=== PATIENT | female | born 1940 | race Caucasian/White ===

== ENCOUNTER 2023-05-17 10:32 | Outpatient (OUT) | payer MEDICARE, SELFPAY ==
[2023-05-17 11:11] LABS: Basophils Percent Auto 0.5 % (0.2-2.0); Eosinophils Absolute Auto 0.1 10^3/uL (0.0-0.7); Eosinophils Percent Auto 1.7 % (0.9-7.0); Hematocrit 39.9 % (36.0-48.0); Hemoglobin 13.2 g/dL (12.0-16.0); Immature Granulocytes Abs Auto 0.02 10^3/uL (0.00-0.03); Immature Granulocytes Pct Auto 0.3 % (0.0-0.5); Lymphocytes Absolute Auto 1.8 10^3/uL (1.2-3.8); Lymphocytes Percent Auto 22.9 % (20.5-60.0); Mean Corpuscular HGB Conc 33.1 g/dL (29.9-35.2); Mean Corpuscular Hemoglobin 32.1 pg (26.7-34.0); Mean Corpuscular Volume 97.1 fL (81.0-99.0); Mean Platelet Volume 10.4 fL (9.5-13.5); Monocytes Absolute Auto 0.5 10^3/uL (0.3-0.8); Monocytes Percent Auto 6.6 % (1.7-12.0); Neutrophils Absolute Auto 5.3 10^3/uL (1.4-6.5); Platelet Count 192 10^3/uL (150-450); Red Blood Count 4.11 10^6/uL (4.20-5.40); Red Cell Distribution Width 12.8 % (11.0-15.0); White Blood Count 7.8 10^3/uL (4.0-11.0)
[2023-05-17 13:13] LABS: Sodium 141 mmol/L (136-145)
[2023-05-17 13:14] LABS: Alanine Aminotransferase 30 U/L (14-59); Albumin Globulin Ratio 1.1; Alkaline Phosphatase 66 U/L (46-116); Anion Gap 14.5; Aspartate Amino Transferase 25 U/L (15-37); BUN Creatinine Ratio 29.5; Bilirubin Total 0.6 mg/dL (0.2-1.0); Calcium 9.3 mg/dL (8.5-10.1); Carbon Dioxide 27.4 mmol/L (21.0-32.0); Chloride 103 mmol/L (98-107); Estimated GFR (African America >60 (>=60); Estimated GFR (Non-African Ame >60 (>=60); Globulin 3.7 g/dL; Glucose 92 mg/dL (74-106); Potassium 3.9 mmol/L (3.5-5.1); Total Protein 7.7 g/dL (6.4-8.2)
[2023-05-17 13:15] LABS: Chol HDL Ratio 1.4; Cholesterol 122 mg/dL (<=200); HDL Cholesterol 89 mg/dL (40-60); Thyroid Stimulating Hormone 5.354 uIU/mL (0.358-3.740); Triglycerides 60 mg/dL (<=150)
== END 2023-05-17 10:33 | disposition home or self-care (01) ==
LOC: LAB 10:37
PROVIDERS: PCP Nurse Practitioner; Visit Provider Nurse Practitioner
DX: E03.9 Hypothyroidism, unspecified (principal); R53.1 Weakness; G20 Parkinson's disease; E78.00 Pure hypercholesterolemia, unspecified
CPT/HCPCS: 36415; 80053; 80061; 84439; 84443; 85025

== ENCOUNTER 2023-06-08 13:03 | Outpatient (REF) | payer MEDICARE, SELFPAY ==
[2023-06-08 13:20] LABS: Bilirubin Urine NEGATIVE (NEGATIVE); Blood Urine TRACE-I (NEGATIVE); Color Urine LT. YELLOW (YELLOW); Glucose Urine UA NEGATIVE (NEGATIVE); Ketones Urine NEGATIVE (NEGATIVE); Leukocyte Esterase Urine LARGE (NEGATIVE); Nitrite Urine POSITIVE (NEGATIVE); Protein Urine >=300 mg/dL (NEG/TRACE); pH Urine >=9.0 (5.0-9.0)
[2023-06-08 13:22] LABS: Clarity Urine SLIGHTLY CLOUDY (CLEAR)
== END 2023-06-08 13:04 | disposition home or self-care (01) ==
LOC: LAB 13:03
PROVIDERS: PCP Nurse Practitioner; Visit Provider Urology
DX: R39.9 Unspecified symptoms and signs involving the genitourinary system (principal)
CPT/HCPCS: 81003; 87086; 87150; 87186

== ENCOUNTER 2023-06-19 10:49 | Outpatient (OUT) | payer MEDICARE, SELFPAY ==
[2023-06-19 11:11] LABS: Hematocrit 38.6 % (36.0-48.0); Hemoglobin 12.8 g/dL (12.0-16.0); Mean Corpuscular HGB Conc 33.2 g/dL (29.9-35.2); Mean Corpuscular Hemoglobin 32.1 pg (26.7-34.0); Mean Corpuscular Volume 96.7 fL (81.0-99.0); Platelet Count 196 10^3/uL (150-450); Red Blood Count 3.99 10^6/uL (4.20-5.40); Red Cell Distribution Width 12.8 % (11.0-15.0); White Blood Count 6.6 10^3/uL (4.0-11.0)
[2023-06-19 12:03] LABS: Albumin Level 3.9 g/dL (3.4-5.0); Anion Gap 12.1; BUN Creatinine Ratio 23.4; Calcium 9.7 mg/dL (8.5-10.1); Carbon Dioxide 30.9 mmol/L (21.0-32.0); Chloride 101 mmol/L (98-107); Estimated GFR (African America >60 (>=60); Estimated GFR (Non-African Ame 57 (>=60); Glucose 101 mg/dL (74-106); Magnesium 1.3 mg/dL (1.8-2.4); Phosphorus 4.7 mg/dL (2.6-4.7); Sodium 140 mmol/L (136-145)
[2023-06-20 12:09] LABS: PTH, Intact 4 pg/mL (15-65)
== END 2023-06-19 10:50 | disposition home or self-care (01) ==
PROVIDERS: PCP Nurse Practitioner; Visit Provider Internal Medicine
DX: E83.51 Hypocalcemia (principal); E83.42 Hypomagnesemia; E55.9 Vitamin D deficiency, unspecified; E20.0 Idiopathic hypoparathyroidism; E87.6 Hypokalemia; N39.0 Urinary tract infection, site not specified
CPT/HCPCS: 36415; 80069; 82306; 83735; 83970; 85027

== ENCOUNTER 2023-06-28 09:53 | Outpatient (OUT) | payer MEDICARE, SELFPAY ==
[2023-06-28 12:53] LABS: Thyroid Stimulating Hormone 6.722 uIU/mL (0.358-3.740)
[2023-06-29 14:43] LABS: Free T4 1.01 ng/dL (0.76-1.46)
== END 2023-06-28 09:54 | disposition home or self-care (01) ==
LOC: LAB 09:55
PROVIDERS: PCP Nurse Practitioner; Visit Provider Nurse Practitioner
DX: E03.9 Hypothyroidism, unspecified (principal)
CPT/HCPCS: 36415; 84439; 84443

== ENCOUNTER 2023-09-25 11:45 | Outpatient (OUT) | payer MEDICARE, SELFPAY ==
[2023-09-25 13:21] LABS: Thyroid Stimulating Hormone 3.874 uIU/mL (0.358-3.740)
== END 2023-09-25 11:46 | disposition home or self-care (01) ==
LOC: LAB 11:48
PROVIDERS: PCP Nurse Practitioner; Visit Provider Nurse Practitioner
DX: E03.9 Hypothyroidism, unspecified (principal)
CPT/HCPCS: 36415; 84439; 84443

== ENCOUNTER 2024-02-27 13:20 | Outpatient (OUT) | payer MEDICARE, SELFPAY ==
[2024-02-27 14:00] LABS: Hemoglobin 12.1 g/dL (12.0-16.0); Mean Corpuscular HGB Conc 32.7 g/dL (29.9-35.2); Mean Corpuscular Hemoglobin 32.6 pg (26.7-34.0); Mean Corpuscular Volume 99.7 fL (81.0-99.0); Mean Platelet Volume 9.4 fL (9.5-13.5); Platelet Count 196 10^3/uL (150-450); Red Blood Count 3.71 10^6/uL (4.20-5.40); White Blood Count 9.9 10^3/uL (4.0-11.0)
[2024-02-27 14:07] LABS: Albumin Level 3.5 g/dL (3.4-5.0); BUN Creatinine Ratio 29.8; Calcium 9.3 mg/dL (8.5-10.1); Carbon Dioxide 29.1 mmol/L (21.0-32.0); Chloride 104 mmol/L (98-107); Estimated GFR (African America >60 (>=60); Estimated GFR (Non-African Ame 57 (>=60); Glucose 126 mg/dL (74-106); Magnesium 1.7 mg/dL (1.8-2.4); Phosphorus 3.6 mg/dL (2.6-4.7); Potassium 4.1 mmol/L (3.5-5.1); Sodium 141 mmol/L (136-145)
[2024-02-28 15:08] LABS: PTH, Intact 3 pg/mL (15-65)
== END 2024-02-27 13:21 | disposition home or self-care (01) ==
LOC: LAB 13:21
PROVIDERS: PCP Nurse Practitioner; Visit Provider Internal Medicine
DX: E55.9 Vitamin D deficiency, unspecified (principal); E20.0 Idiopathic hypoparathyroidism; E87.6 Hypokalemia
CPT/HCPCS: 36415; 80069; 82306; 83735; 83970; 85027

== ENCOUNTER 2024-04-16 12:25 | Outpatient (OUT) | payer MEDICARE, SELFPAY ==
[2024-04-16 13:35] LABS: Alanine Aminotransferase 33 U/L (14-59); Albumin Level 3.5 g/dL (3.4-5.0); Alkaline Phosphatase 62 U/L (46-116); Aspartate Amino Transferase 23 U/L (15-37); Bilirubin Direct 0.2 mg/dL (0.0-0.2); Bilirubin Total 0.6 mg/dL (0.2-1.0); Chol HDL Ratio 1.6; Cholesterol 127 mg/dL (<=200); Free T3 2.45 pg/mL (2.18-3.98); Globulin 3.5 g/dL; HDL Cholesterol 77 mg/dL (40-60); Thyroid Stimulating Hormone 7.837 uIU/mL (0.358-3.740); Triglycerides 98 mg/dL (<=150); VLDL CHOLESTEROL 19.6 mg/dL
[2024-04-16 13:58] LABS: Free T4 0.89 ng/dL (0.76-1.46)
[2024-04-16 16:58] LABS: Bilirubin Urine NEGATIVE (NEGATIVE); Blood Urine TRACE-I (NEGATIVE); Color Urine LT. YELLOW (YELLOW); Glucose Urine UA NEGATIVE (NEGATIVE); Ketones Urine NEGATIVE (NEGATIVE); Leukocyte Esterase Urine LARGE (NEGATIVE); Nitrite Urine NEGATIVE (NEGATIVE); Protein Urine NEGATIVE (NEG/TRACE); Urobilinogen Urine 0.2 EU/dL (0.2-1.0)
[2024-04-16 17:08] LABS: Urine Microscopic Indicated YES
[2024-04-16 17:09] LABS: Clarity Urine SLIGHTLY CLOUDY (CLEAR); RBC Urine 0-2 #/HPF (0-2); WBC Urine 75-100 #/HPF (NONE SEEN)
[2024-04-16 17:10] LABS: Bacteria Urine MODERATE #/HPF (NONE SEEN); Calcium Oxalate Crystals Urine RARE; Crystals Seen? Seen #/HPF (None Seen); Mucus Urine TRACE (NONE SEEN); Squamous Epithelial Cell Urine FEW #/LPF (NONE/RARE)
[2024-04-16 17:12] LABS: Cast Seen? NONE SEEN #/LPF (NONE SEEN); Urine Culture Indicated YES
[2024-04-16 17:28] LABS: Creatinine Urine Random 133.66 mg/dL (20.00-300.00); Microalbum Creatinine Ratio Ur 39.6 mg/g (0.0-29.9); Microalbumin Urine Random 5.3 mg/dL (<=30.0)
== END 2024-04-16 12:26 | disposition home or self-care (01) ==
PROVIDERS: PCP Nurse Practitioner; Visit Provider Nurse Practitioner
DX: E03.9 Hypothyroidism, unspecified (principal); I10 Essential (primary) hypertension; I25.10 Atherosclerotic heart disease of native coronary artery without angina pectoris; R82.90 Unspecified abnormal findings in urine
CPT/HCPCS: 36415; 80061; 80076; 81001; 82043; 82570; 84439; 84443; 84481; 87086; 87150; 87186

== ENCOUNTER 2024-05-06 14:27 | Outpatient (OUT) | payer MEDICARE, SELFPAY ==
[2024-05-06 15:27] LABS: Bilirubin Urine NEGATIVE (NEGATIVE); Blood Urine MODERATE (NEGATIVE); Clarity Urine SL CLOUDY (CLEAR); Color Urine BROWN (YELLOW); Glucose Urine UA NEGATIVE (NEGATIVE); Ketones Urine NEGATIVE (NEGATIVE); Leukocyte Esterase Urine MODERATE (NEGATIVE); Nitrite Urine NEGATIVE (NEGATIVE); Protein Urine TRACE mg/dL (NEG/TRACE); Specific Gravity Urine >=1.030 (1.005-1.025); pH Urine 5.5 (5.0-9.0)
[2024-05-06 16:34] LABS: Urine Microscopic Indicated YES
[2024-05-06 16:35] LABS: Bacteria Urine LARGE #/HPF (NONE SEEN); WBC Urine 50-75 #/HPF (NONE SEEN)
[2024-05-06 16:36] LABS: Calcium Oxalate Crystals Urine FEW; Cast Seen? SEEN #/LPF (NONE SEEN); Crystals Seen? Seen #/HPF (None Seen); Mucus Urine SMALL (NONE SEEN); Squamous Epithelial Cell Urine FEW #/LPF (NONE/RARE); Transitional Epi Cells Urine FEW #/LPF (NONE SEEN)
[2024-05-06 16:37] LABS: Hyaline Casts Urine RARE; Urine Culture Indicated ALREADY ORDERED
== END 2024-05-06 14:28 | disposition home or self-care (01) ==
LOC: LAB 14:29
PROVIDERS: PCP Nurse Practitioner; Visit Provider Nurse Practitioner
DX: R39.9 Unspecified symptoms and signs involving the genitourinary system (principal)
CPT/HCPCS: 81001; 87086; 87150; 87186

== ENCOUNTER 2024-06-13 13:57 | Outpatient (REF) | payer MEDICARE, SELFPAY ==
--- OUTSIDE RECORDS SUMMARY | 2024-06-13 09:10 | XMS_ITS | CCD ---
Author Organization [facility] Care Team Providers Care Health Inspector Name Role Phone DONNA FERRARI Unavailable Unavailable CARIE REINA Unavailable Unavailable Bean Cantu Primary Care Provider Puneet Raymundo Attending Provider [phone] Curtis Alcocer Attending Provider [phone] Pratik Tadeo Unavailable Unavailable Unavailable Giovanny, Aba Unavailable Carie Keith Unavailable Alyssa Weller Unavailable PRATIK TADEO Primary Care Physician Unavailable Unavailable MD Madhav Conrad Attending Provider [phone] Seema Sutherland Primary Care Provider Madhav Conrad Unavailable RODERICK KONG Attending Unavailable RODERICK KONG Admitting Unavailable RODERICK KONG Consulting Unavailable DR PRATIK TADEO Primary Care Unavailable GIOVANNY, ABA Attending Unavailable CARLYLE, DR PRATIK Meza Primary Care Unavailable GIOVANNY, ABA Consulting Unavailable GIOVANNY, ABA Admitting Unavailable GIOVANNY, ABA Attending Unavailable CARLYLE, DR PRATIK Meza Primary Care Unavailable GIOVANNY, ABA Consulting Unavailable GIOVANNY, ABA Admitting Unavailable AICHHOLZ, BILL SORTER SEEMA Consulting Unavailable CARLYLE, DR PRATIK Meza Primary Care Unavailable AICHHOLZ, BILL SORTER SEEMA Admitting Unavailable AICHHOLZ, BILL SORTER SEEMA Attending Unavailable ZOEY, DR JAYLEEN Manzo Consulting Unavailable FERRARI, DR DONNA Deleon Admitting Unavailable FERRARI, DR DONNA Deleon Attending Unavailable FERRARI, DR DONNA Deleon Consulting Unavailable AICHHOLZ, BILL SORTER SEEMA Primary Care Unavailable AICHHOLZ, BILL SORTER SEEMA Consulting Unavailable AICHHOLZ, BILL SORTER SEEMA Primary Care Unavailable AICHHOLZ, BILL SORTER SEEMA Admitting Unavailable AICHHOLZ, BILL SORTER SEEMA Attending Unavailable AICHHOLZ, BILL SORTER SEEMA Primary Care Unavailable GIOVANNY, ABA Attending Unavailable GIOVANNY, ABA Consulting Unavailable GIOVANNY, ABA Admitting Unavailable Aichholmoriah, Seema J Primary Care Provider [phone] MD Curtis Alcocer Attending Provider [phone] Koko, Seema J Primary Care Unavailable Madhav Conrad Attending Unavailable Madhav Conrad Admitting Unavailable Aichholmoriah, Seema J Primary Care Unavailable Curtis Alcocer Attending Unavailable Curtis Alcocer Admitting Unavailable Madhav Conrad Attending Unavailable Madhav Conrad Admitting Unavailable Aichholmoriah, Seema J Primary Care Unavailable Donna Ferrari Attending Unavailable FerrariDonna Referring Unavailable Naderer, Dr. Pratik Welsh Primary Care Unavai Donna Garibay Attending Unavailable FerrariDonna Referring Unavailable Naderer, Dr. Pratik Welsh Primary Care Unavajorge MOREIRAHSEEMA ISAAC Attending Unavailable GILLMORBERNARD Attending Unavailable COOK, Med P Attending Unavailable COOK, Med P Admitting Unavailable COOK, Med P Attending Unavailable COOK, Med P Referring Unavailable COOK, Med P Admitting Unavailable COOK, Med P Attending Unavailable COOK, Med P Referring Unavailable COOK, Med P Attending Unavailable COOK, Med P Referring Unavailable COOK, Med P Admitting Unavailable COOK, Med P Admitting Unavailable COOK, Med P Attending Unavailable COOK, Med P Attending Unavailable COOK, Med P Attending Unavailable COOK, Med P Referring Unavailable COOK, Med P Attending Unavailable Allergies Allergy Classification Reported Allergen(s) Allergy Type Date of Onset Reaction(s) Facility [facility]io[facility] (2 sources) [facility] (7 sources) Morphine Derivatives; Translations: [Morphine Derivatives] Allergy to drug (finding) Other -[facility] y [facility] DO Work Phone: (11 sources) fesoterodine Drug Allergy 4 dizziness/light hearded [facility] (13 sources) Morphine Drug Allergy 1 hallucinations, Hallucinating, Hallucinating, hallucinations [facility] (1 source) Morphine Drug Allergy [facility] (1 source) Morphine Drug Allergy 1 [facility] Medications Current Medications Medication Drug Class(es) Dates Sig (Normalized) Sig (Original) Acetaminophen (13 sources) Start: 07-16-2019 acetaminophen Refills(s) 0 Start Date: 07/16/19 Status: Ordered aMILoride hydrochloride 5 mg oral tablet (16 sources) Potassium-sparin g Diuretic Start: 01-06-2024 End: 03-07-2024 take 1 tablet by mouth once daily at mealtime Amiloride Active 0 .ROUTE .COMPLEX March 07, 2024 12:00pm TAKE 1 TABLET BY MOUTH WITH FOOD ONCE DAILY Start: 12-01-2022 End: 01-06-2024 amiloride 5 mg oral tablet R efills(s) 0 Start Date: 04/12/23 Status: Ordered atorvastatin 20 mg oral tablet (20 sources) HMG-CoA Reductase Inhibitor Start: 02-09-2018 take 1 tablet by mouth once daily atorvastatin 20 mg Tab 20 mg = 1 tab(s), Oral, Daily, Refills(s) 0 Start Date: 08/09/21 Status: Ordered calcitriol 0.0005 mg oral capsule (20 sources) Vitamin D3 Analog Start: 03-07-2024 End: 03-07-2024 take 0.5 ug by mouth once daily Calcitriol Active 0.5 MCG PO Daily March 07, 2024 12:00pm Start: 03-09-2021 End: 03-07-2024 take 0.25 ug by mouth once daily Calcitriol Discontinued 0.25 MCG PO Daily March 09, 2021 12:00am March 07, 2024 11:48am Start: 02-09-2018 End: 03-09-2021 take 1 tablet by mouth once daily in the morning Calcitriol Discontinued 1 TAB PO Every morning February 09, 2018 12:00am March 09, 2021 10:23am take 1 capsule by [facility] once daily Calcitriol 0.5 MCG TAKE 1 CAPSULE BY MOUTH ONCE DAILY for 90 Active take 1 capsule by mo ut once daily Calcitriol 0.25 MCG TAKE 1 CAPSULE BY MOUTH ONCE DAILY for 90 Active Calcium + D3 600-800 MG-UNIT (10 sources) take 600-800 tablets by mouth twice daily Calcium + D3 600-800 MG-UNIT 1 tablet with a meal Orally bid for 90 day(s) Active calcium carbonate 1500 mg / cholecalciferol 0.01 mg oral tablet (6 sources) Vitamin D Start: 02-18-20 End: 03-07-20 24 take 1 tablet by mouth once daily Calcium Carbonate-Vitamin D3 Active 1 TAB PO Daily March 07, 2024 12:00pm cefuroxime 250 mg oral tablet (4 sources) Cephalosporin Antibacterial Start: 12-01-19 take 1 tablet by mouth every twelve hours Cefuroxime Axetil 250 MG 1 tablet Orally every 12 hrs for 5 day(s) Nov, Active cephalexin 500 mg oral capsule (11 sources) Cephalosporin Antibacterial Start: 11-13-19 End: 11-18-19 24 take 1 capsule by mouth every twelve hours cephalexin 500 mg Cap 500 mg = 1 cap(s), Oral, q12hr, X 5 day(s), # 10 cap(s), Refills(s) 0, Pharmacy: [facility] [id number], 144, cm, 09/27/23 13:10:00 EST, Height/Length Dosing, 49, kg, 09/27/23 13:10:00 EST, Weight Dosing Start Date: 11/13/23 Stop Date: 11/18/23 Status: Ordered Start: 09-27-2023 take 1 capsule by [facility] twice daily Keflex 500 mg Cap 500 mg = 1 cap(s), Oral, BID, start one day prior to procedure., # 14 cap(s), Refills(s) 0, Pharmacy: [facility] [id number], 144, cm, 09/27/23 13:10:00 EST, Height/Length Dosing, 49, kg, 09/27/23 13:10:00 EST, Weight Dosing Start Date: 09/27/23 Status: Ordered Start: 08-16-2023 take 1 capsule by [facility] twice daily Keflex 500 mg Cap 500 mg = 1 cap(s), Oral, BID, # 14 cap(s), Refills(s) 0, Pharmacy: [facility] [id number], 144, cm, 08/16/23 10:03:00 EDT, Height/Length Dosing, 49, kg, 08/16/23 10:03:00 EDT, Weight Dosing Start Date: 08/16/23 Status: Ordered Start: 05-19-2022 End: 05-29-2022 take 1 capsule by mouth twice daily Keflex 500 mg Cap 500 mg = 1 cap(s), Oral, BID, X 10 day(s), # 20 cap(s), Refills(s) 0, Pharmacy: [facility] [id number], 144, cm, 05/19/22 14:08:00 EDT, Height/Length Dosing, 49, kg, 05/11/22 11:21:00 EDT, Weight Dosing Start Date: 05/19/22 Stop Date: 05/29/22 Status: Ordered Start: 05-11-2022 take 1 capsule by [facility] twice daily Keflex 500 mg Cap 500 mg = 1 cap(s), Oral, BID, Pt. to start 3 days prior to bladder botox injections, # 14 cap(s), Refills(s) 0, Pharmacy: [facility] [id number], 144, cm, 05/11/22 11:21:00 EDT, Height/Length Dosing, 49, kg, 05/11/22 11:21:00 EDT, Weight Dosing Start Date: 05/11/22 Status: Ordered ciprofloxacin 500 mg oral tablet (3 sources) Quinolone Antimicrobial Start: 11-13-2023 Cipro 500 mg Tab 500 mg = 1 tab(s), Oral, BID, Take twice daily x5 days starting the day prior to the procedure, # 10 tab(s), Refills(s) 0, Pharmacy: [facility] [id number], 144, cm, 09/27/23 13:10:00 EST, Height/Length Dosing, 49, kg, 09/27/23 13:10:00 EST, Weight Dosing Start Date: 11/13/23 Status: Ordered diclofenac sodium 0.01 mg/mg topical gel (11 sources) Nonsteroidal Anti-inflammatory Drug Start: 03-07-2024 Diclofenac Sodium (Voltaren Arthritis Pain) 1 % gel Active 2 GM TOPICAL As Directed May 9th, 2024 12:00am Voltaren 1 % as directed Externally Active gabapentin 100 mg oral capsule (20 sources) Anti-epileptic Agent Start: 03-07-2024 take 300 mg by mouth twice daily Gabapentin Active 300 MG PO Twice daily March 07, 2024 11:46am Start: 02-17-2021 End: 03-07-2024 gabapentin 100 mg Cap Refill s(s) 0 Start Date: 05/05/21 Status: Ordered take [address] [facility] in the morning, then take 2 capsules by mouth twice daily in the evening Gabapentin 300 MG 1 CAPSULE IN AM, 2 CAPSULES IN PM Orally TWICE A DAY Active take 2 capsules by m outh every twelve hours Gabapentin 100 MG 2 capsule Orally TWICE A DAY Active hydrOXYzine pamoate 25 mg oral capsule (20 sources) Antihistamine Start: 03-10-2021 End: 03-07-2024 hydrOXYzine pamoate 25 mg Cap Refills(s) 0 Start Date: 05/05/21 Status: Ordered Start: 03-02-2018 End: 02-17-2021 take 25 mg by mouth every six hours Hydroxyzine Pamoate Discontinued 25 MG PO Q6H 60 14 March 02, 2018 12:00am February 17, 2021 9:58am Start: 02-24-2018 End: 03-02-2018 Hydroxyzine Pamoate Disconti nued 0 .ROUTE .COMPLEX February 24, 2018 12:00am March 02, 2018 1:58pm 1 or 2 p.o. every 4-6 hours as needed muscle spasms levothyroxine sodium 0.05 mg oral tablet (20 sources) l-Thyroxine Start: 05-05-2021 take 1 tablet by mouth once daily levothyroxine 50 mcg (0.05 mg) Tab 50 mcg = 1 tab(s), Oral, Daily, # 60 tab(s), Refills(s) 0 Start Date: 05/05/21 Status: Ordered Start: 02-17-2021 take 1 ug by mouth o nce daily in the morning Levothyroxine Active 1 MCG PO Every morning February 17, 2021 9:58am Start: 02-09-2018 End: 02-17-2021 take 50 ug by mouth once daily in the morning Levothyroxine Active 50 MCG PO Every morning February 17, 2021 12:00am magnesium oxide 500 mg oral tablet (16 sources) Start: 02-17-2021 End: 03-07-2024 take 500 mg by mouth once daily Magnesium Oxide Active 500 MG PO Daily March 07, 2024 12:01pm methenamine hippurate 1000 mg oral tablet (7 sources) Start: 08-16-2023 take 0.5 g by mouth once daily methenamine hippurate 1 g oral tablet 0.5 gm = 0.5 tab(s), Oral, Daily, # 30 tab(s), Refills(s) 11, Pharmacy: [facility] [id number], 144, cm, 08/16/23 10:03:00 EDT, Height/Length Dosing, 49, kg, 08/16/23 10:03:00 EDT, Weight Dosing Start Date: 08/16/23 Status: Ordered Start: 04-12-2023 take 0.5 g by mouth once daily methenamine hippurate 1 g oral tablet 0.5 gm = 0.5 tab(s), Oral, Daily Start Date: 04/12/23 Status: Ordered Start: 01-31-2022 take 1 tablet by sumi once daily methenamine mandelate 0.5 g oral tablet 0.5 gm = 1 tab(s), Oral, Daily, # 90 tab(s), Refills(s) 3, Pharmacy: [facility] [id number], 144, cm, 12/27/21 11:31:00 EST, Height/Length Dosing, 49.1, kg, 12/27/21 11:31:00 EST, Weight Dosing Start Date: 01/31/22 Status: Ordered Multi Vitamin Daily - (4 sources) take 1 tablet by mouth once daily Multi Vitamin Daily - 1 tablet Orally Once a day Active Multi Vitamin+ (13 sources) Start: 05-05-20 Multi Vitamin+ Daily, Refill(s) 0 Start Date: 05/05/21 Status: Ordered nitrofurantoin, macrocrystals 25 mg / nitrofurantoin, monohydrate 75 mg oral capsule (4 sources) Nitrofuran Antibacterial Start: 05-05-20 take 1 capsule by mouth twice daily Macrobid 100 mg Cap 100 mg = 1 cap(s), Oral, BID, # 14 cap(s), Refills(s) 0, Pharmacy: [id number], 144, cm, 05/05/21 13:13:00 EDT, Height/Length Dosing, 43.1, kg, 05/05/21 13:13:00 EDT, Weight Dosing Start Date: 05/05/21 Status: Ordered nitroglycerin 0.4 mg sublingual tablet (17 sources) Nitrate Vasodilator Start: 02-18-20 Nitroglycerin Active 0.4 MG SUBLINGUAL every 5 to 15 minutes February 17, 2021 12:00am Start: 02-09-2018 End: 03-02-2018 Nitroglycerin Discontinued 0 .4 MG SUBLINGUAL every 5 to 15 minutes February 09, 2018 12:00am March 02, 2018 1:59pm One Daily Adults 50+ (6 sources) One Daily Adults 50+ Active polyethylene glycol 3350 99912 mg powder for oral solution (5 sources) Osmotic Laxative Start: 02-18-20 Polyethylene Glycol 3350 (Miralax) 17 gram/dose Powder Active 17 GM PO Daily February 17, 2021 12:00am microencapsulated potassium chloride 20 meq extended release oral tablet (11 sources) Start: 03-24-20 take 1 tablet by mouth every twenty-four hours Potassium Chloride ER 20 MEQ 1 tablet with food Orally Once a day for 90 day(s) February, Active Start: 03-10-2021 End: 03-07-2024 take 20 mEq by mouth once daily Potassium Chloride Act ave 20 MEQ PO Daily March 07, 2024 12:01pm silver sulfADIAZINE 10 mg/ml topical cream (1 source) Sulfonamide Antibacterial Start: 10-18-2021 Silver sulfADIAZINE 1 % 1 application Externally Once a day for 7 days Sep, Active trihexyphenidyl hydrochloride 2 mg oral tablet (20 sources) Start: 05-05-2021 trihexyphenidy l 2 mg Tab Refills(s) 0 Start Date: 05/05/21 Status: Ordered Start: 02-09-2018 take 4 mg by mouth twice daily Trihexyphenidyl Active 4 MG PO Twice daily February 09, 2018 12:00am take 2 tablets by [facility] once daily Trihexyphenidyl HCl - 2 MG Oral Tablet TAKE 2 TABLET Daily Quantity: 0 Refills: 0 Ordered: 29-Dec-2021 DO Active Completed/Discontinued Medications Medication Drug Class(es) Dates Sig (Normalized) Sig (Original) acetaminophen 325 mg / oxyCODONE hydrochloride 5 mg oral tablet (13 sources) Opioid Agonist Start: 03-10-2021 End: 03-07-2024 take 1 tablet by mouth every four hours Oxycodone-Acetamino phen (Percocet) 5-325 mg Tablet Discontinued 1 - 2 TAB PO Q4H 40 March 10, 2021 March 07, 2024 11:47am Start: 03-02-2018 End: 02-17-2021 take 1 tablet by mouth every four hours Oxycodone-Acetaminophen Discontinued 1 T AB PO Q4H 30 March 02, 2018 12:00am February 17, 2021 10:01am Start: 02-24-2018 End: 03-02-2018 Oxycodone-Acetaminophen Disc ontinued 0 .ROUTE .COMPLEX February 24, 2018 March 02, 2018 1:59pm 1 or 2 p.o. every 4-6 hour his as needed pain amoxicillin 500 mg oral capsule (3 sources) Penicillin-class Antibacterial Start: 03-08-2021 End: 03-07-2024 take 500 mg by mouth twice daily Amoxicillin Discontinued 500 MG PO Twice daily March 08, 2021 12:00am March 07, 2024 11:46am aspirin 81 mg chewable tablet (20 sources) Platelet Aggregation Inhibitor, Nonsteroidal Anti-inflammatory Drug Start: 03-10-2021 End: 03-07-2024 take 81 mg by mouth twice daily Aspirin Discontinued 81 MG PO Twice daily 28 March 10, 2021 12:00am March 07, 2024 11:46am Start: 03-03-2021 take 1 tablet by sumi th every twenty-four hours Aspirin 81 MG 1 tablet Orally Once a day for 14 day(s) February, Active Start: 02-17-2021 take 81 mg by mouth once daily at bedtime Aspirin Active 81 MG PO Daily at bedtime February 17, 2021 9:57am Start: 07-16-2019 take 81 mg by mouth once daily aspirin 81 mg, Oral, Daily, Refills(s) 0 Start Date: 07/16/19 Status: Ordered Start: 02-24-2018 End: 02-17-2021 take 81 mg by mouth twice daily Aspirin Discontinued 8 1 MG PO Twice daily 40 March 02, 2018 12:00am February 17, 2021 9:58am Start: 02-09-2018 End: 02-24-2018 take 81 mg by mouth at bedtime Aspirin Discontinued 81 MG PO Bedtime February 09, 2018 12:00am February 24, 2018 7:57am benztropine mesylate 0.5 mg oral tablet (5 sources) Anticholinergic, Antihistamine Start: 02-09-2018 End: 02-17-2021 take 0.5 mg by mouth twice daily Benztropine Discontinued 0.5 MG PO Twice daily February 09, 2018 12:00am February 17, 2021 9:56am cholecalciferol 0.025 mg oral tablet (15 sources) Vitamin D Start: 03-02-2018 End: 02-17-2021 take 2 tablets by mouth once daily Cholecalciferol (Vitamin D3) (Vitamin D3) 1,000 unit Tablet Discontinued 2000 UNIT PO Daily 60 March 02, 2018 12:00am February 17, 2021 9:57am Start: 02-09-2018 End: 03-02-2018 take 1 tablet by mouth once daily Cholecalciferol (Vitamin D3) (Vitamin D3) 2,000 unit Tablet Discontinued 2000 UNIT PO Daily 0 February 24, 2018 8:00am March 02, 2018 1:57pm hydroxychloroquine sulfate 200 mg oral tablet (1 source) Antimalarial, Antirheumatic Agent take 1 tablet by mouth once daily at mealtime Hydroxychloroquine Sulfate 200 MG Oral Tablet TAKE 1 TABLET DAILY WITH FOOD. Quantity: 0 Refills: 0 Ordered: 29-Dec-2021 DO Active lisinopril 2.5 mg oral tablet (5 sources) Angiotensin Converting Enzyme Inhibitor Start: 2017 End: 2017 take 2.5 mg by mouth once daily at bedtime Lisinopril Discontinued 2.5 MG PO Daily at bedtime February 09, 2018 12:00am March 02, 2018 1:56pm 24 hr metoprolol succinate 25 mg extended release oral tablet (10 sources) beta-Adrenergic Hay Start: 2017 End: 2020 take 12.5 mg by mouth at bedtime Metoprolol Succinate Discontinued 12.5 MG PO Bedtime 15 March 02, 2018 12:00am February 17, 2021 10:01am Start: 02-09-2018 End: 03-02-2018 take 25 mg by mouth at bedtime Metoprolol Succinate Di scontinued 25 MG PO Bedtime February 09, 2018 12:00am March 02, 2018 1:59pm omeprazole 40 mg delayed release oral capsule (6 sources) Proton Pump Inhibitor Start: 08-02-2022 End: 03-07-2024 take 40 mg by mouth once daily Omeprazole Discontinued 40 MG PO Daily August 02, 2022 12:00am March 07, 2024 11:47am Omeprazole Activ e ondansetron 4 mg disintegrating oral tablet (5 sources) Serotonin-3 Receptor Antagonist Start: 03-02-2018 End: 02-17-2021 take 4 mg by mouth every six hours Ondansetron Discontinued 4 MG PO Q6H 40 March 02, 2018 12:00am February 17, 2021 10:01am pramipexole dihydrochloride 0.125 mg oral tablet (7 sources) Nonergot Dopamine Agonist take 1 tablet by mouth three times daily Pramipexole Dihydrochloride 0.125 MG Oral Tablet TAKE 1 TABLET 3 TIMES DAILY. Quantity: 0 Refills: 0 Ordered: 29-Dec-2021 DO Active predniSONE 5 mg oral tablet (15 sources) Start: 02-17-2021 End: 03-07-2024 take 5 mg by mouth once daily Prednisone Discontinued 5 MG PO Daily February 17, 2021 12:00am March 07, 2024 11:48am take 1 tablet by mouth every oth er day predniSONE 5 MG 1 tablet Orally EVERY OTHER DAY Not-Taking vitamin b12 0.5 mg oral tablet (10 sources) Vitamin B12 Start: 03-02-2018 End: 02-17-2021 take 1 tablet by mouth once daily Cyanocobalamin (Vitamin B-12) (Vitamin B-12) 500 mcg Tablet Discontinued 500 MCG PO Daily March 02, 2018 12:00am February 17, 2021 9:58am Start: 02-09-2018 End: 03-02-2018 take 4 tablets by mouth once daily Cyanocobalamin (Vitamin B-12) (Vitamin B-12) 100 mcg Tablet Discontinued 400 MCG PO Daily February 09, 2018 12:00am March 02, 2018 1:58pm Problems Active Problems Problem Classification Problem Date Documented Da te Episodic/Chronic Abdominal pain (17 sources) Flank pain; Translations: [Unspecified abdominal pain] Onset: 04-20-2022 07-04-2019 Episodic Acute myocardial infarction (13 sources) Myocardial infarction 07-04-2019 Chronic Administrative/social admission (5 sources) Other reduced mobility; Translations: [Impaired mobility and activities of daily living] 04-16-2018 Episodic Calculus of urinary tract (13 sources) Kidney stone 04-27-2020 Episodic Coronary atherosclerosis and other heart disease (18 sources) Coronary arteriosclerosis; Translations: [Atherosclerotic heart disease of [place] coronary artery without angina pectoris] Onset: 03-24-2022 04-16-2018 Chronic Coronary atherosclerosis and other heart disease (11 sources) Past history of procedure; Translations: [Percutaneous transluminal coronary angioplasty status] Onset: 06-16-2022 03-08-2021 Episodic Deficiency and other anemia (5 sources) Anemia; Translations: [Anemia, unspecified] 04-16-2018 Episodic Disorders of lipid metabolism (14 sources) Hyperlipidemia; Translations: [Hyperlipidemia, unspecified] Onset: 03-24-2022 04-16-2018 Chronic Essential hypertension (5 sources) Hypertensive disorder; Translations: [Essential (primary) hypertension] 04-16-2018 Chronic Fluid and electrolyte disorders (12 sources) Hypokalemia; Translations: [Hypokalemia] Onset: 03-23-2022 Resolved: 03-24-2022 Episodic Gastritis and duodenitis (4 sources) Gastritis; Translations: [Gastritis, unspecified, without bleeding] Episodic Gastrointestinal hemorrhage (10 sources) Rectal hemorrhage; Translations: [Hemorrhage of anus and rectum] Episodic Genitourinary symptoms and ill-defined conditions (20 sources) Incontinence without sensory awareness; Translations: [Urge incontinence] Onset: 05-11-2022 Chronic Genitourinary symptoms and ill-defined conditions (20 sources) Microscopic hematuria; Translations: [Asymptomatic microscopic hematuria] Onset: 05-11-2022 Episodic Nonspecific chest pain (4 sources) Chest pain, unspecified; Translations: [Chest pain] Onset: 01-29-2018 03-08-2021 Episodic Nutritional deficiencies (17 sources) Vitamin D deficiency; Translations: [Vitamin D deficiency, unspecified] Onset: 09-02-2021 Resolved: 03-24-2022 Chronic Osteoarthritis (20 sources) Osteoarthritis; Translations: [Unspecified osteoarthritis, unspecified site] Onset: 09-07-2021 Resolved: 09-07-2021 Chronic Other and ill-defined cerebrovascular disease (1 source) Cerebrovascular disease, unspecified; Translations: [CEREBROVASCULAR DISEASE UNSPECIFIED] Onset: 03-24-2022 Chronic Other and unspecified benign neoplasm (10 sources) History of polyp of colon; Translations: [Personal history of colonic polyps] Episodic Other circulatory disease (5 sources) History of cerebrovascular accident; Translations: [Personal history of transient ischemic attack (TIA), and cerebral infarction without residual deficits] 04-16-2018 Episodic Other connective tissue disease (13 sources) History of total knee arthroplasty; Translations: [Presence of right artificial knee joint] 03-10-2021 Chronic Other connective tissue disease (10 sources) History of left total knee replacement; Translations: [Presence of left artificial knee joint] Chronic Other connective tissue disease (1 source) Presence of left artificial knee joint Onset: 09-07-2021 Resolved: 09-07-2021 Chronic Other diseases of bladder and urethra (20 sources) Overactive bladder 08-26-2020 Chronic Other diseases of bladder and urethra (3 sources) Detrusor overactivity; Translations: [Overactive bladder] Onset: 08-16-2023 Chronic Other endocrine disorders (11 sources) Idiopathic hypoparathyroidism; Translations: [Idiopathic hypoparathyroidism] 03-07-2024 Chronic Other endocrine disorders (3 sources) Idiopathic hypoparathyroidism; Translations: [IDIOPATHIC HYPOPARATHYROIDISM] Onset: 09-02-2021 Resolved: 03-24-2022 Chronic Other gastrointestinal disorders (10 sources) Diarrhea; Translations: [Diarrhea, unspecified] Episodic Other gastrointestinal disorders (10 sources) Constipation; Translations: [Constipation, unspecified] Episodic Other gastrointestinal disorders (1 source) Other specified symptoms and signs involving the digestive system and abdomen Episodic Other injuries and conditions due to external causes (7 sources) At risk for falls ; Translations: [History of fall] Episodic Other nervous system disorders (5 sources) Abnormal gait; Translations: [Unspecified abnormalities of gait and mobility] 04-16-2018 Episodic Other nervous system disorders (5 sources) Postoperative pain ; Translations: [Other acute postprocedural pain] 04-16-2018 Episodic Other nervous system disorders (5 sources) Tremor; Translations: [Tremor, unspecified] 04-16-2018 Episodic Other non-traumatic joint disorders (10 sources) Knee pain; Translations: [Pain in right knee] Episodic Other nutritional; endocrine; and metabolic disorders (12 sources) Hypocalcemia; Translations: [Hypocalcemia] Onset: 03-22-2022 Chronic Other nutritional; endocrine; and metabolic disorders (11 sources) Hypomagnesemia; Translations: [Hypomagnesemia] 03-07-2024 Chronic Other nutritional; endocrine; and metabolic disorders (6 sources) Hypocalcemia; Translations: [HYPOCALCEMIA] Onset: 09-02-2021 Resolved: 03-24-2022 Chronic Other nutritional; endocrine; and metabolic disorders (6 sources) Hypomagnesemia; Translations: [Disorders of magnesium metabolism] Onset: 09-02-2021 Resolved: 03-24-2022 Chronic Other nutritional; endocrine; and metabolic disorders (1 source) Lipoprotein deficiency; Translations: [LIPOPROTEIN DEFICIENCY] Onset: 06-16-2022 Chronic Other nutritional; endocrine; and metabolic disorders (10 sources) Overweight; Translations: [Overweight] Episodic Parkinson's disease (1 source) Parkinson's disease Onset: 01-29-2018 Parkinson`s disease (8 sources) Parkinson's disease; Translations: [Paralysis agitans] Onset: 03-24-2022 Chronic Residual codes; unclassified (5 sources) Patient encounter status; Translations: [Encounter for prophylactic measures, unspecified] 04-16-2018 Episodic Residual codes; unclassified (7 sources) Body mass index 20-24 - normal; Translations: [Body Mass Index between 19-24, adult] Episodic Residual codes; unclassified (13 sources) H/O: anticoagulant therapy 08-26-2020 Episodic Residual codes; unclassified (1 source) Early satiety Episodic Rheumatoid arthritis and related disease (7 sources) Rheumatoid arthritis; Translations: [Rheumatoid arthritis] Chronic Thyroid disorders (20 sources) Hypothyroidism; Translations: [Hypothyroidism, unspecified] Onset: 07-16-2022 04-16-2018 Chronic Unclassified (2 sources) Chest pain, unspecified / R07.9(ICD-9) Onset: 01-29-2018 Unclassified (1 source) 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 / I25.10(ICD-9) Onset: 01-29-2018 Unclassified (1 source) Pure hypercholesterolemia, unspecified / E78.00(ICD-9) Onset: 01-29-2018 Unclassified (1 source) Family hx of ischem heart dis and oth dis of the circ sys / Z82.49(ICD-9) Onset: 01-29-2018 Unclassified (1 source) Other forms of dyspnea / R06.09(ICD-9) Onset: 01-29-2018 Unclassified (1 source) Coronary angioplasty status / Z98.61(ICD-9) Onset: 01-29-2018 Unclassified (13 sources) Asymptomatic microscopic hematuria 08-26-2020 Unclassified (13 sources) Long-term current use of aspirin 10-14-2020 Unclassified (1 source) Pain in right foot; Translations: [Pain in right foot] Onset: 07-05-2023 Unclassified (1 source) Encounter for preprocedural laboratory examination; Translations: [Encounter for preprocedural laboratory examination] Onset: 07-29-2022 Urinary tract infections (20 sources) Urinary tract infectious disease; Translations: [Urinary tract infection, site not specified] Onset: 05-11-2022 Episodic Past or Other Problems Problem Classification Problem Date Documented Da te Episodic/Chronic Conditions associated with dizziness or vertigo (4 sources) Dizziness and giddiness; Translations: [DIZZINESS AND GIDDINESS] Onset: 07-11-2022 Episodic Neoplasms of unspecified nature or uncertain behavior (1 source) Neoplasm of unspecified behavior of bone, soft tissue, and skin Onset: 10-18-2021 Resolved: 10-18-2021 Episodic Other aftercare (1 source) assisted (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 of aspirin; Translations: [SHELTER CURRENT USE OF ASPIRIN] Onset: 03-24-2022 Episodic Other aftercare (1 source) Other termite control servicer (current) drug therapy; Translations: [OTH SHELTER CURRENT DRUG THERAPY] Onset: 03-24-2022 Episodic Other gastrointestinal disorders (1 source) Other constipation; Translations: [OTHER CONSTIPATION] Onset: 04-22-2022 Episodic Residual codes; unclassified (4 sources) Early satiety; Translations: [Early satiety] Onset: 08-02-2022 Episodic Unclassified (7 sources) Never smoked tobacco; Translations: [Never a smoker] Results Test Name Value Interpretation Reference Range Facility Lab Reportson 04-11-2024 Lab Reports [id number] [facility] Ambulatory Visit Summaryon 0 04-10-2024 Ambulatory Visit Summary NARCISO VELASQUEZ :1940 Visit Date:04/10/2024 Ambulatory Visit Instructions Your Diagnosis Urge incontinence Incontinence without sensory awareness OAB (overactive bladder) Recurrent UTI Your Care Team Attending Physician - Med MENA MD Primary Care Physician - PRATIK TADEO MD This Is Your Medications List Contact prescribing physician if questions or concerns acetaminophen amiloride (amiloride 5 mg oral tablet) aspirin atorvastatin (atorvastatin 20 mg Tab) gabapentin (gabapentin 100 mg Cap) hydrOXYzine (hydrOXYzine pamoate 25 mg Cap) levothyroxine (levothyroxine 50 mcg (0.05 mg) Tab) multivitamin (Multi Vitamin+) trihexyphenidyl (trihexyphenidyl 2 mg Tab) [Image Removed: STOP]Stop taking these medications cephalexin (Keflex 500 mg Cap) ciprofloxacin (Cipro 500 mg Tab) Procedures Performed Knee replacement (04/05/2021), Appendectomy, Bilateral tubal ligation, Colonoscopy, Excision of cataract, Hysterectomy, Knee replacement. Discharge Vitals Height 144 cm Height 57 in Weight 49 kg Weight 107.8 lb BMI 23.63 What to do next Scheduled Follow-Up Appointments Monday 1:00 PM EST With: Med MENA MD Where: [facility] Patient Educationon 04-10-20 Patient Education Urology Urinary Incontinence Urinary incontinence refers to a condition in which a person is unable to control where and when to pass urine. A person with this condition will urinate involuntarily. This means that the person urinates when he or she does not mean to. What are the causes? This condition may be caused by: ? Medicines. ? Infections. ? Constipation. ? Overactive bladder muscles. ? Weak bladder muscles. ? Weak pelvic floor muscles. These muscles provide support for the bladder, intestine, and, in women, the uterus. ? Enlarged prostate in men. The prostate is a gland near the bladder. When it gets too big, it can pinch the urethra. With the urethra blocked, the bladder can weaken and lose the ability to empty properly. ? Surgery. ? Emotional factors, such as anxiety, stress, or post-traumatic stress disorder (PTSD). ? Spinal cord injury, nerve injury, or other neurological conditions. ? Pelvic organ prolapse. This happens in women when organs move out of place and into the vagina. This movement can prevent the bladder and urethra from working properly. What increases the risk? The following factors may make you more likely to develop this condition: ? Age. The older you are, the higher the risk. ? Obesity. ? Being physically inactive. ? and childbirth. ? Menopause. ? Diseases that affect the nerves or spinal cord. ? Long-term, or chronic, coughing. This can increase pressure on the bladder and pelvic floor muscles. What are the signs or symptoms? Symptoms may vary depending on the type of urinary incontinence you have. They include: ? A sudden urge to urinate, and passing urine involuntarily before you can get to a bathroom (urge incontinence). ? Suddenly passing urine when doing activities that force urine to pass, such as coughing, laughing, exercising, or sneezing (stress incontinence). ? Needing to urinate often but urinating only a small amount, or constantly dribbling urine (overflow incontinence). ? Urinating because you cannot get to the bathroom in time due to a physical disability, such as arthritis or injury, or due to a communication or thinking problem, such as Alzheimer's disease (functional incontinence). How is this diagnosed? This condition may be diagnosed based on: ? Your medical history. ? A physical exam. ? Tests, such as: ? Urine tests. ? X-rays of your kidney and bladder. ? Ultrasound. ? CT scan. ? Cystoscopy. In this procedure, a health care provider inserts a tube with a light and camera (cystoscope) through the urethra and into the bladder to check for problems. ? Urodynamic testing. These tests assess how well the bladder, urethra, and sphincter can store and release urine. There are different types of urodynamic tests, and they vary depending on what the test is measuring. To help diagnose your condition, your health care provider may recommend that you keep a log of when you urinate and how much you urinate. How is this treated? Treatment for this condition depends on the type of incontinence that you have and its cause. Treatment may include: ? Lifestyle changes, such as: ? Quitting smoking. ? Maintaining a healthy weight. ? Staying active. Try to get 150 minutes of moderate-intensity exercise every week. Ask your health care provider which activities are safe for you. ? Eating a healthy diet. ? Avoid high-fat foods, like fried foods. ? Avoid refined carbohydrates like white bread and white rice. ? Limit how much alcohol and caffeine you drink. ? Increase your fiber intake. Healthy sources of fiber include beans, whole grains, and fresh fruits and vegetables. ? Behavioral changes, such as: ? Pelvic floor muscle exercises. ? Bladder training, such as lengthening the amount of time between bathroom breaks, or using the bathroom at regular intervals. ? Using techniques to suppress bladder urges. This can include distraction techniques or controlled breathing exercises. ? Medicines, such as: ? Medicines to relax the bladder muscles and prevent bladder spasms. ? Medicines to help slow or prevent the growth of a man's prostate. ? Botox injections. These can help relax the bladder muscles. ? Treatments, such as: ? Using pulses of electricity to help change bladder reflexes (electrical nerve stimulation). ? For women, using a manager medical device to prevent urine leaks. This is a small, tampon-like, disposable device that is inserted into the urethra. ? Injecting collagen or carbon beads (bulking agents) into the urinary sphincter. These can help thicken tissue and close the bladder opening. ? Surgery. Follow these instructions at home: Lifestyle ? Limit alcohol and caffeine. These can fill your bladder quickly and irritate it. ? Keep yourself clean to help prevent odors and skin damage. Ask your health care provider about special skin creams and cleansers that can protect the skin from urine. ? (more content not included)... Normal [facility] Urology Office/Clinic Noteon 04-10-2024 Urology Office/Clinic Note Chief Complaint follow up to botox [facility] Staff 83 year old female here for follow up to botox done 02/26/24 Previous Dx: Urge incontinence, Incontinence without sensory awareness, OAB, Recurrent uti Dysuria: no Incomplete bladder emptying: no Hematuria: no Frequency: no Urgency: no Nocturia: no Stream:good strong stream Leaking: only at night Post void dripping: no Wearing pads/ Depends: wears a liner during the day and depends during the night Urge incontinence: mild dribbling- better sine botox Stress incontinence: no Incontinence without Sensory Awareness: severe at times only at night, states she will go several days without leaking and then will soak through her depends. Abdominal pain: no Flank pain: no Sexual complaints:no History of Present Illness Tests reviewed: reviewed UA. I have reviewed the previous health record information and history for this patient from Dr. Mena. I have reviewed and verified the staff HPI to be accurate for this encounter. There have been no associated fever, chills, flank pain, or blood in the urine. Denies any urinary infections since last encounter. Review of Systems PHQ Score Initial Depression Screen Score: 0 SCORE ROS - Provider Constitutional: denies weight loss, denies hot flashes. Eyes: denies eye problems. Gastrointestinal: denies nausea, denies vomiting. Cardiovascular: denies chest pain or angina. Integumentary: no dryness Musculoskeletal: denies musculoskeletal symptoms. ENMT: denies otolaryngeal symptoms. Respiratory: no shortness of breath. Heme/Lymph: denies easy bleeding tendency, denies easy bruising tendency. Psychiatric: no confusion, no anxiety. Genitourinary: See HPI. Physical Exam Vitals & Measurements HT: 57 in HT: 144 cm WT: 49 kg WT: 107.8 lb BMI: 23.63 General Appearance: alert , no acute distress, well nourished, well developed female. Assessment/Plan Portions of this record may have been created with voice recognition artificial intelligence software, specifically [employer] and or [employer]. Substitutions may have occurred due to the inherent limitations of voice recognition and artificial intelligence software. 1. Urge incontinence (N39.41: Urge incontinence) Botox 100 units 05/23/22 and 05/11/23 100 units. Botox 150 units 02/26/24. PVR 08/16/23 0 mL. PVR 04/10/24 32 mL. Reports she is no longer having leakage during the day, only during the night. Pleased with recent Botox. Will follow up in 6 months. Pt to call if Botox starts to fail and shes wishes to schedule repeat procedure. -Cont sx monitoring -Follow up in 6 months 2. Incontinence without sensory awareness (N39.42: Incontinence without sensory awareness) Only leaks during the night. Wakes up and her depends are soaked, however not bothersome because she gets a full nights rest. See #1. 3. OAB (overactive bladder) (N32.81: Overactive bladder) See #1. 4. Recurrent UTI (N39.0: Urinary tract infection, site not specified) UCx: 05/19/23 - >100k E Coli, resistant to tetracycline 06/08/23 - >100k Proteus Mirabilis, resistant to Macrobid. Tx'd w/ Keflex 08/16/23 - >100k Klebsiella Oxytoca, tx'd w/ keflex 11/13/23 - neg Latest kidney fxn on file 02/27/24: BUN 28, Cr 0.94, eGFR 57. Ordered by Dr. Moon. Unable to tolerate Methenamine, causes upset stomach. UA today shows trace-intact blood and large leuks. Asx. Overall the patient is is happy with the results of the Botox injection. She still leaking at night but actually is sleeping through it and wakes up with a full pad. Daytime control is much better. Given previous urine cultures and current urinalysis, I believe she is colonized but this may not represent a true infection. She is essentially asymptomatic. Follow-up in 6 months recommended. When it is time for her next Botox 150 units will be recommended. Follow-up With When Contact Information TRINA WATSON, Med Hilario, URL [address] [place], [place] [id number]- Additional Instructions: 6 mos Patient Education Urinary Incontinence I, Jenny Luna, personally scribed for Dr. Mena on 04/10/2024 10:25:32. . Documentation recorded by the scribeJenny, accurately reflects the services(s) I performed and decisions made by me. Authenticated by Dr. Mena on 04/10/2024 10:26:50. 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 Normal [facility] Comment on above: Result Comment: Elec tronically Signed By: Med MENA MD\.br\Date and Time Signed: 04/10/24 10:27 EDT\.br\Electronically Co-Signed By: Jenny Luna.br\Date and Time Co-Signed: 04/10/24 10:25 EDT Consent for Procedure/Surger yon 03-13-2024 Consent for Procedure/Surgery [id number] [facility] Consent for Procedure/Surgery [id number] FF Normal [facility] Erythrocyte distribution wid th Auto (RBC) [Ratio]on 02-27-2024 Erythrocyte distribution width (RBC) [Ratio] 13.0 % 11.0-15.0 [facility] Estimated glomerular filtrat ion rate (GFR) non- Americanon 02-27-2024 GFR/1.73 sq M.predicted among non-blacks MDRD (S/P/Bld) [Vol rate/Area] 57 mL/min/{1.73_m2} >=60 [facility] Hematocrit Auto (Bld) [Volum e fraction]on 02-27-2024 Hematocrit (Bld) [Volume fraction] 37.0 % 36.0-48.0 [facility] Hemoglobin [Mass/volume] in Bloodon 02-27-2024 Hemoglobin (Bld) [Mass/Vol] 12.1 g/dL 12.0-16.0 [facility] Laboratory - Chemistry and C hemistry - challengeon 02-27-2024 Albumin [Mass/Vol] 3.5 g/dL 3.4-5.0 [facility] Calcium [Mass/Vol] 9.3 mg/dL 8.5-10.1 [facility] Chloride [Moles/Vol] 104 mmol/L 98-107 [facility] CO2 [Moles/Vol] 29.1 mmol/L 21.0-32.0 [facility] Creatinine [Mass/Vol] 0.94 mg/dL 0.55-1.02 [facility] GFR/1.73 sq M.predicted MDRD (S/P/Bld) [Vol rate/Area] mL/min/{1.73_m2} >=60 [facility] Glucose [Mass/Vol] 126 mg/dL 74-106 [facility] Magnesium [Mass/Vol] 1.7 mg/dL 1.8-2.4 [facility] Potassium [Moles/Vol] 4.1 mmol/L 3.5-5.1 [facility] Sodium [Moles/Vol] 141 mmol/L 136-145 [facility] Urea nitrogen [Mass/Vol] 28.0 mg/dL 7.0-18.0 [facility] Urea nitrogen/Creatinine [Mass ratio] 29.8 mg/mg [facility] Leukocytes [#/volume] correc db for nucleated erythrocytes in Blood by Automated counon 02-27-2024 WBC corrected for nucl RBC Auto (Bld) [#/Vol] 9.9 10 3/uL 4.0-11.0 [facility] MCH Auto (RBC) [Entitic mass ]on 02-27-2024 MCH (RBC) [Entitic mass] 32.6 pg 26.7-34.0 [facility] MCHC Auto (RBC) [Mass/Vol]on 02-27-2024 MCHC (RBC) [Mass/Vol] 32.7 g/dL 29.9-35.2 [facility] MCV Auto (RBC) [Entitic vol] on 02-27-2024 MCV (RBC) [Entitic vol] 99.7 fL 81.0-99.0 [facility] No Panel Informationon 02-26 25-Hydroxy Vitamin D Total 34.4 ng/mL [facility] Comment on above: <20 ng/mL Vit D defi cient20-<30 ng/mL Vit D [id number] ng/mL Vit D sufficient>100 ng/mL Potential Toxicity Parathyroid Hormone (Intact) 3 pg/mL 15-65 [facility] Comment on above: Performed at: - [facility] [address] [id number] Director: Conrado Gates PhD, Phone: [phone] Phosphorus Level 3.6 mg/dL 2.6-4.7 [facility] Platelet mean volume Auto (B ld) [Entitic vol]on 02-27-2024 Platelet mean volume (Bld) [Entitic vol] 9.4 fL 9.5-13.5 [facility] Platelets Auto (Bld) [#/Vol] on 02-27-2024 Platelets (Bld) [#/Vol] 196 10 3/uL 150-450 [facility] RBC Auto (Bld) [#/Vol]on RBC (Bld) [#/Vol] 3.71 10 6/uL 4.20-5.40 [facility] Serum or plasma anion gap de terminationon 02-27-2024 Anion gap [Moles/Vol] 12.0 mmol/L [facility] Consent for Treatmenton 01-29 Consent for Treatment [id number] FF Normal [facility] Inpatient Patient Summaryon 02-26-2024 Inpatient Patient Summary [place] [address] Clinical Summary Person Information Name: NARCISO VELASQUEZ Age: 83 Years : 1940 Sex: Female PCP: PRATIK TADEO MD Marital Status: Race: White Ethnicity: Non- or Language: Citizen Of [place] Visit Id: Visit Reason: URINARY INCONTINENCE Speciality: Acuity: Enc Type: Outpatient Med Service: Surgery Arrival: 02/26/2024 12:39:14 Discharge: Dispo Type: Address: [address] [place] [id number] Provider Notes: Diagnosis: Problems Active Incontinence without sensory awareness Recurrent UTI Incomplete bladder emptying Stress incontinence UTI (urinary tract infection) Urinary retention UTI symptoms Overactive bladder Aspirin long-term use Weak urine stream Weak urinary stream 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 control servicer 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 Mixed incontinence Frequency of urination OAB (overactive bladder) Asymptomatic microscopic hematuria Nocturia Dysuria Kidney stone Urgency of urination Urge incontinence Urinary urgency Myocardial infarction Flank pain Urge incontinence of urine Incontinence without sensory awareness Smoking Status: Functional Status: Sensory Deficits: History of Falls: Mobility Assistance Prior to Admission: ADLs: Current Level of Assistance for Self-Care/Mobility: Cognitive Status: Allergies No Known Allergies Laboratory or Other Results This Visit (last charted value for your 02/26/2024 visit) No Laboratory or Other Results This Visit Measurements: Height: 144 cm Weight: Blood Pressure: Not Valued / Not Valued BMI: Procedures No Procedures Documented Immunizations No Immunizations Documented This Visit Final Med List: acetaminophen amiloride (amiloride 5 mg oral tablet) aspirin 81 Milligram By Mouth every day. atorvastatin (atorvastatin 20 mg Tab) 1 Tablets By Mouth every day. cephalexin (Keflex 500 mg Cap) 1 Capsules By Mouth 2 times a day. start one day prior to procedure.. Refills: 0. ciprofloxacin (Cipro 500 mg Tab) 1 Tablets By Mouth 2 times a day. Take twice daily x5 days starting the day prior to the procedure. Refills: 0. gabapentin (gabapentin 100 mg Cap) hydrOXYzine (hydrOXYzine pamoate 25 mg Cap) levothyroxine (levothyroxine 50 mcg (0.05 mg) Tab) 1 Tablets By Mouth every day. multivitamin (Multi Vitamin+) every day. trihexyphenidyl (trihexyphenidyl 2 mg Tab) Care Team Members: Attending Physician: Med MENA MD Consulting Physician: Referring Physician: Med MENA MD Follow up: With: Address: When: [facility], [address], [place] [address] Business (1) Within 6 weeks Comments: Call for followup appointment, with a bladder scan at that visit to check for bladder emptying. Patient Education Information: EU - Cystoscopy with Botox Injection Discharge Instructions (Custom) [facility] IntraOperative Documentson 0 02-26-2024 IntraOperative Documents [id number] FF [facility] Main OR Intraoperative Recor don 02-26-2024 Main OR Intraoperative Record IntraOp Document Type FTURO Summary Primary Physician: Med MENA MD Finalized Date/Time: 02/26/24 13:43:34 Pt. Name: NARCISO VELASQUEZ /Sex: 1940 Female Med Rec #: [id number] Physician: Med MENA MD Financial #: [id number] Pt. Type: O Room/Bed: / Admit/Disch: 02/26/24 12:39:14 - Institution: Case Times FTURO Entry 1 Patient Times In Room 02/26/24 13:30:00 Out Room 02/26/24 13:51:00 Procedure Times Start 02/26/24 13:33:00 Stop 02/26/24 13:46:00 Anesthesia Times Last Modified By: Sabrina PETERS, JASPREET, Patricia 02/26/24 13:43:23 Case Attendance FTURO Entry 1 Entry 2 Entry 3 Case Attendee Med MENA MD, RN, MEEOR, Krishna Moctezuma Role Performed Surgeon - Primary Vegetable Loader Machine Operator - Primary Scrub - Primary Time In 02/26/24 13:30:00 02/26/24 13:30:00 02/26/24 13:30:00 Time Out 02/26/24 13:51:00 02/26/24 13:51:00 02/26/24 13:51:00 Procedure CYSTOSCOPY LOCAL BOTOX CYSTOSCOPY LOCAL BOTOX CYSTOSCOPY LOCAL BOTOX INJECTION(.) INJECTION(.) INJECTION(.) Comments Last Modified By: Sabrina RN, CNOR, Sabrina RN, MEEOR, Sabrina PETERS, MEEOR, Patricia 02/26/24 Patricia 02/26/24 Patricia 02/26/24 13:43:24 13:43:24 13:43:24 Surgical Procedures FTURO Entry 1 Procedure Description Procedure CYSTOSCOPY LOCAL BOTOX Modifiers . INJECTION Surgeon Description CYSTO 150 UNITS BOTOX Primary Procedure Yes Primary Surgeon Med MENA MD Start 02/26/24 13:33:00 Stop 02/26/24 13:46:00 Anesthesia Type Local Surgical Service Urology Wound Class 2 - Clean-Contaminated Last Modified By: Sabrina PETERS, MEEPatricia CANCINO 02/26/24 13:43:25 General Comments: botox 100 units out date03/24 lot [id number] botox 50 units outdate 12/25 lot [id number] General Case Data FTURO Pre-Care Text: Classifies surgical wound, implements aseptic technique, initiates traffic control Entry 1 Case Information OR URO 1 FT Case Level None Wound Class 2 - Clean-Contaminated Specialty Urology Preop Diagnosis URINARY INCONTINENCE Postop Same As Preop Yes Postop Diagnosis URINARY INCONTINENCE Outcomes Met? Yes Last Modified By: JASPREET Bennett RN, Ruthann 02/26/24 13:00:40 Post-Care Text: The patient is free from signs and symptoms of infection EU IntraOp - FTURO Pre-Care Text: Implements protective measures prior to operative or invasive procedure, confirms identity before the operative or invasive procedure, verifies operative procedure, surgical site, and laterality Entry 1 EU Perioperative Protocols Procedure(s) CYSTOSCOPY LOCAL BOTOX Patient Identity Birthday, ID Band INJECTION(.) Verified (select at Check, Patient least 2): Participation Consents / H and P HandP, Surgery/Procedure Operative Site N/A Verified Consent Marking Verified Surgical Site Yes Laterality Verified n/a Verified Procedure Verified Yes Correct Patient Yes Position Verified Availability Equipment, Medication Time Out JASPREET Bennett RN, Verified (If Participants TRINA Gomez MD, Applicable) Rhianna Ramirez Kendall R Time Out Complete 02/26/24 13:33:00 Allergies Reviewed? Yes Allergies Reviewed Self/Patient With Body Position Low Lithotomy Prep Area perineal area Prep Agents Betadine Solution Skin. Condition Unable to Visualize Additional None Specimens Collected Vitals - EU Blood Pressure Pulse Respirations SPO2 EBL 0 IandO - EU Total Intake 0 mL Total Output 0 mL Outcomes Met? Yes Last Modified By: JASPREET Bennett RN, Ruthann 02/26/24 13:41:51 Post-Care Text: The patient is free from signs and symptoms of injury caused by extraneous objects Sign Out FTURO Entry 1 Before Patient Leaves OR Nurse verbally Yes Nurse verbally n/a confirms with the confirms with the team the name of team that the procedure(s) instrument, sponge, recorded and needle counts are correct (or N/A) Nurse verbally n/a Nurse verbally n/a confirms with the confirms with the team how the team whether there specimen is labeled are any equipment (including patient problems to be name), if applicable addressed Sign Out Complete 02/26/24 13:47:00 Last Modified By: JASPREET Bennett RN, Ruthann 02/26/24 13:43:31 Case Comments Finalized By: JASPREET Bennett RN, Ruthann Document Signatures Signed By: JASPREET Bennett RN, Ruthann 02/26/24 13:[address] [facility] Main OR Preoperative Recordo n 02-26-2024 Main OR Preoperative Record Holding Area Document Type FTURO Summary Primary Physician: Med MENA MD Finalized Date/Time: 02/26/24 13:13:19 Pt. Name: SCOTT VELASQUEZMANDY Tellez./Sex: 1940 Female Med Rec #: [id number] Physician: Med MENA MD Financial #: [id number] Pt. Type: O Room/Bed: / Admit/Disch: 02/26/24 12:39:14 - Institution: Case Times Holding FTURO Pre-Care Text: Verifies consent for planned procedure, identifies individual values and wishes concerning care, includes family members in perioperative teaching Secures patient's records' belongings, and valuables, maintains patient's dignity and privacy, and maintains patient confidentiality Entry 1 In Holding 02/26/24 13:08:00 Outcomes Met? Yes Last Modified By: Dorie Logan RN 02/26/24 13:11:17 Post-Care Text: The patient participates in decisions affecting his or her perioperative plan of care The patient's right to privacy is maintained Surgery Checklist FTURO Entry 1 Patient Birthday, ID Band Procedure History and Physical, Identification: Check, Patient Verification: Surgical Consent, With Participation Patient NPO after Midnight: n/a Personal Items: Cataract Lens Implant, Dentures, Glasses, Jewelry Personal Items bilateral cataract lens Limitations: up with cane Comment: implants, upper and lower dentures, glasses; ring x 1 Complaints of Pain: No Pain Comment: 0/10 Skin Integrity Dry, Warm Vitals - EU Blood Pressure 143/78 Pulse 80 bpm Respirations 16 br/min SPO2 98 % Additional Other (See Comment) Specimens Comment urine dipstick Specimens Collected RN Reviewed Yes Last Modified By: Dorie Logan RN 02/26/24 13:13:15 Finalized By: Dorie Logan RN Document Signatures Signed By: Dorie Logan RN 02/26/24 13:[address] [facility] Operative Reporton Operative Report Patient: STEPHANIA VELASQUEZ Age: 83 years Sex: Female : 1940 Associated Diagnoses: None Author: Med MENA MD Procedure Operative Information Details: Date/ Time: 02/26/2024 13:46:00. Pre-Op Dx: Overactive bladder (YZA65-KF N32.81, Working, Medical), Urgency incontinence (MQS02-OY N39.41, Working, Medical). Post-Op Dx: Same. Anesthesia Type: Local. Procedure: Local Cystoscopy with botox injection. Complications: None. Risks/Benefits/Informed Consent: Surgical risks, benefits, details of the procedure have been explained to the patient, Full informed consent has been obtained. Intraoperative Information Prepped: Patient is brought back to the endoscopy suite, Female Prep (Patient is placed in modified dorso/lithotomy position, 5 cc 2% Xylocaine Jelly is placed per Urethra, Straight cath inserted to obtain urine specimen, 60 cc 2% Xylocaine liquid inserted into bladder, 5 additional cc 2% Xylocaine Jelly is placed per Urethra, Patient in sitting position for 20 min dwell), Urine Specimen Results Negative for infection, Patient prepped in the usual fashion with Betadine solution, 10 cc 2% Xylocaine Jelly is placed per Urethra, After waiting several minutes the Cystoscope is introduced. Procedure: The trigone was identified and evaluated, The bladder was instilled with enough saline to achieve adequate visualization for the injections, The needle was inserted approximately 2 mm into the detrusor spaced approximately 1 cm apart, A total of 25 injections were instilled in a row across the posterior aspect of the bladder with 15 across the more inferior portion and 10 across the more superior portion to instill 150 units of Botox. These were all injected about 1 cm apart. The Urethra is: Normal, 150 units BOTOX. . Botox. The ureteral orifices: Show efflux of clear urine. The Bladder is: Normal, Trabeculated Mild (1), No tumor, no stones, mucosa without inflammatory changes. . Devices Implanted: None. Removal: Cystoscope is removed, The patient tolerated it well. Postoperative Information Discharge: Patient is discharged home with antibiotic coverage, Follow up arranged, F/U six weeks. Normal [facility] Comment on above: Result Comment: Elec tronically Signed By: Med MENA MD\.br\Date and Time Signed: 02/26/24 13:51 EDT Outpatient Surgery Discharge Instructionon 02-26-2024 Outpatient Surgery Discharge Instruction [id number] Normal [facility] Outpatient Surgery Discharge Instruction [address] [address] Patient Discharge Instructions PERSON INFORMATION Name: NARCISO VELASQUEZ Date of : 1940 Current Date: 02/26/2024 13:46:21 PHYSICIANS Admitting Physician: Med MENA MD Comment: Discharge Diagnosis: NARCISO VELASQUEZ has been given the following list of follow-up instructions, prescriptions, and patient education materials: IF UNABLE TO CONTACT YOUR PHYSICIAN AND YOU FEEL IT IS AN EMERGENCY, GO TO THE NEAREST EMERGENCY ROOM OR CALL 911 Follow up: With: Address: When: Med MENA [address] [place] [address], [address], [place] [id number] [facility] (1) Within 6 weeks Comments: Call for followup appointment, with a bladder scan at that visit to check for bladder emptying. Comment: PATIENT EDUCATION INFORMATION Instructions: Cystoscopy with Botox injection ? Voiding after the procedure: there may be some pain, burning, urgency, frequency and blood tinged urine following the procedure. These symptoms usually resolve within 2-5 days. Drink the amount of fluid it takes to keep the urine pink to yellow or clear in color. Drinking enough water and fluids will help to ease any discomfort after your procedure. ? It may take a few days to a week to notice a gradual improvement in the overactive bladder symptoms. ? If you are having problems that seem out of the ordinary, please call. ? If unable to contact your physician and you feel it is an emergency, go to the nearest emergency room or call 911 ? Do not lift more than fifteen pounds for 1-2 days. If you see a lot of blood, you probably did too much. ? Diet ? you may resume your normal diet. ? Pain control ? You may take extra strength Tylenol or Motrin for discomfort. ? Call if you have a fever over 100 degrees. RON Haley PATRICIA A, have received the attached patient education materials/instructions and have verbalized understanding: May we do a follow up call? Yes No I was present when discharge instructions were given Patient Signature Date Clinican/Nurse Signature Date You may receive a survey from [employer] asking you to rate your care experience. Your feedback is important and will help us understand what we do well and how we can improve the quality of care we provide to you, your loved ones and our community. It?s an honor to serve you. Thank you for choosing [facility] Normal [facility] C Urineon 11-16-2023 Bacteria identified Cx Nom (U) Microbiology PROCEDURE: Urine Culture [R1] SOURCE: U CleanCatch BODY SITE: COLLECTED DATE/TIME: 11/13/2023 14:51 EST RECEIVED DATE/TIME: 11/14/2023 17:50 EST START DATE/TIME: 11/14/2023 17:51 EST FREE TEXT SOURCE: TRINA WATSON, Med MENA MD, Med Hilario FINAL REPORTS Final Report [] Verified Date/Time: 11/16/2023 06:55 EST 3,000 cfu/ml Mixed skin contaminants Performing Locations R1: This test was performed at: [facility], [address] [place] [address], [id number] , [place], [facility] Comment on above: Performed By: #### [id number] ####[facility] [address] [place] [address] Consent for Treatmenton 10-30 Consent for Treatment [id number] F Normal [facility] Inpatient Patient Summaryon 11-13-2023 Inpatient Patient Summary [address] [address] Clinical Summary Person Information Name: NARCISO VELASQUEZ Age: 82 Years : 1940 Sex: Female PCP: PRATIK TADEO MD Marital Status: Race: White Ethnicity: Non- or Language: Citizen Of [place] Visit Id: Visit Reason: URINARY INCONTINENCE Speciality: Acuity: Enc Type: Outpatient Med Service: Surgery Arrival: 11/13/2023 13:31:33 Discharge: Dispo Type: Address: [address] [place] [id number] Provider Notes: Diagnosis: Problems Active Incontinence without sensory awareness Recurrent UTI Incomplete bladder emptying Stress incontinence UTI (urinary tract infection) Urinary retention UTI symptoms Overactive bladder Aspirin long-term use Weak urine stream Weak urinary stream Hx of assisted 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 thinners Mixed incontinence Frequency of urination OAB (overactive bladder) Asymptomatic microscopic hematuria Nocturia Dysuria Kidney stone Urgency of urination Urge incontinence Urinary urgency Myocardial infarction Flank pain Urge incontinence of urine Incontinence without sensory awareness Smoking Status: Functional Status: Sensory Deficits: History of Falls: Mobility Assistance Prior to Admission: ADLs: Current Level of Assistance for Self-Care/Mobility: Cognitive Status: Allergies No Known Allergies Laboratory or Other Results This Visit (last charted value for your 11/13/2023 visit) No Laboratory or Other Results This Visit Measurements: Height: Weight: Blood Pressure: Not Valued / Not Valued BMI: Procedures No Procedures Documented Immunizations No Immunizations Documented This Visit Final Med List: acetaminophen amiloride (amiloride 5 mg oral tablet) aspirin 81 Milligram By Mouth every day. atorvastatin (atorvastatin 20 mg Tab) 1 Tablets By Mouth every day. cephalexin (Keflex 500 mg Cap) 1 Capsules By Mouth 2 times a day. start one day prior to procedure.. Refills: 0. gabapentin (gabapentin 100 mg Cap) hydrOXYzine (hydrOXYzine pamoate 25 mg Cap) levothyroxine (levothyroxine 50 mcg (0.05 mg) Tab) 1 Tablets By Mouth every day. multivitamin (Multi Vitamin+) every day. trihexyphenidyl (trihexyphenidyl 2 mg Tab) Care Team Members: Attending Physician: Med MENA MD Consulting Physician: Referring Physician: Med MENA MD Follow up: With: Address: When: Med MENA [address] [place] [address], [address], [place] [phone] [facility] (1) Comments: As you know we were unable to do the Botox injection into the bladder today. It appears you have an active urinary tract infection. A urine culture will be obtained and I will put you on antibiotics and send this to the pharmacy. We will have to reschedule the Botox. I know that we had tried phentermine in the past but you are unable to tolerate it. Other none medicine options to try to decrease the frequency of urinary tract infections include cranberry (either juice or extract), probiotics, and d-mannose. You may have to research how to get the mannose and I have many patients who get this online and have it delivered to their home. You can get the probiotics locally and the cranberry is self-explanatory. My sales branch manager will call you to get you back on the books for the Botox injection. Patient Education Information: Franca [facility] Main OR Preoperative Recordo n 11-13-2023 Main OR Preoperative Record Holding Area Document Type FTURO Summary Primary Physician: Finalized Date/Time: 11/13/23 16:40:45 Pt. Name: NARCISO VELASQUEZ Derrick WeberB./Sex: 1940 Female Med Rec #: [id number] Physician: Med MENA MD Financial #: [id number] Pt. Type: O Room/Bed: / Admit/Disch: 11/13/23 13:31:33 - Institution: Case Times Holding FTURO Pre-Care Text: Verifies consent for planned procedure, identifies individual values and wishes concerning care, includes family members in perioperative teaching Secures patient's records' belongings, and valuables, maintains patient's dignity and privacy, and maintains patient confidentiality Entry 1 In Holding 11/13/23 14:30:00 Outcomes Met? Yes Last Modified By: JASPREET Bennett RN, Ruthann 11/13/23 14:38:20 Post-Care Text: The patient participates in decisions affecting his or her perioperative plan of care The patient's right to privacy is maintained Surgery Checklist FTURO Entry 1 Patient Birthday, ID Band Procedure History and Physical, Identification: Check, Patient Verification: Surgical Consent, With Participation Patient NPO after Midnight: n/a Personal Items: Cataract Lens Implant, Dentures, Jewelry Personal Items clothes/ glasses Limitations: cane Comment: Complaints of Pain: No Skin Integrity Cool Vitals - EU Blood Pressure 116/59 Pulse 150 bpm Respirations 16 br/min SPO2 79 % Additional Other (See Comment) Specimens Comment urine culture Specimens Collected RN Reviewed Yes Last Modified By: JASPREET Bennett RN, Ruthann 11/13/23 14:41:43 General Comments: case canceled after Dr reviewed the urine testing results. patient also had a fast heart beat, talked with patient and her and he said they would call her mortgage broker right away [facility]. Finalized By: JASPREET Bennett RN, Ruthann Document Signatures Signed By: JASPREET Bennett RN, Ruthann 11/13/23 14:43 JASPREET Bennett RN, Ruthann 11/13/23 14:43 JASPREET Bennett RN, Ruthann 11/13/23 16:[address] [facility] Outpatient Surgery Discharge Instructionon 11-13-2023 Outpatient Surgery Discharge Instruction [address] [address] Patient Discharge Instructions PERSON INFORMATION Name: NARCISO VELASQUEZ Date of : 1940 Current Date: 11/13/2023 14:47:25 PHYSICIANS Admitting Physician: Med MENA MD Comment: Discharge Diagnosis: NARCISO VELASQUEZ has been given the following list of follow-up instructions, prescriptions, and patient education materials: IF UNABLE TO CONTACT YOUR PHYSICIAN AND YOU FEEL IT IS AN EMERGENCY, GO TO THE NEAREST EMERGENCY ROOM OR CALL 911 Follow up: With: Address: When: Med MENA [address] [place] [address], [address], [address] [address] Business (1) Comments: As you know we were unable to do the Botox injection into the bladder today. It appears you have an active urinary tract infection. A urine culture will be obtained and I will put you on antibiotics and send this to the pharmacy. We will have to reschedule the Botox. I know that we had tried phentermine in the past but you are unable to tolerate it. Other none medicine options to try to decrease the frequency of urinary tract infections include cranberry (either juice or extract), probiotics, and d-mannose. You may have to research how to get the mannose and I have many patients who get this online and have it delivered to their home. You can get the probiotics locally and the cranberry is self-explanatory. My sales branch manager will call you to get you back on the books for the Botox injection. Comment: PATIENT EDUCATION INFORMATION Instructions: I, NARCISO VELASQUEZ, have received the attached patient education materials/instructions and have verbalized understanding: May we do a follow up call? Yes No I was present when discharge instructions were given Patient Signature Date Clinican/Nurse Signature Date You may receive a survey from [employer] asking you to rate your care experience. Your feedback is important and will help us understand what we do well and how we can improve the quality of care we provide to you, your loved ones and our community. It?s an honor to serve you. Thank you for choosing [facility] Normal [facility] Patient Educationon 11-13-19 Patient Education Normal [facility] Progress Note-Physicianon Progress Note-Physician Patient: NARCISO VELASQUEZ Age: 82 years Sex: Female : 1940 Associated Diagnoses: None Author: TRINA WATSON, Med Hilario Subjective ROS & PFSH Reviewed I have reviewed the ROS and PFSH from the procedural information filed today with no changes (or with the following changes).. Health Status Allergies: Allergic Reactions (Selected) No Known Allergies, Allergies (1) Active Reaction No Known Allergies None Documented Current medications: (Selected) Prescriptions Prescribed Keflex 500 mg Cap: 500 mg = 1 cap(s), Oral, BID, start one day prior to procedure., # 14 cap(s), Refills(s) 0, Pharmacy: [facility] [id number], 144, cm, 09/27/23 13:10:00 EST, Height/Length Dosing, 49, kg, 09/27/23 13:10:00 EST, Weight Dosing Documented Medications Documented Multi Vitamin+: Daily, Refill(s) 0 acetaminophen: Refills(s) 0 amiloride 5 mg oral tablet: Refills(s) 0 aspirin: 81 mg, Oral, Daily, Refills(s) 0 atorvastatin 20 mg Tab: 20 mg = 1 tab(s), Oral, Daily, Refills(s) 0 gabapentin 100 mg Cap: Refills(s) 0 hydrOXYzine pamoate 25 mg Cap: Refills(s) 0 levothyroxine 50 mcg (0.05 mg) Tab: 50 mcg = 1 tab(s), Oral, Daily, # 60 tab(s), Refills(s) 0 trihexyphenidyl 2 mg Tab: Refills(s) 0, Home Medications (10) Active acetaminophen amiloride 5 mg oral tablet aspirin 81 mg, Oral, Daily atorvastatin 20 mg Tab 20 mg = 1 tab(s), Oral, Daily gabapentin 100 mg Cap hydrOXYzine pamoate 25 mg Cap Keflex 500 mg Cap 500 mg = 1 cap(s), Oral, BID levothyroxine 50 mcg (0.05 mg) Tab 50 mcg = 1 tab(s), Oral, Daily Multi Vitamin+ , Daily trihexyphenidyl 2 mg Tab Problem list: All Problems Kidney stone / SNOMED CT 874848838 / Confirmed Incontinence without sensory awareness / SNOMED CT 0687380245 / Confirmed Weak urinary stream / SNOMED CT 2734325385 / Confirmed Urge incontinence of urine / SNOMED CT 717203678 / Confirmed Flank pain / SNOMED CT 632142845 / Confirmed Myocardial infarction / SNOMED CT 18987105 / Confirmed Nocturia / SNOMED CT 007383766 / Confirmed Urinary urgency / SNOMED CT 006130012 / Confirmed Hx of assisted 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 thinners / SNOMED CT 021166043 / Confirmed Urgency of urination / SNOMED CT 845953744 / Confirmed Urge incontinence / SNOMED CT 942378984 / Confirmed Dysuria / SNOMED CT 14815374 / Confirmed Asymptomatic microscopic hematuria / SNOMED CT 1352776996 / Confirmed Mixed incontinence / SNOMED CT 32752297 / Confirmed Frequency of urination / SNOMED CT 124109431 / Confirmed Weak urine stream / SNOMED CT 529468998 / Confirmed OAB (overactive bladder) / SNOMED CT 4303468373 / Confirmed Aspirin long-term use / SNOMED CT 2123114058 / Confirmed Overactive bladder / SNOMED CT 2202022110 / Confirmed UTI symptoms / SNOMED CT 287261562 / Confirmed Urinary retention / SNOMED CT 800250843 / Confirmed UTI (urinary tract infection) / SNOMED CT 051669745 / Confirmed Stress incontinence / SNOMED CT 559397445 / Confirmed Incomplete bladder emptying / SNOMED CT 538141750 / Confirmed Recurrent UTI / SNOMED CT 297112604 / Confirmed Incontinence without sensory awareness / SNOMED CT 9812131742 / Confirmed, Active Problems (26) Aspirin long-term use Asymptomatic microscopic hematuria Dysuria Flank pain Frequency of urination Hx of assisted 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 thinners Incomplete bladder emptying Incontinence without sensory awareness Incontinence without sensory awareness Kidney stone Mixed incontinence Myocardial infarction Nocturia OAB (overactive bladder) Overactive bladder Recurrent UTI Stress incontinence Urge incontinence Urge incontinence of urine Urgency of urination Urinary retention Urinary urgency UTI (urinary tract infection) UTI symptoms Weak urinary stream Weak urine stream History of Present Illness The patient is here with her today. We had to cancel the Botox instillation today secondary to what appears to be urinary tract infection. Upon questioning she has had some intermittent moderate discomfort in the suprapubic area. She denies any fever or chills or flank pain. No change in mental status. She still has the urinary incontinence episodes sometimes which occurred during standing and other times occur at any time at all. Objective Additional Findings: Additional Findings: Unexpected findings encountered during today's procedure outside of the original HPI. Abdomen: Soft, nontender No CVA tenderness. Impression and Plan Assessment and Plan: Diagnosis: Acute UTI (ROB84-TV N39.0, Working, Medical), Mixed incontinence urge and stress (EHG75-GA N39.46, Working, Medical), Overactive bladder (ESC53-SS N32.81, Working, Medical). Additional Plan of Care and/or Course of Treatment: Additional Plan of Care and/or Course of Treatment: Discussed extensively with the patient and her . Due to the presence of what appears to be an active urinary tract infection, have to cancel the B (more content not included)... Normal [facility] Comment on above: Result Comment: Elec tronically Signed By: Med MENA MD\.br\Date and Time Signed: 11/13/23 14:46 EST Ambulatory Visit Summaryon 11-27-2022 Ambulatory Visit Summary NARCISO VELASQUEZ :1940 Visit Date:09/27/2023 Ambulatory Visit Instructions Your Diagnosis Urge incontinence Incontinence without sensory awareness OAB (overactive bladder) Recurrent UTI Tests Performed Urnls Dip Stick Auto w/o Microscopy POC [id number] Your Care Team Attending Physician - Med MENA MD Primary Care Physician - PRATIK TADEO MD This Is Your Medications List cephalexin (Keflex 500 mg Cap) Contact prescribing physician if questions or concerns acetaminophen amiloride (amiloride 5 mg oral tablet) aspirin atorvastatin (atorvastatin 20 mg Tab) gabapentin (gabapentin 100 mg Cap) hydrOXYzine (hydrOXYzine pamoate 25 mg Cap) levothyroxine (levothyroxine 50 mcg (0.05 mg) Tab) multivitamin (Multi Vitamin+) trihexyphenidyl (trihexyphenidyl 2 mg Tab) [Image Removed: STOP]Stop taking these medications methenamine (methenamine hippurate 1 g oral tablet) Procedures Performed Knee replacement (04/05/2021), Appendectomy, Bilateral tubal ligation, Colonoscopy, Excision of cataract, Hysterectomy, Knee replacement. Discharge Vitals Height 144 cm Height 57 in Weight 49 kg Weight 107.8 lb BMI 23.63 What to do next Scheduled Follow-Up Appointments Monday 9:45 AM EST Where: [facility] Monday 2:45 PM EST Where: [facility] You Need to Schedule the Following Appointments Follow Up with Med MENA MD, URL When: Where: [address] [place] [address]- Medications What How Much When Instructions Changed cephalexin (Keflex 500 mg Cap) 1 Capsules By Mouth 2 times a day start one day prior to procedure. [facility] [id number] Unchanged acetaminophen Contact prescribing physician if questions or concerns Unchanged amiloride (amiloride 5 mg oral tablet) Contact prescribing physician if questions or concerns Unchanged aspirin 81 Milligram By Mouth Every day Contact prescribing physician if questions or concerns Unchanged atorvastatin (atorvastatin 20 mg Tab) 1 Tablets By Mouth Every day Contact prescribing physician if questions or concerns Unchanged gabapentin (gabapentin 100 mg Cap) Contact prescribing physician if questions or concerns Unchanged hydrOXYzine (hydrOXYzine pamoate 25 mg Cap) Contact prescribing physician if questions or concerns Unchanged levothyroxine (levothyroxine 50 mcg (0.05 mg) Tab) 1 Tablets By Mouth Every day Contact prescribing physician if questions or concerns Unchanged multivitamin (Multi Vitamin+) Every day Contact prescribing physician if questions or concerns Unchanged trihexyphenidyl (trihexyphenidyl 2 mg Tab) Contact prescribing physician if questions or concerns Pharmacy Information [facility] [id number]: [address] [place], [place] [id number] [phone] What How Much When Comments Stop Taking methenamine (methenamine hippurate 1 g oral tablet) 0.5 Tablets By Mouth Every day Test Results Urnls Dip Stick Auto w/o Microscopy POC 76763 (09/27/2023) POC Test Comments - Pt. was not able to urinate Allergies No Known Allergies Problems Ongoing - Any problem that you are currently receiving treatment for. 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 Microscopic hematuria Patient Survey You may receive a survey via text or e-mail asking about your office visit. Please share your experience with us by completing your survey. We appreciate your feedback and thank you for choosing us for your care. Education Materials Urinary Incontinence Urinary incontinence refers to a condition in which a person is unable to control where and when to pass urine. A person with this condition will urinate involuntarily. This means that the person urinates when he or she does not mean to. What are the causes? This condition may be caused by: ? Medicines. ? Infections. ? Constipation. ? Overactive bladder muscles. ? Weak bladder muscles. ? Weak pelvic floor muscles. These muscles provide support for the bladder, intestine, and, in women, the uterus. ? Enlarged prostate in men. The prostate is a gland near the bladder. When it gets too big, it can pinch the urethra. With the urethra blocke (more content not included)... Normal [facility] Patient Educationon 09-27-20 23 Patient Education Urology Urinary Incontinence Urinary incontinence refers to a condition in which a person is unable to control where and when to pass urine. A person with this condition will urinate involuntarily. This means that the person urinates when he or she does not mean to. What are the causes? This condition may be caused by: ? Medicines. ? Infections. ? Constipation. ? Overactive bladder muscles. ? Weak bladder muscles. ? Weak pelvic floor muscles. These muscles provide support for the bladder, intestine, and, in women, the uterus. ? Enlarged prostate in men. The prostate is a gland near the bladder. When it gets too big, it can pinch the urethra. With the urethra blocked, the bladder can weaken and lose the ability to empty properly. ? Surgery. ? Emotional factors, such as anxiety, stress, or post-traumatic stress disorder (PTSD). ? Spinal cord injury, nerve injury, or other neurological conditions. ? Pelvic organ prolapse. This happens in women when organs move out of place and into the vagina. This movement can prevent the bladder and urethra from working properly. What increases the risk? The following factors may make you more likely to develop this condition: ? Age. The older you are, the higher the risk. ? Obesity. ? Being physically inactive. ? and childbirth. ? Menopause. ? Diseases that affect the nerves or spinal cord. ? Long-term, or chronic, coughing. This can increase pressure on the bladder and pelvic floor muscles. What are the signs or symptoms? Symptoms may vary depending on the type of urinary incontinence you have. They include: ? A sudden urge to urinate, and passing urine involuntarily before you can get to a bathroom (urge incontinence). ? Suddenly passing urine when doing activities that force urine to pass, such as coughing, laughing, exercising, or sneezing (stress incontinence). ? Needing to urinate often but urinating only a small amount, or constantly dribbling urine (overflow incontinence). ? Urinating because you cannot get to the bathroom in time due to a physical disability, such as arthritis or injury, or due to a communication or thinking problem, such as Alzheimer's disease (functional incontinence). How is this diagnosed? This condition may be diagnosed based on: ? Your medical history. ? A physical exam. ? Tests, such as: ? Urine tests. ? X-rays of your kidney and bladder. ? Ultrasound. ? CT scan. ? Cystoscopy. In this procedure, a health care provider inserts a tube with a light and camera (cystoscope) through the urethra and into the bladder to check for problems. ? Urodynamic testing. These tests assess how well the bladder, urethra, and sphincter can store and release urine. There are different types of urodynamic tests, and they vary depending on what the test is measuring. To help diagnose your condition, your health care provider may recommend that you keep a log of when you urinate and how much you urinate. How is this treated? Treatment for this condition depends on the type of incontinence that you have and its cause. Treatment may include: ? Lifestyle changes, such as: ? Quitting smoking. ? Maintaining a healthy weight. ? Staying active. Try to get 150 minutes of moderate-intensity exercise every week. Ask your health care provider which activities are safe for you. ? Eating a healthy diet. ? Avoid high-fat foods, like fried foods. ? Avoid refined carbohydrates like white bread and white rice. ? Limit how much alcohol and caffeine you drink. ? Increase your fiber intake. Healthy sources of fiber include beans, whole grains, and fresh fruits and vegetables. ? Behavioral changes, such as: ? Pelvic floor muscle exercises. ? Bladder training, such as lengthening the amount of time between bathroom breaks, or using the bathroom at regular intervals. ? Using techniques to suppress bladder urges. This can include distraction techniques or controlled breathing exercises. ? Medicines, such as: ? Medicines to relax the bladder muscles and prevent bladder spasms. ? Medicines to help slow or prevent the growth of a man's prostate. ? Botox injections. These can help relax the bladder muscles. ? Treatments, such as: ? Using pulses of electricity to help change bladder reflexes (electrical nerve stimulation). ? For women, using a manager medical device to prevent urine leaks. This is a small, tampon-like, disposable device that is inserted into the urethra. ? Injecting collagen or carbon beads (bulking agents) into the urinary sphincter. These can help thicken tissue and close the bladder opening. ? Surgery. Follow these instructions at home: Lifestyle ? Limit alcohol and caffeine. These can fill your bladder quickly and irritate it. ? Keep yourself clean to help prevent odors and skin damage. Ask your health care provider about special skin creams and cleansers that can protect the skin from urine. ? (more content not included)... Normal [facility] Urology Office/Clinic Noteon 09-27-2023 Urology Office/Clinic Note Chief Complaint 6 week F/U HPI Staff 82 yo female here for 6wk f/u to starting methenamine. Previous Dx: UUI, OAB, recurrent UTI. S/p Botox 100u done 05/11/23, 05/23/22, 08/09/21, and 11/09/20. Pt. was not able to urinate today Dysuria: no Incomplete bladder emptying: no Hematuria: no Frequency: every 2-3hours Urgency: no Nocturia: no Stream: good stream Post void dripping: Wearing pads/ Depends: Pt. wears pads, will change every 2-4 hours Urge incontinence: no Stress incontinence: yes Incontinence without Sensory Awareness: occasionally Abdominal pain: no Flank pain: no History of Present Illness Tests reviewed: None. I have reviewed the previous health record information and history for this patient from Dr. Mena. I have reviewed and verified the staff HPI to be accurate for this encounter. There have been no associated fever, chills, flank pain, or blood in the urine. Denies any urinary infections since last encounter. Review of Systems PHQ Score Initial Depression Screen Score: 0 SCORE ROS - Provider Constitutional: denies weight loss, denies hot flashes. Eyes: denies eye problems. Gastrointestinal: denies nausea, denies vomiting. Cardiovascular: denies chest pain or angina. Integumentary: no dryness Musculoskeletal: denies musculoskeletal symptoms. ENMT: denies otolaryngeal symptoms. Respiratory: no shortness of breath. Heme/Lymph: denies easy bleeding tendency, denies easy bruising tendency. Psychiatric: no confusion, no anxiety. Genitourinary: See HPI. Physical Exam Vitals & Measurements HT: 57 in HT: 144 cm WT: 49 kg WT: 107.8 lb BMI: 23.63 General Appearance: alert , no acute distress, well nourished, well developed female. Assessment/Plan Portions of this record may have been created with voice recognition artificial intelligence software, specifically [employer] and or [employer]. Substitutions may have occurred due to the inherent limitations of voice recognition and artificial intelligence software. 1. Urge incontinence (N39.41: Urge incontinence) S/p Botox 100 units 05/23/22 and 05/11/23 100 units. PVR 08/16/23 0 mL. Wearing pads, changes 2-4x per day. Pt states pads are becoming cost prohibitive. Does feel sx have improved since botox however she is still not happy with leakage. Feels it is no longer working. Discussed increasing botox dosage. -Rx written for Always pads -Prophylactic abx sent to pharm on file -Will schedule botox w/ 150 units. The procedural risks, benefits, details, and treatment alternatives have been discussed with the patient. These include bleeding, infection, continued problems with overactive bladder, inability to empty the bladder which could require an indwelling catheter or need for in/out catheterization to empty the bladder, and need for repeat procedures over time (usually lasts up to six months), as well as fatigue and insomnia, among others. There is a minimal risk of Botox entering the blood stream and causing neurological problems, which is quite rare. Full informed consent has been obtained. Will order Local anesthesia. 2. 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 OAB (overactive bladder) (N32.81: Overactive bladder) See #1 4. Recurrent UTI (N39.0: Urinary tract infection, site not specified) UaCx: 05/19/23 - >100k E Coli, resistant to tetracycline 06/08/23 - >100k Proteus Mirabilis, resistant to Macrobid. Tx'd w/ Keflex 08/16/23 - >100k Klebsiella Oxytoca, tx'd w/ keflex Latest kidney fxn on file 11/29/22: BUN 17, Cr 0.79, eGFR >[address] Moon. Pt was started on Methenamine 0.5g last visit. Pt stated they caused an upset stomach. No UA provided today. Asx. Denies infections since last visit. Overall the patient has the overactive bladder and is status post Botox instillation in April 2023. This is wearing off and she wants to be rescheduled for repeat Botox. Will increase the dosing to 150 units. She is well versed in the possible risks benefits and details of this procedure. She has had no real urinary tract infection since last visit but this was only last month. She was maintained on methenamine but stopped it secondary to it upsetting her stomach. She should push fluids hoping to decrease UTI frequency. Follow-up With When Contact Information TRINA WATSON, Med Hilario, URL [address] [id number]- Additional Instructions: Schedule botox 150 units Patient Education Urinary Incontinence I, Jenny Luna, personally scribed for Dr. Mena on 09/27/2023 13:17:45. . Documentation recorded by the scribeJenny, accurately reflects the services(s) I performed and decisions made by me. Authenticated by Dr. Mena on 09/27/2023 13:21:04. Problem List/Past Medical History Ongoing Aspirin l (more content not included)... Normal [facility] Comment on above: Result Comment: Elec tronically Signed By: Med MENA MD\.br\Date and Time Signed: 09/27/23 13:22 EST\.br\Electronically Co-Signed By: Jenny Luna\.br\Date and Time Co-Signed: 09/27/23 13:18 EST C Urineon 08-18-2023 Bacteria identified Cx Nom (U) Microbiology PROCEDURE: Urine Culture [R1] SOURCE: U CleanCatch BODY SITE: COLLECTED DATE/TIME: 08/16/2023 11:52 EDT RECEIVED DATE/TIME: 08/16/2023 13:45 EDT START DATE/TIME: 08/16/2023 13:46 EDT FREE TEXT SOURCE: Med MENA MD, MD, Gregory P FINAL REPORTS Final Report [] Verified Date/Time: 08/18/2023 09:45 EDT >100,000 cfu/ml Klebsiella oxytoca SUSCEPTIBILITY RESULTS ___ LEGEND: S=Susceptible, N/R=Not Reported, Blank=Data not available, or drug not advisable or tested, I=Intermediate, ESBL=Extended spectrum beta-lactamase, R=Resistant, TFG=Thymidine-dependent strain, KERRY=Beta-lactamase positive, MILES=mcg/m;(mg/L), S*=Predicted susceptible interp, R*=Predicted resistant interp Kleoxy Antibiotic MILES Dilutn MILES Interp Amikacin <=16 S Ampicillin >16 R Ampicillin/ <=8/4 S Sulbactam Aztreonam <=4 S Cefazolin <=2 S Cefepime <=2 S Cefoxitin <=8 S Ceftazidime <=1 S Ceftazidime/ <=8 S Avibactam Ceftriaxone <=1 S Ciprofloxacin <=1 S Ertapenem <=0.5 S Gentamicin <=4 S Levofloxacin <=2 S Meropenem <=1 S Nitrofurantoin <=32 S Piperacillin/ <=16 S Tazobactam Tetracycline <=4 S Tigecycline <=2 S Tobramycin <=4 S Trimethoprim/ <=2/38 S Sulfa Performing Locations R1: This test was performed at: [facility], [address] [place] [address], [id number] , [place], [facility] Comment on above: Performed By: #### 2 [id number] #### [facility] [address] [place] [address] Ambulatory Visit Summaryon 1 Ambulatory Visit Summary NARCISO VELASQUEZ :1940 Visit Date:08/16/2023 Ambulatory Visit Instructions Your Diagnosis Urge incontinence OAB (overactive bladder) Recurrent UTI Tests Performed Urnls Dip Stick Auto w/o Microscopy POC 32921 Your Care Team Attending Physician - Med MENA MD Primary Care Physician - PRATIK TADEO MD Referring Physician - Med MENA MD This Is Your Medications List cephalexin (Keflex 500 mg Cap) methenamine (methenamine hippurate 1 g oral tablet) Contact prescribing physician if questions or concerns acetaminophen amiloride (amiloride 5 mg oral tablet) aspirin atorvastatin (atorvastatin 20 mg Tab) gabapentin (gabapentin 100 mg Cap) hydrOXYzine (hydrOXYzine pamoate 25 mg Cap) levothyroxine (levothyroxine 50 mcg (0.05 mg) Tab) multivitamin (Multi Vitamin+) trihexyphenidyl (trihexyphenidyl 2 mg Tab) Procedures Performed Knee replacement (04/05/2021), Appendectomy, Bilateral tubal ligation, Colonoscopy, Excision of cataract, Hysterectomy, Knee replacement. Discharge Vitals Height 144 cm Height 57 in Weight 49 kg Weight 107.8 lb BMI 23.63 What to do next Scheduled Follow-Up Appointments Monday 1:00 PM EST With: Med MENA MD Where: [facility] Patient Educationon 08-16-20 23 Patient Education Obstetrics and Gynecology Urinary Tract Infection, Adult A urinary tract infection (UTI) is an infection of any part of the urinary tract. The urinary tract includes the kidneys, ureters, bladder, and urethra. These organs make, store, and get rid of urine in the body. An upper UTI affects the ureters and kidneys. A lower UTI affects the bladder and urethra. What are the causes? Most urinary tract infections are caused by bacteria in your genital area around your urethra, where urine leaves your body. These bacteria grow and cause inflammation of your urinary tract. What increases the risk? You are more likely to develop this condition if: ? You have a urinary catheter that stays in place. ? You are not able to control when you urinate or have a bowel movement (incontinence). ? You are female and you: ? Use a spermicide or diaphragm for control. ? Have low estrogen levels. ? Are . ? You have certain genes that increase your risk. ? You are sexually active. ? You take antibiotic medicines. ? You have a condition that causes your flow of urine to slow down, such as: ? An enlarged prostate, if you are male. ? Blockage in your urethra. ? A kidney stone. ? A nerve condition that affects your bladder control (neurogenic bladder). ? Not getting enough to drink, or not urinating often. ? You have certain medical conditions, such as: ? Diabetes. ? A weak disease-fighting system (immunesystem). ? Sickle cell disease. ? Gout. ? Spinal cord injury. What are the signs or symptoms? Symptoms of this condition include: ? Needing to urinate right away (urgency). ? Frequent urination. This may include small amounts of urine each time you urinate. ? Pain or burning with urination. ? Blood in the urine. ? Urine that smells bad or unusual. ? Trouble urinating. ? Cloudy urine. ? Vaginal discharge, if you are female. ? Pain in the abdomen or the lower back. You may also have: ? Vomiting or a decreased appetite. ? Confusion. ? Irritability or tiredness. ? A fever or chills. ? Diarrhea. The first symptom in older adults may be confusion. In some cases, they may not have any symptoms until the infection has worsened. How is this diagnosed? This condition is diagnosed based on your medical history and a physical exam. You may also have other tests, including: ? Urine tests. ? Blood tests. ? Tests for STIs (sexually transmitted infections). If you have had more than one UTI, a cystoscopy or imaging studies may be done to determine the cause of the infections. How is this treated? Treatment for this condition includes: ? Antibiotic medicine. ? Blks-xqe-muszqcr medicines to treat discomfort. ? Drinking enough water to stay hydrated. If you have frequent infections or have other conditions such as a kidney stone, you may need to see a health care provider who specializes in the urinary tract (urologist). In rare cases, urinary tract infections can cause sepsis. Sepsis is a life-threatening condition that occurs when the body responds to an infection. Sepsis is treated in the hospital with IV antibiotics, fluids, and other medicines. Follow these instructions at home: Medicines ? Take lqbd-lnr-czhfsca and prescription medicines only as told by your health care provider. ? If you were prescribed an antibiotic medicine, take it as told by your health care provider. Do not stop using the antibiotic even if you start to feel better. General instructions ? Make sure you: ? Empty your bladder often and completely. Do not hold urine for long periods of time. ? Empty your bladder after sex. ? Wipe from front to back after urinating or having a bowel movement if you are female. Use each tissue only one time when you wipe. ? Drink enough fluid to keep your urine pale yellow. ? Keep all follow-up visits. This is important. Contact a health care provider if: ? Your symptoms do not get better after 1?2 days. ? Your symptoms go away and then return. Get help right away if: ? You have severe pain in your back or your lower abdomen. ? You have a fever or chills. ? You have nausea or vomiting. Summary ? A urinary tract infection (UTI) is an infection of any part of the urinary tract, which includes the kidneys, ureters, bladder, and urethra. ? Most urinary tract infections are caused by bacteria in your genital area. ? Treatment for this condition often includes antibiotic medicines. ? If you were prescribed an antibiotic medicine, take it as told by your health care provider. Do not stop using the antibiotic even if you start to feel better. ? Keep all follow-up visits. This is important. This information is not intended to replace advice given to you by your health care provider. Make sure you discuss any questions you have with your health care provider. Document Revised: 05/28/2021 Document Revie (more content not included)... Normal [facility] Urology Office/Clinic Noteon 08-16-2023 Urology Office/Clinic Note Chief Complaint F/U to Botox with PVR HPI Staff 82 yo female here for f/u to Botox 100u. Previous Dx: urge incontinence, hx of recurrent UTI. S/p Botox 100u 05/11/23, 05/23/22, 08/09/21, and 11/09/20. Urine culture 06/08/23 showed Proteus mirabilis, tx'd with Keflex 500mg BID x7days. PVR 0 mL. Dysuria: occasionally Incomplete bladder emptying: occasionally Hematuria: small UA today Frequency: 2-3 hours Urgency: yes Nocturia: every 3 hours Stream: good stream Post void dripping: Wearing pads/ Depends: 4-5 pads a day Urge incontinence: yes Stress incontinence: no Incontinence without Sensory Awareness: yes Abdominal pain: occasionally Flank pain: no History of Present Illness Tests reviewed: Reviewed UA, culture and kidney fxn labs. I have reviewed the previous health record information and history for this patient from Dr. Mena. I have reviewed and verified the staff HPI to be accurate for this encounter. There have been no associated fever, chills, flank pain, or blood in the urine. Denies any urinary infections since last encounter. Review of Systems PHQ Score Initial Depression Screen Score: 0 ROS - Provider Constitutional: denies weight loss, denies hot flashes. Eyes: denies eye problems. Gastrointestinal: denies nausea, denies vomiting. Cardiovascular: denies chest pain or angina. Integumentary: no dryness Musculoskeletal: denies musculoskeletal symptoms. ENMT: denies otolaryngeal symptoms. Respiratory: no shortness of breath. Heme/Lymph: denies easy bleeding tendency, denies easy bruising tendency. Psychiatric: no confusion, no anxiety. Genitourinary: See HPI. Physical Exam Vitals & Measurements HT: 57 in HT: 144 cm WT: 49 kg WT: 107.8 lb BMI: 23.63 General Appearance: alert , no acute distress, well nourished, well developed female. Genitourinary: bladder nonpalpable, no flank pain. Assessment/Plan 82 yo female following up to recent botox Pt here with today Portions of this record may have been created with voice recognition artificial intelligence software, specifically [employer] and or [employer]. Substitutions may have occurred due to the inherent limitations of voice recognition and artificial intelligence software. 1. Urge incontinence (N39.41: Urge incontinence) S/p Botox 100 units 05/23/22 and 05/11/23. PVR today 0 mL. Feels Botox worked well at first. Pt states she is wearing a night time pad during the day.Pt is going through 4-5 pads daily along w/ frequency however pt's UA looks infected today along with positive culture in May. Explained to pt that sx are going to be worse when infected. -Reassess leakage at next visit -Check with [facility] in [place] regarding incontinence supplies 1a. Current UTI. 2. OAB (overactive bladder) (N32.81: Overactive bladder) See #1 3. Recurrent UTI (N39.0: Urinary tract infection, site not specified) UaCx: 05/19/23 - >100k E Coli, resistant to tetracycline 06/08/23 - >100k Proteus Mirabilis, resistant to Macrobid. Tx'd w/ Keflex UA today small blood, + nitrates, large leuks We discussed Methenamine. Pt has previously taken Methenamine but will restart. Latest kidney fxn on file 11/29/22: BUN 17, Cr 0.79, eGFR >[address] Moon. pH today 6.0 -Methenamine 0.5 qd, add Vit C -Follow up in 6 wks -Culture today -Start Keflex 500 mg BID x 7 days pending culture Overall the patient is here with her . Unfortunately she has what again appears to be another urinary tract infection which has been an ongoing problem for her. She stated the Botox is working better until the other symptoms began to overtake the ability of Botox to handle the symptoms. I advised that we need to get control of the infections first and hopefully the Botox will again control her overactive bladder. The plan is as outlined. Follow-up 6 weeks. Follow-up With When Contact Information TRINA WATSON, Med Hilario, URL [address] [facility] [address] [address]- Additional Instructions: 6 wks since starting Methenamine Patient Education Urinary Tract Infection, Adult IJenny, personally scribed for Dr. Mena on 08/16/2023 10:28:08. . Documentation recorded by the scribeJenny, accurately reflects the services(s) I performed and decisions made by me. Authenticated by Dr. Mena on 08/16/2023 10:30:11. 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 Normal [facility] Comment on above: Result Comment: Elec tronically Signed By: Med MENA MD\.br\Date and Time Signed: 08/16/23 10:31 EDT\.br\Electronically Co-Signed By: Jenny Luna.br\Date and Time Co-Signed: 08/16/23 10:28 EDT Office Visit (Cardiology)on 07-20-2023 Follow-up visit Diagnoses/Problems Assessed Atherosclerosis of coronary artery (414.00) (I25.10) Status post coronary angioplasty (V45.82) (Z98.61) Hypothyroidism (244.9) (E03.9) Hyperlipidemia (272.4) (E78.5) At risk for falls (V15.88) (Z91.81) Rheumatoid arthritis (714.0) (M06.9) Parkinson disease (332.0) (G20) Body mass index (BMI) of 21.0 to 21.9 in adult (V85.1) (Z68.21) Patient Instructions Please bring all medicines, vitamins, and herbal supplements with you when you come to the office. Prescriptions will not be filled unless you are compliant with your follow up appointments or have a follow up appointment scheduled as per instruction of your physician. Refills should be requested at the time of your visit. Follow up in 6 months labs requested Chief Complaint NARCISO VELASQUEZ is being seen for a 6 month follow-up of. Patient is in the office for follow-up for the problems noted below. She came with her . She had no complaints from a cardiac standpoint. There is no indication of recurrent angina, she has no side effect of medications, she follows with rheumatology for rheumatoid arthritis which has been stable also follows with neurology for Parkinson's disease which is under control. She has limited mobility. She has not needed to use nitroglycerin. She had recent lab data through her PCP which I requested. Examination was unremarkable ASSESSMENT AND PLAN: 1. Coronary artery disease, status post angioplasty of the left anterior descending in 2015 and 2016. She will remain on statin and aspirin. Presently asymptomatic, nuclear stress test 2020 was normal. Continue aspirin and statin indefinitely 2. Hyperlipidemia, on statin therapy recent lab data done through her PCP were requested 3. Hypothyroidism on replacement therapy, thyroid function has been followed. 4?Parkinson's disease on Sinemet followed by neurology, currently stable 5?rheumatoid arthritis followed by rheumatology locally, currently stable Donna Ferrari MD, [facility] Surgical History Problems History of Angioplasty History of Appendectomy History of Bladder surgery History of Cholecystectomy History of Colostomy History of Complete colonoscopy History of Hysterectomy History of Knee replacement History of Tubal ligation Current Meds Medication NameInstruction Aspirin EC 81 MG TBECTAKE 1 TABLET DAILY DIRECTED. Atorvastatin Calcium 20 MG Oral TabletTAKE 1 TABLET BY MOUTH DAILY AT BEDTIME Calcitriol 0.5 MCG Oral CapsuleTAKE 1 CAPSULE Daily Gabapentin 100 MG Oral CapsuleTAKE 1 CAPSULE Daily Nitroglycerin 0.4 MG Sublingual Tablet SublingualPLACE 1 TABLET UNDER THE TONGUE EVERY 5 MINUTES UP TO 3 DOSES NEEDED FOR CHEST PAIN. Pramipexole Dihydrochloride 0.125 MG Oral TabletTAKE 1 TABLET 3 TIMES DAILY. Synthroid 50 MCG Oral TabletTAKE 1 TABLET DAILY DIRECTED. Trihexyphenidyl HCl - 2 MG Oral TabletTAKE 2 TABLET Daily Patient did not bring medication list or bottles. Updated verbally with patient. . Allergies Medication Morphine Derivatives Adverse Reaction; Updated By: Germaine Ordonez; 01/12/2023 11:10:14 AM Family History Mother No pertinent family history Father Family history of cardiac disorder (V17.49) (Z82.49) Family history of myocardial infarction (V17.3) (Z82.49) Sibling Family history of cardiac disorder (V17.49) (Z82.49) Social History Problems Never a smoker No alcohol use No caffeine use No illicit drug use Review of Systems Constitutional: not feeling tired. Cardiovascular: no intermittent leg claudication and as noted in HPI. Respiratory: no cough and no shortness of breath. Gastrointestinal: no change in bowel habits and no blood in stools. Integumentary: no skin rashes. Neurological: no seizures and no frequent falls. All other systems have been reviewed and are negative for complaint. Vitals Vital Signs Recorded: 20Jul2023 10:40AM Heart Rate60, L Radial Tkeogfin192, LUE, Sitting Vpoyodqph61, LUE, Sitting Height4 ft 10 in Gwtmjc910 lb BMI Niveifucsl11.11 kg/m2 BSA Calculated1.36 Tobacco Useb) No Falls Screening (Age 18+)a) No falls within the last year Physical Exam Constitutional: alert and in no acute distress. Neck: neck is supple, symmetric, trachea midline, no masses and no thyromegaly . Pulmonary: no increased work of breathing or signs of respiratory distress and lungs clear to auscultation. Cardiovascular: carotid pulses 2+ bilaterally with no bruit , JVP was normal, no thrills , regular rhythm, normal S1 and S2, no murmurs , pedal pulses 2+ bilaterally and no edema . Abdomen: abdomen non-tender, no masses and no hepatomegaly . Skin: skin warm and dry, normal skin turgor . Psychiatric judgment and insight is normal and oriented to person, place and time . Signatures Electronically signed by : Donna Ferrari MD; Jul 20 2023 12:36PM EST (Author) Normal [facility] Tobacco Screening.on 023 Fall risk assessment a) No falls within the last year [facility] y [address] DO Work Phone: Tobacco use status CP b) No [facility] DO Work Phone: XR calcaneus BIon 07-05-2023 XR calcaneus BI [facility] Main [place] [address] [place] [address] XRay Report Signed Patient: Narciso Velasquez MR#: [id number] : 1940 Acct:[id number] Age/Sex: 82 / F ADM Date: 07/05/23 Loc: ICXD Room: Type: [facility] Attending Dr: Curtis Alcocer MD Copies to: Curtis Alcocer MD Ordering Provider: Curtis Alcocer MD Date of Service: 07/05/23 XR/XR foot BI 2V: BENJIE HEAL/FOOT PAIN ([id number]) XR/XR calcaneus BI: FOOT/HEAL PAIN CLINICAL DATA: Pain at the bottom of both heels for the past few weeks. BILATERAL FEET - 2 views each COMPARISON: Left foot 02/04/2021 AP and lateral views were obtained. No acute fracture is or dislocation are noted. There are posterior and plantar calcaneal spurs on both sides. There is no focal soft tissue swelling. Atherosclerotic disease is noted. XR/XR foot BI 2V IMPRESSION: BILATERAL CALCANEAL SPURS. BILATERAL CALCANEUS - 2 views COMPARISON: Left foot 02/04/2021 Lateral and tangential views were obtained on both sides. No acute fractures or dislocation are identified. There are small spurs at the insertion of the plantar aponeurosis. There are moderate- sized spurs at the insertion of the Achilles tendons. There is no significant soft tissue swelling. There is atherosclerotic disease. IMPRESSION: CALCANEAL SPURS. Impression dictated by: Zuly Leon M.D.07/05/2023 5:55 PM Dictation Location: [place] [address] Transcribed By: [facility] 07/05/231754 Dictated By: Zuly Leon MD 07/05/231752 Signed By: 07/05/231754 [facility] Lab Reportson 06-12-2023 Lab Reports [id number]: [address] [facility] Lab Reports [id number]: [address] [facility] Lab Reports [id number]#1.00CD: 127 [facility] Lab Reportson 06-10-2023 Lab Reports [id number]#1.00CD: 127 [facility] Consent for Procedure/Surger yon 05-11-2023 Consent for Procedure/Surgery [id number]#1.00CD :[address] [facility] Consent for Treatmenton 04-29 Consent for Treatment [id number]#1.00CD: [address] [facility] Inpatient Patient Summaryon 05-11-2023 Inpatient Patient Summary [place] [id number] Clinical Summary Person Information Name: NARCISO VELASQUEZ Age: 82 Years : 1940 Sex: Female PCP: PRATIK TADEO MD Marital Status: Race: White Ethnicity: Non- or Language: Citizen Of [place] Visit Id: Visit Reason: URINERY INCONTINENCE Speciality: Acuity: Enc Type: Outpatient Med Service: Surgery Arrival: 05/11/2023 07:16:35 Discharge: Dispo Type: Address: [address] [place] [id number] Provider Notes: Diagnosis: Problems Active Incomplete bladder emptying Stress incontinence UTI (urinary tract infection) Urinary retention UTI symptoms Overactive bladder Aspirin long-term use Weak urine stream Weak urinary stream Hx of assisted 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 thinners Mixed incontinence Frequency of urination OAB (overactive bladder) Asymptomatic microscopic hematuria Nocturia Dysuria Kidney stone Urgency of urination Urge incontinence Urinary urgency Myocardial infarction Flank pain Urge incontinence of urine Incontinence without sensory awareness Smoking Status: Functional Status: Sensory Deficits: History of Falls: Mobility Assistance Prior to Admission: ADLs: Current Level of Assistance for Self-Care/Mobility: Cognitive Status: Allergies No Known Allergies Laboratory or Other Results This Visit (last charted value for your 05/11/2023 visit) No Laboratory or Other Results This Visit Measurements: Height: 144 cm Weight: Blood Pressure: Not Valued / Not Valued BMI: Procedures No Procedures Documented Immunizations No Immunizations Documented This Visit Final Med List: acetaminophen amiloride (amiloride 5 mg oral tablet) aspirin 81 Milligram By Mouth every day. atorvastatin (atorvastatin 20 mg Tab) 1 Tablets By Mouth every day. gabapentin (gabapentin 100 mg Cap) hydrOXYzine (hydrOXYzine pamoate 25 mg Cap) levothyroxine (levothyroxine 50 mcg (0.05 mg) Tab) 1 Tablets By Mouth every day. methenamine (methenamine hippurate 1 g oral tablet) 0.5 Tablets By Mouth every day. multivitamin (Multi Vitamin+) every day. trihexyphenidyl (trihexyphenidyl 2 mg Tab) Care Team Members: Attending Physician: Med MENA MD Consulting Physician: Referring Physician: Med MENA MD Follow up: With: Address: When: Med MENA [address], [address], [place] [id number] [facility] (1) Within 3 months Comments: Call for followup appointment, with bladder scan checking for residual urine at that visit. Patient Education Information: EU - Cystoscopy with Botox Injection Discharge Instructions (Custom) [facility] IntraOperative Documentson 0 05-11-2023 IntraOperative Documents [id number]#[id number] :127 [facility] Main OR Intraoperative Recor don 05-11-2023 Main OR Intraoperative Record IntraOp Document Type FTURO Summary Primary Physician: Med MENA MD Finalized Date/Time: 05/11/23 08:07:27 Pt. Name: NARCISO VELASQUEZ/Sex: 1940 Female Med Rec #: [id number] Physician: Med MENA MD Financial #: [id number] Pt. 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 INJECTION Surgeon Description CYSTO BOTOX 100 UNITS Primary Procedure Yes Primary Surgeon Med MENA MD Start 05/11/23 07:56:00 Stop 05/11/23 08:01:00 Anesthesia Type Local Surgical Service Urology Wound Class 2 - Clean-Contaminated Last Modified By: Heather Randhawa 05/11/23 08:07:16 General Comments: botox 100 units, lot: [id number] exp: General Case Data FTURO Pre-Care Text: Classifies surgical wound, implements aseptic technique, initiates traffic control Entry 1 Case Information OR URO 1 FT Case Level None Wound Class 2 - Clean-Contaminated Specialty Urology Preop Diagnosis URINERY INCONTINENCE Postop Same As Preop Yes Postop Diagnosis URINERY INCONTINENCE Outcomes Met? Yes Last Modified By: Heather Randhawa 05/11/23 07:54:40 Post-Care Text: The patient is free from signs and symptoms of infection EU IntraOp - FTURO Pre-Care Text: Implements protective measures prior to operative or invasive procedure, confirms identity before the operative or invasive procedure, verifies operative procedure, surgical site, and laterality Entry 1 EU Perioperative Protocols Procedure(s) CYSTOSCOPY LOCAL BOTOX Patient Identity Birthday, ID Band INJECTION(.) Verified (select at Check, Patient least 2): Participation Consents / H and P Anesthesia Consent, Operative Site N/A Verified HandP, Surgery/Procedure Marking Verified Consent Surgical Site Yes Laterality Verified n/a Verified Procedure Verified Yes Correct Patient Yes Position Verified Availability Equipment, Medication Time Out Med MENA MD, Verified (If Participants Heather Randhawa, Applicable) Krishna Moctezuma Time Out Complete 05/11/23 07:56:00 Allergies Reviewed? Yes Allergies Reviewed Self/Patient With Body Position Low Lithotomy Prep Area perineum area Prep Agents Betadine Solution Skin. Condition Unable to Visualize Additional None Specimens Collected Vitals - EU Blood Pressure Pulse Respirations SPO2 EBL 0 IandO - EU Total Intake 0 mL Total Output 0 mL Outcomes Met? Yes Last Modified By: Heather Randhawa 05/11/23 08:01:07 Post-Care Text: The patient is free from signs and symptoms of injury caused by extraneous objects Sign Out FTURO Entry 1 Before Patient Leaves OR Nurse verbally Yes Nurse verbally n/a confirms with the confirms with the team the name of team that the procedure(s) instrument, sponge, recorded and needle counts are correct (or N/A) Nurse verbally n/a Nurse verbally Yes confirms with the confirms with the team how the team whether there specimen is labeled are any equipment (including patient problems to be name), if applicable addressed Sign Out Complete 05/11/23 08:01:00 Last Modified By: Heather Randhawa 05/11/23 08:01:18 Case Comments Finalized By: Heather Randhawa Document Signatures Signed By: Heather Randhawa 05/11/23 08:07 Heather Randhawa 05/11/23 08:[address] [facility] Main OR Preoperative Recordo n 05-11-2023 Main OR Preoperative Record Holding Area Document Type FTURO Summary Primary Physician: Med MENA MD Finalized Date/Time: 05/11/23 07:53:38 Pt. Name: NARCISO VELASQUEZ/Sex: 1940 Female Med Rec #: [id number] Physician: Med MENA MD Financial #: [id number] Pt. Type: O Room/Bed: / Admit/Disch: 05/11/23 07:16:35 - Institution: Case Times Holding FTURO Pre-Care Text: Verifies consent for planned procedure, identifies individual values and wishes concerning care, includes family members in perioperative teaching Secures patient's records' belongings, and valuables, maintains patient's dignity and privacy, and maintains patient confidentiality Entry 1 In Holding 05/11/23 07:30:00 Outcomes Met? Yes Last Modified By: Dorie Logan RN 05/11/23 07:33:49 Post-Care Text: The patient participates in decisions affecting his or her perioperative plan of care The patient's right to privacy is maintained Surgery Checklist FTURO Entry 1 Patient Birthday, ID Band Procedure History and Physical, Identification: Check, Patient Verification: Surgical Consent, With Participation Patient Personal Items: Cataract Lens Implant, Personal Items DENTURES - UPPER AND Dentures, Glasses, Comment: LOWER, BILATERAL Jewelry CATARACT LENS IMPLANTS; RING X 2; GLASSES Limitations: UP WITH CANE Complaints of Pain: No Skin Integrity Dry, Warm Vitals - EU Blood Pressure Pulse Respirations SPO2 Additional Other (See Comment) Specimens Comment URINE DIPSTICK Specimens Collected RN Reviewed Yes Last Modified By: Dorie Logan RN 05/11/23 07:36:29 General Comments: TEMP 36.3C. LORRAINE WALKER Finalized By: Dorie Logan RN Document Signatures Signed By: Dorie Logan RN 05/11/23 07:36 Dorie Logan RN 05/11/23 07:[address] [facility] Operative Reporton Operative Report Patient: STEPHANIA VELASQUEZ Age: 82 years Sex: Female : 1940 Associated Diagnoses: None Author: Med MENA MD Procedure Operative Information Details: Date/ Time: 05/11/2023 08:02:00. 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 Post-Op Dx: Same. Anesthesia Type: Local. Procedure: Local Cystoscopy with botox injection. Complications: None. Risks/Benefits/Informed Consent: Surgical risks, benefits, details of the procedure have been explained to the patient, Full informed consent has been obtained. Intraoperative Information Prepped: Patient is brought back to the endoscopy suite, Female Prep (Patient is placed in modified dorso/lithotomy position, 5 cc 2% Xylocaine Jelly is placed per Urethra, Straight cath inserted to obtain urine specimen, 60 cc 2% Xylocaine liquid inserted into bladder, 5 additional cc 2% Xylocaine Jelly is placed per Urethra, Patient in sitting position for 20 min dwell), Urine Specimen Results Negative for infection, Patient prepped in the usual fashion with Betadine solution, 10 cc 2% Xylocaine Jelly is placed per Urethra, After waiting several minutes the Cystoscope is introduced. Procedure: The trigone was identified and evaluated, 20 template injection sites were identified, The bladder was instilled with enough saline to achieve adequate visualization for the injections, The needle was inserted approximately 2 mm into the detrusor spaced approximately 1 cm apart, A total of 20 injections with a 0.5 ml volume was delivered at each site for a total of 100 units of Botox. The Urethra is: Normal. Botox: 100 units. The ureteral orifices: Show efflux of clear urine. The Bladder is: Normal, Trabeculated Mild (1). Devices Implanted: None. Removal: Cystoscope is removed, The patient tolerated it well. Postoperative Information Discharge: Patient is discharged home with antibiotic coverage, Follow up arranged, F/U three months with bladder scan PVR. . Normal [facility] Comment on above: Result Comment: Elec tronically Signed By: Med MENA MD\.br\Date and Time Signed: 05/11/23 08:03 EDT Outpatient Surgery Discharge Instructionon 05-11-2023 Outpatient Surgery Discharge Instruction [address] [address] Patient Discharge Instructions PERSON INFORMATION Name: NARCISO VELASQUEZ Date of : 1940 Current Date: 05/11/2023 08:02:33 PHYSICIANS Admitting Physician: Med MENA MD Comment: Discharge Diagnosis: NARCISO VELASQUEZ has been given the following list of follow-up instructions, prescriptions, and patient education materials: IF UNABLE TO CONTACT YOUR PHYSICIAN AND YOU FEEL IT IS AN EMERGENCY, GO TO THE NEAREST EMERGENCY ROOM OR CALL 911 Follow up: With: Address: When: Med MENA [address] [place] [address], [address], [address] [address] [facility] (1) Within 3 months Comments: Call for followup appointment, with bladder scan checking for residual urine at that visit. Comment: PATIENT EDUCATION INFORMATION Instructions: Cystoscopy with Botox injection ? Voiding after the procedure: there may be some pain, burning, urgency, frequency and blood tinged urine following the procedure. These symptoms usually resolve within 2-5 days. Drink the amount of fluid it takes to keep the urine pink to yellow or clear in color. Drinking enough water and fluids will help to ease any discomfort after your procedure. ? It may take a few days to a week to notice a gradual improvement in the overactive bladder symptoms. ? If you are having problems that seem out of the ordinary, please call. ? If unable to contact your physician and you feel it is an emergency, go to the nearest emergency room or call 911 ? Do not lift more than fifteen pounds for 1-2 days. If you see a lot of blood, you probably did too much. ? Diet ? you may resume your normal diet. ? Pain control ? You may take extra strength Tylenol or Motrin for discomfort. ? Call if you have a fever over 100 degrees. RON Haley PATRICIA A, have received the attached patient education materials/instructions and have verbalized understanding: May we do a follow up call? Yes No I was present when discharge instructions were given Patient Signature Date Clinican/Nurse Signature Date You may receive a survey from Jaymie Mcgraw asking you to rate your care experience. Your feedback is important and will help us understand what we do well and how we can improve the quality of care we provide to you, your loved ones and our community. It?s an honor to serve you. Thank you for choosing [facility] Normal [facility] Office Visit (Cardiology)on 01-12-2023 Follow-up visit Diagnoses/Problems Assessed Atherosclerosis of coronary artery (414.00) (I25.10) Status post coronary angioplasty (V45.82) (Z98.61) Hyperlipidemia (272.4) (E78.5) Body mass index (BMI) of 21.0 to 21.9 in adult (V85.1) (Z68.21) Never a smoker Rheumatoid arthritis (714.0) (M06.9) Parkinson disease (332.0) (G20) Hypothyroidism (244.9) (E03.9) Orders Atherosclerosis of coronary artery Renew: Aspirin EC 81 MG Oral Tablet Delayed Release; TAKE 1 TABLET DAILY DIRECTED Basic Metabolic Panel; Status:Active - Retrospective Authorization; Requested for:[id number]; Complete Blood Count; Status:Active - Retrospective Authorization; Requested for:[id number]; Atherosclerosis of coronary artery, Hyperlipidemia ALT - Alanine Aminotransferase, Serum; Status:Active - Retrospective Authorization; Requested for:[id number]; AST; Status:Active - Retrospective Authorization; Requested for:[id number]; Lipid Panel; Status:Active - Retrospective Authorization; Requested for:[id number]; SocHx: Never a smoker Tobacco Use Screening; Status:Complete; Done: 12Jan2023 Patient Instructions Please bring all medicines, vitamins, and herbal supplements with you when you come to the office. Prescriptions will not be filled unless you are compliant with your follow up appointments or have a follow up appointment scheduled as per instruction of your physician. Refills should be requested at the time of your visit. Follow up in 6 months with lab Same meds Chief Complaint NARCISO VELASQUEZ is being seen for a 6 month follow-up of. Patient is in the office for follow-up for the problems noted below. Since her last visit last May she remained angina free her main concern is orthopedic problems which will likely never go away. Lab data from last visit was discussed with her and her numbers look great including her LDL cholesterol which was only 20 mg/dL. She is on atorvastatin 20 mg daily which has been well-tolerated. Her examination was unremarkable today. ASSESSMENT AND PLAN: 1. Coronary artery disease, status post angioplasty of the left anterior descending in 2015 and 2016. She will remain on statin and aspirin. Presently asymptomatic, nuclear stress test 2020 was normal. Continue aspirin and statin indefinitely 2. Hyperlipidemia, on statin therapy under excellent control. LDL 20 mg/dL May 2022 3. Hypothyroidism on replacement therapy, thyroid function has been followed. And has been under control 4?Parkinson's disease on Sinemet followed by neurology, currently stable 5?rheumatoid arthritis followed by rheumatology locally, currently stable Donna Ferrari MD, [facility] Surgical History Problems History of Angioplasty History of Appendectomy History of Bladder surgery History of Cholecystectomy History of Colostomy History of Complete colonoscopy History of Hysterectomy History of Knee replacement History of Tubal ligation Current Meds Medication NameInstruction Aspirin EC 81 MG Oral Tablet Delayed ReleaseTAKE 1 TABLET DAILY DIRECTED. Atorvastatin Calcium 20 MG Oral TabletTAKE 1 TABLET BY MOUTH DAILY AT BEDTIME Calcitriol 0.5 MCG Oral CapsuleTAKE 1 CAPSULE Daily Gabapentin 100 MG Oral CapsuleTAKE 1 CAPSULE Daily Nitroglycerin 0.4 MG Sublingual Tablet SublingualPLACE 1 TABLET UNDER THE TONGUE EVERY 5 MINUTES UP TO 3 DOSES NEEDED FOR CHEST PAIN. Pramipexole Dihydrochloride 0.125 MG Oral TabletTAKE 1 TABLET 3 TIMES DAILY. Synthroid 50 MCG Oral TabletTAKE 1 TABLET DAILY DIRECTED. Trihexyphenidyl HCl - 2 MG Oral TabletTAKE 2 TABLET Daily Patient did not bring medication list or bottles. Updated verbally with patient Allergies Medication Morphine Derivatives Adverse Reaction; Updated By: Germaine Ordonez; 01/12/2023 11:10:14 AM Social History Problems Never a smoker No alcohol use No caffeine use No illicit drug use Review of Systems Constitutional: not feeling tired. Cardiovascular: no intermittent leg claudication and as noted in HPI. Respiratory: no cough and no shortness of breath. Gastrointestinal: no change in bowel habits and no blood in stools. Integumentary: no skin rashes. Neurological: dizziness, but no seizures and no frequent falls. All other systems have been reviewed and are negative for complaint. Vitals Vital Signs Recorded: 12Jan2023 11:13AM Heart Rate88, L Radial [id number], LUE, Sitting Ggcviyflh39, LUE, Sitting Height4 ft 10 in Pnyowo946 lb BMI Pyzxvbyawl26.95 kg/m2 BSA Calculated1.38 Tobacco Useb) No PHQ-2 #1. Over the last 2 weeks have you felt down, depressed or hopeless? (If yes, answer PHQ-9 below)No PHQ-2 #2. Over the last 2 weeks have you felt little interest or pleasure in doing things? (If yes, answer PHQ-9 below)No Falls Screening (Age 18+)a) No falls within the last year Physical Exam Constitutional: alert and in no acute distress. Neck: neck is supple, symmetric, trachea midline, no masses and no thyromegaly . Pulmo (more content not included)... Normal [employer] Tobacco Screening.on 023 Adult depression screening assessment No [facility] DO Work Phone: Fall risk assessment a) No falls within the last year [facility] [employer] DO Work Phone: Tobacco use status CP b) No [facility] [employer] [employer] DO Work Phone: PTH INTACTon 11-30-2022 PTH, Intact 3 pg/mL Critically low 15-65 [facility] Comment on above: Performed By: #### R ENMICHELLE, MG #### [facility] [address] [address] [address] Emilie Jeronimo HEMOGRAM AND PLATELon 2022 Hematocrit (Bld) [Volume fraction] 38.0 % Normal 36.0-48.0 [facility] Comment on above: Performed By: #### R ENMICHELLE, MG #### [facility] [address] [address] [address] Emilie Jeronimo Hemoglobin (Bld) [Mass/Vol] 12.9 g/dL Normal 12.0-16.0 [facility] Comment on above: Performed By: #### R ENMICHELLE, MG #### [facility] [address] [address] [address] Emilie Jeronimo MCH (RBC) [Entitic mass] 32.5 pg Normal 26.7-34.0 [facility] Comment on above: Performed By: #### R ZEESHAN MG #### [facility] [address] [place] [address] Dr. Emilie Jeronimo MCHC (RBC) [Mass/Vol] 33.9 g/dL Normal 29.9-35.2 [facility] Comment on above: Performed By: #### Jovany BYERS MG #### [facility] [address] [place] [address] Dr. Emilie Jeronimo MCV (RBC) [Entitic vol] 95.7 fL Normal 81.0-99.0 [facility] Comment on above: Performed By: #### Jovany BYERS MG #### [facility] [address] [place] [address] Dr. Emilie Jeronimo PLT 214 103/ul Normal 150-450 [facility] Comment on above: Performed By: #### Jovany BYERS MG #### [facility] [address] [place] [address] Dr. Emilie Jeronimo RBC 3.97 106/ul Critically low 4.20-5.40 [facility] Comment on above: Performed By: #### Jovany BYERS MG #### [facility] [address] [place] [address] Dr. Emilie Jeronimo WBC 7.7 103/ul Normal 4.0-11.0 [facility] Comment on above: Performed By: #### Jovany BYERS MG #### [facility] [address] [place] [address] Dr. Emilie Jeronimo MAGNESIUMon 11-29-2022 Magnesium [Mass/Vol] 1.3 mg/dL Critically low 1.8-2.4 [facility] Comment on above: Performed By: #### Jovany BYERS MG #### [facility] [address] [place] [address] Dr. Emilie Jeronimo RENAL FUNCTION PANELon 11-29 Albumin [Mass/Vol] 3.6 g/dL Normal 3.4-5.0 [facility] Comment on above: Performed By: #### R ZEESHAN MG #### [facility] [address] [address] [address] Emilie Jeronimo Calcium [Mass/Vol] 9.4 mg/dL Normal 8.5-10.1 [facility] Comment on above: Performed By: #### R ENAL, MG #### [facility] [address] [place] [address] Dr. Emilie Jeronimo Chloride [Moles/Vol] 103 mmol/L Normal 98-107 [facility] Comment on above: Performed By: #### R ENAL, MG #### [facility] [address] [address] [address] Emilie Jeronimo CO2 [Moles/Vol] 32.5 mmol/L Critically high 21.0-32.0 [facility] Comment on above: Performed By: #### R ENAL, MG #### [facility] [address] [place] [address] Dr. Emilie Jeronimo Creatinine [Mass/Vol] 0.79 mg/dL Normal 0.55-1.02 [facility] Comment on above: Performed By: #### R ENAL, MG #### [facility] [address] [place] [address] Dr. Emilie Jeronimo EGFR-AF MOSOTHO >60 Normal >=60 [facility] Comment on above: Performed By: #### R ENAL, MG #### [facility] [address] [place] [address] Dr. Emilie Jeronimo EGFR-NON AF MOSOTHO >60 Normal >=60 [facility] Comment on above: Performed By: #### R ENAL, MG #### [facility] [address] [place] [address] Dr. Emilie Jeronimo Glucose [Mass/Vol] 95 mg/dL Normal 74-106 [facility] Comment on above: Performed By: #### R ENAL, MG #### [facility] [address] [place] [address] Dr. Emilie Jeronimo Phosphate [Mass/Vol] 4.0 mg/dL Normal 2.6-4.7 [facility] Comment on above: Performed By: #### R ENAL, MG #### [facility] [address] [place] [address] Dr. Emilie Jeronimo Potassium [Moles/Vol] 3.8 mmol/L Normal 3.5-5.1 [facility] Comment on above: Performed By: #### R ENAL, MG #### [facility] [address] [place] [address] Dr. Emilie Jeronimo Sodium [Moles/Vol] 145 mmol/L Normal 136-145 [facility] Comment on above: Performed By: #### R ENAL, MG #### [facility] [address] [place] [address] Dr. Emilie Jeronimo Urea nitrogen [Mass/Vol] 17.0 mg/dL Normal 7.0-18.0 [facility] Comment on above: Performed By: #### R ENAL, MG #### [facility] [address] [place] [address] Dr. Emilie Jeronimo UA RANDOM W/MICROSCOPICon BACTERIA SMALL Abnormal NONE SEEN [facility] Comment on above: Performed By: #### R ENAL, MG #### [facility] [address] [place] [address] Dr. Emilie Jeronimo Bilirubin Ql (U) Negative Normal NEGATIVE [facility] Comment on above: Performed By: #### R ENAL, MG #### [facility] [address] [place] [address] Dr. Emilie Jeronimo CAST NONE SEEN Normal NONE SEEN [facility] Comment on above: Performed By: #### R ENAL, MG #### [facility] [address] [place] [address] Dr. Emilie Jeronimo Clarity (U) SL CLOUDY Abnormal CLEAR [facility] Comment on above: Performed By: #### R ENAL, MG #### [facility] [address] [place] [address] Dr. Emilie Jeronimo Color (U) LT. YELLOW Normal YELLOW [facility] Comment on above: Performed By: #### R ENAL, MG #### [facility] [address] [place] [address] Dr. Emilie Jeronimo Crystals LM Nom (Urine sed) NONE SEEN Normal NONE SEEN [facility] Comment on above: Performed By: #### R ENAL, MG #### [facility] [address] [place] [address] Dr. Emilie Jeronimo Epithelial cells LM Ql (Urine sed) RARE Normal NONE SEEN /RARE [facility] Comment on above: Performed By: #### R ENAL, MG #### [facility] [address] [place] [address] Dr. Emilie Jeronimo Glucose Ql (U) Negative Normal NEGATIVE [facility] Comment on above: Performed By: #### R ENAL, MG #### [facility] [address] [place] [address] Dr. Emilie Jeronimo Hemoglobin Ql (U) TRACE-INTACT Abnormal NEGATIVE [facility] Comment on above: Performed By: #### R ENAL, MG #### [facility] [address] [place] [address] Dr. Emilie Jeronimo Ketones Ql (U) Negative Normal NEGATIVE [facility] Comment on above: Performed By: #### R ENAL, MG #### [facility] [address] [place] [address] Dr. Emilie Jeronimo LEUKOCYTES LARGE Abnormal NEGATIVE [facility] Comment on above: Performed By: #### R ENAL, MG #### [facility] [address] [place] [address] Dr. Emilie Jeronimo MUCOUS TRACE Abnormal NONE SEEN [facility] Comment on above: Performed By: #### R ENAL, MG #### [facility] [address] [place] [address] Dr. Emilie Jeronimo Nitrite Ql (U) Positive Abnormal NEGATIVE [facility] Comment on above: Performed By: #### R ENAL, MG #### [facility] [address] [place] [address] Dr. Emilie Jeronimo pH (U) 6.5 [pH] Normal 5-9 [facility] Comment on above: Performed By: #### R ENAL, MG #### [facility] [address] [place] [address] Dr. Emilie Jeronimo RBC 2-5 Abnormal 0-2 [facility] Comment on above: Performed By: #### Jovany BYERS MG #### [facility] [address] [place] [address] Dr. Emilie Jeronimo SPEC GRAVITY 1.020 Normal 1.005-<=1.025 [facility] Comment on above: Performed By: #### Jovany BYERS MG #### [facility] [address] [place] [address] Dr. Emilie Jeronimo UA PROTEIN TRACE Normal NEGATIVE/ TRACE [facility] Comment on above: Performed By: #### Jovany BYERS MG #### [facility] [address] [place] [address] Dr. Emilie Jeronimo Urobilinogen Qn (U) 1.0 {Fareed'U}/dL Normal 0.2 - 1. 0 [facility] Comment on above: Performed By: #### Jovany BYERS MG #### [facility] [address] [place] [address] Dr. Emilie Jeronimo WBC 20-50 Abnormal NONE SEEN [facility] Comment on above: Performed By: #### Jovany BYERS MG #### [facility] [address] [place] [address] Dr. Emilie Jeronimo VITAMIN D 25 OHon 11-29-2022 VIT D 25-OH 38.1 ng/mL Normal [facility] Comment on above: Performed By: #### Jovany BYERS MG #### [facility] [address] [place] [address] Dr. Emilie Jeronimo VIT D RANGES SEE BELOW Normal [facility] Comment on above: Result Comment: <20 ng/mL Vit D deficient 20 - <30 ng/mL Vit D insufficient 30 - 100 ng/mL Vit D sufficient >100 ng/mL Potential Toxicity Performed By: #### Jovany BYERS MG #### [facility] [address] [place] [address] Dr. Emilie Corral 08-02-2022 L ---- Specimen: [id number] Received: 08/02/22 Status: BIANKA Means Num: [id number] Spec Type: Surgical Subm Dr: Madhav Conrad MD Tissues: A Gastric Biopsy (GASTRIC BX) Procedures: HE Stain/2, Gross/Micro L4 Age/ Patient Sex Location Account Attending Physician Narciso Velasquez 81/F [id number] Madhav Conrad MD SPEC NUM: [id number] RECD: 08/02/22 STATUS: BIANKA MEANS NUM: [id number] SHERLYN: 08/02/[address] [facility] [address]: Madhav Conrad MD ENTERED: 08/02/[address] [facility] DR: SPEC TYPE: Surgical DEPT: S ORDERED: HE Stain/2, Gross/Micro L4 ORDERED: HE Stain/2, Gross/Micro L4 Pathological Diagnosis Stomach, antrum, biopsy: Gastric antral type mucosa with mild reactive/chemical gastropathy. Negative for intestinal metaplasia or dysplasia. Negative helicobacter pylori-like organisms by immunohistochemistry with satisfactory controls. Clinical Information Early satiety, rule out H. pylori Gross Description Received in formalin labeled with the patient's name, number and gastric biopsy is one fragment of soft funes tissue measuring 0.2 cm. Entirely submitted in one cassette labeled A1. Microscopic Description Two glass slides with H E stained material have been examined. The microscopic findings support the above pathologic diagnosis. Specimen: [id number] Received: 08/02/22 Status: BIANKA Means Num: [id number] Spec Type: Surgical Subm Dr: Madhav Conrad MD Tissues: A Gastric Biopsy (GASTRIC BX) Procedures: HE Stain/2, Gross/Micro L4 Patient: Narciso Velasquez Derrick [id number] (Continued) Specimen: [id number] Received: 08/02/22 (Continued) Signed (signature on file) Donita Severino MD 08/04/22 1313 Specimen: [id number] Received: 08/02/22 Status: BIANKA Means Num: [id number] Spec Type: Surgical Subm Dr: Madhav Conrad MD Tissues: A Gastric Biopsy (GASTRIC BX) Procedures: HE Stain/2, Gross/Micro L4 Patient: RonNarciso [id number] (Continued) Specimen: [id number] Received: 08/02/22 (Continued) CPT Codes 76471 Specimen: [id number] Received: 08/02/22 Status: BIANKA Means Num: [id number] Spec Type: Surgical Subm Dr: Madhav Conrad MD Tissues: A Gastric Biopsy (GASTRIC BX) Procedures: HE Stain/2, Gross/Micro L4 Patient: Narciso Velasquez [id number] (Continued) Signed (signature on file) Donita Severino MD 08/04/22 1313 Normal [facility] SARS-CoV-2 (COVID-19) RNA GAUDENCIO+probe Ql (Unsp spec) Negative Normal Negative [facility] Comment on above: Order Comment: 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 This test has not been FDA cleared or approved. This test has been authorized by FDA under an Emergency Use Authorization (EUA). This test has been validated in accordance with the FDA's Guidance Document (Policy for Diagnostics Testing in Laboratories Certified to Perform High Complexity Testing under CLIA prior to Emergency Use Authorization for Coronavirus Disease-2019 during the Public Health Emergency) issued on January 30, 2020. This test is only authorized for the duration of time the declaration that circumstances exist justifying the authorization of the emergency use of in vitro diagnostic tests for detection of SARS-CoV-2 virus and/or diagnosis of COVID-19 infection under section 564(b)(1) of the Act, 21 U.S.C. 360bbb-3(b)(1), unless the authorization is terminated or revoked sooner. PERFORMED BY: [place] [address] PATHOLOGIST BUSINESS ATTORNEY CHELSY MAHMOOD M.D. Performed By: #### C OVID 19 [facility] #### [address] COVID-19 Positive/NegativeOr dered By: Madhav Conrad on 07-29-2022 SARS-CoV-2 (COVID-19) N gene GAUDENCIO+probe Ql (Resp) Negative Negative [facility] Comment on above: Testing for SARS-CoV -2 by RT-PCRThis test was developed and its performance characteristics determined by [employer]) and validated at the [facility]. This test has not been FDA cleared or approved. This test has been authorized by FDA under an Emergency Use Authorization (EUA). This test has been validated in accordance with the FDA's Guidance Document (Policy for Diagnostics Testing in Laboratories Certified to Perform High Complexity Testing under CLIA prior to Emergency Use Authorization for Coronavirus Disease-2019 during the Public Health Emergency) issued on January 30, 2020. This test is only authorized for the duration of time the declaration that circumstances exist justifying the authorization of the emergency use of in vitro diagnostic tests for detection of SARS-CoV-2 virus and/or diagnosis of COVID-19 infection under section 564(b)(1) of the Act, 21 U.S.C. 360bbb-3(b)(1), unless the authorization is terminated or revoked sooner. CBC AUTO DIFFon 07-11-2022 BASO # 0.1 103/ul Normal 0.0-0.1 [facility] Comment on above: Performed By: #### C BC #### [facility] [address] [place] [address] Dr. Emilie Jeronimo Basophils/100 WBC (Bld) 0.6 % Normal 0.2-2.0 [facility] Comment on above: Performed By: #### C BC #### [facility] [address] [place] [address] Dr. Emilie Jeronimo EO # 0.2 103/ul Normal 0.0-0.7 [facility] Comment on above: Performed By: #### C BC #### [facility] [address] [place] [address] Dr. Emilie Jeronimo Eosinophils/100 WBC (Bld) 1.9 % Normal 0.9-7.0 [facility] Comment on above: Performed By: #### C BC #### [facility] [address] [place] [address] Dr. Emilie Jeronimo Erythrocyte distribution width (RBC) [Ratio] 13.2 % Normal 11.0-15.0 [facility] Comment on above: Performed By: #### C BC #### [facility] [address] [place] [address] Dr. Emilie Jeronimo Hematocrit (Bld) [Volume fraction] 37.9 % Normal 36.0-48.0 [facility] Comment on above: Performed By: #### C BC #### [facility] [address] [place] [address] Dr. Emilie Jeronimo Hemoglobin (Bld) [Mass/Vol] 12.2 g/dL Normal 12.0-16.0 [facility] Comment on above: Performed By: #### C BC #### [facility] [address] [place] [address] Dr. Emilie Jeronimo IG # 0.03 10e3/ul Normal 0.00-0.03 [facility] Comment on above: Performed By: #### C BC #### [facility] [address] [place] [address] Dr. Emilie Jeronimo IG % 0.4 % Normal 0.0-0.5 [facility] Comment on above: Performed By: #### C BC #### [facility] [address] [address] [address] Emilie Jeronimo LYMPH # 2.3 103/ul Normal 1.2-3.8 [facility] Comment on above: Performed By: #### C BC #### [facility] [address] [place] [address] Dr. Emilie Jeronimo Lymphocytes/100 WBC (Bld) 29.0 % Normal 20.5-60.0 [facility] Comment on above: Performed By: #### C BC #### [facility] [address] [place] [address] Dr. Emilie Jeronimo MANUAL DIFF REQ NO Normal [facility] Comment on above: Performed By: #### C BC #### [facility] [address] [place] [address] Dr. Emilie Jeronimo MCH (RBC) [Entitic mass] 32.4 pg Normal 26.7-34.0 [facility] Comment on above: Performed By: #### C BC #### [facility] [address] [place] [address] Dr. Emilie Jeronimo MCHC (RBC) [Mass/Vol] 32.2 g/dL Normal 29.9-35.2 [facility] Comment on above: Performed By: #### C BC #### [facility] [address] [place] [address] Dr. Emilie Jeronimo MCV (RBC) [Entitic vol] 100.5 fL Critically high 81.0-99.0 [facility] Comment on above: Performed By: #### C BC #### [facility] [address] [place] [address] Dr. Emilie Jeronimo MONO # 0.6 103/ul Normal 0.3-0.8 [facility] Comment on above: Performed By: #### C BC #### [facility] [address] [place] [address] Dr. Emilie Jeronimo Monocytes/100 WBC (Bld) 7.9 % Normal 1.7-12.0 [facility] Comment on above: Performed By: #### C BC #### [facility] [address] [place] [address] Dr. Emilie Jeronimo NEUT # 4.7 103/ul Normal 1.4-6.5 [facility] Comment on above: Performed By: #### C BC #### [facility] [address] [place] [address] Dr. Emilie Jeronimo Neutrophils/100 WBC (Bld) 60.2 % Normal 43.0-75.0 [facility] Comment on above: Performed By: #### C BC #### [facility] [address] [place] [address] Dr. Emilie Jeronimo Platelet mean volume (Bld) [Entitic vol] 10.0 fL Normal 9.5-13.5 [facility] Comment on above: Performed By: #### C BC #### [facility] [address] [place] [address] Dr. Emilie Jeronimo PLT 234 103/ul Normal 150-450 [facility] Comment on above: Performed By: #### C BC #### [facility] [address] [place] [address] Dr. Emilie Jeronimo RBC 3.77 106/ul Critically low 4.20-5.40 [facility] Comment on above: Performed By: #### C BC #### [facility] [address] [place] [address] Dr. Emilie Jeronimo WBC 7.8 103/ul Normal 4.0-11.0 [facility] Comment on above: Performed By: #### C BC #### [facility] [address] [place] [address] Dr. Emilie Jeronimo FREE T4on 07-11-2022 Free T4 [Mass/Vol] 0.79 ng/dL Normal 0.76-1.46 [facility] Comment on above: Performed By: #### R ENMICHELLE, MG #### [facility] [address] [place] [address] Dr. Emilie Jeronimo PROF 14(COMP METB)on 022 Albumin [Mass/Vol] 3.7 g/dL Normal 3.4-5.0 [facility] Comment on above: Performed By: #### R ENMICHELLE, MG #### [facility] [address] [place] [address] Dr. Emilie Jeronimo Albumin/Globulin [Mass ratio] 1.2 {ratio} Normal [facility] Comment on above: Performed By: #### R ZEESHAN, MG #### [facility] [address] [place] [address] Dr. Emilie Jeronimo ALP [Catalytic activity/Vol] 53 U/L Normal 46-116 [facility] Comment on above: Performed By: #### R ZEESHAN, MG #### [facility] [address] [place] [address] Dr. Emilie Jeronimo ALT [Catalytic activity/Vol] 26 U/L Normal 14-59 [facility] Comment on above: Performed By: #### R ZEESHAN, MG #### [facility] [address] [place] [address] Dr. Emilie Jeronimo Anion gap [Moles/Vol] 8.9 mmol/L Normal [facility] Comment on above: Performed By: #### R ENMICHELLE, MG #### [facility] [address] [place] [address] Dr. Emilie Jeronimo AST [Catalytic activity/Vol] 18 U/L Normal 15-37 [facility] Comment on above: Performed By: #### R ENMICHELLE, MG #### [facility] [address] [place] [address] Dr. Emilie Jeronimo Bilirubin [Mass/Vol] 0.3 mg/dL Normal 0.2-1.0 [facility] Comment on above: Performed By: #### R ENMICHELLE, MG #### [facility] [address] [place] [address] Dr. Emilie Jeronimo Calcium [Mass/Vol] 9.1 mg/dL Normal 8.5-10.1 [facility] Comment on above: Performed By: #### R ENMICHELLE, MG #### [facility] [address] [place] [address] Dr. Emilie Jeronimo Chloride [Moles/Vol] 104 mmol/L Normal 98-107 [facility] Comment on above: Performed By: #### R ENMICHELLE, MG #### [facility] [address] [place] [address] Dr. Emilie Jeronimo CO2 [Moles/Vol] 34.8 mmol/L Critically high 21.0-32.0 [facility] Comment on above: Performed By: #### R ENMICHELLE, MG #### [facility] [address] [place] [address] Dr. Emilie Jeronimo Creatinine [Mass/Vol] 0.73 mg/dL Normal 0.55-1.02 [facility] Comment on above: Performed By: #### R ENMICHELLE, MG #### [facility] [address] [place] [address] Dr. Emilie Jeronimo EGFR-AF MOSOTHO >60 Normal >=60 [facility] Comment on above: Performed By: #### R ENMICHELLE, MG #### [facility] [address] [place] [address] Dr. Emilie Jeronimo EGFR-NON AF MOSOTHO >60 Normal >=60 [facility] Comment on above: Performed By: #### R ENMICHELLE, MG #### [facility] [address] [place] [address] Dr. Emilie Jeronimo Globulin (S) [Mass/Vol] 3.2 g/dL Normal [facility] Comment on above: Performed By: #### R ENMICHELLE, MG #### [facility] [address] [place] [address] Dr. Emilie Jeronimo Glucose [Mass/Vol] 109 mg/dL Critically high 74-106 [facility] Comment on above: Performed By: #### R ZEESHAN, MG #### [facility] [address] [place] [address] Dr. Emilie Jeronimo Potassium [Moles/Vol] 3.7 mmol/L Normal 3.5-5.1 [facility] Comment on above: Performed By: #### R ZEESHAN, MG #### [facility] [address] [place] [address] Dr. Emilie Jeronimo Protein [Mass/Vol] 6.9 g/dL Normal 6.4-8.2 [facility] Comment on above: Performed By: #### R ENMICHELLE, MG #### [facility] [address] [place] [address] Dr. Emilie Jeronimo Sodium [Moles/Vol] 144 mmol/L Normal 136-145 [facility] Comment on above: Performed By: #### R ENMICHELLE, MG #### [facility] [address] [place] [address] Dr. Emilie Jeronimo Urea nitrogen [Mass/Vol] 20.0 mg/dL Critically high 7.0-18.0 [facility] Comment on above: Performed By: #### R ZEESHAN, MG #### [facility] [address] [place] [address] Dr. Emilie Jeronimo Urea nitrogen/Creatinine [Mass ratio] 27.4 mg/mg Normal [facility] Comment on above: Performed By: #### R ZEESHAN, MG #### [facility] [address] [place] [address] Dr. Emilie Jeronimo TSHon 07-11-2022 TSH 3.616 uIU/mL Normal 0.358-3.740 [facility] Comment on above: Performed By: #### R ENAL, MG #### [facility] [address] [place] [address] Dr. Emilie Jeronimo VITAMIN B12on 07-11-2022 Cobalamin (Vitamin B12) [Mass/Vol] 321.0 pg/mL Normal 193.0-986.0 [facility] Comment on above: Performed By: #### R ENMICHELLE, MG #### [facility] [address] [place] [address] Dr. Emilie Jeronimo Tobacco Screening.on 022 Fall risk assessment a) No falls within the last year [facility] [address] DO Work Phone: Tobacco use status [facility] b) No -[facility] DO Work Phone: CBC AUTO DIFFon 06-15-2022 BASO # 0.0 103/ul Normal 0.0-0.1 [facility] Comment on above: Performed By: #### C BC #### [facility] [address] [place] [address] Dr. Emilie Jeronimo Basophils/100 WBC (Bld) 0.4 % Normal 0.2-2.0 [facility] Comment on above: Performed By: #### C BC #### [facility] [address] [place] [address] Dr. Emilie Jeronimo EO # 0.2 103/ul Normal 0.0-0.7 [facility] Comment on above: Performed By: #### C BC #### [facility] [address] [place] [address] Dr. Emilie Jeronimo Eosinophils/100 WBC (Bld) 2.4 % Normal 0.9-7.0 [facility] Comment on above: Performed By: #### C BC #### [facility] [address] [place] [address] Dr. Emilie Jeronimo Erythrocyte distribution width (RBC) [Ratio] 12.8 % Normal 11.0-15.0 [facility] Comment on above: Performed By: #### C BC #### [facility] [address] [place] [address] Dr. Emilie Jeronimo Hematocrit (Bld) [Volume fraction] 38.3 % Normal 36.0-48.0 [facility] Comment on above: Performed By: #### C BC #### [facility] [address] [place] [address] Dr. Emilie Jeronimo Hemoglobin (Bld) [Mass/Vol] 12.5 g/dL Normal 12.0-16.0 [facility] Comment on above: Performed By: #### C BC #### [facility] [address] [place] [address] Dr. Emilie Jeronimo IG # 0.04 10e3/ul Critically high 0.00-0.03 [facility] Comment on above: Performed By: #### C BC #### [facility] [address] [place] [address] Dr. Emilie Jeronimo IG % 0.6 % Critically high 0.0-0.5 [facility] Comment on above: Performed By: #### C BC #### [facility] [address] [place] [address] Dr. Emilie Jeronimo LYMPH # 1.9 103/ul Normal 1.2-3.8 [facility] Comment on above: Performed By: #### C BC #### [facility] [address] [place] [address] Dr. Emilie Jeronimo Lymphocytes/100 WBC (Bld) 27.9 % Normal 20.5-60.0 [facility] Comment on above: Performed By: #### C BC #### [facility] [address] [place] [address] Dr. Emilie Jeronimo MANUAL DIFF REQ NO Normal [facility] Comment on above: Performed By: #### C BC #### [facility] [address] [place] [address] Dr. Emilie Jeronimo MCH (RBC) [Entitic mass] 32.2 pg Normal 26.7-34.0 [facility] Comment on above: Performed By: #### C BC #### [facility] [address] [place] [address] Dr. Emilie Jeronimo MCHC (RBC) [Mass/Vol] 32.6 g/dL Normal 29.9-35.2 [facility] Comment on above: Performed By: #### C BC #### [facility] [address] [place] [address] Dr. Emilie Jeronimo MCV (RBC) [Entitic vol] 98.7 fL Normal 81.0-99.0 [facility] Comment on above: Performed By: #### C BC #### [facility] [address] [place] [address] Dr. Emilie Jeronimo MONO # 0.5 103/ul Normal 0.3-0.8 [facility] Comment on above: Performed By: #### C BC #### [facility] [address] [place] [address] Dr. Emilie Jeronimo Monocytes/100 WBC (Bld) 7.3 % Normal 1.7-12.0 [facility] Comment on above: Performed By: #### C BC #### [facility] [address] [place] [address] Dr. Emilie Jeronimo NEUT # 4.1 103/ul Normal 1.4-6.5 [facility] Comment on above: Performed By: #### C BC #### [facility] [address] [place] [address] Dr. Emilie Jeronimo Neutrophils/100 WBC (Bld) 61.4 % Normal 43.0-75.0 [facility] Comment on above: Performed By: #### C BC #### [facility] [address] [place] [address] Dr. Emilie Jeronimo Platelet mean volume (Bld) [Entitic vol] 9.2 fL Critically low 9.5-13.5 [facility] Comment on above: Performed By: #### C BC #### [facility] [address] [place] [address] Dr. Emilie Jeronimo PLT 201 103/ul Normal 150-450 [facility] Comment on above: Performed By: #### C BC #### [facility] [address] [place] [address] Dr. Emilie Jeronimo RBC 3.88 106/ul Critically low 4.20-5.40 [facility] Comment on above: Performed By: #### C BC #### [facility] [address] [place] [address] Dr. Emilie Jeronimo WBC 6.7 103/ul Normal 4.0-11.0 [facility] Comment on above: Performed By: #### C BC #### [facility] [address] [place] [address] Dr. Emilie Jeronimo LIPID PROFILEon 06-15-2022 CHOL-HDL RATIO NORM SEE BELOW Normal [facility] Comment on above: Result Comment: 3.3 - 4.4 LOW RISK 4.4 - 7.1 AVERAGE RISK 7.1 - 11.0 MODERATE RISK >11.0 HIGH RISK Performed By: #### A ST, ALT, LIPID, BMP #### [facility] [address] [address] [address] Emilie Jeronimo Cholesterol [Mass/Vol] 124 mg/dL Normal <=200 [facility] Comment on above: Performed By: #### A ST, ALT, LIPID, BMP #### [facility] [address] [address] [address] Emilie Jeronimo Cholesterol in HDL [Mass/Vol] 81 mg/dL Critically high 40-60 [facility] Comment on above: Performed By: #### A ST, ALT, LIPID, BMP #### [facility] [address] [address] [address] Emilie Jeronimo Cholesterol in LDL [Mass/Vol] 27.6 mg/dL Normal [facility] Comment on above: Performed By: #### A ST, ALT, LIPID, BMP #### [facility] [address] [address] [address] Emilie Jeronimo Cholesterol.total/C holesterol in HDL [Mass ratio] 1.5 {ratio} Normal [facility] Comment on above: Performed By: #### A ST, ALT, LIPID, BMP #### [facility] [address] [address] [address] Emilie Jeronimo HDL NORMAL > or = 60 mg/dl - LO W CARDIOVASCULAR RISK <40 mg/dl - HIGH CARDIOVASCULAR RISK Normal [facility] Comment on above: Performed By: #### A ST, ALT, LIPID, BMP #### [facility] [address] [address] [address] Emilie Jeronimo LDL CALC NORMAL SEE BELOW Normal [facility] Comment on above: Result Comment: <100 mg/dl OPTIMAL 100 - 129 mg/dl NEAR OR ABOVE OPTIMAL 130 - 159 mg/dl BORDERLINE HIGH 160 - 189 mg/dl HIGH >190 mg/dl VERY HIGH Performed By: #### A ST, ALT, LIPID, BMP #### [facility] [address] [address] [address] Emilie Jeronimo Triglyceride [Mass/Vol] 77 mg/dL Normal <=150 [facility] Comment on above: Performed By: #### A ST, ALT, LIPID, BMP #### [facility] [address] [address] [address] Emilie Jeronimo VLDL CALC 15.4 mg/dL Normal [facility] Comment on above: Performed By: #### A ST, ALT, LIPID, BMP #### [facility] [address] [address] [address] Emilie Jeronimo PROF CHEM 8 (BAS METB)on Anion gap [Moles/Vol] 12.7 mmol/L Normal [facility] Comment on above: Performed By: #### A ST, ALT, LIPID, BMP #### [facility] [address] [place] [address] Dr. Emilie Jeronimo Calcium [Mass/Vol] 8.5 mg/dL Normal 8.5-10.1 [facility] Comment on above: Performed By: #### A ST, ALT, LIPID, BMP #### [facility] [address] [place] [address] Dr. Emilie Jeronimo Chloride [Moles/Vol] 102 mmol/L Normal 98-107 [facility] Comment on above: Performed By: #### A ST, ALT, LIPID, BMP #### [facility] [address] [place] [address] Dr. Emilie Jeronimo CO2 [Moles/Vol] 30.1 mmol/L Normal 21.0-32.0 [facility] Comment on above: Performed By: #### A ST, ALT, LIPID, BMP #### [facility] [address] [place] [address] Dr. Emilie Jeronimo Creatinine [Mass/Vol] 0.76 mg/dL Normal 0.55-1.02 [facility] Comment on above: Performed By: #### A ST, ALT, LIPID, BMP #### [facility] [address] [place] [address] Dr. Emilie Jeronimo EGFR-AF MOSOTHO >60 Normal >=60 [facility] Comment on above: Performed By: #### A ST, ALT, LIPID, BMP #### [facility] [address] [address] [address] Emilie Jeronimo EGFR-NON AF MOSOTHO >60 Normal >=60 [facility] Comment on above: Performed By: #### A ST, ALT, LIPID, BMP #### [facility] [address] [address] [address] Emilie Jeronimo Glucose [Mass/Vol] 97 mg/dL Normal 74-106 [facility] Comment on above: Performed By: #### A ST, ALT, LIPID, BMP #### [facility] [address] [address] [address] Emilie Jeronimo Potassium [Moles/Vol] 3.8 mmol/L Normal 3.5-5.1 [facility] Comment on above: Performed By: #### A ST, ALT, LIPID, BMP #### [facility] [address] [address] [address] Emilie Jeronimo Sodium [Moles/Vol] 141 mmol/L Normal 136-145 [facility] Comment on above: Performed By: #### A ST, ALT, LIPID, BMP #### [facility] [address] [place] [address] Dr. Emilie Jeronimo Urea nitrogen [Mass/Vol] 21.0 mg/dL Critically high 7.0-18.0 [facility] Comment on above: Performed By: #### A ST, ALT, LIPID, BMP #### [facility] [address] [address] [address] Emilie Jeronimo Urea nitrogen/Creatinine [Mass ratio] 27.6 mg/mg Normal [facility] Comment on above: Performed By: #### A ST, ALT, LIPID, BMP #### [facility] [address] [place] [address] Dr. Emilie Jeronimo SGJessica 06-15-2022 AST [Catalytic activity/Vol] 22 U/L Normal 15-37 [facility] Comment on above: Performed By: #### A ST, ALT, LIPID, BMP #### [facility] [address] [place] [address] Dr. Emilie Jeronimo SGPTon 06-15-2022 ALT [Catalytic activity/Vol] 21 U/L Normal 14-59 [facility] Comment on above: Performed By: #### A ST, ALT, LIPID, BMP #### [facility] [address] [place], [place] [address] ABD/PELVIS WO CONon 04-21 CT ABD/PELVIS WO CON EXAMINATION: CT ABD/PELVIS WO CON HISTORY: Abdominal pain ; lower abdominal pain, chronic constipation COMPARISON: CT abdomen pelvis 01/19/2021 TECHNIQUE: Axial, Coronal, and Sagittal images were created without IV contrast. Dose reduction techniques were achieved by using automated exposure control and/or adjustment of mA and/or kV according to patient size and/or use of iterative reconstruction technique. FINDINGS: LUNG BASES: No visible pulmonary or pleural disease. LIVER: No enlargement, atrophy, suspicious density, or significant focal lesion. BILIARY: Cholecystectomy. PANCREAS: No lesion, fluid collection, or abnormal duct dilatation. SPLEEN: No enlargement or focal lesion. ADRENALS: No mass or enlargement. KIDNEYS: 2 mm nonobstructing stone within left kidney. Mild atrophy bilaterally. BOWEL/MESENTERY: Prior distal sigmoid resection and anastomosis. Large amount of dense stool throughout the colon. No visible mass, obstruction, or bowel wall thickening. Unremarkable small bowel and stomach. 2.8 cm duodenal diverticulum. AORTA/VASCULAR: No aneurysm or dissection. RETROPERITONEUM: No mass or adenopathy. LYMPH NODES: No adenopathy. URINARY BLADDER: No visible focal wall thickening, lesion, or calculus. PELVIC ORGANS: Hysterectomy. ABDOMINAL WALL: Mild eventration of the lower anterior abdominal wall at site of prior surgical incision. BONES: No bony lesion or fracture. OTHER: Negative. IMPRESSION: 1. Large stool burden consistent with constipation; no fecal impaction or bowel obstruction. 2. Nonobstructing left nephrolithiasis. 3. Lower anterior abdominal wall eventration versus broad-based hernia; unchanged. Electronically authenticated by: JAYLEEN GREER Date: 2022-04-21 10:40 Normal [facility] PTH INTACTon 03-24-2022 PTH, Intact 4 pg/mL Critically low 15-65 [facility] Comment on above: Performed By: #### P THINT #### [facility] [address] [place] [address] Dr. Emilie Jeronimo CBC AUTO DIFFon 03-23-2022 BASO # 0.0 103/ul Normal 0.0-0.1 [facility] Comment on above: Performed By: #### R ENAL, MG #### [facility] [address] [place] [address] Dr. Emilie Jeronimo Basophils/100 WBC (Bld) 0.5 % Normal 0.2-2.0 [facility] Comment on above: Performed By: #### R ENAL, MG #### [facility] [address] [place] [address] Dr. Emilie Jeronimo EO # 0.1 103/ul Normal 0.0-0.7 [facility] Comment on above: Performed By: #### R ENAL, MG #### [facility] [address] [place] [address] Dr. Emilie Jeronimo Eosinophils/100 WBC (Bld) 1.3 % Normal 0.9-7.0 [facility] Comment on above: Performed By: #### R ENAL, MG #### [facility] [address] [place] [address] Dr. Emilie Jeronimo Erythrocyte distribution width (RBC) [Ratio] 13.0 % Normal 11.0-15.0 [facility] Comment on above: Performed By: #### R ENAL, MG #### [facility] [address] [place] [address] Dr. Emilie Jeronimo Hematocrit (Bld) [Volume fraction] 34.2 % Critically low 36.0-48.0 [facility] Comment on above: Performed By: #### R ENAL, MG #### [facility] [address] [place] [address] Dr. Emilie Jeronimo Hemoglobin (Bld) [Mass/Vol] 11.3 g/dL Critically low 12.0-16.0 [facility] Comment on above: Performed By: #### R ENAL, MG #### [facility] [address] [place] [address] Dr. Emilie Jeronimo IG # 0.02 10e3/ul Normal 0.00-0.03 [facility] Comment on above: Performed By: #### R ENAL, MG #### [facility] [address] [place] [address] Dr. Emilie Jeronimo IG % 0.3 % Normal 0.0-0.5 [facility] Comment on above: Performed By: #### R ENAL, MG #### [facility] [address] [place] [address] Dr. Emilie Jeronimo LYMPH # 1.4 103/ul Normal 1.2-3.8 [facility] Comment on above: Performed By: #### R ENAL, MG #### [facility] [address] [place] [address] Dr. Emilie Jeronimo Lymphocytes/100 WBC (Bld) 24.0 % Normal 20.5-60.0 [facility] Comment on above: Performed By: #### R ENAL, MG #### [facility] [address] [place] [address] Dr. Emilie Jeronimo MANUAL DIFF REQ NO Normal [facility] Comment on above: Performed By: #### R ENAL, MG #### [facility] [address] [place] [address] Dr. Emilie Jeronimo MCH (RBC) [Entitic mass] 32.5 pg Normal 26.7-34.0 [facility] Comment on above: Performed By: #### R ENAL, MG #### [facility] [address] [place] [address] Dr. Emilie Jeronimo MCHC (RBC) [Mass/Vol] 33.0 g/dL Normal 29.9-35.2 [facility] Comment on above: Performed By: #### R ENAL, MG #### [facility] [address] [place] [address] Dr. Emilie Jeronimo MCV (RBC) [Entitic vol] 98.3 fL Normal 81.0-99.0 [facility] Comment on above: Performed By: #### R ENAL, MG #### [facility] [address] [place] [address] Dr. Emilie Jeronimo MONO # 0.5 103/ul Normal 0.3-0.8 [facility] Comment on above: Performed By: #### R ZEESHAN MG #### [facility] [address] [place] [address] Dr. Emilie Jeronimo Monocytes/100 WBC (Bld) 8.7 % Normal 1.7-12.0 [facility] Comment on above: Performed By: #### Jovany BYERS, MG #### [facility] [address] [place] [address] Dr. Emilie Jeronimo NEUT # 3.9 103/ul Normal 1.4-6.5 [facility] Comment on above: Performed By: #### Jovany BYERS, MG #### [facility] [address] [place] [address] Dr. Emilie Jeronimo Neutrophils/100 WBC (Bld) 65.2 % Normal 43.0-75.0 [facility] Comment on above: Performed By: #### Jovany BYERS, MG #### [facility] [address] [place] [address] Dr. Emilie Jeronimo Platelet mean volume (Bld) [Entitic vol] 10.0 fL Normal 9.5-13.5 [facility] Comment on above: Performed By: #### Jovany BYERS, MG #### [facility] [address] [place] [address] Dr. Emilie Jeronimo PLT 197 103/ul Normal 150-450 [facility] Comment on above: Performed By: #### oJvany BYERS, MG #### [facility] [address] [place] [address] Dr. Emilie Jeronimo RBC 3.48 106/ul Critically low 4.20-5.40 [facility] Comment on above: Performed By: #### Jovany BYERS, MG #### [facility] [address] [place] [address] Dr. Emilie Jeronimo WBC 6.0 103/ul Normal 4.0-11.0 [facility] Comment on above: Performed By: #### Jovany BYERS, MG #### [facility] [address] [place] [address] Dr. Emilie Jeronimo PROF CHEM 8 (BAS METB)on Anion gap [Moles/Vol] 10.3 mmol/L Normal [facility] Comment on above: Performed By: #### R ENAL, MG #### [facility] [address] [place] [address] Dr. Emilie Jeronimo Calcium [Mass/Vol] 6.1 mg/dL Critically low 8.5-10.1 [facility] Comment on above: Performed By: #### R ENAL, MG #### [facility] [address] [address] [address] Emilie Jeronimo Chloride [Moles/Vol] 103 mmol/L Normal 98-107 [facility] Comment on above: Performed By: #### R ENAL, MG #### [facility] [address] [place] [address] Dr. Emilie Jeronimo CO2 [Moles/Vol] 31.8 mmol/L Normal 21.0-32.0 [facility] Comment on above: Performed By: #### R ENAL, MG #### [facility] [address] [place] [address] Dr. Emilie Jeronimo Creatinine [Mass/Vol] 0.70 mg/dL Normal 0.55-1.02 [facility] Comment on above: Performed By: #### R ENAL, MG #### [facility] [address] [place] [address] Dr. Emilie Jeronimo EGFR-AF MOSOTHO >60 Normal >=60 [facility] Comment on above: Performed By: #### R ENAL, MG #### [facility] [address] [place] [address] Dr. Emilie Jeronimo EGFR-NON AF MOSOTHO >60 Normal >=60 [facility] Comment on above: Performed By: #### R ENAL, MG #### [facility] [address] [place] [address] Dr. Emilie Jeronimo Glucose [Mass/Vol] 120 mg/dL Critically high 74-106 [facility] Comment on above: Performed By: #### R ENAL, MG #### [facility] [address] [place] [address] Dr. Emilie Jeronimo Potassium [Moles/Vol] 3.1 mmol/L Critically low 3.5-5.1 [facility] Comment on above: Performed By: #### R ENAL, MG #### [facility] [address] [place] [address] Dr. Emilie Jeronimo Sodium [Moles/Vol] 142 mmol/L Normal 136-145 [facility] Comment on above: Performed By: #### R ENAL, MG #### [facility] [address] [place] [address] Dr. Emilie Jeronimo Urea nitrogen [Mass/Vol] 21.0 mg/dL Critically high 7.0-18.0 [facility] Comment on above: Performed By: #### R ENAL, MG #### [facility] [address] [place] [address] Dr. Emilie Jeronimo Urea nitrogen/Creatinine [Mass ratio] 30.0 mg/mg Normal [facility] Comment on above: Performed By: #### R ENAL, MG #### [facility] [address] [place] [address] Dr. Emilie Jeronimo MAGNESIUMon 03-22-2022 Magnesium [Mass/Vol] 1.5 mg/dL Critically low 1.8-2.4 [facility] Comment on above: Performed By: #### R ENAL, MG #### [facility] [address] [place] [address] Dr. Emilie Jeronimo RENAL FUNCTION PANELon 03-22 Albumin [Mass/Vol] 3.6 g/dL Normal 3.4-5.0 [facility] Comment on above: Performed By: #### R ENAL, MG #### [facility] [address] [place] [address] Dr. Emilie Jeronimo Calcium [Mass/Vol] 6.4 mg/dL Critically low 8.5-10.1 [facility] Comment on above: Performed By: #### R ENAL, MG #### [facility] [address] [place] [address] Dr. Emilie Jeronimo Chloride [Moles/Vol] 101 mmol/L Normal 98-107 [facility] Comment on above: Performed By: #### R ZEESHAN, MG #### [facility] [address] [address] [address] Emilie Jeronimo CO2 [Moles/Vol] 31.4 mmol/L Normal 21.0-32.0 [facility] Comment on above: Performed By: #### R ZEESHAN, MG #### [facility] [address] [address] [address] Emilie Jeronimo Creatinine [Mass/Vol] 0.77 mg/dL Normal 0.55-1.02 [facility] Comment on above: Performed By: #### R ZEESHAN, MG #### [facility] [address] [place] [address] Dr. Emilie Jeronimo EGFR-AF MOSOTHO >60 Normal >=60 [facility] Comment on above: Performed By: #### R ZEESHAN, MG #### [facility] [address] [place] [address] Dr. Emilie Jeronimo EGFR-NON AF MOSOTHO >60 Normal >=60 [facility] Comment on above: Performed By: #### R EZESHAN, MG #### [facility] [address] [place] [address] Dr. Emilie Jeronimo Glucose [Mass/Vol] 150 mg/dL Critically high 74-106 [facility] Comment on above: Performed By: #### R ZEESHAN, MG #### [facility] [address] [place] [address] Dr. Emilie Jeronimo Phosphate [Mass/Vol] 4.8 mg/dL Critically high 2.6-4.7 [facility] Comment on above: Performed By: #### R ZEESHAN, MG #### [facility] [address] [place] [address] Dr. Emilie Jeronimo Potassium [Moles/Vol] 2.7 mmol/L Critically low 3.5-5.1 [facility] Comment on above: Result Comment: TEST REPEATED CRITICAL VALUE VERIFIED Performed By: #### R ZEESHAN, MG #### [facility] [address] [address] [address] Emilie Jeronimo Sodium [Moles/Vol] 142 mmol/L Normal 136-145 [facility] Comment on above: Performed By: #### R ENAL, MG #### [facility] [address] [place] [address] Dr. Emilie Jeronimo Urea nitrogen [Mass/Vol] 29.0 mg/dL Critically high 7.0-18.0 [facility] Comment on above: Performed By: #### R ENAL, MG #### [facility] [address] [place] [address] Dr. Emilie Jeronimo VITAMIN D 25 OHon 03-22-2022 VIT D 25-OH 32.5 ng/mL Normal [facility] Comment on above: Performed By: #### V ITAD #### [facility] [address] [place] [address] Dr. Emilie Jeronimo VIT D RANGES SEE BELOW Normal [facility] Comment on above: Result Comment: <20 ng/mL Vit D deficient 20 - <30 ng/mL Vit D insufficient 30 - 100 ng/mL Vit D sufficient >100 ng/mL Potential Toxicity Performed By: #### V ITAD #### [facility] [address] [place] [address] Dr. Emilie Jeronimo Tobacco Screening.on 022 Adult depression screening assessment No [facility] DO Work Phone: Fall risk assessment a) No falls within the last year [facility] DO Work Phone: Tobacco use status CPHS b) No [facility] DO Work Phone: Automated erythrocytes count in urine sediment (number/area)on 02-17-2021 RBC Auto (Urine sed) [#/Area] 0-1 [HPF] [facility] Automated leukocytes count i n urine sediment (number/area)on 02-17-2021 WBC Auto (Urine sed) [#/Area] 20-49 [HPF] [facility] Basophils Auto (Bld) [#/Vol] on 02-17-2021 Basophils (Bld) [#/Vol] 0.1 10*3/uL 0.0-0.2 [facility] Basophils/100 WBC Auto (Bld) on 02-17-2021 Basophils/100 WBC (Bld) 0.8 % [facility] Bilirubin Test strip Ql (U)o n 02-17-2021 Bilirubin Ql (U) Negative Negative [facility] Blood hemoglobin measurement (mass/volume)on 02-17-2021 Hemoglobin (Bld) [Mass/Vol] 12.6 g/dL 11.8-15.4 [facility] Blood leukocytes automated c ount (number/volume)on 02-17-2021 WBC (Bld) [#/Vol] 7.3 10*3/uL 4.5-11.0 [facility] Color Auto (U)on 02-17-2021 Color (U) Yellow Yellow [facility] Creatinine and Glomerular fi ltration rate.predicted panel (S/P/Bld)on 02-17-2021 Creatinine [Mass/Vol] 0.78 mg/dL 0.44-1.03 [facility] Eosinophils Auto (Bld) [#/Vo l]on 02-17-2021 Eosinophils (Bld) [#/Vol] 0.2 10*3/uL 0.0-0.45 [facility] Eosinophils/100 WBC Auto (Bl d)on 02-17-2021 Eosinophils/100 WBC (Bld) 2.2 % [facility] Erythrocyte distribution wid th Auto (RBC) [Ratio]on 02-17-2021 Erythrocyte distribution width (RBC) [Ratio] 14.5 % 11.9-15.3 [facility] Estimated glomerular filtrat ion rate (GFR) non- Americanon 02-17-2021 GFR/1.73 sq M.predicted among non-blacks MDRD (S/P/Bld) [Vol rate/Area] > 60 mL/Min [facility] Hematocrit Auto (Bld) [Volum e fraction]on 02-17-2021 Hematocrit (Bld) [Volume fraction] 37.5 % 34.0-46.4 [facility] Ketones Auto test strip (U) [Mass/Vol]on 02-17-2021 Ketones (U) [Mass/Vol] Negative Negative [facility] Laboratory - Hematology and Cell countson 02-17-2021 Nucleated RBC/100 WBC (Bld) [Ratio] 0.0 % 0-0.5 [facility] - Urinalysison Hyaline casts LM Ql (Urine sed) 0-8 [LPF] [facility] Lymphocytes Auto (Bld) [#/Vo l]on 02-17-2021 Lymphocytes (Bld) [#/Vol] 1.6 10*3/uL 1.00-4.8 [facility] Lymphocytes/100 WBC Auto (Bl d)on 02-17-2021 Lymphocytes/100 WBC (Bld) 21.5 % [facility] MCH Auto (RBC) [Entitic mass ]on 02-17-2021 MCH (RBC) [Entitic mass] 32.4 pg 24.7-34.3 [facility] MCHC Auto (RBC) [Mass/Vol]on 02-17-2021 MCHC (RBC) [Mass/Vol] 33.6 g/dL 32.0-35.0 [facility] MCV Auto (RBC) [Entitic vol] on 02-17-2021 MCV (RBC) [Entitic vol] 96.3 fL 80-100 [facility] Monocytes Auto (Bld) [#/Vol] on 02-17-2021 Monocytes (Bld) [#/Vol] 0.7 10*3/uL 0.0-0.8 [facility] Monocytes/100 WBC Auto (Bld) on 02-17-2021 Monocytes/100 WBC (Bld) 9.6 % [facility] Neutrophils Auto (Bld) [#/Vo l]on 02-17-2021 Neutrophils (Bld) [#/Vol] 4.8 10*3/uL 1.8-7.7 [facility] Neutrophils/100 WBC Auto (Bl d)on 02-17-2021 Neutrophils/100 WBC (Bld) 65.9 % [facility] Nitrite Test strip Ql (U)on 02-17-2021 Nitrite Ql (U) Negative Negative [facility] No Panel Informationon 02-17 Estimated GFR () > 60 mL/Min [facility] Comment on above: GFR estimated refere nce range: According to KDOQI guidelines, <60 ml/min/1.73m2 is sufficient to diagnose a patient with chronic kidney disease. Pharmacy Creatinine Clearance (Chem N/A [facility] Platelet mean volume Auto (B ld) [Entitic vol]on 02-17-2021 Platelet mean volume (Bld) [Entitic vol] 7.6 fL 6.3-10.7 [facility] Platelets Auto (Bld) [#/Vol] on 02-17-2021 Platelets (Bld) [#/Vol] 206 10*3/uL 150-450 [facility] Protein Auto test strip (U) [Mass/Vol]on 02-17-2021 Protein (U) [Mass/Vol] Negative Negative [facility] RBC Auto (Bld) [#/Vol]on RBC (Bld) [#/Vol] 3.89 10*6/uL 3.60-5.00 [facility] Serum or plasma calcium twan urement (mass/volume)on 02-17-2021 Calcium [Mass/Vol] 7.6 mg/dL 8.2-10.2 [facility] Serum or plasma chloride jewel surement (moles/volume)on 02-17-2021 Chloride [Moles/Vol] 100 mmol/L 95-114 [facility] Serum or plasma glucose twan urement (mass/volume)on 02-17-2021 Glucose [Mass/Vol] 97 mg/dL 70-100 [facility] Comment on above: ADA recommended refe rence rangeRandom Glucose Reference Range is dependent on time and content of last meal. Glucose of more than 200 mg/dL in a nonstressed, ambulatory subject supports the diagnosis of Diabetes Mellitus. Serum or plasma potassium me asurement (moles/volume)on 02-17-2021 Potassium [Moles/Vol] 3.8 mmol/L 3.5-5.1 [facility] Serum or plasma sodium measu rement (moles/volume)on 02-17-2021 Sodium [Moles/Vol] 139 mmol/L 136-146 [facility] Serum or plasma total carbon dioxide measurement (moles/volume)on 02-17-2021 CO2 [Moles/Vol] 28.3 mmol/L 22.0-30.0 [facility] Serum or plasma urea nitroge n measurement (mass/volume)on 02-17-2021 Urea nitrogen [Mass/Vol] 22 mg/dL 9 [facility] Specific gravity Auto test s trip (U) [Rel density]on 02-17-2021 Specific gravity (U) [Rel density] 1.021 1.001-1.030 [facility] Squamous epithelial cells de tection in urine sediment by light microscopyon 02-17-2021 Epithelial cells.squamous LM Ql (Urine sed) 0-1 [HPF] [facility] Urine bacteria detection by automated methodon 02-17-2021 Bacteria Auto Ql (U) 2+ None Seen [facility] Urine clarity by refractomet ry automatedon 02-17-2021 Clarity Refractometry automated (U) Clear Clear [facility] Urine culture routineon 01-29 Bacteria identified Cx Nom (U) Aerococcus urinae [facility] Urine glucose measurement by automated test strip (mass/volume)on 02-17-2021 Glucose Auto test strip (U) [Mass/Vol] Normal mg/dL Normal [facility] Urine hemoglobin detection b y automated test stripon 02-17-2021 Hemoglobin Auto test strip Ql (U) Negative Negative [facility] Urine leukocyte esterase det ection by automated test stripon 02-17-2021 Leukocyte esterase Auto test strip Ql (U) 3+ Negative [facility] Urobilinogen Auto test strip (U) [Mass/Vol]on 02-17-2021 Urobilinogen (U) [Mass/Vol] Normal mg/dL Normal [facility] Yeast detection in urine sed iment by light microscopyon 02-17-2021 Yeast LM Ql (Urine sed) None seen [HPF] None Seen [facility] pH Auto test strip (U)on pH (U) 5.0 [pH] 5.0-9.0 [facility] Cesar 03-12-2020 ALT [Catalytic activity/Vol] 16 U/L Normal 7 - 45 [facility] Comment on above: Result Comment: Josee ents treated with Sulfasalazine may generate falsely decreased results for ALT. Performed By: #### A LT #### [address] [address] Jamari 03-12-2020 AST [Catalytic activity/Vol] 22 U/L Normal 9 - 39 [facility] Comment on above: Performed By: #### A ST #### [address] [address] CREATININEon 03-12-2020 Creatinine [Mass/Vol] mg/dL Normal >60 [facility] Comment on above: Result Comment: CALC ULATIONS OF ESTIMATED GFR ARE PERFORMED USING THE MDRD STUDY EQUATION FOR THE IDMS-TRACEABLE CREATININE METHODS. CLIN CHEM 2007;53:766-72 Performed By: #### C REAT #### [address] [address] Creatinine [Mass/Vol] 0.84 mg/dL Normal 0.50 - 1.05 [facility] Comment on above: Performed By: #### C REAT #### [address] [address] ELECTROLYTE PANELon 03-12-20 20 Anion gap [Moles/Vol] 15 mmol/L Normal 10 - 20 [facility] Comment on above: Performed By: #### E LECT #### [address] [address] Chloride [Moles/Vol] 102 mmol/L Normal 98 - 107 [facility] Comment on above: Performed By: #### E LECT #### [address] [address] HCO3 (Bld) [Moles/Vol] 30 mmol/L Normal 21 - 32 [facility] Comment on above: Performed By: #### E LECT #### [address] [address] Potassium [Moles/Vol] 4.0 mmol/L Normal 3.5 - 5.3 [facility] Comment on above: Performed By: #### E LECT #### [address] [address] Sodium [Moles/Vol] 143 mmol/L Normal 136 - 145 [facility] Comment on above: Performed By: #### E LECT #### [address] [address] LIPID PANEL (CORONARY RISK 2 )on 03-12-2020 Cholesterol [Mass/Vol] 99 mg/dL Normal 0 - 199 [facility] Comment on above: Result Comment: . AGE DESIRABLE BORDERLINE HIGH HIGH 0-19 Y 0 - 169 170 - 199 >/= 200 20-24 Y 0 - 189 190 - 224 >/= 225 >24 Y 0 - 199 200 - 239 >/= 240 All ranges are based on fasting samples. Specific therapeutic targets will vary based on patient-specific cardiac risk. . Pediatric guidelines reference:Pediatrics 2011, 128(S5). Adult guidelines reference: NCEP ATPIII Guidelines, SHERRY 2001, 258:2486-97 . Venipuncture immediately after or during the administration of Metamizole may lead to falsely low results. Testing should be performed immediately prior to Metamizole dosing. Performed By: #### L IPID #### [address] [address] Cholesterol in HDL [Mass/Vol] 60.0 mg/dL Normal [facility] Comment on above: Result Comment: . AGE VERY LOW LOW NORMAL HIGH 0-19 Y < 35 < 40 40-45 ---- 20-24 Y ---- < 40 >45 ---- >24 Y ---- < 40 40-60 >60 . Performed By: #### L IPID #### [address] [address] Cholesterol in LDL [Mass/Vol] 23 mg/dL Normal 0 - 99 [facility] Comment on above: Result Comment: . NEAR BORD AGE DESIRABLE OPTIMAL HIGH HIGH VERY HIGH 0-19 Y 0 - 109 --- 110-129 >/= 130 ---- 20-24 Y 0 - 119 --- 120-159 >/= 160 ---- >24 Y 0 - 99 100-129 130-159 160-189 >/=190 . Performed By: #### L IPID #### [address] [address] Cholesterol in VLDL [Mass/Vol] 16 mg/dL Normal 0 - 40 [facility] Comment on above: Performed By: #### L IPID #### [address] [address] Cholesterol.total/C holesterol in HDL [Mass ratio] 1.7 {ratio} Normal [facility] Comment on above: Result Comment: REF VALUES DESIRABLE < 3.4 HIGH RISK > 5.0 Performed By: #### L IPID #### [address] [address] Triglyceride [Mass/Vol] 79 mg/dL Normal 0 - 149 [facility] Comment on above: Result Comment: . AGE DESIRABLE BORDERLINE HIGH HIGH VERY HIGH 0 D-90 D 19 - 174 ---- ---- ---- 91 D- 9 Y 0 - 74 75 - 99 >/= 100 ---- 10-19 Y 0 - 89 90 - 129 >/= 130 ---- 20-24 Y 0 - 114 115 - 149 >/= 150 ---- >24 Y 0 - 149 150 - 199 200- 499 >/= 500 . Venipuncture immediately after or during the administration of Metamizole may lead to falsely low results. Testing should be performed immediately prior to Metamizole dosing. Performed By: #### L IPID #### [address] [address] PARATHYROID HORMONE,INTACTon 03-12-2020 PARATHYROID HORMONE,INTACT < 6.3 Low 18.5 - 88.0 [facility] Comment on above: Result Comment: Josee ents receiving more than 5 mg/day of biotin may have interference in test results. A sample should be taken no sooner than eight hours after previous dose. Contact the testing laboratory for additional information. Performed By: #### P TH #### [address] [address] RENAL FUNCTION PANELon 03-12 Albumin [Mass/Vol] 4.3 g/dL Normal 3.4 - 5.0 [facility] Comment on above: Performed By: #### T SH2 #### [address] [address] Anion gap [Moles/Vol] 16 mmol/L Normal 10 - 20 [facility] Comment on above: Performed By: #### T SH2 #### [address] [address] Calcium [Mass/Vol] 8.2 mg/dL Low 8.6 - 10.3 [facility] Comment on above: Performed By: #### T SH2 #### [address] [address] Chloride [Moles/Vol] 102 mmol/L Normal 98 - 107 [facility] Comment on above: Performed By: #### T SH2 #### [address] [address] Creatinine [Mass/Vol] 0.82 mg/dL Normal 0.50 - 1.05 [facility] Comment on above: Performed By: #### T SH2 #### [address] [address] GFR- AM. >60 Normal >60 [facility] Comment on above: Result Comment: CALC ULATIONS OF ESTIMATED GFR ARE PERFORMED USING THE MDRD STUDY EQUATION FOR THE IDMS-TRACEABLE CREATININE METHODS. CLIN CHEM 2007;53:766-72 Performed By: #### T SH2 #### [address] [address] GFR-NON AM. >60 Normal >60 [facility] Comment on above: Performed By: #### T SH2 #### [address] [address] Glucose [Mass/Vol] 97 mg/dL Normal 74 - 99 [facility] Comment on above: Performed By: #### T SH2 #### [address] [address] HCO3 (Bld) [Moles/Vol] 29 mmol/L Normal 21 - 32 [facility] Comment on above: Performed By: #### T SH2 #### [address] [address] Phosphate [Mass/Vol] 5.3 mg/dL High 2.5 - 4.9 [facility] Comment on above: Result Comment: The performance characteristics of phosphorus testing in heparinized plasma have been validated by the individual laboratory site where testing is performed. Testing on heparinized plasma is not approved by the FDA; however, such approval is not necessary. Performed By: #### T SH2 #### [address] [address] Potassium [Moles/Vol] 3.7 mmol/L Normal 3.5 - 5.3 [facility] Comment on above: Performed By: #### T SH2 #### [address] [address] Sodium [Moles/Vol] 143 mmol/L Normal 136 - 145 [facility] Comment on above: Performed By: #### T SH2 #### [address] [address] Urea nitrogen [Mass/Vol] 23 mg/dL Normal 6 - 23 [facility] Comment on above: Performed By: #### T SH2 #### [address] [address] UREA NITROGENon 03-12-2020 Urea nitrogen [Mass/Vol] 23 mg/dL Normal 6 - 23 [facility] Comment on above: Performed By: #### U TARAS #### [address] [address] VITAMIN D, 25-HYDROXYon 02-27 VITAMIN D, 25-HYDROXY 43 ng/mL Normal [facility] Comment on above: Result Comment: . DEFICIENCY: < 20 NG/ML INSUFFICIENCY: 20-29 NG/ML SUFFICIENCY: 30-100 NG/ML THIS ASSAY ACCURATELY QUANTIFIES THE SUM OF VITAMIN D3, 25-HYDROXY AND VIT D2,25-HYDROXY. Performed By: #### T SH2 #### [address] [address] THYROXINEon 09-17-2019 T4 [Mass/Vol] 8.0 ug/dL Normal 4.5 - 11.1 [facility] Comment on above: Performed By: #### T 4 #### [address] [address] THYROXINE,FREEon 09-17-2019 THYROXINE,FREE 0.70 ng/dL Normal 0.61 - 1.27 [facility] Comment on above: Result Comment: Thyr oxine Free testing is performed using different testing methodology at [facility] than at other [facility]. Direct result comparisons should only be made within the same method. Patients receiving more than 5 mg/day of biotin may have interference in test results. A sample should be taken no sooner than eight hours after previous dose. Performed By: #### T 4FRE #### [address] [address] TSHon 09-17-2019 TSH Qn 6.25 m[IU]/L High 0.44 - 3.98 [facility] Comment on above: Result Comment: TSH testing is performed using different testing methodology at [facility] than at other [facility]. Direct result comparisons should only be made within the same method. Performed By: #### T SH2 #### [address] [address] Vital Signs Date Time Vital Sign Value Performing Clinician Facility 03-07-2024 11:44-0400 Body height 147.32 cm [facility] 03-07-2024 11:44-0400 Body mass index (BMI) [Ratio] 22.8 kg/m2 [facility] 03-07-2024 11:44-0400 Body temperature 97.6 [degF] [facility] 03-07-2024 11:44-0400 Body weight 49.44 kg [facility] 03-07-2024 11:44-0400 Diastolic blood pressure 60 mm[Hg] [facility] 03-07-2024 11:44-0400 Heart rate 96 /min [facility] 03-07-2024 11:44-0400 Respiratory rate 16 /min [facility] 03-07-2024 11:44-0400 SaO2% (BldA) [Mass fraction] 86 % [facility] 03-07-2024 11:44-0400 Systolic blood pressure 102 mm[Hg] [facility] 07-20-2023 10:40-0400 Body height 147.32 cm Pratik Meza Naderer Work Phone: [facility] 250 DO Work Phone: 07-20-2023 10:40-0400 Body mass index (BMI) [Ratio] 21.11 kg/m2 Pratik A Naderer Work Phone: [facility] 250 DO Work Phone: 07-20-2023 10:40-0400 Body surface area Derived from formula 1.36 m2 Pratik Meza Naderer Work Phone: [facility] 250 DO Work Phone: 07-20-2023 10:40-0400 Body weight 45.81 kg Pratik Meza Naderer Work Phone: [facility] 250 DO Work Phone: 07-20-2023 10:40-0400 Diastolic blood pressure 66 mm[Hg] Pratik Derrick Naderer Work Phone: [facility] 250 DO Work Phone: 07-20-2023 10:40-0400 Heart rate 60 /min Pratik Meza Naderer Work Phone: [facility] DO Work Phone: 07-20-2023 10:40-0400 Systolic blood pressure 100 mm[Hg] Pratik A Naderer Work Phone: [facility] 250 DO Work Phone: 02-08-2023 14:00-0400 Body height 147.32 cm Madhav Conrad Other [email or web address] Other 02-08-2023 14:00-0400 Body mass index (BMI) [Ratio] 22.57 kg/m2 Madhav Conrad Other [facility] [employer] Other 02-08-2023 14:00-0400 Body weight 48.99 kg Madhav Conrad Other [email or web address] Other 02-08-2023 14:00-0400 Diastolic blood pressure 60 mm[Hg] Madhav Conrad Other [facility] [employer] Other 02-08-2023 14:00-0400 Systolic blood pressure 105 mm[Hg] Madhav Conrad Other [facility] [employer] Other 01-12-2023 11:13-0400 Body height 147.32 cm Pratik Meza Naderer Work Phone: [facility] [employer] 250 DO Work Phone: 01-12-2023 11:13-0400 Body mass index (BMI) [Ratio] 21.95 kg/m2 Pratik A Naderer Work Phone: [facility] [employer] 250 DO Work Phone: 01-12-2023 11:13-0400 Body surface area Derived from formula 1.38 m2 Pratik Meza Naderer Work Phone: [facility] [employer] 250 DO Work Phone: 01-12-2023 11:13-0400 Body weight 47.63 kg Pratik A Naderer Work Phone: [facility] [employer] 250 DO Work Phone: 01-12-2023 11:13-0400 Diastolic blood pressure 60 mm[Hg] Pratik A Naderer Work Phone: [facility] [employer] 250 DO Work Phone: 01-12-2023 11:13-0400 Heart rate 88 /min Pratik A Naderer Work Phone: [facility] 250 DO Work Phone: 01-12-2023 11:13-0400 Systolic blood pressure 102 mm[Hg] Pratik A Naderer Work Phone: [facility] 250 DO Work Phone: 08-02-2022 13:32-0400 Diastolic blood pressure 62 mm[Hg] Seema Aichholz Work Phone: [facility] 08-02-2022 13:32-0400 Heart rate 63 /min Seema Aichholz Work Phone: [facility] 08-02-2022 13:32-0400 Respiratory rate 18 /min Seema Aichholz Work Phone: [facility] 08-02-2022 13:32-0400 SaO2% (BldA) [Mass fraction] 100 % Seema Aichholz Work Phone: [facility] [facility] 08-[facility]-2022 13:32-0400 Systolic blood pressure 122 mm[Hg] Seema Aichholz Work Phone: [facility] 08-02-2022 12:26-0400 Body height 147.32 cm Seema Aichholz Work Phone: [facility] 08-02-2022 12:26-0400 Body temperature 98.3 [degF] Seema Aichholz Work Phone: [facility] 08-02-2022 12:26-0400 Body weight 48.53 kg Seema Aichholz Work Phone: [facility] 06-23-2022 15:29-0400 Body height 147.32 cm Pratik A Naderer Work Phone: [facility] DO Work Phone: 06-23-2022 15:29-0400 Body mass index (BMI) [Ratio] 22.62 kg/m2 Pratik Meza Naderer Work Phone: [facility] DO Work Phone: 06-23-2022 15:29-0400 Body surface area Derived from formula 1.4 m2 Pratik Meza Naderer Work Phone: [facility] [facility] DO Work Phone: 06-23-2022 15:29-0400 Body weight 49.1 kg Pratik Meza Naderer Work Phone: [facility] 250 DO Work Phone: 06-23-2022 15:29-0400 Diastolic blood pressure 60 mm[Hg] Pratik Meza Naderer Work Phone: [facility] DO Work Phone: 06-23-2022 15:29-0400 Heart rate 62 /min Pratik Meza Naderer Work Phone: [facility] DO Work Phone: 06-23-2022 15:29-0400 Systolic blood pressure 110 mm[Hg] Pratik Meza Naderer Work Phone: [facility] [facility] DO Work Phone: 05-11-2022 11:17-0400 Blood Pressure Location Med MENA [facility] 05-11-2022 11:17-0400 Diastolic blood pressure 63 mm[Hg] Med MENA [facility] 05-11-2022 11:17-0400 Heart rate 81 /min Med MENA [facility] 05-11-2022 11:17-0400 Respiratory rate 16 /min Med MENA [facility] 05-11-2022 11:17-0400 Systolic blood pressure 125 mm[Hg] Med MENA [facility] 03-24-2022 13:00-0400 Body height 147.32 cm Aba Giovanny Other [employer] Other 03-24-2022 13:00-0400 Body mass index (BMI) [Ratio] 22.28 kg/m2 Aba Giovanny Other [employer] Other 03-24-2022 13:00-0400 Body temperature 97.7 [degF] Aba Giovanny Other [employer] Other 03-24-2022 13:00-0400 Body weight 48.35 kg Aba Giovanny Other [employer] Other 03-24-2022 13:00-0400 Diastolic blood pressure 70 mm[Hg] Aba Giovanny Other [employer] Other 03-24-2022 13:00-0400 Respiratory rate 18 /min Aba Giovanny Other [employer] Other 03-24-2022 13:00-0400 SaO2% (BldA) [Mass fraction] 97 % Aba Giovanny Other [employer] Other 03-24-2022 13:00-0400 Systolic blood pressure 110 mm[Hg] Aba Moon Other [facility] [employer] Other 12-29-2021 11:00-0500 Body height 147.32 cm Pratik A Naderer Work Phone: [facility] [facility] DO Work Phone: 12-29-2021 11:00-0500 Body mass index (BMI) [Ratio] 22.99 kg/m2 Pratik A Naderer Work Phone: [facility] [facility] DO Work Phone: 12-29-2021 11:00-0500 Body surface area Derived from formula 1.41 m2 Pratik A Naderer Work Phone: [facility] [facility] DO Work Phone: 12-29-2021 11:00-0500 Body weight 49.9 kg Pratik A Naderer Work Phone: [facility] DO Work Phone: 12-29-2021 11:00-0500 Diastolic blood pressure 60 mm[Hg] Pratik A Naderer Work Phone: [facility] [facility] DO Work Phone: 12-29-2021 11:00-0500 Heart rate 68 /min Pratik A Naderer Work Phone: [facility] [facility] DO Work Phone: 12-29-2021 11:00-0500 Systolic blood pressure 110 mm[Hg] Pratik A Naderer Work Phone: [facility] [facility] DO Work Phone: 10-18-2021 14:30-0500 Body height 147.32 cm Alyssa Weller Other [employer] Other 10-18-2021 14:30-0500 Body mass index (BMI) [Ratio] 22.99 kg/m2 Alyssa Ginty Other [employer] Other 10-18-2021 14:30-0500 Body temperature 97.9 [degF] Alyssa Ginty Other [employer] Other 10-18-2021 14:30-0500 Body weight 49.9 kg Alyssa Ginty Other [employer] Other 10-18-2021 14:30-0500 Diastolic blood pressure 49 mm[Hg] Alyssa Ginty Other [employer] Other 10-18-2021 14:30-0500 Respiratory rate 18 /min Alyssa Ginty Other [employer] Other 10-18-2021 14:30-0500 SaO2% (BldA) [Mass fraction] 98 % Alyssa Ginty Other [employer] Other 10-18-2021 14:30-0500 Systolic blood pressure 136 mm[Hg] Alyssa Ginty Other [employer] Other 09-07-2021 12:15-0500 Body height 147.32 cm Carie Keith Other [employer] Other 09-07-2021 12:15-0500 Body mass index (BMI) [Ratio] 22.49 kg/m2 Carie Keith Other [employer] Other 09-07-2021 12:15-0500 Body weight 48.81 kg Carie Keith Other [employer] Other 09-02-2021 13:40-0400 Body height 147.32 cm Aba Giovanny Other [employer] Other 09-02-2021 13:40-0400 Body mass index (BMI) [Ratio] 22.53 kg/m2 Aba Giovanny Other [employer] Other 09-02-2021 13:40-0400 Body temperature 96.9 [degF] Aba Giovanny Other [employer] Other 09-02-2021 13:40-0400 Body weight 48.9 kg Aba Giovanny Other [employer] Other 09-02-2021 13:40-0400 Diastolic blood pressure 72 mm[Hg] Aba Giovanny Other [employer] Other 09-02-2021 13:40-0400 Respiratory rate 18 /min Aba Giovanny Other [employer] Other 09-02-2021 13:40-0400 SaO2% (BldA) [Mass fraction] 98 % Aba Giovanny Other [employer] Other 09-02-2021 13:40-0400 Systolic blood pressure 110 mm[Hg] Aba Giovanny Other [employer] Other Encounters Encounter Date Encounter Type Care Provider Facility Start: 10-16-2024 ambulatory Med MENA Facility :[facility] Start: 04-10-2024 End: 04-10-2024 ambulatory Med MENA Facility:[facility] Start: 04-10-2024 End: 04-10-2024 Patient encounter procedure Med MENA [facility] Start: 03-20-2024 End: 03-20-2024 ambulatory BERNARD WAHL Not Available Start: 03-11-2024 End: 03-11-2024 ambulatory SEEMA SUTHERLAND Not Available Start: 03-07-2024 End: 03-07-2024 ambulatory [facility] Work Phone: Start: 03-07-2024 End: 03-07-2024 Patient encounter procedure Counts Include [facility] Physician [facility] Neph[facility] Steve Work Phone: Start: 02-27-2024 Non-patient / Non-visit Counts Include [facility]ician [facility] Work Phone: Start: 02-26-2024 End: 02-26-2024 ambulatory Med MENA Facility:[facility] Start: 02-26-2024 End: 02-26-2024 Patient encounter procedure Med MENA [facility] Start: 11-13-2023 End: 12-19-2023 Pre-admission assessment Med MENA [facility] Start: 11-13-2023 End: 11-13-2023 ambulatory Med MENA Facility:[facility] Start: 11-13-2023 End: 11-13-2023 Patient encounter procedure Med MENA [facility] Start: 10-03-2023 ambulatory Med MENA Facility:[facility] Start: 09-27-2023 End: 09-27-2023 ambulatory Med MENA Facility:[facility] Start: 09-27-2023 End: 09-27-2023 Patient encounter procedure Med MENA [facility] Start: 08-16-2023 End: 08-16-2023 ambulatory Med Hilario TRINA Facility:[facility] Start: 08-16-2023 End: 08-16-2023 Lab Drop off Med MENA [facility] Start: 08-16-2023 End: 08-16-2023 ambulatory Med MENA Facility:[facility] Start: 08-16-2023 End: 08-16-2023 Patient encounter procedure Med Hilario TRINA [facility] Start: 07-20-2023 Office outpatient visit 25 minutes Pratik Derrick Tadeo Work Phone: [facility] DO Work Phone: Start: 07-20-2023 ambulatory Thompson Ferrari Facility :[id number] Start: 07-05-2023 End: 07-05-2023 ambulatory Seema Lencho Sutherland Facility:[facility] Start: 07-05-2023 End: 07-05-2023 ambulatory Seema J Koko Work Phone: [facility] Work Phone: Start: 07-05-2023 End: 07-05-2023 Patient encounter procedure Seemaderrick Sutherland Work Phone: [facility] [address] Work Phone: Start: 05-25-2023 End: 05-25-2023 ambulatory Aba Giovanny Other [facility] [employer] Other Start: 05-25-2023 Telephone encounter Aba Giovanny [facility] Start: 05-11-2023 End: 05-11-2023 ambulatory Med MENA Facility:[facility] Start: 05-11-2023 End: 05-11-2023 Patient encounter procedure Med MENA [facility] Start: 05-08-2023 End: 05-08-2023 ambulatory Aba Giovanny Other [facility] [employer] Other Start: 05-08-2023 Telephone encounter Aba Giovanny [facility] Start: 02-08-2023 End: 02-08-2023 ambulatory Madhav Padillay Other [facility] [employer] Other Start: 02-08-2023 Patient encounter procedure Madhav Conrad [facility] Start: 01-12-2023 ambulatory Donna Damonim Facility : Start: 01-12-2023 Office outpatient visit 25 minutes Pratik Derrick Tadeo Work Phone: [facility] [facility] DO Work Phone: Start: 11-30-2022 End: 11-30-2022 ambulatory Aba Giovanny Other [facility] [employer] Other Start: 11-30-2022 Telephone encounter Aba Giovanny [facility] Start: 11-29-2022 End: 11-30-2022 ambulatory OTILIA SUTHERLAND Facility: Start: 08-03-2022 End: 08-03-2022 ambulatory Madhav Conrad Other [facility] [employer] Other Start: 08-03-2022 Telephone encounter Madhav CAMERON [facility] Start: 08-02-2022 End: 08-02-2022 ambulatory Seema Sutherland Facility:[facility] Start: 08-02-2022 End: 08-02-2022 Admission to same day surgery center Seema Sutherland Work Phone: [facility] Start: 08-02-2022 End: 08-02-2022 ambulatory Seema Sutherland Work Phone: [facility] Work Phone: Start: 07-29-2022 End: 07-29-2022 ambulatory Madhav Padillatim Facility:[facility] Start: 07-29-2022 End: 07-29-2022 Patient encounter procedure Seema Sutherland Work Phone: [facility] Start: 07-13-2022 Rx Renewal Pratik A Naderer Work Phone: [facility] 250 DO Work Phone: Start: 07-11-2022 End: 07-12-2022 ambulatory BILL SORTER SEEMA SUTHERLAND Facility: Start: 06-23-2022 Office outpatient visit 25 minutes Pratik A Naderer Work Phone: [facility] 250 DO Work Phone: Start: 06-22-2022 End: 06-22-2022 Patient encounter procedure Med MENA [facility] Start: 06-15-2022 End: 06-16-[address] DONNA FERRARI Facility: Start: 05-23-2022 End: 05-23-2022 Patient encounter procedure Med MENA [facility] Start: 05-17-2022 End: 05-17-2022 Lab Drop off Med MENA [facility] Start: 05-17-2022 End: 05-17-2022 Patient encounter procedure Med MENA [facility] Start: 05-11-2022 End: 05-11-2022 Patient encounter procedure Med Yanelis MENA [facility] Start: 04-20-2022 End: 04-21-2022 ambulatory OTILIA SUTHERLAND Facility:[facility] Start: 03-24-2022 End: 03-24-2022 ambulatory Aba Giovanny Other [email or web address] Other Start: 03-24-2022 Office outpatient visit 25 minutes Aba Giovanny [facility] Start: 03-23-2022 End: 03-23-2022 ambulatory RODERICK KONG Facility:[facility] Start: 03-23-2022 End: 03-24-2022 ambulatory ABA GIOVANNY Facility:[facility] Start: 03-22-2022 End: 03-23-2022 ambulatory ABA GIOVANNY [facility] [employer] Other Start: 03-22-2022 Telephone encounter Aba Giovanny [facility] Start: 12-29-2021 Office outpatient visit 25 minutes Pratik Tadeo Work Phone: [facility] DO Work Phone: Start: 10-18-2021 End: 10-18-2021 ambulatory Alyssa Ginty Other [email or web address] Other Start: 10-18-2021 Office outpatient visit 15 minutes Alyssa Hollingsworthy [facility] Start: 09-07-2021 End: 09-07-2021 ambulatory Carie Keith Other [employer] Other Start: 09-07-2021 Office outpatient visit 15 minutes Carie Keith [facility] Start: 09-02-2021 End: 09-02-2021 ambulatory Aba Giovanny Other [email or web address] Other Start: 09-02-2021 Office outpatient visit 25 minutes Agustin MORALES [facility] Start: 03-03-2021 End: 03-03-2021 Patient encounter procedure Bean Cantu Work Phone: [facility] Start: 02-17-2021 End: 02-17-2021 Patient encounter procedure Bean Cantu Work Phone: -Pre-Surgical Testing Start: 02-04-2021 End: 02-04-2021 Patient encounter procedure Bean Cantu Work Phone: -[facility] [address] Start: 02-03-2021 End: 02-03-2021 Patient encounter procedure Bean Cantu Work Phone: [facility] Start: 01-29-2018 Ambulatory [facility] Facility :[id number] Procedures Date Procedure Procedure Detail Performing Clinician Start: 07-05-2023 Plain X-ray of bilateral calcanei Seema A sindy Work Phone: Start: 07-05-2023 X-ray of both feet Seema Koko Work Phone: Start: 08-02-2022 Esophagogastroduodenoscopy Seema Chelyz Work Phone: Start: 04-05-2021 Arthroplasty of knee Med MENA Comment on above: LEFT Start: 03-03-2021 Plain X-ray of left femur Bean Cantu Work Phone: Start: 02-17-2021 Urine culture Bean Cantu Work Phone: Start: 02-04-2021 Plain X-ray of left hand Bean Cantu Work Phone: Start: 02-04-2021 X-ray of left foot Bean Cantu Work Phone: Start: 02-03-2021 X-ray of left knee Bean Cantu Work Phone: Angioplasty of blood vessel Pratik A Naderer Work Phone: Appendectomy Pratik Meza Naderer Work Phone: Appendectomy Med MENA Arthroplasty of knee Pratik Meza Naderer Work Phone: Arthroplasty of knee Med MENA Comment on above: Right Bilateral tubal ligation Rodrick MENA Cholecystectomy Pratik Bartoner er Work Phone: Colonoscopy Med MENA Colostomy Pratik Mzea Naderer Work Phone: Extraction of cataract Waldemar MENA Comment on above: B/L H/O: artificial joint Status pos t knee replacement Seema Koko Work Phone: History of operative procedure on knee Bean Cantu Work Phone: History of operative procedure on knee Aba Giovanny Other Hysterectomy Pratik Meza Naderer Work Phone: Hysterectomy Med MENA Ligation of fallopian tube M arc Derrick Naderer Work Phone: Operation on bladder Pratik Meza Naderer Work Phone: Total colonoscopy Pratik Meza Nad erer Work Phone: Plan of Treatment Date Care Activity Detail Author Start: 07-20-2023 FUV, Provider: Donna Ferrari, Status: Pen, Time: 10:20 AM FUV, Provider: Donna Ferrari, Status: Pen, Time: 10:20 AM [facility] [employer] 250 DO Work Phone: Start: 01-12-2023 FUV, Provider: Donna Ferrari, Status: Pen, Time: 10:50 AM FUV, Provider: Donna Ferrari, Status: Pen, Time: 10:50 AM [facility] [employer] 250 DO Work Phone: Start: 08-02-2022 [facility] Start: 07-12-2022 FUV, Provider: Donna Ferrari, Status: Pen, Time: 10:50 AM FUV, Provider: Donna Ferrari, Status: Pen, Time: 10:50 AM [facility] 250 DO Work Phone: Start: 02-17-2021 Bacteria identified in Urine by Culture Urine Culture [facility] Patient Education Gastritis (DC) Omeprazole [facility] Work Phone: Renal function 2000 panel - Serum or Plasma [facility] Immunizations Immunization Date Immunization Notes Care Provider Fa bill 06-30-2023 influenza virus vacc ine, unspecified formulation [employer] [facility] 09-17-2021 Pfizer-BioNTech COVI D-19 Vacc 30 MCG/0.3ML Intramuscular Suspension Pratik A Naderer Work Phone: [facility] 09-08-2021 influenza virus vacc ine, unspecified formulation E[employer]on [facility] 09-08-2021 Influenza, injectabl e, Madin [place] Canine Kidney, preservative free, quadrivalent Pratik A Naderer Work Phone: [facility] 250 DO Work Phone: 01-05-2021 Moderna COVID-19 Vac cine 100 MCG/0.5ML Intramuscular Suspension Pratik A Naderer Work Phone: [facility] 12-07-2020 Moderna COVID-19 Vac cine 100 MCG/0.5ML Intramuscular Suspension Pratik A Naderer Work Phone: [facility] 08-11-2020 influenza virus vacc ine, unspecified formulation E[employer]on [facility] 08-11-2020 influenza, injectabl e, quadrivalent, preservative free Pratik A Naderer Work Phone: [facility] [employer] DO Work Phone: 08-11-2020 pneumococcal polysaccharide vaccine, 23 valent Pratik A Naderer Work Phone: [facility] 06-30-2020 influenza virus vacc ine, unspecified formulation Pratik A Naderer Work Phone: [facility] 07-30-2019 influenza virus vacc ine, unspecified formulation Pratik A Naderer Work Phone: [place] [address] DO Work Phone: 07-16-2019 influenza virus vacc ine, unspecified formulation [facility] 07-16-2019 influenza, injectabl e, quadrivalent, preservative free Pratik A Naderer Work Phone: [place] [address] DO Work Phone: 08-09-2018 influenza virus vacc ine, unspecified formulation [facility] 08-09-2018 influenza, high dose seasonal, preservative-free Pratik A Naderer Work Phone: [place] [address] DO Work Phone: 07-30-2018 influenza virus vacc ine, unspecified formulation Pratik A Naderer Work Phone: [facility] [employer] DO Work Phone: 08-11-2017 influenza virus vacc ine, unspecified formulation Med MENA [facility] 08-11-2017 influenza, high dose seasonal, preservative-free Pratik A Naderer Work Phone: [place] [address] DO Work Phone: 07-30-2017 influenza virus vacc ine, unspecified formulation Pratik A Naderer Work Phone: [place] [address] DO Work Phone: 08-02-2016 influenza virus vacc ine, unspecified formulation eMd MENA [facility] 08-02-2016 influenza, high dose seasonal, preservative-free Pratik A Naderer Work Phone: [place] [address] DO Work Phone: 06-30-2016 influenza virus vacc ine, unspecified formulation Pratik A Naderer Work Phone: [place] [address] DO Work Phone: 01-08-2016 pneumococcal conjuga te vaccine, 13 valent Pratik A Naderer Work Phone: [facility] 07-21-2015 influenza virus vacc ine, unspecified formulation Pratik A Naderer Work Phone: [place] [address] DO Work Phone: 07-21-2015 pneumococcal polysaccharide vaccine, 23 valent Pratik A Naderer Work Phone: [place] [address] DO Work Phone: 07-17-2015 influenza virus vacc ine, unspecified formulation Med MENA [facility] 07-17-2014 influenza virus vacc ine, unspecified formulation Med MENA [facility] 07-17-2014 influenza, high dose seasonal, preservative-free Pratik A Naderer Work Phone: [place] [address] DO Work Phone: 08-07-2012 influenza virus vacc ine, unspecified formulation Med MENA [facility] 08-07-2012 influenza, seasonal, injectable, preservative free Pratik A Naderer Work Phone: [place] [address] DO Work Phone: 06-04-2012 tetanus toxoid, redu ruby diphtheria toxoid, and acellular pertussis vaccine, adsorbed Pratik A Naderer Work Phone: [facility] 09-16-2010 influenza virus vacc ine, unspecified formulation Med MENA [facility] 09-16-2010 influenza, seasonal, injectable Pratik A Naderer Work Phone: [place] [address] DO Work Phone: Payers Date Payer Category Payer Private Health Insurance CLI [id number] 2022 Self-pay [id number] 1959 Medicare [id number] 1959 Unknown [id number] 1940 Unknown [id number] 2.16.84 [id number] 1940 Unknown [id number] 2.16.84 0.1.659322.3.579.2.593 1940 Unknown [id number] 2.16.84 0.1.012427.3.579.2.593 1940 Unknown [id number] 2.16.84 0.1.070663.3.579.2.593 194 Unknown [id number] 2.16.84 0.1.374692.3.579.2.593 194 Unknown [id number] 2.16.84 0.1.256022.3.579.2.593 194 Unknown [id number] 2.16.84 0.1.551670.3.579.2.593 1940 Unknown [id number] 2.16. 840.1.678954.3.579.2.356 1940 Unknown [id number] 2.16. 840.1.206308.3.579.2.356 1940 Unknown [id number] 2.16.84 0.1.893461.3.579.2.1259 1940 Unknown [id number] 2.16.84 0.1.629837.3.579.2.1259 1940 Unknown [id number] 2.16.8 40.1.327378.3.579.2.727 1940 Unknown [id number] 2.16.8 40.1.373545.3.579.2.727 1940 Unknown [id number] 2.16.8 40.1.405747.3.579.2.727 1940 Unknown [id number] 2.16.8 40.1.926239.3.579.2.727 194 Unknown [id number] 2.16.8 40.1.212330.3.579.2.727 194 Unknown [id number] 2.16.8 40.1.067655.3.579.2.727 1940 Unknown [id number] 2.16.8 40.1.923397.3.579.2.727 1940 Unknown [id number] 2.16.8 40.1.283217.3.579.2.727 Medicare [id number] Unknown [id number] Unknown Unknown [id number] 2.16.8 40.1.199112.3.579.2.531 Unknown [id number] 2.16.8 40.1.173128.3.579.2.531 Unknown [id number] 2.16.8 40.1.429735.3.579.2.531 Social History Date Type Detail Facility Start: 02-17-2021 End: 04-10-2024 Tobacco smoking status NHIS Never smoked tobacco (finding) [facility] Start: 1940 Sex Assigned At Female F [facility] No alcohol use No alcohol use [facility] 250 DO Work Phone: Sex Assigned At [facility] [employer] Other Tobacco smoking status Never [facility] Medical Equipment Procedure Code Equipment Code Equipment Origin al Text Equipment Identifier Dates Arthroplasty, knee, total, minimally invasive FDA Start: 02-23-2018 Arthroplasty, knee, total, minimally invasive ARTICULAR SURFACE RIGHT FDA Start: 02-23-2018 Arthroplasty, knee, total, minimally invasive ARTICULAR SURFACE RIGHT FDA Start: 02-23-2018 Arthroplasty, knee, total, minimally invasive ARTICULAR SURFACE RIGHT FDA Start: 02-23-2018 Arthroplasty, knee, total, minimally invasive ARTICULAR SURFACE RIGHT FDA Start: 02-23-2018 Arthroplasty, knee, total, minimally invasive ARTICULAR SURFACE RIGHT FDA Start: 02-23-2018 Arthroplasty, knee, total, minimally invasive ARTICULAR SURFACE RIGHT FDA Start: 02-23-2018 Arthroplasty, knee, total, minimally invasive ARTICULAR SURFACE RIGHT FDA Start: 02-23-2018 Arthroplasty, knee, total, minimally invasive ARTICULAR SURFACE RIGHT FDA Start: 02-23-2018 Arthroplasty, knee, total, minimally invasive ARTICULAR SURFACE RIGHT FDA Start: 02-23-2018 Arthroplasty, knee, total, minimally invasive ARTICULAR SURFACE RIGHT FDA Start: 02-23-2018 Arthroplasty, knee, total, minimally invasive ARTICULAR SURFACE RIGHT FDA Start: 02-23-2018 Arthroplasty, knee, total, minimally invasive ARTICULAR SURFACE RIGHT FDA Start: 02-23-2018 Arthroplasty, knee, total, minimally invasive ARTICULAR SURFACE RIGHT FDA Start: 02-23-2018 Arthroplasty, knee, total, minimally invasive ARTICULAR SURFACE RIGHT FDA Start: 02-23-2018 Arthroplasty, knee, total, minimally invasive CEMENT PALACOS R [id number] SINGLE FDA Start: 02-23-2018 Arthroplasty, knee, total, minimally invasive CEMENT PALACOS R [id number] SINGLE FDA Start: 02-23-2018 Arthroplasty, knee, total, minimally invasive FEMUR PERSONA RIGHT SIZE 4 FDA Start: 02-23-2018 Arthroplasty, knee, total, minimally invasive KNEE TOTAL LEVEL 1A PERSONA FDA Start: 02-23-2018 Arthroplasty, knee, total, minimally invasive PATELLA PERSONA 29MM FDA Start: 02-23-2018 Arthroplasty, knee, total, minimally invasive TIBIA PERSONA RIGHT SIZE C FDA Start: 02-23-2018 Arthroplasty, knee, total, minimally invasive Orthopaedic cement, non-medicated ()[id number] FDA Start: 03-09-2021 Arthroplasty, knee, total, minimally invasive Uncoated knee femur prosthesis, metallic ()[id number] FDA Start: 03-09-2021 Arthroplasty, knee, total, minimally invasive Polyethylene patella prosthesis ()[id number] FDA Start: 03-09-2021 Arthroplasty, knee, total, minimally invasive Tibial insert [id number] FDA Start: 03-09-2021 Arthroplasty, knee, total, minimally invasive Uncoated knee tibia prosthesis, metallic ()[id number] FDA Start: 03-09-2021 Arthroplasty, knee, total, minimally invasive ARTICULAR SURFACE RIGHT FDA Start: 02-23-2018 Arthroplasty, knee, total, minimally invasive CEMENT PALACOS R 1X40 SINGLE FDA Start: 02-23-2018 Arthroplasty, knee, total, minimally invasive CEMENT PALACOS R 1X40 SINGLE FDA Start: 02-23-2018 Arthroplasty, knee, total, minimally invasive FEMUR PERSONA RIGHT SIZE 4 FDA Start: 02-23-2018 Arthroplasty, knee, total, minimally invasive KNEE TOTAL LEVEL 1A PERSONA FDA Start: 02-23-2018 Arthroplasty, knee, total, minimally invasive PATELLA PERSONA 29MM FDA Start: 02-23-2018 Arthroplasty, knee, total, minimally invasive TIBIA PERSONA RIGHT SIZE C FDA Start: 02-23-2018 Arthroplasty, knee, total, minimally invasive ARTICULAR SURFACE RIGHT FDA Start: 02-23-2018 Arthroplasty, knee, total, minimally invasive CEMENT PALACOS R 1X40 SINGLE FDA Start: 02-23-2018 Arthroplasty, knee, total, minimally invasive CEMENT PALACOS R 1X40 SINGLE FDA Start: 02-23-2018 Arthroplasty, knee, total, minimally invasive FEMUR PERSONA RIGHT SIZE 4 FDA Start: 02-23-2018 Arthroplasty, knee, total, minimally invasive KNEE TOTAL LEVEL 1A PERSONA FDA Start: 02-23-2018 Arthroplasty, knee, total, minimally invasive PATELLA PERSONA 29MM FDA Start: 02-23-2018 Arthroplasty, knee, total, minimally invasive TIBIA PERSONA RIGHT SIZE C FDA Start: 02-23-2018 Goals Date Patient Goal Desired Activity /State Functional Status Date Assessment Result Facility 04-10-2024 Functional Status N/A [facility] 02-26-2024 Functional Status N/A [facility] 09-27-2023 Functional Status N/A [facility] 08-16-2023 Functional Status N/A [facility] 05-11-2023 Functional Status N/A [facility] 06-22-2022 Functional Status N/A [facility] 05-19-2022 Functional Status N/A [facility] 05-11-2022 Functional Status N/A [facility] Clinical Notes 09-02-2021 to 04-10-2024 Note Date & Type Note Facility 04-10-2024 Hospital Discharg e instructions Patient Education 04/10/2024 10:23:18 Urinary Incontinence Urinary Incontinence Urinary incontinence refers to a condition in which a person is unable to control where and when to pass urine. A person with this condition will urinate involuntarily. This means that the person urinates when he or she does not mean to. What are the causes? This condition may be caused by: Medicines. Infections. Constipation. Overactive bladder muscles. Weak bladder muscles. Weak pelvic floor muscles. These muscles provide support for the bladder, intestine, and, in women, the uterus. Enlarged prostate in men. The prostate is a gland near the bladder. When it gets too big, it can pinch the urethra. With the urethra blocked, the bladder can weaken and lose the ability to empty properly. Surgery. Emotional factors, such as anxiety, stress, or post-traumatic stress disorder (PTSD). Spinal cord injury, nerve injury, or other neurological conditions. Pelvic organ prolapse. This happens in women when organs move out of place and into the vagina. This movement can prevent the bladder and urethra from working properly. What increases the risk? The following factors may make you more likely to develop this condition: Age. The older you are, the higher the risk. Obesity. Being physically inactive. and childbirth. Menopause. Diseases that affect the nerves or spinal cord. Long-term, or chronic, coughing. This can increase pressure on the bladder and pelvic floor muscles. What are the signs or symptoms? Symptoms may vary depending on the type of urinary incontinence you have. They include: A sudden urge to urinate, and passing urine involuntarily before you can get to a bathroom (urge incontinence). Suddenly passing urine when doing activities that force urine to pass, such as coughing, laughing, exercising, or sneezing (stress incontinence). Needing to urinate often but urinating only a small amount, or constantly dribbling urine (overflow incontinence). Urinating because you cannot get to the bathroom in time due to a physical disability, such as arthritis or injury, or due to a communication or thinking problem, such as Alzheimer's disease (functional incontinence). How is this diagnosed? This condition may be diagnosed based on: Your medical history. A physical exam. Tests, such as: ?Urine tests. ?X-rays of your kidney and bladder. ?Ultrasound. ?CT scan. ?Cystoscopy. In this procedure, a health care provider inserts a tube with a light and camera (cystoscope) through the urethra and into the bladder to check for problems. ?Urodynamic testing. These tests assess how well the bladder, urethra, and sphincter can store and release urine. There are different types of urodynamic tests, and they vary depending on what the test is measuring. To help diagnose your condition, your health care provider may recommend that you keep a log of when you urinate and how much you urinate. How is this treated? Treatment for this condition depends on the type of incontinence that you have and its cause. Treatment may include: Lifestyle changes, such as: ?Quitting smoking. ?Maintaining a healthy weight. ?Staying active. Try to get 150 minutes of moderate-intensity exercise every week. Ask your health care provider which activities are safe for you. ?Eating a healthy diet. ?Avoid high-fat foods, like fried foods. ?Avoid refined carbohydrates like white bread and white rice. ?Limit how much alcohol and caffeine you drink. ?Increase your fiber intake. Healthy sources of fiber include beans, whole grains, and fresh fruits and vegetables. Behavioral changes, such as: ?Pelvic floor muscle exercises. ?Bladder training, such as lengthening the amount of time between bathroom breaks, or using the bathroom at regular intervals. ?Using techniques to suppress bladder urges. This can include distraction techniques or controlled breathing exercises. Medicines, such as: ?Medicines to relax the bladder muscles and prevent bladder spasms. ?Medicines to help slow or prevent the growth of a man's prostate. ?Botox injections. These can help relax the bladder muscles. Treatments, such as: ?Using pulses of electricity to help change bladder reflexes (electrical nerve stimulation). ?For women, using a manager medical device to prevent urine leaks. This is a small, tampon-like, disposable device that is inserted into the urethra. ?Injecting collagen or carbon beads (bulking agents) into the urinary sphincter. These can help thicken tissue and close the bladder opening. ?Surgery. Follow these instructions at home: Lifestyle Limit alcohol and caffeine. These can fill your bladder quickly and irritate it. Keep yourself clean to help prevent odors and skin damage. Ask your health care provider about special skin creams and cleansers that can protect the skin from urine. Consider wearing pads or adult diapers. Make sure to change them regularly, and always change them right after experiencing incontinence. General instructions Take ocab-agt-pnbuicm and prescription medicines only as told by your health care provider. Use the bathroom about every 3 4 hours, even if you do not feel the need to urinate. Try to empty your bladder completely every time. After urinating, wait a minute. Then try to urinate again. Make sure you are in a relaxed position while urinating. If your incontinence is caused by nerve problems, keep a log of the medicines you take and the times you go to the bathroom. Keep all follow-up visits. This is important. Where to find more information National [place] of Diabetes and Digestive and Kidney Diseases: www.niddk.nih.gov [place] Urology Association: www.urologyhealth.org Contact a health care provider if: You have pain that gets worse. Your incontinence gets worse. Get help right away if: You have a fever or chills. You are unable to urinate. You have redness in your groin area or down your legs. Summary Urinary incontinence refers to a condition in which a person is unable to control where and when to pass urine. This condition may be caused by medicines, infection, weak bladder muscles, weak pelvic floor muscles, enlargement of the prostate (in men), or surgery. Factors such as older age, obesity, and childbirth, menopause, neurological diseases, and chronic coughing may increase your risk for developing this condition. Types of urinary incontinence include urge incontinence, stress incontinence, overflow incontinence, and functional incontinence. This condition is usually treated first with lifestyle and behavioral changes, such as quitting smoking, eating a healthier diet, and doing regular pelvic floor exercises. Other treatment options include medicines, bulking agents, medical devices, electrical nerve stimulation, or surgery. This information is not intended to replace advice given to you by your health care provider. Make sure you discuss any questions you have with your health care provider. Document Revised: 05/21/2021 Document Reviewed: 05/21/2021 [employer] Patient Education 2022 SDI. Follow Up Care 02/26/2024 13:52:27 With:TRINA WATSON, Med Hilario, URL Address: [facility] [employer] [place] [id number]- When: Unknown [facility] 02-26-2024 Hospital Discharg e instructions Patient Education 02/26/2024 13:31:50 EU - Cystoscopy with Botox Injection Discharge Instructions (Custom) Cystoscopy with Botox injection Voiding after the procedure: there may be some pain, burning, urgency, frequency and blood tinged urine following the procedure. These symptoms usually resolve within 2-5 days. Drink the amount of fluid it takes to keep the urine pink to yellow or clear in color. Drinking enough water and fluids will help to ease any discomfort after your procedure. It may take a few days to a week to notice a gradual improvement in the overactive bladder symptoms. If you are having problems that seem out of the ordinary, please call. If unable to contact your physician and you feel it is an emergency, go to the nearest emergency room or call 911 Do not lift more than fifteen pounds for 1-2 days. If you see a lot of blood, you probably did too much. Diet you may resume your normal diet. Pain control You may take extra strength Tylenol or Motrin for discomfort. Call if you have a fever over 100 degrees. Follow Up Care 11/13/2023 15:16:14 With:Med MENA Address: [address] [place] [address] [facility] (1) When:6 weeks Comments:Call for followup appointment, with a bladder scan at that visit to check for bladder emptying. [facility] 02-26-2024 Note [id number] [facility] 02-26-2024 Note Cystoscopy with Boto x injection ? Voiding after the procedure: there may be some pain, burning, urgency, frequency and blood tinged urine following the procedure. These symptoms usually resolve within 2-5 days. Drink the amount of fluid it takes to keep the urine pink to yellow or clear in color. Drinking enough water and fluids will help to ease any discomfort after your procedure. ? It may take a few days to a week to notice a gradual improvement in the overactive bladder symptoms. ? If you are having problems that seem out of the ordinary, please call. ? If unable to contact your physician and you feel it is an emergency, go to the nearest emergency room or call 911 ? Do not lift more than fifteen pounds for 1-2 days. If you see a lot of blood, you probably did too much. ? Diet ? you may resume your normal diet. ? Pain control ? You may take extra strength Tylenol or Motrin for discomfort. ? Call if you have a fever over [address] [facility] 11-13-2023 Evaluation + Plan note Extrac db from: Title:HOPD visit Author:Med MENA MD Date: 11/13/23 Impression and Plan Assessment and Plan: Diagnosis: Acute UTI (ITZ39-CL N39.0, Working, Medical), Mixed incontinence urge and stress (QWD23-XG N39.46, Working, Medical), Overactive bladder (IYQ27-CS N32.81, Working, Medical). Additional Plan of Care and/or Course of Treatment: Additional Plan of Care and/or Course of Treatment: Discussed extensively with the patient and her . Due to the presence of what appears to be an active urinary tract infection, have to cancel the Botox instillation today and reschedule this. Urine culture will be obtained today. Antibiotic sent to pharmacy. 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 She should go to the ER if this is severe. She had previously tried methenamine but was unable to take this secondary to side effects. I again stressed to patient and her that nonmedicinal therapies such as probiotics, d-mannose, and cranberry can also be tried to prevent UTIs. She also needs to drink plenty to keep the urine dilute. . Future Appointments Appointment Date:12/18/2023 03:15:00 PM Scheduled Provider: Location:[facility] Appointment Type:Urology FT Diagnostic Tests Pending * Urine Culture 11/13/23 [facility]11-29-2023 Hospital Discharge instructions Follow Up Care 09/27/2023 13:27:49 With:Med MENA Address: [address] [facility] [address] [place], [place] [id number]- Business (1) When: Unknown Comments:As you know we were unable to do the Botox injection into the bladder today. It appears you have anactive urinary tract infection. A urine culture will be obtained and I will put you on antibiotics and send this to the pharmacy. We will have to reschedule the Botox.I know that we had tried phenterm ine in the past but you are unable to tolerate it.Other none medicine options to try to decrease the frequency of urinary tract infections include cranberry (either juice or extract), probiotics, andd-mannose.You may have to research how to get the mannose and I have many patients who get this online and have it delivered to their home. You can get the probiotics locally and the cranberry is self-explanatory.My sales branch manager will call you to get you back on the books for the Botox injection. [facility]2023 Hospital Discharge instructions Patient Education 09/27/2023 13:13:52 Urinary Incontinence Urinary Incontinence Urinary incontinence refers to a condition in which a person is unable to control where and when topass urine. A person with this condition will urinate involuntarily. This means that the person urinates when he or she does not mean to. What are the causes? This condition may be caused by: Medicines. Infections. Constipation. Overactive bladder muscles. Weak bladder muscles. Weak pelvic floor muscles. These muscles provide support for the bladder, intestine, and, in women,the uterus. Enlarged prostate in men. The prostate is a gland near the bladder. When it gets too big, it can pinch the urethra. With the urethra blocked, the bladder can weaken and lose the ability to empty properly. Surgery. Emotional factors, such as anxiety, stress, or post-traumatic stress disorder (PTSD). Spinal cord injury, nerve injury, or other neurological conditions. Pelvic organ prolapse. This happens in women when organs move out of place and into the vagina. This movement can prevent the bladder and urethra from working properly. What increases the risk? The following factors may make you more likely to develop this condition: Age. The older you are, the higher the risk. Obesity. Being physically inactive. and childbirth. Menopause. Diseases that affect the nerves or spinal cord. Long-term, or chronic, coughing. This can increase pressure on the bladder and pelvic floor muscles. What are the signs or symptoms? Symptoms may vary depending on the type of urinary incontinence you have. They include: A sudden urge to urinate, and passing urine involuntarily before you can get to a bathroom (urge incontinence). Suddenly passing urine when doing activities that force urine to pass, such as coughing, laughing, exercising, or sneezing (stress incontinence). Needing to urinate often but urinating only a small amount, or constantly dribbling urine (overflowincontinence). Urinating because you cannot get to the bathroom in time due to a physical disability, such as arthritis or injury, or due to a communication or thinking problem, such as Alzheimer's disease (functional incontinence). How is this diagnosed? This condition may be diagnosed based on: Your medical history. A physical exam. Tests, such as: ?Urine tests. ?X-rays of your kidney and bladder. ?Ultrasound. ?CT scan. ?Cystoscopy. In this procedure, a health care provider inserts a tube with a light and camera (cystoscope) through the urethra and into the bladder to check for problems. ?Urodynamic testing. These tests assess how well the bladder, urethra, and sphincter can store and release urine. There are different types of urodynamic tests, and they vary depending on what the test is measuring. To help diagnose your condition, your health care provider may recommend that you keep a log of when you urinate and how much you urinate. How is this treated? Treatment for this condition depends on the type of incontinence that you have and its cause. Treatment may include: Lifestyle changes, such as: ?Quitting smoking. ?Maintaining a healthy weight. ?Staying active. Try to get 150 minutes of moderate-intensity exercise every week. Ask your health care provider which activities are safe for you. ?Eating a healthy diet. ?Avoid high-fat foods, like fried foods. ?Avoid refined carbohydrates like white bread and white rice. ?Limit how much alcohol and caffeine you drink. ?Increase your fiber intake. Healthy sources of fiber include beans, whole grains, and fresh fruitsand vegetables. Behavioral changes, such as: ?Pelvic floor muscle exercises. ?Bladder training, such as lengthening the amount of time between bathroom breaks, or using the bathroom at regular intervals. ?Using techniques to suppress bladder urges. This can include distraction techniques or controlled breathing exercises. Medicines, such as: ?Medicines to relax the bladder muscles and prevent bladder spasms. ?Medicines to help slow or prevent the growth of a man's prostate. ?Botox injections. These can help relax the bladder muscles. Treatments, such as: ?Using pulses of electricity to help change bladder reflexes (electrical nerve stimulation). ?For women, using a manager medical device to prevent urine leaks. This is a small, tampon-like, disposabledevice that is inserted into the urethra. ?Injecting collagen or carbon beads (bulking agents) into the urinary sphincter. These can help thicken tissue and close the bladder opening. ?Surgery. Follow these instructions at home: Lifestyle Limit alcohol and caffeine. These can fill your bladder quickly and irritate it. Keep yourself clean to help prevent odors and skin damage. Ask your health care provider about special skin creams and cleansers that can protect the skin from urine. Consider wearing pads or adult diapers. Make sure to change them regularly, and always change them right after experiencing incontinence. General instructions Take fghs-dmn-gaekzsq and prescription medicines only as told by your health care provider. Use the bathroom about every 3 4 hours, even if you do not feel the need to urinate. Try to empty your bladder completely every time. After urinating, wait a minute. Then try to urinate again. Make sure you are in a relaxed position while urinating. If your incontinence is caused by nerve problems, keep a log of the medicines you take and the times you go to the bathroom. Keep all follow-up visits. This is important. Where to find more information National [place] of Diabetes and Digestive and Kidney Diseases: www.niddk.nih.gov [place] Urology Association: www.urologyhealth.org Contact a health care provider if: You have pain that gets worse. Your incontinence gets worse. Get help right away if: You have a fever or chills. You are unable to urinate. You have redness in your groin area or down your legs. Summary Urinary incontinence refers to a condition in which a person is unable to control where and when topass urine. This condition may be caused by medicines, infection, weak bladder muscles, weak pelvic floor muscles, enlargement of the prostate (in men), or surgery. Factors such as older age, obesity, and childbirth, menopause, neurological diseases, andchronic coughing may increase your risk for developing this condition. Types of urinary incontinence include urge incontinence, stress incontinence, overflow incontinence, and functional incontinence. This condition is usually treated first with lifestyle and behavioral changes, such as quitting smoking, eating a healthier diet, and doing regular pelvic floor exercises. Other treatment options include medicines, bulking agents, medical devices, electrical nerve stimulation, or surgery. This information is not intended to replace advice given to you by your health care provider. Make sure you discuss any questions you have with your health care provider. Document Revised: 05/21/2021 Document Reviewed: 05/21/2021 [employer] Patient Education 2022 SDI. Follow Up Care 08/16/2023 10:31:24 With:TRINA WATSON, ARELI Ramirez Address: [facility] [address] [place] [id number]- When: Unknown [facility] 10-18-2023 Hospital Discharge instructions Patient Education 08/16/2023 10:27:37 Urinary Tract Infection, Adult Urinary Tract Infection, Adult A urinary tract infection (UTI) is an infection of any part of the urinary tract. The urinary tractincludes the kidneys, ureters, bladder, and urethra. These organs make, store, and get rid of urinein the body. An upper UTI affects the ureters and kidneys. A lower UTI affects the bladder and urethra. What are the causes? Most urinary tract infections are caused by bacteria in your genital area around your urethra, where urine leaves your body. These bacteria grow and cause inflammation of your urinary tract. What increases the risk? You are more likely to develop this condition if: You have a urinary catheter that stays in place. You are not able to control when you urinate or have a bowel movement (incontinence). You are female and you: ?Use a spermicide or diaphragm for control. ?Have low estrogen levels. ?Are . You have certain genes that increase your risk. You are sexually active. You take antibiotic medicines. You have a condition that causes your flow of urine to slow down, such as: ?An enlarged prostate, if you are male. ?Blockage in your urethra. ?A kidney stone. ?A nerve condition that affects your bladder control (neurogenic bladder). ?Not getting enough to drink, or not urinating often. You have certain medical conditions, such as: ?Diabetes. ?A weak disease-fighting system (immunesystem). ?Sickle cell disease. ?Gout. ?Spinal cord injury. What are the signs or symptoms? Symptoms of this condition include: Needing to urinate right away (urgency). Frequent urination. This may include small amounts of urine each time you urinate. Pain or burning with urination. Blood in the urine. Urine that smells bad or unusual. Trouble urinating. Cloudy urine. Vaginal discharge, if you are female. Pain in the abdomen or the lower back. You may also have: Vomiting or a decreased appetite. Confusion. Irritability or tiredness. A fever or chills. Diarrhea. The first symptom in older adults may be confusion. In some cases, they may not have any symptoms until the infection has worsened. How is this diagnosed? This condition is diagnosed based on your medical history and a physical exam. You may also have other tests, including: Urine tests. Blood tests. Tests for STIs (sexually transmitted infections). If you have had more than one UTI, a cystoscopy or imaging studies may be done to determine the cause of the infections. How is this treated? Treatment for this condition includes: Antibiotic medicine. Onho-imh-ogmvkoc medicines to treat discomfort. Drinking enough water to stay hydrated. If you have frequent infections or have other conditions such as a kidney stone, you may need to see a health care provider who specializes in the urinary tract (urologist). In rare cases, urinary tract infections can cause sepsis. Sepsis is a life- threatening condition that occurs when the body responds to an infection. Sepsis is treated in the hospital with IV antibiotics, fluids, and other medicines. Follow these instructions at home: Medicines Take zbbc-dfk-udtinrl and prescription medicines only as told by your health care provider. If you were prescribed an antibiotic medicine, take it as told by your health care provider. Do notstop using the antibiotic even if you start to feel better. General instructions Make sure you: ?Empty your bladder often and completely. Do not hold urine for long periods of time. ?Empty your bladder after sex. ?Wipe from front to back after urinating or having a bowel movement if you are female. Use each tissue only one time when you wipe. Drink enough fluid to keep your urine pale yellow. Keep all follow-up visits. This is important. Contact a health care provider if: Your symptoms do not get better after 1 2 days. Your symptoms go away and then return. Get help right away if: You have severe pain in your back or your lower abdomen. You have a fever or chills. You have nausea or vomiting. Summary A urinary tract infection (UTI) is an infection of any part of the urinary tract, which includes the kidneys, ureters, bladder, and urethra. Most urinary tract infections are caused by bacteria in your genital area. Treatment for this condition often includes antibiotic medicines. If you were prescribed an antibiotic medicine, take it as told by your health care provider. Do notstop using the antibiotic even if you start to feel better. Keep all follow-up visits. This is important. This information is not intended to replace advice given to you by your health care provider. Make sure you discuss any questions you have with your health care provider. Document Revised: 05/28/2021 Document Reviewed: 05/28/2021 [employer] Patient Education 2022 SDI. Follow Up Care 05/11/2023 08:07:36 With:TRINA WATSON, Med Hilario, URL Address: [facility] [employer] [address] [place], [place] [id number]- When: Unknown [facility] 07-27-2023 Evaluation note* Encounter Date Diagnosis Assessment Notes Treatment Notes Treatment Clinical Notes Apr, Hypomagnesemia (ICD-10 - E83.42) [employer] Other 07-13-2023 Hospital Discharge instructions Patient Education 05/11/2023 07:50:18 EU - Cystoscopy with Botox Injection Discharge Instructions (Custom) Cystoscopy with Botox injection Voiding after the procedure: there may be some pain, burning, urgency, frequency and blood tinged urine following the procedure. These symptoms usually resolve within 2-5 days. Drink the amount of fluid it takes to keep the urine pink to yellow or clear in color. Drinking enough water and fluids will help to ease any discomfort after your procedure. It may take a few days to a week to notice a gradual improvement in the overactive bladder symptoms. If you are having problems that seem out of the ordinary, please call. If unable to contact your physician and you feel it is an emergency, go to the nearest emergency room or call 911 Do not lift more than fifteen pounds for 1-2 days. If you see a lot of blood, you probably did too much. Diet you may resume your normal diet. Pain control You may take extra strength Tylenol or Motrin for discomfort. Call if you have a fever over 100 degrees. Follow Up Care 04/12/2023 15:40:50 With:Med TRINA Address: [address] [facility] [address] [place], [place] [id number]- [facility] (1) When:3 months Comments:Call for followup appointment, with bladder scan checking for residual urine at that visit. [facility]07-13-2023 Note [id number]:[id number] 05-11-2023 NoteCystoscopy with Botox injection ? Voiding after the procedure: there may be some pain, burning, urgency, frequency and blood tingedurine following the procedure. These symptoms usually resolve within 2-5 days. Drink the amount of fluid it takes to keep the urine pink to yellow or clear in color. Drinking enough water and fluids will help to ease any discomfort after your procedure. ? It may take a few days to a week to notice a gradual improvement in the overactive bladder symptoms. ? If you are having problems that seem out of the ordinary, please call. ? If unable to contact your physician and you feel it is an emergency, go to the nearest emergency room or call 911 ? Do not lift more than fifteen pounds for 1-2 days. If you see a lot of blood, you probably did too much. ? Diet ? you may resume your normal diet. ? Pain control ? You may take extra strength Tylenol or Motrin for discomfort. ? Call if you have a fever over [address] 05-08-2023 Evaluation note* Encounter Date Diagnosis Assessment Notes Treatment Notes Treatment Clinical Notes Apr, Hypomagnesemia (ICD-10 - E83.42) [employer] Other 04-12-2023 Evaluation note* Encounter Date Diagnosis Assessment Notes Treatment Notes Treatment Clinical Notes Jan, Early satiety (ICD-10 - R68.81) Jan, Gastritis (ICD-10 - K29.70) Continue Omeprazole as directed Rto 1 yr Jan, Borborygmi (ICD-10 - R19.8) [employer] Other 10-04-[facility]22 [facility] Discharge instructions Patient Education 06/22/2022 13:02:36 Urinary Incontinence Urinary Incontinence Urinary incontinence refers to a condition in which a person is unable to control where and when topass urine. A person with this condition will urinate when he or she does not mean to (involuntarily). What are the causes? This condition may be caused by: Medicines. Infections. Constipation. Overactive bladder muscles. Weak bladder muscles. Weak pelvic floor muscles. These muscles provide support for the bladder, intestine, and, in women,the uterus. Enlarged prostate in men. The prostate is a gland near the bladder. When it gets too big, it can pinch the urethra. With the urethra blocked, the bladder can weaken and lose the ability to empty properly. Surgery. Emotional factors, such as anxiety, stress, or post-traumatic stress disorder (PTSD). Pelvic organ prolapse. This happens in women when organs shift out of place and into the vagina. This shift can prevent the bladder and urethra from working properly. What increases the risk? The following factors may make you more likely to develop this condition: Older age. Obesity and physical inactivity. and childbirth. Menopause. Diseases that affect the nerves or spinal cord (neurological diseases). Long-term (chronic) coughing. This can increase pressure on the bladder and pelvic floor muscles. What are the signs or symptoms? Symptoms may vary depending on the type of urinary incontinence you have. They include: A sudden urge to urinate, but passing urine involuntarily before you can get to a bathroom (urge incontinence). Suddenly passing urine with any activity that forces urine to pass, such as coughing, laughing, exercise, or sneezing (stress incontinence). Needing to urinate often, but urinating only a small amount, or constantly dribbling urine (overflow incontinence). Urinating because you cannot get to the bathroom in time due to a physical disability, such as arthritis or injury, or communication and thinking problems, such as Alzheimer disease (functional incontinence). How is this diagnosed? This condition may be diagnosed based on: Your medical history. A physical exam. Tests, such as: ?Urine tests. ?X-rays of your kidney and bladder. ?Ultrasound. ?CT scan. ?Cystoscopy. In this procedure, a health care provider inserts a tube with a light and camera (cystoscope) through the urethra and into the bladder in order to check for problems. ?Urodynamic testing. These tests assess how well the bladder, urethra, and sphincter can store and release urine. There are different types of urodynamic tests, and they vary depending on what the test is measuring. To help diagnose your condition, your health care provider may recommend that you keep a log of when you urinate and how much you urinate. How is this treated? Treatment for this condition depends on the type of incontinence that you have and its cause. Treatment may include: Lifestyle changes, such as: ?Quitting smoking. ?Maintaining a healthy weight. ?Staying active. Try to get 150 minutes of moderate-intensity exercise every week. Ask your health care provider which activities are safe for you. ?Eating a healthy diet. ?Avoid high-fat foods, like fried foods. ?Avoid refined carbohydrates like white bread and white rice. ?Limit how much alcohol and caffeine you drink. ?Increase your fiber intake. Foods such as fresh fruits, vegetables, beans, and whole grains are healthy sources of fiber. Pelvic floor muscle exercises. Bladder training, such as lengthening the amount of time between bathroom breaks, or using the bathroom at regular intervals. Using techniques to suppress bladder urges. This can include distraction techniques or controlled breathing exercises. Medicines to relax the bladder muscles and prevent bladder spasms. Medicines to help slow or prevent the growth of a man's prostate. Botox injections. These can help relax the bladder muscles. Using pulses of electricity to help change bladder reflexes (electrical nerve stimulation). For women, using a manager medical device to prevent urine leaks. This is a small, tampon-like, disposable device that is inserted into the urethra. Injecting collagen or carbon beads (bulking agents) into the urinary sphincter. These can help thicken tissue and close the bladder opening. Surgery. Follow these instructions at home: Lifestyle Limit alcohol and caffeine. These can fill your bladder quickly and irritate it. Keep yourself clean to help prevent odors and skin damage. Ask your doctor about special skin creams and cleansers that can protect the skin from urine. Consider wearing pads or adult diapers. Make sure to change them regularly, and always change them right after experiencing incontinence. General instructions Take deop-vsj-ffagkdr and prescription medicines only as told by your health care provider. Use the bathroom about every 3 4 hours, even if you do not feel the need to urinate. Try to empty your bladder completely every time. After urinating, wait a minute. Then try to urinate again. Make sure you are in a relaxed position while urinating. If your incontinence is caused by nerve problems, keep a log of the medicines you take and the times you go to the bathroom. Keep all follow-up visits as told by your health care provider. This is important. Contact a health care provider if: You have pain that gets worse. Your incontinence gets worse. Get help right away if: You have a fever or chills. You are unable to urinate. You have redness in your groin area or down your legs. Summary Urinary incontinence refers to a condition in which a person is unable to control where and when topass urine. This condition may be caused by medicines, infection, weak bladder muscles, weak pelvic floor muscles, enlargement of the prostate (in men), or surgery. The following factors increase your risk for developing this condition: older age, obesity, and childbirth, menopause, neurological diseases, and chronic coughing. There are several types of urinary incontinence. They include urge incontinence, stress incontinence, overflow incontinence, and functional incontinence. This condition is usually treated first with lifestyle and behavioral changes, such as quitting smoking, eating a healthier diet, and doing regular pelvic floor exercises. Other treatment options include medicines, bulking agents, medical devices, electrical nerve stimulation, or surgery. This information is not intended to replace advice given to you by your health care provider. Make sure you discuss any questions you have with your health care provider. Document Released: 11/23/2005 Document Revised: 10/26/2018 Document Reviewed: 01/25/2018 [employer] Patient Education 2020 [employer] 06/22/2022 13:02:35 Kegel Exercises Kegel Exercises Kegel exercises can help strengthen your pelvic floor muscles. The pelvic floor is a group of muscles that support your rectum, small intestine, and bladder. In females, pelvic floor muscles also help support the womb (uterus). These muscles help you control the flow of urine and stool. Kegel exercises are painless and simple, and they do not require any equipment. Your provider may suggest Kegel exercises to: Improve bladder and bowel control. Improve sexual response. Improve weak pelvic floor muscles after surgery to remove the uterus (hysterectomy) or (females). Improve weak pelvic floor muscles after prostate gland removal or surgery (males). Kegel exercises involve squeezing your pelvic floor muscles, which are the same muscles you squeezewhen you try to stop the flow of urine or keep from passing gas. The exercises can be done while sitting, standing, or lying down, but it is best to vary your position. Exercises How to do Kegel exercises: 1.Squeeze your pelvic floor muscles tight. You should feel a tight lift in your rectal area. If youare a female, you should also feel a tightness in your vaginal area. Keep your stomach, buttocks, and legs relaxed. 2.Hold the muscles tight for up to 10 seconds. 3.Breathe normally. 4.Relax your muscles. 5.Repeat as told by your health care provider. Repeat this exercise daily as told by your health care provider. Continue to do this exercise for at least 4 6 weeks, or for as long as told by your health care provider. You may be referred to a physical therapist who can help you learn more about how to do Kegel exercises. Depending on your condition, your health care provider may recommend: Varying how long you squeeze your muscles. Doing several sets of exercises every day. Doing exercises for several weeks. Making Kegel exercises a part of your regular exercise routine. This information is not intended to replace advice given to you by your health care provider. Make sure you discuss any questions you have with your health care provider. Document Released: 10/02/2013 Document Revised: 06/05/2019 Document Reviewed: 06/05/2019 [employer] Patient Education 2020 SDI. Follow Up Care 05/23/2022 15:12:51 With:TRINA WATSON, Med Hilario, URL Address: When:Within 6 Month(s) Comments:w/PVR [facility] 07-25-2022 Hospital Discharge instructions Patient Education 05/23/2022 14:44:32 EU - Cystoscopy with Botox Injection Discharge Instructions (Custom) Cystoscopy with Botox injection Voiding after the procedure: there may be some pain, burning, urgency, frequency and blood tinged urine following the procedure. These symptoms usually resolve within 2-5 days. Drink the amount of fluid it takes to keep the urine pink to yellow or clear in color. Drinking enough water and fluids will help to ease any discomfort after your procedure. It may take a few days to a week to notice a gradual improvement in the overactive bladder symptoms. If you are having problems that seem out of the ordinary, please call. If unable to contact your physician and you feel it is an emergency, go to the nearest emergency room or call 911 Do not lift more than fifteen pounds for 1-2 days. If you see a lot of blood, you probably did too much. Diet you may resume your normal diet. Pain control You may take extra strength Tylenol or Motrin for discomfort. Call if you have a fever over 100 degrees. Follow Up Care 05/11/2022 11:39:36 With:Med TRINA Address: [facility] [place] [id number] [facility] (1) When:2 to 4 weeks Comments:Call for followup appointment, and a bladder scan to check bladder emptying will be performed at that visit. [facility]07-13-2022 Hospital Discharge instructions Patient Education 05/11/2022 11:28:58 Overactive Bladder, Adult Overactive Bladder, Adult Overactive bladder refers to a condition in which a person has a sudden need to pass urine. The person may leak urine if he or she cannot get to the bathroom fast enough (urinary incontinence). A person with this condition may also wake up several times in the night to go to the bathroom. Overactive bladder is associated with poor nerve signals between your bladder and your brain. Your bladder may get the signal to empty before it is full. You may also have very sensitive muscles thatmake your bladder squeeze too soon. These symptoms might interfere with daily work or social activities. What are the causes? This condition may be associated with or caused by: Urinary tract infection. Infection of nearby tissues, such as the prostate. Prostate enlargement. Surgery on the uterus or urethra. Bladder stones, inflammation, or tumors. Drinking too much caffeine or alcohol. Certain medicines, especially medicines that get rid of extra fluid in the body (diuretics). Muscle or nerve weakness, especially from: ?A spinal cord injury. ?Stroke. ?Multiple sclerosis. ?Parkinson's disease. Diabetes. Constipation. What increases the risk? You may be at greater risk for overactive bladder if you: Are an older adult. Smoke. Are going through menopause. Have prostate problems. Have a neurological disease, such as stroke, dementia, Parkinson's disease, or multiple sclerosis (MS). Eat or drink things that irritate the bladder. These include alcohol, spicy food, and caffeine. Are overweight or obese. What are the signs or symptoms? Symptoms of this condition include: Sudden, strong urge to urinate. Leaking urine. Urinating 8 or more times a day. Waking up to urinate 2 or more times a night. How is this diagnosed? Your health care provider may suspect overactive bladder based on your symptoms. He or she will diagnose this condition by: A physical exam and medical history. Blood or urine tests. You might need bladder or urine tests to help determine what is causing your overactive bladder. You might also need to see a health care provider who specializes in urinary tract problems (urologist). How is this treated? Treatment for overactive bladder depends on the cause of your condition and whether it is mild or severe. You can also make lifestyle changes at home. Options include: Bladder training. This may include: ?Learning to control the urge to urinate by following a schedule that directs you to urinate at regular intervals (timed voiding). ?Doing Kegel exercises to strengthen your pelvic floor muscles, which support your bladder. Toning these muscles can help you control urination, even if your bladder muscles are overactive. Special devices. This may include: ?Biofeedback, which uses sensors to help you become aware of your body's signals. ?Electrical stimulation, which uses electrodes placed inside the body (implanted) or outside the body. These electrodes send gentle pulses of electricity to strengthen the nerves or muscles that control the bladder. ?Women may use a plastic device that fits into the vagina and supports the bladder (pessary). Medicines. ?Antibiotics to treat bladder infection. ?Antispasmodics to stop the bladder from releasing urine at the wrong time. ?Tricyclic antidepressants to relax bladder muscles. ?Injections of botulinum toxin type A directly into the bladder tissue to relax bladder muscles. Lifestyle changes. This may include: ?Weight loss. Talk to your health care provider about weight loss methods that would work best for you. ?Diet changes. This may include reducing how much alcohol and caffeine you consume, or drinking fluids at different times of the day. ?Not smoking. Do not use any products that contain nicotine or tobacco, such as cigarettes and e-cigarettes. If you need help quitting, ask your health care provider. Surgery. ?A device may be implanted to help manage the nerve signals that control urination. ?An electrode may be implanted to stimulate electrical signals in the bladder. ?A procedure may be done to change the shape of the bladder. This is done only in very severe cases. Follow these instructions at home: Lifestyle Make any diet or lifestyle changes that are recommended by your health care provider. These may include: ?Drinking less fluid or drinking fluids at different times of the day. ?Cutting down on caffeine or alcohol. ?Doing Kegel exercises. ?Losing weight if needed. ?Eating a healthy and balanced diet to prevent constipation. This may include: ?Eating foods that are high in fiber, such as fresh fruits and vegetables, whole grains, and beans. ?Limiting foods that are high in fat and processed sugars, such as fried and sweet foods. General instructions Take sytf-ohh-zhycsbl and prescription medicines only as told by your health care provider. If you were prescribed an antibiotic medicine, take it as told by your health care provider. Do notstop taking the antibiotic even if you start to feel better. Use any implants or pessary as told by your health care provider. If needed, wear pads to absorb urine leakage. Keep a journal or log to track how much and when you drink and when you feel the need to urinate. This will help your health care provider monitor your condition. Keep all follow-up visits as told by your health care provider. This is important. Contact a health care provider if: You have a fever. Your symptoms do not get better with treatment. Your pain and discomfort get worse. You have more frequent urges to urinate. Get help right away if: You are not able to control your bladder. Summary Overactive bladder refers to a condition in which a person has a sudden need to pass urine. Several conditions may lead to an overactive bladder. Treatment for overactive bladder depends on the cause and severity of your condition. Follow your health care provider's instructions about lifestyle changes, doing Kegel exercises, keeping a journal, and taking medicines. This information is not intended to replace advice given to you by your health care provider. Make sure you discuss any questions you have with your health care provider. Document Released: 08/12/2010 Document Revised: 02/06/2020 Document Reviewed: 11/01/2018 [employer] Patient Education 2019 SDI. Follow Up Care 12/27/2021 11:50:32 With:TRINA WATSON, Med Hilario, URL Address: [address] [place] [address] [place] [id number]- When: Unknown [facility] 05-26-2022 Evaluation note* Encounter Date Diagnosis Assessment Notes Treatment Notes Treatment Clinical Notes February, Hypocalcemia (ICD-10 - E83.51) She has longstanding hypocalcemia due to the idiopathic hypoparathyroidism. I have increased the dose of the calcitriol to 0.5 mcg once daily and advised her to comply with the oral calcium and vitamin D. I have explained to her the potential risk of cardiac arrest due to the critically low calcium. She understood and verbalized information. February, Hypomagnesemia (ICD- 10 - E83.42) She has hypomagnesemia due to the GI losses. She had multiple bowel surgeries in the past. Continue oral magnesium supplement. February, Vitamin D deficiency (ICD-10 - E55.9) Her vitamin D is within the target goal. Continue vitamin D. February, Idiopathic hypoparathyroidism (ICD-10 - E20.0) She has a idiopathic hypoparathyroidism as per endocrinology. Other possibilities that may be hypomagnesemia related hypoparathyroidism. February, Hypokalemia (ICD-10 - E87.6) She has hypokalemia due to the GI losses. I have prescribed her oral potassium 20 mg once daily and advised her to comply with it. I have explained to her potential risk of cardiac arrest due to the hypokalemia [employer] Other 12-20-2021 Evaluation note* Encounter Date Diagnosis Assessment Notes Treatment Notes Treatment Clinical Notes Sep, Abnormal skin growth (ICD-10 - D49.2) Will send to derm for further evaluation and treatment. Advised patient that area will likely need to be removed. Message sent to community recreation coordinator to schedule and make appointment for patient. Area covered with silvadine cream in office with non adherent telfa and coban. Advised patient not to pick at area. Immediate evaluation in ER for signs of infection, including, fever, red streaking, foul odor, any new or worsening symptoms. Patient verbalizes understanding and is agreeable with treatment plan [employer] Other 11-09-2021 Evaluation note* Encounter Date Diagnosis Assessment Notes Treatment Notes Treatment Clinical Notes Aug, Arthritis of left knee (ICD-10 - M17.12) Patient is progressing well. Continue physical therapy exercises and TKA precautions. Instructed patient to call with any questions or concerns. Aug, History of total left knee replacement (ICD-10 - Z96.652) [employer] Other 11-04-2021 Evaluation note* Encounter Date Diagnosis Assessment Notes Treatment Notes Treatment Clinical Notes Aug, Hypocalcemia (ICD-10 - E83.51) She has longstanding hypocalcemia due to the idiopathic hypoparathyroidism. Currently she takes calcium supplement . Continue calcitriol once daily due to the persistent hypocalcemia. Continue Calcium supplement. I have advised her to comply with medications. I have explained to her the potential risk of cardiac arrest due to the critically low calcium. She understood and verbalized information. Aug, Hypomagnesemia (ICD- 10 - E83.42) She has hypomagnesemia due to the GI losses. She had multiple bowel surgeries in the past. Continue oral magnesium supplement. Aug, Vitamin D deficiency (ICD-10 - E55.9) Her vitamin D is within the target goal. Continue vitamin D. Aug, Idiopathic hypoparathyroidism (ICD-10 - E20.0) She has a idiopathic hypoparathyroidism as per endocrinology. Other possibilities that may be hypomagnesemia related hypoparathyroidism. [employer] Other Evaluation + Plan note Future Appointments Appointment Date:05/16/2022 10:00:00 AM Scheduled Provider: Location:[facility] Appointment Type:Urology CALL PAT FT Appointment Date:05/23/2022 02:30:00 PM Scheduled Provider: Location:[facility] Appointment Type:Urology FT [facility] Evaluation + Plan note Future Appointments Appointment Date:05/23/2022 02:30:00 PM Scheduled Provider: Location:[facility] Appointment Type:Urology FT [facility] Evaluation + Plan note Future Appointments Appointment Date:05/23/2022 02:30:00 PM Scheduled Provider: Location:[facility] Appointment Type:Urology FT Diagnostic Tests Pending * [facility]ments Appointment Date:06/22/2022 11:45:00 AM Scheduled Provider:Med MENA MD Location:[facility] App[facility]ment [facility] Future Appointments Appointment Date:12/14/2022 11:15:00 AM Scheduled Provider:Med MENA MD Location:[facility] Appointment Type:URO Office Visit [facility] Evaluation + Plan note Future Appointments Appointment Date:08/16/2023 09:30:00 AM Scheduled Provider:Med MENA MD Location:[facility] Appointment [facility] Appointments Appointment Date:09/27/2023 01:00:00 PM Scheduled Provider:Med MENA MD Location:[facility] Appointment Type:URO Office Visit Diagnostic Tests Pending * Urine Culture [facility] App[facility]ments Appointment Date:09/27/2023 01:00:00 PM Scheduled Provider:Med MENA MD Location:[facility] Appointment Type:URO Office Visit [facility] Evaluation + Plan note Future Appointments Appointment Date:10/31/2023 09:45:00 AM Scheduled Provider: Location:[facility] Appointment Type:Urology CALL PAT FT Appointment Date:11/13/2023 02:45:00 PM Scheduled Provider: Location:[facility] Appointment Type:Urology FT [facility] Evaluation + Plan note Future Appointments Appointment Date:04/10/2024 10:00:00 AM Scheduled Provider: Location:[facility] Appointment Type:[facility]O [facility] Future Appointments Appointment Date:10/16/2024 01:00:00 PM Scheduled Provider:Med MENA MD Location:[facility] Appointment Type:URO Office Visit [facility] Evkctarpgw noteNo Assessments Information Available [facility] note[facility] InformationNort Search123 Other evaluihvxq noteNo assessment information available [facility] Work Phone: Evaluation note* Diagnosis Onset Date Resolution Status Hypomagnesemia acute CAD (coronary artery disease) chronic Hyperlipidemia chronic Hypokalemia resolved [facility] Work Phone: History and physical note Author Madhav Conrad [facility] August 02, 2022 12:52pm Note Date/Time August 02, 2022 12 :52pm [facility] [address] [place] [address] Gastroenterology H&P Signed Patient: Narciso Velasquez MR#: [id number] : 1940 Acct:[id number] Age/Sex: 81 / F Adm Date: 2 Loc: Room: Type: [facility] Attending Dr: Madhav Conrad MD Copies to: MD Seema Ribera NP-Vijya~ Date of Service: 08/02/2022 HISTORY & PHYSICAL: Patient's history with special attention to the cardiovascular, pulmonary systems and the current problem was reviewed with the patient immediately prior to the procedure. Present medications and doses reviewed in the EMR. Allergies and pertinent laboratory tests were also reviewedat this time in the EMR. The physical examination, as below, was then performed. Indication, assessment and HPI: 81-year-old female presents for EGD to evaluate early satiety Family history of GI malignancy? No PHYSICAL EXAMINATION Mouth and Pharynx : Moist mucus membranes, normal dentition Cardiac: Regular rate, regular rhythm Pulmonary: Clear to auscultation bilaterally, no wheezing Neurological: Alert and oriented x3, no focal deficits noted Abdomen: Abdomen soft, non-tender REVIEW OF SYSTEMS Constitutional: Denies malaise, fevers Cardiovascular: Denies chest pain, palpitations Respiratory: Denies shortness of breath, wheezing Gastrointestinal: Per HPI Genitourinary: Denies dysuria, polyuria Musculoskeletal: Denies joint swelling, joint stiffness Neurological: Denies numbness, tingling Integumentary: Denies rashes, skin lesions Endocrine: Denies fatigue, weight loss Written informed consent obtained from the patient. Risks (including but not limited to perforation, infection, bloating, bleeding, need for emergent surgeryand loss of life), benefits and alternatives explained and questions answered. The patient verbalized understanding. Based on history patient is an appropriate candidate for the procedure. Madhav Conrad MD Documented By: Madhav Conrad MD 08/02/22 1251 Signed By: <Electronically signed by Madhav Conrad MD> 08/02/22 1252 [facility] Work Phone: History general Narrative - Reported* Type Description Date Medical History hypocalcemia Medical History GERD Medical History HTN Medical History hypothyroidism Medical History vit d dif Medical History hypoparathyroidism Medical History heart attack Medical History arthritis Medical History kidney stone Medical History H/O CVA Medical History CORONARY DISEASE Medical History PARKINSON DISEASE Medical History LEFT TOTAL KNEE REPLACEMENT ON Surgical History colostomy reversed Surgical History hernia repair Surgical History removal of part of colon due to diverticulitis Surgical History MAIA Surgical History bladder suspension Surgical History cholecystectomy Surgical History appendectomy Surgical History knee arthroscopy Surgical History Dble Hernia, and removal choles emmett bag 05/14/2012 Surgical History HYSTERECTOMY Surgical History CARPAL TUNNEL SURGERY BILATERAL Surgical History VEIN STRIPPING BILATERAL LEGS Surgical History HEART SURGERY WITH STENT PLACEM ENT Surgical History KNEE REPLACEMENT TOTAL RIGHT Surgical History left tka 03/09/21 Hospitalization History diverticulitus 2009 Hospitalization History heart attack 11/2016 Hospitalization History SEE ABOVE [employer] Other Hospital course Narrative No data available for this section [facility] Hospital Discharge instructions No data available for this section [facility] Hospital Discharge instructions Additional Instructions DISCHARGE INSTRUCTIONS FOR UPPER ENDOSCOPY WHAT TO EXPECT: - You may feel full, gassy or cramping after your procedure. In some cases, this may be from a few hours to a day. Walking may help relieve the discomfort. - Your throat may feel sore today from the scope that the doctor passed through your throat to visualize your stomach. Take a throat lozenge or suck on ice to ease the discomfort. - You may notice some streaks of blood in your sputum if the doctor has taken a biopsy. - You should begin to recover from anesthesia within 1 hour of the procedure, however may feel groggy for the next 24 hours. DO's AND DON'Ts: - Call your doctor right away if you have a hard abdomen, severe pain, vomiting or if you cough up large amounts of blood. - Call your doctor if you develop any rashes, hives or difficulty breathing. - If you take 81 mg aspirin for your heart it is safe to resume this medication. - If you take other blood thinner medications your doctor will instruct you when these can safely be resumed. - Do NOT drive for 24 hours. - Do NOT operate machinery such as power tools, lawn mowers, snow blowers, sewing machines, etc. for 24 hours. - Avoid alcoholic beverages and drugs for allergies, nerves, or sleep. - Do NOT stay alone. Do NOT leave your child unattended. - Do NOT make important personal or business decisions or sign any legal documents. - Eat solid foods and drink liquids in smaller amounts than usual until normal appetite returns. If you should experience an upset stomach, liquids high in sugar content (soda, Chris-Aid, non-acid juices) are recommended. - Do NOT smoke. - Do take it easy today. You need not stay in bed, but avoid strenuous activities such as jogging or working out. FOLLOW UP & RECOMMENDATIONS: - Start omeprazole 40 mg once daily. Take this 30 minutes before your first meal of the day. - Dr. Conrad's office will arrange follow-up for you - Notify the doctor if you have any problems. - Follow up with PCP. - Office number [phone].[facility] Work Phone: Progress note No data available for this section [facility] Summary Purpose Family History No Family History Records Found Relationship Condition Age at Onset Recorded Date/T charles father Heart problem Unknown Not Specified Intestinal obstruction Unknown sister Malignant neoplasm of pancreas Unknown Unknown Family Member Name Dates Details Family history of cardiac di sorder: Father, Sibling(V17.49, Z82.49) Status:Active Family history of myocardial infarction: Father(V17.3, Z82.49) Status:Active No pertinent family history: Mother(V49.89, Z78.9) Status:Active Unknown Family Member Name Dates Details Family history of cardiac di sorder: Father, Sibling(V17.49, Z82.49) Status:Active Family history of myocardial infarction: Father(V17.3, Z82.49) Status:Active No pertinent family history: Mother(V49.89, Z78.9) Status:Active Unknown Family Member Name Dates Details Family history of cardiac di sorder: Father, Sibling(V17.49, Z82.49) Status:Active Family history of myocardial infarction: Father(V17.3, Z82.49) Status:Active No pertinent family history: Mother(V49.89, Z78.9) Status:Active Unknown Family Member Name Dates Details Family history of cardiac di sorder: Father, Sibling(V17.49, Z82.49) Status:Active Family history of myocardial infarction: Father(V17.3, Z82.49) Status:Active No pertinent family history: Mother(V49.89, Z78.9) Status:Active Relationship Condition Age at Onset Recorded Date/T charles father Heart problem Unknown Not Specified Intestinal obstruction Unknown sister Malignant neoplasm of pancreas Unknown brother Cerebrovascular accident (CVA) Unknown Unknown Family Member Name Dates Details Family history of cardiac di sorder: Father, Sibling(V17.49, Z82.49) Status:Active Family history of myocardial infarction: Father(V17.3, Z82.49) Status:Active No pertinent family history: Mother(V49.89, Z78.9) Status:Active Unknown Family Member Name Dates Details Family history of cardiac di sorder: Father, Sibling(V17.49, Z82.49) Status:Active Family history of myocardial infarction: Father(V17.3, Z82.49) Status:Active No pertinent family history: Mother(V49.89, Z78.9) Status:Active Relationship Condition Age at Onset Recorded Date/T charles father Heart problem Unknown Not Specified Intestinal obstruction Unknown sister Malignant neoplasm of pancreas Unknown brother Cerebrovascular accident (CVA) Unknown brother Heart disease Unknown History of stroke Unknown father Heart disease Unknown Cardiomegaly Unknown Unknown family member Unknown Not Specified Unknown natural son Malignant neoplasm Unknown sister Malignant neoplasm Unknown Advance Directives No Advanced Directives Records Found Advance Directive Response Recorded Date/ Time Advance Directives No January 24 1:55pm Chief Complaint and Reason for Visit Chief Complaint M25.562 Hand and Foot Pain Knee Pain Chief Complaint M25.562 Hand and Foot Pain Knee Pain Z01.818 Chief Complaint Early Satiety Early Satiety Chief Complaint BENJIE HEAL/FOOT PAIN Chief Complaint RENAL F/U Reason for Visit Hypomagnesemia CAD (coronary artery disease) Hyperlipidemia Hypokalemia Chief Complaint * NARCISO VELASQUEZ is being seen for a 8 month follow-up of. * Patient is in the office for follow-up for coronary disease with no events noted since her last visit several months ago. Her lipids have been under excellent control on Lipitor without side effects.She has no angina orthopnea PND or lower extremity edema, no palpitations syncope or near syncope. She follows with rheumatology without any recent flareup of rheumatoid arthritis. Examination was essentially normal. Medical therapy was reviewed and the patient at the present time is very satisfiedwith her condition with no changes planned. * ASSESSMENT AND PLAN: * 1. Coronary artery disease, status post angioplasty of the left * anterior descending in 2015 and 2016. She will remain on statin and * aspirin. Presently asymptomatic, nuclear stress test 2020 was normal. Continue aspirin and statin indefinitely * 2. Hyperlipidemia, on statin therapy under excellent control. Lipid profile was ordered * 3. Hypothyroidism on replacement therapy, thyroid function has been followed. * 4 Parkinson's disease on Sinemet followed by neurology, currently stable * 5 rheumatoid arthritis followed by rheumatology locally, currently stable * Donna Ferrari MD, FACC * NARCISO VELASQUEZ is being seen for a 6 month follow-up of. * Patient is in the office for follow-up for the problems noted below accompanied by her . Since her last visit 6 months ago she has had no cardiac events. There is no angina or dyspnea no palpitations orthopnea PND or lower extremity edema. Her mature arthritis followed by rheumatology and see ms to be fairly controlled. Examination was normal today. Her lab data from recent testing were reviewed and discussed with her and her numbers are great. * ASSESSMENT AND PLAN: * 1. Coronary artery disease, status post angioplasty of the left * anterior descending in 2015 and 2016. She will remain on statin and * aspirin. Presently asymptomatic, nuclear stress test 2020 was normal. Continue aspirin and statin indefinitely * 2. Hyperlipidemia, on statin therapy under excellent control. Lipid profile was ordered * 3. Hypothyroidism on replacement therapy, thyroid function has been followed. * 4 Parkinson's disease on Sinemet followed by neurology, currently stable * 5 rheumatoid arthritis followed by rheumatology locally, currently stable * Donna Ferrari MD, [facility] * NARCISO VELASQUEZ is being seen for a 6 month follow-up of. * Patient is in the office for follow-up for the problems noted below. Since her last visit last May she remained angina free her main concern is orthopedic problems which will likely never go away.Lab data from last visit was discussed with her and her numbers look great including her LDL cholest johan which was only 20 mg/dL. She is on atorvastatin 20 mg daily which has been well-tolerated. Herexamination was unremarkable today. * ASSESSMENT AND PLAN: * 1. Coronary artery disease, status post angioplasty of the left anterior descending in 2015 and 2016. She will remain on statin and aspirin. Presently asymptomatic, nuclear stress test 2020 was normal. Continue aspirin and statin indefinitely * 2. Hyperlipidemia, on statin therapy under excellent control. LDL 20 mg/dL May 2022 * 3. Hypothyroidism on replacement therapy, thyroid function has been followed. And has been under control * 4 Parkinson's disease on Sinemet followed by neurology, currently stable * 5 rheumatoid arthritis followed by rheumatology locally, currently stable * Donna Ferrari MD, [facility] * NARCISO VELASQUEZ is being seen for a 6 month follow-up of. * Patient is in the office for follow-up for the problems noted below. Since her last visit last May she remained angina free her main concern is orthopedic problems which will likely never go away.Lab data from last visit was discussed with her and her numbers look great including her LDL cholest johan which was only 20 mg/dL. She is on atorvastatin 20 mg daily which has been well-tolerated. Herexamination was unremarkable today. * ASSESSMENT AND PLAN: * 1. Coronary artery disease, status post angioplasty of the left anterior descending in 2015 and 2016. She will remain on statin and aspirin. Presently asymptomatic, nuclear stress test 2020 was normal. Continue aspirin and statin indefinitely * 2. Hyperlipidemia, on statin therapy under excellent control. LDL 20 mg/dL May 2022 * 3. Hypothyroidism on replacement therapy, thyroid function has been followed. And has been under control * 4 Parkinson's disease on Sinemet followed by neurology, currently stable * 5 rheumatoid arthritis followed by rheumatology locally, currently stable * Donna Ferrari MD, FACC * NARCISO VELASQUEZ is being seen for a 6 month follow-up of. * Patient is in the office for follow-up for the problems noted below. She came with her . Shehad no complaints from a cardiac standpoint. There is no indication of recurrent angina, she has noside effect of medications, she follows with rheumatology for rheumatoid arthritis which has been stable also follows with neurology for Parkinson's disease which is under control. She has limited mobility. She has not needed to use nitroglycerin. She had recent lab data through her PCP which I requested. Examination was unremarkable * ASSESSMENT AND PLAN: * 1. Coronary artery disease, status post angioplasty of the left anterior descending in 2015 and 2016. She will remain on statin and aspirin. Presently asymptomatic, nuclear stress test 2020 was normal. Continue aspirin and statin indefinitely * 2. Hyperlipidemia, on statin therapy recent lab data done through her PCP were requested * 3. Hypothyroidism on replacement therapy, thyroid function has been followed. * 4 Parkinson's disease on Sinemet followed by neurology, currently stable * 5 rheumatoid arthritis followed by rheumatology locally, currently stable * Donna Ferrari MD, FACC Reason for Referral Reason Abnormal Growth Left Arm, bleeding, firm, tender/painful at times Diagnosis 1 Abnormal skin growth (D49.2) Referral Organization [facility] Referring Provider First Name Alyssa Referring Provider Last Name Janee Referring Provider Specialty Nurse Pracmartin wattr Referred Organization [facility] Referred Provider Castillo Mcgowan Thomas Referred Address ,[place],[address] Referred Provider Specialty Dermatology Referral Priority Routine General Notes Xochitl Craig 021 02:26:04 PM >Received today and sent P2P even though the notes are not locked Additional Source Comments INFORMATION SOURCE (unrecogn ized section and content) DATE CREATED AUTHOR 04/19/2018 [facility] DATE CREATED AUTHOR AUTHOR'S ORGANIZ ATION 03/15/2020 [facility] DATE CREATED AUTHOR AUTHOR'S ORGANIZ ATION 12/01/2022 [facility] DATE CREATED AUTHOR AUTHOR'S ORGANIZ ATION 07/15/2023 [facility] DATE CREATED AUTHOR AUTHOR'S ORGANIZ ATION 07/22/2023 [facility] DATE CREATED AUTHOR AUTHOR'S ORGANIZ ATION 07/22/2023 [employer] DATE CREATED AUTHOR AUTHOR'S ORGANIZ ATION 03/22/2024 [facility] DATE CREATED AUTHOR AUTHOR'S ORGANIZ ATION 04/13/2024 [facility] REASON FOR VISIT (unrecogniz ed section and content) Hypocalcemia and hyperphosph atemiaRecheck Left TKASORE ON RIGHT FOREARMClinicalCKD6 month follow upPossible UTIPT HERE FOR 6 MONTH FOLLOW UP. PAINTIENT COMPLAINTS OF BORBORYGMI.REFILLREFILL Care Team (unrecognized sect ion and content) Team Status: Active Member Role Status Dates Seema Sutherland Primary Care Provider Active Team Status: Active Member Role Status Dates Seema Sutherland Primary Care Provider Active Sta rt: February 27, 2024 Aba Moon MD Attending Provider Active Start : February 27, 2024 Team Status: Inactive Member Role Status Dates Seema Sutherland Primary Care Provider Active Sta rt: March 07, 2024 End: March 07, 2024 Aba Moon MD Attending Provider Active Start : March 07, 2024 End: March 07, 2024 Team Status: Inactive Member Role Status Dates Madhav Conrad MD Attending Provider Active Seema Sutherland Primary Care Provider Active Team Status: Inactive Member Role Status Dates Seema Sutherland Primary Care Provider Active Curtis Alcocer MD Attending Provider Active Goals (unrecognized section and content) Goals may be documented in a n alternate section FOR RECORDS PERTAINING TO PATIENTS WHO ARE OR HAVE BEEN ENROLLED IN A CHEMICAL DEPENDENCY/SUBSTANCEABUSE PROGRAM, SOME INFORMATION MAY BE OMITTED. This clinical summary was aggregated from multiple sources. Caution should be exercised in using it in the provision of clinical care. This summary normalizes information from multiple sources, and as a consequence, information in this document may materially change the coding, format and clinical context of patient data. In addition, data may be omitted in some cases. CLINICAL DECISIONS SHOULD BE BASED ON THE PRIMARY CLINICAL RECORDS. [facility] [employer] [facility]. provides no warranty or guarantee of the accuracy or completeness of information in this document.
[2024-06-13 14:04] LABS: Bilirubin Urine NEGATIVE (NEGATIVE); Blood Urine SMALL (NEGATIVE); Clarity Urine CLOUDY (CLEAR); Glucose Urine UA NEGATIVE (NEGATIVE); Ketones Urine NEGATIVE (NEGATIVE); Leukocyte Esterase Urine LARGE (NEGATIVE); Nitrite Urine NEGATIVE (NEGATIVE); Protein Urine 30 mg/dL (NEG/TRACE); Specific Gravity Urine >=1.030 (1.005-1.025); Urobilinogen Urine 0.2 EU/dL (0.2-1.0)
[2024-06-13 14:06] LABS: Urine Microscopic Indicated YES
[2024-06-13 14:14] LABS: Color Urine YELLOW (YELLOW)
[2024-06-13 14:15] LABS: Bacteria Urine LARGE #/HPF (NONE SEEN); Mucus Urine NONE SEEN (NONE SEEN); Squamous Epithelial Cell Urine FEW #/LPF (NONE/RARE); WBC Urine >100 #/HPF (NONE SEEN)
[2024-06-13 14:16] LABS: Calcium Oxalate Crystals Urine RARE; Cast Seen? NONE SEEN #/LPF (NONE SEEN); Crystals Seen? Seen #/HPF (None Seen); Transitional Epi Cells Urine FEW #/LPF (NONE SEEN)
== END 2024-06-13 13:58 | disposition home or self-care (01) ==
LOC: LAB 13:57
PROVIDERS: PCP Nurse Practitioner; Visit Provider Nurse Practitioner
DX: R39.9 Unspecified symptoms and signs involving the genitourinary system (principal)
CPT/HCPCS: 81001; 87086; 87186

== ENCOUNTER 2024-07-10 13:54 | Outpatient (OUT) | payer MEDICARE, SELFPAY ==
[2024-07-10 14:18] LABS: Bilirubin Urine NEGATIVE (NEGATIVE); Blood Urine SMALL (NEGATIVE); Color Urine YELLOW (YELLOW); Glucose Urine UA NEGATIVE (NEGATIVE); Ketones Urine NEGATIVE (NEGATIVE); Leukocyte Esterase Urine LARGE (NEGATIVE); Nitrite Urine POSITIVE (NEGATIVE); Protein Urine TRACE mg/dL (NEG/TRACE); Specific Gravity Urine 1.015 (1.005-1.025); Urobilinogen Urine 0.2 EU/dL (0.2-1.0)
[2024-07-10 14:19] LABS: Clarity Urine CLOUDY (CLEAR); Urine Microscopic Indicated YES
[2024-07-10 14:30] LABS: WBC Urine >100 #/HPF (NONE SEEN)
[2024-07-10 14:31] LABS: Bacteria Urine LARGE #/HPF (NONE SEEN); Mucus Urine NONE SEEN (NONE SEEN); Squamous Epithelial Cell Urine FEW #/LPF (NONE/RARE)
[2024-07-10 14:32] LABS: Urine Culture Indicated ALREADY ORDERED
== END 2024-07-10 13:55 | disposition home or self-care (01) ==
LOC: LAB 13:55
PROVIDERS: PCP Nurse Practitioner; Visit Provider Nurse Practitioner
DX: R39.9 Unspecified symptoms and signs involving the genitourinary system (principal)
CPT/HCPCS: 81001; 87086; 87150

== ENCOUNTER 2024-08-07 11:42 | Observation (INO) | payer MEDICARE, SELFPAY ==
[2024-08-07] VITALS (17 sets, daily range): BP systolic 116–139; BP diastolic 66–77; PULSE 76–94; TEMP 36.7–37.1; O2SAT 93–97; BMI 21.9; BMI 22.3
--- NOTE | 2024-08-07 11:44 | XR_ITS ---
The [address] [address] Patient Name: NARCISO VELASQUEZ MRN: [id number] date: 1940 Sex: F Assigned Patient Location: ER Current Patient Location: ER Accession/Order Number: [id number] Exam Date: 08/07/2024 12:20 Report Date: 08/07/2024 12:39 At the request of: DELFINO GUPTA Procedure: XR chest 1V EXAMINATION: XR chest 1V HISTORY: sob COMPARISON: No relevant comparison available. FINDINGS: LUNGS: No significant pulmonary parenchymal abnormalities. VASCULATURE: No increased pulmonary vasculature. PLEURA: No pneumothorax, effusion, or pleural thickening. CARDIAC: No cardiomegaly or cardiac silhouette abnormality. MEDIASTINUM: No visible mass or adenopathy. BONES: No fracture or visible bone lesion. OTHER: Negative. XR/XR chest 1V IMPRESSION: 1. No acute cardiopulmonary process. 2. Mild chronic interstitial changes. Electronically authenticated by: JAYLEEN GREER Date: 08/07/2024 12:39
--- NOTE | 2024-08-07 11:44 | ECG_ITS ---
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
--- OUTSIDE RECORDS SUMMARY | 2024-08-07 12:06 | XMS_ITS | CCD ---
Author Organization [facility] Inform ion Partnership [facility] Care Team Providers Care Water Quality Tester Name Role Phone DONNA TURCIOS Unavailable Unavailable CARIE REINA Unavailable Unavailable Bean Cantu Primary Care Provider Puneet Raymundo Attending Provider [phone] Curtis Alcocer Attending Provider [phone] Pratik Tadeo Unavailable Unavailable Unavailable Giovanny, Aba Unavailable Carie Keith Unavailable Alyssa Weller Unavailable PRATIK TADEO Primary Care Physician Unavailable Unavailable MD Madhav Conrad Attending Provider [phone] Seema Sutherland Primary Care Provider Madhav Conrad Unavailable RODERICK KONG Attending Unavailable RODERICK KONG Admitting Unavailable RODERICK KONG Consulting Unavailable DR PRATIK TADEO Primary Care Unavailable GIOVANNY, ABA Attending Unavailable DR PRATIK TADEO Primary Care Unavailable GIOVANNY, ABA Consulting Unavailable GIOVANNY, ABA Admitting Unavailable GIOVANNY, ABA Attending Unavailable DR PRATIK TADEO Primary Care Unavailable GIOVANNY, ABA Consulting Unavailable GIOVANNY, ABA Admitting Unavailable AICHHOLUmer, ECOLOGIST SEEMA Consulting Unavailable DR PRATIK TADEO Primary Care Unavailable AICHHOLUmer, ECOLOGIST SEEMA Admitting Unavailable AICHHOLZ, ECOLOGIST SEEMA Attending Unavailable ZOEY, DR JAYLEEN Manzo Consulting Unavailable TURCIOS, DR DONNA Deleon Admitting Unavailable TURCIOS, DR DONNA Deleon Attending Unavailable TURCIOS, DR DONNA Deleon Consulting Unavailable AICHHOLZ, ECOLOGIST SEEMA Primary Care Unavailable AICHHOLZ, ECOLOGIST SEEMA Consulting Unavailable AICHHOLZ, ECOLOGIST SEEMA Primary Care Unavailable AICHHOLZ, ECOLOGIST SEEMA Admitting Unavailable AICHHOLZ, ECOLOGIST SEEMA Attending Unavailable AICHHOLZ, ECOLOGIST SEEMA Primary Care Unavailable GIOVANNY, ABA Attending Unavailable GIOVANNY, ABA Consulting Unavailable GIOVANNY, ABA Admitting Unavailable Aichholz, Seema J Primary Care Provider MD Curtis Alcocer Attending Provider Aicjeannie, Seema J Primary Care Unavailable Madhav Conrad Attending Unavailable Madhav Conrad Admitting Unavailable Aicjeannie, Seema J Primary Care Unavailable Curtis Alcocer Attending Unavailable Curtis Alcocer Admitting Unavailable Madhav Conrad Attending Unavailable Madhav Conrad Admitting Unavailable Aichponcho, Seema J Primary Care Unavailable Donna Turcios Attending Unavailable Donna Turcios Referring Unavailable Naderer, Dr. Pratik Welsh Primary Care UnaDonna Blanco Attending Unavailable Donna Turcios Referring Unavailable Naderer, Dr. Pratik Welsh Primary Care Unavai lable COOKMed P Attending Unavailable COOK, Med P Admitting [...] Referring Unavailable COOK, Med P Attending Unavailable AICHHOLZ, SEEMA Attending Unavailable BERNARD WAHL Attending Unavailable SERGIO VENTURA Attending Unavailable DONNA TURCIOS Attending Unavailable PRATIK TADEO Primary Care UnavailMLEISSA Shearer Attending Unavailable AICHHOLZ, SEEMA J Primary Care Unavailable JACK VIVEROS Attending Unavailable JACK VIVEROS Referring Unavailable AICHHOLZ, SEEMA J Primary Care Unavailable Allergies Allergy Classification Reported Allergen(s) Allergy Type Date of Onset Reaction(s) Facility Opioid Agonists (2 sources) Morphine Drug Allergy 1 Hallucinating [facility] (7 sources) Morphine Derivatives; Translations: [Morphine Derivatives] Allergy to drug (finding) Other -[facility] y 250 DO Work Phone: (11 sources) fesoterodine Drug Allergy 4 dizziness/light hearded [facility] (15 sources) Morphine; Translations: [MORPHINE] Drug Allergy 8 hallucinations, Hallucinating, Hallucinating, hallucinations [facility] (1 source) Morphine Drug Allergy [facility] (1 source) Morphine Drug Allergy 1 [facility] Medications Current Medications Medication Drug [...] 09, 2021 10:23am take 1 capsule by mo uth once daily Calcitriol 0.5 MCG TAKE 1 CAPSULE BY MOUTH ONCE DAILY for 90 Active take 1 capsule by mo uth once daily Calcitriol 0.25 MCG TAKE 1 [...] day(s), # 10 cap(s), Refills(s) 0, Pharmacy: [facility] [id number], 144, cm, 09/27/23 13:10:00 EST, Height/Length Dosing, 49, kg, 09/27/23 13:10:00 EST, Weight Dosing Start Date: 11/13/23 Stop Date: 11/18/23 Status: Ordered Start: 09-27-2023 take 1 capsule by mo uth twice daily Keflex 500 mg Cap 500 mg = 1 cap(s), Oral, BID, start one day prior to procedure., # 14 cap(s), Refills(s) 0, Pharmacy: [facility] [id number], 144, cm, 09/27/23 13:10:00 EST, Height/Length Dosing, 49, kg, 09/27/23 13:10:00 EST, Weight Dosing Start Date: 09/27/23 Status: Ordered Start: 08-16-2023 take 1 capsule by [facility] twice daily Keflex 500 mg Cap 500 mg = 1 cap(s), Oral, BID, # 14 cap(s), Refills(s) 0, Pharmacy: [facility] [id number], 144, cm, 08/16/23 10:03:00 EDT, Height/Length Dosing, 49, kg, 08/16/23 10:03:00 EDT, Weight Dosing Start Date: 08/16/23 Status: Ordered Start: 05-19-2022 End: 05-29-2022 take 1 capsule by mouth twice daily Keflex 500 mg Cap 500 mg = 1 cap(s), Oral, BID, X 10 day(s), # 20 cap(s), Refills(s) 0, Pharmacy: [facility] [id number], 144, cm, 05/19/22 14:08:00 EDT, Height/Length Dosing, 49, kg, 05/11/22 11:21:00 EDT, Weight Dosing Start Date: 05/19/22 Stop Date: 05/29/22 Status: Ordered Start: 05-11-2022 take 1 capsule by [facility] twice daily Keflex 500 mg Cap 500 mg = 1 cap(s), Oral, BID, Pt. to start 3 days prior to bladder botox injections, # 14 cap(s), Refills(s) 0, Pharmacy: [facility] [id number], 144, cm, 05/11/22 11:21:00 EDT, Height/Length Dosing, 49, kg, 05/11/22 11:21:00 EDT, Weight Dosing Start Date: 05/11/22 Status: Ordered ciprofloxacin 500 mg oral tablet (3 sources) Quinolone Antimicrobial Start: 11-13-2023 Cipro 500 mg Tab 500 mg = 1 tab(s), Oral, BID, Take twice daily x5 days starting the day prior to the procedure, # 10 tab(s), Refills(s) 0, Pharmacy: [facility] [id number], 144, cm, 09/27/23 13:10:00 EST, Height/Length Dosing, 49, kg, 09/27/23 13:10:00 EST, Weight Dosing Start Date: 11/13/23 Status: Ordered diclofenac sodium 0.01 mg/mg topical gel (11 sources) Nonsteroidal Anti-inflammatory Drug Start: 03-07-2024 Diclofenac Sodium (Voltaren Arthritis Pain) 1 % gel Active 2 GM TOPICAL As Directed March 07, 2024 12:00am Voltaren 1 % as directed Externally Active gabapentin 100 mg oral capsule (20 sources) Anti-epileptic Agent Start: 03-07-2024 take 300 mg by mouth twice daily Gabapentin Active 300 MG PO Twice daily March 07, 2024 11:46am Start: 02-17-2021 End: 03-07-2024 gabapentin 100 mg Cap Refill s(s) 0 Start Date: 05/05/21 Status: Ordered take 1 capsule by mo uth in the morning, then take 2 capsules [...] Pamoate Discontinued 25 MG PO Q6H 60 March 02, 2018 12:00am February 17, [...] Daily, # 30 tab(s), Refills(s) 11, Pharmacy: [facility] [id number], 144, cm, 08/16/23 10:03:00 EDT, Height/Length Dosing, 49, kg, 08/16/23 10:03:00 EDT, Weight Dosing Start Date: 08/16/23 Status: Ordered Start: 04-12-2023 take 0.5 g by mouth once daily methenamine hippurate 1 g oral tablet 0.5 gm = 0.5 tab(s), Oral, Daily Start Date: 04/12/23 Status: Ordered Start: 01-31-2022 take 1 tablet by [facility] once daily methenamine mandelate 0.5 g oral tablet 0.5 gm = 1 tab(s), Oral, Daily, # 90 tab(s), Refills(s) 3, Pharmacy: [id number], 144, cm, 12/27/21 11:31:00 EST, Height/Length Dosing, 49.1, kg, 12/27/21 11:31:00 EST, Weight Dosing Start Date: 01/31/22 Status: Ordered Multi Vitamin Daily - (4 sources) take 1 tablet by mouth once daily Multi Vitamin Daily - 1 tablet Orally Once a day Active Multi Vitamin+ (13 sources) Start: 05-05-20 21 Multi Vitamin+ Daily, Refill(s) 0 Start Date: [...] Daily Adults 50+ Active polyethylene glycol 3350 36944 mg powder for oral solution (5 sources) [...] 09, 2018 12:00am take 2 tablets by mo uth once daily Trihexyphenidyl HCl - 2 MG [...] Aspirin Discontinued 81 MG PO Twice daily March 10, 2021 12:00am March 07, 2024 [...] Episodic Coronary atherosclerosis and other heart disease (20 sources) Coronary arteriosclerosis; Translations: [Atherosclerotic heart disease of [place] coronary artery without angina pectoris] Onset: 03-24-2022 04-16-2018 Chronic Coronary atherosclerosis and other heart disease (13 sources) Past history of procedure; Translations: [Percutaneous transluminal coronary angioplasty status] Onset: 06-16-2022 03-08-2021 Episodic Deficiency and other anemia (5 sources) Anemia; Translations: [Anemia, unspecified] 04-16-2018 Episodic Disorders of lipid metabolism (16 sources) Hyperlipidemia; Translations: [Hyperlipidemia, unspecified] Onset: 03-24-2022 04-16-2018 Chronic E Codes: Fall (1 source) Fall Onset: 07-18-2024 Essential hypertension (7 sources) Hypertensive disorder; Translations: [Essential (primary) hypertension] Onset: 08-18-2023 04-16-2018 Chronic Fluid and electrolyte disorders (12 sources) Hypokalemia; Translations: [Hypokalemia] Onset: 03-23-2022 Resolved: 03-24-2022 Episodic Fracture of upper limb (1 source) Nondisplaced fracture of lateral end of right clavicle, initial encounter for closed fracture; Translations: [Nondisplaced fracture of lateral end of right clavicle, initial encounter for closed fracture] Onset: 07-18-2024 Episodic Gastritis and duodenitis (4 sources) Gastritis; [...] ; Translations: [History of fall] Episodic Other injuries and conditions due to external causes (1 source) Unspecified injury of head, initial encounter; Translations: [Unspecified injury of head, initial encounter] Onset: 07-18-2024 Episodic Other nervous system disorders (5 sources) [...] sources) Overweight; Translations: [Overweight] Episodic Parkinson's disease (3 sources) Parkinson's disease; Translations: [Parkinson's disease without dyskinesia, without mention of fluctuations (Multi)] Onset: 01-29-2018 Parkinson`s disease (8 sources) Parkinson's [...] codes; unclassified (1 source) Early satiety Episodic Residual codes; unclassified (2 sources) Body mass index (BMI) 22.0-22.9, adult; Translations: [Body mass index (BMI) 22.0-22.9, adult] Onset: 07-18-2024 Episodic Rheumatoid arthritis and related disease (9 sources) Rheumatoid arthritis; Translations: [Rheumatoid arthritis] Onset: 08-18-2023 Chronic Thyroid disorders (20 sources) Hypothyroidism; Translations: [Hypothyroidism, unspecified] Onset: 07-16-2022 04-16-2018 Chronic Unclassified (2 sources) Chest pain, unspecified / R07.9(ICD-9) Onset: 01-29-2018 Unclassified (1 source) Athscl heart disease of [place] coronary artery w/o ang pctrs / I25.10(ICD-9) [...] [Encounter for preprocedural laboratory examination] Onset: 07-29-2022 Unclassified (1 source) EMS Onset: 07-18-2024 Urinary tract infections (20 sources) Urinary tract [...] Resolved: 10-18-2021 Episodic Other aftercare (1 source) oil heaterman (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 of 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; Translations: [CRYPTOGRAPHIC CENTER SPECIALIST CURRENT 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 OF ASPIRIN] Onset: 03-24-2022 Episodic Other aftercare (1 source) Other retirement (current) drug therapy; Translations: [OTH CRYPTOGRAPHIC CENTER SPECIALIST CURRENT DRUG THERAPY] Onset: 03-24-2022 Episodic Other gastrointestinal disorders (1 source) Other constipation; Translations: [OTHER CONSTIPATION] Onset: 04-22-2022 Episodic Residual codes; unclassified (4 sources) Early satiety; Translations: [Early satiety] Onset: 08-02-2022 Episodic Unclassified (7 sources) Never smoked tobacco; Translations: [Never a smoker] Results Test Name Value Interpretation Reference Range Facility CT BRAIN WO CONTon CT BRAIN WO CONT CT BRAIN WO CONT CT BRAIN WO CONT: 07/18/2024 9:37 PM CLINICAL INFORMATION: Head trauma, minor (Age >= 65y); fall from standing TECHNIQUE: CT Head without intravenous contrast. Coronal sagittal reformatted images were also obtained. All CT scans at this facility use dose modulation, iterative reconstruction, and/or weight based dosing when appropriate to reduce radiation dose to as low as reasonably achievable. COMPARISON: No relevant prior studies available. FINDINGS: The ventricular system is normal in caliber. No large vessel territory infarct or acute intracranial hemorrhage. No extra-axial fluid collection. No midline shift. Colon-white matter differentiation is maintained. No effacement of the basal cisterns. The calvarium is intact. Opacification of the left maxillary sinus with new osteogenesis. 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 Finalized by Chloé Santo MD on 07/18/2024 10:01 PM Normal [facility] CT CERVICAL SPINE WO CONTon 07-18-2024 CT CERVICAL SPINE WO CONT CT CERVICAL SPINE WO CONT Noncontrast cervical spine CT on 07/18/2024 Provided history: Neck pain, fall Comparison: None Technique: Multiple contiguous 2.5 mm axial images of the cervical spine were obtained. Coronal and sagittal reconstructions were performed. Automated exposure control was utilized. Findings: Vertebral body height and alignment is maintained. Posterior elements are intact with normal alignment. Craniocervical junction is normally aligned. Multilevel degenerative disc disease with mild loss of disc height, endplate osteophytes and uncovertebral degeneration. Multilevel bilateral facet arthropathy. No prevertebral soft tissue swelling. No soft tissue hematoma. IMPRESSION: * No acute fracture or malalignment. All CT scans at this facility use dose modulation, iterative reconstruction, and/or weight based dosing when appropriate to reduce radiation dose to as low as reasonably achievable. Finalized by Alex Alfonso MD on 07/18/2024 10:01 PM Normal [facility] XR ELBOW RT MIN 3 VWSon 09- XR ELBOW RT MIN 3 VWS XR ELBOW RT MIN 3 VWS XR ELBOW RT MIN 3 VWS CLINICAL STATEMENT: 83 years old Female with fall and landed on right arm. COMPARISON: None. FINDINGS: No acute fracture or dislocation. Degenerative change throughout the elbow joint. No suspicious osseous lesion. Heavy atherosclerotic disease throughout the vessels of the arm. No radiopaque foreign body. IMPRESSION: * No acute osseous abnormality. * Chronic findings as above. Approved by Resident Aris Andres DO on 07/18/2024 10:02 PM Alex Haley MD have personally reviewed the image(s) and agree with and/or edited the report Finalized by Alex Alfonso MD on 07/18/2024 10:05 PM Normal [facility] XR SHOULDER RT MIN 2 VWSon 0 07-18-2024 XR SHOULDER RT MIN 2 VWS XR SHOULDER RT MIN 2 VWS HISTORY: Pain, fall COMPARISON: None FINDINGS: Multiple views of the right shoulder were obtained. Comminuted fracture of the distal clavicle. No dislocation. Inferior apex angulation. Degenerative change involving the acromioclavicular joint and visible portions of the spine. No focal soft tissue abnormality. IMPRESSION: * Comminuted fracture of distal clavicle without dislocation or malalignment. Finalized by Alex Alfonso MD on 07/18/2024 10:02 PM [facility] Lab Reportson 04-11-2024 Lab Reports [id number] F [facility] Ambulatory Visit Summaryon 0 04-10-2024 Ambulatory Visit Summary NARCISO VELASQUEZ :1940 Visit Date:04/10/2024 Ambulatory Visit Instructions Your Diagnosis Urge incontinence Incontinence without sensory awareness OAB (overactive bladder) Recurrent UTI Your Care Team Attending Physician - Med JENKINS MD Primary Care Physician - PRATIK TADEO [...] Appointments Monday 1:00 PM EST With: Med JENKINS MD Where: [facility] Patient Educationon 04-10-20 Patient Education Urology [...] nerve stimulation). ? For women, using a biomedical photographer to prevent urine leaks. This is a [...] urine. ? (more content not included)... Normal [facility] Urology Office/Clinic Noteon 04-10-2024 Urology Office/Clinic Note Chief Complaint follow up to botox HPI Staff 83 year old female here for [...] and history for this patient from Dr. Jenkins. I have reviewed and verified the staff [...] with voice recognition artificial intelligence software, specifically [employer]pol[employer], [employer] and or Mompery. Substitutions may have occurred due to the inherent limitations of voice recognition and artificial intelligence software. 1. Urge incontinence (N39.41: Urge incontinence) Botox 100 units 05/23/22 and 05/11/23 100 units. Botox 150 units 04/29/24. PVR 08/16/23 0 mL. PVR 04/10/24 32 [...] Information TRINA WATSON, Med Hilario, URL [address] [facility] [facility] [address]- Additional Instructions: 6 mos Patient Education Urinary Incontinence Jenny Haley, personally scribed for Dr. Jenkins on 04/10/2024 10:25:32. . Documentation recorded by the scribe, Jenny Luna, accurately reflects the services(s) I performed and decisions made by me. Authenticated by Dr. Jenkins on 04/10/2024 10:26:50. 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 [facility] Comment on above: Result Comment: Elec tronically Signed By: Med JENKINS MD\.br\Date and Time Signed: 04/10/24 10:27 EDT\.br\Electronically Co-Signed By: Jenny Luna\.br\Date and Time Co-Signed: 04/10/24 10:25 EDT Consent for Procedure/Surger yon 03-13-2024 Consent for Procedure/Surgery [id number]#[id number] F [facility] Consent for Procedure/Surgery [id number]#[id number] FF [facility] Erythrocyte distribution wid th Auto (RBC) [Ratio]on 02-27-2024 Erythrocyte distribution width (RBC) [Ratio] 13.0 % 11.0-15.0 [facility] Estimated glomerular filtrat ion rate (GFR) non- Americanon 02-27-2024 GFR/1.73 sq M.predicted among non-blacks MDRD (S/P/Bld) [Vol rate/Area] 57 mL/min/{1.73_m2} >=60 [facility] Hematocrit Auto (Bld) [Volum e fraction]on 02-27-2024 Hematocrit (Bld) [Volume fraction] 37.0 % 36.0-48.0 [facility] Hemoglobin [Mass/volume] in Bloodon 02-27-2024 Hemoglobin (Bld) [Mass/Vol] 12.1 g/dL 12.0-16.0 [facility] Laboratory - Chemistry and C hemistry - challengeon 02-27-2024 Albumin [Mass/Vol] 3.5 g/dL 3.4-5.0 [facility] Calcium [Mass/Vol] 9.3 mg/dL 8.5-10.1 [facility] Chloride [Moles/Vol] 104 mmol/L 98-107 [facility] CO2 [Moles/Vol] 29.1 mmol/L 21.0-32.0 [facility] Creatinine [Mass/Vol] 0.94 mg/dL 0.55-1.02 [facility] GFR/1.73 sq M.predicted MDRD (S/P/Bld) [Vol rate/Area] mL/min/{1.73_m2} >=60 [facility] Glucose [Mass/Vol] 126 mg/dL 74-106 [facility] Magnesium [Mass/Vol] 1.7 mg/dL 1.8-2.4 [facility] Potassium [Moles/Vol] 4.1 mmol/L 3.5-5.1 [facility] Sodium [Moles/Vol] 141 mmol/L 136-145 [facility] Urea nitrogen [Mass/Vol] 28.0 mg/dL 7.0-18.0 [facility] Urea nitrogen/Creatinine [Mass ratio] 29.8 mg/mg [facility] Leukocytes [#/volume] correc db for nucleated erythrocytes in Blood by Automated counon 02-27-2024 WBC corrected for nucl RBC Auto (Bld) [#/Vol] 9.9 10 3/uL 4.0-11.0 [facility] MCH Auto (RBC) [Entitic mass ]on 02-27-2024 MCH (RBC) [Entitic mass] 32.6 pg 26.7-34.0 [facility] MCHC Auto (RBC) [Mass/Vol]on 02-27-2024 MCHC (RBC) [Mass/Vol] 32.7 g/dL 29.9-35.2 [facility] MCV Auto (RBC) [Entitic vol] on 02-27-2024 MCV (RBC) [Entitic vol] 99.7 fL 81.0-99.0 [facility] No Panel Informationon 02-26 25-Hydroxy Vitamin D Total 34.4 ng/mL [facility] Comment on above: <20 ng/mL Vit D defi cient20-<30 ng/mL Vit D [id number] ng/mL Vit D sufficient>100 ng/mL Potential Toxicity Parathyroid Hormone (Intact) 3 pg/mL 15-65 [facility] Comment on above: Performed at: [employer] [address] [id number] Director: Conrado Gates PhD, Phone: [phone] Phosphorus Level 3.6 mg/dL 2.6-4.7 [facility] Platelet mean volume Auto (B ld) [Entitic vol]on 02-27-2024 Platelet mean volume (Bld) [Entitic vol] 9.4 fL 9.5-13.5 [facility] Platelets Auto (Bld) [#/Vol] on 02-27-2024 Platelets (Bld) [#/Vol] 196 10 3/uL 150-450 [facility] RBC Auto (Bld) [#/Vol]on RBC (Bld) [#/Vol] 3.71 10 6/uL 4.20-5.40 [facility] Serum or plasma anion gap de terminationon 02-27-2024 Anion gap [Moles/Vol] 12.0 mmol/L [facility] Consent for Treatmenton 01-29 Consent for Treatment [id number]#[id number] FF Normal [facility] Inpatient Patient Summaryon 02-26-2024 Inpatient Patient Summary [place] [id number] Clinical Summary Person Information Name: NARCISO VELASQUEZ Age: 83 Years : 1940 Sex: Female PCP: PRATIK TADEO MD Marital Status: Race: White Ethnicity: Non- or Language: Malay Visit Id: Visit Reason: URINARY INCONTINENCE Speciality: Acuity: Enc Type: Outpatient Med Service: Surgery Arrival: 02/26/2024 12:39:14 Discharge: Dispo Type: Address: [address] [place] [id number] Provider Notes: Diagnosis: Problems Active Incontinence without sensory awareness Recurrent UTI Incomplete bladder emptying Stress incontinence UTI (urinary tract infection) Urinary retention UTI symptoms Overactive bladder Aspirin long-term use Weak urine stream Weak urinary stream 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 Patient Education Information: EU - Cystoscopy with Botox Injection Discharge Instructions (Custom) [facility] IntraOperative Documentson 0 02-26-2024 IntraOperative Documents [id number] FF [facility] Main OR Intraoperative Recor don 02-26-2024 Main OR Intraoperative Record IntraOp Document Type FTURO Summary Primary Physician: Med JENKINS MD Finalized Date/Time: 02/26/24 13:43:34 Pt. Name: RONNARCISO/Sex: 1940 Female Med Rec #: [id number] Physician: Med JENKINS MD Financial #: [id number] Pt. Type: O Room/Bed: / Admit/Disch: 02/26/24 12:39:14 - Institution: Case Times FTURO Entry 1 Patient Times In Room 02/26/24 13:30:00 Out Room 02/26/24 13:51:00 Procedure Times Start 02/26/24 13:33:00 Stop 02/26/24 13:46:00 Anesthesia Times Last Modified By: Sabrina PETERS, JASPREET, Patricia 02/26/24 13:43:23 Case Attendance FTURO Entry 1 Entry 2 Entry 3 Case Attendee Med JENKINS MD, RN, MEEOR, Krishna Moctezuma Role Performed Surgeon - Primary Adult Protective Caseworker - Primary Scrub - Primary Time In 02/26/24 13:30:00 02/26/24 13:30:00 02/26/24 13:30:00 Time Out 02/26/24 13:51:00 02/26/24 13:51:00 02/26/24 13:51:00 Procedure CYSTOSCOPY LOCAL BOTOX CYSTOSCOPY LOCAL BOTOX CYSTOSCOPY LOCAL BOTOX INJECTION(.) INJECTION(.) INJECTION(.) Comments Last Modified By: Sabrina PETERS, MEEOR, Sabrina PETERS, MEEOR, Sabrina PETERS, JASPREET, Patricia 02/26/24 Patricia 02/26/24 Patricia 02/26/24 13:43:24 13:43:24 13:43:24 Surgical Procedures FTURO Entry 1 Procedure Description Procedure CYSTOSCOPY LOCAL BOTOX Modifiers . INJECTION Surgeon Description CYSTO 150 UNITS BOTOX Primary Procedure Yes Primary Surgeon Med JENKINS MD Start 02/26/24 13:33:00 Stop 02/26/24 13:46:00 Anesthesia Type Local Surgical Service Urology Wound Class 2 - Clean-Contaminated Last Modified By: JASPREET Bennett RN, Ruthann 02/26/24 13:43:25 General Comments: botox 100 units out date03/24 lot [id number] botox 50 units outdate 12/25 lot [id number] General Case Data FTURO Pre-Care Text: Classifies [...] Position Verified Availability Equipment, Medication Time Out MEE Bennett RNOR, Verified (If Participants TRINA Gomez MD, Applicable) [...] JASPREET Bennett RN, Ruthann 02/26/24 13:43 Normal [facility] Main OR Preoperative Recordo n 02-26-2024 Main OR Preoperative Record Holding Area Document Type FTURO Summary Primary Physician: Med JENKINS MD Finalized Date/Time: 02/26/24 13:13:19 Pt. Name: NARCISO VELASQUEZ Derrick Tellez./Sex: 1940 Female Med Rec #: [id number] Physician: Med JENKINS MD Financial #: [id number] Pt. Type: O Room/Bed: / Admit/Disch: 02/26/24 [...] By: Dorie Logan RN 02/26/24 13:13 Normal [facility] Operative Reporton Operative Report Patient: STEPHANIA VELASQUEZ Age: 83 years Sex: Female : 1940 Associated Diagnoses: None Author: Med JENKINS MD Procedure Operative Information Details: Date/ Time: 02/26/2024 13:46:00. Pre-Op Dx: Overactive bladder (DRQ95-BM N32.81, Working, Medical), Urgency incontinence (CQQ07-SQ N39.41, Working, Medical). Post-Op Dx: Same. Anesthesia [...] Follow up arranged, F/U six weeks. Normal [facility] Comment on above: Result Comment: Elec tronically Signed By: Med JENKINS MD\.br\Date and Time Signed: 02/26/24 13:51 EDT Outpatient Surgery Discharge Instructionon 02-26-2024 Outpatient Surgery Discharge Instruction [id number] FF Normal [facility] Outpatient Surgery Discharge Instruction [place] [id number] Patient Discharge Instructions PERSON INFORMATION Name: NARCISO VELASQUEZ Date of : 1940 Current Date: 02/26/2024 13:46:21 PHYSICIANS Admitting Physician: Med JENKINS MD Comment: Discharge Diagnosis: NARCISO VELASQUEZ has been given the following list of follow-up instructions, prescriptions, and patient education materials: IF UNABLE TO CONTACT YOUR PHYSICIAN AND YOU FEEL IT IS AN EMERGENCY, GO TO THE NEAREST EMERGENCY ROOM OR CALL 911 Follow up: With: Address: When: Mde JENKINS [address] [place] [address], [address], [place] [phone] [facility] (1) Within 6 weeks Comments: Call for [...] Date You may receive a survey from [employer] asking you to rate your care experience. Your feedback is important and will help us understand what we do well and how we can improve the quality of care we provide to you, your loved ones and our community. It?s an honor to serve you. Thank you for choosing [facility] Normal [facility] C Urineon 11-16-2023 Bacteria identified Cx Nom (U) Microbiology PROCEDURE: Urine Culture [R1] SOURCE: U CleanCatch BODY SITE: COLLECTED DATE/TIME: 11/13/2023 14:51 EST RECEIVED DATE/TIME: 11/14/2023 17:50 EST START DATE/TIME: 11/14/2023 17:51 EST FREE TEXT SOURCE: TRINA WATSON, Med JENKINS MD, Med Hilario FINAL REPORTS Final Report [] Verified Date/Time: 11/16/2023 06:55 EST 3,000 cfu/ml Mixed skin contaminants Performing Locations R1: This test was performed at: [facility], [address] [place] [address], [facility] , , [facility] Comment on above: Performed By: #### 2 [id number] ####[place] [address] Consent for Treatmenton 10-30 Consent for Treatment [id number] F Normal [facility] Inpatient Patient Summaryon 11-13-2023 Inpatient Patient Summary [address] [address] Clinical Summary Person Information Name: NARCISO VELASQUEZ Age: 82 Years : 1940 Sex: Female PCP: PRATIK TADEO MD Marital Status: Race: White Ethnicity: Non- or Language: Malay Visit Id: Visit Reason: URINARY INCONTINENCE Speciality: Acuity: Enc Type: Outpatient Med Service: Surgery Arrival: 11/13/2023 13:31:33 Discharge: Dispo Type: Address: [address] [place] [address] [phone] Provider Notes: Diagnosis: Problems Active Incontinence without sensory awareness Recurrent UTI Incomplete bladder emptying Stress incontinence UTI (urinary tract infection) Urinary retention UTI symptoms Overactive bladder Aspirin long-term use Weak urine stream Weak urinary stream Hx of retirement 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 thinners Mixed incontinence Frequency [...] Tab) Care Team Members: Attending Physician: Med JENKINS MD Consulting Physician: Referring Physician: Med JENKINS MD Follow up: With: Address: When: Med JENKINS [address] [facility], [address], [place] [phone] Business (1) Comments: As you know we [...] locally and the cranberry is self-explanatory. My supervisor leaf spring fabrication will call you to get you back on the books for the Botox injection. Patient Education Information: Franca [facility] Main OR Preoperative Recordo n 11-13-2023 Main OR Preoperative Record Holding Area Document Type FTURO Summary Primary Physician: Finalized Date/Time: 11/13/23 16:40:45 Pt. Name: NARCISO VELASQUEZ Derrick Alicea/Sex: 1940 Female Med Rec #: [id number] Physician: Med JENKINS MD Financial #: [id number] Pt. Type: O Room/Bed: / Admit/Disch: 11/13/23 [...] Collected RN Reviewed Yes Last Modified By: Sabrina PETERS, Patricia VOGEL 11/13/23 14:41:43 General Comments: case canceled after Dr reviewed the urine testing results. patient also had a fast heart beat, talked with patient and her and he said they would call her food mobile driver right away shashank. Finalized By: JASPREET Bennett RN, Ruthann Document Signatures Signed By: JASPREET Bennett RN, Ruthann 11/13/23 14:43 JASPREET Bennett RN, Ruthann 11/13/23 14:43 JASPREET Bennett RN, Ruthann 11/13/23 16:40 Normal [facility] Outpatient Surgery Discharge Instructionon 11-13-2023 Outpatient Surgery Discharge Instruction [address] [address] Patient Discharge Instructions PERSON INFORMATION Name: NARCISO VELASQUEZ Date of : 1940 Current Date: 11/13/2023 14:47:25 PHYSICIANS Admitting Physician: Med JENKINS MD Comment: Discharge Diagnosis: NARCISO VELASQUEZ has been given the following list of follow-up instructions, prescriptions, and patient education materials: IF UNABLE TO CONTACT YOUR PHYSICIAN AND YOU FEEL IT IS AN EMERGENCY, GO TO THE NEAREST EMERGENCY ROOM OR CALL 911 Follow up: With: Address: When: Med JENKINS [address] [place] [address], [address], [place] [phone] Business (1) Comments: As you know we [...] locally and the cranberry is self-explanatory. My supervisor leaf spring fabrication will call you to get you back on the books for the Botox injection. Comment: PATIENT EDUCATION INFORMATION Instructions: I, NARCISO VELASQUEZ, have received the attached patient education materials/instructions and have verbalized understanding: May we do a follow up call? Yes No I was present when discharge instructions were given Patient Signature Date Clinican/Nurse Signature Date You may receive a survey from [employer] asking you to rate your care experience. Your feedback is important and will help us understand what we do well and how we can improve the quality of care we provide to you, your loved ones and our community. It?s an honor to serve you. Thank you for choosing [facility] Normal [facility] Patient Educationon 11-13-19 Patient Education Normal [facility] Progress Note-Physicianon Progress Note-Physician Patient: NARCISO VELASQUEZ Age: 82 years Sex: Female : 1940 Associated Diagnoses: None Author: TRINA WATSON, Med Gomez ROS & PFSH Reviewed I have reviewed [...] procedure., # 14 cap(s), Refills(s) 0, Pharmacy: [facility] [id number], 144, cm, 09/27/23 13:10:00 EST, Height/Length Dosing, [...] All Problems Kidney stone / SNOMED CT 625714467 / Confirmed Incontinence without sensory awareness / SNOMED CT 0319264448 / Confirmed Weak urinary stream / SNOMED CT 6036236834 / Confirmed Urge incontinence of urine / SNOMED CT 030346878 / Confirmed Flank pain / SNOMED CT 315496845 / Confirmed Myocardial infarction / SNOMED CT 58086753 / Confirmed Nocturia / SNOMED CT 207756627 / Confirmed Urinary urgency / SNOMED CT 237648453 / Confirmed 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 / SNOMED CT 031867284 / Confirmed Urgency of urination / SNOMED CT 871735585 / Confirmed Urge incontinence / SNOMED CT 557212262 / Confirmed Dysuria / SNOMED CT 97740094 / Confirmed Asymptomatic microscopic hematuria / SNOMED CT 0745950818 / Confirmed Mixed incontinence / SNOMED CT 00670711 / Confirmed Frequency of urination / SNOMED CT 009363185 / Confirmed Weak urine stream / SNOMED CT 566907757 / Confirmed OAB (overactive bladder) / SNOMED CT 6772289049 / Confirmed Aspirin long-term use / SNOMED CT 6300465350 / Confirmed Overactive bladder / SNOMED CT 8208818274 / Confirmed UTI symptoms / SNOMED CT 014952336 / Confirmed Urinary retention / SNOMED CT 361580763 / Confirmed UTI (urinary tract infection) / SNOMED CT 024451881 / Confirmed Stress incontinence / SNOMED CT 159111429 / Confirmed Incomplete bladder emptying / SNOMED CT 211136399 / Confirmed Recurrent UTI / SNOMED CT 342877745 / Confirmed Incontinence without sensory awareness / SNOMED CT 8051933295 / Confirmed, Active Problems (26) Aspirin long-term use Asymptomatic microscopic hematuria Dysuria Flank pain Frequency of urination 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 Additional Plan of Care and/or Course of Treatment: Additional Plan of Care and/or Course of Treatment: Discussed extensively with the patient and her . Due to the presence of what appears to be an active urinary tract infection, have to cancel the B (more content not included)... Normal [facility] Comment on above: Result Comment: Elec tronically Signed By: Med JENKINS MD\.br\Date and Time Signed: 11/13/23 14:46 EST Ambulatory Visit Summaryon 1 11-27-2022 Ambulatory Visit Summary NARCISO VELASQUEZ :1940 Visit Date:09/27/2023 Ambulatory Visit Instructions Your Diagnosis Urge incontinence Incontinence without sensory awareness OAB (overactive bladder) Recurrent UTI Tests Performed Urnls Dip Stick Auto w/o Microscopy POC 15843 Your Care Team Attending Physician - Med JENKINS MD Primary Care Physician - PRATIK TADEO [...] Follow-Up Appointments Monday 9:45 AM EST Where: [facility] Monday 2:45 PM EST Where: [facility] You Need to Schedule the Following Appointments Follow Up with COOK MD, Med P, URL When: Where: [address] [address]- Medications What How Much When Instructions Changed cephalexin (Keflex 500 mg Cap) 1 Capsules By Mouth 2 times a day start one day prior to procedure. Pickup at [facility] [id number] Unchanged acetaminophen Contact prescribing physician if questions [...] physician if questions or concerns Pharmacy Information [facility] [id number]: [address] [place], [place] [phone] What How Much When Comments Stop Taking methenamine (methenamine hippurate 1 g oral tablet) 0.5 Tablets By Mouth Every day Test Results Urnls Dip Stick Auto w/o Microscopy POC 55680 (09/27/2023) POC Test Comments - Pt. was not able to urinate Allergies No Known Allergies Problems Ongoing - Any problem that you are currently receiving treatment for. 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 Normal [facility] Patient Educationon 09-27-20 23 Patient Education Urology [...] nerve stimulation). ? For women, using a biomedical photographer to prevent urine leaks. This is a [...] urine. ? (more content not included)... Normal [facility] Urology Office/Clinic Noteon 09-27-2023 Urology Office/Clinic Note [...] and history for this patient from Dr. Jenkins. I have reviewed and verified the staff [...] with voice recognition artificial intelligence software, specifically TalkApolis, Power[employer]ix and or Mompery. Substitutions may have occurred due to the [...] UTI frequency. Follow-up With When Contact Information Med JENKINS MD, URL [address] [place], [place] [phone]- Additional Instructions: Schedule botox 150 units Patient Education Urinary Incontinence IJenny, personally scribed for Dr. Jenkins on 09/27/2023 13:17:45. . Documentation recorded by the scribe, Jenny Luna, accurately reflects the services(s) I performed and decisions made by me. Authenticated by Dr. Jenkins on 09/27/2023 13:21:04. Problem List/Past Medical History Ongoing Aspirin l (more content not included)... Normal [facility] Comment on above: Result Comment: Elec tronically Signed By: Med JENKINS MD\.br\Date and Time Signed: 09/27/23 13:22 EST\.br\Electronically Co-Signed By: Jenny Luna\.br\Date and Time Co-Signed: 09/27/23 13:18 EST C Urineon 08-18-2023 Bacteria identified Cx Nom (U) Microbiology PROCEDURE: Urine Culture [R1] SOURCE: U CleanCatch BODY SITE: COLLECTED DATE/TIME: 08/16/2023 11:52 EDT RECEIVED DATE/TIME: 08/16/2023 13:45 EDT START DATE/TIME: 08/16/2023 13:46 EDT FREE TEXT SOURCE: TRINA WATSON, Med JENKINS MD, Med Hilario FINAL REPORTS Final Report [...] Locations R1: This test was performed at: [facility], [address] [place] [address], [address] , , [facility] Comment on above: Performed By: #### 2 [id number] #### [facility] [address] [place] [address] Ambulatory Visit Summaryon 1 Ambulatory Visit Summary NARCISO VELASQUEZ :1940 Visit Date:08/16/2023 Ambulatory Visit Instructions Your Diagnosis Urge incontinence OAB (overactive bladder) Recurrent UTI Tests Performed Urnls Dip Stick Auto w/o Microscopy POC 38838 Your Care Team Attending Physician - Med JENKINS MD Primary Care Physician - PRATIK TADEO MD Referring Physician - Med JENKINS MD This Is Your Medications List cephalexin [...] Appointments Monday 1:00 PM EST With: Med JENKINS MD Where: [facility] Patient Educationon 10-18-20 23 Patient Education Obstetrics and Gynecology Urinary [...] this condition includes: ? Antibiotic medicine. ? Vcca-sle-phgwnmj medicines to treat discomfort. ? Drinking enough [...] these instructions at home: Medicines ? Take emyq-fbl-wywiugm and prescription medicines only as told by [...] health care provider. Document Revised: 05/28/2021 Document Revpérez (more content not included)... Normal [facility] Urology Office/Clinic Noteon 08-16-2023 Urology Office/Clinic Note [...] and history for this patient from Dr. Jenkins. I have reviewed and verified the staff [...] with voice recognition artificial intelligence software, specifically TalkApolis, PowerGenix and or Mompery. Substitutions may have occurred due to the [...] at next visit -Check with [facility] [place] regarding incontinence supplies 1a. Current UTI. 2. [...] With When Contact Information TRINA WATSON, Med P, URL [address] [address]- Additional Instructions: 6 wks since starting Methenamine Patient Education Urinary Tract Infection, Adult IJenny, personally scribed for Dr. Jenkins on 08/16/2023 10:28:08. . Documentation recorded by the scribJenny baptiste, accurately reflects the services(s) I performed and decisions made by me. Authenticated by Dr. Jenkins on 08/16/2023 10:30:11. Problem List/Past Medical History Ongoing Aspirin long-term use Asymptomatic microscopic hematuria Dysuria Flank pain Frequency of urination Hx of retirement 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 thinners Incomplete bladder emptying Incontinence without sensory awareness Kidney stone Mixed incontinence Myocardial infarction Nocturia OAB (overactive bladder) Overactive bladder Recurrent UTI Stress incontinence Urge incontinence Urge incontinence of urine Urgency of urin (more content not included)... Normal [facility] Comment on above: Result Comment: Elec tronically Signed By: Med JENKINS MD\.br\Date and Time Signed: 08/16/23 10:31 EDT\.br\Electronically Co-Signed By: Jenny Luna\.br\Date and Time Co-Signed: 08/16/23 10:28 EDT Office [...] followed by rheumatology locally, currently stable Donna Turcios MD, [facility] Surgical History Problems History of Angioplasty [...] negative for complaint. Vitals Vital Signs Recorded: 41Tni1877 10:40AM Heart Rate60, L Radial Zukoczok989, LUE, Sitting Tfoxdtjtd38, LUE, Sitting Height4 ft 10 in Nvbugu470 lb BMI Liweytcrcp34.11 kg/m2 BSA Calculated1.36 Tobacco Useb) No Falls [...] . Signatures Electronically signed by : Donna Turcios MD; Jul 20 2023 12:36PM EST (Author) Normal [employer] Tobacco Screening.on 023 Fall risk assessment a) No falls within the last year [facility] y 250 DO Work Phone: Tobacco use status CP b) No [facility] y 250 DO Work Phone: XR calcaneus BIon 07-05-2023 XR calcaneus BI [facility] Main [place] [address] [place] [address] XRay Report Signed Patient: Narciso Velasquez MR#: [id number] : 1940 Acct:[id number] Age/Sex: 82 / F ADM Date: 07/05/23 Loc: ICXD Room: Type: [facility] Attending Dr: Curtis Alcocer MD Copies to: Curtis Alcocer MD Ordering Provider: Curtis Alcocer MD Date of Service: 07/05/23 XR/XR foot BI 2V: BENJIE HEAL/FOOT PAIN ([id number]) XR/XR calcaneus BI: FOOT/HEAL PAIN CLINICAL DATA: [...] Zuly Leon M.D.07/05/2023 5:55 PM Dictation Location: [place] [address] Transcribed By: [facility] 07/05/231754 Dictated By: Zuly Leon MD 07/05/231752 Signed By: 07/05/231754 [facility] Lab Reportson 06-12-2023 Lab Reports [id number]: 127 Normal [facility] Lab Reports [id number]: 127 Normal [facility] Lab Reports [id number]#1.00CD: 127 Normal [facility] Lab Reportson 06-10-2023 Lab Reports [id number]: 127 Normal [facility] Consent for Procedure/Surger yon 05-11-2023 Consent for Procedure/Surgery [id number] :127 Normal [facility] Consent for Treatmenton 04-29 Consent for Treatment [id number]: 127 Normal [facility] Inpatient Patient Summaryon 05-11-2023 Inpatient Patient Summary [place] [address] Clinical Summary Person Information Name: NARCISO VELASQUEZ Age: 82 Years : 1940 Sex: Female PCP: PRATIK TADEO MD Marital Status: Race: White Ethnicity: Non- or Language: Malay Visit Id: Visit Reason: URINERY INCONTINENCE Speciality: Acuity: Enc Type: Outpatient Med Service: Surgery Arrival: 05/11/2023 07:16:35 Discharge: Dispo Type: Address: [address] [place] [phone] Provider Notes: Diagnosis: Problems Active Incomplete bladder emptying Stress incontinence UTI (urinary tract infection) Urinary retention UTI symptoms Overactive bladder Aspirin long-term use Weak urine stream Weak urinary stream 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 (1) Within 3 months Comments: Call for followup appointment, with bladder scan checking for residual urine at that visit. Patient Education Information: EU - Cystoscopy with Botox Injection Discharge Instructions (Custom) [facility] IntraOperative Documentson 0 05-11-2023 IntraOperative Documents [id number] :127 [facility] Main OR Intraoperative Recor don 05-11-2023 Main OR Intraoperative Record IntraOp Document Type FTURO Summary Primary Physician: Med JENKINS MD Finalized Date/Time: 05/11/23 08:07:27 Pt. Name: NARCISO VELASQUEZ/Sex: 1940 Female Med Rec #: [id number] Physician: Med JENKINS MD Financial #: [id number] Pt. Type: O Room/Bed: / Admit/Disch: 05/11/23 07:16:35 - Institution: Case Times FTURO Entry 1 Patient Times In Room 05/11/23 07:54:00 Out Room 05/11/23 08:04:00 Procedure Times Start 05/11/23 07:56:00 Stop 05/11/23 08:01:00 Anesthesia Times Last Modified By: Heather Randhawa 05/11/23 08:07:10 Case Attendance FTURO Entry 1 Entry 2 Entry 3 Case Attendee TRINA WATSON, Heather Tafoya Kendall R Role Performed Surgeon - Primary Adult Protective Caseworker - Primary Scrub - Primary Time In [...] UNITS Primary Procedure Yes Primary Surgeon Med JENKINS MD 05/11/23 07:56:00 Stop 05/11/23 08:01:00 Anesthesia Type Local Surgical Service Urology Wound Class 2 - Clean-Contaminated Last Modified By: Heather Randhawa 05/11/23 08:07:16 General Comments: botox 100 units, lot: [id number] exp: General Case Data FTURO Pre-Care Text: [...] Verified Availability Equipment, Medication Time Out Med JENKINS MD, Verified (If Participants Heather Randhawa, Applicable) [...] 05/11/23 08:07 Heather Randhawa 05/11/23 08:07 Normal [facility] Main OR Preoperative Recordo n 05-11-2023 Main OR Preoperative Record Holding Area Document Type FTURO Summary Primary Physician: Med JENKINS MD Finalized Date/Time: 05/11/23 07:53:38 Pt. Name: RONNARCISO./Sex: 1940 Female Med Rec #: [id number] Physician: Med JENKINS MD Financial #: [id number] Pt. Type: O Room/Bed: / Admit/Disch: 05/11/23 [...] 07:36 Dorie Logan RN 05/11/23 07:53 Normal [facility] Operative Reporton 3 Operative Report Patient: STEPHANIA VELASQUEZ Age: 82 years Sex: Female : 1940 Associated Diagnoses: None Author: Med JENKINS MD Procedure Operative Information Details: Date/ Time: [...] months with bladder scan PVR. . Normal [facility] Comment on above: Result Comment: Elec tronically Signed By: Med JENKINS MD\.br\Date and Time Signed: 05/11/23 08:03 EDT Outpatient Surgery Discharge Instructionon 05-11-2023 Outpatient Surgery Discharge Instruction [place] [id number] Patient Discharge Instructions PERSON INFORMATION Name: NARCISO VELASQUEZ Date of : 1940 Current Date: 05/11/2023 08:02:33 PHYSICIANS Admitting Physician: Med JENKINS MD Comment: Discharge Diagnosis: NARCISO VELASQUEZ has been given the following list of follow-up instructions, prescriptions, and patient education materials: IF UNABLE TO CONTACT YOUR PHYSICIAN AND YOU FEEL IT IS AN EMERGENCY, GO TO THE NEAREST EMERGENCY ROOM OR CALL 911 Follow up: With: Address: When: Med Diaz [facility] [facility], [address], [facility] [address] [id number] [facility] (1) Within 3 months Comments: Call for [...] Date You may receive a survey from [employer] asking you to rate your care experience. Your feedback is important and will help us understand what we do well and how we can improve the quality of care we provide to you, your loved ones and our community. It?s an honor to serve you. Thank you for choosing [facility] Normal [facility] Office Visit (Cardiology)on 01-12-2023 Follow-up visit [...] Metabolic Panel; Status:Active - Retrospective Authorization; Requested for:[id number]; Complete Blood Count; Status:Active - Retrospective Authorization; Requested for:[id number]; Atherosclerosis of coronary artery, Hyperlipidemia ALT - Alanine Aminotransferase, Serum; Status:Active - Retrospective Authorization; Requested for:10Jul2023; AST; Status:Active - Retrospective Authorization; Requested for:10Jul2023; Lipid Panel; Status:Active - Retrospective Authorization; Requested for:[id number]; SocHx: Never a smoker Tobacco Use Screening; [...] followed by rheumatology locally, currently stable Donna Turcios MD, [facility] Surgical History Problems History of Angioplasty [...] Recorded: 12Jan2023 11:13AM Heart Rate88, L Radial Nedowwwj307, LUE, Sitting Hiiqmpszk63, LUE, Sitting Height4 ft 10 in Xxnkmg307 lb BMI Qfxjrnkwis66.95 kg/m2 BSA Calculated1.38 Tobacco Useb) No PHQ-2 [...] . Pulmo (more content not included)... Normal [employer] Tobacco Screening.on 023 Adult depression screening assessment No [facility] Work Phone: Fall risk assessment a) No falls within the last year [facility] Work Phone: Tobacco use status CP b) No [facility] DO Work Phone: PTH INTACTon 11-30-2022 PTH, Intact 3 pg/mL Critically low 15-65 [facility] Comment on above: Performed By: #### MG TC #### [facility] [address] [place] [address] Dr. Emilie Jeronimo HEMOGRAM AND PLATELon 2022 Hematocrit (Bld) [Volume fraction] 38.0 % Normal 36.0-48.0 [facility] Comment on above: Performed By: #### MG TC #### [facility] [address] [place] [address] Dr. Emilie Jeronimo Hemoglobin (Bld) [Mass/Vol] 12.9 g/dL Normal 12.0-16.0 [facility] Comment on above: Performed By: #### R ENAL, MG #### [facility] [address] [place] [address] Dr. Emilie Jeronimo MCH (RBC) [Entitic mass] 32.5 pg Normal 26.7-34.0 [facility] Comment on above: Performed By: #### R ENAL, MG #### [facility] [address] [place] [address] Dr. Emilie Jeronimo MCHC (RBC) [Mass/Vol] 33.9 g/dL Normal 29.9-35.2 [facility] Comment on above: Performed By: #### R ENAL, MG #### [facility] [address] [place] [address] Dr. Emilie Jeronimo MCV (RBC) [Entitic vol] 95.7 fL Normal 81.0-99.0 [facility] Comment on above: Performed By: #### R ENAL, MG #### [facility] [address] [place] [address] Dr. Emilie Jeronimo PLT 214 103/ul Normal 150-450 [facility] Comment on above: Performed By: #### R ENAL, MG #### [facility] [address] [place] [address] Dr. Emilie Jeronimo RBC 3.97 106/ul Critically low 4.20-5.40 [facility] Comment on above: Performed By: #### R ENAL, MG #### [facility] [address] [place] [address] Dr. Emilie Jeronimo WBC 7.7 103/ul Normal 4.0-11.0 [facility] Comment on above: Performed By: #### R ENAL, MG #### [facility] [address] [place] [address] Dr. Emilie Jeronimo MAGNESIUMon 11-29-2022 Magnesium [Mass/Vol] 1.3 mg/dL Critically low 1.8-2.4 [facility] Comment on above: Performed By: #### R ZEESHAN, MG #### [facility] [address] [place] [address] Dr. Emilie Jeronimo RENAL FUNCTION PANELon 11-29 Albumin [Mass/Vol] 3.6 g/dL Normal 3.4-5.0 [facility] Comment on above: Performed By: #### R ENMICHELLE, MG #### [facility] [address] [place] [address] Dr. Emilie Jeronimo Calcium [Mass/Vol] 9.4 mg/dL Normal 8.5-10.1 [facility] Comment on above: Performed By: #### R ENMICHELLE, MG #### [facility] [address] [place] [address] Dr. Emilie Jeronimo Chloride [Moles/Vol] 103 mmol/L Normal 98-107 [facility] Comment on above: Performed By: #### R ENMICHELLE, MG #### [facility] [address] [place] [address] Dr. Emilie Jeronimo CO2 [Moles/Vol] 32.5 mmol/L Critically high 21.0-32.0 [facility] Comment on above: Performed By: #### R ENMICHELLE, MG #### [facility] [address] [place] [address] Dr. Emilie Jeronimo Creatinine [Mass/Vol] 0.79 mg/dL Normal 0.55-1.02 [facility] Comment on above: Performed By: #### R ENMICHELLE, MG #### [facility] [address] [place] [address] Dr. Emilie Jeronimo EGFR-AF BURKINAN >60 Normal >=60 [facility] Comment on above: Performed By: #### R ENMICHELLE, MG #### [facility] [address] [place] [address] Dr. Emilie Jeronimo EGFR-NON AF BURKINAN >60 Normal >=60 [facility] Comment on above: Performed By: #### R ENMICHELLE, MG #### [facility] [address] [place] [address] Dr. Emilie Jeronimo Glucose [Mass/Vol] 95 mg/dL Normal 74-106 [facility] Comment on above: Performed By: #### R ENMICHELLE, MG #### [facility] [address] [place] [address] Dr. Emilie Jeronimo Phosphate [Mass/Vol] 4.0 mg/dL Normal 2.6-4.7 [facility] Comment on above: Performed By: #### R ENMICHELLE, MG #### [facility] [address] [place] [address] Dr. Emilie Jeronimo Potassium [Moles/Vol] 3.8 mmol/L Normal 3.5-5.1 [facility] Comment on above: Performed By: #### R ENMICHELLE, MG #### [facility] [address] [place] [address] Dr. Emilie Jeronimo Sodium [Moles/Vol] 145 mmol/L Normal 136-145 [facility] Comment on above: Performed By: #### R ENMICHELLE, MG #### [facility] [address] [place] [address] Dr. Emilie Jeronimo Urea nitrogen [Mass/Vol] 17.0 mg/dL Normal 7.0-18.0 [facility] Comment on above: Performed By: #### R ENMICHELLE, MG #### [facility] [address] [place] [address] Dr. Emilie Jeronimo UA RANDOM W/MICROSCOPICon BACTERIA SMALL Abnormal NONE SEEN [facility] Comment on above: Performed By: #### R ENMICHELLE, MG #### [facility] [address] [place] [address] Dr. Emilie Jeronimo Bilirubin Ql (U) Negative Normal NEGATIVE [facility] Comment on above: Performed By: #### R ENAL, MG #### [facility] [address] [place] [address] Dr. Emilie Jeronimo CAST NONE SEEN Normal NONE SEEN [facility] Comment on above: Performed By: #### R ENMICHELLE, MG #### [facility] [address] [place] [address] Dr. Emilie Jeronimo Clarity (U) SL CLOUDY Abnormal CLEAR [facility] Comment on above: Performed By: #### R ENAL, MG #### [facility] [address] [place] [address] Dr. Emilie Jeronimo Color (U) LT. YELLOW Normal YELLOW [facility] Comment on above: Performed By: #### R ENAL, MG #### [facility] [address] [address] [address] Emilie Jeronimo Crystals LM Nom (Urine sed) NONE SEEN Normal NONE SEEN [facility] Comment on above: Performed By: #### R ENAL, MG #### [facility] [address] [place] [address] Dr. Emilie Jeronimo Epithelial cells LM Ql (Urine sed) RARE Normal NONE SEEN /RARE [facility] Comment on above: Performed By: #### R ENAL, MG #### [facility] [address] [place] [address] Dr. Emilie Jeronimo Glucose Ql (U) Negative Normal NEGATIVE [facility] Comment on above: Performed By: #### R ENAL, MG #### [facility] [address] [place] [address] Dr. Emilie Jeronimo Hemoglobin Ql (U) TRACE-INTACT Abnormal NEGATIVE [facility] Comment on above: Performed By: #### R ENAL, MG #### [facility] [address] [place] [address] Dr. Emilie Jeronimo Ketones Ql (U) Negative Normal NEGATIVE [facility] Comment on above: Performed By: #### R ENAL, MG #### [facility] [address] [place] [address] Dr. Emilie Jeronimo LEUKOCYTES LARGE Abnormal NEGATIVE [facility] Comment on above: Performed By: #### R ENAL, MG #### [facility] [address] [place] [address] Dr. Emilie Jeronimo MUCOUS TRACE Abnormal NONE SEEN [facility] Comment on above: Performed By: #### R ENAL, MG #### [facility] [address] [place] [address] Dr. Emilie Jeronimo Nitrite Ql (U) Positive Abnormal NEGATIVE [facility] Comment on above: Performed By: #### R ENAL, MG #### [facility] [address] [place] [address] Dr. Emilie Jeronimo pH (U) 6.5 [pH] Normal 5-9 [facility] Comment on above: Performed By: #### R ENAL, MG #### [facility] [address] [place] [address] Dr. Emilie Jeronimo RBC 2-5 Abnormal 0-2 [facility] Comment on above: Performed By: #### R ENAL, MG #### [facility] [address] [place] [address] Dr. Emilie Jeronimo SPEC GRAVITY 1.020 Normal 1.005-<=1.025 [facility] Comment on above: Performed By: #### R ENAL, MG #### [facility] [address] [place] [address] Dr. Emilie Jeronimo UA PROTEIN TRACE Normal NEGATIVE/ TRACE [facility] Comment on above: Performed By: #### R ENAL, MG #### [facility] [address] [place] [address] Dr. Emilie Jeronimo Urobilinogen Qn (U) 1.0 {Fareed'U}/dL Normal 0.2 - 1. 0 [facility] Comment on above: Performed By: #### R ENAL, MG #### [facility] [address] [place] [address] Dr. Emilie Jeronimo WBC 20-50 Abnormal NONE SEEN [facility] Comment on above: Performed By: #### R ENAL, MG #### [facility] [address] [place] [address] Dr. Emilie Jeronimo VITAMIN D 25 OHon 11-29-2022 VIT D 25-OH 38.1 ng/mL Normal [facility] Comment on above: Performed By: #### R ENAL, MG #### [facility] [address] [place] [address] Dr. Emilie Jeronimo VIT D RANGES SEE BELOW Normal [facility] Comment on above: Result Comment: <20 ng/mL Vit D deficient 20 - <30 ng/mL Vit D insufficient 30 - 100 ng/mL Vit D sufficient >100 ng/mL Potential Toxicity Performed By: #### R MG ZEESHAN #### [facility] [address] [place] [address] Dr. Emilie Jeronimo Ellis 08-02-2022 L ---- Specimen: [id number] Received: 08/02/22 Status: BIANKA Meyer Num: [id number] Spec Type: Surgical Subm Dr: Madhav Conrad MD Tissues: A Gastric Biopsy (GASTRIC BX) Procedures: HE Stain/2, Gross/Micro L4 Age/ Patient Sex Location Account Attending Physician Narciso Velasquez 81/F [id number] Madhav Conrad MD SPEC NUM: [id number] RECD: 08/02/22 STATUS: BIANKA MEYER NUM: [id number] SHERLYN: 08/02/[address] [facility] [address]: Madhav Conrad MD ENTERED: 08/02/[address] [facility] [address]: SPEC TYPE: Surgical DEPT: S ORDERED: [...] findings support the above pathologic diagnosis. Specimen: [id number] Received: 08/02/22 Status: BIANKA Meyer Num: [id number] Spec Type: Surgical Subm Dr: Madhav Conrad MD Tissues: A Gastric Biopsy (GASTRIC BX) Procedures: HE Stain/2, Gross/Micro L4 Patient: Narciso Velasquez [id number] (Continued) Specimen: [id number] Received: 08/02/22 (Continued) Signed (signature on file) Donita Severino MD 08/04/22 1313 Specimen: [id number] Received: 08/02/22 Status: BIANKA Clary Num: [id number] Spec Type: Surgical Subm Dr: Madhav Conrad MD Tissues: A Gastric Biopsy (GASTRIC BX) Procedures: LYSSA Mcclain/2, Gross/Micro L4 Patient: Jesse Velasquezjohanna Meza [id number] (Continued) Specimen: [id number] Received: 08/02/22 (Continued) CPT Codes 59342 Specimen: [id number] Received: 08/02/22 Status: BIANKA Meyer Num: [id number] Spec Type: Surgical Subm Dr: Madhav Conrad MD Tissues: A Gastric Biopsy (GASTRIC BX) Procedures: HE Stain/2, Gross/Micro L4 Patient: RonNarciso [id number] (Continued) Signed (signature on file) Donita Severino MD 08/04/22 1313 Normal [facility] SARS-CoV-2 (COVID-19) RNA GAUDENCIO+probe Ql (Unsp spec) Negative Normal Negative [facility] Comment on above: Order Comment: Healt hcare Worker?: N Result Comment: Testing for SARS-CoV-2 by RT-PCR This test was developed and its performance characteristics determined by [employer] ([place]) and validated at the [facility]. This test has not been FDA [...] is terminated or revoked sooner. PERFORMED BY: [place] [address] PATHOLOGIST ANIMAL CARE SUPERVISOR CHELSY MAHMOOD M.D. Performed By: #### C OVID 19 [facility] #### [address] COVID-19 Positive/NegativeOr dered By: Madhav Conrad on 07-29-2022 SARS-CoV-2 (COVID-19) N gene GAUDENCIO+probe Ql (Resp) Negative Negative [facility] Comment on above: Testing for SARS-CoV -2 by RT-PCRThis test was developed and its performance characteristics determined by [employer] ([place]) and validated at the [facility]. This test has not been FDA [...] 07-11-2022 BASO # 0.1 103/ul Normal 0.0-0.1 [facility] Comment on above: Performed By: #### C BC #### [facility] [address] [place] [address] Dr. Emilie Jeronimo Basophils/100 WBC (Bld) 0.6 % Normal 0.2-2.0 [facility] Comment on above: Performed By: #### C BC #### [facility] [address] [place] [address] Dr. Emilie Jeronimo EO # 0.2 103/ul Normal 0.0-0.7 [facility] Comment on above: Performed By: #### C BC #### [facility] [address] [place] [address] Dr. Emilie Jeronimo Eosinophils/100 WBC (Bld) 1.9 % Normal 0.9-7.0 [facility] Comment on above: Performed By: #### C BC #### [facility] [address] [place] [address] Dr. Emilie Jeronimo Erythrocyte distribution width (RBC) [Ratio] 13.2 % Normal 11.0-15.0 [facility] Comment on above: Performed By: #### C BC #### [facility] [address] [place] [address] Dr. Emilie Jeronimo Hematocrit (Bld) [Volume fraction] 37.9 % Normal 36.0-48.0 [facility] Comment on above: Performed By: #### C BC #### [facility] [address] [place] [address] Dr. Emilie Jeronimo Hemoglobin (Bld) [Mass/Vol] 12.2 g/dL Normal 12.0-16.0 [facility] Comment on above: Performed By: #### C BC #### [facility] [address] [place] [address] Dr. Emilie Jeronimo IG # 0.03 10e3/ul Normal 0.00-0.03 [facility] Comment on above: Performed By: #### C BC #### [facility] [address] [place] [address] Dr. Emilie Jeronimo IG % 0.4 % Normal 0.0-0.5 [facility] Comment on above: Performed By: #### C BC #### [facility] [address] [place] [address] Dr. Emilie Jeronimo LYMPH # 2.3 103/ul Normal 1.2-3.8 [facility] Comment on above: Performed By: #### C BC #### [facility] [address] [place] [address] Dr. Emilie Jeronimo Lymphocytes/100 WBC (Bld) 29.0 % Normal 20.5-60.0 [facility] Comment on above: Performed By: #### C BC #### [facility] [address] [place] [address] Dr. Emilie Jeronimo MANUAL DIFF REQ NO Normal [facility] Comment on above: Performed By: #### C BC #### [facility] [address] [place] [address] Dr. Emilie Jeronimo MCH (RBC) [Entitic mass] 32.4 pg Normal 26.7-34.0 [facility] Comment on above: Performed By: #### C BC #### [facility] [address] [place] [address] Dr. Emilie Jeronimo MCHC (RBC) [Mass/Vol] 32.2 g/dL Normal 29.9-35.2 [facility] Comment on above: Performed By: #### C BC #### [facility] [address] [address] [address] Emilie Jeronimo MCV (RBC) [Entitic vol] 100.5 fL Critically high 81.0-99.0 [facility] Comment on above: Performed By: #### C BC #### [facility] [address] [address] [address] Emilie Jeronimo MONO # 0.6 103/ul Normal 0.3-0.8 [facility] Comment on above: Performed By: #### C BC #### [facility] [address] [address] [address] Emilie Jeronimo Monocytes/100 WBC (Bld) 7.9 % Normal 1.7-12.0 [facility] Comment on above: Performed By: #### C BC #### [facility] [address] [address] [address] Emilie Jeronimo NEUT # 4.7 103/ul Normal 1.4-6.5 [facility] Comment on above: Performed By: #### C BC #### [facility] [address] [address] [address] Emilie Jeronimo Neutrophils/100 WBC (Bld) 60.2 % Normal 43.0-75.0 [facility] Comment on above: Performed By: #### C BC #### [facility] [address] [address] [address] Emilie Jeronimo Platelet mean volume (Bld) [Entitic vol] 10.0 fL Normal 9.5-13.5 [facility] Comment on above: Performed By: #### C BC #### [facility] [address] [address] [address] Emilie Jeronimo PLT 234 103/ul Normal 150-450 [facility] Comment on above: Performed By: #### C BC #### [facility] [address] [address] [address] Emilie Jeronimo RBC 3.77 106/ul Critically low 4.20-5.40 [facility] Comment on above: Performed By: #### C BC #### [facility] [address] [place] [address] Dr. Emilie Jeronimo WBC 7.8 103/ul Normal 4.0-11.0 [facility] Comment on above: Performed By: #### C BC #### [facility] [address] [place] [address] Dr. Emilie Jeronimo FREE T4on 07-11-2022 Free T4 [Mass/Vol] 0.79 ng/dL Normal 0.76-1.46 [facility] Comment on above: Performed By: #### R ENAL, MG #### [facility] [address] [place] [address] Dr. Emilie Jeronimo PROF 14(COMP METB)on 022 Albumin [Mass/Vol] 3.7 g/dL Normal 3.4-5.0 [facility] Comment on above: Performed By: #### R ENAL, MG #### [facility] [address] [place] [address] Dr. Emilie Jeronimo Albumin/Globulin [Mass ratio] 1.2 {ratio} Normal [facility] Comment on above: Performed By: #### R ENAL, MG #### [facility] [address] [place] [address] Dr. Emilie Jeronimo ALP [Catalytic activity/Vol] 53 U/L Normal 46-116 [facility] Comment on above: Performed By: #### R ENAL, MG #### [facility] [address] [place] [address] Dr. Emilie Jeronimo ALT [Catalytic activity/Vol] 26 U/L Normal 14-59 [facility] Comment on above: Performed By: #### R ENAL, MG #### [facility] [address] [place] [address] Dr. Emilie Jeronimo Anion gap [Moles/Vol] 8.9 mmol/L Normal [facility] Comment on above: Performed By: #### R ENAL, MG #### [facility] [address] [place] [address] Dr. Emilie Jeronimo AST [Catalytic activity/Vol] 18 U/L Normal 15-37 [facility] Comment on above: Performed By: #### R ENAL, MG #### [facility] [address] [place] [address] Dr. Emilie Jeronimo Bilirubin [Mass/Vol] 0.3 mg/dL Normal 0.2-1.0 [facility] Comment on above: Performed By: #### R ENAL, MG #### [facility] [address] [place] [address] Dr. Emilie Jeronimo Calcium [Mass/Vol] 9.1 mg/dL Normal 8.5-10.1 [facility] Comment on above: Performed By: #### R ENAL, MG #### [facility] [address] [place] [address] Dr. Emilie Jeronimo Chloride [Moles/Vol] 104 mmol/L Normal 98-107 [facility] Comment on above: Performed By: #### R ENAL, MG #### [facility] [address] [place] [address] Dr. Emilie Jeronimo CO2 [Moles/Vol] 34.8 mmol/L Critically high 21.0-32.0 [facility] Comment on above: Performed By: #### R ENAL, MG #### [facility] [address] [place] [address] Dr. Emilie Jeronimo Creatinine [Mass/Vol] 0.73 mg/dL Normal 0.55-1.02 [facility] Comment on above: Performed By: #### R ENAL, MG #### [facility] [address] [place] [address] Dr. Emilie Jeronimo EGFR-AF BURKINAN >60 Normal >=60 [facility] Comment on above: Performed By: #### R ENAL, MG #### [facility] [address] [place] [address] Dr. Emilie Jeronimo EGFR-NON AF BURKINAN >60 Normal >=60 [facility] Comment on above: Performed By: #### R ENAL, MG #### [facility] [address] [place] [address] Dr. Emilie Jeronimo Globulin (S) [Mass/Vol] 3.2 g/dL Normal [facility] Comment on above: Performed By: #### R ENAL, MG #### [facility] [address] [place] [address] Dr. Emilie Jeronimo Glucose [Mass/Vol] 109 mg/dL Critically high 74-106 [facility] Comment on above: Performed By: #### R ENAL, MG #### [facility] [address] [place] [address] Dr. Emilie Jeronimo Potassium [Moles/Vol] 3.7 mmol/L Normal 3.5-5.1 [facility] Comment on above: Performed By: #### R ENAL, MG #### [facility] [address] [place] [address] Dr. Emilie Jeronimo Protein [Mass/Vol] 6.9 g/dL Normal 6.4-8.2 [facility] Comment on above: Performed By: #### R ENAL, MG #### [facility] [address] [place] [address] Dr. Emilie Jeronimo Sodium [Moles/Vol] 144 mmol/L Normal 136-145 [facility] Comment on above: Performed By: #### R ENAL, MG #### [facility] [address] [place] [address] Dr. Emilie Jeronimo Urea nitrogen [Mass/Vol] 20.0 mg/dL Critically high 7.0-18.0 [facility] Comment on above: Performed By: #### R ENAL, MG #### [facility] [address] [place] [address] Dr. Emilie Jeronimo Urea nitrogen/Creatinine [Mass ratio] 27.4 mg/mg Normal [facility] Comment on above: Performed By: #### R ENAL, MG #### [facility] [address] [place] [address] Dr. Emilie Jeronimo TSHon 07-11-2022 TSH 3.616 uIU/mL Normal 0.358-3.740 [facility] Comment on above: Performed By: #### R ENAL, MG #### [facility] [address] [place] [address] Dr. Emilie Jeronimo VITAMIN B12on 07-11-2022 Cobalamin (Vitamin B12) [Mass/Vol] 321.0 pg/mL Normal 193.0-986.0 [facility] Comment on above: Performed By: #### R ZEESHAN, MG #### [facility] [address] [place] [address] Dr. Emilie Jeronimo Tobacco Screening.on 022 Fall risk assessment a) No falls within the last year -[facility] DO Work Phone: Tobacco use status CPHS b) No -[facility] 250 DO Work Phone: CBC AUTO DIFFon 06-15-2022 BASO # 0.0 103/ul Normal 0.0-0.1 [facility] Comment on above: Performed By: #### C BC #### [facility] [address] [place] [address] Dr. Emilie Jeronimo Basophils/100 WBC (Bld) 0.4 % Normal 0.2-2.0 [facility] Comment on above: Performed By: #### C BC #### [facility] [address] [place] [address] Dr. Emilie Jeronimo EO # 0.2 103/ul Normal 0.0-0.7 [facility] Comment on above: Performed By: #### C BC #### [facility] [address] [place] [address] Dr. Emilie Jeronimo Eosinophils/100 WBC (Bld) 2.4 % Normal 0.9-7.0 [facility] Comment on above: Performed By: #### C BC #### [facility] [address] [place] [address] Dr. Emilei Jeronimo Erythrocyte distribution width (RBC) [Ratio] 12.8 % Normal 11.0-15.0 [facility] Comment on above: Performed By: #### C BC #### [facility] [address] [place] [address] Dr. Emilie Jeronimo Hematocrit (Bld) [Volume fraction] 38.3 % Normal 36.0-48.0 [facility] Comment on above: Performed By: #### C BC #### [facility] [address] [place] [address] Dr. Emilie Jeronimo Hemoglobin (Bld) [Mass/Vol] 12.5 g/dL Normal 12.0-16.0 [facility] Comment on above: Performed By: #### C BC #### [facility] [address] [place] [address] Dr. Emilie Jeronimo IG # 0.04 10e3/ul Critically high 0.00-0.03 [facility] Comment on above: Performed By: #### C BC #### [facility] [address] [place] [address] Dr. Emilie Jeronimo IG % 0.6 % Critically high 0.0-0.5 [facility] Comment on above: Performed By: #### C BC #### [facility] [address] [place] [address] Dr. Emilie Jeronimo LYMPH # 1.9 103/ul Normal 1.2-3.8 [facility] Comment on above: Performed By: #### C BC #### [facility] [address] [place] [address] Dr. Emilie Jeronimo Lymphocytes/100 WBC (Bld) 27.9 % Normal 20.5-60.0 [facility] Comment on above: Performed By: #### C BC #### [facility] [address] [place] [address] Dr. Emilie Jeronimo MANUAL DIFF REQ NO Normal [facility] Comment on above: Performed By: #### C BC #### [facility] [address] [place] [address] Dr. Emilie Jeronimo MCH (RBC) [Entitic mass] 32.2 pg Normal 26.7-34.0 [facility] Comment on above: Performed By: #### C BC #### [facility] [address] [place] [address] Dr. Emilie Jeronimo MCHC (RBC) [Mass/Vol] 32.6 g/dL Normal 29.9-35.2 [facility] Comment on above: Performed By: #### C BC #### [facility] [address] [address] [address] Emilie Jeronimo MCV (RBC) [Entitic vol] 98.7 fL Normal 81.0-99.0 [facility] Comment on above: Performed By: #### C BC #### [facility] [address] [address] [address] Emilie Jeronimo MONO # 0.5 103/ul Normal 0.3-0.8 [facility] Comment on above: Performed By: #### C BC #### [facility] [address] [address] [address] Emilie Jeronimo Monocytes/100 WBC (Bld) 7.3 % Normal 1.7-12.0 [facility] Comment on above: Performed By: #### C BC #### [facility] [address] [address] [address] Emilie Jeronimo NEUT # 4.1 103/ul Normal 1.4-6.5 [facility] Comment on above: Performed By: #### C BC #### [facility] [address] [address] [address] Emilie Jeronimo Neutrophils/100 WBC (Bld) 61.4 % Normal 43.0-75.0 [facility] Comment on above: Performed By: #### C BC #### [facility] [address] [address] [address] Emilie Jeronimo Platelet mean volume (Bld) [Entitic vol] 9.2 fL Critically low 9.5-13.5 [facility] Comment on above: Performed By: #### C BC #### [facility] [address] [address] [address] Emilie Jeronimo PLT 201 103/ul Normal 150-450 [facility] Comment on above: Performed By: #### C BC #### [facility] [address] [address] [address] Emilie Jeronimo RBC 3.88 106/ul Critically low 4.20-5.40 [facility] Comment on above: Performed By: #### C BC #### [facility] [address] [address] [address] Emilie Jeronimo WBC 6.7 103/ul Normal 4.0-11.0 [facility] Comment on above: Performed By: #### C BC #### [facility] [address] [address] [address] Emilie Jeronimo LIPID PROFILEon 06-15-2022 CHOL-HDL RATIO NORM SEE BELOW Normal [facility] Comment on above: Result Comment: 3.3 - 4.4 LOW RISK 4.4 - 7.1 AVERAGE RISK 7.1 - 11.0 MODERATE RISK >11.0 HIGH RISK Performed By: #### A ST, ALT, LIPID, BMP #### [facility] [address] [address] [address] Emilie Jeronimo Cholesterol [Mass/Vol] 124 mg/dL Normal <=200 [facility] Comment on above: Performed By: #### A ST, ALT, LIPID, BMP #### [facility] [address] [address] [address] Emilie Jeronimo Cholesterol in HDL [Mass/Vol] 81 mg/dL Critically high 40-60 [facility] Comment on above: Performed By: #### A ST, ALT, LIPID, BMP #### [facility] [address] [address] [address] Emilie Jreonimo Cholesterol in LDL [Mass/Vol] 27.6 mg/dL Normal [facility] Comment on above: Performed By: #### A ST, ALT, LIPID, BMP #### [facility] [address] [address] [address] Emilie Jeronimo Cholesterol.total/C holesterol in HDL [Mass ratio] 1.5 {ratio} Normal [facility] Comment on above: Performed By: #### A ST, ALT, LIPID, BMP #### [facility] [address] [address] [address] Emilie Jeronimo HDL NORMAL > or = 60 mg/dl - LO W CARDIOVASCULAR RISK <40 mg/dl - HIGH CARDIOVASCULAR RISK Normal [facility] Comment on above: Performed By: #### A ST, ALT, LIPID, BMP #### [facility] [address] [place] [address] Dr. Emilie Jeronimo LDL CALC NORMAL SEE BELOW Normal [facility] Comment on above: Result Comment: <100 mg/dl OPTIMAL 100 - 129 mg/dl NEAR OR ABOVE OPTIMAL 130 - 159 mg/dl BORDERLINE HIGH 160 - 189 mg/dl HIGH >190 mg/dl VERY HIGH Performed By: #### A ST, ALT, LIPID, BMP #### [facility] [address] [address] [address] Emilie Jeronimo Triglyceride [Mass/Vol] 77 mg/dL Normal <=150 [facility] Comment on above: Performed By: #### A ST, ALT, LIPID, BMP #### [facility] [address] [place] [address] Dr. Emilie Jeronimo VLDL CALC 15.4 mg/dL Normal [facility] Comment on above: Performed By: #### A ST, ALT, LIPID, BMP #### [facility] [address] [place] [address] Dr. Emilie Jeronimo PROF CHEM 8 (BAS METB)on Anion gap [Moles/Vol] 12.7 mmol/L Normal [facility] Comment on above: Performed By: #### A ST, ALT, LIPID, BMP #### [facility] [address] [place] [address] Dr. Emilie Jeronimo Calcium [Mass/Vol] 8.5 mg/dL Normal 8.5-10.1 [facility] Comment on above: Performed By: #### A ST, ALT, LIPID, BMP #### [facility] [address] [place] [address] Dr. Emilie Jeronimo Chloride [Moles/Vol] 102 mmol/L Normal 98-107 [facility] Comment on above: Performed By: #### A ST, ALT, LIPID, BMP #### [facility] [address] [place] [address] Dr. Emilie Jeronimo CO2 [Moles/Vol] 30.1 mmol/L Normal 21.0-32.0 [facility] Comment on above: Performed By: #### A ST, ALT, LIPID, BMP #### [facility] [address] [address] [address] Emilie Jeronimo Creatinine [Mass/Vol] 0.76 mg/dL Normal 0.55-1.02 [facility] Comment on above: Performed By: #### A ST, ALT, LIPID, BMP #### [facility] [address] [address] [address] Emilie Jeronimo EGFR-AF BURKINAN >60 Normal >=60 [facility] Comment on above: Performed By: #### A ST, ALT, LIPID, BMP #### [facility] [address] [address] [address] Emilie Jeronimo EGFR-NON AF BURKINAN >60 Normal >=60 [facility] Comment on above: Performed By: #### A ST, ALT, LIPID, BMP #### [facility] [address] [address] [address] Emilie Jeronimo Glucose [Mass/Vol] 97 mg/dL Normal 74-106 [facility] Comment on above: Performed By: #### A ST, ALT, LIPID, BMP #### [facility] [address] [address] [address] Emilie Jeronimo Potassium [Moles/Vol] 3.8 mmol/L Normal 3.5-5.1 [facility] Comment on above: Performed By: #### A ST, ALT, LIPID, BMP #### [facility] [address] [address] [address] Emilie Jeronimo Sodium [Moles/Vol] 141 mmol/L Normal 136-145 [facility] Comment on above: Performed By: #### A ST, ALT, LIPID, BMP #### [facility] [address] [address] [address] Emilie Jeronimo Urea nitrogen [Mass/Vol] 21.0 mg/dL Critically high 7.0-18.0 [facility] Comment on above: Performed By: #### A ST, ALT, LIPID, BMP #### [facility] [address] [address] [address] Emilie Jeronimo Urea nitrogen/Creatinine [Mass ratio] 27.6 mg/mg Normal [facility] Comment on above: Performed By: #### A ST, ALT, LIPID, BMP #### [facility] [address] [address] [address] Emilie Jeronimo SGOTon 06-15-2022 AST [Catalytic activity/Vol] 22 U/L Normal 15-37 [facility] Comment on above: Performed By: #### A ST, ALT, LIPID, BMP #### [facility] [address] [address] [address] Emilie Jeronimo SGPTon 06-15-2022 ALT [Catalytic activity/Vol] 21 U/L Normal 14-59 [facility] Comment on above: Performed By: #### A ST, ALT, LIPID, BMP #### [facility] [address] [address] ABD/PELVIS WO CONon [...] JAYLEEN GREER Date: 2022-04-21 10:40 Normal [facility] PTH INTACTon 03-24-2022 PTH, Intact 4 pg/mL Critically low 15-65 [facility] Comment on above: Performed By: #### P THINT #### [facility] [address] [address] [address] Emilie Jeronimo CBC AUTO DIFFon 03-23-2022 BASO # 0.0 103/ul Normal 0.0-0.1 [facility] Comment on above: Performed By: #### R ZEESHAN, MG #### [facility] [address] [place] [address] Dr. Emilie Jeornimo Basophils/100 WBC (Bld) 0.5 % Normal 0.2-2.0 [facility] Comment on above: Performed By: #### R ENMICHELLE, MG #### [facility] [address] [address] [address] Emilie Jeronimo EO # 0.1 103/ul Normal 0.0-0.7 [facility] Comment on above: Performed By: #### R ENAL, MG #### [facility] [address] [place] [address] Dr. Emilie Jeronimo Eosinophils/100 WBC (Bld) 1.3 % Normal 0.9-7.0 [facility] Comment on above: Performed By: #### R ENAL, MG #### [facility] [address] [address] [address] Emilie Jeronimo Erythrocyte distribution width (RBC) [Ratio] 13.0 % Normal 11.0-15.0 [facility] Comment on above: Performed By: #### R ENMICHELLE, MG #### [facility] [address] [place] [address] Dr. Emilie Jeronimo Hematocrit (Bld) [Volume fraction] 34.2 % Critically low 36.0-48.0 [facility] Comment on above: Performed By: #### R ENAL, MG #### [facility] [address] [address] [address] Emilie Jeronimo Hemoglobin (Bld) [Mass/Vol] 11.3 g/dL Critically low 12.0-16.0 [facility] Comment on above: Performed By: #### R ENAL, MG #### [facility] [address] [address] [address] Emilie Jeronimo IG # 0.02 10e3/ul Normal 0.00-0.03 [facility] Comment on above: Performed By: #### R ENAL, MG #### [facility] [address] [address] [address] Emilie Jeronimo IG % 0.3 % Normal 0.0-0.5 [facility] Comment on above: Performed By: #### R ENAL, MG #### [facility] [address] [place] [address] Dr. Emilie Jeronimo LYMPH # 1.4 103/ul Normal 1.2-3.8 [facility] Comment on above: Performed By: #### R ENAL, MG #### [facility] [address] [place] [address] Dr. Emilie Jeronimo Lymphocytes/100 WBC (Bld) 24.0 % Normal 20.5-60.0 [facility] Comment on above: Performed By: #### R ENAL, MG #### [facility] [address] [place] [address] Dr. Emilie Jeronimo MANUAL DIFF REQ NO Normal [facility] Comment on above: Performed By: #### R ENAL, MG #### [facility] [address] [address] [address] Emilie Jeronimo MCH (RBC) [Entitic mass] 32.5 pg Normal 26.7-34.0 [facility] Comment on above: Performed By: #### R ENAL, MG #### [facility] [address] [place] [address] Dr. Emilie Jeronimo MCHC (RBC) [Mass/Vol] 33.0 g/dL Normal 29.9-35.2 [facility] Comment on above: Performed By: #### R ENAL, MG #### [facility] [address] [place] [address] Dr. Emilie Jeronimo MCV (RBC) [Entitic vol] 98.3 fL Normal 81.0-99.0 [facility] Comment on above: Performed By: #### R ENAL, MG #### [facility] [address] [place] [address] Dr. Emilie Jeronimo MONO # 0.5 103/ul Normal 0.3-0.8 [facility] Comment on above: Performed By: #### R ENAL, MG #### [facility] [address] [place] [address] Dr. Emilie Jeronimo Monocytes/100 WBC (Bld) 8.7 % Normal 1.7-12.0 [facility] Comment on above: Performed By: #### R ENAL, MG #### [facility] [address] [place] [address] Dr. Emilie Jeronimo NEUT # 3.9 103/ul Normal 1.4-6.5 [facility] Comment on above: Performed By: #### R ENAL, MG #### [facility] [address] [place] [address] Dr. Emilie Jeronimo Neutrophils/100 WBC (Bld) 65.2 % Normal 43.0-75.0 [facility] Comment on above: Performed By: #### R ENAL, MG #### [facility] [address] [place] [address] Dr. Emilie Jeronimo Platelet mean volume (Bld) [Entitic vol] 10.0 fL Normal 9.5-13.5 [facility] Comment on above: Performed By: #### R ENAL, MG #### [facility] [address] [place] [address] Dr. Emilie Jeronimo PLT 197 103/ul Normal 150-450 [facility] Comment on above: Performed By: #### R ENAL, MG #### [facility] [address] [place] [address] Dr. Emilie Jeronimo RBC 3.48 106/ul Critically low 4.20-5.40 [facility] Comment on above: Performed By: #### R ENAL, MG #### [facility] [address] [place] [address] Dr. Emilie Jeronimo WBC 6.0 103/ul Normal 4.0-11.0 [facility] Comment on above: Performed By: #### R ENMICHELLE, MG #### [facility] [address] [place] [address] Dr. Emilie Jeronimo PROF CHEM 8 (BAS METB)on Anion gap [Moles/Vol] 10.3 mmol/L Normal [facility] Comment on above: Performed By: #### R ENMICHELLE, MG #### [facility] [address] [place] [address] Dr. Emilie Jeronimo Calcium [Mass/Vol] 6.1 mg/dL Critically low 8.5-10.1 [facility] Comment on above: Performed By: #### R ENMCIHELLE, MG #### [facility] [address] [place] [address] Dr. Emilie Jeronimo Chloride [Moles/Vol] 103 mmol/L Normal 98-107 [facility] Comment on above: Performed By: #### R ENMICHELLE, MG #### [facility] [address] [place] [address] Dr. Emilie Jeronimo CO2 [Moles/Vol] 31.8 mmol/L Normal 21.0-32.0 [facility] Comment on above: Performed By: #### R ENMICHELLE, MG #### [facility] [address] [place] [address] Dr. Emilie Jeronimo Creatinine [Mass/Vol] 0.70 mg/dL Normal 0.55-1.02 [facility] Comment on above: Performed By: #### R ENMICHELLE, MG #### [facility] [address] [place] [address] Dr. Emilie Jeronimo EGFR-AF BURKINAN >60 Normal >=60 [facility] Comment on above: Performed By: #### R ENMICHELLE, MG #### [facility] [address] [place], [place] [address] Dr. Emilie Jeronimo EGFR-NON AF BURKINAN >60 Normal >=60 [facility] Comment on above: Performed By: #### R ZEESHAN, MG #### [facility] [address] [place] [address] Dr. Emilie Jeronimo Glucose [Mass/Vol] 120 mg/dL Critically high 74-106 [facility] Comment on above: Performed By: #### R ENMICHELLE, MG #### [facility] [address] [place] [address] Dr. Emilie Jeronimo Potassium [Moles/Vol] 3.1 mmol/L Critically low 3.5-5.1 [facility] Comment on above: Performed By: #### R ENMICHELLE, MG #### [facility] [address] [place] [address] Dr. Emilie Jeronimo Sodium [Moles/Vol] 142 mmol/L Normal 136-145 [facility] Comment on above: Performed By: #### R ZEESHAN, MG #### [facility] [address] [place] [address] Dr. Emilie Jeronimo Urea nitrogen [Mass/Vol] 21.0 mg/dL Critically high 7.0-18.0 [facility] Comment on above: Performed By: #### R ZEESHAN, MG #### [facility] [address] [place] [address] Dr. Emilie Jeronimo Urea nitrogen/Creatinine [Mass ratio] 30.0 mg/mg Normal [facility] Comment on above: Performed By: #### R ZEESHAN, MG #### [facility] [address] [place] [address] Dr. Emilie Jeronimo MAGNESIUMon 03-22-2022 Magnesium [Mass/Vol] 1.5 mg/dL Critically low 1.8-2.4 [facility] Comment on above: Performed By: #### R ZEESHAN, MG #### [facility] [address] [place] [address] Dr. Emilie Jeronimo RENAL FUNCTION PANELon 03-22 Albumin [Mass/Vol] 3.6 g/dL Normal 3.4-5.0 [facility] Comment on above: Performed By: #### R ENAL, MG #### [facility] [address] [address] [address] Emilie Jeronimo Calcium [Mass/Vol] 6.4 mg/dL Critically low 8.5-10.1 [facility] Comment on above: Performed By: #### R ENAL, MG #### [facility] [address] [address] [address] Emilie Jeronimo Chloride [Moles/Vol] 101 mmol/L Normal 98-107 [facility] Comment on above: Performed By: #### R ENAL, MG #### [facility] [address] [place] [address] Dr. Emilie Jeronimo CO2 [Moles/Vol] 31.4 mmol/L Normal 21.0-32.0 [facility] Comment on above: Performed By: #### R ENAL, MG #### [facility] [address] [place] [address] Dr. Emilie Jeronimo Creatinine [Mass/Vol] 0.77 mg/dL Normal 0.55-1.02 [facility] Comment on above: Performed By: #### R ENAL, MG #### [facility] [address] [place] [address] Dr. Emilie Jeronimo EGFR-AF BURKINAN >60 Normal >=60 [facility] Comment on above: Performed By: #### R ENAL, MG #### [facility] [address] [place] [address] Dr. Emilie Jeronimo EGFR-NON AF BURKINAN >60 Normal >=60 [facility] Comment on above: Performed By: #### R ENAL, MG #### [facility] [address] [place] [address] Dr. Emilie Jeronimo Glucose [Mass/Vol] 150 mg/dL Critically high 74-106 [facility] Comment on above: Performed By: #### R ENAL, MG #### [facility] [address] [place] [address] Dr. Emilie Jeronimo Phosphate [Mass/Vol] 4.8 mg/dL Critically high 2.6-4.7 [facility] Comment on above: Performed By: #### R ENAL, MG #### [facility] [address] [address] [address] Emilie Jeronimo Potassium [Moles/Vol] 2.7 mmol/L Critically low 3.5-5.1 [facility] Comment on above: Result Comment: TEST REPEATED CRITICAL VALUE VERIFIED Performed By: #### R ZEESHAN, MG #### [facility] [address] [place] [address] Dr. Emilie Jeronimo Sodium [Moles/Vol] 142 mmol/L Normal 136-145 [facility] Comment on above: Performed By: #### R ZEESHAN, MG #### [facility] [address] [place] [address] Dr. Emilie Jeronimo Urea nitrogen [Mass/Vol] 29.0 mg/dL Critically high 7.0-18.0 [facility] Comment on above: Performed By: #### R ZEESHAN, MG #### [facility] [address] [place] [address] Dr. Emilie Jeronimo VITAMIN D 25 OHon 03-22-2022 VIT D 25-OH 32.5 ng/mL Normal [facility] Comment on above: Performed By: #### V ITAD #### [facility] [address] [place] [address] Dr. Emilie Jeronimo VIT D RANGES SEE BELOW Normal [facility] Comment on above: Result Comment: <20 ng/mL Vit D deficient 20 - <30 ng/mL Vit D insufficient 30 - 100 ng/mL Vit D sufficient >100 ng/mL Potential Toxicity Performed By: #### V ITAD #### [facility] [address] [place] [address] Dr. Emilie Jeronimo Tobacco Screening.on 022 Adult depression screening assessment No [facility] DO Work Phone: Fall risk assessment a) No falls within the last year [facility] DO Work Phone: Tobacco use status CP b) No [facility] DO Work Phone: Automated erythrocytes count in urine sediment (number/area)on 02-17-2021 RBC Auto (Urine sed) [#/Area] 0-1 [HPF] [facility] Automated leukocytes count i n urine sediment (number/area)on 02-17-2021 WBC Auto (Urine sed) [#/Area] 20-49 [HPF] [facility] Basophils Auto (Bld) [#/Vol] on 02-17-2021 Basophils (Bld) [#/Vol] 0.1 10*3/uL 0.0-0.2 [facility] Basophils/100 WBC Auto (Bld) on 02-17-2021 Basophils/100 WBC (Bld) 0.8 % [facility] Bilirubin Test strip Ql (U)o n 02-17-2021 Bilirubin Ql (U) Negative Negative [facility] Blood hemoglobin measurement (mass/volume)on 02-17-2021 Hemoglobin (Bld) [Mass/Vol] 12.6 g/dL 11.8-15.4 [facility] Blood leukocytes automated c ount (number/volume)on 02-17-2021 WBC (Bld) [#/Vol] 7.3 10*3/uL 4.5-11.0 [facility] Color Auto (U)on 02-17-2021 Color (U) Yellow Yellow [facility] Creatinine and Glomerular fi ltration rate.predicted panel (S/P/Bld)on 02-17-2021 Creatinine [Mass/Vol] 0.78 mg/dL 0.44-1.03 [facility] Eosinophils Auto (Bld) [#/Vo l]on 02-17-2021 Eosinophils (Bld) [#/Vol] 0.2 10*3/uL 0.0-0.45 [facility] Eosinophils/100 WBC Auto (Bl d)on 02-17-2021 Eosinophils/100 WBC (Bld) 2.2 % [facility] Erythrocyte distribution wid th Auto (RBC) [Ratio]on 02-17-2021 Erythrocyte distribution width (RBC) [Ratio] 14.5 % 11.9-15.3 [facility] Estimated glomerular filtrat ion rate (GFR) non- Americanon 02-17-2021 GFR/1.73 sq M.predicted among non-blacks MDRD (S/P/Bld) [Vol rate/Area] > 60 mL/Min [facility] Hematocrit Auto (Bld) [Volum e fraction]on 02-17-2021 Hematocrit (Bld) [Volume fraction] 37.5 % 34.0-46.4 [facility] Ketones Auto test strip (U) [Mass/Vol]on 02-17-2021 Ketones (U) [Mass/Vol] Negative Negative [facility] Laboratory - Hematology and Cell countson 02-17-2021 Nucleated RBC/100 WBC (Bld) [Ratio] 0.0 % 0-0.5 [facility] Laboratory - Urinalysison Hyaline casts LM Ql (Urine sed) 0-8 [LPF] [facility] Lymphocytes Auto (Bld) [#/Vo l]on 02-17-2021 Lymphocytes (Bld) [#/Vol] 1.6 10*3/uL 1.00-4.8 [facility] Lymphocytes/100 WBC Auto (Bl d)on 02-17-2021 Lymphocytes/100 WBC (Bld) 21.5 % [facility] MCH Auto (RBC) [Entitic mass ]on 02-17-2021 MCH (RBC) [Entitic mass] 32.4 pg 24.7-34.3 [facility] MCHC Auto (RBC) [Mass/Vol]on 02-17-2021 MCHC (RBC) [Mass/Vol] 33.6 g/dL 32.0-35.0 [facility] MCV Auto (RBC) [Entitic vol] on 02-17-2021 MCV (RBC) [Entitic vol] 96.3 fL 80-100 [facility] Monocytes Auto (Bld) [#/Vol] on 02-17-2021 Monocytes (Bld) [#/Vol] 0.7 10*3/uL 0.0-0.8 [facility] Monocytes/100 WBC Auto (Bld) on 02-17-2021 Monocytes/100 WBC (Bld) 9.6 % [facility] Neutrophils Auto (Bld) [#/Vo l]on 02-17-2021 Neutrophils (Bld) [#/Vol] 4.8 10*3/uL 1.8-7.7 [facility] Neutrophils/100 WBC Auto (Bl d)on 02-17-2021 Neutrophils/100 WBC (Bld) 65.9 % [facility] Nitrite Test strip Ql (U)on 02-17-2021 Nitrite Ql (U) Negative Negative [facility] No Panel Informationon 02-17 Estimated GFR () > 60 mL/Min [facility] Comment on above: GFR estimated refere nce range: According to KDOQI guidelines, <60 ml/min/1.73m2 is sufficient to diagnose a patient with chronic kidney disease. Pharmacy Creatinine Clearance (Chem N/A [facility] Platelet mean volume Auto (B ld) [Entitic vol]on 02-17-2021 Platelet mean volume (Bld) [Entitic vol] 7.6 fL 6.3-10.7 [facility] Platelets Auto (Bld) [#/Vol] on 02-17-2021 Platelets (Bld) [#/Vol] 206 10*3/uL 150-450 [facility] Protein Auto test strip (U) [Mass/Vol]on 02-17-2021 Protein (U) [Mass/Vol] Negative Negative [facility] RBC Auto (Bld) [#/Vol]on RBC (Bld) [#/Vol] 3.89 10*6/uL 3.60-5.00 [facility] Serum or plasma calcium twan urement (mass/volume)on 02-17-2021 Calcium [Mass/Vol] 7.6 mg/dL 8.2-10.2 [facility] Serum or plasma chloride jewel surement (moles/volume)on 02-17-2021 Chloride [Moles/Vol] 100 mmol/L 95-114 [facility] Serum or plasma glucose twan urement (mass/volume)on 02-17-2021 Glucose [Mass/Vol] 97 mg/dL 70-100 [facility] Comment on above: ADA recommended refe rence rangeRandom Glucose Reference Range is dependent on time and content of last meal. Glucose of more than 200 mg/dL in a nonstressed, ambulatory subject supports the diagnosis of Diabetes Mellitus. Serum or plasma potassium me asurement (moles/volume)on 02-17-2021 Potassium [Moles/Vol] 3.8 mmol/L 3.5-5.1 [facility] Serum or plasma sodium measu rement (moles/volume)on 02-17-2021 Sodium [Moles/Vol] 139 mmol/L 136-146 [facility] Serum or plasma total carbon dioxide measurement (moles/volume)on 02-17-2021 CO2 [Moles/Vol] 28.3 mmol/L 22.0-30.0 [facility] Serum or plasma urea nitroge n measurement (mass/volume)on 02-17-2021 Urea nitrogen [Mass/Vol] 22 mg/dL 9-23 [facility] Specific gravity Auto test s trip (U) [Rel density]on 02-17-2021 Specific gravity (U) [Rel density] 1.021 1.001-1.030 [facility] Squamous epithelial cells de tection in urine sediment by light microscopyon 02-17-2021 Epithelial cells.squamous LM Ql (Urine sed) 0-1 [HPF] [facility] Urine bacteria detection by automated methodon 02-17-2021 Bacteria Auto Ql (U) 2+ None Seen [facility] Urine clarity by refractomet ry automatedon 02-17-2021 Clarity Refractometry automated (U) Clear Clear [facility] Urine culture routineon 01-29 Bacteria identified Cx Nom (U) Aerococcus urinae [facility] Urine glucose measurement by automated test strip (mass/volume)on 02-17-2021 Glucose Auto test strip (U) [Mass/Vol] Normal mg/dL Normal [facility] Urine hemoglobin detection b y automated test stripon 02-17-2021 Hemoglobin Auto test strip Ql (U) Negative Negative [facility] Urine leukocyte esterase det ection by automated test stripon 02-17-2021 Leukocyte esterase Auto test strip Ql (U) 3+ Negative [facility] Urobilinogen Auto test strip (U) [Mass/Vol]on 02-17-2021 Urobilinogen (U) [Mass/Vol] Normal mg/dL Normal [facility] Yeast detection in urine sed iment by light microscopyon 02-17-2021 Yeast LM Ql (Urine sed) None seen [HPF] None Seen [facility] pH Auto test strip (U)on pH (U) 5.0 [pH] 5.0-9.0 [facility] Cesar 03-12-2020 ALT [Catalytic activity/Vol] 16 U/L Normal 7 - 45 [facility] Comment on above: Result Comment: Josee ents treated with Sulfasalazine may generate falsely decreased results for ALT. Performed By: #### A LT #### [address] [address] Jamari 03-12-2020 AST [Catalytic activity/Vol] 22 U/L Normal 9 - 39 [facility] Comment on above: Performed By: #### A ST #### [address] [address] CREATININEon 03-12-2020 Creatinine [Mass/Vol] mg/dL Normal >60 [facility] Comment on above: Result Comment: CALC ULATIONS OF ESTIMATED GFR ARE PERFORMED USING THE MDRD STUDY EQUATION FOR THE IDMS-TRACEABLE CREATININE METHODS. CLIN CHEM 2007;53:766-72 Performed By: #### C REAT #### [address] [address] Creatinine [Mass/Vol] 0.84 mg/dL Normal 0.50 - 1.05 [facility] Comment on above: Performed By: #### C REAT #### [address] [address] ELECTROLYTE PANELon 03-12-20 20 Anion gap [Moles/Vol] 15 mmol/L Normal 10 - 20 [facility] Comment on above: Performed By: #### E LECT #### [address] [address] Chloride [Moles/Vol] 102 mmol/L Normal 98 - 107 [facility] Comment on above: Performed By: #### E LECT #### [address] [address] HCO3 (Bld) [Moles/Vol] 30 mmol/L Normal 21 - 32 [facility] Comment on above: Performed By: #### E LECT #### [address] [address] Potassium [Moles/Vol] 4.0 mmol/L Normal 3.5 - 5.3 [facility] Comment on above: Performed By: #### E LECT #### [address] [address] Sodium [Moles/Vol] 143 mmol/L Normal 136 - 145 [facility] Comment on above: Performed By: #### E LECT #### [address] [address] LIPID PANEL (CORONARY RISK 2 )on 03-12-2020 Cholesterol [Mass/Vol] 99 mg/dL Normal 0 - 199 [facility] Comment on above: Result Comment: . AGE [...] dosing. Performed By: #### L IPID #### [address] [address] Cholesterol in HDL [Mass/Vol] 60.0 mg/dL Normal [facility] Comment on above: Result Comment: . AGE VERY LOW LOW NORMAL HIGH 0-19 Y < 35 < 40 40-45 ---- 20-24 Y ---- < 40 >45 ---- >24 Y ---- < 40 40-60 >60 . Performed By: #### L IPID #### [address] [address] Cholesterol in LDL [Mass/Vol] 23 mg/dL Normal 0 - 99 [facility] Comment on above: Result Comment: . NEAR BORD AGE DESIRABLE OPTIMAL HIGH HIGH VERY HIGH 0-19 Y 0 - 109 --- 110-129 >/= 130 ---- 20-24 Y 0 - 119 --- 120-159 >/= 160 ---- >24 Y 0 - 99 100-129 130-159 160-189 >/=190 . Performed By: #### L IPID #### [address] [address] Cholesterol in VLDL [Mass/Vol] 16 mg/dL Normal 0 - 40 [facility] Comment on above: Performed By: #### L IPID #### [address] [address] Cholesterol.total/C holesterol in HDL [Mass ratio] 1.7 {ratio} Normal [facility] Comment on above: Result Comment: REF VALUES DESIRABLE < 3.4 HIGH RISK > 5.0 Performed By: #### L IPID #### [address] [address] Triglyceride [Mass/Vol] 79 mg/dL Normal 0 - 149 [facility] Comment on above: Result Comment: . AGE [...] dosing. Performed By: #### L IPID #### [address] [address] PARATHYROID HORMONE,INTACTon 03-12-2020 PARATHYROID HORMONE,INTACT < 6.3 Low 18.5 - 88.0 [facility] Comment on above: Result Comment: Josee ents receiving more than 5 mg/day of biotin may have interference in test results. A sample should be taken no sooner than eight hours after previous dose. Contact the testing laboratory for additional information. Performed By: #### P TH #### [address] [address] RENAL FUNCTION PANELon 03-12 Albumin [Mass/Vol] 4.3 g/dL Normal 3.4 - 5.0 [facility] Comment on above: Performed By: #### T SH2 #### [address] [address] Anion gap [Moles/Vol] 16 mmol/L Normal 10 - 20 [facility] Comment on above: Performed By: #### T SH2 #### [place] [id number] Calcium [Mass/Vol] 8.2 mg/dL Low 8.6 - 10.3 [facility] Comment on above: Performed By: #### T SH2 #### [address] [address] Chloride [Moles/Vol] 102 mmol/L Normal 98 - 107 [facility] Comment on above: Performed By: #### T SH2 #### [address] [address] Creatinine [Mass/Vol] 0.82 mg/dL Normal 0.50 - 1.05 [facility] Comment on above: Performed By: #### T SH2 #### [address] [address] GFR- AM. >60 Normal >60 [facility] Comment on above: Result Comment: CALC ULATIONS OF ESTIMATED GFR ARE PERFORMED USING THE MDRD STUDY EQUATION FOR THE IDMS-TRACEABLE CREATININE METHODS. CLIN CHEM 2007;53:766-72 Performed By: #### T SH2 #### [address] [address] GFR-NON AM. >60 Normal >60 [facility] Comment on above: Performed By: #### T SH2 #### [address] [address] Glucose [Mass/Vol] 97 mg/dL Normal 74 - 99 [facility] Comment on above: Performed By: #### T SH2 #### [address] [address] HCO3 (Bld) [Moles/Vol] 29 mmol/L Normal 21 - 32 [facility] Comment on above: Performed By: #### T SH2 #### [address] [address] Phosphate [Mass/Vol] 5.3 mg/dL High 2.5 - 4.9 [facility] Comment on above: Result Comment: The performance characteristics of phosphorus testing in heparinized plasma have been validated by the individual laboratory site where testing is performed. Testing on heparinized plasma is not approved by the FDA; however, such approval is not necessary. Performed By: #### T SH2 #### [address] [address] Potassium [Moles/Vol] 3.7 mmol/L Normal 3.5 - 5.3 [facility] Comment on above: Performed By: #### T SH2 #### [address] [address] Sodium [Moles/Vol] 143 mmol/L Normal 136 - 145 [facility] Comment on above: Performed By: #### T SH2 #### [address] [address] Urea nitrogen [Mass/Vol] 23 mg/dL Normal 6 - 23 [facility] Comment on above: Performed By: #### T SH2 #### [address] [address] UREA NITROGENon 03-12-2020 Urea nitrogen [Mass/Vol] 23 mg/dL Normal 6 - 23 [facility] Comment on above: Performed By: #### U TARAS #### [address] [address] VITAMIN D, 25-HYDROXYon 02-27 VITAMIN D, 25-HYDROXY 43 ng/mL Normal [facility] Comment on above: Result Comment: . DEFICIENCY: < 20 NG/ML INSUFFICIENCY: 20-29 NG/ML SUFFICIENCY: 30-100 NG/ML THIS ASSAY ACCURATELY QUANTIFIES THE SUM OF VITAMIN D3, 25-HYDROXY AND VIT D2,25-HYDROXY. Performed By: #### T SH2 #### [address] [address] THYROXINEon 09-17-2019 T4 [Mass/Vol] 8.0 ug/dL Normal 4.5 - 11.1 [facility] Comment on above: Performed By: #### T 4 #### [address] [address] THYROXINE,FREEon 09-17-2019 THYROXINE,FREE 0.70 ng/dL Normal 0.61 - 1.27 [facility] Comment on above: Result Comment: Thyr oxine Free testing is performed using different testing methodology at [facility] than at other [facility]. Direct result comparisons should only be made within the same method. Patients receiving more than 5 mg/day of biotin may have interference in test results. A sample should be taken no sooner than eight hours after previous dose. Performed By: #### T 4FRE #### [address] [address] TSHon 09-17-2019 TSH Qn 6.25 m[IU]/L High 0.44 - 3.98 [facility] Comment on above: Result Comment: TSH testing is performed using different testing methodology at [facility] than at other [facility]. Direct result comparisons should only be made within the same method. Performed By: #### T SH2 #### [address] [address] Vital Signs Date Time Vital Sign Value Performing Clinician Facility 03-07-2024 11:44-0400 Body height 147.32 cm [facility] 03-07-2024 11:44-0400 Body mass index (BMI) [Ratio] 22.8 kg/m2 [facility] 03-07-2024 11:44-0400 Body temperature 97.6 [degF] [facility] 03-07-2024 11:44-040 Body weight 49.44 kg [facility] 03-07-2024 11:44-0400 Diastolic blood pressure 60 mm[Hg] [facility] 03-07-2024 11:44-0400 Heart rate 96 /min [facility] 03-07-2024 11:44-0400 Respiratory rate 16 /min [facility] 03-07-2024 11:44-0400 SaO2% (BldA) [Mass fraction] 86 % [facility] 03-07-2024 11:44-0400 Systolic blood pressure 102 mm[Hg] [facility] 07-20-2023 10:40-0400 Body height 147.32 cm Pratik A Naderer Work Phone: [facility] DO Work Phone: 07-20-2023 10:40-0400 Body mass index (BMI) [Ratio] 21.11 kg/m2 Pratik A Naderer Work Phone: [facility] DO Work Phone: 07-20-2023 10:40-0400 Body surface area Derived from formula 1.36 m2 Pratik A Naderer Work Phone: [facility] DO Work Phone: 07-20-2023 10:40-0400 Body weight 45.81 kg Pratik A Naderer Work Phone: [facility] DO Work Phone: 07-20-2023 10:40-0400 Diastolic blood pressure 66 mm[Hg] Pratik A Naderer Work Phone: [facility] DO Work Phone: 07-20-2023 10:40-0400 Heart rate 60 /min Pratik A Naderer Work Phone: [facility] DO Work Phone: 07-20-2023 10:40-0400 Systolic blood pressure 100 mm[Hg] Pratik Bartonerer Work Phone: [facility] DO Work Phone: 02-08-2023 14:00-0400 Body height 147.32 cm Madhav Valerietim Other [employer] Other 02-08-2023 14:00-0400 Body mass index (BMI) [Ratio] 22.57 kg/m2 Madhav Valerietim Other [employer] Other 02-08-2023 14:00-0400 Body weight 48.99 kg Madhav Conrad Other [employer] Other 02-08-2023 14:00-0400 Diastolic blood pressure 60 mm[Hg] Madhav Valerietim Other [employer] Other 02-08-2023 14:00-0400 Systolic blood pressure 105 mm[Hg] Madhav Anamaria Other [facility] Other 01-12-2023 11:13-0400 Body height 147.32 cm Pratik Meza Naderer Work Phone: [facility] DO Work Phone: 01-12-2023 11:13-0400 Body mass index (BMI) [Ratio] 21.95 kg/m2 Pratik Meza Naderer Work Phone: [facility] DO Work Phone: 01-12-2023 11:13-0400 Body surface area Derived from formula 1.38 m2 Pratik Meza Naderer Work Phone: [facility] DO Work Phone: 01-12-2023 11:13-0400 Body weight 47.63 kg Pratik A Naderer Work Phone: [facility] DO Work Phone: 01-12-2023 11:13-0400 Diastolic blood pressure 60 mm[Hg] Pratik Meza Naderer Work Phone: [facility] DO Work Phone: 01-12-2023 11:13-0400 Heart rate 88 /min Pratik Meza Naderer Work Phone: [facility] DO Work Phone: 01-12-2023 11:13-0400 Systolic blood pressure 102 mm[Hg] Pratik Meza Naderer Work Phone: [facility] DO Work Phone: 08-02-2022 13:32-0400 Diastolic blood pressure 62 mm[Hg] Seema Aichholz Work Phone: [facility] 08-02-2022 13:32-0400 Heart rate 63 /min Seema Aichholz Work Phone: [facility] 08-02-2022 13:32-0400 Respiratory rate 18 /min Seema Aichholz Work Phone: [facility] 08-02-2022 13:32-0400 SaO2% (BldA) [Mass fraction] 100 % Seema Aichholz Work Phone: [facility] 08-02-2022 13:32-0400 Systolic blood pressure 122 mm[Hg] Seema Aichholz Work Phone: [facility] 08-02-2022 12:26-0400 Body height 147.32 cm Seema Aichholz Work Phone: [facility] 08-02-2022 12:26-0400 Body temperature 98.3 [degF] Seema Aichholz Work Phone: [facility] 08-02-2022 12:26-0400 Body weight 48.53 kg Seema Sutherland Work Phone: [facility] 06-23-2022 15:29-0400 Body height 147.32 cm Pratik A Naderer Work Phone: [facility] DO Work Phone: 06-23-2022 15:29-0400 Body mass index (BMI) [Ratio] 22.62 kg/m2 Pratik A Naderer Work Phone: [facility] DO Work Phone: 06-23-2022 15:29-0400 Body surface area Derived from formula 1.4 m2 Pratik A Naderer Work Phone: [facility] DO Work Phone: 06-23-2022 15:29-0400 Body weight 49.1 kg Pratik A Naderer Work Phone: [facility] DO Work Phone: 06-23-2022 15:29-0400 Diastolic blood pressure 60 mm[Hg] Pratik A Naderer Work Phone: [facility] DO Work Phone: 06-23-2022 15:29-0400 Heart rate 62 /min Pratik A Naderer Work Phone: [facility] DO Work Phone: 06-23-2022 15:29-0400 Systolic blood pressure 110 mm[Hg] Pratik A Naderer Work Phone: [facility] DO Work Phone: 05-11-2022 11:17-0400 Blood Pressure Location Med JENKINS [facility] 05-11-2022 11:17-0400 Diastolic blood pressure 63 mm[Hg] Med JENKINS [facility] 05-11-2022 11:17-0400 Heart rate 81 /min Med JENKINS [facility] 05-11-2022 11:17-0400 Respiratory rate 16 /min Med JENKINS [facility] 05-11-2022 11:17-0400 Systolic blood pressure 125 mm[Hg] Med JENKINS [facility] 03-24-2022 13:00-0400 Body height 147.32 cm Aba Giovanny Other [employer] Other 03-24-2022 13:00-0400 Body mass index (BMI) [Ratio] 22.28 kg/m2 Aba Giovanny Other [employer] Other 03-24-2022 13:00-0400 Body temperature 97.7 [degF] Aba Giovanny Other [employer] Other 03-24-2022 13:00-0400 Body weight 48.35 kg Aba Giovanny Other [employer] Other 03-24-2022 13:00-0400 Diastolic blood pressure 70 mm[Hg] Aba Giovanny Other [employer] Other 03-24-2022 13:00-0400 Respiratory rate 18 /min Aba Giovanny Other [employer] Other 03-24-2022 13:00-0400 SaO2% (BldA) [Mass fraction] 97 % Aba Giovanny Other [employer] Other 03-24-2022 13:00-0400 Systolic blood pressure 110 mm[Hg] Aba Giovanny Other [employer] Other 12-29-2021 11:00-0500 Body height 147.32 cm Pratik Meza Naderer Work Phone: [facility] [employer] [facility] DO Work Phone: 12-29-2021 11:00-0500 Body mass index (BMI) [Ratio] 22.99 kg/m2 Pratik A Naderer Work Phone: [facility] [employer] [facility] DO Work Phone: 12-29-2021 11:00-0500 Body surface area Derived from formula 1.41 m2 Pratik A Naderer Work Phone: [facility] [employer] [facility] DO Work Phone: 12-29-2021 11:00-0500 Body weight 49.9 kg Pratik A Naderer Work Phone: [facility] DO Work Phone: 12-29-2021 11:00-0500 Diastolic blood pressure 60 mm[Hg] Pratik A Naderer Work Phone: [facility] [employer] 250 DO Work Phone: 12-29-2021 11:00-0500 Heart rate 68 /min Pratik A Naderer Work Phone: [employer] 250 DO Work Phone: 12-29-2021 11:00-0500 Systolic blood pressure 110 mm[Hg] Pratik Tadeo Work Phone: [employer] DO Work Phone: 10-18-2021 14:30-0500 Body height 147.32 cm Alyssa Ginty Other [employer] Other 10-18-2021 14:30-0500 Body mass index (BMI) [Ratio] 22.99 kg/m2 Alyssa Ginty Other [employer] Other 10-18-2021 14:30-0500 Body temperature 97.9 [degF] Alyssa Ginty Other [employer] Other 10-18-2021 14:30-0500 Body weight 49.9 kg Alyssa Ginty Other [employer] Other 10-18-2021 14:30-0500 Diastolic blood pressure 49 mm[Hg] Alyssa Ginty Other [employer] Other 10-18-2021 14:30-0500 Respiratory rate 18 /min Alyssa Ginty Other [employer] Other 10-18-2021 14:30-0500 SaO2% (BldA) [Mass fraction] 98 % Alyssa Ginty Other [employer] Other 10-18-2021 14:30-0500 Systolic blood pressure 136 mm[Hg] Alyssa Ginty Other [employer] Other 09-07-2021 12:15-0500 Body height 147.32 cm Carie Keith Other [employer] Other 09-07-2021 12:15-0500 Body mass index (BMI) [Ratio] 22.49 kg/m2 Carie Keith Other [employer] Other 09-07-2021 12:15-0500 Body weight 48.81 kg Carie Keith Other [employer] Other 09-02-2021 13:40-0400 Body height 147.32 cm Aba Giovanny Other [employer] Other 09-02-2021 13:40-0400 Body mass index (BMI) [Ratio] 22.53 kg/m2 Aba Giovanny Other [employer] Other 09-02-2021 13:40-0400 Body temperature 96.9 [degF] Aba Giovanny Other [employer] Other 09-02-2021 13:40-0400 Body weight 48.9 kg Aba Giovanny Other [employer] Other 09-02-2021 13:40-0400 Diastolic blood pressure 72 mm[Hg] Aba Giovanny Other [employer] Other 09-02-2021 13:40-0400 Respiratory rate 18 /min Aba Giovanny Other [employer] Other 09-02-2021 13:40-0400 SaO2% (BldA) [Mass fraction] 98 % Aba Giovanny Other [employer] Other 09-02-2021 13:40-0400 Systolic blood pressure 110 mm[Hg] Aba Hidalgor Other [facility] [employer] Other Encounters Encounter Date Encounter Type Care Provider Facility Start: 10-16-2024 ambulatory Med JENKINS Facility :[facility] Start: 07-18-2024 End: 07-19-2024 Emergency department patient visit JACK VIVEROS [facility] Start: 07-18-2024 End: 07-18-2024 ambulatory [facility] Start: 06-13-2024 End: 06-13-2024 ambulatory SERGIO VENTURA Not Available Start: 04-10-2024 End: 04-10-2024 ambulatory Med JENKINS Facility:[facility] Start: 04-10-2024 End: 04-10-2024 Patient encounter procedure Med JENKINS [facility] Start: 03-20-2024 End: 03-20-2024 ambulatory BERNARD JAMESR Not Available Start: 03-11-2024 End: 03-11-2024 ambulatory SEEMA AICChrisHOLZ Not Available Start: 03-07-2024 End: 03-07-2024 ambulatory [facility] Work Phone: Start: 03-07-2024 End: 03-07-2024 Patient encounter procedure [facility] Hospital Physician [facility] Nephrology Steve Work Phone: Start: 02-27-2024 Non-patient / Non-visit [facility] Work Phone: Start: 02-26-2024 End: 02-26-2024 ambulatory Med JENKINS Facility:[facility] Start: 02-26-2024 End: 02-26-2024 Patient encounter procedure Med JENKINS [facility] Start: 11-13-2023 End: 12-19-2023 Pre-admission assessment Med JENKINS [facility] Start: 11-13-2023 End: 11-13-2023 ambulatory Med JENKINS Facility:[facility] Start: 11-13-2023 End: 11-13-2023 Patient encounter procedure Med JENKINS [facility] Start: 10-03-2023 ambulatory Med JENKINS Facility:[facility] Start: 09-27-2023 End: 09-27-2023 ambulatory Med JENKINS Facility:[facility] Start: 09-27-2023 End: 09-27-2023 Patient encounter procedure Med JENKINS [facility] Start: 08-16-2023 End: 08-16-2023 ambulatory Med JENKINS Facility:[facility] Start: 08-16-2023 End: 08-16-2023 Lab Drop off Med JENKINS [facility] Start: 08-16-2023 End: 08-16-2023 ambulatory Med JENKINS Facility:[facility] [place] Start: 08-16-2023 End: 08-16-2023 Patient encounter procedure Med JENKINS [facility] Start: 07-20-2023 Office outpatient visit 25 minutes Pratik Derrick Tadeo Work Phone: [facility] 250 DO Work Phone: Start: 07-20-2023 ambulatory Donna Turcios Facility : Start: 07-05-2023 End: 07-05-2023 ambulatory Seema Sutherland Facility:[facility] Start: 07-05-2023 End: 07-05-2023 ambulatory Seema Sutherland Work Phone: [facility] Work Phone: Start: 07-05-2023 End: 07-05-2023 Patient encounter procedure Seema Sutherland Work Phone: [facility] [address] Work Phone: Start: 05-25-2023 End: 05-25-2023 ambulatory Aba Giovanny Other [employer] Other Start: 05-25-2023 Telephone encounter Aba Giovanny [facility] Start: 05-11-2023 End: 05-11-2023 ambulatory Med JENKINS Facility:[facility] Start: 05-11-2023 End: 05-11-2023 Patient encounter procedure Med JENKINS [facility] Start: 05-08-2023 End: 05-08-2023 ambulatory Aba Giovanny Other [employer] Other Start: 05-08-2023 Telephone encounter Aba Giovanny [facility] Start: 02-08-2023 End: 02-08-2023 ambulatory Madhav Conrad Other [employer] Other Start: 02-08-2023 Patient encounter procedure Madhav Conrad [facility] Start: 01-12-2023 ambulatory Donna Turcios Facility : Start: 01-12-2023 Office outpatient visit 25 minutes Pratik Derrick Cárdenasr Work Phone: [facility] 250 DO Work Phone: Start: 11-30-2022 End: 11-30-2022 ambulatory Aba Giovanny Other [employer] Other Start: 11-30-2022 Telephone encounter Aba Giovanny [facility] Start: 11-29-2022 End: 11-30-2022 ambulatory ECOLOGIST SEEMA SUTHERLAND Facility:[facility] Start: 08-03-2022 End: 08-03-2022 ambulatory Madhav Conrad Other [facility] [employer] Other Start: 08-03-2022 Telephone encounter Madhav CAMERON [facility] Start: 08-02-2022 End: 08-02-2022 ambulatory Seema Musa Lancechrisabbeyumer Facility:[facility] Start: 08-02-2022 End: 08-02-2022 Admission to same day surgery center Seema Lancechrisabbeyumer Work Phone: [facility] Start: 08-02-2022 End: 08-02-2022 ambulatory Seema Musa Lancechrisabbeyumer Work Phone: [facility] Work Phone: Start: 07-29-2022 End: 07-29-2022 ambulatory Madhav Padillatim Facility:[facility] Start: 07-29-2022 End: 07-29-2022 Patient encounter procedure Seema Sutherland Work Phone: [facility]-Pre-Surgical Testing Start: 07-13-2022 Rx Renewal Pratik Cárdenasr Work Phone: [facility] 250 DO Work Phone: Start: 07-11-2022 End: 07-12-2022 ambulatory ECOLOGIST SEEMA SUTHERLAND Facility:[facility] Start: 06-23-2022 Office outpatient visit 25 minutes Pratik A Naderer Work Phone: [facility] 250 DO Work Phone: Start: 06-22-2022 End: 06-22-2022 Patient encounter procedure Med JENKINS [facility] Start: 06-15-2022 End: 06-16-[address] DONNA TURCIOS Facility:[facility] Start: 05-23-2022 End: 05-23-2022 Patient encounter procedure Med JENKINS [facility] Start: 05-17-2022 End: 05-17-2022 Lab Drop off Med Yanelis JENKINS [facility] Start: 05-17-2022 End: 05-17-2022 Patient encounter procedure Med JENKINS [facility] [employer] Start: 05-11-2022 End: 05-11-2022 Patient encounter procedure Med JENKINS [facility] [employer] Start: 04-20-2022 End: 04-21-2022 ambulatory ECOLOGIST SEEMA LANCEChrisPONCHO Facility:[facility] Start: 03-24-2022 End: 03-24-2022 ambulatory Aba Giovanny Other [facility] [employer] Other Start: 03-24-2022 Office outpatient visit 25 minutes Aba Giovanny [facility] Start: 03-23-2022 End: 03-23-2022 ambulatory RODERICK KONG Facility:[facility] Start: 03-23-2022 End: 03-24-2022 ambulatory ABA GIOVANNY Facility:[facility] Start: 03-22-2022 End: 03-23-2022 ambulatory ABA GIOVANNY [facility] [employer] Other Start: 03-22-2022 Telephone encounter Aba Giovanny [facility] Start: 12-29-2021 Office outpatient visit 25 minutes Pratik Tadeo Work Phone: [place] [address] DO Work Phone: Start: 10-18-2021 End: 10-18-2021 ambulatory Alyssa Janee Other [employer] Other Start: 10-18-2021 Office outpatient visit 15 minutes Alyssa Janee [facility] Start: 09-07-2021 End: 09-07-2021 ambulatory Carie Inna Other [employer] Other Start: 09-07-2021 Office outpatient visit 15 minutes Carie Keith [facility] Start: 09-02-2021 End: 09-02-2021 ambulatory Aba Giovanny Other [employer] Other Start: 09-02-2021 Office outpatient visit 25 minutes Aba Giovanny [facility] Start: 03-03-2021 End: 03-03-2021 Patient encounter procedure Bean Cantu Work Phone: [facility] Start: 02-17-2021 End: 02-17-2021 Patient encounter procedure Bean Cantu Work Phone: -Pre-Surgical Testing Start: 02-04-2021 End: 02-04-2021 Patient encounter procedure Bean Cantu Work Phone: [facility] [address] Start: 02-03-2021 End: 02-03-2021 Patient encounter procedure Bean Cantu Work Phone: [facility] Start: 01-29-2018 Ambulatory [facility] Facility :[id number] Procedures Date Procedure Procedure Detail Performing Clinician Start: 07-05-2023 Plain X-ray of bilateral calcanei Seema A sindy Work Phone: Start: 07-05-2023 X-ray of both feet Seema Koko Work Phone: Start: 08-02-2022 Esophagogastroduodenoscopy Seema Koko Work Phone: Start: 04-05-2021 Arthroplasty of knee Med JENKINS Comment on above: LEFT Start: 03-03-2021 Plain X-ray of left femur Bean Cantu Work Phone: Start: 02-17-2021 Urine culture Bean Cantu Work Phone: Start: 02-04-2021 Plain X-ray of left hand Bean Cantu Work Phone: Start: 02-04-2021 X-ray of left foot Bean Cantu Work Phone: Start: 02-03-2021 X-ray of left knee Bean Cantu Work Phone: Angioplasty of blood vessel Pratik Tadeo Work Phone: Appendectomy Pratik Tadeo Work Phone: Appendectomy Med JENKINS Arthroplasty of knee Pratik Tadeo Work Phone: Arthroplasty of knee Med JENKINS Comment on above: Right Bilateral tubal ligation Rodrick fieldstim JENKINS Cholecystectomy Pratik sawyer Work Phone: Colonoscopy Med JENKINS Colostomy Pratik Tadeo Work Phone: Extraction of cataract Waldemar boykin TRINA Comment on above: B/L H/O: artificial joint Status pos t knee replacement Seema Koko Work Phone: History of operative procedure on knee Bean Cantu Work Phone: History of operative procedure on knee Aba Giovanny Other Hysterectomy Pratik A Mickerer Work Phone: Hysterectomy Med JENKINS Ligation of fallopian tube M kelsey Cárdenasr Work Phone: Operation on bladder Pratik Cárdenasr Work Phone: Total colonoscopy Pratik Meza Nad erer Work Phone: Plan of Treatment Date Care Activity Detail Author Start: 07-20-2023 FUV, Provider: Donna Turcios, Status: Pen, Time: 10:20 AM FUV, Provider: Donna Turcios, Status: Pen, Time: 10:20 AM [facility] 250 DO Work Phone: Start: 01-12-2023 FUV, Provider: Donna Turcios, Status: Pen, Time: 10:50 AM FUV, Provider: Donna Turcios, Status: Pen, Time: 10:50 AM [facility] 250 DO Work Phone: Start: 08-02-2022 [facility] Start: 07-12-2022 FUV, Provider: Donna Turcios, Status: Pen, Time: 10:50 AM [facility], Provider: Donna Turcios, Status: Pen, Time: 10:50 [facility] Work Phone: Start: 02-17-2021 Bacteria identified in Urine by Culture Urine Culture [facility] Patient Education Gastritis (DC) Omeprazole [facility] Work Phone: Renal function 2000 panel - Serum or Plasma [facility] Immunizations Immunization Date Immunization Notes Care Provider Zain khan 06-30-2023 influenza virus vacc ine, unspecified formulation Med JENKINS [facility] 09-17-2021 Pfizer-BioNTech COVI D-19 Vacc 30 MCG/0.3ML Intramuscular Suspension Pratik Meza Mickjobyr Work Phone: [facility] 09-08-2021 influenza virus vacc ine, unspecified formulation Med JENKINS [facility] 09-08-2021 Influenza, injectabl e, Madin Mei Canine Kidney, preservative free, quadrivalent Pratik A Naderer Work Phone: [place] [address] DO Work Phone: 01-05-2021 Moderna COVID-19 Vac cine 100 MCG/0.5ML Intramuscular Suspension Pratik A Naderer Work Phone: [facility] 12-07-2020 Moderna COVID-19 Vac cine 100 MCG/0.5ML Intramuscular Suspension Pratik A Naderer Work Phone: [facility] 08-11-2020 influenza virus vacc ine, unspecified formulation Med JDCPhosphate [facility] 08-11-2020 influenza, injectabl e, quadrivalent, preservative free Pratik A Naderer Work Phone: [place] [address] DO Work Phone: 08-11-2020 pneumococcal polysaccharide vaccine, 23 valent Pratik A Naderer Work Phone: [facility] 06-30-2020 influenza virus vacc ine, unspecified formulation Pratik A Naderer Work Phone: [facility] 07-30-2019 influenza virus vacc ine, unspecified formulation Pratik A Naderer Work Phone: [place] [address] DO Work Phone: 07-16-2019 influenza virus vacc ine, unspecified formulation MedVoxli [facility] 07-16-2019 influenza, injectabl e, quadrivalent, preservative free Pratik A Naderer Work Phone: [place] [address] DO Work Phone: 08-09-2018 influenza virus vacc ine, unspecified formulation Med JENKINS [facility] 08-09-2018 influenza, high dose seasonal, preservative-free Pratik A Naderer Work Phone: [facility] 250 DO Work Phone: 07-30-2018 influenza virus vacc ine, unspecified formulation Pratik A Naderer Work Phone: [facility] 250 DO Work Phone: 08-11-2017 influenza virus vacc ine, unspecified formulation Med JENKINS [facility] 08-11-2017 influenza, high dose seasonal, preservative-free Pratik A Naderer Work Phone: [place] [address] DO Work Phone: 07-30-2017 influenza virus vacc ine, unspecified formulation Pratik A Naderer Work Phone: [place] [address] DO Work Phone: 08-02-2016 influenza virus vacc ine, unspecified formulation Med JENKINS [facility] 08-02-2016 influenza, high dose seasonal, preservative-free Pratik A Naderer Work Phone: [facility] 250 DO Work Phone: 06-30-2016 influenza virus vacc ine, unspecified formulation Pratik A Naderer Work Phone: [facility] 250 DO Work Phone: 01-08-2016 pneumococcal conjuga te vaccine, 13 valent Pratik A Naderer Work Phone: [facility] 07-21-2015 influenza virus vacc ine, unspecified formulation Pratik A Naderer Work Phone: [place] [address] DO Work Phone: 07-21-2015 pneumococcal polysaccharide vaccine, 23 valent Pratik A Naderer Work Phone: [facility] 250 DO Work Phone: 07-17-2015 influenza virus vacc ine, unspecified formulation Med JENKINS [facility] 07-17-2014 influenza virus vacc ine, unspecified formulation Med JENKINS [facility] 07-17-2014 influenza, high dose seasonal, preservative-free Pratik A Naderer Work Phone: [place] [address] DO Work Phone: 08-07-2012 influenza virus vacc ine, unspecified formulation Med JENKINS [facility] 08-07-2012 influenza, seasonal, injectable, preservative free Pratik A Naderer Work Phone: [place] [address] DO Work Phone: 06-04-2012 tetanus toxoid, redu ruby diphtheria toxoid, and acellular pertussis vaccine, adsorbed Pratik A Naderer Work Phone: [facility] 09-16-2010 influenza virus vacc ine, unspecified formulation Med JENKINS [facility] 09-16-2010 influenza, seasonal, injectable Pratik A Naderer Work Phone: [place] [address] DO Work Phone: Payers Date Payer Category Payer Private Health Insurance [id number] 2022 Self-pay [id number] 1959 Medicare [id number] 1959 Unknown [id number] 1940 Unknown [id number] 2.16.84 0.1.097644.3.579.2.593 1940 Unknown [id number] 2.16.84 0.1.142854.3.579.2.593 1940 Unknown [id number] 2.16.84 0.1.306923.3.579.2.593 1940 Unknown [id number] 2.16.84 0.1.781388.3.579.2.593 1940 Unknown [id number] 2.16.84 0.1.000404.3.579.2.593 1940 Unknown [id number] 2.16.84 0.1.301464.3.579.2.593 1940 Unknown [id number] 2.16.84 0.1.868678.3.579.2.593 1940 Unknown [id number] 2.16. 840.1.134631.3.579.2.356 1940 Unknown [id number] 2.16. 840.1.891134.3.579.2.356 1940 Unknown [id number] 2.16.8 40.1.051574.3.579.2.727 1940 Unknown [id number] 2.16.8 40.1.343950.3.579.2.727 1940 Unknown [id number] 2.16.8 40.1.443204.3.579.2.727 1940 Unknown [id number] 2.16.8 40.1.842673.3.579.2.727 1941 Unknown [id number] 2.16.8 40.1.295757.3.579.2.727 194 Unknown [id number] 2.16.8 40.1.654064.3.579.2.727 1940 Unknown [id number] 2.16.8 40.1.060856.3.579.2.727 194 Unknown [id number] 2.16.8 40.1.917540.3.579.2.727 1940 Unknown [id number] 2.16.84 0.1.564812.3.579.2.1259 1940 Unknown [id number] 2.16.84 0.1.681658.3.579.2.1259 1940 Unknown [id number] 2.16.84 0.1.758231.3.579.2.1259 1940 Unknown [id number] 2.16.8 40.1.124315.3.579.2.1244 1940 Unknown [id number] 2.16.8 40.1.967786.3.579.2.1286 1940 Unknown [id number] 2.16.8 40.1.242819.3.579.2.1286 1940 Unknown [id number] 2.16.8 40.1.702546.3.579.2.1286 194 Unknown [id number] 2.16.8 40.1.651851.3.579.2.1286 194 Unknown [id number] 2.16.8 40.1.446501.3.579.2.1286 Medicare [id number] Unknown [id number] Unknown Unknown [id number] 2.16.8 40.1.600261.3.579.2.531 Unknown [id number] 2.16.8 40.1.235570.3.579.2.531 Unknown [id number] 2.16.8 40.1.513429.3.579.2.531 Social History Date Type Detail Facility Start: 02-17-2021 End: 04-10-2024 Tobacco smoking status NHIS Never smoked tobacco (finding) [facility] Start: 1940 Sex Assigned At Female F [facility] No alcohol use No alcohol use -[facility] 250 DO Work Phone: Sex Assigned At [facility] [employer] Other Tobacco smoking status Never [facility] Procedure Code Equipment Code Equipment [...] knee, total, minimally invasive Orthopaedic cement, non-medicated ()[id number] FDA Start: 03-09-2021 Arthroplasty, knee, total, minimally invasive Uncoated knee femur prosthesis, metallic ()[id number] FDA Start: 03-09-2021 Arthroplasty, knee, total, minimally invasive Polyethylene patella prosthesis ()[id number] FDA Start: 03-09-2021 Arthroplasty, knee, total, minimally invasive Tibial insert ()[id number] FDA Start: 03-09-2021 Arthroplasty, knee, total, minimally invasive Uncoated knee tibia prosthesis, metallic ()[id number] FDA Start: 03-09-2021 Arthroplasty, knee, total, minimally [...] Facility 04-10-2024 Functional Status N/A [facility] 02-26-2024 Functional Status N/A [facility] 09-27-2023 Functional Status N/A [facility] 08-16-2023 Functional Status N/A [facility] 05-11-2023 Functional Status N/A [facility] 06-22-2022 Functional Status N/A [facility] 05-19-2022 Functional Status N/A [facility] 05-11-2022 Functional Status N/A [facility] Clinical Notes 09-02-2021 to 04-10-2024 Note [...] (electrical nerve stimulation). ?For women, using a biomedical photographer to prevent urine leaks. This is a [...] right after experiencing incontinence. General instructions Take sold-wds-jnwqtxh and prescription medicines only as told by [...] important. Where to find more information [place] of Diabetes and Digestive and Kidney Diseases: www.niddk.nih.gov [place] [employer]: www.urologyhealth.org Contact a health care [...] provider. Document Revised: 05/21/2021 Document Reviewed: 05/21/2021 [employer] Patient Education 2022 [employer]. Follow Up Care 02/26/2024 13:52:27 With:TRINA WATSON, Med Hilario, URL Address: [address] [place] [address]- When: Unknown [facility] 02-26-2024 Hospital Discharg e instructions Patient [...] degrees. Follow Up Care 11/13/2023 15:16:14 With:Med JENKINS Address: [address] [place], [place] [id number] Business (1) When:6 weeks Comments:Call for followup appointment, with a bladder scan at that visit to check for bladder emptying. [facility] 02-26-2024 Note [id number] [facility] 02-26-2024 Note Cystoscopy with Boto x [...] you have a fever over 100 degrees. 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 [facility]11-29-2023 Hospital Discharge instructions Patient Education 09/27/2023 [...] (electrical nerve stimulation). ?For women, using a biomedical photographer to prevent urine leaks. This is a [...] right after experiencing incontinence. General instructions Take yiza-uyq-wyoijms and prescription medicines only as told by [...] important. Where to find more information [place] of Diabetes and Digestive and Kidney Diseases: www.niddk.nih.gov [place] [employer]: www.urologyhealth.org Contact a health care [...] provider. Document Revised: 05/21/2021 Document Reviewed: 05/21/2021 [employer]aven Patient Education 2022 [employer]. Follow Up Care 08/16/2023 10:31:24 With:TRINA WATSON, Med Hilario, URL Address: [address] [place], [place] [id number]- When: Unknown [facility] 10-18-2023 Hospital Discharge instructions Patient Education 08/16/2023 [...] Treatment for this condition includes: Antibiotic medicine. Pdey-shr-ncdryvr medicines to treat discomfort. Drinking enough water [...] Follow these instructions at home: Medicines Take drlp-wfb-ktjldox and prescription medicines only as told by [...] provider. Document Revised: 05/28/2021 Document Reviewed: 05/28/2021 Elsevier Patient Education 2022 [employer]ulus. Follow Up Care 05/11/2023 08:07:36 With:Med JENKINS MD, URL Address: [address] [place] [address] [address]- When: Unknown [facility] 07-27-2023 Evaluation note* Encounter Date Diagnosis Assessment Notes Treatment Notes Treatment Clinical Notes Apr, Hypomagnesemia (ICD-10 - E83.42) [employer] Other 07-13-2023 Hospital Discharge instructions Patient Education [...] degrees. Follow Up Care 04/12/2023 15:40:50 With:Med JENKINS Address: [address] [place] [address] [address] Business (1) When:3 months Comments:Call for followup appointment, with bladder scan checking for residual urine at that visit. [facility]07-13-2023 Note [id number]:[email or web address] [facility] 05-11-2023 NoteCystoscopy with Botox injection ? [...] if you have a fever over 100 degrees.Sapp [facility] 05-08-2023 Evaluation note* Encounter Date Diagnosis Assessment Notes Treatment Notes Treatment Clinical Notes Apr, Hypomagnesemia (ICD-10 - E83.42) [facility] Other 04-12-2023 Evaluation note* Encounter Date Diagnosis Assessment Notes Treatment Notes Treatment Clinical Notes Jan, Early satiety (ICD-10 - R68.81) Jan, Gastritis (ICD-10 - K29.70) Continue Omeprazole as directed Rto 1 yr Jan, Borborygmi (ICD-10 - R19.8) [facility] Other 10-04[facility]20[facility] Discharge instructions Patient Education 06/22/2022 [...] (electrical nerve stimulation). For women, using a biomedical photographer to prevent urine leaks. This is a [...] right after experiencing incontinence. General instructions Take ghbx-fdp-kctanqe and prescription medicines only as told by [...] 11/23/2005 Document Revised: 10/26/2018 Document Reviewed: 01/25/2018 Maven Patient Education 2020 [employer]. 06/22/2022 13:02:35 Kegel Exercises Kegel Exercises Kegel [...] 10/02/2013 Document Revised: 06/05/2019 Document Reviewed: 06/05/2019 Maven Patient Education 2020 [employer]. Follow Up Care 05/23/2022 15:12:51 With:TRINA WATSON, Med Hilario, URL Address: When:Within 6 Month(s) Comments:w/PVR [facility] 07-25-2022 Hospital Discharge instructions Patient Education [...] degrees. Follow Up Care 05/11/2022 11:39:36 With:Med JENKINS Address: [address] [place] [address] [facility] (1) When:2 to 4 weeks Comments:Call for followup appointment, and a bladder scan to check bladder emptying will be performed at that visit. [facility]07-13-2022 Hospital Discharge instructions Patient Education 05/11/2022 [...] fried and sweet foods. General instructions Take saig-hqh-yukffmv and prescription medicines only as told by [...] 08/12/2010 Document Revised: 02/06/2020 Document Reviewed: 11/01/2018 [employer] Patient Education 2020 [employer] Follow Up Care 12/27/2021 11:50:32 With:TRINA WATSON, Med Hilario, URL Address: [address] [place], [place] [id number]- When: Unknown [facility] 05-26-2022 Evaluation note* Encounter Date Diagnosis [...] of cardiac arrest due to the hypokalemia [facility] Other 12-20-2021 Evaluation note* Encounter Date Diagnosis Assessment Notes Treatment Notes Treatment Clinical Notes Sep, Abnormal skin growth (ICD-10 - D49.2) Will send to derm for further evaluation and treatment. Advised patient that area will likely need to be removed. Message sent to sales and catering coordinator to schedule and make appointment for patient. Area covered with silvadine cream in office with non adherent telfa and coban. Advised patient not to pick at area. Immediate evaluation in ER for signs of infection, including, fever, red streaking, foul odor, any new or worsening symptoms. Patient verbalizes understanding and is agreeable with treatment plan [facility] Other 11-09-2021 Evaluation note* Encounter Date Diagnosis Assessment Notes Treatment Notes Treatment Clinical Notes Aug, Arthritis of left knee (ICD-10 - M17.12) Patient is progressing well. Continue physical therapy exercises and TKA precautions. Instructed patient to call with any questions or concerns. 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 [facility] Other Evaluation + Plan note Future Appointments Appointment Date:05/16/2022 10:00:00 AM Scheduled Provider: Location:[facility] Appointment Type:Urology CALL PAT FT Appointment Date:05/23/2022 02:30:00 PM Scheduled Provider: Location:[facility] Appointment Type:Urology FT [facility] Evaluation + Plan note Future Appointments Appointment Date:05/23/2022 02:30:00 PM Scheduled Provider: Location:[facility] Appointment Type:Urology FT [facility] Evaluation + Plan note Future Appointments Appointment Date:05/23/2022 02:30:00 PM Scheduled Provider: Location:[facility] Appointment Type:Urology FT Diagnostic Tests Pending * [facility] App[facility]ments Appointment Date:06/22/2022 11:45:00 AM Scheduled Provider:Med JENKINS MD Location:[facility]ment [facility] Future Appointments Appointment Date:12/14/2022 11:15:00 AM Scheduled Provider:Med JENKINS MD Location:[facility] Appointment Type:URO Office Visit [facility] Evaluation + Plan note Future Appointments Appointment Date:08/16/2023 09:30:00 AM Scheduled Provider:Med JENKINS MD Location:[facility] App[facility]ment [facility] Future Appointments Appointment Date:09/27/2023 01:00:00 PM Scheduled Provider:Med JENKINS MD Location:[facility] Appointment Type:URO Office Visit Diagnostic Tests Pending * Urine Culture [facility] Future Appointments Appointment Date:09/27/2023 01:00:00 PM Scheduled Provider:Med JENKINS MD Location:[facility] Appointment Type:URO Office Visit [facility] Evaluation + Plan note Future Appointments Appointment Date:10/31/2023 09:45:00 AM Scheduled Provider: Location:[facility] Appointment Type:Urology CALL PAT FT Appointment Date:11/13/2023 02:45:00 PM Scheduled Provider: Location:[facility] Appointment Type:Urology FT [facility] Evaluation + Plan note Future Appointments Appointment Date:04/10/2024 10:00:00 AM Scheduled Provider: Location:[facility]ment [facility] Future Appointments Appointment Date:10/16/2024 01:00:00 PM Scheduled Provider:Med JENKINS MD Location:[facility] Appointment Type:URO Office Visit [facility] Evaluation noteNo Assessments Information Available [facility] Information[facility]ort [facility] Other Evaluation noteNo assessment information available [facility] Work Phone: Evaluation note* Diagnosis Onset Date Resolution Status Hypomagnesemia acute CAD (coronary artery disease) chronic Hyperlipidemia chronic Hypokalemia resolved [facility] Work Phone: History and physical note Author Madhav Conrad [facility] August 02, 2022 12:52pm Note Date/Time August 02, 2022 12 :52pm [facility] [address] [place] [address] Gastroenterology H&P Signed Patient: Narciso Velasquez MR#: [id number] : 1940 Acct:[id number] Age/Sex: 81 / F Adm Date: 2 Loc: Room: Type: [facility] Attending Dr: Madhav Conrad MD Copies to: MD Seema Ribera, DIRECTOR OF INFECTION PREVENTION-C~ Date of Service: 08/02/2022 HISTORY & PHYSICAL: [...] signed by Madhav Conrad MD> 08/02/22 1252 [facility] Work Phone: History general Narrative [...] heart attack 11/2016 Hospitalization History SEE ABOVE [facility] Other Hospital course Narrative No data available for this section [facility] Hospital Discharge instructions No data available for this section [facility] Hospital Discharge instructions Additional Instructions DISCHARGE [...] NOT operate machinery such as power tools, [employer] mowers, [employer], [employer] machines, etc. for 24 hours. - Avoid [...] Follow up with PCP. - Office number [phone].[facility] Work Phone: Progress note No data available for this section [facility] Summary Purpose Family History No Family [...] Date/ Time Advance Directives No January 24 018 1:55pm Chief Complaint and Reason for Visit [...] by rheumatology locally, currently stable * Donna Turcios MD, FACC * NARCISO VELASQUEZ is being [...] by rheumatology locally, currently stable * Donna Turcios MD, FACC * NARCISO VELASQUEZ is being seen for a 6 month follow-up of. * Patient is in the office for follow-up for the problems noted below. Since her last visit may she remained angina free her main concern [...] by rheumatology locally, currently stable * Donna Turcios MD, FACC * NARCISO VELASQUEZ is being seen for a 6 month follow-up of. * Patient is in the office for follow-up for the problems noted below. Since her last visit may she remained angina free her main concern [...] by rheumatology locally, currently stable * Donna Turcios MD, FACC * NARCISO VELASQUEZ is being [...] by rheumatology locally, currently stable * Donna Turcios MD, FACC Reason for Referral Reason Abnormal Growth Left Arm, bleeding, firm, tender/painful at times Diagnosis 1 Abnormal skin growth (D49.2) Referral Organization [facility] [address] Referring Provider First Name Alyssa Referring Provider Last Name Janee Referring Provider Specialty Nurse Pract itioner Referred Organization [facility] Referred Provider Castillo Mcgowan Thomas Referred Address ,[place], [place],[address] Referred Provider Specialty Dermatology Referral Priority Routine General Notes Xochitl Craig 021 02:26:04 PM >Received today and sent P2P even though the notes are not locked Additional Source Comments INFORMATION SOURCE (unrecogn ized section and content) DATE CREATED AUTHOR 04/19/2018 [facility] DATE CREATED AUTHOR AUTHOR'S ORGANIZ ATION 03/15/2020 [facility] DATE CREATED AUTHOR AUTHOR'S ORGANIZ ATION 12/01/2022 [facility] DATE CREATED AUTHOR AUTHOR'S ORGANIZ ATION 07/15/2023 [facility] DATE CREATED AUTHOR AUTHOR'S ORGANIZ ATION 07/22/2023 [facility] ical Center DATE CREATED AUTHOR AUTHOR'S ORGANIZ ATION 07/22/2023 [facility] DATE CREATED AUTHOR AUTHOR'S ORGANIZ ATION 04/13/2024 [facility] DATE CREATED AUTHOR AUTHOR'S ORGANIZ ATION 06/15/2024 [facility] EPIC DATE CREATED AUTHOR AUTHOR'S ORGANIZ ATION 07/20/2024 [facility] DATE CREATED AUTHOR AUTHOR'S ORGANIZ ATION 07/21/2024 [facility] REASON FOR VISIT (unrecogniz ed section and [...] BE BASED ON THE PRIMARY CLINICAL RECORDS. [facility], [facility]. provides no warranty or guarantee of the accuracy or completeness of information in this document.
--- NOTE | 2024-08-07 12:17 | CT_ITS ---
The [address] [address] Patient Name: NARCISO VELASQUEZ MRN: [id number] date: 1940 Sex: F Assigned Patient Location: ER Current Patient Location: Accession/Order Number: [id number] Exam Date: 08/07/2024 12:20 Report Date: 08/07/2024 12:38 At the request of: DELFINO GUPTA Procedure: CT head/brain wo con EXAMINATION: CT head/brain wo con HISTORY: R side weakness , dizziness; history of cervical fracture COMPARISON: No relevant comparison available. TECHNIQUE: Axial CT images were obtained without IV contrast. Dose reduction techniques were achieved by using automated exposure control and/or adjustment of mA and/or kV according to patient size and/or use of iterative reconstruction technique. FINDINGS: BRAIN: No edema, hemorrhage, mass, acute infarction, or inappropriate atrophy. CSF SPACES: No hydrocephalus, subarachnoid hemorrhage, or mass. Appropriate for age. SKULL: No fracture, mass, or other significant visible lesion. SINUSES: No significant mucosal thickening or fluid on the limited views. ORBITS: No appreciable abnormality on the limited views. OTHER: Negative CT/CT head/brain wo con IMPRESSION: 1. No intracranial hemorrhage or appreciable acute abnormality. 2. Age consistent chronic changes. Electronically authenticated by: JAYLEEN GREER Date: 08/07/2024 12:38
[2024-08-07 12:31] LABS: Basophils Percent Auto 0.4 % (0.2-2.0); Eosinophils Absolute Auto 0.1 10^3/uL (0.0-0.7); Eosinophils Percent Auto 1.4 % (0.9-7.0); Hematocrit 35.6 % (36.0-48.0); Hemoglobin 11.6 g/dL (12.0-16.0); Immature Granulocytes Abs Auto 0.02 10^3/uL (0.00-0.03); Immature Granulocytes Pct Auto 0.3 % (0.0-0.5); Lymphocytes Absolute Auto 0.9 10^3/uL (1.2-3.8); Lymphocytes Percent Auto 10.9 % (20.5-60.0); Mean Corpuscular HGB Conc 32.6 g/dL (29.9-35.2); Mean Corpuscular Volume 98.1 fL (81.0-99.0); Mean Platelet Volume 9.8 fL (9.5-13.5); Monocytes Absolute Auto 0.6 10^3/uL (0.3-0.8); Neutrophils Absolute Auto 6.3 10^3/uL (1.4-6.5); Platelet Count 186 10^3/uL (150-450); Red Blood Count 3.63 10^6/uL (4.20-5.40); Red Cell Distribution Width 13.5 % (11.0-15.0); White Blood Count 7.9 10^3/uL (4.0-11.0)
[2024-08-07 12:49] LABS: Alanine Aminotransferase 20 U/L (14-59); Albumin Level 3.5 g/dL (3.4-5.0); Alkaline Phosphatase 75 U/L (46-116); Anion Gap 13.9; Aspartate Amino Transferase 27 U/L (15-37); BUN Creatinine Ratio 15.3; Bilirubin Total 0.5 mg/dL (0.2-1.0); Calcium 6.8 mg/dL (8.5-10.1); Carbon Dioxide 27.5 mmol/L (21.0-32.0); Chloride 102 mmol/L (98-107); Estimated GFR (African America >60 (>=60 mL/min/1.73m^2); Estimated GFR (Non-African Ame >60 (>=60 mL/min/1.73m^2); Globulin 3.6 g/dL; Glucose 97 mg/dL (74-106); Potassium 3.4 mmol/L (3.5-5.1); Sodium 140 mmol/L (136-145); Total Protein 7.1 g/dL (6.4-8.2)
[2024-08-07 12:52] LABS: Troponin I High Sensitivity 6.3 pg/mL (4.0-51.3)
[2024-08-07 12:53] LABS: Lactate/Lactic Acid 1.1 mmol/L (0.4-2.0)
[2024-08-07 13:01] LABS: Internal Control Within Normal Limits; SARS-CoV-2 Ag POSITIVE (NEGATIVE)
[2024-08-07] MEDS: ACETAMINOPHEN 325 MG TABLET 650 MG PO (13:28)
--- NOTE | 2024-08-07 13:30 | ED_ITS ---
HPI HPI - General Adult General Chief complaint: Weakness Stated complaint: GENERAL WEAKNESS/ UPPER EXTREMITY PAIN Time Seen by Provider: 08/07/24 11:44 Source: patient Mode of arrival: Wheelchair Limitations: no limitations History of Present Illness HPI narrative: Patient presents to ED complaining of weakness. She was actually sent in by her nurse practitioner for generalized weakness and diarrhea. Nurse practitioner states that it has been difficult for the to care for her at home because she has had increased weakness. Patient has a history of Parkinson's disease and the helps care for her at home. The states she has been falling a lot more recently and she is also been having a lot of diarrhea recently. Patient reports increased weakness worse on the right side and increased tremors that are worse on the right upper extremity and right lower extremity. Patient states she does not usually have tremors this bad but they have been increasing over the past couple of days. She denies any head injury. No nausea or vomiting. She does report some achiness in her joints. Denies any cough or shortness of breath Related Data Allergies Allergy/AdvReac Type Severity Reaction Status Date / Time No Known Drug Allergies Allergy Verified 08/07/24 11:58 Opioid HPI Opioid Management Most Recent Opioid Data: Last Pain Scale 9 08/07/24 13:28 Last MAR Pain Assessment 08/07/24 13:28 Review of Systems ROS Status of ROS 10 or more systems reviewed and unremark able except as noted in history and below PFSH PFSH Social History Little interest or pleasure in doing things: not at all Feeling down, depressed, or hopeless: not at all Exam Narrative Exam Narrative: Time Seen: [] Vital Signs: [Per nurse's notes.] General: [Alert]Slightly lethargic Skin: [Warm, dry, no rash.] Head: [Normocephalic, atraumatic.] Neck: [Supple, trachea midline.] Eye: [Pupils are equal, round and reactive to light, extraocular movements are intact, normal conjunctiva.] Ears, nose, mouth and throat: oral mucosa dry Cardiovascular: [Regular rate and rhythm, no murmur.] Respiratory: [Lungs are clear to auscultation, respirations are non-labored, breath sounds are equal.] Chest wall: [No tenderness, no deformity.] Gastrointestinal: [Soft, nontender, non distended, normal bowel sounds.] MSK: 4 out of 5 muscle strength x 4 extremities no calf pain or edema. Tremors worse in the right upper extremity and right lower extremity Lymphatics: [No lymphadenopathy.] Psychiatric: [Cooperative, appropriate mood & affect.] Neurological: [Alert and oriented to person, place, time, and situation, no focal neurological deficit observed.] Constitutional Vital Signs, click to edit/add: Last Vital Signs Temp 98.1 F 08/07/24 11:58 Pulse 89 08/07/24 13:10 Resp 23 H 08/07/24 13:10 BP 128/67 08/07/24 13:00 Pulse Ox 96 08/07/24 13:18 O2 Del Method Room Air 08/07/24 13:18 Course Vital Signs Vital signs: Vital Signs Temperature 98.1 F 08/07/24 11:58 Pulse Rate 89 08/07/24 11:58 Respiratory Rate 18 08/07/24 11:58 Blood Pressure 123/71 08/07/24 11:58 Pulse Oximetry 95 08/07/24 11:58 Oxygen Delivery Method Room Air 08/07/24 11:58 Temperature 98.1 F 08/07/24 11:58 Pulse Rate 89 08/07/24 13:10 Respiratory Rate 23 H 08/07/24 13:10 Blood Pressure 128/67 08/07/24 13:00 Pulse Oximetry 96 08/07/24 13:18 Oxygen Delivery Method Room Air 08/07/24 13:18 Medical Decision Making MDM Narrative Medical decision making narrative: Patient is COVID-positive. This is most likely causing her diarrhea however she has been on antibiotics recently for UTIs. If she gives a stool sample we will send it for C. difficile. Patient weakness is probably coming from the COVID as well. Patient will be admitted for PT OT, rehydration and possible home health care or placement if she is not improving. I spoke to Dr. Guevara who is comfortable with care plan for admission. Patient and family are also comfortable care plan. NIH scale is 0, no evidence of acute neurological deficit or stroke CT brain was negative for acute findings. Differential Diagnosis Differential Diagnosis: COVID, electrolyte abnormality, C. difficile, worsening Parkinson's, stroke Medical Records Medical records reviewed: Yes I reviewed the patient's medical records Lab Data Lab results reviewed: Yes I reviewed the patient's lab results Labs: Lab Results 08/07/24 08/07/24 Range/Units 12:15 12:41 WBC 7.9 (4.0-11.0) 10^3/uL RBC 3.63 L (4.20-5.40) 10^6/uL Hgb 11.6 L (12.0-16.0) g/dL Hct 35.6 L (36.0-48.0) % MCV 98.1 (81.0-99.0) fL MCH 32.0 (26.7-34.0) pg MCHC 32.6 (29.9-35.2) g/dL RDW 13.5 (11.0-15.0) % Plt Count 186 (150-450) 10^3/uL MPV 9.8 (9.5-13.5) fL Neut % (Auto) 79.0 H (43.0-75.0) % Lymph % (Auto) 10.9 L (20.5-60.0) % [place] % (Auto) 8.0 (1.7-12.0) % Eos % (Auto) 1.4 (0.9-7.0) % Baso % (Auto) 0.4 (0.2-2.0) % Neut # (Auto) 6.3 (1.4-6.5) 10^3/uL Lymph # (Auto) 0.9 L (1.2-3.8) 10^3/uL [place] # (Auto) 0.6 (0.3-0.8) 10^3/uL Eos # (Auto) 0.1 (0.0-0.7) 10^3/uL Baso # (Auto) 0.0 (0.0-0.1) 10^3/uL Abs Immat Gran (auto) 0.02 (0.00-0.03) 10^3/uL Imm/Tot Granulo (auto) 0.3 (0.0-0.5) % Sodium 140 (136-145) mmol/L Potassium 3.4 L (3.5-5.1) mmol/L Chloride 102 (98-107) mmol/L Carbon Dioxide 27.5 (21.0-32.0) mmol/L Anion Gap 13.9 BUN 13.0 (7.0-18.0) mg/dL Creatinine 0.85 (0.55-1.02) mg/dL Est GFR ( Amer) >60 (>=60 mL/min/1.73m^2) Est GFR (Non-Af Amer) >60 (>=60 mL/min/1.73m^2) BUN/Creatinine Ratio 15.3 Glucose 97 (74-106) mg/dL Lactate 1.1 (0.4-2.0) mmol/L Calcium 6.8 L (8.5-10.1) mg/dL Total Bilirubin 0.5 (0.2-1.0) mg/dL AST 27 (15-37) U/L ALT 20 (14-59) U/L Alkaline Phosphatase 75 (46-116) U/L Troponin I High Sens 6.3 (4.0-51.3) pg/mL Total Protein 7.1 (6.4-8.2) g/dL Albumin 3.5 (3.4-5.0) g/dL Globulin 3.6 g/dL Albumin/Globulin Ratio 1.0 SARS-CoV-2 Ag (CV2AG) Positive A (NEGATIVE) Imaging Data CT scan - head: Radiologist's impression: ITS Impressions Chest X-Ray 08/07/24 11:44 IMPRESSION: 1. No acute cardiopulmonary process. 2. Mild chronic interstitial changes. Electronically authenticated by: JAYLEEN GREER Date: 08/07/2024 12:[address] 08/07/24 12:17 IMPRESSION: 1. No intracranial hemorrhage or appreciable acute abnormality. 2. Age consistent chronic changes. Electronically authenticated by: JAYLEEN GREER Date: 08/07/2024 12:38 ECG Data Interpretation: EKG INTERPRETATION Time: []1211 Rate: []85 Rhythm: _ []Normal sinus rhythm ST segments: _ []No acute ST elevation or depression T waves: _ [] Ectopy: _ [] P wave/MS interval: _ [] QRS interval: _ [] QT interval: _ [] Comparison: _ [] Comparison EKG date: [] Performed by: [self] Discharge Plan Discharge Chief Complaint: Weakness Clinical Impression: COVID, Weakness Patient Disposition: Admitted As Inpatient Time of Disposition Decision: 13:35 Condition: Fair Print Language: Bulgarian Referrals: Seema Sutherland NP [Primary Care Provider] - 1 week
--- NOTE | 2024-08-07 14:55 | SWNOTE1 ---
Medicare Outpatient Observation Notice reviewed and discussed with patient. Pt. verbalized understanding and signed the form. Original given to patient and copy placed in patient?s chart.
--- NOTE | 2024-08-07 14:55 | SWNOTE1 ---
SW met with pt to discuss dc needs. Pt lives at home with her who was in room during assessment. Pt has a walker and cane at home that she uses as needed and her daughters are in town as well if anything is needed. Pt voiced she is not going to a long term for rehab, but is open to home health if recommended. SW to review therapy notes once pt is evaluated. Medicare Outpatient Observation Notice was reviewed with pt and , but pt's signed it as pt voiced she can't sign anymore.
--- NOTE | 2024-08-07 14:58 | PM.HP ---
HPI H&P: HPI History of Present Illness Chief complaint: GENERAL WEAKNESS/ UPPER EXTREMITY PAIN/COVID Narrative: 83-year-old female with history of Parkinson was sent by her primary care provider for generalized weakness and ongoing diarrhea for 2 to 3 days. According to the patient, she has ongoing watery stools for 2 to 3 days. She also feels overall weak/tired for past 1 week or so. She reports falling at home about 2 weeks ago and since her fall, she has right shoulder and right foot pain. She denies losing consciousness but she did hit her head on the right side. She denies cough, shortness of breath, fever, chills or abdominal pain. She denies nausea, vomiting. She has no urinary symptoms. Patient lives with her spouse who is having a difficult time taking care of her at home. Workup in ER revealed patient was positive for COVID but otherwise no acute finding on CT head, chest x-ray and CBC/CMP. At the time of my evaluation, I noted that patient was very frail and tremulous at rest from her Parkinson's. She denies any active complaints other than generalized weakness. Patient has been struggling with recurrent UTI. Most recently she was on Augmentin. She is not using it currently and finished the oral abx course. She denies any urinary symptoms currently. Opioid HPI Opioid Management Most Recent Pain and Opioid Data: Last Pain Scale 0 08/07/24 14:46 Last Pain Assessment 08/07/24 14:46 Last MAR Pain Assessment 08/07/24 13:28 Review of Systems ROS Status of ROS 10 or more systems reviewed and unremarkable except as noted in history and below [facility] Medical History (Updated 08/07/24 @ 15:05 by Shaikh Ford MD) Hypothyroid ?E03.9 - Hypothyroidism, unspecified (ICD-10) Chronic pain disorder ?G89.4 - Chronic pain syndrome (ICD-10) HLD (hyperlipidemia) ?E78.5 - Hyperlipidemia, unspecified (ICD-10) CAD (coronary artery disease) ?I25.10 - Atherosclerotic heart disease of [place] coronary artery without angina pectoris (ICD-10) Parkinson disease ?G20.A1 - Parkinson's disease without dyskinesia, without mention of fluctuations (ICD-10) High cholesterol ?E78.00 - Pure hypercholesterolemia, unspecified (ICD-10) CVA (cerebral vascular accident) ?I63.9 - Cerebral infarction, unspecified (ICD-10) Surgical History (Updated 08/07/24 @ 13:59 by Melissa San RN) History of bowel resection ?Z90.49 - Acquired absence of other specified parts of digestive tract (ICD-10) H/O heart artery stent ?Z95.5 - Presence of coronary angioplasty implant and graft (ICD-10) Social History Little interest or pleasure in doing things: not at all Feeling down, depressed, or hopeless: not at all Meds Home Medications and Allergies Home Medications ?Medication ?Instructions ?Recorded ?Confirmed ?Type atorvastatin 20 mg tablet 20 mg PO DAILY 08/07/24 08/07/24 History calcitriol 0.5 mcg capsule 0.5 mcg PO DAILY 08/07/24 08/07/24 History gabapentin 300 mg capsule 900 mg PO BID 08/07/24 08/07/24 History hydroxychloroquine 200 mg tablet 200 mg PO BID 08/07/24 History levothyroxine 75 mcg tablet 75 mcg PO DAILY 08/07/24 08/07/24 History potassium chloride 20 mEq 20 meq PO DAILY 08/07/24 History tablet,extended release(part/cryst) pramipexole 0.25 mg tablet 0.25 mg PO BID 08/07/24 08/07/24 History trihexyphenidyl 2 mg tablet 2 mg PO BID 08/07/24 History Allergies Allergy/AdvReac Type Severity Reaction Status Date / Time No Known Drug Allergies Allergy Verified 08/07/24 11:58 Exam Constitutional Vital Signs, click to edit/add: Last Vital Signs Temp 98.1 F 08/07/24 11:58 Pulse 87 08/07/24 13:40 Resp 22 H 08/07/24 13:40 BP 126/69 08/07/24 13:31 Pulse Ox 96 08/07/24 13:18 O2 Del Method Room Air 08/07/24 13:18 General appearance: cooperative, comfortable, ill appearing and frail appearing Nutritional appearance: underweight Respiratory Common normals: normal respiratory effort, no retractions, no use of accessory muscles and clear to auscultation bilaterally Cardio Common normals: regular rate, regular rhythm, S1 normal heart sound and S2 normal heart sound GI Common normals: Normal to inspection, nondistended, normoactive bowel sounds present, soft to palpation, non-tender and no hepatosplenomegaly Extremity Common normals: normal to inspection and full ROM Neuro Common normals: oriented x3, moves all extremities and no focal motor deficits Psych Common normals: mental status grossly normal, thought process normal, denies homicidal ideation and denies suicidal ideation Results Labs Labs: Short CBC 08/07/24 Range/Units 12:15 WBC 7.9 (4.0-11.0) 10^3/uL Hgb 11.6 L (12.0-16.0) g/dL Hct 35.6 L (36.0-48.0) % Plt Count 186 (150-450) 10^3/uL BMP 08/07/24 12:15 Sodium 140 Potassium 3.4 L Chloride 102 Carbon Dioxide 27.5 BUN 13.0 Creatinine 0.85 Glucose 97 Calcium 6.8 L Liver Function 08/07/24 Range/Units 12:15 Total Bilirubin 0.5 (0.2-1.0) mg/dL AST 27 (15-37) U/L ALT 20 (14-59) U/L Alkaline Phosphatase 75 (46-116) U/L Albumin 3.5 (3.4-5.0) g/dL Assessment and Plan Assessment and Plan (1) COVID-19: Assessment and Plan: No resp symptoms. Reports diarrhea resulting in dehydration. Started on IVF. Will order PO decadron for the patient. Monitor. (2) Generalized weakness: Assessment and Plan: PT/OT eval. Likely due to COVID/dehydration. (3) Viral gastroenteritis: Assessment and Plan: Diarrhea, poor PO intake likely due to COVID. C diff for stool ordered. IVF for dehydration. Conservative/supportive care for now. (4) Parkinson disease: Assessment and Plan: On Mirapex, trihexyphenidyl for it. Symptoms appear poorly controlled. Will benefit from outpatient f/u by Neurology Qualifiers: Dyskinesia presence: with dyskinesia Fluctuating manifestations: without fluctuating manifestations Qualified Code(s): G20.B1 - Parkinson's disease with dyskinesia, without mention of fluctuations (5) CAD (coronary artery disease): Assessment and Plan: Prior hx of PCI -10 years ago. No active cardiac ischemia. Qualifiers: Coronary Disease-Associated Artery/Lesion type: [place] artery [place] vs. transplanted heart: [place] heart Associated angina: without angina Qualified Code(s): I25.10 - Atherosclerotic heart disease of [place] coronary artery without angina pectoris (6) Hypothyroid: Assessment and Plan: C/w levothyroxine. Qualifiers: Hypothyroidism type: unspecified Qualified Code(s): E03.9 - Hypothyroidism, unspecified (7) Chronic pain disorder: Assessment and Plan: Monitor for pain. On Trileptal and Gabapentin (8) HLD (hyperlipidemia): Assessment and Plan: c/w lipitor Qualifiers: Hyperlipidemia type: unspecified Qualified Code(s): E78.5 - Hyperlipidemia, unspecified
--- OUTSIDE RECORDS SUMMARY | 2024-08-07 15:06 | XMS_ITS | CCD ---
Author Organization [facility] Inform ion Partnership [facility] Care Team Providers Care Small Wind Energy Installer Name Role Phone DONNA TURCIOS Unavailable Unavailable CARIE REINA Unavailable Unavailable Bean Cantu Primary Care Provider Puneet Raymundo Attending Provider Curtis Alcocer Attending Provider Pratik Tadeo Unavailable Unavailable Unavailable Giovanny, Aba Unavailable Carie Keith Unavailable Alyssa Weller Unavailable PRATIK TADEO Primary Care Physician [phone] Unavailable Unavailable MD Madhav Conrad Attending Provider Seema Sutherland Primary Care Provider [phone] Madhav Conrad Unavailable RODERICK KONG Attending Unavailable RODERICK KONG Admitting Unavailable RODERICK KONG Consulting Unavailable DR PRATIK TADEO Primary Care Unavailable GIOVANNY, ABA Attending Unavailable DR PRATIK TADEO Primary Care Unavailable GIOVANNY, ABA Consulting Unavailable GIOVANNY, ABA Admitting Unavailable GIOVANNY, ABA Attending Unavailable DR PRATIK TADEO Primary Care Unavailable GIOVANNY, ABA Consulting Unavailable GIOVANNY, ABA Admitting Unavailable AICHHOLUmer, MANAGER ESTATE SEEMA Consulting Unavailable DR PRATIK TADEO Primary Care Unavailable AICHHOLUmer, MANAGER ESTATE SEEMA Admitting Unavailable AICHHOLZ, MANAGER ESTATE SEEMA Attending Unavailable ZOEY, DR JAYLEEN Manzo Consulting Unavailable TURCIOS, DR DONNA Deleon Admitting Unavailable TURCIOS, DR DONNA Deleon Attending Unavailable TURCIOS, DR DONNA Deleon Consulting Unavailable AICHHOLZ, MANAGER ESTATE SEEMA Primary Care Unavailable AICHHOLZ, MANAGER ESTATE SEEMA Consulting Unavailable AICHHOLZ, MANAGER ESTATE SEEMA Primary Care Unavailable AICHHOLZ, MANAGER ESTATE SEEMA Admitting Unavailable AICHHOLZ, MANAGER ESTATE SEEMA Attending Unavailable AICHHOLZ, MANAGER ESTATE SEEMA Primary Care Unavailable GIOVANNY, ABA Attending Unavailable GIOVANNY, ABA Consulting Unavailable GIOVANNY, ABA Admitting Unavailable Aichholz, Seema J Primary Care Provider [phone] MD Curtis Alcocer Attending Provider Aicjeannie, Seema [...] TURCIOS Attending Unavailable PRATIK TADEO Primary Care UnavailMELISSA Shearer Attending Unavailable AICHHOLZ, SEEMA J Primary Care Unavailable JACK VIVEROS Attending Unavailable JACK VIVEROS Referring Unavailable AICHHOLZ, SEEMA J Primary Care Unavailable Allergies Allergy Classification Reported Allergen(s) Allergy Type Date of Onset Reaction(s) Facility Opioid Agonists (2 sources) Morphine Drug Allergy 1 Hallucinating [facility] (7 sources) Morphine Derivatives; Translations: [Morphine Derivatives] Allergy to drug (finding) Other -Merged With [facility] y 250 DO Work Phone: (11 sources) fesoterodine Drug Allergy 4 dizziness/light hearded [facility] (15 sources) Morphine; Translations: [MORPHINE] Drug Allergy 8 hallucinations, Hallucinating, Hallucinating, hallucinations [facility] (1 source) Morphine Drug Allergy [facility] (1 source) Morphine Drug Allergy 1 [facility] Medications Current Medications Medication Drug Class(es) [...] day(s), # 10 cap(s), Refills(s) 0, Pharmacy: [facility] [id number], 144, cm, 09/27/23 13:10:00 EST, Height/Length Dosing, 49, kg, 09/27/23 13:10:00 EST, Weight Dosing Start Date: 11/13/23 Stop Date: 11/18/23 Status: Ordered Start: 09-27-2023 take 1 capsule by mo uth twice daily Keflex 500 mg Cap 500 mg = 1 cap(s), Oral, BID, start one day prior to procedure., # 14 cap(s), Refills(s) 0, Pharmacy: [facility] [id number], 144, cm, 09/27/23 13:10:00 EST, Height/Length Dosing, 49, kg, 09/27/23 13:10:00 EST, Weight Dosing Start Date: 09/27/23 Status: Ordered Start: 08-16-2023 take 1 capsule by [facility] twice daily Keflex 500 mg Cap 500 mg = 1 cap(s), Oral, BID, # 14 cap(s), Refills(s) 0, Pharmacy: [facility] [id number], 144, cm, 08/16/23 10:03:00 EDT, Height/Length Dosing, 49, kg, 08/16/23 10:03:00 EDT, Weight Dosing Start Date: 08/16/23 Status: Ordered Start: 05-19-2022 End: 05-29-2022 take 1 capsule by mouth twice daily Keflex 500 mg Cap 500 mg = 1 cap(s), Oral, BID, X 10 day(s), # 20 cap(s), Refills(s) 0, Pharmacy: [facility] [id number], 144, cm, 05/19/22 14:08:00 EDT, Height/Length Dosing, 49, kg, 05/11/22 11:21:00 EDT, Weight Dosing Start Date: 05/19/22 Stop Date: 05/29/22 Status: Ordered Start: 05-11-2022 take 1 capsule by [facility] twice daily Keflex 500 mg Cap 500 mg = 1 cap(s), Oral, BID, Pt. to start 3 days prior to bladder botox injections, # 14 cap(s), Refills(s) 0, Pharmacy: [facility] [id number], 144, cm, 05/11/22 11:21:00 EDT, Height/Length Dosing, 49, kg, 05/11/22 11:21:00 EDT, Weight Dosing Start Date: 05/11/22 Status: Ordered ciprofloxacin 500 mg oral tablet (3 sources) Quinolone Antimicrobial Start: 11-13-2023 Cipro 500 mg Tab 500 mg = 1 tab(s), Oral, BID, Take twice daily x5 days starting the day prior to the procedure, # 10 tab(s), Refills(s) 0, Pharmacy: [facility] [id number], 144, cm, 09/27/23 13:10:00 EST, Height/Length Dosing, [...] # 30 tab(s), Refills(s) 11, Pharmacy: [facility] [id number], 144, cm, 08/16/23 10:03:00 EDT, Height/Length Dosing, 49, kg, 08/16/23 10:03:00 EDT, Weight Dosing Start Date: 08/16/23 Status: Ordered Start: 04-12-2023 take 0.5 g by mouth once daily methenamine hippurate 1 g oral tablet 0.5 gm = 0.5 tab(s), Oral, Daily Start Date: 04/12/23 Status: Ordered Start: 01-31-2022 take 1 tablet by [facility] once daily methenamine mandelate 0.5 g oral tablet 0.5 gm = 1 tab(s), Oral, Daily, # 90 tab(s), Refills(s) 3, Pharmacy: [id number], 144, cm, 12/27/21 11:31:00 EST, Height/Length [...] Daily Adults 50+ Active polyethylene glycol 3350 23630 mg powder for oral solution (5 sources) [...] Coronary arteriosclerosis; Translations: [Atherosclerotic heart disease of [place] coronary artery without angina pectoris] Onset: 03-24-2022 [...] Unclassified (1 source) Athscl heart disease of [place] coronary artery w/o ang pctrs / I25.10(ICD-9) [...] Resolved: 10-18-2021 Episodic Other aftercare (1 source) intermediate manager (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 of aspirin; Translations: [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 OF ASPIRIN] Onset: 03-24-2022 Episodic Other aftercare (1 source) Other mcc (current) drug therapy; Translations: [OTH RAILROAD CAR CLEANER CURRENT DRUG THERAPY] Onset: 03-24-2022 Episodic Other [...] Santo MD on 07/18/2024 10:01 PM Normal [facility] CT CERVICAL SPINE WO CONTon 07-18-2024 CT [...] Alfonso MD on 07/18/2024 10:01 PM Normal [facility] XR ELBOW RT MIN 3 VWSon 09- [...] Alfonso MD on 07/18/2024 10:05 PM Normal [facility] XR SHOULDER RT MIN 2 VWSon 0 [...] Alex Alfonso MD on 07/18/2024 10:02 PM [facility] 04-11-2024 Lab Reports [id number]#[id number] F [facility] Ambulatory Visit Summaryon 0 04-10-2024 Ambulatory [...] Med JENKINS MD Where: [facility] Patient Educationon 04-10-20 Patient Education Urology [...] nerve stimulation). ? For women, using a medical doctor md/medical director to prevent urine leaks. This is a [...] urine. ? (more content not included)... Normal [facility] Urology Office/Clinic Noteon 04-10-2024 Urology Office/Clinic Note [...] with voice recognition artificial intelligence software, specifically [employer], [employer] and or [employer]. Substitutions may have occurred due to the [...] Information TRINA WATSON, Med Hilario, URL [address] [address]- Additional Instructions: 6 mos Patient Education Urinary Incontinence Jenny Haley, personally scribed for Dr. Jenkins on 04/10/2024 10:25:32. . Documentation recorded by the scribe, Jenyn Luna, accurately reflects the services(s) I performed and decisions made by me. Authenticated by Dr. Jenkins on 04/10/2024 10:26:50. 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 [facility] Comment on above: Result Comment: Elec tronically Signed By: Med JENKINS MD\.br\Date and Time Signed: 04/10/24 10:27 EDT\.br\Electronically Co-Signed By: Jenny Luna\.br\Date and Time Co-Signed: 04/10/24 10:25 EDT Consent for Procedure/Surger yon 03-13-2024 Consent for Procedure/Surgery [id number]#[id number] F [facility] Consent for Procedure/Surgery [id number]#1.00TI FF [facility] Erythrocyte distribution wid th Auto (RBC) [Ratio]on 02-27-2024 Erythrocyte distribution width (RBC) [Ratio] 13.0 % 11.0-15.0 [facility] Estimated glomerular filtrat ion rate (GFR) non- Americanon 02-27-2024 GFR/1.73 sq M.predicted among non-blacks MDRD (S/P/Bld) [Vol rate/Area] 57 mL/min/{1.73_m2} >=60 [facility] Hematocrit Auto (Bld) [Volum e fraction]on 02-27-2024 Hematocrit (Bld) [Volume fraction] 37.0 % 36.0-48.0 [facility] Hemoglobin [Mass/volume] in Bloodon 02-27-2024 Hemoglobin (Bld) [Mass/Vol] 12.1 g/dL 12.0-16.0 [facility] Laboratory - Chemistry and C hemistry - challengeon 02-27-2024 Albumin [Mass/Vol] 3.5 g/dL 3.4-5.0 [facility] Calcium [Mass/Vol] 9.3 mg/dL 8.5-10.1 [facility] Chloride [Moles/Vol] 104 mmol/L 98-107 [facility] CO2 [Moles/Vol] 29.1 mmol/L 21.0-32.0 [facility] Creatinine [Mass/Vol] 0.94 mg/dL 0.55-1.02 [facility] GFR/1.73 sq M.predicted MDRD (S/P/Bld) [Vol rate/Area] mL/min/{1.73_m2} >=60 [facility] Glucose [Mass/Vol] 126 mg/dL 74-106 [facility] Magnesium [Mass/Vol] 1.7 mg/dL 1.8-2.4 [facility] Potassium [Moles/Vol] 4.1 mmol/L 3.5-5.1 [facility] Sodium [Moles/Vol] 141 mmol/L 136-145 [facility] Urea nitrogen [Mass/Vol] 28.0 mg/dL 7.0-18.0 [facility] Urea nitrogen/Creatinine [Mass ratio] 29.8 mg/mg [facility] Leukocytes [#/volume] correc db for nucleated erythrocytes in Blood by Automated counon 02-27-2024 WBC corrected for nucl RBC Auto (Bld) [#/Vol] 9.9 10 3/uL 4.0-11.0 [facility] MCH Auto (RBC) [Entitic mass ]on 02-27-2024 MCH (RBC) [Entitic mass] 32.6 pg 26.7-34.0 [facility] MCHC Auto (RBC) [Mass/Vol]on 02-27-2024 MCHC (RBC) [Mass/Vol] 32.7 g/dL 29.9-35.2 [facility] MCV Auto (RBC) [Entitic vol] on 02-27-2024 MCV (RBC) [Entitic vol] 99.7 fL 81.0-99.0 [facility] No Panel Informationon 02-26 25-Hydroxy Vitamin D Total 34.4 ng/mL [facility] Comment on above: <20 ng/mL Vit D defi cient20-<30 ng/mL Vit D [id number] ng/mL Vit D sufficient>100 ng/mL Potential Toxicity Parathyroid Hormone (Intact) 3 pg/mL 15-65 [facility] Comment on above: Performed at: [employer] [facility] [address] [id number] Director: Conrado Gates PhD, Phone: [phone] Phosphorus Level 3.6 mg/dL 2.6-4.7 [facility] Platelet mean volume Auto (B ld) [Entitic vol]on 02-27-2024 Platelet mean volume (Bld) [Entitic vol] 9.4 fL 9.5-13.5 [facility] Platelets Auto (Bld) [#/Vol] on 02-27-2024 Platelets (Bld) [#/Vol] 196 10 3/uL 150-450 [facility] RBC Auto (Bld) [#/Vol]on RBC (Bld) [#/Vol] 3.71 10 6/uL 4.20-5.40 [facility] Serum or plasma anion gap de terminationon 02-27-2024 Anion gap [Moles/Vol] 12.0 mmol/L [facility] Consent for Treatmenton 01-29 Consent for Treatment [id number]#[id number] FF Normal [facility] Inpatient Patient Summaryon 02-26-2024 Inpatient Patient Summary [place] [id number] Clinical Summary Person Information Name: NARCISO VELASQUEZ Age: 83 Years : 1940 Sex: Female PCP: PRATIK TADEO MD Marital Status: Race: White Ethnicity: Non- or Language: Mohawk Visit Id: Visit Reason: URINARY INCONTINENCE Speciality: Acuity: Enc Type: Outpatient Med Service: Surgery Arrival: 02/26/2024 12:39:14 Discharge: Dispo Type: Address: [address] [place] [phone] Provider Notes: Diagnosis: Problems Active Incontinence without sensory awareness Recurrent UTI Incomplete bladder emptying Stress incontinence UTI (urinary tract infection) Urinary retention UTI symptoms Overactive bladder Aspirin long-term use Weak urine stream Weak urinary stream 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 Patient Education Information: EU - Cystoscopy with Botox Injection Discharge Instructions (Custom) [facility] IntraOperative Documentson 0 02-26-2024 IntraOperative Documents [id number] FF [facility] Main OR Intraoperative Recor don 02-26-2024 Main OR Intraoperative Record IntraOp Document Type FTURO Summary Primary Physician: Med JENKINS MD Finalized Date/Time: 02/26/24 13:43:34 Pt. Name: RONNARCISO/Sex: 1940 Female Med Rec #: [id number] Physician: Med JENKINS MD Financial #: [id number] Pt. Type: O Room/Bed: / Admit/Disch: 02/26/24 [...] Krishna Moctezuma Role Performed Surgeon - Primary Communications Analyst - Primary Scrub - Primary Time In [...] Comments: botox 100 units out date03/24 lot [id number] botox 50 units outdate 12/25 lot [id number] General Case Data FTURO Pre-Care Text: Classifies [...] JASPREET Bennett RN, Ruthann 02/26/24 13:43 Normal [facility] Main OR Preoperative Recordo n 02-26-2024 Main OR Preoperative Record Holding Area Document Type FTURO Summary Primary Physician: Med JENKINS MD Finalized Date/Time: 02/26/24 13:13:19 Pt. Name: NARCISO VELASQUEZ Derrick Tellez./Sex: 1940 Female Med Rec #: [id number] Physician: Med JENKINS MD Financial #: [id number] Pt. Type: O Room/Bed: / Admit/Disch: 02/26/24 [...] By: Dorie Logan RN 02/26/24 13:13 Normal [facility] Operative Reporton Operative Report Patient: STEPHANIA VELASQUEZ Age: 83 years Sex: Female : 1940 Associated Diagnoses: None Author: Med JENKINS MD Procedure Operative Information Details: Date/ Time: 02/26/2024 13:46:00. Pre-Op Dx: Overactive bladder (NNO89-AX N32.81, Working, Medical), Urgency incontinence (HZR64-JK N39.41, Working, Medical). Post-Op Dx: Same. Anesthesia [...] Follow up arranged, F/U six weeks. Normal [facility] Comment on above: Result Comment: Elec tronically Signed By: Med JENKINS MD\.br\Date and Time Signed: 02/26/24 13:51 EDT Outpatient Surgery Discharge Instructionon 02-26-2024 Outpatient Surgery Discharge Instruction [id number] FF Normal [facility] Outpatient Surgery Discharge Instruction [place] [id number] Patient Discharge Instructions PERSON INFORMATION Name: NARCISO [...] Follow up: With: Address: When: Med JENKINS [address] [place] [address], [address], [place] [id number] [facility] (1) Within 6 weeks Comments: Call for [...] Date You may receive a survey from [employer] asking you to rate your care experience. Your feedback is important and will help us understand what we do well and how we can improve the quality of care we provide to you, your loved ones and our community. It?s an honor to serve you. Thank you for choosing [facility] Normal [facility] C Urineon 11-16-2023 Bacteria identified Cx Nom [...] Locations R1: This test was performed at: [facility], [address] [place] [address], [facility] , , [facility] Comment on above: Performed By: #### 2 [id number] ####[place] [address] Consent for Treatmenton 10-30 Consent for Treatment [id number] F Normal [facility] Inpatient Patient Summaryon 11-13-2023 Inpatient Patient Summary [address] [address] Clinical Summary Person Information Name: NARCISO VELASQUEZ Age: 82 Years : 1940 Sex: Female PCP: PRATIK TADEO MD Marital Status: Race: White Ethnicity: Non- or Language: Mohawk Visit Id: Visit Reason: URINARY INCONTINENCE Speciality: Acuity: Enc Type: Outpatient Med Service: Surgery Arrival: 11/13/2023 13:31:33 Discharge: Dispo Type: Address: [address] [place] [phone] Provider Notes: Diagnosis: Problems Active Incontinence without sensory awareness Recurrent UTI Incomplete bladder emptying Stress incontinence UTI (urinary tract infection) Urinary retention UTI symptoms Overactive bladder Aspirin long-term use Weak urine stream Weak urinary stream Hx of mcc 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 thinners Mixed incontinence Frequency [...] up: With: Address: When: Med JENKINS [address] [facility], [address], [place] [phone] Business (1) Comments: As you know we [...] and the cranberry is self-explanatory. 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 Patient Education Information: Franca [facility] Main OR Preoperative Recordo n 11-13-2023 Main OR Preoperative Record Holding Area Document Type FTURO Summary Primary Physician: Finalized Date/Time: 11/13/23 16:40:45 Pt. Name: NARCISO VELASQUEZ Derrick Alicea/Sex: 1940 Female Med Rec #: [id number] Physician: Med JENKINS MD Financial #: [id number] Pt. Type: O Room/Bed: / Admit/Disch: 11/13/23 [...] and he said they would call her welt butter hand right away shashank. Finalized By: JASPREET Bennett RN, Ruthann Document Signatures Signed By: JASPREET Bennett RN, Ruthann 11/13/23 14:43 JASPREET Bennett RN, Ruthann 11/13/23 14:43 JASPREET Bennett RN, Ruthann 11/13/23 16:40 Normal [facility] Outpatient Surgery Discharge Instructionon 11-13-2023 Outpatient Surgery Discharge Instruction [address] [address] Patient Discharge Instructions PERSON INFORMATION [...] Follow up: With: Address: When: Med JENKINS [address] [place] [address], [address], [place] [phone] Business (1) Comments: As you know we [...] and the cranberry is self-explanatory. 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 Comment: PATIENT EDUCATION INFORMATION Instructions: I, NARCISO VELASQUEZ, have received the attached patient education materials/instructions and have verbalized understanding: May we do a follow up call? Yes No I was present when discharge instructions were given Patient Signature Date Clinican/Nurse Signature Date You may receive a survey from [facility] [facility] asking you to rate your care experience. Your feedback is important and will help us understand what we do well and how we can improve the quality of care we provide to you, your loved ones and our community. It?s an honor to serve you. Thank you for choosing [facility] Normal [facility] Patient Educationon 11-13-19 Patient Education Normal [facility] Progress Note-Physicianon Progress Note-Physician Patient: NARCISO VELASQUEZ [...] procedure., # 14 cap(s), Refills(s) 0, Pharmacy: [facility] [id number], 144, cm, 09/27/23 13:10:00 EST, Height/Length Dosing, [...] All Problems Kidney stone / SNOMED CT 840851009 / Confirmed Incontinence without sensory awareness / SNOMED CT 2443924306 / Confirmed Weak urinary stream / SNOMED CT 9901315519 / Confirmed Urge incontinence of urine / SNOMED CT 423462881 / Confirmed Flank pain / SNOMED CT 087307207 / Confirmed Myocardial infarction / SNOMED CT 38383523 / Confirmed Nocturia / SNOMED CT 979960037 / Confirmed Urinary urgency / SNOMED CT 109640204 / Confirmed 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 / SNOMED CT 820074677 / Confirmed Urgency of urination / SNOMED CT 329570908 / Confirmed Urge incontinence / SNOMED CT 548027114 / Confirmed Dysuria / SNOMED CT 86274107 / Confirmed Asymptomatic microscopic hematuria / SNOMED CT 7776887557 / Confirmed Mixed incontinence / SNOMED CT 97011809 / Confirmed Frequency of urination / SNOMED CT 262340068 / Confirmed Weak urine stream / SNOMED CT 395529914 / Confirmed OAB (overactive bladder) / SNOMED CT 5841935891 / Confirmed Aspirin long-term use / SNOMED CT 2359952586 / Confirmed Overactive bladder / SNOMED CT 1970304556 / Confirmed UTI symptoms / SNOMED CT 712204879 / Confirmed Urinary retention / SNOMED CT 991684199 / Confirmed UTI (urinary tract infection) / SNOMED CT 155971121 / Confirmed Stress incontinence / SNOMED CT 366375989 / Confirmed Incomplete bladder emptying / SNOMED CT 847412899 / Confirmed Recurrent UTI / SNOMED CT 127543778 / Confirmed Incontinence without sensory awareness / SNOMED CT 6458132944 / Confirmed, Active Problems (26) Aspirin long-term use Asymptomatic microscopic hematuria Dysuria Flank pain Frequency of urination 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 Additional Plan of Care and/or Course of Treatment: Additional Plan of Care and/or Course of Treatment: Discussed extensively with the patient and her . Due to the presence of what appears to be an active urinary tract infection, have to cancel the B (more content not included)... Normal [facility] Comment on above: Result Comment: Elec tronically Signed By: Med JENKINS MD\.br\Date and Time Signed: 11/13/23 14:46 EST Ambulatory Visit Summaryon 1 11-27-2022 Ambulatory Visit Summary NARCISO VELASQUEZ :1940 Visit Date:09/27/2023 Ambulatory Visit Instructions Your Diagnosis Urge incontinence Incontinence without sensory awareness OAB (overactive bladder) Recurrent UTI Tests Performed Urnls Dip Stick Auto w/o Microscopy POC [id number] Your Care Team Attending Physician - Med [...] Follow-Up Appointments Monday 9:45 AM EST Where: [facility] Monday 2:45 PM EST Where: [facility] You Need to Schedule the Following Appointments Follow Up with COOK MD, Med P, URL When: Where: [address] [address]- Medications What How Much When Instructions Changed cephalexin (Keflex 500 mg Cap) 1 Capsules By Mouth 2 times a day start one day prior to procedure. Pickup at [facility] [id number] Unchanged acetaminophen Contact prescribing physician if questions [...] physician if questions or concerns Pharmacy Information [facility] [id number]: [address] [place], [place] [id number] [phone] What How Much When Comments Stop Taking methenamine (methenamine hippurate 1 g oral tablet) 0.5 Tablets By Mouth Every day Test Results Urnls Dip Stick Auto w/o Microscopy POC 12156 (09/27/2023) POC Test Comments - Pt. was not able to urinate Allergies No Known Allergies Problems Ongoing - Any problem that you are currently receiving treatment for. 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 Normal [facility] Patient Educationon 09-27-20 23 Patient Education Urology [...] nerve stimulation). ? For women, using a medical doctor md/medical director to prevent urine leaks. This is a [...] urine. ? (more content not included)... Normal [facility] Urology Office/Clinic Noteon 09-27-2023 Urology Office/Clinic Note [...] with voice recognition artificial intelligence software, specifically [employer], [employer] and or [employer]. Substitutions may have occurred due to the [...] Contact Information Med JENKINS MD, URL [address] [place], [place] [id number]- Additional Instructions: Schedule botox 150 units Patient Education Urinary Incontinence IJenny, personally scribed for Dr. Jenkins on 09/27/2023 13:17:45. . Documentation recorded by the scribe, Jenny Luna, accurately reflects the services(s) I performed and decisions made by me. Authenticated by Dr. Jenkins on 09/27/2023 13:21:04. Problem List/Past Medical History Ongoing Aspirin l (more content not included)... Normal [facility] Comment on above: Result Comment: Elec tronically [...] Locations R1: This test was performed at: [facility], [address] [place] [address], [address]- , , [facility] Comment on above: Performed By: #### 2 [id number] #### [facility] [address] [place] [address] Ambulatory Visit Summaryon 1 Ambulatory Visit Summary NARCISO VELASQUEZ :1940 Visit Date:08/16/2023 Ambulatory Visit Instructions Your Diagnosis Urge incontinence OAB (overactive bladder) Recurrent UTI Tests Performed Urnls Dip Stick Auto w/o Microscopy POC [id number] Your Care Team Attending Physician - Med [...] Follow-Up Appointments Monday 1:00 PM EST With: Mde JENKINS MD Where: [facility] Patient Educationon 10-18-20 23 Patient Education [...] this condition includes: ? Antibiotic medicine. ? Hmdb-znc-yobfnmr medicines to treat discomfort. ? Drinking enough [...] these instructions at home: Medicines ? Take rqgi-owt-fitueok and prescription medicines only as told by [...] Revpérez (more content not included)... Normal [facility] Urology Office/Clinic Noteon 08-16-2023 Urology Office/Clinic [...] with voice recognition artificial intelligence software, specifically [employer], [employer] and or [employer]. Substitutions may have occurred due to the [...] at next visit -Check with [facility] in [place] regarding incontinence supplies 1a. Current UTI. 2. [...] P, URL [address] [address]- Additional Instructions: 6 wks since starting Methenamine [...] Flank pain Frequency of urination Hx of mcc 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 thinners Incomplete bladder emptying Incontinence without sensory awareness Kidney stone Mixed incontinence Myocardial infarction Nocturia OAB (overactive bladder) Overactive bladder Recurrent UTI Stress incontinence Urge incontinence Urge incontinence of urine Urgency of urin (more content not included)... Normal [facility] Comment on above: Result Comment: Elec tronically [...] rheumatology locally, currently stable Donna Turcios MD, [facility] Surgical History Problems History of Angioplasty History [...] negative for complaint. Vitals Vital Signs Recorded: [id number] 10:40AM Heart Rate60, L Radial Reiginco948, LUE, Sitting Nlawmfeig87, LUE, Sitting Height4 ft 10 in Zflrvu299 lb BMI Erkfwyvfjq96.11 kg/m2 BSA Calculated1.36 Tobacco Useb) No Falls [...] Jul 20 2023 12:36PM EST (Author) Normal [facility] Tobacco Screening.on 023 Fall risk assessment a) No falls within the last year [facility] DO Work Phone: Tobacco use status CP b) No [facility] DO Work Phone: XR calcaneus BIon 07-05-2023 XR calcaneus BI [facility] Main [place] [address] [place] [address] XRay Report Signed Patient: Narciso Velasquez MR#: [id number] : 1940 Acct:[id number] Age/Sex: 82 / F ADM Date: 07/05/23 Loc: ICXD Room: Type: [facility] Attending Dr: Curtis Alcocer MD Copies to: Curtis Alcocer MD Ordering Provider: Curtis Alcocer MD Date of Service: 07/05/23 XR/XR foot BI 2V: BENJIE HEAL/FOOT PAIN ([id number]) XR/XR calcaneus BI: FOOT/HEAL PAIN CLINICAL DATA: [...] Zuly Leon M.D.07/05/2023 5:55 PM Dictation Location: [place] [address] Transcribed By: [facility] 07/05/231754 Dictated By: Zuly Leon MD 07/05/231752 Signed By: 07/05/231754 [facility] Lab Reportson 06-12-2023 Lab Reports [id number]: 127 Normal [facility] Lab Reports [id number]: 127 Normal [facility] Lab Reports [id number]#1.00CD: 127 Normal [facility] Lab Reportson 06-10-2023 Lab Reports [id number]#1.00CD: 127 Normal [facility] Consent for Procedure/Surger yon 05-11-2023 Consent for Procedure/Surgery [id number]#1.00CD :127 Normal [facility] Consent for Treatmenton 04-29 Consent for Treatment [id number]#1.00CD: 127 Normal [facility] Inpatient Patient Summaryon 05-11-2023 Inpatient Patient Summary [place] [address] Clinical Summary Person Information Name: NARCISO VELASQUEZ Age: 82 Years : 1940 Sex: Female PCP: PRATIK TADEO MD Marital Status: Race: White Ethnicity: Non- or Language: Mohawk Visit Id: Visit Reason: URINERY INCONTINENCE Speciality: Acuity: Enc Type: Outpatient Med Service: Surgery Arrival: 05/11/2023 07:16:35 Discharge: Dispo Type: Address: [address] [place] [phone] Provider Notes: Diagnosis: Problems Active Incomplete bladder emptying Stress incontinence UTI (urinary tract infection) Urinary retention UTI symptoms Overactive bladder Aspirin long-term use Weak urine stream Weak urinary stream 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 Patient Education Information: EU - Cystoscopy with Botox Injection Discharge Instructions (Custom) [facility] IntraOperative Documentson 0 05-11-2023 IntraOperative Documents [id number] :127 [facility] Main OR Intraoperative Recor don 05-11-2023 Main OR Intraoperative Record IntraOp Document Type FTURO Summary Primary Physician: Med JENKINS MD Finalized Date/Time: 05/11/23 08:07:27 Pt. Name: NARCISO VELASQUEZ/Sex: 1940 Female Med Rec #: [id number] Physician: Med JENKINS MD Financial #: [id number] Pt. Type: O Room/Bed: / Admit/Disch: 05/11/23 [...] Kendall R Role Performed Surgeon - Primary Communications Analyst - Primary Scrub - Primary Time In [...] 08:07:16 General Comments: botox 100 units, lot: [id number] exp: General Case Data FTURO Pre-Care Text: [...] 05/11/23 08:07 Heather Randhawa 05/11/23 08:07 Normal [facility] Main OR Preoperative Recordo n 05-11-2023 Main OR Preoperative Record Holding Area Document Type FTURO Summary Primary Physician: Med JENKINS MD Finalized Date/Time: 05/11/23 07:53:38 Pt. Name: RONNARCISO./Sex: 1940 Female Med Rec #: [id number] Physician: Med JENKINS MD Financial #: [id number] Pt. Type: O Room/Bed: / Admit/Disch: 05/11/23 [...] 07:36 Dorie Logan RN 05/11/23 07:53 Normal [facility] Operative Reporton 3 Operative Report Patient: STEPHNAIA VELASQUEZ Age: 82 years Sex: Female : [...] months with bladder scan PVR. . Normal [facility] Comment on above: Result Comment: Elec tronically Signed By: Med JENKINS MD\.br\Date and Time Signed: 05/11/23 08:03 EDT Outpatient Surgery Discharge Instructionon 05-11-2023 Outpatient Surgery Discharge Instruction [place] [id number] Patient Discharge Instructions PERSON INFORMATION Name: NARCISO [...] Follow up: With: Address: When: [facility] [address] [facility] [address] [place] [id number] [facility] (1) Within 3 months Comments: Call for [...] you have a fever over 100 degrees. ORN Haley PATRICIA A, have received the attached patient education materials/instructions and have verbalized understanding: May we do a follow up call? Yes No I was present when discharge instructions were given Patient Signature Date Clinican/Nurse Signature Date You may receive a survey from [facility] [employer] asking you to rate your care experience. Your feedback is important and will help us understand what we do well and how we can improve the quality of care we provide to you, your loved ones and our community. It?s an honor to serve you. Thank you for choosing [facility] Normal [facility] Office Visit (Cardiology)on 01-12-2023 Follow-up visit Diagnoses/Problems [...] Metabolic Panel; Status:Active - Retrospective Authorization; Requested for:[id number]; Complete Blood Count; Status:Active - Retrospective Authorization; Requested for:[id number]; Atherosclerosis of coronary artery, Hyperlipidemia ALT - Alanine Aminotransferase, Serum; Status:Active - Retrospective Authorization; Requested for:10Jul2023; AST; Status:Active - Retrospective Authorization; Requested for:10Jul2023; Lipid Panel; Status:Active - Retrospective Authorization; Requested for:[id number]; SocHx: Never a smoker Tobacco Use Screening; [...] rheumatology locally, currently stable Donna Turcios MD, [facility] Surgical History Problems History of Angioplasty History [...] Recorded: 12Jan2023 11:13AM Heart Rate88, L Radial Qhgcqcvn224, LUE, Sitting Iklrjkhll26, LUE, Sitting Height4 ft 10 in Luxplv585 lb BMI Ifmyvfqcus49.95 kg/m2 BSA Calculated1.38 Tobacco Useb) No PHQ-2 [...] . Pulmo (more content not included)... Normal [facility] Tobacco Screening.on 023 Adult depression screening assessment No [facility] DO Work Phone: Fall risk assessment a) No falls within the last year [facility] DO Work Phone: Tobacco use status CP b) No [facility] DO Work Phone: PTH INTACTon 11-30-2022 PTH, Intact 3 pg/mL Critically low 15-65 [facility] Comment on above: Performed By: #### MG TC #### [facility] [address] [place] [address] Dr. Emilie Jeronimo HEMOGRAM AND PLATELon 2022 Hematocrit (Bld) [Volume fraction] 38.0 % Normal 36.0-48.0 [facility] Comment on above: Performed By: #### MG TC #### [facility] [address] [place] [address] Dr. Emilie Jeronimo Hemoglobin (Bld) [Mass/Vol] 12.9 g/dL Normal 12.0-16.0 [facility] Comment on above: Performed By: #### R ENAL, MG #### [facility] [address] [place] [address] Dr. Emilie Jeronimo MCH (RBC) [Entitic mass] 32.5 pg Normal 26.7-34.0 [facility] Comment on above: Performed By: #### R ENAL, MG #### [facility] [address] [place] [address] Dr. Emilie Jeronimo MCHC (RBC) [Mass/Vol] 33.9 g/dL Normal 29.9-35.2 [facility] Comment on above: Performed By: #### R ENAL, MG #### [facility] [address] [place] [address] Dr. Emilie Jeronimo MCV (RBC) [Entitic vol] 95.7 fL Normal 81.0-99.0 [facility] Comment on above: Performed By: #### R ENAL, MG #### [facility] [address] [place] [address] Dr. Emilie Jeronimo PLT 214 103/ul Normal 150-450 [facility] Comment on above: Performed By: #### R ENAL, MG #### [facility] [address] [place] [address] Dr. Emilie Jeronimo RBC 3.97 106/ul Critically low 4.20-5.40 [facility] Comment on above: Performed By: #### R ENAL, MG #### [facility] [address] [place] [address] Dr. Emilie Jeronimo WBC 7.7 103/ul Normal 4.0-11.0 [facility] Comment on above: Performed By: #### R ENAL, MG #### [facility] [address] [place] [address] Dr. Emilie Jeronimo MAGNESIUMon 11-29-2022 Magnesium [Mass/Vol] 1.3 mg/dL Critically low 1.8-2.4 [facility] Comment on above: Performed By: #### R ZEESHAN, MG #### [facility] [address] [place] [address] Dr. Emilie Jeronimo RENAL FUNCTION PANELon 11-29 Albumin [Mass/Vol] 3.6 g/dL Normal 3.4-5.0 [facility] Comment on above: Performed By: #### R ENMICHELLE, MG #### [facility] [address] [place] [address] Dr. Emilie Jeronimo Calcium [Mass/Vol] 9.4 mg/dL Normal 8.5-10.1 [facility] Comment on above: Performed By: #### R ENMICHELLE, MG #### [facility] [address] [place] [address] Dr. Emilie Jeronimo Chloride [Moles/Vol] 103 mmol/L Normal 98-107 [facility] Comment on above: Performed By: #### R ENMICHELLE, MG #### [facility] [address] [place] [address] Dr. Emilie Jeronimo CO2 [Moles/Vol] 32.5 mmol/L Critically high 21.0-32.0 [facility] Comment on above: Performed By: #### R ENMICHELLE, MG #### [facility] [address] [place] [address] Dr. Emilie Jeronimo Creatinine [Mass/Vol] 0.79 mg/dL Normal 0.55-1.02 [facility] Comment on above: Performed By: #### R ENMICHELLE, MG #### [facility] [address] [place] [address] Dr. Emilie Jeronimo EGFR-AF SPANISH >60 Normal >=60 [facility] Comment on above: Performed By: #### R ENMICHELLE, MG #### [facility] [address] [place] [address] Dr. Emilie Jeronimo EGFR-NON AF SPANISH >60 Normal >=60 [facility] Comment on above: Performed By: #### R ENMICHELLE, MG #### [facility] [address] [place] [address] Dr. Emilie Jeronimo Glucose [Mass/Vol] 95 mg/dL Normal 74-106 [facility] Comment on above: Performed By: #### R ENMICHELLE, MG #### [facility] [address] [place] [address] Dr. Emilie Jeronimo Phosphate [Mass/Vol] 4.0 mg/dL Normal 2.6-4.7 [facility] Comment on above: Performed By: #### R ENMICHELLE, MG #### [facility] [address] [place] [address] Dr. Emilie Jeronimo Potassium [Moles/Vol] 3.8 mmol/L Normal 3.5-5.1 [facility] Comment on above: Performed By: #### R ENMICHELLE, MG #### [facility] [address] [place] [address] Dr. Emilie Jeronimo Sodium [Moles/Vol] 145 mmol/L Normal 136-145 [facility] Comment on above: Performed By: #### R ENMICHELLE, MG #### [facility] [address] [place] [address] Dr. Emilie Jeronimo Urea nitrogen [Mass/Vol] 17.0 mg/dL Normal 7.0-18.0 [facility] Comment on above: Performed By: #### R ENMICHELLE, MG #### [facility] [address] [place] [address] Dr. Emilie Jeronimo UA RANDOM W/MICROSCOPICon BACTERIA SMALL Abnormal NONE SEEN [facility] Comment on above: Performed By: #### R ENMICHELLE, MG #### [facility] [address] [place] [address] Dr. Emilie Jeronimo Bilirubin Ql (U) Negative Normal NEGATIVE [facility] Comment on above: Performed By: #### R ENAL, MG #### [facility] [address] [place] [address] Dr. Emilie Jeronimo CAST NONE SEEN Normal NONE SEEN [facility] Comment on above: Performed By: #### R ENMICHELLE, MG #### [facility] [address] [place] [address] Dr. Emilie Jeronimo Clarity (U) SL CLOUDY Abnormal CLEAR [facility] Comment on above: Performed By: #### R ENAL, MG #### [facility] [address] [place] [address] Dr. Emilie Jeronimo Color (U) LT. YELLOW Normal YELLOW [facility] Comment on above: Performed By: #### R ENAL, MG #### [facility] [address] [place] [address] [address] Emilie Jeronimo Crystals LM Nom (Urine sed) NONE SEEN Normal NONE SEEN [facility] Comment on above: Performed By: #### R ENAL, MG #### [facility] [address] [place] [address] Dr. Emilie Jeronimo Epithelial cells LM Ql (Urine sed) RARE Normal NONE SEEN /RARE [facility] Comment on above: Performed By: #### R ENAL, MG #### [facility] [address] [place] [address] Dr. Emilie Jeronimo Glucose Ql (U) Negative Normal NEGATIVE [facility] Comment on above: Performed By: #### R ENAL, MG #### [facility] [address] [place] [address] Dr. Emilie Jeronimo Hemoglobin Ql (U) TRACE-INTACT Abnormal NEGATIVE [facility] Comment on above: Performed By: #### R ENAL, MG #### [facility] [address] [place] [address] Dr. Emilie Jeronimo Ketones Ql (U) Negative Normal NEGATIVE [facility] Comment on above: Performed By: #### R ENAL, MG #### [facility] [address] [place] [address] Dr. Emilie Jeronimo LEUKOCYTES LARGE Abnormal NEGATIVE [facility] Comment on above: Performed By: #### R ENAL, MG #### [facility] [address] [place] [address] Dr. Emilie Jeronimo MUCOUS TRACE Abnormal NONE SEEN [facility] Comment on above: Performed By: #### R ENAL, MG #### [facility] [address] [place] [address] Dr. Emilie Jeronimo Nitrite Ql (U) Positive Abnormal NEGATIVE [facility] Comment on above: Performed By: #### R ENAL, MG #### [facility] [address] [place] [address] Dr. Emilie Jeronimo pH (U) 6.5 [pH] Normal 5-9 [facility] Comment on above: Performed By: #### R ENAL, MG #### [facility] [address] [place] [address] Dr. Emilie Jeronimo RBC 2-5 Abnormal 0-2 [facility] Comment on above: Performed By: #### R ENAL, MG #### [facility] [address] [place] [address] Dr. Emilie Jeronimo SPEC GRAVITY 1.020 Normal 1.005-<=1.025 [facility] Comment on above: Performed By: #### R ENAL, MG #### [facility] [address] [place] [address] Dr. Emilie Jeronimo UA PROTEIN TRACE Normal NEGATIVE/ TRACE [facility] Comment on above: Performed By: #### R ENAL, MG #### [facility] [address] [place] [address] Dr. Emiile Jeronimo Urobilinogen Qn (U) 1.0 {Fareed'U}/dL Normal 0.2 - 1. 0 [facility] Comment on above: Performed By: #### R ENAL, MG #### [facility] [address] [place] [address] Dr. Emilie Jeronimo WBC 20-50 Abnormal NONE SEEN [facility] Comment on above: Performed By: #### R ENAL, MG #### [facility] [address] [place] [address] Dr. Emilie Jernoimo VITAMIN D 25 OHon 11-29-2022 VIT D 25-OH 38.1 ng/mL Normal [facility] Comment on above: Performed By: #### R ENAL, MG #### [facility] [address] [place] [address] Dr. Emilie Jeronimo VIT D RANGES SEE BELOW Normal [facility] Comment on above: Result Comment: <20 ng/mL Vit D deficient 20 - <30 ng/mL Vit D insufficient 30 - 100 ng/mL Vit D sufficient >100 ng/mL Potential Toxicity Performed By: #### R MG ZEESHAN #### [facility] [address] [place] [address] Dr. Emilie Jeronimo Ellis 08-02-2022 L ---- Specimen: [id number] Received: 08/02/22 Status: BIANKA Meyer Num: [id number] Spec Type: Surgical Subm Dr: Madhav Conrad MD Tissues: A Gastric Biopsy (GASTRIC BX) Procedures: HE Stain/2, Gross/Micro L4 Age/ Patient Sex Location Account Attending Physician Narciso Velasquez 81/F [id number] Madhav Conrad MD SPEC NUM: [id number] RECD: 08/02/22 STATUS: BIANKA MEYER NUM: [id number] SHERLYN: 08/02/22 [facility] DR: Madhav Conrad MD ENTERED: 08/02/[address] [facility] [address]: SPEC TYPE: Surgical DEPT: S ORDERED: [...] findings support the above pathologic diagnosis. Specimen: [id number] Received: 08/02/22 Status: BIANKA Meyer Num: [id number] Spec Type: Surgical Subm Dr: Madhav Conrad MD Tissues: A Gastric Biopsy (GASTRIC BX) Procedures: HE Stain/2, Gross/Micro L4 Patient: Narciso Velasquez [id number] (Continued) Specimen: [id number] Received: 08/02/22 (Continued) Signed (signature on file) Donita Severino MD 08/04/22 1313 Specimen: [id number] Received: 08/02/22 Status: BIANKA Clary Num: [id number] Spec Type: Surgical Subm Dr: Madhav Conrad MD Tissues: A Gastric Biopsy (GASTRIC BX) Procedures: LYSSA Mcclain/2, Gross/Micro L4 Patient: Jesse Velasquezjohanna Meza [id number] (Continued) Specimen: [id number] Received: 08/02/22 (Continued) CPT Codes 85542 Specimen: [id number] Received: 08/02/22 Status: BIANKA Meyer Num: [id number] Spec Type: Surgical Subm Dr: Madhav Conrad MD Tissues: A Gastric Biopsy (GASTRIC BX) Procedures: HE Stain/2, Gross/Micro L4 Patient: RonNarciso [id number] (Continued) Signed (signature on file) Donita Severino MD 08/04/22 1313 Normal [facility] SARS-CoV-2 (COVID-19) RNA GAUDENCIO+probe Ql (Unsp spec) Negative Normal Negative [facility] Comment on above: Order Comment: Healt hcare Worker?: N Result Comment: Testing for SARS-CoV-2 by RT-PCR This test was developed and its performance characteristics determined by [employer] and validated at the [facility]. This test has not been FDA cleared [...] is terminated or revoked sooner. PERFORMED BY: [place] [address] PATHOLOGIST SPRING BENDER CHELSY MAHMOOD M.D. Performed By: #### C OVID 19 [facility] #### [address] COVID-19 Positive/NegativeOr dered By: Madhav Conrad on 07-29-2022 SARS-CoV-2 (COVID-19) N gene GAUDENCIO+probe Ql (Resp) Negative Negative [facility] Comment on above: Testing for SARS-CoV -2 by RT-PCRThis test was developed and its performance characteristics determined by [employer]) and validated at the [facility]. This test has not been FDA cleared [...] 07-11-2022 BASO # 0.1 103/ul Normal 0.0-0.1 [facility] Comment on above: Performed By: #### C BC #### [facility] [address] [place] [address] Dr. Emilie Jeronimo Basophils/100 WBC (Bld) 0.6 % Normal 0.2-2.0 [facility] Comment on above: Performed By: #### C BC #### [facility] [address] [place] [address] Dr. Emilie Jeronimo EO # 0.2 103/ul Normal 0.0-0.7 [facility] Comment on above: Performed By: #### C BC #### [facility] [address] [place] [address] Dr. Emilie Jeronimo Eosinophils/100 WBC (Bld) 1.9 % Normal 0.9-7.0 [facility] Comment on above: Performed By: #### C BC #### [facility] [address] [place] [address] Dr. Emilie Jeronimo Erythrocyte distribution width (RBC) [Ratio] 13.2 % Normal 11.0-15.0 [facility] Comment on above: Performed By: #### C BC #### [facility] [address] [place] [address] Dr. Emilie Jeronimo Hematocrit (Bld) [Volume fraction] 37.9 % Normal 36.0-48.0 [facility] Comment on above: Performed By: #### C BC #### [facility] [address] [place] [address] Dr. Emilie Jeronimo Hemoglobin (Bld) [Mass/Vol] 12.2 g/dL Normal 12.0-16.0 [facility] Comment on above: Performed By: #### C BC #### [facility] [address] [place] [address] Dr. Emilie Jeronimo IG # 0.03 10e3/ul Normal 0.00-0.03 [facility] Comment on above: Performed By: #### C BC #### [facility] Laboratory [address] [place] [address] Dr. Emilie Jeronimo IG % 0.4 % Normal 0.0-0.5 [facility] Comment on above: Performed By: #### C BC #### [facility] [address] [place] [address] Dr. Emilie Jeronimo LYMPH # 2.3 103/ul Normal 1.2-3.8 [facility] Comment on above: Performed By: #### C BC #### [facility] [address] [place] [address] Dr. Emilie Jeronimo Lymphocytes/100 WBC (Bld) 29.0 % Normal 20.5-60.0 [facility] Comment on above: Performed By: #### C BC #### [facility] [address] [place] [address] Dr. Emilie Jeronimo MANUAL DIFF REQ NO Normal [facility] Comment on above: Performed By: #### C BC #### [facility] [address] [place] [address] Dr. Emilie Jeronimo MCH (RBC) [Entitic mass] 32.4 pg Normal 26.7-34.0 [facility] Comment on above: Performed By: #### C BC #### [facility] [address] [place] [address] Dr. Emilie Jeronimo MCHC (RBC) [Mass/Vol] 32.2 g/dL Normal 29.9-35.2 [facility] Comment on above: Performed By: #### C BC #### [facility] [address] [address] [address] Emilie Jeronimo MCV (RBC) [Entitic vol] 100.5 fL Critically high 81.0-99.0 [facility] Comment on above: Performed By: #### C BC #### [facility] [address] [address] [address] Emilie Jeronimo MONO # 0.6 103/ul Normal 0.3-0.8 [facility] Comment on above: Performed By: #### C BC #### [facility] [address] [address] [address] Emilie Jeronimo Monocytes/100 WBC (Bld) 7.9 % Normal 1.7-12.0 [facility] Comment on above: Performed By: #### C BC #### [facility] [address] [address] [address] Emilie Jeronimo NEUT # 4.7 103/ul Normal 1.4-6.5 [facility] Comment on above: Performed By: #### C BC #### [facility] [address] [address] [address] Emilie Jeronimo Neutrophils/100 WBC (Bld) 60.2 % Normal 43.0-75.0 [facility] Comment on above: Performed By: #### C BC #### [facility] [address] [address] [address] Emilie Jeronimo Platelet mean volume (Bld) [Entitic vol] 10.0 fL Normal 9.5-13.5 [facility] Comment on above: Performed By: #### C BC #### [facility] [address] [address] [address] Emilie Jeronimo PLT 234 103/ul Normal 150-450 [facility] Comment on above: Performed By: #### C BC #### [facility] [address] [address] [address] Emilie Jeronimo RBC 3.77 106/ul Critically low 4.20-5.40 [facility] Comment on above: Performed By: #### C BC #### [facility] [address] [place] [address] Dr. Emilie Jeronimo WBC 7.8 103/ul Normal 4.0-11.0 [facility] Comment on above: Performed By: #### C BC #### [facility] [address] [place] [address] Dr. Emilie Jeronimo FREE T4on 07-11-2022 Free T4 [Mass/Vol] 0.79 ng/dL Normal 0.76-1.46 [facility] Comment on above: Performed By: #### R ENAL, MG #### [facility] [address] [place] [address] Dr. Emilie eJronimo PROF 14(COMP METB)on 022 Albumin [Mass/Vol] 3.7 g/dL Normal 3.4-5.0 [facility] Comment on above: Performed By: #### R ENAL, MG #### [facility] [address] [place] [address] Dr. Emilie Jeronimo Albumin/Globulin [Mass ratio] 1.2 {ratio} Normal [facility] Comment on above: Performed By: #### R ENAL, MG #### [facility] [address] [place] [address] Dr. Emilie Jeronimo ALP [Catalytic activity/Vol] 53 U/L Normal 46-116 [facility] Comment on above: Performed By: #### R ENAL, MG #### [facility] [address] [place] [address] Dr. Emilie Jeronimo ALT [Catalytic activity/Vol] 26 U/L Normal 14-59 [facility] Comment on above: Performed By: #### R ENAL, MG #### [facility] [address] [place] [address] Dr. Emilie Jeronimo Anion gap [Moles/Vol] 8.9 mmol/L Normal [facility] Comment on above: Performed By: #### R ENAL, MG #### [facility] [address] [place] [address] Dr. Emilie Jeronimo AST [Catalytic activity/Vol] 18 U/L Normal 15-37 [facility] Comment on above: Performed By: #### R ENAL, MG #### [facility] [address] [place] [address] Dr. Emilie Jeronimo Bilirubin [Mass/Vol] 0.3 mg/dL Normal 0.2-1.0 [facility] Comment on above: Performed By: #### R ENAL, MG #### [facility] [address] [place] [address] Dr. Emilie Jeronimo Calcium [Mass/Vol] 9.1 mg/dL Normal 8.5-10.1 [facility] Comment on above: Performed By: #### R ENAL, MG #### [facility] [address] [place] [address] Dr. Emilie Jeronimo Chloride [Moles/Vol] 104 mmol/L Normal 98-107 [facility] Comment on above: Performed By: #### R ENAL, MG #### [facility] [address] [place] [address] Dr. Emilie Jeronimo CO2 [Moles/Vol] 34.8 mmol/L Critically high 21.0-32.0 [facility] Comment on above: Performed By: #### R ENAL, MG #### [facility] [address] [place] [address] Dr. Emilie Jeronimo Creatinine [Mass/Vol] 0.73 mg/dL Normal 0.55-1.02 [facility] Comment on above: Performed By: #### R ENAL, MG #### [facility] [address] [place] [address] Dr. Emilie Jeronimo EGFR-AF SPANISH >60 Normal >=60 [facility] Comment on above: Performed By: #### R ENAL, MG #### [facility] [address] [place] [address] Dr. Emilie Jeronimo EGFR-NON AF SPANISH >60 Normal >=60 [facility] Comment on above: Performed By: #### R ENAL, MG #### [facility] [address] [place] [address] Dr. Emilie Jeronimo Globulin (S) [Mass/Vol] 3.2 g/dL Normal [facility] Comment on above: Performed By: #### R ENAL, MG #### [facility] [address] [place] [address] Dr. Emilie Jeronimo Glucose [Mass/Vol] 109 mg/dL Critically high 74-106 [facility] Comment on above: Performed By: #### R ENAL, MG #### [facility] [address] [place] [address] Dr. Emilie Jeronimo Potassium [Moles/Vol] 3.7 mmol/L Normal 3.5-5.1 [facility] Comment on above: Performed By: #### R ENAL, MG #### [facility] [address] [place] [address] Dr. Emilie Jeronimo Protein [Mass/Vol] 6.9 g/dL Normal 6.4-8.2 [facility] Comment on above: Performed By: #### R ENAL, MG #### [facility] [address] [place] [address] Dr. Emilie Jeronimo Sodium [Moles/Vol] 144 mmol/L Normal 136-145 [facility] Comment on above: Performed By: #### R ENAL, MG #### [facility] [address] [place] [address] Dr. Emilie Jeronimo Urea nitrogen [Mass/Vol] 20.0 mg/dL Critically high 7.0-18.0 [facility] Comment on above: Performed By: #### R ENAL, MG #### [facility] [address] [place] [address] Dr. Emilie Jeronimo Urea nitrogen/Creatinine [Mass ratio] 27.4 mg/mg Normal [facility] Comment on above: Performed By: #### R ENAL, MG #### [facility] [address] [place] [address] Dr. Emilie Jeronimo TSHon 07-11-2022 TSH 3.616 uIU/mL Normal 0.358-3.740 [facility] Comment on above: Performed By: #### R ENAL, MG #### [facility] [address] [place] [address] Dr. Emilie Jeronimo VITAMIN B12on 07-11-2022 Cobalamin (Vitamin B12) [Mass/Vol] 321.0 pg/mL Normal 193.0-986.0 [facility] Comment on above: Performed By: #### R ZEESHAN, MG #### [facility] [address] [place] [address] Dr. Emilie Jeronimo Tobacco Screening.on 022 Fall risk assessment a) No falls within the last year -Merged With [facility] y [address] DO Work Phone: Tobacco use status [facility] b) No -Merged With [facility] [address] DO Work Phone: CBC AUTO DIFFon 06-15-2022 BASO # 0.0 103/ul Normal 0.0-0.1 [facility] Comment on above: Performed By: #### C BC #### [facility] [address] [place] [address] Dr. Emilie Jeronimo Basophils/100 WBC (Bld) 0.4 % Normal 0.2-2.0 [facility] Comment on above: Performed By: #### C BC #### [facility] [address] [place] [address] Dr. Emilie Jeronimo EO # 0.2 103/ul Normal 0.0-0.7 [facility] Comment on above: Performed By: #### C BC #### [facility] [address] [place] [address] Dr. Emilie Jeronimo Eosinophils/100 WBC (Bld) 2.4 % Normal 0.9-7.0 [facility] Comment on above: Performed By: #### C BC #### [facility] [address] [place] [address] Dr. Emilie Jeronimo Erythrocyte distribution width (RBC) [Ratio] 12.8 % Normal 11.0-15.0 [facility] Comment on above: Performed By: #### C BC #### [facility] [address] [place] [address] Dr. Emilie Jeronimo Hematocrit (Bld) [Volume fraction] 38.3 % Normal 36.0-48.0 [facility] Comment on above: Performed By: #### C BC #### [facility] [address] [place] [address] Dr. Emilie Jeronimo Hemoglobin (Bld) [Mass/Vol] 12.5 g/dL Normal 12.0-16.0 [facility] Comment on above: Performed By: #### C BC #### [facility] [address] [place] [address] Dr. Emilie Jeronimo IG # 0.04 10e3/ul Critically high 0.00-0.03 [facility] Comment on above: Performed By: #### C BC #### [facility] [address] [place] [address] Dr. Emilie Jeronimo IG % 0.6 % Critically high 0.0-0.5 [facility] Comment on above: Performed By: #### C BC #### [facility] [address] [place] [address] Dr. Emilie Jeronimo LYMPH # 1.9 103/ul Normal 1.2-3.8 [facility] Comment on above: Performed By: #### C BC #### [facility] [address] [place] [address] Dr. Emilie Jeronimo Lymphocytes/100 WBC (Bld) 27.9 % Normal 20.5-60.0 [facility] Comment on above: Performed By: #### C BC #### [facility] [address] [place] [address] Dr. Emilie Jeronimo MANUAL DIFF REQ NO Normal [facility] Comment on above: Performed By: #### C BC #### [facility] [address] [place] [address] Dr. Emilie Jeronimo MCH (RBC) [Entitic mass] 32.2 pg Normal 26.7-34.0 [facility] Comment on above: Performed By: #### C BC #### [facility] [address] [place] [address] Dr. Emilie Jeronimo MCHC (RBC) [Mass/Vol] 32.6 g/dL Normal 29.9-35.2 [facility] Comment on above: Performed By: #### C BC #### [facility] [address] [address] [address] Emilie Jeronimo MCV (RBC) [Entitic vol] 98.7 fL Normal 81.0-99.0 [facility] Comment on above: Performed By: #### C BC #### [facility] [address] [address] [address] Emilie Jeronimo MONO # 0.5 103/ul Normal 0.3-0.8 [facility] Comment on above: Performed By: #### C BC #### [facility] [address] [address] [address] Emilie Jeronimo Monocytes/100 WBC (Bld) 7.3 % Normal 1.7-12.0 [facility] Comment on above: Performed By: #### C BC #### [facility] [address] [address] [address] Emilie Jeronimo NEUT # 4.1 103/ul Normal 1.4-6.5 [facility] Comment on above: Performed By: #### C BC #### [facility] [address] [address] [address] Emilie Jeronimo Neutrophils/100 WBC (Bld) 61.4 % Normal 43.0-75.0 [facility] Comment on above: Performed By: #### C BC #### [facility] [address] [address] [address] Emilie Jeronimo Platelet mean volume (Bld) [Entitic vol] 9.2 fL Critically low 9.5-13.5 [facility] Comment on above: Performed By: #### C BC #### [facility] [address] [address] [address] Emilie Jeronimo PLT 201 103/ul Normal 150-450 [facility] Comment on above: Performed By: #### C BC #### [facility] [address] [address] [address] Emilie Jeronimo RBC 3.88 106/ul Critically low 4.20-5.40 [facility] Comment on above: Performed By: #### C BC #### [facility] [address] [address] [address] Emilie Jeronimo WBC 6.7 103/ul Normal 4.0-11.0 [facility] Comment on above: Performed By: #### C BC #### [facility] [address] [address] [address] Emilie Jeronimo LIPID PROFILEon 06-15-2022 CHOL-HDL RATIO NORM SEE BELOW Normal [facility] Comment on above: Result Comment: 3.3 - 4.4 LOW RISK 4.4 - 7.1 AVERAGE RISK 7.1 - 11.0 MODERATE RISK >11.0 HIGH RISK Performed By: #### A ST, ALT, LIPID, BMP #### [facility] [address] [address] [address] Emilie Jeronimo Cholesterol [Mass/Vol] 124 mg/dL Normal <=200 [facility] Comment on above: Performed By: #### A ST, ALT, LIPID, BMP #### [facility] [address] [address] [address] Emilie Jeronimo Cholesterol in HDL [Mass/Vol] 81 mg/dL Critically high 40-60 [facility] Comment on above: Performed By: #### A ST, ALT, LIPID, BMP #### [facility] [address] [address] [address] Emilie Jeronimo Cholesterol in LDL [Mass/Vol] 27.6 mg/dL Normal [facility] Comment on above: Performed By: #### A ST, ALT, LIPID, BMP #### [facility] [address] [address] [address] Emilie Jeronimo Cholesterol.total/C holesterol in HDL [Mass ratio] 1.5 {ratio} Normal [facility] Comment on above: Performed By: #### A ST, ALT, LIPID, BMP #### [facility] [address] [address] [address] Emilie Jeronimo HDL NORMAL > or = 60 mg/dl - LO W CARDIOVASCULAR RISK <40 mg/dl - HIGH CARDIOVASCULAR RISK Normal [facility] Comment on above: Performed By: #### A ST, ALT, LIPID, BMP #### [facility] [address] [place] [address] Dr. Emilie Jeronimo LDL CALC NORMAL SEE BELOW Normal [facility] Comment on above: Result Comment: <100 mg/dl OPTIMAL 100 - 129 mg/dl NEAR OR ABOVE OPTIMAL 130 - 159 mg/dl BORDERLINE HIGH 160 - 189 mg/dl HIGH >190 mg/dl VERY HIGH Performed By: #### A ST, ALT, LIPID, BMP #### [facility] [address] [address] [address] Emilie Jeronimo Triglyceride [Mass/Vol] 77 mg/dL Normal <=150 [facility] Comment on above: Performed By: #### A ST, ALT, LIPID, BMP #### [facility] [address] [place] [address] Dr. Emilie Jeronimo VLDL CALC 15.4 mg/dL Normal [facility] Comment on above: Performed By: #### A ST, ALT, LIPID, BMP #### [facility] [address] [place] [address] Dr. Emilie Jeronimo PROF CHEM 8 (BAS METB)on Anion gap [Moles/Vol] 12.7 mmol/L Normal [facility] Comment on above: Performed By: #### A ST, ALT, LIPID, BMP #### [facility] [address] [place] [address] Dr. Emilie Jeronimo Calcium [Mass/Vol] 8.5 mg/dL Normal 8.5-10.1 [facility] Comment on above: Performed By: #### A ST, ALT, LIPID, BMP #### [facility] [address] [place] [address] Dr. Emilie Jeronimo Chloride [Moles/Vol] 102 mmol/L Normal 98-107 [facility] Comment on above: Performed By: #### A ST, ALT, LIPID, BMP #### [facility] [address] [place] [address] Dr. Emilie Jeronimo CO2 [Moles/Vol] 30.1 mmol/L Normal 21.0-32.0 [facility] Comment on above: Performed By: #### A ST, ALT, LIPID, BMP #### [facility] [address] [address] [address] Emilie Jeronimo Creatinine [Mass/Vol] 0.76 mg/dL Normal 0.55-1.02 [facility] Comment on above: Performed By: #### A ST, ALT, LIPID, BMP #### [facility] [address] [address] [address] Emilie Jeronimo EGFR-AF SPANISH >60 Normal >=60 [facility] Comment on above: Performed By: #### A ST, ALT, LIPID, BMP #### [facility] [address] [address] [address] Emilie Jeronimo EGFR-NON AF SPANISH >60 Normal >=60 [facility] Comment on above: Performed By: #### A ST, ALT, LIPID, BMP #### [facility] [address] [address] [address] Emilie Jeronimo Glucose [Mass/Vol] 97 mg/dL Normal 74-106 [facility] Comment on above: Performed By: #### A ST, ALT, LIPID, BMP #### [facility] [address] [address] [address] Emilie Jeronimo Potassium [Moles/Vol] 3.8 mmol/L Normal 3.5-5.1 [facility] Comment on above: Performed By: #### A ST, ALT, LIPID, BMP #### [facility] [address] [address] [address] Emilie Jeronimo Sodium [Moles/Vol] 141 mmol/L Normal 136-145 [facility] Comment on above: Performed By: #### A ST, ALT, LIPID, BMP #### [facility] [address] [address] [address] Emilie Jeronimo Urea nitrogen [Mass/Vol] 21.0 mg/dL Critically high 7.0-18.0 [facility] Comment on above: Performed By: #### A ST, ALT, LIPID, BMP #### [facility] [address] [address] [address] Emilie Jeronimo Urea nitrogen/Creatinine [Mass ratio] 27.6 mg/mg Normal [facility] Comment on above: Performed By: #### A ST, ALT, LIPID, BMP #### [facility] [address] [address] [address] Emilie Jeronimo SGOTon 06-15-2022 AST [Catalytic activity/Vol] 22 U/L Normal 15-37 [facility] Comment on above: Performed By: #### A ST, ALT, LIPID, BMP #### [facility] [address] [address] [address] Emilie Jeronimo SGPTon 06-15-2022 ALT [Catalytic activity/Vol] 21 U/L Normal 14-59 [facility] Comment on above: Performed By: #### A ST, ALT, LIPID, BMP #### [facility] [address] [address] ABD/PELVIS WO CONon [...] JAYLEEN GREER Date: 2022-04-21 10:40 Normal [facility] PTH INTACTon 03-24-2022 PTH, Intact 4 pg/mL Critically low 15-65 [facility] Comment on above: Performed By: #### P THINT #### [facility] [address] [address] [address] Emilie Jeronimo CBC AUTO DIFFon 03-23-2022 BASO # 0.0 103/ul Normal 0.0-0.1 [facility] Comment on above: Performed By: #### R ZEESHAN, MG #### [facility] [address] [place] [address] Dr. Emilie Jeronimo Basophils/100 WBC (Bld) 0.5 % Normal 0.2-2.0 [facility] Comment on above: Performed By: #### R ENMICHELLE, MG #### [facility] [address] [address] [address] Emilie Jeronimo EO # 0.1 103/ul Normal 0.0-0.7 [facility] Comment on above: Performed By: #### R ENAL, MG #### [facility] [address] [place] [address] Dr. Emilie Jeronimo Eosinophils/100 WBC (Bld) 1.3 % Normal 0.9-7.0 [facility] Comment on above: Performed By: #### R ENAL, MG #### [facility] [address] [address] [address] Emilie Jeronimo Erythrocyte distribution width (RBC) [Ratio] 13.0 % Normal 11.0-15.0 [facility] Comment on above: Performed By: #### R ENMICHELLE, MG #### [facility] [address] [place] [address] Dr. Emilie Jeronimo Hematocrit (Bld) [Volume fraction] 34.2 % Critically low 36.0-48.0 [facility] Comment on above: Performed By: #### R ENAL, MG #### [facility] [address] [address] [address] Emilie Jeronimo Hemoglobin (Bld) [Mass/Vol] 11.3 g/dL Critically low 12.0-16.0 [facility] Comment on above: Performed By: #### R ENAL, MG #### [facility] [address] [address] [address] Emilie Jeronimo IG # 0.02 10e3/ul Normal 0.00-0.03 [facility] Comment on above: Performed By: #### R ENAL, MG #### [facility] [address] [address] [address] Emilie Jeronimo IG % 0.3 % Normal 0.0-0.5 [facility] Comment on above: Performed By: #### R ENAL, MG #### [facility] [address] [place] [address] Dr. Emilie Jeronimo LYMPH # 1.4 103/ul Normal 1.2-3.8 [facility] Comment on above: Performed By: #### R ENAL, MG #### [facility] [address] [place] [address] Dr. Emilie Jeronimo Lymphocytes/100 WBC (Bld) 24.0 % Normal 20.5-60.0 [facility] Comment on above: Performed By: #### R ENAL, MG #### [facility] [address] [place] [address] Dr. Emilie Jeronimo MANUAL DIFF REQ NO Normal [facility] Comment on above: Performed By: #### R ENAL, MG #### [facility] [address] [address] [address] Emilie Jeronimo MCH (RBC) [Entitic mass] 32.5 pg Normal 26.7-34.0 [facility] Comment on above: Performed By: #### R ENAL, MG #### [facility] [address] [place] [address] Dr. Emilie Jeornimo MCHC (RBC) [Mass/Vol] 33.0 g/dL Normal 29.9-35.2 [facility] Comment on above: Performed By: #### R ENAL, MG #### [facility] [address] [place] [address] Dr. Emilie Jeronimo MCV (RBC) [Entitic vol] 98.3 fL Normal 81.0-99.0 [facility] Comment on above: Performed By: #### R ENAL, MG #### [facility] [address] [place] [address] Dr. Emilie Jeronimo MONO # 0.5 103/ul Normal 0.3-0.8 [facility] Comment on above: Performed By: #### R ENAL, MG #### [facility] [address] [place] [address] Dr. Emilie Jeronimo Monocytes/100 WBC (Bld) 8.7 % Normal 1.7-12.0 [facility] Comment on above: Performed By: #### R ENAL, MG #### [facility] [address] [place] [address] Dr. Emilie Jeronimo NEUT # 3.9 103/ul Normal 1.4-6.5 [facility] Comment on above: Performed By: #### R ENAL, MG #### [facility] [address] [place] [address] Dr. Emilie Jeronimo Neutrophils/100 WBC (Bld) 65.2 % Normal 43.0-75.0 [facility] Comment on above: Performed By: #### R ENAL, MG #### [facility] [address] [place] [address] Dr. Emilie Jeronimo Platelet mean volume (Bld) [Entitic vol] 10.0 fL Normal 9.5-13.5 [facility] Comment on above: Performed By: #### R ENAL, MG #### [facility] [address] [place] [address] Dr. Emilie Jeronimo PLT 197 103/ul Normal 150-450 [facility] Comment on above: Performed By: #### R ENAL, MG #### [facility] [address] [place] [address] Dr. Emilie Jeronimo RBC 3.48 106/ul Critically low 4.20-5.40 [facility] Comment on above: Performed By: #### R ENAL, MG #### [facility] [address] [place] [address] Dr. Emilie Jeronimo WBC 6.0 103/ul Normal 4.0-11.0 [facility] Comment on above: Performed By: #### R ENMICHELLE, MG #### [facility] [address] [place] [address] Dr. Emilie Jeronimo PROF CHEM 8 (BAS METB)on Anion gap [Moles/Vol] 10.3 mmol/L Normal [facility] Comment on above: Performed By: #### R ENMICHELLE, MG #### [facility] [address] [place] [address] Dr. Emilie Jeronimo Calcium [Mass/Vol] 6.1 mg/dL Critically low 8.5-10.1 [facility] Comment on above: Performed By: #### R ENMICHLELE, MG #### [facility] [address] [place] [address] Dr. Emilie Jeronimo Chloride [Moles/Vol] 103 mmol/L Normal 98-107 [facility] Comment on above: Performed By: #### R ENMICHELLE, MG #### [facility] [address] [place] [address] Dr. Emilie Jeronimo CO2 [Moles/Vol] 31.8 mmol/L Normal 21.0-32.0 [facility] Comment on above: Performed By: #### R ENMICHELLE, MG #### [facility] [address] [place] [address] Dr. Emilie Jeronimo Creatinine [Mass/Vol] 0.70 mg/dL Normal 0.55-1.02 [facility] Comment on above: Performed By: #### R ENMICHELLE, MG #### [facility] [address] [place] [address] Dr. Emilie Jeronimo EGFR-AF SPANISH >60 Normal >=60 [facility] Comment on above: Performed By: #### R ENMICHELLE, MG #### [facility] [address] [place], [place] [id number] Dr. Emilie Jeronimo EGFR-NON AF SPANISH >60 Normal >=60 [facility] Comment on above: Performed By: #### R ZEESHAN, MG #### [facility] [address] [place] [address] Dr. Emilie Jeronimo Glucose [Mass/Vol] 120 mg/dL Critically high 74-106 [facility] Comment on above: Performed By: #### R ENMICHELLE, MG #### [facility] [address] [place] [address] Dr. Emilie Jeronimo Potassium [Moles/Vol] 3.1 mmol/L Critically low 3.5-5.1 [facility] Comment on above: Performed By: #### R ENMICHELLE, MG #### [facility] [address] [place] [address] Dr. Emilie Jeronimo Sodium [Moles/Vol] 142 mmol/L Normal 136-145 [facility] Comment on above: Performed By: #### R ZEESHAN, MG #### [facility] [address] [place] [address] Dr. Emilie Jeronimo Urea nitrogen [Mass/Vol] 21.0 mg/dL Critically high 7.0-18.0 [facility] Comment on above: Performed By: #### R ZEESHAN, MG #### [facility] [address] [place] [address] Dr. Emilie Jeronimo Urea nitrogen/Creatinine [Mass ratio] 30.0 mg/mg Normal [facility] Comment on above: Performed By: #### R ZEESHAN, MG #### [facility] [address] [place] [address] Dr. Emilie Jeronimo MAGNESIUMon 03-22-2022 Magnesium [Mass/Vol] 1.5 mg/dL Critically low 1.8-2.4 [facility] Comment on above: Performed By: #### R ZEESHAN, MG #### [facility] [address] [place] [address] Dr. Emilie Jeronimo RENAL FUNCTION PANELon 03-22 Albumin [Mass/Vol] 3.6 g/dL Normal 3.4-5.0 [facility] Comment on above: Performed By: #### R ENAL, MG #### [facility] [address] [address] [address] Emilie Jeronimo Calcium [Mass/Vol] 6.4 mg/dL Critically low 8.5-10.1 [facility] Comment on above: Performed By: #### R ENAL, MG #### [facility] [address] [address] [address] Emilie Jeronimo Chloride [Moles/Vol] 101 mmol/L Normal 98-107 [facility] Comment on above: Performed By: #### R ENAL, MG #### [facility] [address] [place] [address] Dr. Emilie Jeronimo CO2 [Moles/Vol] 31.4 mmol/L Normal 21.0-32.0 [facility] Comment on above: Performed By: #### R ENAL, MG #### [facility] [address] [place] [address] Dr. mEilie Jeronimo Creatinine [Mass/Vol] 0.77 mg/dL Normal 0.55-1.02 [facility] Comment on above: Performed By: #### R ENAL, MG #### [facility] [address] [place] [address] Dr. Emilie Jeronimo EGFR-AF SPANISH >60 Normal >=60 [facility] Comment on above: Performed By: #### R ENAL, MG #### [facility] [address] [place] [address] Dr. Emilie Jeronimo EGFR-NON AF SPANISH >60 Normal >=60 [facility] Comment on above: Performed By: #### R ENAL, MG #### [facility] [address] [place] [address] Dr. Emilie Jeronimo Glucose [Mass/Vol] 150 mg/dL Critically high 74-106 [facility] Comment on above: Performed By: #### R ENAL, MG #### [facility] [address] [place] [address] Dr. Emilie Jeronimo Phosphate [Mass/Vol] 4.8 mg/dL Critically high 2.6-4.7 [facility] Comment on above: Performed By: #### R ENAL, MG #### [facility] [address] [address] [address] Emilie Jeronimo Potassium [Moles/Vol] 2.7 mmol/L Critically low 3.5-5.1 [facility] Comment on above: Result Comment: TEST REPEATED CRITICAL VALUE VERIFIED Performed By: #### R ZEESHAN, MG #### [facility] [address] [place] [address] Dr. Emilie Jeronimo Sodium [Moles/Vol] 142 mmol/L Normal 136-145 [facility] Comment on above: Performed By: #### R ZEESHAN, MG #### [facility] [address] [place] [address] Dr. Emilie Jeronimo Urea nitrogen [Mass/Vol] 29.0 mg/dL Critically high 7.0-18.0 [facility] Comment on above: Performed By: #### R ZEESHAN, MG #### [facility] [address] [place] [address] Dr. Emilie Jeronimo VITAMIN D 25 OHon 03-22-2022 VIT D 25-OH 32.5 ng/mL Normal [facility] Comment on above: Performed By: #### V ITAD #### [facility] [address] [place] [address] Dr. Emilie Jeronimo VIT D RANGES SEE BELOW Normal [facility] Comment on above: Result Comment: <20 ng/mL Vit D deficient 20 - <30 ng/mL Vit D insufficient 30 - 100 ng/mL Vit D sufficient >100 ng/mL Potential Toxicity Performed By: #### V ITAD #### [facility] [address] [place] [address] Dr. Emilie Jeronimo Tobacco Screening.on 022 Adult depression screening assessment No [facility] DO Work Phone: Fall risk assessment a) No falls within the last year [facility] DO Work Phone: Tobacco use status CP b) No [facility] DO Work Phone: Automated erythrocytes count in urine sediment (number/area)on 02-17-2021 RBC Auto (Urine sed) [#/Area] 0-1 [HPF] [facility] Automated leukocytes count i n urine sediment (number/area)on 02-17-2021 WBC Auto (Urine sed) [#/Area] 20-49 [HPF] [facility] Basophils Auto (Bld) [#/Vol] on 02-17-2021 Basophils (Bld) [#/Vol] 0.1 10*3/uL 0.0-0.2 [facility] Basophils/100 WBC Auto (Bld) on 02-17-2021 Basophils/100 WBC (Bld) 0.8 % [facility] Bilirubin Test strip Ql (U)o n 02-17-2021 Bilirubin Ql (U) Negative Negative [facility] Blood hemoglobin measurement (mass/volume)on 02-17-2021 Hemoglobin (Bld) [Mass/Vol] 12.6 g/dL 11.8-15.4 [facility] Blood leukocytes automated c ount (number/volume)on 02-17-2021 WBC (Bld) [#/Vol] 7.3 10*3/uL 4.5-11.0 [facility] Color Auto (U)on 02-17-2021 Color (U) Yellow Yellow [facility] Creatinine and Glomerular fi ltration rate.predicted panel (S/P/Bld)on 02-17-2021 Creatinine [Mass/Vol] 0.78 mg/dL 0.44-1.03 [facility] Eosinophils Auto (Bld) [#/Vo l]on 02-17-2021 Eosinophils (Bld) [#/Vol] 0.2 10*3/uL 0.0-0.45 [facility] Eosinophils/100 WBC Auto (Bl d)on 02-17-2021 Eosinophils/100 WBC (Bld) 2.2 % [facility] Erythrocyte distribution wid th Auto (RBC) [Ratio]on 02-17-2021 Erythrocyte distribution width (RBC) [Ratio] 14.5 % 11.9-15.3 [facility] Estimated glomerular filtrat ion rate (GFR) non- Americanon 02-17-2021 GFR/1.73 sq M.predicted among non-blacks MDRD (S/P/Bld) [Vol rate/Area] > 60 mL/Min [facility] Hematocrit Auto (Bld) [Volum e fraction]on 02-17-2021 Hematocrit (Bld) [Volume fraction] 37.5 % 34.0-46.4 [facility] Ketones Auto test strip (U) [Mass/Vol]on 02-17-2021 Ketones (U) [Mass/Vol] Negative Negative [facility] - Hematology and Cell countson 02-17-2021 Nucleated RBC/100 WBC (Bld) [Ratio] 0.0 % 0-0.5 [facility] - Urinalysison Hyaline casts LM Ql (Urine sed) 0-8 [LPF] [facility] Lymphocytes Auto (Bld) [#/Vo l]on 02-17-2021 Lymphocytes (Bld) [#/Vol] 1.6 10*3/uL 1.00-4.8 [facility] Lymphocytes/100 WBC Auto (Bl d)on 02-17-2021 Lymphocytes/100 WBC (Bld) 21.5 % [facility] MCH Auto (RBC) [Entitic mass ]on 02-17-2021 MCH (RBC) [Entitic mass] 32.4 pg 24.7-34.3 [facility] MCHC Auto (RBC) [Mass/Vol]on 02-17-2021 MCHC (RBC) [Mass/Vol] 33.6 g/dL 32.0-35.0 [facility] MCV Auto (RBC) [Entitic vol] on 02-17-2021 MCV (RBC) [Entitic vol] 96.3 fL 80-100 [facility] Monocytes Auto (Bld) [#/Vol] on 02-17-2021 Monocytes (Bld) [#/Vol] 0.7 10*3/uL 0.0-0.8 [facility] Monocytes/100 WBC Auto (Bld) on 02-17-2021 Monocytes/100 WBC (Bld) 9.6 % [facility] Neutrophils Auto (Bld) [#/Vo l]on 02-17-2021 Neutrophils (Bld) [#/Vol] 4.8 10*3/uL 1.8-7.7 [facility] Neutrophils/100 WBC Auto (Bl d)on 02-17-2021 Neutrophils/100 WBC (Bld) 65.9 % [facility] Nitrite Test strip Ql (U)on 02-17-2021 Nitrite Ql (U) Negative Negative [facility] No Panel Informationon 02-17 Estimated GFR () > 60 mL/Min [facility] Comment on above: GFR estimated refere nce range: According to KDOQI guidelines, <60 ml/min/1.73m2 is sufficient to diagnose a patient with chronic kidney disease. Pharmacy Creatinine Clearance (Chem N/A [facility] Platelet mean volume Auto (B ld) [Entitic vol]on 02-17-2021 Platelet mean volume (Bld) [Entitic vol] 7.6 fL 6.3-10.7 [facility] Platelets Auto (Bld) [#/Vol] on 02-17-2021 Platelets (Bld) [#/Vol] 206 10*3/uL 150-450 [facility] Protein Auto test strip (U) [Mass/Vol]on 02-17-2021 Protein (U) [Mass/Vol] Negative Negative [facility] RBC Auto (Bld) [#/Vol]on RBC (Bld) [#/Vol] 3.89 10*6/uL 3.60-5.00 [facility] Serum or plasma calcium twan urement (mass/volume)on 02-17-2021 Calcium [Mass/Vol] 7.6 mg/dL 8.2-10.2 [facility] Serum or plasma chloride jewel surement (moles/volume)on 02-17-2021 Chloride [Moles/Vol] 100 mmol/L 95-114 [facility] Serum or plasma glucose twan urement (mass/volume)on 02-17-2021 Glucose [Mass/Vol] 97 mg/dL 70-100 [facility] Comment on above: ADA recommended refe rence rangeRandom Glucose Reference Range is dependent on time and content of last meal. Glucose of more than 200 mg/dL in a nonstressed, ambulatory subject supports the diagnosis of Diabetes Mellitus. Serum or plasma potassium me asurement (moles/volume)on 02-17-2021 Potassium [Moles/Vol] 3.8 mmol/L 3.5-5.1 [facility] Serum or plasma sodium measu rement (moles/volume)on 02-17-2021 Sodium [Moles/Vol] 139 mmol/L 136-146 [facility] Serum or plasma total carbon dioxide measurement (moles/volume)on 02-17-2021 CO2 [Moles/Vol] 28.3 mmol/L 22.0-30.0 [facility] Serum or plasma urea nitroge n measurement (mass/volume)on 02-17-2021 Urea nitrogen [Mass/Vol] 22 mg/dL 9-23 [facility] Specific gravity Auto test s trip (U) [Rel density]on 02-17-2021 Specific gravity (U) [Rel density] 1.021 1.001-1.030 [facility] Squamous epithelial cells de tection in urine sediment by light microscopyon 02-17-2021 Epithelial cells.squamous LM Ql (Urine sed) 0-1 [HPF] [facility] Urine bacteria detection by automated methodon 02-17-2021 Bacteria Auto Ql (U) 2+ None Seen [facility] Urine clarity by refractomet ry automatedon 02-17-2021 Clarity Refractometry automated (U) Clear Clear [facility] Urine culture routineon 01-29 Bacteria identified Cx Nom (U) Aerococcus urinae [facility] Urine glucose measurement by automated test strip (mass/volume)on 02-17-2021 Glucose Auto test strip (U) [Mass/Vol] Normal mg/dL Normal [facility] Urine hemoglobin detection b y automated test stripon 02-17-2021 Hemoglobin Auto test strip Ql (U) Negative Negative [facility] Urine leukocyte esterase det ection by automated test stripon 02-17-2021 Leukocyte esterase Auto test strip Ql (U) 3+ Negative [facility] Urobilinogen Auto test strip (U) [Mass/Vol]on 02-17-2021 Urobilinogen (U) [Mass/Vol] Normal mg/dL Normal [facility] Yeast detection in urine sed iment by light microscopyon 02-17-2021 Yeast LM Ql (Urine sed) None seen [HPF] None Seen [facility] pH Auto test strip (U)on pH (U) 5.0 [pH] 5.0-9.0 [facility] Cesar 03-12-2020 ALT [Catalytic activity/Vol] 16 U/L Normal 7 - 45 [facility] Comment on above: Result Comment: Josee ents treated with Sulfasalazine may generate falsely decreased results for ALT. Performed By: #### A LT #### [address] [address] Jamari 03-12-2020 AST [Catalytic activity/Vol] 22 U/L Normal 9 - 39 [facility] Comment on above: Performed By: #### A ST #### [address] [address] CREATININEon 03-12-2020 Creatinine [Mass/Vol] mg/dL Normal >60 [facility] Comment on above: Result Comment: CALC ULATIONS OF ESTIMATED GFR ARE PERFORMED USING THE MDRD STUDY EQUATION FOR THE IDMS-TRACEABLE CREATININE METHODS. CLIN CHEM 2007;53:766-72 Performed By: #### C REAT #### [address] [address] Creatinine [Mass/Vol] 0.84 mg/dL Normal 0.50 - 1.05 [facility] Comment on above: Performed By: #### C REAT #### [address] [address] ELECTROLYTE PANELon 03-12-20 20 Anion gap [Moles/Vol] 15 mmol/L Normal 10 - 20 [facility] Comment on above: Performed By: #### E LECT #### [address] [address] Chloride [Moles/Vol] 102 mmol/L Normal 98 - 107 [facility] Comment on above: Performed By: #### E LECT #### [address] [address] HCO3 (Bld) [Moles/Vol] 30 mmol/L Normal 21 - 32 [facility] Comment on above: Performed By: #### E LECT #### [address] [address] Potassium [Moles/Vol] 4.0 mmol/L Normal 3.5 - 5.3 [facility] Comment on above: Performed By: #### E LECT #### [address] [address] Sodium [Moles/Vol] 143 mmol/L Normal 136 - 145 [facility] Comment on above: Performed By: #### E LECT #### [address] [address] LIPID PANEL (CORONARY RISK 2 )on 03-12-2020 Cholesterol [Mass/Vol] 99 mg/dL Normal 0 - 199 [facility] Comment on above: Result Comment: . AGE [...] dosing. Performed By: #### L IPID #### [address] [address] Cholesterol in HDL [Mass/Vol] 60.0 mg/dL Normal [facility] Comment on above: Result Comment: . AGE VERY LOW LOW NORMAL HIGH 0-19 Y < 35 < 40 40-45 ---- 20-24 Y ---- < 40 >45 ---- >24 Y ---- < 40 40-60 >60 . Performed By: #### L IPID #### [address] [address] Cholesterol in LDL [Mass/Vol] 23 mg/dL Normal 0 - 99 [facility] Comment on above: Result Comment: . NEAR BORD AGE DESIRABLE OPTIMAL HIGH HIGH VERY HIGH 0-19 Y 0 - 109 --- 110-129 >/= 130 ---- 20-24 Y 0 - 119 --- 120-159 >/= 160 ---- >24 Y 0 - 99 100-129 130-159 160-189 >/=190 . Performed By: #### L IPID #### [address] [address] Cholesterol in VLDL [Mass/Vol] 16 mg/dL Normal 0 - 40 [facility] Comment on above: Performed By: #### L IPID #### [address] [address] Cholesterol.total/C holesterol in HDL [Mass ratio] 1.7 {ratio} Normal [facility] Comment on above: Result Comment: REF VALUES DESIRABLE < 3.4 HIGH RISK > 5.0 Performed By: #### L IPID #### [address] [address] Triglyceride [Mass/Vol] 79 mg/dL Normal 0 - 149 [facility] Comment on above: Result Comment: . AGE [...] dosing. Performed By: #### L IPID #### [address] [address] PARATHYROID HORMONE,INTACTon 03-12-2020 PARATHYROID HORMONE,INTACT < 6.3 Low 18.5 - 88.0 [facility] Comment on above: Result Comment: Josee ents receiving more than 5 mg/day of biotin may have interference in test results. A sample should be taken no sooner than eight hours after previous dose. Contact the testing laboratory for additional information. Performed By: #### P TH #### [address] [address] RENAL FUNCTION PANELon 03-12 Albumin [Mass/Vol] 4.3 g/dL Normal 3.4 - 5.0 [facility] Comment on above: Performed By: #### T SH2 #### [address] [address] Anion gap [Moles/Vol] 16 mmol/L Normal 10 - 20 [facility] Comment on above: Performed By: #### T SH2 #### [address] [id number] Calcium [Mass/Vol] 8.2 mg/dL Low 8.6 - 10.3 [facility] Comment on above: Performed By: #### T SH2 #### [address] [address] Chloride [Moles/Vol] 102 mmol/L Normal 98 - 107 [facility] Comment on above: Performed By: #### T SH2 #### [address] [address] Creatinine [Mass/Vol] 0.82 mg/dL Normal 0.50 - 1.05 [facility] Comment on above: Performed By: #### T SH2 #### [address] [address] GFR- AM. >60 Normal >60 [facility] Comment on above: Result Comment: CALC ULATIONS OF ESTIMATED GFR ARE PERFORMED USING THE MDRD STUDY EQUATION FOR THE IDMS-TRACEABLE CREATININE METHODS. CLIN CHEM 2007;53:766-72 Performed By: #### T SH2 #### [address] [address] GFR-NON AM. >60 Normal >60 [facility] Comment on above: Performed By: #### T SH2 #### [address] [address] Glucose [Mass/Vol] 97 mg/dL Normal 74 - 99 [facility] Comment on above: Performed By: #### T SH2 #### [address] [address] HCO3 (Bld) [Moles/Vol] 29 mmol/L Normal 21 - 32 [facility] Comment on above: Performed By: #### T SH2 #### [address] [address] Phosphate [Mass/Vol] 5.3 mg/dL High 2.5 - 4.9 [facility] Comment on above: Result Comment: The performance characteristics of phosphorus testing in heparinized plasma have been validated by the individual laboratory site where testing is performed. Testing on heparinized plasma is not approved by the FDA; however, such approval is not necessary. Performed By: #### T SH2 #### [address] [address] Potassium [Moles/Vol] 3.7 mmol/L Normal 3.5 - 5.3 [facility] Comment on above: Performed By: #### T SH2 #### [address] [address] Sodium [Moles/Vol] 143 mmol/L Normal 136 - 145 [facility] Comment on above: Performed By: #### T SH2 #### [address] [address] Urea nitrogen [Mass/Vol] 23 mg/dL Normal 6 - 23 [facility] Comment on above: Performed By: #### T SH2 #### [address] [address] UREA NITROGENon 03-12-2020 Urea nitrogen [Mass/Vol] 23 mg/dL Normal 6 - 23 [facility] Comment on above: Performed By: #### U TARAS #### [address] [address] VITAMIN D, 25-HYDROXYon 02-27 VITAMIN D, 25-HYDROXY 43 ng/mL Normal [facility] Comment on above: Result Comment: . DEFICIENCY: < 20 NG/ML INSUFFICIENCY: 20-29 NG/ML SUFFICIENCY: 30-100 NG/ML THIS ASSAY ACCURATELY QUANTIFIES THE SUM OF VITAMIN D3, 25-HYDROXY AND VIT D2,25-HYDROXY. Performed By: #### T SH2 #### [address] [address] THYROXINEon 09-17-2019 T4 [Mass/Vol] 8.0 ug/dL Normal 4.5 - 11.1 [facility] Comment on above: Performed By: #### T 4 #### [address] [address] THYROXINE,FREEon 09-17-2019 THYROXINE,FREE 0.70 ng/dL Normal 0.61 - 1.27 [facility] Comment on above: Result Comment: Thyr oxine Free testing is performed using different testing methodology at [facility] than at other [facility]. Direct result comparisons should only be made within the same method. Patients receiving more than 5 mg/day of biotin may have interference in test results. A sample should be taken no sooner than eight hours after previous dose. Performed By: #### T 4FRE #### [address] [address] TSHon 09-17-2019 TSH Qn 6.25 m[IU]/L High 0.44 - 3.98 [facility] Comment on above: Result Comment: TSH testing is performed using different testing methodology at [facility] than at other [facility]. Direct result comparisons should only be made within the same method. Performed By: #### T SH2 #### [address] [address] Vital Signs Date Time Vital Sign Value Performing Clinician Facility 03-07-2024 11:44-0400 Body height 147.32 cm [facility] 03-07-2024 11:44-0400 Body mass index (BMI) [Ratio] 22.8 kg/m2 [facility] 03-07-2024 11:44-0400 Body temperature 97.6 [degF] [facility] 03-07-2024 11:44-040 Body weight 49.44 kg [facility] 03-07-2024 11:44-0400 Diastolic blood pressure 60 mm[Hg] [facility] 03-07-2024 11:44-0400 Heart rate 96 /min [facility] 03-07-2024 11:44-0400 Respiratory rate 16 /min [facility] 03-07-2024 11:44-0400 SaO2% (BldA) [Mass fraction] 86 % [facility] 03-07-2024 11:44-0400 Systolic blood pressure 102 mm[Hg] [facility] 07-20-2023 10:40-0400 Body height 147.32 cm Pratik A Naderer Work Phone: [facility] 250 DO Work Phone: 07-20-2023 10:40-0400 Body mass index (BMI) [Ratio] 21.11 kg/m2 Pratik A Naderer Work Phone: [facility] 250 DO Work Phone: 07-20-2023 10:40-0400 Body surface area Derived from formula 1.36 m2 Pratik A Naderer Work Phone: [facility] 250 DO Work Phone: 07-20-2023 10:40-0400 Body weight 45.81 kg Pratik A Naderer Work Phone: [facility] 250 DO Work Phone: 07-20-2023 10:40-0400 Diastolic blood pressure 66 mm[Hg] Pratik A Naderer Work Phone: [facility] 250 DO Work Phone: 07-20-2023 10:40-0400 Heart rate 60 /min Pratik A Naderer Work Phone: [facility] 250 DO Work Phone: 07-20-2023 10:40-0400 Systolic blood pressure 100 mm[Hg] Pratik Bartonerer Work Phone: [facility] 250 DO Work Phone: 02-08-2023 14:00-0400 Body height 147.32 cm Madhav Valerietim Other [employer] Other 02-08-2023 14:00-0400 Body mass index (BMI) [Ratio] 22.57 kg/m2 Madhav Valerietim Other [facility] [employer] Other 02-08-2023 14:00-0400 Body weight 48.99 kg Madhav Conrad Other [facility] [employer] Other 02-08-2023 14:00-0400 Diastolic blood pressure 60 mm[Hg] Madhav Valerietim Other [facility] [employer] Other 02-08-2023 14:00-0400 Systolic blood pressure 105 mm[Hg] Madhav Anamaria Other [facility] [employer] Other 01-12-2023 11:13-0400 Body height 147.32 cm Pratik Meaz Naderer Work Phone: [facility] 250 DO Work Phone: 01-12-2023 11:13-0400 Body mass index (BMI) [Ratio] 21.95 kg/m2 Pratik Meza Naderer Work Phone: [facility] 250 DO Work Phone: 01-12-2023 11:13-0400 Body surface area Derived from formula 1.38 m2 Pratik Meza Naderer Work Phone: [facility] 250 DO Work Phone: 01-12-2023 11:13-0400 Body weight 47.63 kg Pratik A Naderer Work Phone: [facility] 250 DO Work Phone: 01-12-2023 11:13-0400 Diastolic blood pressure 60 mm[Hg] Pratik Meza Naderer Work Phone: [facility] 250 DO Work Phone: 01-12-2023 11:13-0400 Heart rate 88 /min Pratik Meza Naderer Work Phone: [facility] 250 DO Work Phone: 01-12-2023 11:13-0400 Systolic blood pressure 102 mm[Hg] Pratik Meza Naderer Work Phone: [facility] 250 DO Work Phone: 08-02-2022 13:32-0400 Diastolic blood pressure 62 mm[Hg] Seema Aichholz Work Phone: [facility] 08-02-2022 13:32-0400 Heart rate 63 /min Seema Aichholz Work Phone: [facility] 08-02-2022 13:32-0400 Respiratory rate 18 /min Seema Aichholz Work Phone: [facility] 08-02-2022 13:32-0400 SaO2% (BldA) [Mass fraction] 100 % Seema Aichholz Work Phone: [facility] 08-02-2022 13:32-0400 Systolic blood pressure 122 mm[Hg] Seema Aichholz Work Phone: [facility] 08-02-2022 12:26-0400 Body height 147.32 cm Seema Aichholz Work Phone: [facility] 08-02-2022 12:26-0400 Body temperature 98.3 [degF] Seema Aichholz Work Phone: [facility] 08-02-2022 12:26-0400 Body weight 48.53 kg Seema Sutherland Work Phone: [facility] 06-23-2022 15:29-0400 Body height 147.32 cm Pratik A Naderer Work Phone: [facility] 250 DO Work Phone: 06-23-2022 15:29-0400 Body mass index (BMI) [Ratio] 22.62 kg/m2 Pratik A Naderer Work Phone: [facility] 250 DO Work Phone: 06-23-2022 15:29-0400 Body surface area Derived from formula 1.4 m2 Pratik A Naderer Work Phone: [facility] 250 DO Work Phone: 06-23-2022 15:29-0400 Body weight 49.1 kg Pratik A Naderer Work Phone: [facility] 250 DO Work Phone: 06-23-2022 15:29-0400 Diastolic blood pressure 60 mm[Hg] Pratik A Naderer Work Phone: [facility] 250 DO Work Phone: 06-23-2022 15:29-0400 Heart rate 62 /min Pratik A Naderer Work Phone: [facility] 250 DO Work Phone: 06-23-2022 15:29-0400 Systolic blood pressure 110 mm[Hg] Pratik A Naderer Work Phone: [facility] 250 DO Work Phone: 05-11-2022 11:17-0400 Blood Pressure Location Med JENKINS [facility] 05-11-2022 11:17-0400 Diastolic blood pressure 63 mm[Hg] Med JENKINS [facility] 05-11-2022 11:17-0400 Heart rate 81 /min Med JENKINS [facility] 05-11-2022 11:17-0400 Respiratory rate 16 /min Med JENKINS [facility] 05-11-2022 11:17-0400 Systolic blood pressure 125 mm[Hg] Med JENKINS [facility] 03-24-2022 13:00-0400 Body height 147.32 cm Aba Giovanny Other [employer] Other 03-24-2022 13:00-0400 Body mass index (BMI) [Ratio] 22.28 kg/m2 Aba Giovanny Other [employer] Other 03-24-2022 13:00-0400 Body temperature 97.7 [degF] Aba Giovanny Other [employer] Other 03-24-2022 13:00-0400 Body weight 48.35 kg Aba Giovanny Other [employer] Other 03-24-2022 13:00-0400 Diastolic blood pressure 70 mm[Hg] Aba Giovanny Other [employer] Other 03-24-2022 13:00-0400 Respiratory rate 18 /min Aba Giovanny Other [employer] Other 03-24-2022 13:00-0400 SaO2% (BldA) [Mass fraction] 97 % Aba Giovanny Other [employer] Other 03-24-2022 13:00-0400 Systolic blood pressure 110 mm[Hg] Aba Giovanny Other [employer] Other 12-29-2021 11:00-0500 Body height 147.32 cm Pratik Meza Naderer Work Phone: [employer] [facility] [employer] 250 DO Work Phone: 12-29-2021 11:00-0500 Body mass index (BMI) [Ratio] 22.99 kg/m2 Pratik A Naderer Work Phone: [employer] [facility] 250 DO Work Phone: 12-29-2021 11:00-0500 Body surface area Derived from formula 1.41 m2 Pratik A Naderer Work Phone: [employer] [facility] [employer] 250 DO Work Phone: 12-29-2021 11:00-0500 Body weight 49.9 kg Pratik A Naderer Work Phone: [employer] [facility] 250 DO Work Phone: 12-29-2021 11:00-0500 Diastolic blood pressure 60 mm[Hg] Pratik A Naderer Work Phone: [employer] [facility] [employer] 250 DO Work Phone: 12-29-2021 11:00-0500 Heart rate 68 /min Pratik A Naderer Work Phone: [employer] 250 DO Work Phone: 12-29-2021 11:00-0500 Systolic blood pressure 110 mm[Hg] Pratik Tadeo Work Phone: [employer] [facility] 250 DO Work Phone: 10-18-2021 14:30-0500 Body height 147.32 cm Alyssa Ginty Other [employer] Other 10-18-2021 14:30-0500 Body mass index (BMI) [Ratio] 22.99 kg/m2 Alyssa Ginty Other [employer] Other 10-18-2021 14:30-0500 Body temperature 97.9 [degF] Alsysa Ginty Other [employer] Other 10-18-2021 14:30-0500 Body weight 49.9 kg Alyssa Ginty Other [employer] Other 10-18-2021 14:30-0500 Diastolic blood pressure 49 mm[Hg] Alyssa Ginty Other [employer] Other 10-18-2021 14:30-0500 Respiratory rate 18 /min Alyssa Ginty Other [employer] Other 10-18-2021 14:30-0500 SaO2% (BldA) [Mass fraction] 98 % Alyssa Ginty Other [employer] Other 10-18-2021 14:30-0500 Systolic blood pressure 136 mm[Hg] Alyssa Ginty Other [employer] Other 09-07-2021 12:15-0500 Body height 147.32 cm Carie Keith Other [employer] Other 09-07-2021 12:15-0500 Body mass index (BMI) [Ratio] 22.49 kg/m2 Carie Keith Other [employer] Other 09-07-2021 12:15-0500 Body weight 48.81 kg Carie Keith Other [employer] Other 09-02-2021 13:40-0400 Body height 147.32 cm Aba Giovanny Other [employer] Other 09-02-2021 13:40-0400 Body mass index (BMI) [Ratio] 22.53 kg/m2 Aba Giovanny Other [employer] Other 09-02-2021 13:40-0400 Body temperature 96.9 [degF] Aba Giovanny Other [employer] Other 09-02-2021 13:40-0400 Body weight 48.9 kg Aba Giovanny Other [employer] Other 09-02-2021 13:40-0400 Diastolic blood pressure 72 mm[Hg] Aba Giovanny Other [employer] Other 09-02-2021 13:40-0400 Respiratory rate 18 /min Aba Giovanny Other [employer] Other 09-02-2021 13:40-0400 SaO2% (BldA) [Mass fraction] 98 % Aba Giovanny Other [employer] Other 09-02-2021 13:40-0400 Systolic blood pressure 110 mm[Hg] Aba Hidalgor Other [facility] [employer] Other Encounters Encounter Date Encounter Type Care Provider Facility Start: 10-16-2024 ambulatory Med JENKINS Facility :[facility] Start: 07-18-2024 End: 07-19-2024 Emergency department patient visit JACK VIVEROS [facility] Start: 07-18-2024 End: 07-18-2024 ambulatory [facility] Start: 06-13-2024 End: 06-13-2024 ambulatory SERGIO VENTURA Not Available Start: 04-10-2024 End: 04-10-2024 ambulatory Med JENKINS Facility:[facility] Start: 04-10-2024 End: 04-10-2024 Patient encounter procedure Med JENKINS [facility] Start: 03-20-2024 End: 03-20-2024 ambulatory BERNARD JAMESR Not Available Start: 03-11-2024 End: 03-11-2024 ambulatory SEEMA AICChrisHOLZ Not Available Start: 03-07-2024 End: 03-07-2024 ambulatory [facility] Work Phone: Start: 03-07-2024 End: 03-07-2024 Patient encounter procedure [facility] Neph[facility] Steve Work Phone: Start: 02-27-2024 Non-patient / Non-visit [facility] Work Phone: Start: 02-26-2024 End: 02-26-2024 ambulatory Med JENKINS Facility:[facility] Start: 02-26-2024 End: 02-26-2024 Patient encounter procedure Med JENKINS [facility] Start: 11-13-2023 End: 12-19-2023 Pre-admission assessment Med JENKINS [facility] Start: 11-13-2023 End: 11-13-2023 ambulatory Med JENKINS Facility:[facility] Start: 11-13-2023 End: 11-13-2023 Patient encounter procedure Med JENKINS [facility] Start: 10-03-2023 ambulatory Med JENKINS Facility:[facility] Start: 09-27-2023 End: 09-27-2023 ambulatory Med JENKINS Facility:[facility] Start: 09-27-2023 End: 09-27-2023 Patient encounter procedure Med JENKINS [facility] Start: 08-16-2023 End: 08-16-2023 ambulatory Med JENKINS Facility:[facility] Start: 08-16-2023 End: 08-16-2023 Lab Drop off Med JENKINS [facility] Start: 08-16-2023 End: 08-16-2023 ambulatory Med JENKINS Facility:[facility] Start: 08-16-2023 End: 08-16-2023 Patient encounter procedure Med JENKINS [facility] Start: 07-20-2023 Office outpatient visit 25 minutes Pratik Derrick Tadeo Work Phone: [facility] 250 DO Work Phone: Start: 07-20-2023 ambulatory Donna Turcios Facility : Start: 07-05-2023 End: 07-05-2023 ambulatory Seema Sutherland Facility:[facility] Start: 07-05-2023 End: 07-05-2023 ambulatory Seema Sutherland Work Phone: [facility] Work Phone: Start: 07-05-2023 End: 07-05-2023 Patient encounter procedure Seema Sutherland Work Phone: [facility] [address] Work Phone: Start: 05-25-2023 End: 05-25-2023 ambulatory Aba Giovnany Other [employer] Other Start: 05-25-2023 Telephone encounter Aba Giovanny [facility] Start: 05-11-2023 End: 05-11-2023 ambulatory Med JENKINS Facility:[facility] Start: 05-11-2023 End: 05-11-2023 Patient encounter procedure Med JENKINS [facility] Start: 05-08-2023 End: 05-08-2023 ambulatory Aba Giovanny Other [employer] Other Start: 05-08-2023 Telephone encounter Aba Giovanny [facility] Start: 02-08-2023 End: 02-08-2023 ambulatory Madhav Conrad Other [employer] Other Start: 02-08-2023 Patient encounter procedure Madhav Conrad [facility] Start: 01-12-2023 ambulatory Donna Turcios Facility : Start: 01-12-2023 Office outpatient visit 25 minutes Pratik Derrick Cárdenasr Work Phone: [facility] 250 DO Work Phone: Start: 11-30-2022 End: 11-30-2022 ambulatory Aba Giovanny Other [employer] Other Start: 11-30-2022 Telephone encounter Aba Giovanny [facility] Start: 11-29-2022 End: 11-30-2022 ambulatory MANAGER ESTATE SEEMA SUTHERLAND Facility:[facility] Start: 08-03-2022 End: 08-03-2022 ambulatory Madhav Conrad Other [facility] [employer] Other Start: 08-03-2022 Telephone encounter Madhav CAMERON [facility] Start: 08-02-2022 End: 08-02-2022 ambulatory Seema Musa Lancechrisabbeyumer Facility:[facility] Start: 08-02-2022 End: 08-02-2022 Admission to same day surgery center Seema Lancechrisabbeyumer Work Phone: [facility] Start: 08-02-2022 End: 08-02-2022 ambulatory Seema Musa Lancechrisabbeyumer Work Phone: [facility] Work Phone: Start: 07-29-2022 End: 07-29-2022 ambulatory Madhav Padillatim Facility:[facility] Start: 07-29-2022 End: 07-29-2022 Patient encounter procedure Seema Sutherland Work Phone: [facility] Start: 07-13-2022 Rx Renewal Pratik Cárdenasr Work Phone: [facility] 250 DO Work Phone: Start: 07-11-2022 End: 07-12-2022 ambulatory MANAGER ESTATE SEEMA SUTHERLAND Facility:[facility] Start: 06-23-2022 Office outpatient visit 25 minutes Pratik A Naderer Work Phone: [facility] 250 DO Work Phone: Start: 06-22-2022 End: 06-22-2022 Patient encounter procedure Med JENKINS [facility] Start: 06-15-2022 End: 06-16-[address] DONNA TURCIOS Facility:[facility] Start: 05-23-2022 End: 05-23-2022 Patient encounter procedure Med JENKINS [facility] Start: 05-17-2022 End: 05-17-2022 Lab Drop off Med Yanelis JENKINS [facility] Start: 05-17-2022 End: 05-17-2022 Patient encounter procedure Med JENKINS [facility] [employer] Start: 05-11-2022 End: 05-11-2022 Patient encounter procedure Med JENKINS [facility] [employer] Start: 04-20-2022 End: 04-21-2022 ambulatory MANAGER ESTATE SEEMA LANCEChrisPONCHO Facility:[facility] Start: 03-24-2022 End: 03-24-2022 ambulatory Aba Giovanny Other [facility] [employer] Other Start: 03-24-2022 Office outpatient visit 25 minutes Aba Giovanny [facility] Start: 03-23-2022 End: 03-23-2022 ambulatory RODERICK KONG Facility:[facility] Start: 03-23-2022 End: 03-24-2022 ambulatory ABA GIOVANNY Facility:[facility] Start: 03-22-2022 End: 03-23-2022 ambulatory ABA GIOVANNY [facility] [employer] Other Start: 03-22-2022 Telephone encounter Aba Giovanny [facility] Start: 12-29-2021 Office outpatient visit 25 minutes Pratik Tadeo Work Phone: [place] [address] DO Work Phone: Start: 10-18-2021 End: 10-18-2021 ambulatory Alyssa Janee Other [employer] Other Start: 10-18-2021 Office outpatient visit 15 minutes Alyssa Janee [facility] Start: 09-07-2021 End: 09-07-2021 ambulatory Carie Inna Other [employer] Other Start: 09-07-2021 Office outpatient visit 15 minutes Carie Ketih [facility] Start: 09-02-2021 End: 09-02-2021 ambulatory Aba Giovanny Other [employer] Other Start: 09-02-2021 Office outpatient visit 25 [...] encounter procedure Bean Cantu Work Phone: [facility] [place] [facility] Start: 01-29-2018 Ambulatory [facility] Facility :[id number] Procedures Date Procedure Procedure [...] Donna Turcios, Status: Pen, Time: 10:20 AM [facility] [employer] 250 DO Work Phone: Start: 01-12-2023 FUV, Provider: Donna Turcios, Status: Pen, Time: 10:50 AM [facility], Provider: Donna Turcios, Status: Pen, [facility]: 10:50 AM [facility] Work Phone: Start: 08-02-2022 [facility] Start: 07-12-2022 FUV, Provider: Donna Turcios, Status: Pen, Time: 10:50 AM [facility], Provider: Donna Turcios, Status: Pen, Time: 10:50 AM [employer] [facility] 250 DO Work Phone: Start: 02-17-2021 Bacteria identified in Urine by Culture Urine Culture [facility] Patient Education Gastritis (DC) Omeprazole [facility] Work Phone: Renal function 2000 panel - Serum or Plasma [facility] Immunizations Immunization Date Immunization Notes Care Provider Zain khan 06-30-2023 influenza virus vacc ine, unspecified formulation Med JENKINS [facility] 09-17-2021 Pfizer-BioNTech COVI D-19 Vacc 30 MCG/0.3ML Intramuscular Suspension Pratik Meza Mickjobyr Work Phone: [facility] 09-08-2021 influenza virus vacc ine, unspecified formulation Med JENKINS [facility] 09-08-2021 Influenza, injectabl e, Madin Mei Canine Kidney, preservative free, quadrivalent Pratik A Naderer Work Phone: [place] [address] DO Work Phone: 01-05-2021 Moderna COVID-19 Vac cine 100 MCG/0.5ML Intramuscular Suspension Pratik A Naderer Work Phone: [facility] 12-07-2020 Moderna COVID-19 Vac cine 100 MCG/0.5ML Intramuscular Suspension Pratik A Naderer Work Phone: [facility] 08-11-2020 influenza virus vacc ine, unspecified formulation Med [employer] [facility] 08-11-2020 influenza, injectabl e, quadrivalent, preservative free Pratik A Naderer Work Phone: [place] [address] DO Work Phone: 08-11-2020 pneumococcal polysaccharide vaccine, 23 valent Pratik A Naderer Work Phone: [facility] 06-30-2020 influenza virus vacc ine, unspecified formulation Pratik A Naderer Work Phone: [facility] 07-30-2019 influenza virus vacc ine, unspecified formulation Pratik A Naderer Work Phone: [place] [address] DO Work Phone: 07-16-2019 influenza virus vacc ine, unspecified formulation [employer] [facility] 07-16-2019 influenza, injectabl e, quadrivalent, preservative free Pratik A Naderer Work Phone: [place] [address] DO Work Phone: 08-09-2018 influenza virus vacc ine, unspecified formulation Med JENKINS [facility] 08-09-2018 influenza, high dose seasonal, preservative-free Pratik A Naderer Work Phone: [facility] 250 DO Work Phone: 07-30-2018 influenza virus vacc ine, unspecified formulation Pratik A Naderer Work Phone: [facility] 250 DO Work Phone: 08-11-2017 influenza virus vacc ine, unspecified formulation Med JENKINS [facility] 08-11-2017 influenza, high dose seasonal, preservative-free Pratik A Naderer Work Phone: [place] [address] DO Work Phone: 07-30-2017 influenza virus vacc ine, unspecified formulation Pratik A Naderer Work Phone: [place] [address] DO Work Phone: 08-02-2016 influenza virus vacc ine, unspecified formulation Med JENKINS [facility] 08-02-2016 influenza, high dose seasonal, preservative-free Pratik A Naderer Work Phone: [facility] 250 DO Work Phone: 06-30-2016 influenza virus vacc ine, unspecified formulation Pratik A Naderer Work Phone: [facility] 250 DO Work Phone: 01-08-2016 pneumococcal conjuga te vaccine, 13 valent Pratik A Naderer Work Phone: [facility] 07-21-2015 influenza virus vacc ine, unspecified formulation Pratik A Naderer Work Phone: [place] [address] DO Work Phone: 07-21-2015 pneumococcal polysaccharide vaccine, 23 valent Pratik A Naderer Work Phone: [facility] 250 DO Work Phone: 07-17-2015 influenza virus vacc ine, unspecified formulation Med JENKINS [facility] 07-17-2014 influenza virus vacc ine, unspecified formulation Med JENKINS [facility] 07-17-2014 influenza, high dose seasonal, preservative-free Pratik A Naderer Work Phone: [place] [address] DO Work Phone: 08-07-2012 influenza virus vacc ine, unspecified formulation Med JENKINS [facility] 08-07-2012 influenza, seasonal, injectable, preservative free Pratik A Naderer Work Phone: [place] [address] DO Work Phone: 06-04-2012 tetanus toxoid, redu ruby diphtheria toxoid, and acellular pertussis vaccine, adsorbed Pratik A Naderer Work Phone: [facility] 09-16-2010 influenza virus vacc ine, unspecified formulation Med JENKINS [facility] 09-16-2010 influenza, seasonal, injectable Pratik A Naderer Work Phone: [place] [address] DO Work Phone: Payers Date Payer Category Payer Private Health Insurance [id number] 2022 Self-pay [id number] 1959 Medicare [id number] 1959 Unknown [id number] 1940 Unknown [id number] 2.16.84 0.1.051428.3.579.2.593 1940 Unknown [id number] 2.16.84 0.1.022461.3.579.2.593 1940 Unknown [id number] 2.16.84 0.1.767639.3.579.2.593 1940 Unknown [id number] 2.16.84 0.1.702575.3.579.2.593 1940 Unknown [id number] 2.16.84 0.1.114967.3.579.2.593 1940 Unknown [id number] 2.16.84 0.1.435595.3.579.2.593 1940 Unknown [id number] 2.16.84 0.1.537830.3.579.2.593 1940 Unknown [id number] 2.16. 840.1.865784.3.579.2.356 1940 Unknown [id number] 2.16. 840.1.474029.3.579.2.356 1940 Unknown [id number] 2.16.8 40.1.002787.3.579.2.727 1940 Unknown [id number] 2.16.8 40.1.594890.3.579.2.727 1940 Unknown [id number] 2.16.8 40.1.362162.3.579.2.727 1940 Unknown [id number] 2.16.8 40.1.230660.3.579.2.727 1941 Unknown [id number] 2.16.8 40.1.045506.3.579.2.727 194 Unknown [id number] 2.16.8 40.1.845008.3.579.2.727 1940 Unknown [id number] 2.16.8 40.1.489101.3.579.2.727 194 Unknown [id number] 2.16.8 40.1.261049.3.579.2.727 1940 Unknown [id number] 2.16.84 0.1.002384.3.579.2.1259 1940 Unknown [id number] 2.16.84 0.1.514523.3.579.2.1259 1940 Unknown [id number] 2.16.84 0.1.499052.3.579.2.1259 1940 Unknown [id number] 2.16.8 40.1.662773.3.579.2.1244 1940 Unknown [id number] 2.16.8 40.1.492540.3.579.2.1286 1940 Unknown [id number] 2.16.8 40.1.116271.3.579.2.1286 1940 Unknown [id number] 2.16.8 40.1.404817.3.579.2.1286 194 Unknown [id number] 2.16.8 40.1.990888.3.579.2.1286 194 Unknown [id number] 2.16.8 40.1.696405.3.579.2.1286 Medicare [id number] Unknown [id number] Unknown Unknown [id number] 2.16.8 40.1.098810.3.579.2.531 Unknown [id number] 2.16.8 40.1.607090.3.579.2.531 Unknown [id number] 2.16.8 40.1.607073.3.579.2.531 Social History Date Type Detail Facility Start: 02-17-2021 End: 04-10-2024 Tobacco smoking status NHIS Never smoked tobacco (finding) [facility] Start: 1940 Sex Assigned At Female F [facility] No alcohol use No alcohol use -[facility] 250 DO Work Phone: Sex Assigned At [facility] [employer] Other Tobacco smoking status Never [facility] Procedure Code Equipment Code Equipment [...] knee, total, minimally invasive Orthopaedic cement, non-medicated ()[id number] FDA Start: 03-09-2021 Arthroplasty, knee, total, minimally invasive Uncoated knee femur prosthesis, metallic ()[id number] FDA Start: 03-09-2021 Arthroplasty, knee, total, minimally invasive Polyethylene patella prosthesis ()[id number] FDA Start: 03-09-2021 Arthroplasty, knee, total, minimally invasive Tibial insert ()[id number] FDA Start: 03-09-2021 Arthroplasty, knee, total, minimally invasive Uncoated knee tibia prosthesis, metallic ()[id number] FDA Start: 03-09-2021 Arthroplasty, knee, total, minimally [...] Facility 04-10-2024 Functional Status N/A [facility] 02-26-2024 Functional Status N/A [facility] 09-27-2023 Functional Status N/A [facility] 08-16-2023 Functional Status N/A [facility] 05-11-2023 Functional Status N/A [facility] 06-22-2022 Functional Status N/A [facility] 05-19-2022 Functional Status N/A [facility] 05-11-2022 Functional Status N/A [facility] Clinical Notes 09-02-2021 to 04-10-2024 Note Date [...] (electrical nerve stimulation). ?For women, using a medical doctor md/medical director to prevent urine leaks. This is a [...] right after experiencing incontinence. General instructions Take rneq-hgb-vhbboga and prescription medicines only as told by [...] important. Where to find more information National [place] of Diabetes and Digestive and Kidney Diseases: www.niddk.nih.gov [employer] [employer]: www.urologyhealth.org Contact a health care [...] provider. Document Revised: 05/21/2021 Document Reviewed: 05/21/2021 Weight Wins Patient Education 2022 [employer]. Follow Up Care 02/26/2024 13:52:27 With:TRINA WATSON, Med Hilario, URL Address: [address] [place] [address]- When: Unknown [facility] 02-26-2024 Hospital Discharg e instructions Patient Education [...] Care 11/13/2023 15:16:14 With:Med JENKINS Address: [address] [place], [place] [id number] Business (1) When:6 weeks Comments:Call for followup appointment, with a bladder scan at that visit to check for bladder emptying. [facility] 02-26-2024 Note [id number] [facility] 02-26-2024 Note Cystoscopy with Boto x injection [...] you have a fever over 100 degrees. [facility] 11-13-2023 Evaluation + Plan note Extrac db from: Title:HOPD visit Author:Med JENKINS MD Date: 11/13/23 Impression and Plan Assessment and Plan: Diagnosis: Acute UTI (BMR36-DS N39.0, Working, Medical), Mixed incontinence urge and stress (ROT76-HX N39.46, Working, Medical), Overactive bladder (GIC17-DP N32.81, Working, Medical). Additional Plan of Care [...] is also instructed to follow-up with her welt butter hand regarding some heart rate issues. 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 [facility]11-29-2023 Hospital Discharge instructions Patient Education 09/27/2023 [...] (electrical nerve stimulation). ?For women, using a medical doctor md/medical director to prevent urine leaks. This is a [...] right after experiencing incontinence. General instructions Take uxca-yyf-ijhlwox and prescription medicines only as told by [...] important. Where to find more information National [place] of Diabetes and Digestive and Kidney Diseases: www.niddk.nih.gov [employer]: www.urologyhealth.org Contact a health care [...] provider. Document Revised: 05/21/2021 Document Reviewed: 05/21/2021 [employer] Patient Education 2022 [employer]. Follow Up Care 08/16/2023 10:31:24 With:TRINA WATSON, Med Hilario, URL Address: [address] [place], [place] [id number]- When: Unknown [facility] 10-18-2023 Hospital Discharge instructions Patient Education 08/16/2023 [...] Treatment for this condition includes: Antibiotic medicine. Dqxf-rat-mhztbbg medicines to treat discomfort. Drinking enough water [...] Follow these instructions at home: Medicines Take lsuv-gwj-pnidxlr and prescription medicines only as told by [...] Document Reviewed: 05/28/2021 Elsevier Patient Education 2022 [employer]. Follow Up Care 05/11/2023 08:07:36 With:Med JENKINS MD, URL Address: [address] [place] [address] [address]- When: Unknown [facility] 07-27-2023 Evaluation note* Encounter Date Diagnosis Assessment Notes Treatment Notes Treatment Clinical Notes Apr, Hypomagnesemia (ICD-10 - E83.42) [employer] Other 07-13-2023 Hospital Discharge instructions Patient Education [...] Up Care 04/12/2023 15:40:50 With:Med JENKINS Address: [address] [place] [address] [address]- Business (1) When:3 months Comments:Call for followup appointment, with bladder scan checking for residual urine at that visit. [facility]07-13-2023 Note [id number] 05-11-2023 NoteCystoscopy with Botox injection ? [...] you have a fever over 100 degrees.[facility] 05-08-2023 Evaluation note* Encounter Date Diagnosis Assessment Notes Treatment Notes Treatment Clinical Notes Apr, Hypomagnesemia (ICD-10 - E83.42) [employer] Other 04-12-2023 Evaluation note* Encounter Date Diagnosis Assessment Notes Treatment Notes Treatment Clinical Notes Jan, Early satiety (ICD-10 - R68.81) Jan, Gastritis (ICD-10 - K29.70) Continue Omeprazole as directed Rto 1 yr Jan, Borborygmi (ICD-10 - R19.8) [employer] [facility] Patient Education 06/22/2022 13:02:36 [...] (electrical nerve stimulation). For women, using a medical doctor md/medical director to prevent urine leaks. This is a [...] right after experiencing incontinence. General instructions Take ssqu-lfp-illjrwn and prescription medicines only as told by [...] 11/23/2005 Document Revised: 10/26/2018 Document Reviewed: 01/25/2018 [employer] Patient Education 2020 [employer]. 06/22/2022 13:02:35 Kegel Exercises Kegel Exercises Kegel [...] 10/02/2013 Document Revised: 06/05/2019 Document Reviewed: 06/05/2019 [employer] Patient Education 2020 [employer]. Follow Up Care 05/23/2022 15:12:51 With:TRINA WATSON, Med Hilario, URL Address: When:Within 6 Month(s) Comments:w/PVR [facility] 07-25-2022 Hospital Discharge instructions Patient Education 05/23/2022 [...] Up Care 05/11/2022 11:39:36 With:Med JENKINS Address: [address] [place] [address] [facility] (1) When:2 to 4 weeks Comments:Call for followup appointment, and a bladder scan to check bladder emptying will be performed at that visit. [facility]07-13-2022 Hospital Discharge instructions Patient Education 05/11/2022 [...] fried and sweet foods. General instructions Take wcmo-btn-kjmvqwz and prescription medicines only as told by [...] 08/12/2010 Document Revised: 02/06/2020 Document Reviewed: 11/01/2018 Else[employer] Patient Education 2020 [employer] Follow Up Care 12/27/2021 11:50:32 With:TRINA WATSON, Med Hilario, URL Address: [address] [place], [place] [id number]- When: Unknown [facility] 05-26-2022 Evaluation note* Encounter Date Diagnosis Assessment [...] of cardiac arrest due to the hypokalemia [employer] Other 12-20-2021 Evaluation note* Encounter Date Diagnosis Assessment Notes Treatment Notes Treatment Clinical Notes Sep, Abnormal skin growth (ICD-10 - D49.2) Will send to derm for further evaluation and treatment. Advised patient that area will likely need to be removed. Message sent to certified wellness program coordinator to schedule and make appointment for patient. Area covered with silvadine cream in office with non adherent telfa and coban. Advised patient not to pick at area. Immediate evaluation in ER for signs of infection, including, fever, red streaking, foul odor, any new or worsening symptoms. Patient verbalizes understanding and is agreeable with treatment plan [employer] Other 11-09-2021 Evaluation note* Encounter Date Diagnosis Assessment Notes Treatment Notes Treatment Clinical Notes Aug, Arthritis of left knee (ICD-10 - M17.12) Patient is progressing well. Continue physical therapy exercises and TKA precautions. Instructed patient to call with any questions or concerns. 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 [employer] Other Evaluation + Plan note Future Appointments Appointment Date:05/16/2022 10:00:00 AM Scheduled Provider: Location:[facility] Appointment Type:Urology CALL PAT FT Appointment Date:05/23/2022 02:30:00 PM Scheduled Provider: Location:[facility] Appointment Type:Urology FT [facility] Evaluation + Plan note Future Appointments Appointment Date:05/23/2022 02:30:00 PM Scheduled Provider: Location:[facility] Appointment Type:Urology FT [facility] Evaluation + Plan note Future Appointments Appointment Date:05/23/2022 02:30:00 PM Scheduled Provider: Location:[facility] Appointment Type:Urology FT Diagnostic Tests Pending * Urine [facility]22 [facility] Future Appointments Appointment Date:06/22/2022 11:45:00 AM Scheduled Provider:Med JENKINS MD Location:[facility] Appointment Type:URO [facility] Future Appointments Appointment Date:12/14/2022 11:15:00 AM Scheduled Provider:Med JENKINS MD Location:[facility] Appointment Type:URO Office Visit [facility] Evaluation + Plan note Future Appointments Appointment Date:08/16/2023 09:30:00 AM Scheduled Provider:Med JENKINS MD Location:[facility] Appointment Type:[facility]O [facility] Future Appointments Appointment Date:09/27/2023 01:00:00 PM Scheduled Provider:Med JENKINS MD Location:[facility] Appointment Type:URO Office Visit Diagnostic Tests Pending * Urine Culture 08[facility]16/23 [facility] Future Appointments Appointment Date:09/27/2023 01:00:00 PM Scheduled Provider:Med JENKINS MD Location:[facility] Appointment Type:URO Office Visit [facility] Evaluation + Plan note Future Appointments Appointment Date:10/31/2023 09:45:00 AM Scheduled Provider: Location:[facility] Appointment Type:Urology CALL PAT FT Appointment Date:11/13/2023 02:45:00 PM Scheduled Provider: Location:[facility] Appointment Type:Urology FT [facility] Evaluation + Plan note Future Appointments Appointment Date:04/10/2024 10:00:00 AM Scheduled Provider: Location:[facility] Appointment Type:URO [facility] Future Appointments Appointment Date:10/16/2024 01:00:00 PM Scheduled Provider:Med JENKINS MD Location:[facility] Appointment Type:URO Office Visit [facility] Evaluation noteNo Assessments Information Available [facility] [employer] Other Evaluation noteNo assessment information available [facility] Work Phone: Evaluation note* Diagnosis Onset Date Resolution Status Hypomagnesemia acute CAD (coronary artery disease) chronic Hyperlipidemia chronic Hypokalemia resolved [place] [facility] Work Phone: History and physical note Author Madhav Conrad [facility] August 02, 2022 12:52pm Note Date/Time August 02, 2022 12 :52pm [facility] [address] [place] [address] Gastroenterology H&P Signed Patient: Narciso Velasquez MR#: [id number] : 1940 Acct:[id number] Age/Sex: 81 / F Adm Date: 2 Loc: Room: Type: [facility] Attending Dr: Madhav Conrad MD Copies to: MD Seema Ribera, CERTIFIED TEACHER ASSISTANT-C~ Date of Service: 08/02/2022 HISTORY & PHYSICAL: [...] signed by Madhav Conrad MD> 08/02/22 [facility] [facility] Work Phone: History general Narrative - Reported* [...] heart attack 11/2016 Hospitalization History SEE ABOVE [employer] Other Hospital course Narrative No data available for this section [facility] Hospital Discharge instructions No data available for this section [facility] Hospital Discharge instructions Additional Instructions DISCHARGE INSTRUCTIONS [...] NOT operate machinery such as power tools, [employer] mowers, [employer], [employer]ing machines, etc. for 24 hours. - Avoid [...] Follow up with PCP. - Office number [phone].[facility] Work Phone: Progress note No data available for this section [facility] Summary Purpose Family History No Family History [...] (D49.2) Referral Organization [facility] [address] Referring Provider First Name Alyssa Referring Provider Last Name Janee Referring Provider Specialty Nurse Pract itioner Referred Organization [facility] Referred Provider Castillo Mcgowan Thomas Referred Address ,[place], [place],[address] Referred Provider Specialty Dermatology Referral Priority Routine General Notes Xochitl Craig 021 02:26:04 PM >Received today and sent P2P even though the notes are not locked Additional Source Comments INFORMATION SOURCE (unrecogn ized section and content) DATE CREATED AUTHOR 04/19/2018 [facility] Healthcare DATE CREATED AUTHOR AUTHOR'S ORGANIZ ATION 03/15/2020 [facility] DATE CREATED AUTHOR AUTHOR'S ORGANIZ ATION 12/01/2022 [facility] DATE CREATED AUTHOR AUTHOR'S ORGANIZ ATION 07/15/2023 [facility] DATE CREATED AUTHOR AUTHOR'S ORGANIZ ATION 07/22/2023 [facility] DATE CREATED AUTHOR AUTHOR'S ORGANIZ ATION 07/22/2023 [employer] DATE CREATED AUTHOR AUTHOR'S ORGANIZ ATION 04/13/2024 [facility] DATE CREATED AUTHOR AUTHOR'S ORGANIZ ATION 06/15/2024 [facility] EPIC DATE CREATED AUTHOR AUTHOR'S ORGANIZ ATION 07/20/2024 [facility] DATE CREATED AUTHOR AUTHOR'S ORGANIZ ATION 07/21/2024 [facility] REASON FOR VISIT (unrecogniz ed section and [...] BE BASED ON THE PRIMARY CLINICAL RECORDS. [facility], [facility]. provides no warranty or guarantee of the accuracy or completeness of information in this document.
[2024-08-07] MEDS: LACTATED RINGER'S SOLUTION 1,000 ML 125 ML IV (16:55)
[2024-08-07] MEDS: OXYCODONE HCL 5 MG TABLET PO ×2 (16:55→23:00)
[2024-08-07] MEDS: POTASSIUM CHLORIDE 10 MEQ ER TABLET 40 MEQ PO (16:55)
--- NOTE | 2024-08-07 17:10 | PHOTOS ---
sacrum and left buttock
[2024-08-07] MEDS: ASPIRIN 81 MG TAB.CHEW PO (17:43)
[2024-08-07 18:39] LABS: C. Difficile PCR NEGATIVE (NEGATIVE)
[2024-08-07] MEDS: GABAPENTIN 300 MG CAPSULE 600 MG PO (20:14)
[2024-08-07] MEDS: ENOXAPARIN SODIUM 40 MG/0.4 ML SYRINGE SUBQ (20:14)
[2024-08-07] MEDS: PRAMIPEXOLE 0.125 MG TABLET 0.25 MG PO (21:32)
[2024-08-07 22:51] LABS: Bilirubin Urine NEGATIVE (NEGATIVE); Blood Urine SMALL (NEGATIVE); Clarity Urine CLEAR (CLEAR); Color Urine YELLOW (YELLOW); Glucose Urine UA NEGATIVE (NEGATIVE); Ketones Urine TRACE mg/dL (NEGATIVE); Leukocyte Esterase Urine SMALL (NEGATIVE); Nitrite Urine POSITIVE (NEGATIVE); Protein Urine NEGATIVE (NEG/TRACE); Specific Gravity Urine 1.025 (1.005-1.025); Urobilinogen Urine 0.2 EU/dL (0.2-1.0)
[2024-08-07 22:52] LABS: Urine Microscopic Indicated YES
[2024-08-07 23:04] LABS: Bacteria Urine LARGE #/HPF (NONE SEEN)
[2024-08-07 23:05] LABS: Cast Seen? NONE SEEN #/LPF (NONE SEEN); Crystals Seen? None Seen #/HPF (None Seen); Mucus Urine NONE SEEN (NONE SEEN); Squamous Epithelial Cell Urine FEW #/LPF (NONE/RARE); Urine Culture Indicated YES
[2024-08-08] MEDS: LACTATED RINGER'S SOLUTION 1,000 ML 125 ML IV (00:45)
[2024-08-08] MEDS: ACETAMINOPHEN 325 MG TABLET 650 MG PO (01:22)
[2024-08-08 03:39] VITALS: O2SAT 92
[2024-08-08 04:00] VITALS: BP 122/73; PULSE 73; TEMP 36.5; O2SAT 95
[2024-08-08 06:18] LABS: Basophils Percent Auto 0.5 % (0.2-2.0); Eosinophils Absolute Auto 0.2 10^3/uL (0.0-0.7); Eosinophils Percent Auto 2.8 % (0.9-7.0); Hematocrit 30.3 % (36.0-48.0); Hemoglobin 9.8 g/dL (12.0-16.0); Immature Granulocytes Abs Auto 0.01 10^3/uL (0.00-0.03); Immature Granulocytes Pct Auto 0.2 % (0.0-0.5); Lymphocytes Absolute Auto 1.2 10^3/uL (1.2-3.8); Lymphocytes Percent Auto 20.3 % (20.5-60.0); Mean Corpuscular HGB Conc 32.3 g/dL (29.9-35.2); Mean Platelet Volume 9.5 fL (9.5-13.5); Monocytes Absolute Auto 0.6 10^3/uL (0.3-0.8); Monocytes Percent Auto 9.5 % (1.7-12.0); Neutrophils Absolute Auto 4.1 10^3/uL (1.4-6.5); Neutrophils Percent Auto 66.7 % (43.0-75.0); Platelet Count 163 10^3/uL (150-450); Red Blood Count 3.06 10^6/uL (4.20-5.40); Red Cell Distribution Width 13.4 % (11.0-15.0); White Blood Count 6.1 10^3/uL (4.0-11.0)
[2024-08-08 06:31] LABS: Alanine Aminotransferase 15 U/L (14-59); Albumin Globulin Ratio 0.9; Albumin Level 2.5 g/dL (3.4-5.0); Alkaline Phosphatase 59 U/L (46-116); Anion Gap 14.4; Aspartate Amino Transferase 20 U/L (15-37); BUN Creatinine Ratio 14.6; Bilirubin Total 0.5 mg/dL (0.2-1.0); Carbon Dioxide 26.5 mmol/L (21.0-32.0); Chloride 104 mmol/L (98-107); Estimated GFR (African America >60 (>=60 mL/min/1.73m^2); Estimated GFR (Non-African Ame >60 (>=60 mL/min/1.73m^2); Globulin 2.8 g/dL; Glucose 86 mg/dL (74-106); Potassium 3.9 mmol/L (3.5-5.1); Sodium 141 mmol/L (136-145); Total Protein 5.3 g/dL (6.4-8.2)
[2024-08-08] MEDS: OXYCODONE HCL 5 MG TABLET PO (06:40)
[2024-08-08] MEDS: LEVOTHYROXINE SODIUM 75 MCG TABLET PO (06:41)
[2024-08-08] MEDS: ONDANSETRON PF 4 MG/2 ML VIAL IV (06:41)
[2024-08-08] MEDS: PRAMIPEXOLE 0.125 MG TABLET 0.25 MG PO ×2 (06:41→13:30)
[2024-08-08 06:42] LABS: Calcium 5.9 mg/dL (8.5-10.1)
--- OUTSIDE RECORDS SUMMARY | 2024-08-08 07:23 | XMS_ITS | CCD ---
Author Organization [facility] Inform ion Partnership [facility] Care Team Providers Care Cleaning Staff Supervisor Name Role Phone DONNA TURCIOS Unavailable Unavailable CARIE REINA Unavailable Unavailable Bean Cantu Primary Care Provider Puneet Raymundo Attending Provider Curtis Alcocer Attending Provider Pratik Tadeo Unavailable Unavailable Unavailable Giovanny, Aba Unavailable Carie Keith Unavailable Alyssa Weller Unavailable PRATIK TADEO Primary Care Physician Unavailable Unavailable MD Madhav Conrad Attending Provider [phone] Seema Sutherland Primary Care Provider [phone] Madhav Conrad Unavailable RODERICK KONG Attending Unavailable RODERICK KONG Admitting Unavailable RODERICK KONG Consulting Unavailable DR PRATIK TADEO Primary Care Unavailable GIOVANNY, ABA Attending Unavailable DR PRATIK TADEO Primary Care Unavailable GIOVANNY, ABA Consulting Unavailable GIOVANNY, ABA Admitting Unavailable GIOVANNY, ABA Attending Unavailable DR PRATIK TADEO Primary Care Unavailable GIOVANNY, ABA Consulting Unavailable GIOVANNY, AAB Admitting Unavailable AICHHOLUmer, SPINE SPECIALIST SEEMA Consulting Unavailable DR PRATIK TADEO Primary Care Unavailable AICHHOLUmer, SPINE SPECIALIST SEEMA Admitting Unavailable AICHHOLZ, SPINE SPECIALIST SEEMA Attending Unavailable ZOEY, DR JAYLEEN Manzo Consulting Unavailable TURCIOS, DR DONNA Deleon Admitting Unavailable TURCIOS, DR DONNA Deleon Attending Unavailable TURCIOS, DR DONNA Deleon Consulting Unavailable AICHHOLZ, SPINE SPECIALIST SEEMA Primary Care Unavailable AICHHOLZ, SPINE SPECIALIST SEEMA Consulting Unavailable AICHHOLZ, SPINE SPECIALIST SEEMA Primary Care Unavailable AICHHOLZ, SPINE SPECIALIST SEEMA Admitting Unavailable AICHHOLZ, SPINE SPECIALIST SEEMA Attending Unavailable AICHHOLZ, SPINE SPECIALIST SEEMA Primary Care Unavailable GIOVANNY, ABA Attending Unavailable GIOVANNY, ABA Consulting Unavailable GIOVANNY, ABA Admitting Unavailable Aichholz, Seema J Primary Care Provider [phone] MD Curtis Alcocer Attending Provider Aicjeannie, Seema [...] (2 sources) Morphine Drug Allergy 1 Hallucinating [facility] (7 sources) Morphine Derivatives; Translations: [Morphine Derivatives] Allergy to drug (finding) Other -[facility] y 250 DO Work Phone: (11 sources) fesoterodine Drug Allergy 4 dizziness/light hearded [facility] (15 sources) Morphine; Translations: [MORPHINE] Drug Allergy 8 hallucinations, Hallucinating, Hallucinating, hallucinations [facility] (1 source) Morphine Drug Allergy [facility] Repository (1 source) Morphine Drug Allergy 1 [facility] Repository Medications Current Medications Medication Drug Class(es) [...] day(s), # 10 cap(s), Refills(s) 0, Pharmacy: [facility] [id number], 144, cm, 09/27/23 13:10:00 EST, Height/Length Dosing, 49, kg, 09/27/23 13:10:00 EST, Weight Dosing Start Date: 11/13/23 Stop Date: 11/18/23 Status: Ordered Start: 09-27-2023 take 1 capsule by mo uth twice daily Keflex 500 mg Cap 500 mg = 1 cap(s), Oral, BID, start one day prior to procedure., # 14 cap(s), Refills(s) 0, Pharmacy: [facility] [id number], 144, cm, 09/27/23 13:10:00 EST, Height/Length Dosing, 49, kg, 09/27/23 13:10:00 EST, Weight Dosing Start Date: 09/27/23 Status: Ordered Start: 08-16-2023 take 1 capsule by [facility] twice daily Keflex 500 mg Cap 500 mg = 1 cap(s), Oral, BID, # 14 cap(s), Refills(s) 0, Pharmacy: [facility] [id number], 144, cm, 08/16/23 10:03:00 EDT, Height/Length Dosing, 49, kg, 08/16/23 10:03:00 EDT, Weight Dosing Start Date: 08/16/23 Status: Ordered Start: 05-19-2022 End: 05-29-2022 take 1 capsule by mouth twice daily Keflex 500 mg Cap 500 mg = 1 cap(s), Oral, BID, X 10 day(s), # 20 cap(s), Refills(s) 0, Pharmacy: [facility] [id number], 144, cm, 05/19/22 14:08:00 EDT, Height/Length Dosing, 49, kg, 05/11/22 11:21:00 EDT, Weight Dosing Start Date: 05/19/22 Stop Date: 05/29/22 Status: Ordered Start: 05-11-2022 take 1 capsule by [facility] twice daily Keflex 500 mg Cap 500 mg = 1 cap(s), Oral, BID, Pt. to start 3 days prior to bladder botox injections, # 14 cap(s), Refills(s) 0, Pharmacy: [facility] [id number], 144, cm, 05/11/22 11:21:00 EDT, Height/Length Dosing, 49, kg, 05/11/22 11:21:00 EDT, Weight Dosing Start Date: 05/11/22 Status: Ordered ciprofloxacin 500 mg oral tablet (3 sources) Quinolone Antimicrobial Start: 11-13-2023 Cipro 500 mg Tab 500 mg = 1 tab(s), Oral, BID, Take twice daily x5 days starting the day prior to the procedure, # 10 tab(s), Refills(s) 0, Pharmacy: [facility] [id number], 144, cm, 09/27/23 13:10:00 EST, Height/Length Dosing, [...] # 30 tab(s), Refills(s) 11, Pharmacy: [facility] [id number], 144, cm, 08/16/23 10:03:00 EDT, Height/Length Dosing, 49, kg, 08/16/23 10:03:00 EDT, Weight Dosing Start Date: 08/16/23 Status: Ordered Start: 04-12-2023 take 0.5 g by mouth once daily methenamine hippurate 1 g oral tablet 0.5 gm = 0.5 tab(s), Oral, Daily Start Date: 04/12/23 Status: Ordered Start: 01-31-[address] [facility] once daily methenamine mandelate 0.5 g oral tablet 0.5 gm = 1 tab(s), Oral, Daily, # 90 tab(s), Refills(s) 3, Pharmacy: [id number], 144, cm, 12/27/21 11:31:00 EST, Height/Length [...] Daily Adults 50+ Active polyethylene glycol 3350 02063 mg powder for oral solution (5 sources) [...] Coronary arteriosclerosis; Translations: [Atherosclerotic heart disease of [place] coronary artery without angina pectoris] Onset: 03-24-2022 [...] Unclassified (1 source) Athscl heart disease of [place] coronary artery w/o ang pctrs / I25.10(ICD-9) [...] Resolved: 10-18-2021 Episodic Other aftercare (1 source) prison (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 of aspirin; Translations: [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 SECURITY 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 CURRENT USE OF ASPIRIN] Onset: 03-24-2022 Episodic Other aftercare (1 source) Other alf (current) drug therapy; Translations: [OTH NETWORK SECURITY 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 CURRENT DRUG THERAPY] Onset: 03-24-2022 Episodic Other [...] Santo MD on 07/18/2024 10:01 PM Normal [facility] CT CERVICAL SPINE WO CONTon 07-18-2024 CT [...] Alfonso MD on 07/18/2024 10:01 PM Normal [facility] XR ELBOW RT MIN 3 VWSon 09- [...] Alfonso MD on 07/18/2024 10:05 PM Normal [facility] XR SHOULDER RT MIN 2 VWSon 0 [...] Alex Alfonso MD on 07/18/2024 10:[address] [facility] Lab Reportson 04-11-2024 Lab Reports [id number]#1.00TIF F [facility] Ambulatory Visit Summaryon 0 04-10-2024 Ambulatory [...] JENKINS MD Where: [facility] Patient Educationon 04-10-20 Patient Education Urology Urinary [...] stimulation). ? For women, using a medical secretary receptionist to prevent urine leaks. This is a [...] urine. ? (more content not included)... Normal [facility] Urology Office/Clinic Noteon 04-10-2024 Urology Office/Clinic Note [...] with voice recognition artificial intelligence software, specifically [employer], [employer] and or [employer]. Substitutions may have occurred due to the [...] Information TRINA WATSON, Med Hilario, URL [address] [address]- Additional Instructions: 6 mos Patient Education Urinary Incontinence Jenny Haley, personally scribed for Dr. Jenkins on 04/10/2024 10:25:32. . Documentation recorded by the scribe, Jenny Luna, accurately reflects the services(s) I performed and decisions made by me. Authenticated by Dr. Jenkins on 04/10/2024 10:26:50. 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 [facility] Comment on above: Result Comment: Elec tronically Signed By: Med JENKINS MD\.br\Date and Time Signed: 04/10/24 10:27 EDT\.br\Electronically Co-Signed By: Jenny Luna\.br\Date and Time Co-Signed: 04/10/24 10:25 EDT Consent for Procedure/Surger yon 03-13-2024 Consent for Procedure/Surgery [id number]#1.00TIF F [facility] Consent for Procedure/Surgery [id number]#1.00TI FF [facility] Erythrocyte distribution wid th Auto (RBC) [Ratio]on 02-27-2024 Erythrocyte distribution width (RBC) [Ratio] 13.0 % 11.0-15.0 [facility] Estimated glomerular filtrat ion rate (GFR) non- Americanon 02-27-2024 GFR/1.73 sq M.predicted among non-blacks MDRD (S/P/Bld) [Vol rate/Area] 57 mL/min/{1.73_m2} >=60 [facility] Hematocrit Auto (Bld) [Volum e fraction]on 02-27-2024 Hematocrit (Bld) [Volume fraction] 37.0 % 36.0-48.0 [facility] Hemoglobin [Mass/volume] in Bloodon 02-27-2024 Hemoglobin (Bld) [Mass/Vol] 12.1 g/dL 12.0-16.0 [facility] Laboratory - Chemistry and C hemistry - challengeon 02-27-2024 Albumin [Mass/Vol] 3.5 g/dL 3.4-5.0 [facility] Calcium [Mass/Vol] 9.3 mg/dL 8.5-10.1 [facility] Chloride [Moles/Vol] 104 mmol/L 98-107 [facility] CO2 [Moles/Vol] 29.1 mmol/L 21.0-32.[address] [facility] Creatinine [Mass/Vol] 0.94 mg/dL 0.55-1.02 [facility] GFR/1.73 sq M.predicted MDRD (S/P/Bld) [Vol rate/Area] mL/min/{1.73_m2} >=60 [facility] Glucose [Mass/Vol] 126 mg/dL 74-106 [facility] Magnesium [Mass/Vol] 1.7 mg/dL 1.8-2.4 [facility] Potassium [Moles/Vol] 4.1 mmol/L 3.5-5.1 [facility] Sodium [Moles/Vol] 141 mmol/L 136-145 [facility] Urea nitrogen [Mass/Vol] 28.0 mg/dL 7.0-18.0 [facility] Urea nitrogen/Creatinine [Mass ratio] 29.8 mg/mg [facility] Leukocytes [#/volume] correc db for nucleated erythrocytes in Blood by Automated counon 02-27-2024 WBC corrected for nucl RBC Auto (Bld) [#/Vol] 9.9 10 3/uL 4.0-11.0 [facility] MCH Auto (RBC) [Entitic mass ]on 02-27-2024 MCH (RBC) [Entitic mass] 32.6 pg 26.7-34.0 [facility] MCHC Auto (RBC) [Mass/Vol]on 02-27-2024 MCHC (RBC) [Mass/Vol] 32.7 g/dL 29.9-35.2 [facility] MCV Auto (RBC) [Entitic vol] on 02-27-2024 MCV (RBC) [Entitic vol] 99.7 fL 81.0-99.0 [facility] No Panel Informationon 02-26 25-Hydroxy Vitamin D Total 34.4 ng/mL [facility] Comment on above: <20 ng/mL Vit D defi cient20-<30 ng/mL Vit D wwcojnflhntb61-764 ng/mL Vit D sufficient>100 ng/mL Potential Toxicity Parathyroid Hormone (Intact) 3 pg/mL 15-65 [facility] Comment on above: Performed at: [facility] [address] [id number] Director: Conrado Gates PhD, Phone: [phone] Phosphorus Level 3.6 mg/dL 2.6-4.[address] [facility] Platelet mean volume Auto (B ld) [Entitic vol]on 02-27-2024 Platelet mean volume (Bld) [Entitic vol] 9.4 fL 9.5-13.5 [facility] Platelets Auto (Bld) [#/Vol] on 02-27-2024 Platelets (Bld) [#/Vol] 196 10 3/uL 150-450 [facility] RBC Auto (Bld) [#/Vol]on RBC (Bld) [#/Vol] 3.71 10 6/uL 4.20-5.40 [facility] Serum or plasma anion gap de terminationon 02-27-2024 Anion gap [Moles/Vol] 12.0 mmol/L [facility] Consent for Treatmenton 01-29 Consent for Treatment [id number]#[id number] FF Normal [facility] Inpatient Patient Summaryon 02-26-2024 Inpatient Patient Summary [place] [id number] Clinical Summary Person Information Name: NARCISO VELASQUEZ Age: 83 Years : 1940 Sex: Female PCP: PRATIK TADEO MD Marital Status: Race: White Ethnicity: Non- or Language: Albanian Visit Id: Visit Reason: URINARY INCONTINENCE Speciality: Acuity: Enc Type: Outpatient Med Service: Surgery Arrival: 02/26/2024 12:39:14 Discharge: Dispo Type: Address: [address] [place] [id number] Provider Notes: Diagnosis: Problems Active Incontinence without sensory awareness Recurrent UTI Incomplete bladder emptying Stress incontinence UTI (urinary tract infection) Urinary retention UTI symptoms Overactive bladder Aspirin long-term use Weak urine stream Weak urinary stream 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 Patient Education Information: EU - Cystoscopy with Botox Injection Discharge Instructions (Custom) [facility] IntraOperative Documentson 0 02-26-2024 IntraOperative Documents [id number]#[id number] FF [facility] Main OR Intraoperative Recor don 02-26-2024 Main OR Intraoperative Record IntraOp Document Type FTURO Summary Primary Physician: Med JENKINS MD Finalized Date/Time: 02/26/24 13:43:34 Pt. Name: RONNARCISO/Sex: 1940 Female Med Rec #: [id number] Physician: Med JENKINS MD Financial #: [id number] Pt. Type: O Room/Bed: / Admit/Disch: 02/26/24 [...] Krishna Moctezuma Role Performed Surgeon - Primary Computer Forensics Analyst - Primary Scrub - Primary Time [...] Comments: botox 100 units out date03/24 lot [id number] botox 50 units outdate 12/25 lot [id number] General Case Data FTURO Pre-Care Text: Classifies [...] JASPREET Bennett RN, Ruthann 02/26/24 13:43 Normal [facility] Main OR Preoperative Recordo n 02-26-2024 Main OR Preoperative Record Holding Area Document Type FTURO Summary Primary Physician: Med JENKINS MD Finalized Date/Time: 02/26/24 13:13:19 Pt. Name: NARCISO VELASQUEZ Derrick Tellez./Sex: 1940 Female Med Rec #: [id number] Physician: Med JENKINS MD Financial #: [id number] Pt. Type: O Room/Bed: / Admit/Disch: 02/26/24 [...] By: Dorie Logan RN 02/26/24 13:13 Normal [facility] Operative Reporton Operative Report Patient: STEPHANIA VELASQUEZ Age: 83 years Sex: Female : 1940 Associated Diagnoses: None Author: Med JENKINS MD Procedure Operative Information Details: Date/ Time: 02/26/2024 13:46:00. Pre-Op Dx: Overactive bladder (YPF38-CQ N32.81, Working, Medical), Urgency incontinence (IVD01-UU N39.41, Working, Medical). Post-Op Dx: Same. Anesthesia [...] Follow up arranged, F/U six weeks. Normal [facility] Comment on above: Result Comment: Elec tronically Signed By: Med JENKINS MD\.br\Date and Time Signed: 02/26/24 13:51 EDT Outpatient Surgery Discharge Instructionon 02-26-2024 Outpatient Surgery Discharge Instruction [id number]#[id number] FF Normal [facility] Outpatient Surgery Discharge Instruction [place] [id number] Patient Discharge Instructions PERSON INFORMATION Name: NARCISO [...] Follow up: With: Address: When: Mde JENKINS [address] [place] [address], [address], [place] [phone] [facility] (1) Within 6 weeks Comments: Call [...] Date You may receive a survey from [facility] asking you to rate your care experience. Your feedback is important and will help us understand what we do well and how we can improve the quality of care we provide to you, your loved ones and our community. It?s an honor to serve you. Thank you for choosing [facility] Normal [facility] C Urineon 11-16-2023 Bacteria identified Cx Nom [...] Locations R1: This test was performed at: [facility], [address] [place] [address], [facility] , , [facility] Comment on above: Performed By: #### 2 [id number] ####[place] [address] Consent for Treatmenton 10-30 Consent for Treatment [id number] F Normal [facility] Inpatient Patient Summaryon 11-13-2023 Inpatient Patient Summary [address] [address] Clinical Summary Person Information Name: NARCISO VELASQUEZ Age: 82 Years : 1940 Sex: Female PCP: PRATIK TADEO MD Marital Status: Race: White Ethnicity: Non- or Language: Albanian Visit Id: Visit Reason: URINARY INCONTINENCE Speciality: Acuity: Enc Type: Outpatient Med Service: Surgery Arrival: 11/13/2023 13:31:33 Discharge: Dispo Type: Address: [address] [place] [id number] Provider Notes: Diagnosis: Problems Active Incontinence without sensory awareness Recurrent UTI Incomplete bladder emptying Stress incontinence UTI (urinary tract infection) Urinary retention UTI symptoms Overactive bladder Aspirin long-term use Weak urine stream Weak urinary stream Hx of alf 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 thinners Mixed incontinence Frequency [...] up: With: Address: When: Med JENKINS [address] [facility], [address], [place] [phone] Business (1) Comments: As you know we [...] locally and the cranberry is self-explanatory. My unhairing inspector will call you to get you back on the books for the Botox injection. Patient Education Information: Franca [facility] Main OR Preoperative Recordo n 11-13-2023 Main OR Preoperative Record Holding Area Document Type FTURO Summary Primary Physician: Finalized Date/Time: 11/13/23 16:40:45 Pt. Name: NARCISO VELASQUEZ Derrick Alicea/Sex: 1940 Female Med Rec #: [id number] Physician: Med JENKINS MD Financial #: [id number] Pt. Type: O Room/Bed: / Admit/Disch: 11/13/23 [...] and he said they would call her scan coordinator right away shashank. Finalized By: JASPREET Bennett RN, Ruthann Document Signatures Signed By: JASPREET Bennett RN, Ruthann 11/13/23 14:43 JASPREET Bennett RN, Ruthann 11/13/23 14:43 JASPREET Bennett RN, Ruthann 11/13/23 16:40 Normal [facility] Outpatient Surgery Discharge Instructionon 11-13-2023 Outpatient Surgery Discharge Instruction [address] [address] Patient Discharge Instructions PERSON INFORMATION [...] Follow up: With: Address: When: Med JENKINS [address] [place] [address], [address], [place] [phone] Business (1) Comments: As you know we [...] locally and the cranberry is self-explanatory. My unhairing inspector will call you to get you back on the books for the Botox injection. Comment: PATIENT EDUCATION INFORMATION Instructions: I, NARCISO VELASQUEZ, have received the attached patient education materials/instructions and have verbalized understanding: May we do a follow up call? Yes No I was present when discharge instructions were given Patient Signature Date Clinican/Nurse Signature Date You may receive a survey from [facility] asking you to rate your care experience. Your feedback is important and will help us understand what we do well and how we can improve the quality of care we provide to you, your loved ones and our community. It?s an honor to serve you. Thank you for choosing [facility] Normal [facility] Patient Educationon 11-13-19 Patient Education Normal [facility] Progress Note-Physicianon Progress Note-Physician Patient: NARCISO VELASQUEZ [...] procedure., # 14 cap(s), Refills(s) 0, Pharmacy: [facility] [id number], 144, cm, 09/27/23 13:10:00 EST, Height/Length Dosing, [...] All Problems Kidney stone / SNOMED CT 642553258 / Confirmed Incontinence without sensory awareness / SNOMED CT 9518628576 / Confirmed Weak urinary stream / SNOMED CT 6792220722 / Confirmed Urge incontinence of urine / SNOMED CT 111045037 / Confirmed Flank pain / SNOMED CT 912954601 / Confirmed Myocardial infarction / SNOMED CT 23674028 / Confirmed Nocturia / SNOMED CT 738690110 / Confirmed Urinary urgency / SNOMED CT 952562369 / Confirmed 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 / SNOMED CT 577580186 / Confirmed Urgency of urination / SNOMED CT 159339861 / Confirmed Urge incontinence / SNOMED CT 874217448 / Confirmed Dysuria / SNOMED CT 52697900 / Confirmed Asymptomatic microscopic hematuria / SNOMED CT 8150999132 / Confirmed Mixed incontinence / SNOMED CT 70551639 / Confirmed Frequency of urination / SNOMED CT 616110544 / Confirmed Weak urine stream / SNOMED CT 268652843 / Confirmed OAB (overactive bladder) / SNOMED CT 6342804400 / Confirmed Aspirin long-term use / SNOMED CT 5677738053 / Confirmed Overactive bladder / SNOMED CT 6463576881 / Confirmed UTI symptoms / SNOMED CT 889614381 / Confirmed Urinary retention / SNOMED CT 630384052 / Confirmed UTI (urinary tract infection) / SNOMED CT 967820465 / Confirmed Stress incontinence / SNOMED CT 994085804 / Confirmed Incomplete bladder emptying / SNOMED CT 072396431 / Confirmed Recurrent UTI / SNOMED CT 458538968 / Confirmed Incontinence without sensory awareness / SNOMED CT 2987942580 / Confirmed, Active Problems (26) Aspirin long-term use Asymptomatic microscopic hematuria Dysuria Flank pain Frequency of urination 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 Additional Plan of Care and/or Course of Treatment: Additional Plan of Care and/or Course of Treatment: Discussed extensively with the patient and her . Due to the presence of what appears to be an active urinary tract infection, have to cancel the B (more content not included)... Normal [facility] Comment on above: Result Comment: Elec tronically Signed By: Med JENKINS MD\.br\Date and Time Signed: 11/13/23 14:46 EST Ambulatory Visit Summaryon 1 11-27-2022 Ambulatory Visit Summary NARCISO VELASQUEZ :1940 Visit Date:09/27/2023 Ambulatory Visit Instructions Your Diagnosis Urge incontinence Incontinence without sensory awareness OAB (overactive bladder) Recurrent UTI Tests Performed Urnls Dip Stick Auto w/o Microscopy POC 31213 Your Care Team Attending Physician - Med [...] Follow-Up Appointments Monday 9:45 AM EST Where: [facility] Monday 2:45 PM EST Where: [facility] You Need to Schedule the Following Appointments Follow Up with COOK MD, Med P, URL When: Where: [address] [address]- Medications What How Much When Instructions Changed cephalexin (Keflex 500 mg Cap) 1 Capsules By Mouth 2 times a day start one day prior to procedure. Pickup at [facility] [id number] Unchanged acetaminophen Contact prescribing physician if questions [...] physician if questions or concerns Pharmacy Information [facility] [id number]: [address] [place], [place] [id number] [phone] What How Much When Comments Stop Taking methenamine (methenamine hippurate 1 g oral tablet) 0.5 Tablets By Mouth Every day Test Results Urnls Dip Stick Auto w/o Microscopy POC 82827 (09/27/2023) POC Test Comments - Pt. was not able to urinate Allergies No Known Allergies Problems Ongoing - Any problem that you are currently receiving treatment for. 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 Normal [facility] Patient Educationon 09-27-20 23 Patient Education Urology [...] stimulation). ? For women, using a medical secretary receptionist to prevent urine leaks. This is a [...] urine. ? (more content not included)... Normal [facility] Urology Office/Clinic Noteon 09-27-2023 Urology Office/Clinic Note [...] with voice recognition artificial intelligence software, specifically [employer], [employer] and or [employer]. Substitutions may have occurred due to the [...] Contact Information Med JENKINS MD, URL [address] [place], [place] [id number]- Additional Instructions: Schedule botox 150 units Patient Education Urinary Incontinence IJenny, personally scribed for Dr. Jenkins on 09/27/2023 13:17:45. . Documentation recorded by the scribe, Jenny Luna, accurately reflects the services(s) I performed and decisions made by me. Authenticated by Dr. Jenkins on 09/27/2023 13:21:04. Problem List/Past Medical History Ongoing Aspirin l (more content not included)... Normal [facility] Comment on above: Result Comment: Elec tronically [...] Locations R1: This test was performed at: [facility], [address] [place] [address], [address]- , , [facility] Comment on above: Performed By: #### 2 [id number] #### [facility] [address] [place] [id number] Ambulatory Visit Summaryon 1 Ambulatory Visit Summary NARCISO VELASQUEZ :1940 Visit Date:08/16/2023 Ambulatory Visit Instructions Your Diagnosis Urge incontinence OAB (overactive bladder) Recurrent UTI Tests Performed Urnls Dip Stick Auto w/o Microscopy POC 00607 Your Care Team Attending Physician - Med [...] JENKINS MD Where: [facility] Patient Educationon 10-18-20 23 Patient Education Obstetrics [...] this condition includes: ? Antibiotic medicine. ? Qkwe-ynp-btnhmmt medicines to treat discomfort. ? Drinking enough [...] these instructions at home: Medicines ? Take diom-cym-nexfvfv and prescription medicines only as told by [...] Revpérez (more content not included)... Normal [facility] [...] with voice recognition artificial intelligence software, specifically [employer], [employer] and or [employer]. Substitutions may have occurred due to the [...] at next visit -Check with [facility] in [place] regarding incontinence supplies 1a. Current UTI. 2. [...] P, URL [address] [address]- Additional Instructions: 6 wks since starting Methenamine [...] Flank pain Frequency of urination Hx of alf 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 thinners Incomplete bladder emptying Incontinence without sensory awareness Kidney stone Mixed incontinence Myocardial infarction Nocturia OAB (overactive bladder) Overactive bladder Recurrent UTI Stress incontinence Urge incontinence Urge incontinence of urine Urgency of urin (more content not included)... Normal [facility] Comment on above: Result Comment: Elec tronically [...] rheumatology locally, currently stable Donna Turcios MD, [facility] Surgical History Problems History of Angioplasty [...] negative for complaint. Vitals Vital Signs Recorded: [id number] 10:40AM Heart Rate60, L Radial Mqflhbjt283, LUE, Sitting Hnsrfxycs35, LUE, Sitting Height4 ft 10 in Adjbzu085 lb BMI Yodueeuylp33.11 kg/m2 BSA Calculated1.36 Tobacco Useb) No Falls [...] Jul 20 2023 12:36PM EST (Author) Normal [employer] Tobacco Screening.on 023 Fall risk assessment a) No falls within the last year [facility] 250 DO Work Phone: Tobacco use status CP b) No [facility] 250 DO Work Phone: XR calcaneus BIon 07-05-2023 XR calcaneus BI [facility] Main Opal [address] [place] [address] XRay Report Signed Patient: Narciso Velasquez MR#: [id number] : 1940 Acct:[id number] Age/Sex: 82 / F ADM Date: 07/05/23 Loc: ICXD [facility]: [facility] Att[facility] Dr: Curtis Alcocer MD Copies to: Curtis Alcocer MD Ordering Provider: Curtis Alcocer MD Date of Service: 07/05/23 XR/XR foot BI 2V: BENJIE HEAL/FOOT PAIN ([id number]) XR/XR calcaneus BI: FOOT/HEAL PAIN CLINICAL DATA: [...] Zuly Leon M.D.07/05/2023 5:55 PM Dictation Location: [place] [address] Transcribed By: [facility] 07/05/231754 Dictated By: Zuly Leon MD 07/05/231752 Signed By: 07/05/231754 [place] [facility] 06-12-2023 Lab Reports [id number]: 127 Normal [facility] Lab Reports [id number]#1.00CD: 127 Normal [facility] Lab Reports [id number]: 127 Normal [facility] Report[facility] 06-10-2023 Lab Reports [id number]#1.00CD: 127 Normal [facility] Consent for Procedure/Surger yon 05-11-2023 Consent for Procedure/Surgery [id number]#1.00CD :127 Normal [facility] Consent for Treatmenton 04-29 Consent for Treatment [id number]: 127 Normal [facility] Inpatient Patient Summaryon 05-11-2023 Inpatient Patient Summary [place] [id number] Clinical Summary Person Information Name: NARCISO VELASQUEZ Age: 82 Years : 1940 Sex: Female PCP: PRATIK TADEO MD Marital Status: Race: White Ethnicity: Non- or Language: Albanian Visit Id: Visit Reason: URINERY INCONTINENCE Speciality: Acuity: Enc Type: Outpatient Med Service: Surgery Arrival: 05/11/2023 07:16:35 Discharge: Dispo Type: Address: [address] [place] [id number] Provider Notes: Diagnosis: Problems Active Incomplete bladder emptying Stress incontinence UTI (urinary tract infection) Urinary retention UTI symptoms Overactive bladder Aspirin long-term use Weak urine stream Weak urinary stream 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 Patient Education Information: EU - Cystoscopy with Botox Injection Discharge Instructions (Custom) [facility] IntraOperative Documentson 0 05-11-2023 IntraOperative Documents [id number]#1.00CD :127 [facility] Main OR Intraoperative Recor don 05-11-2023 Main OR Intraoperative Record IntraOp Document Type FTURO Summary Primary Physician: Med JENKINS MD Finalized Date/Time: 05/11/23 08:07:27 Pt. Name: NARCISO VELASQUEZ/Sex: 1940 Female Med Rec #: [id number] Physician: Med JENKINS MD Financial #: [id number] Pt. Type: O Room/Bed: / Admit/Disch: 05/11/23 [...] Kendall R Role Performed Surgeon - Primary Computer Forensics Analyst - Primary Scrub - Primary Time [...] 08:07:16 General Comments: botox 100 units, lot: [id number] exp: General Case Data FTURO Pre-Care Text: [...] 05/11/23 08:07 Heather Randhawa 05/11/23 08:07 Normal [facility] Main OR Preoperative Recordo n 05-11-2023 Main OR Preoperative Record Holding Area Document Type FTURO Summary Primary Physician: Med JENKINS MD Finalized Date/Time: 05/11/23 07:53:38 Pt. Name: RONNARCISO./Sex: 1940 Female Med Rec #: [id number] Physician: Med JENKINS MD Financial #: [id number] Pt. Type: O Room/Bed: / Admit/Disch: 05/11/23 [...] 07:36 Dorie Logan RN 05/11/23 07:53 Normal [facility] Operative Reporton 3 Operative Report Patient: STEPHANIA [...] months with bladder scan PVR. . Normal [facility] Comment on above: Result Comment: Elec tronically Signed By: Med JENKINS MD\.br\Date and Time Signed: 05/11/23 08:03 EDT Outpatient Surgery Discharge Instructionon 05-11-2023 Outpatient Surgery Discharge Instruction [place] [id number] Patient Discharge Instructions PERSON INFORMATION Name: NARCISO [...] Follow up: With: Address: When: [facility] [address], [facility] [address] [place] [phone] [facility] (1) Within 3 months Comments: Call [...] Date You may receive a survey from [employer] asking you to rate your care experience. Your feedback is important and will help us understand what we do well and how we can improve the quality of care we provide to you, your loved ones and our community. It?s an honor to serve you. Thank you for choosing [facility] Normal [facility] Office Visit (Cardiology)on 01-12-2023 Follow-up visit Diagnoses/Problems [...] Metabolic Panel; Status:Active - Retrospective Authorization; Requested for:[id number]; Complete Blood Count; Status:Active - Retrospective Authorization; Requested for:[id number]; Atherosclerosis of coronary artery, Hyperlipidemia ALT - Alanine Aminotransferase, Serum; Status:Active - Retrospective Authorization; Requested for:10Jul2023; AST; Status:Active - Retrospective Authorization; Requested for:10Jul2023; Lipid Panel; Status:Active - Retrospective Authorization; Requested for:[id number]; SocHx: Never a smoker Tobacco Use Screening; [...] rheumatology locally, currently stable Donna Turcios MD, [facility] Surgical History Problems History of Angioplasty [...] Recorded: 12Jan2023 11:13AM Heart Rate88, L Radial Xiferhaq172, LUE, Sitting Jiscwttog95, LUE, Sitting Height4 ft 10 in Sczifn888 lb BMI Uiizvcmwbm46.95 kg/m2 BSA Calculated1.38 Tobacco Useb) No PHQ-2 [...] . Pulmo (more content not included)... Normal [employer] Tobacco Screening.on 023 Adult depression screening assessment No [facility] [employer] y 250 DO Work Phone: Fall risk assessment a) No falls within the last year [facility] 250 DO Work Phone: Tobacco use status CP b) No [facility] 250 DO Work Phone: PTH INTACTon 11-30-2022 PTH, Intact 3 pg/mL Critically low 15-65 [facility] Comment on above: Performed By: #### MG TC #### [facility] [address] [place] [address] Dr. Emilie Jeronimo HEMOGRAM AND PLATELon 2022 Hematocrit (Bld) [Volume fraction] 38.0 % Normal 36.0-48.0 [facility] Comment on above: Performed By: #### MG TC #### [facility] [address] [place] [address] Dr. Emilie Jeronimo Hemoglobin (Bld) [Mass/Vol] 12.9 g/dL Normal 12.0-16.0 [facility] Comment on above: Performed By: #### R ENAL, MG #### [facility] [address] [place] [address] Dr. Emilie Jeronimo MCH (RBC) [Entitic mass] 32.5 pg Normal 26.7-34.0 [facility] Comment on above: Performed By: #### R ENAL, MG #### [facility] [address] [place] [address] Dr. Emilie Jeronimo MCHC (RBC) [Mass/Vol] 33.9 g/dL Normal 29.9-35.2 [facility] Comment on above: Performed By: #### R ENAL, MG #### [facility] [address] [place] [address] Dr. Emilie Jeronimo MCV (RBC) [Entitic vol] 95.7 fL Normal 81.0-99.0 [facility] Comment on above: Performed By: #### R ENAL, MG #### [facility] [address] [place] [address] Dr. Emilie Jeronimo PLT 214 103/ul Normal 150-450 [facility] Comment on above: Performed By: #### R ENAL, MG #### [facility] [address] [place] [address] Dr. Emilie Jeronimo RBC 3.97 106/ul Critically low 4.20-5.40 [facility] Comment on above: Performed By: #### R ENAL, MG #### [facility] [address] [place] [address] Dr. Emilie Jeronimo WBC 7.7 103/ul Normal 4.0-11.0 [facility] Comment on above: Performed By: #### R ENAL, MG #### [facility] [address] [place] [address] Dr. Emilie Jeronimo MAGNESIUMon 11-29-2022 Magnesium [Mass/Vol] 1.3 mg/dL Critically low 1.8-2.4 [facility] Comment on above: Performed By: #### R ZEESHAN, MG #### [facility] [address] [place] [address] Dr. Emilie Jeronimo RENAL FUNCTION PANELon 11-29 Albumin [Mass/Vol] 3.6 g/dL Normal 3.4-5.0 [facility] Comment on above: Performed By: #### R ENMICHELLE, MG #### [facility] [address] [place] [address] Dr. Emilie Jeronimo Calcium [Mass/Vol] 9.4 mg/dL Normal 8.5-10.1 [facility] Comment on above: Performed By: #### R ENMICHELLE, MG #### [facility] [address] [place] [address] Dr. Emilie Jeronimo Chloride [Moles/Vol] 103 mmol/L Normal 98-107 [facility] Comment on above: Performed By: #### R ENMICHELLE, MG #### [facility] [address] [place] [address] Dr. Emilie Jeronimo CO2 [Moles/Vol] 32.5 mmol/L Critically high 21.0-32.0 [facility] Comment on above: Performed By: #### R ENMICHELLE, MG #### [facility] [address] [place] [address] Dr. Emilie Jeronimo Creatinine [Mass/Vol] 0.79 mg/dL Normal 0.55-1.02 [facility] Comment on above: Performed By: #### R ENMICHELLE, MG #### [facility] [address] [place] [address] Dr. Emilie Jeronimo EGFR-AF QATARI >60 Normal >=[address] [facility] Comment on above: Performed By: #### R ENMICHELLE, MG #### [facility] [address] [place] [address] Dr. Emilie Jeronimo EGFR-NON AF QATARI >60 Normal >=60 [facility] Comment on above: Performed By: #### R ENMICHELLE, MG #### [facility] [address] [place] [address] Dr. Emilie Jeronimo Glucose [Mass/Vol] 95 mg/dL Normal 74-106 [facility] Comment on above: Performed By: #### R ENMICHELLE, MG #### [facility] [address] [place] [address] Dr. Emilie Jeronimo Phosphate [Mass/Vol] 4.0 mg/dL Normal 2.6-4.7 [facility] Comment on above: Performed By: #### R ENMICHELLE, MG #### [facility] [address] [place] [address] Dr. Emilie Jeronimo Potassium [Moles/Vol] 3.8 mmol/L Normal 3.5-5.1 [facility] Comment on above: Performed By: #### R ENMICHELLE, MG #### [facility] [address] [place] [address] Dr. Emilie Jeronimo Sodium [Moles/Vol] 145 mmol/L Normal 136-145 [facility] Comment on above: Performed By: #### R ENMICHELLE, MG #### [facility] [address] [place] [address] Dr. Emilie Jeronimo Urea nitrogen [Mass/Vol] 17.0 mg/dL Normal 7.0-18.0 [facility] Comment on above: Performed By: #### R ENMICHELLE, MG #### [facility] [address] [place] [address] Dr. Emilie Jeronimo UA RANDOM W/MICROSCOPICon BACTERIA SMALL Abnormal NONE SEEN [facility] Comment on above: Performed By: #### R ENMICHELLE, MG #### [facility] [address] [place] [address] Dr. Emilie Jeronimo Bilirubin Ql (U) Negative Normal NEGATIVE [facility] Comment on above: Performed By: #### R ENAL, MG #### [facility] [address] [place] [address] Dr. Emilie Jeronimo CAST NONE SEEN Normal NONE SEEN [facility] Comment on above: Performed By: #### R ENMICHELLE, MG #### [facility] [address] [place] [address] Dr. Emilie Jeronimo Clarity (U) SL CLOUDY Abnormal CLEAR [facility] Comment on above: Performed By: #### R ENAL, MG #### [facility] [address] [place] [address] Dr. Emilie Jeronimo Color (U) LT. YELLOW Normal YELLOW [facility] Comment on above: Performed By: #### R ENAL, MG #### [facility] [address] [place] [address] [address] Emilie Jeronimo Crystals LM Nom (Urine sed) NONE SEEN Normal NONE SEEN [facility] Comment on above: Performed By: #### R ENAL, MG #### [facility] [address] [place] [address] Dr. Emilie Jeronimo Epithelial cells LM Ql (Urine sed) RARE Normal NONE SEEN /RARE [facility] Comment on above: Performed By: #### R ENAL, MG #### [facility] [address] [place] [address] Dr. Emilie Jeronimo Glucose Ql (U) Negative Normal NEGATIVE [facility] Comment on above: Performed By: #### R ENAL, MG #### [facility] [address] [place] [address] Dr. Emilie Jeronimo Hemoglobin Ql (U) TRACE-INTACT Abnormal NEGATIVE [facility] Comment on above: Performed By: #### R ENAL, MG #### [facility] [address] [place] [address] Dr. Emilie Jeronimo Ketones Ql (U) Negative Normal NEGATIVE [facility] Comment on above: Performed By: #### R ENAL, MG #### [facility] [address] [place] [address] Dr. Emilie Jeronimo LEUKOCYTES LARGE Abnormal NEGATIVE [facility] Comment on above: Performed By: #### R ENAL, MG #### [facility] [address] [place] [address] Dr. Emilie Jeronimo MUCOUS TRACE Abnormal NONE SEEN [facility] Comment on above: Performed By: #### R ENAL, MG #### [facility] [address] [place] [address] Dr. Emilie Jeronimo Nitrite Ql (U) Positive Abnormal NEGATIVE [facility] Comment on above: Performed By: #### R ENAL, MG #### [facility] [address] [place] [address] Dr. Emilie Jeronimo pH (U) 6.5 [pH] Normal 5-9 [facility] Comment on above: Performed By: #### R ENAL, MG #### [facility] [address] [place] [address] Dr. Emilie Jeronimo RBC 2-5 Abnormal 0-2 [facility] Comment on above: Performed By: #### R ENAL, MG #### [facility] [address] [place] [address] Dr. Emilie Jeronimo SPEC GRAVITY 1.020 Normal 1.005-<=1.025 [facility] Comment on above: Performed By: #### R ENAL, MG #### [facility] [address] [place] [address] Dr. Emilie Jeronimo UA PROTEIN TRACE Normal NEGATIVE/ TRACE [facility] Comment on above: Performed By: #### R ENAL, MG #### [facility] [address] [place] [address] Dr. Emilie Jeronimo Urobilinogen Qn (U) 1.0 {Fareed'U}/dL Normal 0.2 - 1. 0 [facility] Comment on above: Performed By: #### R ENAL, MG #### [facility] [address] [place] [address] Dr. Emilie Jeronimo WBC 20-50 Abnormal NONE SEEN [facility] Comment on above: Performed By: #### R ENAL, MG #### [facility] [address] [place] [address] Dr. Emilie Jeronimo VITAMIN D 25 OHon 11-29-2022 VIT D 25-OH 38.1 ng/mL Normal [facility] Comment on above: Performed By: #### R ENAL, MG #### [facility] [address] [place] [address] Dr. Emilie Jeronimo VIT D RANGES SEE BELOW Normal [facility] Comment on above: Result Comment: <20 ng/mL Vit D deficient 20 - <30 ng/mL Vit D insufficient 30 - 100 ng/mL Vit D sufficient >100 ng/mL Potential Toxicity Performed By: #### R MG ZEESHAN #### [facility] [address] [place] [address] Dr. Emilie Jeronimo Ellis 08-02-2022 L ---- Specimen: [id number] Received: 08/02/22 Status: BIANKA Meyer Num: [id number] Spec Type: Surgical Subm Dr: Madhav Conrad MD Tissues: A Gastric Biopsy (GASTRIC BX) Procedures: HE Stain/2, Gross/Micro L4 Age/ Patient Sex Location Account Attending Physician Narciso Velasquez 81/F [id number] Madhav Conrad MD SPEC NUM: [id number] RECD: 08/02/22 STATUS: BIANKA MEYER NUM: [id number] SHERLYN: 08/02/[address] [facility] [address]: Madhav Conrad MD ENTERED: 08/02/22 [facility] DR: SPEC TYPE: Surgical DEPT: S ORDERED: [...] findings support the above pathologic diagnosis. Specimen: [id number] Received: 08/02/22 Status: BIANKA Meyer Num: [id number] Spec Type: Surgical Subm Dr: Madhav Conrad MD Tissues: A Gastric Biopsy (GASTRIC BX) Procedures: HE Stain/2, Gross/Micro L4 Patient: Narciso Velasquez [id number] (Continued) Specimen: [id number] Received: 08/02/22 (Continued) Signed (signature on file) Donita Severino MD 08/04/22 1313 Specimen: [id number] Received: 08/02/22 Status: BIANKA Clary Num: [id number] Spec Type: Surgical Subm Dr: Madhav Conrad MD Tissues: A Gastric Biopsy (GASTRIC BX) Procedures: LYSSA Mcclain/2, Gross/Micro L4 Patient: Jesse Velasquezjohanna Meza [id number] (Continued) Specimen: [id number] Received: 08/02/22 (Continued) CPT Codes 36241 Specimen: [id number] Received: 08/02/22 Status: BIANKA Meyer Num: [id number] Spec Type: Surgical Subm Dr: Madhav Conrad MD Tissues: A Gastric Biopsy (GASTRIC BX) Procedures: HE Stain/2, Gross/Micro L4 Patient: RonNarciso [id number] (Continued) Signed (signature on file) Donita Severino MD 08/04/22 1313 Normal [facility] [facility] [facility] SARS-CoV-2 (COVID-19) RNA GAUDENCIO+probe Ql (Unsp spec) Negative Normal Negative [facility] Comment on above: Order Comment: Healt hcare Worker?: N Result Comment: Testing for SARS-CoV-2 by RT-PCR This test was developed and its performance characteristics determined by [employer] and validated at the [facility]. This test has not been FDA cleared [...] is terminated or revoked sooner. PERFORMED BY: [place] [address] PATHOLOGIST SMALL ENGINE MECHANIC CHELSY MAHMOOD M.D. Performed By: #### C OVID [address] [facility] #### [address] COVID-19 Positive/NegativeOr dered By: Madhav Conrad on 07-29-2022 SARS-CoV-2 (COVID-19) N gene GAUDENCIO+probe Ql (Resp) Negative Negative [facility] Comment on above: Testing for SARS-CoV -2 by RT-PCRThis test was developed and its performance characteristics determined by [employer] ([employer]) and validated at the [facility]. This test has not been FDA cleared [...] 07-11-2022 BASO # 0.1 103/ul Normal 0.0-0.1 [facility] Comment on above: Performed By: #### C BC #### [facility] [address] [place] [address] Dr. Emilie Jeronimo Basophils/100 WBC (Bld) 0.6 % Normal 0.2-2.0 [facility] [facility] Comment on above: Performed By: #### C BC #### [facility] [address] [place] [address] Dr. Emilie Jeronimo EO # 0.2 103/ul Normal 0.0-0.7 [facility] Comment on above: Performed By: #### C BC #### [facility] [address] [place] [address] Dr. Emilie Jeronimo Eosinophils/100 WBC (Bld) 1.9 % Normal 0.9-7.0 [facility] Comment on above: Performed By: #### C BC #### [facility] [address] [place] [address] Dr. Emilie Jeronimo Erythrocyte distribution width (RBC) [Ratio] 13.2 % Normal 11.0-15.0 [facility] Comment on above: Performed By: #### C BC #### [facility] [address] [place] [address] Dr. Emilie Jeronimo Hematocrit (Bld) [Volume fraction] 37.9 % Normal 36.0-48.0 [facility] Comment on above: Performed By: #### C BC #### [facility] [address] [place] [address] Dr. Emilie Jeronimo Hemoglobin (Bld) [Mass/Vol] 12.2 g/dL Normal 12.0-16.0 [facility] Comment on above: Performed By: #### C BC #### [facility] [address] [place] [address] Dr. Emilie Jeronimo IG # 0.03 10e3/ul Normal 0.00-0.03 [facility] Comment on above: Performed By: #### C BC #### [facility] [address] [place] [address] Dr. Emilie Jeronimo IG % 0.4 % Normal 0.0-0.5 [facility] Comment on above: Performed By: #### C BC #### [facility] [address] [place] [address] Dr. Emilie Jeronimo LYMPH # 2.3 103/ul Normal 1.2-3.8 [facility] Comment on above: Performed By: #### C BC #### [facility] [address] [place] [address] Dr. Emilie Jeronimo Lymphocytes/100 WBC (Bld) 29.0 % Normal 20.5-60.0 [facility] Comment on above: Performed By: #### C BC #### [facility] [address] [place] [address] Dr. Emilie Jeronimo MANUAL DIFF REQ NO Normal [facility] Comment on above: Performed By: #### C BC #### [facility] [address] [place] [address] Dr. Emilie Jeronimo MCH (RBC) [Entitic mass] 32.4 pg Normal 26.7-34.0 [facility] Comment on above: Performed By: #### C BC #### [facility] [address] [place] [address] Dr. Emilie Jeronimo MCHC (RBC) [Mass/Vol] 32.2 g/dL Normal 29.9-35.2 [facility] Comment on above: Performed By: #### C BC #### [facility] [address] [address] [address] Emilie Jeronimo MCV (RBC) [Entitic vol] 100.5 fL Critically high 81.0-99.0 [facility] Comment on above: Performed By: #### C BC #### [facility] [address] [address] [address] Emilie Jeronimo MONO # 0.6 103/ul Normal 0.3-0.8 [facility] Comment on above: Performed By: #### C BC #### [facility] [address] [address] [address] Emilie Jeronimo Monocytes/100 WBC (Bld) 7.9 % Normal 1.7-12.0 [facility] Comment on above: Performed By: #### C BC #### [facility] [address] [address] [address] Emilie Jeronimo NEUT # 4.7 103/ul Normal 1.4-6.5 [facility] Comment on above: Performed By: #### C BC #### [facility] [address] [address] [address] Emilie Jeronimo Neutrophils/100 WBC (Bld) 60.2 % Normal 43.0-75.0 [facility] Comment on above: Performed By: #### C BC #### [facility] [address] [address] [address] Emilie Jeronimo Platelet mean volume (Bld) [Entitic vol] 10.0 fL Normal 9.5-13.5 [facility] Comment on above: Performed By: #### C BC #### [facility] [address] [address] [address] Emilie Jeronimo PLT 234 103/ul Normal 150-450 [facility] Comment on above: Performed By: #### C BC #### [facility] [address] [address] [address] Emilie Jeronimo RBC 3.77 106/ul Critically low 4.20-5.40 [facility] Comment on above: Performed By: #### C BC #### [facility] [address] [place] [address] Dr. Emilie Jeronimo WBC 7.8 103/ul Normal 4.0-11.0 [facility] Comment on above: Performed By: #### C BC #### [facility] [address] [place] [address] Dr. Emilie Jeronimo FREE T4on 07-11-2022 Free T4 [Mass/Vol] 0.79 ng/dL Normal 0.76-1.46 [facility] Comment on above: Performed By: #### R ENAL, MG #### [facility] [address] [place] [address] Dr. Emilie Jeronimo PROF 14(COMP METB)on 022 Albumin [Mass/Vol] 3.7 g/dL Normal 3.4-5.0 [facility] Comment on above: Performed By: #### R ENAL, MG #### [facility] [address] [place] [address] Dr. Emilie Jeronimo Albumin/Globulin [Mass ratio] 1.2 {ratio} Normal [facility] Comment on above: Performed By: #### R ENAL, MG #### [facility] [address] [place] [address] Dr. Emilie Jeronimo ALP [Catalytic activity/Vol] 53 U/L Normal 46-116 [facility] Comment on above: Performed By: #### R ENAL, MG #### [facility] [address] [place] [address] Dr. Emilie Jeronimo ALT [Catalytic activity/Vol] 26 U/L Normal 14-59 [facility] Comment on above: Performed By: #### R ENAL, MG #### [facility] [address] [place] [address] Dr. Emilie Jeronimo Anion gap [Moles/Vol] 8.9 mmol/L Normal [facility] Comment on above: Performed By: #### R ENAL, MG #### [facility] [address] [place] [address] Dr. Emilie Jeronimo AST [Catalytic activity/Vol] 18 U/L Normal 15-37 [facility] Comment on above: Performed By: #### R ENAL, MG #### [facility] [address] [place] [address] Dr. Emilie Jeronimo Bilirubin [Mass/Vol] 0.3 mg/dL Normal 0.2-1.0 [facility] Comment on above: Performed By: #### R ENAL, MG #### [facility] [address] [place] [address] Dr. Emilie Jeronimo Calcium [Mass/Vol] 9.1 mg/dL Normal 8.5-10.1 [facility] Comment on above: Performed By: #### R ENAL, MG #### [facility] [address] [place] [address] Dr. Emilie Jeronimo Chloride [Moles/Vol] 104 mmol/L Normal 98-107 [facility] Comment on above: Performed By: #### R ENAL, MG #### [facility] [address] [place] [address] Dr. Emilie Jeronimo CO2 [Moles/Vol] 34.8 mmol/L Critically high 21.0-32.0 [facility] Comment on above: Performed By: #### R ENAL, MG #### [facility] [address] [place] [address] Dr. Emilie Jeronimo Creatinine [Mass/Vol] 0.73 mg/dL Normal 0.55-1.02 [facility] Comment on above: Performed By: #### R ENAL, MG #### [facility] [address] [place] [address] Dr. Emilie Jeronimo EGFR-AF QATARI >60 Normal >=[address] [facility] Comment on above: Performed By: #### R ENAL, MG #### [facility] [address] [place] [address] Dr. Emilie Jeronimo EGFR-NON AF QATARI >60 Normal >=60 [facility] Comment on above: Performed By: #### R ENAL, MG #### [facility] [address] [place] [address] Dr. Emilie Jeronimo Globulin (S) [Mass/Vol] 3.2 g/dL Normal [facility] Comment on above: Performed By: #### R ENAL, MG #### [facility] [address] [place] [address] Dr. Emilie Jeronimo Glucose [Mass/Vol] 109 mg/dL Critically high 74-106 [facility] Comment on above: Performed By: #### R ENAL, MG #### [facility] [address] [place] [address] Dr. Emilie Jeronimo Potassium [Moles/Vol] 3.7 mmol/L Normal 3.5-5.1 [facility] Comment on above: Performed By: #### R ENAL, MG #### [facility] [address] [place] [address] Dr. Emilie Jeronimo Protein [Mass/Vol] 6.9 g/dL Normal 6.4-8.2 [facility] Comment on above: Performed By: #### R ENAL, MG #### [facility] [address] [place] [address] Dr. Emilie Jeronimo Sodium [Moles/Vol] 144 mmol/L Normal 136-145 [facility] Comment on above: Performed By: #### R ENAL, MG #### [facility] [address] [place] [address] Dr. Emilie Jeronimo Urea nitrogen [Mass/Vol] 20.0 mg/dL Critically high 7.0-18.0 [facility] Comment on above: Performed By: #### R ENAL, MG #### [facility] [address] [place] [address] Dr. Emilie Jeronimo Urea nitrogen/Creatinine [Mass ratio] 27.4 mg/mg Normal [facility] Comment on above: Performed By: #### R ENAL, MG #### [facility] [address] [place] [address] Dr. Emilie Jeronimo TSHon 07-11-2022 TSH 3.616 uIU/mL Normal 0.358-3.740 [facility] Comment on above: Performed By: #### R ENAL, MG #### [facility] [address] [place] [address] Dr. Emilie Jeronimo VITAMIN B12on 07-11-2022 Cobalamin (Vitamin B12) [Mass/Vol] 321.0 pg/mL Normal 193.0-986.0 [facility] Comment on above: Performed By: #### R ZEESHAN, MG #### [facility] [address] [place] [address] Dr. Emilie Jeronimo Tobacco Screening.on 022 Fall risk assessment a) No falls within the last year -[facility] [address] DO Work Phone: Tobacco use status CPHS b) No -[facility] [address] DO Work Phone: CBC AUTO DIFFon 06-15-2022 BASO # 0.0 103/ul Normal 0.0-0.1 [facility] Comment on above: Performed By: #### C BC #### [facility] [address] [place] [address] Dr. Emilie Jeronimo Basophils/100 WBC (Bld) 0.4 % Normal 0.2-2.0 [facility] Comment on above: Performed By: #### C BC #### [facility] [address] [place] [address] Dr. Emilie Jeronimo EO # 0.2 103/ul Normal 0.0-0.7 [facility] Comment on above: Performed By: #### C BC #### [facility] [address] [place] [address] Dr. Emilie Jeronimo Eosinophils/100 WBC (Bld) 2.4 % Normal 0.9-7.0 [facility] Comment on above: Performed By: #### C BC #### [facility] [address] [place] [address] Dr. Emilie Jeronimo Erythrocyte distribution width (RBC) [Ratio] 12.8 % Normal 11.0-15.0 [facility] Comment on above: Performed By: #### C BC #### [facility] [address] [place] [address] Dr. Emilie Jeronimo Hematocrit (Bld) [Volume fraction] 38.3 % Normal 36.0-48.0 [facility] Comment on above: Performed By: #### C BC #### [facility] [address] [place] [address] Dr. Emilie Jeronimo Hemoglobin (Bld) [Mass/Vol] 12.5 g/dL Normal 12.0-16.0 [facility] Comment on above: Performed By: #### C BC #### [facility] [address] [place] [address] Dr. Emilie Jeronimo IG # 0.04 10e3/ul Critically high 0.00-0.03 [facility] Comment on above: Performed By: #### C BC #### [facility] [address] [place] [address] Dr. Emilie Jeronimo IG % 0.6 % Critically high 0.0-0.5 [facility] Comment on above: Performed By: #### C BC #### [facility] [address] [place] [address] Dr. Emilie Jeronimo LYMPH # 1.9 103/ul Normal 1.2-3.8 [facility] Comment on above: Performed By: #### C BC #### [facility] [address] [place] [address] Dr. Emilie Jeronimo Lymphocytes/100 WBC (Bld) 27.9 % Normal 20.5-60.0 [facility] Comment on above: Performed By: #### C BC #### [facility] [address] [place] [address] Dr. Emilie Jeronimo MANUAL DIFF REQ NO Normal [facility] Comment on above: Performed By: #### C BC #### [facility] [address] [place] [address] Dr. Emilie Jeronimo MCH (RBC) [Entitic mass] 32.2 pg Normal 26.7-34.0 [facility] Comment on above: Performed By: #### C BC #### [facility] [address] [place] [address] Dr. Emilie Jeronimo MCHC (RBC) [Mass/Vol] 32.6 g/dL Normal 29.9-35.2 [facility] Comment on above: Performed By: #### C BC #### [facility] [address] [address] [address] Emilie Jeronimo MCV (RBC) [Entitic vol] 98.7 fL Normal 81.0-99.0 [facility] Comment on above: Performed By: #### C BC #### [facility] [address] [address] [address] Emilie Jeronimo MONO # 0.5 103/ul Normal 0.3-0.8 [facility] Comment on above: Performed By: #### C BC #### [facility] [address] [address] [address] Emilie Jeronimo Monocytes/100 WBC (Bld) 7.3 % Normal 1.7-12.0 [facility] Comment on above: Performed By: #### C BC #### [facility] [address] [address] [address] Emilie Jeronimo NEUT # 4.1 103/ul Normal 1.4-6.5 [facility] Comment on above: Performed By: #### C BC #### [facility] [address] [address] [address] Emilie Jeronimo Neutrophils/100 WBC (Bld) 61.4 % Normal 43.0-75.0 [facility] Comment on above: Performed By: #### C BC #### [facility] [address] [address] [address] Emilie Jeronimo Platelet mean volume (Bld) [Entitic vol] 9.2 fL Critically low 9.5-13.5 [facility] Comment on above: Performed By: #### C BC #### [facility] [address] [address] [address] Emilie Jeronimo PLT 201 103/ul Normal 150-450 [facility] Comment on above: Performed By: #### C BC #### [facility] [address] [address] [address] Emilie Jeronimo RBC 3.88 106/ul Critically low 4.20-5.40 [facility] Comment on above: Performed By: #### C BC #### [facility] [address] [address] [address] Emilie Jeronimo WBC 6.7 103/ul Normal 4.0-11.0 [facility] Comment on above: Performed By: #### C BC #### [facility] [address] [address] [address] Emilie Jeronimo LIPID PROFILEon 06-15-2022 CHOL-HDL RATIO NORM SEE BELOW Normal [facility] Comment on above: Result Comment: 3.3 - 4.4 LOW RISK 4.4 - 7.1 AVERAGE RISK 7.1 - 11.0 MODERATE RISK >11.0 HIGH RISK Performed By: #### A ST, ALT, LIPID, BMP #### [facility] [address] [address] [address] Emilie Jeronimo Cholesterol [Mass/Vol] 124 mg/dL Normal <=200 [facility] Comment on above: Performed By: #### A ST, ALT, LIPID, BMP #### [facility] [address] [address] [address] Emilie Jeronimo Cholesterol in HDL [Mass/Vol] 81 mg/dL Critically high 40-60 [facility] Comment on above: Performed By: #### A ST, ALT, LIPID, BMP #### [facility] [address] [address] [address] Emilie Jeronimo Cholesterol in LDL [Mass/Vol] 27.6 mg/dL Normal [facility] Comment on above: Performed By: #### A ST, ALT, LIPID, BMP #### [facility] [address] [address] [address] Emilie Jeronimo Cholesterol.total/C holesterol in HDL [Mass ratio] 1.5 {ratio} Normal [facility] Comment on above: Performed By: #### A ST, ALT, LIPID, BMP #### [facility] [address] [address] [address] Emilie Jeronimo HDL NORMAL > or = 60 mg/dl - LO W CARDIOVASCULAR RISK <40 mg/dl - HIGH CARDIOVASCULAR RISK Normal [facility] Comment on above: Performed By: #### A ST, ALT, LIPID, BMP #### [facility] [address] [place] [address] Dr. Emilie Jeronimo LDL CALC NORMAL SEE BELOW Normal [facility] Comment on above: Result Comment: <100 mg/dl OPTIMAL 100 - 129 mg/dl NEAR OR ABOVE OPTIMAL 130 - 159 mg/dl BORDERLINE HIGH 160 - 189 mg/dl HIGH >190 mg/dl VERY HIGH Performed By: #### A ST, ALT, LIPID, BMP #### [facility] [address] [address] [address] Emilie Jeronimo Triglyceride [Mass/Vol] 77 mg/dL Normal <=150 [facility] Comment on above: Performed By: #### A ST, ALT, LIPID, BMP #### [facility] [address] [place] [address] Dr. Emilie Jeronimo VLDL CALC 15.4 mg/dL Normal [facility] Comment on above: Performed By: #### A ST, ALT, LIPID, BMP #### [facility] [address] [place] [address] Dr. Emilie Jeronimo PROF CHEM 8 (BAS METB)on Anion gap [Moles/Vol] 12.7 mmol/L Normal [facility] Comment on above: Performed By: #### A ST, ALT, LIPID, BMP #### [facility] [address] [place] [address] Dr. Emilie Jeronimo Calcium [Mass/Vol] 8.5 mg/dL Normal 8.5-10.1 [facility] Comment on above: Performed By: #### A ST, ALT, LIPID, BMP #### [facility] [address] [place] [address] Dr. Emilie Jeronimo Chloride [Moles/Vol] 102 mmol/L Normal 98-107 [facility] Comment on above: Performed By: #### A ST, ALT, LIPID, BMP #### [facility] [address] [place] [address] Dr. Emilie Jeronimo CO2 [Moles/Vol] 30.1 mmol/L Normal 21.0-32.0 [facility] Comment on above: Performed By: #### A ST, ALT, LIPID, BMP #### [facility] [address] [address] [address] Emilie Jeronimo Creatinine [Mass/Vol] 0.76 mg/dL Normal 0.55-1.02 [facility] Comment on above: Performed By: #### A ST, ALT, LIPID, BMP #### [facility] [address] [address] [address] Emilie Jeronimo EGFR-AF QATARI >60 Normal >=[address] [facility] Comment on above: Performed By: #### A ST, ALT, LIPID, BMP #### [facility] [address] [address] [address] Emilie Jeronimo EGFR-NON AF QATARI >60 Normal >=60 [facility] Comment on above: Performed By: #### A ST, ALT, LIPID, BMP #### [facility] [address] [address] [address] Emilie Jeronimo Glucose [Mass/Vol] 97 mg/dL Normal 74-106 [facility] Comment on above: Performed By: #### A ST, ALT, LIPID, BMP #### [facility] [address] [address] [address] Emilie Jeronimo Potassium [Moles/Vol] 3.8 mmol/L Normal 3.5-5.1 [facility] Comment on above: Performed By: #### A ST, ALT, LIPID, BMP #### [facility] [address] [address] [address] Emilie Jeronimo Sodium [Moles/Vol] 141 mmol/L Normal 136-145 [facility] Comment on above: Performed By: #### A ST, ALT, LIPID, BMP #### [facility] [address] [address] [address] Emilie Jeronimo Urea nitrogen [Mass/Vol] 21.0 mg/dL Critically high 7.0-18.0 [facility] Comment on above: Performed By: #### A ST, ALT, LIPID, BMP #### [facility] [address] [address] [address] Emilie Jeronimo Urea nitrogen/Creatinine [Mass ratio] 27.6 mg/mg Normal [facility] Comment on above: Performed By: #### A ST, ALT, LIPID, BMP #### [facility] [address] [address] [address] Emilie Jeronimo SGOTon 06-15-2022 AST [Catalytic activity/Vol] 22 U/L Normal 15-37 [facility] Comment on above: Performed By: #### A ST, ALT, LIPID, BMP #### [facility] [address] [address] [address] Emilie Jeronimo SGPTon 06-15-2022 ALT [Catalytic activity/Vol] 21 U/L Normal 14-59 [facility] Comment on above: Performed By: #### A ST, ALT, LIPID, BMP #### [facility] [address] ABD/PELVIS WO CONon [...] JAYLEEN GREER Date: 2022-04-21 10:40 Normal [facility] PTH INTACTon 03-24-2022 PTH, Intact 4 pg/mL Critically low 15-65 [facility] Comment on above: Performed By: #### P THINT #### [facility] [address] [address] [address] Emilie Jeronimo CBC AUTO DIFFon 03-23-2022 BASO # 0.0 103/ul Normal 0.0-0.1 [facility] Comment on above: Performed By: #### R ZEESHAN, MG #### [facility] [address] [place] [address] Dr. Emilie Jeronimo Basophils/100 WBC (Bld) 0.5 % Normal 0.2-2.0 [facility] Comment on above: Performed By: #### R ENMICHELLE, MG #### [facility] [address] [address] [address] Emilie Jeronimo EO # 0.1 103/ul Normal 0.0-0.7 [facility] Comment on above: Performed By: #### R ENAL, MG #### [facility] [address] [place] [address] Dr. Emilie Jeronimo Eosinophils/100 WBC (Bld) 1.3 % Normal 0.9-7.0 [facility] Comment on above: Performed By: #### R ENAL, MG #### [facility] [address] [address] [address] Emilie Jeronimo Erythrocyte distribution width (RBC) [Ratio] 13.0 % Normal 11.0-15.0 [facility] Comment on above: Performed By: #### R ENMICHELLE, MG #### [facility] [address] [place] [address] Dr. Emilie Jeronimo Hematocrit (Bld) [Volume fraction] 34.2 % Critically low 36.0-48.0 [facility] Comment on above: Performed By: #### R ENAL, MG #### [facility] [address] [address] [address] Emilie Jeronimo Hemoglobin (Bld) [Mass/Vol] 11.3 g/dL Critically low 12.0-16.0 [facility] Comment on above: Performed By: #### R ENAL, MG #### [facility] [address] [address] [address] Emilie Jeronimo IG # 0.02 10e3/ul Normal 0.00-0.03 [facility] Comment on above: Performed By: #### R ENAL, MG #### [facility] [address] [address] [address] Emilie Jeronimo IG % 0.3 % Normal 0.0-0.5 [facility] Comment on above: Performed By: #### R ENAL, MG #### [facility] [address] [place] [address] Dr. Emilie Jeronimo LYMPH # 1.4 103/ul Normal 1.2-3.8 [facility] Comment on above: Performed By: #### R ENAL, MG #### [facility] [address] [place] [address] Dr. Emilie Jeronimo Lymphocytes/100 WBC (Bld) 24.0 % Normal 20.5-60.0 [facility] Comment on above: Performed By: #### R ENAL, MG #### [facility] [address] [place] [address] Dr. Emilie Jeronimo MANUAL DIFF REQ NO Normal [facility] Comment on above: Performed By: #### R ENAL, MG #### [facility] [address] [address] [address] Emilie Jeronimo MCH (RBC) [Entitic mass] 32.5 pg Normal 26.7-34.0 [facility] Comment on above: Performed By: #### R ENAL, MG #### [facility] [address] [place] [address] Dr. Emilie Jeronimo MCHC (RBC) [Mass/Vol] 33.0 g/dL Normal 29.9-35.2 [facility] Comment on above: Performed By: #### R ENAL, MG #### [facility] [address] [place] [address] Dr. Emilie Jeronimo MCV (RBC) [Entitic vol] 98.3 fL Normal 81.0-99.0 [facility] Comment on above: Performed By: #### R ENAL, MG #### [facility] [address] [place] [address] Dr. Emilie Jeronimo MONO # 0.5 103/ul Normal 0.3-0.8 [facility] Comment on above: Performed By: #### R ENAL, MG #### [facility] [address] [place] [address] Dr. Emilie Jeronimo Monocytes/100 WBC (Bld) 8.7 % Normal 1.7-12.0 [facility] Comment on above: Performed By: #### R ENAL, MG #### [facility] [address] [place] [address] Dr. Emilie Jeronimo NEUT # 3.9 103/ul Normal 1.4-6.5 [facility] Comment on above: Performed By: #### R ENAL, MG #### [facility] [address] [place] [address] Dr. Emilie Jeronimo Neutrophils/100 WBC (Bld) 65.2 % Normal 43.0-75.0 [facility] Comment on above: Performed By: #### R ENAL, MG #### [facility] [address] [place] [address] Dr. Emilie Jeronimo Platelet mean volume (Bld) [Entitic vol] 10.0 fL Normal 9.5-13.5 [facility] Comment on above: Performed By: #### R ENAL, MG #### [facility] [address] [place] [address] Dr. Emilie Jeronimo PLT 197 103/ul Normal 150-450 [facility] Comment on above: Performed By: #### R ENAL, MG #### [facility] [address] [place] [address] Dr. Emilie Jeronimo RBC 3.48 106/ul Critically low 4.20-5.40 [facility] Comment on above: Performed By: #### R ENAL, MG #### [facility] [address] [place] [address] Dr. Emilie Jeronimo WBC 6.0 103/ul Normal 4.0-11.0 [facility] Comment on above: Performed By: #### R ENMICHELLE, MG #### [facility] [address] [place] [address] Dr. Emilie Jeronimo PROF CHEM 8 (BAS METB)on Anion gap [Moles/Vol] 10.3 mmol/L Normal [facility] Comment on above: Performed By: #### R ENMICHELLE, MG #### [facility] [address] [place] [address] Dr. Emilie Jeronimo Calcium [Mass/Vol] 6.1 mg/dL Critically low 8.5-10.1 [facility] Comment on above: Performed By: #### R ENMICHELLE, MG #### [facility] [address] [place] [address] Dr. Emilie Jeronimo Chloride [Moles/Vol] 103 mmol/L Normal 98-107 [facility] Comment on above: Performed By: #### R ENMICHELLE, MG #### [facility] [address] [place] [address] Dr. Emilie Jeronimo CO2 [Moles/Vol] 31.8 mmol/L Normal 21.0-32.[address] [facility] Comment on above: Performed By: #### R ENMICHELLE, MG #### [facility] [address] [place] [address] Dr. Emilie Jeronimo Creatinine [Mass/Vol] 0.70 mg/dL Normal 0.55-1.02 [facility] Comment on above: Performed By: #### R ENMICHELLE, MG #### [facility] [address] [place] [address] Dr. Emilie Jeronimo EGFR-AF QATARI >60 Normal >=[address] [facility] Comment on above: Performed By: #### R ENMICHELLE, MG #### [facility] [address] [place], [place] [id number] Dr. Emilie Jeronimo EGFR-NON AF QATARI >60 Normal >=60 [facility] Comment on above: Performed By: #### R ZEESHAN, MG #### [facility] [address] [place] [address] Dr. Emilie Jeronimo Glucose [Mass/Vol] 120 mg/dL Critically high 74-106 [facility] Comment on above: Performed By: #### R ENMICHELLE, MG #### [facility] [address] [place] [address] Dr. Emilie Jeronimo Potassium [Moles/Vol] 3.1 mmol/L Critically low 3.5-5.1 [facility] Comment on above: Performed By: #### R ENMICHELLE, MG #### [facility] [address] [place] [address] Dr. Emilie Jeronimo Sodium [Moles/Vol] 142 mmol/L Normal 136-145 [facility] Comment on above: Performed By: #### R ZEESHAN, MG #### [facility] [address] [place] [address] Dr. Emilie Jeronimo Urea nitrogen [Mass/Vol] 21.0 mg/dL Critically high 7.0-18.0 [facility] Comment on above: Performed By: #### R ZEESHAN, MG #### [facility] [address] [place] [address] Dr. Emilie Jeronimo Urea nitrogen/Creatinine [Mass ratio] 30.0 mg/mg Normal [facility] Comment on above: Performed By: #### R ZEESHAN, MG #### [facility] [address] [place] [address] Dr. Emilie Jeronimo MAGNESIUMon 03-22-2022 Magnesium [Mass/Vol] 1.5 mg/dL Critically low 1.8-2.4 [facility] Comment on above: Performed By: #### R ZEESHAN, MG #### [facility] [address] [place] [address] Dr. Emilie Jeronimo RENAL FUNCTION PANELon 03-22 Albumin [Mass/Vol] 3.6 g/dL Normal 3.4-5.0 [facility] Comment on above: Performed By: #### R ENAL, MG #### [facility] [address] [address] [address] Emilie Jeronimo Calcium [Mass/Vol] 6.4 mg/dL Critically low 8.5-10.1 [facility] Comment on above: Performed By: #### R ENAL, MG #### [facility] [address] [address] [address] Emilie Jeronimo Chloride [Moles/Vol] 101 mmol/L Normal 98-107 [facility] Comment on above: Performed By: #### R ENAL, MG #### [facility] [address] [place] [address] Dr. Emilie Jeronimo CO2 [Moles/Vol] 31.4 mmol/L Normal 21.0-32.0 [facility] Comment on above: Performed By: #### R ENAL, MG #### [facility] [address] [place] [address] Dr. Emilie Jeronimo Creatinine [Mass/Vol] 0.77 mg/dL Normal 0.55-1.02 [facility] Comment on above: Performed By: #### R ENAL, MG #### [facility] [address] [place] [address] Dr. Emilie Jeronimo EGFR-AF QATARI >60 Normal >=60 [facility] Comment on above: Performed By: #### R ENAL, MG #### [facility] [address] [place] [address] Dr. Emilie Jeronimo EGFR-NON AF QATARI >60 Normal >=60 [facility] Comment on above: Performed By: #### R ENAL, MG #### [facility] [address] [place] [address] Dr. Emilie Jeronimo Glucose [Mass/Vol] 150 mg/dL Critically high 74-106 [facility] Comment on above: Performed By: #### R ENAL, MG #### [facility] [address] [place] [address] Dr. Emilie Jeronimo Phosphate [Mass/Vol] 4.8 mg/dL Critically high 2.6-4.7 [facility] Comment on above: Performed By: #### R ENAL, MG #### [facility] [address] [address] [address] Emilie Jeronimo Potassium [Moles/Vol] 2.7 mmol/L Critically low 3.5-5.1 [facility] Comment on above: Result Comment: TEST REPEATED CRITICAL VALUE VERIFIED Performed By: #### R ZEESHAN, MG #### [facility] [address] [place] [address] Dr. Emilie Jeronimo Sodium [Moles/Vol] 142 mmol/L Normal 136-145 [facility] Comment on above: Performed By: #### R ZEESHAN, MG #### [facility] [address] [place] [address] Dr. Emilie Jeronimo Urea nitrogen [Mass/Vol] 29.0 mg/dL Critically high 7.0-18.0 [facility] Comment on above: Performed By: #### R ZEESHAN, MG #### [facility] [address] [place] [address] Dr. Emilie Jeronimo VITAMIN D 25 OHon 03-22-2022 VIT D 25-OH 32.5 ng/mL Normal [facility] Comment on above: Performed By: #### V ITAD #### [facility] [address] [place] [address] Dr. Emilie Jeronimo VIT D RANGES SEE BELOW Normal [facility] Comment on above: Result Comment: <20 ng/mL Vit D deficient 20 - <30 ng/mL Vit D insufficient 30 - 100 ng/mL Vit D sufficient >100 ng/mL Potential Toxicity Performed By: #### V ITAD #### [facility] [address] [place] [address] Dr. Emilie Jeronimo Tobacco Screening.on 022 Adult depression screening assessment No [facility] DO Work Phone: Fall risk assessment a) No falls within the last year [facility] DO Work Phone: Tobacco use status CP b) No [facility] 250 DO Work Phone: Automated erythrocytes count in urine sediment (number/area)on 02-17-2021 RBC Auto (Urine sed) [#/Area] 0-1 [HPF] [facility] Automated leukocytes count i n urine sediment (number/area)on 02-17-2021 WBC Auto (Urine sed) [#/Area] 20-49 [HPF] [facility] Basophils Auto (Bld) [#/Vol] on 02-17-2021 Basophils (Bld) [#/Vol] 0.1 10*3/uL 0.0-0.2 [facility] Basophils/100 WBC Auto (Bld) on 02-17-2021 Basophils/100 WBC (Bld) 0.8 % [facility] Bilirubin Test strip Ql (U)o n 02-17-2021 Bilirubin Ql (U) Negative Negative [facility] Blood hemoglobin measurement (mass/volume)on 02-17-2021 Hemoglobin (Bld) [Mass/Vol] 12.6 g/dL 11.8-15.4 [facility] Blood leukocytes automated c ount (number/volume)on 02-17-2021 WBC (Bld) [#/Vol] 7.3 10*3/uL 4.5-11.0 [facility] Color Auto (U)on 02-17-2021 Color (U) Yellow Yellow [facility] Creatinine and Glomerular fi ltration rate.predicted panel (S/P/Bld)on 02-17-2021 Creatinine [Mass/Vol] 0.78 mg/dL 0.44-1.03 [facility] Eosinophils Auto (Bld) [#/Vo l]on 02-17-2021 Eosinophils (Bld) [#/Vol] 0.2 10*3/uL 0.0-0.45 [facility] Eosinophils/100 WBC Auto (Bl d)on 02-17-2021 Eosinophils/100 WBC (Bld) 2.2 % [facility] Erythrocyte distribution wid th Auto (RBC) [Ratio]on 02-17-2021 Erythrocyte distribution width (RBC) [Ratio] 14.5 % 11.9-15.3 [facility] Estimated glomerular filtrat ion rate (GFR) non- Americanon 02-17-2021 GFR/1.73 sq M.predicted among non-blacks MDRD (S/P/Bld) [Vol rate/Area] > 60 mL/Min [facility] Hematocrit Auto (Bld) [Volum e fraction]on 02-17-2021 Hematocrit (Bld) [Volume fraction] 37.5 % 34.0-46.4 [facility] Ketones Auto test strip (U) [Mass/Vol]on 02-17-2021 Ketones (U) [Mass/Vol] Negative Negative [facility] Laboratory - Hematology and Cell countson 02-17-2021 Nucleated RBC/100 WBC (Bld) [Ratio] 0.0 % 0-0.5 [facility] Laboratory - Urinalysison Hyaline casts LM Ql (Urine sed) 0-8 [LPF] [facility] Lymphocytes Auto (Bld) [#/Vo l]on 02-17-2021 Lymphocytes (Bld) [#/Vol] 1.6 10*3/uL 1.00-4.8 [facility] Lymphocytes/100 WBC Auto (Bl d)on 02-17-2021 Lymphocytes/100 WBC (Bld) 21.5 % [facility] MCH Auto (RBC) [Entitic mass ]on 02-17-2021 MCH (RBC) [Entitic mass] 32.4 pg 24.7-34.3 [facility] MCHC Auto (RBC) [Mass/Vol]on 02-17-2021 MCHC (RBC) [Mass/Vol] 33.6 g/dL 32.0-35.0 [facility] MCV Auto (RBC) [Entitic vol] on 02-17-2021 MCV (RBC) [Entitic vol] 96.3 fL 80-100 [facility] Monocytes Auto (Bld) [#/Vol] on 02-17-2021 Monocytes (Bld) [#/Vol] 0.7 10*3/uL 0.0-0.8 [facility] Monocytes/100 WBC Auto (Bld) on 02-17-2021 Monocytes/100 WBC (Bld) 9.6 % [facility] Neutrophils Auto (Bld) [#/Vo l]on 02-17-2021 Neutrophils (Bld) [#/Vol] 4.8 10*3/uL 1.8-7.7 [facility] Neutrophils/100 WBC Auto (Bl d)on 02-17-2021 Neutrophils/100 WBC (Bld) 65.9 % [facility] Nitrite Test strip Ql (U)on 02-17-2021 Nitrite Ql (U) Negative Negative [facility] No Panel Informationon 02-17 Estimated GFR () > 60 mL/Min [facility] Comment on above: GFR estimated refere nce range: According to KDOQI guidelines, <60 ml/min/1.73m2 is sufficient to diagnose a patient with chronic kidney disease. Pharmacy Creatinine Clearance (Chem N/A [facility] Platelet mean volume Auto (B ld) [Entitic vol]on 02-17-2021 Platelet mean volume (Bld) [Entitic vol] 7.6 fL 6.3-10.7 [facility] Platelets Auto (Bld) [#/Vol] on 02-17-2021 Platelets (Bld) [#/Vol] 206 10*3/uL 150-450 [facility] Protein Auto test strip (U) [Mass/Vol]on 02-17-2021 Protein (U) [Mass/Vol] Negative Negative [facility] RBC Auto (Bld) [#/Vol]on RBC (Bld) [#/Vol] 3.89 10*6/uL 3.60-5.00 [facility] Serum or plasma calcium twan urement (mass/volume)on 02-17-2021 Calcium [Mass/Vol] 7.6 mg/dL 8.2-10.2 [facility] Serum or plasma chloride jewel surement (moles/volume)on 02-17-2021 Chloride [Moles/Vol] 100 mmol/L 95-114 [facility] Serum or plasma glucose twan urement (mass/volume)on 02-17-2021 Glucose [Mass/Vol] 97 mg/dL 70-100 [facility] Comment on above: ADA recommended refe rence rangeRandom Glucose Reference Range is dependent on time and content of last meal. Glucose of more than 200 mg/dL in a nonstressed, ambulatory subject supports the diagnosis of Diabetes Mellitus. Serum or plasma potassium me asurement (moles/volume)on 02-17-2021 Potassium [Moles/Vol] 3.8 mmol/L 3.5-5.1 [facility] Serum or plasma sodium measu rement (moles/volume)on 02-17-2021 Sodium [Moles/Vol] 139 mmol/L 136-146 [facility] Serum or plasma total carbon dioxide measurement (moles/volume)on 02-17-2021 CO2 [Moles/Vol] 28.3 mmol/L 22.0-30.0 [facility] Serum or plasma urea nitroge n measurement (mass/volume)on 02-17-2021 Urea nitrogen [Mass/Vol] 22 mg/dL 9-23 [facility] Specific gravity Auto test s trip (U) [Rel density]on 02-17-2021 Specific gravity (U) [Rel density] 1.021 1.001-1.030 [facility] Squamous epithelial cells de tection in urine sediment by light microscopyon 02-17-2021 Epithelial cells.squamous LM Ql (Urine sed) 0-1 [HPF] [facility] Urine bacteria detection by automated methodon 02-17-2021 Bacteria Auto Ql (U) 2+ None Seen [facility] Urine clarity by refractomet ry automatedon 02-17-2021 Clarity Refractometry automated (U) Clear Clear [facility] Urine culture routineon 01-29 Bacteria identified Cx Nom (U) Aerococcus urinae [facility] Urine glucose measurement by automated test strip (mass/volume)on 02-17-2021 Glucose Auto test strip (U) [Mass/Vol] Normal mg/dL Normal [facility] Urine hemoglobin detection b y automated test stripon 02-17-2021 Hemoglobin Auto test strip Ql (U) Negative Negative [facility] Urine leukocyte esterase det ection by automated test stripon 02-17-2021 Leukocyte esterase Auto test strip Ql (U) 3+ Negative [facility] Urobilinogen Auto test strip (U) [Mass/Vol]on 02-17-2021 Urobilinogen (U) [Mass/Vol] Normal mg/dL Normal [facility] Yeast detection in urine sed iment by light microscopyon 02-17-2021 Yeast LM Ql (Urine sed) None seen [HPF] None Seen [facility] pH Auto test strip (U)on pH (U) 5.0 [pH] 5.0-9.0 [facility] Cesar 03-12-2020 ALT [Catalytic activity/Vol] 16 U/L Normal 7 - 45 [facility] Comment on above: Result Comment: Josee ents treated with Sulfasalazine may generate falsely decreased results for ALT. Performed By: #### A LT #### [address] [address] Jamari 03-12-2020 AST [Catalytic activity/Vol] 22 U/L Normal 9 - 39 [facility] Comment on above: Performed By: #### A ST #### [address] [address] CREATININEon 03-12-2020 Creatinine [Mass/Vol] mg/dL Normal >60 [facility] Comment on above: Result Comment: CALC ULATIONS OF ESTIMATED GFR ARE PERFORMED USING THE MDRD STUDY EQUATION FOR THE IDMS-TRACEABLE CREATININE METHODS. CLIN CHEM 2007;53:766-72 Performed By: #### C REAT #### [address] [address] Creatinine [Mass/Vol] 0.84 mg/dL Normal 0.50 - 1.05 [facility] Comment on above: Performed By: #### C REAT #### [address] [address] ELECTROLYTE PANELon 03-12-20 20 Anion gap [Moles/Vol] 15 mmol/L Normal 10 - 20 [facility] Comment on above: Performed By: #### E LECT #### [address] [address] Chloride [Moles/Vol] 102 mmol/L Normal 98 - 107 [facility] Comment on above: Performed By: #### E LECT #### [address] [address] HCO3 (Bld) [Moles/Vol] 30 mmol/L Normal 21 - 32 [facility] Comment on above: Performed By: #### E LECT #### [address] [address] Potassium [Moles/Vol] 4.0 mmol/L Normal 3.5 - 5.3 [facility] Comment on above: Performed By: #### E LECT #### [address] [address] Sodium [Moles/Vol] 143 mmol/L Normal 136 - 145 [facility] Comment on above: Performed By: #### E LECT #### [address] [address] LIPID PANEL (CORONARY RISK 2 )on 03-12-2020 Cholesterol [Mass/Vol] 99 mg/dL Normal 0 - 199 [facility] Comment on above: Result Comment: . AGE [...] dosing. Performed By: #### L IPID #### [address] [address] Cholesterol in HDL [Mass/Vol] 60.0 mg/dL Normal [facility] Comment on above: Result Comment: . AGE VERY LOW LOW NORMAL HIGH 0-19 Y < 35 < 40 40-45 ---- 20-24 Y ---- < 40 >45 ---- >24 Y ---- < 40 40-60 >60 . Performed By: #### L IPID #### [address] [address] Cholesterol in LDL [Mass/Vol] 23 mg/dL Normal 0 - 99 [facility] Comment on above: Result Comment: . NEAR BORD AGE DESIRABLE OPTIMAL HIGH HIGH VERY HIGH 0-19 Y 0 - 109 --- 110-129 >/= 130 ---- 20-24 Y 0 - 119 --- 120-159 >/= 160 ---- >24 Y 0 - 99 100-129 130-159 160-189 >/=190 . Performed By: #### L IPID #### [address] [address] Cholesterol in VLDL [Mass/Vol] 16 mg/dL Normal 0 - 40 [facility] Comment on above: Performed By: #### L IPID #### [address] [address] Cholesterol.total/C holesterol in HDL [Mass ratio] 1.7 {ratio} Normal [facility] Comment on above: Result Comment: REF VALUES DESIRABLE < 3.4 HIGH RISK > 5.0 Performed By: #### L IPID #### [address] [address] Triglyceride [Mass/Vol] 79 mg/dL Normal 0 - 149 [facility] Comment on above: Result Comment: . AGE [...] dosing. Performed By: #### L IPID #### [address] [address] PARATHYROID HORMONE,INTACTon 03-12-2020 PARATHYROID HORMONE,INTACT < 6.3 Low 18.5 - 88.0 [facility] Comment on above: Result Comment: Josee ents receiving more than 5 mg/day of biotin may have interference in test results. A sample should be taken no sooner than eight hours after previous dose. Contact the testing laboratory for additional information. Performed By: #### P TH #### [address] [address] RENAL FUNCTION PANELon 03-12 Albumin [Mass/Vol] 4.3 g/dL Normal 3.4 - 5.0 [facility] Comment on above: Performed By: #### T SH2 #### [address] [address] Anion gap [Moles/Vol] 16 mmol/L Normal 10 - 20 [facility] Comment on above: Performed By: #### T SH2 #### [address] [id number] Calcium [Mass/Vol] 8.2 mg/dL Low 8.6 - 10.3 [facility] Comment on above: Performed By: #### T SH2 #### [address] [address] Chloride [Moles/Vol] 102 mmol/L Normal 98 - 107 [facility] Comment on above: Performed By: #### T SH2 #### [address] [address] Creatinine [Mass/Vol] 0.82 mg/dL Normal 0.50 - 1.05 [facility] Comment on above: Performed By: #### T SH2 #### [address] [address] GFR- AM. >60 Normal >60 [facility] Comment on above: Result Comment: CALC ULATIONS OF ESTIMATED GFR ARE PERFORMED USING THE MDRD STUDY EQUATION FOR THE IDMS-TRACEABLE CREATININE METHODS. CLIN CHEM 2007;53:766-72 Performed By: #### T SH2 #### [address] [address] GFR-NON AM. >60 Normal >60 [facility] Comment on above: Performed By: #### T SH2 #### [address] [address] Glucose [Mass/Vol] 97 mg/dL Normal 74 - 99 [facility] Comment on above: Performed By: #### T SH2 #### [address] [address] HCO3 (Bld) [Moles/Vol] 29 mmol/L Normal 21 - 32 [facility] Comment on above: Performed By: #### T SH2 #### [address] [address] Phosphate [Mass/Vol] 5.3 mg/dL High 2.5 - 4.9 [facility] Comment on above: Result Comment: The performance characteristics of phosphorus testing in heparinized plasma have been validated by the individual laboratory site where testing is performed. Testing on heparinized plasma is not approved by the FDA; however, such approval is not necessary. Performed By: #### T SH2 #### [address] [address] Potassium [Moles/Vol] 3.7 mmol/L Normal 3.5 - 5.3 [facility] Comment on above: Performed By: #### T SH2 #### [address] [address] Sodium [Moles/Vol] 143 mmol/L Normal 136 - 145 [facility] Comment on above: Performed By: #### T SH2 #### [address] [address] Urea nitrogen [Mass/Vol] 23 mg/dL Normal 6 - 23 [facility] Comment on above: Performed By: #### T SH2 #### [address] [address] UREA NITROGENon 03-12-2020 Urea nitrogen [Mass/Vol] 23 mg/dL Normal 6 - 23 [facility] Comment on above: Performed By: #### U TARAS #### [address] [address] VITAMIN D, 25-HYDROXYon 02-27 VITAMIN D, 25-HYDROXY 43 ng/mL Normal [facility] Comment on above: Result Comment: . DEFICIENCY: < 20 NG/ML INSUFFICIENCY: 20-29 NG/ML SUFFICIENCY: 30-100 NG/ML THIS ASSAY ACCURATELY QUANTIFIES THE SUM OF VITAMIN D3, 25-HYDROXY AND VIT D2,25-HYDROXY. Performed By: #### T SH2 #### [address] [address] THYROXINEon 09-17-2019 T4 [Mass/Vol] 8.0 ug/dL Normal 4.5 - 11.1 [facility] Comment on above: Performed By: #### T 4 #### [address] [address] THYROXINE,FREEon 09-17-2019 THYROXINE,FREE 0.70 ng/dL Normal 0.61 - 1.27 [facility] Comment on above: Result Comment: Thyr oxine Free testing is performed using different testing methodology at [facility] than at other [facility]. Direct result comparisons should only be made within the same method. Patients receiving more than 5 mg/day of biotin may have interference in test results. A sample should be taken no sooner than eight hours after previous dose. Performed By: #### T 4FRE #### [address] [address] TSHon 09-17-2019 TSH Qn 6.25 m[IU]/L High 0.44 - 3.98 [facility] Comment on above: Result Comment: TSH testing is performed using different testing methodology at [facility] than at other [facility]. Direct result comparisons should only be made within the same method. Performed By: #### T SH2 #### [address] [address] Vital Signs Date Time Vital Sign Value Performing Clinician Facility 03-07-2024 11:44-0400 Body height 147.32 cm [facility] 03-07-2024 11:44-0400 Body mass index (BMI) [Ratio] 22.8 kg/m2 [facility] 03-07-2024 11:44-0400 Body temperature 97.6 [degF] [facility] 03-07-2024 11:44-040 Body weight 49.44 kg [facility] 03-07-2024 11:44-0400 Diastolic blood pressure 60 mm[Hg] [facility] 03-07-2024 11:44-0400 Heart rate 96 /min [facility] 03-07-2024 11:44-0400 Respiratory rate 16 /min [facility] 03-07-2024 11:44-0400 SaO2% (BldA) [Mass fraction] 86 % [facility] 03-07-2024 11:44-0400 Systolic blood pressure 102 mm[Hg] [facility] 07-20-2023 10:40-0400 Body height 147.32 cm Pratik A Naderer Work Phone: [facility] 250 DO Work Phone: 07-20-2023 10:40-0400 Body mass index (BMI) [Ratio] 21.11 kg/m2 Pratik A Naderer Work Phone: [facility] 250 DO Work Phone: 07-20-2023 10:40-0400 Body surface area Derived from formula 1.36 m2 Pratik A Naderer Work Phone: [facility] 250 DO Work Phone: 07-20-2023 10:40-0400 Body weight 45.81 kg Pratik A Naderer Work Phone: [facility] 250 DO Work Phone: 07-20-2023 10:40-0400 Diastolic blood pressure 66 mm[Hg] Pratik A Naderer Work Phone: [facility] 250 DO Work Phone: 07-20-2023 10:40-0400 Heart rate 60 /min Pratik A Naderer Work Phone: [facility] 250 DO Work Phone: 07-20-2023 10:40-0400 Systolic blood pressure 100 mm[Hg] Pratik Bartonerer Work Phone: [facility] 250 DO Work Phone: 02-08-2023 14:00-0400 Body height 147.32 cm Madhav Valerietim Other [employer] Other 02-08-2023 14:00-0400 Body mass index (BMI) [Ratio] 22.57 kg/m2 Madhav Valerietim Other [employer] Other 02-08-2023 14:00-0400 Body weight 48.99 kg Madhav Conrad Other [employer] Other 02-08-2023 14:00-0400 Diastolic blood pressure 60 mm[Hg] Madhav Valerietim Other [employer] Other 02-08-2023 14:00-0400 Systolic blood pressure 105 mm[Hg] Madhav Anamaria Other [employer] Other 01-12-2023 11:13-0400 Body height 147.32 cm Pratik Meza Naderer Work Phone: [facility] 250 DO Work Phone: 01-12-2023 11:13-0400 Body mass index (BMI) [Ratio] 21.95 kg/m2 Pratik Meza Naderer Work Phone: [facility] 250 DO Work Phone: 01-12-2023 11:13-0400 Body surface area Derived from formula 1.38 m2 Pratik Meza Naderer Work Phone: [facility] 250 DO Work Phone: 01-12-2023 11:13-0400 Body weight 47.63 kg Pratik A Naderer Work Phone: [facility] 250 DO Work Phone: 01-12-2023 11:13-0400 Diastolic blood pressure 60 mm[Hg] Pratik Meza Naderer Work Phone: [facility] 250 DO Work Phone: 01-12-2023 11:13-0400 Heart rate 88 /min Pratik Meza Naderer Work Phone: [facility] 250 DO Work Phone: 01-12-2023 11:13-0400 Systolic blood pressure 102 mm[Hg] Pratik Meza Naderer Work Phone: [facility] 250 DO Work Phone: 08-02-2022 13:32-0400 Diastolic blood pressure 62 mm[Hg] Seema Aichholz Work Phone: [facility] 08-02-2022 13:32-0400 Heart rate 63 /min Seema Aichholz Work Phone: [facility] 08-02-2022 13:32-0400 Respiratory rate 18 /min Seema Aichholz Work Phone: [facility] 08-02-2022 13:32-0400 SaO2% (BldA) [Mass fraction] 100 % Seema Aichholz Work Phone: [facility] 08-02-2022 13:32-0400 Systolic blood pressure 122 mm[Hg] Seema Aichholz Work Phone: [facility] 08-02-2022 12:26-0400 Body height 147.32 cm Seema Aichholz Work Phone: [facility] 08-02-2022 12:26-0400 Body temperature 98.3 [degF] Seema Aichholz Work Phone: [facility] 08-02-2022 12:26-0400 Body weight 48.53 kg Seema Sutherland Work Phone: [facility] 06-23-2022 15:29-0400 Body height 147.32 cm Pratik A Naderer Work Phone: [facility] 250 DO Work Phone: 06-23-2022 15:29-0400 Body mass index (BMI) [Ratio] 22.62 kg/m2 Pratik A Naderer Work Phone: [facility] 250 DO Work Phone: 06-23-2022 15:29-0400 Body surface area Derived from formula 1.4 m2 Pratik A Naderer Work Phone: [facility] 250 DO Work Phone: 06-23-2022 15:29-0400 Body weight 49.1 kg Pratik A Naderer Work Phone: [facility] 250 DO Work Phone: 06-23-2022 15:29-0400 Diastolic blood pressure 60 mm[Hg] Pratik A Naderer Work Phone: [facility] 250 DO Work Phone: 06-23-2022 15:29-0400 Heart rate 62 /min Pratik A Naderer Work Phone: [facility] 250 DO Work Phone: 06-23-2022 15:29-0400 Systolic blood pressure 110 mm[Hg] Pratik A Naderer Work Phone: [facility] 250 DO Work Phone: 05-11-2022 11:17-0400 Blood Pressure Location Med JENKINS [facility] 05-11-2022 11:17-0400 Diastolic blood pressure 63 mm[Hg] Med JENKINS [facility] 05-11-2022 11:17-0400 Heart rate 81 /min Med JENKINS [facility] 05-11-2022 11:17-0400 Respiratory rate 16 /min Med JENKINS [facility] 05-11-2022 11:17-0400 Systolic blood pressure 125 mm[Hg] Med JENKINS [facility] 03-24-2022 13:00-0400 Body height 147.32 cm Aba Giovanny Other [employer] Other 03-24-2022 13:00-0400 Body mass index (BMI) [Ratio] 22.28 kg/m2 Aba Giovanny Other [employer] Other 03-24-2022 13:00-0400 Body temperature 97.7 [degF] Aba Giovanny Other [employer] Other 03-24-2022 13:00-0400 Body weight 48.35 kg Aba Giovanny Other [employer] Other 03-24-2022 13:00-0400 Diastolic blood pressure 70 mm[Hg] Aba Giovanny Other [employer] Other 03-24-2022 13:00-0400 Respiratory rate 18 /min Aba Giovanny Other [employer] Other 03-24-2022 13:00-0400 SaO2% (BldA) [Mass fraction] 97 % Aba Giovanny Other [employer] Other 03-24-2022 13:00-0400 Systolic blood pressure 110 mm[Hg] Aba Giovanny Other [employer] [address] Other 12-29-2021 11:00-0500 Body height 147.32 cm Pratik Meza Naderer Work Phone: [facility] [employer] [facility] DO Work Phone: 12-29-2021 11:00-0500 Body mass index (BMI) [Ratio] 22.99 kg/m2 Pratik A Naderer Work Phone: [facility] [employer] 250 DO Work Phone: 12-29-2021 11:00-0500 Body surface area Derived from formula 1.41 m2 Pratik A Naderer Work Phone: [facility] [employer] 250 DO Work Phone: 12-29-2021 11:00-0500 Body weight 49.9 kg Pratik A Naderer Work Phone: [facility] 250 DO Work Phone: 12-29-2021 11:00-0500 Diastolic blood pressure 60 mm[Hg] Pratik A Naderer Work Phone: [facility] [employer] 250 DO Work Phone: 12-29-2021 11:00-0500 Heart rate 68 /min Pratik A Naderer Work Phone: [employer] [employer] 250 DO Work Phone: 12-29-2021 11:00-0500 Systolic blood pressure 110 mm[Hg] Pratik Tadeo Work Phone: [employer] 250 DO Work Phone: 10-18-2021 14:30-0500 Body height 147.32 cm Alyssa Ginty Other [employer] Other 10-18-2021 14:30-0500 Body mass index (BMI) [Ratio] 22.99 kg/m2 Alyssa Ginty Other [employer] Other 10-18-2021 14:30-0500 Body temperature 97.9 [degF] Alyssa Ginty Other [employer] Other 10-18-2021 14:30-0500 Body weight 49.9 kg Alyssa Ginty Other [employer] Other 10-18-2021 14:30-0500 Diastolic blood pressure 49 mm[Hg] Alyssa Ginty Other [employer] Other 10-18-2021 14:30-0500 Respiratory rate 18 /min Alyssa Ginty Other [employer] Other 10-18-2021 14:30-0500 SaO2% (BldA) [Mass fraction] 98 % Alyssa Ginty Other [employer] Other 10-18-2021 14:30-0500 Systolic blood pressure 136 mm[Hg] Alyssa Ginty Other [employer] Other 09-07-2021 12:15-0500 Body height 147.32 cm Carie Keith Other [employer] Other 09-07-2021 12:15-0500 Body mass index (BMI) [Ratio] 22.49 kg/m2 Carie Keith Other [employer] Other 09-07-2021 12:15-0500 Body weight 48.81 kg Carie Keith Other [employer] Other 09-02-2021 13:40-0400 Body height 147.32 cm Aba Giovanny Other [employer] Other 09-02-2021 13:40-0400 Body mass index (BMI) [Ratio] 22.53 kg/m2 Aba Giovanny Other [employer] Other 09-02-2021 13:40-0400 Body temperature 96.9 [degF] Aba Giovanny Other [employer] [address] [employer] Other 09-02-2021 13:40-0400 Body weight 48.9 kg Aba Giovanny Other [employer] Other 09-02-2021 13:40-0400 Diastolic blood pressure 72 mm[Hg] Aba Giovanny Other [employer] Other 09-02-2021 13:40-0400 Respiratory rate 18 /min Aba Giovanny Other [employer] Other 09-02-2021 13:40-0400 SaO2% (BldA) [Mass fraction] 98 % Aba Giovanny Other [employer] Other 09-02-2021 13:40-0400 Systolic blood pressure 110 mm[Hg] Aba Hidalgor Other [facility] [employer] Other Encounters Encounter Date Encounter Type Care Provider Facility Start: 10-16-2024 ambulatory Med JENKINS Facility :[facility] Start: 07-18-2024 End: 07-19-2024 Emergency department patient visit JACK VIVEROS [facility] Start: 07-18-2024 End: 07-18-[address] [facility] Start: 06-13-2024 End: 06-13-2024 ambulatory SERGIO VENTURA Not Available Start: 04-10-2024 End: 04-10-2024 ambulatory Med JENKINS Facility:[facility] Start: 04-10-2024 End: 04-10-2024 Patient encounter procedure Med JENKINS [facility] Start: 03-20-2024 End: 03-20-2024 ambulatory BERNARD JAMESR Not Available Start: 03-11-2024 End: 03-11-2024 ambulatory SEEMA AICChrisHOLZ Not Available Start: 03-07-2024 End: 03-07-2024 ambulatory [facility] Work Phone: Start: 03-07-2024 End: 03-07-2024 Patient encounter procedure [facility] Physician [facility] Nephrology Steve Work Phone: Start: 02-27-2024 Non-patient / Non-visit [facility] [employer] Work Phone: Start: 02-26-2024 End: 02-26-2024 ambulatory Med JENKINS Facility:[facility] Start: 02-26-2024 End: 02-26-2024 Patient encounter procedure Med JENKINS [facility] Start: 11-13-2023 End: 12-19-2023 Pre-admission assessment Med JENKINS [facility] Start: 11-13-2023 End: 11-13-2023 ambulatory Med JENKINS Facility:[facility] Start: 11-13-2023 End: 11-13-2023 Patient encounter procedure Med JENKINS [facility] Start: 10-03-2023 ambulatory Med JENKINS Facility:[facility] Start: 09-27-2023 End: 09-27-2023 ambulatory Med JENKINS Facility:[facility] [place] Start: 09-27-2023 End: 09-27-2023 Patient encounter procedure Med JENKINS [facility] [place] Start: 08-16-2023 End: 08-16-2023 ambulatory Med JENKINS Facility:[facility] Start: 08-16-2023 End: 08-16-2023 Lab Drop off Med JENKINS [facility] Start: 08-16-2023 End: 08-16-2023 ambulatory Med JENKINS Facility:[facility] [place] Start: 08-16-2023 End: 08-16-2023 Patient encounter procedure Med JENKINS [facility] Start: 07-20-2023 Office outpatient visit 25 minutes Pratik Derrick Tadeo Work Phone: [facility] 250 DO Work Phone: Start: 07-20-2023 ambulatory Donna Turciso Facility : Start: 07-05-2023 End: 07-05-2023 ambulatory Seema Sutherland Facility:[facility] Start: 07-05-2023 End: 07-05-2023 ambulatory Seema Sutherland Work Phone: [facility] Work Phone: Start: 07-05-2023 End: 07-05-2023 Patient encounter procedure Seema Sutherland Work Phone: [facility] [address] Work Phone: Start: 05-25-2023 End: 05-25-2023 ambulatory Aba Giovanny Other [employer] Other Start: 05-25-2023 Telephone encounter Aba Giovanny [facility] Start: 05-11-2023 End: 05-11-2023 ambulatory Med JENKINS Facility:[facility] Start: 05-11-2023 End: 05-11-2023 Patient encounter procedure Med JENKINS [facility] Start: 05-08-2023 End: 05-08-2023 ambulatory Aba Giovanny Other [employer] [address] Other Start: 05-08-2023 Telephone encounter Aba Giovanny [facility] Start: 02-08-2023 End: 02-08-2023 ambulatory Madhav Conrad Other [employer] Other Start: 02-08-2023 Patient encounter procedure Madhav Conrad [facility] Start: 01-12-2023 ambulatory Donna Turcios Facility : Start: 01-12-2023 Office outpatient visit 25 minutes Pratik Derrick Cárdenasr Work Phone: [facility] 250 DO Work Phone: Start: 11-30-2022 End: 11-30-2022 ambulatory Aba Giovanny Other [employer] Other Start: 11-30-2022 Telephone encounter Aba Giovanny [facility] Start: 11-29-2022 End: 11-30-2022 ambulatory SPINE SPECIALIST SEEMA SUTHERLAND Facility:[facility] Start: 08-03-2022 End: 08-03-2022 ambulatory Madhav Conrad Other [facility] [employer] Other Start: 08-03-2022 Telephone encounter Madhav CAMERON [facility] Start: 08-02-2022 End: 08-02-2022 ambulatory Seema Musa Lancechrisabbeyumer Facility:[facility] Start: 08-02-2022 End: 08-02-2022 Admission to same day surgery center Seema Lancechrisabbeyumer Work Phone: [facility] Start: 08-02-2022 End: 08-02-2022 ambulatory Seema Musa Lancechrisabbeyumer Work Phone: [facility] Work Phone: Start: 07-29-2022 End: 07-29-2022 ambulatory Madhav Padillatim Facility:[facility] Start: 07-29-2022 End: 07-29-2022 Patient encounter procedure Seema Sutherland Work Phone: [facility]-Pre-Surgical Testing Start: 07-13-2022 Rx Renewal Pratik Cárdenasr Work Phone: [facility] 250 DO Work Phone: Start: 07-11-2022 End: 07-12-2022 ambulatory SPINE SPECIALIST SEEMA SUTHERLAND Facility:[facility] Start: 06-23-2022 Office outpatient visit 25 minutes Pratik A Naderer Work Phone: [facility] 250 DO Work Phone: Start: 06-22-2022 End: 06-22-2022 Patient encounter procedure Med JENKINS [facility] Start: 06-15-2022 End: 06-16-[address] DONNA TURCIOS Facility:[facility] Start: 05-23-2022 End: 05-23-2022 Patient encounter procedure Med JENKINS [facility] Start: 05-17-2022 End: 05-17-2022 Lab Drop off Med Yanelis JENKINS [facility] Start: 05-17-2022 End: 05-17-2022 Patient encounter procedure Med JENKINS [facility] Start: 05-11-2022 End: 05-11-2022 Patient encounter procedure Med JENKINS [facility] Start: 04-20-2022 End: 04-21-2022 ambulatory SPINE SPECIALIST SEEMA LANCEChrisPONCHO Facility:[facility] Start: 03-24-2022 End: 03-24-2022 ambulatory Aba Giovanny Other [facility] [employer] Other Start: 03-24-2022 Office outpatient visit 25 minutes Aba Giovanny [facility] Start: 03-23-2022 End: 03-23-2022 ambulatory RODERICK KONG Facility:[facility] Start: 03-23-2022 End: 03-24-2022 ambulatory ABA GIOVANNY Facility:[facility] Start: 03-22-2022 End: 03-23-2022 ambulatory ABA GIOVANNY [facility] [employer] Other Start: 03-22-2022 Telephone encounter Aba Giovanny [facility] Start: 12-29-2021 Office outpatient visit 25 minutes Pratik Tadeo Work Phone: [place] [id number] DO Work Phone: Start: 10-18-2021 End: 10-18-2021 ambulatory Alyssa Janee Other [employer] Other Start: 10-18-2021 Office outpatient visit 15 minutes Alyssa Janee [facility] Start: 09-07-2021 End: 09-07-2021 ambulatory Carie Inna Other [employer] [address] Other Start: 09-07-2021 Office outpatient visit 15 minutes Carie Keith [facility] Start: 09-02-2021 End: 09-02-2021 ambulatory Aba Giovanny Other [employer] [address] [employer] Other Start: 09-02-2021 Office outpatient visit 25 [...] encounter procedure Bean Cantu Work Phone: [facility] [place] [facility] Start: 01-29-2018 Ambulatory [facility] Facility :[id number] Procedures Date Procedure Procedure Detail [...] Donna Turcios, Status: Pen, Time: 10:20 AM [facility] [employer] 250 DO Work Phone: Start: 01-12-2023 FUV, Provider: Donna Turcios, Status: Pen, Time: 10:50 AM [facility], Provider: Donna Turcios, Status: Pen, [facility]: 10:50 AM [facility] Work Phone: Start: 08-02-2022 [facility] Start: 07-12-2022 FUV, Provider: Donna Turicos, Status: Pen, Time: 10:50 AM [facility], Provider: Donna Turcios, Status: Pen, Time: 10:[facility] Work Phone: Start: 02-17-2021 Bacteria identified in Urine by Culture Urine Culture [facility] Patient Education Gastritis (DC) Omeprazole [facility] Work Phone: Renal function 2000 panel - Serum or Plasma [facility] Immunizations Immunization Date Immunization Notes Care Provider Zain khan 06-30-2023 influenza virus vacc ine, unspecified formulation Med JENKINS [facility] 09-17-2021 Pfizer-BioNTech COVI D-19 Vacc 30 MCG/0.3ML Intramuscular Suspension Pratik Meza Mickjboyr Work Phone: [facility] 09-08-2021 influenza virus vacc ine, unspecified formulation Med JENKINS [facility] 09-08-2021 Influenza, injectabl e, Madin [place] Canine Kidney, preservative free, quadrivalent Pratik A Naderer Work Phone: [place] [address] DO Work Phone: 01-05-2021 Moderna COVID-19 Vac cine 100 MCG/0.5ML Intramuscular Suspension Pratik A Naderer Work Phone: [facility] 12-07-2020 Moderna COVID-19 Vac cine 100 MCG/0.5ML Intramuscular Suspension Pratik A Naderer Work Phone: [facility] 08-11-2020 influenza virus vacc ine, unspecified formulation Med Appy Couple [facility] 08-11-2020 influenza, injectabl e, quadrivalent, preservative free Pratik A Naderer Work Phone: [place] [address] DO Work Phone: 08-11-2020 pneumococcal polysaccharide vaccine, 23 valent Pratik A Naderer Work Phone: [facility] 06-30-2020 influenza virus vacc ine, unspecified formulation Pratik A Naderer Work Phone: [facility] 07-30-2019 influenza virus vacc ine, unspecified formulation Pratik A Naderer Work Phone: [place] [address] DO Work Phone: 07-16-2019 influenza virus vacc ine, unspecified formulation [employer] [facility] 07-16-2019 influenza, injectabl e, quadrivalent, preservative free Pratik A Naderer Work Phone: [place] [address] DO Work Phone: 08-09-2018 influenza virus vacc ine, unspecified formulation Med JENKINS [facility] 08-09-2018 influenza, high dose seasonal, preservative-free Pratik A Naderer Work Phone: [facility] 250 DO Work Phone: 07-30-2018 influenza virus vacc ine, unspecified formulation Pratik A Naderer Work Phone: [facility] 250 DO Work Phone: 08-11-2017 influenza virus vacc ine, unspecified formulation Med JENKINS [facility] 08-11-2017 influenza, high dose seasonal, preservative-free Pratik A Naderer Work Phone: [place] [address] DO Work Phone: 07-30-2017 influenza virus vacc ine, unspecified formulation Pratik A Naderer Work Phone: [place] [address] DO Work Phone: 08-02-2016 influenza virus vacc ine, unspecified formulation Med JENKINS [facility] 08-02-2016 influenza, high dose seasonal, preservative-free Pratik A Naderer Work Phone: [facility] 250 DO Work Phone: 06-30-2016 influenza virus vacc ine, unspecified formulation Pratik A Naderer Work Phone: [facility] 250 DO Work Phone: 01-08-2016 pneumococcal conjuga te vaccine, 13 valent Pratik A Naderer Work Phone: [facility] 07-21-2015 influenza virus vacc ine, unspecified formulation Pratik A Naderer Work Phone: [place] [address] DO Work Phone: 07-21-2015 pneumococcal polysaccharide vaccine, 23 valent Pratik A Naderer Work Phone: [facility] 250 DO Work Phone: 07-17-2015 influenza virus vacc ine, unspecified formulation Med JENKINS [facility] 07-17-2014 influenza virus vacc ine, unspecified formulation Med JENKINS [facility] 07-17-2014 influenza, high dose seasonal, preservative-free Pratik A Naderer Work Phone: [place] [address] DO Work Phone: 08-07-2012 influenza virus vacc ine, unspecified formulation Med JENKINS [facility] 08-07-2012 influenza, seasonal, injectable, preservative free Pratik A Naderer Work Phone: [place] [address] DO Work Phone: 06-04-2012 tetanus toxoid, redu ruby diphtheria toxoid, and acellular pertussis vaccine, adsorbed Pratik A Naderer Work Phone: [facility] 09-16-2010 influenza virus vacc ine, unspecified formulation Med JENKINS [facility] 09-16-2010 influenza, seasonal, injectable Pratik A Naderer Work Phone: [place] [address] DO Work Phone: Payers Date Payer Category Payer Private Health Insurance [id number] 2022 Self-pay [id number] 1959 Medicare [id number] 1959 Unknown [id number] 1940 Unknown [id number] 2.16.84 0.1.110792.3.579.2.593 1940 Unknown [id number] 2.16.84 0.1.861255.3.579.2.593 1940 Unknown [id number] 2.16.84 0.1.693609.3.579.2.593 1940 Unknown [id number] 2.16.84 0.1.805571.3.579.2.593 1940 Unknown [id number] 2.16.84 0.1.539618.3.579.2.593 1940 Unknown [id number] 2.16.84 0.1.296997.3.579.2.593 1940 Unknown [id number] 2.16.84 0.1.650154.3.579.2.593 1940 Unknown [id number] 2.16. 840.1.232002.3.579.2.356 1940 Unknown [id number] 2.16. 840.1.704581.3.579.2.356 1940 Unknown [id number] 2.16.8 40.1.923643.3.579.2.727 1940 Unknown [id number] 2.16.8 40.1.720968.3.579.2.727 1940 Unknown [id number] 2.16.8 40.1.955772.3.579.2.727 1940 Unknown [id number] 2.16.8 40.1.109027.3.579.2.727 1941 Unknown [id number] 2.16.8 40.1.185150.3.579.2.727 194 Unknown [id number] 2.16.8 40.1.199800.3.579.2.727 1940 Unknown [id number] 2.16.8 40.1.697932.3.579.2.727 194 Unknown [id number] 2.16.8 40.1.551207.3.579.2.727 1940 Unknown [id number] 2.16.84 0.1.997704.3.579.2.1259 1940 Unknown [id number] 2.16.84 0.1.874725.3.579.2.1259 1940 Unknown [id number] 2.16.84 0.1.005899.3.579.2.1259 1940 Unknown [id number] 2.16.8 40.1.483068.3.579.2.1244 1940 Unknown [id number] 2.16.8 40.1.422790.3.579.2.1286 1940 Unknown [id number] 2.16.8 40.1.351754.3.579.2.1286 1940 Unknown [id number] 2.16.8 40.1.381215.3.579.2.1286 194 Unknown [id number] 2.16.8 40.1.506941.3.579.2.1286 194 Unknown [id number] 2.16.8 40.1.158829.3.579.2.1286 Medicare [id number] Unknown [id number] Unknown Unknown [id number] 2.16.8 40.1.760016.3.579.2.531 Unknown [id number] 2.16.8 40.1.218275.3.579.2.531 Unknown [id number] 2.16.8 40.1.701480.3.579.2.531 Social History Date Type Detail Facility Start: 02-17-2021 End: 04-10-2024 Tobacco smoking status NHIS Never smoked tobacco (finding) [facility] Start: 1940 Sex Assigned At Female F [facility] No alcohol use No alcohol use -[facility] [address] DO Work Phone: Sex Assigned At [facility] OpenText Other Tobacco smoking status Never [facility] [place] Medical Equipment Procedure Code Equipment Code Equipment [...] knee, total, minimally invasive Orthopaedic cement, non-medicated ()[id number] FDA Start: 03-09-2021 Arthroplasty, knee, total, minimally invasive Uncoated knee femur prosthesis, metallic ()[id number] FDA Start: 03-09-2021 Arthroplasty, knee, total, minimally invasive Polyethylene patella prosthesis ()[id number] FDA Start: 03-09-2021 Arthroplasty, knee, total, minimally invasive Tibial insert ()[id number] FDA Start: 03-09-2021 Arthroplasty, knee, total, minimally invasive Uncoated knee tibia prosthesis, metallic ()[id number] FDA Start: 03-09-2021 Arthroplasty, knee, total, minimally [...] Facility 04-10-2024 Functional Status N/A [facility] 02-26-2024 Functional Status N/A [facility] 09-27-2023 Functional Status N/A [facility] 08-16-2023 Functional Status N/A [facility] 05-11-2023 Functional Status N/A [facility] 06-22-2022 Functional Status N/A [facility] 05-19-2022 Functional Status N/A [facility] 05-11-2022 Functional Status N/A [facility] Clinical Notes 09-02-2021 to 04-10-2024 Note [...] nerve stimulation). ?For women, using a medical secretary receptionist to prevent urine leaks. This is a [...] right after experiencing incontinence. General instructions Take vhel-hxf-roppaxd and prescription medicines only as told by [...] important. Where to find more information National Dwarf of Diabetes and Digestive and Kidney Diseases: www.niddk.nih.gov [place] [employer]: www.urologyhealth.org Contact a health care [...] provider. Document Revised: 05/21/2021 Document Reviewed: 05/21/2021 [employer] Patient Education 2022 [employer]. Follow Up Care 02/26/2024 13:52:27 With:TRINA WASTON, Med Hilario, URL Address: [address] [place] [address]- When: Unknown [facility] 02-26-2024 Hospital Discharg e instructions Patient [...] Care 11/13/2023 15:16:14 With:Med JENKINS Address: [address] [place], [place] [id number] Business (1) When:6 weeks Comments:Call for followup appointment, with a bladder scan at that visit to check for bladder emptying. [facility] 02-26-2024 Note [id number] [facility] 02-26-2024 Note Cystoscopy with Boto x injection [...] you have a fever over 100 degrees. [facility] 11-13-2023 Evaluation + Plan note Extrac db from: Title:HOPD visit Author:Med JENKINS MD Date: 11/13/23 Impression and Plan Assessment and Plan: Diagnosis: Acute UTI (GIB48-JO N39.0, Working, Medical), Mixed incontinence urge and stress (AYW25-DE N39.46, Working, Medical), Overactive bladder (NGH19-IG N32.81, Working, Medical). Additional Plan of Care [...] is also instructed to follow-up with her scan coordinator regarding some heart rate issues. She should [...] Appointments Appointment Date:12/18/2023 03:15:00 PM Scheduled Provider: Location:[facility] Appointment Type:Urology FT Diagnostic Tests Pending * Urine Culture 11/13/23 [facility]11-29-2023 Hospital Discharge instructions Follow Up Care 09/27/2023 13:27:49 With:Med JENKINS Address: [address] [place] [address] Business (1) When: Unknown Comments:As you know [...] probiotics locally and the cranberry is self-explanatory.My unhairing inspector will call you to get you back on the books for the Botox injection. [facility]11-29-2023 Hospital Discharge instructions Patient Education 09/27/2023 [...] nerve stimulation). ?For women, using a medical secretary receptionist to prevent urine leaks. This is a [...] right after experiencing incontinence. General instructions Take fnkb-uim-pvaohkv and prescription medicines only as told by [...] important. Where to find more information National Dwarf of Diabetes and Digestive and Kidney Diseases: www.niddk.nih.gov [place] [employer]: www.urologyhealth.org Contact a health care [...] provider. Document Revised: 05/21/2021 Document Reviewed: 05/21/2021 [employer] Patient Education 2022 [employer]. Follow Up Care 08/16/2023 10:31:24 With:TRINA WATSON, Med Hilario, URL Address: [address] [place], [place] [id number]- When: Unknown [facility] [place] 10-18-2023 Hospital Discharge instructions Patient Education 08/16/2023 [...] Treatment for this condition includes: Antibiotic medicine. Avda-sth-iarxfrh medicines to treat discomfort. Drinking enough water [...] Follow these instructions at home: Medicines Take yuog-ssb-mijqjgy and prescription medicines only as told by [...] Document Reviewed: 05/28/2021 Elsevier Patient Education 2022 [employer]. Follow Up Care 05/11/2023 08:07:36 With:Med JENKINS MD, URL Address: [address] [place] [address] [address]- When: Unknown [facility] 07-27-2023 Evaluation note* Encounter Date Diagnosis Assessment Notes Treatment Notes Treatment Clinical Notes Apr, Hypomagnesemia (ICD-10 - E83.42) [employer] Other 07-13-2023 Hospital Discharge instructions Patient Education [...] Up Care 04/12/2023 15:40:50 With:Med JENKINS Address: [address] [place] [address] [address] Business (1) When:3 months Comments:Call for followup appointment, with bladder scan checking for residual urine at that visit. [facility]07-13-2023 Note [id number]:127[facility] 05-11-2023 NoteCystoscopy with Botox injection ? Voiding [...] you have a fever over 100 degrees.[facility] 05-08-2023 Evaluation note* Encounter Date Diagnosis Assessment Notes Treatment Notes Treatment Clinical Notes Apr, Hypomagnesemia (ICD-10 - E83.42) [employer] Other 04-12-2023 Evaluation note* Encounter Date Diagnosis Assessment Notes Treatment Notes Treatment Clinical Notes Jan, Early satiety (ICD-10 - R68.81) Jan, Gastritis (ICD-10 - K29.70) Continue Omeprazole as directed Rto 1 yr Jan, Borborygmi (ICD-10 - R19.8) [employer] Other 10-04-[facility] Discharge instructions Patient Education 06/22/2022 13:02:36 [...] nerve stimulation). For women, using a medical secretary receptionist to prevent urine leaks. This is a [...] right after experiencing incontinence. General instructions Take qxha-xlj-yuovrhc and prescription medicines only as told by [...] 11/23/2005 Document Revised: 10/26/2018 Document Reviewed: 01/25/2018 [employer] Patient Education 2020 [employer]. 06/22/2022 13:02:35 Kegel Exercises Kegel Exercises Kegel [...] 10/02/2013 Document Revised: 06/05/2019 Document Reviewed: 06/05/2019 [employer] Patient Education 2020 [employer]. Follow Up Care 05/23/2022 15:12:51 With:TRINA WATSON, Med Hilario, URL Address: When:Within 6 Month(s) Comments:w/PVR [facility] 07-25-2022 Hospital Discharge instructions Patient Education [...] Up Care 05/11/2022 11:39:36 With:Med JENKINS Address: [address] [place] [address] [facility] (1) When:2 to 4 weeks Comments:Call for followup appointment, and a bladder scan to check bladder emptying will be performed at that visit. [facility]07-13-2022 Hospital Discharge instructions Patient Education 05/11/2022 [...] fried and sweet foods. General instructions Take wpva-uyb-qntlsns and prescription medicines only as told by [...] 08/12/2010 Document Revised: 02/06/2020 Document Reviewed: 11/01/2018 [employer] Patient Education 2020 [employer] Follow Up Care 12/27/2021 11:50:32 With:TRINA WATSON, Med Hilario, URL Address: [address] [place], [place] [id number]- When: Unknown [facility] 05-26-2022 Evaluation note* Encounter Date Diagnosis [...] of cardiac arrest due to the hypokalemia [employer] Other 12-20-2021 Evaluation note* Encounter Date Diagnosis Assessment Notes Treatment Notes Treatment Clinical Notes Sep, Abnormal skin growth (ICD-10 - D49.2) Will send to derm for further evaluation and treatment. Advised patient that area will likely need to be removed. Message sent to occupational health coordinator to schedule and make appointment for patient. Area covered with silvadine cream in office with non adherent telfa and coban. Advised patient not to pick at area. Immediate evaluation in ER for signs of infection, including, fever, red streaking, foul odor, any new or worsening symptoms. Patient verbalizes understanding and is agreeable with treatment plan [employer] Other 11-09-2021 Evaluation note* Encounter Date Diagnosis Assessment Notes Treatment Notes Treatment Clinical Notes Aug, Arthritis of left knee (ICD-10 - M17.12) Patient is progressing well. Continue physical therapy exercises and TKA precautions. Instructed patient to call with any questions or concerns. 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 [employer] Other Evaluation + Plan note Future Appointments Appointment Date:05/16/2022 10:00:00 AM Scheduled Provider: Location:[facility] Appointment Type:Urology CALL PAT FT Appointment Date:05/23/2022 02:30:00 PM Scheduled Provider: Location:[facility] Appointment Type:Urology FT [facility] Evaluation + Plan note Future Appointments Appointment Date:05/23/2022 02:30:00 PM Scheduled Provider: Location:[facility] Appointment Type:Urology FT [facility] Evaluation + Plan note Future Appointments Appointment Date:05/23/2022 02:30:00 PM Scheduled Provider: Location:[facility] Appointment Type:Urology FT Diagnostic Tests Pending * [facility]ments Appointment Date:06/22/2022 11:45:00 AM Scheduled Provider:Med JENKINS MD Location:[facility] Future Appointments Appointment Date:12/14/2022 11:15:00 AM Scheduled Provider:Med JENKINS MD Location:[facility] Appointment Type:URO Office Visit [facility] Evaluation + Plan note Future Appointments Appointment Date:08/16/2023 09:30:00 AM Scheduled Provider:Med JENKINS MD Location:[facility] Future Appointments Appointment Date:09/27/2023 01:00:00 PM Scheduled Provider:Med JENKINS MD Location:[facility] Appointment Type:URO Office Visit Diagnostic Tests Pending * Urine Culture [facility] Future Appointments Appointment Date:09/27/2023 01:00:00 PM Scheduled Provider:Med JENKINS MD Location:[facility] Appointment Type:URO Office Visit [facility] Evaluation + Plan note Future Appointments Appointment Date:10/31/2023 09:45:00 AM Scheduled Provider: Location:[place] [facility] Appointment Type:Urology CALL PAT FT Appointment Date:11/13/2023 02:45:00 PM Scheduled Provider: Location:[facility] Appointment Type:Urology FT [facility] Evaluation + Plan note Future Appointments Appointment Date:04/10/2024 10:00:00 AM Scheduled Provider: Location:[facility] Appointments Appointment Date:10/16/2024 01:00:00 PM Scheduled Provider:Med JENKINS MD Location:[facility] Appointment Type:URO Office Visit [facility] Evaluation noteNo Assessments Information Available [facility] note[facility] InformationN[facility] [employer] Other Evaluation noteNo assessment information available [facility] Work Phone: Evaluation note* Diagnosis Onset Date Resolution Status Hypomagnesemia acute CAD (coronary artery disease) chronic Hyperlipidemia chronic Hypokalemia resolved [facility] Work Phone: History and physical note Author Madhav Conrad [facility] August 02, 2022 12:52pm Note Date/Time August 02, 2022 12 :52pm [facility] [address] [place] [address] Gastroenterology H&P Signed Patient: Narciso Velasquez MR#: [id number] : 1940 Acct:[id number] Age/Sex: 81 / F Adm Date: 2 Loc: Room: Type: [facility] Attending Dr: Madhav Conrad MD Copies to: MD Seema Ribera, MANAGEMENT PLANNER-C~ Date of Service: 08/02/2022 HISTORY & PHYSICAL: [...] signed by Madhav Conrad MD> 08/02/22 1252 [facility] Work Phone: History general Narrative - [...] heart attack 11/2016 Hospitalization History SEE ABOVE [employer] Other Hospital course Narrative No data available for this section [facility] Hospital Discharge instructions No data available for this section [facility] Hospital Discharge instructions Additional Instructions DISCHARGE [...] NOT operate machinery such as power tools, Individual Digital mowers, [employer]ra[employer]ers, [employer] Coast Lithotripsying machines, etc. for 24 hours. - Avoid [...] Follow up with PCP. - Office number [phone].[facility] Work Phone: Progress note No data available for this section [facility] Summary Purpose Family History No Family [...] (D49.2) Referral Organization [facility] [address] Referring Provider First Name Alyssa Referring Provider Last Name Janee Referring Provider Specialty Nurse Pract itioner Referred Organization [facility] Referred Provider Castillo Mcgowan Thomas Referred Address ,[place], [place],[address] Referred Provider Specialty Dermatology Referral Priority Routine General Notes Xochitl Craig 021 02:26:04 PM >Received today and sent P2P even though the notes are not locked Additional Source Comments INFORMATION SOURCE (unrecogn ized section and content) DATE CREATED AUTHOR 04/19/2018 [facility] DATE CREATED AUTHOR AUTHOR'S ORGANIZ ATION 03/15/2020 [facility] DATE CREATED AUTHOR AUTHOR'S ORGANIZ ATION 12/01/2022 [facility] DATE CREATED AUTHOR AUTHOR'S ORGANIZ ATION 07/15/2023 [facility] DATE CREATED AUTHOR AUTHOR'S ORGANIZ ATION 07/22/2023 [facility] DATE CREATED AUTHOR AUTHOR'S ORGANIZ ATION 07/22/2023 [employer] DATE CREATED AUTHOR AUTHOR'S ORGANIZ ATION 04/13/2024 [place] [facility] DATE CREATED AUTHOR AUTHOR'S ORGANIZ ATION 06/15/2024 [facility] EPIC DATE CREATED AUTHOR AUTHOR'S ORGANIZ ATION 07/20/2024 [facility] DATE CREATED AUTHOR AUTHOR'S ORGANIZ ATION 07/21/[address] [facility] REASON FOR VISIT (unrecogniz ed section [...] BE BASED ON THE PRIMARY CLINICAL RECORDS. [facility], [facility]. provides no warranty or guarantee of the accuracy or completeness of information in this document.
[2024-08-08 07:42] VITALS: BP 112/63; PULSE 85; TEMP 36.9; O2SAT 94
[2024-08-08] MEDS: GABAPENTIN 300 MG CAPSULE 600 MG PO (08:24)
[2024-08-08] MEDS: ASPIRIN 81 MG TAB.CHEW PO (08:24)
[2024-08-08] MEDS: ATORVASTATIN CALCIUM 20 MG TABLET PO (08:24)
[2024-08-08] MEDS: TRIHEXYPHENIDYL HCL 2 MG TABLET PO (10:00)
[2024-08-08] MEDS: OXcarbazepine 150 MG TABLET PO (10:00)
--- NOTE | 2024-08-08 10:39 | CM.NOTE ---
Rounds made by Dr. Youngblood. Dr. Youngblood discussed labs, treatment plan and need for PT/OT to evaluate for any needs. Valerie verbalized understanding. Valerie lives at home w spouse. Currently open to but not SNF. PT/OT is to complete evaluation. Possible discharge later after PT/OT sees and makes recommendations.
[2024-08-08 11:00] VITALS: BP 107/67; PULSE 64; TEMP 36.4; O2SAT 94
[2024-08-08 12:02] VITALS: O2SAT 94
--- NOTE | 2024-08-08 12:23 | SWNOTE1 ---
SW went back in to speak with pt and . Therapy did recommend SNF. At this time pt is in observation status. SW did explain that Medicare does not pay for rehab if pt is in observation status. SW did review [employer] form yesterday. Pt and both voiced they do not want her to go to rehab at this time anyways. They do want HH. SW reviewed list from Medicare.gov with star ratings. Pt was falling asleep, pt's picked [facility]. Referral sent to [facility]. Referral included face sheet, ED note, H&P, provider notes, case management report, and PT/OT notes. SW updated nurse and doctor.
--- NOTE | 2024-08-08 12:47 | PM.DS1 ---
DS: Providers Provider Date of admission: 08/07/24 14:04 Primary care physician: Seema Sutherland NP Admitting clinician: Shaikh Ford Attending physician on admission: Shaikh Ford Consults: 08/07/24 13:21 Occupational Therapy Eval and Treat Routine Reason for consultation: Ambulatory dysfunction/weakness Physical Therapy Eval and Treat Routine Reason for consultation: Ambulatory dysfunction/weakness Attending physician on discharge: Shaikh Ford Discharging clinician: Shaikh Ford Anticipated date of discharge: 08/08/24 DS: Diagnosis Discharge Diagnosis (1) COVID-19: (2) Generalized weakness: (3) Viral gastroenteritis: (4) Parkinson disease: Qualifiers: Dyskinesia presence: with dyskinesia Fluctuating manifestations: without fluctuating manifestations Qualified Code(s): G20.B1 - Parkinson's disease with dyskinesia, without mention of fluctuations (5) CAD (coronary artery disease): Qualifiers: Coronary Disease-Associated Artery/Lesion type: [place] artery [place] vs. transplanted heart: [place] heart Associated angina: without angina Qualified Code(s): I25.10 - Atherosclerotic heart disease of [place] coronary artery without angina pectoris (6) Hypothyroid: Qualifiers: Hypothyroidism type: unspecified Qualified Code(s): E03.9 - Hypothyroidism, unspecified (7) Chronic pain disorder: (8) HLD (hyperlipidemia): Qualifiers: Hyperlipidemia type: unspecified Qualified Code(s): E78.5 - Hyperlipidemia, unspecified DS: Summary Hospital Course Hospital Course: 83-year-old female with history of Parkinson was sent by her primary care provider for generalized weakness and ongoing diarrhea for 2 to 3 days. Patient lives with her spouse who was having a difficult time taking care of her at home because of her increased weakness. Workup in ER revealed patient was positive for COVID but otherwise no acute finding on CT head, chest x-ray and CBC/CMP. She also had abnormal and seems to have recurrent episodes of UTI requiring oral abx. Patient was admitted for observation. She was treated with IVF for dehydration. Her diarrhea resolved on its own and she could not be tested for C diff. Patient was evaluated by PT/OT and their recommendation was to discharge patient for acute rehab. However, patient refused to go to inpatient rehab but was agreeable for home health. I will discharge her on oral decadron for COVID, oral ceftin for UTI. Urine cx is still pending and needs to be followed up as outpatient. Medically stable for discharge. Status at Discharge Functional status at discharge: uses cane/walker Overall status at discharge: patient is progressing back to baseline Time Spent with Patient Time attestation: Total time spent providing and/or coordinating discharge services: Time spent: greater than 30 minutes Exam Constitutional Vital Signs, click to edit/add: Last Vital Signs Temp 97.6 F 08/08/24 11:00 Pulse 64 08/08/24 11:00 Resp 12 08/08/24 11:00 BP 107/67 08/08/24 11:00 Pulse Ox 94 L 08/08/24 12:02 O2 Del Method Room Air 08/08/24 12:02 General appearance: cooperative, comfortable and frail appearing Nutritional appearance: underweight Respiratory Common normals: normal respiratory effort, no retractions, no use of accessory muscles and clear to auscultation bilaterally Cardio Common normals: regular rate, regular rhythm, S1 normal heart sound and S2 normal heart sound GI Common normals: Normal to inspection, nondistended, normoactive bowel sounds present, soft to palpation, non-tender and no hepatosplenomegaly Extremity Common normals: normal to inspection and full ROM Neuro Common normals: oriented x3, moves all extremities and no focal motor deficits Psych Common normals: mental status grossly normal, thought process normal, denies homicidal ideation and denies suicidal ideation DS: Data Data Completed and Pending Labs on day of discharge: Labs from last 24 hours 08/08/24 08/07/24 08/07/24 06:00 22:44 17:10 WBC 6.1 RBC 3.06 L Hgb 9.8 L Hct 30.3 L MCV 99.0 MCH 32.0 MCHC 32.3 RDW 13.4 Plt Count 163 MPV 9.5 Neut % (Auto) 66.7 Lymph % (Auto) 20.3 L [place] % (Auto) 9.5 Eos % (Auto) 2.8 Baso % (Auto) 0.5 Neut # (Auto) 4.1 Lymph # (Auto) 1.2 [place] # (Auto) 0.6 Eos # (Auto) 0.2 Baso # (Auto) 0.0 Abs Immat Gran (auto) 0.01 Imm/Tot Granulo (auto) 0.2 Sodium 141 Potassium 3.9 Chloride 104 Carbon Dioxide 26.5 Anion Gap 14.4 BUN 13.0 Creatinine 0.89 Est GFR ( Amer) >60 Est GFR (Non-Af Amer) >60 BUN/Creatinine Ratio 14.6 Glucose 86 Lactate Calcium 5.9 L* Total Bilirubin 0.5 AST 20 ALT 15 Alkaline Phosphatase 59 Troponin I High Sens Total Protein 5.3 L Albumin 2.5 L Globulin 2.8 Albumin/Globulin Ratio 0.9 Urine Color Yellow Urine Clarity Clear Urine pH 6.0 Ur Specific [place] 1.025 Urine Protein Negative Urine Glucose (UA) Negative Urine Ketones Trace A Urine Occult Blood Small A Urine Nitrite Positive A Urine Bilirubin Negative Urine Urobilinogen 0.2 Ur Leukocyte Esterase Small A Urine RBC 2-5 A Urine WBC 10-20 A Ur Squamous Epith Cells Few A Urine Crystals None seen Urine Bacteria Large A Urine Casts None seen Urine Mucus None seen Ur Culture Indicated? Yes SARS-CoV-2 Ag (CV2AG) C. difficile Toxin PCR Negative 08/07/24 08/07/24 12:41 12:15 WBC RBC Hgb Hct MCV MCH MCHC RDW Plt Count MPV Neut % (Auto) Lymph % (Auto) [place] % (Auto) Eos % (Auto) Baso % (Auto) Neut # (Auto) Lymph # (Auto) [place] # (Auto) Eos # (Auto) Baso # (Auto) Abs Immat Gran (auto) Imm/Tot Granulo (auto) Sodium 140 Potassium 3.4 L Chloride 102 Carbon Dioxide 27.5 Anion Gap 13.9 BUN 13.0 Creatinine 0.85 Est GFR ( Amer) >60 Est GFR (Non-Af Amer) >60 BUN/Creatinine Ratio 15.3 Glucose 97 Lactate 1.1 Calcium 6.8 L Total Bilirubin 0.5 AST 27 ALT 20 Alkaline Phosphatase 75 Troponin I High Sens 6.3 Total Protein 7.1 Albumin 3.5 Globulin 3.6 Albumin/Globulin Ratio 1.0 Urine Color Urine Clarity Urine pH Ur Specific [place] Urine Protein Urine Glucose (UA) Urine Ketones Urine Occult Blood Urine Nitrite Urine Bilirubin Urine Urobilinogen Ur Leukocyte Esterase Urine RBC Urine WBC Ur Squamous Epith Cells Urine Crystals Urine Bacteria Urine Casts Urine Mucus Ur Culture Indicated? SARS-CoV-2 Ag (CV2AG) Positive A C. difficile Toxin PCR Discharge Plan Discharge Disposition: Home Health Service Condition: Fair Discharge Medications: New dexamethasone 6 mg tablet 6 mg PO DAILY Qty: 9 0RF cefuroxime axetil 500 mg tablet 500 mg PO BID 7 Days Qty: 14 0RF Continued atorvastatin 20 mg tablet 20 mg PO DAILY calcitriol 0.5 mcg capsule 0.5 mcg PO DAILY gabapentin 300 mg capsule 900 mg PO BID hydroxychloroquine 200 mg tablet 200 mg PO BID levothyroxine 75 mcg tablet 75 mcg PO DAILY potassium chloride 20 mEq tablet,ER particles/crystals 20 meq PO DAILY pramipexole 0.25 mg tablet 0.25 mg PO BID trihexyphenidyl 2 mg tablet 2 mg PO BID Activity: increase activity as tolerated Diet: advance to your usual diet Print Language: Maori Patient Instructions: Weakness (MARY), COVID-19 (Coronavirus Disease 2019) (MARY) Forms: Portal Instructions Follow Up Appointments: follow up with Seema Little on August 19 @ 10am #
--- NOTE | 2024-08-08 14:10 | SWNOTE1 ---
[facility] called [facility] and they are able to accept. [facility] sent dc med rec and CRF to [facility]. [facility] let nurse know.
--- NOTE | 2024-08-13 14:16 | CM.DCFOLLOWU ---
Person spoke with:patient How are you feeling?well How is your pain?none Did you understand your discharge instructions?yes Do you have any questions about your discharge instructions?no Were you given any prescriptions at discharge?yes Were you able to get your prescriptions filled?yes Do you understand how to take your medications as ordered?yes Do you have any questions about your follow up appointment and do you plan to keep your follow up appointment? no questions, HH came to see her, follow ups reviewed Is there anything else that you would like to discuss?no Questions/Comments/Concerns/Other:none
== END 2024-08-08 15:06 | disposition home health service (06) ==
LOC: ER 13:35 → MS 14:10
PROVIDERS: Admitting Provider Internal Medicine; Emergency Provider Emergency Medicine; PCP Nurse Practitioner; Visit Provider Internal Medicine
DX: U07.1 COVID-19 (principal); R53.1 Weakness; K52.9 Noninfective gastroenteritis and colitis, unspecified; N39.0 Urinary tract infection, site not specified; G20.B1 Parkinson's disease with dyskinesia, without mention of fluctuations; I25.10 Atherosclerotic heart disease of native coronary artery without angina pectoris; E03.9 Hypothyroidism, unspecified; G89.4 Chronic pain syndrome; E78.5 Hyperlipidemia, unspecified; Z79.899 Other long term (current) drug therapy; Z79.890 Hormone replacement therapy; Z91.81 History of falling; B96.1 Klebsiella pneumoniae [K. pneumoniae] as the cause of diseases classified elsewhere
CPT/HCPCS: 36415; 51798; 70450; 71045; 80053; 81001; 83605; 84484; 85025; 87040; 87086; 87150; 87186; 87493; 87811; 93005; 94761; 96361; 96372; 96374; 97161; 97165; 99285; G0378; J1650; J2405

== ENCOUNTER 2024-08-23 09:13 | Inpatient (IN) | payer MEDICARE, SELFPAY ==
[2024-08-23] VITALS (31 sets, daily range): BP systolic 111–129; BP diastolic 68–76; PULSE 90–114; TEMP 36.9–37.5; O2SAT 91–100; BMI 20.9; BMI 20.5
--- NOTE | 2024-08-23 09:32 | ECG_ITS ---
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
--- NOTE | 2024-08-23 09:34 | ED_ITS ---
HPI - Nausea/Vomiting/Diarrhea General Chief complaint: Nausea/Vomiting/Diarrhea Stated complaint: GENERAL WEAKNESS Time Seen by Provider: 08/23/24 09:14 Source: patient Mode of arrival: Wheelchair Limitations: no limitations History of Present Illness HPI Narrative: 83-year-old female presents for nausea vomiting and diarrhea. She states last week she had COVID and for the past several days she has had these new symptoms. No fever or hematemesis. She continues to eat and drink. She does not complain to me of abdominal pain. Related Data Home Medications ?Medication ?Instructions ?Recorded ?Confirmed atorvastatin 20 mg tablet 20 mg PO DAILY 08/07/24 08/07/24 calcitriol 0.5 mcg capsule 0.5 mcg PO DAILY 08/07/24 08/07/24 gabapentin 300 mg capsule 900 mg PO BID 08/07/24 08/07/24 hydroxychloroquine 200 mg tablet 200 mg PO BID 08/07/24 levothyroxine 75 mcg tablet 75 mcg PO DAILY 08/07/24 08/07/24 potassium chloride 20 mEq 20 meq PO DAILY 08/07/24 tablet,extended release(part/cryst) pramipexole 0.25 mg tablet 0.25 mg PO BID 08/07/24 08/07/24 trihexyphenidyl 2 mg tablet 2 mg PO BID 08/07/24 Previous Rx's ?Medication ?Instructions ?Recorded cefuroxime axetil 500 mg tablet 500 mg PO BID 7 days #14 tabs 08/08/24 dexamethasone 6 mg tablet 6 mg PO DAILY #9 tabs 08/08/24 Allergies Allergy/AdvReac Type Severity Reaction Status Date / Time No Known Drug Allergies Allergy Verified 08/07/24 11:58 Review of Systems ROS Narrative A ten point review of systems is negative except as noted above. [facility] Medical History (Updated 08/23/24 @ 11:17 by Elton Rich MD) Hypothyroid ?E03.9 - Hypothyroidism, unspecified (ICD-10) Chronic pain disorder ?G89.4 - Chronic pain syndrome (ICD-10) HLD (hyperlipidemia) ?E78.5 - Hyperlipidemia, unspecified (ICD-10) CAD (coronary artery disease) ?I25.10 - Atherosclerotic heart disease of [place] coronary artery without angina pectoris (ICD-10) Parkinson disease ?G20.A1 - Parkinson's disease without dyskinesia, without mention of fluctuations (ICD-10) High cholesterol ?E78.00 - Pure hypercholesterolemia, unspecified (ICD-10) CVA (cerebral vascular accident) ?I63.9 - Cerebral infarction, unspecified (ICD-10) Surgical History (Updated 08/07/24 @ 13:59 by Melissa San RN) History of bowel resection ?Z90.49 - Acquired absence of other specified parts of digestive tract (ICD- 10) H/O heart artery stent ?Z95.5 - Presence of coronary angioplasty implant and graft (ICD-10) Family History (Updated 08/07/24 @ 15:45 by Tanvi Boles) Father Family history of myocardial infarction Social History (Updated 08/07/24 @ 15:45 by Tanvi Boles) Within the past year, how often did you have a drink containing alcohol: never Within the past year, how often did you have six or more drinks on one occasion: never Score interpretation: A score less than 3 is consistent with normal alcohol consumption. Smoking status: Never smoker Second hand tobacco smoke exposure: No Non-prescribed substance use: denies use Previous occupational history: Retired from [employer] Known occupational exposures/hazards: No Highest level of school completed/degree received: GED or equivalent Are you now , , , , never or living with a partner: In a typical week, how many times do you talk on the telephone with family, friends, or neighbors: 3 or more times per week How often do you get together with friends or relatives: 3 or more times per week How often do you attend mosque or yazidism services: 4 or more times per year Do you belong to any clubs or organizations such as mosque groups unions, fraternal or athletic groups, or school groups: no Total score: 3 Score interpretation: A score of greater than or equal to 2 indicates the lowest level of social isolation. Little interest or pleasure in doing things: not at all Feeling down, depressed, or hopeless: not at all Feel stressed/tense/nervous/anxious/difficulty sleeping: not at all Due to disability, difficulty making decisions: No Do you think of yourself as: straight/heterosexual Gender Identity: female Exam Narrative Exam Narrative: Nurses note and vital signs reviewed and patient is not hypoxic. General: The patient appears in no apparent distress. Patient is resting comfortably on cart. Skin: Warm, dry, no pallor noted. There is no rash noted. Head: Normocephalic, atraumatic Eye: Normal conjunctiva, no drainage, EOMI. PERRL Ears, Nose, Mouth, and Throat: oral mucosa is moist. Nares patent. She is edentulous Cardiovascular: Regular Rate and Rhythm Respiratory: Patient is in no distress, no accessory muscle use, lungs are clear to auscultation, no wheezing, rales or rhonchi Back: non-tender GI: Soft and nontender Musculoskeletal: The patient has no evidence of calf tenderness, no pitting edema, symmetrical pulses noted bilaterally Neurological: Awake and alert; difficult to understand her speech because she is edentulous. Psychiatric: Cooperative Constitutional Vital Signs, click to edit/add: Last Vital Signs Temp 98.5 F 08/23/24 09:21 Pulse 113 H 08/23/24 09:21 Resp 20 08/23/24 09:21 BP 129/72 08/23/24 09:21 Pulse Ox 94 L 08/23/24 10:14 O2 Del Method Room Air 08/23/24 10:14 Course Vital Signs Vital signs: Vital Signs Temperature 98.5 F 08/23/24 09:21 Pulse Rate 113 H 08/23/24 09:21 Respiratory Rate 20 08/23/24 09:21 Blood Pressure 129/72 08/23/24 09:21 Pulse Oximetry 94 L 08/23/24 09:21 Oxygen Delivery Method Room Air 08/23/24 09:21 Temperature 98.5 F 08/23/24 09:21 Pulse Rate 113 H 08/23/24 09:21 Respiratory Rate 20 08/23/24 09:21 Blood Pressure 129/72 08/23/24 09:21 Pulse Oximetry 94 L 08/23/24 10:14 Oxygen Delivery Method Room Air 08/23/24 10:14 MDM - Nausea/Vomiting/Diarrhea MDM Narrative Medical decision making narrative: The patient is found to have hypocalcemia and hypokalemia. CT scan of her abdomen is pending as are stool cultures and C. difficile test. She is being admitted. Findings discussed with the patient and her family. Differential Diagnosis Differential diagnosis: Likely traveler's diarrhea, gastroenteritis and dehydration Lab Data Attestation: I reviewed the patient's lab results. Labs: Lab Results 08/23/24 Range/Units 09:37 WBC 11.9 H (4.0-11.0) 10^3/uL RBC 3.60 L (4.20-5.40) 10^6/uL Hgb 11.4 L (12.0-16.0) g/dL Hct 34.5 L (36.0-48.0) % MCV 95.8 (81.0-99.0) fL MCH 31.7 (26.7-34.0) pg MCHC 33.0 (29.9-35.2) g/dL RDW 13.2 (11.0-15.0) % Plt Count 269 (150-450) 10^3/uL MPV 9.3 L (9.5-13.5) fL Neut % (Auto) 85.9 H (43.0-75.0) % Lymph % (Auto) 7.8 L (20.5-60.0) % [place] % (Auto) 4.6 (1.7-12.0) % Eos % (Auto) 0.4 L (0.9-7.0) % Baso % (Auto) 0.3 (0.2-2.0) % Neut # (Auto) 10.2 H (1.4-6.5) 10^3/uL Lymph # (Auto) 0.9 L (1.2-3.8) 10^3/uL [place] # (Auto) 0.6 (0.3-0.8) 10^3/uL Eos # (Auto) 0.1 (0.0-0.7) 10^3/uL Baso # (Auto) 0.0 (0.0-0.1) 10^3/uL Abs Immat Gran (auto) 0.12 H (0.00-0.03) 10^3/uL Imm/Tot Granulo (auto) 1.0 H (0.0-0.5) % Sodium 142 (136-145) mmol/L Potassium 2.7 L* (3.5-5.1) mmol/L Chloride 100 (98-107) mmol/L Carbon Dioxide 26.4 (21.0-32.0) mmol/L Anion Gap 18.3 BUN 23.0 H (7.0-18.0) mg/dL Creatinine 1.21 H (0.55-1.02) mg/dL Est GFR ( Amer) 51 L (>=60 mL/min/1.73m^2) Est GFR (Non-Af Amer) 42 L (>=60 mL/min/1.73m^2) BUN/Creatinine Ratio 19.0 Glucose 99 (74-106) mg/dL Calcium 6.6 L (8.5-10.1) mg/dL ECG Data Attestation: I personally reviewed and interpreted this ECG as follows: (EKG on my interpretation shows sinus tachycardia with a rate of 110) Discharge Plan Discharge Chief Complaint: Nausea/Vomiting/Diarrhea Clinical Impression: Generalized weakness, Diarrhea, Hypocalcemia, Hypokalemia Patient Disposition: Admitted As Inpatient Time of Disposition Decision: 11:16 Condition: Fair Prescriptions / Home Meds: No Action atorvastatin 20 mg tablet 20 mg PO DAILY calcitriol 0.5 mcg capsule 0.5 mcg PO DAILY gabapentin 300 mg capsule 900 mg PO BID hydroxychloroquine 200 mg tablet 200 mg PO BID levothyroxine 75 mcg tablet 75 mcg PO DAILY potassium chloride 20 mEq tablet,ER particles/crystals 20 meq PO DAILY pramipexole 0.25 mg tablet 0.25 mg PO BID trihexyphenidyl 2 mg tablet 2 mg PO BID dexamethasone 6 mg tablet 6 mg PO DAILY Qty: 9 0RF cefuroxime axetil 500 mg tablet 500 mg PO BID 7 Days Qty: 14 0RF Print Language: Estonian Referrals: Seema Sutherland NP [Primary Care Provider] - 1 week
--- OUTSIDE RECORDS SUMMARY | 2024-08-23 09:35 | XMS_ITS | CCD ---
Author Organization [facility] Care Team Providers Care Authorization Rep Name Role Phone DONNA TURCIOS Unavailable Unavailable CARIE REINA Unavailable Unavailable Bean Cantu Primary Care Provider Puneet Raymundo Attending Provider Curtis Alcocer Attending Provider Pratik Tadeo Unavailable Unavailable Unavailable Giovanny, Aba Unavailable Carie Keith Unavailable Alyssa Weller Unavailable PRATIK TADEO Primary Care Physician Unavailable Unavailable MD Madhav Conrad Attending Provider Seema Sutherland Primary Care Provider Madhav Conrad Unavailable RODERICK KONG Attending Unavailable RODERICK KONG Admitting Unavailable RODERICK KONG Consulting Unavailable DR PRATIK TADEO Primary Care Unavailable GIOVANNY, ABA Attending Unavailable DR PRATIK TADEO Primary Care Unavailable GIOVANNY, ABA Consulting Unavailable GIOVANNY, ABA Admitting Unavailable GIOVANNY, ABA Attending Unavailable DR PRATIK TADEO Primary Care Unavailable GIOVANNY, ABA Consulting Unavailable GIOVANNY, ABA Admitting Unavailable AICHHOLZ, FLAME CHANNELER SEEMA Consulting Unavailable DR PRATIK TADEO Primary Care Unavailable AICHHOLZ, FLAME CHANNELER SEEMA Admitting Unavailable AICHHOLZ, FLAME CHANNELER SEEMA Attending Unavailable ZOEY, DR JAYLEEN Manzo Consulting Unavailable TURCIOS, DR DONNA Deleon Admitting Unavailable TURCIOS, DR DONNA Deleon Attending Unavailable TURCIOS, DR DONNA Deleon Consulting Unavailable AICHHOLZ, FLAME CHANNELER SEEMA Primary Care Unavailable AICHHOLZ, FLAME CHANNELER SEEMA Consulting Unavailable AICHHOLZ, FLAME CHANNELER SEEMA Primary Care Unavailable AICHHOLZ, FLAME CHANNELER SEEMA Admitting Unavailable AICHHOLZ, FLAME CHANNELER SEEMA Attending Unavailable AICHHOLZ, FLAME CHANNELER SEEMA Primary Care Unavailable GIOVANNY, ABA Attending Unavailable GIOVANNY, ABA Consulting Unavailable GIOVANNY, ABA Admitting Unavailable Aichholz, Seema J Primary Care Provider MD Curtis Alcocer Attending Provider Aicjeannie, Seema J Primary Care Unavailable Madhav Conrad Attending Unavailable Madhav Conrad Admitting Unavailable Aichholumer, Seema J Primary Care Unavailable Curtis Alcocer Attending Unavailable Curtis Alcocer Admitting Unavailable Madhav Conrad Attending Unavailable Madhav Conrad Admitting Unavailable Aichholumer, Seema J Primary Care Unavailable Donna Turcios Attending Unavailable Donna Turcios Referring Unavailable Naderer, Dr. Pratik Welsh Primary Care UnaDonna Blanco Attending Unavailable Donna Turcios Referring Unavailable Naderer, Dr. Pratik Welsh Primary Care Unavai lable Med JENKINS P Attending Unavailable COOK, Med P Admitting [...] Referring Unavailable COOK, Med P Attending Unavailable DONNA TURCIOS Attending Unavailable NADERERPRATIK Primary Care UnavailMELISSA Shearer Attending Unavailable AICHHOLZ, SEEMA J Primary Care Unavailable JACK VIVEROS Attending Unavailable JACK VIVEROS Referring Unavailable AICHHOLZ, SEEMA J Primary Care Unavailable AICHHOLZ, SEEMA Attending Unavailable DESTINEY DUDLEY Attending Unavailable SERGIO CABRAL Attending Unavailable SEEMA SUTHERLAND Attending Unavailable Koko BURKS, Seema Unavailable Sergio Cabral DO Unavailable Pratik Tadeo MD Primary Care Provider Allergies Allergy Classification Reported Allergen(s) Allergy Type Date of Onset Reaction(s) Facility Opioid Agonists (2 sources) Morphine Drug Allergy 02-18-20 21 Hallucinating [facility] (7 sources) Morphine Derivatives; Translations: [Morphine Derivatives] Allergy to drug (finding) Other -[facility] DO Work Phone: (11 sources) fesoterodine Drug Allergy 03-07-20 24 dizziness/light hearded [facility] (19 sources) Morphine; Translations: [MORPHINE] Drug Allergy 01-16-20 18 hallucinations, Hallucinating, Hallucinating, hallucinations [facility] (1 source) Morphine Drug Allergy [facility] (1 source) Morphine Drug Allergy 03-09-20 21 [facility] (4 sources) Fesoterodine fumarate Allergy to substance 03-07-20 [facility] Work Phone: (4 sources) Morphine And Codeine Propensity to adverse reactions 07-25-20 23 [facility] Healthcare Medications Current Medications Medication Drug Class(es) Dates Sig (Normalized) Sig (Original) Acetaminophen (13 sources) Start: 07-16-2019 acetaminophen Refills(s) 0 Start Date: 07/16/19 Status: Ordered aMILoride hydrochloride 5 mg oral tablet (20 sources) Potassium-sparin g Diuretic Start: 03-07-2024 aMILoride (Midamor) 5 MG tablet .COMPLEX 03/07/2024 Active Start: 01-06-2024 End: 03-07-2024 take 1 tablet by mouth once daily at mealtime Amiloride Active 0 .ROUTE .COMPLEX March 07, 2024 12:00pm TAKE 1 TABLET BY MOUTH WITH FOOD ONCE DAILY Start: 12-01-2022 End: 01-06-2024 amiloride 5 mg oral tablet Refills(s) 0 Start Date: 04/12/23 Status: Ordered atorvastatin 20 mg oral tablet (20 sources) HMG-CoA Reductase Inhibitor Start: 02-09-2018 take 1 tablet by mouth once daily atorvastatin 20 mg Tab 20 mg = 1 tab(s), Oral, Daily, Refills(s) 0 Start Date: 08/09/21 Status: Ordered biotin 1 mg chewable tablet (4 sources) Biotin 1000 MCG chewable tablet Chew. Active calcitriol 0.0005 mg oral capsule (20 sources) [...] 2021 10:23am take 1 capsule by mo ut once daily Calcitriol 0.5 MCG TAKE 1 [...] meal Orally bid for 90 day(s) Active Calcium Carbonate (2 sources) End: 08-07-2024 Calcium Carbonate (CALCIUM 600 PO) Take by mouth. 08/07/2024 Discontinued (Therapy completed) calcium carbonate 600 mg / cholecalciferol 0.01 mg oral tablet (10 sources) Vitamin D Start: 03-07-2024 Calcium Carb-Cholecalciferol 600-10 MG-MCG tablet 1 tablet 03/07/2024 Active Start: 02-17-2021 End: 03-07-2024 take 1 tablet by mouth once daily Calcium Carbonate-Vitamin D3 Active 1 TAB PO Daily March 07, 2024 12:00pm cefuroxime 250 mg oral tablet (4 sources) Cephalosporin Antibacterial Start: 12-01-2022 take 1 tablet by mouth every twelve hours Cefuroxime Axetil 250 MG 1 tablet Orally every 12 hrs for 5 day(s) Nov, Active cephalexin 500 mg oral capsule (11 sources) Cephalosporin Antibacterial Start: 11-13-2023 End: 11-18-2023 take 1 capsule by mouth every twelve hours cephalexin 500 mg Cap 500 mg = 1 cap(s), Oral, q12hr, X 5 day(s), # 10 cap(s), Refills(s) 0, Pharmacy: [facility] [id number], 144, cm, 09/27/23 13:10:00 EST, Height/Length Dosing, 49, kg, 09/27/23 13:10:00 EST, Weight Dosing Start Date: 11/13/23 Stop Date: 11/18/23 Status: Ordered Start: 09-27-2023 take 1 capsule by [facility] twice daily Keflex 500 mg Cap 500 mg = 1 cap(s), Oral, BID, start one day prior to procedure., # 14 cap(s), Refills(s) 0, Pharmacy: [facility] [id number], 144, cm, 09/27/23 13:10:00 EST, Height/Length Dosing, 49, kg, 09/27/23 13:10:00 EST, Weight Dosing Start Date: 09/27/23 Status: Ordered Start: 08-16-2023 take 1 capsule by [facility] twice daily Keflex 500 mg Cap 500 mg = 1 cap(s), Oral, BID, # 14 cap(s), Refills(s) 0, Pharmacy: [facility] [id number], 144, cm, 08/16/23 10:03:00 EDT, Height/Length Dosing, 49, kg, 08/16/23 10:03:00 EDT, Weight Dosing Start Date: 08/16/23 Status: Ordered Start: 05-19-2022 End: 05-29-2022 take 1 capsule by mouth twice daily Keflex 500 mg Cap 500 mg = 1 cap(s), Oral, BID, X 10 day(s), # 20 cap(s), Refills(s) 0, Pharmacy: [facility] [id number], 144, cm, 05/19/22 14:08:00 EDT, Height/Length Dosing, 49, kg, 05/11/22 11:21:00 EDT, Weight Dosing Start Date: 05/19/22 Stop Date: 05/29/22 Status: Ordered Start: 05-11-2022 take 1 capsule by mo uth twice daily Keflex 500 mg Cap 500 mg = 1 cap(s), Oral, BID, Pt. to start 3 days prior to bladder botox injections, # 14 cap(s), Refills(s) 0, Pharmacy: [facility] [id number], 144, cm, 05/11/22 11:21:00 EDT, Height/Length Dosing, 49, kg, 05/11/22 11:21:00 EDT, Weight Dosing Start Date: 05/11/22 Status: Ordered ciprofloxacin 500 mg oral tablet (3 sources) Quinolone Antimicrobial Start: 11-13-2023 Cipro 500 mg Tab 500 mg = 1 tab(s), Oral, BID, Take twice daily x5 days starting the day prior to the procedure, # 10 tab(s), Refills(s) 0, Pharmacy: [facility] [id number], 144, cm, 09/27/23 13:10:00 EST, Height/Length Dosing, 49, kg, 09/27/23 13:10:00 EST, Weight Dosing Start Date: 11/13/23 Status: Ordered diclofenac sodium 0.01 mg/mg topical gel (15 sources) Nonsteroidal Anti-inflammatory Drug Start: 03-07-2024 diclofenac sodium 1 % gel As Directed 03/07/2024 Active Start: 03-07-2024 Diclofenac Sod ium (Voltaren Arthritis Pain) 1 % gel Active 2 GM TOPICAL As Directed March 07, 2024 12:00am Voltaren 1 % as directed Externally Active folic acid 1 mg oral tablet (4 sources) folic acid (Folv ite) 1 MG tablet 1 (one) time each day at the same time Active gabapentin 100 mg oral capsule (20 sources) Anti-epileptic Agent Start: 03-07-2024 take 300 mg by mouth twice daily Gabapentin Active 300 MG PO Twice daily March 07, 2024 11:46am Start: 02-29-2024 take 2 capsules by m outh twice daily gabapentin (Neurontin) 300 MG capsule Indications: Neuropathic pain TAKE 2 CAPSULES BY MOUTH TWICE DAILY 360 capsule 3 02/29/2024 Active Start: 02-17-2021 End: 03-07-2024 gabapentin 100 mg [...] 2 capsule Orally TWICE A DAY Active hydroxychloroquine sulfate 200 mg oral tablet (5 sources) Antimalarial, Antirheumatic Agent hydroxychloroquine (Plaquenil) 200 MG tablet as directed Orally Active hydrOXYzine pamoate 25 mg oral capsule (20 sources) Antihistamine Start: 03-10-20 End: 03-07-20 hydrOXYzine pamoate 25 mg Cap Refills(s) 0 [...] hours as needed muscle spasms levothyroxine sodium 0.075 mg oral tablet (20 sources) l-Thyroxine Start: 07-12-2024 End: 10-10-2024 take 1 tablet by mouth before mealtime levothyroxine (Synthroid) 75 MCG tablet Indications: Hypothyroidism (acquired) (CMS/HCC) Take 1 tablet (75 mcg) by mouth in the morning. Take before meals. 90 tablet 07/12/2024 10/10/2024 Active Start: 05-05-2021 take 1 tablet by sumi th once daily levothyroxine 50 mcg (0.05 mg) [...] 12:00am magnesium oxide 500 mg oral tablet (20 sources) Start: 02-17-2021 End: 03-07-2024 take 500 mg by mouth once daily Magnesium Oxide Active 500 MG PO Daily March 07, 2024 12:01pm take 1 tablet by mouth in the mo rning magnesium oxide (Mag-Ox) 400 MG tablet Take 400 mg by mouth in the morning. Active methenamine hippurate 1000 mg oral tablet (7 sources) Start: 08-16-2023 take 0.5 g by mouth once daily methenamine hippurate 1 g oral tablet 0.5 gm = 0.5 tab(s), Oral, Daily, # 30 tab(s), Refills(s) 11, Pharmacy: [facility] [id number], 144, cm, 08/16/23 10:03:00 EDT, Height/Length Dosing, 49, kg, 08/16/23 10:03:00 EDT, Weight Dosing Start Date: 08/16/23 Status: Ordered Start: 04-12-2023 take 0.5 g by mouth once daily methenamine hippurate 1 g oral tablet 0.5 gm = 0.5 tab(s), Oral, Daily Start Date: 04/12/23 Status: Ordered Start: 01-31-2022 take 1 tablet by sumi th once daily methenamine mandelate 0.5 g oral tablet 0.5 gm = 1 tab(s), Oral, Daily, # 90 tab(s), Refills(s) 3, Pharmacy: [id number], 144, cm, 12/27/21 11:31:00 EST, Height/Length [...] BID, # 14 cap(s), Refills(s) 0, Pharmacy: [id number], 144, cm, 05/05/21 13:13:00 EDT, Height/Length Dosing, 43.1, kg, 05/05/21 13:13:00 EDT, Weight Dosing Start Date: 05/05/21 Status: Ordered nitroglycerin 0.4 mg sublingual tablet (20 sources) Nitrate Vasodilator Start: 02-18-20 Nitroglycerin Active 0.4 MG SUBLINGUAL every 5 to 15 minutes February 17, 2021 12:00am Start: 02-09-2018 End: 03-02-2018 Nitroglycerin Discontinued 0 .4 MG SUBLINGUAL every 5 to 15 minutes February 09, 2018 12:00am March 02, 2018 1:59pm One Daily Adults 50+ (6 sources) One Daily Adults 50+ Active OXcarbazepine 150 mg oral tablet (4 sources) Anti-epileptic Agent Start: 06-24-20 OXcarbazepine (Trileptal) 150 MG tablet Indications: Pain in both feet , Disturbance of skin sensation TAKE 1 TABLET BY MOUTH EVERY MORNING AND ONCE BEFORE BEDTIME 60 tablet 2 06/24/2024 Active polyethylene glycol 3350 18768 mg powder for oral solution (5 sources) Osmotic Laxative Start: 02-18-20 Polyethylene Glycol 3350 (Miralax) 17 gram/dose Powder Active 17 GM PO Daily February 17, 2021 12:00am microencapsulated potassium chloride 20 meq extended release oral tablet (15 sources) Start: 03-24-20 take 1 tablet by mouth every twenty-four hours Potassium Chloride ER 20 MEQ 1 tablet with food Orally Once a day for 90 day(s) February, Active Start: 03-10-2021 End: 03-07-2024 potassium chloride CR (Klor- Con M20) 20 MEQ ER tablet Daily 03/07/2024 Active pramipexole dihydrochloride 0.25 mg oral tablet (11 sources) Nonergot Dopamine Agonist Start: 07-26-2024 End: 08-25-2024 take 1 tablet by mouth in the morning, then take 1 tablet by mouth in the evening, then take 1 tablet by mouth at bedtime pramipexole (Mirapex) 0.25 MG tablet Indications: Parkinson's disease, unspecified whether dyskinesia present, unspecified whether manifestations fluctuate (CMS/HCC) Take 1 tablet (0.25 mg) by mouth in the morning and 1 tablet (0.25 mg) in the evening and 1 tablet (0.25 mg) before bedtime. 90 tablet 07/26/2024 08/25/2024 Active take 1 tablet by sumi th three times daily Pramipexole Dihydrochloride 0.125 MG Ora l Tablet TAKE 1 TABLET 3 TIMES DAILY. Quantity: 0 Refills: 0 Ordered: 29-Dec-2021 DO Active silver sulfADIAZINE 10 mg/ml topical cream (1 [...] 2018 12:00am take 2 tablets by mo [facility] once daily Trihexyphenidyl HCl - 2 MG [...] 1 - 2 TAB PO Q4H 40 7 March 10, 2021 March 07, 2024 11:47am Start: 03-02-2018 End: 02-17-2021 take 1 tablet by mouth every four hours Oxycodone-Acetaminophen Discontinued 1 T AB PO Q4H 30 7 March 02, 2018 12:00February 17, 2021 10:01am Start: 02-24-2018 End: 03-02-2018 [...] Discontinued 8 1 MG PO Twice daily March 02, 2018 12:00am February 17, 2021 [...] 2021 9:56am cholecalciferol 0.025 mg oral tablet (19 sources) Vitamin D Start: 03-02-2018 End: 02-17-2021 [...] 24, 2018 8:00am March 02, 2018 1:57pm take 1 tablet by sumi th in the morning cholecalciferol (Vitamin D-3) 125 MCG (5000 UT) tablet Take 5,000 Units by mouth in the morning. Active lisinopril 2.5 mg oral tablet (5 sources) Angiotensin Converting Enzyme Inhibitor Start: 02-09-2018 End: 03-02-2018 take 2.5 mg by mouth once daily at bedtime Lisinopril Discontinued 2.5 MG PO Daily at bedtime February 09, 2018 12:00am March 02, 2018 1:56pm 24 hr metoprolol succinate 25 mg extended release oral tablet (14 sources) beta-Adrenergic Hay Start: 03-02-2018 End: 02-17-2021 take 12.5 mg by mouth at bedtime Metoprolol Succinate Discontinued 12.5 MG PO Bedtime March 02, 2018 12:00am February 17, 2021 10:01am Start: 02-09-2018 End: 03-02-2018 take 25 mg by mouth at bedtime Metoprolol Succinate Di scontinued 25 MG PO Bedtime February 09, 2018 12:00am March 02, 2018 1:59pm metoprolol succi selena XL (Toprol-XL) 25 MG 24 hr tablet 1 (one) time each day at the same time Active omeprazole 40 mg delayed release oral capsule [...] Ondansetron Discontinued 4 MG PO Q6H 40 10 March 02, 2018 12:00am February 17, 2021 10:01am predniSONE 5 mg oral tablet (19 sources) Start: 02-17-2021 End: 03-07-2024 take 5 [...] mcg Tablet Discontinued 500 MCG PO Daily 30 March 02, 2018 12:00am February 17, [...] abdominal pain] Onset: 04-20-2022 07-04-2019 Episodic Acute cerebrovascular disease (4 sources) Cerebral embolism; Translations: [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] Onset: 03-20-2024 03-20-2024 Chronic Acute myocardial infarction (17 sources) Myocardial infarction; Translations: [Acute myocardial infarction due to left coronary artery occlusion] Onset: 04-06-2022 07-04-2019 Chronic Administrative/social admission (5 sources) Other reduced mobility; Translations: [Impaired mobility and activities of daily living] 04-16-2018 Episodic Calculus of urinary tract (13 sources) Kidney stone 04-27-2020 Episodic Coronary atherosclerosis and other heart disease (20 sources) Coronary arteriosclerosis; Translations: [Atherosclerotic heart disease of circle coronary artery without angina pectoris] Onset: 03-24-2022 04-16-2018 Chronic Deficiency and other anemia (5 sources) Anemia; Translations: [Anemia, unspecified] 04-16-2018 Episodic Disorders of lipid metabolism (20 sources) Hyperlipidemia; Translations: [Hyperlipidemia, unspecified] Onset: 03-24-2022 04-16-2018 Chronic E Codes: Fall (1 source) Fall Onset: 07-18-2024 Essential hypertension (11 sources) Hypertensive disorder; Translations: [Essential (primary) hypertension] Onset: 04-06-2022 04-16-2018 Chronic Fracture of upper limb (4 sources) Nondisplaced fracture of lateral end of right clavicle, initial encounter for closed fracture; Translations: [Closed fracture of acromial end of right clavicle] Onset: 07-18-2024 08-07-2024 Episodic Gastritis and duodenitis (4 sources) Gastritis; Translations: [Gastritis, unspecified, without bleeding] Episodic Gastrointestinal hemorrhage (10 sources) Rectal hemorrhage; Translations: [Hemorrhage of anus and rectum] Episodic Genitourinary symptoms and ill-defined conditions (20 sources) Incontinence without sensory awareness; Translations: [Urge incontinence] Onset: 05-11-2022 Chronic Malaise and fatigue (4 sources) Chronic fatigue syndrome; Translations: [Chronic fatigue syndrome] Onset: 04-06-2022 03-11-2024 Chronic Miscellaneous mental health disorders (4 sources) Primary insomnia; Translations: [Primary insomnia] Onset: 03-11-2024 03-11-2024 Chronic Mood disorders (6 sources) Mild major depression, single episode; Translations: [Major depressive disorder, single episode, mild] Onset: 03-11-2024 03-11-2024 Chronic Nonspecific chest pain (4 sources) Chest pain, unspecified; Translations: [Chest pain] Onset: 01-29-2018 03-08-2021 Episodic Nutritional deficiencies (20 sources) Vitamin D deficiency; Translations: [Vitamin D [...] [Personal history of colonic polyps] Episodic Other connective tissue disease (17 sources) History of total knee arthroplasty; Translations: [Presence of right artificial knee joint] Onset: 03-11-2024 03-10-2021 Chronic Other connective tissue disease (10 sources) History of left total knee replacement; Translations: [Presence of left artificial knee joint] Chronic Other connective tissue disease (1 source) Presence of left artificial knee joint Onset: 09-07-2021 Resolved: 09-07-2021 Chronic Other diseases of bladder and urethra (20 sources) Overactive bladder; Translations: [Overactive bladder] Onset: 03-11-2024 08-26-2020 Chronic Other diseases of bladder and urethra (3 sources) Detrusor overactivity; Translations: [Overactive bladder] Onset: 08-16-2023 Chronic Other endocrine disorders (17 sources) Idiopathic hypoparathyroidism; Translations: [Idiopathic hypoparathyroidism] Onset: 04-06-2022 03-07-2024 Chronic Other endocrine disorders (3 sources) Idiopathic hypoparathyroidism; Translations: [IDIOPATHIC HYPOPARATHYROIDISM] Onset: 09-02-2021 Resolved: 03-24-2022 Chronic Other endocrine disorders (4 sources) Hyperparathyroidism; Translations: [Hyperparathyroidism, unspecified] Onset: 04-06-2022 03-11-2024 Chronic Other fractures (2 sources) Closed fracture of acromial end of clavicle; Translations: [Nondisplaced fracture of lateral end of right clavicle, subsequent encounter for fracture with routine healing] 08-07-2024 Episodic Other gastrointestinal disorders (10 sources) Diarrhea; Translations: [Diarrhea, unspecified] Episodic Other gastrointestinal disorders (1 source) Other specified symptoms and signs involving the digestive system and abdomen Episodic Other gastrointestinal disorders (5 sources) Diarrhea of presumed infectious origin; Translations: [Diarrhea, unspecified] Onset: 08-07-2024 08-07-2024 Episodic Other injuries and conditions due to [...] [Other acute postprocedural pain] 04-16-2018 Episodic Other non-traumatic joint disorders (10 sources) Knee pain; Translations: [Pain in right knee] Episodic Other nutritional; endocrine; and metabolic disorders (16 sources) Hypocalcemia; Translations: [Hypocalcemia] Onset: 06-01-2012 Chronic Other nutritional; endocrine; and metabolic disorders (15 sources) Hypomagnesemia; Translations: [Hypomagnesemia] Onset: 03-11-2024 03-07-2024 Chronic Other nutritional; endocrine; and metabolic disorders (6 sources) Hypocalcemia; Translations: [HYPOCALCEMIA] Onset: 09-02-2021 Resolved: 03-24-2022 Chronic Other nutritional; endocrine; and metabolic disorders (6 sources) Hypomagnesemia; Translations: [Disorders of magnesium metabolism] Onset: 09-02-2021 Resolved: 03-24-2022 Chronic Other nutritional; endocrine; and metabolic disorders (1 source) Lipoprotein deficiency; Translations: [LIPOPROTEIN DEFICIENCY] Onset: 06-16-2022 Chronic Other nutritional; endocrine; and metabolic disorders (4 sources) Hypercalcemia; Translations: [Hypercalcemia] Onset: 03-11-2024 03-11-2024 Chronic Other nutritional; endocrine; and metabolic disorders (10 sources) Overweight; Translations: [Overweight] Episodic Other upper respiratory disease (4 sources) Chronic rhinitis; Translations: [Chronic rhinitis] Onset: 04-06-2022 03-11-2024 Chronic Paralysis (6 sources) Right hemiparesis; Translations: [Hemiplegia, unspecified affecting right dominant side] Onset: 03-20-2024 03-20-2024 Chronic Parkinson's disease (3 sources) Parkinson's disease; Translations: [Parkinson's disease without dyskinesia, without mention of fluctuations (Multi)] Onset: 01-29-2018 Parkinson`s disease (14 sources) Parkinson's disease; Translations: [Paralysis agitans] Onset: 03-24-2022 03-11-2024 Chronic Residual codes; unclassified (4 sources) Obstructive sleep apnea syndrome; Translations: [Obstructive sleep apnea (adult) (pediatric)] Onset: 03-11-2024 03-11-2024 Chronic Residual codes; unclassified (7 sources) Body mass index 20-24 - normal; Translations: [Body Mass Index between 19-24, adult] Episodic Residual codes; unclassified (13 sources) H/O: anticoagulant therapy 08-26-2020 Episodic Residual codes; unclassified (1 source) Early satiety Episodic Residual codes; unclassified (2 sources) Body mass index (BMI) 22.0-22.9, adult; Translations: [Body mass index (BMI) 22.0-22.9, adult] Onset: 07-18-2024 Episodic Rheumatoid arthritis and related disease (15 sources) Rheumatoid arthritis; Translations: [Rheumatoid arthritis] Onset: 08-18-2023 Chronic Thyroid disorders (20 sources) Hypothyroidism; Translations: [Hypothyroidism, unspecified] Onset: 07-16-2022 04-16-2018 Chronic Unclassified (2 sources) Chest pain, unspecified / R07.9(ICD-9) Onset: 01-29-2018 Unclassified (1 source) Athscl heart disease of circle coronary artery w/o ang pctrs / I25.10(ICD-9) [...] Problem Date Documented Da te Episodic/Chronic Abdominal hernia (4 sources) Disorder of abdominal wall; Translations: [Ventral hernia without obstruction or gangrene] Onset: 06-20-2013 03-11-2024 Episodic Allergic reactions (4 sources) Exogenous dermatitis; Translations: [Unspecified contact dermatitis due to other agents] Onset: 04-06-2022 03-11-2024 Episodic Conditions associated with dizziness or vertigo (8 sources) Dizziness and giddiness; Translations: [Dizziness] Onset: 07-11-2022 Episodic Coronary atherosclerosis and other heart disease (20 sources) Past history of procedure; Translations: [Percutaneous transluminal coronary angioplasty status] Onset: 06-16-2022 03-08-2021 Episodic Fluid and electrolyte disorders (16 sources) Hypokalemia; Translations: [Hypokalemia] Onset: 03-23-2022 Resolved: 03-24-2022 Episodic Genitourinary symptoms and ill-defined conditions (20 sources) Microscopic hematuria; Translations: [Asymptomatic microscopic hematuria] Onset: 05-11-2022 Episodic Inflammatory diseases of female pelvic organs (4 sources) Chronic vaginitis; Translations: [Subacute and chronic vaginitis] Onset: 04-06-2022 03-11-2024 Episodic Neoplasms of unspecified nature or uncertain behavior (1 source) Neoplasm of unspecified behavior of bone, soft tissue, and skin Onset: 10-18-2021 Resolved: 10-18-2021 Episodic Other aftercare (1 source) director targeted marketing (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 of aspirin; Translations: [RN LPN LVN CURRENT USE OF ASPIRIN] Onset: 03-24-2022 Episodic Other aftercare (1 source) Other longterm (current) drug therapy; Translations: [OTH LONGTERM CURRENT DRUG THERAPY] Onset: 03-24-2022 Episodic Other circulatory disease (9 sources) History of cerebrovascular accident; Translations: [Personal history of transient ischemic attack (TIA), and cerebral infarction without residual deficits] Onset: 03-11-2024 04-16-2018 Episodic Other circulatory disease (4 sources) Orthostatic hypotension; Translations: [Orthostatic hypotension] Onset: 03-20-2024 03-20-2024 Episodic Other connective tissue disease (4 sources) Pain in both feet; Translations: [Pain in right foot] Onset: 03-20-2024 4 Episodic Other gastrointestinal disorders (14 sources) Constipation; Translations: [Constipation, unspecified] Onset: 04-06-2022 03-11-2024 Episodic Other gastrointestinal disorders (1 source) Other constipation; Translations: [OTHER CONSTIPATION] Onset: 04-22-2022 Episodic Other gastrointestinal disorders (4 sources) Dysphagia; Translations: [Dysphagia, unspecified] Onset: 04-06-2022 03-11-2024 Episodic Other nervous system disorders (9 sources) Tremor; Translations: [Tremor, unspecified] Onset: 03-11-2024 04-16-2018 Episodic Other nervous system disorders (4 sources) Skin sensation disturbance; Translations: [Unspecified disturbances of skin sensation] Onset: 03-20-2024 03-20-2024 Episodic Other non-epithelial cancer of skin (4 sources) Squamous cell carcinoma of upper extremity; Translations: [Squamous cell carcinoma of skin of right upper limb, including shoulder] Onset: 04-06-2022 03-11-2024 Episodic Other screening for suspected conditions (not mental disorders or infectious disease) (4 sources) Mammography abnormal; Translations: [Other abnormal and inconclusive findings on diagnostic imaging of breast] Onset: 04-06-2022 03-11-2024 Episodic Residual codes; unclassified (13 sources) Patient encounter status; Translations: [Encounter for prophylactic measures, unspecified] Onset: 03-11-2024 04-16-2018 Episodic Residual codes; unclassified (4 sources) Early [...] Santo MD on 07/18/2024 10:01 PM Normal [facility] CT CERVICAL SPINE WO CONTon 07-18-2024 CT [...] Alfonso MD on 07/18/2024 10:01 PM Normal [facility] XR ELBOW RT MIN 3 VWSon 06-30 XR ELBOW RT MIN 3 VWS XR [...] Alfonso MD on 07/18/2024 10:05 PM Normal [facility] XR SHOULDER RT MIN 2 VWSon 0 [...] Alex Alfonso MD on 07/18/2024 10:02 PM Normal [facility] Lab Reportson 04-11-2024 Lab Reports [id number]#[id number] F Normal [facility] Ambulatory Visit Summaryon 0 04-10-2024 Ambulatory [...] Med JENKINS MD Where: [facility] [place] Normal [facility] Patient Educationon 04-10-20 24 Patient Education Urology Urinary Incontinence Urinary incontinence [...] stimulation). ? For women, using a biomedical service engineer to prevent urine leaks. This is a [...] ? (more content not included)... Normal [facility] Urology Office/Clinic Noteon 04-10-2024 Urology Office/Clinic Note [...] with voice recognition artificial intelligence software, specifically [employer], [employer] and or Architizer. Substitutions may have occurred due to the [...] Information TRINA WATSON, Med Hilario, URL [address] [place], [place] [address]- Additional Instructions: 6 mos Patient Education Urinary Incontinence I, Jenny Luna, personally scribed for Dr. Jenkins on 04/10/2024 10:25:32. . Documentation recorded by the scribe, Jenny Luna, accurately reflects the services(s) I performed and decisions made by me. Authenticated by Dr. Jenkins on 04/10/2024 10:26:50. 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 [facility] Comment on above: Result Comment: Elec tronically Signed By: Med JENKINS MD\.br\Date and Time Signed: 04/10/24 10:27 EDT\.br\Electronically Co-Signed By: Jenny Luna\.br\Date and Time Co-Signed: 04/10/24 10:25 EDT Consent for Procedure/Surger yon 03-13-2024 Consent for Procedure/Surgery [id number]#[id number] F [facility] Consent for Procedure/Surgery [id number]#[id number] FF [facility] Erythrocyte distribution wid th Auto (RBC) [Ratio]on 02-27-2024 Erythrocyte distribution width (RBC) [Ratio] 13.0 % 11.0-15.0 [facility] Estimated glomerular filtrat ion rate (GFR) non- Americanon 02-27-2024 GFR/1.73 sq M.predicted among non-blacks MDRD (S/P/Bld) [Vol rate/Area] 57 mL/min/{1.73_m2} >=60 [facility] Hematocrit Auto (Bld) [Volum e fraction]on 02-27-2024 Hematocrit (Bld) [Volume fraction] 37.0 % 36.0-48.0 [facility] Hemoglobin [Mass/volume] in Bloodon 02-27-2024 Hemoglobin (Bld) [Mass/Vol] 12.1 g/dL 12.0-16.0 [facility] Laboratory - Chemistry and C hemistry - challengeon 02-27-2024 Albumin [Mass/Vol] 3.5 g/dL 3.4-5.0 [facility] Calcium [Mass/Vol] 9.3 mg/dL 8.5-10.1 [facility] Chloride [Moles/Vol] 104 mmol/L 98-107 [facility] CO2 [Moles/Vol] 29.1 mmol/L 21.0-32.0 [facility] Creatinine [Mass/Vol] 0.94 mg/dL 0.55-1.02 [facility] GFR/1.73 sq M.predicted MDRD (S/P/Bld) [Vol rate/Area] mL/min/{1.73_m2} >=60 [facility] Glucose [Mass/Vol] 126 mg/dL 74-106 [facility] Magnesium [Mass/Vol] 1.7 mg/dL 1.8-2.4 [facility] Potassium [Moles/Vol] 4.1 mmol/L 3.5-5.1 [facility] Sodium [Moles/Vol] 141 mmol/L 136-145 [facility] Urea nitrogen [Mass/Vol] 28.0 mg/dL 7.0-18.0 [facility] Urea nitrogen/Creatinine [Mass ratio] 29.8 mg/mg [facility] Leukocytes [#/volume] correc db for nucleated erythrocytes in Blood by Automated counon 02-27-2024 WBC corrected for nucl RBC Auto (Bld) [#/Vol] 9.9 10 3/uL 4.0-11.0 [facility] MCH Auto (RBC) [Entitic mass ]on 02-27-2024 MCH (RBC) [Entitic mass] 32.6 pg 26.7-34.0 [facility] MCHC Auto (RBC) [Mass/Vol]on 02-27-2024 MCHC (RBC) [Mass/Vol] 32.7 g/dL 29.9-35.2 [facility] MCV Auto (RBC) [Entitic vol] on 02-27-2024 MCV (RBC) [Entitic vol] 99.7 fL 81.0-99.0 [facility] No Panel Informationon 02-26 25-Hydroxy Vitamin D Total 34.4 ng/mL [facility] Comment on above: <20 ng/mL Vit D defi cient20-<30 ng/mL Vit D vwhvxthdzujm51-612 ng/mL Vit D sufficient>100 ng/mL Potential Toxicity Parathyroid Hormone (Intact) 3 pg/mL 15-65 [facility] Comment on above: Performed at: [facility] [address] [id number] Director: Conrado Gates PhD, Phone: [phone] Phosphorus Level 3.6 mg/dL 2.6-4.7 [facility] Platelet mean volume Auto (B ld) [Entitic vol]on 02-27-2024 Platelet mean volume (Bld) [Entitic vol] 9.4 fL 9.5-13.5 [facility] Platelets Auto (Bld) [#/Vol] on 02-27-2024 Platelets (Bld) [#/Vol] 196 10 3/uL 150-450 [facility] RBC Auto (Bld) [#/Vol]on RBC (Bld) [#/Vol] 3.71 10 6/uL 4.20-5.40 [facility] Serum or plasma anion gap de terminationon 02-27-2024 Anion gap [Moles/Vol] 12.0 mmol/L [facility] Consent for Treatmenton 01-29 Consent for Treatment [id number] FF Normal [facility] Inpatient Patient Summaryon 02-26-2024 Inpatient Patient Summary [place] [id number] Clinical Summary Person Information Name: NARCISO VELASQUEZ Age: 83 Years : 1940 Sex: Female PCP: PRATIK TADEO MD Marital Status: Race: White Ethnicity: Non- or Language: Turkmen Visit Id: Visit Reason: URINARY INCONTINENCE Speciality: Acuity: Enc Type: Outpatient Med Service: Surgery Arrival: 02/26/2024 12:39:14 Discharge: Dispo Type: Address: [address] [place] [phone] Provider Notes: Diagnosis: Problems Active Incontinence without sensory awareness Recurrent UTI Incomplete bladder emptying Stress incontinence UTI (urinary tract infection) Urinary retention UTI symptoms Overactive bladder Aspirin long-term use Weak urine stream Weak urinary stream Hx of longterm 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 thinners Mixed incontinence Frequency [...] MD Follow up: With: Address: When: Med TRINA Joe FENG, [address], [facility] [address] [place] [address] Business (1) Within 6 weeks Comments: Call for followup appointment, with a bladder scan at that visit to check for bladder emptying. Patient Education Information: EU - Cystoscopy with Botox Injection Discharge Instructions (Custom) [facility] IntraOperative Documentson 0 02-26-2024 IntraOperative Documents [id number] FF [facility] Main OR Intraoperative Recor don 02-26-2024 Main OR Intraoperative Record IntraOp Document Type FTURO Summary Primary Physician: Med JENKINS MD Finalized Date/Time: 02/26/24 13:43:34 Pt. Name: NARCISO VELASQUEZ/Sex: 1940 Female Med Rec #: [id number] Physician: Med JENKINS MD Financial #: [id number] Pt. 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 INJECTION Surgeon Description CYSTO 150 UNITS BOTOX Primary Procedure Yes Primary Surgeon Med JENKINS MD Start 02/26/24 13:33:00 Stop 02/26/24 13:46:00 Anesthesia Type Local Surgical Service Urology Wound Class 2 - Clean-Contaminated Last Modified By: MEE Bennett RNOR, Patricia 02/26/24 13:43:25 General Comments: botox 100 units out date03/24 lot [id number] botox 50 units outdate 12/25 lot [id number] General Case Data FTURO Pre-Care Text: Classifies surgical wound, implements aseptic technique, initiates traffic control Entry 1 Case Information OR URO 1 FT Case Level None Wound Class 2 - Clean-Contaminated Specialty Urology Preop Diagnosis URINARY INCONTINENCE Postop Same As Preop Yes Postop Diagnosis URINARY INCONTINENCE Outcomes Met? Yes Last Modified By: Sabrina PETERS, MEEOR, Patricia 02/26/24 13:00:40 Post-Care Text: The patient is [...] Position Verified Availability Equipment, Medication Time Out Sabrina PETERS, MEEOR, Verified (If Participants TRINA Gomez MD, Applicable) [...] JASPREET Bennett RN, Ruthann 02/26/24 13:43 Normal [facility] Main OR Preoperative Recordo n 02-26-2024 Main OR Preoperative Record Holding Area Document Type FTURO Summary Primary Physician: Med JENKINS MD Finalized Date/Time: 02/26/24 13:13:19 Pt. Name: RONNARCISO/Sex: 1940 Female Med Rec #: [id number] Physician: Med JENKINS MD Financial #: [id number] Pt. Type: O Room/Bed: / Admit/Disch: 02/26/24 [...] By: Dorie Logan RN 02/26/24 13:13 Normal [facility] Operative Reporton Operative Report Patient: STEPHANIA VELASQUEZ Age: 83 years Sex: Female : 1940 Associated Diagnoses: None Author: Med JENKINS MD Procedure Operative Information Details: Date/ Time: 02/26/2024 13:46:00. Pre-Op Dx: Overactive bladder (QBX15-EZ N32.81, Working, Medical), Urgency incontinence (MDJ85-AW N39.41, Working, Medical). Post-Op Dx: Same. Anesthesia [...] Follow up arranged, F/U six weeks. Normal [facility] Comment on above: Result Comment: Elec tronically Signed By: Med JENKINS MD\.br\Date and Time Signed: 02/26/24 13:51 EDT Outpatient Surgery Discharge Instructionon 02-26-2024 Outpatient Surgery Discharge Instruction [id number] FF Normal [facility] Outpatient Surgery Discharge Instruction [address] [address] Patient Discharge Instructions PERSON INFORMATION [...] Follow up: With: Address: When: Med JENKINS [address] [place] [address], [address], [address] [address] Business (1) Within 6 weeks Comments: Call [...] Date You may receive a survey from [employer] asking you to rate your care experience. Your feedback is important and will help us understand what we do well and how we can improve the quality of care we provide to you, your loved ones and our community. It?s an honor to serve you. Thank you for choosing [facility] Normal [facility] C Urineon 11-16-2023 Bacteria identified Cx [...] Locations R1: This test was performed at: [facility], [address] [place] [address], [address]- , [place], [facility] Comment on above: Performed By: #### [id number] ####[facility] [address] [place] [address] Consent for Treatmenton 10-30 Consent for Treatment [id number] F Normal [facility] Inpatient Patient Summaryon 11-13-2023 Inpatient Patient Summary [address] [address] Clinical Summary Person Information Name: NARCISO VELASQUEZ Age: 82 Years : 1940 Sex: Female PCP: PRATIK TADEO MD Marital Status: Race: White Ethnicity: Non- or Language: Turkmen Visit Id: Visit Reason: URINARY INCONTINENCE Speciality: Acuity: Enc Type: Outpatient Med Service: Surgery Arrival: 11/13/2023 13:31:33 Discharge: Dispo Type: Address: [address] [place] [phone] Provider Notes: Diagnosis: Problems Active Incontinence without sensory awareness Recurrent UTI Incomplete bladder emptying Stress incontinence UTI (urinary tract infection) Urinary retention UTI symptoms Overactive bladder Aspirin long-term use Weak urine stream Weak urinary stream Hx of longterm 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 thinners Mixed incontinence Frequency [...] Follow up: With: Address: When: Med JENKINS [address] [place] [address], [address], [place] [address] Business (1) Comments: As you know we [...] locally and the cranberry is self-explanatory. My rehabilitation aide/scheduler will call you to get you back on the books for the Botox injection. Patient Education Information: Franca [facility] Main OR Preoperative Recordo n 11-13-2023 Main OR Preoperative Record Holding Area Document Type FTURO Summary Primary Physician: Finalized Date/Time: 11/13/23 16:40:45 Pt. Name: RONNARCISO D.O.B./Sex: 1940 Female Med Rec #: [id number] Physician: Med JENKINS MD Financial #: [id number] Pt. Type: O Room/Bed: / Admit/Disch: 11/13/23 13:31:33 - Institution: Case Times Holding FTURO Pre-Care Text: Verifies consent for planned procedure, identifies individual values and wishes concerning care, includes family members in perioperative teaching Secures patient's records' belongings, and valuables, maintains patient's dignity and privacy, and maintains patient confidentiality Entry 1 In Holding 11/13/23 14:30:00 Outcomes Met? Yes Last Modified By: Sabrina PETERS, Patricia VOGEL 11/13/23 14:38:20 Post-Care Text: The patient participates [...] and he said they would call her hr coordinator right away [facility]. Finalized By: JASPREET Bennett RN, Ruthann Document Signatures Signed By: JASPREET Bennett RN, Ruthann 11/13/23 14:43 JASPREET Bennett RN, Ruthann 11/13/23 14:43 JASPREET Bennett RN, Ruthann 11/13/23 16:40 Normal [facility] Outpatient Surgery Discharge Instructionon 11-13-2023 Outpatient Surgery Discharge Instruction [address] [address] Patient Discharge Instructions PERSON INFORMATION [...] Follow up: With: Address: When: Med JENKINS [address] [place] [address], [address], [place] [id number] [facility] (1) Comments: As you know we [...] locally and the cranberry is self-explanatory. My rehabilitation aide/scheduler will call you to get you back on the books for the Botox injection. Comment: PATIENT EDUCATION INFORMATION Instructions: I, NARCISO VELASQUEZ, have received the attached patient education materials/instructions and have verbalized understanding: May we do a follow up call? Yes No I was present when discharge instructions were given Patient Signature Date Clinican/Nurse Signature Date You may receive a survey from [employer] asking you to rate your care experience. Your feedback is important and will help us understand what we do well and how we can improve the quality of care we provide to you, your loved ones and our community. It?s an honor to serve you. Thank you for choosing [facility] Normal [facility] Patient Educationon 11-13-19 Patient Education Normal [facility] Progress Note-Physicianon Progress Note-Physician Patient: NARCISO VELASQUEZ Age: 82 years Sex: Female : 1940 Associated Diagnoses: None Author: Med JENKINS MD ROS & PFSH Reviewed I have reviewed [...] procedure., # 14 cap(s), Refills(s) 0, Pharmacy: [facility] [id number], 144, cm, 09/27/23 13:10:00 EST, Height/Length Dosing, [...] All Problems Kidney stone / SNOMED CT 031694094 / Confirmed Incontinence without sensory awareness / SNOMED CT 1177807465 / Confirmed Weak urinary stream / SNOMED CT 7123787690 / Confirmed Urge incontinence of urine / SNOMED CT 815613114 / Confirmed Flank pain / SNOMED CT 803364557 / Confirmed Myocardial infarction / SNOMED CT 67392262 / Confirmed Nocturia / SNOMED CT 592408548 / Confirmed Urinary urgency / SNOMED CT 299985447 / Confirmed Hx of longterm 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 thinners / SNOMED CT 063496262 / Confirmed Urgency of urination / SNOMED CT 716471364 / Confirmed Urge incontinence / SNOMED CT 950962096 / Confirmed Dysuria / SNOMED CT 16826123 / Confirmed Asymptomatic microscopic hematuria / SNOMED CT 4266607568 / Confirmed Mixed incontinence / SNOMED CT 51768972 / Confirmed Frequency of urination / SNOMED CT 096512155 / Confirmed Weak urine stream / SNOMED CT 769185210 / Confirmed OAB (overactive bladder) / SNOMED CT 6322697906 / Confirmed Aspirin long-term use / SNOMED CT 3807270262 / Confirmed Overactive bladder / SNOMED CT 1845799100 / Confirmed UTI symptoms / SNOMED CT 691725834 / Confirmed Urinary retention / SNOMED CT 025702790 / Confirmed UTI (urinary tract infection) / SNOMED CT 361963522 / Confirmed Stress incontinence / SNOMED CT 107188514 / Confirmed Incomplete bladder emptying / SNOMED CT 718915691 / Confirmed Recurrent UTI / SNOMED CT 391192471 / Confirmed Incontinence without sensory awareness / SNOMED CT 7101697716 / Confirmed, Active Problems (26) Aspirin long-term use Asymptomatic microscopic hematuria Dysuria Flank pain Frequency of urination 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 Additional Plan of Care and/or Course of Treatment: Additional Plan of Care and/or Course of Treatment: Discussed extensively with the patient and her . Due to the presence of what appears to be an active urinary tract infection, have to cancel the B (more content not included)... Normal [facility] Comment on above: Result Comment: Elec tronically Signed By: Med JENKINS MD\.br\Date and Time Signed: 11/13/23 14:46 EST Ambulatory Visit Summaryon 1 11-27-2022 Ambulatory Visit Summary NARCISO VELASQUEZ :1940 Visit Date:09/27/2023 Ambulatory Visit Instructions Your Diagnosis Urge incontinence Incontinence without sensory awareness OAB (overactive bladder) Recurrent UTI Tests Performed Urnls Dip Stick Auto w/o Microscopy POC 39524 Your Care Team Attending Physician - Med [...] Schedule the Following Appointments Follow Up with TRINA WATSON, ARELI Ramirez When: Where: [address] [place] [address]- Medications What How Much When Instructions Changed cephalexin (Keflex 500 mg Cap) 1 Capsules By Mouth 2 times a day start one day prior to procedure. Pickup at [facility] [phone] Unchanged acetaminophen Contact prescribing physician if questions [...] physician if questions or concerns Pharmacy Information [facility] [id number]: [address] [place], [place] [phone] What How Much When Comments Stop Taking methenamine (methenamine hippurate 1 g oral tablet) 0.5 Tablets By Mouth Every day Test Results Urnls Dip Stick Auto w/o Microscopy POC 48457 (09/27/2023) POC Test Comments - Pt. was not able to urinate Allergies No Known Allergies Problems Ongoing - Any problem that you are currently receiving treatment for. Aspirin long-term use Asymptomatic microscopic hematuria Dysuria Flank pain Frequency of urination Hx of longterm 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 thinners Incomplete bladder emptying [...] urethra blocke (more content not included)... Normal [facility] Patient Educationon 09-27-20 23 Patient Education [...] stimulation). ? For women, using a biomedical service engineer to prevent urine leaks. This is a [...] urine. ? (more content not included)... Normal [facility] Urology Office/Clinic Noteon 09-27-2023 Urology Office/Clinic [...] with voice recognition artificial intelligence software, specifically [employer], [employer] and or [employer]. Substitutions may have occurred due to the [...] Contact Information Med JENKINS MD, URL [address] [place] [address]- Additional Instructions: Schedule botox 150 units Patient Education Urinary Incontinence I, Jenny Luna, personally scribed for Dr. Jenkins on 09/27/2023 13:17:45. . Documentation recorded by the [email or web address] baptiste, accurately reflects the services(s) I performed and decisions made by me. Authenticated by Dr. Jenkins on 09/27/2023 13:21:04. Problem List/Past Medical History Ongoing Aspirin l (more content not included)... Normal [facility] Comment on above: Result Comment: Elec [...] Locations R1: This test was performed at: [facility], [address] [place] [address], [address] , , Normal [facility] Comment on above: Performed By: #### 2 [id number] #### [facility] [address] [place] [address] Ambulatory Visit Summaryon 1 Ambulatory Visit Summary NARCISO VELASQUEZ :1940 Visit Date:08/16/2023 Ambulatory Visit Instructions Your Diagnosis Urge incontinence OAB (overactive bladder) Recurrent UTI Tests Performed Urnls Dip Stick Auto w/o Microscopy POC 43978 Your Care Team Attending Physician - Med [...] Med JENKINS MD Where: [facility] Dev Normal [facility] Patient Educationon 08-16-20 23 Patient Education [...] this condition includes: ? Antibiotic medicine. ? Utnf-jph-znipncu medicines to treat discomfort. ? Drinking enough [...] these instructions at home: Medicines ? Take znkj-qrc-dqnonrd and prescription medicines only as told by [...] Revie (more content not included)... Normal [facility] Urology Office/Clinic Noteon 08-16-2023 Urology Office/Clinic Note [...] with voice recognition artificial intelligence software, specifically [employer], [employer] and or [employer]. Substitutions may have occurred due to the [...] at next visit -Check with [facility] in [place] regarding incontinence supplies 1a. Current UTI. 2. [...] 6 weeks. Follow-up With When Contact Information Mde JENKINS MD, URL [address] [place] [id number]- Additional Instructions: 6 wks since starting [employer] Patient Education Urinary Tract Infection, Adult IJenny, personally scribed for Dr. Jenkins on 08/16/2023 10:28:08. . Documentation recorded by the Jenny mar, accurately reflects the services(s) I performed and decisions made by me. Authenticated by Dr. Jenkins on 08/16/2023 10:30:11. 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 Normal [facility] Comment on above: Result Comment: Elec [...] rheumatology locally, currently stable Donna Turcios MD, [facility] Surgical History Problems History of Angioplasty History [...] negative for complaint. Vitals Vital Signs Recorded: [id number] 10:40AM Heart Rate60, L Radial Rgtgrkwc459, LUE, Sitting Lssfirphr77, LUE, Sitting Height4 ft 10 in Scxkwk378 lb BMI Ozvvrkljse96.11 kg/m2 BSA Calculated1.36 Tobacco Useb) No Falls [...] Jul 20 2023 12:36PM EST (Author) Normal [facility] Tobacco Screening.on 023 Fall risk assessment a) No falls within the last year [facility] 250 DO Work Phone: Tobacco use status CPHS b) No [facility] 250 DO Work Phone: XR calcaneus BIon 07-05-2023 XR calcaneus BI [facility] Main [place] [address] [place] [address] XRay Report Signed Patient: Narciso Velasquez MR#: [id number] : 1940 Acct:[id number] Age/Sex: 82 / F ADM Date: 07/05/23 Loc: ICXD Room: Type: [facility] CLI Attending Dr: Curtis Alcocer MD Copies to: Curtis Alcocer MD Ordering Provider: Curtis Alcocer MD Date of Service: 07/05/23 XR/XR foot BI 2V: BENJIE HEAL/FOOT PAIN ([id number]) XR/XR calcaneus BI: FOOT/HEAL PAIN CLINICAL DATA: [...] Zuly Leon M.D.07/05/2023 5:55 PM Dictation Location: [place] [address] Transcribed By: [facility] 07/05/231754 Dictated By: Zuly Leon MD 07/05/231752 Signed By: 07/05/231754 [facility] Lab Reportson 06-12-2023 Lab Reports [id number]: 127 Normal [facility] Lab Reports [id number]: 127 Normal [facility] Lab Reports [id number]#1.00CD: 127 Normal [facility] Lab Reportson 06-10-2023 Lab Reports [id number]: 127 Normal [facility] Consent for Procedure/Surger yon 05-11-2023 Consent for Procedure/Surgery [id number]#1.00CD :[address] [facility] Consent for Treatmenton 04-29 Consent for Treatment [id number]: 127 Normal [facility] Inpatient Patient Summaryon 05-11-2023 Inpatient Patient Summary [place] [address] Clinical Summary Person Information Name: NARCISO VELASQUEZ Age: 82 Years : 1940 Sex: Female PCP: PRATIK TADEO MD Marital Status: Race: White Ethnicity: Non- or Language: Turkmen Visit Id: Visit Reason: URINERY INCONTINENCE Speciality: Acuity: Enc Type: Outpatient Med Service: Surgery Arrival: 05/11/2023 07:16:35 Discharge: Dispo Type: Address: [address] [place] [id number] Provider Notes: Diagnosis: Problems Active Incomplete bladder emptying Stress incontinence UTI (urinary tract infection) Urinary retention UTI symptoms Overactive bladder Aspirin long-term use Weak urine stream Weak urinary stream 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 Patient Education Information: EU - Cystoscopy with Botox Injection Discharge Instructions (Custom) [facility] IntraOperative Documentson 0 05-11-2023 IntraOperative Documents [id number]#[id number] :127 Normal [facility] Main OR Intraoperative Recor don 05-11-2023 Main OR Intraoperative Record IntraOp Document Type FTURO Summary Primary Physician: Med JENKINS MD Finalized Date/Time: 05/11/23 08:07:27 Pt. Name: RONNARCISO/Sex: 1940 Female Med Rec #: [id number] Physician: Med JENKINS MD Financial #: [id number] Pt. 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 Name: NARCISO VELASQUEZ /Sex: 1940 Female Med Rec #: [id number] Physician: Med JENKINS MD Financial #: [id number] Pt. Type: O Room/Bed: / Admit/Disch: 05/11/23 [...] 07:36 Dorie Logan RN 05/11/23 07:53 Normal [facility] Operative Reporton 3 Operative Report Patient: [...] months with bladder scan PVR. . Normal [facility] Comment on above: Result Comment: Elec tronically Signed By: TRINA WATSON, Med Hilario\.hector\Date and Time Signed: 05/11/23 08:03 EDT Outpatient Surgery Discharge Instructionon 05-11-2023 Outpatient Surgery Discharge Instruction [place] [id number] Patient Discharge Instructions PERSON INFORMATION Name: NARCISO [...] Follow up: With: Address: When: Med JENKINS [address] [place] [address], [address], [place] [phone] [facility] (1) Within 3 months Comments: Call [...] you have a fever over 100 degrees. I, NARCISO VELASQUEZ, have received the attached [...] to serve you. Thank you for choosing [facility] Normal [facility] Office Visit (Cardiology)on 01-12-2023 Follow-up visit [...] Metabolic Panel; Status:Active - Retrospective Authorization; Requested for:10Jul2023; Complete Blood Count; Status:Active - Retrospective Authorization; Requested for:10Jul2023; Atherosclerosis of coronary artery, Hyperlipidemia ALT - Alanine Aminotransferase, Serum; Status:Active - Retrospective Authorization; Requested for:10Jul2023; AST; Status:Active - Retrospective Authorization; Requested for:10Jul2023; Lipid Panel; Status:Active - Retrospective Authorization; Requested for:[id number]; SocHx: Never a smoker Tobacco Use Screening; [...] rheumatology locally, currently stable Donna Turcios MD, [facility] Surgical History Problems History of Angioplasty History [...] Recorded: 12Jan2023 11:13AM Heart Rate88, L Radial Obviflbb258, LUE, Sitting Blbplttpq66, LUE, Sitting Height4 ft 10 in Pzqzbi959 lb BMI Yjrgefylxx70.95 kg/m2 BSA Calculated1.38 Tobacco Useb) No PHQ-2 [...] . Pulmo (more content not included)... Normal [facility] Tobacco Screening.on 023 Adult depression screening assessment No [facility] 250 DO Work Phone: Fall risk assessment a) No falls within the last year [facility] 250 DO Work Phone: Tobacco use status CPHS b) No [facility] 250 DO Work Phone: PTH INTACTon 11-30-2022 PTH, Intact 3 pg/mL Critically low 15-[address] [facility] Comment on above: Performed By: #### R MG ZEESHAN #### [facility] [address] [place] [address] Dr. Emilie Jeronimo HEMOGRAM AND PLATELon 2022 Hematocrit (Bld) [Volume fraction] 38.0 % Normal 36.0-48.0 [facility] Comment on above: Performed By: #### R ENAL, MG #### [facility] [address] [place] [address] Dr. Emilie Jeroinmo Hemoglobin (Bld) [Mass/Vol] 12.9 g/dL Normal 12.0-16.0 [facility] Comment on above: Performed By: #### R ENAL, MG #### [facility] [address] [place] [address] Dr. Emilie Jeronimo MCH (RBC) [Entitic mass] 32.5 pg Normal 26.7-34.0 [facility] Comment on above: Performed By: #### R ENAL, MG #### [facility] [address] [place] [address] Dr. Emilie Jeronimo MCHC (RBC) [Mass/Vol] 33.9 g/dL Normal 29.9-35.2 [facility] Comment on above: Performed By: #### R ENAL, MG #### [facility] [address] [place] [address] Dr. Emilie Jeronimo MCV (RBC) [Entitic vol] 95.7 fL Normal 81.0-99.0 [facility] Comment on above: Performed By: #### R ENAL, MG #### [facility] [address] [place] [address] Dr. Emilie Jeronimo PLT 214 103/ul Normal 150-450 [facility] Comment on above: Performed By: #### R ENAL, MG #### [facility] [address] [place] [address] Dr. Emilie Jeronimo RBC 3.97 106/ul Critically low 4.20-5.[address] [facility] Comment on above: Performed By: #### R ENAL, MG #### [facility] [address] [place] [address] Dr. Emilie Jeronimo WBC 7.7 103/ul Normal 4.0-11.0 [facility] Comment on above: Performed By: #### R ENAL, MG #### [facility] [address] [place] [address] Dr. Emilie Jeronimo MAGNESIUMon 11-29-2022 Magnesium [Mass/Vol] 1.3 mg/dL Critically low 1.8-2.4 [facility] Comment on above: Performed By: #### R ENAL, MG #### [facility] [address] [place] [address] Dr. Emilie Jeronimo RENAL FUNCTION PANELon 11-29 Albumin [Mass/Vol] 3.6 g/dL Normal 3.4-5.[address] [facility] Comment on above: Performed By: #### R ENAL, MG #### [facility] [address] [place] [address] Dr. Emilie Jeronimo Calcium [Mass/Vol] 9.4 mg/dL Normal 8.5-10.[address] [facility] Comment on above: Performed By: #### R ENAL, MG #### [facility] [address] [place] [address] Dr. Emilie Jeronimo Chloride [Moles/Vol] 103 mmol/L Normal 98-107 [facility] Comment on above: Performed By: #### R ENAL, MG #### [facility] [address] [place] [address] Dr. Emilie Jeronimo CO2 [Moles/Vol] 32.5 mmol/L Critically high 21.0-32.0 [facility] Comment on above: Performed By: #### R ENAL, MG #### [facility] [address] [place] [address] Dr. Emilie Jeronimo Creatinine [Mass/Vol] 0.79 mg/dL Normal 0.55-1.02 [facility] Comment on above: Performed By: #### R ENAL, MG #### [facility] [address] [place] [address] Dr. Emilie Jeronimo EGFR-AF CAMBODIAN >60 Normal >=60 [facility] Comment on above: Performed By: #### R ENAL, MG #### [facility] [address] [place] [address] [address] Emilie Jeronimo EGFR-NON AF CAMBODIAN >60 Normal >=60 [facility] Comment on above: Performed By: #### R ZEESHAN, MG #### [facility] [address] [place] [address] Dr. Eimlie Jeronimo Glucose [Mass/Vol] 95 mg/dL Normal 74-[address] [facility] Comment on above: Performed By: #### R ZEESHAN, MG #### [facility] [address] [place] [address] Dr. Emilie Jeronimo Phosphate [Mass/Vol] 4.0 mg/dL Normal 2.6-4.7 [facility] Comment on above: Performed By: #### R ZEESHAN, MG #### [facility] [address] [place] [address] Dr. Emilie Jeronimo Potassium [Moles/Vol] 3.8 mmol/L Normal 3.5-5.1 [facility] Comment on above: Performed By: #### R ZEESHAN, MG #### [facility] [address] [place] [address] Dr. Emilie Jeronimo Sodium [Moles/Vol] 145 mmol/L Normal 136-[address] [facility] Comment on above: Performed By: #### R ZEESHAN, MG #### [facility] [address] [place] [address] Dr. Emilie Jeronimo Urea nitrogen [Mass/Vol] 17.0 mg/dL Normal 7.0-18.0 [facility] Comment on above: Performed By: #### R ENMICHELLE, MG #### [facility] [address] [place] [address] Dr. Emilie Jeronimo UA RANDOM W/MICROSCOPICon BACTERIA SMALL Abnormal NONE SEEN [facility] Comment on above: Performed By: #### R ZEESHAN, MG #### [facility] [address] [place] [address] Dr. Emilie Jeronimo Bilirubin Ql (U) Negative Normal NEGATIVE [facility] Comment on above: Performed By: #### R ZEESHAN, MG #### [facility] [address] [place] [address] Dr. Emilie Jeronimo CAST NONE SEEN Normal NONE SEEN [facility] Comment on above: Performed By: #### R ENAL, MG #### [facility] [address] [place] [address] [address] Emilie Jeronimo Clarity (U) SL CLOUDY Abnormal CLEAR [facility] Comment on above: Performed By: #### R ENAL, MG #### [facility] [address] [place] [address] Dr. Emilie Jeronimo Color (U) LT. YELLOW Normal YELLOW [facility] Comment on above: Performed By: #### R ENAL, MG #### [facility] [address] [place] [address] Dr. Emilie Jeronimo Crystals LM Nom (Urine sed) NONE SEEN Normal NONE SEEN [facility] Comment on above: Performed By: #### R ENAL, MG #### [facility] [address] [place] [address] Dr. Emilie Jeronimo Epithelial cells LM Ql (Urine sed) RARE Normal NONE SEEN /RARE [facility] Comment on above: Performed By: #### R ENAL, MG #### [facility] [address] [place] [address] Dr. Emilie Jeronimo Glucose Ql (U) Negative Normal NEGATIVE [facility] Comment on above: Performed By: #### R ENAL, MG #### [facility] [address] [place] [address] Dr. Emilie Jeronimo Hemoglobin Ql (U) TRACE-INTACT Abnormal NEGATIVE [facility] Comment on above: Performed By: #### R ENAL, MG #### [facility] [address] [place] [address] Dr. Emilie Jeronimo Ketones Ql (U) Negative Normal NEGATIVE [facility] Comment on above: Performed By: #### R ENAL, MG #### [facility] [address] [place] [address] Dr. Emilei Jeronimo LEUKOCYTES LARGE Abnormal NEGATIVE [facility] Comment on above: Performed By: #### R ENAL, MG #### [facility] [address] [place] [address] Dr. Emilie Jeronimo MUCOUS TRACE Abnormal NONE SEEN [facility] Comment on above: Performed By: #### R ENAL, MG #### [facility] [address] [place] [address] Dr. Emilie Jeronimo Nitrite Ql (U) Positive Abnormal NEGATIVE [facility] Comment on above: Performed By: #### R ENAL, MG #### [facility] [address] [place] [address] Dr. Emilie Jeronimo pH (U) 6.5 [pH] Normal 5-9 [facility] Comment on above: Performed By: #### R ENAL, MG #### [facility] [address] [place] [address] Dr. Emilie Jeronimo RBC 2-5 Abnormal 0-2 [facility] Comment on above: Performed By: #### R ENAL, MG #### [facility] [address] [place] [address] Dr. Emilie Jeronimo SPEC GRAVITY 1.020 Normal 1.005-<=1.025 [facility] Comment on above: Performed By: #### R ENAL, MG #### [facility] [address] [place] [address] Dr. Emilie Jeronimo UA PROTEIN TRACE Normal NEGATIVE/ TRACE [facility] Comment on above: Performed By: #### R ENAL, MG #### [facility] [address] [place] [address] Dr. Emilie Jeronimo Urobilinogen Qn (U) 1.0 {Fareed'U}/dL Normal 0.2 - 1. 0 [facility] Comment on above: Performed By: #### R ENAL, MG #### [facility] [address] [place] [address] Dr. Emilie Jeronimo WBC 20-50 Abnormal NONE SEEN [facility] Comment on above: Performed By: #### R ENAL, MG #### [facility] [address] [place] [address] Dr. Emilie Jeronimo VITAMIN D 25 OHon 11-29-2022 VIT D 25-OH 38.1 ng/mL Normal [facility] Comment on above: Performed By: #### R ZEESHAN, MG #### [facility] [address] [place] [address] [address] Emilie Jeronimo VIT D RANGES SEE BELOW Normal [facility] Comment on above: Result Comment: <20 ng/mL Vit D deficient 20 - <30 ng/mL Vit D insufficient 30 - 100 ng/mL Vit D sufficient >100 ng/mL Potential Toxicity Performed By: #### R ZEESHAN MG #### [facility] [address] [place] [address] [address] Emilie Corral 08-02-2022 L ---- Specimen: [id number] Received: 08/02/22 Status: BIANKA Meyer Num: [id number] Spec Type: Surgical Subm Dr: Madhav [place] MD Tissues: A Gastric Biopsy (GASTRIC BX) Procedures: HE Stain/2, Gross/Micro L4 Age/ Patient Sex Location Account Attending Physician Narciso Velasquez 81/F [id number] Madhav [place] MD SPEC NUM: [id number] RECD: 08/02/22 STATUS: PITOMeche MEYER NUM: [id number] SHERLYN: 08/02/22 [facility] DR: Madhav [place] MD ENTERED: 08/02/[address] [facility] [address]: SPEC TYPE: Surgical DEPT: S ORDERED: [...] findings support the above pathologic diagnosis. Specimen: [id number] Received: 08/02/22 Status: BIANKA Meyer Num: [id number] Spec Type: Surgical Subm Dr: Madhav [place] MD Tissues: A Gastric Biopsy (GASTRIC BX) Procedures: HE Stain/2, Gross/Micro L4 Patient: Narciso Velasquez [id number] (Continued) Specimen: [id number] Received: 08/02/22 (Continued) Signed (signature on file) Donita Severino MD 08/04/22 1313 Specimen: [id number] Received: 08/02/22 Status: BIANKA Meyer Num: [id number] Spec Type: Surgical Subm Dr: Madhav [place] MD Tissues: A Gastric Biopsy (GASTRIC BX) Procedures: LYSSA Stain/2, Gross/Micro L4 Patient: Narciso Velasquez [id number] (Continued) Specimen: [id number] Received: 08/02/22 (Continued) CPT Codes 72638 Specimen: [id number] Received: 08/02/22 Status: BIANKA Meyer Num: [id number] Spec Type: Surgical Subm Dr: Madhav [place] MD Tissues: A Gastric Biopsy (GASTRIC BX) Procedures: LYSSA Stain/2, Gross/Micro L4 Patient: Narciso Velasquez [id number] (Continued) Signed (signature on file) Donita Severino MD 08/04/22 1313 Normal [facility] SARS-CoV-2 (COVID-19) RNA GAUDENCIO+probe Ql (Unsp spec) Negative Normal Negative [facility] Comment on above: Order Comment: Healt hcare Worker?: N Result Comment: Testing for SARS-CoV-2 by RT-PCR This test was developed and its performance characteristics determined by [employer] (Tier 3) and validated at the [facility]. This test has not been FDA [...] is terminated or revoked sooner. PERFORMED BY: [facility] [address] [place] [address] PATHOLOGIST MACHINE II COREMAKER CHELSY MAHMOOD M.D. Performed By: #### C OVID 19 [facility] #### [address] COVID-19 Positive/NegativeOr dered By: Madhav [place] on 07-29-2022 SARS-CoV-2 (COVID-19) N gene GAUDENCIO+probe Ql (Resp) Negative Negative [facility] Comment on above: Testing for SARS-CoV -2 by RT-PCRThis test was developed and its performance characteristics determined by [employer] (Tier 3) and validated at the [facility]. This test has not been FDA [...] 07-11-2022 BASO # 0.1 103/ul Normal 0.0-0.1 [facility] Comment on above: Performed By: #### C BC #### [facility] [address] [place] [address] Dr. Emilie Jeronimo Basophils/100 WBC (Bld) 0.6 % Normal 0.2-2.0 [facility] Comment on above: Performed By: #### C BC #### [facility] [address] [place] [address] Dr. Emilie Jeronimo EO # 0.2 103/ul Normal 0.0-0.7 [facility] Comment on above: Performed By: #### C BC #### [facility] [address] [place] [address] Dr. Emilie Jeronimo Eosinophils/100 WBC (Bld) 1.9 % Normal 0.9-7.0 [facility] Comment on above: Performed By: #### C BC #### [facility] [address] [place] [address] Dr. Emilie Jeronimo Erythrocyte distribution width (RBC) [Ratio] 13.2 % Normal 11.0-15.0 [facility] Comment on above: Performed By: #### C BC #### [facility] [address] [place] [address] Dr. Emilie Jeronimo Hematocrit (Bld) [Volume fraction] 37.9 % Normal 36.0-48.0 [facility] Comment on above: Performed By: #### C BC #### [facility] [address] [place] [address] Dr. Emilie Jeronimo Hemoglobin (Bld) [Mass/Vol] 12.2 g/dL Normal 12.0-16.0 [facility] Comment on above: Performed By: #### C BC #### [facility] [address] [place] [address] Dr. Emilie Jeronimo IG # 0.03 10e3/ul Normal 0.00-0.03 [facility] Comment on above: Performed By: #### C BC #### [facility] [address] [place] [address] Dr. Emilie Jeronmio IG % 0.4 % Normal 0.0-0.5 [facility] Comment on above: Performed By: #### C BC #### [facility] [address] [place] [address] Dr. Emilie Jeronimo LYMPH # 2.3 103/ul Normal 1.2-3.8 [facility] Comment on above: Performed By: #### C BC #### [facility] [address] [place] [address] Dr. Emilie Jeronimo Lymphocytes/100 WBC (Bld) 29.0 % Normal 20.5-60.0 [facility] Comment on above: Performed By: #### C BC #### [facility] [address] [place] [address] Dr. Emilie Jeronimo MANUAL DIFF REQ NO Normal [facility] Comment on above: Performed By: #### C BC #### [facility] [address] [place] [address] Dr. Emilie Jeronimo MCH (RBC) [Entitic mass] 32.4 pg Normal 26.7-34.0 [facility] Comment on above: Performed By: #### C BC #### [facility] [address] [address] [address] Emilie Jeronimo MCHC (RBC) [Mass/Vol] 32.2 g/dL Normal 29.9-35.2 [facility] Comment on above: Performed By: #### C BC #### [facility] [address] [address] [address] Emilie Jeronimo MCV (RBC) [Entitic vol] 100.5 fL Critically high 81.0-99.0 [facility] Comment on above: Performed By: #### C BC #### [facility] [address] [place] [address] Dr. Emilie Jeronimo MONO # 0.6 103/ul Normal 0.3-0.8 [facility] Comment on above: Performed By: #### C BC #### [facility] [address] [place] [address] Dr. Emilie Jeronimo Monocytes/100 WBC (Bld) 7.9 % Normal 1.7-12.0 [facility] Comment on above: Performed By: #### C BC #### [facility] [address] [place] [address] Dr. Emilie Jeronimo NEUT # 4.7 103/ul Normal 1.4-6.5 [facility] Comment on above: Performed By: #### C BC #### [facility] [address] [place] [address] Dr. Emilie Jeronimo Neutrophils/100 WBC (Bld) 60.2 % Normal 43.0-75.0 [facility] Comment on above: Performed By: #### C BC #### [facility] [address] [address] [address] Emilie Jeronimo Platelet mean volume (Bld) [Entitic vol] 10.0 fL Normal 9.5-13.5 [facility] Comment on above: Performed By: #### C BC #### [facility] [address] [place] [address] Dr. Emilie Jeronimo PLT 234 103/ul Normal 150-450 [facility] Comment on above: Performed By: #### C BC #### [facility] [address] [address] [address] Emilie Jeronimo RBC 3.77 106/ul Critically low 4.20-5.40 [facility] Comment on above: Performed By: #### C BC #### [facility] [address] [place] [address] Dr. Emilie Jeronimo WBC 7.8 103/ul Normal 4.0-11.0 [facility] Comment on above: Performed By: #### C BC #### [facility] [address] [address] [address] Emilie Jeronimo FREE T4on 07-11-2022 Free T4 [Mass/Vol] 0.79 ng/dL Normal 0.76-1.[address] [facility] Comment on above: Performed By: #### R ZEESHAN, MG #### [facility] [address] [place] [address] Dr. Emilie Jeronimo PROF 14(COMP METB)on 022 Albumin [Mass/Vol] 3.7 g/dL Normal 3.4-5.0 [facility] Comment on above: Performed By: #### R ZEESHAN MG #### [facility] [address] [place] [address] Dr. Emilie Jeronimo Albumin/Globulin [Mass ratio] 1.2 {ratio} Normal [facility] Comment on above: Performed By: #### R ZEESHAN, MG #### [facility] [address] [place] [address] Dr. Emilie Jeronimo ALP [Catalytic activity/Vol] 53 U/L Normal 46-116 [facility] Comment on above: Performed By: #### R ENMICHELLE, MG #### [facility] [address] [place] [address] Dr. Emilie Jeronimo ALT [Catalytic activity/Vol] 26 U/L Normal 14-59 [facility] Comment on above: Performed By: #### R ENMICHELLE, MG #### [facility] [address] [place] [address] Dr. Emilie Jeronimo Anion gap [Moles/Vol] 8.9 mmol/L Normal [facility] Comment on above: Performed By: #### R ENAL, MG #### [facility] [address] [place] [address] Dr. Emilie Jeronimo AST [Catalytic activity/Vol] 18 U/L Normal 15-37 [facility] Comment on above: Performed By: #### R ENAL, MG #### [facility] [address] [place] [address] Dr. Emilie Jeronimo Bilirubin [Mass/Vol] 0.3 mg/dL Normal 0.2-1.0 [facility] Comment on above: Performed By: #### R ENAL, MG #### [facility] [address] [place] [address] Dr. Emilie Jeronimo Calcium [Mass/Vol] 9.1 mg/dL Normal 8.5-10.1 [facility] Comment on above: Performed By: #### R ENAL, MG #### [facility] [address] [place] [address] Dr. Emilie Jeronimo Chloride [Moles/Vol] 104 mmol/L Normal 98-107 [facility] Comment on above: Performed By: #### R ENAL, MG #### [facility] [address] [place] [address] Dr. Emilie Jeronimo CO2 [Moles/Vol] 34.8 mmol/L Critically high 21.0-32.0 [facility] Comment on above: Performed By: #### R ENAL, MG #### [facility] [address] [place] [address] Dr. Emilie Jeronimo Creatinine [Mass/Vol] 0.73 mg/dL Normal 0.55-1.02 [facility] Comment on above: Performed By: #### R ENAL, MG #### [facility] [address] [place] [address] Dr. Emilie Jeronimo EGFR-AF CAMBODIAN >60 Normal >=60 [facility] Comment on above: Performed By: #### R ENAL, MG #### [facility] [address] [place] [address] Dr. Emilie Jeronimo EGFR-NON AF CAMBODIAN >60 Normal >=60 [facility] Comment on above: Performed By: #### R ENAL, MG #### [facility] [address] [place] [address] Dr. Emilie Jeronimo Globulin (S) [Mass/Vol] 3.2 g/dL Normal [facility] Comment on above: Performed By: #### R ENAL, MG #### [facility] [address] [place] [address] Dr. Emilie Jeronimo Glucose [Mass/Vol] 109 mg/dL Critically high 74-106 [facility] Comment on above: Performed By: #### R ENAL, MG #### [facility] [address] [place] [address] Dr. Emilie Jeronimo Potassium [Moles/Vol] 3.7 mmol/L Normal 3.5-5.1 [facility] Comment on above: Performed By: #### R ENAL, MG #### [facility] [address] [place] [address] Dr. Emilie Jeronimo Protein [Mass/Vol] 6.9 g/dL Normal 6.4-8.[address] [facility] Comment on above: Performed By: #### R ENAL, MG #### [facility] [address] [place] [address] Dr. Emilie Jeronimo Sodium [Moles/Vol] 144 mmol/L Normal 136-145 [facility] Comment on above: Performed By: #### R ENAL, MG #### [facility] [address] [place] [address] Dr. Emilie Jeronimo Urea nitrogen [Mass/Vol] 20.0 mg/dL Critically high 7.0-18.0 [facility] Comment on above: Performed By: #### R ENAL, MG #### [facility] [address] [place] [address] Dr. Emilie Jeronimo Urea nitrogen/Creatinine [Mass ratio] 27.4 mg/mg Normal [facility] Comment on above: Performed By: #### R ENAL, MG #### [facility] [address] [place] [address] Dr. Emilie Jeronimo TSHon 07-11-2022 TSH 3.616 uIU/mL Normal 0.358-3.740 [facility] Comment on above: Performed By: #### R ZEESHAN, MG #### [facility] [address] [place] [address] Dr. Emilie Jeronimo VITAMIN B12on 07-11-2022 Cobalamin (Vitamin B12) [Mass/Vol] 321.0 pg/mL Normal 193.0-986.0 [facility] Comment on above: Performed By: #### R ZEESHAN, MG #### [facility] [address] [place] [address] Dr. Emilie Jeronimo Tobacco Screening.on 022 Fall risk assessment a) No falls within the last year [facility] y [address] DO Work Phone: Tobacco use status CP b) No [facility] Work Phone: CBC AUTO DIFFon 06-15-2022 BASO # 0.0 103/ul Normal 0.0-0.1 [facility] Comment on above: Performed By: #### C BC #### [facility] [address] [place] [address] Dr. Emilie Jeronimo Basophils/100 WBC (Bld) 0.4 % Normal 0.2-2.0 [facility] Comment on above: Performed By: #### C BC #### [facility] [address] [place] [address] Dr. Emilie Jeronimo EO # 0.2 103/ul Normal 0.0-0.7 [facility] Comment on above: Performed By: #### C BC #### [facility] [address] [place] [address] Dr. Emilie Jeronimo Eosinophils/100 WBC (Bld) 2.4 % Normal 0.9-7.0 [facility] Comment on above: Performed By: #### C BC #### [facility] [address] [place] [address] Dr. Emilie Jeronimo Erythrocyte distribution width (RBC) [Ratio] 12.8 % Normal 11.0-15.0 [facility] Comment on above: Performed By: #### C BC #### [facility] [address] [place] [address] Dr. Emilie Jeronimo Hematocrit (Bld) [Volume fraction] 38.3 % Normal 36.0-48.0 [facility] Comment on above: Performed By: #### C BC #### [facility] [address] [place] [address] Dr. Emilie Jeronimo Hemoglobin (Bld) [Mass/Vol] 12.5 g/dL Normal 12.0-16.0 [facility] Comment on above: Performed By: #### C BC #### [facility] [address] [place] [address] Dr. Emilie Jeronimo IG # 0.04 10e3/ul Critically high 0.00-0.03 [facility] Comment on above: Performed By: #### C BC #### [facility] [address] [place] [address] Dr. Emilie Jeronimo IG % 0.6 % Critically high 0.0-0.5 [facility] Comment on above: Performed By: #### C BC #### [facility] [address] [place] [address] Dr. Emilie Jeronimo LYMPH # 1.9 103/ul Normal 1.2-3.8 [facility] Comment on above: Performed By: #### C BC #### [facility] [address] [place] [address] Dr. Emilie Jeronimo Lymphocytes/100 WBC (Bld) 27.9 % Normal 20.5-60.0 [facility] Comment on above: Performed By: #### C BC #### [facility] [address] [place] [address] Dr. Emilie Jeronimo MANUAL DIFF REQ NO Normal [facility] Comment on above: Performed By: #### C BC #### [facility] [address] [place] [address] Dr. Emilie Jeronimo MCH (RBC) [Entitic mass] 32.2 pg Normal 26.7-34.0 [facility] Comment on above: Performed By: #### C BC #### [facility] [address] [address] [address] Emilie Jeronimo MCHC (RBC) [Mass/Vol] 32.6 g/dL Normal 29.9-35.2 [facility] Comment on above: Performed By: #### C BC #### [facility] [address] [address] [address] Emilie Jeronimo MCV (RBC) [Entitic vol] 98.7 fL Normal 81.0-99.0 [facility] Comment on above: Performed By: #### C BC #### [facility] [address] [address] [address] Emilie Jeronimo MONO # 0.5 103/ul Normal 0.3-0.8 [facility] Comment on above: Performed By: #### C BC #### [facility] [address] [place] [address] Dr. Emilie Jeronimo Monocytes/100 WBC (Bld) 7.3 % Normal 1.7-12.0 [facility] Comment on above: Performed By: #### C BC #### [facility] [address] [place] [address] Dr. Emilie Jeronimo NEUT # 4.1 103/ul Normal 1.4-6.5 [facility] Comment on above: Performed By: #### C BC #### [facility] [address] [place] [address] Dr. Emilie Jeronimo Neutrophils/100 WBC (Bld) 61.4 % Normal 43.0-75.0 [facility] Comment on above: Performed By: #### C BC #### [facility] [address] [address] [address] Emilie Jeronimo Platelet mean volume (Bld) [Entitic vol] 9.2 fL Critically low 9.5-13.5 [facility] Comment on above: Performed By: #### C BC #### [facility] [address] [address] [address] Emilie Jeronimo PLT 201 103/ul Normal 150-450 [facility] Comment on above: Performed By: #### C BC #### [facility] [address] [address] [address] Emilie Jeronimo RBC 3.88 106/ul Critically low 4.20-5.40 [facility] Comment on above: Performed By: #### C BC #### [facility] [address] [address] [address] Emilie Jeronimo WBC 6.7 103/ul Normal 4.0-11.0 [facility] Comment on above: Performed By: #### C BC #### [facility] [address] [address] [address] Emilie Jeronimo LIPID PROFILEon 06-15-2022 CHOL-HDL RATIO NORM SEE BELOW Normal [facility] Comment on above: Result Comment: 3.3 - 4.4 LOW RISK 4.4 - 7.1 AVERAGE RISK 7.1 - 11.0 MODERATE RISK >11.0 HIGH RISK Performed By: #### A ST, ALT, LIPID, BMP #### [facility] [address] [address] [address] Emilie Jeronimo Cholesterol [Mass/Vol] 124 mg/dL Normal <=200 [facility] Comment on above: Performed By: #### A ST, ALT, LIPID, BMP #### [facility] [address] [address] [address] Emilie Jeronimo Cholesterol in HDL [Mass/Vol] 81 mg/dL Critically high 40-60 [facility] Comment on above: Performed By: #### A ST, ALT, LIPID, BMP #### [facility] [address] [address] [address] Emilie Jeronimo Cholesterol in LDL [Mass/Vol] 27.6 mg/dL Normal [facility] Comment on above: Performed By: #### A ST, ALT, LIPID, BMP #### [facility] [address] [address] [address] Emilie Jeronimo Cholesterol.total/C holesterol in HDL [Mass ratio] 1.5 {ratio} Normal [facility] Comment on above: Performed By: #### A ST, ALT, LIPID, BMP #### [facility] [address] [address] [address] Emilie Jeronimo HDL NORMAL > or = 60 mg/dl - LO W CARDIOVASCULAR RISK <40 mg/dl - HIGH CARDIOVASCULAR RISK Normal [facility] Comment on above: Performed By: #### A ST, ALT, LIPID, BMP #### [facility] [address] [address] [address] Emilie Jeronimo LDL CALC NORMAL SEE BELOW Normal [facility] Comment on above: Result Comment: <100 mg/dl OPTIMAL 100 - 129 mg/dl NEAR OR ABOVE OPTIMAL 130 - 159 mg/dl BORDERLINE HIGH 160 - 189 mg/dl HIGH >190 mg/dl VERY HIGH Performed By: #### A ST, ALT, LIPID, BMP #### [facility] [address] [address] [address] Emilie Jeronimo Triglyceride [Mass/Vol] 77 mg/dL Normal <=150 [facility] Comment on above: Performed By: #### A ST, ALT, LIPID, BMP #### [facility] [address] [address] [address] Emilie Jeronimo VLDL CALC 15.4 mg/dL Normal [facility] Comment on above: Performed By: #### A ST, ALT, LIPID, BMP #### [facility] [address] [address] [address] Emilie Jeronimo PROF CHEM 8 (BAS METB)on Anion gap [Moles/Vol] 12.7 mmol/L Normal [facility] Comment on above: Performed By: #### A ST, ALT, LIPID, BMP #### [facility] [address] [address] [address] Emilie Jeronimo Calcium [Mass/Vol] 8.5 mg/dL Normal 8.5-10.1 [facility] Comment on above: Performed By: #### A ST, ALT, LIPID, BMP #### [facility] [address] [address] [address] Emilie Jeronimo Chloride [Moles/Vol] 102 mmol/L Normal 98-107 [facility] Comment on above: Performed By: #### A ST, ALT, LIPID, BMP #### [facility] [address] [address] [address] Emilie Jeronimo CO2 [Moles/Vol] 30.1 mmol/L Normal 21.0-32.0 [facility] Comment on above: Performed By: #### A ST, ALT, LIPID, BMP #### [facility] [address] [address] [address] Emilie Jeronimo Creatinine [Mass/Vol] 0.76 mg/dL Normal 0.55-1.02 [facility] Comment on above: Performed By: #### A ST, ALT, LIPID, BMP #### [facility] [address] [address] [address] Emilie Jeronimo EGFR-AF CAMBODIAN >60 Normal >=60 [facility] Comment on above: Performed By: #### A ST, ALT, LIPID, BMP #### [facility] [address] [place] [address] Dr. Emilie Jeronimo EGFR-NON AF CAMBODIAN >60 Normal >=60 [facility] Comment on above: Performed By: #### A ST, ALT, LIPID, BMP #### [facility] [address] [address] [address] Emilie Jeronimo Glucose [Mass/Vol] 97 mg/dL Normal 74-106 [facility] Comment on above: Performed By: #### A ST, ALT, LIPID, BMP #### [facility] [address] [address] [address] Emilie Jeronimo Potassium [Moles/Vol] 3.8 mmol/L Normal 3.5-5.1 [facility] Comment on above: Performed By: #### A ST, ALT, LIPID, BMP #### [facility] [address] [address] [address] Emilie Jeronimo Sodium [Moles/Vol] 141 mmol/L Normal 136-[address] [facility] Comment on above: Performed By: #### A ST, ALT, LIPID, BMP #### [facility] [address] [address] [address] Emilie Jeronimo Urea nitrogen [Mass/Vol] 21.0 mg/dL Critically high 7.0-18.0 [facility] Comment on above: Performed By: #### A ST, ALT, LIPID, BMP #### [facility] [address] [address] [address] Emilie Jeronimo Urea nitrogen/Creatinine [Mass ratio] 27.6 mg/mg Normal [facility] Comment on above: Performed By: #### A ST, ALT, LIPID, BMP #### [facility] [address] [address] [address] Emilie Jeronimo SGOTon 06-15-2022 AST [Catalytic activity/Vol] 22 U/L Normal 15-37 [facility] Comment on above: Performed By: #### A ST, ALT, LIPID, BMP #### [facility] [address] [address] [address] Emilie Jeronimo SGPTon 06-15-2022 ALT [Catalytic activity/Vol] 21 U/L Normal 14-59 [facility] Comment on above: Performed By: #### A ST, ALT, LIPID, BMP #### [facility] [address] [place] [address] ABD/PELVIS WO CONon [...] JAYLEEN GREER Date: 2022-04-21 10:40 Normal [facility] PTH INTACTon 03-24-2022 PTH, Intact 4 pg/mL Critically low 15-[address] [facility] Comment on above: Performed By: #### P THINT #### [facility] [address] [place] [address] Dr. Emliie Jeronimo CBC AUTO DIFFon 03-23-2022 BASO # 0.0 103/ul Normal 0.0-0.1 [facility] Comment on above: Performed By: #### R ENAL, MG #### [facility] [address] [address] [address] Emilie Jeronimo Basophils/100 WBC (Bld) 0.5 % Normal 0.2-2.0 [facility] Comment on above: Performed By: #### R ENAL, MG #### [facility] [address] [address] [address] Emilie Jeronimo EO # 0.1 103/ul Normal 0.0-0.7 [facility] Comment on above: Performed By: #### R ENAL, MG #### [facility] [address] [address] [address] Emilie Jeronimo Eosinophils/100 WBC (Bld) 1.3 % Normal 0.9-7.0 [facility] Comment on above: Performed By: #### R ENAL, MG #### [facility] [address] [address] [address] Emilie Jeronimo Erythrocyte distribution width (RBC) [Ratio] 13.0 % Normal 11.0-15.0 [facility] Comment on above: Performed By: #### R ENAL, MG #### [facility] [address] [place] [address] Dr. Emilie Jeronimo Hematocrit (Bld) [Volume fraction] 34.2 % Critically low 36.0-48.0 [facility] Comment on above: Performed By: #### R ENAL, MG #### [facility] [address] [place] [address] Dr. Emilie Jeronimo Hemoglobin (Bld) [Mass/Vol] 11.3 g/dL Critically low 12.0-16.0 [facility] Comment on above: Performed By: #### R ENAL, MG #### [facility] [address] [place] [address] Dr. Emilie Jeronimo IG # 0.02 10e3/ul Normal 0.00-0.03 [facility] Comment on above: Performed By: #### R ENAL, MG #### [facility] [address] [place] [address] Dr. Emilie Jeronimo IG % 0.3 % Normal 0.0-0.5 [facility] Comment on above: Performed By: #### R ENAL, MG #### [facility] [address] [place] [address] Dr. Emilie Jeronimo LYMPH # 1.4 103/ul Normal 1.2-3.8 [facility] Comment on above: Performed By: #### R ENAL, MG #### [facility] [address] [place] [address] Dr. Emilie Jeronimo Lymphocytes/100 WBC (Bld) 24.0 % Normal 20.5-60.0 [facility] Comment on above: Performed By: #### R ENAL, MG #### [facility] [address] [place] [address] Dr. Emilie Jeronimo MANUAL DIFF REQ NO Normal [facility] Comment on above: Performed By: #### R ENAL, MG #### [facility] [address] [place] [address] Dr. Emilie Jeronimo MCH (RBC) [Entitic mass] 32.5 pg Normal 26.7-34.0 [facility] Comment on above: Performed By: #### R ENAL, MG #### [facility] [address] [place] [address] Dr. Emilie Jeronimo MCHC (RBC) [Mass/Vol] 33.0 g/dL Normal 29.9-35.2 [facility] Comment on above: Performed By: #### R ENAL, MG #### [facility] [address] [place] [address] Dr. Emilie Jeronimo MCV (RBC) [Entitic vol] 98.3 fL Normal 81.0-99.0 [facility] Comment on above: Performed By: #### R ENAL, MG #### [facility] [address] [place] [address] Dr. Emilie Jeronimo MONO # 0.5 103/ul Normal 0.3-0.8 [facility] Comment on above: Performed By: #### R ENAL, MG #### [facility] [address] [place] [address] Dr. Emilie Jeronimo Monocytes/100 WBC (Bld) 8.7 % Normal 1.7-12.0 [facility] Comment on above: Performed By: #### R ENAL, MG #### [facility] [address] [place] [address] Dr. Emilie Jeronimo NEUT # 3.9 103/ul Normal 1.4-6.5 [facility] Comment on above: Performed By: #### R ENAL, MG #### [facility] [address] [place] [address] Dr. Emilie Jeronimo Neutrophils/100 WBC (Bld) 65.2 % Normal 43.0-75.0 [facility] Comment on above: Performed By: #### R ENAL, MG #### [facility] [address] [place] [address] Dr. Emilie Jeronimo Platelet mean volume (Bld) [Entitic vol] 10.0 fL Normal 9.5-13.5 [facility] Comment on above: Performed By: #### R ENAL, MG #### [facility] [address] [place] [address] Dr. Emilie Jeronimo PLT 197 103/ul Normal 150-450 [facility] Comment on above: Performed By: #### R ZEESHAN, MG #### [facility] [address] [place] [address] Dr. Emilie Jeronimo RBC 3.48 106/ul Critically low 4.20-5.40 [facility] Comment on above: Performed By: #### R ZEESHAN, MG #### [facility] [address] [place] [address] Dr. Emilie Jeronimo WBC 6.0 103/ul Normal 4.0-11.0 [facility] Comment on above: Performed By: #### R ZEESHAN, MG #### [facility] [address] [place] [address] Dr. Emilie Jeronimo PROF CHEM 8 (BAS METB)on Anion gap [Moles/Vol] 10.3 mmol/L Normal [facility] Comment on above: Performed By: #### R ZEESHAN, MG #### [facility] [address] [place] [address] Dr. Emilie Jeronimo Calcium [Mass/Vol] 6.1 mg/dL Critically low 8.5-10.1 [facility] Comment on above: Performed By: #### R ENMICHELLE, MG #### [facility] [address] [place] [address] Dr. Emilie Jeronimo Chloride [Moles/Vol] 103 mmol/L Normal 98-107 [facility] Comment on above: Performed By: #### R ENMICHELLE, MG #### [facility] [address] [place] [address] Dr. Emilie Jeronimo CO2 [Moles/Vol] 31.8 mmol/L Normal 21.0-32.0 [facility] Comment on above: Performed By: #### R ENMICHELLE, MG #### [facility] [address] [place] [address] Dr. Emilie Jeronimo Creatinine [Mass/Vol] 0.70 mg/dL Normal 0.55-1.02 [facility] Comment on above: Performed By: #### R ENAL, MG #### [facility] [address] [address] [address] Emilie Jeronimo EGFR-AF CAMBODIAN >60 Normal >=60 [facility] Comment on above: Performed By: #### R ENAL, MG #### [facility] [address] [place] [address] Dr. Emilie Jeronimo EGFR-NON AF CAMBODIAN >60 Normal >=60 [facility] Comment on above: Performed By: #### R ENAL, MG #### [facility] [address] [address] [address] Emilie Jeronimo Glucose [Mass/Vol] 120 mg/dL Critically high 74-106 [facility] Comment on above: Performed By: #### R ENAL, MG #### [facility] [address] [place] [address] Dr. Emilie Jeronimo Potassium [Moles/Vol] 3.1 mmol/L Critically low 3.5-5.1 [facility] Comment on above: Performed By: #### R ENAL, MG #### [facility] [address] [place] [address] Dr. Emliie Jeronimo Sodium [Moles/Vol] 142 mmol/L Normal 136-145 [facility] Comment on above: Performed By: #### R ENAL, MG #### [facility] [address] [place] [address] Dr. Emilie Jeronimo Urea nitrogen [Mass/Vol] 21.0 mg/dL Critically high 7.0-18.0 [facility] Comment on above: Performed By: #### R ENAL, MG #### [facility] [address] [place] [address] Dr. Emilie Jeronimo Urea nitrogen/Creatinine [Mass ratio] 30.0 mg/mg Normal [facility] Comment on above: Performed By: #### R ENAL, MG #### [facility] [address] [place] [address] Dr. Emilie Jeronimo MAGNESIUMon 03-22-2022 Magnesium [Mass/Vol] 1.5 mg/dL Critically low 1.8-2.4 [facility] Comment on above: Performed By: #### R ENAL, MG #### [facility] [address] [place] [address] Dr. Emilie Jeronimo RENAL FUNCTION PANELon 03-22 Albumin [Mass/Vol] 3.6 g/dL Normal 3.4-5.0 [facility] Comment on above: Performed By: #### R ENAL, MG #### [facility] [address] [place] [address] Dr. Emilie Jeronimo Calcium [Mass/Vol] 6.4 mg/dL Critically low 8.5-10.1 [facility] Comment on above: Performed By: #### R ENAL, MG #### [facility] [address] [place] [address] Dr. Emilie Jeronimo Chloride [Moles/Vol] 101 mmol/L Normal 98-107 [facility] Comment on above: Performed By: #### R ENAL, MG #### [facility] [address] [place] [address] Dr. Emilie Jeronimo CO2 [Moles/Vol] 31.4 mmol/L Normal 21.0-32.0 [facility] Comment on above: Performed By: #### R ENAL, MG #### [facility] [address] [place] [address] Dr. Emilie Jeronimo Creatinine [Mass/Vol] 0.77 mg/dL Normal 0.55-1.02 [facility] Comment on above: Performed By: #### R ENAL, MG #### [facility] [address] [place] [address] Dr. Emilie Jeronimo EGFR-AF CAMBODIAN >60 Normal >=60 [facility] Comment on above: Performed By: #### R ENAL, MG #### [facility] [address] [place] [address] Dr. Emilie Jeronimo EGFR-NON AF CAMBODIAN >60 Normal >=60 [facility] Comment on above: Performed By: #### R ENAL, MG #### [facility] [address] [place] [address] Dr. Emilie Jeronimo Glucose [Mass/Vol] 150 mg/dL Critically high 74-106 [facility] Comment on above: Performed By: #### R ZEESHAN, MG #### [facility] [address] [address] [address] Emilie Jeronimo Phosphate [Mass/Vol] 4.8 mg/dL Critically high 2.6-4.7 [facility] Comment on above: Performed By: #### R ZEESHAN, MG #### [facility] [address] [address] [address] Emilie Jeronimo Potassium [Moles/Vol] 2.7 mmol/L Critically low 3.5-5.1 [facility] Comment on above: Result Comment: TEST REPEATED CRITICAL VALUE VERIFIED Performed By: #### R ZEESHAN MG #### [facility] [address] [place] [address] Dr. Emilie Jeronimo Sodium [Moles/Vol] 142 mmol/L Normal 136-145 [facility] Comment on above: Performed By: #### R ZEESHAN, MG #### [facility] [address] [address] [address] Emilie Jeronimo Urea nitrogen [Mass/Vol] 29.0 mg/dL Critically high 7.0-18.0 [facility] Comment on above: Performed By: #### R ZEESHAN, MG #### [facility] [address] [place] [address] Dr. Emilie Jeronimo VITAMIN D 25 OHon 03-22-2022 VIT D 25-OH 32.5 ng/mL Normal [facility] Comment on above: Performed By: #### V ITAD #### [facility] [address] [place] [address] Dr. Emilie Jeronimo VIT D RANGES SEE BELOW Normal [facility] Comment on above: Result Comment: <20 ng/mL Vit D deficient 20 - <30 ng/mL Vit D insufficient 30 - 100 ng/mL Vit D sufficient >100 ng/mL Potential Toxicity Performed By: #### V ITAD #### [facility] [address] [place] [address] Dr. Emilie Jeronimo Tobacco Screening.on 022 Adult depression screening assessment No -[facility] DO Work Phone: Fall risk assessment a) No falls within the last year [facility] DO Work Phone: Tobacco use status CP b) No [facility] DO Work Phone: Automated erythrocytes count in urine sediment (number/area)on 02-17-2021 RBC Auto (Urine sed) [#/Area] 0-1 [HPF] [facility] Automated leukocytes count i n urine sediment (number/area)on 02-17-2021 WBC Auto (Urine sed) [#/Area] 20-49 [HPF] [facility] Basophils Auto (Bld) [#/Vol] on 02-17-2021 Basophils (Bld) [#/Vol] 0.1 10*3/uL 0.0-0.2 [facility] Basophils/100 WBC Auto (Bld) on 02-17-2021 Basophils/100 WBC (Bld) 0.8 % [facility] Bilirubin Test strip Ql (U)o n 02-17-2021 Bilirubin Ql (U) Negative Negative [facility] Blood hemoglobin measurement (mass/volume)on 02-17-2021 Hemoglobin (Bld) [Mass/Vol] 12.6 g/dL 11.8-15.4 [facility] Blood leukocytes automated c ount (number/volume)on 02-17-2021 WBC (Bld) [#/Vol] 7.3 10*3/uL 4.5-11.0 [facility] Color Auto (U)on 02-17-2021 Color (U) Yellow Yellow [facility] Creatinine and Glomerular fi ltration rate.predicted panel (S/P/Bld)on 02-17-2021 Creatinine [Mass/Vol] 0.78 mg/dL 0.44-1.03 [facility] Eosinophils Auto (Bld) [#/Vo l]on 02-17-2021 Eosinophils (Bld) [#/Vol] 0.2 10*3/uL 0.0-0.45 [facility] Eosinophils/100 WBC Auto (Bl d)on 02-17-2021 Eosinophils/100 WBC (Bld) 2.2 % [facility] Erythrocyte distribution wid th Auto (RBC) [Ratio]on 02-17-2021 Erythrocyte distribution width (RBC) [Ratio] 14.5 % 11.9-15.3 [facility] Estimated glomerular filtrat ion rate (GFR) non- Americanon 02-17-2021 GFR/1.73 sq M.predicted among non-blacks MDRD (S/P/Bld) [Vol rate/Area] > 60 mL/Min [facility] Hematocrit Auto (Bld) [Volum e fraction]on 02-17-2021 Hematocrit (Bld) [Volume fraction] 37.5 % 34.0-46.4 [facility] Ketones Auto test strip (U) [Mass/Vol]on 02-17-2021 Ketones (U) [Mass/Vol] Negative Negative [facility] Laboratory - Hematology and Cell countson 02-17-2021 Nucleated RBC/100 WBC (Bld) [Ratio] 0.0 % 0-0.5 [facility] - Urinalysison Hyaline casts LM Ql (Urine sed) 0-8 [LPF] [facility] Lymphocytes Auto (Bld) [#/Vo l]on 02-17-2021 Lymphocytes (Bld) [#/Vol] 1.6 10*3/uL 1.00-4.8 [facility] Lymphocytes/100 WBC Auto (Bl d)on 02-17-2021 Lymphocytes/100 WBC (Bld) 21.5 % [facility] MCH Auto (RBC) [Entitic mass ]on 02-17-2021 MCH (RBC) [Entitic mass] 32.4 pg 24.7-34.3 [facility] MCHC Auto (RBC) [Mass/Vol]on 02-17-2021 MCHC (RBC) [Mass/Vol] 33.6 g/dL 32.0-35.0 [facility] MCV Auto (RBC) [Entitic vol] on 02-17-2021 MCV (RBC) [Entitic vol] 96.3 fL 80-100 [facility] Monocytes Auto (Bld) [#/Vol] on 02-17-2021 Monocytes (Bld) [#/Vol] 0.7 10*3/uL 0.0-0.8 [facility] Monocytes/100 WBC Auto (Bld) on 02-17-2021 Monocytes/100 WBC (Bld) 9.6 % [facility] Neutrophils Auto (Bld) [#/Vo l]on 02-17-2021 Neutrophils (Bld) [#/Vol] 4.8 10*3/uL 1.8-7.7 [facility] Neutrophils/100 WBC Auto (Bl d)on 02-17-2021 Neutrophils/100 WBC (Bld) 65.9 % [facility] Nitrite Test strip Ql (U)on 02-17-2021 Nitrite Ql (U) Negative Negative [facility] No Panel Informationon 02-17 Estimated GFR () > 60 mL/Min [facility] Comment on above: GFR estimated refere nce range: According to KDOQI guidelines, <60 ml/min/1.73m2 is sufficient to diagnose a patient with chronic kidney disease. Pharmacy Creatinine Clearance (Chem N/A [facility] Platelet mean volume Auto (B ld) [Entitic vol]on 02-17-2021 Platelet mean volume (Bld) [Entitic vol] 7.6 fL 6.3-10.7 [facility] Platelets Auto (Bld) [#/Vol] on 02-17-2021 Platelets (Bld) [#/Vol] 206 10*3/uL 150-450 [facility] Protein Auto test strip (U) [Mass/Vol]on 02-17-2021 Protein (U) [Mass/Vol] Negative Negative [facility] RBC Auto (Bld) [#/Vol]on RBC (Bld) [#/Vol] 3.89 10*6/uL 3.60-5.00 [facility] Serum or plasma calcium twan urement (mass/volume)on 02-17-2021 Calcium [Mass/Vol] 7.6 mg/dL 8.2-10.2 [facility] Serum or plasma chloride jewel surement (moles/volume)on 02-17-2021 Chloride [Moles/Vol] 100 mmol/L 95-114 [facility] Serum or plasma glucose twan urement (mass/volume)on 02-17-2021 Glucose [Mass/Vol] 97 mg/dL 70-100 [facility] Comment on above: ADA recommended refe rence rangeRandom Glucose Reference Range is dependent on time and content of last meal. Glucose of more than 200 mg/dL in a nonstressed, ambulatory subject supports the diagnosis of Diabetes Mellitus. Serum or plasma potassium me asurement (moles/volume)on 02-17-2021 Potassium [Moles/Vol] 3.8 mmol/L 3.5-5.1 [facility] Serum or plasma sodium measu rement (moles/volume)on 02-17-2021 Sodium [Moles/Vol] 139 mmol/L 136-146 [facility] Serum or plasma total carbon dioxide measurement (moles/volume)on 02-17-2021 CO2 [Moles/Vol] 28.3 mmol/L 22.0-30.0 [facility] Serum or plasma urea nitroge n measurement (mass/volume)on 02-17-2021 Urea nitrogen [Mass/Vol] 22 mg/dL 9-23 [facility] Specific gravity Auto test s trip (U) [Rel density]on 02-17-2021 Specific gravity (U) [Rel density] 1.021 1.001-1.030 [facility] Squamous epithelial cells de tection in urine sediment by light microscopyon 02-17-2021 Epithelial cells.squamous LM Ql (Urine sed) 0-1 [HPF] [facility] Urine bacteria detection by automated methodon 02-17-2021 Bacteria Auto Ql (U) 2+ None Seen [facility] Urine clarity by refractomet ry automatedon 02-17-2021 Clarity Refractometry automated (U) Clear Clear [facility] Urine culture routineon 01-29 Bacteria identified Cx Nom (U) Aerococcus urinae [facility] Urine glucose measurement by automated test strip (mass/volume)on 02-17-2021 Glucose Auto test strip (U) [Mass/Vol] Normal mg/dL Normal [facility] Urine hemoglobin detection b y automated test stripon 02-17-2021 Hemoglobin Auto test strip Ql (U) Negative Negative [facility] Urine leukocyte esterase det ection by automated test stripon 02-17-2021 Leukocyte esterase Auto test strip Ql (U) 3+ Negative [facility] Urobilinogen Auto test strip (U) [Mass/Vol]on 02-17-2021 Urobilinogen (U) [Mass/Vol] Normal mg/dL Normal [facility] Yeast detection in urine sed iment by light microscopyon 02-17-2021 Yeast LM Ql (Urine sed) None seen [HPF] None Seen [facility] pH Auto test strip (U)on pH (U) 5.0 [pH] 5.0-9.0 [facility] Cesar 03-12-2020 ALT [Catalytic activity/Vol] 16 U/L Normal 7 - 45 [facility] Comment on above: Result Comment: Josee ents treated with Sulfasalazine may generate falsely decreased results for ALT. Performed By: #### A LT #### [address] [address] Jamari 03-12-2020 AST [Catalytic activity/Vol] 22 U/L Normal 9 - 39 [facility] Comment on above: Performed By: #### A ST #### [address] [address] CREATININEon 03-12-2020 Creatinine [Mass/Vol] mg/dL Normal >60 [facility] Comment on above: Result Comment: CALC ULATIONS OF ESTIMATED GFR ARE PERFORMED USING THE MDRD STUDY EQUATION FOR THE IDMS-TRACEABLE CREATININE METHODS. CLIN CHEM 2007;53:766-72 Performed By: #### C REAT #### [address] [address] Creatinine [Mass/Vol] 0.84 mg/dL Normal 0.50 - 1.05 [facility] Comment on above: Performed By: #### C REAT #### [address] [address] ELECTROLYTE PANELon 03-12-20 20 Anion gap [Moles/Vol] 15 mmol/L Normal 10 - 20 [facility] Comment on above: Performed By: #### E LECT #### [address] [address] Chloride [Moles/Vol] 102 mmol/L Normal 98 - 107 [facility] Comment on above: Performed By: #### E LECT #### [address] [address] HCO3 (Bld) [Moles/Vol] 30 mmol/L Normal 21 - 32 [facility] Comment on above: Performed By: #### E LECT #### [address] [address] Potassium [Moles/Vol] 4.0 mmol/L Normal 3.5 - 5.3 [facility] Comment on above: Performed By: #### E LECT #### [address] [address] Sodium [Moles/Vol] 143 mmol/L Normal 136 - 145 [facility] Comment on above: Performed By: #### E LECT #### [address] [address] LIPID PANEL (CORONARY RISK 2 )on 03-12-2020 Cholesterol [Mass/Vol] 99 mg/dL Normal 0 - 199 [facility] Comment on above: Result Comment: [...] dosing. Performed By: #### L IPID #### [address] [address] Cholesterol in HDL [Mass/Vol] 60.0 mg/dL Normal [facility] Comment on above: Result Comment: . AGE VERY LOW LOW NORMAL HIGH 0-19 Y < 35 < 40 40-45 ---- 20-24 Y ---- < 40 >45 ---- >24 Y ---- < 40 40-60 >60 . Performed By: #### L IPID #### [address] [address] Cholesterol in LDL [Mass/Vol] 23 mg/dL Normal 0 - 99 [facility] Comment on above: Result Comment: . NEAR BORD AGE DESIRABLE OPTIMAL HIGH HIGH VERY HIGH 0-19 Y 0 - 109 --- 110-129 >/= 130 ---- 20-24 Y 0 - 119 --- 120-159 >/= 160 ---- >24 Y 0 - 99 100-129 130-159 160-189 >/=190 . Performed By: #### L IPID #### [address] [address] Cholesterol in VLDL [Mass/Vol] 16 mg/dL Normal 0 - 40 [facility] Comment on above: Performed By: #### L IPID #### [address] [address] Cholesterol.total/C holesterol in HDL [Mass ratio] 1.7 {ratio} Normal [facility] Comment on above: Result Comment: REF VALUES DESIRABLE < 3.4 HIGH RISK > 5.0 Performed By: #### L IPID #### [address] [address] Triglyceride [Mass/Vol] 79 mg/dL Normal 0 - 149 [facility] Comment on above: Result Comment: [...] dosing. Performed By: #### L IPID #### [address] [address] PARATHYROID HORMONE,INTACTon 03-12-2020 PARATHYROID HORMONE,INTACT < 6.3 Low 18.5 - 88.0 [facility] Comment on above: Result Comment: Josee ents receiving more than 5 mg/day of biotin may have interference in test results. A sample should be taken no sooner than eight hours after previous dose. Contact the testing laboratory for additional information. Performed By: #### P TH #### [address] [address] RENAL FUNCTION PANELon 03-12 Albumin [Mass/Vol] 4.3 g/dL Normal 3.4 - 5.0 [facility] Comment on above: Performed By: #### T SH2 #### [address] [address] Anion gap [Moles/Vol] 16 mmol/L Normal 10 - 20 [facility] Comment on above: Performed By: #### T SH2 #### [address] [address] Calcium [Mass/Vol] 8.2 mg/dL Low 8.6 - 10.3 [facility] Comment on above: Performed By: #### T SH2 #### [address] [address] Chloride [Moles/Vol] 102 mmol/L Normal 98 - 107 [facility] Comment on above: Performed By: #### T SH2 #### [address] [address] Creatinine [Mass/Vol] 0.82 mg/dL Normal 0.50 - 1.05 [facility] Comment on above: Performed By: #### T SH2 #### [address] [address] GFR- AM. >60 Normal >60 [facility] Comment on above: Result Comment: CALC ULATIONS OF ESTIMATED GFR ARE PERFORMED USING THE MDRD STUDY EQUATION FOR THE IDMS-TRACEABLE CREATININE METHODS. CLIN CHEM 2007;53:766-72 Performed By: #### T SH2 #### [address] [address] GFR-NON AM. >60 Normal >60 [facility] Comment on above: Performed By: #### T SH2 #### [address] [address] Glucose [Mass/Vol] 97 mg/dL Normal 74 - 99 [facility] Comment on above: Performed By: #### T SH2 #### [address] [address] HCO3 (Bld) [Moles/Vol] 29 mmol/L Normal 21 - 32 [facility] Comment on above: Performed By: #### T SH2 #### [address] [address] Phosphate [Mass/Vol] 5.3 mg/dL High 2.5 - 4.9 [facility] Comment on above: Result Comment: The performance characteristics of phosphorus testing in heparinized plasma have been validated by the individual laboratory site where testing is performed. Testing on heparinized plasma is not approved by the FDA; however, such approval is not necessary. Performed By: #### T SH2 #### [address] [address] Potassium [Moles/Vol] 3.7 mmol/L Normal 3.5 - 5.3 [facility] Comment on above: Performed By: #### T SH2 #### [address] [address] Sodium [Moles/Vol] 143 mmol/L Normal 136 - 145 [facility] Comment on above: Performed By: #### T SH2 #### [address] [address] Urea nitrogen [Mass/Vol] 23 mg/dL Normal 6 - 23 [facility] Comment on above: Performed By: #### T SH2 #### [address] [address] UREA NITROGENon 03-12-2020 Urea nitrogen [Mass/Vol] 23 mg/dL Normal 6 - 23 [facility] Comment on above: Performed By: #### U TARAS #### [address] [address] VITAMIN D, 25-HYDROXYon 02-27 VITAMIN D, 25-HYDROXY 43 ng/mL Normal [facility] Comment on above: Result Comment: . DEFICIENCY: < 20 NG/ML INSUFFICIENCY: 20-29 NG/ML SUFFICIENCY: 30-100 NG/ML THIS ASSAY ACCURATELY QUANTIFIES THE SUM OF VITAMIN D3, 25-HYDROXY AND VIT D2,25-HYDROXY. Performed By: #### T SH2 #### [address] [address] THYROXINEon 09-17-2019 T4 [Mass/Vol] 8.0 ug/dL Normal 4.5 - 11.1 [facility] Comment on above: Performed By: #### T 4 #### [address] [address] THYROXINE,FREEon 09-17-2019 THYROXINE,FREE 0.70 ng/dL Normal 0.61 - 1.27 [facility] Comment on above: Result Comment: Thyr oxine Free testing is performed using different testing methodology at [facility] than at other [facility]. Direct result comparisons should only be made within the same method. Patients receiving more than 5 mg/day of biotin may have interference in test results. A sample should be taken no sooner than eight hours after previous dose. Performed By: #### T 4FRE #### [address] [address] TSHon 09-17-2019 TSH Qn 6.25 m[IU]/L High 0.44 - 3.98 [facility] Comment on above: Result Comment: TSH testing is performed using different testing methodology at [facility] than at other [facility]. Direct result comparisons should only be made within the same method. Performed By: #### T SH2 #### [address] [address] Vital Signs Date Time Vital Sign Value Performing Clinician Facility 08-07-2024 10:44-0400 Body height 144.8 cm Seema Sutherland NP Work Phone: [facility] 08-07-2024 10:44-0400 Body mass index (BMI) [Ratio] 22.55 kg/m2 Seema Sutherland [employer] Work Phone: [facility] 08-07-2024 10:44-0400 Body temperature 98.8 [degF] Seema Sutherland [employer] Work Phone: [facility] 08-07-2024 10:44-0400 Body weight 47.27 kg Seema Sutherland [employer] Work Phone: [facility] 08-07-2024 10:44-0400 Heart rate 95 /min Seema Sutherland [employer] Work Phone: [facility] 08-07-2024 10:44-0400 Respiratory rate 18 /min Seema Sutherland [employer] Work Phone: [facility] 08-07-2024 10:44-0400 SaO2% (BldA) [Mass fraction] 98 % Seema Sutherland [employer] Work Phone: [facility] 03-07-2024 11:44-0400 Body height 147.32 cm [facility] 03-07-2024 11:44-0400 Body mass index (BMI) [Ratio] 22.8 kg/m2 [facility] 03-07-2024 11:44-0400 Body temperature 97.6 [degF] [facility] 03-07-2024 11:44-0400 Body weight 49.44 kg [facility] 03-07-2024 11:44-0400 Diastolic blood pressure 60 mm[Hg] [facility] 03-07-2024 11:44-0400 Heart rate 96 /min [facility] 03-07-2024 11:44-0400 Respiratory rate 16 /min [facility] 03-07-2024 11:44-0400 SaO2% (BldA) [Mass fraction] 86 % [facility] 03-07-2024 11:44-0400 Systolic blood pressure 102 mm[Hg] [facility] 07-20-2023 10:40-0400 Body height 147.32 cm Pratik A Naderer Work Phone: [facility] DO Work Phone: 07-20-2023 10:40-0400 Body mass index (BMI) [Ratio] 21.11 kg/m2 Pratik A Naderer Work Phone: [facility] DO Work Phone: 07-20-2023 10:40-0400 Body surface area Derived from formula 1.36 m2 Pratik A Naderer Work Phone: [facility] DO Work Phone: 07-20-2023 10:40-0400 Body weight 45.81 kg Pratik A Naderer Work Phone: [facility] DO Work Phone: 07-20-2023 10:40-0400 Diastolic blood pressure 66 mm[Hg] Pratik A Naderer Work Phone: [facility] 250 DO Work Phone: 07-20-2023 10:40-0400 Heart rate 60 /min Pratik A Naderer Work Phone: [facility] 250 DO Work Phone: 07-20-2023 10:40-0400 Systolic blood pressure 100 mm[Hg] Pratik A Naderer Work Phone: [facility] 250 DO Work Phone: 02-08-2023 14:00-0400 Body height 147.32 cm Madhav [place] Other [employer] Other 02-08-2023 14:00-0400 Body mass index (BMI) [Ratio] 22.57 kg/m2 Madhav [place] Other [employer] Other 02-08-2023 14:00-0400 Body weight 48.99 kg Madhav [place] Other [employer] Other 02-08-2023 14:00-0400 Diastolic blood pressure 60 mm[Hg] Madhav [place] Other [employer] Other 02-08-2023 14:00-0400 Systolic blood pressure 105 mm[Hg] Madhav [place] Other [employer] Other 01-12-2023 11:13-0400 Body height 147.32 cm Pratik Derrick Naderer Work Phone: [facility] [employer] 250 DO Work Phone: 01-12-2023 11:13-0400 Body mass index (BMI) [Ratio] 21.95 kg/m2 Pratik Meza Naderer Work Phone: [facility] [employer] 250 DO Work Phone: 01-12-2023 11:13-0400 Body surface area Derived from formula 1.38 m2 Pratik Derrick Naderer Work Phone: [facility] [employer] 250 DO Work Phone: 01-12-2023 11:13-0400 Body weight 47.63 kg Pratik A Naderer Work Phone: [facility] 250 DO Work Phone: 01-12-2023 11:13-0400 Diastolic blood pressure 60 mm[Hg] Pratik A Naderer Work Phone: [facility] 250 DO Work Phone: 01-12-2023 11:13-0400 Heart rate 88 /min Pratik Meza Naderer Work Phone: [facility] 250 DO Work Phone: 01-12-2023 11:13-0400 Systolic blood pressure 102 mm[Hg] Pratik Tadeo Work Phone: [facility] 250 DO Work Phone: 08-02-2022 13:32-0400 Diastolic blood pressure 62 mm[Hg] Seema Aichholz Work Phone: [facility] 08-02-2022 13:32-0400 Heart rate 63 /min Seema Aichholz Work Phone: [facility] 08-02-2022 13:32-0400 Respiratory rate 18 /min Seema Aichholz Work Phone: [facility] 08-02-2022 13:32-0400 SaO2% (BldA) [Mass fraction] 100 % Seema Aichholz Work Phone: [facility] 08-02-2022 13:32-0400 Systolic blood pressure 122 mm[Hg] Seema Aichholz Work Phone: [facility] 08-02-2022 12:26-0400 Body height 147.32 cm Seema Aichholz Work Phone: [facility] 08-02-2022 12:26-0400 Body temperature 98.3 [degF] Seema Aichholz Work Phone: [facility] 08-02-2022 12:26-0400 Body weight 48.53 kg Seema Aichholz Work Phone: [facility] 06-23-2022 15:29-0400 Body height 147.32 cm Pratik Tadeo Work Phone: [facility] 250 DO Work Phone: 06-23-2022 15:29-0400 Body mass index (BMI) [Ratio] 22.62 kg/m2 Pratik Meza Naderer Work Phone: [facility] 250 DO Work Phone: 06-23-2022 15:29-0400 Body surface area Derived from formula 1.4 m2 Pratik Meza Naderer Work Phone: [facility] 250 DO Work Phone: 06-23-2022 15:29-0400 Body weight 49.1 kg Pratik Meza Naderer Work Phone: [facility] 250 DO Work Phone: 06-23-2022 15:29-0400 Diastolic blood pressure 60 mm[Hg] Pratik Meza Naderer Work Phone: [facility] 250 DO Work Phone: 06-23-2022 15:29-0400 Heart rate 62 /min Pratik Bartonerer Work Phone: [facility] 250 DO Work Phone: 06-23-2022 15:29-0400 Systolic blood pressure 110 mm[Hg] Pratik Bartonerer Work Phone: [facility] 250 DO Work Phone: 05-11-2022 11:17-0400 Blood Pressure Location Med TRINA [facility] 05-11-2022 11:17-0400 Diastolic blood pressure 63 mm[Hg] Med JENKINS [facility] 05-11-2022 11:17-0400 Heart rate 81 /min Med JENKINS [facility] 05-11-2022 11:17-0400 Respiratory rate 16 /min Med JENKINS [facility] 05-11-2022 11:17-0400 Systolic blood pressure 125 mm[Hg] Med JENKINS [facility] 03-24-2022 13:00-0400 Body height 147.32 cm Aba Giovanny Other [employer] Other 03-24-2022 13:00-0400 Body mass index (BMI) [Ratio] 22.28 kg/m2 Aba Giovanny Other [employer] Other 03-24-2022 13:00-0400 Body temperature 97.7 [degF] Aba Giovanny Other [employer] Other 03-24-2022 13:00-0400 Body weight 48.35 kg Aba Giovanny Other [employer] Other 03-24-2022 13:00-0400 Diastolic blood pressure 70 mm[Hg] Aba Giovanny Other [employer] Other 03-24-2022 13:00-0400 Respiratory rate 18 /min Aba Giovanny Other [employer] Other 03-24-2022 13:00-0400 SaO2% (BldA) [Mass fraction] 97 % Aba Giovanny Other [employer] Other 03-24-2022 13:00-0400 Systolic blood pressure 110 mm[Hg] Aba Giovanny Other [employer] Other 12-29-2021 11:00-0500 Body height 147.32 cm Pratik A Naderer Work Phone: [facility] 250 DO Work Phone: 12-29-2021 11:00-0500 Body mass index (BMI) [Ratio] 22.99 kg/m2 Pratik A Naderer Work Phone: [facility] [employer] 250 DO Work Phone: 12-29-2021 11:00-0500 Body surface area Derived from formula 1.41 m2 Pratik A Naderer Work Phone: [facility] [employer] 250 DO Work Phone: 12-29-2021 11:00-0500 Body weight 49.9 kg Pratik A Naderer Work Phone: [facility] 250 DO Work Phone: 12-29-2021 11:00-0500 Diastolic blood pressure 60 mm[Hg] Pratik A Naderer Work Phone: [facility] 250 DO Work Phone: 12-29-2021 11:00-0500 Heart rate 68 /min Pratik A Naderer Work Phone: [facility] 250 DO Work Phone: 12-29-2021 11:00-0500 Systolic blood pressure 110 mm[Hg] Pratik A Naderer Work Phone: [facility] 250 DO Work Phone: 10-18-2021 14:30-0500 Body height 147.32 cm Alyssa Weller Other [employer] Other 10-18-2021 14:30-0500 Body mass index (BMI) [Ratio] 22.99 kg/m2 Alyssa Ginty Other [employer] Other 10-18-2021 14:30-0500 Body temperature 97.9 [degF] Alyssa Ginty Other [employer] Other 10-18-2021 14:30-0500 Body weight 49.9 kg Alyssa Ginty Other [employer] Other 10-18-2021 14:30-0500 Diastolic blood pressure 49 mm[Hg] Alyssa Ginty Other [employer] Other 10-18-2021 14:30-0500 Respiratory rate 18 /min Alyssa Ginty Other [employer] Other 10-18-2021 14:30-0500 SaO2% (BldA) [Mass fraction] 98 % Alyssa Ginty Other [employer] Other 10-18-2021 14:30-0500 Systolic blood pressure 136 mm[Hg] Alyssa Ginty Other [employer] Other 09-07-2021 12:15-0500 Body height 147.32 cm Carie Keith Other [employer] Other 09-07-2021 12:15-0500 Body mass index (BMI) [Ratio] 22.49 kg/m2 Carie Keith Other [employer] Other 09-07-2021 12:15-0500 Body weight 48.81 kg Carie Keith Other [employer] Other 09-02-2021 13:40-0400 Body height 147.32 cm Aba Giovanny Other [employer] Other 09-02-2021 13:40-0400 Body mass index (BMI) [Ratio] 22.53 kg/m2 Aba Giovanny Other [employer] Other 09-02-2021 13:40-0400 Body temperature 96.9 [degF] Aba Giovanny Other [employer] Other 09-02-2021 13:40-0400 Body weight 48.9 kg Aba Giovanny Other [employer] Other 09-02-2021 13:40-0400 Diastolic blood pressure 72 mm[Hg] Aba Giovanny Other [employer] Other 09-02-2021 13:40-0400 Respiratory rate 18 /min Aba Giovanny Other [employer] Other 09-02-2021 13:40-0400 SaO2% (BldA) [Mass fraction] 98 % Aba Giovanny Other [employer] Other 09-02-2021 13:40-0400 Systolic blood pressure 110 mm[Hg] Aba Giovanny Other [employer] Other Encounters Encounter Date Encounter Type Care Provider Facility Start: 10-16-2024 ambulatory Med JENKINS Facility :[facility] Start: 08-07-2024 End: 08-07-2024 Bamboo flowsheet Seema Sutherland [employer] Work Phone: [facility] Start: 08-07-2024 End: 08-10-2024 Bamboo flowsheet Seema Sutherland [employer] Work Phone: [facility] Start: 08-07-2024 End: 08-10-2024 Clinisync Result Encounter Generic External Data Provider [facility] External Department Unsolicited Start: 08-07-2024 End: 08-07-2024 Office outpatient visit 25 minutes Seema Sutherland [employer] Work Phone: [facility] Comment on above: Closed nondisplaced fracture of acromial end of right clavicle with routine healing, subsequent encounter (Primary Dx); Idiopathic hypoparathyroidism (CMS/HCC); Rheumatoid arthritis, unspecified (CMS/HCC); Major depressive disorder, single episode, mild (HCC) (CMS/HCC); Parkinson's disease with fluctuating manifestations, unspecified whether dyskinesia present (CMS/HCC); Hemiparesis, right (CMS/HCC); Diarrhea of presumed infectious origin Start: 08-07-2024 End: 08-07-2024 ambulatory SEEMA AICHHOLZ Not Available Start: 07-18-2024 End: 07-19-2024 Emergency department patient visit [facility] Start: 07-18-2024 End: 07-18-2024 ambulatory [facility] Start: 06-13-2024 End: 06-13-2024 ambulatory SERGIO CABRAL Not Available Start: 04-10-2024 End: 04-10-2024 ambulatory Med JENKINS Facility:[facility] Start: 04-10-2024 End: 04-10-2024 Patient encounter procedure Med JENKINS [facility] Start: 03-20-2024 End: 03-20-2024 ambulatory DESTINEY DUDLEY Not Available Start: 03-11-2024 End: 03-11-2024 ambulatory SEEMA AICHHOLZ Not Available Start: 03-07-2024 End: 03-07-2024 ambulatory [facility] Work Phone: Start: 03-07-2024 End: 03-07-2024 Patient encounter procedure [facility] Steve Work Phone: Start: 02-27-2024 Non-patient / Non-visit [facility] [employer] Work Phone: Start: 02-26-2024 End: 02-26-2024 ambulatory Med JENKINS Facility:[facility] Start: 02-26-2024 End: 02-26-2024 Patient encounter procedure Med JENKINS [facility] Start: 11-13-2023 End: 12-19-2023 Pre-admission assessment Med JENKINS [facility] Start: 11-13-2023 End: 11-13-2023 ambulatory Med JENKINS Facility:[facility] Start: 11-13-2023 End: 11-13-2023 Patient encounter procedure Med JENKINS [facility] Start: 10-03-2023 ambulatory Med JENKINS Facility:[facility] Start: 09-27-2023 End: 09-27-2023 ambulatory Med JENKINS Facility:[facility] Start: 09-27-2023 End: 09-27-2023 Patient encounter procedure Med JENKINS [facility] Start: 08-16-2023 End: 08-16-2023 ambulatory Med JENKINS Facility:[facility] Start: 08-16-2023 End: 08-16-2023 Lab Drop off Med JENKINS [facility] Start: 08-16-2023 End: 08-16-2023 ambulatory Med JENKINS Facility:[facility] Start: 08-16-2023 End: 08-16-2023 Patient encounter procedure Med JENKINS [facility] Start: 07-20-2023 Office outpatient vi sit 25 minutes Pratik Derrick Tadeo Work Phone: [facility] 250 DO Work Phone: Start: 07-20-2023 ambulatory Thompson Turcios Facility : Start: 07-05-2023 End: 07-05-2023 ambulatory Seema J Lancehholz Facility:[facility] Start: 07-05-2023 End: 07-05-2023 ambulatory Seema J Aichholz Work Phone: [facility] Work Phone: Start: 07-05-2023 End: 07-05-2023 Patient encounter procedure Seema Lnacesonnyjasmin Work Phone: [facility] [address] Work Phone: Start: 05-25-2023 End: 05-25-2023 ambulatory Aba Giovanny Other [employer] Other Start: 05-25-2023 Telephone encounter Aba Giovanny [facility] Start: 05-11-2023 End: 05-11-2023 ambulatory Med JENKINS Facility:[facility] Start: 05-11-2023 End: 05-11-2023 Patient encounter procedure Med JENKINS [facility] Start: 05-08-2023 End: 05-08-2023 ambulatory Aba Giovanny Other [employer] Other Start: 05-08-2023 Telephone encounter Aba Giovanny [facility] Start: 02-08-2023 End: 02-08-2023 ambulatory Madhav [place] Other [employer] Other Start: 02-08-2023 Patient encounter procedure Madhav [place] [facility] Start: 01-12-2023 ambulatory Donna Turcios Facility : Start: 01-12-2023 Office outpatient vi sit 25 minutes Pratik Tadeo Work Phone: [facility] 250 DO Work Phone: Start: 11-30-2022 End: 11-30-2022 ambulatory Aba Giovanny Other [employer] Other Start: 11-30-2022 Telephone encounter Aba Giovanny [facility] Start: 11-29-2022 End: 11-30-2022 ambulatory FLAME CHANNELER SEEMA SUTHERLAND Facility:[facility] Start: 08-03-2022 End: 08-03-2022 ambulatory Madhav [place] Other [employer] Other Start: 08-03-2022 Telephone encounter Madhav [facility] Start: 08-02-2022 End: 08-02-2022 ambulatory Seemaderrick Moz Facility:[facility] Start: 08-02-2022 End: 08-02-2022 Admission to same day surgery center Seema Sutherland Work Phone: [facility] Start: 08-02-2022 End: 08-02-2022 ambulatory Seema J Tateholz Work Phone: [facility] Work Phone: Start: 07-29-2022 End: 07-29-2022 ambulatory Madhav [place] Facility:[facility] Start: 07-29-2022 End: 07-29-2022 Patient encounter procedure Seema Koko Work Phone: [facility] Start: 07-13-2022 Rx Renewal Pratik Tadeo Work Phone: [facility] 250 DO Work Phone: Start: 07-11-2022 End: 07-12-2022 ambulatory OTILIA YBARRAALCIDESUmer Facility:[facility] Start: 06-23-2022 Office outpatient vi sit 25 minutes Pratik Derrick Tadeo Work Phone: [facility] 250 DO Work Phone: Start: 06-22-2022 End: 06-22-2022 Patient encounter procedure Med JENKINS [facility] [employer] Start: 06-15-2022 End: 06-16-[address] DONNA TURCIOS Facility:[facility] Start: 05-23-2022 End: 05-23-2022 Patient encounter procedure Med JENKINS [facility] Start: 05-17-2022 End: 05-17-2022 Lab Drop off Med JENKINS [facility] Start: 05-17-2022 End: 05-17-2022 Patient encounter procedure Med JENKINS [facility] [employer] Start: 05-11-2022 End: 05-11-2022 Patient encounter procedure Med JENKINS [facility] [employer] Start: 04-20-2022 End: 04-21-2022 ambulatory OTILIA SUTHERLAND Facility:[facility] Start: 03-24-2022 End: 03-24-2022 ambulatory Aba Giovanny Other [facility] [employer] Other Start: 03-24-2022 Office outpatient vi sit 25 minutes Aba Giovanny [facility] Steve Start: 03-23-2022 End: 03-23-2022 ambulatory RODERICK KONG Facility:[facility] Start: 03-23-2022 End: 03-24-2022 ambulatory ABA GIOVANNY Facility:[facility] Start: 03-22-2022 End: 03-23-2022 ambulatory ABA GIOVANNY [facility] [employer] Other Start: 03-22-2022 Telephone encounter Aba Giovanny [facility] Start: 12-29-2021 Office outpatient vi sit 25 minutes Pratik Tadeo Work Phone: [facility] 250 DO Work Phone: Start: 10-18-2021 End: 10-18-2021 ambulatory Alyssa Ginty Other [employer] Other Start: 10-18-2021 Office outpatient vi sit 15 minutes Alyssa Zoraidanty [facility] Start: 09-07-2021 End: 09-07-2021 ambulatory Carie Keith Other [employer] Other Start: 09-07-2021 Office outpatient vi sit 15 minutes Carie Keith [facility] Start: 09-02-2021 End: 09-02-2021 ambulatory Aba Giovanny Other [employer] Other Start: 09-02-2021 Office outpatient vi sit 25 minutes Aba Giovanny [facility] Start: 03-03-2021 End: 03-03-2021 Patient encounter procedure Bean Cantu Work Phone: [facility] Start: 02-17-2021 End: 02-17-2021 Patient encounter procedure Bean Cantu Work Phone: -Pre-Surgical Testing Start: 02-04-2021 End: 02-04-2021 Patient encounter procedure Bean Cantu Work Phone: -[facility] [address] Start: 02-03-2021 End: 02-03-2021 Patient encounter procedure Bean Cantu Work Phone: [facility] Start: 01-29-2018 Ambulatory DONNA TURCIOS Facility :[id number] Procedures Date Procedure Procedure Detail Performing Clinician Start: 08-07-2024 Bacteria identified in Urine by Culture Generic External Data Provider Start: 07-05-2023 Plain X-ray of bilateral calcanei Seema A sindy Work Phone: Start: 07-05-2023 X-ray of both feet Seema Ybarrajasmin Work Phone: Start: 08-02-2022 Esophagogastroduodenoscopy Seema Ybarrajasmin Work Phone: Start: 04-05-2021 Arthroplasty of knee Med JENKINS Comment on above: LEFT Start: 03-03-2021 Plain X-ray of left femur Bean Cantu Work Phone: Start: 02-17-2021 Urine culture Bean Cantu Work Phone: Start: 02-04-2021 Plain X-ray of left hand Bean Cantu Work Phone: Start: 02-04-2021 X-ray of left foot Bean Cantu Work Phone: Start: 02-03-2021 X-ray of left knee Bean Cantu Work Phone: Start: 03-16-2012 H/O: colostomy Colostomy status Seema Lancesonnyjasmin [employer] Work Phone: Angioplasty of blood vessel Pratik A Naderer Work Phone: Appendectomy Pratik A Naderer Work Phone: Appendectomy Med TRINA Arthroplasty of knee Pratik A Naderer Work Phone: Arthroplasty of knee Med TRINA Comment on above: Right Bilateral tubal ligation Rodrick JENKINS Cholecystectomy Pratik Bartoner er Work Phone: Colonoscopy Med JENKINS Colostomy Pratik Bartonerer Work Phone: Extraction of cataract Waldemar JENKINS Comment on above: B/L H/O: artificial joint Status pos t knee replacement Seema Sutherland Work Phone: History of operative procedure on knee Bean Cantu Work Phone: History of operative procedure on knee Aba Giovanny Other Hysterectomy Pratik Bartonerer Work Phone: Hysterectomy Med JENKINS Ligation of fallopian tube M kelsey Meza Naderer Work Phone: Operation on bladder Pratik A Naderer Work Phone: Total colonoscopy Pratik Barton erer Work Phone: Plan of Treatment Date Care Activity Detail Author Start: 09-11-2024 End: 09-11-2024 Patient encounter procedure 09/11/2024 1:20 PM EST Office Visit [facility] [address] [place] [address] Seema Sutherland NP [address] [place] [id number] [facility] Start: 08-22-2024 End: 08-22-2024 Patient encounter procedure 08/22/2024 11:00 AM EDT Office Visit [facility] [address] [place] [address] Destiney Dudley NP [address] [place], [place] [facility] [address] Start: 08-19-2024 End: 08-19-2024 Patient encounter procedure 08/19/2024 10:00 AM EDT Office Visit [facility] [address] [place] [address] Seema Sutherland, VITALIY [address] [place] [id number] [facility] Start: 08-15-2024 End: 08-15-2024 Patient encounter procedure 08/15/2024 2:15 PM EDT Office Visit [facility] [address] [place] [phone] Candace Mullins MD [address] [place] [address] [facility] Start: 08-07-2024 End: 08-07-2024 Patient encounter procedure 08/07/2024 10:30 AM EDT Office Visit [facility] [address] [place] [address] Seema Sutherland NP [address] [place] [id number] Idiopathic hypoparathyroidism (CMS/HCC); Rheumatoid arthritis, unspecified (CMS/HCC); Major depressive disorder, single episode, mild (HCC) (CMS/HCC) [facility] Comment on above: Idiopathic hypoparathyroidism (CMS/HCC); Rheumatoid arthritis, unspecified (CMS/HCC); Major depressive disorder, single episode, mild (HCC) (CMS/HCC) Start: 06-30-2024 Influenza vaccination Influenza Vaccine (#1) [facility] Start: 07-20-2023 FUV, Provider: Donna Turcios, Status: Pen, Time: 10:20 AM FUV, Provider: Donna Turcios, Status: Pen, Time: 10:20 AM [facility] 250 DO Work Phone: Start: 01-12-2023 FUV, Provider: Donna Turcios, Status: Pen, Time: 10:50 AM FUV, Provider: Donna Turcios, Status: Pen, Time: 10:50 AM [facility] 250 DO Work Phone: Start: 08-02-2022 [facility] Start: 07-12-2022 FUV, Provider: Donna Turcios, Status: Pen, Time: 10:50 AM FUV, Provider: Donna Turcios, Status: Pen, Time: 10:50 AM [facility] 250 DO Work Phone: Start: 02-17-2021 Bacteria identified in Urine by Culture Urine Culture [facility] Bacteria identified in Urine by Culture URINE CULTURE, ROUTINE Lab Routine 08/07/2024 10:44 PM EDT [facility] Patient Education Gastritis (DC) Omekrystle pisano [facility] Work Phone: Renal function 2000 panel - Serum or Plasma [facility] Immunizations Immunization Date Immunization Notes Care Provider Fa bill 07-18-2024 tetanus toxoid, redu ruby diphtheria toxoid, and acellular pertussis vaccine, adsorbed Seema Aichholz [employer] Work Phone: [facility] 08-01-2023 Influenza, Seasonal, Quadrivalent, Adjuvanted Seema Aichholz [employer] Work Phone: [facility] 08-01-2023 influenza virus vacc ine, unspecified formulation Seema Aichholz [employer] Work Phone: [facility] 06-30-2023 influenza virus vacc ine, unspecified formulation Med JENKINS [facility] 07-25-2022 influenza, high dose seasonal, preservative-free Seema Aichholz [employer] Work Phone: [facility] 07-25-2022 Influenza, High-dose Seasonal, Quadrivalent, Preservative Free Seema Aichholz [employer] Work Phone: [facility] 09-17-2021 Pfizer-BioNTech COVI D-19 Vacc 30 MCG/0.3ML Intramuscular Suspension Pratik A Naderer Work Phone: [facility] 09-08-2021 influenza virus vacc ine, unspecified formulation Med JENKINS [facility] 09-08-2021 Influenza, injectabl e, Madin [place] Canine Kidney, preservative free, quadrivalent Pratik A Naderer Work Phone: [facility] 250 DO Work Phone: 01-05-2021 Moderna COVID-19 Vac cine 100 MCG/0.5ML Intramuscular Suspension Pratik A Naderer Work Phone: [facility] 12-07-2020 Moderna COVID-19 Vac cine 100 MCG/0.5ML Intramuscular Suspension Pratik A Naderer Work Phone: [facility] 08-11-2020 influenza virus vacc ine, unspecified formulation Med JENKINS [facility] 08-11-2020 influenza, injectabl e, quadrivalent, preservative free Pratik A Naderer Work Phone: [facility] 250 DO Work Phone: 08-11-2020 pneumococcal polysaccharide vaccine, 23 valent Pratik A Naderer Work Phone: [facility] 06-30-2020 influenza virus vacc ine, unspecified formulation Pratik A Naderer Work Phone: [facility] 06-30-2020 influenza, seasonal, injectable Seema Sutherland NP Work Phone: [facility] 07-30-2019 influenza virus vacc ine, unspecified formulation Pratik A Naderer Work Phone: [place] [address] DO Work Phone: 07-16-2019 influenza virus vacc ine, unspecified formulation Med JENKINS [facility] 07-16-2019 influenza, injectabl e, quadrivalent, preservative free Pratik A Naderer Work Phone: [place] [address] DO Work Phone: 08-09-2018 influenza virus vacc ine, unspecified formulation Med JENKINS [facility] 08-09-2018 influenza, high dose seasonal, preservative-free Pratik A Naderer Work Phone: [place] [id number] DO Work Phone: 07-30-2018 influenza virus vacc ine, unspecified formulation Pratik A Naderer Work Phone: [place] [address] DO Work Phone: 08-11-2017 influenza virus vacc ine, unspecified formulation Med JENKINS [facility] 08-11-2017 influenza, high dose seasonal, preservative-free Pratik A Naderer Work Phone: [place] [address] DO Work Phone: 07-30-2017 influenza virus vacc ine, unspecified formulation Pratik A Naderer Work Phone: [place] [address] DO Work Phone: 08-02-2016 influenza virus vacc ine, unspecified formulation Med JENKINS [facility] 08-02-2016 influenza, high dose seasonal, preservative-free Pratik A Naderer Work Phone: [facility] 250 DO Work Phone: 06-30-2016 influenza virus vacc ine, unspecified formulation Pratik Meza Naderer Work Phone: [place] [address] DO Work Phone: 01-08-2016 pneumococcal conjuga te vaccine, 13 valent Pratik Meza Naderer Work Phone: [facility] 07-21-2015 influenza virus vacc ine, unspecified formulation Pratik A Naderer Work Phone: [place] [address] DO Work Phone: 07-21-2015 pneumococcal polysaccharide vaccine, 23 valent Pratik Meza Naderer Work Phone: [place] [address] DO Work Phone: 07-17-2015 influenza virus vacc ine, unspecified formulation Med JENKINS [facility] 07-17-2015 influenza, high dose seasonal, preservative-free Seema Koko Work Phone: [facility] 07-17-2014 influenza virus vacc ine, unspecified formulation Med JENKINS [facility] 07-17-2014 influenza, high dose seasonal, preservative-free Pratik Meza Naderer Work Phone: [place] [address] DO Work Phone: 08-07-2012 influenza virus vacc ine, unspecified formulation Med JENKINS [facility] 08-07-2012 influenza, seasonal, injectable, preservative free Pratik A Naderer Work Phone: [place] [address] DO Work Phone: 06-04-2012 tetanus toxoid, redu ruby diphtheria toxoid, and acellular pertussis vaccine, adsorbed Pratik A Naderer Work Phone: [facility] 07-30-2011 seasonal influenza, intradermal, preservative free Seema Sutherland NP Work Phone: [facility] 09-16-2010 influenza virus vacc ine, unspecified formulation Med JENKINS [facility] 09-16-2010 influenza, seasonal, injectable Pratik Tadeo Work Phone: [facility] 250 DO Work Phone: 08-14-2010 pneumococcal polysaccharide vaccine, 23 valent Seema Sutherland NP Work Phone: [facility] Healthcare Payers Date Payer Category Payer Private Health Insurance AET[employer] A ETNA [place] SUPPLEMENT [id number] 2023-Present [address] [place] [address] Supplement [id number] 2023 Private Health Insurance CLI [id number] 2022 Self-pay [id number] 2005 Medicare MEDICARE MEDICAR E PART B [id number] 2005-Present [address] [address] [place] [address] Medicare [id number] 1959 Medicare [id number] 1959 Unknown [id number] 1940 Unknown [id number] 2.16.840.1.172878.3.579. 2.593 1940 Unknown [id number] 2.16.840.1.486151.3.579. 2.593 1940 Unknown [id number] 2.16.840.1.741457.3.579. 2.593 1940 Unknown [id number] 2.16.840.1.412430.3.579. 2.593 1940 Unknown [id number] 2.16.840.1.607302.3.579. 2.593 1940 Unknown [id number] 2.16.840.1.871770.3.579. 2.593 1940 Unknown [id number] 2.16.840.1.198907.3.579. 2.593 1940 Unknown [id number] 2.16.840.1.657316.3.579. 2.356 1940 Unknown [id number] 2.16.840.1.657348.3.579. 2.356 1940 Unknown [id number] 2.16.840.1.019898.3.579. 2.727 1940 Unknown [id number] 2.16.840.1.346908.3.579. 2.727 1940 Unknown [id number] 2.16.840.1.681953.3.579. 2.727 1940 Unknown [id number] 2.16.840.1.376171.3.579. 2.727 1940 Unknown [id number] 2.16.840.1.873054.3.579. 2.727 1940 Unknown [id number] 2.16.840.1.354356.3.579. 2.727 1940 Unknown [id number] 2.16.840.1.315440.3.579. 2.727 1940 Unknown [id number] 2.16.840.1.456639.3.579. 2.727 1940 Unknown [id number] 2.16.840.1.538614.3.579. 2.1244 1940 Unknown [id number] 2.16.840.1.074333.3.579. 2.1286 1940 Unknown [id number] 2.16.840.1.689957.3.579. 2.1286 1940 Unknown [id number] 2.16.840.1.747924.3.579. 2.1286 1940 Unknown [id number] 2.16.840.1.114856.3.579. 2.1286 1940 Unknown [id number] 2.16.840.1.474208.3.579. 2.1286 1940 Unknown [id number] 2.16.840.1.949497.3.579. 2.1259 1940 Unknown [id number] 2.16.840.1.943164.3.579. 2.1259 1940 Unknown [id number] 2.16.840.1.045579.3.579. 2.1259 1940 Unknown [id number] 2.16.840.1.812158.3.579. 2.1259 Medicare [id number] Unknown [id number] Unknown Unknown [id number] 2.16.840.1.284308.3.579. 2.531 Unknown [id number] 2.16.840.1.022456.3.579. 2.531 Unknown [id number] 2.16.840.1.908410.3.579. 2.531 Social History Date Type Detail Facility Start: 02-17-2021 End: 07-11-2023 Tobacco smoking status SDIS Never smoked tobacco (finding) [facility] Start: 1940 Sex Assigned At Female [facility] Start: 03-11-2024 End: 06-13-2024 No alcohol use No alcohol use [facility] Start: 03-11-2024 End: 06-13-2024 Sex Assigned At [facility] Other Tobacco smoking status Never [facility] Start: 07-11-2023 Tobacco use and exposure Smokeless tobacco non-user [facility] Start: 06-13-2024 End: 08-07-2024 Alcoholic beverage intake Lifetime non-drinker (finding) [facility] Start: 1940 Sex assigned at Not on file N [facility] Medical Equipment Procedure Code Equipment Code Equipment [...] knee, total, minimally invasive Orthopaedic cement, non-medicated [id number] FDA Start: 03-09-2021 Arthroplasty, knee, total, minimally invasive Uncoated knee femur prosthesis, metallic ()[id number] FDA Start: 03-09-2021 Arthroplasty, knee, total, minimally invasive Polyethylene patella prosthesis ()[id number] FDA Start: 03-09-2021 Arthroplasty, knee, total, minimally invasive Tibial insert ()[id number] FDA Start: 03-09-2021 Arthroplasty, knee, total, minimally invasive Uncoated knee tibia prosthesis, metallic ()[id number] FDA Start: 03-09-2021 Arthroplasty, knee, total, minimally [...] Facility 04-10-2024 Functional Status N/A [facility] 02-26-2024 Functional Status N/A [facility] 09-27-2023 Functional Status N/A [facility] 08-16-2023 Functional Status N/A [facility] 05-11-2023 Functional Status N/A [facility] 06-22-2022 Functional Status N/A [facility] 05-19-2022 Functional Status N/A [facility] 05-11-2022 Functional Status N/A [facility] Clinical Notes 09-02-2021 to 08-07-2024 Seema Sutherland NP - 08/07/2024 12:05 PM Karen Sutherland NP - 08/07/2024 12:04 PM Karen Sutherland NP - 08/07/2024 12:02 PM ANTONIA BANKS - 08/07/2024 10:30 AM EDT Note Date & Type Note Facility 08-07-2024 History of Present illness Narrative Associated Problem(s): Diarrhea of presumed infectious origin Possible c diff d/t recent UTI with atb treatment Dd: viral illness Go to ER, for evaluation dehydration Associated Problem(s): Closed fracture of acromial end of right clavicle Reviewed xray, will need ortho Associated Problem(s): Parkinson's disease ([facility]) Cont with neuro Possible worsening tremor d/t freq diarrhea and unable to absorb meds? Discussion with pt and spouse about possible temporary NH placement for strengthening?? Pt has been having diarrhea for the last 3 days, she has a sore on her bottom, pt has a fractured right clavicle, her entire right side is numb, she has involuntary shaking that is getting worse, she is unable to get up easily, more weakness, dizziness, pain, pt repeating conversations, pt took Advil this morning but did not help Right great toe is swollen as well. Right leg has swelling Images from the original note were not included. Narciso Velasquez is a 83 y.o. female presents with chief complaint of No chief complaint on file. HPI: Here for ER fu: Had a fall at home, clavicle fracture, had xray and CT head/neck at [facility], sent home with sling no ortho referral Is noting declining parkinsons with tremors, walking with cane. Now has been having diarrhea for the last 3 days. At least 10 times daily brown liquid. No blood, no NV. Is having episodes of incontinence with this. Her tremors have gotten substantially worse over the last 2 days. She does report pain w clavicle and numbness to right arm, worse with wearing sling. Numbness in right leg but reports this is not new finding SUBJECTIVE: MEDICATIONS: Current Outpatient Medications Medication Instructions aMILoride (Midamor) 5 MG tablet .COMPLEX aspirin 81 mg, Oral, Daily atorvastatin (LIPITOR) 20 mg, Oral, Nightly Biotin 1000 MCG chewable tablet Oral calcitriol (ROCALTROL) 0.5 mcg, Oral, Daily Calcium Carb-Cholecalciferol 600-10 MG-MCG tablet 1 tablet cholecalciferol (VITAMIN D-3) 5,000 Units, Oral, Daily diclofenac sodium 1 % gel As Directed folic acid (Folvite) 1 MG tablet Every 24 hours gabapentin (NEURONTIN) 600 mg, Oral, 2 times daily hydroxychloroquine (Plaquenil) 200 MG tablet as directed Orally levothyroxine (SYNTHROID) 75 mcg, Oral, Daily before breakfast magnesium oxide (MAG-OX) 400 mg, Oral, Daily metoprolol succinate XL (Toprol-XL) 25 MG 24 hr tablet Every 24 hours nitroglycerin (NITROSTAT) 0.4 mg, Sublingual OXcarbazepine (Trileptal) 150 MG tablet TAKE 1 TABLET BY MOUTH EVERY MORNING AND ONCE BEFORE BEDTIME potassium chloride CR (Klor-Con M20) 20 MEQ ER tablet Daily pramipexole (MIRAPEX) 0.25 mg, Oral, 3 times daily predniSONE (Deltasone) 5 MG tablet Oral trihexyphenidyl (Artane) 2 MG tablet Oral, 2 times daily with meals ALLERGIES: Allergies Allergen Reactions Fesoterodine Other Reaction(s): dizziness/light hearded Morphine Morphine And Codeine REVIEW OF SYMPTOMS: Review of Systems Constitutional: Positive for fatigue. Negative for appetite change, chills and fever. HENT: Negative for congestion, ear pain and sore throat. Eyes: Negative for pain, discharge, redness and visual disturbance. Respiratory: Negative for cough, shortness of breath and wheezing. Cardiovascular: Negative for chest pain, palpitations and leg swelling. Gastrointestinal: Positive for diarrhea. Negative for abdominal pain, blood in stool, constipation, nausea and vomiting. Genitourinary: Negative for difficulty urinating, dysuria and frequency. Musculoskeletal: Positive for arthralgias. Negative for back pain, joint swelling and myalgias. Skin: Negative for rash and wound. Neurological: Positive for tremors. Negative for dizziness, seizures, syncope and headaches. Psychiatric/Behavioral: Negative for behavioral problems, self-injury and suicidal ideas. The patient is not nervous/anxious. Hematological: Does not bruise/bleed easily. Endocrine: Negative for polydipsia, polyphagia and polyuria. Allergic/Immunologic: Negative for environmental allergies and food allergies. PAST MEDICAL HISTORY Past Medical History: Diagnosis Date Abdominal pain Actinic keratosis Anorexia Appendicitis Arthritis Bakers cyst Chronic constipation Coronary artery disease without angina pectoris, unspecified vessel or lesion type, unspecified whether circle or transplanted heart ([facility]) COVID-19 vaccine administered x2 moderna CVA (cerebral vascular accident) ([facility]) 11/2016 Failure to thrive in adult Female cystocele History of CVA (cerebrovascular accident) Hypocalcemia Hypokalemia Hypothyroidism (acquired) ([facility]) Hypothyroidism (acquired) ([facility]) 10/21/2023 Hypothyroidism ([facility]) Impaired mobility Inguinal hernia Left knee pain, unspecified chronicity Myocardial infarct ([facility]) 2015, 2016 Nephrolithiasis Paresthesia Parkinson disease ([facility]) Pressure sore on buttocks Senile debility Shoulder pain Squamous cell skin cancer Weakness generalized Past Surgical History: Procedure Laterality Date APPENDECTOMY BLADDER SURGERY 2005 CARPAL TUNNEL RELEASE Bilateral CHOLECYSTECTOMY 1967 CORONARY STENT PLACEMENT 11/24/2015 CORONARY STENT PLACEMENT 11/2016 with balloon placement CYSTOSCOPY 03/2013 ENTEROCELE REPAIR 1994 FOOT SURGERY Bilateral HERNIA REPAIR 2004 inguinal hernia HYSTERECTOMY 2004 SEPTOPLASTY 11/23/2015 SKIN CANCER EXCISION removal from right arm TOTAL KNEE ARTHROPLASTY Right 02/24/2018 TOTAL KNEE ARTHROPLASTY Left 03/21/2021 VARICOSE VEIN SURGERY Bilateral family history includes Heart disease in her father. OBJECTIVE: Visit Vitals Pulse 95 Temp 98.8 F (Temporal) Resp 18 Ht 4' 9 Wt 104 lb 3.2 oz SpO2 98% BMI 22.55 kg/m Smoking Status Never BSA 1.38 m Physical Exam Vitals and nursing note reviewed. Constitutional: General: She is not in acute distress. Appearance: Normal appearance. She is not toxic-appearing. Comments: Frail, chronically ill appearing HENT: Head: Normocephalic and atraumatic. Right Ear: External ear normal. Left Ear: External ear normal. Nose: Nose normal. Mouth/Throat: Mouth: Mucous membranes are moist. Pharynx: No oropharyngeal exudate or posterior oropharyngeal erythema. Comments: Sl tachy Eyes: Extraocular Movements: Extraocular movements intact. Conjunctiva/sclera: Conjunctivae normal. Cardiovascular: Rate and Rhythm: Normal rate and regular rhythm. Pulses: Normal pulses. Heart sounds: Normal heart sounds. Pulmonary: Effort: Pulmonary effort is normal. Breath sounds: Normal breath sounds. Abdominal: General: Bowel sounds are normal. There is no distension. Palpations: Abdomen is soft. There is no mass. Tenderness: There is no abdominal tenderness. Musculoskeletal: General: Tenderness (right clavicular region) present. Normal range of motion. Cervical back: Normal range of motion and neck supple. Right lower leg: Edema (generalized) present. Skin: General: Skin is warm and dry. Capillary Refill: Capillary refill takes 2 to 3 seconds. Findings: No rash. Neurological: Mental Status: She is alert and oriented to person, place, and time. Motor: Weakness present. Gait: Gait abnormal. Comments: Tremors significant more on right UE Psychiatric: Mood and Affect: Mood normal. Behavior: Behavior normal. Thought Content: Thought content normal. Judgment: Judgment normal. ASSESSMENT AND PLAN: No follow-ups on file. Problem List Items Addressed This Visit Rheumatoid arthritis, unspecified (CMS/HCC) Managed by Rheumatology Parkinson's disease (CMS/HCC) - Primary Cont with neuro Possible worsening tremor d/t freq diarrhea and unable to absorb meds? Discussion with pt and spouse about possible temporary NH placement for strengthening?? Major depressive disorder, single episode, mild (HCC) (CMS/HCC) No current antidepressant meds Idiopathic hypoparathyroidism (CMS/HCC) Follow with endo Hemiparesis, right (CMS/HCC) Closed fracture of acromial end of right clavicle Reviewed xray, will need ortho Diarrhea of presumed infectious origin Possible c diff d/t recent UTI with atb treatment Dd: viral illness Go to ER, for evaluation dehydration Associated Problem(s): Major depressive disorder, single episode, mild (HCC) (CMS/HCC) No current antidepressant meds Associated Problem(s): Rheumatoid arthritis, unspecified (CMS/HCC) Managed by Rheumatology Associated Problem(s): Idiopathic hypoparathyroidism (CMS/HCC) Follow with endo documented in this encounter [facility] 04-10-2024 Hospital Discharge instructions Patient Education 04/10/2024 10:23:18 Urinary Incontinence [...] nerve stimulation). ?For women, using a biomedical service engineer to prevent urine leaks. This is a [...] right after experiencing incontinence. General instructions Take vxhj-irq-mpvxnrx and prescription medicines only as told by [...] important. Where to find more information [place] of Diabetes and Digestive and Kidney Diseases: www.niddk.nih.gov [employer] Association: www.urologyhealth.org Contact a health care [...] provider. Document Revised: 05/21/2021 Document Reviewed: 05/21/2021 [employer] Patient Education 2022 [employer]. Follow Up Care 02/26/2024 13:52:27 With:TRINA WATSON, Med Hilario, URL Address: [address] [employer] [address] [place] [address]- When: Unknown [facility] 02-26-2024 Hospital Discharge instructions Patient Education 02/26/2024 13:31:50 EU - [...] Care 11/13/2023 15:16:14 With:Med JENKINS Address: [address] [employer] [address] [place] [address]- Business (1) When:6 weeks Comments:Call for followup appointment, with a bladder scan at that visit to check for bladder emptying. [facility] 02-26-2024 Note [id number] [facility] 02-26-2024 Note Cystoscopy with Boto x [...] you have a fever over 100 degrees. [facility] 11-13-2023 Evaluation + Plan note Extrac db from: Title:HOPD visit Author:Med JENKINS MD Date: 11/13/23 Impression and Plan Assessment and Plan: Diagnosis: Acute UTI (YHC66-LL N39.0, Working, Medical), Mixed incontinence urge and stress (SSB98-DD N39.46, Working, Medical), Overactive bladder (MTB92-RE N32.81, Working, Medical). Additional Plan of Care [...] is also instructed to follow-up with her hr coordinator regarding some heart rate issues. She [...] Appointments Appointment Date:12/18/2023 03:15:00 PM Scheduled Provider: Location:[facility] Appointment Type:Urology FT Diagnostic Tests Pending * Urine Culture 11/13/23 [facility]11-29-2023 Hospital Discharge instructions Follow Up Care 09/27/2023 13:27:49 With:Med JENKINS Address: [address] [place], [place] [id number]- [employer] (1) When: Unknown Comments:As you know we [...] probiotics locally and the cranberry is self-explanatory.My rehabilitation aide/scheduler will call you to get you back on the books for the Botox injection. [facility]11-29-2023 Hospital Discharge instructions Patient Education 09/27/2023 [...] nerve stimulation). ?For women, using a biomedical service engineer to prevent urine leaks. This is a [...] right after experiencing incontinence. General instructions Take zecv-oxp-zxocrkc and prescription medicines only as told by [...] important. Where to find more information [place] of Diabetes and Digestive and Kidney Diseases: www.niddk.nih.gov [employer] Association: www.urologyhealth.org Contact a health care [...] provider. Document Revised: 05/21/2021 Document Reviewed: 05/21/2021 [employer] Patient Education 2022 [employer]. Follow Up Care 08/16/2023 10:31:24 With:TRINA WATSON, Med Hilario, URL Address: [facility] [address] [place] [id number] When: Unknown [facility] 10-18-2023 Hospital Discharge instructions Patient Education [...] Treatment for this condition includes: Antibiotic medicine. Guxe-lfi-tyhohqa medicines to treat discomfort. Drinking enough water [...] Follow these instructions at home: Medicines Take pxau-dyv-wewveqb and prescription medicines only as told by [...] provider. Document Revised: 05/28/2021 Document Reviewed: 05/28/2021 [employer] Patient Education 2022 [employer]. Follow Up Care 05/11/2023 08:07:36 With:TRINA WATSON, Med Hilario, URL Address: [address] [place] [address]- When: Unknown [facility] 07-27-2023 Evaluation note* Encounter Date Diagnosis Assessment Notes Treatment Notes Treatment Clinical Notes Apr, Hypomagnesemia (ICD-10 - E83.42) [employer] Other 07-13-2023 Hospital Discharge instructions Patient Education [...] Up Care 04/12/2023 15:40:50 With:Med JENKINS Address: [address] [place] [address] [place], [place] [id number] Business (1) When:3 months Comments:Call for followup appointment, with bladder scan checking for residual urine at that visit. [facility]07-13-2023 Note [id number]:127[facility] 05-11-2023 NoteCystoscopy with Botox injection ? [...] if you have a fever over 100 degrees.[facility] 05-08-2023 Evaluation note* Encounter Date Diagnosis Assessment Notes Treatment Notes Treatment Clinical Notes Apr, Hypomagnesemia (ICD-10 - E83.42) [employer] Other 04-12-2023 Evaluation note* Encounter Date Diagnosis Assessment Notes Treatment Notes Treatment Clinical Notes Jan, Early satiety (ICD-10 - R68.81) Jan, Gastritis (ICD-10 - K29.70) Continue Omeprazole as directed Rto 1 yr Jan, Borborygmi (ICD-10 - R19.8) [employer] Other 10-[facility] Discharge instructions Patient Education 06/22/2022 [...] nerve stimulation). For women, using a biomedical service engineer to prevent urine leaks. This is a [...] right after experiencing incontinence. General instructions Take xxbp-cft-xzelrsd and prescription medicines only as told by [...] 11/23/2005 Document Revised: 10/26/2018 Document Reviewed: 01/25/2018 [employer] Patient Education 2020 [employer]. 06/22/2022 13:02:35 Kegel Exercises Kegel Exercises Kegel [...] 10/02/2013 Document Revised: 06/05/2019 Document Reviewed: 06/05/2019 [employer] Patient Education 2020 [employer] Follow Up Care 05/23/2022 15:12:51 With:TRINA WATSON, Med Hilario, URL Address: When:Within 6 Month(s) Comments:w/PVR [facility] 07-25-2022 Hospital Discharge instructions Patient Education [...] Up Care 05/11/2022 11:39:36 With:Med JENKINS Address: [address] [facility] (1) When:2 to 4 weeks Comments:Call for followup appointment, and a bladder scan to check bladder emptying will be performed at that visit. [facility]07-13-2022 Hospital Discharge instructions Patient Education 05/11/2022 [...] fried and sweet foods. General instructions Take moft-yhv-wmjwjml and prescription medicines only as told by [...] 08/12/2010 Document Revised: 02/06/2020 Document Reviewed: 11/01/2018 [employer] Patient Education 2019 [employer]. Follow Up Care 12/27/2021 11:50:32 With:TRINA WATSON, Med Hilario, URL Address: [facility] [address] [place] [id number]- When: Unknown [facility] 05-26-2022 Evaluation note* Encounter Date Diagnosis [...] of cardiac arrest due to the hypokalemia [employer] Other 12-20-2021 Evaluation note* Encounter Date Diagnosis Assessment Notes Treatment Notes Treatment Clinical Notes Sep, Abnormal skin growth (ICD-10 - D49.2) Will send to derm for further evaluation and treatment. Advised patient that area will likely need to be removed. Message sent to contract administration coordinator to schedule and make appointment for patient. Area covered with silvadine cream in office with non adherent telfa and coban. Advised patient not to pick at area. Immediate evaluation in ER for signs of infection, including, fever, red streaking, foul odor, any new or worsening symptoms. Patient verbalizes understanding and is agreeable with treatment plan [employer] Other 11-09-2021 Evaluation note* Encounter Date Diagnosis Assessment Notes Treatment Notes Treatment Clinical Notes Aug, Arthritis of left knee (ICD-10 - M17.12) Patient is progressing well. Continue physical therapy exercises and TKA precautions. Instructed patient to call with any questions or concerns. 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 [employer] Other Evaluation + Plan note Future Appointments Appointment Date:05/16/2022 10:00:00 AM Scheduled Provider: Location:[facility] Appointment Type:Urology CALL PAT FT Appointment Date:05/23/2022 02:30:00 PM Scheduled Provider: Location:[facility] Appointment Type:Urology FT [facility] Evaluation + Plan note Future Appointments Appointment Date:05/23/2022 02:30:00 PM Scheduled Provider: Location:[facility] Appointment Type:Urology FT [facility] Evaluation + Plan note Future Appointments Appointment Date:05/23/2022 02:30:00 PM Scheduled Provider: Location:[facility] Appointment Type:Urology FT Diagnostic Tests Pending * [facility] App[facility]ments Appointment Date:06/22/2022 11:45:00 AM Scheduled Provider:Med JENKINS MD Location: Appointment Type:[facility] Future Appointments Appointment Date:12/14/2022 11:15:00 AM Scheduled Provider:Med JENKINS MD Location: Appointment Type:URO Office Visit [facility] Evaluation + Plan note Future Appointments Appointment Date:08/16/2023 09:30:00 AM Scheduled Provider:Med JENKINS MD Location: Appointment Type:[facility] Future Appointments Appointment Date:09/27/2023 01:00:00 PM Scheduled Provider:Med JENKINS MD Location:[facility] Appointment Type:URO Office Visit Diagnostic Tests Pending * Urine Culture 08/16/23 [facility] Future Appointments Appointment Date:09/27/2023 01:00:00 PM Scheduled Provider:Med JENKINS MD Location: Appointment Type:URO Office Visit [facility] Evaluation + Plan note Future Appointments Appointment Date:10/31/2023 09:45:00 AM Scheduled Provider: Location:[facility] Appointment Type:Urology CALL PAT FT Appointment Date:11/13/2023 02:45:00 PM Scheduled Provider: Location:[facility] Appointment Type:Urology FT [facility] Evaluation + Plan note Future Appointments Appointment Date:04/10/2024 10:00:00 AM Scheduled Provider: Location: Appointment Type:URO [facility] Future Appointments Appointment Date:10/16/2024 01:00:00 PM Scheduled Provider:Med JENKINS MD Location: Appointment Type:URO Office Visit [facility] evaluation noteNo Assessments Information Available [facility] note[facility] InformationNort [employer] Other evaluation noteNo assessment information available [facility] Work Phone: [email or web address] note* Diagnosis Onset Date Resolution Status Hypomagnesemia acute CAD (coronary artery disease) chronic Hyperlipidemia chronic Hypokalemia resolved [facility] Work Phone: evaluzzmfm note* Diagnosis Closed nondisplaced fracture of acromial end of right clavicle with routine healing, subsequent encounter- Primary Idiopathic hypoparathyroidism (CMS/HCC) Rheumatoid arthritis, unspecified (CMS/HCC) Major depressive disorder, single episode, mild (HCC) (CMS/HCC) Major depressive disorder, single episode, mild Parkinson's disease with fluctuating manifestations, unspecified whether dyskinesia present (CMS/HCC) Hemiparesis, right (CMS/HCC) Unspecified hemiplegia affecting unspecified side Diarrhea of presumed infectious origin documented in this encounter [facility] HealthcareHistory and physical note Author Madhav Conrad [facility] August 02, 2022 12:52pm Note Date/Time August 02, 2022 12 :52pm [facility] [address] [place] [address] Gastroenterology H&P Signed Patient: Narciso Velasquez MR#: [id number] : 1940 Acct:[id number] Age/Sex: 81 / F Adm Date: 2 Loc: Room: Type: [facility] Attending Dr: Madhav Conrad MD Copies to: MD Seema Ribera NP-C~ Date of Service: 08/02/2022 HISTORY & PHYSICAL: [...] MD Documented By: Madhav Conrad MD 08/02/22 125 Signed By: <Electronically signed by Madhav Conrad MD> 08/02/22 2627 [facility] Work Phone: History general Narrative - Reported* [...] heart attack 11/2016 Hospitalization History SEE ABOVE [employer] Other Hospital course Narrative No data available for this section [facility] Hospital Discharge instructions No data available for this section [facility] Hospital Discharge instructions Additional Instructions DISCHARGE [...] Follow up with PCP. - Office number [phone].[facility] Work Phone: Progress note No data available for this section [facility] Summary Purpose Family History Relationship Condition Age at Onset Recorded Date/T [...] Unknown sister Malignant neoplasm Unknown Advance Directives Advance Directive Response Recorded Date/ Time Advance [...] locally, currently stable * Donna Turcios MD, [facility] Reason for Referral Reason Abnormal Growth Left Arm, bleeding, firm, tender/painful at times Diagnosis 1 Abnormal skin growth (D49.2) Referral Organization [facility] [address] Referring Provider First Name Alyssa Referring Provider Last Name Janee Referring Provider Specialty Nurse Pract itioner Referred Organization [facility] Referred Provider Castillo Mcgowan Thomas Referred Address ,[place], [place],[address] Referred Provider Specialty Dermatology Referral Priority Routine General Notes Xochitl Craig 021 02:26:04 PM >Received today and sent P2P even though the notes are not locked Additional Source Comments INFORMATION SOURCE (unrecogn ized section and content) DATE CREATED AUTHOR 04/19/2018 [facility] DATE CREATED AUTHOR AUTHOR'S ORGANIZ ATION 03/15/2020 [facility] DATE CREATED AUTHOR AUTHOR'S ORGANIZ ATION 12/01/2022 [facility] DATE CREATED AUTHOR AUTHOR'S ORGANIZ ATION 07/15/2023 [facility] DATE CREATED AUTHOR AUTHOR'S ORGANIZ ATION 07/22/2023 [facility] DATE CREATED AUTHOR AUTHOR'S ORGANIZ ATION 07/22/2023 [facility] DATE CREATED AUTHOR AUTHOR'S ORGANIZ ATION 04/13/2024 [facility] DATE CREATED AUTHOR AUTHOR'S ORGANIZ ATION 07/20/[address] [facility] DATE CREATED AUTHOR AUTHOR'S ORGANIZ ATION 07/21/2024 [facility] DATE CREATED AUTHOR AUTHOR'S ORGANIZ ATION 08/09/2024 [facility] EPIC REASON FOR VISIT (unrecogniz ed section and [...] Active Curtis Alcocer MD Attending Provider Active Authorization Rep Relationship Specialty Start Date End Date Pratik Tadeo MD [address] [place] [phone] PCP - General Family Medicine 12/27/23 Seema Sutherland NP [address] [place] [phone] Referring Physician Nurse Practitioner 05/12/23 Segrio Cabral DO [address] [place] [address] Referring Physician Neurology 12/26/23 Authorization Rep Relationship Specialty Start Date End Date Pratik Tadeo MD [address] [place] [phone] PCP - General Family Medicine 12/27/23 Seema Sutherland NP [address] [place] [phone] Referring Physician Nurse Practitioner 05/12/23 Sergio Cabral DO [address] [place] [address] Referring Physician Neurology 12/26/23 Authorization Rep Relationship Specialty Start Date End Date Pratik Tadeo MD [address] [place] [phone] PCP - General Family Medicine 12/27/23 Seema Sutherland NP [address] [place] [phone] Referring Physician Nurse Practitioner 05/12/23 Sergio Cabral DO [address] [place] [address] Referring Physician Neurology 12/26/23 Goals (unrecognized section and content) Goals may [...] BE BASED ON THE PRIMARY CLINICAL RECORDS. [email or web address] [facility]. provides no warranty or guarantee of the accuracy or completeness of information in this document.
--- NOTE | 2024-08-23 09:39 | XR_ITS ---
The [address] [address] Patient Name: NARCISO VELASQUEZ MRN: [id number] date: 1940 Sex: F Assigned Patient Location: ER Current Patient Location: ER Accession/Order Number: [id number] Exam Date: 08/23/2024 10:13 Report Date: 08/23/2024 10:42 At the request of: RODERICK KONG Procedure: XR chest 1V EXAMINATION: XR chest 1V HISTORY: Vomiting, recent COVID COMPARISON: XR chest 08/07/2024 FINDINGS: LUNGS: Chronic interstitial changes and minimal haziness within left lung base partially obscuring the diaphragm margin. VASCULATURE: No increased pulmonary vasculature. PLEURA: No pneumothorax, effusion, or pleural thickening. CARDIAC: No cardiomegaly or cardiac silhouette abnormality. MEDIASTINUM: No visible mass or adenopathy. BONES: No fracture or visible bone lesion. OTHER: Negative. XR/XR chest 1V IMPRESSION: 1. Trace amount of left basilar infiltrates versus atelectasis overlying chronic changes. Electronically authenticated by: JAYLEEN GREER Date: 08/23/2024 10:42
[2024-08-23 09:45] LABS: Basophils Percent Auto 0.3 % (0.2-2.0); Eosinophils Absolute Auto 0.1 10^3/uL (0.0-0.7); Eosinophils Percent Auto 0.4 % (0.9-7.0); Hematocrit 34.5 % (36.0-48.0); Hemoglobin 11.4 g/dL (12.0-16.0); Immature Granulocytes Abs Auto 0.12 10^3/uL (0.00-0.03); Lymphocytes Absolute Auto 0.9 10^3/uL (1.2-3.8); Lymphocytes Percent Auto 7.8 % (20.5-60.0); Mean Corpuscular Hemoglobin 31.7 pg (26.7-34.0); Mean Corpuscular Volume 95.8 fL (81.0-99.0); Mean Platelet Volume 9.3 fL (9.5-13.5); Monocytes Absolute Auto 0.6 10^3/uL (0.3-0.8); Monocytes Percent Auto 4.6 % (1.7-12.0); Neutrophils Absolute Auto 10.2 10^3/uL (1.4-6.5); Neutrophils Percent Auto 85.9 % (43.0-75.0); Platelet Count 269 10^3/uL (150-450); Red Cell Distribution Width 13.2 % (11.0-15.0); White Blood Count 11.9 10^3/uL (4.0-11.0)
[2024-08-23 09:55] LABS: Anion Gap 18.3; Calcium 6.6 mg/dL (8.5-10.1); Carbon Dioxide 26.4 mmol/L (21.0-32.0); Chloride 100 mmol/L (98-107); Estimated GFR (African America 51 (>=60 mL/min/1.73m^2); Estimated GFR (Non-African Ame 42 (>=60 mL/min/1.73m^2); Glucose 99 mg/dL (74-106); Sodium 142 mmol/L (136-145)
[2024-08-23 10:00] LABS: Potassium 2.7 mmol/L (3.5-5.1)
[2024-08-23] MEDS: 0.9 % SODIUM CHLORIDE 500 ML IV (10:01)
[2024-08-23] MEDS: ONDANSETRON PF 4 MG/2 ML VIAL IV (10:01)
--- NOTE | 2024-08-23 11:05 | CT_ITS ---
[address] [address] Patient Name: NARCISO VELASQUEZ MRN: [id number] date: 1940 Sex: F Assigned Patient Location: ER Current Patient Location: [place] Accession/Order Number: [id number] Exam Date: 08/23/2024 11:33 Report Date: 08/23/2024 12:58 At the request of: RODERICK KONG Procedure: CT abdomen pelvis w con EXAMINATION: CT abdomen pelvis w con HISTORY: Diarrhea, weakness , nausea, vomiting COMPARISON: CT abdomen pelvis 04/20/2022 TECHNIQUE: Axial, Coronal, and Sagittal images were obtained without and/or with IV contrast as indicated by examination type. Dose reduction techniques were achieved by using automated exposure control and/or adjustment of mA and/or kV according to patient size and/or use of iterative reconstruction technique. FINDINGS: LUNG BASES: Mild-moderate infiltrates versus atelectasis within lung bases and mild bronchiectasis. LIVER: Several small hypodensities favoring hepatic cysts. No enlargement, atrophy, suspicious density, or significant focal lesion. BILIARY: Cholecystectomy. PANCREAS: No lesion, fluid collection, or abnormal duct dilatation. SPLEEN: No enlargement or focal lesion. ADRENALS: No mass or enlargement. KIDNEYS: No mass, obstruction, or calcification. BOWEL/MESENTERY: Prior right upper quadrant bowel resection and anastomosis. Prior distal sigmoid resection and anastomosis. Air and fluid-filled loops of bowel without abnormal dilation. No visible mass, obstruction, or bowel wall thickening. AORTA/VASCULAR: No aneurysm or dissection. RETROPERITONEUM: No mass or adenopathy. LYMPH NODES: No adenopathy. URINARY BLADDER: No visible focal wall thickening, lesion, or calculus. PELVIC ORGANS: Hysterectomy. ABDOMINAL WALL: Lower right anterior pelvic wall eventration with small hernia containing short segment of bowel; no obstruction or strangulation. BONES: No bony lesion or fracture. OTHER: Negative. CT/CT abdomen pelvis w con IMPRESSION: 1. Mild-moderate right basilar pulmonary infiltrates; favoring infectious etiology rather than atelectasis. 2. Air and fluid-filled loops of bowel without obstruction; possible enteritis. Electronically authenticated by: JAYLEEN GREER Date: 08/23/2024 12:58
[2024-08-23] MEDS: 0.9 % SODIUM CHLORIDE 1,000 ML 100 ML IV (11:24)
--- NOTE | 2024-08-23 12:59 | SWNOTE1 ---
Case management spoke with pt and she has [facility] still and plans on resuming them at discharge.
--- NOTE | 2024-08-23 13:00 | CM.NOTE ---
Medicare Outpatient Observation Notice discussed with pt, pt verbalizes understanding and signs paper. Original given to pt and copy placed on pt's chart.
[2024-08-23] MEDS: POTASSIUM CHLORIDE 10 MEQ ER TABLET 40 MEQ PO ×2 (14:06→20:11)
[2024-08-23] MEDS: 0.9 % SODIUM CHLORIDE 1,000 ML 1000 ML IV (14:07)
--- NOTE | 2024-08-23 14:22 | PM.HP ---
HPI H&P: HPI History of Present Illness Chief complaint: GENERAL WEAKNESS/DIARHEA/HYPOKALEMIA/HYPOCALCEMIA Narrative: 83-year-old female with history of Parkinson and recent COVID diagnosis presented to ER with 3 to 4-day history of generalized weakness, nausea with multiple episodes of vomiting and watery diarrhea. According to the patient he has poor oral intake, is barely able to keep anything down and has multiple episodes of watery diarrhea for past 3 to 4 days. She denies seeing blood in her stool. She has nocturnal diarrhea and sometimes wake up to pass stool. She denies fever, cough, shortness of breath. She denies any sick contacts. She was brought over to ER for further evaluation by her spouse who she lives with. Workup in ER revealed hypokalemia, mild acute kidney injury. Patient was admitted for intractable nausea and vomiting, watery diarrhea resulting in dehydration, acute kidney injury and hypokalemia. CT abdomen pelvis was performed that revealed possible ileitis and bilateral lower lobe infiltrates. In the absence of any respiratory symptoms, I have low suspicion that her symptoms are from pneumonia. Patient started on IV fluids, ordered antiemetics as needed. Started patient on IV Rocephin and Flagyl for ileitis. Ordered stool for C. difficile. Opioid HPI Opioid Management Most Recent Pain and Opioid Data: Last Pain Scale 4 08/23/24 10:13 08/23/24 Last Pain Assessment 08/23/24 13:00 Last ORT Total Score 0 08/23/24 12:43 08/23/24 Last ORT Risk Category Low Risk 08/23/24 12:43 08/23/24 Review of Systems ROS Status of ROS 10 or more systems reviewed and unremarkable except as noted in history and below PFSH [facility] Medical History (Updated 08/23/24 @ 14:30 by Shaikh Ford MD) Hypothyroid ?E03.9 - Hypothyroidism, unspecified (ICD-10) Chronic pain disorder ?G89.4 - Chronic pain syndrome (ICD-10) HLD (hyperlipidemia) ?E78.5 - Hyperlipidemia, unspecified (ICD-10) CAD (coronary artery disease) ?I25.10 - Atherosclerotic heart disease of [place] coronary artery without angina pectoris (ICD-10) Parkinson disease ?G20.A1 - Parkinson's disease without dyskinesia, without mention of fluctuations (ICD-10) High cholesterol ?E78.00 - Pure hypercholesterolemia, unspecified (ICD-10) CVA (cerebral vascular accident) ?I63.9 - Cerebral infarction, unspecified (ICD-10) Surgical History (Updated 08/07/24 @ 13:59 by Melissa San RN) History of bowel resection ?Z90.49 - Acquired absence of other specified parts of digestive tract (ICD-10) H/O heart artery stent ?Z95.5 - Presence of coronary angioplasty implant and graft (ICD-10) Family History (Updated 08/07/24 @ 15:45 by Tanvi Bolse) Father Family history of myocardial infarction Social History (Updated 08/07/24 @ 15:45 by Tanvi Boles) Within the past year, how often did you have a drink containing alcohol: never Within the past year, how often did you have six or more drinks on one occasion: never Score interpretation: A score less than 3 is consistent with normal alcohol consumption. Smoking status: Never smoker Second hand tobacco smoke exposure: No Non-prescribed substance use: denies use Previous occupational history: Retired from [employer] Known occupational exposures/hazards: No Highest level of school completed/degree received: high school graduate Are you now , , , , never or living with a partner: In a typical week, how many times do you talk on the telephone with family, friends, or neighbors: 3 or more times per week How often do you get together with friends or relatives: 3 or more times per week How often do you attend mormonism or restorationist services: 4 or more times per year Do you belong to any clubs or organizations such as mormonism groups unions, fraternal or athletic groups, or school groups: no Total score: 3 Score interpretation: A score of greater than or equal to 2 indicates the lowest level of social isolation. Little interest or pleasure in doing things: not at all Feeling down, depressed, or hopeless: not at all Feel stressed/tense/nervous/anxious/difficulty sleeping: not at all Due to disability, difficulty making decisions: No Do you think of yourself as: straight/heterosexual Gender Identity: female Meds Home Medications and Allergies Home Medications ?Medication ?Instructions ?Recorded ?Confirmed ?Type atorvastatin 20 mg tablet 20 mg PO DAILY 08/07/24 08/07/24 History gabapentin 300 mg capsule 600 mg PO BID 08/07/24 08/23/24 History levothyroxine 75 mcg tablet 75 mcg PO DAILY 08/07/24 08/07/24 History pramipexole 0.25 mg tablet 0.25 mg PO BID 08/07/24 08/07/24 History trihexyphenidyl 2 mg tablet 2 mg PO BID 08/07/24 History oxcarbazepine 150 mg tablet 150 mg PO BID 08/23/24 08/23/24 History Allergies Allergy/AdvReac Type Severity Reaction Status Date / Time No Known Drug Allergies Allergy Verified 08/07/24 11:58 Exam Constitutional Vital Signs, click to edit/add: Last Vital Signs Temp 99.5 F 08/23/24 12:47 Pulse 96 H 08/23/24 13:57 Resp 24 H 08/23/24 12:47 BP 119/76 08/23/24 12:47 Pulse Ox 94 L 08/23/24 12:47 O2 Del Method Room Air 08/23/24 12:47 General appearance: cooperative, comfortable, ill appearing and frail appearing [facility] Common normals: normocephalic and head/scalp atraumatic Respiratory Common normals: normal respiratory effort, no use of accessory muscles and clear to auscultation bilaterally Effort & inspection: able to speak in complete sentences GI Common normals: Normal to inspection, nondistended, normoactive bowel sounds present, soft to palpation and no hepatosplenomegaly Palpation: tender Details: suprapubic Extremity Common normals: normal to inspection and full ROM Neuro Common normals: oriented x3, moves all extremities, no focal motor deficits and no sensory deficits noted Psych Psychiatry clinicians, please identify where your Mental Status Exam is documented: Mental Status Exam documented in the separate MSE Common normals: mental status grossly normal, thought process normal, denies homicidal ideation and denies suicidal ideation Results Labs Labs: Short CBC 08/23/24 Range/Units 09:37 WBC 11.9 H (4.0-11.0) 10^3/uL Hgb 11.4 L (12.0-16.0) g/dL Hct 34.5 L (36.0-48.0) % Plt Count 269 (150-450) 10^3/uL BMP 08/23/24 09:37 Sodium 142 Potassium 2.7 L* Chloride 100 Carbon Dioxide 26.4 BUN 23.0 H Creatinine 1.21 H Glucose 99 Calcium 6.6 L Assessment and Plan Assessment and Plan (1) Ileitis: Assessment and Plan: Likely infectious, started on IV rocephin/flagyl. Continue with IV fluids, supportive care with antiemetics as needed. Advance diet as tolerated. (2) Nausea & vomiting: Assessment and Plan: Likely secondary to ileitis. Zofran as needed. Continue with IV fluids. Advance diet as tolerated Qualifiers: Vomiting type: unspecified Qualified Code(s): R11.2 - Nausea with vomiting, unspecified (3) Infectious diarrhea: Assessment and Plan: Ordered stool for C. difficile. Currently on Rocephin and Flagyl. If she is positive for C. difficile-will discontinue IV antibiotics and start patient on p.o. vancomycin. (4) TRAVIS (acute kidney injury): Assessment and Plan: Baseline serum creatinine of 0.8. Presented with serum creatinine of 1.2. Mild acute kidney injury. Continue with IV hydration. (5) Hypokalemia: Assessment and Plan: Ordered p.o. and IV potassium. Recheck BMP at 5 PM (6) Hypocalcemia: Assessment and Plan: Corrected serum calcium is 7.8. Ordered ionized calcium levels. (7) CAD (coronary artery disease): Assessment and Plan: Stable. Monitor. Qualifiers: Coronary Disease-Associated Artery/Lesion type: [place] artery [place] vs. transplanted heart: [place] heart Associated angina: without angina Qualified Code(s): I25.10 - Atherosclerotic heart disease of [place] coronary artery without angina pectoris (8) Parkinson disease: Assessment and Plan: Symptoms controlled. C/w Mirapex, trihexyphenidyl and trileptal Qualifiers: Dyskinesia presence: with dyskinesia Fluctuating manifestations: without fluctuating manifestations Qualified Code(s): G20.B1 - Parkinson's disease with dyskinesia, without mention of fluctuations (9) Hypothyroid: Assessment and Plan: c/w levothyroxine Qualifiers: Hypothyroidism type: unspecified Qualified Code(s): E03.9 - Hypothyroidism, unspecified (10) HLD (hyperlipidemia): Assessment and Plan: c/w statin Qualifiers: Hyperlipidemia type: unspecified Qualified Code(s): E78.5 - Hyperlipidemia, unspecified
[2024-08-23] MEDS: METRONIDAZOLE/SODIUM CHLORIDE 500 MG/100 ML PREMIX 100 MG IV ×2 (14:24→22:42)
[2024-08-23] MEDS: LACTATED RINGER'S SOLUTION 1,000 ML 125 ML IV (16:08)
[2024-08-23] MEDS: CEFTRIAXONE 1,000 MG in 0.9 % SODIUM CHLORIDE 50 ML 100 MG IV (16:08)
[2024-08-23] MEDS: POTASSIUM CHLORIDE 40 MEQ in 0.9 % SODIUM CHLORIDE 250 ML 67.5 MEQ IV (16:47)
[2024-08-23 17:26] LABS: Anion Gap 16.6; Carbon Dioxide 21.5 mmol/L (21.0-32.0); Chloride 106 mmol/L (98-107); Estimated GFR (African America >60 (>=60 mL/min/1.73m^2); Estimated GFR (Non-African Ame 53 (>=60 mL/min/1.73m^2); Glucose 120 mg/dL (74-106); Potassium 3.1 mmol/L (3.5-5.1); Sodium 141 mmol/L (136-145)
[2024-08-23 17:30] LABS: Calcium 5.7 mg/dL (8.5-10.1)
[2024-08-23] MEDS: GABAPENTIN 300 MG CAPSULE 600 MG PO (20:09)
[2024-08-23] MEDS: TRIHEXYPHENIDYL HCL 2 MG TABLET PO (20:10)
[2024-08-23] MEDS: HEPARIN SODIUM (PORCINE) 5,000 UNIT/ML VIAL 5000 UNIT SUBQ (20:11)
[2024-08-23] MEDS: OXcarbazepine 150 MG TABLET PO (20:11)
[2024-08-23] MEDS: CALCIUM GLUC IN NACL, ISO-OSM 1 GM/50 ML PLAST..BAG IV ×2 (21:06→22:15)
[2024-08-24] VITALS (17 sets, daily range): BP systolic 109–125; BP diastolic 66–68; PULSE 67–94; TEMP 36.8–37.3; O2SAT 91–95
[2024-08-24 00:56] LABS: C. Difficile PCR NEGATIVE
[2024-08-24] MEDS: LACTATED RINGER'S SOLUTION 1,000 ML 125 ML IV ×3 (01:56→17:58)
[2024-08-24] MEDS: LEVOTHYROXINE SODIUM 75 MCG TABLET PO (05:36)
[2024-08-24] MEDS: METRONIDAZOLE/SODIUM CHLORIDE 500 MG/100 ML PREMIX 100 MG IV ×2 (05:38→13:50)
[2024-08-24 06:05] LABS: Basophils Percent Auto 0.4 % (0.2-2.0); Eosinophils Absolute Auto 0.2 10^3/uL (0.0-0.7); Eosinophils Percent Auto 2.5 % (0.9-7.0); Hematocrit 28.4 % (36.0-48.0); Hemoglobin 9.3 g/dL (12.0-16.0); Immature Granulocytes Abs Auto 0.08 10^3/uL (0.00-0.03); Lymphocytes Absolute Auto 1.1 10^3/uL (1.2-3.8); Lymphocytes Percent Auto 13.7 % (20.5-60.0); Mean Corpuscular HGB Conc 32.7 g/dL (29.9-35.2); Mean Corpuscular Hemoglobin 31.1 pg (26.7-34.0); Mean Platelet Volume 9.6 fL (9.5-13.5); Monocytes Absolute Auto 0.6 10^3/uL (0.3-0.8); Monocytes Percent Auto 7.4 % (1.7-12.0); Neutrophils Absolute Auto 5.8 10^3/uL (1.4-6.5); Platelet Count 225 10^3/uL (150-450); Red Blood Count 2.99 10^6/uL (4.20-5.40); Red Cell Distribution Width 13.2 % (11.0-15.0); White Blood Count 7.7 10^3/uL (4.0-11.0)
[2024-08-24 06:20] LABS: Anion Gap 18.2; Carbon Dioxide 21.6 mmol/L (21.0-32.0); Chloride 106 mmol/L (98-107); Glucose 87 mg/dL (74-106); Potassium 3.8 mmol/L (3.5-5.1); Sodium 142 mmol/L (136-145)
[2024-08-24 06:21] LABS: Alanine Aminotransferase 13 U/L (14-59); Albumin Globulin Ratio 0.5; Albumin Level 1.8 g/dL (3.4-5.0); Alkaline Phosphatase 52 U/L (46-116); Aspartate Amino Transferase 20 U/L (15-37); BUN Creatinine Ratio 13.3; Bilirubin Total 0.5 mg/dL (0.2-1.0); Calcium 6.2 mg/dL (8.5-10.1); Estimated GFR (African America >60 (>=60 mL/min/1.73m^2); Estimated GFR (Non-African Ame >60 (>=60 mL/min/1.73m^2); Globulin 3.7 g/dL; Total Protein 5.5 g/dL (6.4-8.2)
[2024-08-24 07:08] LABS: Calcium, Ionized, Serum 3.7 mg/dL (4.5-5.6)
[2024-08-24] MEDS: HEPARIN SODIUM (PORCINE) 5,000 UNIT/ML VIAL 5000 UNIT SUBQ ×2 (08:30→20:53)
[2024-08-24] MEDS: OXcarbazepine 150 MG TABLET PO ×2 (08:30→20:52)
[2024-08-24] MEDS: TRIHEXYPHENIDYL HCL 2 MG TABLET PO ×2 (08:30→20:53)
[2024-08-24] MEDS: PRAMIPEXOLE 1 MG TABLET 0.25 MG PO (08:30)
[2024-08-24] MEDS: GABAPENTIN 300 MG CAPSULE 600 MG PO ×2 (08:30→20:52)
[2024-08-24] MEDS: ATORVASTATIN CALCIUM 20 MG TABLET PO (08:30)
--- NOTE | 2024-08-24 08:56 | PM.PN ---
Progress Note: Subjective Subjective Interval history: Patient denies having any further nausea or vomiting, just lack of appetite and still with diarrhea. She says she continues to have fecal urgency. No fevers or chills, no abdominal pain. Exam Narrative Exam Narrative: General: Patient is alert, and oriented to person, place and time Skin: no visible rashes, or ulcers Head: atraumatic, acephalic Eyes: PERRLA, no nystagmus present, conjunctiva clear, no scleral icterus Ears: normal gross auditory acuity Heart: Normal rate and rhythm, no murmurs/rubs/gallops Lungs: no audible wheezes, crackles and normal breath sounds all lung brito Abdomen: hyperactive bowel sounds, no distension, No palpable masses, no organomegaly, no rebound/guarding/ or rigidity Musculoskeletal: no swelling bilateral lower extremities Neuro: CN II-X grossly intact Constitutional Vital Signs, click to edit/add: Last Vital Signs Temp 98.7 F 08/24/24 07:54 Pulse 92 H 08/24/24 07:56 Resp 16 08/24/24 07:54 BP 116/67 08/24/24 07:54 Pulse Ox 91 L 08/24/24 07:54 O2 Del Method Room Air 08/24/24 07:54 Progress Note: Objective Labs Labs: Short CBC 08/23/24 08/24/24 Range/Units 09:37 05:39 WBC 11.9 H 7.7 (4.0-11.0) 10^3/uL Hgb 11.4 L 9.3 L (12.0-16.0) g/dL Hct 34.5 L 28.4 L (36.0-48.0) % Plt Count 269 225 (150-450) 10^3/uL BMP 08/23/24 08/23/24 08/24/24 09:37 17:09 05:39 Sodium 142 141 142 Potassium 2.7 L* 3.1 L 3.8 Chloride 100 106 106 Carbon Dioxide 26.4 21.5 21.6 BUN 23.0 H 19.0 H 11.0 Creatinine 1.21 H 1.00 0.83 Glucose 99 120 H 87 Calcium 6.6 L 5.7 L* 6.2 L Liver Function 08/24/24 Range/Units 05:39 Total Bilirubin 0.5 (0.2-1.0) mg/dL AST 20 (15-37) U/L ALT 13 L (14-59) U/L Alkaline Phosphatase 52 (46-116) U/L Albumin 1.8 L (3.4-5.0) g/dL Progress Note: A&P Assessment and Plan (1) Ileitis: Assessment and Plan: continue Flagyl and rocephin. Cdiff culture negative. (2) Nausea & vomiting: Assessment and Plan: improved; encouraged her to advance her diet today Qualifiers: Vomiting type: unspecified Qualified Code(s): R11.2 - Nausea with vomiting, unspecified (3) TRAVIS (acute kidney injury): Assessment and Plan: improving, Cr 0.83 and normal today (4) Hypokalemia: Assessment and Plan: replaced yesterday at 3.1, today was 3.8, monitor daily (5) Hypocalcemia: Assessment and Plan: continue to replace as needed. (6) CAD (coronary artery disease): Assessment and Plan: continue atorvastatin Qualifiers: Associated angina: without angina Coronary Disease-Associated Artery/Lesion type: [place] artery [place] vs. transplanted heart: [place] heart Qualified Code(s): I25.10 - Atherosclerotic heart disease of [place] coronary artery without angina pectoris (7) Parkinson disease: Assessment and Plan: continue home meds Qualifiers: Dyskinesia presence: with dyskinesia Fluctuating manifestations: without fluctuating manifestations Qualified Code(s): G20.B1 - Parkinson's disease with dyskinesia, without mention of fluctuations (8) Hypothyroid: Assessment and Plan: continue levothyroxine Qualifiers: Hypothyroidism type: unspecified Qualified Code(s): E03.9 - Hypothyroidism, unspecified (9) HLD (hyperlipidemia): Assessment and Plan: continue statin Qualifiers: Hyperlipidemia type: unspecified Qualified Code(s): E78.5 - Hyperlipidemia, unspecified Plan Patient is a full code continue heparin for DVT prophylaxis Patient will require 1-2 more days of hospital necessary care to treat her ileititis
--- NOTE | 2024-08-24 10:46 | PT.DAILY ---
Physical Therapy Daily Note PT Daily Note/Assess Start: 08/24/24 10:36 Freq: Status: Active Protocol: Document 08/24/24 10:20 ESHULTUmer (Rec: 08/24/24 10:45 ESHULTUmer No Response) Visit Not Completed Visit Not Completed Visit Not Completed Due to: Pt refusing Other Reason Visit Not Completed Patient states feels worse today, that poop is just running out of her. I just can't get up right now. My mouth is so dry. PT did give patient oral swab to help with her dry mouth, per discussion with state tested nursing assistant. PT spent over 20 minutes in room educating patient on importance to get up into chair, and ambulation. Patient continues to decline at this time, but reports will try to get up later around lunch time with nursing when feeling better. Physical Therapy Daily Note/Assessment Time In/Time Out Time In 10:20 Time Out 10:40 GG. Functional Abilities and Goals-Complete for Swing Bed Patients Only [id number]. Self-Care [id number]. Mobility
[2024-08-24] MEDS: CEFTRIAXONE 1,000 MG in 0.9 % SODIUM CHLORIDE 50 ML 100 MG IV (14:57)
--- NOTE | 2024-08-24 16:39 | ECG_ITS ---
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
--- NOTE | 2024-08-24 16:40 | PC.NURSE ---
Patient told aide she was having chest pain. Vitals obtained and WNL. Patient states she takes Nitro at home PRN and uses it about 1x a year. She states this is the same pain she normally has when she needs the Nitro. She states the pain is a constant, sharp pain in her chest that radiates up into her neck. STAT EKG has been ordered. Another RN has attempted to get ahold of Dr Cleveland for further orders.
--- NOTE | 2024-08-24 16:49 | XR_ITS ---
The [address] [address] Patient Name: NARCISO VELASQUEZ MRN: [id number] date: 1940 Sex: F Assigned Patient Location: [place] Current Patient Location: [place] Accession/Order Number: [id number] Exam Date: 08/24/2024 17:18 Report Date: 08/24/2024 19:17 At the request of: ANGELICA HAWKINS Procedure: XR chest 1V EXAM: XR chest 1V , 08/24/2024 HISTORY: Chest pain COMPARISON: Previous x-ray from 08/23/2024 TECHNIQUE: X-ray of the chest, portable upright AP view. FINDINGS: Persistent left retrocardiac and lower lung density consistent with infiltrate. Mild atelectasis/infiltrate in the right lung base. Cardiac silhouette within normal limits. Mild atherosclerotic calcification of the aortic arch. No hilar or mediastinal enlargement. No acute osseous findings. No evidence of pleural effusion. XR/XR chest 1V IMPRESSION: Left lower lobe infiltrate and likely right basal infiltrate. Electronically authenticated by: GIA SHARP Date: 08/24/2024 19:17
[2024-08-24] MEDS: NITROGLYCERIN 0.4 MG BOTTLE SL (16:56)
[2024-08-24 17:28] LABS: Troponin I High Sensitivity 115.2 pg/mL (4.0-51.3)
[2024-08-24] MEDS: ASPIRIN 325 MG TABLET PO (17:56)
[2024-08-24 17:58] LABS: Anion Gap 19.5; BUN Creatinine Ratio 12.5; Calcium 6.4 mg/dL (8.5-10.1); Carbon Dioxide 20.1 mmol/L (21.0-32.0); Chloride 102 mmol/L (98-107); Estimated GFR (African America >60 (>=60 mL/min/1.73m^2); Estimated GFR (Non-African Ame >60 (>=60 mL/min/1.73m^2); Glucose 77 mg/dL (74-106); Potassium 3.6 mmol/L (3.5-5.1); Sodium 138 mmol/L (136-145)
[2024-08-24] MEDS: OXYCODONE HCL 5 MG TABLET 2.5 MG PO (20:52)
[2024-08-24] MEDS: PIPERACILLIN SODIUM/TAZOBACTAM 3.375 GM in 0.9 % SODIUM CHLORIDE 50 ML IV (20:53)
[2024-08-24 21:09] LABS: Troponin I High Sensitivity 95.8 pg/mL (4.0-51.3)
[2024-08-25] VITALS (17 sets, daily range): BP systolic 102–129; BP diastolic 48–72; PULSE 70–101; TEMP 36.4–37.2; O2SAT 93–94
[2024-08-25] MEDS: LACTATED RINGER'S SOLUTION 1,000 ML 125 ML IV (04:51)
[2024-08-25] MEDS: PIPERACILLIN SODIUM/TAZOBACTAM 3.375 GM in 0.9 % SODIUM CHLORIDE 50 ML IV ×3 (04:51→21:09)
[2024-08-25 06:00] LABS: Basophils Absolute Auto 0.1 10^3/uL (0.0-0.1); Basophils Percent Auto 0.5 % (0.2-2.0); Eosinophils Absolute Auto 0.1 10^3/uL (0.0-0.7); Eosinophils Percent Auto 1.4 % (0.9-7.0); Hematocrit 30.3 % (36.0-48.0); Hemoglobin 9.9 g/dL (12.0-16.0); Immature Granulocytes Abs Auto 0.17 10^3/uL (0.00-0.03); Immature Granulocytes Pct Auto 1.8 % (0.0-0.5); Lymphocytes Percent Auto 10.3 % (20.5-60.0); Mean Corpuscular HGB Conc 32.7 g/dL (29.9-35.2); Mean Corpuscular Hemoglobin 31.3 pg (26.7-34.0); Mean Corpuscular Volume 95.9 fL (81.0-99.0); Mean Platelet Volume 9.3 fL (9.5-13.5); Monocytes Absolute Auto 0.7 10^3/uL (0.3-0.8); Monocytes Percent Auto 7.6 % (1.7-12.0); Neutrophils Absolute Auto 7.2 10^3/uL (1.4-6.5); Neutrophils Percent Auto 78.4 % (43.0-75.0); Platelet Count 219 10^3/uL (150-450); Red Blood Count 3.16 10^6/uL (4.20-5.40); Red Cell Distribution Width 12.9 % (11.0-15.0); White Blood Count 9.2 10^3/uL (4.0-11.0)
[2024-08-25 06:19] LABS: Alanine Aminotransferase 12 U/L (14-59); Albumin Globulin Ratio 0.5; Albumin Level 1.8 g/dL (3.4-5.0); Alkaline Phosphatase 53 U/L (46-116); Aspartate Amino Transferase 18 U/L (15-37); BUN Creatinine Ratio 15.1; Bilirubin Total 0.6 mg/dL (0.2-1.0); Calcium 6.4 mg/dL (8.5-10.1); Carbon Dioxide 20.5 mmol/L (21.0-32.0); Chloride 103 mmol/L (98-107); Chol HDL Ratio 1.9; Cholesterol 76 mg/dL (<=200); Estimated GFR (African America >60 (>=60 mL/min/1.73m^2); Estimated GFR (Non-African Ame >60 (>=60 mL/min/1.73m^2); Globulin 3.7 g/dL; Glucose 52 mg/dL (74-106); HDL Cholesterol 41 mg/dL (40-60); LDL Cholesterol Calculated 21.2 mg/dL; Potassium 3.5 mmol/L (3.5-5.1); Sodium 139 mmol/L (136-145); Total Protein 5.5 g/dL (6.4-8.2); Triglycerides 69 mg/dL (<=150); VLDL CHOLESTEROL 13.8 mg/dL
[2024-08-25 06:26] LABS: Thyroid Stimulating Hormone 7.483 uIU/mL (0.358-3.740)
[2024-08-25] MEDS: LEVOTHYROXINE SODIUM 75 MCG TABLET PO (06:47)
--- NOTE | 2024-08-25 07:53 | P.PN_ITS ---
Progress Note: Subjective Subjective Interval history: Patient denies having any further nausea or vomiting, just lack of appetite and still with diarrhea but very few episodes today. No fevers, but chills, no abdominal pain. Increased productive cough. No further chest pain since yesterday evening. Exam Narrative Exam Narrative: General: Patient is alert, and oriented to person, place and time Skin: no visible rashes, or ulcers Head: atraumatic, acephalic Eyes: PERRLA, no nystagmus present, conjunctiva clear, no scleral icterus Ears: normal gross auditory acuity Heart: Normal rate and rhythm, no murmurs/rubs/gallops Lungs: no audible wheezes, crackles and normal breath sounds all lung brito Abdomen: hyperactive bowel sounds, no distension, No palpable masses, no organomegaly, no rebound/guarding/ or rigidity Musculoskeletal: no swelling bilateral lower extremities Neuro: CN II-X grossly intact Constitutional Vital Signs, click to edit/add: Last Vital Signs Temp 97.6 F 08/25/24 00:00 Pulse 75 08/25/24 06:00 Resp 14 08/25/24 00:00 BP 102/48 L 08/25/24 00:00 Pulse Ox 93 L 08/25/24 00:00 O2 Del Method Room Air 08/25/24 00:00 Progress Note: Objective Labs Labs: Short CBC 08/25/24 Range/Units 05:48 WBC 9.2 (4.0-11.0) 10^3/uL Hgb 9.9 L (12.0-16.0) g/dL Hct 30.3 L (36.0-48.0) % Plt Count 219 (150-450) 10^3/uL BMP 08/24/24 08/25/24 17:02 05:48 Sodium 138 139 Potassium 3.6 3.5 Chloride 102 103 Carbon Dioxide 20.1 L 20.5 L BUN 10.0 13.0 Creatinine 0.80 0.86 Glucose 77 52 L Calcium 6.4 L 6.4 L Liver Function 08/25/24 Range/Units 05:48 Total Bilirubin 0.6 (0.2-1.0) mg/dL AST 18 (15-37) U/L ALT 12 L (14-59) U/L Alkaline Phosphatase 53 (46-116) U/L Albumin 1.8 L (3.4-5.0) g/dL Progress Note: A&P Assessment and Plan (1) Ileitis: Assessment and Plan: stopped Flagyl and rocephin, continue zosyn. Cdiff culture negative. (2) Pneumonia: Assessment and Plan: added zosyn last night, I think this is what is causing cough and her chest pain episode yesterday. Will get OPEP. PT/OT evaluation tomorrow. Qualifiers: Pneumonia type: due to unspecified organism Laterality: bilateral Lung location: lower lobe of lung Qualified Code(s): J18.9 - Pneumonia, unspecified organism (3) Nausea & vomiting: Assessment and Plan: mproved; encouraged her to advance her diet today Qualifiers: Vomiting type: unspecified Qualified Code(s): R11.2 - Nausea with vomiting, unspecified (4) TRAVIS (acute kidney injury): Assessment and Plan: normal today (5) Hypokalemia: Assessment and Plan: normal range (6) Hypocalcemia: Assessment and Plan: continue to replace as needed (7) CAD (coronary artery disease): Assessment and Plan: continue atorvastatin Qualifiers: Associated angina: without angina Coronary Disease-Associated Artery/Lesion type: [place] artery [place] vs. transplanted heart: [place] heart Qualified Code(s): I25.10 - Atherosclerotic heart disease of [place] coronary artery without angina pectoris (8) Parkinson disease: Assessment and Plan: continue home meds Qualifiers: Dyskinesia presence: with dyskinesia Fluctuating manifestations: with out fluctuating manifestations Qualified Code(s): G20.B1 - Parkinson's disease with dyskinesia, without mention of fluctuations (9) Hypothyroid: Assessment and Plan: continue levothyroxine Qualifiers: Hypothyroidism type: unspecified Qualified Code(s): E03.9 - Hypothyroidism, unspecified (10) HLD (hyperlipidemia): Assessment and Plan: continue statin Qualifiers: Hyperlipidemia type: unspecified Qualified Code(s): E78.5 - Hyperlipidemia, unspecified Plan Patient is a full code continue heparin for DVT prophylaxis Patient will require 1-2 more days of hospital necessary care to treat her ileititis
[2024-08-25 08:18] LABS: Magnesium 1.3 mg/dL (1.8-2.4)
[2024-08-25] MEDS: ATORVASTATIN CALCIUM 20 MG TABLET PO (08:53)
[2024-08-25] MEDS: TRIHEXYPHENIDYL HCL 2 MG TABLET PO ×2 (08:53→21:09)
[2024-08-25] MEDS: PRAMIPEXOLE 1 MG TABLET 0.25 MG PO ×2 (08:53→21:10)
[2024-08-25] MEDS: GABAPENTIN 300 MG CAPSULE 600 MG PO ×2 (08:53→21:10)
[2024-08-25] MEDS: OXcarbazepine 150 MG TABLET PO ×2 (08:53→21:10)
[2024-08-25] MEDS: HEPARIN SODIUM (PORCINE) 5,000 UNIT/ML VIAL 5000 UNIT SUBQ ×2 (08:54→21:09)
[2024-08-25] MEDS: MAGNESIUM SULFATE IN WATER 2 GM/50 ML PREMIX IV (15:13)
[2024-08-26] VITALS (21 sets, daily range): BP systolic 109–147; BP diastolic 60–76; PULSE 63–91; TEMP 36.8–37.2; O2SAT 90–94
[2024-08-26] MEDS: PIPERACILLIN SODIUM/TAZOBACTAM 3.375 GM in 0.9 % SODIUM CHLORIDE 50 ML IV ×3 (05:10→19:47)
[2024-08-26] MEDS: LEVOTHYROXINE SODIUM 75 MCG TABLET PO (05:35)
[2024-08-26 06:03] LABS: Hematocrit 25.6 % (36.0-48.0); Hemoglobin 8.8 g/dL (12.0-16.0); Mean Corpuscular HGB Conc 34.4 g/dL (29.9-35.2); Mean Corpuscular Hemoglobin 31.8 pg (26.7-34.0); Mean Corpuscular Volume 92.4 fL (81.0-99.0); Platelet Count 246 10^3/uL (150-450); Red Blood Count 2.77 10^6/uL (4.20-5.40); Red Cell Distribution Width 12.9 % (11.0-15.0); White Blood Count 9.3 10^3/uL (4.0-11.0)
[2024-08-26 06:14] LABS: Alanine Aminotransferase 11 U/L (14-59); Albumin Globulin Ratio 0.4; Albumin Level 1.7 g/dL (3.4-5.0); Alkaline Phosphatase 50 U/L (46-116); Anion Gap 19.7; Aspartate Amino Transferase 20 U/L (15-37); BUN Creatinine Ratio 12.7; Bilirubin Total 0.6 mg/dL (0.2-1.0); Carbon Dioxide 21.4 mmol/L (21.0-32.0); Chloride 101 mmol/L (98-107); Estimated GFR (African America >60 (>=60 mL/min/1.73m^2); Estimated GFR (Non-African Ame >60 (>=60 mL/min/1.73m^2); Globulin 3.9 g/dL; Glucose 68 mg/dL (74-106); Potassium 3.1 mmol/L (3.5-5.1); Sodium 139 mmol/L (136-145); Total Protein 5.6 g/dL (6.4-8.2)
[2024-08-26 06:24] LABS: Calcium 5.6 mg/dL (8.5-10.1)
[2024-08-26 06:57] LABS: Eosinophils Absolute Manual 0.18 10^3/uL (0.00-0.70); Monocytes Absolute Manual 0.55 10^3/uL (0.30-0.80)
[2024-08-26 06:58] LABS: Segmented Neut Absolute Manual 5.95 10^3/uL (1.4-6.5)
--- NOTE | 2024-08-26 08:51 | PM.DS1 ---
DS: Providers Provider Date of admission: 08/25/24 09:44 Primary care physician: Seema Sutherland NP Consults: 08/23/24 11:46 Occupational Therapy Eval and Treat Routine Reason for consultation: Ambulatory dysfunction/weakness Physical Therapy Eval and Treat Routine Reason for consultation: Ambulatory dysfunction/weakness 08/25/24 07:46 Occupational Therapy Eval and Treat Routine Reason for consultation: weakness Has provider been notified: No Physical Therapy Eval and Treat Routine Reason for consultation: weakness Has provider been notified: No DS: Diagnosis Discharge Diagnosis (1) Ileitis: (2) Pneumonia: Qualifiers: Pneumonia type: due to unspecified organism Laterality: bilateral Lung location: lower lobe of lung Qualified Code(s): J18.9 - Pneumonia, unspecified organism (3) Nausea & vomiting: Qualifiers: Vomiting type: unspecified Qualified Code(s): R11.2 - Nausea with vomiting, unspecified (4) TRAVIS (acute kidney injury): (5) Hypokalemia: (6) Hypocalcemia: (7) CAD (coronary artery disease): Qualifiers: Coronary Disease-Associated Artery/Lesion type: [place] artery [place] vs. transplanted heart: [place] heart Associated angina: without angina Qualified Code(s): I25.10 - Atherosclerotic heart disease of [place] coronary artery without angina pectoris (8) Parkinson disease: Qualifiers: Dyskinesia presence: with dyskinesia Fluctuating manifestations: without fluctuating manifestations Qualified Code(s): G20.B1 - Parkinson's disease with dyskinesia, without mention of fluctuations (9) Hypothyroid: Qualifiers: Hypothyroidism type: unspecified Qualified Code(s): E03.9 - Hypothyroidism, unspecified (10) HLD (hyperlipidemia): Qualifiers: Hyperlipidemia type: unspecified Qualified Code(s): E78.5 - Hyperlipidemia, unspecified DS: Summary Time Spent with Patient Time attestation: Total time spent providing and/or coordinating discharge services: Exam Constitutional Vital Signs, click to edit/add: Last Vital Signs Temp 98.4 F 08/26/24 07:21 Pulse 74 08/26/24 08:00 Resp 18 08/26/24 07:22 BP 109/60 08/26/24 07:21 Pulse Ox 92 L 08/26/24 07:21 O2 Del Method Room Air 08/26/24 07:21 DS: Data Data Completed and Pending Labs on day of discharge: Labs from last 24 hours 08/26/24 05:26 WBC 9.3 RBC 2.77 L Hgb 8.8 L Hct 25.6 L MCV 92.4 MCH 31.8 MCHC 34.4 RDW 12.9 Plt Count 246 MPV 10.0 Seg Neuts % (Manual) 64.0 Lymphocytes % (Manual) 28.0 Monocytes % (Manual) 6.0 Eosinophils % (Manual) 2.0 Basophils % (Manual) 0.0 L Neutrophils # (Manual) 5.95 Lymphocytes # (Manual) 2.60 Monocytes # (Manual) 0.55 Eosinophils # (Manual) 0.18 Basophils # (Manual) 0.00 Sodium 139 Potassium 3.1 L Chloride 101 Carbon Dioxide 21.4 Anion Gap 19.7 BUN 10.0 Creatinine 0.79 Est GFR ( Amer) >60 Est GFR (Non-Af Amer) >60 BUN/Creatinine Ratio 12.7 Glucose 68 L Calcium 5.6 L* Total Bilirubin 0.6 AST 20 ALT 11 L Alkaline Phosphatase 50 Total Protein 5.6 L Albumin 1.7 L Globulin 3.9 Albumin/Globulin Ratio 0.4 Discharge Plan Discharge Condition: Fair Discharge Medications: No Action oxcarbazepine 150 mg tablet 150 mg PO BID atorvastatin 20 mg tablet 20 mg PO DAILY gabapentin 300 mg capsule 600 mg PO BID levothyroxine 75 mcg tablet 75 mcg PO DAILY pramipexole 0.25 mg tablet 0.25 mg PO TID trihexyphenidyl 2 mg tablet 2 mg PO BID Print Language: Welsh
[2024-08-26] MEDS: PRAMIPEXOLE 1 MG TABLET 0.25 MG PO ×2 (08:57→20:32)
[2024-08-26] MEDS: GABAPENTIN 300 MG CAPSULE 600 MG PO ×2 (08:57→20:32)
[2024-08-26] MEDS: HEPARIN SODIUM (PORCINE) 5,000 UNIT/ML VIAL 5000 UNIT SUBQ ×2 (08:57→20:32)
[2024-08-26] MEDS: OXcarbazepine 150 MG TABLET PO ×2 (08:57→20:33)
[2024-08-26] MEDS: CALCIUM CARBONATE 600 MG TABLET PO ×2 (08:58→20:32)
[2024-08-26] MEDS: ATORVASTATIN CALCIUM 20 MG TABLET PO (08:58)
[2024-08-26] MEDS: TRIHEXYPHENIDYL HCL 2 MG TABLET PO ×2 (08:58→20:32)
[2024-08-26] MEDS: POTASSIUM CHLORIDE 10 MEQ ER TABLET 20 MEQ PO ×2 (08:58→20:32)
[2024-08-26] MEDS: MAGNESIUM SULFATE IN WATER 2 GM/50 ML PREMIX IV (08:58)
--- NOTE | 2024-08-26 11:29 | CM.NOTE ---
Rounds made with Dr. Cleveland, discussed with pt discharge planning and PT recommending skilled therapy for safety. Pt refuses skilled, pt is in agreement to [facility] at discharge. Pt states her assists her at home. Pt will f/u with PCP.
--- NOTE | 2024-08-26 11:35 | SWNOTE1 ---
LAN spoke with doctor and pt is still refusing to go to SNF at this time. Pt wants to return home with [facility]. LNA called and spoke with pt's and let him know that is refusing SNF. LAN asked if he will be able to assist her at home. He voiced for most things he can help her, but not the therapy and he wants home care to keep coming in. LAN advised him that [facility] will continue to come in. He voiced the nurse is working on getting a shower chair for pt at home. LAN then asked if we help get pt in the car, will he be able to get her out? He stated as long as she walks. LAN advised that pt has been refusing to work with therapy. voiced he will be on his way here shortly and can assess the situation once he arrives.
--- NOTE | 2024-08-26 11:41 | PT.DAILY ---
Physical Therapy Daily Note PT Daily Note/Assess Start: 08/24/24 10:36 Freq: Status: Active Protocol: Document 08/26/24 11:38 OLU (Rec: 08/26/24 11:41 OLU No Response) Visit Not Completed Visit Not Completed Visit Not Completed Due to: Pt level of alertness,Pt refusing Other Reason Visit Not Completed Pt cont to refuse pt. Reports I just feel rotten, I'm not getting up. I am just going to rest until they let me out of here this afternoon. Pt offered to get into chair, sit EOB, supine ex or if she needed to use restroom - declines all of these. Remains supine with call light without in reach and needs met . Physical Therapy Daily Note/Assessment Time In/Time Out Time In 11:29 Time Out 11:34 Pain In Pain N/A Pain Out Pain N/A GG. Functional Abilities and Goals-Complete for Swing Bed Patients Only [id number]. Self-Care [id number]. Mobility
--- NOTE | 2024-08-26 12:12 | CM.NOTE ---
Important Message From Medicare discussed with pt, pt verbalizes understanding and signs paper. Original given to pt and copy placed on pt's chart.
[2024-08-26 13:12] LABS: PTH, Intact 3 pg/mL (15-65)
--- NOTE | 2024-08-26 13:22 | SWNOTE1 ---
SW spoke to pt and in room. SW let pt's know that pt has not worked with therapy. Nurse and SW checked notes from today and pt refused. SW advised pt and that concerns for pt's safety going home. SW let both patient and know that pt would greatly benefit from a short term rehab stay to help her get stronger. Pt and spoke about it for a minute. Pt then agreed but the only place she will go is the [facility]. She stated if she can't get in to [facility] then she will go home. She also stated her sister is at the [facility]. SW to check with doctor and updated the nurse. Doctor is in agreement with this plan. SW advised pt and of the Medicare coverage and rules. SW let them know pt will need a 3 day qualifying inpt stay for Medicare to pay. If she does not qualify for 3 day inpt, then rehab will be out of pocket. They both voiced understanding. SW reached out to [facility] and they do have openings and will review referral. Referral sent to [facility]. Referral included face sheet, ED note, H&P, provider notes, case management report, nursing notes, diagnostic imaging, med list, and PT/OT notes. SW did advise pt that she will need to participate with therapy, if she does not Medicare will cut her. SW also let her know the [facility] will want to see that she is going to participate as well. She voiced that she will.
--- NOTE | 2024-08-26 13:23 | PM.PN ---
Progress Note: Subjective Subjective Interval history: Patient denies having any further nausea or vomiting, just lack of appetite no further diarrhea. No fevers, or chills, no abdominal pain. Increased productive cough. No further chest pain. Patient originally refused inpatient rehab which was suggested by PT/OT but with husbands encouragement she is amendable to going. Exam Narrative Exam Narrative: General: Patient is alert, and oriented to person, place and time Skin: no visible rashes, or ulcers Head: atraumatic, acephalic Eyes: PERRLA, no nystagmus present, conjunctiva clear, no scleral icterus Ears: normal gross auditory acuity Heart: Normal rate and rhythm, no murmurs/rubs/gallops Lungs: no audible wheezes, crackles and normal breath sounds all lung brito Abdomen: hyperactive bowel sounds, no distension, No palpable masses, no organomegaly, no rebound/guarding/ or rigidity Musculoskeletal: no swelling bilateral lower extremities Neuro: CN II-X grossly intact Constitutional Vital Signs, click to edit/add: Last Vital Signs Temp 98.4 F 08/26/24 07:21 Pulse 87 08/26/24 11:47 Resp 18 08/26/24 07:22 BP 109/60 08/26/24 07:21 Pulse Ox 93 L 08/26/24 11:29 O2 Del Method Room Air 08/26/24 11:29 Progress Note: Objective Labs Labs: Short CBC 08/26/24 Range/Units 05:26 WBC 9.3 (4.0-11.0) 10^3/uL Hgb 8.8 L (12.0-16.0) g/dL Hct 25.6 L (36.0-48.0) % Plt Count 246 (150-450) 10^3/uL BMP 08/26/24 05:26 Sodium 139 Potassium 3.1 L Chloride 101 Carbon Dioxide 21.4 BUN 10.0 Creatinine 0.79 Glucose 68 L Calcium 5.6 L* Liver Function 08/26/24 Range/Units 05:26 Total Bilirubin 0.6 (0.2-1.0) mg/dL AST 20 (15-37) U/L ALT 11 L (14-59) U/L Alkaline Phosphatase 50 (46-116) U/L Albumin 1.7 L (3.4-5.0) g/dL Progress Note: A&P Assessment and Plan (1) Ileitis: Assessment and Plan: stopped Flagyl and rocephin, continue zosyn. Cdiff culture negative, awaiting stool culture (2) Pneumonia: Assessment and Plan: continue zosyn and opep therapy Qualifiers: Pneumonia type: due to unspecified organism Laterality: bilateral Lung location: lower lobe of lung Qualified Code(s): J18.9 - Pneumonia, unspecified organism (3) Hypokalemia: Assessment and Plan: replaced potassium today K was 3.1 (4) Hypocalcemia: Assessment and Plan: added oral calcium 600mg BID (5) Nausea & vomiting: Assessment and Plan: resolved Qualifiers: Vomiting type: unspecified Qualified Code(s): R11.2 - Nausea with vomiting, unspecified (6) Hypomagnesemia: Assessment and Plan: mag was 1.3, replaced with 2 Grams IV (7) TRAVIS (acute kidney injury): Assessment and Plan: resolved (8) CAD (coronary artery disease): Assessment and Plan: continue atorvastatin Qualifiers: Coronary Disease-Associated Artery/Lesion type: [place] artery [place] vs. transplanted heart: [place] heart Associated angina: without angina Qualified Code(s): I25.10 - Atherosclerotic heart disease of [place] coronary artery without angina pectoris (9) Parkinson disease: Assessment and Plan: continue home meds Qualifiers: Dyskinesia presence: with dyskinesia Fluctuating manifestations: without fluctuating manifestations Qualified Code(s): G20.B1 - Parkinson's disease with dyskinesia, without mention of fluctuations (10) Hypothyroid: Assessment and Plan: continue levothyroxine Qualifiers: Hypothyroidism type: unspecified Qualified Code(s): E03.9 - Hypothyroidism, unspecified (11) HLD (hyperlipidemia): Assessment and Plan: continue statin Qualifiers: Hyperlipidemia type: unspecified Qualified Code(s): E78.5 - Hyperlipidemia, unspecified Plan Patient is a full code continue heparin for DVT prophylaxis Patient with several electrolyte abnormalities today, PT/OT evaluation recommendations are for skilled/rehab, patient requires 2 more days of hospital necessary care
--- NOTE | 2024-08-26 15:54 | SWNOTE1 ---
SW did call [facility] and updated them on pt's plan of going to rehab.
--- NOTE | 2024-08-26 16:14 | DIETREC ---
Recommend 237 mL Ensure Original BID for added nutrients and to stimulate appetite. Will continue to follow PRN.
[2024-08-26] MEDS: ENSURE ORIGINAL 237 ML BOTTLE PO (20:33)
[2024-08-27] VITALS (19 sets, daily range): BP systolic 105–128; BP diastolic 63–76; PULSE 61–94; TEMP 36.7–36.9; O2SAT 90–94; BMI 20.5
[2024-08-27] MEDS: PIPERACILLIN SODIUM/TAZOBACTAM 3.375 GM in 0.9 % SODIUM CHLORIDE 50 ML IV ×2 (04:13→11:55)
[2024-08-27] MEDS: LEVOTHYROXINE SODIUM 75 MCG TABLET 100 MCG PO (05:52)
[2024-08-27 06:16] LABS: Basophils Percent Auto 0.4 % (0.2-2.0); Eosinophils Absolute Auto 0.2 10^3/uL (0.0-0.7); Eosinophils Percent Auto 2.2 % (0.9-7.0); Hematocrit 29.8 % (36.0-48.0); Hemoglobin 9.9 g/dL (12.0-16.0); Immature Granulocytes Abs Auto 0.23 10^3/uL (0.00-0.03); Immature Granulocytes Pct Auto 2.9 % (0.0-0.5); Lymphocytes Absolute Auto 1.2 10^3/uL (1.2-3.8); Lymphocytes Percent Auto 14.8 % (20.5-60.0); Mean Corpuscular HGB Conc 33.2 g/dL (29.9-35.2); Mean Corpuscular Hemoglobin 30.6 pg (26.7-34.0); Mean Platelet Volume 9.3 fL (9.5-13.5); Monocytes Absolute Auto 0.7 10^3/uL (0.3-0.8); Monocytes Percent Auto 8.7 % (1.7-12.0); Neutrophils Absolute Auto 5.7 10^3/uL (1.4-6.5); Platelet Count 250 10^3/uL (150-450); Red Blood Count 3.24 10^6/uL (4.20-5.40); Red Cell Distribution Width 12.8 % (11.0-15.0)
[2024-08-27 06:30] LABS: Alanine Aminotransferase 12 U/L (14-59); Albumin Globulin Ratio 0.4; Albumin Level 1.7 g/dL (3.4-5.0); Alkaline Phosphatase 52 U/L (46-116); Anion Gap 15.2; Aspartate Amino Transferase 18 U/L (15-37); Bilirubin Total 0.4 mg/dL (0.2-1.0); Carbon Dioxide 26.2 mmol/L (21.0-32.0); Chloride 99 mmol/L (98-107); Estimated GFR (African America >60 (>=60 mL/min/1.73m^2); Estimated GFR (Non-African Ame >60 (>=60 mL/min/1.73m^2); Glucose 90 mg/dL (74-106); Potassium 3.4 mmol/L (3.5-5.1); Sodium 137 mmol/L (136-145); Total Protein 5.7 g/dL (6.4-8.2)
[2024-08-27 06:32] LABS: Calcium 5.9 mg/dL (8.5-10.1)
--- NOTE | 2024-08-27 08:31 | P.PN_ITS ---
Progress Note: Subjective Subjective Interval history: Patient denies having any further nausea or vomiting, just lack of appetite no further diarrhea. No fevers, or chills, no abdominal pain. No cough. No further chest pain. Patient originally refused inpatient rehab which was suggested by PT/OT but with husbands encouragement she is amendable to going. No other complaints today other than being tired. She does like the Ensure shakes that was added yesterday. Exam Narrative Exam Narrative: General: Patient is alert, and oriented to person, place and time, very weak this morning and tired but answers questions appropriately Skin: no visible rashes, or ulcers Head: atraumatic, acephalic Eyes: PERRLA, no nystagmus present, conjunctiva clear, no scleral icterus Ears: normal gross auditory acuity Heart: Normal rate and rhythm, no murmurs/rubs/gallops Lungs: no audible wheezes, crackles and normal breath sounds all lung brito Abdomen: hyperactive bowel sounds, no distension, No palpable masses, no organomegaly, no rebound/guarding/ or rigidity Musculoskeletal: no swelling bilateral lower extremities Neuro: CN II-X grossly intact Constitutional Vital Signs, click to edit/add: Last Vital Signs Temp 98.0 F 08/27/24 08:05 Pulse 74 08/27/24 08:05 Resp 16 08/27/24 08:05 BP 128/76 08/27/24 08:05 Pulse Ox 92 L 08/27/24 08:05 O2 Del Method Room Air 08/27/24 08:05 Progress Note: Objective Labs Labs: Short CBC 08/27/24 Range/Units 06:07 WBC 8.0 (4.0-11.0) 10^3/uL Hgb 9.9 L (12.0-16.0) g/dL Hct 29.8 L (36.0-48.0) % Plt Count 250 (150-450) 10^3/uL BMP 08/27/24 06:07 Sodium 137 Potassium 3.4 L Chloride 99 Carbon Dioxide 26.2 BUN 8.0 Creatinine 0.80 Glucose 90 Calcium 5.9 L* Liver Function 08/27/24 Range/Units 06:07 Total Bilirubin 0.4 (0.2-1.0) mg/dL AST 18 (15-37) U/L ALT 12 L (14-59) U/L Alkaline Phosphatase 52 (46-116) U/L Albumin 1.7 L (3.4-5.0) g/dL Progress Note: A&P Assessment and Plan (1) Ileitis: Assessment and Plan: stopped Flagyl and rocephin, will stop zosyn today, will add PO levaquin . Cdiff culture negative,stool culture negative (2) Pneumonia: Assessment and Plan: opep therapy, and start PO levaquin off Zosyn Qualifiers: Laterality: bilateral Lung location: lower lobe of lung Pneumonia type: due to unspecified organism Qualified Code(s): J18.9 - Pneumonia, unspecified organism (3) Hypokalemia: Assessment and Plan: continue to replace orally. (4) Hypocalcemia: Assessment and Plan: continue to replace orally (5) Nausea & vomiting: Assessment and Plan: resolved Qualifiers: Vomiting type: unspecified Qualified Code(s): R11.2 - Nausea with vomiting, unspecified (6) Hypomagnesemia: Assessment and Plan: continue to replace (7) TRAVIS (acute kidney injury): Assessment and Plan: resolved, Creatinine at baseline (8) CAD (coronary artery disease): Assessment and Plan: continue atorvastatin Qualifiers: Associated angina: without angina Coronary Disease-Associated Artery/Lesion type: [place] artery [place] vs. transplanted heart: [place] heart Qualified Code(s): I25.10 - Atherosclerotic heart disease of [place] coronary artery without angina pectoris (9) Parkinson disease: Assessment and Plan: continue home meds Qualifiers: Dyskinesia presence: with dyskinesia Fluctuating manifestations: without fluctuating manifestations Qualified Code(s): G20.B1 - Parkinson's disease with dyskinesia, without mention of fluctuations (10) Hypothyroid: Assessment and Plan: continue levothyroxine Qualifiers: Hypothyroidism type: unspecified Qualified Code(s): E03.9 - Hypothyroidism, unspecified (11) HLD (hyperlipidemia): Assessment and Plan: continue statin Qualifiers: Hyperlipidemia type: unspecified Qualified Code(s): E78.5 - Hyperlipidemia, unspecified (12) Protein calorie malnutrition: Assessment and Plan: continue ENsure BID Qualifiers: Protein-calorie malnutrition severity: moderate Qualified Code(s): E44.0 - Moderate protein-calorie malnutrition Plan Patient is a full code continue heparin for DVT prophylaxis Patient with several electrolyte abnormalities continue to corrent, PT/OT evaluation recommendations are for skilled/rehab, patient requires 1 more days of hospital necessary care
[2024-08-27] MEDS: ENSURE ORIGINAL 237 ML BOTTLE PO ×2 (09:24→21:56)
[2024-08-27] MEDS: CALCIUM CARBONATE 600 MG TABLET PO ×2 (09:25→21:56)
[2024-08-27] MEDS: GABAPENTIN 300 MG CAPSULE 600 MG PO ×2 (09:25→21:56)
[2024-08-27] MEDS: POTASSIUM CHLORIDE 10 MEQ ER TABLET 20 MEQ PO ×3 (09:25→16:19)
[2024-08-27] MEDS: PRAMIPEXOLE 1 MG TABLET 0.25 MG PO ×2 (09:25→21:56)
[2024-08-27] MEDS: TRIHEXYPHENIDYL HCL 2 MG TABLET PO ×2 (09:25→21:56)
[2024-08-27] MEDS: MAGNESIUM SULFATE IN WATER 2 GM/50 ML PREMIX IV (09:26)
[2024-08-27] MEDS: HEPARIN SODIUM (PORCINE) 5,000 UNIT/ML VIAL 5000 UNIT SUBQ ×2 (09:26→21:56)
[2024-08-27] MEDS: ATORVASTATIN CALCIUM 20 MG TABLET PO (09:26)
[2024-08-27] MEDS: OXcarbazepine 150 MG TABLET PO ×2 (09:30→21:56)
--- NOTE | 2024-08-27 09:46 | SWNOTE1 ---
SW completed HENS for [place].
--- NOTE | 2024-08-27 11:09 | REH.PTDLY ---
Physical Therapy Daily Note PT Daily Note/Assess Start: 08/24/24 10:36 Freq: Status: Active Protocol: Document 08/27/24 10:45 LO (Rec: 08/27/24 11:09 LO [id number]) Physical Therapy Daily Note/Assessment Time In 08:40 Time Out 09:05 Subjective Pt initially declines PT and says she does not want to do anything. After further discussion with pt, she is agreeable to try therapy. Therapeutic Exercise Minutes (minutes) 9 Therapeutic Exercise Units 1 Therapeutic Exercise Treatment Instructed in B LE supine exs 10x ea with AA for greater ROM . Exs included AP, QS, heel slides, abd slides, and SLR. Therapeutic Activity Minutes (minutes) 14 Therapeutic Activity Units 1 Therapeutic Activity Comments Supine to sit transfers Mod A. Sit to stand transfers with bed elevated 5x Min A in attempt to ambulate to chair with RW. Several cues for pt to stand fully upright and shift weight to advance legs forward. Cues for pt to put weight thru arms to help unweight legs as well, but pt unable. Hardly holds onto RW when standing. Pt unable to ambulate to chair. Mod A with sit to supine transfers. Total Therapy Minutes 23 Total Physical Therapy Units 2 Daily Note Summary Pt does participate in PT today with encouragement. Pt unable to ambulate this date, pt does give it a good try with standing up 5 different times in attempt to advance legs forward, but unable to. Pt will need rehab at [place] as she cannot care for herself.
--- NOTE | 2024-08-27 11:58 | CM.NOTE ---
Rounds made with Dr. Cleveland, no discharge today. Pt very drowsy, pt does answer questions appropriately. Pt will discharge to [facility] for skilled therapy when medically stable.
--- NOTE | 2024-08-27 14:39 | SWNOTE1 ---
Pt will go to [facility] skilled at discharge. SW faxed over updates to [facility] including physician note from today, PT/OT from today, nursing notes, vitals, labs, and med list.
[2024-08-27] MEDS: LEVOFLOXACIN 500 MG TABLET PO (15:28)
[2024-08-28] VITALS (12 sets, daily range): BP systolic 102–114; BP diastolic 67–68; PULSE 68–117; TEMP 36.6–37; O2SAT 91–94
[2024-08-28] MEDS: LEVOTHYROXINE SODIUM 75 MCG TABLET 100 MCG PO (05:47)
[2024-08-28 06:21] LABS: Basophils Percent Auto 0.4 % (0.2-2.0); Eosinophils Absolute Auto 0.2 10^3/uL (0.0-0.7); Eosinophils Percent Auto 2.1 % (0.9-7.0); Hemoglobin 10.2 g/dL (12.0-16.0); Immature Granulocytes Abs Auto 0.27 10^3/uL (0.00-0.03); Immature Granulocytes Pct Auto 3.4 % (0.0-0.5); Lymphocytes Absolute Auto 1.2 10^3/uL (1.2-3.8); Lymphocytes Percent Auto 14.6 % (20.5-60.0); Mean Corpuscular Hemoglobin 31.5 pg (26.7-34.0); Mean Corpuscular Volume 92.6 fL (81.0-99.0); Mean Platelet Volume 9.6 fL (9.5-13.5); Monocytes Absolute Auto 0.6 10^3/uL (0.3-0.8); Monocytes Percent Auto 7.3 % (1.7-12.0); Neutrophils Absolute Auto 5.7 10^3/uL (1.4-6.5); Neutrophils Percent Auto 72.2 % (43.0-75.0); Platelet Count 282 10^3/uL (150-450); Red Blood Count 3.24 10^6/uL (4.20-5.40); Red Cell Distribution Width 12.9 % (11.0-15.0)
[2024-08-28 06:44] LABS: Alanine Aminotransferase 12 U/L (14-59); Albumin Globulin Ratio 0.4; Albumin Level 1.8 g/dL (3.4-5.0); Alkaline Phosphatase 48 U/L (46-116); Anion Gap 14.7; Aspartate Amino Transferase 24 U/L (15-37); BUN Creatinine Ratio 9.1; Bilirubin Total 0.3 mg/dL (0.2-1.0); Calcium 6.1 mg/dL (8.5-10.1); Carbon Dioxide 26.3 mmol/L (21.0-32.0); Chloride 99 mmol/L (98-107); Estimated GFR (African America >60 (>=60 mL/min/1.73m^2); Estimated GFR (Non-African Ame >60 (>=60 mL/min/1.73m^2); Globulin 4.2 g/dL; Glucose 94 mg/dL (74-106); Sodium 136 mmol/L (136-145)
--- NOTE | 2024-08-28 07:51 | PM.DS1 ---
DS: Providers Provider Date of admission: 08/25/24 09:44 Primary care physician: Seeam Sutherland NP Admitting clinician: Loree Cleveland Consults: 08/23/24 11:46 Occupational Therapy Eval and Treat Routine Reason for consultation: Ambulatory dysfunction/weakness Physical Therapy Eval and Treat Routine Reason for consultation: Ambulatory dysfunction/weakness 08/25/24 07:46 Occupational Therapy Eval and Treat Routine Reason for consultation: weakness Has provider been notified: No Physical Therapy Eval and Treat Routine Reason for consultation: weakness Has provider been notified: No 08/26/24 13:29 Consult to Dietitian Routine Reason for consultation: lack of appetite, malnourished Has provider been notified: No Discharging clinician: Loree Cleveland DS: Diagnosis Discharge Diagnosis (1) Ileitis: (2) Pneumonia: Qualifiers: Laterality: bilateral Lung location: lower lobe of lung Pneumonia type: due to unspecified organism Qualified Code(s): J18.9 - Pneumonia, unspecified organism (3) Hypokalemia: (4) Hypocalcemia: (5) Nausea & vomiting: Qualifiers: Vomiting type: unspecified Qualified Code(s): R11.2 - Nausea with vomiting, unspecified (6) Hypomagnesemia: (7) TRAVIS (acute kidney injury): (8) CAD (coronary artery disease): Qualifiers: Associated angina: without angina Coronary Disease-Associated Artery/Lesion type: [place] artery [place] vs. transplanted heart: [place] heart Qualified Code(s): I25.10 - Atherosclerotic heart disease of [place] coronary artery without angina pectoris (9) Parkinson disease: Qualifiers: Dyskinesia presence: with dyskinesia Fluctuating manifestations: without fluctuating manifestations Qualified Code(s): G20.B1 - Parkinson's disease with dyskinesia, without mention of fluctuations (10) Hypothyroid: Qualifiers: Hypothyroidism type: unspecified Qualified Code(s): E03.9 - Hypothyroidism, unspecified (11) HLD (hyperlipidemia): Qualifiers: Hyperlipidemia type: unspecified Qualified Code(s): E78.5 - Hyperlipidemia, unspecified (12) Severe malnutrition: DS: Summary Hospital Course Hospital Course: 83-year-old female with history of Parkinson and recent COVID diagnosis presented to ER with 3 to 4-day history of generalized weakness, nausea with multiple episodes of vomiting and watery diarrhea. According to the patient he has poor oral intake, is barely able to keep anything down and has multiple episodes of watery diarrhea for past 3 to 4 days. She denies seeing blood in her stool. She has nocturnal diarrhea and sometimes wake up to pass stool. She denies fever, cough, shortness of breath. She denies any sick contacts. She was brought over to ER for further evaluation by her spouse who she lives with. Workup in ER revealed hypokalemia, mild acute kidney injury. Patient was admitted for intractable nausea and vomiting, watery diarrhea resulting in dehydration, acute kidney injury and hypokalemia. CT abdomen pelvis was performed that revealed possible ileitis and bilateral lower lobe infiltrates. Started patient on IV Rocephin and Flagyl for ileitis. Ordered stool for C. difficile which was negative. Patient started having more Pneumonia symptoms of cough, pleuritic chest pain so I stopped Flagyl and cipro and gave Zosyn. Patient diarrhea resolved. Stool culture today resulted with Campylobacter. She will finish 5 more days of Levaquin 500mg PO q48 hours. She will also be given potassium supplements, calcium supplements and Ensure. She will be sent to the [facility] for inpatient rehab. WBC's are normal at the time of dischage, potassium was 4.0, calcium 6.1 Status at Discharge Functional status at discharge: uses cane/walker Overall status at discharge: patient is progressing back to baseline Time Spent with Patient Time attestation: Total time spent providing and/or coordinating discharge services: Time spent: greater than 30 minutes Exam Narrative Exam Narrative: General: Patient is alert, and oriented to person, place and time Skin: no visible rashes, or ulcers Head: atraumatic, acephalic Eyes: PERRLA, no nystagmus present, conjunctiva clear, no scleral icterus Ears: normal gross auditory acuity Heart: Normal rate and rhythm, no murmurs/rubs/gallops Lungs: no audible wheezes, crackles and normal breath sounds all lung brito Abdomen: normal bowel sounds, no distension, No palpable masses, no organomegaly, no rebound/guarding/ or rigidity Musculoskeletal: no swelling bilateral lower extremities Neuro: CN II-X grossly intact Constitutional Vital Signs, click to edit/add: Last Vital Signs Temp 97.8 F 08/28/24 07:29 Pulse 93 H 10/30/24 07:29 Resp 16 08/28/24 07:29 BP 114/68 08/28/24 07:29 Pulse Ox 94 L 08/28/24 07:29 O2 Del Method Room Air 08/28/24 07:29 DS: Data Data Completed and Pending Labs on day of discharge: Labs from last 24 hours 08/28/24 05:36 WBC 8.0 RBC 3.24 L Hgb 10.2 L Hct 30.0 L MCV 92.6 MCH 31.5 MCHC 34.0 RDW 12.9 Plt Count 282 MPV 9.6 Neut % (Auto) 72.2 Lymph % (Auto) 14.6 L [place] % (Auto) 7.3 Eos % (Auto) 2.1 Baso % (Auto) 0.4 Neut # (Auto) 5.7 Lymph # (Auto) 1.2 [place] # (Auto) 0.6 Eos # (Auto) 0.2 Baso # (Auto) 0.0 Abs Immat Gran (auto) 0.27 H Imm/Tot Granulo (auto) 3.4 H Sodium 136 Potassium 4.0 Chloride 99 Carbon Dioxide 26.3 Anion Gap 14.7 BUN 7.0 Creatinine 0.77 Est GFR ( Amer) >60 Est GFR (Non-Af Amer) >60 BUN/Creatinine Ratio 9.1 Glucose 94 Calcium 6.1 L Total Bilirubin 0.3 AST 24 ALT 12 L Alkaline Phosphatase 48 Total Protein 6.0 L Albumin 1.8 L Globulin 4.2 Albumin/Globulin Ratio 0.4 Discharge Plan Discharge Disposition: Xfer SNF Condition: Fair Discharge Medications: New acetaminophen 325 mg Tablet 650 mg PO Q4H PRN (Reason: Pain 1-4) 15 Days Qty: 30 0RF calcium carbonate 600 mg calcium (1,500 mg) Tablet 600 mg PO BID 10 Days Qty: 20 0RF potassium chloride 10 mEq Tablet,Er Particles/Crystals 20 meq PO TIDWM 10 Days Qty: 60 0RF Ensure Original 0.04-1.05 gram-kcal/mL Liquid 1 ea PO BID 30 Days Qty: 60 0RF levofloxacin 500 mg tablet 500 mg PO Q48H 5 Days Qty: 3 0RF Continued oxcarbazepine 150 mg tablet 150 mg PO BID atorvastatin 20 mg tablet 20 mg PO DAILY gabapentin 300 mg capsule 600 mg PO BID pramipexole 0.25 mg tablet 0.25 mg PO TID trihexyphenidyl 2 mg tablet 2 mg PO BID Changed levothyroxine 75 mcg tablet 100 mcg PO DAILY 30 Days Qty: 30 0RF Print Language: [employer]er Instructions: Discharge to [facility] skilled Forms: Portal Instructions Discharge location: To the [facility]
[2024-08-28 08:12] LABS: Magnesium 1.8 mg/dL (1.8-2.4)
[2024-08-28] MEDS: OXcarbazepine 150 MG TABLET PO (09:28)
[2024-08-28] MEDS: ENSURE ORIGINAL 237 ML BOTTLE PO (09:28)
[2024-08-28] MEDS: HEPARIN SODIUM (PORCINE) 5,000 UNIT/ML VIAL 5000 UNIT SUBQ (09:29)
[2024-08-28] MEDS: GABAPENTIN 300 MG CAPSULE 600 MG PO (09:29)
[2024-08-28] MEDS: PRAMIPEXOLE 1 MG TABLET 0.25 MG PO (09:29)
[2024-08-28] MEDS: POTASSIUM CHLORIDE 10 MEQ ER TABLET 20 MEQ PO ×3 (09:29→16:09)
[2024-08-28] MEDS: TRIHEXYPHENIDYL HCL 2 MG TABLET PO (09:30)
[2024-08-28] MEDS: CALCIUM CARBONATE 600 MG TABLET PO (09:30)
[2024-08-28] MEDS: ATORVASTATIN CALCIUM 20 MG TABLET PO (09:30)
--- NOTE | 2024-08-28 11:14 | PT.DAILY ---
Physical Therapy Daily Note PT Daily Note/Assess Start: 08/24/24 10:36 Freq: Status: Active Protocol: Document 08/28/24 11:10 OLU (Rec: 08/28/24 11:14 OLU [id number]) Physical Therapy Daily Note/Assessment Time In/Time Out Time In 10:50 Time Out 11:00 Pain In Pain N/A Pain Out Pain N/A Subjective Subjective In BS chair upon arrival. Pt initially declines PT but finally agrees to seated ex in BS chair. Therapeutic Exercise Time Therapeutic Exercise Minutes (minutes) 5 Therapeutic Exercise Units 1 Therapeutic Exercise Treatment Therapeutic Exercise Treatment Seated bilat LE strengthening ex complete in BS chair 10x ea - needs vc for proper form. Therapeutic Activity Time Therapeutic Activity Minutes (minutes) 3 Therapeutic Activity Units 0 Therapeutic Activity Treatment Bed Mobility Ability Minimum Assist,2 Person Assist Therapeutic Activity Comments Sit>stand Tamiko+2 stand pivot and 3 retro steps to bed. Sit> supine MaxA+1. Sidelying with pillow propped under L hip to reduce pressure on bottom. Nursing present upon completion and call light is within reach. Total Physical Therapy Time Total Therapy Minutes 8 Total Physical Therapy Units 1 Summary Daily Note Summary Fair tolerance to session. Lacking motivation and easily fatigued with activity.
--- NOTE | 2024-08-28 11:19 | CM.NOTE ---
Rounds made with Dr. Cleveland. Plan for discharge today to [facility]. Valerie verbalizes understanding.
--- NOTE | 2024-08-28 11:42 | SWNOTE1 ---
Pt is ready for dc to [place] today. LAN called and set up trips for 2-2:30. LAN notified [place], nursing, and pt's of discharge time. LAN faxed over dc med rec and updated labs. LAN completed HENS yesterday. LAN took packet to med/surge floor. Pt is going to [place] skilled.
--- NOTE | 2024-08-28 12:15 | SWNOTE1 ---
Nahid called back and the room patient is going in to, the other person that is there now is not leaving until 4:00. Pt will have to come 4:45 or later. LAN called trips and the latest they can be here is 4:30pm. LAN called Nah[facility] and Raciel voiced they will figure it out and get the room cleaned. LAN let nurse and pt's know time.
[2024-08-28] MEDS: LEVOFLOXACIN 500 MG TABLET PO (15:40)
== END 2024-08-28 16:24 | DRG 193 ==
LOC: ER 11:35 → MS 14:13
PROVIDERS: Admitting Provider Internal Medicine; Emergency Provider Emergency Medicine; PCP Nurse Practitioner; Visit Provider Family Medicine
DX: J18.9 Pneumonia, unspecified organism (principal); E43 Unspecified severe protein-calorie malnutrition; A04.5 Campylobacter enteritis; N17.9 Acute kidney failure, unspecified; E86.0 Dehydration; E87.6 Hypokalemia; E83.51 Hypocalcemia; E83.42 Hypomagnesemia; G20.A1 Parkinson's disease without dyskinesia, without mention of fluctuations; I25.10 Atherosclerotic heart disease of native coronary artery without angina pectoris; E03.9 Hypothyroidism, unspecified; E78.5 Hyperlipidemia, unspecified; Z79.890 Hormone replacement therapy; Z79.899 Other long term (current) drug therapy; Z68.20 Body mass index [BMI] 20.0-20.9, adult
CPT/HCPCS: 36415; 71045; 74177; 80048; 80053; 80061; 82306; 82330; 82340; 82570; 83735; 83880; 83970; 84443; 84484; 85007; 85025; 85027; 87045; 87046; 87150; 87427; 87493; 93005; 94667; 94668; 94761; 96361; 96374; 97110; 97161; 97165; 97530; 97535; 99285; G0378; J0613; J0696; J1644; J1836; J2405; J2543; J3475; J3480; Q9967

== ENCOUNTER 2024-09-24 17:45 | Observation (INO) | payer MEDICARE, SELFPAY ==
[2024-09-24] VITALS (24 sets, daily range): BP systolic 124–137; BP diastolic 76–84; PULSE 87–263; TEMP 36.1–36.8; O2SAT 91–99; BMI 20.9; BMI 20.5
--- OUTSIDE RECORDS SUMMARY | 2024-09-24 18:06 | XMS_ITS | CCD ---
Author Organization [facility] Care Team Providers Care Cow Puncher Name Role Phone DONNA TURCIOS Unavailable Unavailable CARIE REINA Unavailable Unavailable Bean Cantu Primary Care Provider Puneet Raymundo Attending Provider Curtis Alcocer Attending Provider Pratik Tadeo Unavailable Unavailable Unavailable Giovanny, Aba Unavailable Carie Keith Unavailable Alyssa Weller Unavailable PRATIK TADEO Primary Care Physician Unavailable Unavailable MD Madhav Conrad Attending Provider Seema Sutherland Primary Care Provider [phone] Madhav Conrad Unavailable RODERICK KONG Attending Unavailable RODERICK KONG Admitting Unavailable RODERICK KONG Consulting Unavailable DR PRATIK TADEO Primary Care Unavailable GIOVANNY, ABA Attending Unavailable DR PRATIK TADEO Primary Care Unavailable GIOVANNY, ABA Consulting Unavailable GIOVANNY, ABA Admitting Unavailable GIOVANNY, ABA Attending Unavailable DR PRATIK TADEO Primary Care Unavailable GIOVANNY, ABA Consulting Unavailable GIOVANNY, ABA Admitting Unavailable AICHHOLZ, PORTABLE SAWMILL OPERATOR SEEMA Consulting Unavailable DR PRATIK TADEO Primary Care Unavailable AICHHOLZ, PORTABLE SAWMILL OPERATOR SEEMA Admitting Unavailable AICHHOLZ, PORTABLE SAWMILL OPERATOR SEEMA Attending Unavailable ZOEY, DR JAYLEEN Manzo Consulting Unavailable TURCIOS, DR DONNA Deleon Admitting Unavailable TURCIOS, DR DONNA Deleon Attending Unavailable TURCIOS, DR DONNA Deleon Consulting Unavailable AICHHOLZ, PORTABLE SAWMILL OPERATOR SEEMA Primary Care Unavailable AICHHOLZ, PORTABLE SAWMILL OPERATOR SEEMA Consulting Unavailable AICHHOLZ, PORTABLE SAWMILL OPERATOR SEEMA Primary Care Unavailable AICHHOLZ, PORTABLE SAWMILL OPERATOR SEEMA Admitting Unavailable AICHHOLZ, PORTABLE SAWMILL OPERATOR SEEMA Attending Unavailable AICHHOLZ, PORTABLE SAWMILL OPERATOR SEEMA Primary Care Unavailable GIOVANNY, ABA Attending [...] Aichholmoriah, Seema J Primary Care Unavailable Donna Turcios [...] sources) Morphine Drug Allergy 02-18-20 21 Hallucinating [facility] (7 sources) Morphine Derivatives; Translations: [Morphine Derivatives] Allergy to drug (finding) Other -[facility] y 250 DO Work Phone: (11 sources) fesoterodine Drug Allergy 03-07-20 24 dizziness/light hearded [facility] (20 sources) Morphine; Translations: [MORPHINE] Drug Allergy 01-16-20 18 hallucinations, Hallucinating, Hallucinating, hallucinations [facility] (1 source) Morphine Drug Allergy [facility] (1 source) Morphine Drug Allergy 03-09-20 21 [facility] Repository (5 sources) Fesoterodine fumarate Allergy to substance 03-07-20 [facility] Healthcare Work Phone: (5 sources) Morphine And Codeine Propensity to adverse reactions 07-25-20 23 [facility] Healthcare Medications Current Medications Medication Drug Class(es) [...] Status: Ordered biotin 1 mg chewable tablet (5 sources) Biotin 1000 MCG chewable tablet Chew. [...] mg / cholecalciferol 0.01 mg oral tablet (11 sources) Vitamin D Start: 03-07-2024 Calcium Carb-Cholecalciferol [...] day(s), # 10 cap(s), Refills(s) 0, Pharmacy: [facility] [id number], 144, cm, 09/27/23 13:10:00 EST, Height/Length Dosing, 49, kg, 09/27/23 13:10:00 EST, Weight Dosing Start Date: 11/13/23 Stop Date: 11/18/23 Status: Ordered Start: 09-27-2023 take 1 capsule by [facility] twice daily Keflex 500 mg Cap 500 mg = 1 cap(s), Oral, BID, start one day prior to procedure., # 14 cap(s), Refills(s) 0, Pharmacy: [facility] [id number], 144, cm, 09/27/23 13:10:00 EST, Height/Length Dosing, 49, kg, 09/27/23 13:10:00 EST, Weight Dosing Start Date: 09/27/23 Status: Ordered Start: 08-16-2023 take 1 capsule by [facility] twice daily Keflex 500 mg Cap 500 mg = 1 cap(s), Oral, BID, # 14 cap(s), Refills(s) 0, Pharmacy: [facility] [id number], 144, cm, 08/16/23 10:03:00 EDT, Height/Length Dosing, 49, kg, 08/16/23 10:03:00 EDT, Weight Dosing Start Date: 08/16/23 Status: Ordered Start: 05-19-2022 End: 05-29-2022 take 1 capsule by mouth twice daily Keflex 500 mg Cap 500 mg = 1 cap(s), Oral, BID, X 10 day(s), # 20 cap(s), Refills(s) 0, Pharmacy: [facility] [id number], 144, cm, 05/19/22 14:08:00 EDT, Height/Length Dosing, 49, kg, 05/11/22 11:21:00 EDT, Weight Dosing Start Date: 05/19/22 Stop Date: 05/29/22 Status: Ordered Start: 05-11-2022 take 1 capsule by mo uth twice daily Keflex 500 mg Cap 500 mg = 1 cap(s), Oral, BID, Pt. to start 3 days prior to bladder botox injections, # 14 cap(s), Refills(s) 0, Pharmacy: [facility] [id number], 144, cm, 05/11/22 11:21:00 EDT, Height/Length Dosing, 49, kg, 05/11/22 11:21:00 EDT, Weight Dosing Start Date: 05/11/22 Status: Ordered ciprofloxacin 500 mg oral tablet (3 sources) Quinolone Antimicrobial Start: 11-13-2023 Cipro 500 mg Tab 500 mg = 1 tab(s), Oral, BID, Take twice daily x5 days starting the day prior to the procedure, # 10 tab(s), Refills(s) 0, Pharmacy: [facility] [id number], 144, cm, 09/27/23 13:10:00 EST, Height/Length Dosing, 49, kg, 09/27/23 13:10:00 EST, Weight Dosing Start Date: 11/13/23 Status: Ordered diclofenac sodium 0.01 mg/mg topical gel (16 sources) Nonsteroidal Anti-inflammatory Drug Start: 03-07-2024 diclofenac sodium 1 % gel As Directed 03/07/2024 Active Start: 03-07-2024 Diclofenac Sod ium (Voltaren Arthritis Pain) 1 % gel Active 2 GM TOPICAL As Directed March 07, 2024 12:00am Voltaren 1 % as directed Externally Active folic acid 1 mg oral tablet (5 sources) folic acid (Folv ite) 1 MG [...] Active hydroxychloroquine sulfate 200 mg oral tablet (6 sources) Antimalarial, Antirheumatic Agent hydroxychloroquine (Plaquenil) 200 [...] 30 tab(s), Refills(s) 11, Pharmacy: [facility] [id number], 144, cm, 08/16/23 10:03:00 EDT, Height/Length Dosing, [...] # 90 tab(s), Refills(s) 3, Pharmacy: [id number], 144, cm, 12/27/21 11:31:00 EST, Height/Length [...] BID, # 14 cap(s), Refills(s) 0, Pharmacy: [id number], 144, cm, 05/05/21 13:13:00 EDT, Height/Length [...] 50+ Active OXcarbazepine 150 mg oral tablet (5 sources) Anti-epileptic Agent Start: 06-24-20 24 OXcarbazepine (Trileptal) 150 MG tablet Indications: Pain in both feet , Disturbance of skin sensation TAKE 1 TABLET BY MOUTH EVERY MORNING AND ONCE BEFORE BEDTIME 60 tablet 2 06/24/2024 Active polyethylene glycol 3350 50806 mg powder for oral solution (5 sources) Osmotic Laxative Start: 02-18-20 Polyethylene Glycol 3350 (Miralax) 17 gram/dose Powder Active 17 GM PO Daily February 17, 2021 12:00am microencapsulated potassium chloride 20 meq extended release oral tablet (16 sources) Start: 03-24-20 take 1 tablet by mouth every twenty-four hours Potassium Chloride ER 20 MEQ 1 tablet with food Orally Once a day for 90 day(s) February, Active Start: 03-10-2021 End: 03-07-2024 potassium chloride CR (Klor- Con M20) 20 MEQ ER tablet Daily 03/07/2024 Active pramipexole dihydrochloride 0.25 mg oral tablet (12 sources) Nonergot Dopamine Agonist Start: 07-26-2024 End: [...] (0.25 mg) before bedtime. 90 tablet 07/26/2024 Active take 1 tablet by sumi th [...] 2018 12:00am take 2 tablets by mo [facility] once daily Trihexyphenidyl HCl - 2 [...] 2021 9:56am cholecalciferol 0.025 mg oral tablet (20 sources) Vitamin D Start: 03-02-2018 End: 02-17-2021 [...] succinate 25 mg extended release oral tablet (15 sources) beta-Adrenergic Hay Start: 03-02-2018 End: 02-17-2021 [...] sources) Serotonin-3 Receptor Antagonist Start: 03-02-2018 End: 04-21-2021 take 4 mg by mouth every six hours Ondansetron Discontinued 4 MG PO Q6H 40 March 02, 2018 12:00am February 17, 2021 10:01am predniSONE 5 mg oral tablet (20 sources) Start: 02-17-2021 End: 03-07-2024 take 5 [...] Onset: 04-20-2022 07-04-2019 Episodic Acute cerebrovascular disease (5 sources) Cerebral embolism; Translations: [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] Onset: 03-20-2024 03-20-2024 Chronic Acute myocardial infarction (18 sources) Myocardial infarction; Translations: [Acute myocardial infarction due to left coronary artery occlusion] Onset: 04-06-2022 07-04-2019 Chronic Administrative/social admission (5 sources) Other reduced mobility; Translations: [Impaired mobility and activities of daily living] 04-16-2018 Episodic Calculus of urinary tract (13 sources) Kidney stone 04-27-2020 Episodic Coronary atherosclerosis and other heart disease (20 sources) Coronary arteriosclerosis; Translations: [Atherosclerotic heart disease of enterprise coronary artery without angina pectoris] Onset: 03-24-2022 04-16-2018 Chronic Deficiency and other anemia (5 sources) Anemia; Translations: [Anemia, unspecified] 04-16-2018 Episodic Disorders of lipid metabolism (20 sources) Hyperlipidemia; Translations: [Hyperlipidemia, unspecified] Onset: 03-24-2022 04-16-2018 Chronic E Codes: Fall (1 source) Fall Onset: 07-18-2024 Essential hypertension (12 sources) Hypertensive disorder; Translations: [Essential (primary) hypertension] Onset: 04-06-2022 04-16-2018 Chronic Fracture of upper limb (5 sources) Nondisplaced fracture of lateral end of [...] incontinence] Onset: 05-11-2022 Chronic Malaise and fatigue (5 sources) Chronic fatigue syndrome; Translations: [Chronic fatigue syndrome] Onset: 04-06-2022 03-11-2024 Chronic Miscellaneous mental health disorders (5 sources) Primary insomnia; Translations: [Primary insomnia] Onset: 03-11-2024 03-11-2024 Chronic Mood disorders (7 sources) Mild major depression, single episode; Translations: [...] colonic polyps] Episodic Other connective tissue disease (18 sources) History of total knee arthroplasty; Translations: [...] bladder] Onset: 08-16-2023 Chronic Other endocrine disorders (18 sources) Idiopathic hypoparathyroidism; Translations: [Idiopathic hypoparathyroidism] Onset: 04-06-2022 03-07-2024 Chronic Other endocrine disorders (3 sources) Idiopathic hypoparathyroidism; Translations: [IDIOPATHIC HYPOPARATHYROIDISM] Onset: 09-02-2021 Resolved: 03-24-2022 Chronic Other endocrine disorders (5 sources) Hyperparathyroidism; Translations: [Hyperparathyroidism, unspecified] Onset: 04-06-2022 [...] system and abdomen Episodic Other gastrointestinal disorders (6 sources) Diarrhea of presumed infectious origin; Translations: [...] Episodic Other nutritional; endocrine; and metabolic disorders (17 sources) Hypocalcemia; Translations: [Hypocalcemia] Onset: 06-01-2012 Chronic Other nutritional; endocrine; and metabolic disorders (16 sources) Hypomagnesemia; Translations: [Hypomagnesemia] Onset: 03-11-2024 03-07-2024 [...] Chronic Other nutritional; endocrine; and metabolic disorders (5 sources) Hypercalcemia; Translations: [Hypercalcemia] Onset: 03-11-2024 03-11-2024 Chronic Other nutritional; endocrine; and metabolic disorders (10 sources) Overweight; Translations: [Overweight] Episodic Other upper respiratory disease (5 sources) Chronic rhinitis; Translations: [Chronic rhinitis] Onset: 04-06-2022 03-11-2024 Chronic Paralysis (7 sources) Right hemiparesis; Translations: [Hemiplegia, unspecified affecting right dominant side] Onset: 03-20-2024 03-20-2024 Chronic Parkinson's disease (3 sources) Parkinson's disease; Translations: [Parkinson's disease without dyskinesia, without mention of fluctuations (Multi)] Onset: 01-29-2018 Parkinson`s disease (15 sources) Parkinson's disease; Translations: [Paralysis agitans] Onset: 03-24-2022 03-11-2024 Chronic Residual codes; unclassified (5 sources) Obstructive sleep apnea syndrome; Translations: [Obstructive [...] 07-18-2024 Episodic Rheumatoid arthritis and related disease (16 sources) Rheumatoid arthritis; Translations: [Rheumatoid arthritis] Onset: 08-18-2023 Chronic Thyroid disorders (20 sources) Hypothyroidism; Translations: [Hypothyroidism, unspecified] Onset: 07-16-2022 04-16-2018 Chronic Unclassified (2 sources) Chest pain, unspecified / R07.9(ICD-9) Onset: 01-29-2018 Unclassified (1 source) Athscl heart disease of enterprise coronary artery w/o ang pctrs / I25.10(ICD-9) [...] Date Documented Da te Episodic/Chronic Abdominal hernia (5 sources) Disorder of abdominal wall; Translations: [Ventral hernia without obstruction or gangrene] Onset: 06-20-2013 03-11-2024 Episodic Allergic reactions (5 sources) Exogenous dermatitis; Translations: [Unspecified contact dermatitis due to other agents] Onset: 04-06-2022 03-11-2024 Episodic Conditions associated with dizziness or vertigo (9 sources) Dizziness and giddiness; Translations: [Dizziness] Onset: 07-11-2022 Episodic Coronary atherosclerosis and other heart disease (20 sources) Past history of procedure; Translations: [Percutaneous transluminal coronary angioplasty status] Onset: 06-16-2022 03-08-2021 Episodic Fluid and electrolyte disorders (17 sources) Hypokalemia; Translations: [Hypokalemia] Onset: 03-23-2022 Resolved: 03-24-2022 Episodic Genitourinary symptoms and ill-defined conditions (20 sources) Microscopic hematuria; Translations: [Asymptomatic microscopic hematuria] Onset: 05-11-2022 Episodic Inflammatory diseases of female pelvic organs (5 sources) Chronic vaginitis; Translations: [Subacute and chronic vaginitis] Onset: 04-06-2022 03-11-2024 Episodic Neoplasms of unspecified nature or uncertain behavior (1 source) Neoplasm of unspecified behavior of bone, soft tissue, and skin Onset: 10-18-2021 Resolved: 10-18-2021 Episodic Other aftercare (1 source) intermediate (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 of aspirin; Translations: [LABOR LAW PROFESSOR CURRENT USE OF ASPIRIN] Onset: 03-24-2022 Episodic Other aftercare (1 source) Other vermin exterminator (current) drug therapy; Translations: [OTH LABOR LAW PROFESSOR CURRENT DRUG THERAPY] Onset: 03-24-2022 Episodic Other circulatory disease (10 sources) History of cerebrovascular accident; Translations: [Personal history of transient ischemic attack (TIA), and cerebral infarction without residual deficits] Onset: 03-11-2024 04-16-2018 Episodic Other circulatory disease (5 sources) Orthostatic hypotension; Translations: [Orthostatic hypotension] Onset: 03-20-2024 03-20-2024 Episodic Other connective tissue disease (5 sources) Pain in both feet; Translations: [Pain in right foot] Onset: 03-20-2024 03-20-2024 Episodic Other gastrointestinal disorders (15 sources) Constipation; Translations: [Constipation, unspecified] Onset: 04-06-2022 03-11-2024 Episodic Other gastrointestinal disorders (1 source) Other constipation; Translations: [OTHER CONSTIPATION] Onset: 04-22-2022 Episodic Other gastrointestinal disorders (5 sources) Dysphagia; Translations: [Dysphagia, unspecified] Onset: 04-06-2022 03-11-2024 Episodic Other nervous system disorders (10 sources) Tremor; Translations: [Tremor, unspecified] Onset: 03-11-2024 04-16-2018 Episodic Other nervous system disorders (5 sources) Skin sensation disturbance; Translations: [Unspecified disturbances of skin sensation] Onset: 03-20-2024 03-20-2024 Episodic Other non-epithelial cancer of skin (5 sources) Squamous cell carcinoma of upper extremity; Translations: [Squamous cell carcinoma of skin of right upper limb, including shoulder] Onset: 04-06-2022 03-11-2024 Episodic Other screening for suspected conditions (not mental disorders or infectious disease) (5 sources) Mammography abnormal; Translations: [Other abnormal and inconclusive findings on diagnostic imaging of breast] Onset: 04-06-2022 03-11-2024 Episodic Residual codes; unclassified (15 sources) Patient encounter status; Translations: [Encounter for prophylactic measures, unspecified] Onset: 03-11-2024 04-16-2018 Episodic Residual codes; unclassified (4 sources) Early satiety; Translations: [Early satiety] Onset: 08-02-2022 Episodic Unclassified (7 sources) Never smoked tobacco; Translations: [Never a smoker] Results Test Name Value Interpretation Reference Range Facility E COLI SHIGA TOXIN EIAon E COLI SHIGA TOXIN EIA E coli Shiga Toxin EIA [facility] E COLI SHIGA TOXIN EIA Negative [facility] E COLI SHIGA TOXIN EIA Performed at: [facility] E COLI SHIGA TOXIN EIA [address] [place], [place] [id number] [facility] E COLI SHIGA TOXIN EIA Deliverer Food: Conrado Gates PhD, Phone: [phone] [facility] CT BRAIN WO CONTon CT BRAIN WO [...] Santo MD on 07/18/2024 10:01 PM Normal [facility] CT CERVICAL SPINE WO CONTon 07-18-2024 [...] Alfonso MD on 07/18/2024 10:01 PM Normal [facility] XR ELBOW RT MIN 3 VWSon 06-30 [...] Alfonso MD on 07/18/2024 10:05 PM Normal [facility] XR SHOULDER RT MIN 2 VWSon [...] Alfonso MD on 07/18/2024 10:02 PM Normal [facility] Lab Reportson 04-11-2024 Lab Reports [id number] F Normal [facility] Ambulatory Visit Summaryon 0 04-10-2024 Ambulatory Visit Summary NARCISO VELASQUEZ :1940 Visit Date:04/10/2024 Ambulatory Visit Instructions Your Diagnosis Urge incontinence Incontinence without sensory awareness OAB (overactive bladder) Recurrent UTI Your Care Team Attending Physician - TRINA WATSON, Med Hilario Primary Care Physician - PRATIK TADEO MD [...] Follow-Up Appointments Monday 1:00 PM EST With: TRINA WATSON, Med Hilario Where: [facility] Patient Educationon 04-10-20 Patient Education [...] stimulation). ? For women, using a medical billing associate to prevent urine leaks. This is a [...] urine. ? (more content not included)... [facility] Urology Office/Clinic Noteon 04-10-2024 Urology Office/Clinic Note [...] with voice recognition artificial intelligence software, specifically LiveSafe, BumpTop and or Pogoseat. Substitutions may have occurred due to the [...] be recommended. Follow-up With When Contact Information Med JENKINS MD, URL [address] [facility] [address] [place] [address]- Additional Instructions: 6 mos Patient Education Urinary [...] Urgency of urinati (more content not included)... [facility] Comment on above: Result Comment: Elec tronically Signed By: Med JENKINS MD\.br\Date and Time Signed: 04/10/24 10:27 EDT\.br\Electronically Co-Signed By: Jenny Luna\.br\Date and Time Co-Signed: 04/10/24 10:25 EDT Consent for Procedure/Surger yon 03-13-2024 Consent for Procedure/Surgery [id number]#1.00TIF F [facility] Consent for Procedure/Surgery [id number]#[id number] FF [facility] Erythrocyte distribution wid th Auto (RBC) [Ratio]on 02-27-2024 Erythrocyte distribution width (RBC) [Ratio] 13.0 % 11.0-15.0 [facility] Estimated glomerular filtrat ion rate (GFR) non- Americanon 02-27-2024 GFR/1.73 sq M.predicted among non-blacks MDRD (S/P/Bld) [Vol rate/Area] 57 mL/min/{1.73_m2} >=60 [facility] Hematocrit Auto (Bld) [Volum e fraction]on 02-27-2024 Hematocrit (Bld) [Volume fraction] 37.0 % 36.0-48.0 [facility] Hemoglobin [Mass/volume] in Bloodon 02-27-2024 Hemoglobin (Bld) [Mass/Vol] 12.1 g/dL 12.0-16.0 [facility] Laboratory - Chemistry and C hemistry - challengeon 02-27-2024 Albumin [Mass/Vol] 3.5 g/dL 3.4-5.0 [facility] Calcium [Mass/Vol] 9.3 mg/dL 8.5-10.1 [facility] Chloride [Moles/Vol] 104 mmol/L 98-107 [facility] CO2 [Moles/Vol] 29.1 mmol/L 21.0-32.0 [facility] Creatinine [Mass/Vol] 0.94 mg/dL 0.55-1.02 [facility] GFR/1.73 sq M.predicted MDRD (S/P/Bld) [Vol rate/Area] mL/min/{1.73_m2} >=60 [facility] Glucose [Mass/Vol] 126 mg/dL 74-106 [facility] Magnesium [Mass/Vol] 1.7 mg/dL 1.8-2.4 [facility] Potassium [Moles/Vol] 4.1 mmol/L 3.5-5.1 [facility] Sodium [Moles/Vol] 141 mmol/L 136-145 [facility] Urea nitrogen [Mass/Vol] 28.0 mg/dL 7.0-18.0 [facility] Urea nitrogen/Creatinine [Mass ratio] 29.8 mg/mg [facility] Leukocytes [#/volume] correc db for nucleated erythrocytes in Blood by Automated counon 02-27-2024 WBC corrected for nucl RBC Auto (Bld) [#/Vol] 9.9 10 3/uL 4.0-11.0 [facility] MCH Auto (RBC) [Entitic mass ]on 02-27-2024 MCH (RBC) [Entitic mass] 32.6 pg 26.7-34.0 [facility] MCHC Auto (RBC) [Mass/Vol]on 02-27-2024 MCHC (RBC) [Mass/Vol] 32.7 g/dL 29.9-35.2 [facility] MCV Auto (RBC) [Entitic vol] on 02-27-2024 MCV (RBC) [Entitic vol] 99.7 fL 81.0-99.0 [facility] No Panel Informationon 02-26 25-Hydroxy Vitamin D Total 34.4 ng/mL [facility] Comment on above: <20 ng/mL Vit D defi cient20-<30 ng/mL Vit D [id number] ng/mL Vit D sufficient>100 ng/mL Potential Toxicity Parathyroid Hormone (Intact) 3 pg/mL 15-65 [facility] Comment on above: Performed at: [address] [id number] Director: Conrado Gates PhD, Phone: [phone] Phosphorus Level 3.6 mg/dL 2.6-4.7 [facility] Platelet mean volume Auto (B ld) [Entitic vol]on 02-27-2024 Platelet mean volume (Bld) [Entitic vol] 9.4 fL 9.5-13.5 [facility] Platelets Auto (Bld) [#/Vol] on 02-27-2024 Platelets (Bld) [#/Vol] 196 10 3/uL 150-450 [facility] RBC Auto (Bld) [#/Vol]on RBC (Bld) [#/Vol] 3.71 10 6/uL 4.20-5.40 [facility] Serum or plasma anion gap de terminationon 02-27-2024 Anion gap [Moles/Vol] 12.0 mmol/L [facility] Consent for Treatmenton 01-29 Consent for Treatment [id number] FF Normal [facility] Inpatient Patient Summaryon 02-26-2024 Inpatient Patient Summary [place] [id number] Clinical Summary Person Information Name: NARCISO VELASQUEZ Age: 83 Years : 1940 Sex: Female PCP: PRATIK TADEO MD Marital Status: Race: White Ethnicity: Non- or Language: Trinidadian Visit Id: Visit Reason: URINARY INCONTINENCE Speciality: Acuity: Enc Type: Outpatient Med Service: Surgery Arrival: 02/26/2024 12:39:14 Discharge: Dispo Type: Address: [address] [place] [id number] Provider Notes: Diagnosis: Problems Active Incontinence without sensory awareness Recurrent UTI Incomplete bladder emptying Stress incontinence UTI (urinary tract infection) Urinary retention UTI symptoms Overactive bladder Aspirin long-term use Weak urine stream Weak urinary stream Hx of vermin exterminator 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 thinners Mixed incontinence [...] Follow up: With: Address: When: Med JENKINS Joe [facility], [address], [place] [phone] [facility] (1) Within 6 weeks Comments: Call for followup appointment, with a bladder scan at that visit to check for bladder emptying. Patient Education Information: EU - Cystoscopy with Botox Injection Discharge Instructions (Custom) [facility] IntraOperative Documentson 0 02-26-2024 IntraOperative Documents [id number] FF [facility] Main OR Intraoperative Recor don 02-26-2024 Main OR Intraoperative Record IntraOp Document Type FTURO Summary Primary Physician: Med JENKINS MD Finalized Date/Time: 02/26/24 13:43:34 Pt. Name: NARCISO VELASQUEZ/Sex: 1940 Female Med Rec #: [id number] Physician: Med JENKINS MD Financial #: [id number] Pt. Type: O Room/Bed: / Admit/Disch: 02/26/24 12:39:14 - Institution: Case Times FTURO Entry 1 Patient Times In Room 02/26/24 13:30:00 Out Room 02/26/24 13:51:00 Procedure Times Start 02/26/24 13:33:00 Stop 02/26/24 13:46:00 Anesthesia Times Last Modified By: Sabrina RN, Patricia VOGEL 02/26/24 13:43:23 Case Attendance FTURO Entry 1 Entry 2 Entry 3 Case Attendee Med JENKINS MD, RN, CNOR, Krishna Moctezuma Role Performed Surgeon - Primary Vp Clinical - Primary Scrub - Primary Time In 02/26/24 13:30:00 02/26/24 13:30:00 02/26/24 13:30:00 Time Out 02/26/24 13:51:00 02/26/24 13:51:00 02/26/24 13:51:00 Procedure CYSTOSCOPY LOCAL BOTOX CYSTOSCOPY LOCAL BOTOX CYSTOSCOPY LOCAL BOTOX INJECTION(.) INJECTION(.) INJECTION(.) Comments Last Modified By: Sabrina RN, CNOR, Sabrina RN, MEEOR, Sabrina RN, MEEOR, Patricia 02/26/24 Patricia 02/26/24 Patricia 02/26/24 13:43:24 13:43:24 13:43:24 Surgical Procedures FTURO Entry 1 Procedure Description Procedure CYSTOSCOPY LOCAL BOTOX Modifiers . INJECTION Surgeon Description CYSTO 150 UNITS BOTOX Primary Procedure Yes Primary Surgeon Med JENKINS MD Start 02/26/24 13:33:00 Stop 02/26/24 13:46:00 Anesthesia Type Local Surgical Service Urology Wound Class 2 - Clean-Contaminated Last Modified By: Sabrina PETERS, MEEOR, Patricia 02/26/24 13:43:25 General Comments: botox 100 units out date03/24 lot [id number] botox 50 units outdate 12/25 lot [id number] General Case Data FTURO Pre-Care Text: Classifies [...] JASPREET Bennett RN, Ruthann 02/26/24 13:43 [facility] Main OR Preoperative Recordo n 02-26-2024 Main OR Preoperative Record Holding Area Document Type FTURO Summary Primary Physician: Med JENKINS MD Finalized Date/Time: 02/26/24 13:13:19 Pt. Name: RONNARCISO/Sex: 1940 Female Med Rec #: [id number] Physician: Med JENKINS MD Financial #: [id number] Pt. Type: O Room/Bed: / Admit/Disch: 02/26/24 [...] By: Dorie Logan RN 02/26/24 13:13 [facility] Operative Reporton Operative Report Patient: STEPHANIA VELASQUEZ Age: 83 years Sex: Female : 1940 Associated Diagnoses: None Author: Med JENKINS MD Procedure Operative Information Details: Date/ Time: 02/26/2024 13:46:00. Pre-Op Dx: Overactive bladder (YSK63-YC N32.81, Working, Medical), Urgency incontinence (XZT13-ZH N39.41, Working, Medical). Post-Op Dx: Same. Anesthesia [...] Follow up arranged, F/U six weeks. [facility] Comment on above: Result Comment: Elec tronically Signed By: Med JENKINS MD\.hector\Date and Time Signed: 02/26/24 13:51 EDT Outpatient Surgery Discharge Instructionon 02-26-2024 Outpatient Surgery Discharge Instruction [id number] FF [facility] Outpatient Surgery Discharge Instruction [address] [address] Patient Discharge Instructions PERSON INFORMATION Name: NARCISO VELASQUEZ Date of : 1940 Current Date: 02/26/2024 13:46:21 PHYSICIANS Admitting Physician: Med JENKINS MD Comment: Discharge Diagnosis: RONNARCISO has been given the following list of follow-up instructions, prescriptions, and patient education materials: IF UNABLE TO CONTACT YOUR PHYSICIAN AND YOU FEEL IT IS AN EMERGENCY, GO TO THE NEAREST EMERGENCY ROOM OR CALL 911 Follow up: With: Address: When: Med JENKINS [address], [address], [place] [address] [facility] (1) Within 6 weeks Comments: Call for [...] to serve you. Thank you for choosing [facility] C Urineon 11-16-2023 Bacteria identified Cx Nom [...] Locations R1: This test was performed at: [facility], [address] [place] [address], [address] , , [facility] Comment on above: Performed By: #### 2 [id number] ####[place] [address] [place] [address] Consent for Treatmenton 10-30 Consent for Treatment [id number] F [facility] Inpatient Patient Summaryon 11-13-2023 Inpatient Patient Summary [place] [address] Clinical Summary Person Information Name: NARCISO VELASQUEZ Age: 82 Years : 1940 Sex: Female PCP: PRATIK TADEO MD Marital Status: Race: White Ethnicity: Non- or Language: Trinidadian Visit Id: Visit Reason: URINARY INCONTINENCE Speciality: Acuity: Enc Type: Outpatient Med Service: Surgery Arrival: 11/13/2023 13:31:33 Discharge: Dispo Type: Address: [address] [place] [phone] Provider Notes: Diagnosis: Problems Active Incontinence without sensory awareness Recurrent UTI Incomplete bladder emptying Stress incontinence UTI (urinary tract infection) Urinary retention UTI symptoms Overactive bladder Aspirin long-term use Weak urine stream Weak urinary stream 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 My central scheduler will call you to get you back on the books for the Botox injection. Patient Education Information: Franc[facility] Main OR Preoperative Recordo n 11-13-2023 Main OR Preoperative Record Holding Area Document Type FTURO Summary Primary Physician: Finalized Date/Time: 11/13/23 16:40:45 Pt. Name: NARCISO VELASQUEZ/Sex: 1940 Female Med Rec #: [id number] Physician: Med JENKINS MD Financial #: [id number] Pt. Type: O Room/Bed: / Admit/Disch: 11/13/23 13:31:33 - Institution: Case Times Holding FTURO Pre-Care Text: Verifies consent for planned procedure, identifies individual values and wishes concerning care, includes family members in perioperative teaching Secures patient's records' belongings, and valuables, maintains patient's dignity and privacy, and maintains patient confidentiality Entry 1 In Holding 11/13/23 14:30:00 Outcomes Met? Yes Last Modified By: Sabrina PETERS, MEEPatricia CANCINO 11/13/23 14:38:20 Post-Care Text: The patient participates [...] and he said they would call her triage technician right away [facility]. Finalized By: JASPREET Bennett RN, Ruthann Document Signatures Signed By: JASPREET Bennett RN, Ruthann 11/13/23 14:43 JASPREET Bennett RN, Ruthann 11/13/23 14:43 JASPREET Bnenett RN, Ruthann 11/13/23 16:40 [facility] Outpatient Surgery Discharge Instructionon 11-13-2023 Outpatient Surgery Discharge Instruction [address] [address] Patient Discharge Instructions PERSON INFORMATION [...] Follow up: With: Address: When: Med JENKINS [address] [place] [address], [address], [place] [phone] Business (1) Comments: As you know we [...] locally and the cranberry is self-explanatory. My central scheduler will call you to get you back on the books for the Botox injection. Comment: PATIENT EDUCATION INFORMATION Instructions: RON Haley PATRICIA A, have received the attached patient education materials/instructions and have verbalized understanding: May we do a follow up call? Yes No I was present when discharge instructions were given Patient Signature Date Clinican/Nurse Signature Date You may receive a survey from [employer] asking you to rate your care experience. Your feedback is important and will help us understand what we do well and how we can improve the quality of care we provide to you, your loved ones and our community. It?s an honor to serve you. Thank you for choosing [facility] Patient Educationon 11-13-19 Patient Education [facility] Progress Note-Physicianon Progress Note-Physician Patient: NARCISO VELASQUEZ [...] procedure., # 14 cap(s), Refills(s) 0, Pharmacy: [facility] [id number], 144, cm, 09/27/23 13:10:00 EST, Height/Length Dosing, [...] All Problems Kidney stone / SNOMED CT 343440161 / Confirmed Incontinence without sensory awareness / SNOMED CT 7511070711 / Confirmed Weak urinary stream / SNOMED CT 7663296454 / Confirmed Urge incontinence of urine / SNOMED CT 195556066 / Confirmed Flank pain / SNOMED CT 738320696 / Confirmed Myocardial infarction / SNOMED CT 05913639 / Confirmed Nocturia / SNOMED CT 537806441 / Confirmed Urinary urgency / SNOMED CT 582695202 / Confirmed Hx of assisted 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 thinners / SNOMED CT 741078542 / Confirmed Urgency of urination / SNOMED CT 250677354 / Confirmed Urge incontinence / SNOMED CT 307743854 / Confirmed Dysuria / SNOMED CT 89532039 / Confirmed Asymptomatic microscopic hematuria / SNOMED CT 9120924441 / Confirmed Mixed incontinence / SNOMED CT 63564957 / Confirmed Frequency of urination / SNOMED CT 647020843 / Confirmed Weak urine stream / SNOMED CT 027313163 / Confirmed OAB (overactive bladder) / SNOMED CT 6567418164 / Confirmed Aspirin long-term use / SNOMED CT 0292013912 / Confirmed Overactive bladder / SNOMED CT 5582705503 / Confirmed UTI symptoms / SNOMED CT 525551553 / Confirmed Urinary retention / SNOMED CT 918153567 / Confirmed UTI (urinary tract infection) / SNOMED CT 927488741 / Confirmed Stress incontinence / SNOMED CT 347283746 / Confirmed Incomplete bladder emptying / SNOMED CT 723985313 / Confirmed Recurrent UTI / SNOMED CT 194503239 / Confirmed Incontinence without sensory awareness / SNOMED CT 3004036702 / Confirmed, Active Problems (26) Aspirin long-term [...] Plan Assessment and Plan: Diagnosis: Acute UTI (AAZ05-YR N39.0, Working, Medical), Mixed incontinence urge and stress (DUE68-OI N39.46, Working, Medical), Overactive bladder (RWJ01-BI N32.81, Working, Medical). Additional Plan of Care and/or Course of Treatment: Additional Plan of Care and/or Course of Treatment: Discussed extensively with the patient and her . Due to the presence of what appears to be an active urinary tract infection, have to cancel the B (more content not included)... [facility] Comment on above: Result Comment: Elec tronically Signed By: Med JENKINS MD\.br\Date and Time Signed: 11/13/23 14:46 EST Ambulatory Visit Summaryon 1 11-27-2022 Ambulatory Visit Summary NARCISO VELASQUEZ :1940 Visit Date:09/27/2023 Ambulatory Visit Instructions Your Diagnosis Urge incontinence Incontinence without sensory awareness OAB (overactive bladder) Recurrent UTI Tests Performed Urnls Dip Stick Auto w/o Microscopy POC 65533 Your Care Team Attending Physician - Med [...] with TRINA WATSON, ARELI Ramirez When: Where: [facility] [address] [place] [address]- Medications What How Much When Instructions Changed cephalexin (Keflex 500 mg Cap) 1 Capsules By Mouth 2 times a day start one day prior to procedure. Pickup at [facility] [id number] Unchanged acetaminophen Contact prescribing physician if questions [...] physician if questions or concerns Pharmacy Information [facility] [id number]: [address] [place], [place] [phone] What How Much When Comments Stop Taking methenamine (methenamine hippurate 1 g oral tablet) 0.5 Tablets By Mouth Every day Test Results Urnls Dip Stick Auto w/o Microscopy POC 78306 (09/27/2023) POC Test Comments - Pt. was [...] urethra blocke (more content not included)... [facility] Patient Educationon 09-27-20 23 Patient Education Urology [...] stimulation). ? For women, using a medical billing associate to prevent urine leaks. This is a [...] urine. ? (more content not included)... [facility] Urology Office/Clinic Noteon 09-27-2023 Urology Office/Clinic Note [...] with voice recognition artificial intelligence software, specifically LiveSafe, BumpTop and or Pogoseat. Substitutions may have occurred due to the [...] Information TRINA WATSON, Med Hilario, URL [address] [address]- Additional Instructions: Schedule botox 150 units Patient Education Urinary Incontinence I, Jenny Luna, personally scribed for Dr. Jenkins on 09/27/2023 13:17:45. . Documentation recorded by the guanakitoibe, Jenny Luna, accurately reflects the services(s) I performed and decisions made by me. Authenticated by Dr. Jenkins on 09/27/2023 13:21:04. Problem List/Past Medical History Ongoing Aspirin l (more content not included)... [facility] Comment on above: Result Comment: Elec tronically [...] 08/16/2023 13:46 EDT FREE TEXT SOURCE: Med JENKINS MD, MD, Med Hilario FINAL REPORTS Final Report [...] Locations R1: This test was performed at: [facility], [address] [place] [address], [address]- , , [facility] Comment on above: Performed By: #### 2 [id number] #### [facility] [address] [place] [address] Ambulatory Visit Summaryon 1 Ambulatory Visit Summary NARCISO VELASQUEZ :1940 Visit Date:08/16/2023 Ambulatory Visit Instructions Your Diagnosis Urge incontinence OAB (overactive bladder) Recurrent UTI Tests Performed Urnls Dip Stick Auto w/o Microscopy POC 48[address] Your Care Team Attending Physician - TRINA WATSON, Med Hilario Primary Care Physician - CARLYLE WATSON, PRATIK Referring Physician - Med JENKINS MD This [...] Follow-Up Appointments Monday 1:00 PM EST With: TRINA WATSON, Med Hilario Where: [facility] Patient Educationon 08-16-20 Patient Education Obstetrics and Gynecology Urinary Tract [...] this condition includes: ? Antibiotic medicine. ? Lrzv-zax-svxikhj medicines to treat discomfort. ? Drinking enough [...] these instructions at home: Medicines ? Take tyjn-bkg-fyutild and prescription medicines only as told by [...] Revie (more content not included)... [facility] Urology Office/Clinic Noteon 08-16-2023 Urology Office/Clinic [...] with voice recognition artificial intelligence software, specifically LiveSafe, BumpTop and or Pogoseat. Substitutions may have occurred due to the [...] at next visit -Check with [facility] [place] regarding incontinence supplies 1a. Current UTI. 2. [...] 6 weeks. Follow-up With When Contact Information Med JENKINS MD, URL [address] [place], [place] [phone]- Additional Instructions: 6 wks since starting Methenamine Patient Education Urinary Tract Infection, Adult I, Jenny Luna, personally scribed for Dr. Jenkins on 08/16/2023 [...] of urin (more content not included)... [facility] Comment on above: Result Comment: [...] rheumatology locally, currently stable Donna Turcios MD, [facility] Surgical History Problems History of Angioplasty [...] negative for complaint. Vitals Vital Signs Recorded: 19Ngo3330 10:40AM Heart Rate60, L Radial Xucctjde357, LUE, Sitting Tbxkbkrem57, LUE, Sitting Height4 ft 10 in Qvanuo958 lb BMI Tuvpyerzuc05.11 kg/m2 BSA Calculated1.36 Tobacco Useb) No Falls [...] Jul 20 2023 12:36PM EST (Author) [facility] Tobacco Screening.on 023 Fall risk assessment a) No falls within the last year [facility] 250 DO Work Phone: Tobacco use status CPHS b) No [facility] 250 DO Work Phone: XR calcaneus BIon 07-05-2023 XR calcaneus BI [facility] Main [place] [address] [place] [address] XRay Report Signed Patient: Narciso Velasquez MR#: [id number] : 1940 Acct:[id number] Age/Sex: 82 / F ADM Date: 07/05/23 Loc: ICXD Room: Type: [facility] Attending Dr: Curtis Alcocer MD Copies to: Curtis Alcocer MD Ordering Provider: Curtis Alcocer MD Date of Service: 07/05/23 XR/XR foot BI 2V: BENJIE HEAL/FOOT PAIN ([id number]) XR/XR calcaneus BI: FOOT/HEAL PAIN CLINICAL DATA: [...] Zuly Leon M.D.07/05/2023 5:55 PM Dictation Location: [place] [address] Transcribed By: [facility] 07/05/231754 Dictated By: Zuly Leon MD 07/05/231752 Signed By: 07/05/231754 [facility] Lab Reportson 06-12-2023 Lab Reports [id number]: 127 [facility] Lab Reports [id number]: 127 [facility] Lab Reports [id number]: 127 [facility] Lab Reportson 06-10-2023 Lab Reports [id number]: 127 [facility] Consent for Procedure/Surger yon 05-11-2023 Consent for Procedure/Surgery [id number]#1.00CD :127 [facility] Consent for Treatmenton 04-29 Consent for Treatment [id number]#1.00CD: 127 [facility] Inpatient Patient Summaryon 05-11-2023 Inpatient Patient Summary [place] [address] Clinical Summary Person Information Name: NARCISO VELASQUEZ Age: 82 Years : 1940 Sex: Female PCP: PRATIK TADEO MD Marital Status: Race: White Ethnicity: Non- or Language: Trinidadian Visit Id: Visit Reason: URINERY INCONTINENCE Speciality: Acuity: Enc Type: Outpatient Med Service: Surgery Arrival: 05/11/2023 07:16:35 Discharge: Dispo Type: Address: [address] [place] [phone] Provider Notes: Diagnosis: Problems Active Incomplete bladder emptying Stress incontinence UTI (urinary tract infection) Urinary retention UTI symptoms Overactive bladder Aspirin long-term use Weak urine stream Weak urinary stream 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 Patient Education Information: EU - Cystoscopy with Botox Injection Discharge Instructions (Custom) [facility] IntraOperative Documentson 0 05-11-2023 IntraOperative Documents [id number] :127 [facility] Main OR Intraoperative Recor don 05-11-2023 Main OR Intraoperative Record IntraOp Document Type FTURO Summary Primary Physician: Med JENKINS MD Finalized Date/Time: 05/11/23 08:07:27 Pt. Name: NARCISO VELASQUEZ Derrick Tellez./Sex: 1940 Female Med Rec #: [id number] Physician: Med JENKINS MD Financial #: [id number] Pt. Type: O Room/Bed: / Admit/Disch: 05/11/23 07:16:35 - Institution: Case Times FTURO Entry 1 Patient Times In Room 05/11/23 07:54:00 Out Room 05/11/23 08:04:00 Procedure Times Start 05/11/23 07:56:00 Stop 05/11/23 08:01:00 Anesthesia Times Last Modified By: Heather Randhawa 05/11/23 08:07:10 Case Attendance FTURO Entry 1 Entry 2 Entry 3 Case Attendee Med JENKINS MD, Kelsie E Troike, Kendall R Role Performed Surgeon - Primary Vp Clinical - Primary Scrub - Primary Time In [...] Yes Primary Surgeon Med JENKINS MD Start 05/11/23 07:56:00 Stop 05/11/23 08:01:00 Anesthesia Type Local Surgical Service Urology Wound Class 2 - Clean-Contaminated Last Modified By: Heather Randhawa 05/11/23 08:07:16 General Comments: botox 100 units, lot: [id number] exp: General Case Data FTURO Pre-Care Text: [...] Position Verified Availability Equipment, Medication Time Out TRINA WATSON, Med Hilario, Verified (If Participants Heather Randhawa, Applicable) Krishna [...] 05/11/23 08:07 Heather Randhawa 05/11/23 08:07 [facility] Main OR Preoperative Recordo n 05-11-2023 Main OR Preoperative Record Holding Area Document Type FTURO Summary Primary Physician: Med JENKINS MD Finalized Date/Time: 05/11/23 07:53:38 Pt. Name: NARCISO VELASQUEZ Derrick WeberB./Sex: 1940 Female Med Rec #: [id number] Physician: Med JENKINS MD Financial #: [id number] Pt. Type: O Room/Bed: / Admit/Disch: 05/11/23 [...] 07:36 Dorie Logan RN 05/11/23 07:53 [facility] Operative Reporton Operative Report Patient: STEPHANIA VELASQUEZ [...] months with bladder scan PVR. . [facility] Comment on above: Result Comment: Elec tronically Signed By: Med JENKINS MD\.br\Date and Time Signed: 05/11/23 08:03 EDT Outpatient Surgery Discharge Instructionon 05-11-2023 Outpatient Surgery Discharge Instruction [address] [address] Patient Discharge Instructions PERSON INFORMATION [...] Follow up: With: Address: When: Med JENKINS [address] [place] [address], [address], [address] [address] Business (1) Within 3 months Comments: Call for [...] you have a fever over 100 degrees. I NARCISO VELASQUEZ, have received the attached patient education materials/instructions and have verbalized understanding: May we do a follow up call? Yes No I was present when discharge instructions were given Patient Signature Date Clinican/Nurse Signature Date You may receive a survey from [employer] asking you to rate your care experience. Your feedback is important and will help us understand what we do well and how we can improve the quality of care we provide to you, your loved ones and our community. It?s an honor to serve you. Thank you for choosing [facility] Office Visit (Cardiology)on 01-12-2023 Follow-up visit Diagnoses/Problems [...] Lipid Panel; Status:Active - Retrospective Authorization; Requested for:10Jul2023; SocHx: Never a smoker Tobacco Use Screening; [...] rheumatology locally, currently stable Donna Turcios MD, [facility] Surgical History Problems History of Angioplasty [...] Recorded: 12Jan2023 11:13AM Heart Rate88, L Radial Jxehachf265, LUE, Sitting Zzjnsepbp61, LUE, Sitting Height4 ft 10 in Vwhynm397 lb BMI Ltxleexgji99.95 kg/m2 BSA Calculated1.38 Tobacco Useb) No PHQ-2 [...] . Pulmo (more content not included)... [facility] Tobacco Screening.on 023 Adult depression screening assessment No [facility] 250 DO Work Phone: Fall risk assessment a) No falls within the last year [facility] 250 DO Work Phone: Tobacco use status CP b) No -[facility] 250 DO Work Phone: PTH INTACTon 11-30-2022 PTH, Intact 3 pg/mL Critically low 15-65 [facility] Comment on above: Performed By: #### R ENAL, MG #### [facility] [address] [place] [address] Dr. Emilie Jeronimo HEMOGRAM AND PLATELon 2022 Hematocrit (Bld) [Volume fraction] 38.0 % Normal 36.0-48.0 [facility] Comment on above: Performed By: #### R ENAL, MG #### [facility] [address] [place] [address] Dr. Emilie Jeronimo Hemoglobin (Bld) [Mass/Vol] 12.9 g/dL Normal 12.0-16.0 [facility] Comment on above: Performed By: #### R ENAL, MG #### [facility] [address] [place] [address] Dr. Emilie Jeronimo MCH (RBC) [Entitic mass] 32.5 pg Normal 26.7-34.0 [facility] Comment on above: Performed By: #### R ENAL, MG #### [facility] [address] [place] [address] Dr. Emilie Jeronimo MCHC (RBC) [Mass/Vol] 33.9 g/dL Normal 29.9-35.2 [facility] Comment on above: Performed By: #### R ENAL, MG #### [facility] [address] [place] [address] Dr. Emilie Jeronimo MCV (RBC) [Entitic vol] 95.7 fL Normal 81.0-99.0 [facility] Comment on above: Performed By: #### R ENAL, MG #### [facility] [address] [place] [address] Dr. Emilie Jeronimo PLT 214 103/ul Normal 150-450 [facility] Comment on above: Performed By: #### R ENAL, MG #### [facility] [address] [place] [address] Dr. Emilie Jeronimo RBC 3.97 106/ul Critically low 4.20-5.40 [facility] Comment on above: Performed By: #### R ENAL, MG #### [facility] [address] [place] [address] Dr. Emilie Jeronimo WBC 7.7 103/ul Normal 4.0-11.0 [facility] Comment on above: Performed By: #### R ENAL, MG #### [facility] [address] [place] [address] Dr. Emilie Jeronimo MAGNESIUMon 11-29-2022 Magnesium [Mass/Vol] 1.3 mg/dL Critically low 1.8-2.4 [facility] Comment on above: Performed By: #### R ENAL, MG #### [facility] [address] [place] [address] Dr. Emilie Jeronimo RENAL FUNCTION PANELon 11-29 Albumin [Mass/Vol] 3.6 g/dL Normal 3.4-5.0 [facility] Comment on above: Performed By: #### R ENMICHELLE, MG #### [facility] [address] [place] [address] Dr. Emilie Jeronimo Calcium [Mass/Vol] 9.4 mg/dL Normal 8.5-10.1 The [facility] Comment on above: Performed By: #### R ENAL, MG #### [facility] [address] [place] [address] Dr. Emilie Jeronimo Chloride [Moles/Vol] 103 mmol/L Normal 98-107 [facility] Comment on above: Performed By: #### R ENMICHELLE, MG #### [facility] [address] [place] [address] Dr. Emilie Jeronimo CO2 [Moles/Vol] 32.5 mmol/L Critically high 21.0-32.0 [facility] Comment on above: Performed By: #### R ENMICHELLE, MG #### [facility] [address] [place] [address] Dr. Emilie Jeronimo Creatinine [Mass/Vol] 0.79 mg/dL Normal 0.55-1.02 [facility] Comment on above: Performed By: #### R ENAL, MG #### [facility] [address] [place] [address] Dr. Emilie Jeronimo EGFR-AF BULGARIAN >60 Normal >=60 [facility] Comment on above: Performed By: #### R ENAL, MG #### [facility] [address] [address] [address] Emilie Jeronimo EGFR-NON AF BULGARIAN >60 Normal >=60 [facility] Comment on above: Performed By: #### R ENAL, MG #### [facility] [address] [place] [address] Dr. Emilie Jeronimo Glucose [Mass/Vol] 95 mg/dL Normal 74-106 [facility] Comment on above: Performed By: #### R ENMICHELLE, MG #### [facility] [address] [place] [address] Dr. Emilie Jeronimo Phosphate [Mass/Vol] 4.0 mg/dL Normal 2.6-4.7 [facility] Comment on above: Performed By: #### R ENMICHELLE, MG #### [facility] [address] [place] [address] Dr. Emilie Jeronimo Potassium [Moles/Vol] 3.8 mmol/L Normal 3.5-5.1 [facility] Comment on above: Performed By: #### R ENAL, MG #### [facility] [address] [place] [address] Dr. Emilie Jeronimo Sodium [Moles/Vol] 145 mmol/L Normal 136-145 [facility] Comment on above: Performed By: #### R ENAL, MG #### [facility] [address] [place] [address] Dr. Emilie Jeronimo Urea nitrogen [Mass/Vol] 17.0 mg/dL Normal 7.0-18.0 [facility] Comment on above: Performed By: #### R ENMICHELLE, MG #### [facility] [address] [place] [address] Dr. Emilie Jeronimo UA RANDOM W/MICROSCOPICon BACTERIA SMALL Abnormal NONE SEEN [facility] Comment on above: Performed By: #### R ENAL, MG #### [facility] [address] [place] [address] Dr. Emilie Jeronimo Bilirubin Ql (U) Negative Normal NEGATIVE [facility] Comment on above: Performed By: #### R ENAL, MG #### [facility] [address] [place] [address] Dr. Emilie Jeronimo CAST NONE SEEN Normal NONE SEEN [facility] Comment on above: Performed By: #### R ENAL, MG #### [facility] [address] [place] [address] Dr. Emilie Jeronimo Clarity (U) SL CLOUDY Abnormal CLEAR [facility] Comment on above: Performed By: #### R ENAL, MG #### [facility] [address] [place] [address] Dr. Emilie Jeronimo Color (U) LT. YELLOW Normal YELLOW [facility] Comment on above: Performed By: #### R ENAL, MG #### [facility] [address] [place] [address] Dr. Emilie Jeronimo Crystals LM Nom (Urine sed) NONE SEEN Normal NONE SEEN [facility] Comment on above: Performed By: #### R ENAL, MG #### [facility] [address] [place] [address] Dr. Emilie Jeronimo Epithelial cells LM Ql (Urine sed) RARE Normal NONE SEEN /RARE [facility] Comment on above: Performed By: #### R ENAL, MG #### [facility] [address] [place] [address] Dr. Emilie Jeronimo Glucose Ql (U) Negative Normal NEGATIVE The [facility] Comment on above: Performed By: #### R ENAL, MG #### [facility] [address] [place] [address] Dr. Emilie Jeronimo Hemoglobin Ql (U) TRACE-INTACT Abnormal NEGATIVE [facility] Comment on above: Performed By: #### R ENAL, MG #### [facility] [address] [address] [address] Emilie Jeronimo Ketones Ql (U) Negative Normal NEGATIVE [facility] Comment on above: Performed By: #### R ENAL, MG #### [facility] [address] [place] [address] Dr. Emilie Jeronimo LEUKOCYTES LARGE Abnormal NEGATIVE [facility] Comment on above: Performed By: #### R ENAL, MG #### [facility] [address] [address] [address] Emilie Jeronimo MUCOUS TRACE Abnormal NONE SEEN [facility] Comment on above: Performed By: #### R ENAL, MG #### [facility] [address] [place] [address] Dr. Emilie Jeronimo Nitrite Ql (U) Positive Abnormal NEGATIVE [facility] Comment on above: Performed By: #### R ENAL, MG #### [facility] [address] [place] [address] Dr. Emilie Jeronimo pH (U) 6.5 [pH] Normal 5-9 [facility] Comment on above: Performed By: #### R ENAL, MG #### [facility] [address] [place] [address] Dr. Emilie Jeronimo RBC 2-5 Abnormal 0-2 [facility] Comment on above: Performed By: #### R ENAL, MG #### [facility] [address] [place] [address] Dr. Emilie Jeronimo SPEC GRAVITY 1.020 Normal 1.005-<=1.025 The [facility] Comment on above: Performed By: #### R ENAL, MG #### [facility] [address] [place] [address] Dr. Emilie Jeronimo UA PROTEIN TRACE Normal NEGATIVE/ TRACE [facility] Comment on above: Performed By: #### R ENAL, MG #### [facility] [address] [place] [address] Dr. Emilie Jeronimo Urobilinogen Qn (U) 1.0 {Fareed'U}/dL Normal 0.2 - 1. 0 [facility] Comment on above: Performed By: #### R ENAL, MG #### [facility] [address] [place] [address] Dr. Emilie Jeronimo WBC 20-50 Abnormal NONE SEEN [facility] Comment on above: Performed By: #### R ZEESHAN, MG #### [facility] [address] [address] [address] Emilie Jeronimo VITAMIN D 25 OHon 11-29-2022 VIT D 25-OH 38.1 ng/mL Normal [facility] Comment on above: Performed By: #### R ZEESHAN, MG #### [facility] [address] [address] [address] Emilie Jeronimo VIT D RANGES SEE BELOW Normal [facility] Comment on above: Result Comment: <20 ng/mL Vit D deficient 20 - <30 ng/mL Vit D insufficient 30 - 100 ng/mL Vit D sufficient >100 ng/mL Potential Toxicity Performed By: #### Jovany BYERS, MG #### [facility] [address] [place] [address] Dr. Emilie Corral 08-02-2022 L ---- Specimen: [id number] Received: 08/02/22 Status: BIANKA Meyer Num: [id number] Spec Type: Surgical Subm Dr: Madhav Conrad MD Tissues: A Gastric Biopsy (GASTRIC BX) Procedures: HE Stain/2, Gross/Micro L4 Age/ Patient Sex Location Account Attending Physician RonMagdaNarciso A 81/[facility] [id number] Madhav Conrad MD SPEC NUM: [id number] RECD: 08/02/22 STATUS: BIANKA MEYER NUM: [id number] SHERLYN: 08/02/[address] [facility] [address]: Madhav Conrad MD ENTERED: 08/02/[address] [facility] [address]: VIVI TYPE: Surgical DEPT: S ORDERED: HE Stain/2, [...] findings support the above pathologic diagnosis. Specimen: [id number] Received: 08/02/22 Status: BINAKA Meyer Num: [id number] Spec Type: Surgical Subm Dr: Madhav Conrad MD Tissues: A Gastric Biopsy (GASTRIC BX) Procedures: HE Stain/2, Gross/Micro L4 Patient: Narciso Velasquez [id number] (Continued) Specimen: [id number] Received: 08/02/22 (Continued) Signed (signature on file) Donita Severino MD 08/04/22 1313 Specimen: [id number] Received: 08/02/22 Status: BIANKA Meyer Num: [id number] Spec Type: Surgical Subm Dr: Madhav Conrad MD Tissues: A Gastric Biopsy (GASTRIC BX) Procedures: HE Stain/2, Gross/Micro L4 Patient: Narciso Velasquez [id number] (Continued) Specimen: [id number] Received: 08/02/22 (Continued) CPT Codes 25295 Specimen: [id number] Received: 08/02/22 Status: BIANKA Meyer Num: [id number] Spec Type: Surgical Subm Dr: Madhav Conrad MD Tissues: A Gastric Biopsy (GASTRIC BX) Procedures: HE Stain/2, Gross/Micro L4 Patient: Narciso Velasquez [id number] (Continued) Signed (signature on file) Donita Severino MD 08/04/22 1313 Normal [facility] [place] [place] SARS-CoV-2 (COVID-19) RNA GAUDNECIO+probe Ql (Unsp spec) Negative Normal Negative [facility] Comment on above: Order Comment: Healt hcare Worker?: N Result Comment: Testing for SARS-CoV-2 by RT-PCR This test was developed and its performance characteristics determined by [employer] ([employer]) and validated at the [facility]. This test has not been FDA [...] is terminated or revoked sooner. PERFORMED BY: [facility] [address] [place] [address] PATHOLOGIST [employer] EXECUTIVE CHELSY MAHMOOD M.D. Performed By: #### C OVID 19 [facility] #### [facility] [address] COVID-19 Positive/NegativeOr dered By: Madhav Conrad on 07-29-2022 SARS-CoV-2 (COVID-19) N gene GAUDENCIO+probe Ql (Resp) Negative Negative [facility] Comment on above: Testing for SARS-CoV -2 by RT-PCRThis test was developed and its performance characteristics determined by [employer] ([employer]) and validated at the [facility]. This test has not been FDA [...] 07-11-2022 BASO # 0.1 103/ul Normal 0.0-0.1 [facility] Comment on above: Performed By: #### C BC #### [facility] [address] [place] [address] Dr. Emilie Jeronimo Basophils/100 WBC (Bld) 0.6 % Normal 0.2-2.0 [facility] Comment on above: Performed By: #### C BC #### [facility] [address] [place] [address] Dr. Emilie Jeronimo EO # 0.2 103/ul Normal 0.0-0.7 [facility] Comment on above: Performed By: #### C BC #### [facility] [address] [place] [address] Dr. Emilie Jeronimo Eosinophils/100 WBC (Bld) 1.9 % Normal 0.9-7.0 [facility] Comment on above: Performed By: #### C BC #### [facility] [address] [place] [address] Dr. Emilie Jeronimo Erythrocyte distribution width (RBC) [Ratio] 13.2 % Normal 11.0-15.0 [facility] Comment on above: Performed By: #### C BC #### [facility] [address] [place] [address] Dr. Emilie Jeronimo Hematocrit (Bld) [Volume fraction] 37.9 % Normal 36.0-48.0 [facility] Comment on above: Performed By: #### C BC #### [facility] [address] [place] [address] Dr. Emilie Jeronimo Hemoglobin (Bld) [Mass/Vol] 12.2 g/dL Normal 12.0-16.0 [facility] Comment on above: Performed By: #### C BC #### [facility] [address] [place] [address] Dr. Emilie Jeronimo IG # 0.03 10e3/ul Normal 0.00-0.03 [facility] Comment on above: Performed By: #### C BC #### [facility] [address] [place] [address] Dr. Emilie Jeronimo IG % 0.4 % Normal 0.0-0.5 [facility] Comment on above: Performed By: #### C BC #### [facility] [address] [place] [address] Dr. Emilie Jeronimo LYMPH # 2.3 103/ul Normal 1.2-3.8 [facility] Comment on above: Performed By: #### C BC #### [facility] [address] [place] [address] Dr. Emilie Jeronimo Lymphocytes/100 WBC (Bld) 29.0 % Normal 20.5-60.0 [facility] Comment on above: Performed By: #### C BC #### [facility] [address] [place] [address] Dr. Emilie Jeronimo MANUAL DIFF REQ NO Normal [facility] Comment on above: Performed By: #### C BC #### [facility] [address] [place] [address] Dr. Emilie Jeronimo MCH (RBC) [Entitic mass] 32.4 pg Normal 26.7-34.0 [facility] Comment on above: Performed By: #### C BC #### [facility] [address] [place] [address] Dr. Emilie Jeronimo MCHC (RBC) [Mass/Vol] 32.2 g/dL Normal 29.9-35.2 [facility] Comment on above: Performed By: #### C BC #### [facility] [address] [place] [address] Dr. Emilie Jeronimo MCV (RBC) [Entitic vol] 100.5 fL Critically high 81.0-99.0 [facility] Comment on above: Performed By: #### C BC #### [facility] [address] [place] [address] Dr. Emilie Jeronimo MONO # 0.6 103/ul Normal 0.3-0.8 [facility] Comment on above: Performed By: #### C BC #### [facility] [address] [place] [address] Dr. Emilie Jeronimo Monocytes/100 WBC (Bld) 7.9 % Normal 1.7-12.0 [facility] Comment on above: Performed By: #### C BC #### [facility] [address] [place] [address] Dr. Emilie Jeronimo NEUT # 4.7 103/ul Normal 1.4-6.5 [facility] Comment on above: Performed By: #### C BC #### [facility] [address] [place] [address] Dr. Emilie Jeronimo Neutrophils/100 WBC (Bld) 60.2 % Normal 43.0-75.0 [facility] Comment on above: Performed By: #### C BC #### [facility] [address] [place] [address] Dr. Emilie Jeronimo Platelet mean volume (Bld) [Entitic vol] 10.0 fL Normal 9.5-13.5 [facility] Comment on above: Performed By: #### C BC #### [facility] [address] [place] [address] Dr. Emilie Jeronimo PLT 234 103/ul Normal 150-450 [facility] Comment on above: Performed By: #### C BC #### [facility] [address] [place] [address] Dr. Emilie Jeronimo RBC 3.77 106/ul Critically low 4.20-5.40 [facility] Comment on above: Performed By: #### C BC #### [facility] [address] [place] [address] Dr. Emilie Jeronimo WBC 7.8 103/ul Normal 4.0-11.0 [facility] Comment on above: Performed By: #### C BC #### [facility] [address] [place] [address] Dr. Emilie Jeronimo FREE T4on 07-11-2022 Free T4 [Mass/Vol] 0.79 ng/dL Normal 0.76-1.46 The [facility] Comment on above: Performed By: #### Jovany BYERS MG #### [facility] [address] [place] [address] Dr. Emilie Jeronimo PROF 14(COMP METB)on 022 Albumin [Mass/Vol] 3.7 g/dL Normal 3.4-5.0 [facility] Comment on above: Performed By: #### R ZEESHAN MG #### [facility] [address] [place] [address] Dr. Emilie Jeronimo Albumin/Globulin [Mass ratio] 1.2 {ratio} Normal [facility] Comment on above: Performed By: #### Jovany BYERS, MG #### [facility] [address] [place] [address] Dr. Emilie Jeronimo ALP [Catalytic activity/Vol] 53 U/L Normal 46-116 [facility] Comment on above: Performed By: #### R ENAL, MG #### [facility] [address] [address] [address] Emilie Jeronimo ALT [Catalytic activity/Vol] 26 U/L Normal 14-59 [facility] Comment on above: Performed By: #### R ENAL, MG #### [facility] [address] [address] [address] Emilie Jeronimo Anion gap [Moles/Vol] 8.9 mmol/L Normal [facility] Comment on above: Performed By: #### R ENAL, MG #### [facility] [address] [address] [address] Emilie Jeronimo AST [Catalytic activity/Vol] 18 U/L Normal 15-37 [facility] Comment on above: Performed By: #### R ENAL, MG #### [facility] [address] [place] [address] Dr. Emilie Jeronimo Bilirubin [Mass/Vol] 0.3 mg/dL Normal 0.2-1.0 [facility] Comment on above: Performed By: #### R ENAL, MG #### [facility] [address] [address] [address] Emilie Jeronimo Calcium [Mass/Vol] 9.1 mg/dL Normal 8.5-10.1 [facility] Comment on above: Performed By: #### R ENAL, MG #### [facility] [address] [address] [address] Emilie Jeronimo Chloride [Moles/Vol] 104 mmol/L Normal 98-107 [facility] Comment on above: Performed By: #### R ENAL, MG #### [facility] [address] [address] [address] Emilie Jeronimo CO2 [Moles/Vol] 34.8 mmol/L Critically high 21.0-32.0 [facility] Comment on above: Performed By: #### R ENAL, MG #### [facility] [address] [address] [address] Emilie Jeronimo Creatinine [Mass/Vol] 0.73 mg/dL Normal 0.55-1.02 [facility] Comment on above: Performed By: #### R ENAL, MG #### [facility] [address] [address] [address] Emilie Jeronimo EGFR-AF BULGARIAN >60 Normal >=60 [facility] Comment on above: Performed By: #### R ENAL, MG #### [facility] [address] [address] [address] Emilie Jeronimo EGFR-NON AF BULGARIAN >60 Normal >=60 [facility] Comment on above: Performed By: #### R ENAL, MG #### [facility] [address] [address] [address] Emilie Jeronimo Globulin (S) [Mass/Vol] 3.2 g/dL Normal [facility] Comment on above: Performed By: #### R ENAL, MG #### [facility] [address] [address] [address] Emilie Jeronimo Glucose [Mass/Vol] 109 mg/dL Critically high 74-[address] [facility] Comment on above: Performed By: #### R ENAL, MG #### [facility] [address] [address] [address] Emilie Jeronimo Potassium [Moles/Vol] 3.7 mmol/L Normal 3.5-5.1 [facility] Comment on above: Performed By: #### R ENAL, MG #### [facility] [address] [address] [address] Emilie Jeronimo Protein [Mass/Vol] 6.9 g/dL Normal 6.4-8.2 [facility] Comment on above: Performed By: #### R ENAL, MG #### [facility] [address] [address] [address] Emilie Jeronimo Sodium [Moles/Vol] 144 mmol/L Normal 136-145 [facility] Comment on above: Performed By: #### R ENAL, MG #### [facility] [address] [address] [address] Emilie Jeronimo Urea nitrogen [Mass/Vol] 20.0 mg/dL Critically high 7.0-18.0 [facility] Comment on above: Performed By: #### R ENAL, MG #### [facility] [address] [place] [address] Dr. Emilie Jeronimo Urea nitrogen/Creatinine [Mass ratio] 27.4 mg/mg Normal [facility] Comment on above: Performed By: #### R ENAL, MG #### [facility] [address] [place] [address] Dr. Emilie Jeronimo TSHon 07-11-2022 TSH 3.616 uIU/mL Normal 0.358-3.740 [facility] Comment on above: Performed By: #### R ENAL, MG #### [facility] [address] [place] [address] Dr. Emilie Jeronimo VITAMIN B12on 07-11-2022 Cobalamin (Vitamin B12) [Mass/Vol] 321.0 pg/mL Normal 193.0-986.0 [facility] Comment on above: Performed By: #### R ENAL, MG #### [facility] [address] [place] [address] Dr. Emilie Jeronimo Tobacco Screening.on 022 Fall risk assessment a) No falls within the last year [facility] y [address] DO Work Phone: Tobacco use status CP b) No [facility] [address] DO Work Phone: CBC AUTO DIFFon 06-15-2022 BASO # 0.0 103/ul Normal 0.0-0.1 [facility] Comment on above: Performed By: #### C BC #### [facility] [address] [place] [address] Dr. Emilie Jeronimo Basophils/100 WBC (Bld) 0.4 % Normal 0.2-2.0 [facility] Comment on above: Performed By: #### C BC #### [facility] [address] [place] [address] Dr. Emilie Jeronimo EO # 0.2 103/ul Normal 0.0-0.7 [facility] Comment on above: Performed By: #### C BC #### [facility] [address] [place] [address] Dr. Emilie Jeronimo Eosinophils/100 WBC (Bld) 2.4 % Normal 0.9-7.0 [facility] Comment on above: Performed By: #### C BC #### [facility] [address] [place] [address] Dr. Emilie Jeronimo Erythrocyte distribution width (RBC) [Ratio] 12.8 % Normal 11.0-15.0 [facility] Comment on above: Performed By: #### C BC #### [facility] [address] [place] [address] Dr. Emilie Jeronimo Hematocrit (Bld) [Volume fraction] 38.3 % Normal 36.0-48.0 [facility] Comment on above: Performed By: #### C BC #### [facility] [address] [place] [address] Dr. Emilie Jeronimo Hemoglobin (Bld) [Mass/Vol] 12.5 g/dL Normal 12.0-16.0 [facility] Comment on above: Performed By: #### C BC #### [facility] [address] [place] [address] Dr. Emilie Jeronimo IG # 0.04 10e3/ul Critically high 0.00-0.03 [facility] Comment on above: Performed By: #### C BC #### [facility] [address] [place] [address] Dr. Emilie Jeronimo IG % 0.6 % Critically high 0.0-0.5 [facility] Comment on above: Performed By: #### C BC #### [facility] [address] [place] [address] Dr. Emilie Jeronimo LYMPH # 1.9 103/ul Normal 1.2-3.8 [facility] Comment on above: Performed By: #### C BC #### [facility] [address] [place] [address] Dr. Emilie Jeronimo Lymphocytes/100 WBC (Bld) 27.9 % Normal 20.5-60.0 [facility] Comment on above: Performed By: #### C BC #### [facility] [address] [place] [address] Dr. Emilie Jeronimo MANUAL DIFF REQ NO Normal [facility] Comment on above: Performed By: #### C BC #### [facility] [address] [place] [address] Dr. Emilie Jeronimo MCH (RBC) [Entitic mass] 32.2 pg Normal 26.7-34.0 [facility] Comment on above: Performed By: #### C BC #### [facility] [address] [place] [address] Dr. Emilie Jeronimo MCHC (RBC) [Mass/Vol] 32.6 g/dL Normal 29.9-35.2 [facility] Comment on above: Performed By: #### C BC #### [facility] [address] [place] [address] Dr. Emilie Jeronimo MCV (RBC) [Entitic vol] 98.7 fL Normal 81.0-99.0 [facility] [facility] Comment on above: Performed By: #### C BC #### [facility] [address] [place] [address] Dr. Emilie Jeronimo MONO # 0.5 103/ul Normal 0.3-0.8 [facility] Comment on above: Performed By: #### C BC #### [facility] [address] [place] [address] Dr. Emilie Jeronimo Monocytes/100 WBC (Bld) 7.3 % Normal 1.7-12.0 [facility] Comment on above: Performed By: #### C BC #### [facility] [address] [place] [address] Dr. Emilie Jeronimo NEUT # 4.1 103/ul Normal 1.4-6.5 [facility] Comment on above: Performed By: #### C BC #### [facility] [address] [place] [address] Dr. Emilie Jeronimo Neutrophils/100 WBC (Bld) 61.4 % Normal 43.0-75.0 [facility] Comment on above: Performed By: #### C BC #### [facility] [address] [address] [address] Emilie Jeronimo Platelet mean volume (Bld) [Entitic vol] 9.2 fL Critically low 9.5-13.5 [facility] Comment on above: Performed By: #### C BC #### [facility] [address] [address] [address] Emilie Jeronimo PLT 201 103/ul Normal 150-450 [facility] Comment on above: Performed By: #### C BC #### [facility] [address] [address] [address] Emilie Jeronimo RBC 3.88 106/ul Critically low 4.20-5.40 [facility] Comment on above: Performed By: #### C BC #### [facility] [address] [address] [address] Emilie Jeronimo WBC 6.7 103/ul Normal 4.0-11.0 [facility] Comment on above: Performed By: #### C BC #### [facility] [address] [place] [address] Dr. Emilie Jeronimo LIPID PROFILEon 06-15-2022 CHOL-HDL RATIO NORM SEE BELOW Normal [facility] Comment on above: Result Comment: 3.3 - 4.4 LOW RISK 4.4 - 7.1 AVERAGE RISK 7.1 - 11.0 MODERATE RISK >11.0 HIGH RISK Performed By: #### A ST, ALT, LIPID, BMP #### [facility] [address] [address] [address] Emilie Jeronimo Cholesterol [Mass/Vol] 124 mg/dL Normal <=200 [facility] Comment on above: Performed By: #### A ST, ALT, LIPID, BMP #### [facility] [address] [address] [address] Emilie Jeronimo Cholesterol in HDL [Mass/Vol] 81 mg/dL Critically high 40-60 [facility] Comment on above: Performed By: #### A ST, ALT, LIPID, BMP #### [facility] [address] [address] [address] Emilie Jeronimo Cholesterol in LDL [Mass/Vol] 27.6 mg/dL Normal [facility] Comment on above: Performed By: #### A ST, ALT, LIPID, BMP #### [facility] [address] [address] [address] Emilie Jeronimo Cholesterol.total/C holesterol in HDL [Mass ratio] 1.5 {ratio} Normal [facility] Comment on above: Performed By: #### A ST, ALT, LIPID, BMP #### [facility] [address] [address] [address] Emilie Jeronimo HDL NORMAL > or = 60 mg/dl - LO W CARDIOVASCULAR RISK <40 mg/dl - HIGH CARDIOVASCULAR RISK Normal [facility] Comment on above: Performed By: #### A ST, ALT, LIPID, BMP #### [facility] [address] [place] [address] Dr. Emilie Jeronimo LDL CALC NORMAL SEE BELOW Normal [facility] Comment on above: Result Comment: <100 mg/dl OPTIMAL 100 - 129 mg/dl NEAR OR ABOVE OPTIMAL 130 - 159 mg/dl BORDERLINE HIGH 160 - 189 mg/dl HIGH >190 mg/dl VERY HIGH Performed By: #### A ST, ALT, LIPID, BMP #### [facility] [address] [address] [address] Emilie Jeronimo Triglyceride [Mass/Vol] 77 mg/dL Normal <=150 [facility] Comment on above: Performed By: #### A ST, ALT, LIPID, BMP #### [facility] [address] [address] [address] Emilie Jeronimo VLDL CALC 15.4 mg/dL Normal [facility] Comment on above: Performed By: #### A ST, ALT, LIPID, BMP #### [facility] [address] [address] [address] Emilie Jeronmio PROF CHEM 8 (BAS METB)on Anion gap [Moles/Vol] 12.7 mmol/L Normal [facility] Comment on above: Performed By: #### A ST, ALT, LIPID, BMP #### [facility] [address] [address] [address] Emilie Jeronimo Calcium [Mass/Vol] 8.5 mg/dL Normal 8.5-10.1 [facility] Comment on above: Performed By: #### A ST, ALT, LIPID, BMP #### [facility] [address] [address] [address] Emilie Jeronimo Chloride [Moles/Vol] 102 mmol/L Normal 98-107 [facility] Comment on above: Performed By: #### A ST, ALT, LIPID, BMP #### [facility] [address] [address] [address] Emilie Jeronimo CO2 [Moles/Vol] 30.1 mmol/L Normal 21.0-32.[address] [facility] Comment on above: Performed By: #### A ST, ALT, LIPID, BMP #### [facility] [address] [place] [address] Dr. Emilie Jeronimo Creatinine [Mass/Vol] 0.76 mg/dL Normal 0.55-1.02 [facility] Comment on above: Performed By: #### A ST, ALT, LIPID, BMP #### [facility] [address] [place] [address] Dr. Emilie Jeronimo EGFR-AF BULGARIAN >60 Normal >=[address] [facility] Comment on above: Performed By: #### A ST, ALT, LIPID, BMP #### [facility] [address] [place] [address] Dr. Emilie Jeronimo EGFR-NON AF BULGARIAN >60 Normal >=60 [facility] Comment on above: Performed By: #### A ST, ALT, LIPID, BMP #### [facility] [address] [place] [address] Dr. Emilie Jeronimo Glucose [Mass/Vol] 97 mg/dL Normal 74-106 [facility] Comment on above: Performed By: #### A ST, ALT, LIPID, BMP #### [facility] [address] [place] [address] Dr. Emilie Jeronimo Potassium [Moles/Vol] 3.8 mmol/L Normal 3.5-5.1 [facility] Comment on above: Performed By: #### A ST, ALT, LIPID, BMP #### [facility] [address] [address] [address] Emilie Jeronimo Sodium [Moles/Vol] 141 mmol/L Normal 136-145 [facility] Comment on above: Performed By: #### A ST, ALT, LIPID, BMP #### [facility] [address] [address] [address] Emilie Jeronimo Urea nitrogen [Mass/Vol] 21.0 mg/dL Critically high 7.0-18.0 [facility] Comment on above: Performed By: #### A ST, ALT, LIPID, BMP #### [facility] [address] [address] [address] Emilie Jeronimo Urea nitrogen/Creatinine [Mass ratio] 27.6 mg/mg Normal [facility] Comment on above: Performed By: #### A ST, ALT, LIPID, BMP #### [facility] [address] [place] [address] Dr. Emilie Yoder 06-15-2022 AST [Catalytic activity/Vol] 22 U/L Normal 15-37 [facility] Comment on above: Performed By: #### A ST, ALT, LIPID, BMP #### [facility] [address] [place] [address] Dr. Emilie Mcarthur 06-15-2022 ALT [Catalytic activity/Vol] 21 U/L Normal 14-59 [facility] Comment on above: Performed By: #### A ST, ALT, LIPID, BMP #### [facility] [address] [place] [address] ABD/PELVIS WO CONon [...] JAYLEEN GREER Date: 2022-04-21 10:40 Normal [facility] PTH INTACTon 03-24-2022 PTH, Intact 4 pg/mL Critically low 15-65 [facility] Comment on above: Performed By: #### P THINT #### [facility] [address] [place] [address] Dr. Emilie Jeronimo CBC AUTO DIFFon 03-23-2022 BASO # 0.0 103/ul Normal 0.0-0.1 [facility] Comment on above: Performed By: #### R ZEESHAN MG #### [facility] [address] [place] [address] Dr. Emilie Jeronimo Basophils/100 WBC (Bld) 0.5 % Normal 0.2-2.0 [facility] Comment on above: Performed By: #### R ZEESHAN MG #### [facility] [address] [place] [address] Dr. Emilie Jeronimo EO # 0.1 103/ul Normal 0.0-0.7 [facility] Comment on above: Performed By: #### Jovany BYERS MG #### [facility] [address] [place] [address] Dr. Emilie Jeronimo Eosinophils/100 WBC (Bld) 1.3 % Normal 0.9-7.0 [facility] Comment on above: Performed By: #### R ENMICHELLE, MG #### [facility] [address] [place] [address] Dr. Emilie Jeronimo Erythrocyte distribution width (RBC) [Ratio] 13.0 % Normal 11.0-15.0 [facility] Comment on above: Performed By: #### R ENMICHELLE, MG #### [facility] [address] [place] [address] Dr. Emilie Jeronimo Hematocrit (Bld) [Volume fraction] 34.2 % Critically low 36.0-48.0 [facility] Comment on above: Performed By: #### R ENMICHELLE, MG #### [facility] [address] [place] [address] Dr. Emilie Jeronimo Hemoglobin (Bld) [Mass/Vol] 11.3 g/dL Critically low 12.0-16.0 [facility] Comment on above: Performed By: #### R ENAL, MG #### [facility] [address] [place] [address] Dr. Emilie Jeronimo IG # 0.02 10e3/ul Normal 0.00-0.03 [facility] Comment on above: Performed By: #### R ENMICHELLE, MG #### [facility] [address] [place] [address] Dr. Emilie Jeronimo IG % 0.3 % Normal 0.0-0.5 [facility] Comment on above: Performed By: #### R ENAL, MG #### [facility] [address] [place] [address] Dr. Emilie Jeronimo LYMPH # 1.4 103/ul Normal 1.2-3.8 [facility] Comment on above: Performed By: #### R ENAL, MG #### [facility] [address] [place] [address] Dr. Emilie Jeronimo Lymphocytes/100 WBC (Bld) 24.0 % Normal 20.5-60.0 [facility] Comment on above: Performed By: #### R ENAL, MG #### [facility] [address] [place] [address] Dr. Emilie Jeronimo MANUAL DIFF REQ NO Normal [facility] Comment on above: Performed By: #### R ENAL, MG #### [facility] [address] [place] [address] Dr. Emilie Jeronimo MCH (RBC) [Entitic mass] 32.5 pg Normal 26.7-34.0 [facility] Comment on above: Performed By: #### R ENAL, MG #### [facility] [address] [place] [address] Dr. Emilie Jeronimo MCHC (RBC) [Mass/Vol] 33.0 g/dL Normal 29.9-35.2 [facility] Comment on above: Performed By: #### R ENAL, MG #### [facility] [address] [place] [address] Dr. Emilie Jeronimo MCV (RBC) [Entitic vol] 98.3 fL Normal 81.0-99.0 [facility] Comment on above: Performed By: #### R ENAL, MG #### [facility] [address] [place] [address] Dr. Emilie Jeronimo MONO # 0.5 103/ul Normal 0.3-0.8 [facility] Comment on above: Performed By: #### R ENAL, MG #### [facility] [address] [place] [address] Dr. Emilie Jeronimo Monocytes/100 WBC (Bld) 8.7 % Normal 1.7-12.0 [facility] Comment on above: Performed By: #### R ENAL, MG #### [facility] [address] [place] [address] Dr. Emilie Jeronimo NEUT # 3.9 103/ul Normal 1.4-6.5 [facility] Comment on above: Performed By: #### R ENAL, MG #### [facility] [address] [place] [address] Dr. Emilie Jeronimo Neutrophils/100 WBC (Bld) 65.2 % Normal 43.0-75.0 [facility] Comment on above: Performed By: #### R ENAL, MG #### [facility] [address] [address] [address] Emilie Jeronimo Platelet mean volume (Bld) [Entitic vol] 10.0 fL Normal 9.5-13.5 [facility] Comment on above: Performed By: #### R ENAL, MG #### [facility] [address] [address] [address] Emilie Jeronimo PLT 197 103/ul Normal 150-450 [facility] Comment on above: Performed By: #### R ENAL, MG #### [facility] [address] [place] [address] Dr. Emilie Jeronimo RBC 3.48 106/ul Critically low 4.20-5.40 [facility] Comment on above: Performed By: #### R ENAL, MG #### [facility] [address] [place] [address] Dr. Emilie Jeronimo WBC 6.0 103/ul Normal 4.0-11.0 [facility] Comment on above: Performed By: #### R ENAL, MG #### [facility] [address] [place] [address] Dr. Emilie Jeronimo PROF CHEM 8 (BAS METB)on Anion gap [Moles/Vol] 10.3 mmol/L Normal [facility] Comment on above: Performed By: #### R ENAL, MG #### [facility] [address] [place] [address] Dr. Emilie Jeronimo Calcium [Mass/Vol] 6.1 mg/dL Critically low 8.5-10.1 [facility] Comment on above: Performed By: #### R ENAL, MG #### [facility] [address] [place] [address] Dr. Emilie Jeronimo Chloride [Moles/Vol] 103 mmol/L Normal 98-107 [facility] Comment on above: Performed By: #### R ENAL, MG #### [facility] [address] [place] [address] Dr. Emilie Jeronimo CO2 [Moles/Vol] 31.8 mmol/L Normal 21.0-32.0 [facility] Comment on above: Performed By: #### R ENAL, MG #### [facility] [address] [place] [address] Dr. Emilie Jeronmio Creatinine [Mass/Vol] 0.70 mg/dL Normal 0.55-1.02 [facility] Comment on above: Performed By: #### R ENAL, MG #### [facility] [address] [address] [address] Emilie Jeronimo EGFR-AF BULGARIAN >60 Normal >=60 [facility] Comment on above: Performed By: #### R ENAL, MG #### [facility] [address] [place] [address] Dr. Emilie Jeronimo EGFR-NON AF BULGARIAN >60 Normal >=60 [facility] Comment on above: Performed By: #### R ENAL, MG #### [facility] [address] [place] [address] Dr. Emilie Jeronimo Glucose [Mass/Vol] 120 mg/dL Critically high 74-[address] [facility] Comment on above: Performed By: #### R ENAL, MG #### [facility] [address] [place] [address] Dr. Emilie Jeronimo Potassium [Moles/Vol] 3.1 mmol/L Critically low 3.5-5.1 [facility] Comment on above: Performed By: #### R ENAL, MG #### [facility] [address] [address] [address] Emilie Jeronimo Sodium [Moles/Vol] 142 mmol/L Normal 136-145 [facility] Comment on above: Performed By: #### R ENAL, MG #### [facility] [address] [place] [address] Dr. Emilie Jeronimo Urea nitrogen [Mass/Vol] 21.0 mg/dL Critically high 7.0-18.0 [facility] Comment on above: Performed By: #### R ENAL, MG #### [facility] [address] [place] [address] Dr. Emilie Jeronimo Urea nitrogen/Creatinine [Mass ratio] 30.0 mg/mg Normal [facility] Comment on above: Performed By: #### R ENAL, MG #### [facility] [address] [place] [address] Dr. Emilie Jeronimo MAGNESIUMon 03-22-2022 Magnesium [Mass/Vol] 1.5 mg/dL Critically low 1.8-2.4 [facility] Comment on above: Performed By: #### R ENAL, MG #### [facility] [address] [place] [address] Dr. Emilie Jeronimo RENAL FUNCTION PANELon 03-22 Albumin [Mass/Vol] 3.6 g/dL Normal 3.4-5.0 [facility] Comment on above: Performed By: #### R ENAL, MG #### [facility] [address] [place] [address] Dr. Emilie Jeronimo Calcium [Mass/Vol] 6.4 mg/dL Critically low 8.5-10.1 [facility] Comment on above: Performed By: #### R ENAL, MG #### [facility] [address] [place] [address] Dr. Emilie Jeronimo Chloride [Moles/Vol] 101 mmol/L Normal 98-107 [facility] Comment on above: Performed By: #### R ENAL, MG #### [facility] [address] [place] [address] Dr. Emilie Jeronimo CO2 [Moles/Vol] 31.4 mmol/L Normal 21.0-32.0 [facility] Comment on above: Performed By: #### R ENAL, MG #### [facility] [address] [place] [address] Dr. Emilie Jeronimo Creatinine [Mass/Vol] 0.77 mg/dL Normal 0.55-1.02 [facility] Comment on above: Performed By: #### R ENAL, MG #### [facility] [address] [place] [address] Dr. Emilie Jeronimo EGFR-AF BULGARIAN >60 Normal >=[address] [facility] Comment on above: Performed By: #### R ENAL, MG #### [facility] [address] [place] [address] Dr. Emilie Jeronimo EGFR-NON AF BULGARIAN >60 Normal >=60 [facility] Comment on above: Performed By: #### R ENAL, MG #### [facility] [address] [address] [address] Emilie Jeronimo Glucose [Mass/Vol] 150 mg/dL Critically high 74-[address] [facility] Comment on above: Performed By: #### R ENAL, MG #### [facility] [address] [address] [address] Emilie Jeronimo Phosphate [Mass/Vol] 4.8 mg/dL Critically high 2.6-4.7 [facility] Comment on above: Performed By: #### R ENAL, MG #### [facility] [address] [place] [address] Dr. Emilie Jeronimo Potassium [Moles/Vol] 2.7 mmol/L Critically low 3.5-5.1 [facility] Comment on above: Result Comment: TEST REPEATED CRITICAL VALUE VERIFIED Performed By: #### R ENAL, MG #### [facility] [address] [place] [address] Dr. Emilie Jeronimo Sodium [Moles/Vol] 142 mmol/L Normal 136-145 [facility] Comment on above: Performed By: #### R ENAL, MG #### [facility] [address] [place] [address] Dr. Emilie Jeronimo Urea nitrogen [Mass/Vol] 29.0 mg/dL Critically high 7.0-18.0 [facility] Comment on above: Performed By: #### R ENAL, MG #### [facility] [address] [place] [address] Dr. Emilie Jeronimo VITAMIN D 25 OHon 03-22-2022 VIT D 25-OH 32.5 ng/mL Normal [facility] Comment on above: Performed By: #### V ITAD #### [facility] [address] [place] [address] Dr. Emilie Jeronimo VIT D RANGES SEE BELOW Normal [facility] Comment on above: Result Comment: <20 ng/mL Vit D deficient 20 - <30 ng/mL Vit D insufficient 30 - 100 ng/mL Vit D sufficient >100 ng/mL Potential Toxicity Performed By: #### V ITAD #### [facility] [address] [address] [address] Emilie Jeronimo Tobacco Screening.on 022 Adult depression screening assessment No [facility] DO Work Phone: Fall risk assessment a) No falls within the last year [facility] DO Work Phone: Tobacco use status [facility] b) No [facility] 250 DO Work Phone: Automated erythrocytes count in urine sediment (number/area)on 02-17-2021 RBC Auto (Urine sed) [#/Area] 0-1 [HPF] [facility] Automated leukocytes count i n urine sediment (number/area)on 02-17-2021 WBC Auto (Urine sed) [#/Area] 20-49 [HPF] [facility] Basophils Auto (Bld) [#/Vol] on 02-17-2021 Basophils (Bld) [#/Vol] 0.1 10*3/uL 0.0-0.2 [facility] Basophils/100 WBC Auto (Bld) on 02-17-2021 Basophils/100 WBC (Bld) 0.8 % [facility] Bilirubin Test strip Ql (U)o n 02-17-2021 Bilirubin Ql (U) Negative Negative [facility] Blood hemoglobin measurement (mass/volume)on 02-17-2021 Hemoglobin (Bld) [Mass/Vol] 12.6 g/dL 11.8-15.4 [facility] Blood leukocytes automated c ount (number/volume)on 02-17-2021 WBC (Bld) [#/Vol] 7.3 10*3/uL 4.5-11.0 [facility] Color Auto (U)on 02-17-2021 Color (U) Yellow Yellow [facility] Creatinine and Glomerular fi ltration rate.predicted panel (S/P/Bld)on 02-17-2021 Creatinine [Mass/Vol] 0.78 mg/dL 0.44-1.03 [facility] Eosinophils Auto (Bld) [#/Vo l]on 02-17-2021 Eosinophils (Bld) [#/Vol] 0.2 10*3/uL 0.0-0.45 [facility] Eosinophils/100 WBC Auto (Bl d)on 02-17-2021 Eosinophils/100 WBC (Bld) 2.2 % [facility] Erythrocyte distribution wid th Auto (RBC) [Ratio]on 02-17-2021 Erythrocyte distribution width (RBC) [Ratio] 14.5 % 11.9-15.3 [facility] Estimated glomerular filtrat ion rate (GFR) non- Americanon 02-17-2021 GFR/1.73 sq M.predicted among non-blacks MDRD (S/P/Bld) [Vol rate/Area] > 60 mL/Min [facility] Hematocrit Auto (Bld) [Volum e fraction]on 02-17-2021 Hematocrit (Bld) [Volume fraction] 37.5 % 34.0-46.4 [facility] Ketones Auto test strip (U) [Mass/Vol]on 02-17-2021 Ketones (U) [Mass/Vol] Negative Negative [facility] - Hematology and Cell countson 02-17-2021 Nucleated RBC/100 WBC (Bld) [Ratio] 0.0 % 0-0.5 [facility] - Urinalysison Hyaline casts LM Ql (Urine sed) 0-8 [LPF] [facility] Lymphocytes Auto (Bld) [#/Vo l]on 02-17-2021 Lymphocytes (Bld) [#/Vol] 1.6 10*3/uL 1.00-4.8 [facility] Lymphocytes/100 WBC Auto (Bl d)on 02-17-2021 Lymphocytes/100 WBC (Bld) 21.5 % [facility] MCH Auto (RBC) [Entitic mass ]on 02-17-2021 MCH (RBC) [Entitic mass] 32.4 pg 24.7-34.3 [facility] MCHC Auto (RBC) [Mass/Vol]on 02-17-2021 MCHC (RBC) [Mass/Vol] 33.6 g/dL 32.0-35.0 [facility] MCV Auto (RBC) [Entitic vol] on 02-17-2021 MCV (RBC) [Entitic vol] 96.3 fL 80-100 [facility] Monocytes Auto (Bld) [#/Vol] on 02-17-2021 Monocytes (Bld) [#/Vol] 0.7 10*3/uL 0.0-0.8 [facility] Monocytes/100 WBC Auto (Bld) on 02-17-2021 Monocytes/100 WBC (Bld) 9.6 % [facility] Neutrophils Auto (Bld) [#/Vo l]on 02-17-2021 Neutrophils (Bld) [#/Vol] 4.8 10*3/uL 1.8-7.7 [facility] Neutrophils/100 WBC Auto (Bl d)on 02-17-2021 Neutrophils/100 WBC (Bld) 65.9 % [facility] Nitrite Test strip Ql (U)on 02-17-2021 Nitrite Ql (U) Negative Negative [facility] No Panel Informationon 02-17 Estimated GFR () > 60 mL/Min [facility] Comment on above: GFR estimated refere nce range: According to KDOQI guidelines, <60 ml/min/1.73m2 is sufficient to diagnose a patient with chronic kidney disease. Pharmacy Creatinine Clearance (Chem N/A [facility] Platelet mean volume Auto (B ld) [Entitic vol]on 02-17-2021 Platelet mean volume (Bld) [Entitic vol] 7.6 fL 6.3-10.7 [facility] Platelets Auto (Bld) [#/Vol] on 02-17-2021 Platelets (Bld) [#/Vol] 206 10*3/uL 150-450 [facility] Protein Auto test strip (U) [Mass/Vol]on 02-17-2021 Protein (U) [Mass/Vol] Negative Negative [facility] [facility] RBC Auto (Bld) [#/Vol]on RBC (Bld) [#/Vol] 3.89 10*6/uL 3.60-5.00 [facility] Serum or plasma calcium twan urement (mass/volume)on 02-17-2021 Calcium [Mass/Vol] 7.6 mg/dL 8.2-10.2 [facility] Serum or plasma chloride jewel surement (moles/volume)on 02-17-2021 Chloride [Moles/Vol] 100 mmol/L 95-114 [facility] Serum or plasma glucose twan urement (mass/volume)on 02-17-2021 Glucose [Mass/Vol] 97 mg/dL 70-100 [facility] Comment on above: ADA recommended refe rence rangeRandom Glucose Reference Range is dependent on time and content of last meal. Glucose of more than 200 mg/dL in a nonstressed, ambulatory subject supports the diagnosis of Diabetes Mellitus. Serum or plasma potassium me asurement (moles/volume)on 02-17-2021 Potassium [Moles/Vol] 3.8 mmol/L 3.5-5.1 [facility] Serum or plasma sodium measu rement (moles/volume)on 02-17-2021 Sodium [Moles/Vol] 139 mmol/L 136-146 [facility] Serum or plasma total carbon dioxide measurement (moles/volume)on 02-17-2021 CO2 [Moles/Vol] 28.3 mmol/L 22.0-30.0 [facility] Serum or plasma urea nitroge n measurement (mass/volume)on 02-17-2021 Urea nitrogen [Mass/Vol] 22 mg/dL 9-23 [facility] Specific gravity Auto test s trip (U) [Rel density]on 02-17-2021 Specific gravity (U) [Rel density] 1.021 1.001-1.030 [facility] Squamous epithelial cells de tection in urine sediment by light microscopyon 02-17-2021 Epithelial cells.squamous LM Ql (Urine sed) 0-1 [HPF] [facility] Urine bacteria detection by automated methodon 02-17-2021 Bacteria Auto Ql (U) 2+ None Seen [facility] Urine clarity by refractomet ry automatedon 04-21-2021 Clarity Refractometry automated (U) Clear Clear [facility] Urine culture routineon 01-29 Bacteria identified Cx Nom (U) Aerococcus urinae [facility] Urine glucose measurement by automated test strip (mass/volume)on 02-17-2021 Glucose Auto test strip (U) [Mass/Vol] Normal mg/dL Normal [facility] Urine hemoglobin detection b y automated test stripon 02-17-2021 Hemoglobin Auto test strip Ql (U) Negative Negative [facility] Urine leukocyte esterase det ection by automated test stripon 02-17-2021 Leukocyte esterase Auto test strip Ql (U) 3+ Negative [facility] Urobilinogen Auto test strip (U) [Mass/Vol]on 02-17-2021 Urobilinogen (U) [Mass/Vol] Normal mg/dL Normal [facility] Yeast detection in urine sed iment by light microscopyon 02-17-2021 Yeast LM Ql (Urine sed) None seen [HPF] None Seen [facility] pH Auto test strip (U)on pH (U) 5.0 [pH] 5.0-9.0 [facility] Cesar 03-12-2020 ALT [Catalytic activity/Vol] 16 U/L Normal 7 - 45 [facility] Comment on above: Result Comment: Josee ents treated with Sulfasalazine may generate falsely decreased results for ALT. Performed By: #### A LT #### [address] [address] Jamari 03-12-2020 AST [Catalytic activity/Vol] 22 U/L Normal 9 - 39 [facility] Comment on above: Performed By: #### A ST #### [address] [address] CREATININEon 03-12-2020 Creatinine [Mass/Vol] mg/dL Normal >60 [facility] Comment on above: Result Comment: CALC ULATIONS OF ESTIMATED GFR ARE PERFORMED USING THE MDRD STUDY EQUATION FOR THE IDMS-TRACEABLE CREATININE METHODS. CLIN CHEM 2007;53:766-72 Performed By: #### C REAT #### [address] [address] Creatinine [Mass/Vol] 0.84 mg/dL Normal 0.50 - 1.05 [facility] Comment on above: Performed By: #### C REAT #### [address] [address] ELECTROLYTE PANELon 03-12-20 20 Anion gap [Moles/Vol] 15 mmol/L Normal 10 - 20 [facility] Comment on above: Performed By: #### E LECT #### [address] [address] Chloride [Moles/Vol] 102 mmol/L Normal 98 - 107 [facility] Comment on above: Performed By: #### E LECT #### [address] [address] HCO3 (Bld) [Moles/Vol] 30 mmol/L Normal 21 - 32 [facility] Comment on above: Performed By: #### E LECT #### [address] [address] Potassium [Moles/Vol] 4.0 mmol/L Normal 3.5 - 5.3 [facility] Comment on above: Performed By: #### E LECT #### [address] [address] Sodium [Moles/Vol] 143 mmol/L Normal 136 - 145 [facility] Comment on above: Performed By: #### E LECT #### [address] [address] LIPID PANEL (CORONARY RISK 2 )on 03-12-2020 Cholesterol [Mass/Vol] 99 mg/dL Normal 0 - 199 [facility] Comment on above: Result Comment: . [...] dosing. Performed By: #### L IPID #### [address] [address] Cholesterol in HDL [Mass/Vol] 60.0 mg/dL Normal [facility] Comment on above: Result Comment: . AGE VERY LOW LOW NORMAL HIGH 0-19 Y < 35 < 40 40-45 ---- 20-24 Y ---- < 40 >45 ---- >24 Y ---- < 40 40-60 >60 . Performed By: #### L IPID #### [address] [address] Cholesterol in LDL [Mass/Vol] 23 mg/dL Normal 0 - 99 [facility] Comment on above: Result Comment: . NEAR BORD AGE DESIRABLE OPTIMAL HIGH HIGH VERY HIGH 0-19 Y 0 - 109 --- 110-129 >/= 130 ---- 20-24 Y 0 - 119 --- 120-159 >/= 160 ---- >24 Y 0 - 99 100-129 130-159 160-189 >/=190 . Performed By: #### L IPID #### [address] [address] Cholesterol in VLDL [Mass/Vol] 16 mg/dL Normal 0 - 40 [facility] Comment on above: Performed By: #### L IPID #### [address] [address] Cholesterol.total/C holesterol in HDL [Mass ratio] 1.7 {ratio} Normal [facility] Comment on above: Result Comment: REF VALUES DESIRABLE < 3.4 HIGH RISK > 5.0 Performed By: #### L IPID #### [address] [address] Triglyceride [Mass/Vol] 79 mg/dL Normal 0 - 149 [facility] Comment on above: Result Comment: . [...] dosing. Performed By: #### L IPID #### [address] [address] PARATHYROID HORMONE,INTACTon 03-12-2020 PARATHYROID HORMONE,INTACT < 6.3 Low 18.5 - 88.0 [facility] Comment on above: Result Comment: Josee ents receiving more than 5 mg/day of biotin may have interference in test results. A sample should be taken no sooner than eight hours after previous dose. Contact the testing laboratory for additional information. Performed By: #### P TH #### [address] [address] RENAL FUNCTION PANELon 03-12 Albumin [Mass/Vol] 4.3 g/dL Normal 3.4 - 5.0 [facility] Comment on above: Performed By: #### T SH2 #### [address] [address] Anion gap [Moles/Vol] 16 mmol/L Normal 10 - 20 [facility] Comment on above: Performed By: #### T SH2 #### [address] [address] Calcium [Mass/Vol] 8.2 mg/dL Low 8.6 - 10.3 [facility] Comment on above: Performed By: #### T SH2 #### [address] [address] Chloride [Moles/Vol] 102 mmol/L Normal 98 - 107 [facility] Comment on above: Performed By: #### T SH2 #### [address] [address] Creatinine [Mass/Vol] 0.82 mg/dL Normal 0.50 - 1.05 [facility] Comment on above: Performed By: #### T SH2 #### [address] [address] GFR- AM. >60 Normal >60 [facility] Comment on above: Result Comment: CALC ULATIONS OF ESTIMATED GFR ARE PERFORMED USING THE MDRD STUDY EQUATION FOR THE IDMS-TRACEABLE CREATININE METHODS. CLIN CHEM 2007;53:766-72 Performed By: #### T SH2 #### [address] [address] GFR-NON AM. >60 Normal >60 [facility] Comment on above: Performed By: #### T SH2 #### [address] [address] Glucose [Mass/Vol] 97 mg/dL Normal 74 - 99 [facility] Comment on above: Performed By: #### T SH2 #### [address] [address] HCO3 (Bld) [Moles/Vol] 29 mmol/L Normal 21 - 32 [facility] Comment on above: Performed By: #### T SH2 #### [address] [address] Phosphate [Mass/Vol] 5.3 mg/dL High 2.5 - 4.9 [facility] Comment on above: Result Comment: The performance characteristics of phosphorus testing in heparinized plasma have been validated by the individual laboratory site where testing is performed. Testing on heparinized plasma is not approved by the FDA; however, such approval is not necessary. Performed By: #### T SH2 #### [address] [address] Potassium [Moles/Vol] 3.7 mmol/L Normal 3.5 - 5.3 [facility] Comment on above: Performed By: #### T SH2 #### [address] [address] Sodium [Moles/Vol] 143 mmol/L Normal 136 - 145 [facility] Comment on above: Performed By: #### T SH2 #### [address] [address] Urea nitrogen [Mass/Vol] 23 mg/dL Normal 6 - 23 [facility] Comment on above: Performed By: #### T SH2 #### [address] [address] UREA NITROGENon 03-12-2020 Urea nitrogen [Mass/Vol] 23 mg/dL Normal 6 - 23 [facility] Comment on above: Performed By: #### U TARAS #### [address] [address] VITAMIN D, 25-HYDROXYon 02-27 VITAMIN D, 25-HYDROXY 43 ng/mL Normal [facility] Comment on above: Result Comment: . DEFICIENCY: < 20 NG/ML INSUFFICIENCY: 20-29 NG/ML SUFFICIENCY: 30-100 NG/ML THIS ASSAY ACCURATELY QUANTIFIES THE SUM OF VITAMIN D3, 25-HYDROXY AND VIT D2,25-HYDROXY. Performed By: #### T SH2 #### [address] [address] THYROXINEon 09-17-2019 T4 [Mass/Vol] 8.0 ug/dL Normal 4.5 - 11.1 [facility] Comment on above: Performed By: #### T 4 #### [address] [address] THYROXINE,FREEon 09-17-2019 THYROXINE,FREE 0.70 ng/dL Normal 0.61 - 1.27 [facility] Comment on above: Result Comment: Thyr oxine Free testing is performed using different testing methodology at [facility] than at other [facility]. Direct result comparisons should only be made within the same method. Patients receiving more than 5 mg/day of biotin may have interference in test results. A sample should be taken no sooner than eight hours after previous dose. Performed By: #### T 4FRE #### [address] [address] TSHon 09-17-2019 TSH Qn 6.25 m[IU]/L High 0.44 - 3.98 [facility] Comment on above: Result Comment: TSH testing is performed using different testing methodology at [facility] than at other [facility]. Direct result comparisons should only be made within the same method. Performed By: #### T COX BRANSON #### [address] [address] Vital Signs Date Time Vital Sign Value Performing Clinician Facility 08-07-2024 10:44-0400 Body height 144.8 cm Seema Moz [employer] OPERATOR Work Phone: [facility] 08-07-2024 10:44-0400 Body mass index (BMI) [Ratio] 22.55 kg/m2 Seema Tateholz [employer] OPERATOR Work Phone: [facility] 08-07-2024 10:44-0406 Body temperature 98.8 [degF] Seema Tateholz [employer] OPERATOR Work Phone: [facility] 08-07-2024 10:44-0404 Body weight 47.27 kg Seema Tateholz [employer] CONTR[employer] OPERATOR Work Phone: [facility] 08-07-2024 10:44-0400 Heart rate 95 /min Seema Aichholz [employer] OPERATOR Work Phone: [facility] 08-07-2024 10:44-0409 Respiratory rate 18 /min Seema Aichholz [employer] OPERATOR Work Phone: [facility] 08-07-2024 10:44-0400 SaO2% (BldA) [Mass fraction] 98 % Seema Tateholz [employer] OPERATOR Work Phone: [facility] 03-07-2024 11:44-0400 Body height 147.32 cm [facility] 03-07-2024 11:44-0400 Body mass index (BMI) [Ratio] 22.8 kg/m2 [facility] 03-07-2024 11:44-0400 Body temperature 97.6 [degF] [facility] 03-07-2024 11:44-0400 Body weight 49.44 kg [facility] 03-07-2024 11:44-0400 Diastolic blood pressure 60 mm[Hg] [facility] 03-07-2024 11:44-0400 Heart rate 96 /min [facility] 03-07-2024 11:44-0400 Respiratory rate 16 /min [facility] 03-07-2024 11:44-0400 SaO2% (BldA) [Mass fraction] 86 % [facility] 03-07-2024 11:44-0400 Systolic blood pressure 102 mm[Hg] [facility] 07-20-2023 10:40-0400 Body height 147.32 cm Pratik Derrick Naderer Work Phone: [facility] [address] DO Work Phone: 07-20-2023 10:40-0400 Body mass index (BMI) [Ratio] 21.11 kg/m2 Pratik Meza Naderer Work Phone: [facility] [address] DO Work Phone: 07-20-2023 10:40-0400 Body surface area Derived from formula 1.36 m2 Pratik Derrick Naderer Work Phone: [facility] [address] DO Work Phone: 07-20-2023 10:40-0400 Body weight 45.81 kg Pratik Meza Naderer Work Phone: [facility] [address] DO Work Phone: 07-20-2023 10:40-0400 Diastolic blood pressure 66 mm[Hg] Pratik Meza Naderer Work Phone: [facility] [address] DO Work Phone: 07-20-2023 10:40-0400 Heart rate 60 /min Pratik A Naderer Work Phone: [facility] [address] DO Work Phone: 07-20-2023 10:40-0400 Systolic blood pressure 100 mm[Hg] Pratik Meza Naderer Work Phone: [facility] DO Work Phone: 02-08-2023 14:00-0400 Body height 147.32 cm Madhav Conrad Other [employer] Other 02-08-2023 14:00-0400 Body mass index (BMI) [Ratio] 22.57 kg/m2 Madhav Conrad Other [employer] Other 02-08-2023 14:00-0400 Body weight 48.99 kg Madhav Conrad Other [employer] Other 02-08-2023 14:00-0400 Diastolic blood pressure 60 mm[Hg] Madhav Conrad Other [employer] Other 02-08-2023 14:00-0400 Systolic blood pressure 105 mm[Hg] Madhav Conrad Other [facility] Other 01-12-2023 11:13-0400 Body height 147.32 cm Pratik Derrick Naderer Work Phone: [facility] [employer] DO Work Phone: 01-12-2023 11:13-0400 Body mass index (BMI) [Ratio] 21.95 kg/m2 Pratik Meza Naderer Work Phone: [facility] [employer] [address] DO Work Phone: 01-12-2023 11:13-0400 Body surface area Derived from formula 1.38 m2 Pratik Meza Naderer Work Phone: [facility] DO Work Phone: 01-12-2023 11:13-0400 Body weight 47.63 kg Pratik Meza Naderer Work Phone: [facility] [employer] [address] DO Work Phone: 01-12-2023 11:13-0400 Diastolic blood pressure 60 mm[Hg] Pratik A Naderer Work Phone: [facility] DO Work Phone: 01-12-2023 11:13-0400 Heart rate 88 /min Pratik A Naderer Work Phone: [facility] DO Work Phone: 01-12-2023 11:13-0400 Systolic blood pressure 102 mm[Hg] Pratik A Naderer Work Phone: [facility] DO Work Phone: 08-02-2022 13:32-0400 Diastolic blood pressure 62 mm[Hg] Seema Aichholz Work Phone: [facility] 08-02-2022 13:32-0400 Heart rate 63 /min Seema Aichholz Work Phone: [facility] 08-02-2022 13:32-0400 Respiratory rate 18 /min Seema Aichholz Work Phone: [facility] 08-02-2022 13:32-0400 SaO2% (BldA) [Mass fraction] 100 % Seema Aichholz Work Phone: [facility] 08-02-2022 13:32-0400 Systolic blood pressure 122 mm[Hg] Seema Aichholz Work Phone: [facility] 08-02-2022 12:26-0400 Body height 147.32 cm Seema Aichholz Work Phone: [facility] 08-02-2022 12:26-0400 Body temperature 98.3 [degF] Seema Aichholz Work Phone: [facility] 08-02-2022 12:26-0400 Body weight 48.53 kg Seema Aichholz Work Phone: [facility] 06-23-2022 15:29-0400 Body height 147.32 cm Pratik Derrick Naderer Work Phone: [facility] DO Work Phone: 06-23-2022 15:29-0400 Body mass index (BMI) [Ratio] 22.62 kg/m2 Pratik Meza Naderer Work Phone: [facility] DO Work Phone: 06-23-2022 15:29-0400 Body surface area Derived from formula 1.4 m2 Pratik Meza Naderer Work Phone: [facility] DO Work Phone: 06-23-2022 15:29-0400 Body weight 49.1 kg Pratik Meza Naderer Work Phone: [facility] DO Work Phone: 06-23-2022 15:29-0400 Diastolic blood pressure 60 mm[Hg] Pratik Meza Naderer Work Phone: [facility] DO Work Phone: 06-23-2022 15:29-0400 Heart rate 62 /min Pratik Meza Naderer Work Phone: [facility] DO Work Phone: 06-23-2022 15:29-0400 Systolic blood pressure 110 mm[Hg] Pratik Meza Naderer Work Phone: [facility] DO Work Phone: 05-11-2022 11:17-0400 Blood Pressure Location Med JENKINS [facility] 05-11-2022 11:17-0400 Diastolic blood pressure 63 mm[Hg] Med JENKINS [facility] 05-11-2022 11:17-0400 Heart rate 81 /min Med JENKINS [facility] 05-11-2022 11:17-0400 Respiratory rate 16 /min Med JENKINS [facility] 05-11-2022 11:17-0400 Systolic blood pressure 125 mm[Hg] Med JENKINS [facility] 03-24-2022 13:00-0400 Body height 147.32 cm Aba Giovanny Other [employer] Other 03-24-2022 13:00-0400 Body mass index (BMI) [Ratio] 22.28 kg/m2 Aba Giovanny Other [facility] Other 03-24-2022 13:00-0400 Body temperature 97.7 [degF] Aba Giovanny Other [facility] Other 03-24-2022 13:00-0400 Body weight 48.35 kg Aba Giovanny Other [facility] Other 03-24-2022 13:00-0400 Diastolic blood pressure 70 mm[Hg] Aba Giovanny Other [facility] Other 03-24-2022 13:00-0400 Respiratory rate 18 /min Aba Giovanny Other [facility] Other 03-24-2022 13:00-0400 SaO2% (BldA) [Mass fraction] 97 % Aba Giovanny Other [facility] Other 03-24-2022 13:00-0400 Systolic blood pressure 110 mm[Hg] Aba Giovanny Other [facility] Other 12-29-2021 11:00-0500 Body height 147.32 cm Pratik A Naderer Work Phone: [employer] [employer] DO Work Phone: 12-29-2021 11:00-0500 Body mass index (BMI) [Ratio] 22.99 kg/m2 Pratik A Naderer Work Phone: [facility] [employer] [facility] DO Work Phone: 12-29-2021 11:00-0500 Body surface area Derived from formula 1.41 m2 Pratik A Naderer Work Phone: [facility] DO Work Phone: 12-29-2021 11:00-0500 Body weight 49.9 kg Pratik A Naderer Work Phone: [facility] [employer] [address] DO Work Phone: 12-29-2021 11:00-0500 Diastolic blood pressure 60 mm[Hg] Pratik A Naderer Work Phone: [facility] [employer] [address] DO Work Phone: 12-29-2021 11:00-0500 Heart rate 68 /min Pratik A Naderer Work Phone: [facility] [employer] [address] DO Work Phone: 12-29-2021 11:00-0500 Systolic blood pressure 110 mm[Hg] Pratik Bartonerer Work Phone: [facility] DO Work Phone: 10-18-2021 14:30-0500 Body height 147.32 cm Alyssa Ginty Other [place] [employer] Other 10-18-2021 14:30-0500 Body mass index (BMI) [Ratio] 22.99 kg/m2 Alyssa Ginty Other [facility] Other 10-18-2021 14:30-0500 Body temperature 97.9 [degF] Alyssa Ginty Other [facility] Other 10-18-2021 14:30-0500 Body weight 49.9 kg Alyssa Ginty Other [facility] Other 10-18-2021 14:30-0500 Diastolic blood pressure 49 mm[Hg] Alyssa Ginty Other [facility] Other 10-18-2021 14:30-0500 Respiratory rate 18 /min Alyssa Ginty Other [facility] Other 10-18-2021 14:30-0500 SaO2% (BldA) [Mass fraction] 98 % Alyssa Ginty Other [facility] Other 10-18-2021 14:30-0500 Systolic blood pressure 136 mm[Hg] Alyssa Ginty Other [facility] Other 09-07-2021 12:15-0500 Body height 147.32 cm Carie Keith Other [employer] Other 09-07-2021 12:15-0500 Body mass index (BMI) [Ratio] 22.49 kg/m2 Carie Keith Other [facility] Other 09-07-2021 12:15-0500 Body weight 48.81 kg Carie Keith Other [facility] Other 09-02-2021 13:40-0400 Body height 147.32 cm Aba Giovanny Other [facility] Other 09-02-2021 13:40-0400 Body mass index (BMI) [Ratio] 22.53 kg/m2 Aba Giovanny Other [facility] Other 09-02-2021 13:40-0400 Body temperature 96.9 [degF] Aba Giovanny Other [facility] Other 09-02-2021 13:40-0400 Body weight 48.9 kg Aba Giovanny Other [facility] Other 09-02-2021 13:40-0400 Diastolic blood pressure 72 mm[Hg] Aba Giovanny Other [facility] Other 09-02-2021 13:40-0400 Respiratory rate 18 /min Aba Giovanny Other [facility] Other 09-02-2021 13:40-0400 SaO2% (BldA) [Mass fraction] 98 % Aba Giovanny Other [facility] Other 09-02-2021 13:40-0400 Systolic blood pressure 110 mm[Hg] Aba Giovanny Other [facility] [employer] Other Encounters Encounter Date Encounter Type Care Provider Facility Start: 10-16-2024 ambulatory Med Yanelis JENKINS Facility :[facility] Start: 08-23-2024 End: 08-26-2024 Clinisync Result Encounter Generic External Data Provider [facility] External Department Unsolicited Start: 08-23-2024 End: 08-26-2024 Clinisync Result Encounter Generic External Data Provider [facility] External Department Unsolicited Start: 08-07-2024 End: 08-07-2024 Bamboo flowsheet Seema Sutherland PLANT CONTROL OPERATOR Work Phone: [facility] Start: 08-07-2024 End: 08-10-2024 Bamboo flowsheet Seema Sutherland PLANT CONTROL OPERATOR Work Phone: [facility] Start: 08-07-2024 End: 08-10-2024 Clinisync Result Encounter Generic External Data Provider [facility] External Department Unsolicited Start: 08-07-2024 End: 08-07-2024 Office outpatient visit 25 minutes Seema Sutherland PLANT CONTROL OPERATOR Work Phone: [facility] Comment on above: Closed nondisplaced fracture of acromial end of right clavicle with routine healing, subsequent encounter (Primary Dx); Idiopathic hypoparathyroidism (CMS/HCC); Rheumatoid arthritis, unspecified (CMS/HCC); Major depressive disorder, single episode, mild (HCC) (CMS/HCC); Parkinson's disease with fluctuating manifestations, unspecified whether dyskinesia present (CMS/HCC); Hemiparesis, right (CMS/HCC); Diarrhea of presumed infectious origin Start: 08-07-2024 End: 08-07-2024 ambulatory SEEMA SUTHRELAND Not Available Start: 07-18-2024 End: 07-19-2024 Emergency department patient visit JACK VIVEROS [facility] Start: 07-18-2024 End: 07-18-2024 ambulatory [facility] Start: 06-13-2024 End: 06-13-2024 ambulatory SERGIO CABRAL Not Available Start: 04-10-2024 End: 04-10-2024 ambulatory Med JENKINS Facility:[facility] [place] Start: 04-10-2024 End: 04-10-2024 Patient encounter procedure Med JENKINS [facility] Start: 03-20-2024 End: 03-20-2024 ambulatory DESTINEY DUDLEY Not Available Start: 03-11-2024 End: 03-11-2024 ambulatory SEEMA SUTHERLAND Not Available Start: 03-07-2024 End: 03-07-2024 ambulatory [facility] Work Phone: Start: 03-07-2024 End: 03-07-2024 Patient encounter procedure [facility] Steve Work Phone: Start: 02-27-2024 [facility]-patient [facility] Work Phone: Start: 02-26-2024 End: 02-26-2024 ambulatory Med JENKINS Facility:[facility] [place] Start: 02-26-2024 End: 02-26-2024 Patient encounter procedure Med JENKINS [facility] Start: 11-13-2023 End: 12-19-2023 Pre-admission assessment Med JENKINS [facility] Start: 11-13-2023 End: 11-13-2023 ambulatory Med JENKINS Facility:[facility] [place] Start: 11-13-2023 End: 11-13-2023 Patient encounter procedure Med JENKINS [facility] Start: 10-03-2023 ambulatory Med JENKINS Facility:[facility] [place] Start: 09-27-2023 End: 09-27-2023 ambulatory Med JENKINS Facility:[facility] [place] Start: 09-27-2023 End: 09-27-2023 Patient encounter procedure Med JENKINS [facility] [place] Start: 08-16-2023 End: 08-16-2023 ambulatory Med JENKINS Facility:[facility] [place] Start: 08-16-2023 End: 08-16-2023 Lab Drop off Med JENKINS [facility] Start: 08-16-2023 End: 08-16-2023 ambulatory Med JENKINS Facility:[facility] Start: 08-16-2023 End: 08-16-2023 Patient encounter procedure Med JENKINS [facility] Start: 07-20-2023 Office outpatient vi sit 25 minutes Pratik Derrick Tadeo Work Phone: [facility] 250 DO Work Phone: Start: 07-20-2023 ambulatory Thompson Turcios Facility :[id number] Start: 07-05-2023 End: 07-05-2023 ambulatory Seema J Lancehabbeyz Facility:[facility] Start: 07-05-2023 End: 07-05-2023 ambulatory Seema J Aichholz Work Phone: [facility] Work Phone: Start: 07-05-2023 End: 07-05-2023 Patient encounter procedure Seema Aichholz Work Phone: [facility] Work Phone: Start: 05-25-2023 End: 05-25-2023 ambulatory Aba Giovanny Other [facility] Other Start: 05-25-2023 Telephone encounter Aba Giovanny [facility] Start: 05-11-2023 End: 05-11-2023 ambulatory Med Yanelis TRINA Facility:[facility] [place] [place] Start: 05-11-2023 End: 05-11-2023 Patient encounter procedure Med JENKINS [facility] Start: 05-08-2023 End: 05-08-2023 ambulatory Aba Giovanny Other [place] [employer] Other Start: 05-08-2023 Telephone encounter Aba Giovanny [facility] Start: 02-08-2023 End: 02-08-2023 ambulatory Madhav Diryy Other [place] [employer] Other Start: 02-08-2023 Patient encounter procedure Madhav Conrad [facility] Start: 01-12-2023 ambulatory Thompsonrhys Damonim Facility : Start: 01-12-2023 Office outpatient vi sit 25 minutes Pratik Derrick Tadeo Work Phone: [facility] 250 DO Work Phone: Start: 11-30-2022 End: 11-30-2022 ambulatory Aba Giovanny Other [place] [employer] Other Start: 11-30-2022 Telephone encounter Aba Giovanny [facility] Start: 11-29-2022 End: 11-30-2022 ambulatory OTILIA SUTHERLAND Facility: Start: 08-03-2022 End: 08-03-2022 ambulatory Madhav Conrad Other [place] [employer] Other Start: 08-03-2022 Telephone encounter Madhav CAMERON [facility] Start: 08-02-2022 End: 08-02-2022 ambulatory Seema Sutherland Facility:[facility] Start: 08-02-2022 End: 08-02-2022 Admission to same day surgery center Seema Sutherland Work Phone: [facility] Start: 08-02-2022 End: 08-02-2022 ambulatory Seema Sutherland Work Phone: [facility] Work Phone: Start: 07-29-2022 End: 07-29-2022 ambulatory Madhav Padillatim Facility:[facility] Start: 07-29-2022 End: 07-29-2022 Patient encounter procedure Seema Sutherland Work Phone: [facility] Start: 07-13-2022 Rx Renewal Pratik A Naderer Work Phone: [facility] 250 DO Work Phone: Start: 07-11-2022 End: 07-12-2022 ambulatory PORTABLE SAWMILL OPERATOR SEEMA SUTHERLAND Facility:[facility] Start: 06-23-2022 Office outpatient vi sit 25 minutes Pratik A Naderer Work Phone: [facility] 250 DO Work Phone: Start: 06-22-2022 End: 06-22-2022 Patient encounter procedure Med JENKINS [facility] Start: 06-15-2022 End: 06-16-[address] DONNA TURCIOS Facility:[facility] Start: 05-23-2022 End: 05-23-2022 Patient encounter procedure Med JENKINS [facility] Start: 05-17-2022 End: 05-17-2022 Lab Drop off Med JENKINS [facility] Start: 05-17-2022 End: 05-17-2022 Patient encounter procedure Med JENKINS [facility] [place] Start: 05-11-2022 End: 05-11-2022 Patient encounter procedure Med JENKINS [facility] Start: 04-20-2022 End: 04-21-2022 ambulatory OTILIA SUTHERLAND Facility:[facility] Start: 03-24-2022 End: 03-24-2022 ambulatory Aba Giovanny Other [facility] Other Start: 03-24-2022 Office outpatient vi sit 25 minutes Aba Giovanny [facility] Start: 03-23-2022 End: 03-23-2022 ambulatory RODERICK KONG Facility:[facility] Start: 03-23-2022 End: 03-24-2022 ambulatory ABA GIOVANNY Facility:[facility] Start: 03-22-2022 End: 03-23-2022 ambulatory ABA GIOVANNY [facility] [employer] [facility] Other Start: 03-22-2022 Telephone encounter Aba Giovanny [facility] Start: 12-29-2021 Office outpatient vi sit 25 minutes Pratik Tadeo Work Phone: [facility] 250 DO Work Phone: Start: 10-18-2021 End: 10-18-2021 ambulatory Alyssa Ginty Other [place] [employer] Other Start: 10-18-2021 Office outpatient vi sit 15 minutes Alyssa Weller [facility] Start: 09-07-2021 End: 09-07-2021 ambulatory Carie Keith Other [place] [employer] Other Start: 09-07-2021 Office outpatient vi sit 15 minutes Carie Keith [facility] Start: 09-02-2021 End: 09-02-2021 ambulatory Aba Giovanny Other [facility] [employer] Other Start: 09-02-2021 Office outpatient vi sit [...] encounter procedure Bean Cantu Work Phone: -[facility] [place] [facility] Start: 01-29-2018 Ambulatory [facility] Facility :[id number] Procedures Date Procedure Procedure Detail Performing Clinician Start: 08-23-2024 E COLI SHIGA TOXIN EIA Generic External Data Provider Start: 08-07-2024 Bacteria identified in Urine by [...] Start: 03-16-2012 H/O: colostomy Colostomy status Seema Koko BURKS Work Phone: Angioplasty of blood vessel Pratik A Naderer Work Phone: Appendectomy Pratik A Naderer Work Phone: Appendectomy Med JENKINS Arthroplasty of knee Pratik A Naderer Work Phone: Arthroplasty of knee Med JENKINS Comment on above: Right Bilateral tubal ligation Rodrick jamey JENKINS Cholecystectomy Pratik Bartoner er Work Phone: Colonoscopy Med JENKINS Colostomy Pratik A Naderer Work Phone: Extraction of cataract Waldemar JENKINS Comment on above: B/L H/O: artificial joint Status pos t knee replacement Seema Koko Work Phone: History of operative procedure on knee Bean Cantu Work Phone: History of operative procedure on knee Aba Giovanny Other Hysterectomy Pratik A Naderer Work Phone: Hysterectomy Med JENKINS Ligation of fallopian tube M arc A Naderer Work Phone: Operation on bladder Pratik A Naderer Work Phone: Total colonoscopy Pratik A Nad erer Work Phone: Plan of Treatment Date Care Activity Detail Author Start: 09-11-2024 End: 09-11-2024 Patient encounter procedure 09/11/2024 1:20 PM EST Office Visit [facility] [address] [place] [phone] Seema Sutherland, PLANT CONTROL OPERATOR [address] [place] [phone] [facility] Start: 08-22-2024 End: 08-22-2024 Patient encounter procedure 08/22/2024 11:00 AM EDT Office Visit [facility] [address] [place] [phone] Destiney Dudley NP [address] [place], [place] [facility] Start: 08-19-2024 End: 08-19-2024 Patient encounter procedure 08/19/2024 10:00 AM EDT Office Visit [facility] [address] [place] [phone] Seema Sutherland, PLANT CONTROL OPERATOR [address] [place] [phone] [facility] Start: 08-15-2024 End: 08-15-2024 Patient encounter procedure 08/15/2024 2:15 PM EDT Office Visit [facility] [address] [place] [phone] Candace Mullins MD [address] [place] [address] [facility] Start: 08-07-2024 End: 08-07-2024 Patient encounter procedure 08/07/2024 10:30 AM EDT Office Visit [facility] [address] [place] [phone] Seema Sutherland, PLANT CONTROL OPERATOR [address] [place] [phone] Idiopathic hypoparathyroidism (CMS/HCC); Rheumatoid arthritis, unspecified (CMS/HCC); Major depressive disorder, single episode, mild (HCC) ([facility]/HCC) [facility] Comment on above: Idiopathic hypoparathyroidism (CMS/HCC); Rheumatoid arthritis, unspecified (CMS/HCC); Major depressive disorder, single episode, mild (HCC) (CMS/HCC) Start: 06-30-2024 Influenza vaccination Influenza Vaccine (#1) [facility] Start: 07-20-2023 FUV, Provider: Donna Turcios, Status: Pen, Time: 10:20 AM FUV, Provider: Donna Turcios, Status: Pen, Time: 10:20 AM [facility] [place] 250 DO Work Phone: Start: 01-12-2023 FUV, Provider: Donna Turcios, Status: Pen, Time: 10:50 AM FUV, Provider: Donna Turcios, Status: Pen, Time: 10:50 AM [facility]: Start: 08-02-2022 [facility] Start: 07-12-2022 FUV, Provider: Donna Turcios, Status: Pen, Time: 10:50 AM FUV, Provider: Donna Turcios, Status: Pen, Time: 10:50 AM [facility] Work [facility]: Start: 02-17-2021 Bacteria identified in Urine by Culture Urine Culture [facility] Bacteria identified in Urine by Culture URINE CULTURE, ROUTINE Lab Routine 08/07/2024 10:44 PM EDT [facility] Patient Education Gastritis (DC) Omekrystle le [facility] Work Phone: Renal function 2000 panel - Serum or Plasma [facility] Immunizations Immunization Date Immunization Notes Care Provider Fa cility 07-18-2024 tetanus toxoid, redu ruby diphtheria toxoid, and acellular pertussis vaccine, adsorbed Seema Sutherland [employer]ANT CONTR[employer] OPERATOR Work Phone: [facility] 08-01-2023 Influenza, Seasonal, Quadrivalent, Adjuvanted Seema Aichholz PLANT CONTROL OPERATOR Work Phone: [facility] 08-01-2023 influenza virus vacc ine, unspecified formulation Seema Aichholz PLANT CONTROL OPERATOR Work Phone: [facility] 06-30-2023 influenza virus vacc ine, unspecified formulation Med JENKINS [facility] 07-25-2022 influenza, high dose seasonal, preservative-free Seema Aichholz PLANT CONTROL OPERATOR Work Phone: [facility] 07-25-2022 Influenza, High-dose Seasonal, Quadrivalent, Preservative Free Seema Aichholz PLANT CONTROL OPERATOR Work Phone: [facility] 09-17-2021 Pfizer-BioNTech COVI D-19 Vacc 30 MCG/0.3ML Intramuscular Suspension Pratik A Naderer Work Phone: [facility] 09-08-2021 influenza virus vacc ine, unspecified formulation Med JENKINS [facility] 09-08-2021 Influenza, injectabl e, Madin [place] Canine Kidney, preservative free, quadrivalent Pratik A Naderer Work Phone: [facility] 250 DO Work Phone: 01-05-2021 Moderna COVID-19 Vac cine 100 MCG/0.5ML Intramuscular Suspension Pratik A Naderer Work Phone: [facility] 12-07-2020 Moderna COVID-19 Vac cine 100 MCG/0.5ML Intramuscular Suspension Pratik A Naderer Work Phone: [facility] 08-11-2020 influenza virus vacc ine, unspecified formulation Med TRINA [facility] 08-11-2020 influenza, injectabl e, quadrivalent, preservative free Pratik A Naderer Work Phone: [place] [address] DO Work Phone: 08-11-2020 pneumococcal polysaccharide vaccine, 23 valent Partik A Naderer Work Phone: [facility] 06-30-2020 influenza virus vacc ine, unspecified formulation Pratik A Naderer Work Phone: [facility] 06-30-2020 influenza, seasonal, injectable Seema Lancesonnyjasmin PLANT CONTROL OPERATOR Work Phone: [facility] 07-30-2019 influenza virus vacc ine, unspecified formulation Pratik A Naderer Work Phone: [place] [address] DO Work Phone: 07-16-2019 influenza virus vacc ine, unspecified formulation Med TRINA [facility] 07-16-2019 influenza, injectabl e, quadrivalent, preservative free Pratik A Naderer Work Phone: [place] [address] DO Work Phone: 08-09-2018 influenza virus vacc ine, unspecified formulation Med JENKINS [facility] 08-09-2018 influenza, high dose seasonal, preservative-free Pratik A Naderer Work Phone: [place] [address] DO Work Phone: 07-30-2018 influenza virus vacc ine, unspecified formulation Pratik A Naderer Work Phone: [place] [address] DO Work Phone: 08-11-2017 influenza virus vacc ine, unspecified formulation Med TRINA [facility] 08-11-2017 influenza, high dose seasonal, preservative-free Pratik A Naderer Work Phone: [place] [address] DO Work Phone: 07-30-2017 influenza virus vacc ine, unspecified formulation Pratik Meza Naderer Work Phone: [place] [address] DO Work Phone: 08-02-2016 influenza virus vacc ine, unspecified formulation Med JENKINS [facility] 08-02-2016 influenza, high dose seasonal, preservative-free Pratik A Naderer Work Phone: [place] [address] DO Work Phone: 06-30-2016 influenza virus vacc ine, unspecified formulation Pratik Meza Naderer Work Phone: [place] [address] DO Work Phone: 01-08-2016 pneumococcal conjuga te vaccine, 13 valent Pratik A Naderer Work Phone: [facility] 07-21-2015 influenza virus vacc ine, unspecified formulation Pratik Meza Naderer Work Phone: [place] [address] DO Work Phone: 07-21-2015 pneumococcal polysaccharide vaccine, 23 valent Pratik A Naderer Work Phone: [place] [address] DO Work Phone: 07-17-2015 influenza virus vacc ine, unspecified formulation Med TRINA [facility] 07-17-2015 influenza, high dose seasonal, preservative-free Seema Koko PLANT CONTROL OPERATOR Work Phone: [facility] 07-17-2014 influenza virus vacc ine, unspecified formulation Med TRINA [facility] 07-17-2014 influenza, high dose seasonal, preservative-free Pratik A Naderer Work Phone: [place] [address] DO Work Phone: 08-07-2012 influenza virus vacc ine, unspecified formulation Med JENKINS [facility] 08-07-2012 influenza, seasonal, injectable, preservative free Pratik A Naderer Work Phone: [place] [address] DO Work Phone: 06-04-2012 tetanus toxoid, redu ruby diphtheria toxoid, and acellular pertussis vaccine, adsorbed Pratik A Naderer Work Phone: [facility] 07-30-2011 seasonal influenza, intradermal, preservative free Seema Sutherland PLANT CONTROL OPERATOR Work Phone: [facility] 09-16-2010 influenza virus vacc ine, unspecified formulation Med [employer] [facility] 09-16-2010 influenza, seasonal, injectable Pratik A Naderer Work Phone: [place] [address] DO Work Phone: 08-14-2010 pneumococcal polysaccharide vaccine, 23 valent Seema Sutherland PLANT CONTROL OPERATOR Work Phone: [facility] Payers Date Payer Category Payer Private Health Insurance [id number] 2023 Private Health Insurance I [id number] 2022 Self-pay [id number] 2005 Medicare [id number] 1959 Medicare [id number] 1959 Unknown [id number] 1940 Unknown [id number] 2.16.84 0.1.990932.3.579.2.593 1940 Unknown [id number] 2.16.84 0.1.934250.3.579.2.593 1940 Unknown [id number] 2.16.84 0.1.988033.3.579.2.593 1940 Unknown [id number] 2.16.84 0.1.803559.3.579.2.593 1940 Unknown [id number] 2.16.84 0.1.587636.3.579.2.593 1940 Unknown [id number] 2.16.84 0.1.230288.3.579.2.593 1940 Unknown [id number] 2.16.84 0.1.426594.3.579.2.593 1940 Unknown [id number] 2.16. 840.1.423644.3.579.2.356 1940 Unknown [id number] 2.16. 840.1.226165.3.579.2.356 1940 Unknown [id number] 2.16.8 40.1.403874.3.579.2.727 1940 Unknown [id number] 2.16.8 40.1.969423.3.579.2.727 1940 Unknown [id number] 2.16.8 40.1.377393.3.579.2.727 1940 Unknown [id number] 2.16.8 40.1.904643.3.579.2.727 1940 Unknown [id number] 2.16.8 40.1.278344.3.579.2.727 194 Unknown [id number] 2.16.8 40.1.991095.3.579.2.727 194 Unknown [id number] 2.16.8 40.1.983217.3.579.2.727 194 Unknown [id number] 2.16.8 40.1.474027.3.579.2.727 1940 Unknown [id number] 2.16.8 40.1.732650.3.579.2.1244 1940 Unknown [id number] 2.16.8 40.1.116396.3.579.2.1286 1940 Unknown [id number] 2.16.8 40.1.484303.3.579.2.1286 194 Unknown [id number] 2.16.8 40.1.179165.3.579.2.1286 1940 Unknown [id number] 2.16.8 40.1.310092.3.579.2.1286 1940 Unknown [id number] 2.16.8 40.1.606608.3.579.2.1286 1940 Unknown [id number] 2.16.84 0.1.761693.3.579.2.1259 1940 Unknown [id number] 2.16.84 0.1.298080.3.579.2.1259 1940 Unknown [id number] 2.16.84 0.1.011950.3.579.2.1259 1940 Unknown [id number] 2.16.84 0.1.530422.3.579.2.1259 Medicare [id number] Unknown [id number] Unknown Unknown [id number] 2.16.8 40.1.431832.3.579.2.531 Unknown [id number] 2.16.8 40.1.537425.3.579.2.531 Unknown [id number] 2.16.8 40.1.132332.3.579.2.531 Social History Date Type Detail Facility Start: 02-17-2021 End: 07-11-2023 Tobacco smoking status NVIS Never smoked tobacco (finding) [facility] Start: 1940 Sex Assigned At Female F [facility] Start: 03-11-2024 End: 06-13-2024 No alcohol use No alcohol use [facility] Start: 03-11-2024 End: 06-13-2024 Sex Assigned At [facility] Other Tobacco smoking status Never [facility] Start: 07-11-2023 Tobacco use and exposure Smokeless tobacco non-user [facility] Start: 06-13-2024 End: 08-07-2024 Alcoholic beverage intake Lifetime non-drinker (finding) [facility] Start: 1940 Sex assigned at Not on file N [facility] Medical Equipment Procedure Code Equipment Code Equipment [...] knee, total, minimally invasive Orthopaedic cement, non-medicated ()[id number] FDA Start: 03-09-2021 Arthroplasty, knee, total, minimally invasive Uncoated knee femur prosthesis, metallic ()[id number] FDA Start: 03-09-2021 Arthroplasty, knee, total, minimally invasive Polyethylene patella prosthesis ()[id number] FDA Start: 03-09-2021 Arthroplasty, knee, total, minimally invasive Tibial insert ()[id number] FDA Start: 03-09-2021 Arthroplasty, knee, total, minimally invasive Uncoated knee tibia prosthesis, metallic ()[id number] FDA Start: 03-09-2021 Arthroplasty, knee, total, minimally [...] Facility 04-10-2024 Functional Status N/A [facility] 02-26-2024 Functional Status N/A [facility] 09-27-2023 Functional Status N/A [facility] 08-16-2023 Functional Status N/A [facility] 05-11-2023 Functional Status N/A [facility] 06-22-2022 Functional Status N/A [facility] 05-19-2022 Functional Status N/A [facility] 05-11-2022 Functional Status N/A [facility] Clinical Notes 09-02-2021 to 08-07-2024 Seema Sutherland NP - 08/07/2024 12:05 PM Karen Sutherland NP - 08/07/2024 12:04 PM Karen Sutherland NP - 08/07/2024 12:02 PM EDTHANTONIA GARZON - 08/07/2024 10:30 AM EDT Note Date & Type Note Facility 08-07-2024 History of Present illness Narrative Associated Problem(s): Diarrhea of presumed infectious origin Possible c diff d/t recent UTI with atb treatment Dd: viral illness Go to ER, for evaluation dehydration Associated Problem(s): Closed fracture of acromial end of right clavicle Reviewed xray, will need ortho Associated Problem(s): Parkinson's disease ([facility]) Cont with neuro Possible worsening tremor d/t [...] fracture, had xray and CT head/neck at [facility], sent home with sling no ortho referral [...] unspecified vessel or lesion type, unspecified whether enterprise or transplanted heart ([facility]) COVID-19 vaccine administered x2 moderna CVA (cerebral vascular accident) ([facility]) 11/2016 Failure to thrive in adult Female cystocele History of CVA (cerebrovascular accident) Hypocalcemia Hypokalemia Hypothyroidism (acquired) ([facility]) Hypothyroidism (acquired) ([facility]) 10/21/2023 Hypothyroidism ([facility]) Impaired mobility Inguinal hernia Left knee pain, unspecified chronicity Myocardial infarct ([facility]) 2015, 2016 Nephrolithiasis Paresthesia Parkinson disease ([facility]) Pressure sore on buttocks Senile debility Shoulder [...] Items Addressed This Visit Rheumatoid arthritis, unspecified ([facility]/HCC) Managed by Rheumatology Parkinson's disease ([facility]) - Primary Cont with neuro Possible worsening tremor d/t freq diarrhea and unable to absorb meds? Discussion with pt and spouse about possible temporary NH placement for strengthening?? Major depressive disorder, single episode, mild (HCC) ([facility]) No current antidepressant meds Idiopathic hypoparathyroidism ([facility]) Follow with endo Hemiparesis, right ([facility]) Closed fracture of acromial end of right clavicle Reviewed xray, will need ortho Diarrhea of presumed infectious origin Possible c diff d/t recent UTI with atb treatment Dd: viral illness Go to ER, for evaluation dehydration Associated Problem(s): Major depressive disorder, single episode, mild (HCC) ([facility]) No current antidepressant meds Associated Problem(s): Rheumatoid arthritis, unspecified (CMS/HCC) Managed by Rheumatology Associated Problem(s): Idiopathic hypoparathyroidism (CMS/HCC) Follow with endo documented in this encounter [facility] 04-10-2024 Hospital Discharge instructions [...] nerve stimulation). ?For women, using a medical billing associate to prevent urine leaks. This is a [...] right after experiencing incontinence. General instructions Take kjgq-kvw-qkaxues and prescription medicines only as told by [...] important. Where to find more information National [place] of Diabetes and Digestive and Kidney Diseases: www.niddk.nih.gov [employer] [employer]: www.urologyhealth.org Contact a health care [...] provider. Document Revised: 05/21/2021 Document Reviewed: 05/21/2021 [employer] Patient Education 2022 [employer]. Follow Up Care 02/26/2024 13:52:27 With:Med JENKINS MD, URL Address: [address] [place] [phone]- When: Unknown [facility] 02-26-2024 Hospital Discharge instructions Patient Education [...] Care 11/13/2023 15:16:14 With:Med JENKINS Address: [address] [place] [phone]- Business (1) When:6 weeks Comments:Call for followup appointment, with a bladder scan at that visit to check for bladder emptying. [facility] 02-26-2024 Note [id number] [facility] 02-26-2024 Note Cystoscopy with Boto x injection [...] you have a fever over 100 degrees. [facility] 11-13-2023 Evaluation + Plan note Extrac db from: Title:HOPD visit Author:Med JENKINS MD Date: 11/13/23 Impression and Plan Assessment and Plan: Diagnosis: Acute UTI (WCO01-YK N39.0, Working, Medical), Mixed incontinence urge and stress (COH72-NO N39.46, Working, Medical), Overactive bladder (EED00-UX N32.81, Working, Medical). Additional Plan of Care [...] is also instructed to follow-up with her triage technician regarding some heart rate issues. She should [...] Appointments Appointment Date:12/18/2023 03:15:00 PM Scheduled Provider: Location:[facility] Appointment Type:Urology FT Diagnostic Tests Pending * Urine Culture 11/13/23 [facility]11-29-2023 Hospital Discharge instructions Follow Up Care 09/27/2023 13:27:49 With:Med JENKINS Address: [address] [place] [phone]- Business (1) When: Unknown Comments:As you know [...] probiotics locally and the cranberry is self-explanatory.My central scheduler will call you to get you back on the books for the Botox injection. [facility]11-29-2023 Hospital Discharge instructions Patient Education 09/27/2023 13:13:52 [...] nerve stimulation). ?For women, using a medical billing associate to prevent urine leaks. This is a [...] right after experiencing incontinence. General instructions Take wvcc-yjn-yhmqbgi and prescription medicines only as told by [...] important. Where to find more information National [employer] of Diabetes and Digestive and Kidney Diseases: www.niddk.nih.gov [employer]: www.urologyhealth.org Contact a health care [...] provider. Document Revised: 05/21/2021 Document Reviewed: 05/21/2021 [employer] Patient Education 2022 [employer]. Follow Up Care 08/16/2023 10:31:24 With:TRINA WATSON, Med Hilario, URL Address: [address] [place], [place] [id number] When: Unknown [facility] 10-18-2023 Hospital Discharge instructions Patient Education [...] Treatment for this condition includes: Antibiotic medicine. Djfm-wpw-tkxlxvs medicines to treat discomfort. Drinking enough water [...] Follow these instructions at home: Medicines Take wcsm-dzq-waissyt and prescription medicines only as told by [...] provider. Document Revised: 05/28/2021 Document Reviewed: 05/28/2021 [employer] Patient Education 2022 [employer] Daily [employer]. Follow Up Care 05/11/2023 08:07:36 With:TRINA WATSON, Med Hilario, URL Address: [address] [place] [address]- When: Unknown [facility] 07-27-2023 Evaluation note* Encounter Date Diagnosis Assessment Notes Treatment Notes Treatment Clinical Notes Apr, Hypomagnesemia (ICD-10 - E83.42) [facility] Other 07-13-2023 Hospital Discharge instructions Patient Education [...] Up Care 04/12/2023 15:40:50 With:Med JENKINS Address: [address] [place] [address] [facility] (1) When:3 months Comments:Call for followup appointment, with bladder scan checking for residual urine at that visit. [facility]07-13-2023 Note [id number]:[email or web address] 05-11-2023 NoteCystoscopy with Botox injection ? Voiding [...] if you have a fever over 100 degrees.[facility] 05-08-2023 Evaluation note* Encounter Date Diagnosis Assessment Notes Treatment Notes Treatment Clinical Notes Apr, Hypomagnesemia (ICD-10 - E83.42) [facility] Other 04-12-2023 Evaluation note* Encounter Date Diagnosis Assessment Notes Treatment Notes Treatment Clinical Notes Jan, Early satiety (ICD-10 - R68.81) Jan, Gastritis (ICD-10 - K29.70) Continue Omeprazole as directed Rto 1 yr Jan, Borborygmi (ICD-10 - R19.8) [facility] Other 10-04-2022 Procedure [facility]08-24-2022 Hospital Discharge instructions Patient Education 06/22/2022 13:02:36 [...] nerve stimulation). For women, using a medical billing associate to prevent urine leaks. This is a [...] right after experiencing incontinence. General instructions Take upam-aef-qswsnob and prescription medicines only as told by [...] 11/23/2005 Document Revised: 10/26/2018 Document Reviewed: 01/25/2018 [employer] Patient Education 2020 [employer] Daily [employer]. 06/22/2022 13:02:35 Kegel Exercises Kegel Exercises Kegel [...] 10/02/2013 Document Revised: 06/05/2019 Document Reviewed: 06/05/2019 [employer] Patient Education 2020 [employer] Daily [employer]. Follow Up Care 05/23/2022 15:12:51 With:TRINA WATSON, Med Hilario, URL Address: When:Within 6 Month(s) Comments:w/PVR [facility] 07-25-2022 Hospital Discharge instructions Patient Education [...] Care 05/11/2022 11:39:36 With:Med JENKINS Address: [address] [phone]- Business (1) When:2 to 4 weeks Comments:Call for followup appointment, and a bladder scan to check bladder emptying will be performed at that visit. [facility]07-13-2022 Hospital Discharge instructions Patient Education 05/11/2022 11:28:58 [...] fried and sweet foods. General instructions Take xhfp-lrm-bpmpttk and prescription medicines only as told by [...] 08/12/2010 Document Revised: 02/06/2020 Document Reviewed: 11/01/2018 [employer] Patient Education 2020 The Daily [employer]. Follow Up Care 12/27/2021 11:50:32 With:TRINA WATSON, Med Hilario, URL Address: [facility] [place] [address] When: Unknown [facility] 05-26-2022 Evaluation note* Encounter Date Diagnosis [...] of cardiac arrest due to the hypokalemia [facility] Other 12-20-2021 Evaluation note* Encounter Date Diagnosis Assessment Notes Treatment Notes Treatment Clinical Notes Sep, Abnormal skin growth (ICD-10 - D49.2) Will send to derm for further evaluation and treatment. Advised patient that area will likely need to be removed. Message sent to personnel coordinator to schedule and make appointment for patient. Area covered with silvadine cream in office with non adherent telfa and coban. Advised patient not to pick at area. Immediate evaluation in ER for signs of infection, including, fever, red streaking, foul odor, any new or worsening symptoms. Patient verbalizes understanding and is agreeable with treatment plan [facility] Other 11-09-2021 Evaluation note* Encounter Date Diagnosis Assessment Notes Treatment Notes Treatment Clinical Notes Aug, Arthritis of left knee (ICD-10 - M17.12) Patient is progressing well. Continue physical therapy exercises and TKA precautions. Instructed patient to call with any questions or concerns. Aug, History of total left knee replacement (ICD-10 - Z96.652) [facility] Other 11-04-2021 Evaluation note* Encounter Date Diagnosis [...] possibilities that may be hypomagnesemia related hypoparathyroidism. [facility] Other Evaluation + Plan note Future Appointments Appointment Date:05/16/2022 10:00:00 AM Scheduled Provider: Location:[facility] Appointment Type:Urology CALL [facility] FT Appointment Date:05/23/2022 02:30:00 PM Scheduled Provider: Location:[facility] Appointment Type:Urology FT [facility] Evaluation + Plan note Future Appointments Appointment Date:05/23/2022 02:30:00 PM Scheduled Provider: Location:[facility] Appointment Type:Urology FT [facility] Evaluation + Plan note Future Appointments Appointment Date:05/23/2022 02:30:00 PM Scheduled Provider: Location:[facility] Appointment Type:Urology FT Diagnostic Tests Pending * [facility] Future Appointments Appointment Date:06/22/2022 11:45:00 AM Scheduled Provider:Med JENKINS MD Location:[facility] App[facility]ment [facility] Future Appointments Appointment Date:12/14/2022 11:15:00 AM Scheduled Provider:Med JENKINS MD Location:[facility] Appointment Type:URO Office Visit [facility] Evaluation + Plan note Future Appointments Appointment Date:08/16/2023 09:30:00 AM Scheduled Provider:Med JENKINS MD Location:[facility] Appointment [facility] Future Appointments Appointment Date:09/27/2023 01:00:00 PM Scheduled Provider:Med JENKINS MD Location:[facility] Appointment Type:URO Office Visit Diagnostic Tests Pending * Urine [facility] Future Appointments Appointment Date:09/27/2023 01:00:00 PM Scheduled Provider:Med JENKINS MD Location:[facility] Appointment Type:URO Office Visit [facility] Evaluation + Plan note Future Appointments Appointment Date:10/31/2023 09:45:00 AM Scheduled Provider: Location:[facility] Appointment Type:Urology CALL PAT FT Appointment Date:11/13/2023 02:45:00 PM Scheduled Provider: Location:[facility] Appointment Type:Urology FT [facility] Evaluation + Plan note Future Appointments Appointment Date:04/10/2024 10:00:00 AM Scheduled Provider: Location:[facility]ment [facility] Future Appointments Appointment Date:10/16/2024 01:00:00 PM Scheduled Provider:Med JENKINS MD Location:[facility] Appointment Type:URO Office Visit [facility] Evaluation noteNo Assessments Information Available [facility] CtrEvaluation noteNo InformationNort Highlight[employer] Other Evaluation noteNo assessment information available [facility] Work Phone: evaluation note* Diagnosis Onset Date Resolution Status Hypomagnesemia acute CAD (coronary artery disease) chronic Hyperlipidemia chronic Hypokalemia resolved [facility] Work Phone: Evaluation note* Diagnosis Closed nondisplaced fracture of acromial [...] HealthcareHistory and physical note Author Madhav Conrad [facility] August 02, 2022 12:52pm Note Date/Time August 02, 2022 12 :52pm [facility] [address] [place] [address] Gastroenterology H&P Signed Patient: Narciso Velasquez MR#: [id number] : 1940 Acct:[id number] Age/Sex: 81 / F Adm Date: 2 Loc: Room: Type: [facility] Attending Dr: Madhav Conrad MD Copies to: MD Seema Ribera NP-Vijay~ Date of Service: 08/02/2022 HISTORY & PHYSICAL: [...] signed by Madhav Conrad MD> 08/02/22 1252 [facility] Work Phone: History general [...] heart attack 11/2016 Hospitalization History SEE ABOVE [facility] Other Hospital course Narrative No data available for this section [facility] Hospital Discharge instructions No data available for this section [facility] Hospital Discharge instructions Additional Instructions DISCHARGE [...] Follow up with PCP. - Office number [phone].[facility] Work Phone: Progress note No data available for this section [facility] Summary Purpose Family History Relationship Condition [...] Recorded Date/ Time Advance Directives No January 24, 2 018 1:55pm Chief Complaint and Reason for [...] growth (D49.2) Referral Organization [facility] Referring Provider First Name Alyssa Referring Provider Last Name Janee Referring Provider Specialty Nurse Pract itioner Referred Organization [facility] Referred Provider Csatillo Mcgowan Thomas Referred Address ,[place], [place],[address] Referred Provider Specialty Dermatology Referral Priority Routine General Notes Xochitl Craig 021 02:26:04 PM >Received today and sent P2P even though the notes are not locked Additional Source Comments INFORMATION SOURCE (unrecogn ized section and content) DATE CREATED AUTHOR 04/19/2018 [facility] DATE CREATED AUTHOR AUTHOR'S ORGANIZ ATION [facility] DATE CREATED AUTHOR AUTHOR'S ORGANIZ ATION 12/01/2022 [facility] DATE CREATED AUTHOR AUTHOR'S ORGANIZ ATION 07/15/2023 [facility] DATE CREATED AUTHOR AUTHOR'S ORGANIZ ATION 07/22/2023 [facility] DATE CREATED AUTHOR AUTHOR'S ORGANIZ ATION 07/22/2023 [facility] DATE CREATED AUTHOR AUTHOR'S ORGANIZ ATION 04/13/2024 [facility] DATE CREATED AUTHOR AUTHOR'S ORGANIZ ATION 07/20/2024 [facility] DATE CREATED AUTHOR AUTHOR'S ORGANIZ ATION 07/21/2024 [facility] DATE CREATED AUTHOR AUTHOR'S ORGANIZ ATION 08/09/2024 [facility] EPIC REASON FOR VISIT (unrecogniz [...] Active Curtis Alcocer MD Attending Provider Active Cow Puncher Relationship Specialty Start Date End Date Pratik Tadeo MD [address] [place] [phone] PCP - General Family Medicine 12/27/23 Seema Sutherland NP [address] [place] [phone] Referring Physician Nurse Practitioner 05/12/23 Sergio Cabral DO [address] [place] [address] Referring Physician Neurology 12/26/23 Cow Puncher Relationship Specialty Start Date End Date Pratik Tadeo MD [address] [place] [phone] PCP - General Family Medicine 12/27/23 Seema Sutherland, VITALIY [address] [place] [phone] Referring Physician Nurse Practitioner 05/12/23 Sergio Cabral DO [address] [place] [address] Referring Physician Neurology 12/26/23 Cow Puncher Relationship Specialty Start Date End Date Pratik Tadeo MD [address] [place] [phone] PCP - General Family Medicine 12/27/23 Seema Sutherland, VITALIY [address] [place] [phone] Referring Physician Nurse Practitioner 05/12/23 Sergio Cabral DO [address] [place] [address] Referring Physician Neurology 12/26/23 Cow Puncher Relationship Specialty Start Date End Date Pratik Tadeo MD [address] [place] [phone] PCP - General Family Medicine 12/27/23 Seema Sutherland NP [address] [place] [address] Referring Physician Nurse Practitioner 05/12/23 Sergio Cabral DO [address] [place] [address] Referring Physician Neurology 12/26/23 Goals (unrecognized section [...] BE BASED ON THE PRIMARY CLINICAL RECORDS. [employer] [facility]. provides no warranty or guarantee of the accuracy or completeness of information in this document.
--- NOTE | 2024-09-24 18:17 | PC.NURSE ---
Patient has parkinson's disease and is here because I'm shaking . Denies any other complaints.
[2024-09-24 18:31] LABS: Basophils Absolute Auto 0.1 10^3/uL (0.0-0.1); Eosinophils Absolute Auto 0.1 10^3/uL (0.0-0.7); Eosinophils Percent Auto 2.1 % (0.9-7.0); Hematocrit 30.1 % (36.0-48.0); Hemoglobin 9.5 g/dL (12.0-16.0); Immature Granulocytes Abs Auto 0.09 10^3/uL (0.00-0.03); Immature Granulocytes Pct Auto 1.5 % (0.0-0.5); Lymphocytes Absolute Auto 1.3 10^3/uL (1.2-3.8); Lymphocytes Percent Auto 21.6 % (20.5-60.0); Mean Corpuscular HGB Conc 31.6 g/dL (29.9-35.2); Monocytes Absolute Auto 0.6 10^3/uL (0.3-0.8); Monocytes Percent Auto 10.2 % (1.7-12.0); Neutrophils Absolute Auto 3.9 10^3/uL (1.4-6.5); Neutrophils Percent Auto 63.6 % (43.0-75.0); PCO2 VBG 43.1 mmHg (40.0-52.0); Platelet Count 312 10^3/uL (150-450); Red Blood Count 3.17 10^6/uL (4.20-5.40); Red Cell Distribution Width 14.3 % (11.0-15.0); White Blood Count 6.2 10^3/uL (4.0-11.0); pH VBG 7.442 (7.330-7.430)
--- NOTE | 2024-09-24 18:31 | ED.GENADUL1 ---
HPI HPI - General Adult General Chief complaint: Weakness Stated complaint: WEAK Time Seen by Provider: 09/24/24 18:05 Source: patient and family Mode of arrival: Wheelchair History of Present Illness HPI narrative: Patient is a 83-year-old female who is presenting to the ER with chief complaint shaking episodes that started yesterday and are slowly progressively getting worse. Patient does have a history of Parkinson's. Patient lives at home with her . Patient gets around at home with a walker. Patient has felt slightly lightheaded and dizzy, no headache. No neck pain. No chest pain or shortness of breath. Patient has no nausea or vomiting. No bowel or bladder changes. Patient is compliant with her medications. Patient has been eating and drinking lightly, but no significant changes. Patient does not admit to be over anxious about anything acute at home. Patient's PCP is nurse brook Stephenson at the [facility]. Patient's neurologist is Dr. Cabral. Patient brought her in this evening because of uncontrollable shaking with her hands. Patient has a dressing to her right arm and right leg that is changed by nurses that come in for home health care every 3 days. Patient will have the dressings changed again tomorrow, they were changed 2 days ago to her right arm and right leg. Patient had small skin tears that are healing. All systems are negative except as noted/marked. All systems reviewed and otherwise negative. Nurses note and vital signs reviewed and patient is not hypoxic. General: The patient appears mild distress secondary to increased shaking to the patient's arms/hands. Patient is resting uncomfortably on cart. Patient is not toxic, lethargic, or listless. Patient is admittedly anxious. Patient says that she feels like my head is going to fall off or I am afraid I will pass out Skin: Warm, dry, no pallor noted. There is no rash noted. No petechiae, purpura. Healing skin tears to the right forearm and right mejia, no secondary signs of infection. Wound dressing is in place. It was taken down and then replaced. Head: Normocephalic, atraumatic Eye: Normal conjunctiva, no drainage, EOMI. PERRL Ears, Nose, Mouth, and Throat: oral mucosa is moist. Nares patent. Mouth without vesicles. Cardiovascular: Regular Rate and Rhythm, no murmur, gallop, rub Respiratory: Patient is in no distress, no accessory muscle use, lungs are clear to auscultation, no wheezing, rales or rhonchi Back: non-tender, no CVA tenderness bilaterally to percussion. No CT LS midline pain GI: no tenderness to palpation, no masses appreciated. No rebound, guarding, or rigidity noted. No distention Musculoskeletal: Patient has full range of motion of all of the extremities, but has baseline shaking to her hands secondary to Parkinson's. Patient has increased shaking to both hands when I walk into the room. I did have patient sit up, and she is holding the railing with her left hand and also holding her 's right hand., Then when she let go of the railing and her 's hand and lay back down, the shaking slowly started again. There is a question whether there is involuntary versus voluntary increase of shaking to her hands. Patient is admittedly anxious. The moderate amount of shaking her hands stopped, no motor, sensory, or focal neurological deficits Neurological: A&O x4, normal speech Psychiatric: Cooperative; patient is minimally anxious, no suicidal homicidal Related Data Home Medications ?Medication ?Instructions ?Recorded ?Confirmed atorvastatin 20 mg tablet 20 mg PO DAILY 08/07/24 08/23/24 gabapentin 300 mg capsule 600 mg PO BID 08/07/24 08/23/24 pramipexole 0.25 mg tablet 0.25 mg PO TID 08/07/24 08/23/24 trihexyphenidyl 2 mg tablet 2 mg PO BID 08/07/24 08/23/24 oxcarbazepine 150 mg tablet 150 mg PO BID 08/23/24 08/23/24 Previous Rx's ?Medication ?Instructions ?Recorded acetaminophen 325 mg tablet 650 mg (2 x 325 mg) PO Q4H PRN 08/28/24 Pain 1-4 15 days #30 tabs calcium carbonate 600 mg PO BID 10 days #20 tabs 08/28/24 food supplemt, lactose-reduced 1 ea PO BID 30 days #60 mL 08/28/24 0.04 gram-1.05 kcal/mL oral liquid (Ensure Original) levofloxacin 500 mg tablet 500 mg PO Q48H 5 days #3 tabs 08/28/24 levothyroxine 75 mcg tablet 100 mcg (1.3333 x 75 mcg) PO DAILY 08/28/24 30 days #30 tabs potassium chloride 10 mEq 20 meq (2 x 10 mEq) PO TIDWM 10 08/28/24 tablet,extended release(part/cryst) days #60 tabs Allergies Allergy/AdvReac Type Severity Reaction Status Date / Time No Known Drug Allergies Allergy Verified 08/07/24 11:58 Opioid HPI Opioid Management Most Recent Opioid Data: Last Pain Scale 0 08/28/24 07:29 08/28/24 Last Pain Intensity 0 08/26/24 13:56 08/26/24 Last ORT Total Score 0 08/23/24 12:43 08/23/24 Last ORT Risk Category Low Risk 08/23/24 12:43 08/23/24 PFSH PFSH Medical History (Updated 09/24/24 @ 18:39 by John Yeung MD) Hypothyroid ?E03.9 - Hypothyroidism, unspecified (ICD-10) Chronic pain disorder ?G89.4 - Chronic pain syndrome (ICD-10) HLD (hyperlipidemia) ?E78.5 - Hyperlipidemia, unspecified (ICD-10) CAD (coronary artery disease) ?I25.10 - Atherosclerotic heart disease of [place] coronary artery without angina pectoris (ICD-10) Parkinson disease ?G20.A1 - Parkinson's disease without dyskinesia, without mention of fluctuations (ICD-10) High cholesterol ?E78.00 - Pure hypercholesterolemia, unspecified (ICD-10) CVA (cerebral vascular accident) ?I63.9 - Cerebral infarction, unspecified (ICD-10) Surgical History (Updated 08/07/24 @ 13:59 by Melissa San RN) History of bowel resection ?Z90.49 - Acquired absence of other specified parts of digestive tract (ICD-10) H/O heart artery stent ?Z95.5 - Presence of coronary angioplasty implant and graft (ICD-10) Family History (Updated 08/07/24 @ 15:45 by Tanvi Boles) Father Family history of myocardial infarction Social History (Updated 08/07/24 @ 15:45 by Tanvi Boles) Within the past year, how often did you have a drink containing alcohol: never Within the past year, how often did you have six or more drinks on one occasion: never Score interpretation: A score less than 3 is consistent with normal alcohol consumption. Smoking status: Never smoker Second hand tobacco smoke exposure: No Non-prescribed substance use: denies use Previous occupational history: Retired from [employer] Known occupational exposures/hazards: No Highest level of school completed/degree received: high school graduate Are you now , , , , never or living with a partner: In a typical week, how many times do you talk on the telephone with family, friends, or neighbors: 3 or more times per week How often do you get together with friends or relatives: 3 or more times per week How often do you attend judaism or oriental orthodox services: 4 or more times per year Do you belong to any clubs or organizations such as judaism groups unions, [employer] or athletic groups, or school groups: no Total score: 3 Score interpretation: A score of greater than or equal to 2 indicates the lowest level of social isolation. Little interest or pleasure in doing things: not at all Feeling down, depressed, or hopeless: not at all Feel stressed/tense/nervous/anxious/difficulty sleeping: not at all Due to disability, difficulty making decisions: No Do you think of yourself as: straight/heterosexual Gender Identity: female Exam Constitutional Vital Signs, click to edit/add: Last Vital Signs Temp 98.3 F 09/24/24 17:48 Pulse 127 H 09/24/24 17:48 Resp 18 09/24/24 17:48 BP 137/76 09/24/24 17:48 Pulse Ox 98 09/24/24 17:48 O2 Del Method Room Air 09/24/24 17:48 Course Vital Signs Vital signs: Vital Signs Temperature 98.3 F 09/24/24 17:48 Pulse Rate 127 H 09/24/24 17:48 Respiratory Rate 18 09/24/24 17:48 Blood Pressure 137/76 09/24/24 17:48 Pulse Oximetry 98 09/24/24 17:48 Oxygen Delivery Method Room Air 09/24/24 17:48 Temperature 98.3 F 09/24/24 17:48 Pulse Rate 127 H 09/24/24 17:48 Respiratory Rate 18 09/24/24 17:48 Blood Pressure 137/76 09/24/24 17:48 Pulse Oximetry 98 09/24/24 17:48 Oxygen Delivery Method Room Air 09/24/24 17:48 Medical Decision Making MDM Narrative Medical decision making narrative: Patient has an IV established, lab work has been ordered. Patient was given a dose of 0.5 mg of IV Ativan. Patient did not call the PCP or neurologist Dr. Cabral yesterday or today. Patient is compliant with her medications and Parkinson's medications. Patient is fearful that her head will fall off or that she may pass out. 1899 patient case will be transition to Dr. Weinberg for reevaluation after IV fluids, Ativan, lab testing, and final disposition. Lab Data Labs: Lab Results 09/24/24 Range/Units 18:23 WBC 6.2 (4.0-11.0) 10^3/uL RBC 3.17 L (4.20-5.40) 10^6/uL Hgb 9.5 L (12.0-16.0) g/dL Hct 30.1 L (36.0-48.0) % MCV 95.0 (81.0-99.0) fL MCH 30.0 (26.7-34.0) pg MCHC 31.6 (29.9-35.2) g/dL RDW 14.3 (11.0-15.0) % Plt Count 312 (150-450) 10^3/uL MPV 9.0 L (9.5-13.5) fL Neut % (Auto) 63.6 (43.0-75.0) % Lymph % (Auto) 21.6 (20.5-60.0) % Emmons % (Auto) 10.2 (1.7-12.0) % Eos % (Auto) 2.1 (0.9-7.0) % Baso % (Auto) 1.0 (0.2-2.0) % Neut # (Auto) 3.9 (1.4-6.5) 10^3/uL Lymph # (Auto) 1.3 (1.2-3.8) 10^3/uL Emmons # (Auto) 0.6 (0.3-0.8) 10^3/uL Eos # (Auto) 0.1 (0.0-0.7) 10^3/uL Baso # (Auto) 0.1 (0.0-0.1) 10^3/uL Abs Immat Gran (auto) 0.09 H (0.00-0.03) 10^3/uL Imm/Tot Granulo (auto) 1.5 H (0.0-0.5) % VBG pH 7.442 H (7.330-7.430) VBG pCO2 43.1 (40.0-52.0) mmHg Discharge Plan Discharge Chief Complaint: Weakness Clinical Impression: Coarse tremors, Situational anxiety Prescriptions / Home Meds: No Action oxcarbazepine 150 mg tablet 150 mg PO BID acetaminophen 325 mg Tablet 650 mg PO Q4H PRN (Reason: Pain 1-4) 15 Days Qty: 30 0RF calcium carbonate 600 mg calcium (1,500 mg) Tablet 600 mg PO BID 10 Days Qty: 20 0RF potassium chloride 10 mEq Tablet,Er Particles/Crystals 20 meq PO TIDWM 10 Days Qty: 60 0RF Ensure Original 0.04-1.05 gram-kcal/mL Liquid 1 ea PO BID 30 Days Qty: 60 0RF levofloxacin 500 mg tablet 500 mg PO Q48H 5 Days Qty: 3 0RF levothyroxine 75 mcg tablet 100 mcg PO DAILY 30 Days Qty: 30 0RF atorvastatin 20 mg tablet 20 mg PO DAILY gabapentin 300 mg capsule 600 mg PO BID pramipexole 0.25 mg tablet 0.25 mg PO TID trihexyphenidyl 2 mg tablet 2 mg PO BID Print Language: Korean Referrals: Seema Sutherland CLERK CHECKER [Primary Care Provider] - 1 week
[2024-09-24] MEDS: LORAZEPAM 2 MG/ML VIAL 0.5 MG IV (18:42)
[2024-09-24] MEDS: 0.9 % SODIUM CHLORIDE 500 ML IV (18:42)
[2024-09-24 18:45] LABS: Creatine Kinase 160 U/L (26-192)
[2024-09-24 18:46] LABS: Alanine Aminotransferase 24 U/L (14-59); Albumin Globulin Ratio 0.4; Alkaline Phosphatase 67 U/L (46-116); Anion Gap 12.1; Aspartate Amino Transferase 29 U/L (15-37); BUN Creatinine Ratio 17.2; Bilirubin Total 0.5 mg/dL (0.2-1.0); Carbon Dioxide 29.6 mmol/L (21.0-32.0); Chloride 100 mmol/L (98-107); Estimated GFR (African America >60 (>=60 mL/min/1.73m^2); Estimated GFR (Non-African Ame >60 (>=60 mL/min/1.73m^2); Globulin 4.5 g/dL; Glucose 166 mg/dL (74-106); Magnesium 1.4 mg/dL (1.8-2.4); Sodium 139 mmol/L (136-145); Total Protein 6.5 g/dL (6.4-8.2)
[2024-09-24 18:48] LABS: Calcium <5.0 mg/dL (8.5-10.1); Potassium 2.7 mmol/L (3.5-5.1)
[2024-09-24] MEDS: CALCIUM GLUC IN NACL, ISO-OSM 1 GM/50 ML PLAST..BAG IV ×2 (19:19→22:38)
[2024-09-24] MEDS: POTASSIUM BICARBONATE/CIT 25 MEQ TABLET EFF 50 MEQ PO (19:20)
[2024-09-24] MEDS: POTASSIUM CHLORIDE IN 0.9%NACL 1,000 ML 250 ML IV (19:54)
[2024-09-24] MEDS: MAGNESIUM SULFATE IN WATER IV (20:19)
[2024-09-24] MEDS: MAGNESIUM OXIDE 400 MG TABLET 800 MG PO (20:20)
--- OUTSIDE RECORDS SUMMARY | 2024-09-24 20:39 | XMS_ITS | CCD ---
Author Organization [facility] Care Team Providers Care [place] Name Role Phone DONNA TURCIOS Unavailable Unavailable CARIE REINA Unavailable Unavailable Bean Cantu Primary Care Provider Puneet Raymundo Attending Provider Curtis Alcocer Attending Provider Pratik Tadeo Unavailable Unavailable Unavailable Giovanny, Aba Unavailable Carie Keith Unavailable Alyssa Weller Unavailable PRATIK TADEO Primary Care Physician [phone] Unavailable Unavailable MD Madhav Conrad Attending Provider [phone] Seema Sutherland Primary Care Provider Madhav Conrad Unavailable RODERICK KONG Attending Unavailable RODERICK KONG Admitting Unavailable RODERICK KONG Consulting Unavailable DR PRATIK TADEO Primary Care Unavailable GIOVANNY, ABA Attending Unavailable DR PRATIK TADEO Primary Care Unavailable GIOVANNY, ABA Consulting Unavailable GIOVANNY, ABA Admitting Unavailable GIOVANNY, ABA Attending Unavailable DR PRATIK TADEO Primary Care Unavailable GIOVANNY, ABA Consulting Unavailable GIOVANNY, ABA Admitting Unavailable AICHHOLZ, DIE KEEPER SEEMA Consulting Unavailable DR PRATIK TADEO Primary Care Unavailable AICHHOLZ, DIE KEEPER SEEMA Admitting Unavailable AICHHOLZ, DIE KEEPER SEEMA Attending Unavailable ZOEY, DR JAYLEEN Manzo Consulting Unavailable TURCIOS, DR DONNA Deleon Admitting Unavailable TURCIOS, DR DONNA Deleon Attending Unavailable TURCIOS, DR DONNA Deleon Consulting Unavailable AICHHOLZ, DIE KEEPER SEEMA Primary Care Unavailable AICHHOLZ, DIE KEEPER SEEMA Consulting Unavailable AICHHOLZ, DIE KEEPER SEEMA Primary Care Unavailable AICHHOLZ, DIE KEEPER SEEMA Admitting Unavailable AICHHOLZ, DIE KEEPER SEEMA Attending Unavailable AICHHOLZ, DIE KEEPER SEEMA Primary Care Unavailable GIOVANNY, ABA Attending Unavailable GIOVANNY, ABA Consulting Unavailable GIOVANNY, ABA Admitting Unavailable Aichholz, Seema J Primary Care Provider [phone] MD Curtis Alcocer Attending Provider [phone] Aicjeannie, Seema J Primary Care Unavailable Madhav [...] Unavailable Pratik Tadeo MD Primary Care Provider [phone] Allergies Allergy Classification Reported Allergen(s) Allergy Type Date of Onset Reaction(s) Facility Opioid Agonists (2 sources) Morphine Drug Allergy 02-18-20 21 Hallucinating [facility] (7 sources) Morphine Derivatives; Translations: [Morphine Derivatives] Allergy to drug (finding) Other -[facility] y 250 DO Work Phone: (11 sources) fesoterodine Drug Allergy 03-07-20 24 dizziness/light hearded [facility] (20 sources) Morphine; Translations: [MORPHINE] Drug Allergy 01-16-20 18 hallucinations, Hallucinating, Hallucinating, hallucinations [facility] (1 source) Morphine Drug Allergy [facility] (1 source) Morphine Drug Allergy 03-09-20 21 [facility] (5 sources) Fesoterodine fumarate Allergy to substance 03-07-20 [facility] Healthcare Work Phone: (5 sources) Morphine And Codeine Propensity to adverse reactions 07-25-20 23 [facility] Healthcare Medications Current Medications Medication [...] day(s), # 10 cap(s), Refills(s) 0, Pharmacy: [facility] [id number], 144, cm, 09/27/23 13:10:00 EST, Height/Length Dosing, 49, kg, 09/27/23 13:10:00 EST, Weight Dosing Start Date: 11/13/23 Stop Date: 11/18/23 Status: Ordered Start: 09-27-2023 take 1 capsule by [facility] twice daily Keflex 500 mg Cap 500 mg = 1 cap(s), Oral, BID, start one day prior to procedure., # 14 cap(s), Refills(s) 0, Pharmacy: [place] [id number], 144, cm, 09/27/23 13:10:00 EST, Height/Length Dosing, 49, kg, 09/27/23 13:10:00 EST, Weight Dosing Start Date: 09/27/23 Status: Ordered Start: 08-16-2023 take 1 capsule by [facility] twice daily Keflex 500 mg Cap 500 mg = 1 cap(s), Oral, BID, # 14 cap(s), Refills(s) 0, Pharmacy: [facility] [id number], 144, cm, 08/16/23 10:03:00 EDT, Height/Length Dosing, 49, kg, 08/16/23 10:03:00 EDT, Weight Dosing Start Date: 08/16/23 Status: Ordered Start: 05-19-2022 End: 05-29-2022 take 1 capsule by mouth twice daily Keflex 500 mg Cap 500 mg = 1 cap(s), Oral, BID, X 10 day(s), # 20 cap(s), Refills(s) 0, Pharmacy: [facility] [id number], 144, cm, 05/19/22 14:08:00 EDT, Height/Length Dosing, 49, kg, 05/11/22 11:21:00 EDT, Weight Dosing Start Date: 05/19/22 Stop Date: 05/29/22 Status: Ordered Start: 05-11-2022 take 1 capsule by mo uth twice daily Keflex 500 mg Cap 500 mg = 1 cap(s), Oral, BID, Pt. to start 3 days prior to bladder botox injections, # 14 cap(s), Refills(s) 0, Pharmacy: [facility] [id number], 144, cm, 05/11/22 11:21:00 EDT, Height/Length Dosing, 49, kg, 05/11/22 11:21:00 EDT, Weight Dosing Start Date: 05/11/22 Status: Ordered ciprofloxacin 500 mg oral tablet (3 sources) Quinolone Antimicrobial Start: 11-13-2023 Cipro 500 mg Tab 500 mg = 1 tab(s), Oral, BID, Take twice daily x5 days starting the day prior to the procedure, # 10 tab(s), Refills(s) 0, Pharmacy: [facility] [id number], 144, cm, 09/27/23 13:10:00 EST, Height/Length Dosing, [...] Daily, # 30 tab(s), Refills(s) 11, Pharmacy: [facility] [id number], 144, cm, 08/16/23 10:03:00 EDT, Height/Length Dosing, [...] # 90 tab(s), Refills(s) 3, Pharmacy: [facility], 144, cm, 12/27/21 11:31:00 EST, Height/Length [...] BID, # 14 cap(s), Refills(s) 0, Pharmacy: [facility] 536, 144, cm, 05/05/21 13:13:00 EDT, Height/Length [...] tablet 2 06/24/2024 Active polyethylene glycol 3350 16700 mg powder for oral solution (5 sources) [...] 2018 12:00am take 2 tablets by mo [facility] once daily Trihexyphenidyl HCl - 2 MG [...] Coronary arteriosclerosis; Translations: [Atherosclerotic heart disease of [place] coronary artery without angina pectoris] Onset: 03-24-2022 [...] Unclassified (1 source) Athscl heart disease of [place] coronary artery w/o ang pctrs / I25.10(ICD-9) [...] Resolved: 10-18-2021 Episodic Other aftercare (1 source) longterm (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 of aspirin; Translations: [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 OF ASPIRIN] Onset: 03-24-2022 Episodic Other aftercare (1 source) Other long chain beamer (current) drug therapy; Translations: [OTH LOSS PREVENTION RESEARCH ENGINEER CURRENT DRUG THERAPY] Onset: 03-24-2022 Episodic Other [...] TOXIN EIA E coli Shiga Toxin EIA [facility] E COLI SHIGA TOXIN EIA Negative [facility] E COLI SHIGA TOXIN EIA Performed at: [facility] E COLI SHIGA TOXIN EIA [address], [place] [id number] [facility] E COLI SHIGA TOXIN EIA Railcar Switcher: Conrado Gates PhD, Phone: [phone] [facility] CT BRAIN WO CONTon CT [...] Santo MD on 07/18/2024 10:01 PM Normal [facility] CT CERVICAL SPINE WO CONTon 07-18-2024 [...] Alfonso MD on 07/18/2024 10:01 PM Normal [facility] XR ELBOW RT MIN 3 VWSon [...] Alfonso MD on 07/18/2024 10:05 PM Normal [facility] XR SHOULDER RT MIN 2 VWSon [...] Alfonso MD on 07/18/2024 10:02 PM Normal [facility] Lab Reportson 04-11-2024 Lab Reports [id number]#1.00TIF F Normal [facility] Ambulatory Visit Summaryon 0 04-10-2024 Ambulatory Visit [...] WATSON, Med Hilario Where: [facility] Patient Educationon 04-10-20 Patient Education [...] stimulation). ? For women, using a medical claims analyst to prevent urine leaks. This is a [...] urine. ? (more content not included)... Normal [facility] Urology Office/Clinic Noteon 04-10-2024 Urology Office/Clinic Note [...] with voice recognition artificial intelligence software, specifically [employer] and or Tutor Assignment. Substitutions may have occurred due to the [...] MD, URL [address] [facility] [address] [place] [address]- Additional Instructions: 6 mos Patient Education Urinary [...] Urgency of urinati (more content not included)... [facility] Comment on above: Result Comment: Elec tronically Signed By: Med JENKINS MD\.br\Date and Time Signed: 04/10/24 10:27 EDT\.br\Electronically Co-Signed By: Jenny Luna\.br\Date and Time Co-Signed: 04/10/24 10:25 EDT Consent for Procedure/Surger yon 03-13-2024 Consent for Procedure/Surgery [id number]#1.00TIF F [facility] Consent for Procedure/Surgery [id number]#1.00TI FF [facility] Erythrocyte distribution wid th Auto (RBC) [Ratio]on 02-27-2024 Erythrocyte distribution width (RBC) [Ratio] 13.0 % 11.0-15.0 [facility] Estimated glomerular filtrat ion rate (GFR) non- Americanon 02-27-2024 GFR/1.73 sq M.predicted among non-blacks MDRD (S/P/Bld) [Vol rate/Area] 57 mL/min/{1.73_m2} >=60 [facility] Hematocrit Auto (Bld) [Volum e fraction]on 02-27-2024 Hematocrit (Bld) [Volume fraction] 37.0 % 36.0-48.0 [facility] Hemoglobin [Mass/volume] in Bloodon 02-27-2024 Hemoglobin (Bld) [Mass/Vol] 12.1 g/dL 12.0-16.0 [facility] Laboratory - Chemistry and C hemistry - challengeon 02-27-2024 Albumin [Mass/Vol] 3.5 g/dL 3.4-5.0 [facility] Calcium [Mass/Vol] 9.3 mg/dL 8.5-10.1 [facility] Chloride [Moles/Vol] 104 mmol/L 98-107 [facility] CO2 [Moles/Vol] 29.1 mmol/L 21.0-32.0 [facility] Creatinine [Mass/Vol] 0.94 mg/dL 0.55-1.02 [facility] GFR/1.73 sq M.predicted MDRD (S/P/Bld) [Vol rate/Area] mL/min/{1.73_m2} >=60 [facility] Glucose [Mass/Vol] 126 mg/dL 74-106 [facility] Magnesium [Mass/Vol] 1.7 mg/dL 1.8-2.4 [facility] Potassium [Moles/Vol] 4.1 mmol/L 3.5-5.1 [facility] Sodium [Moles/Vol] 141 mmol/L 136-145 [facility] Urea nitrogen [Mass/Vol] 28.0 mg/dL 7.0-18.0 [facility] Urea nitrogen/Creatinine [Mass ratio] 29.8 mg/mg [facility] Leukocytes [#/volume] correc db for nucleated erythrocytes in Blood by Automated counon 02-27-2024 WBC corrected for nucl RBC Auto (Bld) [#/Vol] 9.9 10 3/uL 4.0-11.0 [facility] MCH Auto (RBC) [Entitic mass ]on 02-27-2024 MCH (RBC) [Entitic mass] 32.6 pg 26.7-34.0 [facility] MCHC Auto (RBC) [Mass/Vol]on 02-27-2024 MCHC (RBC) [Mass/Vol] 32.7 g/dL 29.9-35.2 [facility] MCV Auto (RBC) [Entitic vol] on 02-27-2024 MCV (RBC) [Entitic vol] 99.7 fL 81.0-99.0 [facility] No Panel Informationon 02-26 25-Hydroxy Vitamin D Total 34.4 ng/mL [facility] Comment on above: <20 ng/mL Vit D defi cient20-<30 ng/mL Vit D ucpoamgrnbks76-697 ng/mL Vit D sufficient>100 ng/mL Potential Toxicity Parathyroid Hormone (Intact) 3 pg/mL 15-65 [facility] Comment on above: Performed at: [address] [id number] Director: Conrado Gates PhD, Phone: [phone] Phosphorus Level 3.6 mg/dL 2.6-4.7 [facility] Platelet mean volume Auto (B ld) [Entitic vol]on 02-27-2024 Platelet mean volume (Bld) [Entitic vol] 9.4 fL 9.5-13.5 [facility] Platelets Auto (Bld) [#/Vol] on 02-27-2024 Platelets (Bld) [#/Vol] 196 10 3/uL 150-450 [facility] RBC Auto (Bld) [#/Vol]on RBC (Bld) [#/Vol] 3.71 10 6/uL 4.20-5.40 [facility] Serum or plasma anion gap de terminationon 02-27-2024 Anion gap [Moles/Vol] 12.0 mmol/L [facility] Consent for Treatmenton 01-29 Consent for Treatment [id number]#1.00TI FF Normal [facility] Inpatient Patient Summaryon 02-26-2024 Inpatient Patient Summary [place] [id number] Clinical Summary Person Information Name: NARCISO VELASQUEZ Age: 83 Years : 1940 Sex: Female PCP: PRATIK TADEO MD Marital Status: Race: White Ethnicity: Non- or Language: Pakistani Visit Id: Visit Reason: URINARY INCONTINENCE Speciality: Acuity: Enc Type: Outpatient Med Service: Surgery Arrival: 02/26/2024 12:39:14 Discharge: Dispo Type: Address: [address] [place] [phone] Provider Notes: Diagnosis: Problems Active Incontinence without sensory awareness Recurrent UTI Incomplete bladder emptying Stress incontinence UTI (urinary tract infection) Urinary retention UTI symptoms Overactive bladder Aspirin long-term use Weak urine stream Weak urinary stream 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 Patient Education Information: EU - Cystoscopy with Botox Injection Discharge Instructions (Custom) [facility] IntraOperative Documentson 0 02-26-2024 IntraOperative Documents [id number] FF [facility] Main OR Intraoperative Recor don 02-26-2024 Main OR Intraoperative Record IntraOp Document Type FTURO Summary Primary Physician: Med JENKINS MD Finalized Date/Time: 02/26/24 13:43:34 Pt. Name: NARCISO VELASQUEZ/Sex: 1940 Female Med Rec #: [id number] Physician: Med JENKINS MD Financial #: [id number] Pt. Type: O Room/Bed: / Admit/Disch: 02/26/24 [...] Krishna Moctezuma Role Performed Surgeon - Primary [employer] Director - Primary Scrub - Primary Time In [...] Comments: botox 100 units out date03/24 lot [id number] botox 50 units outdate 12/25 lot [id number] General Case Data FTURO Pre-Care Text: Classifies [...] JASPREET Bennett RN, Ruthann 02/26/24 13:43 Normal [facility] Main OR Preoperative Recordo n 02-26-2024 Main OR Preoperative Record Holding Area Document Type FTURO Summary Primary Physician: Med JENKINS MD Finalized Date/Time: 02/26/24 13:13:19 Pt. Name: RONNARCISO/Sex: 1940 Female Med Rec #: [id number] Physician: Med JENKINS MD Financial #: [id number] Pt. Type: O Room/Bed: / Admit/Disch: 02/26/24 [...] By: Dorie Logan RN 02/26/24 13:13 Normal [facility] Operative Reporton Operative Report Patient: STEPHANIA VELASQUEZ Age: 83 years Sex: Female : 1940 Associated Diagnoses: None Author: Med JENKINS MD Procedure Operative Information Details: Date/ Time: 02/26/2024 13:46:00. Pre-Op Dx: Overactive bladder (YYI74-PW N32.81, Working, Medical), Urgency incontinence (REV18-ZI N39.41, Working, Medical). Post-Op Dx: Same. Anesthesia [...] Follow up arranged, F/U six weeks. Normal [facility] Comment on above: Result Comment: Elec tronically Signed By: Med JENKINS MD\.hector\Date and Time Signed: 02/26/24 13:51 EDT Outpatient Surgery Discharge Instructionon 02-26-2024 Outpatient Surgery Discharge Instruction [id number]#[id number] FF Normal [facility] Outpatient Surgery Discharge Instruction [address] [address] Patient Discharge Instructions PERSON INFORMATION [...] up: With: Address: When: Med JENKINS [address], [address], [place] [address] [facility] (1) Within 6 weeks Comments: [...] to serve you. Thank you for choosing [facility] Normal [facility] C Urineon 11-16-2023 Bacteria identified Cx Nom [...] Locations R1: This test was performed at: [facility], [address] [place] [address], [address] , , [facility] Comment on above: Performed By: #### [id number] ####[place] [address] [place] [address] Consent for Treatmenton 10-30 Consent for Treatment [id number]#1.00TIF F Normal [facility] Inpatient Patient Summaryon 11-13-2023 Inpatient Patient Summary [place] [address] Clinical Summary Person Information Name: NARCISO VELASQUEZ Age: 82 Years : 1940 Sex: Female PCP: PRATIK TADEO MD Marital Status: Race: White Ethnicity: Non- or Language: Pakistani Visit Id: Visit Reason: URINARY INCONTINENCE Speciality: Acuity: Enc Type: Outpatient Med Service: Surgery Arrival: 11/13/2023 13:31:33 Discharge: Dispo Type: Address: [address] [place] [phone] Provider Notes: Diagnosis: Problems Active Incontinence without sensory awareness Recurrent UTI Incomplete bladder emptying Stress incontinence UTI (urinary tract infection) Urinary retention UTI symptoms Overactive bladder Aspirin long-term use Weak urine stream Weak urinary stream Hx of long chain beamer 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 thinners Mixed incontinence Frequency [...] With: Address: When: Med FENG, [address], [facility] [address] [place] [phone] Business (1) Comments: As you know we [...] locally and the cranberry is self-explanatory. My surgical scheduler will call you to get you back on the books for the Botox injection. Patient Education Information: Franca [facility] Main OR Preoperative Recordo n 11-13-2023 Main OR Preoperative Record Holding Area Document Type FTURO Summary Primary Physician: Finalized Date/Time: 11/13/23 16:40:45 Pt. Name: NARCISO VELASQUEZ/Sex: 1940 Female Med Rec #: [id number] Physician: Med JENKINS MD Financial #: [id number] Pt. Type: O Room/Bed: / Admit/Disch: 11/13/23 [...] and he said they would call her contact representative right away [facility]. Finalized By: JASPREET Bennett RN, Ruthann Document Signatures Signed By: JASPREET Bennett RN, Ruthann 11/13/23 14:43 JASPREET Bennett RN, Ruthann 11/13/23 14:43 JASPREET Bennett RN, Ruthann 11/13/23 16:40 Normal [facility] Outpatient Surgery Discharge Instructionon 11-13-2023 Outpatient Surgery Discharge Instruction [address] [address] Patient Discharge Instructions PERSON INFORMATION [...] Follow up: With: Address: When: Med JENKINS [address] [place] [address], [address], [place] [phone] Business (1) Comments: As you know we [...] locally and the cranberry is self-explanatory. My surgical scheduler will call you to get you [...] Date You may receive a survey from [employer] asking you to rate your care experience. Your feedback is important and will help us understand what we do well and how we can improve the quality of care we provide to you, your loved ones and our community. It?s an honor to serve you. Thank you for choosing [facility] Normal [facility] Patient Educationon 11-13-19 Patient Education Normal [facility] Progress Note-Physicianon Progress Note-Physician Patient: NARCISO VELASQUEZ [...] procedure., # 14 cap(s), Refills(s) 0, Pharmacy: [facility] [id number], 144, cm, 09/27/23 13:10:00 EST, Height/Length Dosing, [...] All Problems Kidney stone / SNOMED CT 909379110 / Confirmed Incontinence without sensory awareness / SNOMED CT 7915616317 / Confirmed Weak urinary stream / SNOMED CT 6221835700 / Confirmed Urge incontinence of urine / SNOMED CT 360686725 / Confirmed Flank pain / SNOMED CT 715213994 / Confirmed Myocardial infarction / SNOMED CT 51672919 / Confirmed Nocturia / SNOMED CT 104078526 / Confirmed Urinary urgency / SNOMED CT 422746270 / Confirmed Hx of retirement 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 thinners / SNOMED CT 129298158 / Confirmed Urgency of urination / SNOMED CT 662832741 / Confirmed Urge incontinence / SNOMED CT 827097528 / Confirmed Dysuria / SNOMED CT 92954589 / Confirmed Asymptomatic microscopic hematuria / SNOMED CT 2394215692 / Confirmed Mixed incontinence / SNOMED CT 97575961 / Confirmed Frequency of urination / SNOMED CT 632683031 / Confirmed Weak urine stream / SNOMED CT 902776357 / Confirmed OAB (overactive bladder) / SNOMED CT 7267422534 / Confirmed Aspirin long-term use / SNOMED CT 5642467723 / Confirmed Overactive bladder / SNOMED CT 3994370630 / Confirmed UTI symptoms / SNOMED CT 560348648 / Confirmed Urinary retention / SNOMED CT 522332807 / Confirmed UTI (urinary tract infection) / SNOMED CT 438055861 / Confirmed Stress incontinence / SNOMED CT 448650930 / Confirmed Incomplete bladder emptying / SNOMED CT 836000013 / Confirmed Recurrent UTI / SNOMED CT 909211558 / Confirmed Incontinence without sensory awareness / SNOMED CT 8139623810 / Confirmed, Active Problems (26) Aspirin long-term [...] Plan Assessment and Plan: Diagnosis: Acute UTI (HIK15-EH N39.0, Working, Medical), Mixed incontinence urge and stress (GJH42-LI N39.46, Working, Medical), Overactive bladder (KIJ95-OQ N32.81, Working, Medical). Additional Plan of Care and/or Course of Treatment: Additional Plan of Care and/or Course of Treatment: Discussed extensively with the patient and her . Due to the presence of what appears to be an active urinary tract infection, have to cancel the B (more content not included)... Normal [facility] Comment on above: Result Comment: Elec tronically Signed By: Med JENKINS MD\.br\Date and Time Signed: 11/13/23 14:46 EST Ambulatory Visit Summaryon 1 11-27-2022 Ambulatory Visit Summary NARCISO VELASQUEZ :1940 Visit Date:09/27/2023 Ambulatory Visit Instructions Your Diagnosis Urge incontinence Incontinence without sensory awareness OAB (overactive bladder) Recurrent UTI Tests Performed Urnls Dip Stick Auto w/o Microscopy POC 29311 Your Care Team Attending Physician - Med [...] with TRINA WATSON, ARELI Ramirez When: Where: [facility] [address] [place] [address]- Medications What How Much When Instructions Changed cephalexin (Keflex 500 mg Cap) 1 Capsules By Mouth 2 times a day start one day prior to procedure. Pickup at [facility] [id number] Unchanged acetaminophen Contact prescribing physician if questions [...] concerns Pharmacy Information [facility] [id number]: [address] [place], [place] [phone] What How Much When Comments Stop Taking methenamine (methenamine hippurate 1 g oral tablet) 0.5 Tablets By Mouth Every day Test Results Urnls Dip Stick Auto w/o Microscopy POC 92016 (09/27/2023) POC Test Comments - Pt. was [...] urethra blocke (more content not included)... Normal [facility] Patient Educationon 09-27-20 23 Patient Education Urology [...] stimulation). ? For women, using a medical claims analyst to prevent urine leaks. This is a [...] urine. ? (more content not included)... Normal [facility] Urology Office/Clinic Noteon 09-27-2023 Urology Office/Clinic Note [...] with voice recognition artificial intelligence software, specifically [employer]., [employer] and or Tutor Assignment. Substitutions may have occurred due to the [...] Information TRINA WATSON, Med Hilario, URL [address] [address] Additional Instructions: Schedule botox 150 units Patient Education Urinary Incontinence I, Jenny Luna, personally scribed for Dr. Jenkins on 09/27/2023 13:17:45. . Documentation recorded by the guanakitoibe, Jenny Luna, accurately reflects the services(s) I performed and decisions made by me. Authenticated by Dr. Jenkins on 09/27/2023 13:21:04. Problem List/Past Medical History Ongoing Aspirin l (more content not included)... [facility] Comment on above: Result Comment: Elec [...] Locations R1: This test was performed at: [facility], [address] [place] [address], [address] , , [facility] Comment on above: Performed By: #### [id number] #### [facility] [address] [place] [address] Ambulatory Visit Summaryon 1 Ambulatory Visit Summary NARCISO VELASQUEZ :1940 Visit Date:08/16/2023 Ambulatory Visit Instructions Your Diagnosis Urge incontinence OAB (overactive bladder) Recurrent UTI Tests Performed Urnls Dip Stick Auto w/o Microscopy POC 55606 Your Care Team Attending Physician - TRINA [...] WATSON, Med Hilario Where: [facility] Patient Educationon 08-16-20 Patient Education Obstetrics and [...] this condition includes: ? Antibiotic medicine. ? Qvno-usb-aiabici medicines to treat discomfort. ? Drinking enough [...] these instructions at home: Medicines ? Take dhvu-wth-kxmewbg and prescription medicines only as told by [...] Revie (more content not included)... Normal [facility] Urology Office/Clinic Noteon 08-16-2023 Urology Office/Clinic [...] with voice recognition artificial intelligence software, specifically [employer] and or [employer]. Substitutions may have occurred due to the [...] at next visit -Check with [facility] in [place] regarding incontinence supplies 1a. Current UTI. 2. [...] Contact Information Med JENKINS MD, URL [address] [place], [place] [id number]- Additional Instructions: 6 wks since starting Methenamine [...] of urin (more content not included)... Normal [facility] Comment on above: Result Comment: Elec tronically [...] rheumatology locally, currently stable Donna Turcios MD, [facility] Surgical History Problems History of Angioplasty [...] negative for complaint. Vitals Vital Signs Recorded: [id number] 10:40AM Heart Rate60, L Radial Wbdfckhs704, LUE, Sitting Oehdbuhqh13, LUE, Sitting Height4 ft 10 in Txmgac288 lb BMI Wdclsijtsb58.11 kg/m2 BSA Calculated1.36 Tobacco Useb) No Falls [...] a) No falls within the last year [facility] 250 DO Work Phone: Tobacco use status CPHS b) No [facility] 250 DO Work Phone: XR calcaneus BIon 07-05-2023 XR calcaneus BI [facility] Main [place] [address] [place] [address] XRay Report Signed Patient: Narciso Velasquez MR#: [id number] : 1940 Acct:[id number] Age/Sex: 82 / F ADM Date: 07/05/23 Loc: ICXD Room: Type: [facility] Attending Dr: Curtis Alcocer MD Copies to: Curtis Alcocer MD Ordering Provider: Curtis Alcocer MD Date of Service: 07/05/23 XR/XR foot BI 2V: BENJIE HEAL/FOOT PAIN ([id number]) XR/XR calcaneus BI: FOOT/HEAL PAIN CLINICAL DATA: [...] Zuly Leon M.D.07/05/2023 5:55 PM Dictation Location: [place] [address] Transcribed By: [facility] 07/05/231754 Dictated By: Zuly Leon MD 07/05/231752 Signed By: 07/05/231754 [facility] Lab Reportson 06-12-2023 Lab Reports [id number]#1.00CD: 127 [facility] Lab Reports [id number]#1.00CD: 127 [facility] Lab Reports [id number]#1.00CD: 127 [facility] Lab Reportson 06-10-2023 Lab Reports [id number]#1.00CD: 127 [facility] Consent for Procedure/Surger yon 05-11-2023 Consent for Procedure/Surgery [id number]#1.00CD :127 [facility] Consent for Treatmenton 04-29 Consent for Treatment [id number]#1.00CD: 127 [facility] Inpatient Patient Summaryon 05-11-2023 Inpatient Patient Summary [place] [address] Clinical Summary Person Information Name: NARCISO VELASQUEZ Age: 82 Years : 1940 Sex: Female PCP: PRATIK TADEO MD Marital Status: Race: White Ethnicity: Non- or Language: Pakistani Visit Id: Visit Reason: URINERY INCONTINENCE Speciality: Acuity: Enc Type: Outpatient Med Service: Surgery Arrival: 05/11/2023 07:16:35 Discharge: Dispo Type: Address: [address] [place] [id number] Provider Notes: Diagnosis: Problems Active Incomplete bladder emptying Stress incontinence UTI (urinary tract infection) Urinary retention UTI symptoms Overactive bladder Aspirin long-term use Weak urine stream Weak urinary stream 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 Patient Education Information: EU - Cystoscopy with Botox Injection Discharge Instructions (Custom) Normal [facility] IntraOperative Documentson 0 05-11-2023 IntraOperative Documents [id number]#1.00CD :127 Normal [facility] Main OR Intraoperative Recor don 05-11-2023 Main OR Intraoperative Record IntraOp Document Type FTURO Summary Primary Physician: Med JENKINS MD Finalized Date/Time: 05/11/23 08:07:27 Pt. Name: NARCISO VELASQUEZ Derrick Tellez./Sex: 1940 Female Med Rec #: [id number] Physician: Med JENKINS MD Financial #: [id number] Pt. Type: O Room/Bed: / Admit/Disch: 05/11/23 [...] Kendall R Role Performed Surgeon - Primary [employer] Director - Primary Scrub - Primary Time In [...] 08:07:16 General Comments: botox 100 units, lot: [id number] exp: General Case Data FTURO Pre-Care Text: [...] 05/11/23 08:07 Heather Randhawa 05/11/23 08:07 Normal [facility] Main OR Preoperative Recordo n 05-11-2023 Main OR Preoperative Record Holding Area Document Type FTURO Summary Primary Physician: Med JENKINS MD Finalized Date/Time: 05/11/23 07:53:38 Pt. Name: NARCISO VELASQUEZ Derrick WeberB./Sex: 1940 Female Med Rec #: [id number] Physician: Med JENKINS MD Financial #: [id number] Pt. Type: O Room/Bed: / Admit/Disch: 05/11/23 [...] 07:36 Dorie Logan RN 05/11/23 07:53 Normal [facility] Operative Reporton Operative Report Patient: STEPHANIA VELASQUEZ [...] months with bladder scan PVR. . Normal [facility] Comment on above: Result Comment: Elec tronically Signed By: Med JENKINS MD\.br\Date and Time Signed: 05/11/23 08:03 EDT Outpatient Surgery Discharge Instructionon 05-11-2023 Outpatient Surgery Discharge Instruction [address] [address] Patient Discharge Instructions PERSON INFORMATION [...] Follow up: With: Address: When: Med JENKINS [address] [place] [address], [address], [address] [address] Business (1) Within 3 months [...] Date You may receive a survey from [employer] asking you to rate your care experience. Your feedback is important and will help us understand what we do well and how we can improve the quality of care we provide to you, your loved ones and our community. It?s an honor to serve you. Thank you for choosing [facility] Normal [facility] Office Visit (Cardiology)on 01-12-2023 Follow-up visit Diagnoses/Problems [...] rheumatology locally, currently stable Donna Turcios MD, [facility] Surgical History Problems History of Angioplasty [...] Recorded: 12Jan2023 11:13AM Heart Rate88, L Radial Utmwqrsv116, LUE, Sitting Ciwhtgprj51, LUE, Sitting Height4 ft 10 in Bqevgt991 lb BMI Plhtbiamdo85.95 kg/m2 BSA Calculated1.38 Tobacco Useb) No PHQ-2 [...] . Pulmo (more content not included)... Normal [place] [facility] Tobacco Screening.on 023 Adult depression screening assessment No [facility] 250 DO Work Phone: Fall risk assessment a) No falls within the last year [facility] 250 DO Work Phone: Tobacco use status CP b) No -[facility] 250 DO Work Phone: PTH INTACTon 11-30-2022 PTH, Intact 3 pg/mL Critically low 15-65 [facility] Comment on above: Performed By: #### R ENAL, MG #### [facility] [address] [place] [address] Dr. Emilie Jeronimo HEMOGRAM AND PLATELon 2022 Hematocrit (Bld) [Volume fraction] 38.0 % Normal 36.0-48.0 [facility] Comment on above: Performed By: #### R ENAL, MG #### [facility] [address] [place] [address] Dr. Emilie Jeronimo Hemoglobin (Bld) [Mass/Vol] 12.9 g/dL Normal 12.0-16.0 [facility] Comment on above: Performed By: #### R ENAL, MG #### [facility] [address] [place] [address] Dr. Emilie Jeronimo MCH (RBC) [Entitic mass] 32.5 pg Normal 26.7-34.0 [facility] Comment on above: Performed By: #### R ENAL, MG #### [facility] [address] [place] [address] Dr. Emilie Jeronimo MCHC (RBC) [Mass/Vol] 33.9 g/dL Normal 29.9-35.2 [facility] Comment on above: Performed By: #### R ENAL, MG #### [facility] [address] [place] [address] Dr. Emilie Jeronimo MCV (RBC) [Entitic vol] 95.7 fL Normal 81.0-99.0 [facility] Comment on above: Performed By: #### R ENAL, MG #### [facility] [address] [place] [address] Dr. Emilie Jeronimo PLT 214 103/ul Normal 150-450 [facility] Comment on above: Performed By: #### R ENAL, MG #### [facility] [address] [place] [address] Dr. Emilie Jeronimo RBC 3.97 106/ul Critically low 4.20-5.40 [facility] Comment on above: Performed By: #### R ENAL, MG #### [facility] [address] [place] [address] Dr. Emilie Jeronimo WBC 7.7 103/ul Normal 4.0-11.0 [facility] Comment on above: Performed By: #### R ENAL, MG #### [facility] [address] [place] [address] Dr. Emilie Jeronimo MAGNESIUMon 11-29-2022 Magnesium [Mass/Vol] 1.3 mg/dL Critically low 1.8-2.4 [facility] Comment on above: Performed By: #### R ENAL, MG #### [facility] [address] [place] [address] Dr. Emilie Jeronimo RENAL FUNCTION PANELon 11-29 Albumin [Mass/Vol] 3.6 g/dL Normal 3.4-5.0 [facility] Comment on above: Performed By: #### R ENMICHELLE, MG #### [facility] [address] [place] [address] Dr. Emilie Jeronimo Calcium [Mass/Vol] 9.4 mg/dL Normal 8.5-10.1 [facility] Comment on above: Performed By: #### R ENAL, MG #### [facility] [address] [place] [address] Dr. Emilie Jeronimo Chloride [Moles/Vol] 103 mmol/L Normal 98-107 [facility] Comment on above: Performed By: #### R ENMICHELLE, MG #### [facility] [address] [place] [address] Dr. Emilie Jeronimo CO2 [Moles/Vol] 32.5 mmol/L Critically high 21.0-32.0 [facility] Comment on above: Performed By: #### R ENMICHELLE, MG #### [facility] [address] [place] [address] Dr. Emilie Jeronimo Creatinine [Mass/Vol] 0.79 mg/dL Normal 0.55-1.02 [facility] Comment on above: Performed By: #### R ENAL, MG #### [facility] [address] [place] [address] Dr. Emilie Jeronimo EGFR-AF SAMMARINESE >60 Normal >=60 [facility] Comment on above: Performed By: #### R ENAL, MG #### [facility] [address] [place] [address] [address] Emilie Jeronimo EGFR-NON AF SAMMARINESE >60 Normal >=60 [facility] Comment on above: Performed By: #### R ENAL, MG #### [facility] [address] [place] [address] Dr. Emilie Jeronimo Glucose [Mass/Vol] 95 mg/dL Normal 74-106 [facility] Comment on above: Performed By: #### R ENMICHELLE, MG #### [facility] [address] [place] [address] Dr. Emilie Jeronimo Phosphate [Mass/Vol] 4.0 mg/dL Normal 2.6-4.7 [facility] Comment on above: Performed By: #### R ENMICHELLE, MG #### [facility] [address] [place] [address] Dr. Emilie Jeronimo Potassium [Moles/Vol] 3.8 mmol/L Normal 3.5-5.1 [facility] Comment on above: Performed By: #### R ENAL, MG #### [facility] [address] [place] [address] Dr. Emilie Jeronimo Sodium [Moles/Vol] 145 mmol/L Normal 136-145 [facility] Comment on above: Performed By: #### R ENAL, MG #### [facility] [address] [place] [address] Dr. Emilie Jeronimo Urea nitrogen [Mass/Vol] 17.0 mg/dL Normal 7.0-18.0 [facility] Comment on above: Performed By: #### R ENMICHELLE, MG #### [facility] [address] [place] [address] Dr. Emilie Jeronimo UA RANDOM W/MICROSCOPICon BACTERIA SMALL Abnormal NONE SEEN [facility] Comment on above: Performed By: #### R ENAL, MG #### [facility] [address] [place] [address] Dr. Emilie Jeronimo Bilirubin Ql (U) Negative Normal NEGATIVE [facility] Comment on above: Performed By: #### R ENAL, MG #### [facility] [address] [place] [address] Dr. Emilie Jeronimo CAST NONE SEEN Normal NONE SEEN [facility] Comment on above: Performed By: #### R ENAL, MG #### [facility] [address] [place] [address] Dr. Emilie Jeronimo Clarity (U) SL CLOUDY Abnormal CLEAR [facility] Comment on above: Performed By: #### R ENAL, MG #### [facility] [address] [place] [address] Dr. Emilie Jeronimo Color (U) LT. YELLOW Normal YELLOW [facility] Comment on above: Performed By: #### R ENAL, MG #### [facility] [address] [place] [address] Dr. Emilie Jeronimo Crystals LM Nom (Urine sed) NONE SEEN Normal NONE SEEN [facility] Comment on above: Performed By: #### R ENAL, MG #### [facility] [address] [place] [address] Dr. Emilie Jeronimo Epithelial cells LM Ql (Urine sed) RARE Normal NONE SEEN /RARE [facility] Comment on above: Performed By: #### R ENAL, MG #### [facility] [address] [place] [address] Dr. Emilie Jeronimo Glucose Ql (U) Negative Normal NEGATIVE [facility] Comment on above: Performed By: #### R ENAL, MG #### [facility] [address] [place] [address] Dr. Emilie Jeronimo Hemoglobin Ql (U) TRACE-INTACT Abnormal NEGATIVE [facility] Comment on above: Performed By: #### R ENAL, MG #### [facility] [address] [place] [address] [address] Emilie Jeronimo Ketones Ql (U) Negative Normal NEGATIVE [facility] Comment on above: Performed By: #### R ENAL, MG #### [facility] [address] [place] [address] Dr. Emilie Jeronimo LEUKOCYTES LARGE Abnormal NEGATIVE [facility] Comment on above: Performed By: #### R ENAL, MG #### [facility] [address] [place] [address] [address] Emilie Jeronimo MUCOUS TRACE Abnormal NONE SEEN [facility] Comment on above: Performed By: #### R ENAL, MG #### [facility] [address] [place] [address] Dr. Emilie Jeronimo Nitrite Ql (U) Positive Abnormal NEGATIVE [facility] Comment on above: Performed By: #### R ENAL, MG #### [facility] [address] [place] [address] Dr. Emilie Jeronimo pH (U) 6.5 [pH] Normal 5-9 [facility] Comment on above: Performed By: #### R ENAL, MG #### [facility] [address] [place] [address] Dr. Emilie Jeronimo RBC 2-5 Abnormal 0-2 [facility] Comment on above: Performed By: #### R ENAL, MG #### [facility] [address] [place] [address] Dr. Emilie Jeronimo SPEC GRAVITY 1.020 Normal 1.005-<=1.[address] [facility] Comment on above: Performed By: #### R ENAL, MG #### [facility] [address] [place] [address] Dr. Emilie Jeronimo UA PROTEIN TRACE Normal NEGATIVE/ TRACE [facility] Comment on above: Performed By: #### R ENAL, MG #### [facility] [address] [place] [address] Dr. Emilie Jeronimo Urobilinogen Qn (U) 1.0 {Fareed'U}/dL Normal 0.2 - 1. 0 [facility] Comment on above: Performed By: #### R ENAL, MG #### [facility] [address] [place] [address] Dr. Emilie Jeronimo WBC 20-50 Abnormal NONE SEEN [facility] Comment on above: Performed By: #### R ZEESHAN, MG #### [facility] [address] [place] [address] [address] Emilie Jeronimo VITAMIN D 25 OHon 11-29-2022 VIT D 25-OH 38.1 ng/mL Normal [facility] Comment on above: Performed By: #### R ZEESHAN, MG #### [facility] [address] [place] [address] [address] Emilie Jeronimo VIT D RANGES SEE BELOW Normal [facility] Comment on above: Result Comment: <20 ng/mL Vit D deficient 20 - <30 ng/mL Vit D insufficient 30 - 100 ng/mL Vit D sufficient >100 ng/mL Potential Toxicity Performed By: #### Jovany BYERS, MG #### [facility] [address] [place] [address] Dr. Emilie Corral 08-02-2022 L ---- Specimen: [id number] Received: 08/02/22 Status: BIANKA Meyer Num: [id number] Spec Type: Surgical Subm Dr: Madhav Conrad MD Tissues: A Gastric Biopsy (GASTRIC BX) Procedures: HE Stain/2, Gross/Micro L4 Age/ Patient Sex Location Account Attending Physician RonMagdaNarciso A 81/[facility] [id number] Madhav Conrad MD SPEC NUM: [id number] RECD: 08/02/22 STATUS: BIANKA MEYER NUM: [id number] SHERLYN: 08/02/22 [facility] DR: Madhav Conrad MD ENTERED: 08/02/[address] [facility] [address]: VIVI TYPE: Surgical DEPT: S [...] findings support the above pathologic diagnosis. Specimen: [id number] Received: 08/02/22 Status: BIANKA Meyer Num: [id number] Spec Type: Surgical Subm Dr: Madhav Conrad MD Tissues: A Gastric Biopsy (GASTRIC BX) Procedures: HE Stain/2, Gross/Micro L4 Patient: Narciso Velasquez [id number] (Continued) Specimen: [id number] Received: 08/02/22 (Continued) Signed (signature on file) Donita Severino MD 08/04/22 1313 Specimen: [id number] Received: 08/02/22 Status: BIANKA Meyer Num: [id number] Spec Type: Surgical Subm Dr: Madhav Conrad MD Tissues: A Gastric Biopsy (GASTRIC BX) Procedures: HE Stain/2, Gross/Micro L4 Patient: Narciso Velasquez [id number] (Continued) Specimen: [id number] Received: 08/02/22 (Continued) CPT Codes 96397 Specimen: [id number] Received: 08/02/22 Status: BIANKA Meyer Num: [id number] Spec Type: Surgical Subm Dr: Madhav Conrad MD Tissues: A Gastric Biopsy (GASTRIC BX) Procedures: HE Stain/2, Gross/Micro L4 Patient: Narciso Velasquez [id number] (Continued) Signed (signature on file) Donita Severino MD 08/04/22 1313 Normal [facility] COVID[facility]19 [facility] SARS-CoV-2 (COVID-19) RNA GAUDENICO+probe Ql (Unsp spec) Negative Normal Negative [facility] Comment on above: Order Comment: Healt hcare Worker?: N Result Comment: Testing for SARS-CoV-2 by RT-PCR This test was developed and its performance characteristics determined by [employer] and validated at the [facility]. This test has not been FDA cleared [...] is terminated or revoked sooner. PERFORMED BY: [facility] [address] [place] [address] PATHOLOGIST ELECTROTYPER HELPER CHELSY MAHMOOD M.D. Performed By: #### C OVID 19 [facility] #### [facility] [address] COVID-19 Positive/NegativeOr dered By: Madhav Conrad on 07-29-2022 SARS-CoV-2 (COVID-19) N gene GAUDENCIO+probe Ql (Resp) Negative Negative [facility] Comment on above: Testing for SARS-CoV -2 by RT-PCRThis test was developed and its performance characteristics determined by [employer] and validated at the [facility]. This test has not been FDA cleared [...] 07-11-2022 BASO # 0.1 103/ul Normal 0.0-0.1 [facility] Comment on above: Performed By: #### C BC #### [facility] [address] [place] [address] Dr. Emilie Jeronimo Basophils/100 WBC (Bld) 0.6 % Normal 0.2-2.0 [facility] Comment on above: Performed By: #### C BC #### [facility] [address] [place] [address] Dr. Emilie Jeronimo EO # 0.2 103/ul Normal 0.0-0.7 [facility] Comment on above: Performed By: #### C BC #### [facility] [address] [place] [address] Dr. Emilie Jeronimo Eosinophils/100 WBC (Bld) 1.9 % Normal 0.9-7.0 [facility] Comment on above: Performed By: #### C BC #### [facility] [address] [place] [address] Dr. Emilie Jeronimo Erythrocyte distribution width (RBC) [Ratio] 13.2 % Normal 11.0-15.0 [facility] Comment on above: Performed By: #### C BC #### [facility] [address] [place] [address] Dr. Emilie Jeronimo Hematocrit (Bld) [Volume fraction] 37.9 % Normal 36.0-48.0 [facility] Comment on above: Performed By: #### C BC #### [facility] [address] [place] [address] Dr. Emilie Jeronimo Hemoglobin (Bld) [Mass/Vol] 12.2 g/dL Normal 12.0-16.0 [facility] Comment on above: Performed By: #### C BC #### [facility] [address] [place] [address] Dr. Emilie Jeronimo IG # 0.03 10e3/ul Normal 0.00-0.03 [facility] Comment on above: Performed By: #### C BC #### [facility] [address] [place] [address] Dr. Emilie Jeronimo IG % 0.4 % Normal 0.0-0.5 [facility] Comment on above: Performed By: #### C BC #### [facility] [address] [place] [address] Dr. Emilie Jeronimo LYMPH # 2.3 103/ul Normal 1.2-3.8 [facility] Comment on above: Performed By: #### C BC #### [facility] [address] [place] [address] Dr. Emilie Jeronimo Lymphocytes/100 WBC (Bld) 29.0 % Normal 20.5-60.0 [facility] Comment on above: Performed By: #### C BC #### [facility] [address] [place] [address] Dr. Emilie Jeronimo MANUAL DIFF REQ NO Normal [facility] Comment on above: Performed By: #### C BC #### [facility] [address] [place] [address] Dr. Emilie Jeronimo MCH (RBC) [Entitic mass] 32.4 pg Normal 26.7-34.0 [facility] Comment on above: Performed By: #### C BC #### [facility] [address] [place] [address] Dr. Emilie Jeronimo MCHC (RBC) [Mass/Vol] 32.2 g/dL Normal 29.9-35.2 [facility] Comment on above: Performed By: #### C BC #### [facility] [address] [place] [address] Dr. Emilie Jeronimo MCV (RBC) [Entitic vol] 100.5 fL Critically high 81.0-99.0 [facility] Comment on above: Performed By: #### C BC #### [facility] [address] [place] [address] Dr. Emilie Jeronimo MONO # 0.6 103/ul Normal 0.3-0.8 [facility] Comment on above: Performed By: #### C BC #### [facility] [address] [place] [address] Dr. Emilie Jeronimo Monocytes/100 WBC (Bld) 7.9 % Normal 1.7-12.0 [facility] Comment on above: Performed By: #### C BC #### [facility] [address] [place] [address] Dr. Emilie Jeronimo NEUT # 4.7 103/ul Normal 1.4-6.5 [facility] Comment on above: Performed By: #### C BC #### [facility] [address] [place] [address] Dr. Emilie Jeronimo Neutrophils/100 WBC (Bld) 60.2 % Normal 43.0-75.0 [facility] Comment on above: Performed By: #### C BC #### [facility] [address] [place] [address] Dr. Emilie Jeronimo Platelet mean volume (Bld) [Entitic vol] 10.0 fL Normal 9.5-13.5 [facility] Comment on above: Performed By: #### C BC #### [facility] [address] [place] [address] Dr. Emilie Jeronimo PLT 234 103/ul Normal 150-450 [facility] Comment on above: Performed By: #### C BC #### [facility] [address] [place] [address] Dr. Emilie Jeronimo RBC 3.77 106/ul Critically low 4.20-5.[address] [facility] Comment on above: Performed By: #### C BC #### [facility] [address] [place] [address] Dr. Emilie Jeronimo WBC 7.8 103/ul Normal 4.0-11.0 [facility] Comment on above: Performed By: #### C BC #### [facility] [address] [place] [address] Dr. Emilie Jeronimo FREE T4on 07-11-2022 Free T4 [Mass/Vol] 0.79 ng/dL Normal 0.76-1.46 [facility] Comment on above: Performed By: #### Jovany BYERS MG #### [facility] [address] [place] [address] Dr. Emilie Jeronimo PROF 14(COMP METB)on 022 Albumin [Mass/Vol] 3.7 g/dL Normal 3.4-5.0 [facility] Comment on above: Performed By: #### R ZEESHAN MG #### [facility] [address] [place] [address] Dr. Emilie Jeronimo Albumin/Globulin [Mass ratio] 1.2 {ratio} Normal [facility] Comment on above: Performed By: #### Jovany BYERS, MG #### [facility] [address] [place] [address] Dr. Emilie Jeronimo ALP [Catalytic activity/Vol] 53 U/L Normal 46-116 [facility] Comment on above: Performed By: #### R ENAL, MG #### [facility] [address] [address] [address] Emilie Jeronimo ALT [Catalytic activity/Vol] 26 U/L Normal 14-59 [facility] Comment on above: Performed By: #### R ENAL, MG #### [facility] [address] [address] [address] Emilie Jeronimo Anion gap [Moles/Vol] 8.9 mmol/L Normal [facility] Comment on above: Performed By: #### R ENAL, MG #### [facility] [address] [address] [address] Emilie Jeronimo AST [Catalytic activity/Vol] 18 U/L Normal 15-37 [facility] Comment on above: Performed By: #### R ENAL, MG #### [facility] [address] [place] [address] Dr. Emilie Jeronimo Bilirubin [Mass/Vol] 0.3 mg/dL Normal 0.2-1.0 [facility] Comment on above: Performed By: #### R ENAL, MG #### [facility] [address] [address] [address] Emilie Jeronimo Calcium [Mass/Vol] 9.1 mg/dL Normal 8.5-10.1 [facility] Comment on above: Performed By: #### R ENAL, MG #### [facility] [address] [address] [address] Emilie Jeronimo Chloride [Moles/Vol] 104 mmol/L Normal 98-107 [facility] Comment on above: Performed By: #### R ENAL, MG #### [facility] [address] [address] [address] Emilie Jeronimo CO2 [Moles/Vol] 34.8 mmol/L Critically high 21.0-32.0 [facility] Comment on above: Performed By: #### R ENAL, MG #### [facility] [address] [address] [address] Emilie Jeronimo Creatinine [Mass/Vol] 0.73 mg/dL Normal 0.55-1.02 [facility] Comment on above: Performed By: #### R ENAL, MG #### [facility] [address] [address] [address] Emilie Jeronimo EGFR-AF SAMMARINESE >60 Normal >=60 [facility] Comment on above: Performed By: #### R ENAL, MG #### [facility] [address] [address] [address] Emilie Jeronimo EGFR-NON AF SAMMARINESE >60 Normal >=60 [facility] Comment on above: Performed By: #### R ENAL, MG #### [facility] [address] [address] [address] Emilie Jeronimo Globulin (S) [Mass/Vol] 3.2 g/dL Normal [facility] Comment on above: Performed By: #### R ENAL, MG #### [facility] [address] [address] [address] Emilie Jeronimo Glucose [Mass/Vol] 109 mg/dL Critically high 74-106 [facility] Comment on above: Performed By: #### R ENAL, MG #### [facility] [address] [address] [address] Emilie Jeronimo Potassium [Moles/Vol] 3.7 mmol/L Normal 3.5-5.1 [facility] Comment on above: Performed By: #### R ENAL, MG #### [facility] [address] [address] [address] Emilie Jeronimo Protein [Mass/Vol] 6.9 g/dL Normal 6.4-8.2 [facility] Comment on above: Performed By: #### R ENAL, MG #### [facility] [address] [address] [address] Emilie Jeronimo Sodium [Moles/Vol] 144 mmol/L Normal 136-145 [facility] Comment on above: Performed By: #### R ENAL, MG #### [facility] [address] [address] [address] Emilie Jeronimo Urea nitrogen [Mass/Vol] 20.0 mg/dL Critically high 7.0-18.0 [facility] Comment on above: Performed By: #### R ENAL, MG #### [facility] [address] [place] [address] Dr. Emliie Jeronimo Urea nitrogen/Creatinine [Mass ratio] 27.4 mg/mg Normal [facility] Comment on above: Performed By: #### R ENAL, MG #### [facility] [address] [place] [address] Dr. Emilie Jeronimo TSHon 07-11-2022 TSH 3.616 uIU/mL Normal 0.358-3.740 [facility] Comment on above: Performed By: #### R ENAL, MG #### [facility] [address] [place] [address] Dr. Emilie Jeronimo VITAMIN B12on 07-11-2022 Cobalamin (Vitamin B12) [Mass/Vol] 321.0 pg/mL Normal 193.0-986.0 [facility] Comment on above: Performed By: #### R ENAL, MG #### [facility] [address] [place] [address] Dr. Emilie Jeronimo Tobacco Screening.on 022 Fall risk assessment a) No falls within the last year [facility] y [address] DO Work Phone: Tobacco use status CP b) No [facility] 250 DO Work Phone: CBC AUTO DIFFon 06-15-2022 BASO # 0.0 103/ul Normal 0.0-0.1 [facility] Comment on above: Performed By: #### C BC #### [facility] [address] [place] [address] Dr. Emilie Jeronimo Basophils/100 WBC (Bld) 0.4 % Normal 0.2-2.0 [facility] Comment on above: Performed By: #### C BC #### [facility] [address] [place] [address] Dr. Emilie Jeronimo EO # 0.2 103/ul Normal 0.0-0.7 [facility] Comment on above: Performed By: #### C BC #### [facility] [address] [place] [address] Dr. Emilie Jeronimo Eosinophils/100 WBC (Bld) 2.4 % Normal 0.9-7.0 [facility] Comment on above: Performed By: #### C BC #### [facility] [address] [place] [address] Dr. Emilie Jeronimo Erythrocyte distribution width (RBC) [Ratio] 12.8 % Normal 11.0-15.0 [facility] Comment on above: Performed By: #### C BC #### [facility] [address] [place] [address] Dr. Emilie Jeronimo Hematocrit (Bld) [Volume fraction] 38.3 % Normal 36.0-48.0 [facility] Comment on above: Performed By: #### C BC #### [facility] [address] [place] [address] Dr. Emilie Jeronimo Hemoglobin (Bld) [Mass/Vol] 12.5 g/dL Normal 12.0-16.0 [facility] Comment on above: Performed By: #### C BC #### [facility] [address] [place] [address] Dr. Emilie Jeronimo IG # 0.04 10e3/ul Critically high 0.00-0.03 [facility] Comment on above: Performed By: #### C BC #### [facility] [address] [place] [address] Dr. Emilie Jeronimo IG % 0.6 % Critically high 0.0-0.5 [facility] Comment on above: Performed By: #### C BC #### [facility] [address] [place] [address] Dr. Emilie Jeronimo LYMPH # 1.9 103/ul Normal 1.2-3.8 [facility] Comment on above: Performed By: #### C BC #### [facility] [address] [place] [address] Dr. Emilie Jeronimo Lymphocytes/100 WBC (Bld) 27.9 % Normal 20.5-60.0 [facility] Comment on above: Performed By: #### C BC #### [facility] [address] [place] [address] Dr. Emilie Jeronimo MANUAL DIFF REQ NO Normal [facility] Comment on above: Performed By: #### C BC #### [facility] [address] [place] [address] Dr. Emilie Jeronimo MCH (RBC) [Entitic mass] 32.2 pg Normal 26.7-34.0 [facility] Comment on above: Performed By: #### C BC #### [facility] [address] [place] [address] Dr. Emilie Jeronimo MCHC (RBC) [Mass/Vol] 32.6 g/dL Normal 29.9-35.2 [facility] Comment on above: Performed By: #### C BC #### [facility] [address] [place] [address] Dr. Emilie Jeronimo MCV (RBC) [Entitic vol] 98.7 fL Normal 81.0-99.0 [facility] Comment on above: Performed By: #### C BC #### [facility] [address] [place] [address] Dr. Emilie Jeronimo MONO # 0.5 103/ul Normal 0.3-0.8 [facility] Comment on above: Performed By: #### C BC #### [facility] [address] [place] [address] Dr. Emilie Jeronimo Monocytes/100 WBC (Bld) 7.3 % Normal 1.7-12.0 [facility] Comment on above: Performed By: #### C BC #### [facility] [address] [place] [address] Dr. Emilie Jeronimo NEUT # 4.1 103/ul Normal 1.4-6.5 [facility] Comment on above: Performed By: #### C BC #### [facility] [address] [place] [address] Dr. Emilie Jeronimo Neutrophils/100 WBC (Bld) 61.4 % Normal 43.0-75.0 [facility] Comment on above: Performed By: #### C BC #### [facility] [address] [address] [address] Emilie Jeronimo Platelet mean volume (Bld) [Entitic vol] 9.2 fL Critically low 9.5-13.5 [facility] Comment on above: Performed By: #### C BC #### [facility] [address] [address] [address] Emilie Jeronimo PLT 201 103/ul Normal 150-450 [facility] Comment on above: Performed By: #### C BC #### [facility] [address] [address] [address] Emilie Jeronimo RBC 3.88 106/ul Critically low 4.20-5.40 [facility] Comment on above: Performed By: #### C BC #### [facility] [address] [address] [address] Emilie Jeronimo WBC 6.7 103/ul Normal 4.0-11.0 [facility] Comment on above: Performed By: #### C BC #### [facility] [address] [place] [address] Dr. Emilie Jeronimo LIPID PROFILEon 06-15-2022 CHOL-HDL RATIO NORM SEE BELOW Normal [facility] Comment on above: Result Comment: 3.3 - 4.4 LOW RISK 4.4 - 7.1 AVERAGE RISK 7.1 - 11.0 MODERATE RISK >11.0 HIGH RISK Performed By: #### A ST, ALT, LIPID, BMP #### [facility] [address] [address] [address] Emilie Jeronimo Cholesterol [Mass/Vol] 124 mg/dL Normal <=200 [facility] Comment on above: Performed By: #### A ST, ALT, LIPID, BMP #### [facility] [address] [address] [address] Emilie Jeronimo Cholesterol in HDL [Mass/Vol] 81 mg/dL Critically high 40-60 [facility] Comment on above: Performed By: #### A ST, ALT, LIPID, BMP #### [facility] [address] [address] [address] Emilie Jeronimo Cholesterol in LDL [Mass/Vol] 27.6 mg/dL Normal [facility] Comment on above: Performed By: #### A ST, ALT, LIPID, BMP #### [facility] [address] [address] [address] Emilie Jeronimo Cholesterol.total/C holesterol in HDL [Mass ratio] 1.5 {ratio} Normal [facility] Comment on above: Performed By: #### A ST, ALT, LIPID, BMP #### [facility] [address] [address] [address] Emilie Jeronimo HDL NORMAL > or = 60 mg/dl - LO W CARDIOVASCULAR RISK <40 mg/dl - HIGH CARDIOVASCULAR RISK Normal [facility] Comment on above: Performed By: #### A ST, ALT, LIPID, BMP #### [facility] [address] [place] [address] Dr. Emilie Jeronimo LDL CALC NORMAL SEE BELOW Normal [facility] Comment on above: Result Comment: <100 mg/dl OPTIMAL 100 - 129 mg/dl NEAR OR ABOVE OPTIMAL 130 - 159 mg/dl BORDERLINE HIGH 160 - 189 mg/dl HIGH >190 mg/dl VERY HIGH Performed By: #### A ST, ALT, LIPID, BMP #### [facility] [address] [address] [address] Emilie Jeronimo Triglyceride [Mass/Vol] 77 mg/dL Normal <=150 [facility] Comment on above: Performed By: #### A ST, ALT, LIPID, BMP #### [facility] [address] [address] [address] Emilie Jeronimo VLDL CALC 15.4 mg/dL Normal [facility] Comment on above: Performed By: #### A ST, ALT, LIPID, BMP #### [facility] [address] [address] [address] Emilie Jeronimo PROF CHEM 8 (BAS METB)on Anion gap [Moles/Vol] 12.7 mmol/L Normal [facility] Comment on above: Performed By: #### A ST, ALT, LIPID, BMP #### [facility] [address] [address] [address] Emilie Jeronimo Calcium [Mass/Vol] 8.5 mg/dL Normal 8.5-10.1 [facility] Comment on above: Performed By: #### A ST, ALT, LIPID, BMP #### [facility] [address] [address] [address] Emilie Jeronimo Chloride [Moles/Vol] 102 mmol/L Normal 98-107 [facility] Comment on above: Performed By: #### A ST, ALT, LIPID, BMP #### [facility] [address] [address] [address] Emilie Jeronimo CO2 [Moles/Vol] 30.1 mmol/L Normal 21.0-32.0 [facility] Comment on above: Performed By: #### A ST, ALT, LIPID, BMP #### [facility] [address] [place] [address] Dr. Emilie Jeronimo Creatinine [Mass/Vol] 0.76 mg/dL Normal 0.55-1.02 [facility] Comment on above: Performed By: #### A ST, ALT, LIPID, BMP #### [facility] [address] [place] [address] Dr. Emilie Jeronimo EGFR-AF SAMMARINESE >60 Normal >=60 [facility] Comment on above: Performed By: #### A ST, ALT, LIPID, BMP #### [facility] [address] [place] [address] Dr. Emilie Jeronimo EGFR-NON AF SAMMARINESE >60 Normal >=60 [facility] Comment on above: Performed By: #### A ST, ALT, LIPID, BMP #### [facility] [address] [place] [address] Dr. Emilie Jeronimo Glucose [Mass/Vol] 97 mg/dL Normal 74-106 [facility] Comment on above: Performed By: #### A ST, ALT, LIPID, BMP #### [facility] [address] [place] [address] Dr. Emilie Jeronimo Potassium [Moles/Vol] 3.8 mmol/L Normal 3.5-5.1 [facility] Comment on above: Performed By: #### A ST, ALT, LIPID, BMP #### [facility] [address] [address] [address] Emilie Jeronimo Sodium [Moles/Vol] 141 mmol/L Normal 136-145 [facility] Comment on above: Performed By: #### A ST, ALT, LIPID, BMP #### [facility] [address] [address] [address] Emilie Jeronimo Urea nitrogen [Mass/Vol] 21.0 mg/dL Critically high 7.0-18.0 [facility] Comment on above: Performed By: #### A ST, ALT, LIPID, BMP #### [facility] [address] [address] [address] Emilie Jeronimo Urea nitrogen/Creatinine [Mass ratio] 27.6 mg/mg Normal [facility] Comment on above: Performed By: #### A ST, ALT, LIPID, BMP #### [facility] [address] [place] [address] Dr. Emilie Yoder 06-15-2022 AST [Catalytic activity/Vol] 22 U/L Normal 15-37 [facility] Comment on above: Performed By: #### A ST, ALT, LIPID, BMP #### [facility] [address] [place] [address] Dr. Emilie Mcarthur 06-15-2022 ALT [Catalytic activity/Vol] 21 U/L Normal 14-59 [facility] Comment on above: Performed By: #### A ST, ALT, LIPID, BMP #### [facility] [address] [place] [address] ABD/PELVIS WO CONon [...] JAYLEEN GREER Date: 2022-04-21 10:40 Normal [facility] PTH INTACTon 03-24-2022 PTH, Intact 4 pg/mL Critically low 15-[address] [facility] Comment on above: Performed By: #### P THINT #### [facility] [address] [place] [address] Dr. Emilie Jeronimo CBC AUTO DIFFon 03-23-2022 BASO # 0.0 103/ul Normal 0.0-0.1 [facility] Comment on above: Performed By: #### R ZEESHAN MG #### [facility] [address] [place] [address] Dr. Emilie Jeronimo Basophils/100 WBC (Bld) 0.5 % Normal 0.2-2.0 [facility] Comment on above: Performed By: #### R ZEESHAN MG #### [facility] [address] [place] [address] Dr. Emilie Jeronimo EO # 0.1 103/ul Normal 0.0-0.7 [facility] Comment on above: Performed By: #### Jovany BYERS MG #### [facility] [address] [place] [address] Dr. Emilie Jeronimo Eosinophils/100 WBC (Bld) 1.3 % Normal 0.9-7.0 [facility] Comment on above: Performed By: #### R ENMICHELLE, MG #### [facility] [address] [place] [address] Dr. Emilie Jeronimo Erythrocyte distribution width (RBC) [Ratio] 13.0 % Normal 11.0-15.0 [facility] Comment on above: Performed By: #### R ENMICHELLE, MG #### [facility] [address] [place] [address] Dr. Emilie Jeronimo Hematocrit (Bld) [Volume fraction] 34.2 % Critically low 36.0-48.0 [facility] Comment on above: Performed By: #### R ENMICHELLE, MG #### [facility] [address] [place] [address] Dr. Emilie Jeronimo Hemoglobin (Bld) [Mass/Vol] 11.3 g/dL Critically low 12.0-16.0 [facility] Comment on above: Performed By: #### R ENAL, MG #### [facility] [address] [place] [address] Dr. Emilie Jeronimo IG # 0.02 10e3/ul Normal 0.00-0.03 [facility] Comment on above: Performed By: #### R ENMICHELLE, MG #### [facility] [address] [place] [address] Dr. Emilie Jeronimo IG % 0.3 % Normal 0.0-0.5 [facility] Comment on above: Performed By: #### R ENAL, MG #### [facility] [address] [place] [address] Dr. Emilie Jeronimo LYMPH # 1.4 103/ul Normal 1.2-3.8 [facility] Comment on above: Performed By: #### R ENAL, MG #### [facility] [address] [place] [address] Dr. Emilie Jeronimo Lymphocytes/100 WBC (Bld) 24.0 % Normal 20.5-60.0 [facility] Comment on above: Performed By: #### R ENAL, MG #### [facility] [address] [place] [address] Dr. Emilie Jeronimo MANUAL DIFF REQ NO Normal [facility] Comment on above: Performed By: #### R ENAL, MG #### [facility] [address] [place] [address] Dr. Emilie Jeronimo MCH (RBC) [Entitic mass] 32.5 pg Normal 26.7-34.0 [facility] Comment on above: Performed By: #### R ENAL, MG #### [facility] [address] [place] [address] Dr. Emilie Jeronimo MCHC (RBC) [Mass/Vol] 33.0 g/dL Normal 29.9-35.2 [facility] Comment on above: Performed By: #### R ENAL, MG #### [facility] [address] [place] [address] Dr. Emilie Jeronimo MCV (RBC) [Entitic vol] 98.3 fL Normal 81.0-99.0 [facility] Comment on above: Performed By: #### R ENAL, MG #### [facility] [address] [place] [address] Dr. Emilie Jeronimo MONO # 0.5 103/ul Normal 0.3-0.8 [facility] Comment on above: Performed By: #### R ENAL, MG #### [facility] [address] [place] [address] Dr. Emilie Jeronimo Monocytes/100 WBC (Bld) 8.7 % Normal 1.7-12.0 [facility] Comment on above: Performed By: #### R ENAL, MG #### [facility] [address] [place] [address] Dr. Emilie Jeronimo NEUT # 3.9 103/ul Normal 1.4-6.5 [facility] Comment on above: Performed By: #### R ENAL, MG #### [facility] [address] [place] [address] Dr. Emilie Jeronimo Neutrophils/100 WBC (Bld) 65.2 % Normal 43.0-75.0 [facility] Comment on above: Performed By: #### R ENAL, MG #### [facility] [address] [address] [address] Emilie Jeronimo Platelet mean volume (Bld) [Entitic vol] 10.0 fL Normal 9.5-13.5 [facility] Comment on above: Performed By: #### R ENAL, MG #### [facility] [address] [address] [address] Emilie Jeronimo PLT 197 103/ul Normal 150-450 [facility] Comment on above: Performed By: #### R ENAL, MG #### [facility] [address] [place] [address] Dr. Emilie Jeronimo RBC 3.48 106/ul Critically low 4.20-5.40 [facility] Comment on above: Performed By: #### R ENAL, MG #### [facility] [address] [place] [address] Dr. Emilie Jeronimo WBC 6.0 103/ul Normal 4.0-11.0 [facility] Comment on above: Performed By: #### R ENAL, MG #### [facility] [address] [place] [address] Dr. Emilie Jeronimo PROF CHEM 8 (BAS METB)on Anion gap [Moles/Vol] 10.3 mmol/L Normal [facility] Comment on above: Performed By: #### R ENAL, MG #### [facility] [address] [place] [address] Dr. Emilie Jeronimo Calcium [Mass/Vol] 6.1 mg/dL Critically low 8.5-10.1 [facility] Comment on above: Performed By: #### R ENAL, MG #### [facility] [address] [place] [address] Dr. Emilie Jeronimo Chloride [Moles/Vol] 103 mmol/L Normal 98-107 [facility] Comment on above: Performed By: #### R ENAL, MG #### [facility] [address] [place] [address] Dr. Emilie Jeronimo CO2 [Moles/Vol] 31.8 mmol/L Normal 21.0-32.0 [facility] Comment on above: Performed By: #### R ENAL, MG #### [facility] [address] [place] [address] Dr. Emilie Jeronimo Creatinine [Mass/Vol] 0.70 mg/dL Normal 0.55-1.02 [facility] Comment on above: Performed By: #### R ENAL, MG #### [facility] [address] [address] [address] Emilie Jeronimo EGFR-AF SAMMARINESE >60 Normal >=60 [facility] Comment on above: Performed By: #### R ENAL, MG #### [facility] [address] [place] [address] Dr. Emilie Jeronimo EGFR-NON AF SAMMARINESE >60 Normal >=60 [facility] Comment on above: Performed By: #### R ENAL, MG #### [facility] [address] [place] [address] Dr. Emilie Jeronimo Glucose [Mass/Vol] 120 mg/dL Critically high 74-106 [facility] Comment on above: Performed By: #### R ENAL, MG #### [facility] [address] [place] [address] Dr. Emilie Jeronimo Potassium [Moles/Vol] 3.1 mmol/L Critically low 3.5-5.1 [facility] Comment on above: Performed By: #### R ENAL, MG #### [facility] [address] [address] [address] Emilie Jeronimo Sodium [Moles/Vol] 142 mmol/L Normal 136-145 [facility] Comment on above: Performed By: #### R ENAL, MG #### [facility] [address] [place] [address] Dr. Emilie Jeronimo Urea nitrogen [Mass/Vol] 21.0 mg/dL Critically high 7.0-18.0 [facility] Comment on above: Performed By: #### R ENAL, MG #### [facility] [address] [place] [address] Dr. Emilie Jeronimo Urea nitrogen/Creatinine [Mass ratio] 30.0 mg/mg Normal [facility] Comment on above: Performed By: #### R ENAL, MG #### [facility] [address] [place] [address] Dr. Emilie Jeronimo MAGNESIUMon 03-22-2022 Magnesium [Mass/Vol] 1.5 mg/dL Critically low 1.8-2.4 [facility] Comment on above: Performed By: #### R ENAL, MG #### [facility] [address] [place] [address] Dr. Emilie Jeronimo RENAL FUNCTION PANELon 03-22 Albumin [Mass/Vol] 3.6 g/dL Normal 3.4-5.0 [facility] Comment on above: Performed By: #### R ENAL, MG #### [facility] [address] [place] [address] Dr. Emilie Jeronimo Calcium [Mass/Vol] 6.4 mg/dL Critically low 8.5-10.1 [facility] Comment on above: Performed By: #### R ENAL, MG #### [facility] [address] [place] [address] Dr. Emilie Jeronimo Chloride [Moles/Vol] 101 mmol/L Normal 98-107 [facility] Comment on above: Performed By: #### R ENAL, MG #### [facility] [address] [place] [address] Dr. Emilie Jeronimo CO2 [Moles/Vol] 31.4 mmol/L Normal 21.0-32.0 [facility] Comment on above: Performed By: #### R ENAL, MG #### [facility] [address] [place] [address] Dr. Emilie Jeronimo Creatinine [Mass/Vol] 0.77 mg/dL Normal 0.55-1.02 [facility] Comment on above: Performed By: #### R ENAL, MG #### [facility] [address] [place] [address] Dr. Emilie Jeronimo EGFR-AF SAMMARINESE >60 Normal >=60 [facility] Comment on above: Performed By: #### R ENAL, MG #### [facility] [address] [place] [address] Dr. Emilie Jeronimo EGFR-NON AF SAMMARINESE >60 Normal >=60 [facility] Comment on above: Performed By: #### R ENAL, MG #### [facility] [address] [address] [address] Emilie Jeronimo Glucose [Mass/Vol] 150 mg/dL Critically high 74-106 [facility] Comment on above: Performed By: #### R ENAL, MG #### [facility] [address] [address] [address] Emilie Jeronimo Phosphate [Mass/Vol] 4.8 mg/dL Critically high 2.6-4.7 [facility] Comment on above: Performed By: #### R ENAL, MG #### [facility] [address] [place] [address] Dr. Emilie Jeronimo Potassium [Moles/Vol] 2.7 mmol/L Critically low 3.5-5.1 [facility] Comment on above: Result Comment: TEST REPEATED CRITICAL VALUE VERIFIED Performed By: #### R ENAL, MG #### [facility] [address] [place] [address] Dr. Emilie Jeronimo Sodium [Moles/Vol] 142 mmol/L Normal 136-145 [facility] Comment on above: Performed By: #### R ENAL, MG #### [facility] [address] [place] [address] Dr. Emilie Jeronimo Urea nitrogen [Mass/Vol] 29.0 mg/dL Critically high 7.0-18.0 [facility] Comment on above: Performed By: #### R ENAL, MG #### [facility] [address] [place] [address] Dr. Emilie Jeronimo VITAMIN D 25 OHon 03-22-2022 VIT D 25-OH 32.5 ng/mL Normal [facility] Comment on above: Performed By: #### V ITAD #### [facility] [address] [place] [address] Dr. Emilie Jeronimo VIT D RANGES SEE BELOW Normal [facility] Comment on above: Result Comment: <20 ng/mL Vit D deficient 20 - <30 ng/mL Vit D insufficient 30 - 100 ng/mL Vit D sufficient >100 ng/mL Potential Toxicity Performed By: #### V ITAD #### [facility] [address] [address] [address] Emilie Jeronimo Tobacco Screening.on 022 Adult depression screening assessment No [facility] DO Work Phone: Fall risk assessment a) No falls within the last year [facility] DO Work Phone: Tobacco use status CPHS b) No [facility] 250 DO Work Phone: Automated erythrocytes count in urine sediment (number/area)on 02-17-2021 RBC Auto (Urine sed) [#/Area] 0-1 [HPF] [facility] Automated leukocytes count i n urine sediment (number/area)on 02-17-2021 WBC Auto (Urine sed) [#/Area] 20-49 [HPF] [facility] Basophils Auto (Bld) [#/Vol] on 02-17-2021 Basophils (Bld) [#/Vol] 0.1 10*3/uL 0.0-0.2 [facility] Basophils/100 WBC Auto (Bld) on 02-17-2021 Basophils/100 WBC (Bld) 0.8 % [facility] Bilirubin Test strip Ql (U)o n 02-17-2021 Bilirubin Ql (U) Negative Negative [facility] Blood hemoglobin measurement (mass/volume)on 02-17-2021 Hemoglobin (Bld) [Mass/Vol] 12.6 g/dL 11.8-15.4 [facility] Blood leukocytes automated c ount (number/volume)on 02-17-2021 WBC (Bld) [#/Vol] 7.3 10*3/uL 4.5-11.0 [facility] Color Auto (U)on 02-17-2021 Color (U) Yellow Yellow [facility] Creatinine and Glomerular fi ltration rate.predicted panel (S/P/Bld)on 02-17-2021 Creatinine [Mass/Vol] 0.78 mg/dL 0.44-1.03 [facility] Eosinophils Auto (Bld) [#/Vo l]on 02-17-2021 Eosinophils (Bld) [#/Vol] 0.2 10*3/uL 0.0-0.45 [facility] Eosinophils/100 WBC Auto (Bl d)on 02-17-2021 Eosinophils/100 WBC (Bld) 2.2 % [facility] Erythrocyte distribution wid th Auto (RBC) [Ratio]on 02-17-2021 Erythrocyte distribution width (RBC) [Ratio] 14.5 % 11.9-15.3 [facility] Estimated glomerular filtrat ion rate (GFR) non- Americanon 02-17-2021 GFR/1.73 sq M.predicted among non-blacks MDRD (S/P/Bld) [Vol rate/Area] > 60 mL/Min [facility] Hematocrit Auto (Bld) [Volum e fraction]on 02-17-2021 Hematocrit (Bld) [Volume fraction] 37.5 % 34.0-46.4 [facility] Ketones Auto test strip (U) [Mass/Vol]on 02-17-2021 Ketones (U) [Mass/Vol] Negative Negative [facility] - Hematology and Cell countson 02-17-2021 Nucleated RBC/100 WBC (Bld) [Ratio] 0.0 % 0-0.5 [facility] - Urinalysison Hyaline casts LM Ql (Urine sed) 0-8 [LPF] [facility] Lymphocytes Auto (Bld) [#/Vo l]on 02-17-2021 Lymphocytes (Bld) [#/Vol] 1.6 10*3/uL 1.00-4.8 [facility] Lymphocytes/100 WBC Auto (Bl d)on 02-17-2021 Lymphocytes/100 WBC (Bld) 21.5 % [facility] MCH Auto (RBC) [Entitic mass ]on 02-17-2021 MCH (RBC) [Entitic mass] 32.4 pg 24.7-34.3 [facility] MCHC Auto (RBC) [Mass/Vol]on 02-17-2021 MCHC (RBC) [Mass/Vol] 33.6 g/dL 32.0-35.0 [facility] MCV Auto (RBC) [Entitic vol] on 02-17-2021 MCV (RBC) [Entitic vol] 96.3 fL 80-100 [facility] Monocytes Auto (Bld) [#/Vol] on 02-17-2021 Monocytes (Bld) [#/Vol] 0.7 10*3/uL 0.0-0.8 [facility] Monocytes/100 WBC Auto (Bld) on 02-17-2021 Monocytes/100 WBC (Bld) 9.6 % [facility] Neutrophils Auto (Bld) [#/Vo l]on 02-17-2021 Neutrophils (Bld) [#/Vol] 4.8 10*3/uL 1.8-7.7 [facility] Neutrophils/100 WBC Auto (Bl d)on 02-17-2021 Neutrophils/100 WBC (Bld) 65.9 % [facility] Nitrite Test strip Ql (U)on 02-17-2021 Nitrite Ql (U) Negative Negative [facility] No Panel Informationon 02-17 Estimated GFR () > 60 mL/Min [facility] Comment on above: GFR estimated refere nce range: According to KDOQI guidelines, <60 ml/min/1.73m2 is sufficient to diagnose a patient with chronic kidney disease. Pharmacy Creatinine Clearance (Chem N/A [facility] Platelet mean volume Auto (B ld) [Entitic vol]on 02-17-2021 Platelet mean volume (Bld) [Entitic vol] 7.6 fL 6.3-10.7 [facility] Platelets Auto (Bld) [#/Vol] on 02-17-2021 Platelets (Bld) [#/Vol] 206 10*3/uL 150-450 [facility] Protein Auto test strip (U) [Mass/Vol]on 02-17-2021 Protein (U) [Mass/Vol] Negative Negative [facility] RBC Auto (Bld) [#/Vol]on RBC (Bld) [#/Vol] 3.89 10*6/uL 3.60-5.00 [facility] Serum or plasma calcium twan urement (mass/volume)on 02-17-2021 Calcium [Mass/Vol] 7.6 mg/dL 8.2-10.2 [facility] Serum or plasma chloride jewel surement (moles/volume)on 02-17-2021 Chloride [Moles/Vol] 100 mmol/L 95-114 [facility] Serum or plasma glucose twan urement (mass/volume)on 02-17-2021 Glucose [Mass/Vol] 97 mg/dL 70-100 [facility] Comment on above: ADA recommended refe rence rangeRandom Glucose Reference Range is dependent on time and content of last meal. Glucose of more than 200 mg/dL in a nonstressed, ambulatory subject supports the diagnosis of Diabetes Mellitus. Serum or plasma potassium me asurement (moles/volume)on 02-17-2021 Potassium [Moles/Vol] 3.8 mmol/L 3.5-5.1 [facility] Serum or plasma sodium measu rement (moles/volume)on 02-17-2021 Sodium [Moles/Vol] 139 mmol/L 136-146 [facility] Serum or plasma total carbon dioxide measurement (moles/volume)on 02-17-2021 CO2 [Moles/Vol] 28.3 mmol/L 22.0-30.0 [facility] Serum or plasma urea nitroge n measurement (mass/volume)on 02-17-2021 Urea nitrogen [Mass/Vol] 22 mg/dL 9-23 [facility] Specific gravity Auto test s trip (U) [Rel density]on 02-17-2021 Specific gravity (U) [Rel density] 1.021 1.001-1.030 [facility] Squamous epithelial cells de tection in urine sediment by light microscopyon 02-17-2021 Epithelial cells.squamous LM Ql (Urine sed) 0-1 [HPF] [facility] Urine bacteria detection by automated methodon 02-17-2021 Bacteria Auto Ql (U) 2+ None Seen [facility] Urine clarity by refractomet ry automatedon 04-21-2021 Clarity Refractometry automated (U) Clear Clear [facility] Urine culture routineon 01-29 Bacteria identified Cx Nom (U) Aerococcus urinae [facility] Urine glucose measurement by automated test strip (mass/volume)on 02-17-2021 Glucose Auto test strip (U) [Mass/Vol] Normal mg/dL Normal [facility] Urine hemoglobin detection b y automated test stripon 02-17-2021 Hemoglobin Auto test strip Ql (U) Negative Negative [facility] Urine leukocyte esterase det ection by automated test stripon 02-17-2021 Leukocyte esterase Auto test strip Ql (U) 3+ Negative [facility] Urobilinogen Auto test strip (U) [Mass/Vol]on 02-17-2021 Urobilinogen (U) [Mass/Vol] Normal mg/dL Normal [facility] Yeast detection in urine sed iment by light microscopyon 02-17-2021 Yeast LM Ql (Urine sed) None seen [HPF] None Seen [facility] pH Auto test strip (U)on pH (U) 5.0 [pH] 5.0-9.0 [facility] Cesar 03-12-2020 ALT [Catalytic activity/Vol] 16 U/L Normal 7 - 45 [facility] Comment on above: Result Comment: Josee ents treated with Sulfasalazine may generate falsely decreased results for ALT. Performed By: #### A LT #### [address] [address] Jamari 03-12-2020 AST [Catalytic activity/Vol] 22 U/L Normal 9 - 39 [facility] Comment on above: Performed By: #### A ST #### [address] [address] CREATININEon 03-12-2020 Creatinine [Mass/Vol] mg/dL Normal >60 [facility] Comment on above: Result Comment: CALC ULATIONS OF ESTIMATED GFR ARE PERFORMED USING THE MDRD STUDY EQUATION FOR THE IDMS-TRACEABLE CREATININE METHODS. CLIN CHEM 2007;53:766-72 Performed By: #### C REAT #### [address] [address] Creatinine [Mass/Vol] 0.84 mg/dL Normal 0.50 - 1.05 [facility] Comment on above: Performed By: #### C REAT #### [address] [address] ELECTROLYTE PANELon 03-12-20 20 Anion gap [Moles/Vol] 15 mmol/L Normal 10 - 20 [facility] Comment on above: Performed By: #### E LECT #### [address] [address] Chloride [Moles/Vol] 102 mmol/L Normal 98 - 107 [facility] Comment on above: Performed By: #### E LECT #### [address] [address] HCO3 (Bld) [Moles/Vol] 30 mmol/L Normal 21 - 32 [facility] Comment on above: Performed By: #### E LECT #### [address] [address] Potassium [Moles/Vol] 4.0 mmol/L Normal 3.5 - 5.3 [facility] Comment on above: Performed By: #### E LECT #### [address] [address] Sodium [Moles/Vol] 143 mmol/L Normal 136 - 145 [facility] Comment on above: Performed By: #### E LECT #### [address] [address] LIPID PANEL (CORONARY RISK 2 )on 03-12-2020 Cholesterol [Mass/Vol] 99 mg/dL Normal 0 - 199 [facility] Comment on above: Result Comment: . AGE [...] dosing. Performed By: #### L IPID #### [address] [address] Cholesterol in HDL [Mass/Vol] 60.0 mg/dL Normal [facility] Comment on above: Result Comment: . AGE VERY LOW LOW NORMAL HIGH 0-19 Y < 35 < 40 40-45 ---- 20-24 Y ---- < 40 >45 ---- >24 Y ---- < 40 40-60 >60 . Performed By: #### L IPID #### [address] [address] Cholesterol in LDL [Mass/Vol] 23 mg/dL Normal 0 - 99 [facility] Comment on above: Result Comment: . NEAR BORD AGE DESIRABLE OPTIMAL HIGH HIGH VERY HIGH 0-19 Y 0 - 109 --- 110-129 >/= 130 ---- 20-24 Y 0 - 119 --- 120-159 >/= 160 ---- >24 Y 0 - 99 100-129 130-159 160-189 >/=190 . Performed By: #### L IPID #### [address] [address] Cholesterol in VLDL [Mass/Vol] 16 mg/dL Normal 0 - 40 [facility] Comment on above: Performed By: #### L IPID #### [address] [address] Cholesterol.total/C holesterol in HDL [Mass ratio] 1.7 {ratio} Normal [facility] Comment on above: Result Comment: REF VALUES DESIRABLE < 3.4 HIGH RISK > 5.0 Performed By: #### L IPID #### [address] [address] Triglyceride [Mass/Vol] 79 mg/dL Normal 0 - 149 [facility] Comment on above: Result Comment: . AGE [...] dosing. Performed By: #### L IPID #### [address] [address] PARATHYROID HORMONE,INTACTon 03-12-2020 PARATHYROID HORMONE,INTACT < 6.3 Low 18.5 - 88.0 [facility] Comment on above: Result Comment: Josee ents receiving more than 5 mg/day of biotin may have interference in test results. A sample should be taken no sooner than eight hours after previous dose. Contact the testing laboratory for additional information. Performed By: #### P TH #### [address] [address] RENAL FUNCTION PANELon 03-12 Albumin [Mass/Vol] 4.3 g/dL Normal 3.4 - 5.0 [facility] Comment on above: Performed By: #### T SH2 #### [address] [address] Anion gap [Moles/Vol] 16 mmol/L Normal 10 - 20 [facility] Comment on above: Performed By: #### T SH2 #### [address] [address] Calcium [Mass/Vol] 8.2 mg/dL Low 8.6 - 10.3 [facility] Comment on above: Performed By: #### T SH2 #### [address] [address] Chloride [Moles/Vol] 102 mmol/L Normal 98 - 107 [facility] Comment on above: Performed By: #### T SH2 #### [address] [address] Creatinine [Mass/Vol] 0.82 mg/dL Normal 0.50 - 1.05 [facility] Comment on above: Performed By: #### T SH2 #### [address] [address] GFR- AM. >60 Normal >60 [facility] Comment on above: Result Comment: CALC ULATIONS OF ESTIMATED GFR ARE PERFORMED USING THE MDRD STUDY EQUATION FOR THE IDMS-TRACEABLE CREATININE METHODS. CLIN CHEM 2007;53:766-72 Performed By: #### T SH2 #### [address] [address] GFR-NON AM. >60 Normal >60 [facility] Comment on above: Performed By: #### T SH2 #### [address] [address] Glucose [Mass/Vol] 97 mg/dL Normal 74 - 99 [facility] Comment on above: Performed By: #### T SH2 #### [address] [address] HCO3 (Bld) [Moles/Vol] 29 mmol/L Normal 21 - 32 [facility] Comment on above: Performed By: #### T SH2 #### [address] [address] Phosphate [Mass/Vol] 5.3 mg/dL High 2.5 - 4.9 [facility] Comment on above: Result Comment: The performance characteristics of phosphorus testing in heparinized plasma have been validated by the individual laboratory site where testing is performed. Testing on heparinized plasma is not approved by the FDA; however, such approval is not necessary. Performed By: #### T SH2 #### [address] [address] Potassium [Moles/Vol] 3.7 mmol/L Normal 3.5 - 5.3 [facility] Comment on above: Performed By: #### T SH2 #### [address] [address] Sodium [Moles/Vol] 143 mmol/L Normal 136 - 145 [facility] Comment on above: Performed By: #### T SH2 #### [address] [address] Urea nitrogen [Mass/Vol] 23 mg/dL Normal 6 - 23 [facility] Comment on above: Performed By: #### T SH2 #### [address] [address] UREA NITROGENon 03-12-2020 Urea nitrogen [Mass/Vol] 23 mg/dL Normal 6 - 23 [facility] Comment on above: Performed By: #### U TARAS #### [address] [address] VITAMIN D, 25-HYDROXYon 02-27 VITAMIN D, 25-HYDROXY 43 ng/mL Normal [facility] Comment on above: Result Comment: . DEFICIENCY: < 20 NG/ML INSUFFICIENCY: 20-29 NG/ML SUFFICIENCY: 30-100 NG/ML THIS ASSAY ACCURATELY QUANTIFIES THE SUM OF VITAMIN D3, 25-HYDROXY AND VIT D2,25-HYDROXY. Performed By: #### T SH2 #### [address] [address] THYROXINEon 09-17-2019 T4 [Mass/Vol] 8.0 ug/dL Normal 4.5 - 11.1 [facility] Comment on above: Performed By: #### T 4 #### [address] [address] THYROXINE,FREEon 09-17-2019 THYROXINE,FREE 0.70 ng/dL Normal 0.61 - 1.27 [facility] Comment on above: Result Comment: Thyr oxine Free testing is performed using different testing methodology at [facility] than at other [facility]. Direct result comparisons should only be made within the same method. Patients receiving more than 5 mg/day of biotin may have interference in test results. A sample should be taken no sooner than eight hours after previous dose. Performed By: #### T 4FRE #### [address] [address] TSHon 09-17-2019 TSH Qn 6.25 m[IU]/L High 0.44 - 3.98 [facility] Comment on above: Result Comment: TSH testing is performed using different testing methodology at [facility] than at other [facility]. Direct result comparisons should only be made within the same method. Performed By: #### T [facility] #### [address] [address] Vital Signs Date Time Vital Sign Value Performing Clinician Facility 08-07-2024 10:44-0400 Body height 144.8 cm Seema Moz [employer] Work Phone: [facility] 08-07-2024 10:44-0400 Body mass index (BMI) [Ratio] 22.55 kg/m2 Seema Tateholz [employer] Work Phone: [facility] 08-07-2024 10:44-0403 Body temperature 98.8 [degF] Seema Tateholz [employer] Work Phone: [facility] 08-07-2024 10:44-0402 Body weight 47.27 kg Seema Tateholz [employer] Work Phone: [facility] 08-07-2024 10:44-0400 Heart rate 95 /min Seema Aichholz [employer] Work Phone: [facility] 08-07-2024 10:44-0409 Respiratory rate 18 /min Seema Aichholz [employer] Work Phone: [facility] 08-07-2024 10:44-0400 SaO2% (BldA) [Mass fraction] 98 % Seema Tateholz [employer] Work Phone: [facility] 03-07-2024 11:44-0400 Body height 147.32 cm [facility] 03-07-2024 11:44-0400 Body mass index (BMI) [Ratio] 22.8 kg/m2 [facility] 03-07-2024 11:44-0400 Body temperature 97.6 [degF] [facility] 03-07-2024 11:44-0400 Body weight 49.44 kg [facility] 03-07-2024 11:44-0400 Diastolic blood pressure 60 mm[Hg] [facility] 03-07-2024 11:44-0400 Heart rate 96 /min [facility] 03-07-2024 11:44-0400 Respiratory rate 16 /min [facility] 03-07-2024 11:44-0400 SaO2% (BldA) [Mass fraction] 86 % [facility] 03-07-2024 11:44-0400 Systolic blood pressure 102 mm[Hg] [facility] 07-20-2023 10:40-0400 Body height 147.32 cm Pratik Derrick Naderer Work Phone: [facility] 250 DO Work Phone: 07-20-2023 10:40-0400 Body mass index (BMI) [Ratio] 21.11 kg/m2 Pratik Meza Naderer Work Phone: [facility] 250 DO Work Phone: 07-20-2023 10:40-0400 Body surface area Derived from formula 1.36 m2 Pratik Derrick Naderer Work Phone: [facility] 250 DO Work Phone: 07-20-2023 10:40-0400 Body weight 45.81 kg Pratik Meza Naderer Work Phone: [facility] 250 DO Work Phone: 07-20-2023 10:40-0400 Diastolic blood pressure 66 mm[Hg] Pratik Meza Naderer Work Phone: [facility] 250 DO Work Phone: 07-20-2023 10:40-0400 Heart rate 60 /min Pratik A Naderer Work Phone: [facility] 250 DO Work Phone: 07-20-2023 10:40-0400 Systolic blood pressure 100 mm[Hg] Pratik Meza Naderer Work Phone: [facility] 250 DO Work Phone: 02-08-2023 14:00-0400 Body height 147.32 cm Madhav Conrad Other [employer] Other 02-08-2023 14:00-0400 Body mass index (BMI) [Ratio] 22.57 kg/m2 Madhav Conrad Other [employer] Other 02-08-2023 14:00-0400 Body weight 48.99 kg Madhav Conrad Other [employer] Other 02-08-2023 14:00-0400 Diastolic blood pressure 60 mm[Hg] Madhav Conrad Other [employer] Other 02-08-2023 14:00-0400 Systolic blood pressure 105 mm[Hg] Madhav Conrad Other [employer] Other 01-12-2023 11:13-0400 Body height 147.32 cm Pratik Derrick Naderer Work Phone: [facility] DO Work Phone: 01-12-2023 11:13-0400 Body mass index (BMI) [Ratio] 21.95 kg/m2 Pratik Meza Naderer Work Phone: [facility] [employer] 250 DO Work Phone: 01-12-2023 11:13-0400 Body surface area Derived from formula 1.38 m2 Pratik Meza Naderer Work Phone: [facility] 250 DO Work Phone: 01-12-2023 11:13-0400 Body weight 47.63 kg Pratik Meza Naderer Work Phone: [facility] [employer] 250 DO Work Phone: 01-12-2023 11:13-0400 Diastolic blood pressure 60 mm[Hg] Pratik A Naderer Work Phone: [facility] 250 DO Work Phone: 01-12-2023 11:13-0400 Heart rate 88 /min Pratik A Naderer Work Phone: [facility] 250 DO Work Phone: 01-12-2023 11:13-0400 Systolic blood pressure 102 mm[Hg] Pratik A Naderer Work Phone: [facility] 250 DO Work Phone: 08-02-2022 13:32-0400 Diastolic blood pressure 62 mm[Hg] Seema Aichholz Work Phone: [facility] 08-02-2022 13:32-0400 Heart rate 63 /min Seema Aichholz Work Phone: [facility] 08-02-2022 13:32-0400 Respiratory rate 18 /min Seema Aichholz Work Phone: [facility] 08-02-2022 13:32-0400 SaO2% (BldA) [Mass fraction] 100 % Seema Aichholz Work Phone: [facility] 08-02-2022 13:32-0400 Systolic blood pressure 122 mm[Hg] Seema Aichholz Work Phone: [facility] 08-02-2022 12:26-0400 Body height 147.32 cm Seema Aichholz Work Phone: [facility] 08-02-2022 12:26-0400 Body temperature 98.3 [degF] Seema Aichholz Work Phone: [facility] 08-02-2022 12:26-0400 Body weight 48.53 kg Seema Aichholz Work Phone: [facility] 06-23-2022 15:29-0400 Body height 147.32 cm Pratik Derrick Naderer Work Phone: [facility] 250 DO Work Phone: 06-23-2022 15:29-0400 Body mass index (BMI) [Ratio] 22.62 kg/m2 Pratik Meza Naderer Work Phone: [facility] 250 DO Work Phone: 06-23-2022 15:29-0400 Body surface area Derived from formula 1.4 m2 Pratik Meza Naderer Work Phone: [facility] 250 DO Work Phone: 06-23-2022 15:29-0400 Body weight 49.1 kg Pratik Meza Naderer Work Phone: [facility] 250 DO Work Phone: 06-23-2022 15:29-0400 Diastolic blood pressure 60 mm[Hg] Pratik Meza Naderer Work Phone: [facility] 250 DO Work Phone: 06-23-2022 15:29-0400 Heart rate 62 /min Pratik Meza Naderer Work Phone: [facility] 250 DO Work Phone: 06-23-2022 15:29-0400 Systolic blood pressure 110 mm[Hg] Pratik Meza Naderer Work Phone: [facility] 250 DO Work Phone: 05-11-2022 11:17-0400 Blood Pressure Location Med JENKINS [facility] 05-11-2022 11:17-0400 Diastolic blood pressure 63 mm[Hg] Med JENKINS [facility] 05-11-2022 11:17-0400 Heart rate 81 /min Med JENKINS [facility] 05-11-2022 11:17-0400 Respiratory rate 16 /min Med JENKINS [facility] 05-11-2022 11:17-0400 Systolic blood pressure 125 mm[Hg] Med JENKINS [facility] 03-24-2022 13:00-0400 Body height 147.32 cm Aba Giovanny Other [employer] Other 03-24-2022 13:00-0400 Body mass index (BMI) [Ratio] 22.28 kg/m2 Aba Giovanny Other [employer] Other 03-24-2022 13:00-0400 Body temperature 97.7 [degF] Aba Giovanny Other [employer] Other 03-24-2022 13:00-0400 Body weight 48.35 kg Aba Giovanny Other [employer] Other 03-24-2022 13:00-0400 Diastolic blood pressure 70 mm[Hg] Aba Giovanny Other [employer] Other 03-24-2022 13:00-0400 Respiratory rate 18 /min Aba Giovanny Other [employer] Other 03-24-2022 13:00-0400 SaO2% (BldA) [Mass fraction] 97 % Aba Giovanny Other [employer] Other 03-24-2022 13:00-0400 Systolic blood pressure 110 mm[Hg] Aba Giovanny Other [employer] Other 12-29-2021 11:00-0500 Body height 147.32 cm Pratik A Naderer Work Phone: [employer] DO Work Phone: 12-29-2021 11:00-0500 Body mass index (BMI) [Ratio] 22.99 kg/m2 Pratik A Naderer Work Phone: [facility] [employer] 250 DO Work Phone: 12-29-2021 11:00-0500 Body surface area Derived from formula 1.41 m2 Pratik A Naderer Work Phone: [facility] [employer] 250 DO Work Phone: 12-29-2021 11:00-0500 Body weight 49.9 kg Pratik A Naderer Work Phone: [facility] [employer] 250 DO Work Phone: 12-29-2021 11:00-0500 Diastolic blood pressure 60 mm[Hg] Pratik A Naderer Work Phone: [facility] [employer] 250 DO Work Phone: 12-29-2021 11:00-0500 Heart rate 68 /min Pratik A Naderer Work Phone: [facility] [employer] 250 DO Work Phone: 12-29-2021 11:00-0500 Systolic blood pressure 110 mm[Hg] Pratik Bartonerer Work Phone: [facility] 250 DO Work Phone: 10-18-2021 14:30-0500 Body height 147.32 cm Alyssa Ginty Other [place] [employer] [employer] Other 10-18-2021 14:30-0500 Body mass index (BMI) [Ratio] 22.99 kg/m2 Alyssa Ginty Other [employer] Other 10-18-2021 14:30-0500 Body temperature 97.9 [degF] Alyssa Ginty Other [employer] Other 10-18-2021 14:30-0500 Body weight 49.9 kg Alyssa Ginty Other [employer] Other 10-18-2021 14:30-0500 Diastolic blood pressure 49 mm[Hg] Alyssa Ginty Other [employer] Other 10-18-2021 14:30-0500 Respiratory rate 18 /min Alyssa Ginty Other [employer] Other 10-18-2021 14:30-0500 SaO2% (BldA) [Mass fraction] 98 % Alyssa Ginty Other [employer] Other 10-18-2021 14:30-0500 Systolic blood pressure 136 mm[Hg] Alyssa Ginty Other [employer] Other 09-07-2021 12:15-0500 Body height 147.32 cm Carie Keith Other [employer] Other 09-07-2021 12:15-0500 Body mass index (BMI) [Ratio] 22.49 kg/m2 Carie Keith Other [employer] Other 09-07-2021 12:15-0500 Body weight 48.81 kg Carie Keith Other [employer] Other 09-02-2021 13:40-0400 Body height 147.32 cm Aba Giovanny Other [employer] Other 09-02-2021 13:40-0400 Body mass index (BMI) [Ratio] 22.53 kg/m2 Aba Giovanny Other [employer] Other 09-02-2021 13:40-0400 Body temperature 96.9 [degF] Aba Giovanny Other [employer] Other 09-02-2021 13:40-0400 Body weight 48.9 kg Aba Giovanny Other [employer] Other 09-02-2021 13:40-0400 Diastolic blood pressure 72 mm[Hg] Aba Giovanny Other [employer] Other 09-02-2021 13:40-0400 Respiratory rate 18 /min Aba Giovanny Other [employer] Other 09-02-2021 13:40-0400 SaO2% (BldA) [Mass fraction] 98 % Aba Giovanny Other [employer] Other 09-02-2021 13:40-0400 Systolic blood pressure 110 mm[Hg] Aba Giovanny Other [facility] [employer] Other Encounters Encounter Date Encounter Type Care Provider Facility Start: 10-16-2024 ambulatory Med Yanelis JENKINS Facility :[facility] Start: 08-23-2024 End: 08-26-2024 Clinisync Result Encounter Generic External Data Provider [facility] External Department Unsolicited Start: 08-23-2024 End: 08-26-2024 Clinisync Result Encounter Generic External Data Provider [facility] External Department Unsolicited Start: 08-07-2024 End: 08-07-2024 Bamboo flowsheet Seema Sutherland [employer]ENCIL [employer]KER Work Phone: [facility] Start: 08-07-2024 End: 08-10-2024 Bamboo flowsheet Seema Sutherland STENCIL MAKER Work Phone: [facility] Start: 08-07-2024 End: 08-10-2024 Clinisync Result Encounter Generic External Data Provider [facility] External Department Unsolicited Start: 08-07-2024 End: 08-07-2024 Office outpatient visit 25 minutes Seema Sutherland [employer]ENC[employer] Work Phone: [facility] Comment on above: Closed nondisplaced fracture of acromial end of right clavicle with routine healing, subsequent encounter (Primary Dx); Idiopathic hypoparathyroidism (CMS/HCC); Rheumatoid arthritis, unspecified (CMS/HCC); Major depressive disorder, single episode, mild (HCC) (CMS/HCC); Parkinson's disease with fluctuating manifestations, unspecified whether dyskinesia present (CMS/HCC); Hemiparesis, right (CMS/HCC); Diarrhea of presumed infectious origin Start: 08-07-2024 End: 08-07-2024 ambulatory SEEMA SUTHERLAND Not Available Start: 07-18-2024 End: 07-19-2024 Emergency department patient visit AJCK VIVEROS [facility] Start: 07-18-2024 End: 07-18-2024 ambulatory [facility] Ambulatory Start: 06-13-2024 End: 06-13-2024 ambulatory SERGIO CABRAL Not Available Start: 04-10-2024 End: 04-10-2024 ambulatory Med JENKINS Facility:[facility] Start: 04-10-2024 End: 04-10-2024 Patient encounter procedure Med JENKINS [facility] Start: 03-20-2024 End: 03-20-2024 ambulatory DESTINEY DUDLEY Not Available Start: 03-11-2024 End: 03-11-2024 ambulatory SEEMA SUTHERLAND Not Available Start: 03-07-2024 End: 03-07-2024 ambulatory [facility] Work Phone: Start: 03-07-2024 End: 03-07-2024 Patient encounter procedure [facility] Nephrology Steve Work Phone: Start: 02-27-2024 [facility] Work Phone: Start: 02-26-2024 End: 02-26-2024 ambulatory Med JENKINS Facility:[facility] Start: 02-26-2024 End: 02-26-2024 Patient encounter procedure Med JENKINS [facility] Start: 11-13-2023 End: 12-19-2023 Pre-admission assessment Med JENKINS [facility] Start: 11-13-2023 End: 11-13-2023 ambulatory Med JENKINS Facility:[facility] Start: 11-13-2023 End: 11-13-2023 Patient encounter procedure Med JENKINS [facility] Start: 10-03-2023 ambulatory Med JENKINS Facility:[facility] Start: 09-27-2023 End: 09-27-2023 ambulatory Med JENKINS Facility:[facility] Start: 09-27-2023 End: 09-27-2023 Patient encounter procedure Med JENKINS [facility] Start: 08-16-2023 End: 08-16-2023 ambulatory Med JENKINS Facility:[facility] Start: 08-16-2023 End: 08-16-2023 Lab Drop off Med JENKINS [facility] Start: 08-16-2023 End: 08-16-2023 ambulatory Med JENKINS Facility:[facility] Start: 08-16-2023 End: 08-16-2023 Patient encounter procedure Med JENKINS [facility] Start: 07-20-2023 Office outpatient vi sit 25 minutes Pratik Derrick Tadeo Work Phone: [facility] 250 DO Work Phone: Start: 07-20-2023 ambulatory Thompson Turcios Facility :[id number] Start: 07-05-2023 End: 07-05-2023 ambulatory Semea J Lancehabbeyz Facility:[facility] Start: 07-05-2023 End: 07-05-2023 ambulatory Seema J Aichholz Work Phone: [facility] Work Phone: Start: 07-05-2023 End: 07-05-2023 Patient encounter procedure Seema Aichholz Work Phone: [facility] [address] Work Phone: Start: 05-25-2023 End: 05-25-2023 ambulatory Aba Giovanny Other [facility] [employer] Other Start: 05-25-2023 Telephone encounter Aba Giovanny [facility] Start: 05-11-2023 End: 05-11-2023 ambulatory Med Yanelis TRINA Facility:[facility] Start: 05-11-2023 End: 05-11-2023 Patient encounter procedure Med JENKINS [facility] Start: 05-08-2023 End: 05-08-2023 ambulatory Aba Giovanny Other [employer] [employer] Other Start: 05-08-2023 Telephone encounter Aba Giovanny [facility] Start: 02-08-2023 End: 02-08-2023 ambulatory Madhav Diryy Other [place] [employer] Other Start: 02-08-2023 Patient encounter procedure Madhav Conrad [facility] Start: 01-12-2023 ambulatory Thompsonrhys Damonim Facility : Start: 01-12-2023 Office outpatient vi sit 25 minutes Pratik Derrick Tadeo Work Phone: [facility] 250 DO Work Phone: Start: 11-30-2022 End: 11-30-2022 ambulatory Aba Giovanny Other [place] [employer] [employer] Other Start: 11-30-2022 Telephone encounter Aba Giovanny [facility] Start: 11-29-2022 End: 11-30-2022 ambulatory OTILIA SUTHERLAND Facility: Start: 08-03-2022 End: 08-03-2022 ambulatory Madhav Conrad Other [place] [employer] Other Start: 08-03-2022 Telephone encounter Madhav CAMERON [facility] Start: 08-02-2022 End: 08-02-2022 ambulatory Seema Sutherland Facility:[facility] Start: 08-02-2022 End: 08-02-2022 Admission to same day surgery center Seema Sutherland Work Phone: [facility] Start: 08-02-2022 End: 08-02-2022 ambulatory Seema Sutherland Work Phone: [facility] Work Phone: Start: 07-29-2022 End: 07-29-2022 ambulatory Madhav Padillatim Facility:[facility] Start: 07-29-2022 End: 07-29-2022 Patient encounter procedure Seema Sutherland Work Phone: [facility] Start: 07-13-2022 Rx Renewal Pratik A Naderer Work Phone: [facility] 250 DO Work Phone: Start: 07-11-2022 End: 07-12-2022 ambulatory DIE KEEPER SEEMA SUTHERLAND Facility:[facility] Start: 06-23-2022 Office outpatient vi sit 25 minutes Pratik A Naderer Work Phone: [facility] 250 DO Work Phone: Start: 06-22-2022 End: 06-22-2022 Patient encounter procedure Med JENKINS [facility] Start: 06-15-2022 End: 06-16-[address] DONNA TURCIOS Facility:[facility] Start: 05-23-2022 End: 05-23-2022 Patient encounter procedure Med JENKINS [facility] Start: 05-17-2022 End: 05-17-2022 Lab Drop off Med JENKINS [facility] Start: 05-17-2022 End: 05-17-2022 Patient encounter procedure Med JENKINS [facility] Start: 05-11-2022 End: 05-11-2022 Patient encounter procedure Med JENKINS [facility] Start: 04-20-2022 End: 04-21-2022 ambulatory OTILIA SUTHERLAND Facility:[facility] Start: 03-24-2022 End: 03-24-2022 ambulatory Aba Giovanny Other [facility] [employer] Other Start: 03-24-2022 Office outpatient vi sit 25 minutes Aba Giovanny [facility] Start: 03-23-2022 End: 03-23-2022 ambulatory RODERICK KONG Facility:[facility] Start: 03-23-2022 End: 03-24-2022 ambulatory ABA GIOVANNY Facility:[facility] Start: 03-22-2022 End: 03-23-2022 ambulatory ABA GIOVANNY [facility] [employer] Other Start: 03-22-2022 Telephone encounter Aba Giovanny [facility] Start: 12-29-2021 Office outpatient vi sit 25 minutes Pratik Tadeo Work Phone: [facility] 250 DO Work Phone: Start: 10-18-2021 End: 10-18-2021 ambulatory Alyssa Ginty Other [place] [employer] [employer] Other Start: 10-18-2021 Office outpatient vi sit 15 minutes Alyssa Weller [facility] Start: 09-07-2021 End: 09-07-2021 ambulatory Carie Keith Other [place] [employer] Other Start: 09-07-2021 Office outpatient vi sit 15 minutes Carie Keith [facility] Start: 09-02-2021 End: 09-02-2021 ambulatory Aba Giovanny Other [facility] [employer] Other Start: 09-02-2021 Office outpatient vi sit [...] encounter procedure Bean Cantu Work Phone: [facility] [place] [facility] Start: 01-29-2018 Ambulatory [facility] Facility :[id number] Procedures Date Procedure Procedure [...] [facility] [address] [place] [phone] Seema Sutherland, STENCIL MAKER [address] [place] [phone] [facility] Start: 08-22-2024 End: 08-22-2024 Patient encounter procedure 08/22/2024 11:00 AM EDT Office Visit [facility] [address] [place] [id number] Destiney Dudley NP [address] [place], [place] [facility] Start: 08-19-2024 End: 08-19-2024 Patient encounter procedure 08/19/2024 10:00 AM EDT Office Visit [facility] [address] [place] [phone] Seema Sutherland, STENCIL MAKER [address] [place] [phone] [facility] Start: 08-15-2024 End: 08-15-2024 Patient encounter procedure 08/15/2024 2:15 PM EDT Office Visit [facility] [address] [place] [phone] Candace Mullins MD [address] [place] [address] [facility] Start: 08-07-2024 End: 08-07-2024 Patient encounter procedure 08/07/2024 10:30 AM EDT Office Visit [facility] [address] [place] [phone] Seema Sutherland, STENCIL MAKER [address] [place] [phone] Idiopathic hypoparathyroidism (CMS/HCC); Rheumatoid arthritis, unspecified (CMS/HCC); Major depressive disorder, single episode, mild (HCC) ([facility]/HCC) [facility] Comment on above: Idiopathic hypoparathyroidism (CMS/HCC); Rheumatoid arthritis, unspecified (CMS/HCC); Major depressive disorder, single episode, mild (HCC) (CMS/HCC) Start: 06-30-2024 Influenza vaccination Influenza Vaccine (#1) [facility] Start: 07-20-2023 FUV, Provider: Donna Turcios, Status: Pen, Time: 10:20 AM FUV, Provider: Donna Turcios, Status: Pen, Time: 10:[address] [facility] 250 DO Work Phone: Start: 01-12-2023 FUV, Provider: Donna Turcios, Status: Pen, Time: 10:50 AM FUV, Provider: Donna Turcios, Status: Pen, Time: 10:50 AM [facility] DO Work Phone: Start: 08-02-2022 [facility] Start: 07-12-2022 FUV, Provider: Donna Turcios, Status: Pen, Time: 10:50 AM FUV, Provider: Donna Turcios, Status: Pen, Time: 10:50 AM [facility] DO Work Phone: Start: 02-17-2021 Bacteria identified in Urine by Culture Urine Culture [facility] Bacteria identified in Urine by Culture URINE CULTURE, ROUTINE Lab Routine 08/07/2024 10:44 PM EDT [facility] Patient Education Gastritis (DC) Omekrystle le [facility] Work Phone: Renal function 2000 panel - Serum or Plasma [facility] Immunizations Immunization Date Immunization Notes Care Provider Fa cility 07-18-2024 tetanus toxoid, redu ruby diphtheria toxoid, and acellular pertussis vaccine, adsorbed Seema Sutherland [employer]ENCIL [employer] Work Phone: [facility] 08-01-2023 Influenza, Seasonal, Quadrivalent, Adjuvanted Seema Aichholz [employer]ENCIL MAKER Work Phone: [facility] 08-01-2023 influenza virus vacc ine, unspecified formulation Seema Aichholz [employer]ENCIL MAKER Work Phone: [facility] 06-30-2023 influenza virus vacc ine, unspecified formulation Med JENKINS [facility] 07-25-2022 influenza, high dose seasonal, preservative-free Seema Aichholz STENCIL MAKER Work Phone: [facility] 07-25-2022 Influenza, High-dose Seasonal, Quadrivalent, Preservative Free Seema Aichholz STENCIL MAKER Work Phone: [facility] 09-17-2021 Pfizer-BioNTech COVI D-19 Vacc 30 MCG/0.3ML Intramuscular Suspension Pratik A Naderer Work Phone: [facility] 09-08-2021 influenza virus vacc ine, unspecified formulation Med JENKINS [facility] 09-08-2021 Influenza, injectabl e, Madin Pendleton Canine Kidney, preservative free, quadrivalent Pratik A Naderer Work Phone: [facility] 250 DO Work Phone: 01-05-2021 Moderna COVID-19 Vac cine 100 MCG/0.5ML Intramuscular Suspension Pratik A Naderer Work Phone: [facility] 12-07-2020 Moderna COVID-19 Vac cine 100 MCG/0.5ML Intramuscular Suspension Pratik A Naderer Work Phone: [facility] 08-11-2020 influenza virus vacc ine, unspecified formulation Med TRINA [facility] 08-11-2020 influenza, injectabl e, quadrivalent, preservative free Pratik A Naderer Work Phone: [place] [address] DO Work Phone: 08-11-2020 pneumococcal polysaccharide vaccine, 23 valent Pratik A Naderer Work Phone: [facility] 06-30-2020 influenza virus vacc ine, unspecified formulation Pratik A Naderer Work Phone: [facility] 06-30-2020 influenza, seasonal, injectable Seema Lancesonnyjasmin [employer]ENCIL MAKER Work Phone: [facility] 07-30-2019 influenza virus vacc ine, unspecified formulation Pratik A Naderer Work Phone: [place] [address] DO Work Phone: 07-16-2019 influenza virus vacc ine, unspecified formulation Med TRINA [facility] 07-16-2019 influenza, injectabl e, quadrivalent, preservative free Pratik A Naderer Work Phone: [place] [address] DO Work Phone: 08-09-2018 influenza virus vacc ine, unspecified formulation Med JENKINS [facility] 08-09-2018 influenza, high dose seasonal, preservative-free Pratik A Naderer Work Phone: [place] [address] DO Work Phone: 07-30-2018 influenza virus vacc ine, unspecified formulation Pratik A Naderer Work Phone: [place] [address] DO Work Phone: 08-11-2017 influenza virus vacc ine, unspecified formulation Med TRINA [facility] 08-11-2017 influenza, high dose seasonal, preservative-free Pratik A Naderer Work Phone: [place] [address] DO Work Phone: 07-30-2017 influenza virus vacc ine, unspecified formulation Pratik Meza Naderer Work Phone: [place] [address] DO Work Phone: 08-02-2016 influenza virus vacc ine, unspecified formulation Med JENKINS [facility] 08-02-2016 influenza, high dose seasonal, preservative-free Pratik A Naderer Work Phone: [place] [address] DO Work Phone: 06-30-2016 influenza virus vacc ine, unspecified formulation Pratik Meza Naderer Work Phone: [place] [address] DO Work Phone: 01-08-2016 pneumococcal conjuga te vaccine, 13 valent Pratik A Naderer Work Phone: [facility] 07-21-2015 influenza virus vacc ine, unspecified formulation Pratik Meza Naderer Work Phone: [place] [address] DO Work Phone: 07-21-2015 pneumococcal polysaccharide vaccine, 23 valent Pratik A Naderer Work Phone: [place] [address] DO Work Phone: 07-17-2015 influenza virus vacc ine, unspecified formulation Med TRINA [facility] 07-17-2015 influenza, high dose seasonal, preservative-free Seema Koko STENCIL MAKER Work Phone: [facility] 07-17-2014 influenza virus vacc ine, unspecified formulation Med TRINA [facility] 07-17-2014 influenza, high dose seasonal, preservative-free Pratik A Naderer Work Phone: [place] [address] DO Work Phone: 08-07-2012 influenza virus vacc ine, unspecified formulation Med JENKINS [facility] 08-07-2012 influenza, seasonal, injectable, preservative free Pratik A Naderer Work Phone: [place] [address] DO Work Phone: 06-04-2012 tetanus toxoid, redu ruby diphtheria toxoid, and acellular pertussis vaccine, adsorbed Pratik A Naderer Work Phone: [facility] 07-30-2011 seasonal influenza, intradermal, preservative free Seema Sutherland STENCIL MAKER Work Phone: [facility] 09-16-2010 influenza virus vacc ine, unspecified formulation Med [facility] 09-16-2010 influenza, seasonal, injectable Pratik A Naderer Work Phone: [place] [address] DO Work Phone: 08-14-2010 pneumococcal polysaccharide vaccine, 23 valent Seema Sutherland STENCIL MAKER Work Phone: [facility] Payers Date Payer Category Payer Private Health Insurance [id number] 2023 Private Health Insurance I [id number] 2022 Self-pay [id number] 2005 Medicare [id number] 1959 Medicare [id number] 1959 Unknown [id number] 1940 Unknown [id number] 2.16.84 0.1.220416.3.579.2.593 1940 Unknown [id number] 2.16.84 0.1.188318.3.579.2.593 1940 Unknown [id number] 2.16.84 0.1.200168.3.579.2.593 1940 Unknown [id number] 2.16.84 0.1.736854.3.579.2.593 1940 Unknown [id number] 2.16.84 0.1.026891.3.579.2.593 1940 Unknown [id number] 2.16.84 0.1.961450.3.579.2.593 1940 Unknown [id number] 2.16.84 0.1.862338.3.579.2.593 1940 Unknown [id number] 2.16. 840.1.814145.3.579.2.356 1940 Unknown [id number] 2.16. 840.1.087957.3.579.2.356 1940 Unknown [id number] 2.16.8 40.1.326197.3.579.2.727 1940 Unknown [id number] 2.16.8 40.1.223169.3.579.2.727 1940 Unknown [id number] 2.16.8 40.1.444362.3.579.2.727 1940 Unknown [id number] 2.16.8 40.1.800060.3.579.2.727 1940 Unknown [id number] 2.16.8 40.1.638579.3.579.2.727 194 Unknown [id number] 2.16.8 40.1.445612.3.579.2.727 194 Unknown [id number] 2.16.8 40.1.130742.3.579.2.727 194 Unknown [id number] 2.16.8 40.1.393057.3.579.2.727 1940 Unknown [id number] 2.16.8 40.1.162374.3.579.2.1244 1940 Unknown [id number] 2.16.8 40.1.643142.3.579.2.1286 1940 Unknown [id number] 2.16.8 40.1.762514.3.579.2.1286 194 Unknown [id number] 2.16.8 40.1.333983.3.579.2.1286 1940 Unknown [id number] 2.16.8 40.1.577848.3.579.2.1286 1940 Unknown [id number] 2.16.8 40.1.200458.3.579.2.1286 1940 Unknown [id number] 2.16.84 0.1.598676.3.579.2.1259 1940 Unknown [id number] 2.16.84 0.1.066687.3.579.2.1259 1940 Unknown [id number] 2.16.84 0.1.298847.3.579.2.1259 1940 Unknown [id number] 2.16.84 0.1.557876.3.579.2.1259 Medicare [id number] Unknown [id number] Unknown Unknown [id number] 2.16.8 40.1.869517.3.579.2.531 Unknown [id number] 2.16.8 40.1.766866.3.579.2.531 Unknown [id number] 2.16.8 40.1.994822.3.579.2.531 Social History Date Type Detail Facility Start: 02-17-2021 End: 07-11-2023 Tobacco smoking status NJIS Never smoked tobacco (finding) [facility] Start: 1940 Sex Assigned At Female F [facility] Start: 03-11-2024 End: 06-13-2024 No alcohol use No alcohol use [facility] Start: 03-11-2024 End: 06-13-2024 Sex Assigned At [facility] [employer] Other Tobacco [facility] status [facility] Start: 07-11-2023 Tobacco use and exposure Smokeless tobacco non-user [facility] Start: 06-13-2024 End: 08-07-2024 Alcoholic beverage intake Lifetime non-drinker (finding) [facility] Start: 1940 Sex assigned at Not on file N [facility] Medical Equipment Procedure Code Equipment Code Equipment [...] knee, total, minimally invasive Orthopaedic cement, non-medicated [id number] FDA Start: 03-09-2021 Arthroplasty, knee, total, minimally invasive Uncoated knee femur prosthesis, metallic ()[id number] FDA Start: 03-09-2021 Arthroplasty, knee, total, minimally invasive Polyethylene patella prosthesis ()[id number] FDA Start: 03-09-2021 Arthroplasty, knee, total, minimally invasive Tibial insert ()[id number] FDA Start: 03-09-2021 Arthroplasty, knee, total, minimally invasive Uncoated knee tibia prosthesis, metallic ()[id number] FDA Start: 03-09-2021 Arthroplasty, knee, total, minimally [...] Facility 04-10-2024 Functional Status N/A [facility] 02-26-2024 Functional Status N/A [facility] 09-27-2023 Functional Status N/A [facility] 08-16-2023 Functional Status N/A [facility] 05-11-2023 Functional Status N/A [facility] 06-22-2022 Functional Status N/A [facility] 05-19-2022 Functional Status N/A [facility] 05-11-2022 Functional Status N/A [facility] Clinical Notes 09-02-2021 to 08-07-2024 Seema Sutherland [...] will need ortho Associated Problem(s): Parkinson's disease ([facility]) Cont with neuro Possible worsening tremor [...] fracture, had xray and CT head/neck at [facility], sent home with sling no ortho referral [...] unspecified vessel or lesion type, unspecified whether [place] or transplanted heart ([facility]) COVID-19 vaccine administered x2 moderna CVA (cerebral vascular accident) ([facility]) 11/2016 Failure to thrive in adult Female cystocele History of CVA (cerebrovascular accident) Hypocalcemia Hypokalemia Hypothyroidism (acquired) ([facility]) Hypothyroidism (acquired) ([facility]) 10/21/2023 Hypothyroidism ([facility]) Impaired mobility Inguinal hernia Left knee pain, unspecified chronicity Myocardial infarct ([facility]) 2015, 2016 Nephrolithiasis Paresthesia Parkinson disease ([facility]) Pressure sore on buttocks Senile debility [...] Items Addressed This Visit Rheumatoid arthritis, unspecified ([facility]/HCC) Managed by Rheumatology Parkinson's disease ([facility]) - Primary Cont with neuro Possible worsening tremor d/t freq diarrhea and unable to absorb meds? Discussion with pt and spouse about possible temporary NH placement for strengthening?? Major depressive disorder, single episode, mild (HCC) ([facility]) No current antidepressant meds Idiopathic hypoparathyroidism ([facility]) Follow with endo Hemiparesis, right ([facility]) Closed fracture of acromial end of right clavicle Reviewed xray, will need ortho Diarrhea of presumed infectious origin Possible c diff d/t recent UTI with atb treatment Dd: viral illness Go to ER, for evaluation dehydration Associated Problem(s): Major depressive disorder, single episode, mild (HCC) ([facility]) No current antidepressant meds Associated Problem(s): Rheumatoid arthritis, unspecified (CMS/HCC) Managed by Rheumatology Associated Problem(s): Idiopathic hypoparathyroidism (CMS/HCC) Follow with endo documented in this encounter [facility] 04-10-2024 Hospital Discharge instructions Patient [...] nerve stimulation). ?For women, using a medical claims analyst to prevent urine leaks. This is a [...] right after experiencing incontinence. General instructions Take ynhx-pjo-rgnurde and prescription medicines only as told by [...] important. Where to find more information [place] of Diabetes and Digestive and Kidney Diseases: www.niddk.nih.gov [employer]: www.urologyhealth.org Contact a health care [...] provider. Document Revised: 05/21/2021 Document Reviewed: 05/21/2021 Re[employer] Patient Education 2022 Combat Stroke. Follow Up Care 02/26/2024 13:52:27 With:Med JENKINS MD, URL Address: [address] [employer] [address] [place] [address]- When: Unknown [facility] 02-26-2024 Hospital Discharge instructions Patient Education [...] Care 11/13/2023 15:16:14 With:Med JENKINS Address: [address] [employer] [address] [place] [address]- Business (1) When:6 weeks Comments:Call for followup appointment, with a bladder scan at that visit to check for bladder emptying. [facility] 02-26-2024 Note [id number] [facility] 02-26-2024 Note Cystoscopy with Boto x injection [...] you have a fever over 100 degrees. [facility] 11-13-2023 Evaluation + Plan note Extrac db from: Title:HOPD visit Author:Med JENKINS MD Date: 11/13/23 Impression and Plan Assessment and Plan: Diagnosis: Acute UTI (XAF15-EX N39.0, Working, Medical), Mixed incontinence urge and stress (AYO34-TS N39.46, Working, Medical), Overactive bladder (QFF54-PC N32.81, Working, Medical). Additional Plan of Care [...] is also instructed to follow-up with her contact representative regarding some heart rate issues. She should [...] Appointments Appointment Date:12/18/2023 03:15:00 PM Scheduled Provider: Location:[facility] Appointment Type:Urology FT Diagnostic Tests Pending * Urine Culture 11/13/23 [facility]11-29-2023 Hospital Discharge instructions Follow Up Care 09/27/2023 13:27:49 With:Med JENKINS Address: [address] [place] [phone]- Business (1) When: Unknown Comments:As you [...] probiotics locally and the cranberry is self-explanatory.My surgical scheduler will call you to get you back on the books for the Botox injection. [facility]11-29-2023 Hospital Discharge instructions Patient Education 09/27/2023 13:13:52 [...] nerve stimulation). ?For women, using a medical claims analyst to prevent urine leaks. This is a [...] right after experiencing incontinence. General instructions Take bjkl-tav-vfcdqel and prescription medicines only as told by [...] important. Where to find more information [place] of Diabetes and Digestive and Kidney Diseases: www.niddk.nih.gov [employer]: www.urologyhealth.org Contact a health care [...] provider. Document Revised: 05/21/2021 Document Reviewed: 05/21/2021 Relead Patient Education 2022 Combat Stroke. Follow Up Care 08/16/2023 10:31:24 With:TRINA WATSON, Med Hilario, URL Address: [address] [place], [place] [id number] When: Unknown [facility] 10-18-2023 Hospital Discharge instructions Patient Education [...] Treatment for this condition includes: Antibiotic medicine. Rfvi-btp-oocioyq medicines to treat discomfort. Drinking enough water [...] Follow these instructions at home: Medicines Take qlkz-cxw-hdwjymm and prescription medicines only as told by [...] provider. Document Revised: 05/28/2021 Document Reviewed: 05/28/2021 Relead Patient Education 2022 Combat Stroke. Follow Up Care 05/11/2023 08:07:36 With:TRINA WATSON, Med Hilario, URL Address: [address] [place] [address]- When: Unknown [facility] 07-27-2023 Evaluation note* Encounter Date Diagnosis Assessment Notes Treatment Notes Treatment Clinical Notes Apr, Hypomagnesemia (ICD-10 - E83.42) [facility] Other 07-13-2023 Hospital Discharge instructions Patient Education [...] Up Care 04/12/2023 15:40:50 With:Med JENKINS Address: [address] [place] [address] [facility] (1) When:3 months Comments:Call for followup appointment, with bladder scan checking for residual urine at that visit. [facility]07-13-2023 Note [id number]:127[facility] 05-11-2023 NoteCystoscopy with Botox injection ? Voiding [...] if you have a fever over 100 degrees.[facility] 05-08-2023 Evaluation note* Encounter Date Diagnosis Assessment Notes Treatment Notes Treatment Clinical Notes Apr, Hypomagnesemia (ICD-10 - E83.42) [facility] Other 04-12-2023 Evaluation note* Encounter Date Diagnosis Assessment Notes Treatment Notes Treatment Clinical Notes Jan, Early satiety (ICD-10 - R68.81) Jan, Gastritis (ICD-10 - K29.70) Continue Omeprazole as directed Rto 1 yr Jan, Borborygmi (ICD-10 - R19.8) [facility] Other 10-04-2022 [facility]08-[facility]2022 Hospital Discharge instructions Patient Education 06/22/2022 13:02:36 [...] nerve stimulation). For women, using a medical claims analyst to prevent urine leaks. This is a [...] right after experiencing incontinence. General instructions Take rtvk-whu-qquwpkx and prescription medicines only as told by [...] 11/23/2005 Document Revised: 10/26/2018 Document Reviewed: 01/25/2018 Relead Patient Education 2020 Combat Stroke. 06/22/2022 13:02:35 Kegel Exercises Kegel Exercises Kegel [...] 10/02/2013 Document Revised: 06/05/2019 Document Reviewed: 06/05/2019 Relead Patient Education 2020 Combat Stroke. Follow Up Care 05/23/2022 15:12:51 With:TRINA WATSON, Med Hilario, URL Address: When:Within 6 Month(s) Comments:w/PVR [facility] 07-25-2022 Hospital Discharge instructions Patient Education [...] Care 05/11/2022 11:39:36 With:Med JENKINS Address: [address] [phone]- Business (1) When:2 to 4 weeks Comments:Call for followup appointment, and a bladder scan to check bladder emptying will be performed at that visit. [facility]07-13-2022 Hospital Discharge instructions Patient Education 05/11/2022 11:28:58 [...] fried and sweet foods. General instructions Take nvti-ieb-ldhenrv and prescription medicines only as told by [...] 08/12/2010 Document Revised: 02/06/2020 Document Reviewed: 11/01/2018 Relead Patient Education 2020 Combat Stroke. Follow Up Care 12/27/2021 11:50:32 With:TRINA WATSON, Med Hilario, URL Address: [facility] [employer] [address] When: Unknown [facility] 05-26-2022 Evaluation note* Encounter Date Diagnosis [...] of cardiac arrest due to the hypokalemia [facility] Other 12-20-2021 Evaluation note* Encounter Date Diagnosis Assessment Notes Treatment Notes Treatment Clinical Notes Sep, Abnormal skin growth (ICD-10 - D49.2) Will send to derm for further evaluation and treatment. Advised patient that area will likely need to be removed. Message sent to web marketing coordinator to schedule and make appointment for patient. Area covered with silvadine cream in office with non adherent telfa and coban. Advised patient not to pick at area. Immediate evaluation in ER for signs of infection, including, fever, red streaking, foul odor, any new or worsening symptoms. 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 Continue physical therapy exercises and TKA precautions. Instructed patient to call with any questions or concerns. 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 [facility] Other Evaluation + Plan note Future Appointments Appointment Date:05/16/2022 10:00:00 AM Scheduled Provider: Location:[facility] Appointment Type:Urology CALL [facility] FT Appointment Date:05/23/2022 02:30:00 PM Scheduled Provider: Location:[facility] Appointment Type:Urology FT [facility] Evaluation + Plan note Future Appointments Appointment Date:05/23/2022 02:30:00 PM Scheduled Provider: Location:[facility] Appointment Type:Urology FT [facility] Evaluation + Plan note Future Appointments Appointment Date:05/23/2022 02:30:00 PM Scheduled Provider: Location:[facility] Appointment Type:Urology FT Diagnostic Tests Pending * Urine Culture [facility]17/22 [facility] Future Appointments Appointment Date:06/22/2022 11:45:00 AM Scheduled Provider:Med JENKINS MD Location:[facility] Appointment Type:URO [facility] Future Appointments Appointment Date:12/14/2022 11:15:00 AM Scheduled Provider:Med JENKINS MD Location:[facility] Appointment Type:URO Office Visit [facility] Evaluation + Plan note Future Appointments Appointment Date:08/16/2023 09:30:00 AM Scheduled Provider:Med JENKINS MD Location:[facility] Appointment Type:URO [facility] Future Appointments Appointment Date:09/27/2023 01:00:00 PM Scheduled Provider:Med JENKINS MD Location:[facility] Appointment Type:URO Office Visit Diagnostic Tests Pending * Urine Culture 08/16/23 [facility] Future Appointments Appointment Date:09/27/2023 01:00:00 PM Scheduled Provider:Med JENKINS MD Location:[facility] Appointment Type:URO Office Visit [facility] Evaluation + Plan note Future Appointments Appointment Date:10/31/2023 09:45:00 AM Scheduled Provider: Location:[facility] Appointment Type:Urology CALL PAT FT Appointment Date:11/13/2023 02:45:00 PM Scheduled Provider: Location:[facility] Appointment Type:Urology FT [facility] Evaluation + Plan note Future Appointments Appointment Date:04/10/2024 10:00:00 AM Scheduled Provider: Location:[facility] Appointment Type:URO [facility] Future Appointments Appointment Date:10/16/2024 01:00:00 PM Scheduled Provider:Med JENKINS MD Location:[facility] Appointment Type:URO Office Visit [facility] Evaluation noteNo Assessments Information Available [facility] noteNo InformationNort [employer] Other Evaluation noteNo assessment information available [facility] Work Phone: evaluation note* Diagnosis Onset Date Resolution Status Hypomagnesemia acute CAD (coronary artery disease) chronic Hyperlipidemia chronic Hypokalemia resolved [facility] Work Phone: Evaluation note* Diagnosis Closed nondisplaced [...] HealthcareHistory and physical note Author Madhav Conrad [facility] August 02, 2022 12:52pm Note Date/Time August 02, 2022 12 :52pm [facility] [address] [place] [address] Gastroenterology H&P Signed Patient: Narciso Velasquez MR#: [id number] : 1940 Acct:[id number] Age/Sex: 81 / F Adm Date: 2 Loc: Room: Type: [facility] Attending Dr: Madhav Conrad MD Copies to: [...] signed by Madhav Conrad MD> 08/02/22 1252 [facility] Work Phone: History general Narrative - [...] heart attack 11/2016 Hospitalization History SEE ABOVE [facility] Other Hospital course Narrative No data available for this section [facility] Hospital Discharge instructions No data available for this section [facility] Hospital Discharge instructions Additional Instructions DISCHARGE [...] Follow up with PCP. - Office number [phone].[facility] Work Phone: Progress note No data available for this section [facility] Summary Purpose Family History Relationship Condition [...] growth (D49.2) Referral Organization [facility] Referring Provider First Name Alyssa Referring Provider Last Name Janee Referring Provider Specialty Nurse Pract itioner Referred Organization [facility] Referred Provider Castillo Mcgowan Thomas Referred Address ,[place], [place],[address] Referred Provider Specialty Dermatology Referral Priority Routine General Notes Xochitl Craig 021 02:26:04 PM >Received today and sent P2P even though the notes are not locked Additional Source Comments INFORMATION SOURCE (unrecogn ized section and content) DATE CREATED AUTHOR 04/19/2018 [facility] DATE CREATED AUTHOR AUTHOR'S ORGANIZ ATION 03/15/2020 [facility] DATE CREATED AUTHOR AUTHOR'S ORGANIZ ATION 12/01/2022 [facility] DATE CREATED AUTHOR AUTHOR'S ORGANIZ ATION 07/15/2023 [facility] DATE CREATED AUTHOR AUTHOR'S ORGANIZ ATION 07/22/2023 [facility] DATE CREATED AUTHOR AUTHOR'S ORGANIZ ATION 07/22/2023 [employer] DATE CREATED AUTHOR AUTHOR'S ORGANIZ ATION 04/13/2024 Sekou Marx [facility] DATE CREATED AUTHOR AUTHOR'S ORGANIZ ATION 07/20/2024 [facility] DATE CREATED AUTHOR AUTHOR'S ORGANIZ ATION 07/21/2024 [facility] DATE CREATED AUTHOR AUTHOR'S ORGANIZ ATION 08/09/[address] [facility] dical Specialists EPIC REASON FOR VISIT (unrecogniz [...] Active Curtis Alcocer MD Attending Provider Active [employer] Relationship Specialty Start Date End Date Pratik Tadeo MD [address] [place] [address] PCP - General Family Medicine 12/27/23 Seema Sutherland NP [address] [place] [address] Referring Physician Nurse Practitioner 05/12/23 Sergio Cabral DO [address] [place] [address] Referring Physician Neurology 12/26/23 [employer] Relationship Specialty Start Date End Date Pratik Tadeo MD [address] [place] [address] PCP - General Family Medicine 12/27/23 Seema Sutherland, VITALIY [address] [place] [address] Referring Physician Nurse Practitioner 05/12/23 Sergio Cabral DO [address] [place] [address] Referring Physician Neurology 12/26/23 [employer] Relationship Specialty Start Date End Date Pratik Tadeo MD [address] [place] [address] PCP - General Family Medicine 12/27/23 Seema Sutherland, VITALIY [address] [place] [address] Referring Physician Nurse Practitioner 05/12/23 Sergio Cabral DO [address] [place] [address] Referring Physician Neurology 12/26/23 [employer] Relationship Specialty Start Date End Date Pratik Tadeo MD [address] [place] [address] PCP - General Family Medicine 12/27/23 Seema Sutherland NP [address] [place] [address] Referring Physician Nurse Practitioner 05/12/23 Sergio Cabral DO [address] [place] [address] Referring Physician Neurology 12/26/23 Goals (unrecognized section [...] BE BASED ON THE PRIMARY CLINICAL RECORDS. [employer] [facility]. provides no warranty or guarantee of the accuracy or completeness of information in this document.
[2024-09-25] VITALS (14 sets, daily range): BP systolic 94–120; BP diastolic 55–72; PULSE 89–127; TEMP 36.2–36.6; O2SAT 94–98
[2024-09-25] MEDS: 0.9 % SODIUM CHLORIDE 1,000 ML 100 ML IV (00:03)
[2024-09-25] MEDS: TRIHEXYPHENIDYL HCL 2 MG TABLET PO ×2 (00:03→12:07)
[2024-09-25] MEDS: GABAPENTIN 300 MG CAPSULE 600 MG PO ×2 (00:03→10:48)
[2024-09-25] MEDS: OXcarbazepine 150 MG TABLET PO ×2 (00:03→12:07)
--- NOTE | 2024-09-25 02:31 | PC.NURSE ---
Patient noted to have skin tears to right lateral forearm and right lateral mejia. Patient from home and has Home Health visits since dc from SNF facility with [facility]. Noted to have dressings to skin tears changed every 3 days and next dressing change is due on 09/25/24. Patient also noted to have open area to Sacrum. Patient states she has had the area for 1 year and has been treating the wound without being able to get it to close. No drainage noted. Area has well defined edges and no drainage noted.
[2024-09-25 05:46] LABS: Hematocrit 27.3 % (36.0-48.0); Hemoglobin 8.9 g/dL (12.0-16.0); Mean Corpuscular HGB Conc 32.6 g/dL (29.9-35.2); Mean Corpuscular Hemoglobin 30.8 pg (26.7-34.0); Mean Corpuscular Volume 94.5 fL (81.0-99.0); Mean Platelet Volume 9.1 fL (9.5-13.5); Platelet Count 285 10^3/uL (150-450); Red Blood Count 2.89 10^6/uL (4.20-5.40); Red Cell Distribution Width 14.4 % (11.0-15.0); White Blood Count 4.8 10^3/uL (4.0-11.0)
[2024-09-25 05:53] LABS: Magnesium 2.6 mg/dL (1.8-2.4)
[2024-09-25 05:57] LABS: Anion Gap 14.7; BUN Creatinine Ratio 13.8; Carbon Dioxide 25.5 mmol/L (21.0-32.0); Chloride 107 mmol/L (98-107); Estimated GFR (African America >60 (>=60 mL/min/1.73m^2); Estimated GFR (Non-African Ame >60 (>=60 mL/min/1.73m^2); Glucose 89 mg/dL (74-106); Potassium 4.2 mmol/L (3.5-5.1); Sodium 143 mmol/L (136-145)
[2024-09-25 06:00] LABS: Calcium 5.6 mg/dL (8.5-10.1)
--- NOTE | 2024-09-25 09:27 | SWNOTE1 ---
SW met with pt to discuss dc needs. Pt lives at home with . Pt was discharged to [facility] during her last stay for rehab. She stated she only stayed a few days and decided she wanted to go home. She voiced she was doing well until yesterday. She stated her has been doing everything for her. She is in agreement that it is a safety risk for her and her and she needs to go to rehab again for strengthening. Pt voiced she does not want to go to [facility]. She would like place in [place], she does not want [place]. SW reviewed list from Medicare.gov and she would like [facility]. SW to check if they have openings. Pt may already have her 3 day qualifying stay from her previous visit. SW to check. SW reached out to [facility], but they are full until next week. SW to let pt know. LAN did look and pt was made inpt during last stay on 08/24.
--- NOTE | 2024-09-25 09:31 | SWNOTE1 ---
Correction to previous note, pt was made inpt during last stay on 08/25. Day 30 would have been 09/23. SW will have to check with facility to see if this would count since patient came in on 09/24 and was made inpt.
--- NOTE | 2024-09-25 09:35 | SWNOTE1 ---
SW did review Important Message from Medicare with pt, but she would like SW to review with when he arrives.
--- NOTE | 2024-09-25 09:58 | CM.NOTE ---
Rounds made with Dr. Youngblood. Plan for discharge today SNF.
--- NOTE | 2024-09-25 10:32 | SWNOTE1 ---
LAN called and spoke to Raciel at [facility] to check on 3 day stay. She stated it goes by the day that patient leaves the nursing facility. In that case pt has her qualifying 3 day stay. LAN explained that pt would like to go to [facility] at this time. LAN spoke to pt again and let her know [facility] does not have openings. She would like SW to look in to [facility] next, then [place] or [place]. LAN did call pt's , no answer, left voicemail. LAN called [facility] and spoke to Anna, she voiced to send it over and they will review. Pt will be able to discharge today.
[2024-09-25] MEDS: ENOXAPARIN SODIUM 40 MG/0.4 ML SYRINGE SUBQ (10:47)
--- NOTE | 2024-09-25 11:23 | SWNOTE1 ---
Pt's in room. SW spoke to pt's while pt did therapy. Pt's in agreement with rehab. Pt did ask while working with therapy about HH services. SW voiced that at this time pt would greatly benefit from rehab stay for a short time to get stronger and that HH is not there 22/05. Pt and in agreement. Pt spoke about her bad experience at the [facility] and hoping for a better experience. SW advised that at this time SW has the referral out to [facility] [place] as that is where pt wanted after [place] since they had no openings. Pt's alright with this. SW to keep them updated.
[2024-09-25] MEDS: PROSTAT 15 GM PROTEIN/100 CAL 30 ML LIQUID PACKET PO (11:33)
[2024-09-25] MEDS: CALCIUM GLUCONATE 2,000 MG in 0.9 % SODIUM CHLORIDE 100 ML 120 MG IV (11:33)
[2024-09-25] MEDS: CALCIUM CARBONATE 600 MG TABLET PO (11:33)
[2024-09-25] MEDS: ENSURE ORIGINAL 237 ML BOTTLE PO (11:33)
[2024-09-25] MEDS: ATORVASTATIN CALCIUM 20 MG TABLET PO (11:34)
[2024-09-25] MEDS: CALCITRIOL 0.25 MCG CAPSULE PO (11:34)
--- NOTE | 2024-09-25 11:52 | SWNOTE1 ---
LAN reached out to Anna at [facility] to see if they had an answer since pt is discharged today medically. She did not have an answer and was not sure when she would have an answer. At this time LAN moved forward with referral since [facility] was nto sure when they would have an answer. LAN spoke with pt and in room to let them know [facility] is unsure when they will know if they have a bed and since pt is discharged today we can't wait and see. They voiced understanding. At this point they would like LAN to look in to [facility]. Referral sent to [facility]. Referral included face sheet, ED note, H&P, provider notes, case management report, wound consult, nursing notes, diagnostic imaging, med list, and PT/OT notes.
--- NOTE | 2024-09-25 11:55 | SWNOTE1 ---
Important Message from [employer] reviewed and discussed with patient and in room. They both verbalized understanding and pt wanted to sign the form. Pt's signed form. Original given to patient and copy placed in patient?s chart.
--- NOTE | 2024-09-25 12:55 | PM.HP ---
HPI H&P: HPI History of Present Illness Chief complaint: WEAK ELECTROLYTE ABNORMALITIES Narrative: HPI and Hospital Course 83-year-old female presented to the ER with chief complaint of worsening tremors/dyskinesia since 2 days. Patient has a hx of Parkinson for which she is following up with Dr Cabral. Patient lives at home with her . Patient gets around at home with a walker but lately has been feeling weak overall along with worsening unsteadiness and feels unsafe to walk with a walker. Patient reports compliant with her medications but we suspect this to be not the case as her refill hx suggest otherwise. Patient denies nausea, vomiting, abdominal pain, diarrhea, constipation or urinary complaints. Work up in ED revealed multiple electrolyte abnormalities including hypokalemia, hypomagnesemia and hypocalcemia. She was given IV potassium, magnesium and calcium. She was also treated with IV hydration overnight. At the time of my evaluation, she felt better compared to her arrival but still quite tremulous and had not received her morning medications yet. Patient was evaluated by PT/OT. She was accepted for SNF placement to continue with PT/OT to improve her functional status and physical deconditioning. Patient's electrolytes are all normal except for hypocalcemia that is chronic and not much different from her baseline. Patient medically stable for discharge. Opioid HPI Opioid Management Most Recent Pain and Opioid Data: Last Pain Scale 0 08/28/24 07:29 08/28/24 Last Pain Intensity 0 08/26/24 13:56 08/26/24 Last Pain Assessment 09/25/24 13:00 Last ORT Total Score 0 09/24/24 20:52 09/24/24 Last ORT Risk Category Low Risk 09/24/24 20:52 09/24/24 Review of Systems ROS Status of ROS 10 or more systems reviewed and unremarkable except as noted in history and below [facility] Medical History (Updated 09/25/24 @ 13:08 by Shaikh Ford MD) Hypothyroid ?E03.9 - Hypothyroidism, unspecified (ICD-10) Chronic pain disorder ?G89.4 - Chronic pain syndrome (ICD-10) HLD (hyperlipidemia) ?E78.5 - Hyperlipidemia, unspecified (ICD-10) CAD (coronary artery disease) ?I25.10 - Atherosclerotic heart disease of [place] coronary artery without angina pectoris (ICD-10) Parkinson disease ?G20.A1 - Parkinson's disease without dyskinesia, without mention of fluctuations (ICD-10) High cholesterol ?E78.00 - Pure hypercholesterolemia, unspecified (ICD-10) CVA (cerebral vascular accident) ?I63.9 - Cerebral infarction, unspecified (ICD-10) Surgical History (Updated 08/07/24 @ 13:59 by Melissa San RN) History of bowel resection ?Z90.49 - Acquired absence of other specified parts of digestive tract (ICD-10) H/O heart artery stent ?Z95.5 - Presence of coronary angioplasty implant and graft (ICD-10) Family History (Updated 08/07/24 @ 15:45 by Tanvi Boles) Father Family history of myocardial infarction Social History (Updated 08/07/24 @ 15:45 by Tanvi Boles) Within the past year, how often did you have a drink containing alcohol: never Within the past year, how often did you have six or more drinks on one occasion: never Score interpretation: A score less than 3 is consistent with normal alcohol consumption. Smoking status: Never smoker Second hand tobacco smoke exposure: No Non-prescribed substance use: denies use Previous occupational history: Retired from [employer] Known occupational exposures/hazards: No Highest level of school completed/degree received: GED or equivalent Are you now , , , , never or living with a partner: In a typical week, how many times do you talk on the telephone with family, friends, or neighbors: 3 or more times per week How often do you get together with friends or relatives: 3 or more times per week How often do you attend jehovah's witness or religion services: 4 or more times per year Do you belong to any clubs or organizations such as jehovah's witness groups unions, fraternal or athletic groups, or school groups: no Total score: 3 Score interpretation: A score of greater than or equal to 2 indicates the lowest level of social isolation. Little interest or pleasure in doing things: not at all Feeling down, depressed, or hopeless: not at all Feel stressed/tense/nervous/anxious/difficulty sleeping: not at all Due to disability, difficulty making decisions: No Do you think of yourself as: straight/heterosexual Gender Identity: female Meds Home Medications and Allergies Home Medications ?Medication ?Instructions ?Recorded ?Confirmed ?Type atorvastatin 20 mg tablet 20 mg PO DAILY 08/07/24 09/24/24 History gabapentin 300 mg capsule 600 mg PO BID 08/07/24 09/24/24 History pramipexole 0.25 mg tablet 0.25 mg PO TID 08/07/24 09/24/24 History trihexyphenidyl 2 mg tablet 2 mg PO BID 08/07/24 09/24/24 History oxcarbazepine 150 mg tablet 150 mg PO BID 08/23/24 09/24/24 History acetaminophen 325 mg tablet 650 mg (2 x 325 mg) PO Q4H PRN 08/28/24 09/24/24 Rx Pain 1-4 15 days #30 tabs levofloxacin 500 mg tablet 500 mg PO Q48H 5 days #3 tabs 08/28/24 Rx levothyroxine 75 mcg tablet 100 mcg (1.3333 x 75 mcg) PO DAILY 08/28/24 09/24/24 Rx 30 days #30 tabs Allergies Allergy/AdvReac Type Severity Reaction Status Date / Time No Known Drug Allergies Allergy Verified 08/07/24 11:58 Exam Constitutional Vital Signs, click to edit/add: Last Vital Signs Temp 97.3 F L 09/25/24 12:00 Pulse 89 09/25/24 12:00 Resp 16 09/25/24 12:00 BP 120/72 09/25/24 12:00 Pulse Ox 98 09/25/24 12:00 O2 Del Method Room Air 09/25/24 12:00 General appearance: cooperative, comfortable and frail appearing [facility] Common normals: normocephalic and head/scalp atraumatic Respiratory Common normals: normal respiratory effort, no use of accessory muscles and clear to auscultation bilaterally Effort & inspection: able to speak in complete sentences GI Common normals: Normal to inspection, nondistended, normoactive bowel sounds present, soft to palpation and no hepatosplenomegaly Palpation: tender Details: suprapubic Extremity Common normals: normal to inspection and full ROM Neuro Common normals: oriented x3, moves all extremities, no focal motor deficits and no sensory deficits noted Gait (neuro): unable to assess gait Motor exam: tremor Psych Common normals: mental status grossly normal, thought process normal, denies homicidal ideation and denies suicidal ideation Results Labs Labs: Short CBC 09/24/24 09/25/24 Range/Units 18:23 05:23 WBC 6.2 4.8 (4.0-11.0) 10^3/uL Hgb 9.5 L 8.9 L (12.0-16.0) g/dL Hct 30.1 L 27.3 L (36.0-48.0) % Plt Count 312 285 (150-450) 10^3/uL BMP 09/24/24 09/25/24 18:23 05:23 Sodium 139 143 Potassium 2.7 L* 4.2 Chloride 100 107 Carbon Dioxide 29.6 25.5 BUN 15.0 9.0 Creatinine 0.87 0.65 Glucose 166 H 89 Calcium <5.0 L* 5.6 L* Cardiac Enzymes 09/24/24 Range/Units 18:23 Total Creatine Kinase 160 (26-192) U/L Liver Function 09/24/24 Range/Units 18:23 Total Bilirubin 0.5 (0.2-1.0) mg/dL AST 29 (15-37) U/L ALT 24 (14-59) U/L Alkaline Phosphatase 67 (46-116) U/L Albumin 2.0 L (3.4-5.0) g/dL ABG ABG results: 09/24/24 18:23 VBG pH 7.442 H VBG pCO2 43.1 Assessment and Plan Assessment and Plan (1) Parkinson disease: Qualifiers: Dyskinesia presence: with dyskinesia Fluctuating manifestations: without fluctuating manifestations Qualified Code(s): G20.B1 - Parkinson's disease with dyskinesia, without mention of fluctuations (2) Generalized weakness: (3) Hypomagnesemia: (4) Hypokalemia: (5) Hypocalcemia: (6) Hypothyroid: Qualifiers: Hypothyroidism type: unspecified Qualified Code(s): E03.9 - Hypothyroidism, unspecified (7) HLD (hyperlipidemia): Qualifiers: Hyperlipidemia type: unspecified Qualified Code(s): E78.5 - Hyperlipidemia, unspecified (8) Moderate protein malnutrition: Plan Electrolytes back to normal except for hypocalcemia that is chronic and if corrected for Albumin, close to normal. Feels well overall after IV hydration and replenishing her serum electrolytes. Her Parkinson disease is progressive and she will need to f/u with Neurology to adjust her medications. It is possible that she may need half-way care if her is unable to take care of her at home. Patient has poor PO intake, low Body weight and appears cachectic with muscle wasting, loss of subcutaneous tissue likely because of her Parkinson resulting in decreased PO intake. She will benefit from eval by [facility] as outpatient. Patient stable for discharge to Rehab.
--- NOTE | 2024-09-25 12:59 | SWNOTE1 ---
[facility] is able to accept. LAN notified doctor and nurse. LAN called trips and they will call LAN back with time. LAN completed HENS online.
--- NOTE | 2024-09-25 13:17 | SWNOTE1 ---
[facility] will be coming around 4:30 to transport pt to [facility] for rehab. SW sent over la med rec and H&P. SW notified pt and of time, [facility], and nursing of la time.
[2024-09-25] MEDS: PRAMIPEXOLE 0.125 MG TABLET 0.25 MG PO (13:19)
--- NOTE | 2024-09-25 16:24 | PC.NURSE ---
report called to isael at [facility]. pt dressed and iv x 2 removed. belongings with pt.
--- NOTE | 2024-09-25 17:17 | NUTR.NU ---
Diet consult completed - pt is pleasant, but doesn't appear to understand the concept of malnutrition. She believes she eats well at home. does most of the cooking or gets take-out food. Pt happy with the food she received in-house w/documented PO intake of 75%. Wt stable x 1 month, but shows significant loss x 6 weeks. Regular diet is appropriate as tolerated; supplement orders in place. Will continue to follow PRN.
--- OUTSIDE RECORDS SUMMARY | 2024-09-27 07:30 | XMS_ITS | CCD ---
Author Organization [facility] Care Team Providers Care Industrial Management Teacher Name Role Phone DONNA TURCIOS Unavailable Unavailable CARIE REINA Unavailable Unavailable Bean Cantu Primary Care Provider Puneet Raymundo Attending Provider Curtis Alcocer Attending Provider [phone] Pratik Tadeo Unavailable Unavailable Unavailable Giovanny, Aba Unavailable Carie Keith Unavailable Alyssa Weller Unavailable PRATIK TADEO Primary Care Physician [phone] Unavailable Unavailable MD Madhav Conrad Attending Provider [...] Consulting Unavailable GIOVANNY, ABA Admitting Unavailable AICHHOLZ, CARE AID SEEMA Consulting Unavailable DR PRATIK TADEO Primary Care Unavailable AICHHOLZ, CARE AID SEEMA Admitting Unavailable AICHHOLZ, CARE AID SEEMA Attending Unavailable ZOEY, DR JAYLEEN Manzo Consulting Unavailable TURCIOS, DR DONNA Deleon Admitting Unavailable TURCIOS, DR DONNA Deleon Attending Unavailable TURCIOS, DR DONNA Deleon Consulting Unavailable AICHHOLZ, CARE AID SEEMA Primary Care Unavailable AICHHOLZ, CARE AID SEEMA Consulting Unavailable AICHHOLZ, CARE AID SEEMA Primary Care Unavailable AICHHOLZ, CARE AID SEEMA Admitting Unavailable AICHHOLZ, CARE AID SEEMA Attending Unavailable AICHHOLZ, CARE AID SEEMA Primary Care Unavailable GIOVANNY, ABA Attending Unavailable GIOVANNY, ABA Consulting Unavailable GIOVANNY, ABA Admitting Unavailable Aichholz, Seema J Primary Care Provider MD Curtis Alcocer Attending Provider [phone] Aicjeannie, Seema J Primary Care Unavailable Madhav [...] Unavailable COOK, Med P Referring Unavailable COOK, Mde P Attending Unavailable DONNA TURCIOS Attending Unavailable [...] Unavailable Pratik Tadeo MD Primary Care Provider [phone] Allergies Allergy Classification Reported Allergen(s) Allergy Type Date of Onset Reaction(s) Facility Opioid Agonists (2 sources) Morphine Drug Allergy 02-18-20 21 Hallucinating [facility] (7 sources) Morphine Derivatives; Translations: [Morphine Derivatives] Allergy to drug (finding) Other -[facility] y 250 DO Work Phone: (11 sources) fesoterodine Drug Allergy 03-07-20 24 dizziness/light hearded [facility] (20 sources) Morphine; Translations: [MORPHINE] Drug Allergy 01-16-20 18 hallucinations, Hallucinating, Hallucinating, hallucinations [facility] (1 source) Morphine Drug Allergy [facility] Repository (1 source) Morphine Drug Allergy 03-09-20 21 [facility] Repository (5 sources) Fesoterodine fumarate Allergy to substance 03-07-20 [facility] Healthcare Work Phone: (5 sources) Morphine And Codeine Propensity to adverse reactions 07-25-20 23 [facility] Healthcare Medications Current Medications Medication Drug [...] day(s), # 10 cap(s), Refills(s) 0, Pharmacy: [facility] [id number], 144, cm, 09/27/23 13:10:00 EST, Height/Length Dosing, 49, kg, 09/27/23 13:10:00 EST, Weight Dosing Start Date: 11/13/23 Stop Date: 11/18/23 Status: Ordered Start: 09-27-2023 take 1 capsule by [facility] twice daily Keflex 500 mg Cap 500 mg = 1 cap(s), Oral, BID, start one day prior to procedure., # 14 cap(s), Refills(s) 0, Pharmacy: [place] [id number], 144, cm, 09/27/23 13:10:00 EST, Height/Length Dosing, 49, kg, 09/27/23 13:10:00 EST, Weight Dosing Start Date: 09/27/23 Status: Ordered Start: 08-16-2023 take 1 capsule by [facility] twice daily Keflex 500 mg Cap 500 mg = 1 cap(s), Oral, BID, # 14 cap(s), Refills(s) 0, Pharmacy: [facility] [id number], 144, cm, 08/16/23 10:03:00 EDT, Height/Length Dosing, 49, kg, 08/16/23 10:03:00 EDT, Weight Dosing Start Date: 08/16/23 Status: Ordered Start: 05-19-2022 End: 05-29-2022 take 1 capsule by mouth twice daily Keflex 500 mg Cap 500 mg = 1 cap(s), Oral, BID, X 10 day(s), # 20 cap(s), Refills(s) 0, Pharmacy: [facility] [id number], 144, cm, 05/19/22 14:08:00 EDT, Height/Length Dosing, 49, kg, 05/11/22 11:21:00 EDT, Weight Dosing Start Date: 05/19/22 Stop Date: 05/29/22 Status: Ordered Start: 05-11-2022 take 1 capsule by mo uth twice daily Keflex 500 mg Cap 500 mg = 1 cap(s), Oral, BID, Pt. to start 3 days prior to bladder botox injections, # 14 cap(s), Refills(s) 0, Pharmacy: [facility] [id number], 144, cm, 05/11/22 11:21:00 EDT, Height/Length Dosing, 49, kg, 05/11/22 11:21:00 EDT, Weight Dosing Start Date: 05/11/22 Status: Ordered ciprofloxacin 500 mg oral tablet (3 sources) Quinolone Antimicrobial Start: 11-13-2023 Cipro 500 mg Tab 500 mg = 1 tab(s), Oral, BID, Take twice daily x5 days starting the day prior to the procedure, # 10 tab(s), Refills(s) 0, Pharmacy: [facility] [id number], 144, cm, 09/27/23 13:10:00 EST, Height/Length Dosing, [...] Daily, # 30 tab(s), Refills(s) 11, Pharmacy: [facility] [id number], 144, cm, 08/16/23 10:03:00 EDT, Height/Length Dosing, [...] # 90 tab(s), Refills(s) 3, Pharmacy: [facility], 144, cm, 12/27/21 11:31:00 EST, Height/Length [...] BID, # 14 cap(s), Refills(s) 0, Pharmacy: [facility] 536, 144, cm, 05/05/21 13:13:00 EDT, Height/Length [...] tablet 2 06/24/2024 Active polyethylene glycol 3350 35374 mg powder for oral solution (5 sources) [...] 2018 12:00am take 2 tablets by mo [facility] once daily Trihexyphenidyl HCl - 2 [...] 12:00am March 02, 2018 1:59pm metoprolol succi selnea XL (Toprol-XL) 25 MG 24 hr tablet [...] Coronary arteriosclerosis; Translations: [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] Onset: 03-24-2022 [...] Unclassified (1 source) Athscl heart disease of kiana coronary artery w/o ang pctrs / I25.10(ICD-9) [...] Resolved: 10-18-2021 Episodic Other aftercare (1 source) senior care (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 of aspirin; Translations: [ELECTRIC TRACK SWITCH MAINTAINER CURRENT USE OF ASPIRIN] Onset: 03-24-2022 Episodic Other aftercare (1 source) Other long term acute care registered nurse (current) drug therapy; Translations: [OTH ELECTRIC TRACK SWITCH MAINTAINER CURRENT DRUG THERAPY] Onset: 03-24-2022 Episodic Other [...] TOXIN EIA E coli Shiga Toxin EIA [facility] E COLI SHIGA TOXIN EIA Negative [facility] E COLI SHIGA TOXIN EIA Performed at: [facility] E COLI SHIGA TOXIN EIA [address] [place], [place] [id number] [facility] E COLI SHIGA TOXIN EIA Inside Sales Professional: Conrado Gates PhD, Phone: [phone] [facility] CT BRAIN WO CONTon CT BRAIN [...] Santo MD on 07/18/2024 10:01 PM Normal [facility] CT CERVICAL SPINE WO CONTon 07-18-2024 [...] Alfonso MD on 07/18/2024 10:01 PM Normal [facility] XR ELBOW RT MIN 3 VWSon [...] Alfonso MD on 07/18/2024 10:05 PM Normal [facility] XR SHOULDER RT MIN 2 VWSon [...] Alfonso MD on 07/18/2024 10:02 PM Normal [facility] Lab Reportson 04-11-2024 Lab Reports [id number] F Normal [facility] Ambulatory Visit Summaryon 0 04-10-2024 Ambulatory [...] WATSON, Med Hilario Where: [facility] Patient Educationon 04-10-20 Patient Education [...] stimulation). ? For women, using a medical terminologist to prevent urine leaks. This is a [...] urine. ? (more content not included)... Normal [facility] Urology Office/Clinic Noteon 04-10-2024 Urology Office/Clinic [...] with voice recognition artificial intelligence software, specifically [employer], [place] and or Kabam. Substitutions may have occurred due to the [...] MD, URL [address] [facility] [place] [address]- Additional Instructions: 6 mos Patient Education Urinary Incontinence Jenny Haley, personally scribed for Dr. Jenkins on 04/10/2024 10:25:32. . Documentation recorded by the scribe, Jenny Luna, accurately reflects the services(s) I performed and decisions made by me. Authenticated by Dr. Jenkins on 04/10/2024 10:26:50. Problem List/Past Medical History Ongoing Aspirin long-term use Asymptomatic microscopic hematuria Dysuria Flank pain Frequency of urination Hx of halfway 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 thinners Incomplete bladder emptying Incontinence without sensory awareness Incontinence without sensory awareness Kidney stone Mixed incontinence Myocardial infarction Nocturia OAB (overactive bladder) Overactive bladder Recurrent UTI Stress incontinence Urge incontinence Urge incontinence of urine Urgency of urinati (more content not included)... [facility] Comment on above: Result Comment: Elec tronically Signed By: Med JENKINS MD\.br\Date and Time Signed: 04/10/24 10:27 EDT\.br\Electronically Co-Signed By: Jenny Luna\.br\Date and Time Co-Signed: 04/10/24 10:25 EDT Consent for Procedure/Surger yon 03-13-2024 Consent for Procedure/Surgery [id number]#[id number] F [facility] Consent for Procedure/Surgery [id number]#[id number] FF [facility] Erythrocyte distribution wid th Auto (RBC) [Ratio]on 02-27-2024 Erythrocyte distribution width (RBC) [Ratio] 13.0 % 11.0-15.0 [facility] Estimated glomerular filtrat ion rate (GFR) non- Americanon 02-27-2024 GFR/1.73 sq M.predicted among non-blacks MDRD (S/P/Bld) [Vol rate/Area] 57 mL/min/{1.73_m2} >=60 [facility] Hematocrit Auto (Bld) [Volum e fraction]on 02-27-2024 Hematocrit (Bld) [Volume fraction] 37.0 % 36.0-48.0 [facility] Hemoglobin [Mass/volume] in Bloodon 02-27-2024 Hemoglobin (Bld) [Mass/Vol] 12.1 g/dL 12.0-16.0 [facility] Laboratory - Chemistry and C hemistry - challengeon 02-27-2024 Albumin [Mass/Vol] 3.5 g/dL 3.4-5.0 [facility] Calcium [Mass/Vol] 9.3 mg/dL 8.5-10.1 [facility] Chloride [Moles/Vol] 104 mmol/L 98-107 [facility] CO2 [Moles/Vol] 29.1 mmol/L 21.0-32.0 [facility] Creatinine [Mass/Vol] 0.94 mg/dL 0.55-1.02 [facility] GFR/1.73 sq M.predicted MDRD (S/P/Bld) [Vol rate/Area] mL/min/{1.73_m2} >=60 [facility] Glucose [Mass/Vol] 126 mg/dL 74-106 [facility] Magnesium [Mass/Vol] 1.7 mg/dL 1.8-2.4 [facility] Potassium [Moles/Vol] 4.1 mmol/L 3.5-5.1 [facility] Sodium [Moles/Vol] 141 mmol/L 136-145 [facility] Urea nitrogen [Mass/Vol] 28.0 mg/dL 7.0-18.0 [facility] Urea nitrogen/Creatinine [Mass ratio] 29.8 mg/mg [facility] Leukocytes [#/volume] correc db for nucleated erythrocytes in Blood by Automated counon 02-27-2024 WBC corrected for nucl RBC Auto (Bld) [#/Vol] 9.9 10 3/uL 4.0-11.0 [facility] MCH Auto (RBC) [Entitic mass ]on 02-27-2024 MCH (RBC) [Entitic mass] 32.6 pg 26.7-34.0 [facility] MCHC Auto (RBC) [Mass/Vol]on 02-27-2024 MCHC (RBC) [Mass/Vol] 32.7 g/dL 29.9-35.2 [facility] MCV Auto (RBC) [Entitic vol] on 02-27-2024 MCV (RBC) [Entitic vol] 99.7 fL 81.0-99.0 [facility] No Panel Informationon 02-26 25-Hydroxy Vitamin D Total 34.4 ng/mL [facility] Comment on above: <20 ng/mL Vit D defi cient20-<30 ng/mL Vit D crmlwmnhedvi61-813 ng/mL Vit D sufficient>100 ng/mL Potential Toxicity Parathyroid Hormone (Intact) 3 pg/mL 15-65 [facility] Comment on above: Performed at: [address] [id number] Director: Conrado Gates PhD, Phone: [phone] Phosphorus Level 3.6 mg/dL 2.6-4.7 [facility] Platelet mean volume Auto (B ld) [Entitic vol]on 02-27-2024 Platelet mean volume (Bld) [Entitic vol] 9.4 fL 9.5-13.5 [facility] Platelets Auto (Bld) [#/Vol] on 02-27-2024 Platelets (Bld) [#/Vol] 196 10 3/uL 150-450 [facility] RBC Auto (Bld) [#/Vol]on RBC (Bld) [#/Vol] 3.71 10 6/uL 4.20-5.40 [facility] Serum or plasma anion gap de terminationon 02-27-2024 Anion gap [Moles/Vol] 12.0 mmol/L [facility] Consent for Treatmenton 01-29 Consent for Treatment [id number]#[id number] FF Normal [facility] Inpatient Patient Summaryon 02-26-2024 Inpatient Patient Summary [place] [id number] Clinical Summary Person Information Name: NARCISO VELASQUEZ Age: 83 Years : 1940 Sex: Female PCP: PRATIK TADEO MD Marital Status: Race: White Ethnicity: Non- or Language: Senegalese Visit Id: Visit Reason: URINARY INCONTINENCE Speciality: Acuity: Enc Type: Outpatient Med Service: Surgery Arrival: 02/26/2024 12:39:14 Discharge: Dispo Type: Address: [address] [place] [phone] Provider Notes: Diagnosis: Problems Active Incontinence without sensory awareness Recurrent UTI Incomplete bladder emptying Stress incontinence UTI (urinary tract infection) Urinary retention UTI symptoms Overactive bladder Aspirin long-term use Weak urine stream Weak urinary stream Hx of long term acute care registered nurse 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 thinners Mixed incontinence Frequency [...] up: With: Address: When: Med JENKINS Joe [facility], [address], [place] [phone] [facility] (1) Within 6 weeks Comments: Call for followup appointment, with a bladder scan at that visit to check for bladder emptying. Patient Education Information: EU - Cystoscopy with Botox Injection Discharge Instructions (Custom) [facility] IntraOperative Documentson 0 02-26-2024 IntraOperative Documents [id number] FF [facility] Main OR Intraoperative Recor don 02-26-2024 Main OR Intraoperative Record IntraOp Document Type FTURO Summary Primary Physician: Med JENKINS MD Finalized Date/Time: 02/26/24 13:43:34 Pt. Name: NARCISO VELASQUEZ/Sex: 1940 Female Med Rec #: [id number] Physician: Med JENKINS MD Financial #: [id number] Pt. Type: O Room/Bed: / Admit/Disch: 02/26/24 [...] Krishna Moctezuma Role Performed Surgeon - Primary School Lunch Monitor - Primary Scrub - Primary Time In [...] Comments: botox 100 units out date03/24 lot [id number] botox 50 units outdate 12/25 lot [id number] General Case Data FTURO Pre-Care Text: Classifies [...] JASPREET [place] RN, Ruthann 02/26/24 13:43 Normal [facility] Main OR Preoperative Recordo n 02-26-2024 Main OR Preoperative Record Holding Area Document Type FTURO Summary Primary Physician: Med JENKINS MD Finalized Date/Time: 02/26/24 13:13:19 Pt. Name: RONNARCISO/Sex: 1940 Female Med Rec #: [id number] Physician: Med JENKINS MD Financial #: [id number] Pt. Type: O Room/Bed: / Admit/Disch: 02/26/24 [...] By: Dorie [place] RN 02/26/24 13:13 Normal [facility] Operative Reporton Operative Report Patient: STEPHANIA VELASQUEZ Age: 83 years Sex: Female : 1940 Associated Diagnoses: None Author: Med JENKINS MD Procedure Operative Information Details: Date/ Time: 02/26/2024 13:46:00. Pre-Op Dx: Overactive bladder (VYM06-XD N32.81, Working, Medical), Urgency incontinence (GSA45-OO N39.41, Working, Medical). Post-Op Dx: Same. Anesthesia [...] Follow up arranged, F/U six weeks. Normal [facility] Comment on above: Result Comment: Elec tronically Signed By: Med JENKINS MD\.hector\Date and Time Signed: 02/26/24 13:51 EDT Outpatient Surgery Discharge Instructionon 02-26-2024 Outpatient Surgery Discharge Instruction [id number]#[id number] FF Normal [facility] Outpatient Surgery Discharge Instruction [address] [address] Patient Discharge Instructions PERSON INFORMATION [...] up: With: Address: When: Med JENKINS [address], [address], [place] [address] [facility] (1) Within 6 weeks Comments: [...] to serve you. Thank you for choosing [facility] Normal [facility] C Urineon 11-16-2023 Bacteria identified Cx [...] Locations R1: This test was performed at: [facility], [address] [place] [address], [phone] , , [facility] Comment on above: Performed By: #### 2 [id number] ####[place] [address] [place] [address] Consent for Treatmenton 10-30 Consent for Treatment [id number] F Normal [facility] Inpatient Patient Summaryon 11-13-2023 Inpatient Patient Summary [place] [id number] Clinical Summary Person Information Name: NARCISO VELASQUEZ Age: 82 Years : 1940 Sex: Female PCP: PRATIK TADEO MD Marital Status: Race: White Ethnicity: Non- or Language: Senegalese Visit Id: Visit Reason: URINARY INCONTINENCE Speciality: Acuity: Enc Type: Outpatient Med Service: Surgery Arrival: 11/13/2023 13:31:33 Discharge: Dispo Type: Address: [address] [place] [phone] Provider Notes: Diagnosis: Problems Active Incontinence without sensory awareness Recurrent UTI Incomplete bladder emptying Stress incontinence UTI (urinary tract infection) Urinary retention UTI symptoms Overactive bladder Aspirin long-term use Weak urine stream Weak urinary stream Hx of long term acute care registered nurse 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 thinners Mixed incontinence Frequency [...] With: Address: When: Med FENG, [address], [facility] [address] [place] [phone] Business (1) Comments: As you know we [...] locally and the cranberry is self-explanatory. My lead web application developer will call you to get you back on the books for the Botox injection. Patient Education Information: Franca [facility] Main OR Preoperative Recordo n 11-13-2023 Main OR Preoperative Record Holding Area Document Type FTURO Summary Primary Physician: Finalized Date/Time: 11/13/23 16:40:45 Pt. Name: NARCISO VELASQUEZ/Sex: 1940 Female Med Rec #: [id number] Physician: Med JENKINS MD Financial #: [id number] Pt. Type: O Room/Bed: / Admit/Disch: 11/13/23 [...] and he said they would call her nursing care attendant right away [facility]. Finalized By: JASPREET [place] RN, Ruthann Document Signatures Signed By: JASPREET [place] RN, Ruthann 11/13/23 14:43 JASPREET Bennett RN, Ruthann 11/13/23 14:43 JASPREET Bennett RN, Ruthann 11/13/23 16:40 Normal [facility] Outpatient Surgery Discharge Instructionon 11-13-2023 Outpatient Surgery Discharge Instruction [address] [address] Patient Discharge Instructions PERSON INFORMATION [...] Follow up: With: Address: When: Med JENKINS [address] [place] [address], [address], [place] [phone] Business (1) Comments: As you know we [...] locally and the cranberry is self-explanatory. My lead web application developer will call you to get you back on the books for the Botox injection. Comment: PATIENT EDUCATION INFORMATION Instructions: RON Haley PATRICIA A, have received the attached patient education materials/instructions and have verbalized understanding: May we do a follow up call? Yes No I was present when discharge instructions were given Patient Signature Date Clinican/Nurse Signature Date You may receive a survey from [facility] asking you to rate your care experience. Your feedback is important and will help us understand what we do well and how we can improve the quality of care we provide to you, your loved ones and our community. It?s an honor to serve you. Thank you for choosing [facility] Normal [facility] Patient Educationon 11-13-19 Patient Education Normal [facility] Progress Note-Physicianon Progress Note-Physician Patient: NARCISO [...] procedure., # 14 cap(s), Refills(s) 0, Pharmacy: [facility] [id number], 144, cm, 09/27/23 13:10:00 EST, Height/Length Dosing, [...] All Problems Kidney stone / SNOMED CT 233778991 / Confirmed Incontinence without sensory awareness / SNOMED CT 5588098655 / Confirmed Weak urinary stream / SNOMED CT 3542105560 / Confirmed Urge incontinence of urine / SNOMED CT 337960345 / Confirmed Flank pain / SNOMED CT 433305901 / Confirmed Myocardial infarction / SNOMED CT 47080311 / Confirmed Nocturia / SNOMED CT 469772099 / Confirmed Urinary urgency / SNOMED CT 897639199 / Confirmed Hx of halfway 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 thinners / SNOMED CT 102873081 / Confirmed Urgency of urination / SNOMED CT 967883024 / Confirmed Urge incontinence / SNOMED CT 129251582 / Confirmed Dysuria / SNOMED CT 68077397 / Confirmed Asymptomatic microscopic hematuria / SNOMED CT 4752887532 / Confirmed Mixed incontinence / SNOMED CT 78946325 / Confirmed Frequency of urination / SNOMED CT 959556788 / Confirmed Weak urine stream / SNOMED CT 481055938 / Confirmed OAB (overactive bladder) / SNOMED CT 6996578034 / Confirmed Aspirin long-term use / SNOMED CT 7291713264 / Confirmed Overactive bladder / SNOMED CT 8506315961 / Confirmed UTI symptoms / SNOMED CT 909466521 / Confirmed Urinary retention / SNOMED CT 639334966 / Confirmed UTI (urinary tract infection) / SNOMED CT 529077672 / Confirmed Stress incontinence / SNOMED CT 708556340 / Confirmed Incomplete bladder emptying / SNOMED CT 540508050 / Confirmed Recurrent UTI / SNOMED CT 218373427 / Confirmed Incontinence without sensory awareness / SNOMED CT 8017278185 / Confirmed, Active Problems (26) Aspirin long-term use Asymptomatic microscopic hematuria Dysuria Flank pain Frequency of urination Hx of halfway 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 thinners Incomplete bladder emptying [...] Plan Assessment and Plan: Diagnosis: Acute UTI (WUP68-EG N39.0, Working, Medical), Mixed incontinence urge and stress (SWH67-MV N39.46, Working, Medical), Overactive bladder (MNF55-QS N32.81, Working, Medical). Additional Plan of Care and/or Course of Treatment: Additional Plan of Care and/or Course of Treatment: Discussed extensively with the patient and her . Due to the presence of what appears to be an active urinary tract infection, have to cancel the B (more content not included)... Normal [facility] Comment on above: Result Comment: Elec tronically Signed By: Med JENKINS MD\.br\Date and Time Signed: 11/13/23 14:46 EST Ambulatory Visit Summaryon 1 11-27-2022 Ambulatory Visit Summary NARCISO VELASQUEZ :1940 Visit Date:09/27/2023 Ambulatory Visit Instructions Your Diagnosis Urge incontinence Incontinence without sensory awareness OAB (overactive bladder) Recurrent UTI Tests Performed Urnls Dip Stick Auto w/o Microscopy POC 98490 Your Care Team Attending Physician - Med [...] with TRINA WATSON, ARELI Ramirez When: Where: [facility] [employer] [address] [place] [address]- Medications What How Much When Instructions Changed cephalexin (Keflex 500 mg Cap) 1 Capsules By Mouth 2 times a day start one day prior to procedure. Pickup at [facility] [id number] Unchanged acetaminophen Contact prescribing physician if questions [...] Pharmacy Information [facility] [id number]: [address] [place], [place] [phone] What How Much When Comments Stop Taking methenamine (methenamine hippurate 1 g oral tablet) 0.5 Tablets By Mouth Every day Test Results Urnls Dip Stick Auto w/o Microscopy POC 66620 (09/27/2023) POC Test Comments - Pt. was not able to urinate Allergies No Known Allergies Problems Ongoing - Any problem that you are currently receiving treatment for. Aspirin long-term use Asymptomatic microscopic hematuria Dysuria Flank pain Frequency of urination Hx of halfway 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 thinners Incomplete bladder emptying [...] urethra blocke (more content not included)... Normal [facility] Patient Educationon 09-27-20 23 Patient Education [...] stimulation). ? For women, using a medical terminologist to prevent urine leaks. This is a [...] urine. ? (more content not included)... Normal [facility] Urology Office/Clinic Noteon 09-27-2023 Urology Office/Clinic [...] with voice recognition artificial intelligence software, specifically Eyewitness Surveillance, [place]if[place] and or Kabam. Substitutions may have occurred due to the [...] Information TRINA WATSON, Med Hilario, URL [address] [address]- Additional Instructions: Schedule botox 150 units Patient Education Urinary Incontinence I, Jenny Luna, personally scribed for Dr. Jenkins on 09/27/2023 13:17:45. . Documentation recorded by the guanakitoibe, Jenny Luna, accurately reflects the services(s) I performed and decisions made by me. Authenticated by Dr. Jenkins on 09/27/2023 13:21:04. Problem List/Past Medical History Ongoing Aspirin l (more content not included)... [facility] Comment on above: Result Comment: Elec [...] Locations R1: This test was performed at: [facility], [address] [place] [address], [id number]- , , [facility] Comment on above: Performed By: #### 2 [id number] #### [facility] [address] [place] [address] Ambulatory Visit Summaryon 1 Ambulatory Visit Summary NARCISO VELASQUEZ :1940 Visit Date:08/16/2023 Ambulatory Visit Instructions Your Diagnosis Urge incontinence OAB (overactive bladder) Recurrent UTI Tests Performed Urnls Dip Stick Auto w/o Microscopy POC 11013 Your Care Team Attending Physician - TRINA [...] WATSON, Med Hilario Where: [facility] Patient Educationon 08-16-20 Patient Education [...] this condition includes: ? Antibiotic medicine. ? Rfop-aoa-yqvfmkg medicines to treat discomfort. ? Drinking enough [...] these instructions at home: Medicines ? Take rfwt-lrr-xvxgudt and prescription medicines only as told by [...] Revie (more content not included)... Normal [facility] Urology Office/Clinic Noteon 08-16-2023 Urology Office/Clinic [...] with voice recognition artificial intelligence software, specifically Eyewitness Surveillance, Clifton and or Kabam. Substitutions may have occurred due to the [...] at next visit -Check with [facility] in [place] regarding incontinence supplies 1a. Current UTI. 2. [...] Information Med JENKINS MD, URL [address] [place], [place] [id number]- Additional Instructions: 6 wks since starting Methenamine [...] Flank pain Frequency of urination Hx of halfway 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 thinners Incomplete bladder emptying Incontinence without sensory awareness Kidney stone Mixed incontinence Myocardial infarction Nocturia OAB (overactive bladder) Overactive bladder Recurrent UTI Stress incontinence Urge incontinence Urge incontinence of urine Urgency of urin (more content not included)... Normal [facility] Comment on above: Result Comment: Elec [...] rheumatology locally, currently stable Donna Turcios MD, [facility] Surgical History Problems History of Angioplasty [...] negative for complaint. Vitals Vital Signs Recorded: [id number] 10:40AM Heart Rate60, L Radial Cqwjikwg492, LUE, Sitting Skdnobeek26, LUE, Sitting Height4 ft 10 in Cucenx382 lb BMI Ezrzoidxpt68.11 kg/m2 BSA Calculated1.36 Tobacco Useb) No Falls [...] a) No falls within the last year [facility] DO Work Phone: Tobacco use status CPHS b) No [facility] 250 DO Work Phone: XR calcaneus BIon 07-05-2023 XR calcaneus BI [facility] Main [place] [address] [place] [address] XRay Report Signed Patient: Narciso Velasquez MR#: [id number] : 1940 Acct:[id number] Age/Sex: 82 / F ADM Date: 07/05/23 Loc: ICXD Room: Type: [facility] Attending Dr: Curtis Alcocer MD Copies to: Curtis Alcocer MD Ordering Provider: Curtis Alcocer MD Date of Service: 07/05/23 XR/XR foot BI 2V: BENJIE HEAL/FOOT PAIN ([id number]) XR/XR calcaneus BI: FOOT/HEAL PAIN CLINICAL DATA: [...] Zuly Leon M.D.07/05/2023 5:55 PM Dictation Location: [place] [address] Transcribed By: [facility] 07/05/231754 Dictated By: Zuly Leon MD 07/05/231752 Signed By: 07/05/231754 [facility] Lab Reportson 06-12-2023 Lab Reports [id number]: 127 [facility] Lab Reports [id number]: 127 [facility] Lab Reports [id number]: 127 [facility] Lab Reportson 06-10-2023 Lab Reports [id number]#1.00CD: 127 [facility] Consent for Procedure/Surger yon 05-11-2023 Consent for Procedure/Surgery [id number]#1.00CD :127 [facility] Consent for Treatmenton 04-29 Consent for Treatment [id number]#1.00CD: 127 [facility] Inpatient Patient Summaryon 05-11-2023 Inpatient Patient Summary [place] [id number] Clinical Summary Person Information Name: NARCISO VELASQUEZ Age: 82 Years : 1940 Sex: Female PCP: PRATIK TADEO MD Marital Status: Race: White Ethnicity: Non- or Language: Senegalese Visit Id: Visit Reason: URINERY INCONTINENCE Speciality: Acuity: Enc Type: Outpatient Med Service: Surgery Arrival: 05/11/2023 07:16:35 Discharge: Dispo Type: Address: [address] [place] [phone] Provider Notes: Diagnosis: Problems Active Incomplete bladder emptying Stress incontinence UTI (urinary tract infection) Urinary retention UTI symptoms Overactive bladder Aspirin long-term use Weak urine stream Weak urinary stream 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 Patient Education Information: EU - Cystoscopy with Botox Injection Discharge Instructions (Custom) Normal [facility] IntraOperative Documentson 0 05-11-2023 IntraOperative Documents [id number] :127 Normal [facility] Main OR Intraoperative Recor don 05-11-2023 Main OR Intraoperative Record IntraOp Document Type FTURO Summary Primary Physician: Med JENKINS MD Finalized Date/Time: 05/11/23 08:07:27 Pt. Name: NARCISO VELASQUEZ Derrick Tellez./Sex: 1940 Female Med Rec #: [id number] Physician: Med JENKINS MD Financial #: [id number] Pt. Type: O Room/Bed: / Admit/Disch: 05/11/23 [...] Kendall R Role Performed Surgeon - Primary School Lunch Monitor - Primary Scrub - Primary Time In [...] 08:07:16 General Comments: botox 100 units, lot: [id number] exp: General Case Data FTURO Pre-Care Text: [...] 05/11/23 08:07 Heather Randhawa 05/11/23 08:07 Normal [facility] Main OR Preoperative Recordo n 05-11-2023 Main OR Preoperative Record Holding Area Document Type FTURO Summary Primary Physician: Med JENKINS MD Finalized Date/Time: 05/11/23 07:53:38 Pt. Name: NARCISO VELASQUEZ Derrick WeberB./Sex: 1940 Female Med Rec #: [id number] Physician: Med JENKINS MD Financial #: [id number] Pt. Type: O Room/Bed: / Admit/Disch: 05/11/23 [...] 07:36 Dorie Logan RN 05/11/23 07:53 Normal [facility] Operative Reporton Operative Report Patient: STEPHANIA VELASQUEZ Age: 82 years Sex: Female : 1940 Associated Diagnoses: None Author: Med JENIKNS MD Procedure Operative Information Details: Date/ Time: [...] months with bladder scan PVR. . Normal [facility] Comment on above: Result Comment: Elec tronically Signed By: Med JENKINS MD\.br\Date and Time Signed: 05/11/23 08:03 EDT Outpatient Surgery Discharge Instructionon 05-11-2023 Outpatient Surgery Discharge Instruction [address] [address] Patient Discharge Instructions PERSON INFORMATION [...] Follow up: With: Address: When: Med JENKINS [address] [place] [address], [address], [address] [address] Business (1) Within 3 months [...] Date You may receive a survey from [employer] asking you to rate your care experience. Your feedback is important and will help us understand what we do well and how we can improve the quality of care we provide to you, your loved ones and our community. It?s an honor to serve you. Thank you for choosing [facility] Normal [facility] Office Visit (Cardiology)on 01-12-2023 Follow-up visit [...] rheumatology locally, currently stable Donna Turcios MD, [facility] Surgical History Problems History of Angioplasty [...] Recorded: 12Jan2023 11:13AM Heart Rate88, L Radial Kwgkjhbr073, LUE, Sitting Xzmcmmadh56, LUE, Sitting Height4 ft 10 in Btvlrx140 lb BMI Kctyfcnlys39.95 kg/m2 BSA Calculated1.38 Tobacco Useb) No PHQ-2 [...] . Pulmo (more content not included)... Normal [facility] Tobacco Screening.on 023 Adult depression screening assessment No [facility] DO Work Phone: Fall risk assessment a) No falls within the last year [facility] 250 DO Work Phone: Tobacco use status CP b) No -[facility] 250 DO Work Phone: PTH INTACTon 11-30-2022 PTH, Intact 3 pg/mL Critically low 15-65 [facility] Comment on above: Performed By: #### R ENAL, MG #### [facility] [address] [place] [address] Dr. Emilie Jeronimo HEMOGRAM AND PLATELon 2022 Hematocrit (Bld) [Volume fraction] 38.0 % Normal 36.0-48.0 [facility] Comment on above: Performed By: #### R ENAL, MG #### [facility] [address] [place] [address] Dr. Emilie Jeronimo Hemoglobin (Bld) [Mass/Vol] 12.9 g/dL Normal 12.0-16.0 [facility] Comment on above: Performed By: #### R ENAL, MG #### [facility] [address] [place] [address] Dr. Emilie Jeronimo MCH (RBC) [Entitic mass] 32.5 pg Normal 26.7-34.0 [facility] Comment on above: Performed By: #### R ENAL, MG #### [facility] [address] [place] [address] Dr. Emilie Jeronimo MCHC (RBC) [Mass/Vol] 33.9 g/dL Normal 29.9-35.2 [facility] Comment on above: Performed By: #### R ENAL, MG #### [facility] [address] [place] [address] Dr. Emilie Jeronimo MCV (RBC) [Entitic vol] 95.7 fL Normal 81.0-99.0 [facility] Comment on above: Performed By: #### R ENAL, MG #### [facility] [address] [place] [address] Dr. Emilie Jeronimo PLT 214 103/ul Normal 150-450 [facility] Comment on above: Performed By: #### R ENAL, MG #### [facility] [address] [place] [address] Dr. Emilie Jeronimo RBC 3.97 106/ul Critically low 4.20-5.40 [facility] Comment on above: Performed By: #### R ENAL, MG #### [facility] [address] [place] [address] Dr. Emilie Jeronimo WBC 7.7 103/ul Normal 4.0-11.0 [facility] Comment on above: Performed By: #### R ENAL, MG #### [facility] [address] [place] [address] Dr. Emilie Jeronimo MAGNESIUMon 11-29-2022 Magnesium [Mass/Vol] 1.3 mg/dL Critically low 1.8-2.4 [facility] Comment on above: Performed By: #### R ENAL, MG #### [facility] [address] [place] [address] Dr. Emilie Jeronimo RENAL FUNCTION PANELon 11-29 Albumin [Mass/Vol] 3.6 g/dL Normal 3.4-5.0 [facility] Comment on above: Performed By: #### R ENMICHELLE, MG #### [facility] [address] [place] [address] Dr. Emilie Jeronimo Calcium [Mass/Vol] 9.4 mg/dL Normal 8.5-10.1 [facility] Comment on above: Performed By: #### R ENAL, MG #### [facility] [address] [place] [address] Dr. Emilie Jeronimo Chloride [Moles/Vol] 103 mmol/L Normal 98-107 [facility] Comment on above: Performed By: #### R ENMICHELLE, MG #### [facility] [address] [place] [address] Dr. Emilie Jeronimo CO2 [Moles/Vol] 32.5 mmol/L Critically high 21.0-32.0 [facility] Comment on above: Performed By: #### R ENMICHELLE, MG #### [facility] [address] [place] [address] Dr. Emilie Jeronimo Creatinine [Mass/Vol] 0.79 mg/dL Normal 0.55-1.02 [facility] Comment on above: Performed By: #### R ENAL, MG #### [facility] [address] [place] [address] Dr. Emilie Jeronimo EGFR-AF BRUNEIAN >60 Normal >=60 [facility] Comment on above: Performed By: #### R ENAL, MG #### [facility] [address] [place] [address] [address] Emilie Jeronimo EGFR-NON AF BRUNEIAN >60 Normal >=60 [facility] Comment on above: Performed By: #### R ENAL, MG #### [facility] [address] [place] [address] Dr. Emilie Jeronimo Glucose [Mass/Vol] 95 mg/dL Normal 74-106 [facility] Comment on above: Performed By: #### R ENMICHELLE, MG #### [facility] [address] [place] [address] Dr. Emilie Jeronimo Phosphate [Mass/Vol] 4.0 mg/dL Normal 2.6-4.7 [facility] Comment on above: Performed By: #### R ENMICHELLE, MG #### [facility] [address] [place] [address] Dr. Emilie Jreonimo Potassium [Moles/Vol] 3.8 mmol/L Normal 3.5-5.1 [facility] Comment on above: Performed By: #### R ENAL, MG #### [facility] [address] [place] [address] Dr. Emilie Jeronimo Sodium [Moles/Vol] 145 mmol/L Normal 136-145 [facility] Comment on above: Performed By: #### R ENAL, MG #### [facility] [address] [place] [address] Dr. Emilie Jeronimo Urea nitrogen [Mass/Vol] 17.0 mg/dL Normal 7.0-18.0 [facility] Comment on above: Performed By: #### R ENMICHELLE, MG #### [facility] [address] [place] [address] Dr. Emilie Jeronimo UA RANDOM W/MICROSCOPICon BACTERIA SMALL Abnormal NONE SEEN [facility] Comment on above: Performed By: #### R ENAL, MG #### [facility] [address] [place] [address] Dr. Emilie Jeronimo Bilirubin Ql (U) Negative Normal NEGATIVE [facility] Comment on above: Performed By: #### R ENAL, MG #### [facility] [address] [place] [address] Dr. Emilie Jeronimo CAST NONE SEEN Normal NONE SEEN [facility] Comment on above: Performed By: #### R ENAL, MG #### [facility] [address] [place] [address] Dr. Emilie Jeronimo Clarity (U) SL CLOUDY Abnormal CLEAR [facility] Comment on above: Performed By: #### R ENAL, MG #### [facility] [address] [place] [address] Dr. Emilie Jeronimo Color (U) LT. YELLOW Normal YELLOW [facility] Comment on above: Performed By: #### R ENAL, MG #### [facility] [address] [place] [address] Dr. Emilie Jeronimo Crystals LM Nom (Urine sed) NONE SEEN Normal NONE SEEN [facility] Comment on above: Performed By: #### R ENAL, MG #### [facility] [address] [place] [address] Dr. Emilie Jeronimo Epithelial cells LM Ql (Urine sed) RARE Normal NONE SEEN /RARE [facility] Comment on above: Performed By: #### R ENAL, MG #### [facility] [address] [place] [address] Dr. Emilie Jeronimo Glucose Ql (U) Negative Normal NEGATIVE [facility] Comment on above: Performed By: #### R ENAL, MG #### [facility] [address] [place] [address] Dr. Emilie Jeronimo Hemoglobin Ql (U) TRACE-INTACT Abnormal NEGATIVE [facility] Comment on above: Performed By: #### R ENAL, MG #### [facility] [address] [place] [address] [address] Emilie Jeronimo Ketones Ql (U) Negative Normal NEGATIVE [facility] Comment on above: Performed By: #### R ENAL, MG #### [facility] [address] [place] [address] Dr. Emilie Jeronimo LEUKOCYTES LARGE Abnormal NEGATIVE [facility] Comment on above: Performed By: #### R ENAL, MG #### [facility] [address] [place] [address] [address] Emilie Jeronimo MUCOUS TRACE Abnormal NONE SEEN [facility] Comment on above: Performed By: #### R ENAL, MG #### [facility] [address] [place] [address] Dr. Emilie Jeronimo Nitrite Ql (U) Positive Abnormal NEGATIVE [facility] Comment on above: Performed By: #### R ENAL, MG #### [facility] [address] [place] [address] Dr. Emilie Jeronimo pH (U) 6.5 [pH] Normal 5-9 [facility] Comment on above: Performed By: #### R ENAL, MG #### [facility] [address] [place] [address] Dr. Emilie Jeronimo RBC 2-5 Abnormal 0-2 [facility] Comment on above: Performed By: #### R ENAL, MG #### [facility] [address] [place] [address] Dr. Emilie Jeronimo SPEC GRAVITY 1.020 Normal 1.005-<=1.025 The [facility] Comment on above: Performed By: #### R ENAL, MG #### [facility] [address] [place] [address] Dr. Emilie Jeronimo UA PROTEIN TRACE Normal NEGATIVE/ TRACE [facility] Comment on above: Performed By: #### R ENAL, MG #### [facility] [address] [place] [address] Dr. Emilie Jeronimo Urobilinogen Qn (U) 1.0 {Fareed'U}/dL Normal 0.2 - 1. 0 [facility] Comment on above: Performed By: #### R ENAL, MG #### [facility] [address] [place] [address] Dr. Emilie Jeronimo WBC 20-50 Abnormal NONE SEEN [facility] Comment on above: Performed By: #### R ZEESHAN, MG #### [facility] [address] [place] [address] [address] Emilie Jeronimo VITAMIN D 25 OHon 11-29-2022 VIT D 25-OH 38.1 ng/mL Normal [facility] Comment on above: Performed By: #### R ZEESHAN, MG #### [facility] [address] [place] [address] [address] Emilie Jeronimo VIT D RANGES SEE BELOW Normal [facility] Comment on above: Result Comment: <20 ng/mL Vit D deficient 20 - <30 ng/mL Vit D insufficient 30 - 100 ng/mL Vit D sufficient >100 ng/mL Potential Toxicity Performed By: #### Jovany BYERS, MG #### [facility] [address] [place] [address] Dr. Emilie Corral 08-02-2022 L ---- Specimen: [id number] Received: 08/02/22 Status: BIANKA Meyer Num: [id number] Spec Type: Surgical Subm Dr: Madhav Conrad MD Tissues: A Gastric Biopsy (GASTRIC BX) Procedures: HE Stain/2, Gross/Micro L4 Age/ Patient Sex Location Account Attending Physician RonMagdaNarciso A 81/[facility] [id number] Madhav Conrad MD SPEC NUM: [id number] RECD: 08/02/22 STATUS: BIANKA MEYER NUM: [id number] SHERLYN: 08/02/[address] [facility] [address]: Madhav Conrad MD ENTERED: 08/02/[address] [facility] [address]: VIVI TYPE: Surgical DEPT: S ORDERED: [...] findings support the above pathologic diagnosis. Specimen: [id number] Received: 08/02/22 Status: BIANKA Meyer Num: [id number] Spec Type: Surgical Subm Dr: Madhav Conrad MD Tissues: A Gastric Biopsy (GASTRIC BX) Procedures: HE Stain/2, Gross/Micro L4 Patient: Narciso Velasquez [id number] (Continued) Specimen: [id number] Received: 08/02/22 (Continued) Signed (signature on file) Donita Severino MD 08/04/22 1313 Specimen: [id number] Received: 08/02/22 Status: BIANKA Meyer Num: [id number] Spec Type: Surgical Subm Dr: Madhav Conrad MD Tissues: A Gastric Biopsy (GASTRIC BX) Procedures: HE Stain/2, Gross/Micro L4 Patient: Narciso Velasquez [id number] (Continued) Specimen: [id number] Received: 08/02/22 (Continued) CPT Codes 85555 Specimen: [id number] Received: 08/02/22 Status: BIANKA Meyer Num: [id number] Spec Type: Surgical Subm Dr: Madhav Conrad MD Tissues: A Gastric Biopsy (GASTRIC BX) Procedures: HE Stain/2, Gross/Micro L4 Patient: Narciso Velasquez [id number] (Continued) Signed (signature on file) Donita Severino MD 08/04/22 1313 Normal [facility] SARS-CoV-2 (COVID-19) RNA GAUDENCIO+probe Ql (Unsp spec) Negative Normal Negative [facility] Comment on above: Order Comment: Healt hcare Worker?: N Result Comment: Testing for SARS-CoV-2 by RT-PCR This test was developed and its performance characteristics determined by [employer] (studentSN) and validated at the [facility]. This test has not been [...] is terminated or revoked sooner. PERFORMED BY: [facility] [address] [place] [address] PATHOLOGIST FORENSIC ENGINEER CHELSY MAHMOOD M.D. Performed By: #### C OVID 19 [facility] #### [facility] [address] COVID-19 Positive/NegativeOr dered By: Madhav Conrad on 07-29-2022 SARS-CoV-2 (COVID-19) N gene GAUDENCIO+probe Ql (Resp) Negative Negative [facility] Comment on above: Testing for SARS-CoV -2 by RT-PCRThis test was developed and its performance characteristics determined by [employer] (studentSN) and validated at the [facility]. This test has not been [...] 07-11-2022 BASO # 0.1 103/ul Normal 0.0-0.1 [facility] Comment on above: Performed By: #### C BC #### [facility] [address] [place] [address] Dr. Emilie Jeronimo Basophils/100 WBC (Bld) 0.6 % Normal 0.2-2.0 [facility] Comment on above: Performed By: #### C BC #### [facility] [address] [place] [address] Dr. Emilie Jeronimo EO # 0.2 103/ul Normal 0.0-0.7 [facility] Comment on above: Performed By: #### C BC #### [facility] [address] [place] [address] Dr. Emilie Jeronimo Eosinophils/100 WBC (Bld) 1.9 % Normal 0.9-7.0 [facility] Comment on above: Performed By: #### C BC #### [facility] [address] [place] [address] Dr. Emilie Jeronimo Erythrocyte distribution width (RBC) [Ratio] 13.2 % Normal 11.0-15.0 [facility] Comment on above: Performed By: #### C BC #### [facility] [address] [place] [address] Dr. Emilie Jeronimo Hematocrit (Bld) [Volume fraction] 37.9 % Normal 36.0-48.0 [facility] Comment on above: Performed By: #### C BC #### [facility] [address] [place] [address] Dr. Emilie Jeronimo Hemoglobin (Bld) [Mass/Vol] 12.2 g/dL Normal 12.0-16.0 [facility] Comment on above: Performed By: #### C BC #### [facility] [facility] [address] [place] [address] Dr. Emilie Jeronimo IG # 0.03 10e3/ul Normal 0.00-0.03 [facility] Comment on above: Performed By: #### C BC #### [facility] [address] [place] [address] Dr. Emilie Jeronimo IG % 0.4 % Normal 0.0-0.5 [facility] Comment on above: Performed By: #### C BC #### [facility] [address] [place] [address] Dr. Emilie Jeronimo LYMPH # 2.3 103/ul Normal 1.2-3.8 [facility] Comment on above: Performed By: #### C BC #### [facility] [address] [place] [address] Dr. Emilie Jeronimo Lymphocytes/100 WBC (Bld) 29.0 % Normal 20.5-60.0 [facility] Comment on above: Performed By: #### C BC #### [facility] [address] [place] [address] Dr. Emilie Jeronimo MANUAL DIFF REQ NO Normal [facility] Comment on above: Performed By: #### C BC #### [facility] [address] [place] [address] Dr. Emilie Jeronimo MCH (RBC) [Entitic mass] 32.4 pg Normal 26.7-34.0 [facility] Comment on above: Performed By: #### C BC #### [facility] [address] [place] [address] Dr. Emilie Jeronimo MCHC (RBC) [Mass/Vol] 32.2 g/dL Normal 29.9-35.2 [facility] Comment on above: Performed By: #### C BC #### [facility] [address] [place] [address] Dr. Emilie Jeronimo MCV (RBC) [Entitic vol] 100.5 fL Critically high 81.0-99.0 [facility] Comment on above: Performed By: #### C BC #### [facility] [address] [place] [address] Dr. Emilie Jeronimo MONO # 0.6 103/ul Normal 0.3-0.8 [facility] Comment on above: Performed By: #### C BC #### [facility] [address] [place] [address] Dr. Emilie Jeronimo Monocytes/100 WBC (Bld) 7.9 % Normal 1.7-12.0 [facility] Comment on above: Performed By: #### C BC #### [facility] [address] [place] [address] Dr. Emilie Jeronimo NEUT # 4.7 103/ul Normal 1.4-6.5 [facility] Comment on above: Performed By: #### C BC #### [facility] [address] [place] [address] Dr. Emilie Jeronimo Neutrophils/100 WBC (Bld) 60.2 % Normal 43.0-75.0 [facility] Comment on above: Performed By: #### C BC #### [facility] [address] [place] [address] Dr. Emilie Jeronimo Platelet mean volume (Bld) [Entitic vol] 10.0 fL Normal 9.5-13.5 [facility] Comment on above: Performed By: #### C BC #### [facility] [address] [place] [address] Dr. Emilie Jeronimo PLT 234 103/ul Normal 150-450 [facility] Comment on above: Performed By: #### C BC #### [facility] [address] [place] [address] Dr. Emilie Jeronimo RBC 3.77 106/ul Critically low 4.20-5.40 [facility] Comment on above: Performed By: #### C BC #### [facility] [address] [place] [address] Dr. Emilie Jeronimo WBC 7.8 103/ul Normal 4.0-11.0 [facility] Comment on above: Performed By: #### C BC #### [facility] [address] [place] [address] Dr. Emilie Jeronimo FREE T4on 07-11-2022 Free T4 [Mass/Vol] 0.79 ng/dL Normal 0.76-1.46 [facility] Comment on above: Performed By: #### Jovany BYERS MG #### [facility] [address] [place] [address] Dr. Emilie Jeronimo PROF 14(COMP METB)on 022 Albumin [Mass/Vol] 3.7 g/dL Normal 3.4-5.0 [facility] Comment on above: Performed By: #### R ZEESHAN MG #### [facility] [address] [place] [address] Dr. Emilie Jeronimo Albumin/Globulin [Mass ratio] 1.2 {ratio} Normal [facility] Comment on above: Performed By: #### Jovany BYERS, MG #### [facility] [address] [place] [address] Dr. Emilie Jeronimo ALP [Catalytic activity/Vol] 53 U/L Normal 46-116 [facility] Comment on above: Performed By: #### R ENAL, MG #### [facility] [address] [address] [address] Emilie Jeronimo ALT [Catalytic activity/Vol] 26 U/L Normal 14-59 [facility] Comment on above: Performed By: #### R ENAL, MG #### [facility] [address] [address] [address] Emilie Jeronimo Anion gap [Moles/Vol] 8.9 mmol/L Normal [facility] Comment on above: Performed By: #### R ENAL, MG #### [facility] [address] [address] [address] Emilie Jeronimo AST [Catalytic activity/Vol] 18 U/L Normal 15-37 [facility] Comment on above: Performed By: #### R ENAL, MG #### [facility] [address] [place] [address] Dr. Emilie Jeronimo Bilirubin [Mass/Vol] 0.3 mg/dL Normal 0.2-1.0 [facility] Comment on above: Performed By: #### R ENAL, MG #### [facility] [address] [address] [address] Emilie Jeronimo Calcium [Mass/Vol] 9.1 mg/dL Normal 8.5-10.1 [facility] Comment on above: Performed By: #### R ENAL, MG #### [facility] [address] [address] [address] Emilie Jeronimo Chloride [Moles/Vol] 104 mmol/L Normal 98-107 [facility] Comment on above: Performed By: #### R ENAL, MG #### [facility] [address] [address] [address] Emilie Jeronimo CO2 [Moles/Vol] 34.8 mmol/L Critically high 21.0-32.0 [facility] Comment on above: Performed By: #### R ENAL, MG #### [facility] [address] [address] [address] Emilie Jeronimo Creatinine [Mass/Vol] 0.73 mg/dL Normal 0.55-1.02 [facility] Comment on above: Performed By: #### R ENAL, MG #### [facility] [address] [address] [address] Emilie Jeronimo EGFR-AF BRUNEIAN >60 Normal >=60 [facility] Comment on above: Performed By: #### R ENAL, MG #### [facility] [address] [address] [address] Emilie Jeronimo EGFR-NON AF BRUNEIAN >60 Normal >=60 [facility] Comment on above: Performed By: #### R ENAL, MG #### [facility] [address] [address] [address] Emilie Jeronimo Globulin (S) [Mass/Vol] 3.2 g/dL Normal [facility] Comment on above: Performed By: #### R ENAL, MG #### [facility] [address] [address] [address] Emilie Jeronimo Glucose [Mass/Vol] 109 mg/dL Critically high 74-106 [facility] Comment on above: Performed By: #### R ENAL, MG #### [facility] [address] [address] [address] Emilie Jeronimo Potassium [Moles/Vol] 3.7 mmol/L Normal 3.5-5.1 [facility] Comment on above: Performed By: #### R ENAL, MG #### [facility] [address] [address] [address] Emilie Jeronimo Protein [Mass/Vol] 6.9 g/dL Normal 6.4-8.2 [facility] Comment on above: Performed By: #### R ENAL, MG #### [facility] [address] [address] [address] Emilie Jeronimo Sodium [Moles/Vol] 144 mmol/L Normal 136-145 [facility] Comment on above: Performed By: #### R ENAL, MG #### [facility] [address] [address] [address] Emilie Jeronimo Urea nitrogen [Mass/Vol] 20.0 mg/dL Critically high 7.0-18.0 [facility] Comment on above: Performed By: #### R ENAL, MG #### [facility] [address] [place] [address] Dr. Emilie Jeronimo Urea nitrogen/Creatinine [Mass ratio] 27.4 mg/mg Normal [facility] Comment on above: Performed By: #### R ENAL, MG #### [facility] [address] [place] [address] Dr. Emilie Jeronimo TSHon 07-11-2022 TSH 3.616 uIU/mL Normal 0.358-3.740 [facility] Comment on above: Performed By: #### R ENAL, MG #### [facility] [address] [place] [address] Dr. Emilie Jeronimo VITAMIN B12on 07-11-2022 Cobalamin (Vitamin B12) [Mass/Vol] 321.0 pg/mL Normal 193.0-986.0 [facility] Comment on above: Performed By: #### R ENAL, MG #### [facility] [address] [place] [address] Dr. Emilie Jeronimo Tobacco Screening.on 022 Fall risk assessment a) No falls within the last year [facility] [address] DO Work Phone: Tobacco use status CP b) No [facility] DO Work Phone: CBC AUTO DIFFon 06-15-2022 BASO # 0.0 103/ul Normal 0.0-0.1 [facility] Comment on above: Performed By: #### C BC #### [facility] [address] [place] [address] Dr. Emilie Jeronimo Basophils/100 WBC (Bld) 0.4 % Normal 0.2-2.0 [facility] Comment on above: Performed By: #### C BC #### [facility] [address] [place] [address] Dr. Emilie Jeronimo EO # 0.2 103/ul Normal 0.0-0.7 [facility] Comment on above: Performed By: #### C BC #### [facility] [address] [place] [address] Dr. Emilie Jeronimo Eosinophils/100 WBC (Bld) 2.4 % Normal 0.9-7.0 [facility] Comment on above: Performed By: #### C BC #### [facility] [address] [place] [address] Dr. Emilie Jeronimo Erythrocyte distribution width (RBC) [Ratio] 12.8 % Normal 11.0-15.0 [facility] Comment on above: Performed By: #### C BC #### [facility] [address] [place] [address] Dr. Emilie Jeronimo Hematocrit (Bld) [Volume fraction] 38.3 % Normal 36.0-48.0 [facility] Comment on above: Performed By: #### C BC #### [facility] [address] [place] [address] Dr. Emilie Jeronimo Hemoglobin (Bld) [Mass/Vol] 12.5 g/dL Normal 12.0-16.0 [facility] Comment on above: Performed By: #### C BC #### [facility] [address] [place] [address] Dr. Emilie Jeronimo IG # 0.04 10e3/ul Critically high 0.00-0.[address] [facility] Comment on above: Performed By: #### C BC #### [facility] [address] [place] [address] Dr. Emilie Jeronimo IG % 0.6 % Critically high 0.0-0.5 [facility] Comment on above: Performed By: #### C BC #### [facility] [address] [place] [address] Dr. Emilie Jeronimo LYMPH # 1.9 103/ul Normal 1.2-3.8 [facility] Comment on above: Performed By: #### C BC #### [facility] [address] [place] [address] Dr. Emilie Jeronimo Lymphocytes/100 WBC (Bld) 27.9 % Normal 20.5-60.0 [facility] Comment on above: Performed By: #### C BC #### [facility] [address] [place] [address] Dr. Emilie Jeronimo MANUAL DIFF REQ NO Normal [facility] Comment on above: Performed By: #### C BC #### [facility] [address] [place] [address] Dr. Emilie Jeronimo MCH (RBC) [Entitic mass] 32.2 pg Normal 26.7-34.0 [facility] Comment on above: Performed By: #### C BC #### [facility] [address] [place] [address] Dr. Emilie Jeronimo MCHC (RBC) [Mass/Vol] 32.6 g/dL Normal 29.9-35.2 [facility] Comment on above: Performed By: #### C BC #### [facility] [address] [place] [address] Dr. Emilie Jeronimo MCV (RBC) [Entitic vol] 98.7 fL Normal 81.0-99.0 [facility] Comment on above: Performed By: #### C BC #### [facility] [address] [place] [address] Dr. Emilie Jeronimo MONO # 0.5 103/ul Normal 0.3-0.8 [facility] Comment on above: Performed By: #### C BC #### [facility] [address] [place] [address] Dr. Emilie Jeronimo Monocytes/100 WBC (Bld) 7.3 % Normal 1.7-12.0 [facility] Comment on above: Performed By: #### C BC #### [facility] [address] [place] [address] Dr. Emilie Jeronimo NEUT # 4.1 103/ul Normal 1.4-6.5 [facility] Comment on above: Performed By: #### C BC #### [facility] [address] [place] [address] Dr. Emilie Jeronimo Neutrophils/100 WBC (Bld) 61.4 % Normal 43.0-75.0 [facility] Comment on above: Performed By: #### C BC #### [facility] [address] [address] [address] Emilie Jeronimo Platelet mean volume (Bld) [Entitic vol] 9.2 fL Critically low 9.5-13.5 [facility] Comment on above: Performed By: #### C BC #### [facility] [address] [address] [address] Emilie Jeronimo PLT 201 103/ul Normal 150-450 [facility] Comment on above: Performed By: #### C BC #### [facility] [address] [address] [address] Emilie Jeronimo RBC 3.88 106/ul Critically low 4.20-5.40 [facility] Comment on above: Performed By: #### C BC #### [facility] [address] [address] [address] Emilie Jeronimo WBC 6.7 103/ul Normal 4.0-11.0 [facility] Comment on above: Performed By: #### C BC #### [facility] [address] [place] [address] Dr. Emilie Jeronimo LIPID PROFILEon 06-15-2022 CHOL-HDL RATIO NORM SEE BELOW Normal [facility] Comment on above: Result Comment: 3.3 - 4.4 LOW RISK 4.4 - 7.1 AVERAGE RISK 7.1 - 11.0 MODERATE RISK >11.0 HIGH RISK Performed By: #### A ST, ALT, LIPID, BMP #### [facility] [address] [address] [address] Emilie Jeronimo Cholesterol [Mass/Vol] 124 mg/dL Normal <=200 [facility] Comment on above: Performed By: #### A ST, ALT, LIPID, BMP #### [facility] [address] [address] [address] Emilie Jeronimo Cholesterol in HDL [Mass/Vol] 81 mg/dL Critically high 40-60 [facility] Comment on above: Performed By: #### A ST, ALT, LIPID, BMP #### [facility] [address] [address] [address] Emilie Jeronimo Cholesterol in LDL [Mass/Vol] 27.6 mg/dL Normal [facility] Comment on above: Performed By: #### A ST, ALT, LIPID, BMP #### [facility] [address] [address] [address] Emilie Jeronimo Cholesterol.total/C holesterol in HDL [Mass ratio] 1.5 {ratio} Normal [facility] Comment on above: Performed By: #### A ST, ALT, LIPID, BMP #### [facility] [address] [address] [address] Emilie Jeronimo HDL NORMAL > or = 60 mg/dl - LO W CARDIOVASCULAR RISK <40 mg/dl - HIGH CARDIOVASCULAR RISK Normal [facility] Comment on above: Performed By: #### A ST, ALT, LIPID, BMP #### [facility] [address] [place] [address] Dr. Emilie Jeronimo LDL CALC NORMAL SEE BELOW Normal [facility] Comment on above: Result Comment: <100 mg/dl OPTIMAL 100 - 129 mg/dl NEAR OR ABOVE OPTIMAL 130 - 159 mg/dl BORDERLINE HIGH 160 - 189 mg/dl HIGH >190 mg/dl VERY HIGH Performed By: #### A ST, ALT, LIPID, BMP #### [facility] [address] [address] [address] Emilie Jeronimo Triglyceride [Mass/Vol] 77 mg/dL Normal <=150 [facility] Comment on above: Performed By: #### A ST, ALT, LIPID, BMP #### [facility] [address] [address] [address] Emilie Jeronimo VLDL CALC 15.4 mg/dL Normal [facility] Comment on above: Performed By: #### A ST, ALT, LIPID, BMP #### [facility] [address] [address] [address] Emilie Jeronimo PROF CHEM 8 (BAS METB)on Anion gap [Moles/Vol] 12.7 mmol/L Normal [facility] Comment on above: Performed By: #### A ST, ALT, LIPID, BMP #### [facility] [address] [address] [address] Emilie Jeronimo Calcium [Mass/Vol] 8.5 mg/dL Normal 8.5-10.1 [facility] Comment on above: Performed By: #### A ST, ALT, LIPID, BMP #### [facility] [address] [address] [address] Emilie Jeronimo Chloride [Moles/Vol] 102 mmol/L Normal 98-107 [facility] Comment on above: Performed By: #### A ST, ALT, LIPID, BMP #### [facility] [address] [address] [address] Emilie Jeronimo CO2 [Moles/Vol] 30.1 mmol/L Normal 21.0-32.0 [facility] Comment on above: Performed By: #### A ST, ALT, LIPID, BMP #### [facility] [address] [place] [address] Dr. Emilie Jeronimo Creatinine [Mass/Vol] 0.76 mg/dL Normal 0.55-1.02 [facility] Comment on above: Performed By: #### A ST, ALT, LIPID, BMP #### [facility] [address] [place] [address] Dr. Emilie Jeronimo EGFR-AF BRUNEIAN >60 Normal >=60 [facility] Comment on above: Performed By: #### A ST, ALT, LIPID, BMP #### [facility] [address] [place] [address] Dr. Emilie Jeronimo EGFR-NON AF BRUNEIAN >60 Normal >=60 [facility] Comment on above: Performed By: #### A ST, ALT, LIPID, BMP #### [facility] [address] [place] [address] Dr. Emilie Jeronimo Glucose [Mass/Vol] 97 mg/dL Normal 74-106 [facility] Comment on above: Performed By: #### A ST, ALT, LIPID, BMP #### [facility] [address] [place] [address] Dr. Emilie Jeronimo Potassium [Moles/Vol] 3.8 mmol/L Normal 3.5-5.1 [facility] Comment on above: Performed By: #### A ST, ALT, LIPID, BMP #### [facility] [address] [address] [address] Emilie Jeronimo Sodium [Moles/Vol] 141 mmol/L Normal 136-145 [facility] Comment on above: Performed By: #### A ST, ALT, LIPID, BMP #### [facility] [address] [address] [address] Emilie Jeronimo Urea nitrogen [Mass/Vol] 21.0 mg/dL Critically high 7.0-18.0 [facility] Comment on above: Performed By: #### A ST, ALT, LIPID, BMP #### [facility] [address] [address] [address] Emilie Jeronimo Urea nitrogen/Creatinine [Mass ratio] 27.6 mg/mg Normal [facility] Comment on above: Performed By: #### A ST, ALT, LIPID, BMP #### [facility] [address] [place] [address] Dr. Emilie Yoder 06-15-2022 AST [Catalytic activity/Vol] 22 U/L Normal 15-37 [facility] Comment on above: Performed By: #### A ST, ALT, LIPID, BMP #### [facility] [address] [place] [address] Dr. Emilie Mcarthur 06-15-2022 ALT [Catalytic activity/Vol] 21 U/L Normal 14-59 [facility] Comment on above: Performed By: #### A ST, ALT, LIPID, BMP #### [facility] [address] [place] [address] ABD/PELVIS WO CONon [...] JAYLEEN GREER Date: 2022-04-21 10:40 Normal [facility] PTH INTACTon 03-24-2022 PTH, Intact 4 pg/mL Critically low 15-65 [facility] Comment on above: Performed By: #### P THINT #### [facility] [address] [place] [address] Dr. Emilie Jeronimo CBC AUTO DIFFon 03-23-2022 BASO # 0.0 103/ul Normal 0.0-0.1 [facility] Comment on above: Performed By: #### R ZEESHAN MG #### [facility] [address] [place] [address] Dr. Emilie Jeronimo Basophils/100 WBC (Bld) 0.5 % Normal 0.2-2.0 [facility] Comment on above: Performed By: #### R ZEESHAN MG #### [facility] [address] [place] [address] Dr. Emilie Jeronimo EO # 0.1 103/ul Normal 0.0-0.7 [facility] Comment on above: Performed By: #### Jovany BYERS MG #### [facility] [address] [place] [address] Dr. Emilie Jeronimo Eosinophils/100 WBC (Bld) 1.3 % Normal 0.9-7.0 [facility] Comment on above: Performed By: #### R ENMICHELLE, MG #### [facility] [address] [place] [address] Dr. Emilie Jeronimo Erythrocyte distribution width (RBC) [Ratio] 13.0 % Normal 11.0-15.0 [facility] Comment on above: Performed By: #### R ENMICHELLE, MG #### [facility] [address] [place] [address] Dr. Emilie Jeronimo Hematocrit (Bld) [Volume fraction] 34.2 % Critically low 36.0-48.0 [facility] Comment on above: Performed By: #### R ENMICHELLE, MG #### [facility] [address] [place] [address] Dr. Emilie Jeronimo Hemoglobin (Bld) [Mass/Vol] 11.3 g/dL Critically low 12.0-16.0 [facility] Comment on above: Performed By: #### R ENAL, MG #### [facility] [address] [place] [address] Dr. Emilie Jeronimo IG # 0.02 10e3/ul Normal 0.00-0.03 [facility] Comment on above: Performed By: #### R ENMICHELLE, MG #### [facility] [address] [place] [address] Dr. Emilie Jeronimo IG % 0.3 % Normal 0.0-0.5 [facility] Comment on above: Performed By: #### R ENAL, MG #### [facility] [address] [place] [address] Dr. Emilie Jeronimo LYMPH # 1.4 103/ul Normal 1.2-3.8 [facility] Comment on above: Performed By: #### R ENAL, MG #### [facility] [address] [place] [address] Dr. Emilie Jeronimo Lymphocytes/100 WBC (Bld) 24.0 % Normal 20.5-60.0 [facility] Comment on above: Performed By: #### R ENAL, MG #### [facility] [address] [place] [address] Dr. Emilie Jeronimo MANUAL DIFF REQ NO Normal [facility] Comment on above: Performed By: #### R ENAL, MG #### [facility] [address] [place] [address] Dr. Emilie Jeronimo MCH (RBC) [Entitic mass] 32.5 pg Normal 26.7-34.0 [facility] Comment on above: Performed By: #### R ENAL, MG #### [facility] [address] [place] [address] Dr. Emilie Jeronimo MCHC (RBC) [Mass/Vol] 33.0 g/dL Normal 29.9-35.2 [facility] Comment on above: Performed By: #### R ENAL, MG #### [facility] [address] [place] [address] Dr. Emilie Jeronimo MCV (RBC) [Entitic vol] 98.3 fL Normal 81.0-99.0 [facility] Comment on above: Performed By: #### R ENAL, MG #### [facility] [address] [place] [address] Dr. Emilie Jeronimo MONO # 0.5 103/ul Normal 0.3-0.8 [facility] Comment on above: Performed By: #### R ENAL, MG #### [facility] [address] [place] [address] Dr. Emilie Jeronimo Monocytes/100 WBC (Bld) 8.7 % Normal 1.7-12.0 [facility] Comment on above: Performed By: #### R ENAL, MG #### [facility] [address] [place] [address] Dr. Emilie Jeronimo NEUT # 3.9 103/ul Normal 1.4-6.5 [facility] Comment on above: Performed By: #### R ENAL, MG #### [facility] [address] [place] [address] Dr. Emilie Jeronimo Neutrophils/100 WBC (Bld) 65.2 % Normal 43.0-75.0 [facility] Comment on above: Performed By: #### R ENAL, MG #### [facility] [address] [address] [address] Emilie Jeronimo Platelet mean volume (Bld) [Entitic vol] 10.0 fL Normal 9.5-13.5 [facility] Comment on above: Performed By: #### R ENAL, MG #### [facility] [address] [address] [address] Emilie Jeronimo PLT 197 103/ul Normal 150-450 [facility] Comment on above: Performed By: #### R ENAL, MG #### [facility] [address] [place] [address] Dr. Emilie Jeronimo RBC 3.48 106/ul Critically low 4.20-5.40 [facility] Comment on above: Performed By: #### R ENAL, MG #### [facility] [address] [place] [address] Dr. Emilie Jeronimo WBC 6.0 103/ul Normal 4.0-11.0 [facility] Comment on above: Performed By: #### R ENAL, MG #### [facility] [address] [place] [address] Dr. Emilie Jeronimo PROF CHEM 8 (BAS METB)on Anion gap [Moles/Vol] 10.3 mmol/L Normal [facility] Comment on above: Performed By: #### R ENAL, MG #### [facility] [address] [place] [address] Dr. Emilie Jeronimo Calcium [Mass/Vol] 6.1 mg/dL Critically low 8.5-10.1 [facility] Comment on above: Performed By: #### R ENAL, MG #### [facility] [address] [place] [address] Dr. Emilie Jeronimo Chloride [Moles/Vol] 103 mmol/L Normal 98-107 [facility] Comment on above: Performed By: #### R ENAL, MG #### [facility] [address] [place] [address] Dr. Emilie Jeronimo CO2 [Moles/Vol] 31.8 mmol/L Normal 21.0-32.0 [facility] Comment on above: Performed By: #### R ENAL, MG #### [facility] [address] [place] [address] Dr. Emilie Jeronimo Creatinine [Mass/Vol] 0.70 mg/dL Normal 0.55-1.02 [facility] Comment on above: Performed By: #### R ENAL, MG #### [facility] [address] [address] [address] Emilie Jeronimo EGFR-AF BRUNEIAN >60 Normal >=60 [facility] Comment on above: Performed By: #### R ENAL, MG #### [facility] [address] [place] [address] Dr. Emilie Jeronimo EGFR-NON AF BRUNEIAN >60 Normal >=60 [facility] Comment on above: Performed By: #### R ENAL, MG #### [facility] [address] [place] [address] Dr. Emilie Jeronimo Glucose [Mass/Vol] 120 mg/dL Critically high 74-106 [facility] Comment on above: Performed By: #### R ENAL, MG #### [facility] [address] [place] [address] Dr. Emilie Jeronimo Potassium [Moles/Vol] 3.1 mmol/L Critically low 3.5-5.1 [facility] Comment on above: Performed By: #### R ENAL, MG #### [facility] [address] [address] [address] Emilie Jeronimo Sodium [Moles/Vol] 142 mmol/L Normal 136-145 [facility] Comment on above: Performed By: #### R ENAL, MG #### [facility] [address] [place] [address] Dr. Emilie Jeronimo Urea nitrogen [Mass/Vol] 21.0 mg/dL Critically high 7.0-18.0 [facility] Comment on above: Performed By: #### R ENAL, MG #### [facility] [address] [place] [address] Dr. Emilie Jeronimo Urea nitrogen/Creatinine [Mass ratio] 30.0 mg/mg Normal [facility] Comment on above: Performed By: #### R ENAL, MG #### [facility] [address] [place] [address] Dr. Emilie Jeronimo MAGNESIUMon 03-22-2022 Magnesium [Mass/Vol] 1.5 mg/dL Critically low 1.8-2.4 [facility] Comment on above: Performed By: #### R ENAL, MG #### [facility] [address] [place] [address] Dr. Emilie Jeronimo RENAL FUNCTION PANELon 03-22 Albumin [Mass/Vol] 3.6 g/dL Normal 3.4-5.0 [facility] Comment on above: Performed By: #### R ENAL, MG #### [facility] [address] [place] [address] Dr. Emilie Jeronimo Calcium [Mass/Vol] 6.4 mg/dL Critically low 8.5-10.1 [facility] Comment on above: Performed By: #### R ENAL, MG #### [facility] [address] [place] [address] Dr. Emilie Jeronimo Chloride [Moles/Vol] 101 mmol/L Normal 98-107 [facility] Comment on above: Performed By: #### R ENAL, MG #### [facility] [address] [place] [address] Dr. Emilie Jeronimo CO2 [Moles/Vol] 31.4 mmol/L Normal 21.0-32.0 [facility] Comment on above: Performed By: #### R ENAL, MG #### [facility] [address] [place] [address] Dr. Emilie Jeronimo Creatinine [Mass/Vol] 0.77 mg/dL Normal 0.55-1.02 [facility] Comment on above: Performed By: #### R ENAL, MG #### [facility] [address] [place] [address] Dr. Emilie Jeronimo EGFR-AF BRUNEIAN >60 Normal >=60 [facility] Comment on above: Performed By: #### R ENAL, MG #### [facility] [address] [place] [address] Dr. Emilie Jeronimo EGFR-NON AF BRUNEIAN >60 Normal >=60 [facility] Comment on above: Performed By: #### R ENAL, MG #### [facility] [address] [address] [address] Emilie Jeronimo Glucose [Mass/Vol] 150 mg/dL Critically high 74-106 [facility] Comment on above: Performed By: #### R ENAL, MG #### [facility] [address] [address] [address] Emilie Jeronimo Phosphate [Mass/Vol] 4.8 mg/dL Critically high 2.6-4.7 [facility] Comment on above: Performed By: #### R ENAL, MG #### [facility] [address] [place] [address] Dr. Emilie Jeronimo Potassium [Moles/Vol] 2.7 mmol/L Critically low 3.5-5.1 [facility] Comment on above: Result Comment: TEST REPEATED CRITICAL VALUE VERIFIED Performed By: #### R ENAL, MG #### [facility] [address] [place] [address] Dr. Emilie Jeronimo Sodium [Moles/Vol] 142 mmol/L Normal 136-145 [facility] Comment on above: Performed By: #### R ENAL, MG #### [facility] [address] [place] [address] Dr. Emilie Jeronimo Urea nitrogen [Mass/Vol] 29.0 mg/dL Critically high 7.0-18.0 [facility] Comment on above: Performed By: #### R ENAL, MG #### [facility] [address] [place] [address] Dr. Emilie Jeronimo VITAMIN D 25 OHon 03-22-2022 VIT D 25-OH 32.5 ng/mL Normal [facility] Comment on above: Performed By: #### V ITAD #### [facility] [address] [place] [address] Dr. Emilie Jeronimo VIT D RANGES SEE BELOW Normal [facility] Comment on above: Result Comment: <20 ng/mL Vit D deficient 20 - <30 ng/mL Vit D insufficient 30 - 100 ng/mL Vit D sufficient >100 ng/mL Potential Toxicity Performed By: #### V ITAD #### [facility] [address] [address] [address] Emilie Jeronimo Tobacco Screening.on 022 Adult depression screening assessment No [facility] DO Work Phone: Fall risk assessment a) No falls within the last year [facility] DO Work Phone: Tobacco use status CPHS b) No [facility] DO Work Phone: Automated erythrocytes count in urine sediment (number/area)on 02-17-2021 RBC Auto (Urine sed) [#/Area] 0-1 [HPF] [facility] Automated leukocytes count i n urine sediment (number/area)on 02-17-2021 WBC Auto (Urine sed) [#/Area] 20-49 [HPF] [facility] Basophils Auto (Bld) [#/Vol] on 02-17-2021 Basophils (Bld) [#/Vol] 0.1 10*3/uL 0.0-0.2 [facility] Basophils/100 WBC Auto (Bld) on 02-17-2021 Basophils/100 WBC (Bld) 0.8 % [facility] Bilirubin Test strip Ql (U)o n 02-17-2021 Bilirubin Ql (U) Negative Negative [facility] Blood hemoglobin measurement (mass/volume)on 02-17-2021 Hemoglobin (Bld) [Mass/Vol] 12.6 g/dL 11.8-15.4 [facility] Blood leukocytes automated c ount (number/volume)on 02-17-2021 WBC (Bld) [#/Vol] 7.3 10*3/uL 4.5-11.0 [facility] Color Auto (U)on 02-17-2021 Color (U) Yellow Yellow [facility] Creatinine and Glomerular fi ltration rate.predicted panel (S/P/Bld)on 02-17-2021 Creatinine [Mass/Vol] 0.78 mg/dL 0.44-1.03 [facility] Eosinophils Auto (Bld) [#/Vo l]on 02-17-2021 Eosinophils (Bld) [#/Vol] 0.2 10*3/uL 0.0-0.45 [facility] Eosinophils/100 WBC Auto (Bl d)on 02-17-2021 Eosinophils/100 WBC (Bld) 2.2 % [facility] Erythrocyte distribution wid th Auto (RBC) [Ratio]on 02-17-2021 Erythrocyte distribution width (RBC) [Ratio] 14.5 % 11.9-15.3 [facility] Estimated glomerular filtrat ion rate (GFR) non- Americanon 02-17-2021 GFR/1.73 sq M.predicted among non-blacks MDRD (S/P/Bld) [Vol rate/Area] > 60 mL/Min [facility] Hematocrit Auto (Bld) [Volum e fraction]on 02-17-2021 Hematocrit (Bld) [Volume fraction] 37.5 % 34.0-46.4 [facility] Ketones Auto test strip (U) [Mass/Vol]on 02-17-2021 Ketones (U) [Mass/Vol] Negative Negative [facility] Laboratory - Hematology and Cell countson 02-17-2021 Nucleated RBC/100 WBC (Bld) [Ratio] 0.0 % 0-0.5 [facility] Laboratory - Urinalysison Hyaline casts LM Ql (Urine sed) 0-8 [LPF] [facility] Lymphocytes Auto (Bld) [#/Vo l]on 02-17-2021 Lymphocytes (Bld) [#/Vol] 1.6 10*3/uL 1.00-4.8 [facility] Lymphocytes/100 WBC Auto (Bl d)on 02-17-2021 Lymphocytes/100 WBC (Bld) 21.5 % [facility] MCH Auto (RBC) [Entitic mass ]on 02-17-2021 MCH (RBC) [Entitic mass] 32.4 pg 24.7-34.3 [facility] MCHC Auto (RBC) [Mass/Vol]on 02-17-2021 MCHC (RBC) [Mass/Vol] 33.6 g/dL 32.0-35.0 [facility] MCV Auto (RBC) [Entitic vol] on 02-17-2021 MCV (RBC) [Entitic vol] 96.3 fL 80-100 [facility] Monocytes Auto (Bld) [#/Vol] on 02-17-2021 Monocytes (Bld) [#/Vol] 0.7 10*3/uL 0.0-0.8 [facility] Monocytes/100 WBC Auto (Bld) on 02-17-2021 Monocytes/100 WBC (Bld) 9.6 % [facility] Neutrophils Auto (Bld) [#/Vo l]on 02-17-2021 Neutrophils (Bld) [#/Vol] 4.8 10*3/uL 1.8-7.7 [facility] Neutrophils/100 WBC Auto (Bl d)on 02-17-2021 Neutrophils/100 WBC (Bld) 65.9 % [facility] Nitrite Test strip Ql (U)on 02-17-2021 Nitrite Ql (U) Negative Negative [facility] No Panel Informationon 02-17 Estimated GFR () > 60 mL/Min [facility] Comment on above: GFR estimated refere nce range: According to KDOQI guidelines, <60 ml/min/1.73m2 is sufficient to diagnose a patient with chronic kidney disease. Pharmacy Creatinine Clearance (Chem N/A [facility] Platelet mean volume Auto (B ld) [Entitic vol]on 02-17-2021 Platelet mean volume (Bld) [Entitic vol] 7.6 fL 6.3-10.7 [facility] Platelets Auto (Bld) [#/Vol] on 02-17-2021 Platelets (Bld) [#/Vol] 206 10*3/uL 150-450 [facility] Protein Auto test strip (U) [Mass/Vol]on 02-17-2021 Protein (U) [Mass/Vol] Negative Negative [facility] RBC Auto (Bld) [#/Vol]on RBC (Bld) [#/Vol] 3.89 10*6/uL 3.60-5.00 [facility] Serum or plasma calcium twan urement (mass/volume)on 02-17-2021 Calcium [Mass/Vol] 7.6 mg/dL 8.2-10.2 [facility] Serum or plasma chloride jewel surement (moles/volume)on 02-17-2021 Chloride [Moles/Vol] 100 mmol/L 95-114 [facility] Serum or plasma glucose twan urement (mass/volume)on 02-17-2021 Glucose [Mass/Vol] 97 mg/dL 70-100 [facility] Comment on above: ADA recommended refe rence rangeRandom Glucose Reference Range is dependent on time and content of last meal. Glucose of more than 200 mg/dL in a nonstressed, ambulatory subject supports the diagnosis of Diabetes Mellitus. Serum or plasma potassium me asurement (moles/volume)on 02-17-2021 Potassium [Moles/Vol] 3.8 mmol/L 3.5-5.1 [facility] Serum or plasma sodium measu rement (moles/volume)on 02-17-2021 Sodium [Moles/Vol] 139 mmol/L 136-146 [facility] Serum or plasma total carbon dioxide measurement (moles/volume)on 02-17-2021 CO2 [Moles/Vol] 28.3 mmol/L 22.0-30.0 [facility] Serum or plasma urea nitroge n measurement (mass/volume)on 02-17-2021 Urea nitrogen [Mass/Vol] 22 mg/dL 9-23 [facility] Specific gravity Auto test s trip (U) [Rel density]on 02-17-2021 Specific gravity (U) [Rel density] 1.021 1.001-1.030 [facility] Squamous epithelial cells de tection in urine sediment by light microscopyon 02-17-2021 Epithelial cells.squamous LM Ql (Urine sed) 0-1 [HPF] [facility] Urine bacteria detection by automated methodon 02-17-2021 Bacteria Auto Ql (U) 2+ None Seen [facility] Urine clarity by refractomet ry automatedon 04-21-2021 Clarity Refractometry automated (U) Clear Clear [facility] Urine culture routineon 01-29 Bacteria identified Cx Nom (U) Aerococcus urinae [facility] Urine glucose measurement by automated test strip (mass/volume)on 02-17-2021 Glucose Auto test strip (U) [Mass/Vol] Normal mg/dL Normal [facility] Urine hemoglobin detection b y automated test stripon 02-17-2021 Hemoglobin Auto test strip Ql (U) Negative Negative [facility] Urine leukocyte esterase det ection by automated test stripon 02-17-2021 Leukocyte esterase Auto test strip Ql (U) 3+ Negative [facility] Urobilinogen Auto test strip (U) [Mass/Vol]on 02-17-2021 Urobilinogen (U) [Mass/Vol] Normal mg/dL Normal [facility] Yeast detection in urine sed iment by light microscopyon 02-17-2021 Yeast LM Ql (Urine sed) None seen [HPF] None Seen [facility] pH Auto test strip (U)on pH (U) 5.0 [pH] 5.0-9.0 [facility] Cesar 03-12-2020 ALT [Catalytic activity/Vol] 16 U/L Normal 7 - 45 [facility] Comment on above: Result Comment: Josee ents treated with Sulfasalazine may generate falsely decreased results for ALT. Performed By: #### A LT #### [address] [address] Jamari 03-12-2020 AST [Catalytic activity/Vol] 22 U/L Normal 9 - 39 [facility] Comment on above: Performed By: #### A ST #### [address] [address] CREATININEon 03-12-2020 Creatinine [Mass/Vol] mg/dL Normal >60 [facility] Comment on above: Result Comment: CALC ULATIONS OF ESTIMATED GFR ARE PERFORMED USING THE MDRD STUDY EQUATION FOR THE IDMS-TRACEABLE CREATININE METHODS. CLIN CHEM 2007;53:766-72 Performed By: #### C REAT #### [address] [address] Creatinine [Mass/Vol] 0.84 mg/dL Normal 0.50 - 1.05 [facility] Comment on above: Performed By: #### C REAT #### [address] [address] ELECTROLYTE PANELon 03-12-20 20 Anion gap [Moles/Vol] 15 mmol/L Normal 10 - 20 [facility] Comment on above: Performed By: #### E LECT #### [address] [address] Chloride [Moles/Vol] 102 mmol/L Normal 98 - 107 [facility] Comment on above: Performed By: #### E LECT #### [address] [address] HCO3 (Bld) [Moles/Vol] 30 mmol/L Normal 21 - 32 [facility] Comment on above: Performed By: #### E LECT #### [address] [address] Potassium [Moles/Vol] 4.0 mmol/L Normal 3.5 - 5.3 [facility] Comment on above: Performed By: #### E LECT #### [address] [address] Sodium [Moles/Vol] 143 mmol/L Normal 136 - 145 [facility] Comment on above: Performed By: #### E LECT #### [address] [address] LIPID PANEL (CORONARY RISK 2 )on 03-12-2020 Cholesterol [Mass/Vol] 99 mg/dL Normal 0 - 199 [facility] Comment on above: Result Comment: . AGE [...] dosing. Performed By: #### L IPID #### [address] [address] Cholesterol in HDL [Mass/Vol] 60.0 mg/dL Normal [facility] Comment on above: Result Comment: . AGE VERY LOW LOW NORMAL HIGH 0-19 Y < 35 < 40 40-45 ---- 20-24 Y ---- < 40 >45 ---- >24 Y ---- < 40 40-60 >60 . Performed By: #### L IPID #### [address] [address] Cholesterol in LDL [Mass/Vol] 23 mg/dL Normal 0 - 99 [facility] Comment on above: Result Comment: . NEAR BORD AGE DESIRABLE OPTIMAL HIGH HIGH VERY HIGH 0-19 Y 0 - 109 --- 110-129 >/= 130 ---- 20-24 Y 0 - 119 --- 120-159 >/= 160 ---- >24 Y 0 - 99 100-129 130-159 160-189 >/=190 . Performed By: #### L IPID #### [address] [address] Cholesterol in VLDL [Mass/Vol] 16 mg/dL Normal 0 - 40 [facility] Comment on above: Performed By: #### L IPID #### [address] [address] Cholesterol.total/C holesterol in HDL [Mass ratio] 1.7 {ratio} Normal [facility] Comment on above: Result Comment: REF VALUES DESIRABLE < 3.4 HIGH RISK > 5.0 Performed By: #### L IPID #### [address] [address] Triglyceride [Mass/Vol] 79 mg/dL Normal 0 - 149 [facility] Comment on above: Result Comment: . AGE [...] dosing. Performed By: #### L IPID #### [address] [address] PARATHYROID HORMONE,INTACTon 03-12-2020 PARATHYROID HORMONE,INTACT < 6.3 Low 18.5 - 88.0 [facility] Comment on above: Result Comment: Josee ents receiving more than 5 mg/day of biotin may have interference in test results. A sample should be taken no sooner than eight hours after previous dose. Contact the testing laboratory for additional information. Performed By: #### P TH #### [address] [address] RENAL FUNCTION PANELon 03-12 Albumin [Mass/Vol] 4.3 g/dL Normal 3.4 - 5.0 [facility] Comment on above: Performed By: #### T SH2 #### [address] [address] Anion gap [Moles/Vol] 16 mmol/L Normal 10 - 20 [facility] Comment on above: Performed By: #### T SH2 #### [address] [address] Calcium [Mass/Vol] 8.2 mg/dL Low 8.6 - 10.3 [facility] Comment on above: Performed By: #### T SH2 #### [address] [address] Chloride [Moles/Vol] 102 mmol/L Normal 98 - 107 [facility] Comment on above: Performed By: #### T SH2 #### [address] [address] Creatinine [Mass/Vol] 0.82 mg/dL Normal 0.50 - 1.05 [facility] Comment on above: Performed By: #### T SH2 #### [address] [address] GFR- AM. >60 Normal >60 [facility] Comment on above: Result Comment: CALC ULATIONS OF ESTIMATED GFR ARE PERFORMED USING THE MDRD STUDY EQUATION FOR THE IDMS-TRACEABLE CREATININE METHODS. CLIN CHEM 2007;53:766-72 Performed By: #### T SH2 #### [address] [address] GFR-NON AM. >60 Normal >60 [facility] Comment on above: Performed By: #### T SH2 #### [address] [address] Glucose [Mass/Vol] 97 mg/dL Normal 74 - 99 [facility] Comment on above: Performed By: #### T SH2 #### [address] [address] HCO3 (Bld) [Moles/Vol] 29 mmol/L Normal 21 - 32 [facility] Comment on above: Performed By: #### T SH2 #### [address] [address] Phosphate [Mass/Vol] 5.3 mg/dL High 2.5 - 4.9 [facility] Comment on above: Result Comment: The performance characteristics of phosphorus testing in heparinized plasma have been validated by the individual laboratory site where testing is performed. Testing on heparinized plasma is not approved by the FDA; however, such approval is not necessary. Performed By: #### T SH2 #### [address] [address] Potassium [Moles/Vol] 3.7 mmol/L Normal 3.5 - 5.3 [facility] Comment on above: Performed By: #### T SH2 #### [address] [address] Sodium [Moles/Vol] 143 mmol/L Normal 136 - 145 [facility] Comment on above: Performed By: #### T SH2 #### [address] [address] Urea nitrogen [Mass/Vol] 23 mg/dL Normal 6 - 23 [facility] Comment on above: Performed By: #### T SH2 #### [address] [address] UREA NITROGENon 03-12-2020 Urea nitrogen [Mass/Vol] 23 mg/dL Normal 6 - 23 [facility] Comment on above: Performed By: #### U TARAS #### [address] [address] VITAMIN D, 25-HYDROXYon 02-27 VITAMIN D, 25-HYDROXY 43 ng/mL Normal [facility] Comment on above: Result Comment: . DEFICIENCY: < 20 NG/ML INSUFFICIENCY: 20-29 NG/ML SUFFICIENCY: 30-100 NG/ML THIS ASSAY ACCURATELY QUANTIFIES THE SUM OF VITAMIN D3, 25-HYDROXY AND VIT D2,25-HYDROXY. Performed By: #### T SH2 #### [address] [address] THYROXINEon 09-17-2019 T4 [Mass/Vol] 8.0 ug/dL Normal 4.5 - 11.1 [facility] Comment on above: Performed By: #### T 4 #### [address] [address] THYROXINE,FREEon 09-17-2019 THYROXINE,FREE 0.70 ng/dL Normal 0.61 - 1.27 [facility] Comment on above: Result Comment: Thyr oxine Free testing is performed using different testing methodology at [facility] than at other [facility]. Direct result comparisons should only be made within the same method. Patients receiving more than 5 mg/day of biotin may have interference in test results. A sample should be taken no sooner than eight hours after previous dose. Performed By: #### T 4FRE #### [address] [address] TSHon 09-17-2019 TSH Qn 6.25 m[IU]/L High 0.44 - 3.98 [facility] Comment on above: Result Comment: TSH testing is performed using different testing methodology at [facility] than at other [facility]. Direct result comparisons should only be made within the same method. Performed By: #### T [facility] #### [address] [address] Vital Signs Date Time Vital Sign Value Performing Clinician Facility 08-07-2024 10:44-0400 Body height 144.8 cm Seema Moz [employer] DEVEL[employer] Work Phone: [facility] 08-07-2024 10:44-0400 Body mass index (BMI) [Ratio] 22.55 kg/m2 Seema Tateholz ASPNET DEVELOPER Work Phone: [facility] 08-07-2024 10:44-0403 Body temperature 98.8 [degF] Seema Tateholz ASPNET DEVELOPER Work Phone: [facility] 08-07-2024 10:44-0406 Body weight 47.27 kg Seema Tateholz ASPNET DEVELOPER Work Phone: [facility] 08-07-2024 10:44-0400 Heart rate 95 /min Seema Aichholz ASPNET DEVELOPER Work Phone: [facility] 08-07-2024 10:44-0407 Respiratory rate 18 /min Seema Aichholz ASPNET DEVELOPER Work Phone: [facility] 08-07-2024 10:44-0400 SaO2% (BldA) [Mass fraction] 98 % Seema Tateholz ASPNET DEVELOPER Work Phone: [facility] 03-07-2024 11:44-0400 Body height 147.32 cm [facility] 03-07-2024 11:44-0400 Body mass index (BMI) [Ratio] 22.8 kg/m2 [facility] 03-07-2024 11:44-0400 Body temperature 97.6 [degF] [facility] 03-07-2024 11:44-0400 Body weight 49.44 kg [facility] 03-07-2024 11:44-0400 Diastolic blood pressure 60 mm[Hg] [facility] 03-07-2024 11:44-0400 Heart rate 96 /min [facility] 03-07-2024 11:44-0400 Respiratory rate 16 /min [facility] 03-07-2024 11:44-0400 SaO2% (BldA) [Mass fraction] 86 % [facility] 03-07-2024 11:44-0400 Systolic blood pressure 102 mm[Hg] [facility] 07-20-2023 10:40-0400 Body height 147.32 cm Pratik Derrick Naderer Work Phone: [facility] 250 DO Work Phone: 07-20-2023 10:40-0400 Body mass index (BMI) [Ratio] 21.11 kg/m2 Pratik Meza Naderer Work Phone: [facility] 250 DO Work Phone: 07-20-2023 10:40-0400 Body surface area Derived from formula 1.36 m2 Pratik Derrick Naderer Work Phone: [facility] 250 DO Work Phone: 07-20-2023 10:40-0400 Body weight 45.81 kg Pratik Meza Naderer Work Phone: [facility] [facility] DO Work Phone: 07-20-2023 10:40-0400 Diastolic blood pressure 66 mm[Hg] Pratik Meza Naderer Work Phone: [facility] [facility] DO Work Phone: 07-20-2023 10:40-0400 Heart rate 60 /min Pratik A Naderer Work Phone: [facility] [facility] DO Work Phone: 07-20-2023 10:40-0400 Systolic blood pressure 100 mm[Hg] Pratik Meza Naderer Work Phone: [facility] 250 DO Work Phone: 02-08-2023 14:00-0400 Body height 147.32 cm Madhav Conrad Other [employer] Other 02-08-2023 14:00-0400 Body mass index (BMI) [Ratio] 22.57 kg/m2 Madhav Conrad Other [employer] Other 02-08-2023 14:00-0400 Body weight 48.99 kg Madhav Conrad Other [employer] Other 02-08-2023 14:00-0400 Diastolic blood pressure 60 mm[Hg] Madhav Conrad Other [employer] Other 02-08-2023 14:00-0400 Systolic blood pressure 105 mm[Hg] Madhav Conrad Other [employer] Other 01-12-2023 11:13-0400 Body height 147.32 cm Pratik Derrick Naderer Work Phone: [facility] [employer] 250 DO Work Phone: 01-12-2023 11:13-0400 Body mass index (BMI) [Ratio] 21.95 kg/m2 Pratik Meza Naderer Work Phone: [facility] [employer] 250 DO Work Phone: 01-12-2023 11:13-0400 Body surface area Derived from formula 1.38 m2 Pratik Meza Naderer Work Phone: [facility] [facility] DO Work Phone: 01-12-2023 11:13-0400 Body weight 47.63 kg Pratik Meza Naderer Work Phone: [facility] 250 DO Work Phone: 01-12-2023 11:13-0400 Diastolic blood pressure 60 mm[Hg] Pratik A Naderer Work Phone: [facility] 250 DO Work Phone: 01-12-2023 11:13-0400 Heart rate 88 /min Pratik A Naderer Work Phone: [facility] 250 DO Work Phone: 01-12-2023 11:13-0400 Systolic blood pressure 102 mm[Hg] Pratik A Naderer Work Phone: [facility] [facility] DO Work Phone: 08-02-2022 13:32-0400 Diastolic blood pressure 62 mm[Hg] Seema Aichholz Work Phone: [facility] 08-02-2022 13:32-0400 Heart rate 63 /min Seema Aichholz Work Phone: [facility] 08-02-2022 13:32-0400 Respiratory rate 18 /min Seema Aichholz Work Phone: [facility] 08-02-2022 13:32-0400 SaO2% (BldA) [Mass fraction] 100 % Seema Aichholz Work Phone: [facility] 08-02-2022 13:32-0400 Systolic blood pressure 122 mm[Hg] Seema Aichholz Work Phone: [facility] 08-02-2022 12:26-0400 Body height 147.32 cm Seema Aichholz Work Phone: [facility] 08-02-2022 12:26-0400 Body temperature 98.3 [degF] Seema Aichholz Work Phone: [facility] 08-02-2022 12:26-0400 Body weight 48.53 kg Seema Aichholz Work Phone: [facility] 06-23-2022 15:29-0400 Body height 147.32 cm Pratik Derrick Naderer Work Phone: [facility] 250 DO Work Phone: 06-23-2022 15:29-0400 Body mass index (BMI) [Ratio] 22.62 kg/m2 Pratik Meza Naderer Work Phone: [facility] 250 DO Work Phone: 06-23-2022 15:29-0400 Body surface area Derived from formula 1.4 m2 Pratik Meza Naderer Work Phone: [facility] 250 DO Work Phone: 06-23-2022 15:29-0400 Body weight 49.1 kg Pratik Meza Naderer Work Phone: [facility] 250 DO Work Phone: 06-23-2022 15:29-0400 Diastolic blood pressure 60 mm[Hg] Pratik Meza Naderer Work Phone: [facility] 250 DO Work Phone: 06-23-2022 15:29-0400 Heart rate 62 /min Pratik Meza Naderer Work Phone: [facility] 250 DO Work Phone: 06-23-2022 15:29-0400 Systolic blood pressure 110 mm[Hg] Pratik Meza Naderer Work Phone: [facility] 250 DO Work Phone: 05-11-2022 11:17-0400 Blood Pressure Location Med JENKINS [facility] 05-11-2022 11:17-0400 Diastolic blood pressure 63 mm[Hg] Med JENKINS [facility] 05-11-2022 11:17-0400 Heart rate 81 /min Med JENKINS [facility] 05-11-2022 11:17-0400 Respiratory rate 16 /min Med JENKINS [facility] 05-11-2022 11:17-0400 Systolic blood pressure 125 mm[Hg] Med JENKINS [facility] 03-24-2022 13:00-0400 Body height 147.32 cm Aba Givoanny Other [employer] Other 03-24-2022 13:00-0400 Body mass index (BMI) [Ratio] 22.28 kg/m2 Aba Giovanny Other [employer] Other 03-24-2022 13:00-0400 Body temperature 97.7 [degF] Aba Giovanny Other [employer] Other 03-24-2022 13:00-0400 Body weight 48.35 kg Aba Giovanny Other [employer] Other 03-24-2022 13:00-0400 Diastolic blood pressure 70 mm[Hg] Aba Giovanny Other [employer] Other 03-24-2022 13:00-0400 Respiratory rate 18 /min Aba Giovanny Other [employer] Other 03-24-2022 13:00-0400 SaO2% (BldA) [Mass fraction] 97 % Aba Giovanny Other [employer] Other 03-24-2022 13:00-0400 Systolic blood pressure 110 mm[Hg] Aba Giovanny Other [employer] Other 12-29-2021 11:00-0500 Body height 147.32 cm Pratik A Naderer Work Phone: [facility] [employer] DO Work Phone: 12-29-2021 11:00-0500 Body mass index (BMI) [Ratio] 22.99 kg/m2 Pratik A Naderer Work Phone: [facility] [employer] 250 DO Work Phone: 12-29-2021 11:00-0500 Body surface area Derived from formula 1.41 m2 Pratik A Naderer Work Phone: [facility] [employer] 250 DO Work Phone: 12-29-2021 11:00-0500 Body weight 49.9 kg Pratik A Naderer Work Phone: [facility] [employer] 250 DO Work Phone: 12-29-2021 11:00-0500 Diastolic blood pressure 60 mm[Hg] Pratik A Naderer Work Phone: [facility] [employer] 250 DO Work Phone: 12-29-2021 11:00-0500 Heart rate 68 /min Pratik A Naderer Work Phone: [facility] [employer] 250 DO Work Phone: 12-29-2021 11:00-0500 Systolic blood pressure 110 mm[Hg] Pratik Bartonerer Work Phone: [facility] 250 DO Work Phone: 10-18-2021 14:30-0500 Body height 147.32 cm Alyssa Ginty Other [place] Other 10-18-2021 14:30-0500 Body mass index (BMI) [Ratio] 22.99 kg/m2 Alyssa Ginty Other [employer] Other 10-18-2021 14:30-0500 Body temperature 97.9 [degF] Alyssa Ginty Other [employer] Other 10-18-2021 14:30-0500 Body weight 49.9 kg Alyssa Ginty Other [employer] Other 10-18-2021 14:30-0500 Diastolic blood pressure 49 mm[Hg] Alyssa Ginty Other [employer] Other 10-18-2021 14:30-0500 Respiratory rate 18 /min Alyssa Ginty Other [employer] Other 10-18-2021 14:30-0500 SaO2% (BldA) [Mass fraction] 98 % Alyssa Ginty Other [employer] Other 10-18-2021 14:30-0500 Systolic blood pressure 136 mm[Hg] Alyssa Ginty Other [employer] Other 09-07-2021 12:15-0500 Body height 147.32 cm Carie Keith Other [employer] Other 09-07-2021 12:15-0500 Body mass index (BMI) [Ratio] 22.49 kg/m2 Carie Keith Other [employer] Other 09-07-2021 12:15-0500 Body weight 48.81 kg Carie Keith Other [employer] Other 09-02-2021 13:40-0400 Body height 147.32 cm Aba Giovanny Other [employer] Other 09-02-2021 13:40-0400 Body mass index (BMI) [Ratio] 22.53 kg/m2 Aba Giovanny Other [employer] Other 09-02-2021 13:40-0400 Body temperature 96.9 [degF] Aba Giovanny Other [employer] Other 09-02-2021 13:40-0400 Body weight 48.9 kg Aba Giovanny Other [employer] Other 09-02-2021 13:40-0400 Diastolic blood pressure 72 mm[Hg] Aba Giovanny Other [employer] Other 09-02-2021 13:40-0400 Respiratory rate 18 /min Aba Giovanny Other [employer] Other 09-02-2021 13:40-0400 SaO2% (BldA) [Mass fraction] 98 % Aba Giovanny Other [employer] Other 09-02-2021 13:40-0400 Systolic blood pressure 110 mm[Hg] Aba Giovanny Other [facility] [employer] Other Encounters Encounter Date Encounter Type Care Provider Facility Start: 10-16-2024 ambulatory Med Yanelis JENKINS Facility :[facility] Start: 08-23-2024 End: 08-26-2024 Clinisync Result Encounter Generic External Data Provider [facility] External Department Unsolicited Start: 08-23-2024 End: 08-26-2024 Clinisync Result Encounter Generic External Data Provider [facility] External Department Unsolicited Start: 08-07-2024 End: 08-07-2024 Bamboo flowsheet Seema Sutherland ASPNET DEVELOPER Work Phone: [facility] Start: 08-07-2024 End: 08-10-2024 Bamboo flowsheet Seema Sutherland ASPNET DEVELOPER Work Phone: [facility] Start: 08-07-2024 End: 08-10-2024 Clinisync Result Encounter Generic External Data Provider [facility] External Department Unsolicited Start: 08-07-2024 End: 08-07-2024 Office outpatient visit 25 minutes Seema Sutherland ASPNET DEVELOPER Work Phone: [facility] Comment on [...] 07-19-2024 Emergency department patient visit JACK VIVEROS [facility] Start: 07-18-2024 End: 07-18-2024 ambulatory [facility] Start: 06-13-2024 End: 06-13-2024 ambulatory SERGIO CABRAL Not Available Start: 04-10-2024 End: 04-10-2024 ambulatory Med JENKINS Facility:[facility] Start: 04-10-2024 End: 04-10-2024 Patient encounter procedure Med JENKINS [facility] Start: 03-20-2024 End: 03-20-2024 ambulatory DESTINEY DUDLEY Not Available Start: 03-11-2024 End: 03-11-2024 ambulatory SEEMA SUTHERLAND Not Available Start: 03-07-2024 End: 03-07-2024 ambulatory [facility] Work Phone: Start: 03-07-2024 End: 03-07-2024 Patient encounter procedure [facility] Neph[facility] Steve Work Phone: Start: 02-27-2024 Non-patient / [facility]-visit [facility] Work Phone: Start: 02-26-2024 End: 02-26-2024 ambulatory Med JENKINS Facility:[facility] Start: 02-26-2024 End: 02-26-2024 Patient encounter procedure Med JENKINS [facility] Start: 11-13-2023 End: 12-19-2023 Pre-admission assessment Med JENKINS [facility] Start: 11-13-2023 End: 11-13-2023 ambulatory Med JENKINS Facility:[facility] Start: 11-13-2023 End: 11-13-2023 Patient encounter procedure Med JENKINS [facility] Start: 10-03-2023 ambulatory Med JENKINS Facility:[facility] Start: 09-27-2023 End: 09-27-2023 ambulatory Med JENKINS Facility:[facility] Start: 09-27-2023 End: 09-27-2023 Patient encounter procedure Med JENKINS [facility] Start: 08-16-2023 End: 08-16-2023 ambulatory Med JENKINS Facility:[facility] Start: 08-16-2023 End: 08-16-2023 Lab Drop off Med JENKINS [facility] Start: 08-16-2023 End: 08-16-2023 ambulatory Med JENKINS Facility:[facility] Start: 08-16-2023 End: 08-16-2023 Patient encounter procedure Med JENKINS [facility] Start: 07-20-2023 Office outpatient vi sit 25 minutes Pratik Derrick Tadeo Work Phone: [facility] 250 DO Work Phone: Start: 07-20-2023 ambulatory Thompson Turcios Facility :[id number] Start: 07-05-2023 End: 07-05-2023 ambulatory Seema J Lancehabbeyz Facility:[facility] Start: 07-05-2023 End: 07-05-2023 ambulatory Seema J Aichholz Work Phone: [facility] Work Phone: Start: 07-05-2023 End: 07-05-2023 Patient encounter procedure Seema Aichholz Work Phone: [facility] [address] Work Phone: Start: 05-25-2023 End: 05-25-2023 ambulatory Aba Giovanny Other [facility] [employer] Other Start: 05-25-2023 Telephone encounter Aba Giovanny [facility] Start: 05-11-2023 End: 05-11-2023 ambulatory Med Yanelis TRINA Facility:[facility] Start: 05-11-2023 End: 05-11-2023 Patient encounter procedure Med JENKINS [facility] Start: 05-08-2023 End: 05-08-2023 ambulatory Aba Giovanny Other [place] Other Start: 05-08-2023 Telephone encounter Aba Giovanny [facility] Start: 02-08-2023 End: 02-08-2023 ambulatory Madhav Diryy Other [place] [employer] Other Start: 02-08-2023 Patient encounter procedure Madhav Conrad [facility] Start: 01-12-2023 ambulatory Thompsonrhys Damonim Facility : Start: 01-12-2023 Office outpatient vi sit 25 minutes Pratik Derrick Tadeo Work Phone: [facility] 250 DO Work Phone: Start: 11-30-2022 End: 11-30-2022 ambulatory Aba Giovanny Other [place] [employer] Other Start: 11-30-2022 Telephone encounter Aba Giovanny [facility] Start: 11-29-2022 End: 11-30-2022 ambulatory OTILIA SUTHERLAND Facility: Start: 08-03-2022 End: 08-03-2022 ambulatory Madhav Conrad Other [place] [employer] Other Start: 08-03-2022 Telephone encounter Madhav CAMERON [facility] Start: 08-02-2022 End: 08-02-2022 ambulatory Seema Sutherland Facility:[facility] Start: 08-02-2022 End: 08-02-2022 Admission to same day surgery center Seema Sutherland Work Phone: [facility] Start: 08-02-2022 End: 08-02-2022 ambulatory Seema Sutherland Work Phone: [facility] Work Phone: Start: 07-29-2022 End: 07-29-2022 ambulatory Madhav Padillatim Facility:[facility] Start: 07-29-2022 End: 07-29-2022 Patient encounter procedure Seema Sutherland Work Phone: [facility] Start: 07-13-2022 Rx Renewal Pratik A Naderer Work Phone: [facility] 250 DO Work Phone: Start: 07-11-2022 End: 07-12-2022 ambulatory CARE AID SEEMA SUTHERLAND Facility:[facility] Start: 06-23-2022 Office outpatient vi sit 25 minutes Pratik A Naderer Work Phone: [facility] 250 DO Work Phone: Start: 06-22-2022 End: 06-22-2022 Patient encounter procedure Med JENKINS [facility] Start: 06-15-2022 End: 06-16-[address] DONNA TURCIOS Facility:[facility] Start: 05-23-2022 End: 05-23-2022 Patient encounter procedure Med JENKINS [facility] Start: 05-17-2022 End: 05-17-2022 Lab Drop off Med JENKINS [facility] Start: 05-17-2022 End: 05-17-2022 Patient encounter procedure Med JENKINS [facility] Start: 05-11-2022 End: 05-11-2022 Patient encounter procedure Med JENKINS [facility] Start: 04-20-2022 End: 04-21-2022 ambulatory OTILIA SUTHERLAND Facility:[facility] Start: 03-24-2022 End: 03-24-2022 ambulatory Aba Giovanny Other [facility] [employer] Other Start: 03-24-2022 Office outpatient vi sit 25 minutes Aba Giovanny [facility] Start: 03-23-2022 End: 03-23-2022 ambulatory RODERICK KONG Facility:[facility] Start: 03-23-2022 End: 03-24-2022 ambulatory ABA GIOVANNY Facility:[facility] Start: 03-22-2022 End: 03-23-2022 ambulatory ABA GIOVANNY [facility] [employer] Other Start: 03-22-2022 Telephone encounter Aba Giovanny [facility] Start: 12-29-2021 Office outpatient vi sit 25 minutes Pratik Tadeo Work Phone: [facility] 250 DO Work Phone: Start: 10-18-2021 End: 10-18-2021 ambulatory Alyssa Ginty Other [place] Other Start: 10-18-2021 Office outpatient vi sit 15 minutes Alyssa Weller [facility] Start: 09-07-2021 End: 09-07-2021 ambulatory Carie Keith Other [place] [employer] Other Start: 09-07-2021 Office outpatient vi sit 15 minutes Carie Keith [facility] Start: 09-02-2021 End: 09-02-2021 ambulatory Aba Giovanny Other [facility] [employer] Other Start: 09-02-2021 Office outpatient vi sit [...] encounter procedure Bean Cantu Work Phone: [facility] [place] [facility] Start: 01-29-2018 Ambulatory [facility] Facility :[id number] Procedures Date Procedure [...] [facility] [address] [place] [phone] Seema Sutherland, ASPNET DEVELOPER [address] [place] [phone] [facility] Start: 08-22-2024 End: 08-22-2024 Patient encounter procedure 08/22/2024 11:00 AM EDT Office Visit [facility] [address] [place] [id number] Destiney Dudley NP [address] [place], [place] [facility] Start: 08-19-2024 End: 08-19-2024 Patient encounter procedure 08/19/2024 10:00 AM EDT Office Visit [facility] [address] [place] [phone] Seema Sutherland, ASPNET DEVELOPER [address] [place] [phone] [facility] Start: 08-15-2024 End: 08-15-2024 Patient encounter procedure 08/15/2024 2:15 PM EDT Office Visit [facility] [address] [place] [phone] Candace Mullins MD [address] [place] [address] [facility] Start: 08-07-2024 End: 08-07-2024 Patient encounter procedure 08/07/2024 10:30 AM EDT Office Visit [facility] [address] [place] [phone] Seema Sutherland, ASPNET DEVELOPER [address] [place] [phone] Idiopathic hypoparathyroidism (CMS/HCC); Rheumatoid arthritis, unspecified (CMS/HCC); Major depressive disorder, single episode, mild (HCC) ([facility]/HCC) [facility] Comment on above: Idiopathic hypoparathyroidism (CMS/HCC); Rheumatoid arthritis, unspecified (CMS/HCC); Major depressive disorder, single episode, mild (HCC) (CMS/HCC) Start: 06-30-2024 Influenza vaccination Influenza Vaccine (#1) [facility] Start: 07-20-2023 FUV, Provider: Donna Turcios, Status: Pen, Time: 10:20 AM FUV, Provider: Donna Turcios, Status: Pen, Time: 10:20 AM [facility] [employer] 250 DO Work Phone: Start: 01-12-2023 FUV, Provider: Donna Turcios, Status: Pen, Time: 10:50 AM FUV, Provider: Donna Tucrios, Status: Pen, Time: 10:[address] [facility] DO Work Phone: Start: 08-02-2022 [facility] Start: 07-12-2022 FUV, Provider: Donna Turcios, Status: Pen, Time: 10:50 AM FUV, Provider: Donna Turcios, Status: Pen, Time: 10:[address] [facility] 250 DO Work Phone: Start: 02-17-2021 Bacteria identified in Urine by Culture Urine Culture [facility] Bacteria identified in Urine by Culture URINE CULTURE, ROUTINE Lab Routine 08/07/2024 10:44 PM EDT [facility] Patient Education Gastritis (DC) Omekrystle le [facility] Work Phone: Renal function 2000 panel - Serum or Plasma [facility] Immunizations Immunization Date Immunization Notes Care Provider Fa cility 07-18-2024 tetanus toxoid, redu ruby diphtheria toxoid, and acellular pertussis vaccine, adsorbed Seema Sutherland [employer] DEVELOPER Work Phone: [facility] 08-01-2023 Influenza, Seasonal, Quadrivalent, Adjuvanted Seema Aichholz ASPNET DEVELOPER Work Phone: [facility] 08-01-2023 influenza virus vacc ine, unspecified formulation Seema Aichholz ASPNET DEVELOPER Work Phone: [facility] 06-30-2023 influenza virus vacc ine, unspecified formulation Med JENKINS [facility] 07-25-2022 influenza, high dose seasonal, preservative-free Seema Aichholz ASPNET DEVELOPER Work Phone: [facility] 07-25-2022 Influenza, High-dose Seasonal, Quadrivalent, Preservative Free Seema Aichholz ASPNET DEVELOPER Work Phone: [facility] 09-17-2021 Pfizer-BioNTech COVI D-19 Vacc 30 MCG/0.3ML Intramuscular Suspension Pratik A Naderer Work Phone: [facility] 09-08-2021 influenza virus vacc ine, unspecified formulation Med JENKINS [facility] 09-08-2021 Influenza, injectabl e, Madin Tamworth Canine Kidney, preservative free, quadrivalent Pratik A Naderer Work Phone: [facility] 250 DO Work Phone: 01-05-2021 Moderna COVID-19 Vac cine 100 MCG/0.5ML Intramuscular Suspension Pratik A Naderer Work Phone: [facility] 12-07-2020 Moderna COVID-19 Vac cine 100 MCG/0.5ML Intramuscular Suspension Pratik A Naderer Work Phone: [facility] 08-11-2020 influenza virus vacc ine, unspecified formulation Med TRINA [facility] 08-11-2020 influenza, injectabl e, quadrivalent, preservative free Pratik A Naderer Work Phone: [place] [address] DO Work Phone: 08-11-2020 pneumococcal polysaccharide vaccine, 23 valent Pratik A Naderer Work Phone: [facility] 06-30-2020 influenza virus vacc ine, unspecified formulation Pratik A Naderer Work Phone: [facility] 06-30-2020 influenza, seasonal, injectable Seema Lancesonnyjasmin [employer] DEVELOPER Work Phone: [facility] 07-30-2019 influenza virus vacc ine, unspecified formulation Pratik A Naderer Work Phone: [place] [address] DO Work Phone: 07-16-2019 influenza virus vacc ine, unspecified formulation Med TRINA [facility] 07-16-2019 influenza, injectabl e, quadrivalent, preservative free Pratik A Naderer Work Phone: [place] [address] DO Work Phone: 08-09-2018 influenza virus vacc ine, unspecified formulation Med JENKINS [facility] 08-09-2018 influenza, high dose seasonal, preservative-free Pratik A Naderer Work Phone: [place] [address] DO Work Phone: 07-30-2018 influenza virus vacc ine, unspecified formulation Pratik A Naderer Work Phone: [place] [address] DO Work Phone: 08-11-2017 influenza virus vacc ine, unspecified formulation Med TRINA [facility] 08-11-2017 influenza, high dose seasonal, preservative-free Pratik A Naderer Work Phone: [place] [address] DO Work Phone: 07-30-2017 influenza virus vacc ine, unspecified formulation Pratik Meza Naderer Work Phone: [place] [address] DO Work Phone: 08-02-2016 influenza virus vacc ine, unspecified formulation Med JENKINS [facility] 08-02-2016 influenza, high dose seasonal, preservative-free Pratik A Naderer Work Phone: [place] [address] DO Work Phone: 06-30-2016 influenza virus vacc ine, unspecified formulation Pratik Meza Naderer Work Phone: [place] [address] DO Work Phone: 01-08-2016 pneumococcal conjuga te vaccine, 13 valent Pratik A Naderer Work Phone: [facility] 07-21-2015 influenza virus vacc ine, unspecified formulation Pratik Meza Naderer Work Phone: [place] [address] DO Work Phone: 07-21-2015 pneumococcal polysaccharide vaccine, 23 valent Pratik A Naderer Work Phone: [place] [address] DO Work Phone: 07-17-2015 influenza virus vacc ine, unspecified formulation Med TRINA [facility] 07-17-2015 influenza, high dose seasonal, preservative-free Seema Koko ASPNET DEVELOPER Work Phone: [facility] 07-17-2014 influenza virus vacc ine, unspecified formulation Med TRINA [facility] 07-17-2014 influenza, high dose seasonal, preservative-free Pratik A Naderer Work Phone: [place] [address] DO Work Phone: 08-07-2012 influenza virus vacc ine, unspecified formulation Med JENKINS [facility] 08-07-2012 influenza, seasonal, injectable, preservative free Pratik A Naderer Work Phone: [place] [address] DO Work Phone: 06-04-2012 tetanus toxoid, redu ruby diphtheria toxoid, and acellular pertussis vaccine, adsorbed Pratik A Naderer Work Phone: [facility] 07-30-2011 seasonal influenza, intradermal, preservative free Seema Sutherland ASPNET DEVELOPER Work Phone: [facility] 09-16-2010 influenza virus vacc ine, unspecified formulation Med [employer] [facility] 09-16-2010 influenza, seasonal, injectable Pratik A Naderer Work Phone: [place] [address] DO Work Phone: 08-14-2010 pneumococcal polysaccharide vaccine, 23 valent Seema Sutherland ASPNET DEVELOPER Work Phone: [facility] Payers Date Payer Category Payer Private Health Insurance [id number] 2023 Private Health Insurance I [id number] 2022 Self-pay [id number] 2005 Medicare [id number] 1959 Medicare [id number] 1959 Unknown [id number] 1940 Unknown [id number] 2.16.84 0.1.880707.3.579.2.593 1940 Unknown [id number] 2.16.84 0.1.617509.3.579.2.593 1940 Unknown [id number] 2.16.84 0.1.596796.3.579.2.593 1940 Unknown [id number] 2.16.84 0.1.817785.3.579.2.593 1940 Unknown [id number] 2.16.84 0.1.801952.3.579.2.593 1940 Unknown [id number] 2.16.84 0.1.169266.3.579.2.593 1940 Unknown [id number] 2.16.84 0.1.021712.3.579.2.593 1940 Unknown [id number] 2.16. 840.1.573657.3.579.2.356 1940 Unknown [id number] 2.16. 840.1.968819.3.579.2.356 1940 Unknown [id number] 2.16.8 40.1.021629.3.579.2.727 1940 Unknown [id number] 2.16.8 40.1.735471.3.579.2.727 1940 Unknown [id number] 2.16.8 40.1.360183.3.579.2.727 1940 Unknown [id number] 2.16.8 40.1.428844.3.579.2.727 1940 Unknown [id number] 2.16.8 40.1.421267.3.579.2.727 194 Unknown [id number] 2.16.8 40.1.544230.3.579.2.727 194 Unknown [id number] 2.16.8 40.1.001570.3.579.2.727 194 Unknown [id number] 2.16.8 40.1.084099.3.579.2.727 1940 Unknown [id number] 2.16.8 40.1.611411.3.579.2.1244 1940 Unknown [id number] 2.16.8 40.1.047990.3.579.2.1286 1940 Unknown [id number] 2.16.8 40.1.800567.3.579.2.1286 194 Unknown [id number] 2.16.8 40.1.100562.3.579.2.1286 1940 Unknown [id number] 2.16.8 40.1.452003.3.579.2.1286 1940 Unknown [id number] 2.16.8 40.1.960109.3.579.2.1286 1940 Unknown [id number] 2.16.84 0.1.500129.3.579.2.1259 1940 Unknown [id number] 2.16.84 0.1.624847.3.579.2.1259 1940 Unknown [id number] 2.16.84 0.1.499239.3.579.2.1259 1940 Unknown [id number] 2.16.84 0.1.612950.3.579.2.1259 Medicare [id number] Unknown [id number] Unknown Unknown [id number] 2.16.8 40.1.601340.3.579.2.531 Unknown [id number] 2.16.8 40.1.370220.3.579.2.531 Unknown [id number] 2.16.8 40.1.577548.3.579.2.531 Social History Date Type Detail Facility Start: 02-17-2021 End: 07-11-2023 Tobacco smoking status ORIS Never smoked tobacco (finding) [facility] Start: 1940 Sex Assigned At Female F [facility] Start: 03-11-2024 End: 06-13-2024 No alcohol use No alcohol use [facility] Start: 03-11-2024 End: 06-13-2024 Sex Assigned At [facility] [employer] Other Tobacco smoking status Never [facility] Start: 07-11-2023 Tobacco use and exposure Smokeless tobacco non-user [facility] Start: 06-13-2024 End: 08-07-2024 Alcoholic beverage intake Lifetime non-drinker (finding) [facility] Start: 1940 Sex assigned at Not on file N [facility] Medical Equipment Procedure Code Equipment Code [...] knee, total, minimally invasive Orthopaedic cement, non-medicated ()[id number] FDA Start: 03-09-2021 Arthroplasty, knee, total, minimally invasive Uncoated knee femur prosthesis, metallic ()[id number] FDA Start: 03-09-2021 Arthroplasty, knee, total, minimally invasive Polyethylene patella prosthesis ()[id number] FDA Start: 03-09-2021 Arthroplasty, knee, total, minimally invasive Tibial insert ()[id number] FDA Start: 03-09-2021 Arthroplasty, knee, total, minimally invasive Uncoated knee tibia prosthesis, metallic ()[id number] FDA Start: 03-09-2021 Arthroplasty, knee, total, minimally [...] Facility 04-10-2024 Functional Status N/A [facility] 02-26-2024 Functional Status N/A [facility] 09-27-2023 Functional Status N/A [facility] 08-16-2023 Functional Status N/A [facility] 05-11-2023 Functional Status N/A [facility] 06-22-2022 Functional Status N/A [facility] 05-19-2022 Functional Status N/A [facility] 05-11-2022 Functional Status N/A [facility] Clinical Notes 09-02-2021 to 08-07-2024 Seema [...] will need ortho Associated Problem(s): Parkinson's disease ([facility]) Cont with neuro Possible worsening tremor d/t [...] fracture, had xray and CT head/neck at [facility], sent home with sling no ortho referral [...] unspecified vessel or lesion type, unspecified whether kiana or transplanted heart ([facility]) COVID-19 vaccine administered x2 moderna CVA (cerebral vascular accident) ([facility]) 11/2016 Failure to thrive in adult Female cystocele History of CVA (cerebrovascular accident) Hypocalcemia Hypokalemia Hypothyroidism (acquired) ([facility]) Hypothyroidism (acquired) ([facility]) 10/21/2023 Hypothyroidism ([facility]) Impaired mobility Inguinal hernia Left knee pain, unspecified chronicity Myocardial infarct ([facility]) 2015, 2016 Nephrolithiasis Paresthesia Parkinson disease ([facility]) Pressure sore on buttocks Senile debility Shoulder [...] Items Addressed This Visit Rheumatoid arthritis, unspecified ([facility]/HCC) Managed by Rheumatology Parkinson's disease ([facility]) - Primary Cont with neuro Possible worsening tremor d/t freq diarrhea and unable to absorb meds? Discussion with pt and spouse about possible temporary NH placement for strengthening?? Major depressive disorder, single episode, mild (HCC) ([facility]) No current antidepressant meds Idiopathic hypoparathyroidism ([facility]) Follow with endo Hemiparesis, right ([facility]) Closed fracture of acromial end of right clavicle Reviewed xray, will need ortho Diarrhea of presumed infectious origin Possible c diff d/t recent UTI with atb treatment Dd: viral illness Go to ER, for evaluation dehydration Associated Problem(s): Major depressive disorder, single episode, mild (HCC) ([facility]) No current antidepressant meds Associated Problem(s): Rheumatoid arthritis, unspecified (CMS/HCC) Managed by Rheumatology Associated Problem(s): Idiopathic hypoparathyroidism (CMS/HCC) Follow with endo documented in this encounter [facility] 04-10-2024 Hospital Discharge instructions Patient Education [...] nerve stimulation). ?For women, using a medical terminologist to prevent urine leaks. This is a [...] right after experiencing incontinence. General instructions Take gkhj-lxz-erjfwwq and prescription medicines only as told by [...] important. Where to find more information National [place] of Diabetes and Digestive and Kidney Diseases: www.niddk.nih.gov [place] [employer]: www.urologyhealth.org Contact a health care [...] provider. Document Revised: 05/21/2021 Document Reviewed: 05/21/2021 Writer.ly Patient Education 2022 [employer]zer. Follow Up Care 02/26/2024 13:52:27 With:Med JENKINS MD, URL Address: [address] [place] [address]- When: Unknown [facility] 02-26-2024 Hospital Discharge instructions Patient Education [...] Care 11/13/2023 15:16:14 With:Med JENKINS Address: [address] [place] [phone]- Business (1) When:6 weeks Comments:Call for followup appointment, with a bladder scan at that visit to check for bladder emptying. [facility] 02-26-2024 Note [id number] [facility] 02-26-2024 Note Cystoscopy with Boto x [...] you have a fever over 100 degrees. [facility] 11-13-2023 Evaluation + Plan note Extrac db from: Title:HOPD visit Author:Med JENKINS MD Date: 11/13/23 Impression and Plan Assessment and Plan: Diagnosis: Acute UTI (QVC68-RH N39.0, Working, Medical), Mixed incontinence urge and stress (AMV25-DP N39.46, Working, Medical), Overactive bladder (YBT15-QB N32.81, Working, Medical). Additional Plan of Care [...] is also instructed to follow-up with her nursing care attendant regarding some heart rate issues. She should [...] Appointments Appointment Date:12/18/2023 03:15:00 PM Scheduled Provider: Location:[facility] Appointment Type:Urology FT Diagnostic Tests Pending * Urine Culture 11/13/23 [facility]11-29-2023 Hospital Discharge instructions Follow Up Care 09/27/2023 13:27:49 With:Med JENKINS Address: [address] [place] [address]- Business (1) When: Unknown Comments:As you [...] probiotics locally and the cranberry is self-explanatory.My lead web application developer will call you to get you back on the books for the Botox injection. [facility]11-29-2023 Hospital Discharge instructions Patient Education 09/27/2023 13:13:52 [...] nerve stimulation). ?For women, using a medical terminologist to prevent urine leaks. This is a [...] right after experiencing incontinence. General instructions Take lgdz-fcp-njojwow and prescription medicines only as told by [...] important. Where to find more information National [place] of Diabetes and Digestive and Kidney Diseases: www.niddk.nih.gov [place] [employer]: www.urologyhealth.org Contact a health care [...] provider. Document Revised: 05/21/2021 Document Reviewed: 05/21/2021 Writer.ly Patient Education 2022 Schmoozer. Follow Up Care 08/16/2023 10:31:24 With:TRINA WATSON, Med Hilario, URL Address: [address] [place], [place] [id number] When: Unknown [facility] 10-18-2023 Hospital Discharge instructions Patient Education [...] Treatment for this condition includes: Antibiotic medicine. Rqqx-ayb-ufslpuk medicines to treat discomfort. Drinking enough water [...] Follow these instructions at home: Medicines Take uxkt-nzj-xufebqo and prescription medicines only as told by [...] provider. Document Revised: 05/28/2021 Document Reviewed: 05/28/2021 Writer.ly Patient Education 2022 Schmoozer. Follow Up Care 05/11/2023 08:07:36 With:TRINA WATSON, Med Hilario, URL Address: [address] [place] [address]- When: Unknown [facility] 07-27-2023 Evaluation note* Encounter Date Diagnosis Assessment Notes Treatment Notes Treatment Clinical Notes Apr, Hypomagnesemia (ICD-10 - E83.42) [facility] 07-13-2023 Hospital Discharge instructions Patient Education [...] Up Care 04/12/2023 15:40:50 With:Med JENKINS Address: [address] [place] [address] [facility] (1) When:3 months Comments:Call for followup appointment, with bladder scan checking for residual urine at that visit. [facility]07-13-2023 Note [id number]:127[facility] 05-11-2023 NoteCystoscopy with Botox injection ? [...] if you have a fever over 100 degrees.[facility] 05-08-2023 Evaluation note* Encounter Date Diagnosis Assessment Notes Treatment Notes Treatment Clinical Notes Apr, Hypomagnesemia (ICD-10 - E83.42) [facility] Other 04-12-2023 Evaluation note* Encounter Date Diagnosis Assessment Notes Treatment Notes Treatment Clinical Notes Jan, Early satiety (ICD-10 - R68.81) Jan, Gastritis (ICD-10 - K29.70) Continue Omeprazole as directed Rto 1 yr Jan, Borborygmi (ICD-10 - R19.8) [facility] Other 10-04-2022 Procedure [facility]08-24-2022 Hospital Discharge instructions Patient Education 06/22/2022 [...] nerve stimulation). For women, using a medical terminologist to prevent urine leaks. This is a [...] right after experiencing incontinence. General instructions Take kudv-hsj-thqozpu and prescription medicines only as told by [...] 11/23/2005 Document Revised: 10/26/2018 Document Reviewed: 01/25/2018 Writer.ly Patient Education 2020 Schmoozer. 06/22/2022 13:02:35 Kegel Exercises Kegel Exercises Kegel [...] 10/02/2013 Document Revised: 06/05/2019 Document Reviewed: 06/05/2019 Writer.ly Patient Education 2020 Schmoozer. Follow Up Care 05/23/2022 15:12:51 With:TRINA WATSON, Med Hilario, URL Address: When:Within 6 Month(s) Comments:w/PVR [facility] 07-25-2022 Hospital Discharge instructions Patient Education [...] Care 05/11/2022 11:39:36 With:Med JENKINS Address: [address] [address]- Business (1) When:2 to 4 weeks Comments:Call for followup appointment, and a bladder scan to check bladder emptying will be performed at that visit. [facility]07-13-2022 Hospital Discharge instructions Patient Education 05/11/2022 11:28:58 [...] fried and sweet foods. General instructions Take aamt-fdt-icbijne and prescription medicines only as told by [...] 08/12/2010 Document Revised: 02/06/2020 Document Reviewed: 11/01/2018 Writer.ly Patient Education 2020 Schmoozer. Follow Up Care 12/27/2021 11:50:32 With:TRINA WATSON, Med Hilario, URL Address: [facility] [address] When: Unknown [facility] 05-26-2022 Evaluation note* Encounter Date Diagnosis [...] of cardiac arrest due to the hypokalemia [facility] Other 12-20-2021 Evaluation note* Encounter Date Diagnosis Assessment Notes Treatment Notes Treatment Clinical Notes Sep, Abnormal skin growth (ICD-10 - D49.2) Will send to derm for further evaluation and treatment. Advised patient that area will likely need to be removed. Message sent to search marketing coordinator to schedule and make appointment for patient. Area covered with silvadine cream in office with non adherent telfa and coban. Advised patient not to pick at area. Immediate evaluation in ER for signs of infection, including, fever, red streaking, foul odor, any new or worsening symptoms. 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 Continue physical therapy exercises and TKA precautions. Instructed patient to call with any questions or concerns. 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 [facility] Other Evaluation + Plan note Future Appointments Appointment Date:05/16/2022 10:00:00 AM Scheduled Provider: Location:[facility] Appointment Type:Urology CALL [facility] FT Appointment Date:05/23/2022 02:30:00 PM Scheduled Provider: Location:[facility] Appointment Type:Urology FT [facility] Evaluation + Plan note Future Appointments Appointment Date:05/23/2022 02:30:00 PM Scheduled Provider: Location:[facility] Appointment Type:Urology FT [facility] Evaluation + Plan note Future Appointments Appointment Date:05/23/2022 02:30:00 PM Scheduled Provider: Location:[facility] Appointment Type:Urology FT Diagnostic Tests Pending * Urine Culture [facility]22 [facility] Future Appointments Appointment Date:06/22/2022 11:45:00 AM Scheduled Provider:Med JENKINS MD Location:[facility] App[facility]ment [facility] Future Appointments Appointment Date:12/14/2022 11:15:00 AM Scheduled Provider:Med JENKINS MD Location:[facility] Appointment Type:URO Office Visit [facility] Evaluation + Plan note Future Appointments Appointment Date:08/16/2023 09:30:00 AM Scheduled Provider:Med JENKINS MD Location:[facility] Appointment Type:[facility] Future Appointments Appointment Date:09/27/2023 01:00:00 PM Scheduled Provider:Med JENKINS MD Location:[facility] Appointment Type:URO Office Visit Diagnostic Tests Pending * Urine Culture [facility]16[facility]23 [facility] Future Appointments Appointment Date:09/27/2023 01:00:00 PM Scheduled Provider:Med JENKINS MD Location:[facility] Appointment Type:URO Office Visit [facility] Evaluation + Plan note Future Appointments Appointment Date:10/31/2023 09:45:00 AM Scheduled Provider: Location:[facility] Appointment Type:Urology CALL PAT FT Appointment Date:11/13/2023 02:45:00 PM Scheduled Provider: Location:[facility] Appointment Type:Urology FT [facility] Evaluation + Plan note Future Appointments Appointment Date:04/10/2024 10:00:00 AM Scheduled Provider: Location:[facility] Appointment Type:URO [facility] Future Appointments Appointment Date:10/16/2024 01:00:00 PM Scheduled Provider:Med JENKINS MD Location:[facility] Appointment Type:URO Office Visit [facility] Evaluation noteNo Assessments Information Available [facility] noteNo InformationNort [employer] Other Evaluation noteNo assessment information available [facility] Work Phone: evaluation note* Diagnosis Onset Date Resolution Status Hypomagnesemia acute CAD (coronary artery disease) chronic Hyperlipidemia chronic Hypokalemia resolved [facility] Work Phone: Evaluation note* Diagnosis Closed nondisplaced [...] HealthcareHistory and physical note Author Madhav Conrad [facility] August 02, 2022 12:52pm Note Date/Time August 02, 2022 12 :52pm [facility] [address] [place] [address] Gastroenterology H&P Signed Patient: Narciso Velasquez MR#: [id number] : 1940 Acct:[id number] Age/Sex: 81 / F Adm Date: 2 Loc: Room: Type: [facility] Attending Dr: Madhav Conrad MD Copies [...] signed by Madhav Conrad MD> 08/02/22 1252 [facility] Work Phone: History general Narrative - [...] heart attack 11/2016 Hospitalization History SEE ABOVE [facility] Other Hospital course Narrative No data available for this section [facility] Hospital Discharge instructions No data available for this section [facility] Hospital Discharge instructions Additional Instructions DISCHARGE [...] Follow up with PCP. - Office number [phone].[facility] Work Phone: Progress note No data available for this section [facility] Summary Purpose Family History Relationship Condition [...] growth (D49.2) Referral Organization [facility] Referring Provider First Name Alyssa Referring Provider Last Name Janee Referring Provider Specialty Nurse Pract itioner Referred Organization [facility] Referred Provider Castillo Mcgowan Thomas Referred Address ,[place], [place],[address] Referred Provider Specialty Dermatology Referral Priority Routine General Notes Xochitl Craig 021 02:26:04 PM >Received today and sent P2P even though the notes are not locked Additional Source Comments INFORMATION SOURCE (unrecogn ized section and content) DATE CREATED AUTHOR 04/19/2018 [facility] DATE CREATED AUTHOR AUTHOR'S ORGANIZ ATION 03/15/2020 [facility] DATE CREATED AUTHOR AUTHOR'S ORGANIZ ATION 12/01/2022 [facility] DATE CREATED AUTHOR AUTHOR'S ORGANIZ ATION 07/15/2023 [facility] DATE CREATED AUTHOR AUTHOR'S ORGANIZ ATION 07/22/2023 [facility] [facility] DATE CREATED AUTHOR AUTHOR'S ORGANIZ ATION 07/22/2023 [employer] DATE CREATED AUTHOR AUTHOR'S ORGANIZ ATION 04/13/2024 Sekou Marx [facility] DATE CREATED AUTHOR AUTHOR'S ORGANIZ ATION 07/20/2024 [facility] DATE CREATED AUTHOR AUTHOR'S ORGANIZ ATION 07/21/2024 [facility] DATE CREATED AUTHOR AUTHOR'S ORGANIZ ATION 08/09/2024 [facility] EPIC REASON FOR VISIT [...] Active Curtis Alcocer MD Attending Provider Active Industrial Management Teacher Relationship Specialty Start Date End Date Pratik Tadeo MD [address] [place] [phone] PCP - General Family Medicine 12/27/23 Seema Sutherland NP [address] [place] [phone] Referring Physician Nurse Practitioner 05/12/23 Sergio Cabral DO [address] [place] [address] Referring Physician Neurology 12/26/23 Industrial Management Teacher Relationship Specialty Start Date End Date Pratik Tadeo MD [address] [place] [phone] PCP - General Family Medicine 12/27/23 Seema Sutherland, VITALIY [address] [place] [phone] Referring Physician Nurse Practitioner 05/12/23 Sergio Cabral DO [address] [place] [address] Referring Physician Neurology 12/26/23 Industrial Management Teacher Relationship Specialty Start Date End Date Pratik Tadeo MD [address] [place] [phone] PCP - General Family Medicine 12/27/23 Seema Sutherland, VITALIY [address] [place] [phone] Referring Physician Nurse Practitioner 05/12/23 Sergio Cabral DO [address] [place] [address] Referring Physician Neurology 12/26/23 Industrial Management Teacher Relationship Specialty Start Date End Date Pratik Tadeo MD [address] [place] [phone] PCP - General Family Medicine 12/27/23 Seema Sutherland NP [address] [place] [address] Referring Physician Nurse Practitioner 05/12/23 Sergio Cabral DO [address] [place] [address] Referring Physician Neurology 12/26/23 Goals (unrecognized section [...] BE BASED ON THE PRIMARY CLINICAL RECORDS. [facility] provides no warranty or guarantee of the accuracy or completeness of information in this document.
[2024-09-27 15:09] LABS: Calcium, Ionized, Serum 3.6 mg/dL (4.5-5.6)
== END 2024-09-25 16:38 ==
LOC: ER 19:29 → ICU 09-25 13:09
PROVIDERS: Registered Nurse; Admitting Provider Internal Medicine; Emergency Provider Emergency Medicine; PCP Nurse Practitioner; Visit Provider Internal Medicine
DX: G20.B1 Parkinson's disease with dyskinesia, without mention of fluctuations (principal); R53.1 Weakness; E83.42 Hypomagnesemia; E87.6 Hypokalemia; E83.51 Hypocalcemia; E03.9 Hypothyroidism, unspecified; E78.5 Hyperlipidemia, unspecified; E44.0 Moderate protein-calorie malnutrition; Z68.20 Body mass index [BMI] 20.0-20.9, adult; R64 Cachexia; E86.0 Dehydration; F41.8 Other specified anxiety disorders
CPT/HCPCS: 36415; 80048; 80053; 81001; 82330; 82550; 82800; 83735; 85025; 85027; 96365; 96366; 96367; 96368; 96372; 96375; 97162; 97165; 99285; G0378; J0612; J0613; J1650; J2060; J3475

== ENCOUNTER 2024-10-28 13:33 | Inpatient (IN) | payer MEDICARE, SELFPAY ==
[2024-10-28] VITALS (47 sets, daily range): BP systolic 84–127; BP diastolic 50–73; PULSE 99–135; TEMP 36.4–36.9; O2SAT 93–100; BMI 20.9; BMI 19.4
--- NOTE | 2024-10-28 14:06 | ECG_ITS ---
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
[2024-10-28 14:34] LABS: Basophils Absolute Auto 0.1 10^3/uL (0.0-0.1); Basophils Percent Auto 0.5 % (0.2-2.0); Eosinophils Absolute Auto 0.1 10^3/uL (0.0-0.7); Eosinophils Percent Auto 0.8 % (0.9-7.0); Hemoglobin 10.2 g/dL (12.0-16.0); Immature Granulocytes Abs Auto 0.04 10^3/uL (0.00-0.03); Immature Granulocytes Pct Auto 0.4 % (0.0-0.5); Lymphocytes Absolute Auto 1.6 10^3/uL (1.2-3.8); Lymphocytes Percent Auto 16.6 % (20.5-60.0); Mean Corpuscular HGB Conc 31.9 g/dL (29.9-35.2); Mean Corpuscular Hemoglobin 30.4 pg (26.7-34.0); Mean Corpuscular Volume 95.2 fL (81.0-99.0); Mean Platelet Volume 8.7 fL (9.5-13.5); Monocytes Absolute Auto 0.7 10^3/uL (0.3-0.8); Monocytes Percent Auto 7.2 % (1.7-12.0); Neutrophils Absolute Auto 7.2 10^3/uL (1.4-6.5); Neutrophils Percent Auto 74.5 % (43.0-75.0); Platelet Count 294 10^3/uL (150-450); Red Blood Count 3.36 10^6/uL (4.20-5.40); Red Cell Distribution Width 15.9 % (11.0-15.0); White Blood Count 9.7 10^3/uL (4.0-11.0)
[2024-10-28 15:01] LABS: Alanine Aminotransferase 13 U/L (14-59); Albumin Globulin Ratio 0.7; Albumin Level 2.7 g/dL (3.4-5.0); Alkaline Phosphatase 58 U/L (46-116); Anion Gap 13.4; Aspartate Amino Transferase 20 U/L (15-37); BUN Creatinine Ratio 15.1; Bilirubin Total 0.3 mg/dL (0.2-1.0); Carbon Dioxide 28.1 mmol/L (21.0-32.0); Chloride 105 mmol/L (98-107); Estimated GFR (African America >60 (>=60 mL/min/1.73m^2); Estimated GFR (Non-African Ame >60 (>=60 mL/min/1.73m^2); Globulin 3.8 g/dL; Glucose 84 mg/dL (74-106); Magnesium 1.3 mg/dL (1.8-2.4); Sodium 144 mmol/L (136-145); Total Protein 6.5 g/dL (6.4-8.2); Troponin I High Sensitivity 7.2 pg/mL (4.0-51.3)
[2024-10-28 15:02] LABS: Potassium 2.5 mmol/L (3.5-5.1)
[2024-10-28 15:03] LABS: Calcium 5.8 mg/dL (8.5-10.1)
[2024-10-28] MEDS: MAGNESIUM SULFATE IN WATER 2 GM/50 ML PREMIX IV (15:13)
--- NOTE | 2024-10-28 16:00 | ED_ITS ---
HPI - Extremity Problem General Chief complaint: Extremity Problem, Nontraumatic Stated complaint: RIGHT SIDE GOING NUMB Time Seen by Provider: 10/28/24 14:00 Mode of arrival: walk-in History of Present Illness HPI Narrative: The patient was just [place] [facility] [place] facility a few days before Nathalia coming to us almost 5 days later complaining of generalized weakness, the patient is saying that weakness mostly to the right side that she is complaining of generalized weakness has not been able to do her daily activity, had something similar to this before when she was admitted to the hospital The patient denies any nausea vomiting or diarrhea her at the bedside mentioned that she is not eating enough Related Data Home Medications ?Medication ?Instructions ?Recorded ?Confirmed atorvastatin 20 mg tablet 20 mg PO DAILY 08/07/24 10/28/24 gabapentin 300 mg capsule 600 mg PO BID 08/07/24 10/28/24 pramipexole 0.25 mg tablet 0.25 mg PO BID 08/07/24 10/28/24 trihexyphenidyl 2 mg tablet 2 mg PO BID 08/07/24 10/28/24 calcitriol 0.25 mcg capsule 0.25 mcg PO QDAY 10/28/24 10/28/24 Previous Rx's ?Medication ?Instructions ?Recorded acetaminophen 325 mg tablet 650 mg (2 x 325 mg) PO Q4H PRN 08/28/24 Pain 1-4 15 days #30 tabs levothyroxine 88 mcg tablet 88 mcg PO DAILY #30 tabs 09/25/24 Allergies Allergy/AdvReac Type Severity Reaction Status Date / Time No Known Drug Allergies Allergy Verified 08/07/24 11:58 Review of Systems ROS Status of ROS 10 or more systems reviewed and unremark able except as noted in history and below [facility] Medical History (Updated 10/28/24 @ 17:12 by Bryanna Rodgers MD) Moderate protein malnutrition ?E44.0 - Moderate protein-calorie malnutrition (ICD-10) Malnutrition ?E46 - Unspecified protein-calorie malnutrition (ICD-10) Hypocalcemia ?E83.51 - Hypocalcemia (ICD-10) Situational anxiety ?F41.8 - Other specified anxiety disorders (ICD-10) Coarse tremors ?G25.2 - Other specified forms of tremor (ICD-10) Hypothyroid ?E03.9 - Hypothyroidism, unspecified (ICD-10) Chronic pain disorder ?G89.4 - Chronic pain syndrome (ICD-10) HLD (hyperlipidemia) ?E78.5 - Hyperlipidemia, unspecified (ICD-10) CAD (coronary artery disease) ?I25.10 - Atherosclerotic heart disease of [place] coronary artery without angina pectoris (ICD-10) Parkinson disease ?G20.A1 - Parkinson's disease without dyskinesia, without mention of fluctuations (ICD-10) High cholesterol ?E78.00 - Pure hypercholesterolemia, unspecified (ICD-10) CVA (cerebral vascular accident) ?I63.9 - Cerebral infarction, unspecified (ICD-10) Surgical History (Updated 08/07/24 @ 13:59 by Melissa San RN) History of bowel resection ?Z90.49 - Acquired absence of other specified parts of digestive tract (ICD- 10) H/O heart artery stent ?Z95.5 - Presence of coronary angioplasty implant and graft (ICD-10) Family History (Updated 08/07/24 @ 15:45 by Tanvi Boles) Father Family history of myocardial infarction Social History (Updated 08/07/24 @ 15:45 by Tanvi Boles) Within the past year, how often did you have a drink containing alcohol: never Within the past year, how often did you have six or more drinks on one occasion: never Score interpretation: A score less than 3 is consistent with normal alcohol consumption. Smoking status: Never smoker Second hand tobacco smoke exposure: No Non-prescribed substance use: denies use Previous occupational history: Retired from [employer] Known occupational exposures/hazards: No Highest level of school completed/degree received: GED or equivalent Are you now , , , , never or living with a partner: In a typical week, how many times do you talk on the telephone with family, friends, or neighbors: 3 or more times per week How often do you get together with friends or relatives: 3 or more times per week How often do you attend moravian or zoroastrian services: 4 or more times per year Do you belong to any clubs or organizations such as moravian groups unions, fraternal or athletic groups, or school groups: no Total score: 3 Score interpretation: A score of greater than or equal to 2 indicates the lowest level of social isolation. Little interest or pleasure in doing things: not at all Feeling down, depressed, or hopeless: not at all Feel stressed/tense/nervous/anxious/difficulty sleeping: not at all Due to disability, difficulty making decisions: No Do you think of yourself as: straight/heterosexual Gender Identity: female Exam Narrative Exam Narrative: Nurses notes and vital signs reviewed and patient is not hypoxic. General: Well-appearing and in no apparent distress. Skin: Warm, dry, no pallor noted. No rash. Head: Normocephalic, atraumatic. Neck: Supple, non-tender. Eye: Pupils are equal, round and EOMI. No scleral icterus. Ears, Nose, Mouth, and Throat: TM are clear, no nasal mucosal hypertrophy. Oral mucosa is moist, no posterior oropharynx erythema, uvula is mid-line Cardiovascular: Regular Rate and Rhythm without murmur, gallop or rub. Respiratory: No accessory muscle use or respiratory distress. Lungs are clear to auscultation, no wheezing, rales or rhonchi Chest Wall: no tenderness Back: No midline thoracic or lumbar vertebral tenderness. No CVA tenderness Musculoskeletal: normal ROM, no calf or popliteal tenderness, no lower extremity edema/swelling GI: Abdomen is soft, non-distended. Normal bowel sounds. No masses appreciated. No tenderness to palpation. No rebound, guarding, or rigidity noted. Neurological: A&O x4. No cranial nerve dysfunction observed. . Moves all extremities. Sensation intact. Psychiatric: Cooperative and interactive. Normal mood and affect. Constitutional Vital Signs, click to edit/add: Last Vital Signs Temp 98.4 F 10/28/24 17:48 Pulse 107 H 10/28/24 17:48 Resp 16 10/28/24 17:48 BP 127/73 10/28/24 17:48 Pulse Ox 96 10/28/24 17:48 O2 Del Method Room Air 10/28/24 17:48 Course Vital Signs Vital signs: Vital Signs Temperature 97.9 F 10/28/24 13:41 Pulse Rate 130 H 10/28/24 13:41 Respiratory Rate 18 10/28/24 13:41 Blood Pressure 116/73 10/28/24 13:41 Pulse Oximetry 99 10/28/24 13:41 Oxygen Delivery Method Room Air 10/28/24 13:41 Temperature 98.4 F 10/28/24 17:48 Pulse Rate 107 H 10/28/24 17:48 Respiratory Rate 16 10/28/24 17:48 Blood Pressure 127/73 10/28/24 17:48 Pulse Oximetry 96 10/28/24 17:48 Oxygen Delivery Method Room Air 10/28/24 17:48 MDM - Extremity (Nontraumatic) MDM Narrative Medical decision making narrative: The patient EKG in the ER showing sinus tachycardia with a heart rate of [address] elevation or depression CBC and chemistry showed that the patient have a low potassium low magnesium and low calcium The patient have no acute kidney injury at the moment and she was started on p.o. potassium in addition to IV magnesium Urinalysis showed UTI CT of the head showed no acute pathology Patient was started on ceftriaxone after being provided with 500 cc of IV fluid The patient will be admitted for further evaluation management Patient case was discussed with and he agreed on admitting the patient Lab Data Labs: Lab Results 10/28/24 10/28/24 Range/Units 14:25 15:50 WBC 9.7 (4.0-11.0) 10^3/uL RBC 3.36 L (4.20-5.40) 10^6/uL Hgb 10.2 L (12.0-16.0) g/dL Hct 32.0 L (36.0-48.0) % MCV 95.2 (81.0-99.0) fL MCH 30.4 (26.7-34.0) pg MCHC 31.9 (29.9-35.2) g/dL RDW 15.9 H (11.0-15.0) % Plt Count 294 (150-450) 10^3/uL MPV 8.7 L (9.5-13.5) fL Neut % (Auto) 74.5 (43.0-75.0) % Lymph % (Auto) 16.6 L (20.5-60.0) % [place] % (Auto) 7.2 (1.7-12.0) % Eos % (Auto) 0.8 L (0.9-7.0) % Baso % (Auto) 0.5 (0.2-2.0) % Neut # (Auto) 7.2 H (1.4-6.5) 10^3/uL Lymph # (Auto) 1.6 (1.2-3.8) 10^3/uL [place] # (Auto) 0.7 (0.3-0.8) 10^3/uL Eos # (Auto) 0.1 (0.0-0.7) 10^3/uL Baso # (Auto) 0.1 (0.0-0.1) 10^3/uL Abs Immat Gran (auto) 0.04 H (0.00-0.03) 10^3/uL Imm/Tot Granulo (auto) 0.4 (0.0-0.5) % Sodium 144 (136-145) mmol/L Potassium 2.5 L* (3.5-5.1) mmol/L Chloride 105 (98-107) mmol/L Carbon Dioxide 28.1 (21.0-32.0) mmol/L Anion Gap 13.4 BUN 13.0 (7.0-18.0) mg/dL Creatinine 0.86 (0.55-1.02) mg/dL Est GFR ( Amer) >60 (>=60 mL/min/1.73m^2) Est GFR (Non-Af Amer) >60 (>=60 mL/min/1.73m^2) BUN/Creatinine Ratio 15.1 Glucose 84 (74-106) mg/dL Calcium 5.8 L* (8.5-10.1) mg/dL Magnesium 1.3 L (1.8-2.4) mg/dL Total Bilirubin 0.3 (0.2-1.0) mg/dL AST 20 (15-37) U/L ALT 13 L (14-59) U/L Alkaline Phosphatase 58 (46-116) U/L Troponin I High Sens 7.2 (4.0-51.3) pg/mL Total Protein 6.5 (6.4-8.2) g/dL Albumin 2.7 L (3.4-5.0) g/dL Globulin 3.8 g/dL Albumin/Globulin Ratio 0.7 Urine Color Yellow (YELLOW) Urine Clarity Cloudy A (CLEAR) Urine pH 6.0 (5.0-9.0) Ur Specific [place] 1.025 (1.005-1.025) Urine Protein 30 A (NEG/TRACE) mg/dL Urine Glucose (UA) Negative (NEGATIVE) mg/dL Urine Ketones Negative (NEGATIVE) mg/dL Urine Occult Blood Small A (NEGATIVE) Urine Nitrite Positive A (NEGATIVE) Urine Bilirubin Negative (NEGATIVE) Urine Urobilinogen 0.2 (0.2-1.0) EU/dL Ur Leukocyte Esterase Small A (NEGATIVE) Urine RBC 0-2 (0-2) #/HPF Urine WBC 50-75 A (NONE SEEN) #/HPF Ur Squamous Epith Cells Few A (NONE/RARE) #/LPF Urine Crystals None seen (None Seen) #/HPF Urine Bacteria Large A (NONE SEEN) #/HPF Urine Casts None seen (NONE SEEN) #/LPF Urine Mucus None seen (NONE SEEN) Ur Culture Indicated? Yes Discharge Plan Discharge Chief Complaint: Extremity Problem, Nontraumatic Clinical Impression: Adult failure to thrive, Hypocalcemia, Hypomagnesemia, Hypokalemia Time of Disposition Decision: 17:12 Prescriptions / Home Meds: No Action acetaminophen 325 mg Tablet 650 mg PO Q4H PRN (Reason: Pain 1-4) 15 Days Qty: 30 0RF levothyroxine 88 mcg tablet 88 mcg PO DAILY Qty: 30 0RF calcitriol 0.25 mcg capsule 0.25 mcg PO QDAY atorvastatin 20 mg tablet 20 mg PO DAILY gabapentin 300 mg capsule 600 mg PO BID pramipexole 0.25 mg tablet 0.25 mg PO BID trihexyphenidyl 2 mg tablet 2 mg PO BID Print Language: Vietnamese Referrals: Seema Sutherland NP [Primary Care Provider] - 1 week
--- NOTE | 2024-10-28 16:13 | CT_ITS ---
The [address] [address] Patient Name: NARCISO VELASQUEZ MRN: [id number] date: 1940 Sex: F Assigned Patient Location: ER Current Patient Location: ER Accession/Order Number: [id number] Exam Date: 10/28/2024 16:11 Report Date: 10/28/2024 16:48 At the request of: JOYCE DELGADO Procedure: CT head/brain wo con EXAMINATION: CT head/brain wo con HISTORY: weakness right side COMPARISON: CT head 08/07/2024 TECHNIQUE: Axial CT images were obtained without IV contrast. Dose reduction techniques were achieved by using automated exposure control and/or adjustment of mA and/or kV according to patient size and/or use of iterative reconstruction technique. FINDINGS: BRAIN: No edema, hemorrhage, mass, acute infarction, or inappropriate atrophy. CSF SPACES: No hydrocephalus, subarachnoid hemorrhage, or mass. Appropriate for age. SKULL: No fracture, mass, or other significant visible lesion. SINUSES: Mucosal thickening within left maxillary sinus. ORBITS: No appreciable abnormality on the limited views. OTHER: Negative CT/CT head/brain wo con IMPRESSION: 1. No intracranial hemorrhage or CT evidence of acute ischemia. 2. Age consistent chronic changes. 3. Left maxillary chronic sinusitis. Electronically authenticated by: JAYLEEN GREER Date: 10/28/2024 16:48
[2024-10-28 16:27] LABS: Bilirubin Urine NEGATIVE (NEGATIVE); Blood Urine SMALL (NEGATIVE); Clarity Urine CLOUDY (CLEAR); Color Urine YELLOW (YELLOW); Glucose Urine UA NEGATIVE (NEGATIVE); Ketones Urine NEGATIVE (NEGATIVE); Leukocyte Esterase Urine SMALL (NEGATIVE); Nitrite Urine POSITIVE (NEGATIVE); Protein Urine 30 mg/dL (NEG/TRACE); Specific Gravity Urine 1.025 (1.005-1.025); Urobilinogen Urine 0.2 EU/dL (0.2-1.0)
[2024-10-28 16:29] LABS: Urine Microscopic Indicated YES
[2024-10-28 16:36] LABS: Bacteria Urine LARGE #/HPF (NONE SEEN); Mucus Urine NONE SEEN (NONE SEEN); RBC Urine 0-2 #/HPF (0-2); WBC Urine 50-75 #/HPF (NONE SEEN)
[2024-10-28 16:37] LABS: Cast Seen? NONE SEEN #/LPF (NONE SEEN); Crystals Seen? None Seen #/HPF (None Seen); Squamous Epithelial Cell Urine FEW #/LPF (NONE/RARE); Urine Culture Indicated YES
[2024-10-28] MEDS: POTASSIUM BICARBONATE/CIT 25 MEQ TABLET EFF 50 MEQ PO (16:37)
[2024-10-28] MEDS: 0.9 % SODIUM CHLORIDE 1,000 ML 500 ML IV (18:27)
[2024-10-28] MEDS: CEFTRIAXONE 1,000 MG in 0.9 % SODIUM CHLORIDE 50 ML 100 MG IV (18:36)
--- NOTE | 2024-10-28 19:03 | P.HP_ITS ---
HPI H&P: HPI History of Present Illness Chief complaint: RIGHT SIDE GOING NUMB UTI Failure To Thrive Narrative: Patient presented to emergency room describing some right-sided weakness. Relates more generalized weakness, this has been progressive since she was discharged from rehabilitation facility. In the emergency room found to have significant weakness significant electrolyte disturbances with severe hypokalemia, hypocalcemia, hypo-Magnesemia and acute UTI I saw patient in the emergency room, resting comfortably in bed, no specific complaints, tremor persisting Opioid HPI Opioid Management Most Recent Pain and Opioid Data: Last Pain Scale 0 08/28/24 07:29 08/28/24 Last Pain Intensity 0 08/26/24 13:56 08/26/24 Last ORT Total Score 0 09/24/24 20:52 09/24/24 Last ORT Risk Category Low Risk 09/24/24 20:52 09/24/24 Review of Systems ROS Status of ROS 10 or more systems reviewed and unremark able except as noted in history and below PFSH PFS Medical History Moderate protein malnutrition ?E44.0 - Moderate protein-calorie malnutrition (ICD-10) Malnutrition ?E46 - Unspecified protein-calorie malnutrition (ICD-10) Hypocalcemia ?E83.51 - Hypocalcemia (ICD-10) Situational anxiety ?F41.8 - Other specified anxiety disorders (ICD-10) Coarse tremors ?G25.2 - Other specified forms of tremor (ICD-10) Hypothyroid ?E03.9 - Hypothyroidism, unspecified (ICD-10) Chronic pain disorder ?G89.4 - Chronic pain syndrome (ICD-10) HLD (hyperlipidemia) ?E78.5 - Hyperlipidemia, unspecified (ICD-10) CAD (coronary artery disease) ?I25.10 - Atherosclerotic heart disease of [place] coronary artery without angina pectoris (ICD-10) Parkinson disease ?G20.A1 - Parkinson's disease without dyskinesia, without mention of fluctuations (ICD-10) High cholesterol ?E78.00 - Pure hypercholesterolemia, unspecified (ICD-10) CVA (cerebral vascular accident) ?I63.9 - Cerebral infarction, unspecified (ICD-10) Surgical History (Updated 08/07/24 @ 13:59 by Melissa San RN) History of bowel resection ?Z90.49 - Acquired absence of other specified parts of digestive tract (ICD- 10) H/O heart artery stent ?Z95.5 - Presence of coronary angioplasty implant and graft (ICD-10) Family History (Updated 08/07/24 @ 15:45 by Tanvi Boles) Father Family history of myocardial infarction Social History (Updated 08/07/24 @ 15:45 by Tanvi Boles) Within the past year, how often did you have a drink containing alcohol: never Within the past year, how often did you have six or more drinks on one occasion: never Score interpretation: A score less than 3 is consistent with normal alcohol consumption. Smoking status: Never smoker Second hand tobacco smoke exposure: No Non-prescribed substance use: denies use Previous occupational history: Retired from [employer] Known occupational exposures/hazards: No Highest level of school completed/degree received: high school graduate Are you now , , , , never or living with a partner: In a typical week, how many times do you talk on the telephone with family, friends, or neighbors: 3 or more times per week How often do you get together with friends or relatives: 3 or more times per week How often do you attend yarsani or sikhism services: 4 or more times per year Do you belong to any clubs or organizations such as yarsani groups unions, fraternal or athletic groups, or school groups: no Total score: 3 Score interpretation: A score of greater than or equal to 2 indicates the lowest level of social isolation. Little interest or pleasure in doing things: not at all Feeling down, depressed, or hopeless: not at all Feel stressed/tense/nervous/anxious/difficulty sleeping: not at all Due to disability, difficulty making decisions: No Do you think of yourself as: straight/heterosexual Gender Identity: female Meds Home Medications and Allergies Home Medications ?Medication ?Instructions ?Recorded ?Confirmed ?Type atorvastatin 20 mg tablet 20 mg PO DAILY 08/07/24 10/28/24 History gabapentin 300 mg capsule 600 mg PO BID 08/07/24 10/28/24 History pramipexole 0.25 mg tablet 0.25 mg PO BID 08/07/24 10/28/24 History trihexyphenidyl 2 mg tablet 2 mg PO BID 08/07/24 10/28/24 History acetaminophen 325 mg tablet 650 mg (2 x 325 mg) PO Q4H PRN 08/28/24 10/28/24 Rx Pain 1-4 15 days #30 tabs levothyroxine 88 mcg tablet 88 mcg PO DAILY #30 tabs 09/25/24 10/28/24 Rx calcitriol 0.25 mcg capsule 0.25 mcg PO QDAY 10/28/24 10/28/24 History Allergies Allergy/AdvReac Type Severity Reaction Status Date / Time No Known Drug Allergies Allergy Verified 08/07/24 11:58 Exam Constitutional Vital Signs, click to edit/add: Last Vital Signs Temp 98.4 F 10/28/24 17:48 Pulse 111 H 10/28/24 18:50 Resp 19 10/28/24 19:00 BP 84/50 L 10/28/24 19:00 Pulse Ox 96 10/28/24 17:48 O2 Del Method Room Air 10/28/24 17:48 Documenting provider has reviewed patient's vital signs: yes Common normals: no apparent distress (Tremor persisting though) Respiratory Common normals: normal respiratory effort and no retractions Cardio Common normals: regular rhythm; irregular rate Rate: tachycardic GI Common normals: Normal to inspection, nondistended, normoactive bowel sounds present and soft to palpation; tender Palpation: tender (LowerAbdomen:) Neuro Common normals: oriented x3, CN's II-XII intact bilaterally and moves all extremities Other: Parkinsonian type tremor Results Labs Labs: Short CBC 10/28/24 Range/Units 14:25 WBC 9.7 (4.0-11.0) 10^3/uL Hgb 10.2 L (12.0-16.0) g/dL Hct 32.0 L (36.0-48.0) % Plt Count 294 (150-450) 10^3/uL BMP 10/28/24 14:25 Sodium 144 Potassium 2.5 L* Chloride 105 Carbon Dioxide 28.1 BUN 13.0 Creatinine 0.86 Glucose 84 Calcium 5.8 L* Liver Function 10/28/24 Range/Units 14:25 Total Bilirubin 0.3 (0.2-1.0) mg/dL AST 20 (15-37) U/L ALT 13 L (14-59) U/L Alkaline Phosphatase 58 (46-116) U/L Albumin 2.7 L (3.4-5.0) g/dL Urine 10/28/24 Range/Units 15:50 Urine Color Yellow (YELLOW) Urine Clarity Cloudy A (CLEAR) Urine pH 6.0 (5.0-9.0) Ur Specific [place] 1.025 (1.005-1.025) Urine Protein 30 A (NEG/TRACE) mg/dL Urine Glucose (UA) Negative (NEGATIVE) mg/dL Assessment and Plan Assessment and Plan (1) Acute UTI: (2) Hypokalemia: (3) Hypomagnesemia: (4) Hypocalcemia: (5) Severe malnutrition: (6) Parkinson disease: Qualifiers: Dyskinesia presence: with dyskinesia Fluctuating manifestations: without fluctuating manifestations Qualified Code(s): G20.B1 - Parkinson's disease with dyskinesia, without mention of fluctuations Plan Admission findings: Sinus tachycardia, respiratory distress, significant anemia, severe hypokalemia, severe hypocalcemia, severe hypomagnesemia, acute UTI Acute UTI likely complicating all of the above-IV antibiotics, culture for urine and blood are pending Hypomagnesemia-supplement, repeat lab later tonight and in a.m. Hypokalemia-repeat lab later on tonight and in a.m. supplement Hypocalcemia-supplement Iron deficiency anemia-monitor daily Parkinson's disease-patient still very sharp, she is able to feed herself despite the tremor. Swallowing without difficulty. Severe protein calorie malnutrition-diet supplement Hypothyroidism-check levels Hypercholesterolemia with coronary artery disease-continue with home medications Admission status: Patient initially be placed in inpatient status, the severity of her calcium, potassium, magnesium will warrant a 2 midnight stay as medically necessary treatment will span 2 midnights. IV antibiotics and culture results will not be back for 2 days as well. Urinary Catheter Management Urinary Catheter Management Straight: Cath placed during this visit: yes Urethral indwelling: No Insertion date: 10/28/24 Insertion time: 15:30
[2024-10-28 19:31] LABS: Free T3 1.91 pg/mL (2.18-3.98)
[2024-10-28 19:33] LABS: Lactate/Lactic Acid 2.3 mmol/L (0.4-2.0)
--- OUTSIDE RECORDS SUMMARY | 2024-10-28 19:37 | XMS_ITS | CCD ---
Author Organization [facility] Care Team Providers Care Occasional Caregiver Name Role Phone DONNA TURCIOS Unavailable Unavailable CARIE REINA Unavailable Unavailable Bean Cantu Primary Care Provider [phone] Puneet Raymundo Attending Provider [phone] Curtis Alcocer Attending Provider [phone] Pratik Tadeo Unavailable Unavailable Unavailable Giovanny, Aba Unavailable Carie Keith Unavailable Alyssa Weller Unavailable PRATIK TADEO Primary Care Physician [phone] Unavailable Unavailable MD Madhav Conrad Attending Provider Seema Sutherland Primary Care Provider [phone] Madhav Conrad Unavailable RODERICK KONG Attending Unavailable RODERICK KONG Admitting Unavailable RODERICK KONG Consulting Unavailable DR PRATIK TADEO Primary Care Unavailable GIOVANNY, ABA Attending Unavailable NADERER, DR PRATIK Meza Primary Care Unavailable GIOVANNY, ABA Consulting Unavailable GIOVANNY, ABA Admitting Unavailable GIOVANNY, ABA Attending Unavailable DR PRATIK TADEO Primary Care Unavailable GIOVANNY, ABA Consulting Unavailable GIOVANNY, ABA Admitting Unavailable AICHHOLZ, SKI PATROL SEEMA Consulting Unavailable NADERER, DR PRAITK Meza Primary Care Unavailable AICHHOLZ, SKI PATROL SEEMA Admitting Unavailable AICHHOLZ, SKI PATROL SEEMA Attending Unavailable ZOEY, DR JAYLEEN Manzo Consulting Unavailable TURCIOS, DR DONNA Deleon Admitting Unavailable TURCIOS, DR DONNA Deleon Attending Unavailable TURCIOS, DR DONNA Deleon Consulting Unavailable AICHHOLZ, SKI PATROL SEEMA Primary Care Unavailable AICHHOLZ, SKI PATROL SEEMA Consulting Unavailable AICHHOLZ, SKI PATROL SEEMA Primary Care Unavailable AICHHOLZ, SKI PATROL SEEMA Admitting Unavailable AICHHOLZ, SKI PATROL SEEMA Attending Unavailable AICHHOLZ, SKI PATROL SEEMA Primary Care Unavailable GIOVANNY, ABA Attending Unavailable GIOVANNY, ABA Consulting Unavailable GIOVANNY, ABA Admitting Unavailable Aichholz, Seema J Primary Care Provider [phone] MD Curtis Alcocer Attending Provider Aichholz, Seema J Primary Care Unavailable Madhav Conrad Attending Unavailable Madhav Conrad Admitting Unavailable Aichholz, Seema J Primary Care Unavailable Curtis Alcocer Attending Unavailable Curtis Alcocer Admitting Unavailable Mahdav Conrad Attending Unavailable Madhav Conrad Admitting Unavailable Aichholz, Seema J Primary Care Unavailable Donna Turcios Attending Unavailable Donna Turcios Referring Unavailable Naderer, Dr. Pratik Welsh Primary Care UnaDonna Blanco Attending Unavailable Donna Turcios Referring Unavailable Naderer, Dr. Pratik Welsh Primary Care DONNA Medina Attending Unavailable NADERERPRATIK Primary Care UnavailMELISSA Shearer Attending Unavailable AICHHOLZ, SEEMA J Primary Care Unavailable JACK VIVEROS Attending Unavailable JACK VIVEROS Referring Unavailable AICHHOLZ, SEEMA J Primary Care Unavailable AICHHOLZ, SEEMA Attending Unavailable DESTINEY DUDLEY Attending Unavailable SERGIO CABRAL Attending Unavailable AICHHOLZ, SEEMA Attending Unavailable Aichholz SYSTEM DEVELOPMENT ENGINEER, Seema Unavailable Sergio Cabral DO Unavailable Pratik Tadeo MD Primary Care Provider [phone] Pratik Tadeo MD Primary Care Provider Med JENKINS Attending Unavailable Med JENKINS Referring Unavailable Med JENKINS Admitting Unavailable Med JENKINS Attending Unavailable Med JENKINS Attending Unavailable Med JENKINS Admitting Unavailable Med JENKINS Attending Unavailable Med JENKINS Referring Unavailable Allergies Allergy Classification Reported Allergen(s) Allergy Type Date of Onset Reaction(s) Facility Opioid Agonists (2 sources) Morphine Drug Allergy 02-18-20 21 Hallucinating [facility] (7 sources) Morphine Derivatives; Translations: [Morphine Derivatives] Allergy to drug (finding) Other -[facility] y [facility] DO Work Phone: (11 sources) fesoterodine Drug Allergy 03-07-20 24 dizziness/light hearded [facility] (20 sources) Morphine; Translations: [MORPHINE] Drug Allergy 01-16-20 18 Unknown [facility] (1 source) Morphine Drug Allergy [facility] (1 source) Morphine Drug Allergy 03-09-20 21 [facility] (12 sources) Fesoterodine fumarate Allergy to substance 03-07-20 [facility] Work Phone: (12 sources) Morphine And Codeine Propensity to adverse reactions 07-25-20 23 [facility] Healthcare Medications Current Medications Medication Drug Class(es) Dates Sig (Normalized) Sig (Original) Acetaminophen (14 sources) Start: 07-16-2019 acetaminophen Refills(s) 0 Start Date: 07/16/19 Status: Ordered aMILoride hydrochloride 5 mg oral tablet (20 sources) Potassium-sparin g Diuretic Start: 01-06-2024 End: 03-07-2024 take 1 tablet by mouth once daily at mealtime Amiloride Active 0 .ROUTE .COMPLEX 90 March 07, 2024 12:00pm TAKE 1 TABLET BY MOUTH WITH FOOD ONCE DAILY Start: 12-01-2022 End: 01-06-2024 aMILoride (Midamor) 5 MG tab let .COMPLEX 03/07/2024 Active amoxicillin 875 mg / clavulanate 125 mg oral tablet (3 sources) Penicillin-class Antibacterial Start: 07-14-2024 End: 07-24-2024 take 1 tablet by mouth in the morning amoxicillin-clavulanate (Augmentin) 875-125 MG tablet Indications: UTI symptoms Take 1 tablet (875 mg) by mouth in the morning and 1 tablet (875 mg) before bedtime. Do all this for 10 days. Take with food. 20 tablet 07/14/2024 07/24/2024 Active atorvastatin 20 mg oral tablet (20 sources) HMG-CoA Reductase Inhibitor Start: 02-09-2018 End: 07-18-2025 take 1 tablet by mouth once daily atorvastatin 20 mg Tab 20 mg = 1 tab(s), Oral, Daily, Refills(s) 0 Start Date: 08/09/21 Status: Ordered biotin 1 mg chewable tablet (12 sources) Biotin 1000 MCG chewable tablet Chew. [...] 09, 2021 10:23am take 1 capsule by [facility] once daily Calcitriol 0.5 MCG TAKE 1 CAPSULE BY MOUTH ONCE DAILY for 90 Active take 1 capsule by [facility] once daily Calcitriol 0.25 MCG TAKE 1 CAPSULE BY MOUTH ONCE DAILY for 90 Active Calcium + D3 600-800 MG-UNIT (10 sources) take 600-800 tablets by mouth twice daily Calcium + D3 600-800 MG-UNIT 1 tablet with a meal Orally bid for 90 day(s) Active Calcium Carbonate (9 sources) End: 08-07-2024 Calcium Carbonate (CALCIUM 600 PO) Take by mouth. 08/07/2024 Discontinued (Therapy completed) Calcium Carbonat e (CALCIUM 600 PO) Take by mouth. Active calcium carbonate 600 mg / cholecalciferol 0.01 mg oral tablet (18 sources) Vitamin D Start: 03-07-2024 Calcium Carb-C holecalciferol 600-10 MG-MCG tablet 1 tablet 03/07/2024 Active [...] day(s), # 10 cap(s), Refills(s) 0, Pharmacy: [facility] [id number], 144, cm, 09/27/23 13:10:00 EST, Height/Length Dosing, 49, kg, 09/27/23 13:10:00 EST, Weight Dosing Start Date: 11/13/23 Stop Date: 11/18/23 Status: Ordered Start: 09-27-2023 take 1 capsule by [facility] twice daily Keflex 500 mg Cap 500 mg = 1 cap(s), Oral, BID, start one day prior to procedure., # 14 cap(s), Refills(s) 0, Pharmacy: [facility] [id number], 144, cm, 09/27/23 13:10:00 EST, Height/Length Dosing, 49, kg, 09/27/23 13:10:00 EST, Weight Dosing Start Date: 09/27/23 Status: Ordered Start: 08-16-2023 take 1 capsule by mo ut twice daily Keflex 500 mg Cap 500 mg = 1 cap(s), Oral, BID, # 14 cap(s), Refills(s) 0, Pharmacy: [facility] [id number], 144, cm, 08/16/23 10:03:00 EDT, Height/Length Dosing, 49, kg, 08/16/23 10:03:00 EDT, Weight Dosing Start Date: 08/16/23 Status: Ordered Start: 05-19-2022 End: 05-29-2022 take 1 capsule by mouth twice daily Keflex 500 mg Cap 500 mg = 1 cap(s), Oral, BID, X 10 day(s), # 20 cap(s), Refills(s) 0, Pharmacy: [facility] [id number], 144, cm, 05/19/22 14:08:00 EDT, Height/Length Dosing, 49, kg, 05/11/22 11:21:00 EDT, Weight Dosing Start Date: 05/19/22 Stop Date: 05/29/22 Status: Ordered Start: 05-11-2022 take 1 capsule by mo [facility] twice daily Keflex 500 mg Cap 500 mg = 1 cap(s), Oral, BID, Pt. to start 3 days prior to bladder botox injections, # 14 cap(s), Refills(s) 0, Pharmacy: [facility] [id number], 144, cm, 05/11/22 11:21:00 EDT, Height/Length Dosing, 49, kg, 05/11/22 11:21:00 EDT, Weight Dosing Start Date: 05/11/22 Status: Ordered ciprofloxacin 500 mg oral tablet (3 sources) Quinolone Antimicrobial Start: 11-13-2023 Cipro 500 mg Tab 500 mg = 1 tab(s), Oral, BID, Take twice daily x5 days starting the day prior to the procedure, # 10 tab(s), Refills(s) 0, Pharmacy: [facility] [id number], 144, cm, 09/27/23 13:10:00 EST, Height/Length Dosing, 49, kg, 09/27/23 13:10:00 EST, Weight Dosing Start Date: 11/13/23 Status: Ordered diclofenac sodium 0.01 mg/mg topical gel (20 sources) Nonsteroidal Anti-inflammatory Drug Start: 03-07-2024 diclofenac sodium 1 % gel As Directed 03/07/2024 Active Start: 03-07-2024 Diclofenac Sod ium (Voltaren Arthritis Pain) 1 % gel Active 2 GM TOPICAL As Directed March 07, 2024 12:00am Voltaren 1 % as directed Externally Active folic acid 1 mg oral tablet (12 sources) folic acid (Folv ite) 1 MG [...] Active hydroxychloroquine sulfate 200 mg oral tablet (13 sources) Antimalarial, Antirheumatic Agent hydroxychloroquine (Plaquenil) 200 [...] mg oral tablet (20 sources) l-Thyroxine Start: 04-17-2024 End: 10-10-2024 take 1 tablet by mouth [...] February 17, 2021 9:58am Start: 02-09-2018 End: 07-18-2024 take 50 ug by mouth once daily [...] # 30 tab(s), Refills(s) 11, Pharmacy: [facility] [id number], 144, cm, 08/16/23 10:03:00 EDT, Height/Length Dosing, [...] # 90 tab(s), Refills(s) 3, Pharmacy: [id number], 144, cm, 12/27/21 11:31:00 EST, Height/Length Dosing, 49.1, kg, 12/27/21 11:31:00 EST, Weight Dosing Start Date: 01/31/22 Status: Ordered Multi Vitamin Daily - (4 sources) take 1 tablet by mouth once daily Multi Vitamin Daily - 1 tablet Orally Once a day Active Multi Vitamin+ (14 sources) Start: Multi Vitamin+ Daily, Refill(s) 0 Start Date: 05/05/21 Status: Ordered nitrofurantoin, macrocrystals 25 mg / nitrofurantoin, monohydrate 75 mg oral capsule (4 sources) Nitrofuran Antibacterial Start: take 1 capsule by mouth twice daily Macrobid 100 mg Cap 100 mg = 1 cap(s), Oral, BID, # 14 cap(s), Refills(s) 0, Pharmacy: [facility] [id number], 144, cm, 05/05/21 13:13:00 EDT, Height/Length Dosing, 43.1, kg, 05/05/21 13:13:00 EDT, Weight Dosing Start Date: 05/05/21 Status: Ordered nitroglycerin 0.4 mg sublingual tablet (20 sources) Nitrate Vasodilator Start: End: nitroglycerin (Nitrostat) 0.4 mg SL tablet Indications: Atherosclerosis of [place] coronary artery of [place] heart without angina pectoris , History of myocardial infarction , Status post coronary angioplasty Place 1 tablet (0.4 mg) under the tongue every 5 minutes if needed for chest pain. 100 tablet 1 07/18/2024 07/18/2025 Active One Daily Adults 50+ (6 sources) One Daily Adults 50+ Active OXcarbazepine 150 mg oral tablet (12 sources) Anti-epileptic Agent Start: End: OXcarbazepine (Trileptal) 150 MG tablet Indications: Pain in both feet , Disturbance of skin sensation TAKE 1 TABLET BY MOUTH EVERY MORNING AND ONCE BEFORE BEDTIME 60 tablet 2 06/24/2024 Active polyethylene glycol 3350 34116 mg powder for oral solution (5 sources) Osmotic Laxative Start: Polyethylene Glycol 3350 (Miralax) 17 gram/dose Powder Active 17 GM PO Daily February 17, 2021 12:00am microencapsulated potassium chloride 20 meq extended release oral tablet (20 sources) Start: take 1 tablet by mouth every twenty-four hours Potassium Chloride ER 20 MEQ 1 tablet with food Orally Once a day for 90 day(s) February, Active Start: 03-10-2021 End: 03-07-2024 potassium chloride CR (Klor- Con M20) 20 MEQ ER tablet Daily 03/07/2024 Active pramipexole dihydrochloride 0.25 mg oral tablet (20 sources) Nonergot Dopamine Agonist Start: 07-26-2024 End: [...] mg) before bedtime. 90 tablet 07/26/2024 Active Start: 06-13-2024 take 2 tablets by mo uth in the morning, then take 2 tablets by mouth in the evening, then take 2 tablets by mouth at bedtime pramipexole (Mirapex) 0.125 MG tablet Indications: Parkinson's disease, unspecified whether dyskinesia present, unspecified whether manifestations fluctuate (CMS/HCC) Take 2 tablets (0.25 mg) by mouth in the morning and 2 tablets (0.25 mg) in the evening and 2 tablets (0.25 mg) before bedtime. 90 tablet 2 06/13/2024 Active take 1 tablet by sumi th three times daily pramipexole (Mirapex) 0.125 mg tablet Take 1 tablet (0.125 mg) by mouth 3 times a day. Active silver sulfADIAZINE 10 mg/ml topical cream (1 source) Sulfonamide Antibacterial Start: 10-18-2021 Silver sulfADIAZINE 1 % 1 application Externally Once a day for 7 days Sep, Active sulfamethoxazole 800 mg / trimethoprim 160 mg oral tablet (2 sources) Dihydrofolate Reductase Inhibitor Antibacterial, Sulfonamide Antimicrobial Start: 06-18-2024 End: 06-28-2024 take 1 tablet by mouth once sulfamethoxazole-tri methoprim (Bactrim DS) 800-160 MG per tablet Indications: UTI symptoms Take 1 tablet by mouth every 12 (twelve) hours for 10 days 20 tablet 06/18/2024 06/28/2024 Active trihexyphenidyl hydrochloride 2 mg oral tablet (20 sources) Start: 05-05-2021 trihexyphenidyl 2 mg Tab Refills(s) 0 Start Date: 05/05/21 Status: Ordered Start: 03-28-2018 take 2 tablets by mo tnh once daily trihexyphenidyl (Artane) 2 mg tablet Take 2 tablets (4 mg) by mouth once daily. 03/28/2018 Active Start: 02-09-2018 take 4 mg by mouth twice daily Trihexyphenidyl Active 4 MG PO Twice daily February 09, 2018 12:00am Completed/Discontinued Medications Medication Drug Class(es) Dates Sig [...] succinate 25 mg extended release oral tablet (20 sources) beta-Adrenergic Hay Start: 03-02-2018 End: 02-17-2021 [...] Date Documented Da te Episodic/Chronic Abdominal pain (18 sources) Flank pain; Translations: [Unspecified abdominal pain] Onset: 04-20-2022 07-04-2019 Episodic Acute cerebrovascular disease (12 sources) Cerebral embolism; Translations: [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] Onset: 03-20-2024 03-20-2024 Chronic Acute myocardial infarction (20 sources) Myocardial infarction; Translations: [Acute myocardial infarction due to left coronary artery occlusion] Onset: 04-06-2022 07-04-2019 Chronic Administrative/social admission (5 sources) Other reduced mobility; Translations: [Impaired mobility and activities of daily living] 04-16-2018 Episodic Calculus of urinary tract (14 sources) Kidney stone 04-27-2020 Episodic Coronary atherosclerosis and other heart disease (20 sources) Coronary arteriosclerosis; Translations: [Atherosclerotic heart disease of [place] coronary artery without angina pectoris] Onset: 03-24-2022 04-16-2018 Chronic Deficiency and other anemia (5 sources) Anemia; Translations: [Anemia, unspecified] 04-16-2018 Episodic Disorders of lipid metabolism (20 sources) Hyperlipidemia; Translations: [Hyperlipidemia, unspecified] Onset: 03-24-2022 04-16-2018 Chronic E Codes: Fall (1 source) Fall Onset: 07-18-2024 Essential hypertension (20 sources) Hypertensive disorder; Translations: [Essential (primary) hypertension] [...] Translations: [Asymptomatic microscopic hematuria] Onset: 05-11-2022 Episodic Malaise and fatigue (12 sources) Chronic fatigue syndrome; Translations: [Chronic fatigue syndrome] Onset: 04-06-2022 03-11-2024 Chronic Miscellaneous mental health disorders (12 sources) Primary insomnia; Translations: [Primary insomnia] Onset: 03-11-2024 03-11-2024 Chronic Mood disorders (14 sources) Mild major depression, single episode; Translations: [...] colonic polyps] Episodic Other connective tissue disease (20 sources) History of total knee arthroplasty; Translations: [...] bladder] Onset: 08-16-2023 Chronic Other endocrine disorders (20 sources) Idiopathic hypoparathyroidism; Translations: [Idiopathic hypoparathyroidism] Onset: 04-06-2022 03-07-2024 Chronic Other endocrine disorders (3 sources) Idiopathic hypoparathyroidism; Translations: [IDIOPATHIC HYPOPARATHYROIDISM] Onset: 09-02-2021 Resolved: 03-24-2022 Chronic Other endocrine disorders (12 sources) Hyperparathyroidism; Translations: [Hyperparathyroidism, unspecified] Onset: 04-06-2022 [...] Episodic Other nutritional; endocrine; and metabolic disorders (20 sources) Hypocalcemia; Translations: [Hypocalcemia] Onset: 06-01-2012 Chronic Other nutritional; endocrine; and metabolic disorders (20 sources) Hypomagnesemia; Translations: [Hypomagnesemia] Onset: 03-11-2024 03-07-2024 [...] Chronic Other nutritional; endocrine; and metabolic disorders (12 sources) Hypercalcemia; Translations: [Hypercalcemia] Onset: 03-11-2024 03-11-2024 Chronic Other nutritional; endocrine; and metabolic disorders (10 sources) Overweight; Translations: [Overweight] Episodic Other upper respiratory disease (12 sources) Chronic rhinitis; Translations: [Chronic rhinitis] Onset: 04-06-2022 03-11-2024 Chronic Paralysis (14 sources) Right hemiparesis; Translations: [Hemiplegia, unspecified affecting right dominant side] Onset: 03-20-2024 03-20-2024 Chronic Parkinson's disease (3 sources) Parkinson's disease; Translations: [Parkinson's disease without dyskinesia, without mention of fluctuations (Multi)] Onset: 01-29-2018 Parkinson`s disease (20 sources) Parkinson's disease; Translations: [Paralysis agitans] Onset: 03-24-2022 03-11-2024 Chronic Residual codes; unclassified (12 sources) Obstructive sleep apnea syndrome; Translations: [Obstructive sleep apnea (adult) (pediatric)] Onset: 03-11-2024 03-11-2024 Chronic Residual codes; unclassified (9 sources) Body mass index 20-24 - normal; Translations: [Body Mass Index between 19-24, adult] Onset: 07-18-2024 07-18-2024 Episodic Residual codes; unclassified (14 sources) H/O: anticoagulant therapy 08-26-2020 Episodic Residual codes; unclassified (1 source) Early satiety Episodic Residual codes; unclassified (2 sources) Body mass index (BMI) 22.0-22.9, adult; Translations: [Body mass index (BMI) 22.0-22.9, adult] Onset: 07-18-2024 Episodic Rheumatoid arthritis and related disease (20 sources) Rheumatoid arthritis; Translations: [Rheumatoid arthritis] Onset: 08-18-2023 Chronic Thyroid disorders (20 sources) Hypothyroidism; Translations: [Hypothyroidism, unspecified] Onset: 04-06-2022 04-16-2018 Chronic Unclassified (2 sources) Chest pain, unspecified / R07.9(ICD-9) Onset: 01-29-2018 Unclassified (1 source) Athscl heart disease of [place] coronary artery w/o ang pctrs / I25.10(ICD-9) Onset: 01-29-2018 Unclassified (1 source) Pure hypercholesterolemia, unspecified / E78.00(ICD-9) Onset: 01-29-2018 Unclassified (1 source) Family hx of ischem heart dis and oth dis of the circ sys / Z82.49(ICD-9) Onset: 01-29-2018 Unclassified (1 source) Other forms of dyspnea / R06.09(ICD-9) Onset: 01-29-2018 Unclassified (1 source) Coronary angioplasty status / Z98.61(ICD-9) Onset: 01-29-2018 Unclassified (14 sources) Asymptomatic microscopic hematuria 08-26-2020 Unclassified (14 sources) Long-term current use of aspirin 10-14-2020 [...] Date Documented Da te Episodic/Chronic Abdominal hernia (12 sources) Disorder of abdominal wall; Translations: [Ventral hernia without obstruction or gangrene] Onset: 06-20-2013 03-11-2024 Episodic Allergic reactions (12 sources) Exogenous dermatitis; Translations: [Unspecified contact dermatitis due to other agents] Onset: 04-06-2022 03-11-2024 Episodic Conditions associated with dizziness or vertigo (16 sources) Dizziness and giddiness; Translations: [Dizziness] Onset: 07-11-2022 Episodic Coronary atherosclerosis and other heart disease (20 sources) Past history of procedure; Translations: [Percutaneous transluminal coronary angioplasty status] Onset: 06-16-2022 03-08-2021 Episodic Fluid and electrolyte disorders (20 sources) Hypokalemia; Translations: [Hypokalemia] Onset: 03-23-2022 Resolved: 03-24-2022 Episodic Inflammatory diseases of female pelvic organs (12 sources) Chronic vaginitis; Translations: [Subacute and chronic vaginitis] Onset: 04-06-2022 03-11-2024 Episodic Neoplasms of unspecified nature or uncertain behavior (1 source) Neoplasm of unspecified behavior of bone, soft tissue, and skin Onset: 10-18-2021 Resolved: 10-18-2021 Episodic Other aftercare (1 source) belt builder (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 of aspirin; Translations: [DETENTION CURRENT USE OF ASPIRIN] Onset: 03-24-2022 Episodic Other aftercare (1 source) Other tool room machinist (current) drug therapy; Translations: [OTH BIOLOGICAL LAB TECHNICIAN CURRENT DRUG THERAPY] Onset: 03-24-2022 Episodic Other circulatory disease (17 sources) History of cerebrovascular accident; Translations: [Personal history of transient ischemic attack (TIA), and cerebral infarction without residual deficits] Onset: 03-11-2024 04-16-2018 Episodic Other circulatory disease (12 sources) Orthostatic hypotension; Translations: [Orthostatic hypotension] Onset: 03-20-2024 03-20-2024 Episodic Other connective tissue disease (12 sources) Pain in both feet; Translations: [Pain in right foot] Onset: 03-20-2024 03-20-2024 Episodic Other gastrointestinal disorders (20 sources) Constipation; Translations: [Constipation, unspecified] Onset: 04-06-2022 03-11-2024 Episodic Other gastrointestinal disorders (1 source) Other constipation; Translations: [OTHER CONSTIPATION] Onset: 04-22-2022 Episodic Other gastrointestinal disorders (12 sources) Dysphagia; Translations: [Dysphagia, unspecified] Onset: 04-06-2022 03-11-2024 Episodic Other nervous system disorders (17 sources) Tremor; Translations: [Tremor, unspecified] Onset: 03-11-2024 04-16-2018 Episodic Other nervous system disorders (12 sources) Skin sensation disturbance; Translations: [Unspecified disturbances of skin sensation] Onset: 03-20-2024 03-20-2024 Episodic Other non-epithelial cancer of skin (12 sources) Squamous cell carcinoma of upper extremity; Translations: [Squamous cell carcinoma of skin of right upper limb, including shoulder] Onset: 04-06-2022 03-11-2024 Episodic Other screening for suspected conditions (not mental disorders or infectious disease) (12 sources) Mammography abnormal; Translations: [Other abnormal and inconclusive findings on diagnostic imaging of breast] Onset: 04-06-2022 03-11-2024 Episodic Residual codes; unclassified (20 sources) Patient encounter status; Translations: [Encounter for prophylactic measures, unspecified] Onset: 03-11-2024 04-16-2018 Episodic Residual codes; unclassified (4 sources) Early satiety; Translations: [Early satiety] Onset: 08-02-2022 Episodic Unclassified (7 sources) Never smoked tobacco; Translations: [Never a smoker] Unclassified (1 source) Onset: 07-18-2024 07-18-2024 Results Test Name Value Interpretation Reference Range Facility Provider Letteron 10-16-2024 Provider Letter Provider Letter October 16, 2024 NARCISO VELASQUEZ [address] [place] [id number] : 1940 Dear Narciso, We have been trying to reach you with no success. You had an appointment with Dr Jenkins on Oct 16, 2024 at 1pm, but on Sep 11 we left you a phone message that explained we needed to reschedule this since he was going to be out of the office. We left another message the morning of Oct 16 since we hadn't heard back from you to reschedule. Please contact the office at the number listed below to get this appointment rescheduled at your earliest convenience. Thank you for your prompt attention to this matter. Call [phone] option 3 to reschedule your appointment. Sincerely, [facility] E COLI SHIGA TOXIN EIAon E COLI SHIGA TOXIN EIA E coli Shiga Toxin EIA [facility] E COLI SHIGA TOXIN EIA Negative [facility] E COLI SHIGA TOXIN EIA [facility] at[facility] COLI SHIGA TOXIN EIA [address], [place] [id number] [facility] E COLI SHIGA TOXIN EIA [facility] Animal Care: Conrado Gates PhD, Phone: [phone] [facility] CONT[facility] BRAIN WO CONT CT BRAIN WO [...] Santo MD on 07/18/2024 10:01 PM Normal [facility] CT CERVICAL SPINE WO CONTon 07-18-2024 [...] Alex Alfonso MD on 07/18/2024 10:01 PM [facility] XR ELBOW RT MIN 3 VWSon 06-30 [...] Alfonso MD on 07/18/2024 10:05 PM Normal [facility] XR SHOULDER RT MIN 2 VWSon [...] Alfonso MD on 07/18/2024 10:02 PM Normal [facility] TBH UA (CLEAN/CATCH) MICROSC OPIC IF INDICATEon 07-10-2024 BILIRUBIN URINE Negative NEGATIVE [facility] BLOOD URINE SMALL Abnormal NEGATIVE [facility] Clarity (U) CLOUDY Abnormal CLEAR [facility] Color (U) YELLOW YELLOW [facility] GLUCOSE URINE UA Negative NEGATIVE mg/dL [facility] Interpretation and review of laboratory results Abnormal [facility] Ketones Ql (U) Negative NEGATIVE mg/dL [facility] Leukocyte esterase Test strip Ql (U) LARGE Abnormal NEGATIVE [facility] NITRITE URINE Positive Abnormal NEGATIVE [facility] pH (U) 6.0 [pH] 5.0 - 9.0 [facility] PROTEIN URINE TRACE NEG/TRACE mg/dL [facility] SPECIFIC GRAVITY URINE 1.015 1.005 - 1.025 [facility] URINE MICROSCOPIC INDICATED YES [facility] UROBILINOGEN URINE 0.2 EU/dL 0.2 - 1.0 EU/dL [facility] CLINISYNC [facility] Lab Reportson 04-11-2024 Lab Reports [id number]#1.00TIF F [facility] Ambulatory Visit Summaryon 0 04-10-2024 Ambulatory [...] JENKINS MD Where: [facility] Patient Educationon 04-10-20 Patient Education [...] stimulation). ? For women, using a medical assistant prn to prevent urine leaks. This is a [...] ? (more content not included)... Normal [facility] Urology Office/Clinic Noteon 04-10-2024 Urology Office/Clinic Note Chief Complaint follow up to botox [facility] Staff 83 year old female here for [...] with voice recognition artificial intelligence software, specifically Syncapse, Mist.io and or ScriptPad. Substitutions may have occurred due to the [...] Information TRINA WATSON, Med Hilario, URL [address] [facility] [address] [place] [address]- Additional Instructions: 6 mos Patient Education Urinary Incontinence Jenny Haley, personally scribed for Dr. Jenkins on 04/10/2024 10:25:32. . Documentation recorded by the scribeJenny, accurately reflects the services(s) I performed and decisions made by me. Authenticated by Dr. Jenkins on 04/10/2024 10:26:50. 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 Normal [facility] Comment on above: Result Comment: Elec tronically Signed By: Med JENKINS MD\.br\Date and Time Signed: 04/10/24 10:27 EDT\.br\Electronically Co-Signed By: Jenny Luna\.br\Date and Time Co-Signed: 04/10/24 10:25 EDT Consent for Procedure/Surger yon 03-13-2024 Consent for Procedure/Surgery [id number]#1.00TIF F [facility] Consent for Procedure/Surgery [id number]#1.00TI FF [facility] Erythrocyte distribution wid th Auto (RBC) [Ratio]on 02-27-2024 Erythrocyte distribution width (RBC) [Ratio] 13.0 % 11.0-15.0 [facility] Estimated glomerular filtrat ion rate (GFR) non- Americanon 02-27-2024 GFR/1.73 sq M.predicted among non-blacks MDRD (S/P/Bld) [Vol rate/Area] 57 mL/min/{1.73_m2} >=60 [facility] Hematocrit Auto (Bld) [Volum e fraction]on 02-27-2024 Hematocrit (Bld) [Volume fraction] 37.0 % 36.0-48.0 [facility] Hemoglobin [Mass/volume] in Bloodon 02-27-2024 Hemoglobin (Bld) [Mass/Vol] 12.1 g/dL 12.0-16.0 [facility] Laboratory - Chemistry and C hemistry - challengeon 02-27-2024 Albumin [Mass/Vol] 3.5 g/dL 3.4-5.0 [facility] Calcium [Mass/Vol] 9.3 mg/dL 8.5-10.1 [facility] Chloride [Moles/Vol] 104 mmol/L 98-107 [facility] CO2 [Moles/Vol] 29.1 mmol/L 21.0-32.0 [facility] Creatinine [Mass/Vol] 0.94 mg/dL 0.55-1.02 [facility] GFR/1.73 sq M.predicted MDRD (S/P/Bld) [Vol rate/Area] mL/min/{1.73_m2} >=60 [facility] Glucose [Mass/Vol] 126 mg/dL 74-106 [facility] Magnesium [Mass/Vol] 1.7 mg/dL 1.8-2.4 [facility] Potassium [Moles/Vol] 4.1 mmol/L 3.5-5.1 [facility] Sodium [Moles/Vol] 141 mmol/L 136-145 [facility] Urea nitrogen [Mass/Vol] 28.0 mg/dL 7.0-18.0 [facility] Urea nitrogen/Creatinine [Mass ratio] 29.8 mg/mg [facility] Leukocytes [#/volume] correc db for nucleated erythrocytes in Blood by Automated counon 02-27-2024 WBC corrected for nucl RBC Auto (Bld) [#/Vol] 9.9 10 3/uL 4.0-11.0 [facility] MCH Auto (RBC) [Entitic mass ]on 02-27-2024 MCH (RBC) [Entitic mass] 32.6 pg 26.7-34.0 [facility] MCHC Auto (RBC) [Mass/Vol]on 02-27-2024 MCHC (RBC) [Mass/Vol] 32.7 g/dL 29.9-35.2 [facility] MCV Auto (RBC) [Entitic vol] on 02-27-2024 MCV (RBC) [Entitic vol] 99.7 fL 81.0-99.0 [facility] No Panel Informationon 02-26 25-Hydroxy Vitamin D Total 34.4 ng/mL [facility] Comment on above: <20 ng/mL Vit D defi cient20-<30 ng/mL Vit D kyhpjyvezvzv60-044 ng/mL Vit D sufficient>100 ng/mL Potential Toxicity Parathyroid Hormone (Intact) 3 pg/mL 15-65 [facility] Comment on above: Performed at: - [address] [id number] Director: Conrado Gates PhD, Phone: [phone] Phosphorus Level 3.6 mg/dL 2.6-4.7 [facility] Platelet mean volume Auto (B ld) [Entitic vol]on 02-27-2024 Platelet mean volume (Bld) [Entitic vol] 9.4 fL 9.5-13.5 [facility] Platelets Auto (Bld) [#/Vol] on 02-27-2024 Platelets (Bld) [#/Vol] 196 10 3/uL 150-450 [facility] RBC Auto (Bld) [#/Vol]on RBC (Bld) [#/Vol] 3.71 10 6/uL 4.20-5.40 [facility] Serum or plasma anion gap de terminationon 02-27-2024 Anion gap [Moles/Vol] 12.0 mmol/L [facility] Consent for Treatmenton 01-29 Consent for Treatment [id number]#1.00TI FF Normal [facility] Inpatient Patient Summaryon 02-26-2024 Inpatient Patient Summary [place] [address] Clinical Summary Person Information Name: NARCISO VELASQUEZ Age: 83 Years : 1940 Sex: Female PCP: PRATIK TADEO MD Marital Status: Race: White Ethnicity: Non- or Language: [place] Visit Id: Visit Reason: URINARY INCONTINENCE Speciality: Acuity: Enc Type: Outpatient Med Service: Surgery Arrival: 02/26/2024 12:39:14 Discharge: Dispo Type: Address: [address] [place] [id number] Provider Notes: Diagnosis: Problems Active Incontinence without sensory awareness Recurrent UTI Incomplete bladder emptying Stress incontinence UTI (urinary tract infection) Urinary retention UTI symptoms Overactive bladder Aspirin long-term use Weak urine stream Weak urinary stream Hx of penitentiary 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 thinners Mixed incontinence Frequency [...] Follow up: With: Address: When: [facility] [address], [place] [id number] [facility] (1) Within 6 weeks Comments: Call for followup appointment, with a bladder scan at that visit to check for bladder emptying. Patient Education Information: EU - Cystoscopy with Botox Injection Discharge Instructions (Custom) [facility] IntraOperative Documentson 0 02-26-2024 IntraOperative Documents [id number] FF Normal [facility] Main OR Intraoperative Recor don 02-26-2024 Main OR Intraoperative Record IntraOp Document Type FTURO Summary Primary Physician: Med JENKINS MD Finalized Date/Time: 02/26/24 13:43:34 Pt. Name: NARCISO VELASQUEZ /Sex: 1940 Female Med Rec #: [id number] Physician: Med JENKINS MD Financial #: [id number] Pt. Type: O Room/Bed: / Admit/Disch: 02/26/24 12:39:14 - Institution: Case Times FTURO Entry 1 Patient Times In Room 02/26/24 13:30:00 Out Room 02/26/24 13:51:00 Procedure Times Start 02/26/24 13:33:00 Stop 02/26/24 13:46:00 Anesthesia Times Last Modified By: Sabrina PETERS, JASPREET, Patricia 02/26/24 13:43:23 Case Attendance FTURO Entry 1 Entry 2 Entry 3 Case Attendee Med JENKINS MD RN, MEEOR, Krishna Moctezuma Role Performed Surgeon - Primary Machine Inker - Primary Scrub - Primary Time In 02/26/24 13:30:00 02/26/24 13:30:00 02/26/24 13:30:00 Time Out 02/26/24 13:51:00 02/26/24 13:51:00 02/26/24 13:51:00 Procedure CYSTOSCOPY LOCAL BOTOX CYSTOSCOPY LOCAL BOTOX CYSTOSCOPY LOCAL BOTOX INJECTION(.) INJECTION(.) INJECTION(.) Comments Last Modified By: Sabrina RN, CNOR, Sabrina RN, CNOR, Sabrina RN, CNOR, Patricia 02/26/24 Patricia 02/26/24 Patricia 02/26/24 13:43:24 [...] Comments: botox 100 units out date03/24 lot [id number] botox 50 units outdate 12/25 lot [id number] General Case Data FTURO Pre-Care Text: Classifies [...] JASPREET Bennett RN, Ruthann 02/26/24 13:43 Normal [facility] Main OR Preoperative Recordo n 02-26-2024 Main OR Preoperative Record Holding Area Document Type FTURO Summary Primary Physician: Med JENKINS MD Finalized Date/Time: 02/26/24 13:13:19 Pt. Name: NARCISO VELASQUEZ Derrick Tellez./Sex: 1940 Female Med Rec #: [id number] Physician: Med JENKINS MD Financial #: [id number] Pt. Type: O Room/Bed: / Admit/Disch: 02/26/24 [...] By: Dorie Logan RN 02/26/24 13:13 Normal [facility] Operative Reporton Operative Report Patient: STEPHANIA VELASQUEZ Age: 83 years Sex: Female : 1940 Associated Diagnoses: None Author: Med JENKINS MD Procedure Operative Information Details: Date/ Time: 02/26/2024 13:46:00. Pre-Op Dx: Overactive bladder (SQN49-CP N32.81, Working, Medical), Urgency incontinence (ZVO64-HO N39.41, Working, Medical). Post-Op Dx: Same. Anesthesia [...] Follow up arranged, F/U six weeks. Normal [facility] Comment on above: Result Comment: Elec tronically Signed By: Med JENKINS MD\.br\Date and Time Signed: 02/26/24 13:51 EDT Outpatient Surgery Discharge Instructionon 02-26-2024 Outpatient Surgery Discharge Instruction [id number]#[id number] FF Normal [facility] Outpatient Surgery Discharge Instruction [address] [address] Patient Discharge Instructions PERSON INFORMATION [...] up: With: Address: When: Med JENKINS [address] [place] [address], [address], [place] [phone] Business (1) Within 6 weeks Comments: Call [...] to serve you. Thank you for choosing [facility] Normal [facility] C Urineon 11-16-2023 Bacteria identified Cx [...] Locations R1: This test was performed at: [facility], [address] [place] [address], [id number]- , [place], [facility] Comment on above: Performed By: #### 2 [id number] ####[facility] [address] [place] [address] Consent for Treatmenton 10-30 Consent for Treatment [id number]#1.00TIF F [facility] Inpatient Patient Summaryon 11-13-2023 Inpatient Patient Summary [address] [address] Clinical Summary Person Information Name: NARCISO VELASQUEZ Age: 82 Years : 1940 Sex: Female PCP: PRATIK TADEO MD Marital Status: Race: White Ethnicity: Non- or Language: [place] Visit Id: Visit Reason: URINARY INCONTINENCE Speciality: Acuity: Enc Type: Outpatient Med Service: Surgery Arrival: 11/13/2023 13:31:33 Discharge: Dispo Type: Address: [address] [place] [phone] Provider Notes: Diagnosis: Problems Active Incontinence without sensory awareness Recurrent UTI Incomplete bladder emptying Stress incontinence UTI (urinary tract infection) Urinary retention UTI symptoms Overactive bladder Aspirin long-term use Weak urine stream Weak urinary stream 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 My airframe and powerplant mechanic will call you to get you back on the books for the Botox injection. Patient Education Information: Normal [facility] Main OR Preoperative Recordo n 11-13-2023 Main OR Preoperative Record Holding Area Document Type FTURO Summary Primary Physician: Finalized Date/Time: 11/13/23 16:40:45 Pt. Name: NARCISO VELASQUEZ /Sex: 1940 Female Med Rec #: [id number] Physician: Med JENKINS MD Financial #: [id number] Pt. 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 Finalized By: JASPREET Bennett RN, Ruthann Document Signatures Signed By: JASPREET Bennett RN, Ruthann 11/13/23 14:43 JASPREET Bennett RN, Ruthann 11/13/23 14:43 Sabrina PETERS, MEEORPatricia 11/13/23 16:40 Normal [facility] Outpatient Surgery Discharge Instructionon 11-13-2023 Outpatient Surgery Discharge Instruction [address] [address] Patient Discharge Instructions PERSON INFORMATION [...] Follow up: With: Address: When: Med JENKINS [address] [place] [address] AVE, [address], [address] [address] [facility] (1) Comments: As you know we were [...] locally and the cranberry is self-explanatory. My airframe and powerplant mechanic will call you to get you back [...] to serve you. Thank you for choosing [facility] Normal [facility] Patient Educationon 11-13-19 Patient Education Normal [facility] Progress Note-Physicianon Progress Note-Physician Patient: NARCISO [...] procedure., # 14 cap(s), Refills(s) 0, Pharmacy: [facility] [id number], 144, cm, 09/27/23 13:10:00 EST, Height/Length Dosing, [...] All Problems Kidney stone / SNOMED CT 375022793 / Confirmed Incontinence without sensory awareness / SNOMED CT 5737870084 / Confirmed Weak urinary stream / SNOMED CT 2858629392 / Confirmed Urge incontinence of urine / SNOMED CT 729319324 / Confirmed Flank pain / SNOMED CT 215811121 / Confirmed Myocardial infarction / SNOMED CT 59208024 / Confirmed Nocturia / SNOMED CT 578627236 / Confirmed Urinary urgency / SNOMED CT 939687072 / Confirmed 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 / SNOMED CT 064636008 / Confirmed Urgency of urination / SNOMED CT 401802077 / Confirmed Urge incontinence / SNOMED CT 424694537 / Confirmed Dysuria / SNOMED CT 06557859 / Confirmed Asymptomatic microscopic hematuria / SNOMED CT 8771356509 / Confirmed Mixed incontinence / SNOMED CT 84035131 / Confirmed Frequency of urination / SNOMED CT 357656873 / Confirmed Weak urine stream / SNOMED CT 649253623 / Confirmed OAB (overactive bladder) / SNOMED CT 4931634876 / Confirmed Aspirin long-term use / SNOMED CT 7907302907 / Confirmed Overactive bladder / SNOMED CT 4003629240 / Confirmed UTI symptoms / SNOMED CT 348691886 / Confirmed Urinary retention / SNOMED CT 730340999 / Confirmed UTI (urinary tract infection) / SNOMED CT 386869292 / Confirmed Stress incontinence / SNOMED CT 793473923 / Confirmed Incomplete bladder emptying / SNOMED CT 039825665 / Confirmed Recurrent UTI / SNOMED CT 626607564 / Confirmed Incontinence without sensory awareness / SNOMED CT 6916556842 / Confirmed, Active Problems (26) Aspirin long-term use Asymptomatic microscopic hematuria Dysuria Flank pain Frequency of urination 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 Additional Plan of Care and/or Course of Treatment: Additional Plan of Care and/or Course of Treatment: Discussed extensively with the patient and her . Due to the presence of what appears to be an active urinary tract infection, have to cancel the B (more content not included)... Normal [facility] Comment on above: Result Comment: Elec tronically Signed By: TRINA WATSON, Med Hilario\.hector\Date and Time Signed: 11/13/23 14:46 EST Office Visit (Cardiology)on 07-20-2023 Follow-up visit Diagnoses/Problems [...] locally, currently stable Donna Turcios MD, [facility] Surgical History Problems History of Angioplasty [...] Recorded: 20Jul2023 10:40AM Heart Rate60, L Radial Jszhubfg869, LUE, Sitting Yrqsmdlhr23, LUE, Sitting Height4 ft 10 in Kjdlyh135 lb BMI Oixilinbtg63.11 kg/m2 BSA Calculated1.36 Tobacco Useb) No Falls [...] Jul 20 2023 12:36PM EST (Author) Normal [employer] Tobacco Screening.on 023 Fall risk assessment a) No falls within the last year [facility] DO Work Phone: Tobacco use status CPHS b) No [facility] DO Work Phone: XR calcaneus BIon 07-05-2023 XR calcaneus BI [facility] Main [place] [address] [place] [address] XRay Report Signed Patient: Narciso Velasquez MR#: [id number] : 1940 Acct:[id number] Age/Sex: 82 / F ADM Date: 07/05/23 Loc: ICXD Room: Type: [facility] Attending Dr: Curtis Alcocer MD Copies to: Curtis Alcocer MD Ordering Provider: Curtis Alcocer MD Date of Service: 07/05/23 XR/XR foot BI 2V: BENJIE HEAL/FOOT PAIN ([id number]) XR/XR calcaneus BI: FOOT/HEAL PAIN CLINICAL DATA: [...] Zuly Leon M.D.07/05/2023 5:55 PM Dictation Location: [place] [address] Transcribed By: [facility] 07/05/231754 Dictated By: Zuly Leon MD 07/05/231752 Signed By: 07/05/231754 [facility] Office Visit (Cardiology)on 01-12-2023 Follow-up [...] Metabolic Panel; Status:Active - Retrospective Authorization; Requested for:[id number]; Complete Blood Count; Status:Active - Retrospective Authorization; Requested for:[id number]; Atherosclerosis of coronary artery, Hyperlipidemia ALT - Alanine Aminotransferase, Serum; Status:Active - Retrospective Authorization; Requested for:[id number]; AST; Status:Active - Retrospective Authorization; Requested for:[id number]; Lipid Panel; Status:Active - Retrospective Authorization; Requested for:[id number]; SocHx: Never a smoker Tobacco Use Screening; [...] locally, currently stable Donna Turcios MD, [facility] Surgical History Problems History of Angioplasty [...] Recorded: 12Jan2023 11:13AM Heart Rate88, L Radial Dcawvthc734, LUE, Sitting Erphmftpv07, LUE, Sitting Height4 ft 10 in Srfrqs326 lb BMI Kgygowshpm40.95 kg/m2 BSA Calculated1.38 Tobacco Useb) No PHQ-2 [...] . Pulmo (more content not included)... Normal [employer] Tobacco Screening.on 023 Adult depression screening assessment No [facility] y 250 DO Work Phone: Fall risk assessment a) No falls within the last year [facility] DO Work Phone: Tobacco use status CP b) No [facility] 250 DO Work Phone: PTH INTACTon 11-30-2022 PTH, Intact 3 pg/mL Critically low 15-65 [facility] Comment on above: Performed By: #### R ZEESHAN, MG #### [facility] [address] [place], [place] [address] Dr. Emilie Jeronimo HEMOGRAM AND PLATELon 2022 Hematocrit (Bld) [Volume fraction] 38.0 % Normal 36.0-48.0 [facility] Comment on above: Performed By: #### R ZEESHAN MG #### [facility] [address] [place], [place] [address] Dr. Emilie Jeronimo Hemoglobin (Bld) [Mass/Vol] 12.9 g/dL Normal 12.0-16.0 [facility] Comment on above: Performed By: #### R ENAL, MG #### [facility] [address] [place] [address] Dr. Emilie Jeronimo MCH (RBC) [Entitic mass] 32.5 pg Normal 26.7-34.0 [facility] Comment on above: Performed By: #### R ENAL, MG #### [facility] [address] [place] [address] Dr. Emilie Jeronimo MCHC (RBC) [Mass/Vol] 33.9 g/dL Normal 29.9-35.2 [facility] Comment on above: Performed By: #### R ENMICHELLE, MG #### [facility] [address] [place] [address] Dr. Emilie Jeronimo MCV (RBC) [Entitic vol] 95.7 fL Normal 81.0-99.0 [facility] Comment on above: Performed By: #### R ENAL, MG #### [facility] [address] [place] [address] Dr. Emilie Jeronimo PLT 214 103/ul Normal 150-450 [facility] Comment on above: Performed By: #### R ENMICHELLE, MG #### [facility] [address] [place] [address] Dr. Emilie Jeronimo RBC 3.97 106/ul Critically low 4.20-5.40 [facility] Comment on above: Performed By: #### R ENAL, MG #### [facility] [address] [place] [address] Dr. Emilie Jeronimo WBC 7.7 103/ul Normal 4.0-11.0 [facility] Comment on above: Performed By: #### R ENAL, MG #### [facility] [address] [place] [address] Dr. Emilie Jeronimo MAGNESIUMon 11-29-2022 Magnesium [Mass/Vol] 1.3 mg/dL Critically low 1.8-2.4 [facility] Comment on above: Performed By: #### R ENAL, MG #### [facility] [address] [place] [address] Dr. Emilie Jeronimo RENAL FUNCTION PANELon 11-29 Albumin [Mass/Vol] 3.6 g/dL Normal 3.4-5.[address] [facility] Comment on above: Performed By: #### R ENAL, MG #### [facility] [address] [place] [address] [address] Emilie Jeronimo Calcium [Mass/Vol] 9.4 mg/dL Normal 8.5-10.1 [facility] Comment on above: Performed By: #### R ENAL, MG #### [facility] [address] [place] [address] [address] Emilie Jeronimo Chloride [Moles/Vol] 103 mmol/L Normal 98-107 [facility] Comment on above: Performed By: #### R ENAL, MG #### [facility] [address] [place] [address] Dr. Emilie Jeronimo CO2 [Moles/Vol] 32.5 mmol/L Critically high 21.0-32.0 [facility] Comment on above: Performed By: #### R ENAL, MG #### [facility] [address] [place] [address] Dr. Emilie Jeronimo Creatinine [Mass/Vol] 0.79 mg/dL Normal 0.55-1.02 [facility] Comment on above: Performed By: #### R ENAL, MG #### [facility] [address] [place] [address] Dr. Emilie Jeronimo EGFR-AF ANGUILLAN >60 Normal >=60 [facility] Comment on above: Performed By: #### R ENAL, MG #### [facility] [address] [place] [address] [address] Emilie Jeronimo EGFR-NON AF ANGUILLAN >60 Normal >=60 [facility] Comment on above: Performed By: #### R ENAL, MG #### [facility] [address] [place] [address] Dr. Emilie Jeronimo Glucose [Mass/Vol] 95 mg/dL Normal 74-106 [facility] [place] Comment on above: Performed By: #### R ENAL, MG #### [facility] [address] [place] [address] Dr. Emilie Jeronimo Phosphate [Mass/Vol] 4.0 mg/dL Normal 2.6-4.7 [facility] Comment on above: Performed By: #### R ENAL, MG #### [facility] [address] [place] [address] Dr. Emilie Jeronimo Potassium [Moles/Vol] 3.8 mmol/L Normal 3.5-5.1 [facility] Comment on above: Performed By: #### R ENAL, MG #### [facility] [address] [place] [address] Dr. Emilie Jeronimo Sodium [Moles/Vol] 145 mmol/L Normal 136-[address] [facility] Comment on above: Performed By: #### R ENAL, MG #### [facility] [address] [place] [address] Dr. Emilie Jeronimo Urea nitrogen [Mass/Vol] 17.0 mg/dL Normal 7.0-18.0 [facility] Comment on above: Performed By: #### R ENAL, MG #### [facility] [address] [place] [address] Dr. Emilie Jeronimo UA RANDOM W/MICROSCOPICon BACTERIA SMALL Abnormal NONE SEEN [facility] Comment on above: Performed By: #### R ENAL, MG #### [facility] [address] [place] [address] Dr. Emilie Jeronimo Bilirubin Ql (U) Negative Normal NEGATIVE [facility] Comment on above: Performed By: #### R ENAL, MG #### [facility] [address] [place] [address] Dr. Emilie Jeronimo CAST NONE SEEN Normal NONE SEEN [facility] Comment on above: Performed By: #### R ENAL, MG #### [facility] [address] [place] [address] Dr. Emilie Jeronimo Clarity (U) SL CLOUDY Abnormal CLEAR [facility] Comment on above: Performed By: #### R ENAL, MG #### [facility] [address] [place] [address] Dr. Emilie Jeronimo Color (U) LT. YELLOW Normal YELLOW [facility] Comment on above: Performed By: #### R ENAL, MG #### [facility] [address] [place] [address] Dr. Emilie Jeronimo Crystals LM Nom (Urine sed) NONE SEEN Normal NONE SEEN [facility] Comment on above: Performed By: #### R ENAL, MG #### [facility] [address] [place] [address] Dr. Emilie Jeronimo Epithelial cells LM Ql (Urine sed) RARE Normal NONE SEEN /RARE [facility] Comment on above: Performed By: #### R ENAL, MG #### [facility] [address] [place] [address] Dr. Emilie Jeronimo Glucose Ql (U) Negative Normal NEGATIVE [facility] Comment on above: Performed By: #### R ENAL, MG #### [facility] [address] [place] [address] Dr. Emilie Jeronimo Hemoglobin Ql (U) TRACE-INTACT Abnormal NEGATIVE [facility] Comment on above: Performed By: #### R ENAL, MG #### [facility] [address] [place] [address] Dr. Emilie Jeronimo Ketones Ql (U) Negative Normal NEGATIVE [facility] Comment on above: Performed By: #### R ENAL, MG #### [facility] [address] [place] [address] Dr. Emilie Jeronimo LEUKOCYTES LARGE Abnormal NEGATIVE [facility] Comment on above: Performed By: #### R ENAL, MG #### [facility] [address] [place] [address] Dr. Emilie Jeronimo MUCOUS TRACE Abnormal NONE SEEN [facility] Comment on above: Performed By: #### R ENAL, MG #### [facility] [address] [place] [address] Dr. Emilie Jeronimo Nitrite Ql (U) Positive Abnormal NEGATIVE [facility] Comment on above: Performed By: #### R ENAL, MG #### [facility] [address] [place] [address] Dr. Emilie Jeronimo pH (U) 6.5 [pH] Normal 5-9 [facility] Comment on above: Performed By: #### R ZEESHAN, MG #### [facility] [address] [place] [address] Dr. Emilie Jeronimo RBC 2-5 Abnormal 0-2 [facility] Comment on above: Performed By: #### R ZEESHAN, MG #### [facility] [address] [place] [address] Dr. Emilie Jeronimo SPEC GRAVITY 1.020 Normal 1.005-<=1.025 [facility] Comment on above: Performed By: #### R ZEESHAN, MG #### [facility] [address] [place] [address] Dr. Emilie Jeronimo UA PROTEIN TRACE Normal NEGATIVE/ TRACE [facility] Comment on above: Performed By: #### R ZEESHAN, MG #### [facility] [address] [place] [address] Dr. Emilie Jeronimo Urobilinogen Qn (U) 1.0 {Fareed'U}/dL Normal 0.2 - 1. 0 [facility] Comment on above: Performed By: #### R ZEESHAN, MG #### [facility] [address] [place] [address] Dr. Emilie Jeronimo WBC 20-50 Abnormal NONE SEEN [facility] Comment on above: Performed By: #### R ZEESHAN, MG #### [facility] [address] [place] [address] Dr. Emilie Jeronimo VITAMIN D 25 OHon 11-29-2022 VIT D 25-OH 38.1 ng/mL Normal [facility] Comment on above: Performed By: #### R ENMICHELLE, MG #### [facility] [address] [place] [address] Dr. Emilie Jeronimo VIT D RANGES SEE BELOW Normal [facility] Comment on above: Result Comment: <20 ng/mL Vit D deficient 20 - <30 ng/mL Vit D insufficient 30 - 100 ng/mL Vit D sufficient >100 ng/mL Potential Toxicity Performed By: #### R ENMICHELLE, MG #### [facility] [address] [place] [address] Dr. Emilie Corral 08-02-2022 L ---- Specimen: [id number] Received: 08/02/22 Status: BIANKA Hutchinsperla Num: [id number] Spec Type: Surgical Subm Dr: Madhav Conrad MD Tissues: A Gastric Biopsy (GASTRIC BX) Procedures: HE Stain/2, Gross/Micro L4 Age/ Patient Sex Location Account Attending Physician Narciso Velasquez 81/F [id number] Madhav Conrad MD SPEC NUM: [id number] RECD: 08/02/22 STATUS: BIANKA MEYER NUM: [id number] SHERLYN: 08/02/22 [facility] DR: Madhav Conrad MD ENTERED: 08/02/22 [facility] DR: SPEC TYPE: Surgical DEPT: S ORDERED: [...] findings support the above pathologic diagnosis. Specimen: [id number] Received: 08/02/22 Status: BIANKA Meyer Num: [id number] Spec Type: Surgical Subm Dr: Madhav Conrad MD Tissues: A Gastric Biopsy (GASTRIC BX) Procedures: HE Stain/2, Gross/Micro L4 Patient: Narciso Velasquez [id number] (Continued) Specimen: [id number] Received: 08/02/22 (Continued) Signed (signature on file) Donita Severino MD 08/04/22 1313 Specimen: [id number] Received: 08/02/22 Status: BIANKA Clary Num: [id number] Spec Type: Surgical Subm Dr: Madhav Conrad MD Tissues: A Gastric Biopsy (GASTRIC BX) Procedures: HE Stain/2, Gross/Micro L4 Patient: Narciso Velasquez [id number] (Continued) Specimen: [id number] Received: 08/02/22 (Continued) CPT Codes 53441 Specimen: [id number] Received: 08/02/22 Status: BIANKA Clary Num: [id number] Spec Type: Surgical Subm Dr: Madhav Conrad MD Tissues: A Gastric Biopsy (GASTRIC BX) Procedures: HE Stain/2, Gross/Micro L4 Patient: Narciso Velasquez [id number] (Continued) Signed (signature on file) Donita Severino MD 08/04/22 1313 [facility] COVID-19 FRon 07-29-2022 SARS-CoV-2 (COVID-19) RNA GAUDENCIO+probe Ql (Unsp spec) Negative Normal Negative [facility] Comment on above: Order Comment: 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 This test has not been FDA cleared [...] is terminated or revoked sooner. PERFORMED BY: [place] [address] PATHOLOGIST [employer] OPERATOR CHELSY MAHMOOD M.D. Performed By: #### C OVID 19 [facility] #### [address] COVID-19 Positive/NegativeOr dered By: Madhav Conrad on 07-29-2022 SARS-CoV-2 (COVID-19) N gene GAUDENCIO+probe Ql (Resp) Negative Negative [facility] Comment on above: Testing for SARS-CoV -2 by RT-PCRThis test was developed and its performance characteristics determined by [employer] and validated at the [facility]. This test has not been FDA cleared [...] 07-11-2022 BASO # 0.1 103/ul Normal 0.0-0.1 [facility] Comment on above: Performed By: #### C BC #### [facility] [address] [place] [address] Dr. Emilie Jeronimo Basophils/100 WBC (Bld) 0.6 % Normal 0.2-2.0 [facility] Comment on above: Performed By: #### C BC #### [facility] [address] [place] [address] Dr. Emilie Jeronimo EO # 0.2 103/ul Normal 0.0-0.7 [facility] Comment on above: Performed By: #### C BC #### [facility] [address] [place] [address] Dr. Emilie Jeronimo Eosinophils/100 WBC (Bld) 1.9 % Normal 0.9-7.0 [facility] Comment on above: Performed By: #### C BC #### [facility] [address] [place] [address] Dr. Emilie Jeronimo Erythrocyte distribution width (RBC) [Ratio] 13.2 % Normal 11.0-15.0 [facility] Comment on above: Performed By: #### C BC #### [facility] [address] [place] [address] Dr. Emilie Jeronimo Hematocrit (Bld) [Volume fraction] 37.9 % Normal 36.0-48.0 [facility] Comment on above: Performed By: #### C BC #### [facility] [address] [place] [address] Dr. Emilie Jeronimo Hemoglobin (Bld) [Mass/Vol] 12.2 g/dL Normal 12.0-16.0 [facility] Comment on above: Performed By: #### C BC #### [facility] [address] [place] [address] Dr. Emilie Jeronimo IG # 0.03 10e3/ul Normal 0.00-0.03 [facility] Comment on above: Performed By: #### C BC #### [facility] [address] [place] [address] Dr. Emilie Jeronimo IG % 0.4 % Normal 0.0-0.5 [facility] Comment on above: Performed By: #### C BC #### [facility] [address] [place] [address] Dr. Emilie Jeronimo LYMPH # 2.3 103/ul Normal 1.2-3.8 [facility] Comment on above: Performed By: #### C BC #### [facility] [address] [place] [address] Dr. Emilie Jeronimo Lymphocytes/100 WBC (Bld) 29.0 % Normal 20.5-60.0 [facility] Comment on above: Performed By: #### C BC #### [facility] [address] [place] [address] Dr. Emilie Jeronimo MANUAL DIFF REQ NO Normal [facility] Comment on above: Performed By: #### C BC #### [facility] [address] [place] [address] Dr. Emilie Jeronimo MCH (RBC) [Entitic mass] 32.4 pg Normal 26.7-34.0 [facility] Comment on above: Performed By: #### C BC #### [facility] [address] [place] [address] Dr. Emilie Jeronimo MCHC (RBC) [Mass/Vol] 32.2 g/dL Normal 29.9-35.2 [facility] Comment on above: Performed By: #### C BC #### [facility] [address] [place] [address] Dr. Emilie Jeronimo MCV (RBC) [Entitic vol] 100.5 fL Critically high 81.0-99.0 [facility] Comment on above: Performed By: #### C BC #### [facility] [address] [place] [address] Dr. Emilie Jeronimo MONO # 0.6 103/ul Normal 0.3-0.8 [facility] Comment on above: Performed By: #### C BC #### [facility] [address] [place] [address] Dr. Emilie Jeronimo Monocytes/100 WBC (Bld) 7.9 % Normal 1.7-12.0 [facility] Comment on above: Performed By: #### C BC #### [facility] [address] [place] [address] Dr. Emilie Jeronimo NEUT # 4.7 103/ul Normal 1.4-6.5 [facility] Comment on above: Performed By: #### C BC #### [facility] [address] [place] [address] Dr. Emilie Jeronimo Neutrophils/100 WBC (Bld) 60.2 % Normal 43.0-75.0 [facility] Comment on above: Performed By: #### C BC #### [facility] [address] [place] [address] Dr. Emilie Jeronimo Platelet mean volume (Bld) [Entitic vol] 10.0 fL Normal 9.5-13.5 [facility] Comment on above: Performed By: #### C BC #### [facility] [address] [place] [address] Dr. Emilie Jeronimo PLT 234 103/ul Normal 150-450 [facility] Comment on above: Performed By: #### C BC #### [facility] [address] [place] [address] Dr. Emilie Jeronimo RBC 3.77 106/ul Critically low 4.20-5.40 [facility] Comment on above: Performed By: #### C BC #### [facility] [address] [place] [address] Dr. Emilie Jeronimo WBC 7.8 103/ul Normal 4.0-11.0 [facility] Comment on above: Performed By: #### C BC #### [facility] [address] [place] [address] Dr. Emilie Jeronimo FREE T4on 07-11-2022 Free T4 [Mass/Vol] 0.79 ng/dL Normal 0.76-1.46 [facility] [place] Comment on above: Performed By: #### R ZEESHAN, MG #### [facility] [address] [place] [address] Dr. Emilie Jeronimo PROF 14(COMP METB)on 022 Albumin [Mass/Vol] 3.7 g/dL Normal 3.4-5.[address] [facility] Comment on above: Performed By: #### R ZEESHAN, MG #### [facility] [address] [place] [address] Dr. Emilie Jeronimo Albumin/Globulin [Mass ratio] 1.2 {ratio} Normal [facility] Comment on above: Performed By: #### R ZEESHAN, MG #### [facility] [address] [place] [address] Dr. Emilie Jeronimo ALP [Catalytic activity/Vol] 53 U/L Normal 46-116 [facility] Comment on above: Performed By: #### R ZEESHAN, MG #### [facility] [address] [place] [address] Dr. Emilie Jeronimo ALT [Catalytic activity/Vol] 26 U/L Normal 14-59 [facility] Comment on above: Performed By: #### R ZEESHAN, MG #### [facility] [address] [place] [address] Dr. Emilie Jeronimo Anion gap [Moles/Vol] 8.9 mmol/L Normal [facility] Comment on above: Performed By: #### R ENMICHELLE, MG #### [facility] [address] [place] [address] Dr. Emilie Jeronimo AST [Catalytic activity/Vol] 18 U/L Normal 15-37 [facility] Comment on above: Performed By: #### R ZEESHAN, MG #### [facility] [address] [place] [address] Dr. Emilie Jeronimo Bilirubin [Mass/Vol] 0.3 mg/dL Normal 0.2-1.0 [facility] Comment on above: Performed By: #### R ENMICHELLE, MG #### [facility] [address] [place] [address] Dr. Emilie Jeronimo Calcium [Mass/Vol] 9.1 mg/dL Normal 8.5-10.[address] [facility] Comment on above: Performed By: #### R ENAL, MG #### [facility] [address] [place] [address] Dr. Emilie Jeronimo Chloride [Moles/Vol] 104 mmol/L Normal 98-107 [facility] Comment on above: Performed By: #### R ENMICHELLE, MG #### [facility] [address] [place] [address] Dr. Emilie Jeronimo CO2 [Moles/Vol] 34.8 mmol/L Critically high 21.0-32.0 [facility] Comment on above: Performed By: #### R ENAL, MG #### [facility] [address] [place] [address] Dr. Emilie Jeronimo Creatinine [Mass/Vol] 0.73 mg/dL Normal 0.55-1.02 [facility] Comment on above: Performed By: #### R ENMICHELLE, MG #### [facility] [address] [place] [address] Dr. Emilie Jeronimo EGFR-AF ANGUILLAN >60 Normal >=60 [facility] Comment on above: Performed By: #### R ENMICHELLE, MG #### [facility] [address] [place] [address] Dr. Emilie Jeronimo EGFR-NON AF ANGUILLAN >60 Normal >=60 [facility] Comment on above: Performed By: #### R ENAL, MG #### [facility] [address] [place] [address] Dr. Emilie Jeronimo Globulin (S) [Mass/Vol] 3.2 g/dL Normal [facility] Comment on above: Performed By: #### R ENMICHELLE, MG #### [facility] [address] [place] [address] Dr. Emilie Jeronimo Glucose [Mass/Vol] 109 mg/dL Critically high 74-106 T [facility] Comment on above: Performed By: #### R ZEESHAN, MG #### [facility] [address] [place] [address] Dr. Emilie Jeronimo Potassium [Moles/Vol] 3.7 mmol/L Normal 3.5-5.1 [facility] Comment on above: Performed By: #### R ZEESHAN, MG #### [facility] [address] [place] [address] Dr. Emilie Jeronimo Protein [Mass/Vol] 6.9 g/dL Normal 6.4-8.[address] [facility] Comment on above: Performed By: #### R ZEESHAN, MG #### [facility] [address] [place] [address] Dr. Emilie Jeronimo Sodium [Moles/Vol] 144 mmol/L Normal 136-[address] [facility] Comment on above: Performed By: #### R ZEESHAN, MG #### [facility] [address] [place] [address] Dr. Emilie Jeronimo Urea nitrogen [Mass/Vol] 20.0 mg/dL Critically high 7.0-18.0 [facility] Comment on above: Performed By: #### R ZEESHAN, MG #### [facility] [address] [place] [address] Dr. Emilie Jeronimo Urea nitrogen/Creatinine [Mass ratio] 27.4 mg/mg Normal [facility] Comment on above: Performed By: #### R ZEESHAN, MG #### [facility] [address] [place] [address] Dr. Emilie Jeronimo TSHon 07-11-2022 TSH 3.616 uIU/mL Normal 0.358-3.740 [facility] Comment on above: Performed By: #### R ZEESHAN, MG #### [facility] [address] [place] [address] Dr. Emilie Jeronimo VITAMIN B12on 07-11-2022 Cobalamin (Vitamin B12) [Mass/Vol] 321.0 pg/mL Normal 193.0-986.0 [facility] Comment on above: Performed By: #### R ENMICHELLE, MG #### [facility] [address] [place] [address] Dr. Emilie Jeronimo Tobacco Screening.on 022 Fall risk assessment a) No falls within the last year [facility] y [address] DO Work Phone: Tobacco use status CPHS b) No [facility] y [address] DO Work Phone: CBC AUTO DIFFon 06-15-2022 BASO # 0.0 103/ul Normal 0.0-0.1 [facility] Comment on above: Performed By: #### C BC #### [facility] [address] [place] [address] Dr. Emilie Jeronimo Basophils/100 WBC (Bld) 0.4 % Normal 0.2-2.0 [facility] Comment on above: Performed By: #### C BC #### [facility] [address] [place] [address] Dr. Emilie Jeronimo EO # 0.2 103/ul Normal 0.0-0.7 [facility] Comment on above: Performed By: #### C BC #### [facility] [address] [place] [address] Dr. Emilie Jeronimo Eosinophils/100 WBC (Bld) 2.4 % Normal 0.9-7.0 [facility] Comment on above: Performed By: #### C BC #### [facility] [address] [place] [address] Dr. Emilie Jeronimo Erythrocyte distribution width (RBC) [Ratio] 12.8 % Normal 11.0-15.0 [facility] Comment on above: Performed By: #### C BC #### [facility] [address] [place] [address] Dr. Emilie Jeronimo Hematocrit (Bld) [Volume fraction] 38.3 % Normal 36.0-48.0 [facility] Comment on above: Performed By: #### C BC #### [facility] [address] [place] [address] Dr. Emilie Jeronimo Hemoglobin (Bld) [Mass/Vol] 12.5 g/dL Normal 12.0-16.0 [facility] Comment on above: Performed By: #### C BC #### [facility] [address] [place] [address] Dr. Emilie Jeronimo IG # 0.04 10e3/ul Critically high 0.00-0.03 [facility] Comment on above: Performed By: #### C BC #### [facility] [address] [address] [address] Emilie Jeronimo IG % 0.6 % Critically high 0.0-0.5 [facility] Comment on above: Performed By: #### C BC #### [facility] [address] [place] [address] Dr. Emilie Jeronimo LYMPH # 1.9 103/ul Normal 1.2-3.8 [facility] Comment on above: Performed By: #### C BC #### [facility] [address] [place] [address] Dr. Emilie Jeronimo Lymphocytes/100 WBC (Bld) 27.9 % Normal 20.5-60.0 [facility] Comment on above: Performed By: #### C BC #### [facility] [address] [place] [address] Dr. Emilie Jeronimo MANUAL DIFF REQ NO Normal [facility] Comment on above: Performed By: #### C BC #### [facility] [address] [place] [address] Dr. Emilie Jeronimo MCH (RBC) [Entitic mass] 32.2 pg Normal 26.7-34.0 [facility] Comment on above: Performed By: #### C BC #### [facility] [address] [place] [address] Dr. Emilie Jeronimo MCHC (RBC) [Mass/Vol] 32.6 g/dL Normal 29.9-35.2 [facility] Comment on above: Performed By: #### C BC #### [facility] [address] [place] [address] Dr. Emilie Jeronimo MCV (RBC) [Entitic vol] 98.7 fL Normal 81.0-99.0 [facility] Comment on above: Performed By: #### C BC #### [facility] [address] [place] [address] Dr. Emilie Jeronimo MONO # 0.5 103/ul Normal 0.3-0.8 [facility] Comment on above: Performed By: #### C BC #### [facility] [address] [place] [address] Dr. Emilie Jeronimo Monocytes/100 WBC (Bld) 7.3 % Normal 1.7-12.0 [facility] Comment on above: Performed By: #### C BC #### [facility] [address] [place] [address] Dr. Emilie Jeronimo NEUT # 4.1 103/ul Normal 1.4-6.5 [facility] Comment on above: Performed By: #### C BC #### [facility] [address] [place] [address] Dr. Emilie Jeronimo Neutrophils/100 WBC (Bld) 61.4 % Normal 43.0-75.0 [facility] Comment on above: Performed By: #### C BC #### [facility] [address] [place] [address] Dr. Emilie Jeronimo Platelet mean volume (Bld) [Entitic vol] 9.2 fL Critically low 9.5-13.5 [facility] Comment on above: Performed By: #### C BC #### [facility] [address] [place] [address] Dr. Emilie Jeronimo PLT 201 103/ul Normal 150-450 [facility] Comment on above: Performed By: #### C BC #### [facility] [facility] [address] [place] [address] Dr. Emilie Jeronimo RBC 3.88 106/ul Critically low 4.20-5.40 [facility] Comment on above: Performed By: #### C BC #### [facility] [address] [place] [address] Dr. Emilie Jeronimo WBC 6.7 103/ul Normal 4.0-11.0 [facility] Comment on above: Performed By: #### C BC #### [facility] [address] [address] [address] Emilie Jeronimo LIPID PROFILEon 06-15-2022 CHOL-HDL RATIO NORM SEE BELOW Normal [facility] Comment on above: Result Comment: 3.3 - 4.4 LOW RISK 4.4 - 7.1 AVERAGE RISK 7.1 - 11.0 MODERATE RISK >11.0 HIGH RISK Performed By: #### A ST, ALT, LIPID, BMP #### [facility] [address] [address] [address] Emilie Jeronimo Cholesterol [Mass/Vol] 124 mg/dL Normal <=200 [facility] Comment on above: Performed By: #### A ST, ALT, LIPID, BMP #### [facility] [address] [address] [address] Emilie Jeronimo Cholesterol in HDL [Mass/Vol] 81 mg/dL Critically high 40-60 [facility] Comment on above: Performed By: #### A ST, ALT, LIPID, BMP #### [facility] [address] [address] [address] Emilie Jeronimo Cholesterol in LDL [Mass/Vol] 27.6 mg/dL Normal [facility] Comment on above: Performed By: #### A ST, ALT, LIPID, BMP #### [facility] [address] [address] [address] Emilie Jeronimo Cholesterol.total/C holesterol in HDL [Mass ratio] 1.5 {ratio} Normal [facility] Comment on above: Performed By: #### A ST, ALT, LIPID, BMP #### [facility] [address] [address] [address] Emilie Jeronimo HDL NORMAL > or = 60 mg/dl - LO W CARDIOVASCULAR RISK <40 mg/dl - HIGH CARDIOVASCULAR RISK Normal [facility] Comment on above: Performed By: #### A ST, ALT, LIPID, BMP #### [facility] [address] [address] [address] Emilie Jeronimo LDL CALC NORMAL SEE BELOW Normal [facility] Comment on above: Result Comment: <100 mg/dl OPTIMAL 100 - 129 mg/dl NEAR OR ABOVE OPTIMAL 130 - 159 mg/dl BORDERLINE HIGH 160 - 189 mg/dl HIGH >190 mg/dl VERY HIGH Performed By: #### A ST, ALT, LIPID, BMP #### [facility] [address] [address] [address] Emilie Jeronimo Triglyceride [Mass/Vol] 77 mg/dL Normal <=150 [facility] Comment on above: Performed By: #### A ST, ALT, LIPID, BMP #### [facility] [address] [address] [address] Emilie Jeronimo VLDL CALC 15.4 mg/dL Normal [facility] Comment on above: Performed By: #### A ST, ALT, LIPID, BMP #### [facility] [address] [address] [address] Emilie Jeronimo PROF CHEM 8 (BAS METB)on Anion gap [Moles/Vol] 12.7 mmol/L Normal [facility] Comment on above: Performed By: #### A ST, ALT, LIPID, BMP #### [facility] [address] [address] [address] Emilie Jeronimo Calcium [Mass/Vol] 8.5 mg/dL Normal 8.5-10.[address] [facility] Comment on above: Performed By: #### A ST, ALT, LIPID, BMP #### [facility] [address] [place] [address] Dr. Emilie Jeronimo Chloride [Moles/Vol] 102 mmol/L Normal 98-107 [facility] Comment on above: Performed By: #### A ST, ALT, LIPID, BMP #### [facility] [address] [address] [address] Emilie Jeronimo CO2 [Moles/Vol] 30.1 mmol/L Normal 21.0-32.0 [facility] Comment on above: Performed By: #### A ST, ALT, LIPID, BMP #### [facility] [address] [address] [address] Emilie Jeronimo Creatinine [Mass/Vol] 0.76 mg/dL Normal 0.55-1.02 [facility] Comment on above: Performed By: #### A ST, ALT, LIPID, BMP #### [facility] [address] [address] [address] Emilie Jeronimo EGFR-AF ANGUILLAN >60 Normal >=60 [facility] Comment on above: Performed By: #### A ST, ALT, LIPID, BMP #### [facility] [address] [address] [address] Emilie Jeronimo EGFR-NON AF ANGUILLAN >60 Normal >=60 [facility] Comment on above: Performed By: #### A ST, ALT, LIPID, BMP #### [facility] [address] [address] [address] Emilie Jeronimo Glucose [Mass/Vol] 97 mg/dL Normal 74-[address] [facility] Comment on above: Performed By: #### A ST, ALT, LIPID, BMP #### [facility] [address] [place] [address] Dr. Emilie Jeronimo Potassium [Moles/Vol] 3.8 mmol/L Normal 3.5-5.1 [facility] Comment on above: Performed By: #### A ST, ALT, LIPID, BMP #### [facility] [address] [address] [address] Emilie Jeronimo Sodium [Moles/Vol] 141 mmol/L Normal 136-[address] [facility] Comment on above: Performed By: #### A ST, ALT, LIPID, BMP #### [facility] [address] [address] [address] Emilie Jeronimo Urea nitrogen [Mass/Vol] 21.0 mg/dL Critically high 7.0-18.0 [facility] Comment on above: Performed By: #### A ST, ALT, LIPID, BMP #### [facility] [address] [place] [address] Dr. Emilie Jeronimo Urea nitrogen/Creatinine [Mass ratio] 27.6 mg/mg Normal [facility] Comment on above: Performed By: #### A ST, ALT, LIPID, BMP #### [facility] [address] [address] [address] Emilie Jeronimo SGOTon 06-15-2022 AST [Catalytic activity/Vol] 22 U/L Normal 15-37 [facility] Comment on above: Performed By: #### A ST, ALT, LIPID, BMP #### [facility] [address] [place], [place] [address] Dr. Emilie Jeronimo SGPTon 06-15-2022 ALT [Catalytic activity/Vol] 21 U/L Normal 14-59 [facility] Comment on above: Performed By: #### A ST, ALT, LIPID, BMP #### [facility] [address] [place], [place] [address] ABD/PELVIS WO CONon [...] JAYLEEN GREER Date: 2022-04-21 10:40 Normal [facility] PTH INTACTon 03-24-2022 PTH, Intact 4 pg/mL Critically low 15-65 [facility] Comment on above: Performed By: #### P THINT #### [facility] [address] [address] [address] Emilie Jeronimo CBC AUTO DIFFon 03-23-2022 BASO # 0.0 103/ul Normal 0.0-0.1 [facility] Comment on above: Performed By: #### R ENAL, MG #### [facility] [address] [address] [address] Emilie Jeronimo Basophils/100 WBC (Bld) 0.5 % Normal 0.2-2.0 [facility] Comment on above: Performed By: #### R ENAL, MG #### [facility] [address] [place] [address] Dr. Emilie Jeronimo EO # 0.1 103/ul Normal 0.0-0.7 [facility] Comment on above: Performed By: #### R ENAL, MG #### [facility] [address] [place] [address] Dr. Emilie Jeronimo Eosinophils/100 WBC (Bld) 1.3 % Normal 0.9-7.0 [facility] Comment on above: Performed By: #### R ENAL, MG #### [facility] [address] [place] [address] Dr. Emilie Jeronimo Erythrocyte distribution width (RBC) [Ratio] 13.0 % Normal 11.0-15.0 [facility] Comment on above: Performed By: #### R ENAL, MG #### [facility] [address] [place] [address] Dr. Emilie Jeronimo Hematocrit (Bld) [Volume fraction] 34.2 % Critically low 36.0-48.0 [facility] Comment on above: Performed By: #### R ENAL, MG #### [facility] [address] [place] [address] Dr. Emilie Jeronimo Hemoglobin (Bld) [Mass/Vol] 11.3 g/dL Critically low 12.0-16.0 [facility] Comment on above: Performed By: #### R ENAL, MG #### [facility] [address] [place] [address] Dr. Emilie Jeronimo IG # 0.02 10e3/ul Normal 0.00-0.03 [facility] Comment on above: Performed By: #### R ENAL, MG #### [facility] [address] [place] [address] Dr. Emilie Jeronimo IG % 0.3 % Normal 0.0-0.5 [facility] Comment on above: Performed By: #### R ENAL, MG #### [facility] [address] [place] [address] Dr. Emliie Jeronimo LYMPH # 1.4 103/ul Normal 1.2-3.8 [facility] Comment on above: Performed By: #### R ENAL, MG #### [facility] [address] [place] [address] Dr. Emilie Jeronimo Lymphocytes/100 WBC (Bld) 24.0 % Normal 20.5-60.0 [facility] Comment on above: Performed By: #### R ENAL, MG #### [facility] [address] [place] [address] Dr. Emilie Jeronimo MANUAL DIFF REQ NO Normal [facility] Comment on above: Performed By: #### R ENAL, MG #### [facility] [address] [place] [address] Dr. Emilie Jeronimo MCH (RBC) [Entitic mass] 32.5 pg Normal 26.7-34.0 [facility] Comment on above: Performed By: #### R ENAL, MG #### [facility] [address] [place] [address] Dr. Emilie Jeronimo MCHC (RBC) [Mass/Vol] 33.0 g/dL Normal 29.9-35.2 [facility] Comment on above: Performed By: #### R ENAL, MG #### [facility] [address] [place] [address] Dr. Emilie Jeronimo MCV (RBC) [Entitic vol] 98.3 fL Normal 81.0-99.0 [facility] Comment on above: Performed By: #### R ZEESHAN, MG #### [facility] [address] [place] [address] Dr. Emilie Jeronimo MONO # 0.5 103/ul Normal 0.3-0.8 [facility] Comment on above: Performed By: #### R ZEESHAN, MG #### [facility] [address] [place] [address] Dr. Emilie Jeronimo Monocytes/100 WBC (Bld) 8.7 % Normal 1.7-12.0 [facility] Comment on above: Performed By: #### R ZEESHAN, MG #### [facility] [address] [place] [address] Dr. Emilie Jeronimo NEUT # 3.9 103/ul Normal 1.4-6.5 [facility] Comment on above: Performed By: #### R ZEESHAN, MG #### [facility] [address] [place] [address] Dr. Emilie Jeronimo Neutrophils/100 WBC (Bld) 65.2 % Normal 43.0-75.0 [facility] Comment on above: Performed By: #### Jovany BYERS, MG #### [facility] [address] [place] [address] Dr. Emilie Jeronimo Platelet mean volume (Bld) [Entitic vol] 10.0 fL Normal 9.5-13.5 [facility] Comment on above: Performed By: #### R ZEESHAN, MG #### [facility] [address] [place] [address] Dr. Emilie Jeronimo PLT 197 103/ul Normal 150-450 [facility] Comment on above: Performed By: #### R ZEESHAN, MG #### [facility] [address] [place] [address] Dr. Emilie Jeronimo RBC 3.48 106/ul Critically low 4.20-5.40 [facility] Comment on above: Performed By: #### R ZEESHAN, MG #### [facility] [address] [place] [address] Dr. Emilie Jeronimo WBC 6.0 103/ul Normal 4.0-11.0 [facility] Comment on above: Performed By: #### R ENMICHELLE, MG #### [facility] [address] [place] [address] Dr. Emilie Jeronimo PROF CHEM 8 (BAS METB)on Anion gap [Moles/Vol] 10.3 mmol/L Normal [facility] Comment on above: Performed By: #### R ENAL, MG #### [facility] [address] [place] [address] Dr. Emilie Jeronimo Calcium [Mass/Vol] 6.1 mg/dL Critically low 8.5-10.1 [facility] Comment on above: Performed By: #### R ENAL, MG #### [facility] [address] [place] [address] Dr. Emilie Jeronimo Chloride [Moles/Vol] 103 mmol/L Normal 98-107 [facility] Comment on above: Performed By: #### R ENAL, MG #### [facility] [address] [place] [address] Dr. Emilie Jeronimo CO2 [Moles/Vol] 31.8 mmol/L Normal 21.0-32.0 [facility] Comment on above: Performed By: #### R ENAL, MG #### [facility] [address] [place] [address] Dr. Emilie Jeronimo Creatinine [Mass/Vol] 0.70 mg/dL Normal 0.55-1.02 [facility] Comment on above: Performed By: #### R ENAL, MG #### [facility] [address] [place] [address] Dr. Emilie Jeronimo EGFR-AF ANGUILLAN >60 Normal >=60 [facility] Comment on above: Performed By: #### R ENAL, MG #### [facility] [address] [place] [address] Dr. Emilie Jeronimo EGFR-NON AF ANGUILLAN >60 Normal >=60 [facility] Comment on above: Performed By: #### R ENAL, MG #### [facility] [address] [address] [address] Emilie Jeronimo Glucose [Mass/Vol] 120 mg/dL Critically high 74-106 [facility] Comment on above: Performed By: #### R ENAL, MG #### [facility] [address] [address] [address] Emilie Jeronimo Potassium [Moles/Vol] 3.1 mmol/L Critically low 3.5-5.1 [facility] Comment on above: Performed By: #### R ENAL, MG #### [facility] [address] [address] [address] Emilie Jeronimo Sodium [Moles/Vol] 142 mmol/L Normal 136-[address] [facility] Comment on above: Performed By: #### R ENAL, MG #### [facility] [address] [place] [address] Dr. Emilie Jeronimo Urea nitrogen [Mass/Vol] 21.0 mg/dL Critically high 7.0-18.0 [facility] Comment on above: Performed By: #### R ENAL, MG #### [facility] [address] [place] [address] Dr. Emilie Jeronimo Urea nitrogen/Creatinine [Mass ratio] 30.0 mg/mg Normal [facility] Comment on above: Performed By: #### R ENAL, MG #### [facility] [address] [place] [address] Dr. Emilie Jeronimo MAGNESIUMon 03-22-2022 Magnesium [Mass/Vol] 1.5 mg/dL Critically low 1.8-2.4 [facility] Comment on above: Performed By: #### R ENAL, MG #### [facility] [address] [place] [address] Dr. Emilie Jeronimo RENAL FUNCTION PANELon 03-22 Albumin [Mass/Vol] 3.6 g/dL Normal 3.4-5.[address] [facility] Comment on above: Performed By: #### R ENAL, MG #### [facility] [address] [place] [address] Dr. Emilie Jeronimo Calcium [Mass/Vol] 6.4 mg/dL Critically low 8.5-10.1 [facility] Comment on above: Performed By: #### R ENAL, MG #### [facility] [address] [place] [address] Dr. Emilie Jeronimo Chloride [Moles/Vol] 101 mmol/L Normal 98-107 [facility] Comment on above: Performed By: #### R ENAL, MG #### [facility] [address] [place] [address] Dr. Emilie Jeronimo CO2 [Moles/Vol] 31.4 mmol/L Normal 21.0-32.0 [facility] Comment on above: Performed By: #### R ENAL, MG #### [facility] [address] [place] [address] Dr. Emilie Jeronimo Creatinine [Mass/Vol] 0.77 mg/dL Normal 0.55-1.02 [facility] Comment on above: Performed By: #### R ENAL, MG #### [facility] [address] [place] [address] Dr. Emilie Jeronimo EGFR-AF ANGUILLAN >60 Normal >=60 [facility] Comment on above: Performed By: #### R ENAL, MG #### [facility] [address] [place] [address] Dr. Emilie Jeronimo EGFR-NON AF ANGUILLAN >60 Normal >=60 [facility] Comment on above: Performed By: #### R ENAL, MG #### [facility] [address] [place] [address] Dr. Emilie Jeronimo Glucose [Mass/Vol] 150 mg/dL Critically high 74-106 T [facility] Comment on above: Performed By: #### R ENAL, MG #### [facility] [address] [place] [address] Dr. Emilie Jeronimo Phosphate [Mass/Vol] 4.8 mg/dL Critically high 2.6-4.7 [facility] Comment on above: Performed By: #### R ENAL, MG #### [facility] [address] [place] [address] Dr. Emilie Jeronimo Potassium [Moles/Vol] 2.7 mmol/L Critically low 3.5-5.1 [facility] Comment on above: Result Comment: TEST REPEATED CRITICAL VALUE VERIFIED Performed By: #### R ZEESHAN, MG #### [facility] [address] [place] [address] Dr. Emilie Jeronimo Sodium [Moles/Vol] 142 mmol/L Normal 136-[address] [facility] Comment on above: Performed By: #### R ENMICHELLE, MG #### [facility] [address] [address] [address] Emilie Jeronimo Urea nitrogen [Mass/Vol] 29.0 mg/dL Critically high 7.0-18.0 [facility] Comment on above: Performed By: #### R ZEESHAN, MG #### [facility] [address] [place] [address] Dr. Emilie Jeronimo VITAMIN D 25 OHon 03-22-2022 VIT D 25-OH 32.5 ng/mL Normal [facility] Comment on above: Performed By: #### V ITAD #### [facility] [address] [place] [address] Dr. Emilie Jeronimo VIT D RANGES SEE BELOW Normal [facility] Comment on above: Result Comment: <20 ng/mL Vit D deficient 20 - <30 ng/mL Vit D insufficient 30 - 100 ng/mL Vit D sufficient >100 ng/mL Potential Toxicity Performed By: #### V ITAD #### [facility] [address] [place] [address] Dr. Emilie Jeronimo Tobacco Screening.on 022 Adult depression screening assessment No [facility] y [facility] DO Work Phone: Fall risk assessment a) No falls within the last year [facility] y [facility] DO Work Phone: Tobacco use status [facility]PH[facility] b) No [facility] y 250 DO Work Phone: [...] n 02-17-2021 Bilirubin Ql (U) Negative Negative [facility] Blood hemoglobin measurement (mass/volume)on 02-17-2021 Hemoglobin (Bld) [Mass/Vol] 12.6 g/dL 11.8-15.4 [facility] Blood leukocytes automated c ount (number/volume)on 02-17-2021 WBC (Bld) [#/Vol] 7.3 10*3/uL 4.5-11.0 [facility] Color Auto (U)on 02-17-2021 Color (U) [...] [#/Vol]on RBC (Bld) [#/Vol] 3.89 10*6/uL 3.60-5.00 [facility] Serum or plasma calcium twan urement (mass/volume)on 02-17-2021 Calcium [Mass/Vol] 7.6 mg/dL 8.2-10.2 [facility] Serum or plasma chloride jewel surement (moles/volume)on 02-17-2021 Chloride [Moles/Vol] 100 mmol/L 95-114 [facility] Serum or plasma glucose twan urement (mass/volume)on 02-17-2021 Glucose [Mass/Vol] 97 mg/dL 70-100 [facility] Comment on above: ADA recommended refe [...] (moles/volume)on 02-17-2021 Sodium [Moles/Vol] 139 mmol/L 136-146 [facility] Serum or plasma total carbon dioxide measurement (moles/volume)on 02-17-2021 CO2 [Moles/Vol] 28.3 mmol/L 22.0-30.0 [facility] Serum or plasma urea nitroge n measurement (mass/volume)on 02-17-2021 Urea nitrogen [Mass/Vol] 22 mg/dL 9- [facility] Specific gravity Auto test s [...] strip (U)on pH (U) 5.0 [pH] 5.0-9.0 [facility] Cesar 03-12-2020 ALT [Catalytic activity/Vol] 16 U/L Normal 7 - 45 [facility] Comment on above: Result Comment: Josee ents treated with Sulfasalazine may generate falsely decreased results for ALT. Performed By: #### A LT #### [address] [address] Jamari 03-12-2020 AST [Catalytic activity/Vol] 22 U/L Normal 9 - 39 [facility] Comment on above: Performed By: #### A ST #### [address] [address] CREATININEon 03-12-2020 Creatinine [Mass/Vol] mg/dL Normal >60 [facility] Comment on above: Result Comment: CALC ULATIONS OF ESTIMATED GFR ARE PERFORMED USING THE MDRD STUDY EQUATION FOR THE IDMS-TRACEABLE CREATININE METHODS. CLIN CHEM 2007;53:766-72 Performed By: #### C REAT #### [address] [address] Creatinine [Mass/Vol] 0.84 mg/dL Normal 0.50 - 1.05 [facility] Comment on above: Performed By: #### C REAT #### [address] [address] ELECTROLYTE PANELon 03-12-20 20 Anion gap [Moles/Vol] 15 mmol/L Normal 10 - 20 [facility] Comment on above: Performed By: #### E LECT #### [address] [address] Chloride [Moles/Vol] 102 mmol/L Normal 98 - 107 [facility] Comment on above: Performed By: #### E LECT #### [address] [address] HCO3 (Bld) [Moles/Vol] 30 mmol/L Normal 21 - 32 [facility] Comment on above: Performed By: #### E LECT #### [address] [address] Potassium [Moles/Vol] 4.0 mmol/L Normal 3.5 - 5.3 [facility] Comment on above: Performed By: #### E LECT #### [address] [address] Sodium [Moles/Vol] 143 mmol/L Normal 136 - 145 [facility] Comment on above: Performed By: #### E LECT #### [address] [address] LIPID PANEL (CORONARY RISK 2 )on 03-12-2020 Cholesterol [Mass/Vol] 99 mg/dL Normal 0 - 199 [facility] Comment on above: Result Comment: . [...] dosing. Performed By: #### L IPID #### [address] [address] Cholesterol in HDL [Mass/Vol] 60.0 mg/dL Normal [facility] Comment on above: Result Comment: . AGE VERY LOW LOW NORMAL HIGH 0-19 Y < 35 < 40 40-45 ---- 20-24 Y ---- < 40 >45 ---- >24 Y ---- < 40 40-60 >60 . Performed By: #### L IPID #### [address] [address] Cholesterol in LDL [Mass/Vol] 23 mg/dL Normal 0 - 99 [facility] Comment on above: Result Comment: . NEAR BORD AGE DESIRABLE OPTIMAL HIGH HIGH VERY HIGH 0-19 Y 0 - 109 --- 110-129 >/= 130 ---- 20-24 Y 0 - 119 --- 120-159 >/= 160 ---- >24 Y 0 - 99 100-129 130-159 160-189 >/=190 . Performed By: #### L IPID #### [address] [address] Cholesterol in VLDL [Mass/Vol] 16 mg/dL Normal 0 - 40 [facility] Comment on above: Performed By: #### L IPID #### [address] [address] Cholesterol.total/C holesterol in HDL [Mass ratio] 1.7 {ratio} Normal [facility] Comment on above: Result Comment: REF VALUES DESIRABLE < 3.4 HIGH RISK > 5.0 Performed By: #### L IPID #### [address] [address] Triglyceride [Mass/Vol] 79 mg/dL Normal 0 - 149 [facility] Comment on above: Result Comment: . [...] dosing. Performed By: #### L IPID #### [address] [address] PARATHYROID HORMONE,INTACTon 03-12-2020 PARATHYROID HORMONE,INTACT < 6.3 Low 18.5 - 88.0 [facility] Comment on above: Result Comment: Josee ents receiving more than 5 mg/day of biotin may have interference in test results. A sample should be taken no sooner than eight hours after previous dose. Contact the testing laboratory for additional information. Performed By: #### P TH #### [address] [address] RENAL FUNCTION PANELon 03-12 Albumin [Mass/Vol] 4.3 g/dL Normal 3.4 - 5.0 [facility] Comment on above: Performed By: #### T SH2 #### [address] [address] Anion gap [Moles/Vol] 16 mmol/L Normal 10 - 20 [facility] Comment on above: Performed By: #### T SH2 #### [address] [address] Calcium [Mass/Vol] 8.2 mg/dL Low 8.6 - 10.3 [facility] Comment on above: Performed By: #### T SH2 #### [address] [address] Chloride [Moles/Vol] 102 mmol/L Normal 98 - 107 [facility] Comment on above: Performed By: #### T SH2 #### [address] [address] Creatinine [Mass/Vol] 0.82 mg/dL Normal 0.50 - 1.05 [facility] Comment on above: Performed By: #### T SH2 #### [address] [address] GFR- AM. >60 Normal >60 [facility] Comment on above: Result Comment: CALC ULATIONS OF ESTIMATED GFR ARE PERFORMED USING THE MDRD STUDY EQUATION FOR THE IDMS-TRACEABLE CREATININE METHODS. CLIN CHEM 2007;53:766-72 Performed By: #### T SH2 #### [address] [address] GFR-NON AM. >60 Normal >60 [facility] Comment on above: Performed By: #### T SH2 #### [address] [address] Glucose [Mass/Vol] 97 mg/dL Normal 74 - 99 [facility] Comment on above: Performed By: #### T SH2 #### [address] [address] HCO3 (Bld) [Moles/Vol] 29 mmol/L Normal 21 - 32 [facility] Comment on above: Performed By: #### T SH2 #### [address] [address] Phosphate [Mass/Vol] 5.3 mg/dL High 2.5 - 4.9 [facility] Comment on above: Result Comment: The performance characteristics of phosphorus testing in heparinized plasma have been validated by the individual laboratory site where testing is performed. Testing on heparinized plasma is not approved by the FDA; however, such approval is not necessary. Performed By: #### T SH2 #### [address] [address] Potassium [Moles/Vol] 3.7 mmol/L Normal 3.5 - 5.3 [facility] Comment on above: Performed By: #### T SH2 #### [address] [address] Sodium [Moles/Vol] 143 mmol/L Normal 136 - 145 [facility] Comment on above: Performed By: #### T SH2 #### [address] [address] Urea nitrogen [Mass/Vol] 23 mg/dL Normal 6 - 23 [facility] Comment on above: Performed By: #### T SH2 #### [address] [address] UREA NITROGENon 03-12-2020 Urea nitrogen [Mass/Vol] 23 mg/dL Normal 6 - 23 [facility] Comment on above: Performed By: #### U TARAS #### [address] [address] VITAMIN D, 25-HYDROXYon 02-27 VITAMIN D, 25-HYDROXY 43 ng/mL Normal [facility] Comment on above: Result Comment: . DEFICIENCY: < 20 NG/ML INSUFFICIENCY: 20-29 NG/ML SUFFICIENCY: 30-100 NG/ML THIS ASSAY ACCURATELY QUANTIFIES THE SUM OF VITAMIN D3, 25-HYDROXY AND VIT D2,25-HYDROXY. Performed By: #### T SH2 #### [address] [address] THYROXINEon 09-17-2019 T4 [Mass/Vol] 8.0 ug/dL Normal 4.5 - 11.1 [facility] Comment on above: Performed By: #### T 4 #### [address] [address] THYROXINE,FREEon 09-17-2019 THYROXINE,FREE 0.70 ng/dL Normal 0.61 - 1.27 [facility] Comment on above: Result Comment: Thyr oxine Free testing is performed using different testing methodology at [facility] than at other [facility]. Direct result comparisons should only be made within the same method. Patients receiving more than 5 mg/day of biotin may have interference in test results. A sample should be taken no sooner than eight hours after previous dose. Performed By: #### T 4FRE #### [address] [address] TSHon 09-17-2019 TSH Qn 6.25 m[IU]/L High 0.44 - 3.98 [facility] Comment on above: Result Comment: TSH testing is performed using different testing methodology at [facility] than at other [facility]. Direct result comparisons should only be made within the same method. Performed By: #### T SH2 #### [address] [address] Vital Signs Date Time Vital Sign Value Performing Clinician Facility 08-07-2024 10:[id number] Body height 144.8 cm Seema Sutherland SYSTEM DEVELOPMENT ENGINEER Work Phone: [facility] 08-07-2024 10:44-040 Body mass index (BMI) [Ratio] 22.55 kg/m2 Seema Sutherland SYSTEM DEVELOPMENT ENGINEER Work Phone: [facility] 08-07-2024 10:44-040 Body temperature 98.8 [degF] Seema Sutherland SYSTEM DEVELOPMENT ENGINEER Work Phone: [facility] 08-07-2024 10:44-040 Body weight 47.27 kg Seema Sutherland SYSTEM DEVELOPMENT ENGINEER Work Phone: [facility] 08-07-2024 10:44-0400 Heart rate 95 /min Seema Koko SYSTEM DEVELOPMENT ENGINEER Work Phone: [facility] 08-07-2024 10:44-0400 Respiratory rate 18 /min Seema Koko SYSTEM DEVELOPMENT ENGINEER Work Phone: [facility] 08-07-2024 10:44-0400 SaO2% (BldA) [Mass fraction] 98 % Seema Koko SYSTEM DEVELOPMENT ENGINEER Work Phone: [facility] 07-18-2024 10:29-0400 Diastolic blood pressure 60 mm[Hg] Donna Turcios MD Work Phone: [facility] 07-18-2024 10:29-0400 Systolic blood pressure 105 mm[Hg] Donna Turcios MD Work Phone: [facility] 07-18-2024 10:06-0400 Body height 146.1 cm Donna Turcios MD Work Phone: [facility] 07-18-2024 10:06-0400 Body mass index (BMI) [Ratio] 22.33 kg/m2 Donna Turcios MD Work Phone: [facility] 07-18-2024 10:06-0400 Body weight 47.63 kg Donna Turcios MD Work Phone: [facility] 07-18-2024 10:06-0400 Heart rate 93 /min Donna Turcios MD Work Phone: [facility] 03-07-2024 11:44-0400 Body height 147.32 cm [facility] 03-07-2024 11:44-0400 Body mass index (BMI) [Ratio] 22.8 kg/m2 [facility] 03-07-2024 11:44-0400 Body temperature 97.6 [degF] [facility] 03-07-2024 11:44-0400 Body weight 49.44 kg [facility] 03-07-2024 11:44-0400 Diastolic blood pressure 60 mm[Hg] [facility] 03-07-2024 11:44-0400 Heart rate 96 /min [facility] 03-07-2024 11:44-0400 Respiratory rate 16 /min [facility] 03-07-2024 11:44-0400 SaO2% (BldA) [Mass fraction] 86 % [facility] 03-07-2024 11:44-0400 Systolic blood pressure 102 mm[Hg] [facility] 07-20-2023 10:40-0400 Body height 147.32 cm Pratik A Naderer Work Phone: [facility] DO Work Phone: 07-20-2023 10:40-0400 Body mass index (BMI) [Ratio] 21.11 kg/m2 Pratik A Naderer Work Phone: [facility] 250 DO Work Phone: 07-20-2023 10:40-0400 Body surface area Derived from formula 1.36 m2 Pratik A Naderer Work Phone: [facility] DO Work Phone: 07-20-2023 10:40-0400 Body weight 45.81 kg Pratik A Naderer Work Phone: [facility] 250 DO Work Phone: 07-20-2023 10:40-0400 Diastolic blood pressure 66 mm[Hg] Pratik A Naderer Work Phone: [facility] DO Work Phone: 07-20-2023 10:40-0400 Heart rate 60 /min Pratik A Naderer Work Phone: [facility] DO Work Phone: 07-20-2023 10:40-0400 Systolic blood pressure 100 mm[Hg] Pratik Bartonerer Work Phone: [facility] DO Work Phone: 02-08-2023 14:00-0400 Body height 147.32 cm Madhav Valerietim Other [facility] Other 02-08-2023 14:00-0400 Body mass index (BMI) [Ratio] 22.57 kg/m2 Madhav Valerietim Other [facility] Other 02-08-2023 14:00-0400 Body weight 48.99 kg Madhav Conrad Other [facility] Other 02-08-2023 14:00-0400 Diastolic blood pressure 60 mm[Hg] Madhav Valerietim Other [facility] Other 02-08-2023 14:00-0400 Systolic blood pressure 105 mm[Hg] Madhav Anamaria Other [facility] Other 01-12-2023 11:13-0400 Body height 147.32 cm Pratik Meza Naderer Work Phone: [facility] DO Work Phone: 01-12-2023 11:13-0400 Body mass index (BMI) [Ratio] 21.95 kg/m2 Pratik Meza Naderer Work Phone: [facility] 250 DO Work Phone: 01-12-2023 11:13-0400 Body surface area Derived from formula 1.38 m2 Pratik Meza Naderer Work Phone: [facility] DO Work Phone: 01-12-2023 11:13-0400 Body weight 47.63 kg Pratik A Naderer Work Phone: [facility] DO Work Phone: 01-12-2023 11:13-0400 Diastolic blood pressure 60 mm[Hg] Pratik Meza Naderer Work Phone: [facility] DO Work Phone: 01-12-2023 11:13-0400 Heart rate 88 /min Pratik Meza Naderer Work Phone: [facility] DO Work Phone: 01-12-2023 11:13-0400 Systolic blood pressure 102 mm[Hg] Pratik Meza Naderer Work Phone: [facility] DO Work Phone: 08-02-2022 13:32-0400 Diastolic blood pressure 62 mm[Hg] Seema Aichholz Work Phone: [facility] 08-02-2022 13:32-0400 Heart rate 63 /min Seema Aichholz Work Phone: [facility] 08-02-2022 13:32-0400 Respiratory rate 18 /min Seema Aichholz Work Phone: [facility] 08-02-2022 13:32-0400 SaO2% (BldA) [Mass fraction] 100 % Seema Aichholz Work Phone: [facility] 08-02-2022 13:32-0400 Systolic blood pressure 122 mm[Hg] Seema Aichholz Work Phone: [facility] 08-02-2022 12:26-0400 Body height 147.32 cm Seema Aichholz Work Phone: [facility] 08-02-2022 12:26-0400 Body temperature 98.3 [degF] Seema Aichholz Work Phone: [facility] 08-02-2022 12:26-0400 Body weight 48.53 kg Seema Sutherland Work Phone: [facility] 06-23-2022 15:29-0400 Body height 147.32 cm Pratik A Naderer Work Phone: [facility] DO Work Phone: 06-23-2022 15:29-0400 Body mass index (BMI) [Ratio] 22.62 kg/m2 Pratik A Naderer Work Phone: [facility] DO Work Phone: 06-23-2022 15:29-0400 Body surface area Derived from formula 1.4 m2 Pratik A Naderer Work Phone: [facility] DO Work Phone: 06-23-2022 15:29-0400 Body weight 49.1 kg Pratik A Naderer Work Phone: [facility] DO Work Phone: 06-23-2022 15:29-0400 Diastolic blood pressure 60 mm[Hg] Pratik A Naderer Work Phone: [facility] DO Work Phone: 06-23-2022 15:29-0400 Heart rate 62 /min Pratik A Naderer Work Phone: [facility] DO Work Phone: 06-23-2022 15:29-0400 Systolic blood pressure 110 mm[Hg] Pratik A Naderer Work Phone: [facility] DO Work Phone: 05-11-2022 11:17-0400 Blood Pressure Location Med JENKINS [facility] 05-11-2022 11:17-0400 Diastolic blood pressure 63 mm[Hg] Med JENKINS [facility] 05-11-2022 11:17-0400 Heart rate 81 /min Med JENKINS [facility] 05-11-2022 11:17-0400 Respiratory rate 16 /min Med JENKINS [facility] 05-11-2022 11:17-0400 Systolic blood pressure 125 mm[Hg] Med JENKINS [facility] 03-24-2022 13:00-0400 Body height 147.32 cm Aba Giovanny Other [facility] Other 03-24-2022 13:00-0400 Body mass index (BMI) [Ratio] 22.28 kg/m2 Aba Giovanny Other [facility] Other 03-24-2022 13:00-0400 Body temperature 97.7 [degF] Aba Giovanny Other [facility] Other 03-24-2022 13:00-0400 Body weight 48.35 kg Aba Giovanny Other [facility] Other 03-24-2022 13:00-0400 Diastolic blood pressure 70 mm[Hg] Aba Giovanny Other [facility] Other 03-24-2022 13:00-0400 Respiratory rate 18 /min Aba Giovanny Other [facility] Other 03-24-2022 13:00-0400 SaO2% (BldA) [Mass fraction] 97 % Aba Giovanny Other [facility] Other 03-24-2022 13:00-0400 Systolic blood pressure 110 mm[Hg] Aba Giovanny Other [facility] Other 12-29-2021 11:00-0500 Body height 147.32 cm Pratik Meza Naderer Work Phone: [facility] Work Phone: 12-29-2021 11:00-0500 Body mass index (BMI) [Ratio] 22.99 kg/m2 Pratik A Naderer Work Phone: [facility] Work Phone: 12-29-2021 11:00-0500 Body surface area Derived from formula 1.41 m2 Pratik A Naderer Work Phone: [facility] Work Phone: 12-29-2021 11:00-0500 Body weight 49.9 kg Pratik A Naderer Work Phone: [facility] [facility] DO Work Phone: 12-29-2021 11:00-0500 Diastolic blood pressure 60 mm[Hg] Pratik A Naderer Work Phone: [facility] [facility] DO Work Phone: 12-29-2021 11:00-0500 Heart rate 68 /min Pratik A Naderer Work Phone: [facility] DO Work Phone: 12-29-2021 11:00-0500 Systolic blood pressure 110 mm[Hg] Pratik Tadeo Work Phone: [facility] [facility] DO Work Phone: 10-18-2021 14:30-0500 Body height 147.32 cm Alyssa Ginty Other [facility] Other 10-18-2021 14:30-0500 Body mass index (BMI) [Ratio] 22.99 kg/m2 Alyssa Ginty Other [facility] Other 10-18-2021 14:30-0500 Body temperature 97.9 [degF] Alyssa Ginty Other [facility] Other 10-18-2021 14:30-0500 Body weight 49.9 kg Alyssa Ginty Other [facility] Other 10-18-2021 14:30-0500 Diastolic blood pressure 49 mm[Hg] Alyssa Ginty Other [facility] Other 10-18-2021 14:30-0500 Respiratory rate 18 /min Alyssa Ginty Other [facility] Other 10-18-2021 14:30-0500 SaO2% (BldA) [Mass fraction] 98 % Alyssa Ginty Other [facility] Other 10-18-2021 14:30-0500 Systolic blood pressure 136 mm[Hg] Alyssa Ginty Other [facility] Other 09-07-2021 12:15-0500 Body height 147.32 cm Carie Keith Other [facility] Other 09-07-2021 12:15-0500 Body mass index (BMI) [Ratio] 22.49 kg/m2 Carie Keith Other [facility] Other 09-07-2021 12:15-0500 Body weight 48.81 kg Carie Keith Other [facility] Other 09-02-2021 13:40-0400 Body height 147.32 cm Aba Giovanny Other [facility] Other 09-02-2021 13:40-0400 Body mass index (BMI) [Ratio] 22.53 kg/m2 Aba Giovanny Other [facility] Other 09-02-2021 13:40-0400 Body temperature 96.9 [degF] Aba Giovanny Other [facility] Other 09-02-2021 13:40-0400 Body weight 48.9 kg Aba Giovanny Other [facility] Other 09-02-2021 13:40-0400 Diastolic blood pressure 72 mm[Hg] Aba Giovanny Other [facility] Other 09-02-2021 13:40-0400 Respiratory rate 18 /min Aba Giovanny Other [facility] Other 09-02-2021 13:40-0400 SaO2% (BldA) [Mass fraction] 98 % Aba Giovanny Other [facility] Other 09-02-2021 13:40-0400 Systolic blood pressure 110 mm[Hg] Aba Moon Other [facility] Other Encounters Encounter Date Encounter Type Care Provider Facility Start: 10-16-2024 End: 10-16-2024 ambulatory Med JENKINS Facility:[facility] Start: 10-16-2024 End: 10-16-2024 Patient encounter procedure Med JENKINS [facility] Start: 08-23-2024 End: 08-26-2024 Clinisync Result Encounter Generic External Data Provider [facility] External Department Unsolicited Start: 08-23-2024 End: 08-26-2024 Clinisync Result Encounter Generic External Data Provider [facility] External Department Unsolicited Start: 08-07-2024 End: 08-07-2024 Bamboo flowsheet Seema Sutherland SYSTEM DEVELOPMENT ENGINEER Work Phone: [facility] Start: 08-07-2024 End: 08-10-2024 Bamboo flowsheet Seema Sutherland SYSTEM DEVELOPMENT ENGINEER Work Phone: [facility] Start: 08-07-2024 End: 08-10-2024 Clinisync Result Encounter Generic External Data Provider [facility] External Department Unsolicited Start: 08-07-2024 End: 08-07-2024 Office outpatient visit 25 minutes Seema Sutherland SYSTEM DEVELOPMENT ENGINEER Work Phone: [facility] Comment on above: Closed nondisplaced fracture of acromial end of right clavicle with routine healing, subsequent encounter (Primary Dx); Idiopathic hypoparathyroidism (CMS/HCC); Rheumatoid arthritis, unspecified (CMS/HCC); Major depressive disorder, single episode, mild (HCC) (CMS/HCC); Parkinson's disease with fluctuating manifestations, unspecified whether dyskinesia present (CMS/HCC); Hemiparesis, right (CMS/HCC); Diarrhea of presumed infectious origin Start: 08-07-2024 End: 08-07-2024 ambulatory SEEMA MAEGANZ Not Available Start: 07-18-2024 End: 07-19-2024 Emergency department patient visit JACK Alicea YADIJOSEFINA [facility] Start: 07-18-2024 End: 07-18-2024 Office outpatient visit 15 minutes Donna Turcios MD Work Phone: [facility] Comment on above: Atherosclerosis of n 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; History of myocardial infarction; Status post coronary angioplasty; Mixed hyperlipidemia; Acquired hypothyroidism; Parkinson's disease, unspecified whether dyskinesia present, unspecified whether manifestations fluctuate (Multi); Rheumatoid arthritis, involving unspecified site, unspecified whether rheumatoid factor present (Multi); BMI 22.0-22.9, adult Start: 07-18-2024 End: 07-18-2024 ambulatory DONNA TURCIOS [facility] Ambulatory Start: 07-15-2024 End: 07-15-2024 Refill Seema Aicrachz SYSTEM DEVELOPMENT ENGINEER Work Phone: [facility] Comment on above: Hypothyroidism (acqu ired) (CMS/[facility]) Start: 07-14-2024 End: 07-14-2024 Orders Only Seema Aichholz SYSTEM DEVELOPMENT ENGINEER Work Phone: [facility] Comment on above: UTI symptoms (Primar y Dx) Start: 07-11-2024 End: 07-12-2024 Refill Seema Aichholz SYSTEM DEVELOPMENT ENGINEER Work Phone: [facility] Comment on above: Hypothyroidism (acqu ired) ([facility]) Start: 07-10-2024 End: 07-10-2024 Clinisync Result Encounter Seema Aichholz SYSTEM DEVELOPMENT ENGINEER Work Phone: [facility] External Department Unsolicited Start: 07-10-2024 End: 07-10-2024 Clinisync Result Encounter Seema Aichholz SYSTEM DEVELOPMENT ENGINEER Work Phone: [facility] External Department Unsolicited Start: 06-18-2024 End: 06-18-2024 Orders Only Seema Aichholz SYSTEM DEVELOPMENT ENGINEER Work Phone: [facility] Comment on above: UTI symptoms (Primar y Dx) Start: 06-13-2024 End: 06-13-2024 ambulatory SERGIO HURSTNER Not Available Start: 04-10-2024 End: 04-10-2024 ambulatory Med JENKINS Facility:[facility] Start: 04-10-2024 End: 04-10-2024 Patient encounter procedure Med JENKINS [facility] Start: 03-20-2024 End: 03-20-2024 ambulatory DESTINEY DUDLEY Not Available Start: 03-11-2024 End: 03-11-2024 ambulatory SEEMA SUTHERLAND Not Available Start: 03-07-2024 End: 03-07-2024 ambulatory [facility] Work Phone: Start: 03-07-2024 End: 03-07-2024 Patient encounter procedure [facility]ph[facility] Steve Work Phone: Start: 02-27-2024 Non-patient / Non-visit [facility] Work Phone: Start: 02-26-2024 End: 02-26-2024 ambulatory Med JENKINS Facility[facility] Start: 02-26-2024 End: 02-26-2024 Patient encounter procedure Med JENKINS [facility] Start: 11-13-2023 End: 12-19-2023 Pre-admission assessment Med JENKINS [facility] Start: 11-13-2023 End: 11-13-2023 ambulatory Med JENKINS Facility:[facility] Start: 11-13-2023 End: 11-13-2023 Patient encounter procedure Med JENKINS [facility] Start: 09-27-2023 End: 09-27-2023 Patient encounter procedure Med Hilario TRINA [facility] Start: 08-16-2023 End: 08-16-2023 Lab Drop off Med JENKINS [facility] Start: 08-16-2023 End: 08-16-2023 Patient encounter procedure Med Hilario TRINA [facility] Start: 07-20-2023 Office outpatient vi sit 25 minutes Pratik Derrick Tadeo Work Phone: [facility] 250 DO Work Phone: Start: 07-20-2023 ambulatory Thompson Turcios Facility : Start: 07-05-2023 End: 07-05-2023 ambulatory Seema J Aichholz Facility:[facility] Start: 07-05-2023 End: 07-05-2023 ambulatory Seema J Aichholz Work Phone: [facility] Work Phone: Start: 07-05-2023 End: 07-05-2023 Patient encounter procedure Seema Aichholz Work Phone: [facility] [address] Work Phone: Start: 05-25-2023 End: 05-25-2023 ambulatory Aba Giovanny Other [facility] Other Start: 05-25-2023 Telephone encounter Aba Giovanny [facility] Start: 05-11-2023 End: 05-11-2023 Patient encounter procedure Med Yanelis JENKINS [facility] Start: 05-08-2023 End: 05-08-2023 ambulatory Aba Giovanny Other [facility] Other Start: 05-08-2023 Telephone encounter Aba Giovanny [facility] Start: 02-08-2023 End: 02-08-2023 ambulatory Madhav Padillay Other [facility] [employer] Other Start: 02-08-2023 Patient encounter procedure Madhav Conrad [facility] Start: 01-12-2023 ambulatory Donan Lawrenceim Facility : Start: 01-12-2023 Office outpatient vi sit 25 minutes Partik A Naderer Work Phone: [facility] 250 DO Work Phone: Start: 11-30-2022 End: 11-30-2022 ambulatory Aba Giovanny Other [facility] Other Start: 11-30-2022 Telephone encounter Aba Giovanny [facility] Start: 11-29-2022 End: 11-30-2022 ambulatory SKI PATROL SEEMA SUTHERLAND Facility:[facility] Start: 08-03-2022 End: 08-03-2022 ambulatory Madhav Padillay Other [facility] Other Start: 08-03-2022 Telephone encounter Madhav Conrad [facility] Start: 08-02-2022 End: 08-02-2022 ambulatory Seema Lencho Moz Facility:[facility] Start: 08-02-2022 End: 08-02-2022 Admission to same day surgery center Seema Sutherland Work Phone: [facility] Start: 08-02-2022 End: 08-02-2022 ambulatory Seema J Lancehjasmin Work Phone: [facility] Work Phone: Start: 07-29-2022 End: 07-29-2022 ambulatory Madhav Conrad Facility:[facility] Start: 07-29-2022 End: 07-29-2022 Patient encounter procedure Seema Sutherland Work Phone: [facility]-Pre-Surgical [facility] Start: 07-13-2022 Rx Renewal Pratik Cárdenasr Work Phone: [facility] 250 DO Work Phone: Start: 07-11-2022 End: 07-12-2022 ambulatory SKI PATROL SEEMA SUTHERLAND Facility:[facility] Start: 06-23-2022 Office outpatient vi sit 25 minutes Pratik A Naderer Work Phone: [facility] 250 DO Work Phone: Start: 06-22-2022 End: 06-22-2022 Patient encounter procedure Med JENKINS [facility] Start: 06-15-2022 End: 06-16-[address] DONNA TURCIOS Facility:[facility] Start: 05-23-2022 End: 05-23-2022 Patient encounter procedure Med JENKINS [facility] Start: 05-17-2022 End: 05-17-2022 Lab Drop off Med JENKINS [facility] Start: 05-17-2022 End: 05-17-2022 Patient encounter procedure Med JENKINS [facility] Start: 05-11-2022 End: 05-11-2022 Patient encounter procedure Med JENKINS [facility] Start: 04-20-2022 End: 04-21-2022 ambulatory OTILIA SUTHERLAND Facility:[facility] Start: 03-24-2022 End: 03-24-2022 ambulatory Aba Giovanny Other [facility] [employer] Other Start: 03-24-2022 Office outpatient vi sit 25 minutes Aba Giovanny [facility] Start: 03-23-2022 End: 03-23-2022 ambulatory RODERICK KONG Facility:[facility] Start: 03-23-2022 End: 03-24-2022 ambulatory ABA GIOVANNY Facility:[facility] Start: 03-22-2022 End: 03-23-2022 ambulatory ABA GIOVANNY [facility] Other Start: 03-22-2022 Telephone encounter Aba Giovanny [facility] Start: 12-29-2021 Office outpatient vi sit 25 minutes Pratik Tadeo Work Phone: [facility] DO Work Phone: Start: 10-18-2021 End: 10-18-2021 ambulatory Alyssa Ginty Other [facility] Other Start: 10-18-2021 Office outpatient vi sit 15 minutes Alyssa Ginty [facility] Start: 09-07-2021 End: 09-07-2021 ambulatory Carie Keith Other [facility] Other Start: 09-07-2021 Office outpatient vi sit 15 minutes Carie Keith [facility] Start: 09-02-2021 End: 09-02-2021 ambulatory Aba Giovanny Other [facility] Other Start: 09-02-2021 Office outpatient vi sit 25 minutes Aba Giovanny [facility] Start: 03-03-2021 End: 03-03-2021 Patient encounter procedure Bean Cantu Work Phone: -[facility] Start: 02-17-2021 End: 02-17-2021 Patient encounter procedure Bean Cantu Work Phone: -Pre-Surgical Testing Start: 02-04-2021 End: 02-04-2021 Patient encounter procedure Bean Cantu Work Phone: [facility] [address] Start: 02-03-2021 End: 02-03-2021 Patient encounter procedure Bean Cantu Work Phone: [facility] Start: 01-29-2018 Ambulatory DONNA LAWRENCEIM Facility :[id number] Procedures Date Procedure Procedure Detail Performing Clinician Start: 08-23-2024 E COLI SHIGA TOXIN EIA Generic External Data Provider Start: 08-07-2024 Bacteria identified in Urine by Culture Generic External Data Provider Start: 07-10-2024 TBH UA (CLEAN/CATCH) MICROSCOPIC IF INDICATE Seema Sutherland SYSTEM DEVELOPMENT ENGINEER Work Phone: Start: 07-05-2023 Plain X-ray of bilateral calcanei [...] Start: 02-04-2021 Plain X-ray of left hand eBan Cantu Work Phone: Start: 02-04-2021 X-ray of left foot Bean Cantu Work Phone: Start: 02-03-2021 X-ray of left knee Bean Cantu Work Phone: Start: 03-12-2020 Lipid 1996 panel - Serum or Plasma Umesh Turcios MD Work Phone: Start: 09-17-2019 Thyrotropin [Units/volume] in Serum or Plasma Donna Turcios MD Work Phone: Start: 03-16-2012 H/O: colostomy Colostomy status Seema Sutherland NP Work Phone: Angioplasty of blood vessel Pratik Meza Naderer Work Phone: Appendectomy Pratik Bartonerer Work Phone: Appendectomy Med [facility] Arthroplasty of knee Pratik A Naderer Work Phone: Arthroplasty of knee [facility] Comment on above: Right Bilateral tubal ligation Rodrick JENKINS Cholecystectomy Pratik Bartoner silverio Work Phone: Colonoscopy [facility] Colostomy Pratik Meza Mickerer Work Phone: Extraction of cataract Waldemar boykin [...] A Naderer Work Phone: Total colonoscopy Pratik Meza Nad erer Work Phone: Plan of Treatment Date Care Activity Detail Author Start: 07-17-2025 End: 07-17-2025 Patient encounter procedure 07/17/2025 11:20 AM EDT Office Visit [facility] [address] [place] [phone] Donna Turcios MD [address] [facility] [address] [place] [address] [facility] Start: 03-12-2025 Lipid panel Lipid Panel [facility] Start: 09-11-2024 End: 09-11-2024 Patient encounter procedure 09/11/2024 1:20 PM EST Office Visit [facility] [address] [place] [phone] Seema Sutherland, VITALIY [address] [place] [phone] [facility] Start: 08-22-2024 End: 08-22-2024 Patient encounter procedure 08/22/2024 11:00 AM EDT Office Visit [facility] [address] [place] [phone] Destiney Dudley NP [address] [place], [place] [facility] Start: 08-19-2024 End: 08-19-2024 Patient encounter procedure 08/19/2024 10:00 AM EDT Office Visit [facility] [address] [place] [phone] Seema Sutherland NP [address] [place] [phone] [facility] Start: 08-15-2024 End: 08-15-2024 Patient encounter procedure 08/15/2024 2:15 PM EDT Office Visit [facility] [address] [place] [phone] Candace Mullins MD [address] [place] [address] [facility] Start: 08-07-2024 End: 08-07-2024 Patient encounter procedure 08/07/2024 10:30 AM EDT Office Visit [facility] [address] [place] [phone] Seema Sutherland NP [address] [place] [address] Idiopathic hypoparathyroidism (CMS/HCC); Rheumatoid arthritis, unspecified (CMS/HCC); Major depressive disorder, single episode, mild (HCC) (CMS/HCC) [facility] Comment on above: Idiopathic hypoparathyroidism (CMS/HCC); Rheumatoid arthritis, unspecified (CMS/HCC); Major depressive disorder, single episode, mild (HCC) (CMS/HCC) Start: 07-28-2024 End: 07-14-2025 Bacteria identified in Urine by Culture Urine culture Microbiology Routine UTI symptoms Expected: 07/28/2024 (Approximate), Expires: 07/14/2025 [facility] Work Phone: Comment on above: Expected: 07/28/2024 (Approximate), Expi res: 07/14/2025 Start: 06-30-2024 COVID-19 Vaccine ( season) COVID-19 Vaccine () [facility] Start: 06-30-2024 Influenza vaccination Influenza Vaccine (#1) [facility] Start: 06-18-2024 End: 06-18-2025 Bacteria identified in Urine by Culture Urine culture (clean catch) Microbiology Routine UTI symptoms Expected: 06/18/2024 (Approximate), Expires: 06/18/2025 [facility] Comment on above: Expected: 06/18/2024 (Approximate), Expi res: 06/18/2025 Start: 06-18-2024 End: 06-18-2025 Urinalysis complete panel - Urine Urinalysis with reflex microscopic (clean catch) Lab Routine UTI symptoms Expected: 06/18/2024 (Approximate), Expires: 06/18/2025 [facility] Work Phone: Comment on above: Expected: 06/18/2024 (Approximate), Expi res: 06/18/2025 Start: 07-20-2023 FUV, Provider: Donna Turcios, Status: Pen, Time: 10:20 AM FUV, Provider: Donna Turcios, Status: Pen, Time: 10:20 AM [facility] [address] DO Work Phone: Start: 01-12-2023 FUV, Provider: Dnona Turcios, Status: Pen, Time: 10:50 AM FUV, Provider: Donna Turcios, Status: Pen, Time: 10:50 AM [facility] 250 DO Work Phone: Start: 08-02-2022 [facility] Start: 07-12-2022 FUV, Provider: Donna Turcios, Status: Pen, Time: 10:50 AM FUV, Provider: Donna Turcios, Status: Pen, Time: 10:50 [facility] Work [facility]: Start: 06-04-2022 DTaP/Tdap/Td Vaccines (2 - Td or Tdap) DTaP/Tdap/Td Vaccines (2 - Td or Tdap) [facility] Start: 02-17-2021 Bacteria identified in Urine by Culture Urine Culture [facility] Start: 09-17-2020 Thyroid stimulating hormone measurement TSH Level [facility] Start: 2000 RSV patients and/or patients aged 60+ years (1 - 1-dose 60+ series) RSV patients and/or patients aged 60+ years (1 - 1-dose 60+ series) [facility] Start: 1990 Zoster Vaccines (1 of 2) Zoster Vaccines (1 of 2) [facility] Start: 1958 Diabetes mellitus screening Diabetes Screening [facility] Start: 1940 Medicare Annual Wellness Visit Medicare Annual Wellness Visit (AWV) [facility] Start: 1940 Screening for osteoporosis Bone Density Scan [facility] Bacteria identified in Urine by Culture URINE CULTURE, ROUTINE Lab Routine 08/07/2024 10:44 PM EDT [facility] Patient Education Gastritis (DC) Keyla pisano [facility] Work Phone: Renal function 2000 panel - Serum or Plasma [facility] Immunizations Immunization Date Immunization Notes Care Provider Fa cility 07-18-2024 tetanus toxoid, redu ruby diphtheria toxoid, and acellular pertussis vaccine, adsorbed Seema Aichholz SYSTEM DEVELOPMENT ENGINEER Work Phone: [facility] 08-01-2023 Influenza, Seasonal, Quadrivalent, Adjuvanted Seema Aichholz SYSTEM DEVELOPMENT ENGINEER Work Phone: [facility] 08-01-2023 influenza virus vacc ine, unspecified formulation Seema Aichholz SYSTEM DEVELOPMENT ENGINEER Work Phone: [facility] 06-30-2023 influenza virus vacc ine, unspecified formulation [facility] 07-25-2022 influenza, high dose seasonal, preservative-free Seema Aichholz SYSTEM DEVELOPMENT ENGINEER Work Phone: [facility] 07-25-2022 Influenza, High-dose Seasonal, Quadrivalent, Preservative Free Seema Aichholz SYSTEM DEVELOPMENT ENGINEER Work Phone: [facility] 07-25-2022 influenza virus vacc ine, unspecified formulation Seema Aichholz SYSTEM DEVELOPMENT ENGINEER Work Phone: [facility] 09-17-2021 Pfizer-BioNTech COVI D-19 Vacc 30 MCG/0.3ML Intramuscular Suspension Pratik Tadeo Work Phone: [facility] 09-08-2021 influenza virus vacc ine, unspecified formulation Med [facility] 09-08-2021 Influenza, injectabl e, Madin Homer Canine Kidney, preservative free, quadrivalent Pratik A Naderer Work Phone: [facility] 250 DO Work Phone: 01-05-2021 Moderna COVID-19 Vac cine 100 MCG/0.5ML Intramuscular Suspension Pratik A Naderer Work Phone: [facility] 12-07-2020 Moderna COVID-19 Vac cine 100 MCG/0.5ML Intramuscular Suspension Pratik A Naderer Work Phone: [facility] 08-11-2020 influenza virus vacc ine, unspecified formulation Med J[facility] 08-11-2020 influenza, injectabl e, quadrivalent, preservative free Pratik A Naderer Work Phone: [facility] 250 DO Work Phone: 08-11-2020 pneumococcal polysaccharide vaccine, 23 valent Pratik A Naderer Work Phone: [facility] 06-30-2020 influenza virus vacc ine, unspecified formulation Pratik A Naderer Work Phone: [facility] 06-30-2020 influenza, seasonal, injectable Seema Sutherland SYSTEM DEVELOPMENT ENGINEER Work Phone: [facility] 07-30-2019 influenza virus vacc ine, unspecified formulation Pratik A Naderer Work Phone: [facility] 250 DO Work Phone: 07-16-2019 influenza virus vacc ine, unspecified formulation Med J[facility] 07-16-2019 influenza, injectabl e, quadrivalent, preservative free Pratik A Naderer Work Phone: [facility] 250 DO Work Phone: 08-09-2018 influenza virus vacc ine, unspecified formulation Mde JENKINS [facility] 08-09-2018 influenza, high dose seasonal, preservative-free Pratik A Naderer Work Phone: [place] [address] DO Work Phone: 07-30-2018 influenza virus vacc ine, unspecified formulation Pratik A Naderer Work Phone: [place] [address] DO Work Phone: 08-11-2017 influenza virus vacc ine, unspecified formulation Med JENK[facility] 08-11-2017 influenza, high dose seasonal, preservative-free Pratik A Naderer Work Phone: [place] [address] DO Work Phone: 07-30-2017 influenza virus vacc ine, unspecified formulation Pratik A Naderer Work Phone: [place] [address] DO Work Phone: 08-02-2016 influenza virus vacc ine, unspecified formulation Med J[facility] 08-02-2016 influenza, high dose seasonal, preservative-free Pratik A Naderer Work Phone: [place] [address] DO Work Phone: 06-30-2016 influenza virus vacc ine, unspecified formulation Pratik A Naderer Work Phone: [place] [address] DO Work Phone: 01-08-2016 pneumococcal conjuga te vaccine, 13 valent Pratik A Naderer Work Phone: [facility] 07-21-2015 influenza virus vacc ine, unspecified formulation Pratik A Naderer Work Phone: [place] [address] DO Work Phone: 07-21-2015 pneumococcal polysaccharide vaccine, 23 valent Pratik A Naderer Work Phone: [place] [address] DO Work Phone: 07-17-2015 influenza virus vacc ine, unspecified formulation Med JENK[facility] 07-17-2015 influenza, high dose seasonal, preservative-free Seema Koko SYSTEM DEVELOPMENT ENGINEER Work Phone: [facility] 07-17-2014 influenza virus vacc ine, unspecified formulation Med JENK[facility] 07-17-2014 influenza, high dose seasonal, preservative-free Pratik A Naderer Work Phone: [place] [address] DO Work Phone: 08-07-2012 influenza virus vacc ine, unspecified formulation Med [facility] 08-07-2012 influenza, seasonal, injectable, preservative free Pratik A Naderer Work Phone: [place] [address] DO Work Phone: 06-04-2012 tetanus toxoid, redu ruby diphtheria toxoid, and acellular pertussis vaccine, adsorbed Pratik A Naderer Work Phone: [facility] 07-30-2011 seasonal influenza, intradermal, preservative free Seema Koko SYSTEM DEVELOPMENT ENGINEER Work Phone: [facility] 09-16-2010 influenza virus vacc ine, unspecified formulation Med JENKINS [facility] 09-16-2010 influenza, seasonal, injectable Pratik A Naderer Work Phone: -[facility] 250 DO Work Phone: 08-14-2010 pneumococcal polysaccharide vaccine, 23 valent Seema Sutherland SYSTEM DEVELOPMENT ENGINEER Work Phone: [facility] Payers Date Payer Category Payer Private Health Insurance [id number] 2023 Private Health Insurance [id number] 2022 Self-pay [id number] 2005 Medicare [id number] 1959 Medicare [id number] 1959 Unknown [id number] 1940 Unknown [id number] 2.16.84 0.1.800138.3.579.2.593 1940 Unknown [id number] 2.16.84 0.1.996718.3.579.2.593 1940 Unknown [id number] 2.16.84 0.1.406755.3.579.2.593 1940 Unknown [id number] 2.16.84 0.1.101093.3.579.2.593 1940 Unknown [id number] 2.16.84 0.1.533695.3.579.2.593 1940 Unknown [id number] 2.16.84 0.1.151234.3.579.2.593 1940 Unknown [id number] 2.16.84 0.1.730917.3.579.2.593 1940 Unknown [id number] 2.16. 840.1.427871.3.579.2.356 1940 Unknown [id number] 2.16. 840.1.753391.3.579.2.356 1940 Unknown [id number] 2.16.8 40.1.707808.3.579.2.1244 1940 Unknown [id number] 2.16.8 40.1.441441.3.579.2.1286 1940 Unknown [id number] 2.16.8 40.1.550813.3.579.2.1286 1940 Unknown [id number] 2.16.8 40.1.545881.3.579.2.1286 1940 Unknown [id number] 2.16.8 40.1.186080.3.579.2.1286 1940 Unknown [id number] 2.16.8 40.1.979170.3.579.2.1286 1940 Unknown [id number] 2.16.84 0.1.340272.3.579.2.1259 1940 Unknown [id number] 2.16.84 0.1.964015.3.579.2.1259 1940 Unknown [id number] 2.16.84 0.1.393006.3.579.2.1259 1940 Unknown [id number] 2.16.84 0.1.820795.3.579.2.1259 1940 Unknown [id number] 2.16.8 40.1.640362.3.579.2.727 1940 Unknown [id number] 2.16.8 40.1.835956.3.579.2.727 1940 Unknown [id number] 2.16.8 40.1.376152.3.579.2.727 1940 Unknown [id number] 2.16.8 40.1.929057.3.579.2.727 Medicare [id number] Unknown [id number] Unknown Unknown [id number] 2.16.8 40.1.962699.3.579.2.531 Unknown [id number] 2.16.8 40.1.148741.3.579.2.531 Unknown [id number] 2.16.8 40.1.054780.3.579.2.531 Social History Date Type Detail Facility Start: 02-17-2021 End: 04-10-2024 Tobacco smoking status NHIS Never smoked tobacco (finding) [facility] Start: 1940 Sex Assigned At Female F [facility] Start: 03-11-2024 End: 06-13-2024 No alcohol use No alcohol use [facility] Start: 03-11-2024 End: 06-13-2024 Sex Assigned At [employer] Other Tobacco smoking status Never [facility] Start: 07-11-2023 End: 11-30-2023 Tobacco use and exposure Smokeless tobacco non-user [facility] Start: 06-13-2024 End: 07-18-2024 Alcoholic beverage intake Lifetime non-drinker (finding) [facility] Start: 1940 Sex assigned at Not on file [facility] Start: 07-08-2024 End: 07-18-2024 Exposure to SARS-CoV-2 (event) Not sure [facility] Medical Equipment Procedure Code Equipment Code [...] knee, total, minimally invasive Orthopaedic cement, non-medicated [id number] FDA Start: 03-09-2021 Arthroplasty, knee, total, minimally invasive Uncoated knee femur prosthesis, metallic [id number] FDA Start: 03-09-2021 Arthroplasty, knee, total, minimally invasive Polyethylene patella prosthesis ()[id number] FDA Start: 03-09-2021 Arthroplasty, knee, total, minimally invasive Tibial insert ()[id number] FDA Start: 03-09-2021 Arthroplasty, knee, total, minimally invasive Uncoated knee tibia prosthesis, metallic [id number] FDA Start: 03-09-2021 Arthroplasty, knee, total, minimally [...] Facility 04-10-2024 Functional Status N/A [facility] 02-26-2024 Functional Status N/A [facility] 09-27-2023 Functional Status N/A [facility] 08-16-2023 Functional Status N/A [facility] 05-11-2023 Functional Status N/A [facility] 06-22-2022 Functional Status N/A [facility] 05-19-2022 Functional Status N/A [facility] 05-11-2022 Functional Status N/A [facility] Clinical Notes 09-02-2021 to 08-07-2024 Seema Sutherland NP - 08/07/2024 12:05 PM Karen Sutherland NP - 08/07/2024 12:04 PM Karen Sutherland NP - 08/07/2024 12:02 PM EDTHUMBANTONIA RIOS - 08/07/2024 10:30 AM EDTPatient Instructions Note Date & Type Note Facility 08-07-2024 History of Present illness Narrative Associated Problem(s): Diarrhea of presumed infectious origin Possible c diff d/t recent UTI with atb treatment Dd: viral illness Go to ER, for evaluation dehydration Associated Problem(s): Closed fracture of acromial end of right clavicle Reviewed xray, will need ortho Associated Problem(s): Parkinson's disease ([facility]) Cont with neuro Possible worsening [...] fracture, had xray and CT head/neck at [facility], sent home with sling no ortho referral [...] unspecified vessel or lesion type, unspecified whether [place] or transplanted heart ([facility]) COVID-19 vaccine administered x2 moderna CVA (cerebral vascular accident) ([facility]) 11/2016 Failure to thrive in adult Female cystocele History of CVA (cerebrovascular accident) Hypocalcemia Hypokalemia Hypothyroidism (acquired) ([facility]) Hypothyroidism (acquired) ([facility]) 10/21/2023 Hypothyroidism ([facility]) Impaired mobility Inguinal hernia Left knee pain, unspecified chronicity Myocardial infarct ([facility]) 2015, 2016 Nephrolithiasis Paresthesia Parkinson disease ([facility]) Pressure sore on buttocks Senile debility Shoulder pain Squamous cell skin cancer Weakness generalized Past Surgical History: Procedure Laterality Date APPENDECTOMY BLADDER SURGERY 2005 CARPAL TUNNEL RELEASE Bilateral CHOLECYSTECTOMY 1967 CORONARY STENT PLACEMENT 11/24/2015 CORONARY STENT PLACEMENT 11/2016 with balloon placement CYSTOSCOPY 03/2013 ENTEROCELE REPAIR 1995 FOOT SURGERY Bilateral HERNIA REPAIR 2004 inguinal [...] Follow with endo documented in this encounter [facility] 07-18-2024 History of Present illness Narrative Subjective Narciso Velasquez is a 83 y.o. female Chief Complaint Follow-up HPI Patient is in the office for follow-up for the problems noted below. Since her last visit a year ago she has had no cardiac events. She is very frail and has Parkinson's disease followed by neurology. She is only taking statin and aspirin from my end. Review of system from the cardiac standpoint was normal physical examination was unremarkable. ASSESSMENT AND PLAN: 1. Coronary artery disease, status post angioplasty of the left anterior descending in 2015 and 2016. She will remain on statin and aspirin. Presently asymptomatic, nuclear stress test 2020 was normal. Continue aspirin and statin indefinitely 2. Hyperlipidemia, on statin well-tolerated 3. Hypothyroidism on replacement therapy 4- Parkinson's disease on Sinemet followed by neurology, currently stable 5- rheumatoid arthritis followed by rheumatology locally, currently stable Review of Systems All other systems reviewed and are negative. Vitals: 07/18/24 1006 07/18/24 1029 BP: 87/53 105/60 BP Location: Left arm Left arm Patient Position: Sitting Sitting Pulse: 93 Weight: 47.6 kg (105 lb) Height: 1.461 m (4' 9.5 ) Objective Physical Exam Constitutional: Appearance: Normal appearance. HENT: Nose: Nose normal. Neck: Vascular: No carotid bruit. Cardiovascular: Rate and Rhythm: Normal rate. Pulses: Normal pulses. Heart sounds: Normal heart sounds. Pulmonary: Effort: Pulmonary effort is normal. Abdominal: General: Bowel sounds are normal. Palpations: Abdomen is soft. Musculoskeletal: General: Normal range of motion. Cervical back: Normal range of motion. Right lower leg: No edema. Left lower leg: No edema. Skin: General: Skin is warm and dry. Neurological: General: No focal deficit present. Mental Status: She is alert. Psychiatric: Mood and Affect: Mood normal. Behavior: Behavior normal. Thought Content: Thought content normal. Judgment: Judgment normal. Allergies Morphine Current Medications Current Outpatient Medications: aspirin 81 mg EC tablet, Take 1 tablet (81 mg) by mouth once daily., Disp: , Rfl: calcitriol (Rocaltrol) 0.5 mcg capsule, Take 1 capsule (0.5 mcg) by mouth once daily., Disp: , Rfl: gabapentin (Neurontin) 100 mg capsule, Take 1 capsule (100 mg) by mouth once daily., Disp: , Rfl: pramipexole (Mirapex) 0.125 mg tablet, Take 1 tablet (0.125 mg) by mouth 3 times a day., Disp: , Rfl: trihexyphenidyl (Artane) 2 mg tablet, Take 2 tablets (4 mg) by mouth once daily., Disp: , Rfl: atorvastatin (Lipitor) 20 mg tablet, Take 1 tablet (20 mg) by mouth once daily at bedtime., Disp: 90 tablet, Rfl: 3 nitroglycerin (Nitrostat) 0.4 mg SL tablet, Place 1 tablet (0.4 mg) under the tongue every 5 minutes if needed for chest pain., Disp: 100 tablet, Rfl: 1 Assessment/Plan 1. Atherosclerosis of [place] coronary artery of [place] heart without angina pectoris Follow Up In Cardiology nitroglycerin (Nitrostat) 0.4 mg SL tablet 2. History of myocardial infarction nitroglycerin (Nitrostat) 0.4 mg SL tablet 3. Status post coronary angioplasty nitroglycerin (Nitrostat) 0.4 mg SL tablet 4. Mixed hyperlipidemia atorvastatin (Lipitor) 20 mg tablet 5. Essential hypertension 6. Acquired hypothyroidism 7. Parkinson's disease, unspecified whether dyskinesia present, unspecified whether manifestations fluctuate (Multi) 8. Rheumatoid arthritis, involving unspecified site, unspecified whether rheumatoid factor present (Multi) 9. BMI 22.0-22.9, adult Scribe Attestation By signing my name below, I, Renettaderrick Cummings LPN , Scribe attest that this documentation has been prepared under the direction and in the presence of Donna Trucios MD. Provider Attestation - Scribe documentation All medical record entries made by the Scribe were at my direction and personally dictated by me. I have reviewed the chart and agree that the record accurately reflects my personal performance of the history, physical exam, discussion and plan. documented in this encounter [facility] Work Phone: 07-18-2024 Instructions Jose Martin Snyder MA - 07/18/2024 10:00 AM EDT Please bring all medicines, vitamins, and herbal supplements with you when you come to the office. Prescriptions will not be filled unless you are compliant with your follow up appointments or have a follow up appointment scheduled as per instruction of your physician. Refills should be requested at the time of your visit. documented in this encounter [facility] Work Phone: 04-10-2024 Hospital Discharge instructions Follow Up Care 04/10/2024 10:26:59 With:TRINA WATSON, Med Hilario, URL Address: [address] [place] [address]- When: Unknown [facility] 04-10-2024 Hospital Discharge instructions Patient Education 04/10/2024 [...] nerve stimulation). ?For women, using a medical assistant prn to prevent urine leaks. This is a [...] right after experiencing incontinence. General instructions Take gpqp-sqq-gjgtnvp and prescription medicines only as told by [...] important. Where to find more information [place] of Diabetes and Digestive and Kidney Diseases: www.niddk.nih.gov [place] [employer] Association: www.urologyhealth.org Contact a health care [...] provider. Document Revised: 05/21/2021 Document Reviewed: 05/21/2021 ElseSonian Patient Education 2022 [employer] Follow Up Care 02/26/2024 13:52:27 With:TRINA WATSON, Med Hilario, KJL Address: [address] [facility] [facility] [employer] [address] When: Unknown [facility] 02-26-2024 Hospital Discharge instructions Patient Education 02/26/2024 [...] Care 11/13/2023 15:16:14 With:Med JENKINS Address: [address] [employer] [address] [place] [address] [facility] (1) When:6 weeks Comments:Call for followup appointment, with a bladder scan at that visit to check for bladder emptying. [facility] 02-26-2024 Note [id number] [facility] 02-26-2024 Note Cystoscopy with Boto x [...] you have a fever over 100 degrees. [facility] 11-13-2023 Evaluation + Plan note Extrac db from: Title:HOPD visit Author:Med JENKINS MD Date: 11/13/23 Impression and Plan Assessment and Plan: Diagnosis: Acute UTI ([id number] N39.0, Working, Medical), Mixed incontinence urge and stress (YYT34-PP N39.46, Working, Medical), Overactive bladder (FHY09-DY N32.81, Working, Medical). 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 She should [...] Appointments Appointment Date:12/18/2023 03:15:00 PM Scheduled Provider: Location:[facility] Appointment Type:Urology FT Diagnostic Tests Pending * Urine Culture 11/13/23 [facility]11-29-2023 Hospital Discharge instructions Follow Up Care 09/27/2023 13:27:49 With:Med JENKINS Address: [address] [place] [address]- Business (1) When: Unknown Comments:As you know [...] probiotics locally and the cranberry is self-explanatory.My airframe and powerplant mechanic will call you to get you back on the books for the Botox injection. [facility]11-29-2023 Hospital Discharge instructions Patient Education 09/27/2023 [...] nerve stimulation). ?For women, using a medical assistant prn to prevent urine leaks. This is a [...] right after experiencing incontinence. General instructions Take vztq-kba-kzfrwvm and prescription medicines only as told by [...] important. Where to find more information [place] of Diabetes and Digestive and Kidney Diseases: www.niddk.nih.gov [place] [employer] Association: www.urologyhealth.org Contact a health care [...] provider. Document Revised: 05/21/2021 Document Reviewed: 05/21/2021 Else[employer]ian Patient Education 2022 [employer]. Follow Up Care 08/16/2023 10:31:24 With:TRINA WATSON, Med Hilario, KJL Address: [address] [place] [address] [place] [address]- When: Unknown [facility] 10-18-2023 Hospital Discharge instructions Patient Education 08/16/2023 [...] Treatment for this condition includes: Antibiotic medicine. Ggwz-hjq-enryoik medicines to treat discomfort. Drinking enough water [...] Follow these instructions at home: Medicines Take ilvo-auv-qyxthuu and prescription medicines only as told by [...] provider. Document Revised: 05/28/2021 Document Reviewed: 05/28/2021 [employer] Patient Education 2022 [employer]. Follow Up Care 05/11/2023 08:07:36 With:TRINA WATSON, Med Hilario, URL Address: [facility] [employer] [place] [id number]- When: Unknown [facility] 07-27-2023 Evaluation note* Encounter Date Diagnosis Assessment Notes Treatment Notes Treatment Clinical Notes Apr, Hypomagnesemia (ICD-10 - E83.42) [facility] Other 07-13-2023 Hospital Discharge instructions Patient Education [...] Up Care 04/12/2023 15:40:50 With:Med JENKINS Address: [facility] [address] [place], [place] [id number]- [facility] (1) When:3 months Comments:Call for followup appointment, with bladder scan checking for residual urine at that visit. [facility]07-10-2023 Evaluation note* Encounter Date Diagnosis Assessment Notes Treatment Notes Treatment Clinical Notes Apr, Hypomagnesemia (ICD-10 - E83.42) [facility] Other 04-12-2023 Evaluation note* Encounter Date Diagnosis Assessment Notes Treatment Notes Treatment Clinical Notes Jan, Early satiety (ICD-10 - R68.81) Jan, Gastritis (ICD-10 - K29.70) Continue Omeprazole as directed Rto 1 yr Jan, Borborygmi (ICD-10 - R19.8) [facility] Other 10-04-[facility] Discharge instructions Patient Education 06/22/2022 13:02:36 [...] nerve stimulation). For women, using a medical assistant prn to prevent urine leaks. This is a [...] right after experiencing incontinence. General instructions Take sltv-hmv-nszlsot and prescription medicines only as told by [...] 11/23/2005 Document Revised: 10/26/2018 Document Reviewed: 01/25/2018 [employer] Patient Education 2020 [employer]. 06/22/2022 13:02:35 Kegel Exercises Kegel Exercises Kegel [...] 10/02/2013 Document Revised: 06/05/2019 Document Reviewed: 06/05/2019 [employer] Patient Education 2020 [employer]. Follow Up Care 05/23/2022 15:12:51 With:TRINA WATSON, Med Hilario, URL Address: When:Within 6 Month(s) Comments:w/PVR [facility] 07-25-2022 Hospital Discharge instructions Patient Education 05/23/2022 [...] Care 05/11/2022 11:39:36 With:Med JENKINS Address: [address] [address]- Business (1) When:2 to 4 weeks Comments:Call for followup appointment, and a bladder scan to check bladder emptying will be performed at that visit. [facility]07-13-2022 Hospital Discharge instructions Patient Education 05/11/2022 [...] fried and sweet foods. General instructions Take slso-ofl-aodcotg and prescription medicines only as told by [...] 08/12/2010 Document Revised: 02/06/2020 Document Reviewed: 11/01/2018 [employer] Patient Education 2020 [employer]. Follow Up Care 12/27/2021 11:50:32 With:TRINA WATSON, Med Hilario, URL Address: [address] [place] [address] When: Unknown [facility] 05-26-2022 Evaluation note* Encounter Date Diagnosis Assessment [...] of cardiac arrest due to the hypokalemia [facility] Other 12-20-2021 Evaluation note* Encounter Date Diagnosis Assessment Notes Treatment Notes Treatment Clinical Notes Sep, Abnormal skin growth (ICD-10 - D49.2) Will send to derm for further evaluation and treatment. Advised patient that area will likely need to be removed. Message sent to sponsorship coordinator to schedule and make appointment for patient. Area covered with silvadine cream in office with non adherent telfa and coban. Advised patient not to pick at area. Immediate evaluation in ER for signs of infection, including, fever, red streaking, foul odor, any new or worsening symptoms. Patient verbalizes understanding and is agreeable with treatment plan [facility] Other 11-09-2021 Evaluation note* Encounter Date Diagnosis Assessment Notes Treatment Notes Treatment Clinical Notes Aug, Arthritis of left knee (ICD-10 - M17.12) Patient is progressing well. Continue physical therapy exercises and TKA precautions. Instructed patient to call with any questions or concerns. Aug, History of total left knee replacement (ICD-10 - Z96.652) [facility] Other 11-04-2021 Evaluation note* Encounter Date Diagnosis [...] possibilities that may be hypomagnesemia related hypoparathyroidism. [facility] Other Evaluation + Plan note Future Appointments Appointment Date:05/16/2022 10:00:00 AM Scheduled Provider: Location:[facility] Appointment Type:Urology CALL PAT FT Appointment Date:05/23/2022 02:30:00 PM Scheduled Provider: Location:[facility] Appointment Type:Urology FT [facility] Evaluation + Plan note Future Appointments Appointment Date:05/23/2022 02:30:00 PM Scheduled Provider: Location:[facility] Appointment Type:Urology FT [facility] Evaluation + Plan note Future Appointments Appointment Date:05/23/2022 02:30:00 PM Scheduled Provider: Location:[facility] Appointment Type:Urology FT Diagnostic Tests Pending * [facility]rine [facility] App[facility]ments Appointment Date:06/22/2022 11:45:00 AM Scheduled Provider:Med JENKINS MD Location:[facility] App[facility]ment [facility] Future Appointments Appointment Date:12/14/2022 11:15:00 AM Scheduled Provider:Med JENKINS MD Location:[facility] Appointment Type:URO Office Visit [facility] Evaluation + Plan note Future Appointments Appointment Date:08/16/2023 09:30:00 AM Scheduled Provider:Med JENKINS MD Location:[facility] Appointment Type:[facility] Future Appointments Appointment Date:09/27/2023 01:00:00 PM Scheduled Provider:Med JENKINS MD Location:[facility] Appointment Type:URO Office Visit Diagnostic Tests Pending * Urine Culture [facility]23 [facility] Future Appointments Appointment Date:09/27/2023 01:00:00 PM Scheduled Provider:Med JENKINS MD Location:[facility] Appointment Type:URO Office Visit [facility] Evaluation + Plan note Future Appointments Appointment Date:10/31/2023 09:45:00 AM Scheduled Provider: Location:[facility] Appointment Type:Urology CALL PAT FT Appointment Date:11/13/2023 02:45:00 PM Scheduled Provider: Location:[facility] Appointment Type:Urology FT [facility] Evaluation + Plan note Future Appointments Appointment Date:04/10/2024 10:00:00 AM Scheduled Provider: Location:[facility] Appointment Type:[facility]O [facility] Future Appointments Appointment Date:10/16/2024 01:00:00 PM Scheduled Provider:Med JENKINS MD Location:[facility] Appointment Type:URO Office Visit [facility] Evaluation noteNo Assessments Information Available [facility] InformationNort [employer] Other Evaluation noteNo assessment information available [facility] Work Phone: Evaluation note* Diagnosis Onset Date Resolution Status Hypomagnesemia acute CAD (coronary artery disease) chronic Hyperlipidemia chronic Hypokalemia resolved [facility] Work Phone: Evaluation note* Diagnosis Closed nondisplaced fracture of acromial end of right clavicle with routine healing, subsequent encounter- Primary Idiopathic hypoparathyroidism (CMS/HCC) Rheumatoid arthritis, unspecified ([facility]) Major depressive disorder, single episode, mild (HCC) ([facility]) Major depressive disorder, single episode, mild Parkinson's disease with fluctuating manifestations, unspecified whether dyskinesia present ([facility]) Hemiparesis, right ([facility]) Unspecified hemiplegia affecting unspecified side Diarrhea of presumed infectious origin [facility] Diagnosis Hypothyroidism (acquired) ([facility]) Unspecified hypothyroidism [facility]* Diagnosis UTI symptoms- Primary [facility] this encounter [facility]* Diagnosis UTI symptoms- Primary [facility]* Diagnosis Hypothyroidism (acquired) ([facility]) Unspecified hypothyroidism [facility]* Diagnosis Atherosclerosis of [place] coronary artery of [place] heart without angina pectoris History of myocardial infarction Status post coronary angioplasty Postsurgical percutaneous transluminal coronary angioplasty status Mixed hyperlipidemia Acquired hypothyroidism Unspecified hypothyroidism Parkinson's disease, unspecified whether dyskinesia present, unspecified whether manifestations fluctuate (Multi) Rheumatoid arthritis, involving unspecified site, unspecified whether rheumatoid factor present (Multi) BMI 22.0-22.9, adult documented in this encounter [facility] Work Phone: Evaluation note* Diagnosis UTI symptoms- Primary documented in this encounter [facility] Author Madhav Conrad [facility] August 02, 2022 12:52pm Note Date/Time August 02, 2022 12 :52pm [facility] [address] [place] [address] Gastroenterology H&P Signed Patient: Narciso Velasquez MR#: [id number] : 1940 Acct:[id number] Age/Sex: 81 / F Adm Date: 2 Loc: Room: Type: [facility] Attending Dr: Madhav Conrad MD [...] 1251 Signed By: <Electronically signed by Madhav Conrda MD> 08/02/22 1252 [facility] Work Phone: History general Narrative - [...] heart attack 11/2016 Hospitalization History SEE ABOVE [facility] Other Hospital course Narrative No data available for this section [facility] Hospital Discharge instructions No data available for this section [facility] Hospital Discharge instructions Additional Instructions DISCHARGE INSTRUCTIONS [...] Follow up with PCP. - Office number [phone].[facility] Work Phone: Progress note No data available for this section [facility] Reason for referral (narrative)* Consultation (Routine) - Authorized Specialty Diagnoses / Procedures Referred By Contac t Referred To Contact Cardiology Diagnoses Atherosclerosis of [place] coronary artery of [place] heart without angina pectoris Procedures Follow Up In Cardiology Donna Turcios MD [address] [place] [address], [address] [address] Donna Turcios MD [address] [place] [address] 2, [address] [address] Referral ID Status Reason Start Date Expiration Date V isits Requested Visits Authorized [id number] Authorized 07/18/2024 07/18/2025 [address] [facility] Work Phone: Summary Purpose Family History No Family History [...] Response Recorded Date/ Time Advance Directives No March 28th, 2 018 1:55pm Chief Complaint and Reason [...] growth (D49.2) Referral Organization [facility] Referring Provider First Name Alyssa Referring Provider Last Name Janee Referring Provider Specialty Nurse Pract itioner Referred Organization [facility] Referred Provider Castillo Mcgowan Thomas Referred Address ,[place], [place],[address] Referred Provider Specialty Dermatology Referral Priority Routine General Notes Xochitl Craig Pancho 021 02:26:04 PM >Received today and sent P2P even though the notes are not locked Additional Source Comments INFORMATION SOURCE (unrecogn ized section and content) DATE CREATED AUTHOR 04/19/2018 [facility] DATE CREATED AUTHOR AUTHOR'S ORGANIZ ATION [facility]/2020 [facility] DATE CREATED AUTHOR AUTHOR'S ORGANIZ ATION 12/01/2022 [facility] DATE CREATED AUTHOR AUTHOR'S ORGANIZ ATION 07/15/2023 [facility] DATE CREATED AUTHOR AUTHOR'S ORGANIZ ATION 07/22/2023 [facility] DATE CREATED AUTHOR AUTHOR'S ORGANIZ ATION 07/22/2023 [employer] DATE CREATED AUTHOR AUTHOR'S ORGANIZ ATION 07/20/2024 [facility] DATE CREATED AUTHOR AUTHOR'S ORGANIZ ATION 07/21/2024 [facility] DATE CREATED AUTHOR AUTHOR'S ORGANIZ ATION 08/09/2024 [facility] EPIC DATE CREATED AUTHOR AUTHOR'S ORGANIZ ATION 10/19/2024 [facility] REASON FOR VISIT (unrecogniz ed section and content) Reason Onset Date Comments Med Refill 07/11/2024 Reason Comments Follow-up Overdue rx needed Care Team (unrecognized sect ion and content) [...] Active Curtis Alcocer MD Attending Provider Active Occasional Caregiver Relationship Specialty Start Date End Date Pratik Tadeo MD [address] [place] [phone] PCP - General Family Medicine 12/27/23 Seema Sutherland NP [address] [place] [address] Referring Physician Nurse Practitioner 05/12/23 Sergio Cabral DO [address] [place] [address] Referring Physician Neurology 12/26/23 Occasional Caregiver Relationship Specialty Start Date End Date Pratik Tadeo MD [address] [place] [phone] PCP - General Family Medicine 12/27/23 Seema Sutherland NP [address] [place] [phone] Referring Physician Nurse Practitioner 05/12/23 Sergio Cabral DO [address] [place] [address] Referring Physician Neurology 12/26/23 Occasional Caregiver Relationship Specialty Start Date End Date Pratik Tadeo MD [address] [place] [phone] PCP - General Family Medicine 12/27/23 Seema Sutherland NP [address] [place] [phone] Referring Physician Nurse Practitioner 05/12/23 Sergio Cabral DO [address] [place] [address] Referring Physician Neurology 12/26/23 Occasional Caregiver Relationship Specialty Start Date End Date Pratik Tadeo MD [address] [place] [phone] PCP - General Family Medicine 12/27/23 Seema Sutherland NP [address] [place] [phone] Referring Physician Nurse Practitioner 05/12/23 Sergio Cabral DO [address] [place] [address] Referring Physician Neurology 12/26/23 Occasional Caregiver Relationship Specialty Start Date End Date Pratik Tadeo MD [address] [place] [phone] PCP - General Family Medicine 12/27/23 Seema Sutherland NP [address] [place] [phone] Referring Physician Nurse Practitioner 05/12/23 Sergio Cabral DO [address] [place] [address] Referring Physician Neurology 12/26/23 Occasional Caregiver Relationship Specialty Start Date End Date Pratik Tadeo MD [address] [place] [phone] PCP - General Family Medicine 12/27/23 Seema Sutherland, VITALIY [address] [place] [address] Referring Physician Nurse Practitioner 05/12/23 Sergio Cabral DO [address] [place] [address] Referring Physician Neurology 12/26/23 Occasional Caregiver Relationship Specialty Start Date End Date Pratik Tadeo MD [address] [place] [phone] PCP - General Family Medicine 12/27/23 Seema Sutherland NP [address] [place] [phone] Referring Physician Nurse Practitioner 05/12/23 Sergio Cabral DO [address] [place] [address] Referring Physician Neurology 12/26/23 Occasional Caregiver Relationship Specialty Start Date End Date Pratik Tadeo MD PCP - General 10/30/21 Occasional Caregiver Relationship Specialty Start Date End Date Pratik Tadeo MD [address] [place] [phone] PCP - General Family Medicine 12/27/23 Seema Sutherland NP [address] [place] [phone] Referring Physician Nurse Practitioner 05/12/23 Sergio Cabral DO [address] [place] [address] Referring Physician Neurology 12/26/23 Goals (unrecognized section [...] BE BASED ON THE PRIMARY CLINICAL RECORDS. [facility] Pint Please [facility]. provides no warranty or guarantee of the accuracy or completeness of information in this document.
[2024-10-28] MEDS: 0.9 % SODIUM CHLORIDE 1,000 ML 75 ML IV (20:53)
[2024-10-28] MEDS: LEVOFLOXACIN IN DEXTROSE 5 % 750 MG/150 ML PREMIX 100 MG IV (20:53)
[2024-10-28] MEDS: GABAPENTIN 300 MG CAPSULE 600 MG PO (22:10)
[2024-10-28] MEDS: TRIHEXYPHENIDYL HCL 2 MG TABLET PO (22:11)
[2024-10-28] MEDS: PRAMIPEXOLE 0.125 MG TABLET 0.25 MG PO (22:11)
[2024-10-28] MEDS: ACETAMINOPHEN 500 MG TABLET 1000 MG PO (22:11)
[2024-10-28 22:38] LABS: Anion Gap 9.8; BUN Creatinine Ratio 9.2; Carbon Dioxide 28.9 mmol/L (21.0-32.0); Chloride 107 mmol/L (98-107); Estimated GFR (African America >60 (>=60 mL/min/1.73m^2); Estimated GFR (Non-African Ame >60 (>=60 mL/min/1.73m^2); Glucose 103 mg/dL (74-106); Magnesium 1.9 mg/dL (1.8-2.4); Potassium 3.7 mmol/L (3.5-5.1); Sodium 142 mmol/L (136-145)
[2024-10-28 22:43] LABS: Calcium 5.4 mg/dL (8.5-10.1); Lactate/Lactic Acid 2.2 mmol/L (0.4-2.0)
[2024-10-29] VITALS (8 sets, daily range): BP systolic 111–121; BP diastolic 66–72; PULSE 92–154; TEMP 36.4–36.6; O2SAT 93–95
[2024-10-29] MEDS: MAGNESIUM SULFATE IN WATER 2 GM/50 ML PREMIX IV (01:28)
[2024-10-29] MEDS: CALCIUM GLUC IN NACL, ISO-OSM 1 GM/50 ML PLAST..BAG IV ×2 (01:34→02:16)
[2024-10-29] MEDS: LEVOTHYROXINE SODIUM 88 MCG TABLET PO (05:36)
[2024-10-29 06:08] LABS: Basophils Percent Auto 0.8 % (0.2-2.0); Eosinophils Absolute Auto 0.2 10^3/uL (0.0-0.7); Hemoglobin 10.1 g/dL (12.0-16.0); Immature Granulocytes Abs Auto 0.02 10^3/uL (0.00-0.03); Immature Granulocytes Pct Auto 0.4 % (0.0-0.5); Lymphocytes Absolute Auto 1.2 10^3/uL (1.2-3.8); Lymphocytes Percent Auto 24.2 % (20.5-60.0); Mean Corpuscular HGB Conc 31.6 g/dL (29.9-35.2); Mean Corpuscular Hemoglobin 29.7 pg (26.7-34.0); Mean Corpuscular Volume 94.1 fL (81.0-99.0); Mean Platelet Volume 9.2 fL (9.5-13.5); Monocytes Absolute Auto 0.5 10^3/uL (0.3-0.8); Monocytes Percent Auto 9.2 % (1.7-12.0); Neutrophils Absolute Auto 3.1 10^3/uL (1.4-6.5); Neutrophils Percent Auto 62.4 % (43.0-75.0); Platelet Count 287 10^3/uL (150-450); Red Cell Distribution Width 15.9 % (11.0-15.0)
[2024-10-29 06:26] LABS: Phosphorus 4.4 mg/dL (2.6-4.7)
[2024-10-29 06:28] LABS: Alanine Aminotransferase 13 U/L (14-59); Albumin Globulin Ratio 0.7; Albumin Level 2.4 g/dL (3.4-5.0); Alkaline Phosphatase 54 U/L (46-116); Anion Gap 11.5; Aspartate Amino Transferase 22 U/L (15-37); BUN Creatinine Ratio 10.4; Bilirubin Total 0.5 mg/dL (0.2-1.0); Calcium 6.1 mg/dL (8.5-10.1); Carbon Dioxide 29.2 mmol/L (21.0-32.0); Chloride 107 mmol/L (98-107); Estimated GFR (African America >60 (>=60 mL/min/1.73m^2); Estimated GFR (Non-African Ame >60 (>=60 mL/min/1.73m^2); Globulin 3.6 g/dL; Glucose 91 mg/dL (74-106); Magnesium 2.6 mg/dL (1.8-2.4); Potassium 3.7 mmol/L (3.5-5.1); Sodium 144 mmol/L (136-145)
--- NOTE | 2024-10-29 09:00 | CM.NOTE ---
Rounds made with Dr. Hamlin, pt will discharge to home today. PT and OT to evaluate pt prior to discharge for any discharge needs.
[2024-10-29] MEDS: ATORVASTATIN CALCIUM 20 MG TABLET PO (09:22)
[2024-10-29] MEDS: PRAMIPEXOLE 0.125 MG TABLET 0.25 MG PO (09:22)
[2024-10-29] MEDS: GABAPENTIN 300 MG CAPSULE 600 MG PO (09:22)
[2024-10-29] MEDS: CALCITRIOL 0.25 MCG CAPSULE PO (09:22)
[2024-10-29] MEDS: TRIHEXYPHENIDYL HCL 2 MG TABLET PO (09:22)
[2024-10-29 09:46] LABS: BOX Test Reference Lab FIRELANDS
--- NOTE | 2024-10-29 10:37 | CM.NOTE ---
Important Message From Medicare discussed with pt, pt verbalizes understanding and signs paper. Original given to pt and copy placed in pt's chart.
--- NOTE | 2024-10-29 10:38 | SWNOTE1 ---
LAN spoke to OT and HH is recommended. SW stopped in and spoke with patient. Pt voiced she was doing well at home. SW asked about rehab and she voiced it went well at [facility] and she was only there for about a week. SW asked her about home health and she voiced she does have it, but they were not coming in until the beginning of the year. She is not sure the company, but her PCP was setting it up. SW to call. Pt voiced she was doing well at home. Pt plans on returning home and will do HH. LAN called her PCP, but the office was closed. LAN called her . He voiced it is [facility] that is supposed to be coming in. They have not come in yet, but he has there numbers. LAN advised that SW will be sending [facility] information so he does not have to call. LAN advised pt's that pt will be discharged home today. He voiced he was happy about this and he will be coming to get her. LAN to let pt know. LAN let pt know that will be picking her up. She did ask about clothes and a coat? LAN called back and he has her coat in the car. Pt does have clothes here and her shoes here. Pt's voiced he will be over in about 45 minutes. LAN let nursing know. LAN sent CRF, dc med rec, ED note, H&P, and OT note to [facility].
--- NOTE | 2024-10-29 12:57 | P.DS_ITS ---
DS: Providers Provider Date of admission: 10/28/24 19:27 Primary care physician: Seema Sutherland NP Consults: 10/28/24 Consult to Dietitian Routine Reason for consultation: pressure sore Has provider been notified: No 10/28/24 18:57 Occupational Therapy Eval and Treat Routine Reason for consultation: Only if needed for Rehab Has provider been notified: No Physical Therapy Eval and Treat Routine Reason for consultation: Eval and Treat Has provider been notified: No DS: Diagnosis Discharge Diagnosis (1) Acute UTI: (2) Hypokalemia: (3) Hypomagnesemia: (4) Hypocalcemia: (5) Severe malnutrition: (6) Parkinson disease: Qualifiers: Dyskinesia presence: with dyskinesia Fluctuating manifestations: without fluctuating manifestations Qualified Code(s): G20.B1 - Parkinson's d isease with dyskinesia, without mention of fluctuations Plan Admission findings: Sinus tachycardia, respiratory distress, significant anemia, severe hypokalemia, severe hypocalcemia, severe hypomagnesemia, acute UTI Acute UTI likely complicating all of the above-IV antibiotics, culture for urine and blood are pending Hypomagnesemia-supplement, repeat lab later tonight and in a.m. Hypokalemia-repeat lab later on tonight and in a.m. supplement Hypocalcemia-supplement Iron deficiency anemia-monitor daily Parkinson's disease-patient still very sharp, she is able to feed herself despite the tremor. Swallowing without difficulty. Severe protein calorie malnutrition-diet supplement Hypothyroidism-check levels Hypercholesterolemia with coronary artery disease-continue with home medications Admission status: Patient initially be placed in inpatient status, the severity of her calcium, potassium, magnesium will warrant a 2 midnight stay as medically necessary treatment will span 2 midnights. IV antibiotics and culture results will not be back for 2 days as well. DS: Summary Hospital Course Hospital Course: Patient was seen and evaluated, I saw patient actually in the emergency room, patient had significant findings for sepsis and lactic acidosis with severe hypokalemia hypomagnesemia and hypocalcemia. She was treated with IV medications to improve those her calcium is still low we added oral agents today, but her potassium and magnesium are much improved, much faster than anticipated, she is found to have acute UTI along again with a lactic acidosis resulting in sepsis. She did improve much faster than anticipated she was placed inpatient status secondary to severe electrolyte abnormalities and the sepsis. She feels much improved and would prefer to be discharged to home and promises to follow-up closely with her PCP. See PCP within the next week, medications see list Status at Discharge Overall status at discharge: patient is not back to baseline Time Spent with Patient Time attestation: Total time spent providing and/or coordinating discharge services: Time spent: greater than 30 minutes Exam Constitutional Vital Signs, click to edit/add: Last Vital Signs Temp 97.6 F 10/29/24 08:00 Pulse 116 H 10/29/24 09:57 Resp 20 10/29/24 08:00 BP 111/66 10/29/24 08:00 Pulse Ox 93 L 10/29/24 10:42 O2 Del Method Room Air 10/29/24 10:42 Documenting provider has reviewed patient's vital signs: yes Common normals: no apparent distress (Tremor persisting though) Respiratory Common normals: normal respiratory effort and no retractions Cardio Common normals: regular rhythm; irregular rate Rate: tachycardic GI Common normals: Normal to inspection, nondistended, normoactive bowel sounds present and soft to palpation; tender Palpation: tender (LowerAbdomen:) Neuro Common normals: oriented x3, CN's II-XII intact bilaterally and moves all extremities Other: Parkinsonian type tremor DS: Data Data Completed and Pending Labs on day of discharge: Labs from last 24 hours 10/29/24 10/28/24 10/28/24 05:43 22:10 15:50 WBC 5.0 RBC 3.40 L Hgb 10.1 L Hct 32.0 L MCV 94.1 MCH 29.7 MCHC 31.6 RDW 15.9 H Plt Count 287 MPV 9.2 L Neut % (Auto) 62.4 Lymph % (Auto) 24.2 [place] % (Auto) 9.2 Eos % (Auto) 3.0 Baso % (Auto) 0.8 Neut # (Auto) 3.1 Lymph # (Auto) 1.2 [place] # (Auto) 0.5 Eos # (Auto) 0.2 Baso # (Auto) 0.0 Abs Immat Gran (auto) 0.02 Imm/Tot Granulo (auto) 0.4 Sodium 144 142 Potassium 3.7 3.7 Chloride 107 107 Carbon Dioxide 29.2 28.9 Anion Gap 11.5 9.8 BUN 8.0 8.0 Creatinine 0.77 0.87 Est GFR ( Amer) >60 >60 Est GFR (Non-Af Amer) >60 >60 BUN/Creatinine Ratio 10.4 9.2 Glucose 91 103 Lactate 2.2 H* Calcium 6.1 L 5.4 L* Phosphorus 4.4 Magnesium 2.6 H 1.9 Total Bilirubin 0.5 AST 22 ALT 13 L Alkaline Phosphatase 54 Troponin I High Sens Total Protein 6.0 L Albumin 2.4 L Globulin 3.6 Albumin/Globulin Ratio 0.7 TSH Thyroxine (T4) Free T3 Urine Color Yellow Urine Clarity Cloudy A Urine pH 6.0 Ur Specific [place] 1.025 Urine Protein 30 A Urine Glucose (UA) Negative Urine Ketones Negative Urine Occult Blood Small A Urine Nitrite Positive A Urine Bilirubin Negative Urine Urobilinogen 0.2 Ur Leukocyte Esterase Small A Urine RBC 0-2 Urine WBC 50-75 A Ur Squamous Epith Cells Few A Urine Crystals None seen Urine Bacteria Large A Urine Casts None seen Urine Mucus None seen Ur Culture Indicated? Yes Ref Lab Order Date 10/28/24 Ref Lab Test Name Urine culture Ref Test Addition [facility] 10/28/24 14:25 WBC 9.7 RBC 3.36 L Hgb 10.2 L Hct 32.0 L MCV 95.2 MCH 30.4 MCHC 31.9 RDW 15.9 H Plt Count 294 MPV 8.7 L Neut % (Auto) 74.5 Lymph % (Auto) 16.6 L [place] % (Auto) 7.2 Eos % (Auto) 0.8 L Baso % (Auto) 0.5 Neut # (Auto) 7.2 H Lymph # (Auto) 1.6 [place] # (Auto) 0.7 Eos # (Auto) 0.1 Baso # (Auto) 0.1 Abs Immat Gran (auto) 0.04 H Imm/Tot Granulo (auto) 0.4 Sodium 144 Potassium 2.5 L* Chloride 105 Carbon Dioxide 28.1 Anion Gap 13.4 BUN 13.0 Creatinine 0.86 Est GFR ( Amer) >60 Est GFR (Non-Af Amer) >60 BUN/Creatinine Ratio 15.1 Glucose 84 Lactate 2.3 H* Calcium 5.8 L* Phosphorus Magnesium 1.3 L Total Bilirubin 0.3 AST 20 ALT 13 L Alkaline Phosphatase 58 Troponin I High Sens 7.2 Total Protein 6.5 Albumin 2.7 L Globulin 3.8 Albumin/Globulin Ratio 0.7 TSH 1.310 Thyroxine (T4) 8.80 Free T3 1.91 L Urine Color Urine Clarity Urine pH Ur Specific [place] Urine Protein Urine Glucose (UA) Urine Ketones Urine Occult Blood Urine Nitrite Urine Bilirubin Urine Urobilinogen Ur Leukocyte Esterase Urine RBC Urine WBC Ur Squamous Epith Cells Urine Crystals Urine Bacteria Urine Casts Urine Mucus Ur Culture Indicated? Ref Lab Order Date Ref Lab Test Name Ref Test Addition Info Discharge Plan Discharge Disposition: Home Health Service Discharge Medications: New magnesium oxide 400 mg (241.3 mg magnesium) Tablet 400 mg PO QD Qty: 30 11RF calcium carbonate 200 mg calcium (500 mg) Tablet,Chewable 400 mg PO ACHS Qty: 100 11RF cefdinir 300 mg capsule 600 mg PO DAILY Qty: 20 0RF Continued acetaminophen 325 mg Tablet 650 mg PO Q4H PRN (Reason: Pain 1-4) 15 Days Qty: 30 0RF levothyroxine 88 mcg tablet 88 mcg PO DAILY Qty: 30 0RF calcitriol 0.25 mcg capsule 0.25 mcg PO QDAY atorvastatin 20 mg tablet 20 mg PO DAILY gabapentin 300 mg capsule 600 mg PO BID pramipexole 0.25 mg tablet 0.25 mg PO BID trihexyphenidyl 2 mg tablet 2 mg PO BID Print Language: Hungarian Patient Instructions: Cefdinir (By mouth), Calcium Supplement (By mouth), Magnesium Oxide (By mouth), Urinary Tract Infection in Older Adults (DC) Inletter/Field Service Specialist Instructions: Resume [facility] at discharge Forms: Portal Instructions Follow Up Appointments: Please call Seema Sutherland NP to schedule a follow up appt. for 5-7 days following discharge. [phone] Discharge Date/Time: 10/29/24 11:26
--- NOTE | 2024-10-31 14:27 | CM.DCFOLLOWU ---
Person spoke with: Valerie How are you feeling? Making it How is your pain? No pain Did you understand your discharge instructions? Yes Do you have any questions about your discharge instructions? No Were you given any prescriptions at discharge? Yes Were you able to get your prescriptions filled? Picked up one and the other 2 will be ready today Do you understand how to take your medications as ordered? Yes Do you have any questions about your follow up appointment and do you plan to keep your follow up appointment? No I will call and schedule today Is there anything else that you would like to discuss? No Questions/Comments/Concerns/Other:
== END 2024-10-29 11:26 | disposition home health service (06) | DRG 871 ==
LOC: ER 13:38 → MS 19:33
PROVIDERS: Admitting Provider Family Medicine; Emergency Provider Emergency Medicine; PCP Nurse Practitioner; Visit Provider Family Medicine
DX: A41.9 Sepsis, unspecified organism (principal); E43 Unspecified severe protein-calorie malnutrition; N39.0 Urinary tract infection, site not specified; Z68.1 Body mass index [BMI] 19.9 or less, adult; E87.20 Acidosis, unspecified; E83.51 Hypocalcemia; E87.6 Hypokalemia; E83.42 Hypomagnesemia; G20.B1 Parkinson's disease with dyskinesia, without mention of fluctuations; D50.9 Iron deficiency anemia, unspecified; E03.9 Hypothyroidism, unspecified; E78.00 Pure hypercholesterolemia, unspecified; I25.10 Atherosclerotic heart disease of native coronary artery without angina pectoris; Z79.890 Hormone replacement therapy; Z79.899 Other long term (current) drug therapy
CPT/HCPCS: 36415; 70450; 80048; 80053; 81001; 83605; 83735; 84100; 84436; 84443; 84481; 84484; 85025; 87086; 93005; 94761; 96365; 96367; 97165; 99285; J0613; J0696; J3475

== ENCOUNTER 2024-11-03 16:13 | Observation (INO) | payer MEDICARE, SELFPAY ==
[2024-11-03] VITALS (21 sets, daily range): BP systolic 121–153; BP diastolic 65–87; PULSE 68–141; TEMP 36.3–36.4; O2SAT 94–99; BMI 16.3
--- NOTE | 2024-11-03 16:36 | ECG_ITS ---
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
[2024-11-03 16:45] LABS: Basophils Percent Auto 0.5 % (0.2-2.0); Eosinophils Absolute Auto 0.1 10^3/uL (0.0-0.7); Hematocrit 37.6 % (36.0-48.0); Hemoglobin 11.8 g/dL (12.0-16.0); Immature Granulocytes Abs Auto 0.02 10^3/uL (0.00-0.03); Immature Granulocytes Pct Auto 0.2 % (0.0-0.5); Lymphocytes Absolute Auto 1.7 10^3/uL (1.2-3.8); Lymphocytes Percent Auto 19.9 % (20.5-60.0); Mean Corpuscular HGB Conc 31.4 g/dL (29.9-35.2); Mean Corpuscular Hemoglobin 29.9 pg (26.7-34.0); Mean Corpuscular Volume 95.4 fL (81.0-99.0); Mean Platelet Volume 8.8 fL (9.5-13.5); Monocytes Absolute Auto 0.5 10^3/uL (0.3-0.8); Monocytes Percent Auto 6.3 % (1.7-12.0); Neutrophils Absolute Auto 6.2 10^3/uL (1.4-6.5); Neutrophils Percent Auto 72.1 % (43.0-75.0); Platelet Count 300 10^3/uL (150-450); Red Blood Count 3.94 10^6/uL (4.20-5.40); Red Cell Distribution Width 15.9 % (11.0-15.0); White Blood Count 8.6 10^3/uL (4.0-11.0)
--- NOTE | 2024-11-03 16:47 | ED_ITS ---
Documented by User: Alexandru Paredes 11/03/24 17:53 HPI HPI - General Adult General Chief complaint: Weakness Stated complaint: weakness Time Seen by Provider: 11/03/24 16:29 Source: family Mode of arrival: Wheelchair History of Present Illness HPI narrative: pt brought in by for evaluation after the patient complained of pain in the right arm - where she has a skin tear - and pain along the left buttock - where she has a decubitus ulcer. He told us that she has been very weak with difficulty standing today and has not been eating or drinking like she normally does. She is on an antibiotic for UTI that was started a few days ago. Chart review shows that she was recently admitted and treated for electrolyte deficit and UTI. No nausea or vomiting. The patient denies any abdominal pain. No fever or chills, no cough or cold symptoms. Related Data Home Medications ?Medication ?Instructions ?Recorded ?Confirmed atorvastatin 20 mg tablet 20 mg PO DAILY 08/07/24 10/28/24 gabapentin 300 mg capsule 600 mg PO BID 08/07/24 10/28/24 pramipexole 0.25 mg tablet 0.25 mg PO BID 08/07/24 10/28/24 trihexyphenidyl 2 mg tablet 2 mg PO BID 08/07/24 10/28/24 calcitriol 0.25 mcg capsule 0.25 mcg PO QDAY 10/28/24 10/28/24 Previous Rx's ?Medication ?Instructions ?Recorded acetaminophen 325 mg tablet 650 mg (2 x 325 mg) PO Q4H PRN 08/28/24 Pain 1-4 15 days #30 tabs levothyroxine 88 mcg tablet 88 mcg PO DAILY #30 tabs 09/25/24 calcium carbonate 400 mg (2 x 200 mg calcium (500 10/29/24 mg)) PO ACHS #100 tabs cefdinir 300 mg capsule 600 mg (2 x 300 mg) PO DAILY #20 10/29/24 caps magnesium oxide 400 mg (241.3 mg 400 mg PO QD #30 tabs 10/29/24 magnesium) tablet Allergies Allergy/AdvReac Type Severity Reaction Status Date / Time No Known Drug Allergies Allergy Verified 11/03/24 16:28 Opioid HPI Opioid Management Most Recent Opioid Data: Last Pain Scale 10 10/28/24 22:11 10/28/24 Last Pain Intensity 0 08/26/24 13:56 08/26/24 Last Pain Assessment 10/29/24 11:00 Last MAR Pain Assessment 11/03/24 18:04 Last ORT Total Score 0 10/28/24 19:45 10/28/24 Last ORT Risk Category Low Risk 10/28/24 19:45 10/28/24 [facility] Medical History Moderate protein malnutrition ?E44.0 - Moderate protein-calorie malnutrition (ICD-10) Malnutrition ?E46 - Unspecified protein-calorie malnutrition (ICD-10) Hypocalcemia ?E83.51 - Hypocalcemia (ICD-10) Situational anxiety ?F41.8 - Other specified anxiety disorders (ICD-10) Coarse tremors ?G25.2 - Other specified forms of tremor (ICD-10) Hypothyroid ?E03.9 - Hypothyroidism, unspecified (ICD-10) Chronic pain disorder ?G89.4 - Chronic pain syndrome (ICD-10) HLD (hyperlipidemia) ?E78.5 - Hyperlipidemia, unspecified (ICD-10) CAD (coronary artery disease) ?I25.10 - Atherosclerotic heart disease of [place] coronary artery without angina pectoris (ICD-10) Parkinson disease ?G20.A1 - Parkinson's disease without dyskinesia, without mention of fluctuations (ICD-10) High cholesterol ?E78.00 - Pure hypercholesterolemia, unspecified (ICD-10) CVA (cerebral vascular accident) ?I63.9 - Cerebral infarction, unspecified (ICD-10) Surgical History (Updated 08/07/24 @ 13:59 by Melissa San RN) History of bowel resection ?Z90.49 - Acquired absence of other specified parts of digestive tract (ICD- 10) H/O heart artery stent ?Z95.5 - Presence of coronary angioplasty implant and graft (ICD-10) Family History (Updated 08/07/24 @ 15:45 by Tanvi Boles) Father Family history of myocardial infarction Social History (Updated 08/07/24 @ 15:45 by Tanvi Boles) Within the past year, how often did you have a drink containing alcohol: never Within the past year, how often did you have six or more drinks on one occasion: never Score interpretation: A score less than 3 is consistent with normal alcohol consumption. Smoking status: Never smoker Second hand tobacco smoke exposure: No Non-prescribed substance use: denies use Previous occupational history: Retired from [employer] Known occupational exposures/hazards: No Highest level of school completed/degree received: high school graduate Are you now , , , , never or living with a partner: In a typical week, how many times do you talk on the telephone with family, friends, or neighbors: 3 or more times per week How often do you get together with friends or relatives: 3 or more times per week How often do you attend sabianism or synagogue services: 4 or more times per year Do you belong to any clubs or organizations such as sabianism groups unions, [employer] or athletic groups, or school groups: no Total score: 3 Score interpretation: A score of greater than or equal to 2 indicates the lowest level of social isolation. Little interest or pleasure in doing things: not at all Feeling down, depressed, or hopeless: not at all Feel stressed/tense/nervous/anxious/difficulty sleeping: not at all Due to disability, difficulty making decisions: No Do you think of yourself as: straight/heterosexual Gender Identity: female Exam Narrative Exam Narrative: Nurses notes and vital signs reviewed and patient is not hypoxic. afebrile General: Well-appearing and in no apparent distress. Skin: Warm, dry, no pallor noted. skin tear to right forearm - no sign of infection or foreign material. Decubitus ulcer left buttock without sign of infection. Head: Normocephalic, atraumatic. Neck: Supple, non-tender. Eye: Pupils are equal, round and EOMI. No scleral icterus. Ears, Nose, Mouth, and Throat: Oral mucosa is dry Cardiovascular: tachycardia. Respiratory: No accessory muscle use or respiratory distress. Lungs are clear to auscultation, no wheezing, rales or rhonchi Chest Wall: no tenderness Back: No midline thoracic or lumbar vertebral tenderness. No CVA tenderness Musculoskeletal: normal ROM, no calf or popliteal tenderness, no lower extremity edema/swelling. Right forearm with skin tear without sign of infection. GI: Abdomen is soft, non-distended. Normal bowel sounds. No tenderness to palpation. No rebound, guarding, or rigidity noted. Neurological: A&O x4. No cranial nerve dysfunction observed. Moves all extremities but does so weakly. Sensation intact. Psychiatric: Cooperative and interactive. Normal mood and affect. Constitutional Vital Signs, click to edit/add: Last Vital Signs Temp 97.3 F L 11/03/24 16:28 Pulse 94 H 11/03/24 19:00 Resp 20 11/03/24 19:00 BP 123/65 11/03/24 18:30 Pulse Ox 96 11/03/24 19:00 Course Vital Signs Vital signs: Vital Signs Temperature 97.3 F L 11/03/24 16:28 Pulse Rate 102 H 11/03/24 16:28 Respiratory Rate 16 11/03/24 16:28 Blood Pressure 135/75 11/03/24 16:28 Pulse Oximetry 98 11/03/24 16:28 Temperature 97.3 F L 11/03/24 16:28 Pulse Rate 94 H 11/03/24 19:00 Respiratory Rate 20 11/03/24 19:00 Blood Pressure 123/65 11/03/24 18:30 Pulse Oximetry 96 11/03/24 19:00 Medical Decision Making MDM Narrative Medical decision making narrative: Patient was placed on property assessment monitor and EKG obtained. Blood drawn and sent for evaluation. Urine was ordered to be sent for testing. she was ordered to receive a liter of normal saline IV fluid. She was found to have slightly decreased magnesium so we repleted that through the IV. The rest of her blood tests did not reveal anything worrisome. She was given ultram for pain - which she localized to the right forearm and left butt ock. ED nurse dressed the left buttock decubitus ulcer with topical A&D ointment and applied a padding bandage to the area. Small amount of urine obtained by straight cath - it shows UTI but she is on Abx - will await urine culture results. Patient and spouse informed of results. . Medical Records Medical records reviewed: Yes I reviewed the patient's medical records Lab Data Lab results reviewed: Yes I reviewed the patient's lab results Labs: Lab Results 11/03/24 11/03/24 Range/Units 16:38 17:34 WBC 8.6 (4.0-11.0) 10^3/uL RBC 3.94 L (4.20-5.40) 10^6/uL Hgb 11.8 L (12.0-16.0) g/dL Hct 37.6 (36.0-48.0) % MCV 95.4 (81.0-99.0) fL MCH 29.9 (26.7-34.0) pg MCHC 31.4 (29.9-35.2) g/dL RDW 15.9 H (11.0-15.0) % Plt Count 300 (150-450) 10^3/uL MPV 8.8 L (9.5-13.5) fL Neut % (Auto) 72.1 (43.0-75.0) % Lymph % (Auto) 19.9 L (20.5-60.0) % [place] % (Auto) 6.3 (1.7-12.0) % Eos % (Auto) 1.0 (0.9-7.0) % Baso % (Auto) 0.5 (0.2-2.0) % Neut # (Auto) 6.2 (1.4-6.5) 10^3/uL Lymph # (Auto) 1.7 (1.2-3.8) 10^3/uL [place] # (Auto) 0.5 (0.3-0.8) 10^3/uL Eos # (Auto) 0.1 (0.0-0.7) 10^3/uL Baso # (Auto) 0.0 (0.0-0.1) 10^3/uL Abs Immat Gran (auto) 0.02 (0.00-0.03) 10^3/uL Imm/Tot Granulo (auto) 0.2 (0.0-0.5) % Sodium 145 (136-145) mmol/L Potassium 3.7 (3.5-5.1) mmol/L Chloride 105 (98-107) mmol/L Carbon Dioxide 30.7 (21.0-32.0) mmol/L Anion Gap 13.0 BUN 21.0 H (7.0-18.0) mg/dL Creatinine 0.95 (0.55-1.02) mg/dL Est GFR ( Amer) >60 (>=60 mL/min/1.73m^2) Est GFR (Non-Af Amer) 56 L (>=60 mL/min/1.73m^2) BUN/Creatinine Ratio 22.1 Glucose 98 (74-106) mg/dL Lactate 1.9 (0.4-2.0) mmol/L Calcium 7.0 L (8.5-10.1) mg/dL Phosphorus 4.9 H (2.6-4.7) mg/dL Magnesium 1.7 L (1.8-2.4) mg/dL Total Bilirubin 0.4 (0.2-1.0) mg/dL AST 34 (15-37) U/L ALT 24 (14-59) U/L Alkaline Phosphatase 60 (46-116) U/L Troponin I High Sens 5.0 (4.0-51.3) pg/mL NT-Pro-B Natriuret Pep 928.0 (<=1800.0) pg/mL Total Protein 7.2 (6.4-8.2) g/dL Albumin 3.1 L (3.4-5.0) g/dL Globulin 4.1 g/dL Albumin/Globulin Ratio 0.8 Urine Color Lt. yellow (YELLOW) Urine Clarity Clear (CLEAR) Urine pH 7.5 (5.0-9.0) Ur Specific [place] 1.020 (1.005-1.025) Urine Protein 30 A (NEG/TRACE) mg/dL Urine Glucose (UA) Negative (NEGATIVE) mg/dL Urine Ketones 15 A (NEGATIVE) mg/dL Urine Occult Blood Trace-i (NEGATIVE) Urine Nitrite Negative (NEGATIVE) Urine Bilirubin Negative (NEGATIVE) Urine Urobilinogen 0.2 (0.2-1.0) EU/dL Ur Leukocyte Esterase Small A (NEGATIVE) Urine RBC 2-5 A (0-2) #/HPF Urine WBC 10-20 A (NONE SEEN) #/HPF Ur Squamous Epith Cells Few A (NONE/RARE) #/LPF Urine Crystals None seen (None Seen) #/HPF Urine Bacteria Trace A (NONE SEEN) #/HPF Urine Casts None seen (NONE SEEN) #/LPF Urine Mucus None seen (NONE SEEN) Ur Culture Indicated? Yes ECG Data Attestation: I personally reviewed and interpreted this ECG as follows: Interpretation: EKG interpretation: Emergency Department physician interpretation. Atrial fibrillation at 104 bpm. Left axis deviation. Normal remaining intervals and no ST segment elevation or depression. Discharge Plan Discharge Chief Complaint: Weakness Clinical Impression: Hypomagnesemia, Weakness, Decubitus skin ulcer, UTI (urinary tract infection), Failure to thrive in adult Patient Disposition: Admitted as Observation Time of Disposition Decision: 19:46 Condition: Fair Prescriptions / Home Meds: No Action acetaminophen 325 mg Tablet 650 mg PO Q4H PRN (Reason: Pain 1-4) 15 Days Qty: 30 0RF levothyroxine 88 mcg tablet 88 mcg PO DAILY Qty: 30 0RF calcitriol 0.25 mcg capsule 0.25 mcg PO QDAY magnesium oxide 400 mg (241.3 mg magnesium) Tablet 400 mg PO QD Qty: 30 11RF calcium carbonate 200 mg calcium (500 mg) Tablet,Chewable 400 mg PO ACHS Qty: 100 11RF cefdinir 300 mg capsule 600 mg PO DAILY Qty: 20 0RF atorvastatin 20 mg tablet 20 mg PO DAILY gabapentin 300 mg capsule 600 mg PO BID pramipexole 0.25 mg tablet 0.25 mg PO BID trihexyphenidyl 2 mg tablet 2 mg PO BID Print Language: Salvad[place] Referrals: Seema Sutherland [employer] [Primary Care Provider] - 1 week Documented by User: Bhavna Weinberg MD 11/03/24 19:48 HPI HPI - General Adult General Chief complaint: Weakness Stated complaint: weakness Time Seen by Provider: 11/03/24 16:29 Related Data Home Medications ?Medication ?Instructions ?Recorded ?Confirmed atorvastatin 20 mg tablet 20 mg PO DAILY 08/07/24 10/28/24 gabapentin 300 mg capsule 600 mg PO BID 08/07/24 10/28/24 pramipexole 0.25 mg tablet 0.25 mg PO BID 08/07/24 10/28/24 trihexyphenidyl 2 mg tablet 2 mg PO BID 08/07/24 10/28/24 calcitriol 0.25 mcg capsule 0.25 mcg PO QDAY 10/28/24 10/28/24 Previous Rx's ?Medication ?Instructions ?Recorded acetaminophen 325 mg tablet 650 mg (2 x 325 mg) PO Q4H PRN 08/28/24 Pain 1-4 15 days #30 tabs levothyroxine 88 mcg tablet 88 mcg PO DAILY #30 tabs 09/25/24 calcium carbonate 400 mg (2 x 200 mg calcium (500 10/29/24 mg)) PO ACHS #100 tabs cefdinir 300 mg capsule 600 mg (2 x 300 mg) PO DAILY #20 10/29/24 caps magnesium oxide 400 mg (241.3 mg 400 mg PO QD #30 tabs 10/29/24 magnesium) tablet Allergies Allergy/AdvReac Type Severity Reaction Status Date / Time No Known Drug Allergies Allergy Verified 11/03/24 16:28 Opioid HPI Opioid Management Most Recent Opioid Data: Last Pain Scale 10 10/28/24 22:11 10/28/24 Last Pain Intensity 0 08/26/24 13:56 08/26/24 Last Pain Assessment 10/29/24 11:00 Last MAR Pain Assessment 11/03/24 18:04 Last ORT Total Score 0 10/28/24 19:45 10/28/24 Last ORT Risk Category Low Risk 10/28/24 19:45 10/28/24 PFSH PFSH Medical History Moderate protein malnutrition ?E44.0 - Moderate protein-calorie malnutrition (ICD-10) Malnutrition ?E46 - Unspecified protein-calorie malnutrition (ICD-10) Hypocalcemia ?E83.51 - Hypocalcemia (ICD-10) Situational anxiety ?F41.8 - Other specified anxiety disorders (ICD-10) Coarse tremors ?G25.2 - Other specified forms of tremor (ICD-10) Hypothyroid ?E03.9 - Hypothyroidism, unspecified (ICD-10) Chronic pain disorder ?G89.4 - Chronic pain syndrome (ICD-10) HLD (hyperlipidemia) ?E78.5 - Hyperlipidemia, unspecified (ICD-10) CAD (coronary artery disease) ?I25.10 - Atherosclerotic heart disease of [place] coronary artery without angina pectoris (ICD-10) Parkinson disease ?G20.A1 - Parkinson's disease without dyskinesia, without mention of fluctuations (ICD-10) High cholesterol ?E78.00 - Pure hypercholesterolemia, unspecified (ICD-10) CVA (cerebral vascular accident) ?I63.9 - Cerebral infarction, unspecified (ICD-10) Surgical History (Updated 08/07/24 @ 13:59 by Melissa San RN) History of bowel resection ?Z90.49 - Acquired absence of other specified parts of digestive tract (ICD- 10) H/O heart artery stent ?Z95.5 - Presence of coronary angioplasty implant and graft (ICD-10) Family History (Updated 08/07/24 @ 15:45 by Tanvi Boles) Father Family history of myocardial infarction Social History (Updated 08/07/24 @ 15:45 by Tanvi Boles) Within the past year, how often did you have a drink containing alcohol: never Within the past year, how often did you have six or more drinks on one occasion: never Score interpretation: A score less than 3 is consistent with normal alcohol consumption. Smoking status: Never smoker Second hand tobacco smoke exposure: No Non-prescribed substance use: denies use Previous occupational history: Retired from [employer] Known occupational exposures/hazards: No Highest level of school completed/degree received: high school graduate Are you now , , , , never or living with a partner: In a typical week, how many times do you talk on the telephone with family, friends, or neighbors: 3 or more times per week How often do you get together with friends or relatives: 3 or more times per week How often do you attend sabianism or synagogue services: 4 or more times per year Do you belong to any clubs or organizations such as sabianism groups unions, fraternal or athletic groups, or school groups: no Total score: 3 Score interpretation: A score of greater than or equal to 2 indicates the lowest level of social isolation. Little interest or pleasure in doing things: not at all Feeling down, depressed, or hopeless: not at all Feel stressed/tense/nervous/anxious/difficulty sleeping: not at all Due to disability, difficulty making decisions: No Do you think of yourself as: straight/heterosexual Gender Identity: female Exam Constitutional Vital Signs, click to edit/add: Last Vital Signs Temp 97.3 F L 11/03/24 16:28 Pulse 94 H 11/03/24 19:00 Resp 20 11/03/24 19:00 BP 123/65 11/03/24 18:30 Pulse Ox 96 11/03/24 19:00 Course Vital Signs Vital signs: Vital Signs Temperature 97.3 F L 11/03/24 16:28 Pulse Rate 102 H 11/03/24 16:28 Respiratory Rate 16 11/03/24 16:28 Blood Pressure 135/75 11/03/24 16:28 Pulse Oximetry 98 11/03/24 16:28 Temperature 97.3 F L 11/03/24 16:28 Pulse Rate 94 H 11/03/24 19:00 Respiratory Rate 20 11/03/24 19:00 Blood Pressure 123/65 11/03/24 18:30 Pulse Oximetry 96 11/03/24 19:00 Medical Decision Making MDM Narrative Medical decision making narrative: Patient was placed on property assessment monitor and EKG obtained. Blood drawn and sent for evaluation. Urine was ordered to be sent for testing. she was ordered to receive a liter of normal saline IV fluid. She was found to have slightly decreased magnesium so we repleted that through the IV. The rest of her blood tests did not reveal anything worrisome. She was given ultram for pain - which she localized to the right forearm and left bu ttock. ED nurse dressed the left buttock decubitus ulcer with topical A&D ointment and applied a padding bandage to the area. Small amount of urine obtained by straight cath - it shows UTI but she is on Abx - will await urine culture results. Patient and spouse informed of results. . ED attending note: This patient was signed out to me at shift change pending reevaluation and trial of ambulation. The patient was brought to emergency department for decreasing p.o. intake over the last several days. She has recently been treated for urinary tract infections. She was admitted to this facility recently for UTI as well. According to the nurse taking care of her her daughter is considering a hospice consult as she has continued to fail at home. She has a history of Parkinson's disease. She has multiple skin sores and ulcers. The patient's would like to take her home however she was unable to ambulate in the emergency department in light of her UTIs, electrolyte abnormalities and weakness she will be admitted for observation. She was given a dose of IV Rocephin and IV calcium gluconate for the low calcium at 7.0. Case was discussed with the hospitalist and she is excepted for admission, observation status with recommendation for hospice consult while admitted if possible Lab Data Labs: Lab Results 11/03/24 11/03/24 Range/Units 16:38 17:34 WBC 8.6 (4.0-11.0) 10^3/uL RBC 3.94 L (4.20-5.40) 10^6/uL Hgb 11.8 L (12.0-16.0) g/dL Hct 37.6 (36.0-48.0) % MCV 95.4 (81.0-99.0) fL MCH 29.9 (26.7-34.0) pg MCHC 31.4 (29.9-35.2) g/dL RDW 15.9 H (11.0-15.0) % Plt Count 300 (150-450) 10^3/uL MPV 8.8 L (9.5-13.5) fL Neut % (Auto) 72.1 (43.0-75.0) % Lymph % (Auto) 19.9 L (20.5-60.0) % [place] % (Auto) 6.3 (1.7-12.0) % Eos % (Auto) 1.0 (0.9-7.0) % Baso % (Auto) 0.5 (0.2-2.0) % Neut # (Auto) 6.2 (1.4-6.5) 10^3/uL Lymph # (Auto) 1.7 (1.2-3.8) 10^3/uL [place] # (Auto) 0.5 (0.3-0.8) 10^3/uL Eos # (Auto) 0.1 (0.0-0.7) 10^3/uL Baso # (Auto) 0.0 (0.0-0.1) 10^3/uL Abs Immat Gran (auto) 0.02 (0.00-0.03) 10^3/uL Imm/Tot Granulo (auto) 0.2 (0.0-0.5) % Sodium 145 (136-145) mmol/L Potassium 3.7 (3.5-5.1) mmol/L Chloride 105 (98-107) mmol/L Carbon Dioxide 30.7 (21.0-32.0) mmol/L Anion Gap 13.0 BUN 21.0 H (7.0-18.0) mg/dL Creatinine 0.95 (0.55-1.02) mg/dL Est GFR ( Amer) >60 (>=60 mL/min/1.73m^2) Est GFR (Non-Af Amer) 56 L (>=60 mL/min/1.73m^2) BUN/Creatinine Ratio 22.1 Glucose 98 (74-106) mg/dL Lactate 1.9 (0.4-2.0) mmol/L Calcium 7.0 L (8.5-10.1) mg/dL Phosphorus 4.9 H (2.6-4.7) mg/dL Magnesium 1.7 L (1.8-2.4) mg/dL Total Bilirubin 0.4 (0.2-1.0) mg/dL AST 34 (15-37) U/L ALT 24 (14-59) U/L Alkaline Phosphatase 60 (46-116) U/L Troponin I High Sens 5.0 (4.0-51.3) pg/mL NT-Pro-B Natriuret Pep 928.0 (<=1800.0) pg/mL Total Protein 7.2 (6.4-8.2) g/dL Albumin 3.1 L (3.4-5.0) g/dL Globulin 4.1 g/dL Albumin/Globulin Ratio 0.8 Urine Color Lt. yellow (YELLOW) Urine Clarity Clear (CLEAR) Urine pH 7.5 (5.0-9.0) Ur Specific [place] 1.020 (1.005-1.025) Urine Protein 30 A (NEG/TRACE) mg/dL Urine Glucose (UA) Negative (NEGATIVE) mg/dL Urine Ketones 15 A (NEGATIVE) mg/dL Urine Occult Blood Trace-i (NEGATIVE) Urine Nitrite Negative (NEGATIVE) Urine Bilirubin Negative (NEGATIVE) Urine Urobilinogen 0.2 (0.2-1.0) EU/dL Ur Leukocyte Esterase Small A (NEGATIVE) Urine RBC 2-5 A (0-2) #/HPF Urine WBC 10-20 A (NONE SEEN) #/HPF Ur Squamous Epith Cells Few A (NONE/RARE) #/LPF Urine Crystals None seen (None Seen) #/HPF Urine Bacteria Trace A (NONE SEEN) #/HPF Urine Casts None seen (NONE SEEN) #/LPF Urine Mucus None seen (NONE SEEN) Ur Culture Indicated? Yes Discharge Plan Discharge Chief Complaint: Weakness Clinical Impression: Hypomagnesemia, Weakness, Decubitus skin ulcer, UTI (urinary tract infection), Failure to thrive in adult Patient Disposition: Admitted as Observation Time of Disposition Decision: 19:46 Condition: Fair Prescriptions / Home Meds: No Action acetaminophen 325 mg Tablet 650 mg PO Q4H PRN (Reason: Pain 1-4) 15 Days Qty: 30 0RF levothyroxine 88 mcg tablet 88 mcg PO DAILY Qty: 30 0RF calcitriol 0.25 mcg capsule 0.25 mcg PO QDAY magnesium oxide 400 mg (241.3 mg magnesium) Tablet 400 mg PO QD Qty: 30 11RF calcium carbonate 200 mg calcium (500 mg) Tablet,Chewable 400 mg PO ACHS Qty: 100 11RF cefdinir 300 mg capsule 600 mg PO DAILY Qty: 20 0RF atorvastatin 20 mg tablet 20 mg PO DAILY gabapentin 300 mg capsule 600 mg PO BID pramipexole 0.25 mg tablet 0.25 mg PO BID trihexyphenidyl 2 mg tablet 2 mg PO BID Print Language: [place] Referrals: Seema Sutherland [employer] [Primary Care Provider] - 1 week
[2024-11-03] MEDS: 0.9 % SODIUM CHLORIDE 1,000 ML 999 ML IV (16:54)
[2024-11-03 17:05] LABS: Lactate/Lactic Acid 1.9 mmol/L (0.4-2.0)
[2024-11-03 17:14] LABS: Alanine Aminotransferase 24 U/L (14-59); Albumin Globulin Ratio 0.8; Albumin Level 3.1 g/dL (3.4-5.0); Alkaline Phosphatase 60 U/L (46-116); Aspartate Amino Transferase 34 U/L (15-37); BUN Creatinine Ratio 22.1; Bilirubin Total 0.4 mg/dL (0.2-1.0); Carbon Dioxide 30.7 mmol/L (21.0-32.0); Chloride 105 mmol/L (98-107); Estimated GFR (African America >60 (>=60 mL/min/1.73m^2); Estimated GFR (Non-African Ame 56 (>=60 mL/min/1.73m^2); Globulin 4.1 g/dL; Glucose 98 mg/dL (74-106); Magnesium 1.7 mg/dL (1.8-2.4); Phosphorus 4.9 mg/dL (2.6-4.7); Potassium 3.7 mmol/L (3.5-5.1); Sodium 145 mmol/L (136-145); Total Protein 7.2 g/dL (6.4-8.2)
[2024-11-03 17:41] LABS: Bilirubin Urine NEGATIVE (NEGATIVE); Blood Urine TRACE-I (NEGATIVE); Clarity Urine CLEAR (CLEAR); Color Urine LT. YELLOW (YELLOW); Glucose Urine UA NEGATIVE (NEGATIVE); Ketones Urine 15 mg/dL (NEGATIVE); Leukocyte Esterase Urine SMALL (NEGATIVE); Nitrite Urine NEGATIVE (NEGATIVE); Protein Urine 30 mg/dL (NEG/TRACE); Urine Microscopic Indicated YES; Urobilinogen Urine 0.2 EU/dL (0.2-1.0); pH Urine 7.5 (5.0-9.0)
[2024-11-03 17:42] LABS: Bacteria Urine TRACE #/HPF (NONE SEEN); Cast Seen? NONE SEEN #/LPF (NONE SEEN); Crystals Seen? None Seen #/HPF (None Seen); Mucus Urine NONE SEEN (NONE SEEN); Squamous Epithelial Cell Urine FEW #/LPF (NONE/RARE); Urine Culture Indicated YES
[2024-11-03] MEDS: MAGNESIUM SULFATE IN WATER 2 GM/50 ML PREMIX IV (18:04)
[2024-11-03] MEDS: TRAMADOL HCL 50 MG TABLET PO (18:04)
--- NOTE | 2024-11-03 19:16 | PC.NURSE ---
Attempted to get pt OOB. Place Change Roof Bolter allowed for much slower response time, however, pt was unable to bear weight.
[2024-11-03] MEDS: CEFTRIAXONE 1,000 MG in 0.9 % SODIUM CHLORIDE 50 ML 100 MG IV (20:10)
[2024-11-03] MEDS: CALCIUM GLUCONATE 1,000 MG/10 ML VIAL 1000 MG IVP (20:10)
[2024-11-03] MEDS: 0.9 % SODIUM CHLORIDE 1,000 ML 100 ML IV (22:27)
[2024-11-03] MEDS: ACETAMINOPHEN 325 MG TABLET 650 MG PO (23:35)
[2024-11-03] MEDS: TEMAZEPAM 15 MG CAPSULE PO (23:36)
[2024-11-04 03:36] VITALS: BP 123/72; PULSE 83; TEMP 36.3; O2SAT 99
[2024-11-04 05:59] LABS: Basophils Percent Auto 0.6 % (0.2-2.0); Eosinophils Absolute Auto 0.2 10^3/uL (0.0-0.7); Eosinophils Percent Auto 3.4 % (0.9-7.0); Hematocrit 31.3 % (36.0-48.0); Hemoglobin 9.7 g/dL (12.0-16.0); Immature Granulocytes Abs Auto 0.01 10^3/uL (0.00-0.03); Immature Granulocytes Pct Auto 0.2 % (0.0-0.5); Lymphocytes Absolute Auto 1.9 10^3/uL (1.2-3.8); Mean Corpuscular Hemoglobin 29.7 pg (26.7-34.0); Mean Corpuscular Volume 95.7 fL (81.0-99.0); Mean Platelet Volume 8.7 fL (9.5-13.5); Monocytes Absolute Auto 0.4 10^3/uL (0.3-0.8); Monocytes Percent Auto 8.9 % (1.7-12.0); Neutrophils Absolute Auto 2.2 10^3/uL (1.4-6.5); Neutrophils Percent Auto 46.9 % (43.0-75.0); Platelet Count 225 10^3/uL (150-450); Red Blood Count 3.27 10^6/uL (4.20-5.40); Red Cell Distribution Width 15.7 % (11.0-15.0); White Blood Count 4.7 10^3/uL (4.0-11.0)
[2024-11-04 06:10] LABS: Influenza Virus A Antigen Negative; Influenza Virus B Antigen Negative; Internal Control Within Normal Limits; SARS-CoV-2 Ag POSITIVE (NEGATIVE)
[2024-11-04 06:20] LABS: Alanine Aminotransferase 19 U/L (14-59); Albumin Globulin Ratio 0.7; Albumin Level 2.4 g/dL (3.4-5.0); Alkaline Phosphatase 49 U/L (46-116); Anion Gap 12.6; Aspartate Amino Transferase 29 U/L (15-37); BUN Creatinine Ratio 19.2; Bilirubin Total 0.4 mg/dL (0.2-1.0); Calcium 6.4 mg/dL (8.5-10.1); Carbon Dioxide 27.1 mmol/L (21.0-32.0); Chloride 107 mmol/L (98-107); Estimated GFR (African America >60 (>=60 mL/min/1.73m^2); Estimated GFR (Non-African Ame >60 (>=60 mL/min/1.73m^2); Globulin 3.4 g/dL; Glucose 74 mg/dL (74-106); Magnesium 1.9 mg/dL (1.8-2.4); Potassium 3.7 mmol/L (3.5-5.1); Sodium 143 mmol/L (136-145); Total Protein 5.8 g/dL (6.4-8.2)
[2024-11-04 08:30] VITALS: BP 114/72; PULSE 92; TEMP 36.7; O2SAT 94
[2024-11-04] MEDS: GABAPENTIN 300 MG CAPSULE 600 MG PO ×2 (09:22→20:29)
[2024-11-04] MEDS: ACETAMINOPHEN 325 MG TABLET 650 MG PO ×3 (09:22→20:29)
[2024-11-04] MEDS: TRIHEXYPHENIDYL HCL 2 MG TABLET PO ×2 (09:22→20:28)
[2024-11-04] MEDS: PRAMIPEXOLE 0.125 MG TABLET 0.25 MG PO ×2 (09:22→20:28)
[2024-11-04] MEDS: ENOXAPARIN SODIUM 30 MG/0.3 ML SYRINGE SUBQ (09:23)
[2024-11-04] MEDS: CALCIUM CARBONATE 500 MG (200MG ELEMENTAL) TAB CHEW PO ×4 (09:23→20:29)
[2024-11-04] MEDS: 0.9 % SODIUM CHLORIDE 1,000 ML 100 ML IV ×2 (09:28→20:31)
--- NOTE | 2024-11-04 10:04 | CM.NOTE ---
Rounds made with Dr. Youngblood, assessed pt to develop plan of care. Dr. Youngblood will reach out to pt's to discuss plan of care and possible Hospice consult.
[2024-11-04] MEDS: 0.9 % SODIUM CHLORIDE 1,000 ML 1000 ML IV (10:47)
--- NOTE | 2024-11-04 11:52 | P.HP_ITS ---
HPI H&P: HPI History of Present Illness Chief complaint: FTT UTI WEAKNESS Hypocalcemia Narrative: 83 y o f with hx of parkinson, recurrent UTI presented to ED for generalized weakness, poor PO intake for past few days. She lives at home with her . Patient currenty on oral abx for UTI. She has had multiple admissions in past year for dehydration, UTI and has had progressive decline in her functional status. Work up in ED was consistent with dehydration and UTI. She also tested positive for COVID. She was admitted overnight and was started on IV rocephin and IV Fluids. She denies any resp symptoms. Patient is extremely lethargic and can barely get a word out during conversation. She appears cachectic with evidence of severe dehydration and can barely move due to severe generalized weakness. Hospice consulted as per family's request. Opioid HPI Opioid Management Most Recent Pain and Opioid Data: Last Pain Scale 4 11/04/24 10:47 11/04/24 Last Pain Intensity 0 08/26/24 13:56 08/26/24 Last Pain Assessment 11/04/24 10:52 Last MAR Pain Assessment 11/04/24 10:47 Last ORT Total Score 0 11/03/24 21:04 11/03/24 Last ORT Risk Category Low Risk 11/03/24 21:04 11/03/24 Review of Systems ROS Status of ROS 10 or more systems reviewed and unremark able except as noted in history and below [facility] Medical History Moderate protein malnutrition ?E44.0 - Moderate protein-calorie malnutrition (ICD-10) Malnutrition ?E46 - Unspecified protein-calorie malnutrition (ICD-10) Hypocalcemia ?E83.51 - Hypocalcemia (ICD-10) Situational anxiety ?F41.8 - Other specified anxiety disorders (ICD-10) Coarse tremors ?G25.2 - Other specified forms of tremor (ICD-10) Hypothyroid ?E03.9 - Hypothyroidism, unspecified (ICD-10) Chronic pain disorder ?G89.4 - Chronic pain syndrome (ICD-10) HLD (hyperlipidemia) ?E78.5 - Hyperlipidemia, unspecified (ICD-10) CAD (coronary artery disease) ?I25.10 - Atherosclerotic heart disease of [place] coronary artery without angina pectoris (ICD-10) Parkinson disease ?G20.A1 - Parkinson's disease without dyskinesia, without mention of fluctuations (ICD-10) High cholesterol ?E78.00 - Pure hypercholesterolemia, unspecified (ICD-10) CVA (cerebral vascular accident) ?I63.9 - Cerebral infarction, unspecified (ICD-10) Surgical History History of bowel resection ?Z90.49 - Acquired absence of other specified parts of digestive tract (ICD-1 0) H/O heart artery stent ?Z95.5 - Presence of coronary angioplasty implant and graft (ICD-10) Family History Father Family history of myocardial infarction Social History (Updated 11/03/24 @ 21:37 by Dorie Rubio RN) Within the past year, how often did you have a drink containing alcohol: never Within the past year, how often did you have six or more drinks on one occasion: never Score interpretation: A score less than 3 is consistent with normal alcohol consumption. Smoking status: Never smoker Second hand tobacco smoke exposure: No Non-prescribed substance use: denies use Previous occupational history: Retired from [employer] Known occupational exposures/hazards: No Highest level of school completed/degree received: high school graduate Are you now , , , , never or living with a partner: In a typical week, how many times do you talk on the telephone with family, friends, or neighbors: 3 or more times per week How often do you get together with friends or relatives: twice per week How often do you attend islam or advent services: 4 or more times per year Do you belong to any clubs or organizations such as islam groups unions, fraternal or athletic groups, or school groups: no Total score: 3 Score interpretation: A score of greater than or equal to 2 indicates the lowest level of social isolation. Little interest or pleasure in doing things: not at all Feeling down, depressed, or hopeless: not at all Feel stressed/tense/nervous/anxious/difficulty sleeping: not at all Due to disability, difficulty making decisions: No Do you think of yourself as: straight/heterosexual Gender Identity: female Meds Home Medications and Allergies Home Medications ?Medication ?Instructions ?Recorded ?Confirmed ?Type gabapentin 300 mg capsule 600 mg PO BID 08/07/24 11/03/24 History pramipexole 0.25 mg tablet 0.25 mg PO BID 08/07/24 11/03/24 History trihexyphenidyl 2 mg tablet 2 mg PO BID 08/07/24 11/03/24 History acetaminophen 325 mg tablet 650 mg (2 x 325 mg) PO Q4H PRN 08/28/24 11/03/24 Rx Pain 1-4 15 days #30 tabs calcium carbonate 400 mg (2 x 200 mg calcium (500 10/29/24 11/03/24 Rx mg)) PO ACHS #100 tabs cefdinir 300 mg capsule 600 mg (2 x 300 mg) PO DAILY #20 10/29/24 11/03/24 Rx caps Allergies Allergy/AdvReac Type Severity Reaction Status Date / Time No Known Drug Allergies Allergy Verified 11/03/24 16:28 Exam Constitutional Vital Signs, click to edit/add: Last Vital Signs Temp 98.1 F 11/04/24 08:30 Pulse 92 H 11/04/24 08:30 Resp 18 11/04/24 08:30 BP 114/72 11/04/24 08:30 Pulse Ox 94 L 11/04/24 08:30 O2 Del Method Room Air 11/04/24 08:30 Common normals: no apparent distress General appearance: lethargic, ill appearing and frail appearing Nutritional appearance: cachectic [facility] Common normals: normocephalic and head/scalp atraumatic Other: bitemporal wasting, sunken eyes. Respiratory Common normals: normal respiratory effort, no use of accessory muscles and clear to auscultation bilaterally Cardio Common normals: regular rate, regular rhythm, S1 normal heart sound and S2 normal heart sound GI Common normals: Normal to inspection, nondistended, normoactive bowel sounds present, soft to palpation and non-tender Extremity Other: muscle wasting, generalized weakness. Neuro Common normals: oriented x3, moves all extremities, no focal motor deficits and no sensory deficits noted Psych Common normals: mental status grossly normal and thought process normal Results Labs Labs: Short CBC 11/03/24 11/04/24 Range/Units 16:38 05:50 WBC 8.6 4.7 (4.0-11.0) 10^3/uL Hgb 11.8 L 9.7 L (12.0-16.0) g/dL Hct 37.6 31.3 L (36.0-48.0) % Plt Count 300 225 (150-450) 10^3/uL BMP 11/03/24 11/04/24 16:38 05:50 Sodium 145 143 Potassium 3.7 3.7 Chloride 105 107 Carbon Dioxide 30.7 27.1 BUN 21.0 H 14.0 Creatinine 0.95 0.73 Glucose 98 74 Calcium 7.0 L 6.4 L Liver Function 11/03/24 11/04/24 Range/Units 16:38 05:50 Total Bilirubin 0.4 0.4 (0.2-1.0) mg/dL AST 34 29 (15-37) U/L ALT 24 19 (14-59) U/L Alkaline Phosphatase 60 49 (46-116) U/L Albumin 3.1 L 2.4 L (3.4-5.0) g/dL Urine 11/03/24 Range/Units 17:34 Urine Color Lt. yellow (YELLOW) Urine Clarity Clear (CLEAR) Urine pH 7.5 (5.0-9.0) Ur Specific [place] 1.020 (1.005-1.025) Urine Protein 30 A (NEG/TRACE) mg/dL Urine Glucose (UA) Negative (NEGATIVE) mg/dL Assessment and Plan Assessment and Plan (1) COVID-19: (2) UTI (urinary tract infection): Qualifiers: Urinary tract infection type: acute cystitis Hematuria presence: without hematuria Qualified Code(s): N30.00 - Acute cystitis without hematuria (3) Failure to thrive in adult: (4) Severe malnutrition: (5) Hypothyroid: Qualifiers: Hypothyroidism type: unspecified Qualified Code(s): E03.9 - Hypothyroidism, unspecified (6) HLD (hyperlipidemia): Qualifiers: Hyperlipidemia type: unspecified Qualified Code(s): E78.5 - Hyperlipidemia, unspecified (7) Parkinson disease: Qualifiers: Dyskinesia presence: with dyskinesia Fluctuating manifestations: without fluctuating manifestations Qualified Code(s): G20.B1 - Parkinson's disease with dyskinesia, without mention of fluctuations (8) High cholesterol: Plan Generalized weakness likely sec to UTI and COVID. Failure to thrive, severe PCM due to Parkinson. Has had multiple admissions. Patient appears cachectic in appearance, has BMI of only 16. On IVF for dehydration, Rocephin for UTI. Added ensure/prostate for malnutrition. Resume patient's home medications for Parkinson, HLD, hypothyroidism. Hospice consulted. Awaiting their consulted. PT/OT ordered. Urinary Catheter Management Urinary Catheter Management Pure Wick: Cath placed during this visit: no
--- NOTE | 2024-11-04 11:54 | SWNOTE1 ---
LAN received a call from Alisa at [facility]. Daughter called [facility] and they are looking for information to be sent. SW to call them back. SW called pt's . Pt's is aware that daughter called [facility] and they would like to speak hospice. SW asked permission to send [facility] information. in agreement. SW advised that they can meet with hospice at hospital. in agreement. SW let him know that SW will send information and they will call him to coordinate a time. He voiced understanding. SW let doctor know. Referral sent to [facility]. Referral included face sheet, ED note, H&P, provider notes, case management report, wound consult, nursing notes, diagnostic imaging, med list, DNR order, and Hospice order.
--- NOTE | 2024-11-04 11:57 | SWNOTE1 ---
Important Message from [employer] reviewed and discussed with patient's over the phone. Pt's , Alfredo, verbalized understanding and SW signed the form that it was reviewed. Original placed in pt's room and copy placed in patient?s chart.
--- NOTE | 2024-11-04 11:58 | SWNOTE1 ---
SW to review [employer] form with pt or once arrives. Pt is in Observation no inpatient.
[2024-11-04] MEDS: ENSURE ORIGINAL 237 ML BOTTLE PO ×2 (12:10→20:29)
[2024-11-04] MEDS: PROSTAT 15 GM PROTEIN/100 CAL 30 ML LIQUID PACKET PO ×2 (12:10→20:29)
--- NOTE | 2024-11-04 12:11 | SWNOTE1 ---
No DNR paperwork on file.
[2024-11-04 12:19] VITALS: BP 134/67; PULSE 65; TEMP 36.4; O2SAT 96
--- NOTE | 2024-11-04 14:13 | SWNOTE1 ---
SW stopped in room and pt's , daughter, and [employer] consultant was in room as well. SW brought hospice the information that was faxed over and SW to stop back in later to check in with hospice and family.
--- NOTE | 2024-11-04 15:53 | SWNOTE1 ---
LAN spoke with [place] personnel consultant and meeting went well and family will be signing pt on to hospice. Plan is for dc tomorrow. LAN spoke to pt's and usually he transports her home, but unsure if pt will be safe to do this. SW to assess situation in the morning in regards to transportation. SW updated nurse and doctor.
[2024-11-04] MEDS: TEMAZEPAM 15 MG CAPSULE PO (20:29)
[2024-11-04] MEDS: CEFTRIAXONE 1,000 MG in 0.9 % SODIUM CHLORIDE 50 ML 100 MG IV (20:31)
[2024-11-04 22:00] VITALS: BP 129/59; PULSE 59; TEMP 36.4; O2SAT 97
[2024-11-04 23:17] VITALS: O2SAT 96
[2024-11-05 04:30] VITALS: O2SAT 96
[2024-11-05 05:41] VITALS: BP 131/76; PULSE 75; TEMP 36.5; O2SAT 98
[2024-11-05] MEDS: 0.9 % SODIUM CHLORIDE 1,000 ML 100 ML IV (05:52)
[2024-11-05] MEDS: ENSURE ORIGINAL 237 ML BOTTLE PO (08:50)
[2024-11-05] MEDS: ACETAMINOPHEN 325 MG TABLET 650 MG PO (08:51)
[2024-11-05] MEDS: PROSTAT 15 GM PROTEIN/100 CAL 30 ML LIQUID PACKET PO (08:51)
[2024-11-05] MEDS: ENOXAPARIN SODIUM 30 MG/0.3 ML SYRINGE SUBQ (08:51)
[2024-11-05] MEDS: PRAMIPEXOLE 0.125 MG TABLET 0.25 MG PO (08:52)
[2024-11-05] MEDS: CALCIUM CARBONATE 500 MG (200MG ELEMENTAL) TAB CHEW PO (08:52)
[2024-11-05] MEDS: GABAPENTIN 300 MG CAPSULE 600 MG PO (08:52)
[2024-11-05] MEDS: TRIHEXYPHENIDYL HCL 2 MG TABLET PO (08:55)
--- NOTE | 2024-11-05 10:13 | CM.NOTE ---
Rounds made with Dr. Youngblood, pt will discharge to home today with Hospice.
--- NOTE | 2024-11-05 10:58 | PM.DS1 ---
DS: Providers Provider Date of admission: 11/03/24 20:54 Primary care physician: Seema Sutherland NP Admitting clinician: Shaikh Ford Attending physician on admission: Shaikh Ford Consults: 11/04/24 07:25 Physical Therapy Eval and Treat Routine Reason for consultation: Generalized weakness 11/04/24 11:52 Consult to Hospice Routine Reason for consultation: Goal of care Attending physician on discharge: Shaikh Ford Discharging clinician: Shaikh Ford Anticipated date of discharge: 11/05/24 DS: Diagnosis Discharge Diagnosis (1) COVID-19: (2) UTI (urinary tract infection): Qualifiers: Hematuria presence: without hematuria Urinary tract infection type: acute cystitis Qualified Code(s): N30.00 - Acute cystitis without hematuria (3) Failure to thrive in adult: (4) Severe malnutrition: (5) Hypothyroid: Qualifiers: Hypothyroidism type: unspecified Qualified Code(s): E03.9 - Hypothyroidism, unspecified (6) HLD (hyperlipidemia): Qualifiers: Hyperlipidemia type: unspecified Qualified Code(s): E78.5 - Hyperlipidemia, unspecified (7) Parkinson disease: Qualifiers: Dyskinesia presence: with dyskinesia Fluctuating manifestations: without fluctuating manifestations Qualified Code(s): G20.B1 - Parkinson's disease with dyskinesia, without mention of fluctuations (8) High cholesterol: DS: Summary Hospital Course Hospital Course: 83 y o f with hx of parkinson, recurrent UTI presented to ED for generalized weakness, poor PO intake for past few days. She has had multiple admissions in past year for dehydration, UTI and has had progressive decline in her functional status. Work up in ED was consistent with dehydration and UTI. She also tested positive for COVID. She was admitted overnight and was started on IV rocephin and IV Fluids. Hospice consulted for failure to thrive. Patient will be discharged today to home with home hospice. Time Spent with Patient Time attestation: Total time spent providing and/or coordinating discharge services: Time spent: greater than 30 minutes Exam Constitutional Vital Signs, click to edit/add: Last Vital Signs Temp 97.7 F 11/05/24 05:41 Pulse 75 11/05/24 05:41 Resp 18 11/05/24 05:41 BP 131/76 11/05/24 05:41 Pulse Ox 98 11/05/24 05:41 O2 Del Method Room Air 11/05/24 05:41 Common normals: no apparent distress General appearance: lethargic, ill appearing and frail appearing Nutritional appearance: cachectic HENMT Other: bitemporal wasting, sunken eyes. Respiratory Common normals: normal respiratory effort, no use of accessory muscles and clear to auscultation bilaterally Cardio Common normals: regular rate, regular rhythm, S1 normal heart sound and S2 normal heart sound GI Common normals: Normal to inspection, nondistended, normoactive bowel sounds present, soft to palpation and non-tender Extremity Other: muscle wasting, generalized weakness. Neuro Common normals: oriented x3, moves all extremities, no focal motor deficits and no sensory deficits noted Psych Common normals: mental status grossly normal and thought process normal Discharge Plan Discharge Disposition: Hospice - Home Condition: Fair Discharge Medications: Continued calcium carbonate 200 mg calcium (500 mg) Tablet,Chewable 400 mg PO ACHS Qty: 100 11RF acetaminophen 325 mg Tablet 650 mg PO Q4H PRN (Reason: Pain 1-4) 15 Days Qty: 30 0RF cefdinir 300 mg capsule 600 mg PO DAILY Qty: 10 0RF gabapentin 300 mg capsule 600 mg PO BID pramipexole 0.25 mg tablet 0.25 mg PO BID trihexyphenidyl 2 mg tablet 2 mg PO BID Activity: increase activity as tolerated Diet: advance to your usual diet Print Language: Hungarian Forms: Portal Instructions
[2024-11-05 10:59] VITALS: O2SAT 96
--- NOTE | 2024-11-05 12:51 | SWNOTE1 ---
Pt can dc home with today with [facility]. LAN spoke to about transport. He voiced he will pull in to the garage and she has 3 steps to get in to the home and has railings to use. LAN advised pt's that she has not walked yet, but will have therapy work with her to see how she does. SW spoke with therapy and they will assess pt. LAN spoke to therapy afterwards and for safety stretcher is recommended. LAN called while in room with pt. SW expressed for safety an ambulance is recommended. At that time pt voiced to SW to tell to get him butt here and she is ready to go home. She voiced to SW that she will be able to use railings walk in the home. Pt's voiced he will come and get her and be here within the hour. LAN updated nursing. SW did have a voicemail from therapy and they did recommend she gets some therapy at home with hospice as well. LAN did let [facility] know this and faxed over the dc med rec to [facility].
== END 2024-11-05 13:04 | disposition hospice, home (50) ==
LOC: ER 19:48 → MS 11-05 07:08
PROVIDERS: Emergency Medicine; Registered Nurse; Admitting Provider Internal Medicine; Emergency Provider Emergency Medicine; PCP Nurse Practitioner; Visit Provider Internal Medicine
DX: E86.0 Dehydration (principal); Z68.1 Body mass index [BMI] 19.9 or less, adult; E83.42 Hypomagnesemia; R62.7 Adult failure to thrive; R53.1 Weakness; U07.1 COVID-19; G20.A1 Parkinson's disease without dyskinesia, without mention of fluctuations; Z87.440 Personal history of urinary (tract) infections; L89.322 Pressure ulcer of left buttock, stage 2; R64 Cachexia; Z90.49 Acquired absence of other specified parts of digestive tract; Z95.5 Presence of coronary angioplasty implant and graft; N30.00 Acute cystitis without hematuria; E43 Unspecified severe protein-calorie malnutrition; E03.9 Hypothyroidism, unspecified; E78.00 Pure hypercholesterolemia, unspecified
CPT/HCPCS: 36415; 80053; 81001; 83605; 83735; 83880; 84100; 84484; 85025; 87040; 87086; 87502; 87804; 87811; 93005; 94761; 96361; 96365; 96366; 96367; 96372; 96375; 97161; 97530; 99285; G0378; J0612; J0696; J1650; J3475